=== PATIENT | male | born 1970 | race Caucasian/White ===

== ENCOUNTER 2018-05-28 22:27 | Emergency (ER) | payer BC, SELFPAY ==
[2018-05-28 22:28] VITALS: BP 149/96; PULSE 76; RESP 18; TEMP 35.4; O2SAT 98; BMI 31.7
--- NOTE | 2018-05-28 22:32 | EKG12_ITS ---
Test Reason : CP Blood Pressure : / mmHG Vent. Rate : 078 BPM Atrial Rate : 078 BPM P-R Int : 248 ms QRS Dur : 082 ms QT Int : 364 ms P-R-T Axes : 041 050 055 degrees QTc Int : 414 ms Sinus rhythm with 1st degree A-V block Otherwise normal ECG Confirmed by GREG JONES, ZOHRA ([id number]), food editor SARAH BOLTON ([id number]) on 05/31/2018 11:07:07 AM Referred By: Confirmed By:ZOHRA GARZA MD
--- NOTE | 2018-05-28 22:40 | RAD_ITS ---
STUDY: X-RAY CHEST REASON FOR EXAM: Male, 47 years old. Nausea vomiting fever TECHNIQUE: Single AP portable view of the chest. COMPARISON: January 16, 2016 chest x-ray FINDINGS: There is a spinal catheter demonstrated T8-T9. The lungs are clear and expanded. There is no demonstrated pleural abnormality. Normal size heart. Normal mediastinum and brenda. Normal visualized pulmonary arteries. Normal visualized aortic arch and descending thoracic aorta. Normal visualized thoracic spine. Normal visualized ribs, clavicles, and shoulders. There is no demonstrated abnormality of the visualized soft tissue structures of the upper abdomen. RAD/Chest 1 View (Portable) IMPRESSION: No demonstrated acute cardiopulmonary process. Electronically Signed: Sosa Dinero MD at 23:01 EDT Tel , Service support ,
[2018-05-28 23:18] VITALS: BP 149/82; PULSE 73; RESP 14; O2SAT 98
--- NOTE | 2018-05-28 23:26 | ED.DCSUM_ITS ---
- ER Visit Summary Date of Service: 05/28/18 Chief Complaint: Nausea, diarrhea, headache, body aches History of Present Illness: The patient is a 47 M who states he woke this morning with body aches, nausea and dry heaves. He had a couple episodes of diarrhea and complains of a generalized headache. He has not noted a fever. He states he took ibuprofen several hours ago without improvement. Past history is significant for hypertension and kidney stones. Physical Examination: Blood pressure is 149/96, temperature 95.7, heart rate 76, respiratory rate 18, pulse ox 98% on room air. Patient sitting upright in bed no acute distress. He is nontoxic appearing. Head neck examination normal. Heart is regular rate and rhythm. Lungs sounds are clear. Abdomen is soft with mild tenderness in the left lower quadrant. No guarding or rebound. Active bowel sounds are noted throughout. Neuro exam is normal. Test Results: EKG is sinus at 7 8 with no acute ischemia. Portable chest x-ray shows no acute process. CBC was a white count 11.2 with 83% neutrophils. Chemistry studies normal. Troponin negative. Emergency Department Course and Treatment: Patient was given IV fluids along with Toradol, Reglan, and Benadryl. On repeat evaluation patient is significantly improved and is requesting discharge to home. He denies any pain at this time. I discussed with him I believe he has viral syndrome. He is encouraged to increase fluids. He will be given a home pack of Zofran for tonight as needed. Treatment Plan: [] Disposition: Discharge Impression: 1. Viral syndrome 2. Cephalgia, resolved This note was generated with [employer] dictation software. It may contain incorrect words, spelling, and punctuation that were not noted in review of the chart prior to signing ED Disposition - Plan for ED Patient: Disposition: Home or Assisted Living Instructions: ED Cephalgia Unspecified, ED Gastroenteritis Viral Referrals: Barber Cornejo MD [NON-STAFF] - As Needed
[2018-05-28 23:32] LABS: Absolute Lymphocyte Count 1.09 X10^3/ul (0.83-4.51); Absolute Neutrophil Count 9.3 X10^3/uL (2.0-7.7); Basophil# 0.01 X10^3/uL; Basophil% 0.1 % (0-1); Eosinophil# 0.24 X10^3/uL; Eosinophils% 2.1 % (0-5); Hematocrit 45.7 % (40-54); Hemoglobin 15.2 g/dl (13.0-16.5); Lymphocyte # 1.09 X10^3/ul (4.0); Lymphocyte % 9.7 % (19-41); Mean Corp Hgb Conc 33.3 g/gl (32-36); Mean Corpuscular Hgb 30.3 pg (27.0-32.0); Mean Platelet Vol. 10.6 fl (6.2-12.0); Monocyte# 0.56 X10^3/uL; Neutrophil # 9.29 X10^3/uL (2.7-7.7); Neutrophil % 82.9 % (47-70); POSITIVE COUNT NO; POSITIVE DIFFERENTIAL NO; POSITIVE MORPHOLOGY NO; Platelet Count 264 K/mm3 (150-450); RBC Distribution Width CV 13.1 % (11.6-14.6); RBC Distribution Width SD 42.9 fl (35.1-43.9); Red Blood Count 5.02 M/mm3 (4.6-6.2); White Blood Count 11.2 K/mm3 (4.4-11.0)
[2018-05-28] MEDS: Ketorolac 30 MG/ML Syringe IV (23:34)
[2018-05-28] MEDS: Metoclopramide 10 MG/2 ML Vial IV (23:35)
[2018-05-28] MEDS: 0.9% Normal Saline 1,000 ML 1000 ML IV (23:36)
[2018-05-28] MEDS: DiphenhydrAMINE 50 MG/ML Syringe 25 MG IV (23:36)
[2018-05-28 23:49] LABS: Anion Gap 5 (5-15); BUN 18 mg/dL (7-18); BUN/Creat Ratio 18.9 RATIO (10-20); Calcium,Total 8.4 mg/dL (8.5-10.1); Chloride 109 mmol/L (98-107); Creatinine, Serum 0.95 mg/dL (0.70-1.30); EST Glomerular Filtration Rate 89 mL/min (>60); Est Glom Filt Rate - Afr Amer 108 mL/min (>60); Estimated Creatinine Clearance 97.12 ml/min; Glucose 92 mg/dL (74-106); Potassium 3.9 mmol/L (3.5-5.1); Sodium Level 138 mmol/L (136-145)
[2018-05-29 00:06] VITALS: BP 136/82; PULSE 67; PULSE 72; RESP 16; TEMP 36.8; O2SAT 96; O2SAT 98
--- NOTE | 2018-05-29 00:48 | ED.DEP ---
ED Disposition - Plan for ED Patient: Disposition: Home or Assisted Living Instructions: ED Gastroenteritis Viral, ED Cephalgia Unspecified Referrals: Barber Cornejo MD [NON-STAFF] - As Needed
[2018-05-29] MEDS: 0.9% Normal Saline 1,000 ML 150 ML IV (00:50)
[2018-05-29 00:51] VITALS: BP 146/89; PULSE 72; RESP 16; O2SAT 98
[2018-05-29] MEDS: Ondansetron ODT 4 MG Tablet PO (00:57)
== END 2018-05-29 00:57 | disposition home or self-care (01) ==
PROVIDERS: Emergency Provider Emergency Medicine
DX: B34.9 Viral infection, unspecified (principal); R51 Headache; I10 Essential (primary) hypertension; Z72.0 Tobacco use; Z87.442 Personal history of urinary calculi
CPT/HCPCS: 71045; 80048; 84484; 85025; 93005; 96361; 96374; 96375; 99284; J7030; A4216

== ENCOUNTER 2019-03-27 10:56 | Emergency (ER) | payer BC, SELFPAY ==
[2019-03-27 10:57] VITALS: BP 153/99; PULSE 67; RESP 17; TEMP 36.2; O2SAT 98; BMI 32.5
--- NOTE | 2019-03-27 11:35 | RAD_ITS ---
STUDY: X-RAY - RIGHT FOOT CLINICAL: Male, 48 years old. RT LATERAL FOOT PAIN LAST NIGHT WHILE WORKING, PT STATES IT HURTS TO PUT WEIGHT ON IT. PT DENIES INJURY TECHNIQUE: 3 view(s) of the foot. COMPARISON: None. FINDINGS: Normal talus, calcaneus, and tarsal bones. Normal visualized subtalar, talonavicular, calcaneocuboid, tarsal and tarsometatarsal articulations. Normal metatarsi. Normal metatarsophalangeal joint of the great toe. Normal tibial and fibular sesamoid bones. Normal interphalangeal joint of the great toe. Normal phalanges of the great toe. Normal second through fifth metatarsophalangeal joints. Normal interphalangeal joints and phalanges of the lesser toes. The soft tissue structures are unremarkable. RAD/Foot min 3 Views IMPRESSION: Normal x-ray examination of the foot. Electronically Signed: Julio Cesar Denson DO at 12:19 EST Tel , Service support ,
[2019-03-27] MEDS: Ibuprofen 600 MG Tablet PO (11:38)
--- NOTE | 2019-03-27 11:41 | ED.VIS.LOWEX ---
History of Present Illness Chief Complaint: Lower Extremity Injury Informant: Patient Occurred: Days Narrative: Patient is a 48-year-old male with history of untreated hypertension presenting with right foot pain. Patient states he has had some problems with his right foot for the past few years however for the past week he has had worsening pain. Last night while he was working the pain became significantly worse and he could not sleep through the night because the pain was so bad. Patient been taken Tylenol for the pain with no significant relief. The pain is throbbing in nature and does not radiate. It is worse when he tries to move or walk on it. Patient did get new shoes for work because he was having pain. These have not helped. Patient denies any injury. He denies any swelling of his leg. He denies any other complaints at this time. Patient is had multiple surgeries on his left knee and states that he does favor his left leg and seems to put more pressure on his right when doing activities. Past Medical History - Allergies and Home Meds Allergies/Adverse Reactions: Allergies aspirin Adverse Reaction (Verified 03/27/19 10:56) Nausea/Vom/Diarrhea Primary Care Physician: Care Physician,No Primary [Primary Care Provider] - Past Medical History: - - Hypertension Surgical History: - - L knee ACL x 3, R knee serial scopes, Nasal reconstruction, L elbow surgery, R inguinal hernia repair, L hand surery, spinal cord stimulator. Smoking Status: Current every day smoker - Family History Maternal Family History: Reports: No pertinent history Paternal Family History: Reports: No pertinent history Review of Systems General: Denies: Chills, Fever, Sweats Eyes: Denies: Visual changes - bilaterally, Diplopia ENT: Denies: Rhinorrhea, Sore throat Cardiovascular: Denies: Chest pain, Palpitations Respiratory: Denies: Dyspnea, Cough, Dyspnea on exertion Gastrointestinal: Denies: Abdominal pain, Nausea, Vomiting, Diarrhea, Melena, Hematochezia Genitourinary: Denies: Dysuria, Hematuria, Frequency Musculoskeletal: Reports: Extremity Pain - Right foot. Denies: Back pain Skin: Denies: Rash, Wounds Neurological: Denies: Headache, Weakness, Numbness Physical Exam Vital Signs/Narrative: Vital Signs Temp Pulse Resp BP Pulse Ox 03/27/19 10:57 97.2 F L 67 17 153/99 H 98 Inital Vital Signs reviewed: Yes - Extremity Exam Right Knee: Negative for: Deformity, Edema, Hematoma, Limited ROM Right Tib fib: - - No fibular head tenderness. Negative for: Deformity, Edema, Limited ROM Right Foot: Negative for: Deformity, Edema, Hematoma, Limited ROM Right Toe: - - Patient has a 3 cm circumferential area of ecchymosis of the lateral midfoot. He has pinpoint tenderness to palpation at the head of the fifth metatarsal.. Negative for: Deformity, Limited ROM General: Well nourished, Well developed Head: Normocephalic, Atraumatic Eyes: Perrl, EOMI ENT: No Trauma, Moist Mucous Membranes Neck: Nontender, Full ROM Cardiovascular: Regular rate, Regular rhythm, No murmurs Respiratory: No distress, CTA bilaterally, Chest nontender Abdomen: Soft, Nontender, Nondistended, Normal bowel sounds Back: Nontender Skin: Normal color, No rash Neurological: Alert, Oriented x3, Cranial nerves II-XII grossly intact, Normal Strength, Normal Sensation Psychological: Normal affect Diagnostic/Tx/Re-eval Clinical Impression(s) from Imaging Studies Foot X-Ray 03/27/19 11:35 IMPRESSION: Normal x-ray examination of the foot. Electronically Signed: Julio Cesar Denson DO at 12:19 EST Tel , Service support , - Medical Decision Making Patient is evaluated for atraumatic right foot pain. Has had a small amount of bruising. X-ray does not show any acute fracture. Patient is not have any warmth over the foot I do not suspect gout or septic joint. He does not have any obvious deformity. Likely this is a soft tissue injury. Patient is counseled on the risk of occult fracture. He will be referred to [facility] to follow-up with podiatry. Patient will also call his own orthopedics office to see if he has podiatry. He will be placed in a postop shoe for comfort. It is possible that his pain was exacerbated by his new shoes. He is given a work note for today and tomorrow. He is counseled on rice therapy. He started on Motrin for pain and anti-inflammatory treatment. Patient is counseled on signs and symptoms requiring return to the emergency room. Patient verbalizes agreement and understand this plan. Patient discharged home in stable and improved condition. ED Disposition - Plan for ED Patient: Disposition: Home or Assisted Living Diagnosis: Right foot strain Instructions: Sprain Foot Prescriptions: Ibuprofen [Motrin] 600 mg PO Q6H PRN PRN #20 tab PRN Reason: Pain/Inflammation Prescription Printed Referrals: Karena Murphy DPM [STAFF PHYSICIAN] - Riya Anderson DPM [STAFF PHYSICIAN] - Additional Instructions: Please follow-up with podiatry as needed for your foot pain. You been given information for 2 different podiatry group. Treat this with rice therapy, rest, ice, compression and elevation. Take anti-inflammatories as needed. You might need to switch shoes.
== END 2019-03-27 13:25 | disposition home or self-care (01) ==
PROVIDERS: Emergency Provider Emergency Medicine
DX: S96.911A Strain of unspecified muscle and tendon at ankle and foot level, right foot, initial encounter (principal); X58.XXXA Exposure to other specified factors, initial encounter; Y92.9 Unspecified place or not applicable; Y99.9 Unspecified external cause status; F17.200 Nicotine dependence, unspecified, uncomplicated; I10 Essential (primary) hypertension; Z88.6 Allergy status to analgesic agent
CPT/HCPCS: 73630; 99283

== ENCOUNTER 2019-12-07 19:59 | Emergency (ER) | payer SELFPAY ==
[2019-12-07 20:00] VITALS: BP 188/114; PULSE 94; RESP 16; TEMP 36.9; O2SAT 100; BMI 34.2
--- NOTE | 2019-12-07 20:47 | ED.DCSUM_ITS ---
History of Present Illness Chief Complaint: Fever Informant: Patient Narrative: Patient is a 49-year-old previously healthy male who presents to the emergency department for right-sided headache and facial swelling. His initial symptoms started 2 to 3 days ago but have been progressively getting worse. He started to notice some swelling around the right eye. He believes that his vision has gotten slightly blurred as well. He has had a low-grade fever of 99-100 he has been taking Tylenol for this. Initially was giving him good relief with the headache but it is now not treating it. He currently rates the pain as a 9 out of 10. Denies ever having this before in the past. He denies any history of shingles. He has been feeling mildly short of breath denies any significant cough. He is a current every day smoker. He denies any leg swelling or calf pain. No chest pain associated with this. No known sick contacts. He has had a few episodes of diarrhea starting today. No vomiting. He denies any trauma. Past Medical History - Allergies and Home Meds Allergies/Adverse Reactions: Allergies aspirin Adverse Reaction (Verified 12/07/19 20:00) Nausea/Vom/Diarrhea Primary Care Physician: Care Physician,No Primary [Primary Care Provider] - 2 Days Prior records reviewed: Yes Surgical History: - - L knee ACL x 3, R knee serial scopes, Nasal reconstruction, L elbow surgery, R inguinal hernia repair, L hand surery, spinal cord stimulator. Smoking Status: Current every day smoker Drugs: None - Family History Maternal Family History: Reports: No pertinent history Paternal Family History: Reports: No pertinent history Review of Systems General: Reports: Fever. Denies: Chills, Sweats Eyes: Reports: Blurred vision - right. Denies: Visual changes - bilaterally, Diplopia ENT: Denies: Rhinorrhea, Sore throat Cardiovascular: Denies: Chest pain, Palpitations Respiratory: Reports: Dyspnea. Denies: Cough Gastrointestinal: Reports: Diarrhea. Denies: Abdominal pain, Nausea, Vomiting Genitourinary: Denies: Dysuria, Hematuria, Frequency Musculoskeletal: Denies: Back pain, Extremity Pain Skin: Denies: Rash, Wounds Neurological: Reports: Headache. Denies: Weakness, Numbness Physical Exam Vital Signs/Narrative: Vital Signs Temp Pulse Resp BP Pulse Ox 12/07/19 20:00 98.5 F 94 16 188/114 H 100 Inital Vital Signs reviewed: Yes General: Well nourished, Well developed, No Acute Distress Head: Normocephalic, Atraumatic, Tenderness - Tenderness over the right temporal region. This is erythematous. No significant warmth., - - Mild swelling from right temporal region to right orbit. Sclera not injected. No foreign body sensation. Eyes: Perrl, EOMI ENT: Moist mucous membranes, No rhinorrhea Neck: Supple, Nontender Cardiovascular: Regular rate, Regular rhythm, No murmurs Respiratory: No distress, CTA bilaterally, Chest nontender Abdomen: Soft, Nontender, Nondistended, Normal bowel sounds Back: Nontender, Normal Inspection Extremities: Nontender, No edema Skin: Normal color, No rash Neurological: Alert, Oriented x3, Cranial nerves II-XII grossly intact, Normal Strength, Normal Sensation Psychological: Normal affect, Normal Mood Diagnostic/Tx/Re-eval - Medical Decision Making Patient presents the ED for headache, facial swelling as well as shortness of breath. Upon arrival to the emergency department he is hypertensive but otherwise has normal vital signs. Will check basic lab work along with ESR/CRP, EKG and chest x-ray. Patient's lab work did not reveal any significant acute abnormality. ESR within normal limits. His CRP is very mildly elevated. White blood cell count within normal limits. Chest x-ray did not reveal any acute cardiopulmonary abnormality. He got complete relief with a dose of Toradol. States he is feeling much better at this time. I have some concern for facial cellulitis. No evidence of orbital cellulitis given no pain with eye movements. Will cover with Keflex and Bactrim. Given first dose here in the ED. He needs to follow- up with his PCP for recheck. Warning signs and symptoms for which to return to the ED are reviewed with him. He understands and is agreeable this plan. Patient discharged home in stable condition. ED Disposition - Plan for ED Patient: Disposition: Home or Assisted Living Diagnosis: Facial cellulitis, Headache, Dyspnea Instructions: ED Cellulitis, ED Dyspnea Prescriptions: Smz/Tmp Ds [Bactrim Ds] 2 tab PO BID 10 Days #40 tab Prescription Printed Cephalexin [Keflex] 500 mg PO 4X/DAY 10 Days #40 cap Prescription Printed Referrals: Care Physician,No Primary [Primary Care Provider] - 2 Days
[2019-12-07] MEDS: Ketorolac 30 MG/ML Syringe IV (20:55)
[2019-12-07 21:12] LABS: Absolute Lymphocyte Count 3.09 X10^3/uL (0.83-4.51); Absolute Neutrophil Count 5.6 X10^3/uL (2.0-7.7); Basophil# 0.13 X10^3/uL; Basophil% 1.3 % (0-1); Eosinophil# 0.38 X10^3/uL; Eosinophils% 3.8 % (0-5); Hematocrit 44.6 % (40-54); Hemoglobin 15.2 g/dL (13.0-16.5); Lymphocyte # 3.09 X10^3/ul (4.0); Lymphocyte % 30.6 % (19-41); Mean Corp Hgb Conc 34.1 g/dL (32-36); Mean Corpuscular Hgb 30.1 pg (27.0-32.0); Mean Corpuscular Volume 88.3 fL (80-94); Mean Platelet Vol. 10.1 fl (6.2-12.0); Monocyte# 0.91 X10^3/uL; NRBC Flagged by Analyzer 0 % (0-5); Neutrophil # 5.55 X10^3/uL (2.7-7.7); Neutrophil % 54.9 % (47-70); Platelet Count 345 K/mm3 (150-450); RBC Distribution Width CV 12.5 % (11.6-14.6); RBC Distribution Width SD 41.1 fl (35.1-43.9); Red Blood Count 5.05 M/mm3 (4.6-6.2); White Blood Count 10.1 K/mm3 (4.4-11.0)
[2019-12-07 21:19] LABS: Erythrocyte Sedimentation Rate 9 mm/hr (0-20)
[2019-12-07 21:25] LABS: Anion Gap 7 (5-15); BUN 17 mg/dL (7-18); CRP 3.56 mg/L (0.0-3.0); Calcium,Total 8.7 mg/dL (8.5-10.1); Chloride 107 mmol/L (98-107); Creatinine, Serum 1.13 mg/dL (0.70-1.30); EST Glomerular Filtration Rate 73 mL/min (>60); Est Glom Filt Rate - Afr Amer 88 mL/min (>60); Estimated Creatinine Clearance 79.85 ml/min; Glucose 103 mg/dL (74-106); Potassium 3.8 mmol/L (3.5-5.1); Sodium Level 140 mmol/L (136-145)
[2019-12-07 21:54] LABS: Probe Check PASS; Specimen Processing Control PASS
--- NOTE | 2019-12-07 21:54 | RAD_ITS ---
HISTORY: Shortness of breath, fever, headache. EXAM: XR Chest 1 View: COMPARISON: May 28, 2018 FINDINGS: # of images incl. paperwork: 1 Epidural stimulation lead remains Some linear basilar airspace disease on the left is new and likely discoid atelectasis Lungs are clear. Heart is not enlarged. No acute osseous pathology perceived. Pulmonary vascularity is distinct. No effusions. RAD/Chest 1 View (Portable) IMPRESSION: No acute cardiopulmonary disease perceived but for minimal left basilar suspected atelectasis. at 2227 Reported and signed by: Vasiliy Jackson MD Electronically Signed: Vasiliy Jackson MD at 22:26 EDT Tel , Service support ,
[2019-12-07 22:41] VITALS: BP 182/110; PULSE 76; RESP 15; TEMP 37.1; O2SAT 97
[2019-12-07] MEDS: Smz/Tmp Ds Tablet 2 TABLET PO (22:44)
[2019-12-07] MEDS: Cephalexin 250 MG Capsule 500 MG PO (22:44)
== END 2019-12-07 22:51 | disposition home or self-care (01) ==
PROVIDERS: Emergency Provider Emergency Medicine
DX: L03.211 Cellulitis of face (principal); R51 Headache; R06.00 Dyspnea, unspecified; F17.200 Nicotine dependence, unspecified, uncomplicated; Z88.6 Allergy status to analgesic agent
CPT/HCPCS: 71045; 80048; 84484; 85025; 85652; 86140; 87635; 96374; 99284; C9803; A4216; U0003

== ENCOUNTER 2021-06-26 21:01 | Emergency (ER) | payer SELFPAY ==
[2021-06-26 21:02] VITALS: BP 221/99; PULSE 95; RESP 16; TEMP 36.7; O2SAT 97; BMI 34.3
--- NOTE | 2021-06-26 21:28 | CT_ITS ---
EXAM: CT ABDOMEN AND PELVIS WITHOUT INTRAVENOUS CONTRAST CLINICAL INDICATION: PELVIC PAIN AND FREQUENT URINATION X 2 DAYS, TECHNIQUE: Helically acquired images were obtained of the abdomen and pelvis without intravenous contrast. This CT exam was performed using one or more of the following dose reduction techniques: automated exposure control, adjustment of the mA and/or kV according to patient size, and/or use of iterative reconstruction technique. This report was created using [employer] report generation technology. COMPARISON: None. FINDINGS: LOWER THORAX: Unremarkable. Lung bases are clear. No cardiomegaly. No significant pericardial effusion. ABDOMEN: LIVER: Unremarkable. Homogeneous. GALLBLADDER AND BILE DUCTS: Unremarkable. No calcified gallstones. No gallbladder distention or wall edema. No intra- or extrahepatic biliary ductal dilation. PANCREAS: Unremarkable. No focal cystic mass. SPLEEN: Unremarkable. Normal size without focal cystic or solid mass. ADRENALS: Unremarkable. No nodules. KIDNEYS AND URETERS: Punctate calculi in the bilateral kidneys. Normal renal size and position. No hydronephrosis. Left renal cyst. No required imaging follow-up needed given high likelihood of benign nature. STOMACH AND BOWEL: Sigmoid colon diverticulosis with colon wall thickening and pericolonic stranding. No stomach or bowel distention. PELVIS: APPENDIX: No evidence of acute appendicitis. BLADDER: Unremarkable. REPRODUCTIVE: Prostate calcifications. ABDOMEN and PELVIS: INTRAPERITONEAL SPACE: Unremarkable. No ascites or other fluid collection. No free air. BONES/JOINTS: Degenerative changes of the lumbar spine. No suspicious lytic or blastic abnormality. SOFT TISSUES: Unremarkable. No discrete abdominal or pelvic wall hernia. VASCULATURE: Atherosclerosis of the abdominal aorta. Abdominal aorta is non-dilated. LYMPH NODES: Unremarkable. No enlarged lymph nodes. TUBES, LINES AND DEVICES: Neurostimulator device noted. CT/Abdomen/Pelvis without Cont IMPRESSION: 1. Sigmoid diverticulitis. No abscess or pneumoperitoneum. 2. Punctate calculi in the bilateral kidneys. No hydronephrosis or ureteral calculi. Electronically Signed: Kashif Murguia MD ([place]oks) at 22:40 EDT Reading Location ID and State: [facility] / [place] , Service support ,
[2021-06-26] MEDS: Ondansetron 4 MG/2 ML Vial IV (21:47)
[2021-06-26] MEDS: 0.9% Normal Saline 1,000 ML 1000 ML IV (21:48)
[2021-06-26] MEDS: HYDROmorphone 1 MG/ML Syringe IV ×2 (21:48→23:10)
[2021-06-26 21:54] LABS: Bacteria 0 SEEN /hpf (None Seen); Mucous, Urine 0 SEEN /hpf (<or=2+)
[2021-06-26 21:54] LABS: Absolute Neutrophil Count 11.9 X10^3/uL (2.0-7.7); Basophil% 0.6 % (0-1); Eosinophil# 0.27 X10^3/uL; Eosinophils% 1.7 % (0-5); Hematocrit 41.5 % (40-54); Hemoglobin 14.5 g/dL (13.0-16.5); Lymphocyte % 12.9 % (19-41); Mean Corp Hgb Conc 34.9 g/dL (32-36); Mean Corpuscular Volume 88.7 fL (80-94); Mean Platelet Vol. 10.3 fl (6.2-12.0); Monocyte# 1.23 X10^3/uL; Monocyte% 7.9 % (0-10); NRBC Flagged by Analyzer 0 % (0-5); Neutrophil # 11.87 X10^3/uL (2.7-7.7); Neutrophil % 76.4 % (47-70); Platelet Count 275 K/mm3 (150-450); RBC Distribution Width CV 12.6 % (11.6-14.6); Red Blood Count 4.68 M/mm3 (4.6-6.2); White Blood Count 15.6 K/mm3 (4.4-11.0)
[2021-06-26 21:59] LABS: Color, Urine Yellow (Yellow); Glucose, Dipstick Normal (Normal); Ketone-Dipstick Negative (Negative); Leukocyte Esterase-Dipstick Negative /ul (Negative); Nitrite-Dipstick Negative (Negative); Occult Blood-Urine Negative /ul (Negative); Protein-Dipstick 30 mg/dl (Negative); Urine Bilirubin Dipstick Negative (Negative); Urine Clarity Clear (Clear); Urine Urobilinogen Normal (Normal)
[2021-06-26] MEDS: Labetalol (Prefilled) 20 MG/4 ML IV (21:59)
[2021-06-26 22:06] VITALS: BP 191/106; PULSE 75; RESP 13; TEMP 36.7; O2SAT 98
[2021-06-26 22:10] VITALS: BP 191/106; PULSE 75; RESP 18; O2SAT 93
[2021-06-26 22:19] LABS: Anion Gap 6 (5-15); BUN 20 mg/dL (7-18); BUN/Creat Ratio 21.7 RATIO (10-20); Calcium,Total 9.5 mg/dL (8.5-10.1); Chloride 106 mmol/L (98-107); Creatinine, Serum 0.92 mg/dL (0.70-1.30); EST Glomerular Filtration Rate 91 mL/min (>60); Est Glom Filt Rate - Afr Amer 110 mL/min (>60); Estimated Creatinine Clearance 96.98 ml/min; Glucose 108 mg/dL (74-106); Potassium 3.9 mmol/L (3.5-5.1); Sodium Level 137 mmol/L (136-145)
[2021-06-26 22:19] LABS: Squamous Epithelial Cells - UA 0-5 SEEN /hpf (0-5); White Blood Cells 0-5 SEEN /hpf (0-5)
[2021-06-26 22:21] LABS: Red Blood Cells-Urine 0-5 SEEN /hpf (0-5)
[2021-06-26 23:00] VITALS: BP 154/88; PULSE 78; RESP 18; TEMP 36.9; O2SAT 98
--- NOTE | 2021-06-26 23:04 | EDS_ITS ---
HPI History of Present Illness Chief Complaint: Abd Pain Informant: patient Onset/Context/Timing Onset: Days (2) Context: Gradual Onset Location: lower abdomen Maximum Severity: Severe Worsened by: nothing Relieved by: nothing Associated Symptoms Associated Symptoms: multiple BMs per day Narrative Narrative: Patient presents for lower abdominal pain for 2 days. He thought he might have a urinary tract infection. He was also worried because he has a history of kidney stones. He has multiple bowel movements per day. Nonbloody. No fevers. No other associated symptoms. Prior similar symptoms: No Recent Illness/Hospitalization: No PFSH PFSH Home Medications amoxicillin-pot clavulanate 1 tab PO Q8H #30 tab 06/26/21 [Rx Last Taken Unknown] lisinopril 10 mg PO DAILY #30 tab 06/26/21 [Rx Last Taken Unknown] ondansetron 4 mg PO Q8H PRN PRN #10 tab 06/26/21 [Rx Last Taken Unknown] oxycodone-acetaminophen [Percocet] 1 tab PO Q6H PRN 3 Days #12 tab 06/26/21 [Rx Last Taken Unknown] Allergy/AdvReac Type Severity Reaction Status Date / Time aspirin AdvReac Nausea/Vom/ Verified 06/26/21 21:02 Diarrhea Social History Smoking Status: Current every day smoker tobacco type: cigarettes ROS ROS ED Constitutional Constitutional ED: Denies fever(s) Eyes Eyes: Denies change in vision ENT ENT ED: Denies ear pain Cardiovascular Cardiovascular: Denies chest pain Respiratory/Chest Respiratory/Chest: Denies dyspnea Gastrointestinal Gastrointestinal: Reports abdominal pain; Denies constipation, diarrhea, melena, nausea or vomiting Genitourinary Genitourinary ED: Reports urinary frequency; Denies dysuria or hematuria Musculoskeletal Musculoskeletal: Denies myalgias Integumentary Denies rash Neurologic Neurologic: Denies headache(s) Psychiatric Psychiatric: Denies depression Endocrine Endocrinology: Denies polyuria Allergic/Immunologic Allergic/Immunologic ED: Denies urticaria EXAM Physical Exam Const Vital Signs: 06/26/21 21:02 06/26/21 22:06 06/26/21 22:10 Temperature 98.0 F 98.1 F Temperature Source Temporal Temporal Pulse Rate 95 75 75 Respiratory Rate 16 13 18 Blood Pressure 221/99 H 191/106 H 191/106 H Blood Pressure Mean 139 134 134 Pulse Ox 97 98 93 Oxygen Delivery Method Room Air Room Air Room Air Positive well nourished and well developed General Appearance ED: well developed HEENT Negative for trauma Eyes EOMs intact bilaterally Neck supple Resp normal respiratory effort Cardio regular rate GI normal to inspection, nondistended, normoactive bowel sounds Palpation: tender LLQ, RLQ and suprapubic Back/Spine no CVA tenderness Extremity normal to inspection Neuro oriented x3 Sensorium / Orientation: alert Psych mental status grossly normal Skin no rashes or lesions noted MDM MDM MDM Narrative Medical decision making narrative: Patient had a white count of 15.6. No other signs of sepsis. He often has a bit of a leukocytosis. No further sepsis testing was performed such as lactic acid or blood cultures based on the above. His urine was clear. His CT showed diverticulitis without complication. Patient was treated with pain medicine here. Findings were discussed with him. He would like to try outpatient therapy. We will start him on Augmentin as well as pain and nausea medication. Patient was referred to GI and primary care for follow-up. Return for any new or worsening issues. Patient also had an initial blood pressure of 221/99. He was treated with labetalol here and his repeat was 169/88. He was previously on lisinopril, and we will restart that. Follow-up with primary care for recheck. Impression #1 diverticulitis Impression #2 hypertension Impression #3 leukocytosis Disposition is discharge home in stable condition Lab Data Attestation: I reviewed the patient's lab results. Labs: Laboratory Results - last 24 hr 06/26/21 06/26/21 06/26/21 21:10 21:45 21:45 WBC 15.6 H RBC 4.68 Hgb 14.5 Hct 41.5 MCV 88.7 MCH 31.0 MCHC 34.9 RDW Std Deviation 41.0 RDW Coeff of Shin 12.6 Plt Count 275 MPV 10.3 Immature Gran % (Auto) 0.500 Neut % (Auto) 76.4 H Lymph % (Auto) 12.9 L [place] % (Auto) 7.9 Eos % (Auto) 1.7 Baso % (Auto) 0.6 Absolute Neuts (auto) 11.9 H Absolute Lymphs (auto) 2.00 Nucleated RBC % 0 Sodium 137 Potassium 3.9 Chloride 106 Carbon Dioxide 25.0 Anion Gap 6 BUN 20 H Creatinine 0.92 Estim Creat Clear Calc 96.98 Est GFR (MDRD) Af Amer 110 Est GFR (MDRD) Non-Af 91 BUN/Creatinine Ratio 21.7 H Glucose 108 H Calcium 9.5 Urine Color Yellow Urine Clarity Clear Urine pH 6.0 Ur Specific [place] 1.010 Urine Protein 30 H Urine Glucose (UA) Normal Urine Ketones Negative Urine Occult Blood Negative Urine Nitrite Negative Urine Bilirubin Negative Urine Urobilinogen Normal Ur Leukocyte Esterase Negative Urine RBC 0-5 SEEN Urine WBC 0-5 SEEN Ur Squamous Epith Cells 0-5 SEEN Urine Bacteria 0 SEEN Urine Mucus 0 SEEN Radiography Diagnostic Testing: Clinical Impression(s) from Imaging Studies Abdomen/Pelvis CT 06/26/21 21:28 IMPRESSION: 1. Sigmoid diverticulitis. No abscess or pneumoperitoneum. 2. Punctate calculi in the bilateral kidneys. No hydronephrosis or ureteral calculi. Electronically Signed: Kashif Murguia MD ([place]) at 22:40 EDT Reading Location ID and State: [facility] / [place] , Service support , Discharge Plan Triage Chief Complaint: Abd Pain ED Provider: Nilay Oneill Dx/Rx/DC Orders Instructions: ED Diverticulitis, ED High Blood Pressure Hypertension Prescriptions: New amoxicillin-pot clavulanate 875-125 mg tablet 1 tab PO Q8H Qty: 30 RF: 0 oxycodone-acetaminophen [Percocet] 5-325 mg tablet 1 tab PO Q6H PRN (Reason: pain) 3 Days Qty: 12 RF: 0 ondansetron 4 mg tablet,disintegrating 4 mg PO Q8H PRN PRN (Reason: Nausea) Qty: 10 RF: 0 lisinopril 10 mg tablet 10 mg PO DAILY Qty: 30 RF: 0 Primary Care Provider: Care Physician,No Primary Referrals: Barber Brown MD [STAFF PHYSICIAN] - Friend,DO Darrell [STAFF PHYSICIAN] - Disposition Disposition: Home, Self Care
[2021-06-26] MEDS: Amox/Clavulanate 875 MG Tablet PO (23:10)
== END 2021-06-26 23:26 | disposition home or self-care (01) ==
PROVIDERS: Emergency Provider Emergency Medicine; Visit Provider Emergency Medicine
DX: K57.32 Diverticulitis of large intestine without perforation or abscess without bleeding (principal); F17.210 Nicotine dependence, cigarettes, uncomplicated; N20.0 Calculus of kidney
CPT/HCPCS: 74176; 80048; 81001; 85025; 96361; 96374; 96375; 99283; J7030; A4216; J2405

== ENCOUNTER 2021-06-30 14:31 | Emergency (ER) | payer SELFPAY ==
[2021-06-30 14:32] VITALS: BP 174/123; PULSE 88; RESP 14; TEMP 36.2; O2SAT 99; BMI 34.1
--- NOTE | 2021-06-30 14:49 | EX.ED.DYSGE1 ---
HPI History of Present Illness Chief Complaint: Abd Pain Informant: patient Onset/Context/Timing Onset: Days Context: Gradual Onset Timing: Waxes and wanes Current Severity: Moderate Maximum Severity: Moderate Narrative Narrative: Patient returns to the ER for continued abdominal pain. He was seen in the ER last Monday with a 2-day history of lower abdominal pain and frequent urination. He was found to have diverticulitis. He was treated with Augmentin and analgesics. He is currently out of his pain medication. Has been trying Tylenol without improvement. He was referred to Dr. Brown for follow-up but apparently he is out of the office and patient cannot be seen until July 19. He presents back today due to the continued pain that is not controlled with [id number] pain medication. He does report that he has had some diarrhea the last couple days which may be secondary to the Augmentin. No fever or chills. [facility] Medical History Anxiety and depression Diverticulitis Nephrolithiasis Osteoarthritis Home Medications amoxicillin-pot clavulanate 1 tab PO Q8H #30 tab 06/26/21 [Rx Last Taken Unknown] lisinopril 10 mg PO DAILY #30 tab 06/26/21 [Rx Last Taken Unknown] ondansetron 4 mg PO Q8H PRN PRN #10 tab 06/26/21 [Rx Last Taken Unknown] hydrocodone-acetaminophen 1 tab PO Q6H PRN 5 Days #20 tab 06/30/21 [Rx Last Taken Unknown] Allergy/AdvReac Type Severity Reaction Status Date / Time aspirin AdvReac Nausea/Vom/ Verified 06/30/21 14:34 Diarrhea Social History Smoking Status: Current every day smoker tobacco type: cigarettes ROS ROS ED Constitutional Constitutional ED: Denies chills or fever(s) Eyes Eyes: Denies change in vision ENT ENT ED: Denies sore throat Cardiovascular Cardiovascular: Denies chest pain Respiratory/Chest Respiratory/Chest: Denies cough or dyspnea Gastrointestinal Gastrointestinal: Reports abdominal pain and diarrhea; Denies nausea or vomiting Genitourinary Genitourinary ED: Denies dysuria Musculoskeletal Musculoskeletal: Denies back pain or neck pain Integumentary Denies rash Neurologic Neurologic: Denies headache(s) or weakness Allergic/Immunologic Allergic/Immunologic ED: Denies urticaria EXAM Physical Exam Const Vital Signs: 06/30/21 14:32 06/30/21 16:38 Temperature 97.2 F L Temperature Source Temporal Pulse Rate 88 81 Respiratory Rate 14 16 Blood Pressure 174/123 H 175/85 H Blood Pressure Mean 140 115 Pulse Ox 99 98 Oxygen Delivery Method Room Air Room Air Positive well nourished and well developed General Appearance ED: well developed HEENT Reports moist mucous membranes Eyes PERRL and EOMs intact bilaterally Neck supple Chest Wall inspection of chest normal and palpation of chest normal Resp normal respiratory effort and clear to auscultation bilaterally Cardio regular rate and regular rhythm GI Palpation: soft and tender LLQ (Moderate left lower quadrant tenderness.) Extremity normal to inspection Neuro oriented x3 Sensorium / Orientation: alert Psych mental status grossly normal Skin no rashes or lesions noted MDM MDM MDM Narrative Medical decision making narrative: Patient was given morphine and Zofran. Due to the degree of tenderness on exam repeat labs and CT scan performed. Lab Data Attestation: I reviewed the patient's lab results. Labs: Laboratory Results - last 24 hr 06/30/21 06/30/21 06/30/21 14:53 14:53 15:15 WBC 10.6 RBC 4.86 Hgb 15.1 Hct 42.8 MCV 88.1 MCH 31.1 MCHC 35.3 RDW Std Deviation 39.8 RDW Coeff of Shin 12.2 Plt Count 345 MPV 10.4 Immature Gran % (Auto) 0.400 Neut % (Auto) 63.9 Lymph % (Auto) 22.5 [place] % (Auto) 7.5 Eos % (Auto) 4.6 Baso % (Auto) 1.1 H Absolute Neuts (auto) 6.8 Absolute Lymphs (auto) 2.39 Nucleated RBC % 0 Sodium 138 Potassium 4.0 Chloride 106 Carbon Dioxide 27.0 Anion Gap 5 BUN 18 Creatinine 0.99 Estim Creat Clear Calc 90.12 Est GFR (MDRD) Af Amer 102 Est GFR (MDRD) Non-Af 84 BUN/Creatinine Ratio 18.1 Glucose 110 H Calcium 8.9 Urine Color Yellow Urine Clarity Clear Urine pH 6.0 Ur Specific [place] 1.020 Urine Protein 30 H Urine Glucose (UA) Normal Urine Ketones Negative Urine Occult Blood Negative Urine Nitrite Negative Urine Bilirubin Negative Urine Urobilinogen Normal Ur Leukocyte Esterase Negative Urine RBC 0 SEEN Urine WBC 0-5 SEEN Ur Squamous Epith Cells 0-5 SEEN Urine Bacteria 0 SEEN Urine Mucus 0 SEEN Radiography Diagnostic Testing: Clinical Impression(s) from Imaging Studies Abdomen/Pelvis CT 06/30/21 16:15 IMPRESSION: 1. Improving sigmoid diverticulitis. 2. Mild hepatic steatosis. 3. 2 mm left renal stone. Individualized dose optimization techniques were used for this CT. at 1634 Reported and signed by: Dionicio Thompson MD Electronically Signed: Dionicio Thompson MD at 16:33 EDT , Treatment and Re-Evaluation Narrative: Lab work is improving with normalization of white count. CT scan reveals improving evidence of diverticulitis with no evidence of perforation or abscess. Test results discussed with patient and at bedside. He will be given a new prescription for analgesics. Return instructions provided. Discharge Plan Triage Chief Complaint: Abd Pain ED Provider: Magda Calderón Dx/Rx/DC Orders Clinical Impression: Diverticulitis, Hypertension Instructions: ED Diverticulitis, ED Hypertension, To Be Confirmed Prescriptions: New hydrocodone-acetaminophen 5-325 mg tablet 1 tab PO Q6H PRN (Reason: pain) 5 Days Qty: 20 RF: 0 No Action amoxicillin-pot clavulanate 875-125 mg tablet 1 tab PO Q8H Qty: 30 RF: 0 ondansetron 4 mg tablet,disintegrating 4 mg PO Q8H PRN PRN (Reason: Nausea) Qty: 10 RF: 0 lisinopril 10 mg tablet 10 mg PO DAILY Qty: 30 RF: 0 Stand Alone Forms: ED Work / School Excuse Primary Care Provider: Barber Brown Referrals: Barber Brown MD [Primary Care Provider] - Keep [facility] appointment Disposition Disposition: Home, Self Care
[2021-06-30] MEDS: Ondansetron 4 MG/2 ML Vial IV (14:51)
[2021-06-30] MEDS: Morphine 4 MG/ML Syringe IV (14:51)
[2021-06-30] MEDS: 0.9% Normal Saline 1,000 ML 150 ML IV (14:55)
[2021-06-30 15:07] LABS: Absolute Lymphocyte Count 2.39 X10^3/uL (0.83-4.51); Absolute Neutrophil Count 6.8 X10^3/uL (2.0-7.7); Basophil# 0.12 X10^3/uL; Basophil% 1.1 % (0-1); Eosinophil# 0.49 X10^3/uL; Eosinophils% 4.6 % (0-5); Hematocrit 42.8 % (40-54); Hemoglobin 15.1 g/dL (13.0-16.5); Lymphocyte # 2.39 X10^3/ul (0.83-4.51); Lymphocyte % 22.5 % (19-41); Mean Corp Hgb Conc 35.3 g/dL (32-36); Mean Corpuscular Hgb 31.1 pg (27.0-32.0); Mean Corpuscular Volume 88.1 fL (80-94); Mean Platelet Vol. 10.4 fl (6.2-12.0); Monocyte% 7.5 % (0-10); NRBC Flagged by Analyzer 0 % (0-5); Neutrophil # 6.76 X10^3/uL (2.7-7.7); Neutrophil % 63.9 % (47-70); Platelet Count 345 K/mm3 (150-450); RBC Distribution Width CV 12.2 % (11.6-14.6); RBC Distribution Width SD 39.8 fl (35.1-43.9); Red Blood Count 4.86 M/mm3 (4.6-6.2); White Blood Count 10.6 K/mm3 (4.4-11.0)
[2021-06-30 15:14] LABS: Anion Gap 5 (5-15); BUN 18 mg/dL (7-18); BUN/Creat Ratio 18.1 RATIO (10-20); Calcium,Total 8.9 mg/dL (8.5-10.1); Chloride 106 mmol/L (98-107); Creatinine, Serum 0.99 mg/dL (0.70-1.30); EST Glomerular Filtration Rate 84 mL/min (>60); Est Glom Filt Rate - Afr Amer 102 mL/min (>60); Estimated Creatinine Clearance 90.12 ml/min; Glucose 110 mg/dL (74-106); Sodium Level 138 mmol/L (136-145)
[2021-06-30 15:22] LABS: Bacteria 0 SEEN /hpf (None Seen); Mucous, Urine 0 SEEN /hpf (<or=2+); Red Blood Cells-Urine 0 SEEN /hpf (0-5)
[2021-06-30 15:33] LABS: Glucose, Dipstick Normal (Normal); Ketone-Dipstick Negative (Negative); Leukocyte Esterase-Dipstick Negative /ul (Negative); Nitrite-Dipstick Negative (Negative); Occult Blood-Urine Negative /ul (Negative); Protein-Dipstick 30 mg/dl (Negative); Urine Bilirubin Dipstick Negative (Negative); Urine Urobilinogen Normal (Normal)
[2021-06-30 15:45] LABS: Color, Urine Yellow (Yellow); Urine Clarity Clear (Clear)
[2021-06-30 15:47] LABS: Squamous Epithelial Cells - UA 0-5 SEEN /hpf (0-5); White Blood Cells 0-5 SEEN /hpf (0-5)
--- NOTE | 2021-06-30 16:15 | CT_ITS ---
EXAM: CT ABDOMEN AND PELVIS WITH INTRAVENOUS CONTRAST : 1970 CLINICAL INDICATION: diverticulitis -- IV PO Contrast TECHNIQUE: Helically acquired images were obtained of the abdomen and pelvis with intravenous contrast. This CT exam was performed using one or more of the following dose reduction techniques: automated exposure control, adjustment of the mA and/or kV according to patient size, and/or use of iterative reconstruction technique. This report was created using [employer] report generation technology. CONTRAST: IV 100mL Isovue-370 COMPARISON: June 26, 2021 FINDINGS: LOWER THORAX: Unremarkable. Lung bases are clear. No cardiomegaly. No significant pericardial effusion. ABDOMEN: LIVER: Mild hepatic steatosis is noted. GALLBLADDER AND BILE DUCTS: Unremarkable. No calcified gallstones. No gallbladder distention or wall edema. No intra- or extrahepatic biliary ductal dilation. PANCREAS: Unremarkable. No focal cystic or solid mass. SPLEEN: Unremarkable. Normal size without focal cystic or solid mass. ADRENALS: Unremarkable. No nodules. KIDNEYS AND URETERS: Nonobstructive 2 mm left renal stone again seen. Punctate stone previously noted within the right kidney not identified on this exam. 12 mm left renal cyst and subcentimeter right renal cyst. No specific follow-up recommended. Normal renal size and position. STOMACH AND BOWEL: Wall thickening and adjacent inflammatory changes involving the sigmoid colon again noted improved from prior exam. No stomach or bowel distention. PELVIS: APPENDIX: Appendix is visualised and normal in appearance. BLADDER: Unremarkable. REPRODUCTIVE: Unremarkable as visualized. No mass. ABDOMEN and PELVIS: INTRAPERITONEAL SPACE: Unremarkable. No ascites or other fluid collection. No free air. BONES/JOINTS: Unremarkable. No suspicious lytic or blastic abnormality. SOFT TISSUES: Unremarkable. No discrete abdominal or pelvic wall hernia. VASCULATURE: Unremarkable. Abdominal aorta is non-dilated. LYMPH NODES: Unremarkable. No enlarged lymph nodes. CT/Abdomen/Pelvis WITH Contrast IMPRESSION: 1. Improving sigmoid diverticulitis. 2. Mild hepatic steatosis. 3. 2 mm left renal stone. Individualized dose optimization techniques were used for this CT. at 1634 Reported and signed by: Dionicio Thompson MD Electronically Signed: Dionicio Thompson MD at 16:33 EDT ,
[2021-06-30] MEDS: HYDROmorphone 0.5 MG/0.5 ML SYRINGE IV (16:32)
[2021-06-30 16:38] VITALS: BP 175/85; PULSE 81; RESP 16; O2SAT 98
== END 2021-06-30 17:47 | disposition home or self-care (01) ==
PROVIDERS: Emergency Provider Emergency Medicine; PCP Family Medicine; Visit Provider Emergency Medicine
DX: K57.32 Diverticulitis of large intestine without perforation or abscess without bleeding (principal); I10 Essential (primary) hypertension; F17.210 Nicotine dependence, cigarettes, uncomplicated; N20.0 Calculus of kidney
CPT/HCPCS: 74177; 80048; 81001; 85025; 96361; 96374; 96375; 99283; A4216; J2405

== ENCOUNTER 2022-08-18 16:20 | Emergency (ER) | payer OTHER, SELFPAY ==
[2022-08-18 16:21] VITALS: BP 210/124; BP 218/112; PULSE 80; PULSE 82; RESP 18; RESP 19; TEMP 37.2; O2SAT 98; O2SAT 99; BMI 35.0
--- NOTE | 2022-08-18 16:45 | CT_ITS ---
EXAMINATION : Head CT w/out contrast HISTORY : headache COMPARISON : None. TECHNIQUE : Multiple contiguous axial images were obtained from the skull base to the vertex without intravenous contrast. A radiation dose optimization technique was used for this scan. FINDINGS : The ventricles and sulci are normal in size. There is no evidence for acute intracranial hemorrhage, mass effect, or midline shift. There is no extra-axial fluid collection. There is normal andrade-white differentiation, without CT evidence of acute ischemia or infarct. The skull base and calvarium are unremarkable. The orbits are unremarkable. Moderate mucosal thickening of the right maxillary sinus. The mastoid air cells are well-aerated. The soft tissues are unremarkable. CT/Brain/Head without Contrast IMPRESSION: No acute intracranial abnormality. Right maxillary sinusitis. Electronically Signed: Jordi Iqbal MD at 17:02 EDT ,
[2022-08-18 16:49] VITALS: BP 179/107; PULSE 69; RESP 15; O2SAT 95
--- NOTE | 2022-08-18 16:49 | RAD_ITS ---
INDICATION: htn EXAMINATION/TECHNIQUE: X-RAY - XR Chest 1 View COMPARISON: 12/07/2019. FINDINGS: The lungs are clear. Tortuous and calcified thoracic aorta. The heart is not enlarged. No pleural effusion or pneumothorax. Degenerative changes of the thoracic spine. Spine stimulator in place. RAD/Chest 1 View (Portable) IMPRESSION: No acute radiographic abnormalities. Electronically Signed: Jordi Iqbal MD at 17:03 EDT ,
[2022-08-18] MEDS: Metoclopramide 10 MG/2 ML Vial IV (17:23)
[2022-08-18] MEDS: DiphenhydrAMINE 50 MG/ML Syringe 25 MG IV (17:24)
[2022-08-18] MEDS: Labetalol (Prefilled) 20 MG/4 ML IV (17:30)
[2022-08-18 17:51] LABS: Absolute Neutrophil Count 8.9 X10^3/uL (2.0-7.7); Basophil# 0.08 X10^3/uL; Basophil% 0.7 % (0-1); Eosinophil# 0.12 X10^3/uL; Hematocrit 41.3 % (40-54); Hemoglobin 14.1 g/dL (13.0-16.5); Lymphocyte % 14.8 % (19-41); Mean Corp Hgb Conc 34.1 g/dL (32-36); Mean Corpuscular Hgb 30.7 pg (27.0-32.0); Mean Platelet Vol. 10.4 fl (6.2-12.0); Monocyte# 0.64 X10^3/uL; Monocyte% 5.6 % (0-10); NRBC Flagged by Analyzer 0 % (0-5); Neutrophil # 8.89 X10^3/uL (2.7-7.7); Neutrophil % 77.6 % (47-70); Platelet Count 314 K/mm3 (150-450); RBC Distribution Width CV 13.2 % (11.6-14.6); RBC Distribution Width SD 43.2 fl (35.1-43.9); Red Blood Count 4.59 M/mm3 (4.6-6.2); White Blood Count 11.5 K/mm3 (4.4-11.0)
[2022-08-18 18:22] LABS: ALB/GLOB Ratio 1.1 RATIO (0.9-2.4); AST(SGOT) 19 U/L (15-37); Alanine Aminotransfer ALT/SGPT 29 U/L (16-61); Albumin, Serum 4.1 g/dL (3.2-5.0); Alkaline Phosphatase 74 U/L (45-117); Anion Gap 9 (5-15); BUN 20 mg/dL (7-18); BUN/Creat Ratio 20.1 RATIO (10-20); Calcium,Total 9.4 mg/dL (8.5-10.1); Chloride 106 mmol/L (98-107); EST Glomerular Filtration Rate 83 mL/min (>60); Est Glom Filt Rate - Afr Amer 101 mL/min (>60); Estimated Creatinine Clearance 87.19 ml/min; Globulin 3.7 g/dL (2.2-4.2); Glucose 106 mg/dL (74-106); Potassium 3.9 mmol/L (3.5-5.1); Protein, Total 7.8 g/dL (6.4-8.2); Sodium Level 139 mmol/L (136-145); Troponin-I HS 11 pg/mL (3.0-78.0)
--- NOTE | 2022-08-18 18:34 | EX.ED.VIS.HA ---
HPI History of Present Illness Chief Complaint: Headache Narrative Narrative: 52-year-old male with headache. He states he had a fairly normal headache yesterday. Today it is worse that he feels like his vision is blurring at times. He states that he has decreased sensation on the left arm and the left leg. Patient states he has hypertension and is usually well controlled on lisinopril and metoprolol. He denies chest pain. He has mildly increased shortness of breath compared to usual. No fevers or chills. [facility] Medical History Anxiety and depression Diverticulitis Nephrolithiasis Osteoarthritis Home Medications amoxicillin 875 mg-potassium clavulanate 125 mg tablet 1 tab PO Q8H #30 tabs 06/26/21 [Rx Last Taken Unknown] lisinopril 10 mg tablet 10 mg PO DAILY #30 tabs 06/26/21 [Rx Last Taken Unknown] ondansetron 4 mg disintegrating tablet 4 mg PO Q8H PRN PRN Nausea #10 tabs 06/26/21 [Rx Last Taken Unknown] hydrocodone-acetaminophen 5-325mg 5mg-325mg 1 tab PO Q6H PRN pain 5 days #20 tabs 06/30/21 [Rx Last Taken Unknown] Allergy/AdvReac Type Severity Reaction Status Date / Time No Known Allergies Allergy Verified 08/18/22 16:25 Social History Smoking Status: Light Smoker (<10/day) ROS ROS ED Constitutional Constitutional ED: Denies chills, fever(s) or sweats Eyes Eyes: Denies blurry vision or change in vision ENT ENT ED: Denies ear pain or sore throat Cardiovascular Cardiovascular: Denies chest pain, palpitations or racing heartbeat Respiratory/Chest Respiratory/Chest: Reports dyspnea; Denies cough or sputum Gastrointestinal Gastrointestinal: Denies abdominal pain, constipation, diarrhea, nausea or vomiting Genitourinary Genitourinary ED: Denies dysuria, hematuria or urinary frequency Musculoskeletal Musculoskeletal: Denies arthralgias, myalgias or neck pain Integumentary Denies abscess, Abrasions or rash Neurologic Neurologic: Reports headache(s) and paresthesias; Denies weakness Psychiatric Psychiatric: Denies anxiety, depression, suicidal ideation or suicidal thoughts Endocrine Endocrinology: Denies polydipsia or polyuria EXAM Physical Exam Const Vital Signs: 08/18/22 16:21 08/18/22 16:21 08/18/22 16:49 Temperature 98.9 F Temperature Source Temporal Pulse Rate 82 80 69 Respiratory Rate 18 19 H 15 Blood Pressure 218/112 H 210/124 H 179/107 H Blood Pressure Mean 147 152 131 Pulse Ox 99 98 95 Oxygen Delivery Method Room Air Room Air Room Air 08/18/22 18:37 08/18/22 18:42 08/18/22 18:51 Temperature Temperature Source Pulse Rate 67 66 67 Respiratory Rate 16 16 Blood Pressure 169/106 H 194/92 H 174/93 H Blood Pressure Mean 127 126 120 Pulse Ox 98 98 Oxygen Delivery Method Room Air Room Air 08/18/22 19:56 Temperature Temperature Source Pulse Rate 76 Respiratory Rate 18 Blood Pressure 187/99 H Blood Pressure Mean Pulse Ox 98 Oxygen Delivery Method Positive well nourished General Appearance ED: NAD; Negative for pallor HEENT Reports normocephalic atraumatic Eyes PERRL and EOMs intact bilaterally Cardio regular rate; Negative for regular rhythm, S1 normal heart sound, S2 normal heart sound or no murmurs Neuro oriented x3 and CN's II-XII intact bilaterally Sensorium / Orientation: awake and alert Psych mental status grossly normal Skin General Skin Exam: Negative for jaundice or pallor MDM MDM MDM Narrative Medical decision making narrative: Patient presenting with headache and had a couple episodes of nausea and vomiting. Differential includes migraine, hypertensive headache, intracranial hemorrhage, stroke given the patient's decree sensation on the left side. NIH stroke scale score of 1. Vital signs are stable with the exception of his blood pressure. CT brain was ordered to rule out intracranial bleed. CMP to assess liver function, renal function, glucose, anion gap, electrolytes. Patient given a dose of labetalol 20 mg IV which did bring his blood pressure down a little bit. He was given a follow-up dose of hydralazine [address] brain was negative. Chest x-ray shows no acute cardiopulmonary process. Radiology interprets this and agrees. CBC unremarkable. CMP also unremarkable. Patient's blood pressure improved to 187/99. I went back to evaluate the patient and he had eloped. Impression: 1. Headache 2. Hypertension Lab Data Labs: Laboratory Results - last 24 hr 08/18/22 08/18/22 17:15 17:15 WBC 11.5 H RBC 4.59 L Hgb 14.1 Hct 41.3 MCV 90.0 MCH 30.7 MCHC 34.1 RDW Std Deviation 43.2 RDW Coeff of Shin 13.2 Plt Count 314 MPV 10.4 Immature Gran % (Auto) 0.300 Neut % (Auto) 77.6 H Lymph % (Auto) 14.8 L [place] % (Auto) 5.6 Eos % (Auto) 1.0 Baso % (Auto) 0.7 Absolute Neuts (auto) 8.9 H Absolute Lymphs (auto) 1.70 Nucleated RBC % 0 Sodium 139 Potassium 3.9 Chloride 106 Carbon Dioxide 24.0 Anion Gap 9 BUN 20 H Creatinine 1.00 Estim Creat Clear Calc 87.19 Est GFR (MDRD) Af Amer 101 Est GFR (MDRD) Non-Af 83 BUN/Creatinine Ratio 20.1 H Glucose 106 Calcium 9.4 Total Bilirubin 0.60 AST 19 ALT 29 Alkaline Phosphatase 74 Troponin I High Sens 11 Total Protein 7.8 Albumin 4.1 Globulin 3.7 Albumin/Globulin Ratio 1.1 Radiography Diagnostic Testing: Clinical Impression(s) from Imaging Studies Brain CT 08/18/22 16:45 IMPRESSION: No acute intracranial abnormality. Right maxillary sinusitis. Electronically Signed: Jordi Iqbal MD at 17:02 EDT , Chest X-Ray 08/18/22 16:49 IMPRESSION: No acute radiographic abnormalities. Electronically Signed: Jordi Iqbal MD at 17:03 EDT , Discharge Plan Triage Chief Complaint: Headache ED Provider: Shaun Herr Dx/Rx/DC Orders Prescriptions: No Action amoxicillin-pot clavulanate 875-125 mg tablet 1 tab PO Q8H Qty: 30 0RF ondansetron 4 mg tablet,disintegrating 4 mg PO Q8H PRN PRN (Reason: Nausea) Qty: 10 0RF lisinopril 10 mg tablet 10 mg PO DAILY Qty: 30 0RF hydrocodone-acetaminophen 5-325 mg tablet 1 tab PO Q6H PRN (Reason: pain) 5 Days Qty: 20 0RF Primary Care Provider: Jossy Natarjaan NP Referrals: Jossy Natarajan NNPS, NNPS-C [Primary Care Provider] - Disposition Disposition: Elopement Discharge Date/Time: 08/18/22 20:02
[2022-08-18 18:37] VITALS: BP 169/106; PULSE 67; RESP 16; O2SAT 98
[2022-08-18] MEDS: hydrALAZINE 20 MG/ML Vial 10 MG IV (18:39)
[2022-08-18 18:42] VITALS: BP 194/92; PULSE 66; RESP 16; O2SAT 98
[2022-08-18] MEDS: Ketorolac 15 MG/ML Vial IV (18:49)
[2022-08-18 18:51] VITALS: BP 174/93; PULSE 67
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
[2022-08-18 19:56] VITALS: BP 187/99; PULSE 76; RESP 18; O2SAT 98
--- NOTE | 2022-08-18 19:56 | ED.RN ---
charge called into the room. is upset that patient has not seen the doctor in over an hour for test results. blood pressure still high and he his not getting the care he needs. advised that doctor is currently still in with a critical patient and has not been able to see patient at this time. If there was anything concerning on tests doctor would have been in by now. Patient wishes to no longer stay and wants to leave. Advised patient that nurse will speak with doctor as soon as he is able to step out of patients room. Patient would rather go to another hospital at this time. Patient would like all his medical records to leave with. Advised if patient is going to another hospital they can request medical records once he gets there. Patient IV removed at this time and patient left with his without any assistance. Dr. Herr made aware
== END 2022-08-18 20:02 | disposition left against medical advice (07) ==
PROVIDERS: Emergency Provider Student in an Organized Health Care Education/Training Program; PCP Nurse Practitioner Family; Visit Provider Student in an Organized Health Care Education/Training Program
DX: R51.9 Headache, unspecified (principal); R06.02 Shortness of breath; F17.200 Nicotine dependence, unspecified, uncomplicated; I10 Essential (primary) hypertension
CPT/HCPCS: 70450; 71045; 80053; 84484; 85025; 93005; 96374; 96375; 99284; A4216

== ENCOUNTER 2022-10-22 17:26 | Emergency (ER) | payer OTHER, SELFPAY ==
[2022-10-22 17:27] VITALS: BP 221/119; PULSE 81; RESP 16; TEMP 36.6; O2SAT 99; BMI 36.8
--- NOTE | 2022-10-22 17:42 | CT_ITS ---
STUDY: CT ABDOMEN AND PELVIS WITHOUT CONTRAST REASON FOR EXAM: Male, 52 years old. left flank pain RADIATION DOSAGE (If Supplied By Facility): CTDIvol = ( 21.27 ) mGy, DLP = ( 1041.63 ) mGycm TECHNIQUE: Transaxial images were obtained from the dome of the diaphragm to the symphysis pubis without oral contrast, and without intravenous contrast. Sagittal and coronal images were reconstructed. Individualized dose optimization techniques were used for this CT. COMPARISON: 06/30/2021 FINDINGS: The visualized lung bases are unremarkable. The visualized portions of the heart are within normal limits. There is a diffuse contour abnormality of the liver consistent with cirrhotic changes. The gallbladder is contracted. Normal spleen. Normal pancreas. Normal bilateral adrenal glands. Multiple bilateral small nonobstructing renal stones. No hydronephrosis, ureteral stone, ureteral dilatation. Normal visualized stomach. Normal small intestine. There are multiple colonic diverticula consistent with diverticulosis. The appendix is visualized and appears normal. Normal abdominal aorta. Normal inferior vena cava. Normal retroperitoneum. Normal urinary bladder. There are prostatic calcifications. There is a small umbilical hernia containing fat. Normal osseous structures. Dorsal column spinal stimulator in the lower thoracic spine. CT/Abdomen/Pelvis without Cont IMPRESSION: 1. Bilateral small nonobstructing renal stones. 2. Fatty infiltration of liver. Electronically Signed: Galen Soliman MD at 18:55 EDT ,
--- NOTE | 2022-10-22 17:43 | EDS_ITS ---
HPI History of Present Illness Chief Complaint: Flank Pain Detail of Chief Complaint: Left flank pain Informant: patient Narrative Narrative: Patient presents to the emergency department complaint left leg pain that started today. Patient denies any injury. He has history of kidney stones and thinks he might be passing a kidney stone. He denies dysuria or urgency or frequency. He denies hematuria. He has had no nausea or vomiting. He denies fever. Patient does have history of hypertension and is on 4 medications and has been taking it normally. He states he recently had an admission to a hospital for his hypertension. Patient states the pain is sharp and stabbing and worse with certain movements and worse with deep breath at times. [facility] Medical History Anxiety and depression Diverticulitis Nephrolithiasis Osteoarthritis Home Medications amoxicillin 875 mg-potassium clavulanate 125 mg tablet 1 tab PO Q8H #30 tabs 06/26/21 [Rx Last Taken Unknown] lisinopril 10 mg tablet 10 mg PO DAILY #30 tabs 06/26/21 [Rx Last Taken Unknown] ondansetron 4 mg disintegrating tablet 4 mg PO Q8H PRN PRN Nausea #10 tabs 06/26/21 [Rx Last Taken Unknown] hydrocodone-acetaminophen 5-325mg 5mg-325mg 1 tab PO Q6H PRN pain 5 days #20 tabs 06/30/21 [Rx Last Taken Unknown] cyclobenzaprine 10 mg tablet 10 mg PO TID PRN Muscle Spasm #20 TABLETS 10/22/22 [Rx Last Taken Unknown] hydrocodone-acetaminophen 5-325mg 5mg-325mg 1 tab PO Q4H PRN PRN Pain 2 days #10 TABLETS 10/22/22 [Rx Last Taken Unknown] Allergy/AdvReac Type Severity Reaction Status Date / Time No Known Allergies Allergy Verified 10/22/22 17:29 Social History Smoking Status: Current every day smoker tobacco type: cigarettes ROS ROS ED Review of Systems ROS Unobtainable: other Constitutional Constitutional ED: Reports lethargy; Denies chills, fever(s), sweats or weight loss Eyes Eyes: Denies blurry vision, change in vision or diplopia ENT ENT ED: Denies rhinorrhea or sore throat Cardiovascular Cardiovascular: Denies chest pain, orthopnea or racing heartbeat Respiratory/Chest Respiratory/Chest: Denies cough, dyspnea, dyspnea on exertion, orthopnea or sputum Gastrointestinal Gastrointestinal: Denies abdominal pain, diarrhea, nausea or vomiting Genitourinary Genitourinary ED: Denies dysuria, hematuria or urinary frequency Musculoskeletal Musculoskeletal: Reports back pain; Denies arthralgias, myalgias or neck pain Integumentary Denies abscess, Abrasions or rash Neurologic Neurologic: Denies headache(s) or weakness Psychiatric Psychiatric: Denies anxiety, depression or suicidal thoughts Endocrine Endocrinology: Denies polydipsia, polyphagia or polyuria Hematologic/Lymphatic Hematologic/Lymphatic: Denies easy bleeding, easy bruising or lymphadenopathy Allergic/Immunologic Allergic/Immunologic ED: Denies mouth swelling, tongue swelling or urticaria EXAM Physical Exam Const Vital Signs: 10/22/22 17:27 10/22/22 18:22 10/22/22 19:01 Temperature 97.8 F Temperature Source Temporal Pulse Rate 81 Respiratory Rate 16 Blood Pressure 221/119 H 165/98 H 187/104 H Blood Pressure Mean 153 120 131 Pulse Ox 99 Oxygen Delivery Method Room Air 10/22/22 19:31 Temperature Temperature Source Pulse Rate 73 Respiratory Rate Blood Pressure 170/92 H Blood Pressure Mean Pulse Ox 99 Oxygen Delivery Method Positive well nourished and well developed General Appearance ED: well developed and NAD HEENT Reports TM's clear and moist mucous membranes normocephalic and atraumatic; Negative for trauma or tenderness Tympanic Membrane ED: Yes TM's clear Eyes PERRL and EOMs intact bilaterally General Eye ED: Negative for pale conjunctiva or scleral icterus Neck no lymphadenopathy, supple and no JVD General: Negative for tenderness Chest Wall inspection of chest normal and palpation of chest normal Chest: Negative for tenderness Resp normal respiratory effort and clear to auscultation bilaterally Effort and Inspection: Negative for respiratory distress or pain with movement Auscultation: Negative for rhonchi, wheezes or diminished lung sounds Cardio regular rate, regular rhythm, S1 normal heart sound, S2 normal heart sound and no murmurs Peripheral Pulses: pulses 2+ throughout GI normal to inspection, nondistended, normoactive bowel sounds, soft to palpation, non-tender, non-distended and no masses Back/Spine no thoracic nor lumbar tenderness Back/Spine Narrative: CVA tenderness on the left. Patient also has tenderness to palpation of the lumbar paraspinal musculature that seems to reproduce his pain. Negative straight leg raises. Deep tendon reflexes plus 2 out of 4 bilaterally at the patella and Achilles. Patient has normal L5 extension bilaterally. Patient has normal sensation to light touch. Extremity normal to inspection General Extremety ED: Negative for edema General Extremity: Negative for edema Neuro oriented x3, CN's II-XII intact bilaterally, no sensory deficits noted and gait normal Sensorium / Orientation: awake, alert, oriented to person, oriented to place and oriented to time Motor Exam: strength 5/5 throughout and strength abnormal Psych mental status grossly normal Skin no rashes or lesions noted and no wounds MDM MDM MDM Narrative Medical decision making narrative: Patient presents with severe left flank pain with history of kidney stones. Patient states it feels similar to passing a kidney stone. In the differential would be kidney stone versus UTI versus musculoskeletal back pain. IV line established on arrival. Patient was medicated with morphine and Zofran as well as Toradol. He continued to experience pain and was given a milligram of Dilaudid IV. Patient had a CBC with differential that showed a slightly elevated white count of 12.7 with a hemoglobin of 14 and platelet count of 282. Chemistries were unremarkable. BUN was 19 and creatinine 1.27. Urinalysis was normal. D-dimer was normal. At this point etiology of back pain I suspect may be more muscular as he does have reproducible pain on palpation of his lumbar pa raspinal musculature. Patient does state that he went golfing the other day but denies other trauma or injury. Patient will be given a prescription for Pingree and Flexeril. Advised to follow-up with primary care physician within next 3 to 5 days. He has an appointment actually scheduled for 2 days from now. I suspect patient's elevated blood pressure is likely secondary to pain. Patient to continue with his blood pressure medications. Lab Data Attestation: I reviewed the patient's lab results. Labs: Laboratory Results - last 24 hr 10/22/22 10/22/22 17:51 18:17 WBC 12.7 H RBC 4.48 L Hgb 14.0 Hct 39.4 L MCV 87.9 MCH 31.3 MCHC 35.5 RDW Std Deviation 41.6 RDW Coeff of Shin 13.0 Plt Count 282 MPV 10.0 Immature Gran % (Auto) 0.400 Neut % (Auto) 66.4 Lymph % (Auto) 21.6 Gilchrist % (Auto) 7.9 Eos % (Auto) 2.9 Baso % (Auto) 0.8 Absolute Neuts (auto) 8.4 H Absolute Lymphs (auto) 2.73 Nucleated RBC % 0 D-Dimer Quant (PE/DVT) 0.47 Sodium 137 Potassium 4.1 Chloride 107 Carbon Dioxide 23.0 Anion Gap 7 BUN 19 H Creatinine 1.27 Estim Creat Clear Calc 68.66 Est GFR (MDRD) Af Amer 76 Est GFR (MDRD) Non-Af 63 BUN/Creatinine Ratio 15.0 Glucose 125 H Calcium 8.8 Urine Color Yellow Urine Clarity Clear Urine pH 5.0 Ur Specific [place] 1.020 Urine Protein 15 H Urine Glucose (UA) Normal Urine Ketones Negative Urine Occult Blood Negative Urine Nitrite Negative Urine Bilirubin Negative Urine Urobilinogen Normal Ur Leukocyte Esterase Negative Urine RBC 0 SEEN Urine WBC 0 SEEN Ur Squamous Epith Cells 0-5 SEEN Urine Bacteria 0 SEEN Urine Mucus 0 SEEN Radiography Diagnostic Testing: Clinical Impression(s) from Imaging Studies Abdomen/Pelvis CT 10/22/22 17:42 IMPRESSION: 1. Bilateral small nonobstructing renal stones. 2. Fatty infiltration of liver. Electronically Signed: Galen Soliman MD at 18:55 EDT , Discharge Plan Triage Chief Complaint: Flank Pain ED Provider: David Guo Dx/Rx/DC Orders Clinical Impression: Back pain Instructions: ED Back Pain (Acute or Chronic) Prescriptions: New cyclobenzaprine [cyclobenzaprine] 10 mg tablet 10 mg PO TID PRN (Reason: Muscle Spasm) Qty: 20 0RF hydrocodone-acetaminophen [hydrocodone-acetaminophen] 5-325 mg tablet 1 tab PO Q4H PRN PRN (Reason: Pain) 2 Days Qty: 10 0RF No Action amoxicillin-pot clavulanate 875-125 mg tablet 1 tab PO Q8H Qty: 30 0RF ondansetron 4 mg tablet,disintegrating 4 mg PO Q8H PRN PRN (Reason: Nausea) Qty: 10 0RF lisinopril 10 mg tablet 10 mg PO DAILY Qty: 30 0RF hydrocodone-acetaminophen 5-325 mg tablet 1 tab PO Q6H PRN (Reason: pain) 5 Days Qty: 20 0RF Primary Care Provider: Jossy Natarajan NP Referrals: Jossy Natarajan [employer], [employer] [Primary Care Provider] - 2 Days Disposition Disposition: Home, Self Care Discharge Date/Time: 10/22/22 20:02
[2022-10-22] MEDS: 0.9% Normal Saline 1,000 ML 150 ML IV (17:48)
[2022-10-22] MEDS: Ketorolac 15 MG/ML Vial IV (17:49)
[2022-10-22] MEDS: Morphine 4 MG/ML Syringe IV (17:49)
[2022-10-22] MEDS: Ondansetron 4 MG/2 ML Vial IV (17:49)
[2022-10-22 18:04] LABS: Absolute Lymphocyte Count 2.73 X10^3/uL (0.83-4.51); Absolute Neutrophil Count 8.4 X10^3/uL (2.0-7.7); Basophil% 0.8 % (0-1); Eosinophil# 0.37 X10^3/uL; Eosinophils% 2.9 % (0-5); Hematocrit 39.4 % (40-54); Lymphocyte # 2.73 X10^3/ul (0.83-4.51); Lymphocyte % 21.6 % (19-41); Mean Corp Hgb Conc 35.5 g/dL (32-36); Mean Corpuscular Hgb 31.3 pg (27.0-32.0); Mean Corpuscular Volume 87.9 fL (80-94); Monocyte% 7.9 % (0-10); NRBC Flagged by Analyzer 0 % (0-5); Neutrophil % 66.4 % (47-70); Platelet Count 282 K/mm3 (150-450); RBC Distribution Width SD 41.6 fl (35.1-43.9); Red Blood Count 4.48 M/mm3 (4.6-6.2); White Blood Count 12.7 K/mm3 (4.4-11.0)
[2022-10-22 18:16] LABS: D-Dimer Quantitative (DVT/PE) 0.47 FEU/ug/m (0.27-0.49)
[2022-10-22 18:19] LABS: Anion Gap 7 (5-15); BUN 19 mg/dL (7-18); Calcium,Total 8.8 mg/dL (8.5-10.1); Chloride 107 mmol/L (98-107); Creatinine, Serum 1.27 mg/dL (0.70-1.30); EST Glomerular Filtration Rate 63 mL/min (>60); Est Glom Filt Rate - Afr Amer 76 mL/min (>60); Estimated Creatinine Clearance 68.66 ml/min; Glucose 125 mg/dL (74-106); Potassium 4.1 mmol/L (3.5-5.1); Sodium Level 137 mmol/L (136-145)
[2022-10-22 18:22] VITALS: BP 165/98
[2022-10-22 18:24] LABS: Bacteria 0 SEEN /hpf (None Seen); Mucous, Urine 0 SEEN /hpf (<or=2+); Red Blood Cells-Urine 0 SEEN /hpf (0-5); White Blood Cells 0 SEEN /hpf (0-5)
[2022-10-22 18:36] LABS: Color, Urine Yellow (Yellow); Glucose, Dipstick Normal (Normal); Ketone-Dipstick Negative (Negative); Leukocyte Esterase-Dipstick Negative /ul (Negative); Nitrite-Dipstick Negative (Negative); Occult Blood-Urine Negative /ul (Negative); Protein-Dipstick 15 mg/dl (Negative); Urine Bilirubin Dipstick Negative (Negative); Urine Clarity Clear (Clear); Urine Urobilinogen Normal (Normal)
[2022-10-22] MEDS: HYDROmorphone 1 MG/ML Syringe IV (18:40)
[2022-10-22 18:42] LABS: Squamous Epithelial Cells - UA 0-5 SEEN /hpf (0-5)
[2022-10-22 19:01] VITALS: BP 187/104
[2022-10-22 19:31] VITALS: BP 170/92; PULSE 73; O2SAT 99
== END 2022-10-22 20:02 | disposition home or self-care (01) ==
PROVIDERS: Emergency Provider Emergency Medicine; PCP Nurse Practitioner Family; Visit Provider Emergency Medicine
DX: M54.50 Low back pain, unspecified (principal); I10 Essential (primary) hypertension; F17.210 Nicotine dependence, cigarettes, uncomplicated; Z79.899 Other long term (current) drug therapy; Z87.442 Personal history of urinary calculi
CPT/HCPCS: 74176; 80048; 81001; 85025; 85379; 96361; 96374; 96375; 99283; J7030; A4216; J2405

== ENCOUNTER 2022-12-24 15:14 | Emergency (ER) | payer OTHER, SELFPAY ==
[2022-12-24] VITALS (8 sets, daily range): BP systolic 173–241; BP diastolic 103–146; PULSE 69–84; RESP 14–18; TEMP 35.7–36.8; O2SAT 96–99; BMI 37.0
[2022-12-24] MEDS: Tetracaine 0.5% Ophthalmic Bottle 1 DRP RIGHT EYE (15:33)
[2022-12-24] MEDS: Fluorescein 1 MG STRIP 1 STRIP LEFT EYE (15:33)
--- NOTE | 2022-12-24 16:05 | EDS_ITS ---
HPI History of Present Illness Chief Complaint: Eye Problem Narrative Narrative: Patient presents with right eye pain for a few days, he feels like there is foreign body and he has used eyedrops to get it out. He has no vision changes if he pulls his eyelid up. No fevers or chills. He has a headache, he usually gets headaches when he has hypertension is a history of uncontrolled hypertension. He does take his blood pressure medication. [facility] Medical History Anxiety and depression Diverticulitis Nephrolithiasis Osteoarthritis Home Medications amoxicillin 875 mg-potassium clavulanate 125 mg tablet 1 tab PO Q8H #30 tabs 06/26/21 [Rx Last Taken Unknown] lisinopril 10 mg tablet 10 mg PO DAILY #30 tabs 06/26/21 [Rx Last Taken Unknown] ondansetron 4 mg disintegrating tablet 4 mg PO Q8H PRN PRN Nausea #10 tabs 06/26/21 [Rx Last Taken Unknown] hydrocodone-acetaminophen 5-325mg 5mg-325mg 1 tab PO Q6H PRN pain 5 days #20 tabs 06/30/21 [Rx Last Taken Unknown] cyclobenzaprine 10 mg tablet 10 mg PO TID PRN Muscle Spasm #20 TABLETS 10/22/22 [Rx Last Taken Unknown] hydrocodone-acetaminophen 5-325mg 5mg-325mg 1 tab PO Q4H PRN PRN Pain 2 days #10 TABLETS 10/22/22 [Rx Last Taken Unknown] Allergy/AdvReac Type Severity Reaction Status Date / Time No Known Allergies Allergy Verified 10/22/22 17:29 Social History Smoking Status: Current every day smoker tobacco type: cigarettes ROS ROS ED ROS Narrative Past medical history: Reviewed Medications: Reviewed Social history: Noncontributory Review of systems: All systems negative except as indicated General: No fever Eyes: As in HPI ENT: No upper airway congestion, normal voice Neck: No neck pain Cardiovascular: No chest pain Respiratory: No shortness of breath or cough Gastrointestinal: No abdominal pain, nausea vomiting or diarrhea Genitourinary: No dysuria Musculoskeletal: Denies myalgias no difficulty with ambulation Skin: No rash Neurological: No memory loss, confusion or any focal weakness. He does have a headache. Psych: No recent behavioral changes Hematologic: No easy bleeding or easy bruising EXAM Physical Exam Narrative Exam Narrative: Physical exam General: Well nourished, Well developed, No Acute Distress Head: Normocephalic, Atraumatic Eyes: Very slight conjunctivitis, swelling of the right upper eyelid I everted it there is no foreign body. ENT: Moist mucous membranes Neck: Supple, Nontender, No lymphadenopathy Cardiovascular: Regular rate, Regular rhythm Respiratory: No distress, CTA bilaterally Abdomen: Soft, Nontender, Nondistended Back: Nontender, Normal Inspection. Negative for: CVA tenderness Extremities: Nontender, No edema Skin: Normal color, No rash Neurological: Alert, Normal Strength, Normal Sensation Psychological: Normal affect Const Vital Signs: 12/24/22 15:15 12/24/22 15:40 Temperature 96.3 F L Temperature Source Temporal Pulse Rate 84 76 Respiratory Rate 18 18 Blood Pressure 241/109 H 233/117 H Blood Pressure Mean 153 155 Pulse Ox 99 97 Oxygen Delivery Method Room Air Room Air MDM MDM MDM Narrative Medical decision making narrative: Slit-lamp exam: I placed tetracaine and fluorescein, there is no dye uptake, anterior chambers are deep and quiet. Patient's vision is normal when I lift his eyelid, this makes me think that he had a little bit of blurred vision but only because of the eyelid swelling. Patient does have hypertension he was hypertensive in the ED and also had a headache. These were treated. Give the patient labetalol and hydralazine I al so treated his headache with opiate analgesics, headache only slightly improved, he has significant hypertension still, and its again increasing. I will admit him for observation. Discharge Plan Triage Chief Complaint: Eye Problem ED Provider: Atul Solitario Dx/Rx/DC Orders Clinical Impression: Headache, Hypertension, Hordeolum Prescriptions: No Action amoxicillin-pot clavulanate 875-125 mg tablet 1 tab PO Q8H Qty: 30 0RF ondansetron 4 mg tablet,disintegrating 4 mg PO Q8H PRN PRN (Reason: Nausea) Qty: 10 0RF lisinopril 10 mg tablet 10 mg PO DAILY Qty: 30 0RF hydrocodone-acetaminophen 5-325 mg tablet 1 tab PO Q6H PRN (Reason: pain) 5 Days Qty: 20 0RF cyclobenzaprine [cyclobenzaprine] 10 mg tablet 10 mg PO TID PRN (Reason: Muscle Spasm) Qty: 20 0RF hydrocodone-acetaminophen [hydrocodone-acetaminophen] 5-325 mg tablet 1 tab PO Q4H PRN PRN (Reason: Pain) 2 Days Qty: 10 0RF Primary Care Provider: Jossy Natarajan [employer] Referrals: Jossy Natarajan [employer], [employer]-C [Primary Care Provider] - Disposition Disposition: Acute Care Hospital [facility]
[2022-12-24] MEDS: Labetalol (Prefilled) 20 MG/4 ML 10 MG IV (16:12)
[2022-12-24] MEDS: Morphine 4 MG/ML Syringe IV (16:14)
[2022-12-24] MEDS: Ondansetron 4 MG/2 ML Vial IV (16:14)
[2022-12-24 16:37] LABS: ALB/GLOB Ratio 1.2 RATIO (0.9-2.4); AST(SGOT) 15 U/L (15-37); Alanine Aminotransfer ALT/SGPT 33 U/L (16-61); Alkaline Phosphatase 73 U/L (45-117); Anion Gap 5 (5-15); BUN 18 mg/dL (7-18); BUN/Creat Ratio 14.8 RATIO (10-20); Calcium,Total 9.2 mg/dL (8.5-10.1); Chloride 107 mmol/L (98-107); Creatinine, Serum 1.22 mg/dL (0.70-1.30); EST Glomerular Filtration Rate 66 mL/min (>60); Est Glom Filt Rate - Afr Amer 80 mL/min (>60); Estimated Creatinine Clearance 71.47 ml/min; Globulin 3.4 g/dL (2.2-4.2); Glucose 101 mg/dL (74-106); Potassium 3.7 mmol/L (3.5-5.1); Protein, Total 7.4 g/dL (6.4-8.2); Sodium Level 141 mmol/L (136-145)
[2022-12-24] MEDS: Neomycin/Bacitracin/Polymyxin Opth. Ointment 1 APPLIC RIGHT EYE (16:44)
[2022-12-24] MEDS: HYDROmorphone 1 MG/ML Syringe IV (17:17)
--- NOTE | 2022-12-24 18:12 | CT_ITS ---
EXAM: CT HEAD WITHOUT INTRAVENOUS CONTRAST CLINICAL INDICATION: headache TECHNIQUE: Multiple axial images were obtained of the head without intravenous contrast. This CT exam was performed using one or more of the following dose reduction techniques: automated exposure control, adjustment of the mA and/or kV according to patient size, and/or use of iterative reconstruction technique. COMPARISON: CT head, 08/18/2022 FINDINGS: BRAIN AND EXTRA-AXIAL SPACES: No significant abnormality. No intra- or extra-axial hemorrhage. No evidence of acute infarct. No intracranial mass or mass effect. There is preservation of the kwon/white matter interface. Ventricles are appropriate for age. Basal cisterns are patent. BONES/JOINTS: No acute osseous abnormalities. The calvarium and skull base are intact. SINUSES: Near complete opacification of the right maxillary sinus, worse when compared to the prior examination. MASTOID AIR CELLS: No significant effusion. ORBITS: No acute findings. NASAL CAVITY/SEPTUM: Chronic unchanged deformities of the bilateral nasal bones likely secondary to chronic injury. CT/Brain/Head without Contrast IMPRESSION: 1. No CT evidence of acute intracranial pathology. 2. Near complete opacification of the right maxillary sinus, worse when compared to the prior examination. Correlate for associated symptoms. Electronically Signed: Allen Velazquez DO at 20:22 EDT ,
[2022-12-24] MEDS: hydrALAZINE 20 MG/ML Vial 10 MG IV (18:22)
--- NOTE | 2022-12-24 18:51 | ED.RN ---
PER DR. ANN, HOLD CATAPRES FOR NOW.
[2022-12-24] MEDS: cloNIDine HCl 0.1 MG Tablet 0.2 MG PO (19:22)
--- NOTE | 2022-12-24 19:42 | PCM.HOSP.N ---
Hospitalist Note Called by ED staff earlier this evening requesting admission for patient. Discussed patient's disposition at length with ED provider. Patient presented to ED with 2 to 3-day history of right eye pain with foreign body sensation. ED noted low concern for any right eye issues requiring admission. However, patient was found to have severe hypertension with reported 10 out of 10 headache. Initial blood pressure noted to be 241/109. Patient reported a history of progressive hypertension that had worsened over the last few months. Had headaches that correlated with hypertension, and he noted this headache seemed similar to previous. Noted that his headaches improved with opiates. Was given doses of IV labetalol 10 mg and IV hydralazine 10 mg, as well as doses of IV morphine 4 mg, IV Dilaudid 1 mg and IV Zofran 4 mg. Unfortunately patient did not have much improvement of blood pressure or headache with these medications. Saw patient at bedside in the ED and he was sitting comfortably in bed, in no acute distress at that time. He reported continued headache at about 8 out of 10. He noted that he was admitted to the ICU at a different hospital about 3 to 4 months ago for severe hypertension; they gave him similar medications there without significant improvement and he was discharged on multiple p.o. medications. Has followed up with his primary doctor multiple times as well as nephrology multiple times since then. Has been on 5 blood pressure medications at home recently but continues to have pressures in the 190s to 200s systolic fairly consistently. Conducted an extensive chart review of patient including accessing [facility] records as most management has been done at outside hospitals. Patient was admitted to [facility] back in mid August 2022. Went to the ED with a headache then and was found to be very hypertensive. Was given multiple doses of IV labetalol, hydralazine and p.o. clonidine as well as IV pain medications without improvement in his blood pressure. He was then admitted to the ICU on a Cardene drip for further management. Nephrology and cardiology saw him there, started him on multiple p.o. medications and wean him off the Cardene drip. Patient continued to have systolic blood pressures in the 180s to 190s despite this interventions. Patient ended up leaving AMA after 2 days in the hospital because of no improvement in his blood pressure despite interventions. Since then, patient has seen nephrology and his primary multiple times as he noted. Last saw nephrology on 12/13 and saw his primary on 12/15. Has had extensive work-up to this point that is largely been unremarkable. No significant abnormalities were seen on CT chest abdomen pelvis. Recently had renal ultrasound with Doppler done that did not show renal artery stenosis. Lab work-up including metanephrines, renin?aldosterone, cortisol, ACTH and other tests have been normal. Plan per nephrology was to get MRI of patient's kidneys, however patient has spinal stimulator and cannot undergo MRI. Current plan is for patient to have repeat CT abdomen pelvis with IV contrast done on Tuesday 12/26, with follow-up with his primary on 12/29 and follow-up with nephrology in the next few weeks. On further discussion, decided to get CT brain without contrast to rule out that patient was having an SAH due to persistent severe hypertension. Patient otherwise has no other signs of hypertensive urgency with regard to symptoms or lab findings. CT brain has been completed and on my read, appears similar to CT brain from 08/18/2022 and does not appear to show any evidence of intracranial bleed. As long as formal CT brain read is negative, patient will be okay for discharge home with close outpatient follow-up.
--- NOTE | 2022-12-24 20:23 | NURSING ---
Pt refused to be admited, refused to stay for CT results. AMA papers signed. IV dc'ed
--- NOTE | 2022-12-24 20:26 | EDS_ITS ---
HPI History of Present Illness Chief Complaint: Eye Problem [facility] Medical History Anxiety and depression Diverticulitis Nephrolithiasis Osteoarthritis Home Medications amoxicillin 875 mg-potassium clavulanate 125 mg tablet 1 tab PO Q8H #30 tabs 06/26/21 [Rx Last Taken Unknown] ondansetron 4 mg disintegrating tablet 4 mg PO Q8H PRN PRN Nausea #10 tabs 06/26/21 [Rx Last Taken Unknown] hydrocodone-acetaminophen 5-325mg 5mg-325mg 1 tab PO Q6H PRN pain 5 days #20 tabs 06/30/21 [Rx Last Taken Unknown] cyclobenzaprine 10 mg tablet 10 mg PO TID PRN Muscle Spasm #20 TABLETS 10/22/22 [Rx Last Taken Unknown] hydrocodone-acetaminophen 5-325mg 5mg-325mg 1 tab PO Q4H PRN PRN Pain 2 days #10 TABLETS 10/22/22 [Rx Last Taken Unknown] amlodipine 10 mg tablet 10 mg PO DAILY 12/24/22 [History Last Taken Unknown] chlorthalidone 25 mg tablet 25 mg PO DAILY 12/24/22 [History Last Taken Unknown] finasteride 5 mg tablet 5 mg PO DAILY 12/24/22 [History Last Taken Unknown] hydralazine 50 mg tablet 50 mg PO TID 12/24/22 [History Last Taken Unknown] labetalol 200 mg tablet 300 mg PO BID 12/24/22 [History Last Taken Unknown] lisinopril 10 mg tablet 40 mg PO BID 12/24/22 [History Last Taken Unknown] Allergy/AdvReac Type Severity Reaction Status Date / Time No Known Allergies Allergy Verified 10/22/22 17:29 Social History Smoking Status: Current every day smoker tobacco type: cigarettes EXAM Physical Exam Const Vital Signs: 12/24/22 15:15 12/24/22 15:40 12/24/22 16:31 Temperature 96.3 F L Temperature Source Temporal Pulse Rate 84 76 69 Respiratory Rate 18 18 14 Blood Pressure 241/109 H 233/117 H 186/103 H Blood Pressure Mean 153 155 130 Pulse Ox 99 97 96 Oxygen Delivery Method Room Air Room Air Room Air 12/24/22 17:39 12/24/22 18:45 12/24/22 18:49 Temperature 98.3 F 98.3 F Temperature Source Oral Pulse Rate 71 74 76 Respiratory Rate 18 16 15 Blood Pressure 173/146 H 173/146 H Blood Pressure Mean 155 155 Pulse Ox 96 98 97 Oxygen Delivery Method Room Air Room Air 12/24/22 19:09 12/24/22 19:23 Temperature Temperature Source Pulse Rate 75 75 Respiratory Rate 16 16 Blood Pressure 205/113 H 190/108 H Blood Pressure Mean 143 135 Pulse Ox 97 97 Oxygen Delivery Method Room Air Room Air MDM MDM Lab Data Labs: Laboratory Results - last 24 hr 12/24/22 16:10 Sodium 141 Potassium 3.7 Chloride 107 Carbon Dioxide 29.0 Anion Gap 5 BUN 18 Creatinine 1.22 Estim Creat Clear Calc 71.47 Est GFR (MDRD) Af Amer 80 Est GFR (MDRD) Non-Af 66 BUN/Creatinine Ratio 14.8 Glucose 101 Calcium 9.2 Total Bilirubin 0.30 AST 15 ALT 33 Alkaline Phosphatase 73 Total Protein 7.4 Albumin 4.0 Globulin 3.4 Albumin/Globulin Ratio 1.2 Radiography Diagnostic Testing: Clinical Impression(s) from Imaging Studies Brain CT 12/24/22 18:[address]: 1[address] evidence of acute intracranial pathology. 2. Near complete opacification of the right maxillary sinus, worse when compared to the prior examination. Correlate for associated symptoms. Electronically Signed: Allen Velazquez DO at 20:22 EDT , Discharge Plan Dx/Rx/DC Orders Clinical Impression: Headache, Hypertension, Hordeolum, Sinusitis Disposition Disposition: Acute Care Hospital [facility]
== END 2022-12-24 20:23 | disposition home or self-care (01) ==
PROVIDERS: Emergency Provider Emergency Medicine; PCP Nurse Practitioner Family; Visit Provider Emergency Medicine
DX: I10 Essential (primary) hypertension (principal); F17.210 Nicotine dependence, cigarettes, uncomplicated; H00.019 Hordeolum externum unspecified eye, unspecified eyelid; R51.9 Headache, unspecified; Z79.899 Other long term (current) drug therapy
CPT/HCPCS: 70450; 80053; 96374; 96375; 99285; J7030; A4216; J2405

== ENCOUNTER 2023-04-10 16:51 | Emergency (ER) | payer SELFPAY ==
[2023-04-10 16:52] VITALS: BP 219/113; PULSE 91; RESP 22; TEMP 36.2; O2SAT 99; BMI 38.3
--- NOTE | 2023-04-10 17:13 | EDS_ITS ---
HPI History of Present Illness HPI Narrative: Patient presents with pain in his left posterior thigh that occurred today approximately 90 minutes prior to arrival. Patient states he was lifting a couch when he felt a severe sharp pain in the posterior aspect of his left thigh. Patient states it radiates around to his left knee to the medial aspect of his left knee and proximal tibia. Patient describes his pain as hard . Patient states it is worse with weightbearing. Patient is nothing makes it better. Patient states his leg feels like it wants to give out. Patient denies any back pain. Patient denies any bowel or bladder changes. Patient denies any saddle anesthesia. Patient states he took ibuprofen but this did not help. Chief Complaint: Lower Extremity Injury Onset/Context/Timing Onset: Today Context: Sudden Onset Timing: Continuous Location: Left posterior thigh Worsened by: Weightbearing Relieved by: Nothing Associated Symptoms Associated Symptoms: Positive for Weakness; Negative for Parasthesia or Loss of Funtion [facility] History (Updated 04/10/23 @ 18:[address] Malcom Holman, DO) Anxiety and depression Diverticulitis Hypertension Nephrolithiasis Osteoarthritis Home Medications amoxicillin 875 mg-potassium clavulanate 125 mg tablet 1 tab PO Q8H #30 tabs 06/26/21 [Rx Last Taken Unknown] ondansetron 4 mg disintegrating tablet 4 mg PO Q8H PRN PRN Nausea #10 tabs 06/26/21 [Rx Last Taken Unknown] cyclobenzaprine 10 mg tablet 10 mg PO TID PRN Muscle Spasm #20 TABLETS 10/22/22 [Rx Last Taken Unknown] hydrocodone-acetaminophen 5-325mg 5mg-325mg 1 tab PO Q4H PRN PRN Pain 2 days #10 TABLETS 10/22/22 [Rx Last Taken Unknown] amlodipine 10 mg tablet 10 mg PO DAILY 12/24/22 [History Last Taken Unknown] chlorthalidone 25 mg tablet 25 mg PO DAILY 12/24/22 [History Last Taken Unknown] doxycycline hyclate 100 mg capsule 100 mg PO BID #20 caps 12/24/22 [Rx Last Taken Unknown] finasteride 5 mg tablet 5 mg PO DAILY 12/24/22 [History Last Taken Unknown] hydralazine 50 mg tablet 50 mg PO TID 12/24/22 [History Last Taken Unknown] labetalol 200 mg tablet 300 mg PO BID 12/24/22 [History Last Taken Unknown] lisinopril 10 mg tablet 40 mg PO BID 12/24/22 [History Last Taken Unknown] hydrocodone-acetaminophen 5-325mg 5mg-325mg 1 tab PO Q6H PRN pain 3 days #12 tabs 04/10/23 [Rx Last Taken Unknown] Allergy/AdvReac Type Severity Reaction Status Date / Time No Known Allergies Allergy Verified 10/22/22 17:29 Surgical History (Updated 04/10/23 @ 17:[address] Malcom Holman DO) History of nasal surgery History of repair of ACL Hx of arthroscopic knee surgery Hx of total knee replacement Social History Smoking Status: Current every day smoker tobacco type: cigarettes ROS ROS ED Constitutional Constitutional ED: Denies chills or fever(s) Eyes Eyes: Denies blurry vision or change in vision ENT ENT ED: Denies rhinorrhea or sore throat Cardiovascular Cardiovascular: Denies chest pain or palpitations Respiratory/Chest Respiratory/Chest: Denies cough or dyspnea Gastrointestinal Gastrointestinal: Denies nausea or vomiting Genitourinary Genitourinary ED: Denies dysuria or hematuria Musculoskeletal Musculoskeletal: Denies back pain or neck pain Integumentary Denies abscess or rash Neurologic Neurologic: Denies headache(s) or weakness Allergic/Immunologic Allergic/Immunologic ED: Denies mouth swelling or urticaria EXAM Physical Exam Const Vital Signs: 04/10/23 16:52 Temperature 97.1 F L Temperature Source Temporal Pulse Rate 91 Respiratory Rate 22 H Blood Pressure 219/113 H Blood Pressure Mean 148 Pulse Ox 99 Oxygen Delivery Method Room Air Positive well nourished and well developed General Appearance ED: well developed and NAD HEENT Reports moist mucous membranes Back/Spine Lumbar Spine / Lower Back: Negative for lumbar spinal tenderness Extremity Extremity Narrative: There is tenderness over the posterior aspect of the left thigh. There is no bony crepitance or step-off noted. Range of motion was limited in all motions of the left hip and left knee secondary to pain. Strength is 5/5 bilaterally in the lower extremities. There are no sensory deficits noted. General Extremety ED: Yes weight-bearing difficulty General Extremity: weight-bearing difficulty Neuro oriented x3, CN's II-XII intact bilaterally, moves all extremities and no sensory deficits noted Sensorium / Orientation: alert Motor Exam: strength 5/5 throughout Deep Tendon Reflexes: Rt Patellar (L4): 2+, Lt Patellar (L4): 2+, Rt Ankle (S1): 2+ and Lt Ankle (S1): 2+ Deep Tendon Reflexes Back: Rt Patellar (L4): 2+, Lt Patellar (L4): 2+, Rt Ankle (S1): 2+ and Lt Ankle (S1): 2+ Psych mental status grossly normal MDM MDM MDM Narrative Medical decision making narrative: Differential diagnosis includes occult fracture, muscle strain, muscle tear, tendon rupture, and lumbar radiculopathy. X-rays of the femur will be obtained to assess for occult fracture. Radiography Diagnostic Testing: Clinical Impression(s) from Imaging Studies Femur X-Ray 04/10/23 17:45 IMPRESSION: No acute fracture. Degenerative and postoperative change at the knee. Electronically Signed: Miguel Green MD at 18:06 EST Reading Location ID and State: [address] [place] [address] , Service support , X-rays of the left femur were obtained. There are 4 views. On my independent interpretation, there is no acute fracture. There are postsurgical changes in the distal femur and proximal tibia. There is no loosening or displacement of the hardware. Radiologist also interpreted the x-rays and agrees. Treatment and Re-Evaluation Narrative: Patient was given injection of morphine here. Patient was advised of his findings. Patient was advised that this is most likely muscular strain. Patient was given a prescription for [place]. Patient was instructed use ice to the area. Patient was instructed to follow-up with his primary care physician in 5 to 7 days. Patient understood and was agreeable with the plan. All questions were answered. Discharge Plan Triage Chief Complaint: Lower Extremity Injury ED Provider: Malcom Holman Dx/Rx/DC Orders Clinical Impression: Strain of posterior muscle of left thigh, Tobacco use Instructions: ED Muscle Strain, Extremity Prescriptions: Continued hydrocodone-acetaminophen 5-325 mg tablet 1 tab PO Q6H PRN (Reason: pain) 3 Days Qty: 12 0RF No Action amoxicillin-pot clavulanate 875-125 mg tablet 1 tab PO Q8H Qty: 30 0RF Hold Instructions: Pt has been DC'd ondansetron 4 mg tablet,disintegrating 4 mg PO Q8H PRN PRN (Reason: Nausea) Qty: 10 0RF cyclobenzaprine [cyclobenzaprine] 10 mg tablet 10 mg PO TID PRN (Reason: Muscle Spasm) Qty: 20 0RF Hold Instructions: Pt has been DC'd hydrocodone-acetaminophen [hydrocodone-acetaminophen] 5-325 mg tablet 1 tab PO Q4H PRN PRN (Reason: Pain) 2 Days Qty: 10 0RF Hold Instructions: Pt has been DC'd labetalol 200 mg tablet 300 mg PO BID Patient Comments: TAKE 1 & 1/2 (ONE AND ONE-HALF) TABLETS BY MOUTH TWICE DAILY hydralazine 50 mg tablet 50 mg PO TID Patient Comments: TAKE 1 TABLET BY MOUTH THREE TIMES DAILY finasteride 5 mg tablet 5 mg PO DAILY Patient Comments: Take 1 tablet by mouth once daily. chlorthalidone 25 mg tablet 25 mg PO DAILY Patient Comments: Take 1 tablet by mouth once daily. amlodipine 10 mg tablet 10 mg PO DAILY Patient Comments: Take 1 tablet by mouth once daily. lisinopril 10 mg tablet 40 mg PO BID doxycycline hyclate 100 mg capsule 100 mg PO BID Qty: 20 0RF Primary Care Provider: Jossy Natarajan NP Referrals: Jossy Natarajan [employer], [employer] [Primary Care Provider] - 3-5 Days Disposition Disposition: Home, Self Care
[2023-04-10] MEDS: Morphine 4 MG/ML Syringe IM (17:41)
--- NOTE | 2023-04-10 17:45 | RAD_ITS ---
STUDY: X-RAY - LEFT FEMUR REASON FOR STUDY: Male, 52 years old. Injury/Pain TECHNIQUE: Frontal and lateral view(s) of the femur. COMPARISON: None. FINDINGS: Normal visualized femur. There is no acute fracture. There is degenerative and postoperative change of the knee including tunneling and hardware from previous anterior cruciate ligament reconstruction. Normal visualized soft tissue structure. RAD/Femur Min 2 Views IMPRESSION: No acute fracture. Degenerative and postoperative change at the knee. Electronically Signed: Miguel Green MD at 18:06 EST ,
--- OUTSIDE RECORDS SUMMARY | 2023-04-10 17:53 | XMS RPT_ITS | CCD ---
Author Name Unknown Address [address] [place] [address] Organization [facility] Care Team Providers Care 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 Name Role Phone BALBIR LAKE Admitting Unavailable BALBIR LAKE Attending Unavailable BALBIR LAKE Primary Care Unavailable Jacinta CORONA Consulting Unavailable Jacinta CORONA Referring Unavailable PROVIDER, UNKNOWN Consulting Unavailable Estefania Guardado Primary Care Provider Estefania Guardado Primary Care Provider [phone] Cecilio Lord Unavailable Unavailable Estefania Guardado Primary Care Provider Nilay Francois PA-C Unavailable Miguel Bennett MD Unavailable Queden CNC PROGRAMMER.Jossy SCHMITZ A Primary Care Provider Kenji PALACIOS, Rosie Unavailable [phone] Nilay Francois PA-C Unavailable Kenji PT, Rosie Unavailable [phone] Queden CNC PROGRAMMER.Jossy SCHMITZ A Primary Care Provider Nilay Francois PA-C Unavailable Miguel Bennett MD Unavailable [phone] Queden CNC PROGRAMMER.Jossy SCHMITZ A Primary Care Provider Kenji PALACIOS, Rosie Unavailable [phone] Kati Robles RN Unavailable Unavailable PHILOMENA DOUGLAS Attending Unavailable CAM PACK Referring Unavailable QUEDEN, JOSSY A Primary Care Unavailable NASRA MEDINA Admitting Unavailabl e MORTENSEN, AMITKUMAR Consulting Unavailable MIGUEL BENNETT Referring Unavailable MIEDEL, ESTEFANIA E Primary Care Unavailable ARASH ABRAHAM Consulting Unavailable MIGUEL BENNETT Admitting Unavailable MIGUEL BENNETT Attending Unavailable MIEDEL, ESTEFANIA E Primary Care Unavailable Kenji PT, Rosie Unavailable Kt Mortensen MD Unavailable [phone] QUEDEN, JOSSY A Primary Care Unavailable QUEDEN, JOSSY A Referring Unavailable QUEDEN, JOSSY A Primary Care Unavailable VETOVITZ, MONICA Referring Unavailable QUEDEN, JOSSY A Primary Care Unavailable MIGUEL BENNETT Attending Unavailable QUEDEN, JOSSY A Primary Care Unavailable QUEDEN, JOSSY A Primary Care Unavailable QUEDEN, JOSSY A Referring Unavailable CINTHIA AVILEZ Attending Unavailable QUEDEN, JOSSY A Primary Care Unavailable VETOVITZ, MONICA Referring Unavailable QUEDEN, JOSSY A Primary Care Unavailable MIGUEL BENNETT Referring Unavailable VETOVITZ, MONICA Attending Unavailable QUEDEN, JOSSY A Primary Care Unavailable MIGUEL BENNETT Attending Unavailable QUEDEN, JOSSY A Primary Care Unavailable MORTENSEN, AMITKUMAR Referring Unavailable QUEDEN, JOSSY A Primary Care Unavailable CINTHIA KIRBY Referring Unavailable QUEDEN, JOSSY A Primary Care Unavailable CINTHIA AVILEZ Referring Unavailable QUEDEN, JOSSY A Primary Care Unavailable MORTENSEN, AMITKUMAR Referring Unavailable QUEDEN, JOSSY A Primary Care Unavailable MORTENSEN, AMITKUMAR Referring Unavailable QUEDEN, JOSSY A Primary Care Unavailable MIGUEL BENNETT Referring Unavailable MIGUEL BENNETT Attending Unavailable QUEDEN, JOSSY A Primary Care Unavailable VETOVITZ, MONICA Referring Unavailable QUEDEN, JOSSY A Primary Care Unavailable QUEDEN, JOSSY A Referring Unavailable O'JOSE CINDY Attending Unavailable QUEDEN, JOSSY A Primary Care Unavailable QUEDEN, JOSSY A Referring Unavailable O'JOSECINDY Attending Unavailable QUEDEN, JOSSY A Primary Care Unavailable QUEDEN, JOSSY A Referring Unavailable QUEDEN, JOSSY A Primary Care Unavailable MIGUEL BENNETT Referring Unavailable MIGUEL BENNETT Attending Unavailable QUEDEN, JOSSY A Primary Care Unavailable QUEDEN, JOSSY A Primary Care Unavailable BAILEEFIORPETROSMONICA Referring Unavailable Kenji PT, Rosie Unavailable [phone] QUEDEN, JOSSY A Primary Care Unavailable RAMONE CAM Attending Unavailable QUEDEN, JOSSY A Attending Unavailable QUEDEN, JOSSY A Referring Unavailable QUEDEN, JOSSY A Primary Care Unavailable QUEDEN, JOSSY A Attending Unavailable QUEDEN, JOSSY A Primary Care Unavailable QUEDEN, JOSSY A Primary Care Unavailable QUEDEN, JOSSY A Attending Unavailable QUEDEN, JOSSY A Primary Care Unavailable QUEDEN, JOSSY A Attending Unavailable QUEDEN, JOSSY A Primary Care Unavailable QUEDEN, JOSSY A Attending Unavailable QUEDEN, JOSSY A Referring Unavailable QUEDEN, JOSSY A Referring Unavailable QUEDEN, JOSSY A Primary Care Unavailable QUEDEN, JOSSY A Attending Unavailable QUEDEN, JOSSY A Referring Unavailable QUEDEN, JOSSY A Attending Unavailable QUEDEN, JOSSY A Primary Care Unavailable MACHOJEFFREY A Attending Unavailable QUEDEN, JOSSY A Primary Care Unavailable QUEDEN, JOSSY A Referring Unavailable QUEDEN, JOSSY A Attending Unavailable QUEDEN, JOSSY A Primary Care Unavailable Allergies Allergy Classification Reported Allergen(s) Allergy Type Date of Onset Reaction(s) Facility (3 sources) Aspirin; Translations: [ASPIRIN] Drug Allergy 10-30-2003 [facility] Repository (20 sources) Aspirin Drug Allergy 10-30-2003 Vomiting [facility] Work Phone: Medications Current Medications Medication Drug Class(es) Dates Sig (Normalized) Sig (Original) acetaminophen 325 mg / HYDROcodone bitartrate 5 mg oral tablet (20 sources) Opioid Agonist Start: 01-20-2023 End: 02-02-2023 take 1 tablet by mouth every eight hours as needed for pain HYDROcodone-acetam inophen (NORCO) 5-325 mg per tablet Indications: Intractable headache, unspecified chronicity pattern, unspecified headache type , Left flank pain Take 1 tablet by mouth every 8 hours as needed for pain for up to 7 days. 21 tablet 0 01/26/2023 02/02/2023 Active Completed/Discontinued Medications Medication Drug Class(es) Dates Sig (Normalized) Sig (Original) acetaminophen 500 mg oral tablet (20 sources) Start: 12-02-2021 End: 04-18-2022 take 2 tablets by mouth every eight hours as needed acetaminophen (TYLENOL) 500 mg tablet Take 2 tablets by mouth every 8 hours as needed for pain. 90 tablet 0 12/02/2021 04/18/2022 Discontinued (Changing Therapy/Dosage Form) Problems Active Problems Problem Classification Problem Date Documented Da te Episodic/Chronic Acute bronchitis (1 source) Viral bronchitis; Translations: [Acute bronchitis due to other specified organisms] Episodic Blindness and vision defects (2 sources) Blurring of visual image; Translations: [Other visual disturbances] Episodic Chronic kidney disease (6 sources) Anemia of renal disease; Translations: [Chronic kidney disease, unspecified] Onset: 12-12-2022 11-10-2022 Chronic Deficiency and other anemia (1 source) Anemia in chronic kidney disease; Translations: [Anemia of renal disease] Onset: 12-12-2022 Chronic Disorders of lipid metabolism (20 sources) Mixed hyperlipidemia; Translations: [Mixed hyperlipidemia] Onset: 09-01-2022 Chronic Disorders of teeth and jaw (1 source) Infection of tooth; Translations: [Periapical abscess without sinus] Episodic Essential hypertension (20 sources) Essential hypertension; Translations: [Essential (primary) hypertension] Onset: 10-01-2015 10-01-2015 Chronic Genitourinary symptoms and ill-defined conditions (4 sources) Increased frequency of urination; Translations: [Frequency of micturition] Onset: 12-12-2022 Episodic Headache; including migraine (3 sources) Headache; including migraine; Translations: [Acute intractable headache, unspecified headache type] Onset: 08-23-2022 Hypertension with complications and secondary hypertension (20 sources) Hypertensive urgency ; Translations: [Hypertensive urgency] Onset: 08-31-2022 08-31-2022 Chronic Nausea and vomiting (1 source) Nausea; Translations: [Nausea] Episodic Nutritional deficiencies (3 sources) Vitamin D deficiency; Translations: [Vitamin D deficiency, unspecified] Onset: 12-12-2022 11-10-2022 Chronic Osteoarthritis (20 sources) Unilateral post-traumatic osteoarthritis, right knee; Translations: [Osteoarthrosis, localized, secondary, lower leg] Onset: 11-15-2021 Chronic Other connective tissue disease (17 sources) History of total knee arthroplasty; Translations: [Presence of right artificial knee joint] Chronic Other connective tissue disease (2 sources) Presence of right artificial knee joint; Translations: [S/P total knee arthroplasty, right] Onset: 12-01-2021 Chronic Other connective tissue disease (1 source) Presence of unspecified artificial knee joint; Translations: [Status post knee replacement, unspecified laterality] Onset: 12-29-2021 Chronic Other diseases of kidney and ureters (2 sources) Cyst of kidney; Translations: [Cyst of kidney, acquired] 12-22-2022 Episodic Other diseases of kidney and ureters (1 source) Cyst of kidney, acquired; Translations: [Renal cyst] Onset: 12-26-2022 Episodic Other lower respiratory disease (1 source) Cough; Translations: [Acute cough] Episodic Other lower respiratory disease (1 source) Dyspnea on exertion; Translations: [Other forms of dyspnea] 02-03-2023 Episodic Other nervous system disorders (6 sources) Complex regional pain syndrome of lower limb; Translations: [Complex regional pain syndrome I of unspecified lower limb] Onset: 11-10-2003 11-10-2003 Chronic Other nervous system disorders (20 sources) Chronic postoperative pain; Translations: [Other chronic postprocedural pain] Onset: 12-02-2015 12-02-2015 Chronic Other nervous system disorders (20 sources) Complex regional pain syndrome; Translations: [Complex regional pain syndrome I, unspecified] Onset: 11-10-2003 Chronic Other nervous system disorders (1 source) Other chronic pain; Translations: [Chronic left flank pain] Onset: 11-17-2022 Chronic Other nervous system disorders (1 source) Complex regional pain syndrome I, unspecified; Translations: [RSD (reflex sympathetic dystrophy)] Onset: 11-15-2021 Chronic Other nervous system disorders (20 sources) Postoperative pain ; Translations: [Other acute postprocedural pain] Episodic Other non-traumatic joint disorders (2 sources) Pain in right knee; Translations: [Pain in joint, lower leg] Episodic Other non-traumatic joint disorders (2 sources) Pain in right hip joint; Translations: [Pain in right hip] Episodic Other nutritional; endocrine; and metabolic disorders (20 sources) Severe obesity; Translations: [Morbid (severe) obesity due to excess calories] Onset: 11-15-2021 Chronic Other nutritional; endocrine; and metabolic disorders (20 sources) Obese class I; Translations: [Obesity, unspecified] Onset: 08-24-2022 Chronic Other nutritional; endocrine; and metabolic disorders (1 source) Obesity, unspecified; Translations: [Obesity, Class I, BMI 30-34.9] Onset: 08-31-2022 Chronic Other nutritional; endocrine; and metabolic disorders (1 source) Morbid (severe) obesity due to excess calories; Translations: [Class 2 severe obesity due to excess calories with serious comorbidity and body mass index (BMI) of 35.0 to 35.9 in adult] Onset: 11-15-2021 Chronic Other nutritional; endocrine; and metabolic disorders (1 source) Body mass index (BMI) 35.0-35.9, adult; Translations: [Class 2 severe obesity due to excess calories with serious comorbidity and body mass index (BMI) of 35.0 to 35.9 in adult] Onset: 11-15-2021 Chronic Other nutritional; endocrine; and metabolic disorders (1 source) Hyperuricemia; Translations: [Hyperuricemia without signs of inflammatory arthritis and tophaceous disease] 11-10-2022 Episodic Other upper respiratory infections (1 source) Maxillary sinusitis; Translations: [Chronic maxillary sinusitis] Chronic Peripheral and visceral atherosclerosis (5 sources) Renal artery stenosis; Translations: [Atherosclerosis of renal artery] Onset: 11-17-2022 11-10-2022 Chronic Rehabilitation care; fitting of prostheses; and adjustment of devices (2 sources) Complication associated with nervous system implant; Translations: [Encounter for adjustment and management of neurostimulator] Onset: 12-15-2022 01-22-2023 Episodic Residual codes; unclassified (20 sources) H/O Spinal surgery; Translations: [Presence of other specified functional implants] Onset: 10-01-2015 10-01-2015 Chronic Residual codes; unclassified (3 sources) At risk of apnea; Translations: [Other specified personal risk factors, not elsewhere classified] Episodic Residual codes; unclassified (1 source) Other specified personal risk factors, not elsewhere classified; Translations: [At risk for obstructive sleep apnea] Onset: 12-15-2022 Episodic Spondylosis; intervertebral disc disorders; other back problems (5 sources) Degeneration of lumbar intervertebral disc; Translations: [Other intervertebral disc degeneration, lumbar region] Onset: 12-29-2022 12-29-2022 Chronic Substance-related disorders (20 sources) Moderate smoker (20 or less per day) ; Translations: [Nicotine dependence, cigarettes, uncomplicated] Onset: 11-28-2021 Chronic Unclassified (1 source) Acute cough; Translations: [Acute cough] Onset: 07-27-2022 Past or Other Problems Problem Classification Problem Date Documented Da te Episodic/Chronic Abdominal pain (20 sources) Right flank pain; Translations: [Unspecified abdominal pain] Onset: 10-24-2022 Episodic Calculus of urinary tract (12 sources) History of calculus of kidney; Translations: [Personal history of urinary calculi] Onset: 10-24-2022 Episodic Headache; including migraine (20 sources) Headache; Translations: [Headaches] Onset: 11-15-2021 Episodic Joint disorders and dislocations; trauma-related (20 sources) Acute meniscal tear, medial; Translations: [Complex tear of medial meniscus, current injury, right knee, initial encounter] Onset: 10-20-2015 10-20-2015 Episodic Other non-traumatic joint disorders (1 source) Pain in right hip; Translations: [Pain of right hip] Onset: 08-01-2022 Episodic Sprains and strains (20 sources) Rupture of anterior cruciate ligament of right knee; Translations: [Sprain of anterior cruciate ligament of right knee, initial encounter] Onset: 10-31-2016 10-31-2016 Episodic Results Test Name Value Interpretation Reference Range Facil ity Vital Signs Date Time Vital Sign Value Performing Clinician Edy smith 02-03-2023 11:36-0500 Diastolic blood pressure 95 mm[Hg] Jeffrey Munguia MD Work Phone: [facility] 02-03-2023 11:36-0500 Systolic blood pressure 160 mm[Hg] Jeffrey Munguia MD Work Phone: [facility] 02-03-2023 10:41-0500 Body height 177.8 cm Jeffrey Munguia MD Work Phone: [facility] 02-03-2023 10:41-0500 Body weight 119.39 kg Jeffrey Munguia MD Work Phone: [facility] 02-03-2023 10:41-0500 Heart rate 80 /min Jeffrey Munguia MD Work Phone: [facility] 02-03-2023 10:41-0500 SaO2% (BldA) [Mass fraction] 99 % Jeffrey Munguia MD Work Phone: [facility] 01-20-2023 16:44-0400 Diastolic blood pressure 108 mm[Hg] Jossy Queden 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 Work Phone: [facility] 01-20-2023 16:44-0400 Systolic blood pressure 168 mm[Hg] Jossy Queden 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 Work Phone: [facility] 01-20-2023 15:55-0400 Body height 177.8 cm Jossy Queden 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 Work Phone: [facility] 01-20-2023 15:55-0400 Body temperature 98.29 [degF] Jossy Queden 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 Work Phone: [facility] 01-20-2023 15:55-0400 Body weight 118.39 kg Jossy Queden 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 Work Phone: [facility] 01-20-2023 15:55-0400 Heart rate 81 /min Jossy Queden 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 Work Phone: [facility] 01-20-2023 15:55-0400 Respiratory rate 18 /min Jossy Queden 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 Work Phone: [facility] 01-20-2023 15:55-0400 SaO2% (BldA) [Mass fraction] 98 % Jossy Queden 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 Work Phone: [facility] 12-29-2022 16:50-0400 Diastolic blood pressure 108 mm[Hg] Jossy Queden 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 Work Phone: [facility] 12-29-2022 16:50-0400 Systolic blood pressure 178 mm[Hg] Jossy Queden 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 Work Phone: [facility] 12-29-2022 16:19-0400 Body height 177.8 cm Jossy Natarajan 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 Work Phone: [facility] 12-29-2022 16:19-0400 Body temperature 98.01 [degF] Jossy Daiden 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 Work Phone: [facility] 12-29-2022 16:19-0400 Body weight 117.03 kg Jossy Natarajan 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 Work Phone: [facility] 12-29-2022 16:19-0400 Heart rate 81 /min Jossy Daiden 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 Work Phone: [facility] 12-29-2022 16:19-0400 SaO2% (BldA) [Mass fraction] 95 % Jossy Natarajan 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 Work Phone: [facility] 12-24-2022 14:42-0400 Body temperature 97.81 [degF] Andreinalizbet Stroud 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 Work Phone: [facility] 12-24-2022 14:42-0400 Body weight 117.03 kg Andreina Stroud 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 Work Phone: [facility] 12-24-2022 14:42-0400 Diastolic blood pressure 102 mm[Hg] Andreina Stroud 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 Work Phone: [facility] 12-24-2022 14:42-0400 Heart rate 86 /min Andreina Stroud 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 Work Phone: [facility] 12-24-2022 14:42-0400 Respiratory rate 16 /min Andreina Stroud 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 Work Phone: [facility] 12-24-2022 14:42-0400 SaO2% (BldA) [Mass fraction] 99 % Andreina Stroud 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 Work Phone: [facility] 12-24-2022 14:42-0400 Systolic blood pressure 182 mm[Hg] Andreina Stroud 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 Work Phone: [facility] 11-29-2022 13:44-0400 Diastolic blood pressure 90 mm[Hg] Jossy Queden 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 Work Phone: [facility] 11-29-2022 13:44-0400 Systolic blood pressure 170 mm[Hg] Jossy Queden 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 Work Phone: [facility] 11-29-2022 13:12-0400 Body height 177.8 cm Jossy Queden 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 Work Phone: [facility] 11-29-2022 13:12-0400 Body temperature 98.6 [degF] Jossy Queden 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 Work Phone: [facility] 11-29-2022 13:12-0400 Body weight 113.4 kg Jossy Queden 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 Work Phone: [facility] 11-29-2022 13:12-0400 Heart rate 89 /min Jossy Queden 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 Work Phone: [facility] 11-29-2022 13:12-0400 Respiratory rate 18 /min Jossy Queden 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 Work Phone: [facility] 11-29-2022 13:12-0400 SaO2% (BldA) [Mass fraction] 97 % Jossy Queden 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 Work Phone: [facility] 11-17-2022 16:40-0400 Body height 177.8 cm Jossy Queden 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 Work Phone: [facility] 11-17-2022 16:40-0400 Body temperature 98.01 [degF] Jossy Queden 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 Work Phone: [facility] 11-17-2022 16:40-0400 Body weight 114.76 kg Jossy Queden 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 Work Phone: [facility] 11-17-2022 16:40-0400 Diastolic blood pressure 102 mm[Hg] Jossy Queden 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 Work Phone: [facility] 11-17-2022 16:40-0400 Heart rate 86 /min Jossy Queden 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 Work Phone: [facility] 11-17-2022 16:40-0400 Respiratory rate 20 /min Jossy Queden 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 Work Phone: [facility] 11-17-2022 16:40-0400 SaO2% (BldA) [Mass fraction] 98 % Jossy Queden 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 Work Phone: [facility] 11-17-2022 16:40-0400 Systolic blood pressure 194 mm[Hg] Jossy Queden 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 Work Phone: [facility] 11-04-2022 16:05-0400 Body height 177.8 cm Cinthia Avilez PA-C Work Phone: [facility] 11-04-2022 16:05-0400 Body temperature 98.1 [degF] Cinthia Avilez PA-C Work Phone: [facility] 11-04-2022 16:05-0400 Body weight 116.67 kg Cinthia Avilez PA-C Work Phone: [facility] 11-04-2022 16:05-0400 Diastolic blood pressure 104 mm[Hg] Cinthia Avilez PA-C Work Phone: [facility] 11-04-2022 16:05-0400 Heart rate 84 /min Cinthia Avilez PA-C Work Phone: [facility] 11-04-2022 16:05-0400 Respiratory rate 18 /min Cinthia Avilez PA-C Work Phone: [facility] 11-04-2022 16:05-0400 SaO2% (BldA) [Mass fraction] 98 % Cinthia Avilez PA-C Work Phone: [facility] 11-04-2022 16:05-0400 Systolic blood pressure 200 mm[Hg] Cinthia Avilez PA-C Work Phone: [facility] 10-24-2022 13:38-0400 Body height 177.8 cm Josys Queden 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 Work Phone: [facility] 10-24-2022 13:38-0400 Body temperature 98.4 [degF] Jossy Queden 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 Work Phone: [facility] 10-24-2022 13:38-0400 Body weight 113.4 kg Jossy Queden 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 Work Phone: [facility] 10-24-2022 13:38-0400 Diastolic blood pressure 74 mm[Hg] Jossy Queden 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 Work Phone: [facility] 10-24-2022 13:38-0400 Heart rate 87 /min Jossy Queden 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 Work Phone: [facility] 10-24-2022 13:38-0400 Respiratory rate 18 /min Jossy Queden 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 Work Phone: [facility] 10-24-2022 13:38-0400 SaO2% (BldA) [Mass fraction] 96 % Jossy Queden 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 Work Phone: [facility] 10-24-2022 13:38-0400 Systolic blood pressure 148 mm[Hg] Jossy Queden 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 Work Phone: [facility] 08-23-2022 10:51-0400 Diastolic blood pressure 102 mm[Hg] Jossy Queden 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 Work Phone: [facility] 08-23-2022 10:51-0400 Systolic blood pressure 182 mm[Hg] Jossy Queden 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 Work Phone: [facility] 08-23-2022 09:36-0400 Body height 177.8 cm Jossy Natarajan 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 Work Phone: [facility] 08-23-2022 09:36-0400 Body temperature 97.7 [degF] Jossy Natarajan 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 Work Phone: [facility] 08-23-2022 09:36-0400 Body weight 110.22 kg Jossy Quejose 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 Work Phone: [facility] 08-23-2022 09:36-0400 Heart rate 78 /min Jossy Daiden 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 Work Phone: [facility] 08-23-2022 09:36-0400 Respiratory rate 18 /min Jossy Natarajan 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 Work Phone: [facility] 08-23-2022 09:36-0400 SaO2% (BldA) [Mass fraction] 96 % Jossy Natarajan 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 Work Phone: [facility] 07-27-2022 08:46-0400 Body temperature 98.49 [degF] Cinthia Kirby 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 Work Phone: [facility] 07-27-2022 08:46-0400 Body weight 109.68 kg Cinthia Kirby APRN.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 Work Phone: [facility] 07-27-2022 08:46-0400 Diastolic blood pressure 98 mm[Hg] Cinthia Kirby APRN.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 Work Phone: [facility] 07-27-2022 08:46-0400 Heart rate 86 /min Cinthia Kirby 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 Work Phone: [facility] 07-27-2022 08:46-0400 Respiratory rate 20 /min Cinthia Kirby APRN.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 Work Phone: [facility] 07-27-2022 08:46-0400 SaO2% (BldA) [Mass fraction] 96 % Cinthia Kirby APRN.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 Work Phone: [facility] 07-27-2022 08:46-0400 Systolic blood pressure 158 mm[Hg] Cinthia Kirby 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 Work Phone: [facility] 12-16-2021 14:00-0400 Diastolic blood pressure 90 mm[Hg] Suad Pooleox PT Work Phone: [facility] 12-16-2021 14:00-0400 Systolic blood pressure 154 mm[Hg] Suad Pooleox PT Work Phone: [facility] 12-16-2021 13:31-0400 Respiratory rate 16 /min Suad Pooleox PT Work Phone: [facility] 12-11-2021 11:25-0400 Diastolic blood pressure 110 mm[Hg] Naty Molina REFINERY OPERATOR [employer] Work Phone: [facility] 12-11-2021 11:25-0400 Heart rate 70 /min Naty Molina REFINERY OPERATOR [employer] Work Phone: [facility] 12-11-2021 11:25-0400 SaO2% (BldA) [Mass fraction] 97 % Naty Molina REFINERY OPERATOR [employer] Work Phone: [facility] 12-11-2021 11:25-0400 Systolic blood pressure 182 mm[Hg] Naty Molina REFINERY OPERATOR [employer] Work Phone: [facility] 12-11-2021 10:48-0400 Body temperature 98.4 [degF] Naty Molina REFINERY OPERATOR [employer] Work Phone: [facility] 12-10-2021 15:37-0400 Diastolic blood pressure 100 mm[Hg] Jossy Queden 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 Work Phone: [facility] 12-10-2021 15:37-0400 Systolic blood pressure 172 mm[Hg] Jossy Queden 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 Work Phone: [facility] 12-10-2021 15:03-0400 Body height 177.8 cm Jossy Queden 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 Work Phone: [facility] 12-10-2021 15:03-0400 Body temperature 98.01 [degF] Jossy Queden 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 Work Phone: [facility] 12-10-2021 15:03-0400 Body weight 109.32 kg Jossy Queden 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 Work Phone: [facility] 12-10-2021 15:03-0400 Heart rate 76 /min Jossy Queden 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 Work Phone: [facility] 12-10-2021 15:03-0400 Respiratory rate 18 /min Jossy Queden 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 Work Phone: [facility] 12-10-2021 15:03-0400 SaO2% (BldA) [Mass fraction] 98 % Jossy Queden 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 Work Phone: [facility] 12-08-2021 10:49-0400 Diastolic blood pressure 98 mm[Hg] Rubi Steve REFINERY OPERATOR [employer] Work Phone: [facility] 12-08-2021 10:49-0400 Heart rate 82 /min Rubi Steve REFINERY OPERATOR [employer] Work Phone: [facility] 12-08-2021 10:49-0400 SaO2% (BldA) [Mass fraction] 98 % Rubi Steve REFINERY OPERATOR [employer] Work Phone: [facility] 12-08-2021 10:49-0400 Systolic blood pressure 178 mm[Hg] Rubi Steve REFINERY OPERATOR [employer] Work Phone: [facility] 12-08-2021 10:03-0400 Body temperature 97.81 [degF] Rubi Steve REFINERY OPERATOR [employer] Work Phone: [facility] 12-08-2021 10:03-0400 Respiratory rate 18 /min Rubi Steve REFINERY OPERATOR [employer] Work Phone: [facility] 12-06-2021 10:10-0400 Diastolic blood pressure 100 mm[Hg] Rosie Phillip PT Work Phone: [facility] 12-06-2021 10:10-0400 Heart rate 84 /min Rosie Phillip PT Work Phone: [facility] 12-06-2021 10:10-0400 SaO2% (BldA) [Mass fraction] 99 % Rosie Phillip PT Work Phone: [facility] 12-06-2021 10:10-0400 Systolic blood pressure 190 mm[Hg] Rosie Phillip PT Work Phone: [facility] 12-06-2021 09:10-0400 Body temperature 98.4 [degF] Rosie Phillip PT Work Phone: [facility] 12-06-2021 09:10-0400 Respiratory rate 18 /min Rosie Phillip PT Work Phone: [facility] 12-04-2021 15:14-0400 Diastolic blood pressure 88 mm[Hg] Yuly Mcknight PT Work Phone: [facility] 12-04-2021 15:14-0400 Heart rate 99 /min Yuly Mcknight PT Work Phone: [facility] 12-04-2021 15:14-0400 SaO2% (BldA) [Mass fraction] 97 % Yuly Mcknight PT Work Phone: [facility] 12-04-2021 15:14-0400 Systolic blood pressure 172 mm[Hg] Yuly Mcknight PT Work Phone: [facility] 12-04-2021 14:35-0400 Body temperature 98.91 [degF] Yuly Mcknight PT Work Phone: [facility] 11-29-2021 08:00-0400 Diastolic blood pressure 100 mm[Hg] Jaime Golias PT Work Phone: [facility] 11-29-2021 08:00-0400 Systolic blood pressure 164 mm[Hg] Jaime Golias PT Work Phone: [facility] 11-26-2021 15:00-0400 Diastolic blood pressure 94 mm[Hg] Jossy Natarajan APRN.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 Work Phone: [facility] 11-26-2021 15:00-0400 Systolic blood pressure 152 mm[Hg] Jossy Queden 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 Work Phone: [facility] 11-26-2021 14:22-0400 Body height 177.8 cm Jossy Queden 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 Work Phone: [facility] 11-26-2021 14:22-0400 Body temperature 97.81 [degF] Jossy Queden 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 Work Phone: [facility] 11-26-2021 14:22-0400 Body weight 111.13 kg Jossy Queden 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 Work Phone: [facility] 11-26-2021 14:22-0400 Heart rate 76 /min Jossy Queden 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 Work Phone: [facility] 11-26-2021 14:22-0400 Respiratory rate 16 /min Jossy Queden 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 Work Phone: [facility] 11-26-2021 14:22-0400 SaO2% (BldA) [Mass fraction] 96 % Jossy Queden 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 Work Phone: [facility] 11-15-2021 14:57-0400 Diastolic blood pressure 104 mm[Hg] Pacc 1 Work Phone: [facility] 11-15-2021 14:57-0400 Systolic blood pressure 176 mm[Hg] Pacc 1 Work Phone: [facility] 11-15-2021 14:17-0400 Body height 177.8 cm Pacc 1 Work Phone: [facility] 11-15-2021 14:17-0400 Body temperature 98.1 [degF] Pacc 1 Work Phone: [facility] 11-15-2021 14:17-0400 Body weight 111.13 kg Pacc 1 Work Phone: [facility] 11-15-2021 14:17-0400 Heart rate 76 /min Pacc 1 Work Phone: [facility] 11-15-2021 14:17-0400 Respiratory rate 18 /min Pacc 1 Work Phone: [facility] 11-15-2021 14:17-0400 SaO2% (BldA) [Mass fraction] 96 % Pacc 1 Work Phone: [facility] 08-13-2021 10:21-0400 Body temperature 97.59 [degF] Martha Praisler-Wood 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 Work Phone: [facility] 08-13-2021 10:21-0400 Body weight 107.5 kg Martha Praisler-Wood 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 Work Phone: [facility] 08-13-2021 10:21-0400 Diastolic blood pressure 88 mm[Hg] Martha Praisler-Wood 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 Work Phone: [facility] 08-13-2021 10:21-0400 Heart rate 84 /min Martha Praisler-Wood 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 Work Phone: [facility] 08-13-2021 10:21-0400 Respiratory rate 18 /min Martha Praisler-Wood 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 Work Phone: [facility] 08-13-2021 10:21-0400 SaO2% (BldA) [Mass fraction] 97 % Martha Praisler-Wood 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 Work Phone: [facility] 08-13-2021 10:21-0400 Systolic blood pressure 154 mm[Hg] Martha Praisler-Wood 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 Work Phone: [facility] Encounters Encounter Date Encounter Type Care Provider Facility Start: 03-09-2023 Telephone encounter Susanna schaefer 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 Work Phone: [facility] Procedures Date Procedure Procedure Detail Performing Clinician Start: 02-03-2023 Ecg routine ecg w/least 12 lds w/i&r Jeffrey Munguia MD Work Phone: Start: 12-26-2022 End: 12-26-2022 Radex spine lumbosacral 2/3 views Jossy Natarajan APRN.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 Work Phone: Start: 12-26-2022 Us retroperitoneal real time w/image complete Kt Mortensen MD Work Phone: Start: 11-11-2022 Us retroperitoneal real time w/image complete Cinthia Avilez PA-C Work Phone: Start: 08-01-2022 Radex hip unilateral with pelvis 2-3 views Monica Venegas PA-C Work Phone: Start: 12-29-2021 H/O: artificial joint Status post knee replacement, unspecified laterality Cindy O'Jose PT Start: 12-27-2021 Lipid 1996 panel - Serum or Plasma Jossy Natarajan APRN.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 Work Phone: Start: 11-15-2021 Ecg routine ecg w/least 12 lds w/i&r [facility] Provider Start: 11-14-2018 Colonoscopy Martha Benavides APRN.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 Work Phone: H/O: artificial joint Status pos t knee replacement, unspecified laterality Cindy O'Jose PT H/O: artificial joint Status pos t knee replacement, unspecified laterality Cindy O'Jose PT Plan of Treatment Date Care Activity Detail Author Start: 11-14-2028 Colonoscopy COLONOSCOPY [facility] Start: 11-14-2028 COLORECTAL CANCER SCREENING COLORECTAL CANCER SCREENING [facility] Start: 11-14-2028 Screening for malignant neoplasm of colon [facility] Start: 12-27-2026 Lipid 1996 panel - Serum or Plasma Lipid Screening [facility] Start: 12-27-2026 Lipid panel Lipid Screening [facility] Start: 12-27-2026 LIPID SCREEN LIPID SCREEN [facility] Start: 09-01-2025 DIABETES SCREEN DIABETES SCREEN [facility] Start: 09-01-2025 Diabetes Screening Diabetes Screening [facility] Start: 11-15-2024 DIABETES SCREEN DIABETES SCREEN [facility] Start: 01-21-2024 Annual PCP Team Chronic Disease Visit Annual PCP Team Chronic Disease Visit [facility] Start: 12-30-2023 Annual PCP Team Chronic Disease Visit Annual PCP Team Chronic Disease Visit [facility] Start: 12-16-2023 Annual PCP Team Chronic Disease Visit Annual PCP Team Chronic Disease Visit [facility] Start: 11-30-2023 Annual PCP Team Chronic Disease Visit Annual PCP Team Chronic Disease Visit [facility] Start: 11-18-2023 ANNUAL PCP TEAM CHRONIC DISEASE VISIT ANNUAL PCP TEAM CHRONIC DISEASE VISIT [facility] Start: 11-08-2023 ANNUAL PCP TEAM CHRONIC DISEASE VISIT ANNUAL PCP TEAM CHRONIC DISEASE VISIT [facility] Start: 10-25-2023 ANNUAL PCP TEAM CHRONIC DISEASE VISIT ANNUAL PCP TEAM CHRONIC DISEASE VISIT [facility] Start: 08-24-2023 ANNUAL PCP TEAM CHRONIC DISEASE VISIT ANNUAL PCP TEAM CHRONIC DISEASE VISIT [facility] Start: 02-10-2023 End: 11-11-2023 25-hydroxyvitamin D3 [Mass/volume] in Serum or Plasma VITAMIN D 25 HYDROXY Lab Routine Vitamin D deficiency Expected: 02/10/2023, Expires: 11/11/2023 [facility] Work Phone: Payers Date Payer Category Payer Private Health Insurance [facility] [employer] [id number] 2022-Present [phone] [address] [address] [place] [address] HMO [id number] 2022 Unknown [id number] 1970 Unknown [id number] Unknown [id number] Social History Date Type Detail Facility Start: 10-20-1988 End: 11-15-2021 Tobacco smoking status NHIS Smokes tobacco daily [facility] Start: 10-20-1988 History of tobacco use Cigarette Smo ker [facility] Work Phone: Start: 10-20-1988 History of tobacco use Cigar Smoker [facility] Work Phone: Start: 08-13-2021 End: 07-27-2022 Alcohol intake Current non-drinker of alcohol (finding) [facility] Start: 10-20-2016 End: 11-15-2021 Tobacco Comment 1 ppd since 2011 [facility] Start: 1970 Sex Assigned At Not on file [facility] Start: 08-03-2021 End: 02-21-2022 Exposure to SARS-CoV-2 (event) Not sure [facility] Start: 10-20-2016 End: 08-23-2022 Cigarettes smoked current (pack per day) - Reported 0.5 [facility] Work Phone: Start: 10-20-2016 End: 11-15-2021 Tobacco use and exposure Smokeless tobacco non-user [facility] Work Phone: Start: 09-01-2022 History SDOH Financial 5 [facility] Start: 09-01-2022 History SDOH Food Worry 1 [facility] Start: 09-01-2022 History SDOH Transpo rt Med 2 [facility] Start: 08-23-2022 End: 08-31-2022 Tobacco use panel [facility] Work Phone: How hard is it for y ou to pay for the very basics like food, housing, medical care, and heating Not hard at all [facility] Work Phone: (I/We) worried whedemar er (my/our) food would run out before (I/we) got money to buy more. Never true [facility] Work Phone: In the past 12 month s, was there a time when you were not able to pay the mortgage or rent on time? No [facility] Work Phone: Start: 11-04-2022 End: 02-03-2023 Alcohol intake Ex-drinker (finding) [facility] Medical Equipment Procedure Code Equipment Code Equipment Origin al Text Equipment Identifier Dates Component Tritan ium 35mm Metal 10mm Patellar Asymmetric Knee - [id number] Start: 12-01-2021 Clinical Notes 10-01-2015 to 03-09-2023 Telephone Encounter - Roxanne Osman - 03/09/2023 9:37 AM ESTPatient InstructionsHegde, Jeffrey A, MD - 02/03/2023 11:06 AM Kayla Barton MA - 02/03/2023 10:42 AM ESTPatient Instructions Note Date & Type Note Facility 03-09-2023 Miscellaneous Notes No Show Documentation Ruddy Ruvalcaba no showed for an appointment on 03/09/2023 with Susanna Flowers APRN.CNP at 9am. He was scheduled for new patient consult. I called the patient regarding his missed appointment. LVM for patient to return call. Ruddy stated the reason that he missed his appointment was because N/A - LVM for patient to return call. . Resources discussed/offered to patient: NA - LVM for patient to return call. No show determined to be fault of patient: N/A - LVM for patient to return call. This is the patients first no show in the last 12 months. Patient was rescheduled for LVM for patient to return call.. Letter mailed : Yes Is this the Third or Fourth No Show ? Milly Osman March 09, 2023 9:37 AM documented in this encounter [facility] 02-03-2023 Note HNO ID: [id number] Author: Jeffrey Munguia MD Service: ? Author Type: Physician Type: Progress Notes Filed: 02/03/2023 11:48 AM Note Text: PRIMARY CARE PHYSICIAN: Jossy Natarajan [address] [place] [address] REFERRING PHYSICIAN: SELF CHIEF COMPLAINT: Patient presents with: CARD New Patient Consult: Uncontrolled hypertension HPI: Mr Ruvalcaba was kindly referred to me by FABBY Encarnacion. From a cardiac standpoint, he has a history of hypertension, reflex sympathetic dystrophy in his left knee, and is SP right knee replacement in 12/09. He is a current smoker, and has smoked about 0.5 ppd X 30 years. 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 He was admitted to the ICU at [facility], and was on an iv antihypertensive regime. His echocardiogram during that hospital stay revealed a normal LVEF of 65%, stage 1 diastolic dysfunction, normal right ventricular size, systolic function. No significant valvular abnormalities were noted, and his ascending aorta was borderline dilated measuring 3.9 cmHis renal artery Dopplers in 12/10 indicated no evidence of hemodynamically significant renal artery stenosis ( 0-59% stenosis bilaterally). He was ordered a sleep apnea study, but apparently, his insurance denied the same Clinically, he denies chest pain, but does admit to exertional dyspnea. He denies palpitations, but does admit to some intermittent lightheadedness. He denies loss of consciousness. 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 S/P insertion of spinal cord stimulator 10/01/2015 Uncontrolled hypertension PAST SURGICAL HISTORY Procedure Laterality Date ARTHRS KNE SURG W/MENISCECTOMY MED/LAT W/SHVG Right 10/09/2015 Right knee arthroscopy medial meniscectomy ARTHRS KNE SURG W/MENISCECTOMY MED/LAT W/SHVG Right 10/26/2016 ARTHRS KNEE DRLG OSTEOCHOND DISSECANS INT FIXJ Right 10/09/2015 PF and medial distal femoral chondroplasties COLONOSCOPY FLX DX W/COLLJ SPEC WHEN PFRMD 11/14/2018 Colonoscopy CYSTO W LITHOTRIPSY 2013 renal calculi x 2 HERNIA REPAIR W/MESH 2000's PAST SURGICAL HISTORY OF nose-reconstruction PAST SURGICAL HISTORY OF Left 80's hand - plate and screws PAST SURGICAL HISTORY OF Left 80's humerous fx PAST SURGICAL HISTORY OF Right 90's Knee scope x's2 PAST SURGICAL HISTORY OF Left scope x's 2 knee PAST SURGICAL HISTORY OF Left acl repair 3x's TOTAL KNEE REPLACEMENT Right 12/01/2021 Right total robotic knee replacement SOCIAL HISTORY Social History Tobacco Use Smoking status: Every Day Packs/day: .5 Types: Cigars, Cigarettes Start date: 10/20/1988 Smokeless tobacco: Never Tobacco comments: 1 ppd since 2011 Vaping Use Vaping Use: Never used Substance Use Topics Alcohol use: Not Currently Drug use: Not Currently Types: Marijuana FAMILY HISTORY Problem Relation Age of Onset other (negative) Father ALLERGIES: ALLERGIES No Known Allergies MEDICATIONS: erythromycin (ROMYCIN) 5 mg/gram (0.5 %) ophthalmic ointment1 application daily at bedtime.Disp: Rfl: hydrALAZINE (APRESOLINE) 50 mg tabletTake 2 tablets by mouth three times a day.Disp: 270 tabletRfl: 0 lisinopril (ZESTRIL) 40 mg tabletTake 1 tablet by mouth twice daily.Disp: 180 tabletRfl: 1 labetalol (TRANDATE) 200 mg tabletTake 1.5 tablets by mouth twice daily.Disp: 270 tabletRfl: 1 finasteride (PROSCAR) 5 mg tabletTake 1 tablet by mouth once daily.Disp: 90 tabletRfl: 1 chlorthalidone (HYGROTON) 25 mg tabletTake 1 tablet by mouth once daily.Disp: 90 tabletRfl: 1 amLODIPine (NORVASC) 10 mg tabletTake 1 tablet by mouth once daily.Disp: 30 tabletRfl: 2 REVIEW OF SYSTEMS: GENERAL: Negative for:Weight loss and Weight gain HEENT: Negative for:Nosebleeds RESPIRATORY: Negative for:Shortness of breath GASTROINTESTINAL: Negative for:Blood in stool MUSCULOSKELETAL: Negtive for: Muscle or joint pain, stiffness, Joint swelling SKIN: No rash HEMATOLOGICAL/LYMPHATIC: Negative for: Easy bruising and Easy bleeding CARDIOVASCULAR: As stated in HPI. 10 system review negative except as stated in HPI I have confirmed and edited as necessary, the Past, Family, Social History and Review Of Systems, obtained by my office staff. PHYSICAL EXAMINATION: BP 202/122 Pulse 80 Ht 5' 10 (1.78m) Wt 263 lb 3.2 oz (119.4kg) SpO2 99% BMI 37.77 kg/(m2). General: Well appearing, in no acute distress, speaking in complete sentences., Well appearing. Psych: Normal Affect Eyes: No subconjunctival hemorrhage Skin: No rash, bruising Oropharynx: Mucous membranes normal Neck: no jugular venous distention, no carotid bruits. Lymph: No cervical lymp (more content not included)... [facility] 02-03-2023 Instructions Jeffrey Munguia MD - 02/03/2023 11:41 AM EST High Blood Pressure: Care Instructions Overview It's normal for blood pressure to go up and down throughout the day. But if it stays up, you have high blood pressure. Another name for high blood pressure is hypertension. Despite what a lot of people think, high blood pressure usually doesn't cause headaches or make you feel dizzy or lightheaded. It usually has no symptoms. But it does increase your risk of stroke, heart attack, and other problems. You and your doctor will talk about your risks of these problems based on your blood pressure. Your doctor will give you a goal for your blood pressure. Your goal will be based on your health and your age. Lifestyle changes, such as eating healthy and being active, are always important to help lower blood pressure. You might also take medicine to reach your blood pressure goal. Follow-up care is a castro part of your treatment and safety. Be sure to make and go to all appointments, and call your doctor if you are having problems. It's also a good idea to know your test results and keep a list of the medicines you take. How can you care for yourself at home? Medical treatment If you stop taking your medicine, your blood pressure will go back up. You may take one or more types of medicine to lower your blood pressure. Be safe with medicines. Take your medicine exactly as prescribed. Call your doctor if you think you are having a problem with your medicine. See your doctor regularly. You may need to see the doctor more often at first or until your blood pressure comes down. If you are taking blood pressure medicine, talk to your doctor before you take decongestants or anti-inflammatory medicine, such as ibuprofen. Some of these medicines can raise blood pressure. Learn how to check your blood pressure at home. Lifestyle changes Stay at a healthy weight. This is especially important if you put on weight around the waist. Losing even 10 pounds can help you lower your blood pressure. If your doctor recommends it, get more exercise. Walking is a good choice. Bit by bit, increase the amount you walk every day. Try for at least 30 minutes on most days of the week. You also may want to swim, bike, or do other activities. Avoid or limit alcohol. Talk to your doctor about whether you can drink any alcohol. Try to limit how much sodium you eat to less than 2,300 milligrams (mg) a day. Your doctor may ask you to try to eat less than 1,500 mg a day. Eat plenty of fruits (such as bananas and oranges), vegetables, legumes, whole grains, and low-fat dairy products. Lower the amount of saturated fat in your diet. Saturated fat is found in animal products such as milk, cheese, and meat. Limiting these foods may help you lose weight and also lower your risk for heart disease. Do not smoke. Smoking increases your risk for heart attack and stroke. If you need help quitting, talk to your doctor about stop-smoking programs and medicines. These can increase your chances of quitting for good. When should you call for help? Call 911 anytime you think you may need emergency care. This may mean having symptoms that suggest that your blood pressure is causing a serious heart or blood vessel problem. Your blood pressure may be over 180/120. For example, call 911 if: You have symptoms of a heart attack. These may include: ? Chest pain or pressure, or a strange feeling in the chest. ? Sweating. ? Shortness of breath. ? Nausea or vomiting. ? Pain, pressure, or a strange feeling in the back, neck, jaw, or upper belly or in one or both shoulders or arms. ? Lightheadedness or sudden weakness. ? A fast or irregular heartbeat. You have symptoms of a stroke. These may include: ? Sudden numbness, tingling, weakness, or loss of movement in your face, arm, or leg, especially on only one side of your body. ? Sudden vision changes. ? Sudden trouble speaking. ? Sudden confusion or trouble understanding simple statements. ? Sudden problems with walking or balance. ? A sudden, severe headache that is different from past headaches. You have severe back or belly pain. Do not wait until your blood pressure comes down on its own. Get help right away. Call your doctor now or seek immediate care if: Your blood pressure is much higher than normal (such as 180/120 or higher), but you don't have symptoms. You think high blood pressure is causing symptoms, such as: ? Severe headache. ? Blurry vision. Watch closely for changes in your health, and be sure to contact your doctor if: Your blood pressure measures higher than your doctor recommends at least 2 times. That means the top number is higher or the bottom number is higher, or both. You think you may be having side effects from your blood pressure medicine. Where can you learn more? Go to https://www.[employer].net/patient Ed. Enter X567 in the search box to learn more about High Blood Pressure: Care Instructions. Current as of: October 08, 2017 Content Version: [id number] [employer]. Care instructions adapted under license by your healthcare professional. If you have questions about a medical condition or this instruction, always ask your healthcare professional. [employer] disclaims any warranty or liability for your use of this information. documented in this encounter [facility] 02-03-2023 History of Present illness Narrative PRIMARY CARE PHYSICIAN: Jossy Natarajan [address] [place], [place] [id number] REFERRING PHYSICIAN: SELF CHIEF COMPLAINT: Patient presents with: CARD New Patient Consult: Uncontrolled hypertension HPI: Mr Ruvalcaba was kindly referred to me by FABBY Encarnacion. From a cardiac standpoint, he has a history of hypertension, reflex sympathetic dystrophy in his left knee, and is SP right knee replacement in 12/09. He is a current smoker, and has smoked about 0.5 ppd X 30 years. 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 He was admitted to the ICU at [facility], and was on an iv antihypertensive regime. His echocardiogram during that hospital stay revealed a normal LVEF of 65%, stage 1 diastolic dysfunction, normal right ventricular size, systolic function. No significant valvular abnormalities were noted, and his ascending aorta was borderline dilated measuring 3.9 cmHis renal artery Dopplers in 12/10 indicated no evidence of hemodynamically significant renal artery stenosis ( 0-59% stenosis bilaterally). He was ordered a sleep apnea study, but apparently, his insurance denied the same Clinically, he denies chest pain, but does admit to exertional dyspnea. He denies palpitations, but does admit to some intermittent lightheadedness. He denies loss of consciousness. 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 S/P insertion of spinal cord stimulator 10/01/2015 Uncontrolled hypertension PAST SURGICAL HISTORY Procedure Laterality Date ARTHRS KNE SURG W/MENISCECTOMY MED/LAT W/SHVG Right 10/09/2015 Right knee arthroscopy medial meniscectomy ARTHRS KNE SURG W/MENISCECTOMY MED/LAT W/SHVG Right 10/26/2016 ARTHRS KNEE DRLG OSTEOCHOND DISSECANS INT FIXJ Right 10/09/2015 PF and medial distal femoral chondroplasties COLONOSCOPY FLX DX W/COLLJ SPEC WHEN PFRMD 11/14/2018 Colonoscopy CYSTO W LITHOTRIPSY 2013 renal calculi x 2 HERNIA REPAIR W/MESH 2000's PAST SURGICAL HISTORY OF nose-reconstruction PAST SURGICAL HISTORY OF Left 80's hand - plate and screws PAST SURGICAL HISTORY OF Left 80's humerous fx PAST SURGICAL HISTORY OF Right 90's Knee scope x's2 PAST SURGICAL HISTORY OF Left scope x's 2 knee PAST SURGICAL HISTORY OF Left acl repair 3x's TOTAL KNEE REPLACEMENT Right 12/01/2021 Right total robotic knee replacement SOCIAL HISTORY Social History Tobacco Use Smoking status: Every Day Packs/day: .5 Types: Cigars, Cigarettes Start date: 10/20/1988 Smokeless tobacco: Never Tobacco comments: 1 ppd since 2011 Vaping Use Vaping Use: Never used Substance Use Topics Alcohol use: Not Currently Drug use: Not Currently Types: Marijuana FAMILY HISTORY Problem Relation Age of Onset other (negative) Father ALLERGIES: ALLERGIES No Known Allergies MEDICATIONS: erythromycin (ROMYCIN) 5 mg/gram (0.5 %) ophthalmic ointment^1 application daily at bedtime.^Disp: ^Rfl: hydrALAZINE (APRESOLINE) 50 mg tablet^Take 2 tablets by mouth three times a day.^Disp: 270 tablet^Rfl: 0 lisinopril (ZESTRIL) 40 mg tablet^Take 1 tablet by mouth twice daily.^Disp: 180 tablet^Rfl: 1 labetalol (TRANDATE) 200 mg tablet^Take 1.5 tablets by mouth twice daily.^Disp: 270 tablet^Rfl: 1 finasteride (PROSCAR) 5 mg tablet^Take 1 tablet by mouth once daily.^Disp: 90 tablet^Rfl: 1 chlorthalidone (HYGROTON) 25 mg tablet^Take 1 tablet by mouth once daily.^Disp: 90 tablet^Rfl: 1 amLODIPine (NORVASC) 10 mg tablet^Take 1 tablet by mouth once daily.^Disp: 30 tablet^Rfl: 2 REVIEW OF SYSTEMS: GENERAL: Negative for:Weight loss and Weight gain HEENT: Negative for:Nosebleeds RESPIRATORY: Negative for:Shortness of breath GASTROINTESTINAL: Negative for:Blood in stool MUSCULOSKELETAL: Negtive for: Muscle or joint pain, stiffness, Joint swelling SKIN: No rash HEMATOLOGICAL/LYMPHATIC: Negative for: Easy bruising and Easy bleeding CARDIOVASCULAR: As stated in HPI. 10 system review negative except as stated in HPI I have confirmed and edited as necessary, the Past, Family, Social History and Review Of Systems, obtained by my office staff. PHYSICAL EXAMINATION: BP 202/122 Pulse 80 Ht 5' 10 (1.78m) Wt 263 lb 3.2 oz (119.4kg) SpO2 99% BMI 37.77 kg/(m^2). General: Well appearing, in no acute distress, speaking in complete sentences., Well appearing. Psych: Normal Affect Eyes: No subconjunctival hemorrhage Skin: No rash, bruising Oropharynx: Mucous membranes normal Neck: no jugular venous distention, no carotid bruits. Lymph: No cervical lymphadenopathy Lungs: Clear to auscultation bilaterally, no wheezing or rhonchi. Heart: S1, S2 normal, no murmur Extremities: No peripheral edema Neuro: Grossly nonfocal ASSESSMENT/PLAN: 1. Hypertension, unspecified type - ICD9: 401.9, ICD10: I10 (primary diagnosis) - Uncontrolled, but he does have several triggers including smoking, diet rich in deli meat, untreated reflex sympathetic dystrophy, possible sleep apnea, and obesity. I do not think he has secondary hypertension, but I will order a workup for pheochromocytoma, hyperaldosteronism. - Recommend home blood pressure monitoring, to bring results to next visit - Encouraged sodium restriction, DASH or Mediterranean diet - Recommend regular aerobic exercise - Increase Labetalol to 300 mg TID, and Chlorthalidone to 50 mg daily. Continue Hydralazine, Amlodipine, Lisinopril. - ECG B/O W INTERP (MED OFFICE) 2. Mixed hyperlipidemia - ICD9: 272.2, ICD10: E78.2 Diet controlled at present. - Counseled on healthy diet and regular exercise 3. Obesity, Class I, BMI 30-34.9 - ICD9: 278.00, ICD10: E66.9 I strongly encouraged him to work on weight loss, using either weight watchers, or consider pharmacotherapy with Ozempic. 4. Nicotine use disorder, F17.2 - ICD9: 305.1, ICD10: F17.200 - Cessation encouraged. - Physiologic and physical aspects of tobacco addiction as well as strategies for quitting were discussed. - Counseling was given focusing on the harmful effects of this addiction especially given the patient's medical condition(s) which will be worsened because of the chemicals in tobacco. 5. Dyspnea on exertion -ICD-10: R06.0 ? Anginal equivalent versus secondary to uncontrolled hypertension. Proceed with a Lexiscan nuclear stress test 6. RSD (reflex sympathetic dystrophy) - ICD9: 337.20, ICD10: G90.50 He apparently has an appointment with pain medicine. I strongly encouraged him to have this scheduled, as this could be contributing to his elevated blood pressures. Jeffrey Munguia MD The above note was partially created using a dictation recognition software. A reasonable attempt has been made to correct any errors. documented in this encounter [facility] 02-03-2023 Nurse Note Patient denies cardiac complaints or symptoms. documented in this encounter [facility] 01-26-2023 Miscellaneous Notes Patient is informed Esme Cox MA patient electronically requesting refills as follows: Last seen 01/20/23 . Last refill 01/20/23 . Requested Prescriptions Pending Prescriptions Disp Refills HYDROcodone-acetaminophen (NORCO) 5-325 mg per tablet 21 tablet 0 Sig: Take 1 tablet by mouth every 8 hours as needed for pain for up to 7 days. Please review and advise. Carlene Hussein MA documented in this encounter [facility] 01-20-2023 Note HNO ID: [id number] Author: Jossy Natarajan APRN.AINSLEY Service: ? Author Type: Nurse Practitioner Type: Progress Notes Filed: 01/22/2023 9:44 AM Note Text: CHIEF COMPLAINT: Ruddy Ruvalcaba is a 52 year old male who presents for 4 week f/u HTN. I reviewed past medical, surgical, social, and family histories today and updated chart. Allergies, chronic medications, and supplements were also reviewed. He has been taking his BP medications as prescribed. Home BP's have been running around SBP 170's/90's but will still have occasional higher readings. He continues to have headaches, sometimes upon wakening. Was recently prescribed Toradol but it did not help with his headaches. He states the only thing that takes the edge off is Percocet. This also helps with his lower back pain. He has been using these sparingly. He did have a lumbar XR that showed degenerative changes. He has an appointment with cardiology in 2 weeks. He continues to smoke despite knowing this could be contributing to his HTN. He has also been seen by Nephrology who has adjusted his medications. He has had an US of his kidneys and renal arteries that did not show any renal artery stenosis. An MRI kidneys and adrenal was ordered but he has a lumbar simulator that is not MRI compliant. He has an appointment with pain management to discuss possible removal. He is getting very frustrated with not getting any answers of why his BP remains elevated. A PSG was recommended by numerous providers and was ordered but was denied by insurance. An appeal was submitted. STOP BANG Questionnaire 1. Snoring Do you snore loudly (louder than talking or loud enough to be heard through closed doors)? YES 2. Tired Do you often feel tired, fatigued, or sleepy during daytime? YES 3. Observed Has anyone observed you stop breathing during your sleep? YES 4. Blood Pressure Do you have or are you being treated for high blood pressure? YES 5. BMI BMI more than 35 kg/m2? YES 6. Age Age over 50 yr old? YES 7. Neck circumference Neck circumference greater than 40 cm? YES 8. Gender Gender male? YES * Neck circumference is measured by staff High risk of LAURYN: answering yes to three or more items Low risk of LAURYN: answering yes to less than three items The history is provided by the patient. No procurement buyer was used. 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 S/P insertion of spinal cord stimulator 10/01/2015 Uncontrolled hypertension PAST SURGICAL HISTORY Procedure Laterality Date ARTHRS KNE SURG W/MENISCECTOMY MED/LAT W/SHVG Right 10/09/2015 Right knee arthroscopy medial meniscectomy ARTHRS KNE SURG W/MENISCECTOMY MED/LAT W/SHVG Right 10/26/2016 ARTHRS KNEE DRLG OSTEOCHOND DISSECANS INT FIXJ Right 10/09/2015 PF and medial distal femoral chondroplasties COLONOSCOPY FLX DX W/COLLJ SPEC WHEN PFRMD 11/14/2018 Colonoscopy CYSTO W LITHOTRIPSY 2013 renal calculi x 2 HERNIA REPAIR W/MESH 2000's PAST SURGICAL HISTORY OF nose-reconstruction PAST SURGICAL HISTORY OF Left 80's hand - plate and screws PAST SURGICAL HISTORY OF Left 80's humerous fx PAST SURGICAL HISTORY OF Right 90's Knee scope x's2 PAST SURGICAL HISTORY OF Left scope x's 2 knee PAST SURGICAL HISTORY OF Left acl repair 3x's TOTAL KNEE REPLACEMENT Right 12/01/2021 Right total robotic knee replacement Social History Tobacco Use Smoking status: Every Day Packs/day: .5 Types: Cigars, Cigarettes Start date: 10/20/1988 Smokeless tobacco: Never Tobacco comments: 1 ppd since 2011 Vaping Use Vaping Use: Never used Substance Use Topics Alcohol use: Not Currently Drug use: Not Currently Types: Marijuana ALLERGIES No Known Allergies Family History Problem Relation Age of Onset other (negative) Father Current Outpatient Medications Medication Sig Dispense Refill erythromycin (ROMYCIN) 5 mg/gram (0.5 %) ophthalmic ointment 1 application daily at bedtime. keTORolac (TORADOL) 10 mg tablet Take 1 tablet by mouth every 6 hours as needed for pain for up to 5 days. 20 tablet 0 hydrALAZINE (APRESOLINE) 50 mg tablet Take 2 tablets by mouth three times a day. 270 tablet 0 lisinopril (ZESTRIL) 40 mg tablet Take 1 tablet by mouth twice daily. 180 tablet 1 labetalol (TRANDATE) 200 mg tablet Take 1.5 tablets by mouth twice daily. 270 tablet 1 finasteride (PROSCAR) 5 mg tablet Take 1 tablet by mouth once daily. 90 tablet 1 chlorthalidone (HYGROTON) 25 mg tablet Take 1 tablet by mouth once daily. 90 tablet 1 amLODIPine (NORVASC) 10 mg tablet Take 1 tablet by mouth once daily. 30 tablet 2 Current Facility-Administered Medications Medication Dose Route Frequency Provider Last Rate Last Admin perflutren lipid microspheres 1.3 mL in NaCl (P (more content not included)... [facility] 01-20-2023 History of Present illness Narrative Images from the original note were not included. CHIEF COMPLAINT: Ruddy Ruvalcaba is a 52 year old male who presents for 4 week f/u HTN. I reviewed past medical, surgical, social, and family histories today and updated chart. Allergies, chronic medications, and supplements were also reviewed. He has been taking his BP medications as prescribed. Home BP's have been running around SBP 170's/90's but will still have occasional higher readings. He continues to have headaches, sometimes upon wakening. Was recently prescribed Toradol but it did not help with his headaches. He states the only thing that takes the edge off is Percocet. This also helps with his lower back pain. He has been using these sparingly. He did have a lumbar XR that showed degenerative changes. He has an appointment with cardiology in 2 weeks. He continues to smoke despite knowing this could be contributing to his HTN. He has also been seen by Nephrology who has adjusted his medications. He has had an US of his kidneys and renal arteries that did not show any renal artery stenosis. An MRI kidneys and adrenal was ordered but he has a lumbar simulator that is not MRI compliant. He has an appointment with pain management to discuss possible removal. He is getting very frustrated with not getting any answers of why his BP remains elevated. A PSG was recommended by numerous providers and was ordered but was denied by insurance. An appeal was submitted. STOP BANG Questionnaire 1. Snoring Do you snore loudly (louder than talking or loud enough to be heard through closed doors)? YES 2. Tired Do you often feel tired, fatigued, or sleepy during daytime? YES 3. Observed Has anyone observed you stop breathing during your sleep? YES 4. Blood Pressure Do you have or are you being treated for high blood pressure? YES 5. BMI BMI more than 35 kg/m2? YES 6. Age Age over 50 yr old? YES 7. Neck circumference Neck circumference greater than 40 cm? YES 8. Gender Gender male? YES * Neck circumference is measured by staff High risk of LAURYN: answering yes to three or more items Low risk of LAURYN: answering yes to less than three items The history is provided by the patient. No procurement buyer was used. 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 S/P insertion of spinal cord stimulator 10/01/2015 Uncontrolled hypertension PAST SURGICAL HISTORY Procedure Laterality Date ARTHRS KNE SURG W/MENISCECTOMY MED/LAT W/SHVG Right 10/09/2015 Right knee arthroscopy medial meniscectomy ARTHRS KNE SURG W/MENISCECTOMY MED/LAT W/SHVG Right 10/26/2016 ARTHRS KNEE DRLG OSTEOCHOND DISSECANS INT FIXJ Right 10/09/2015 PF and medial distal femoral chondroplasties COLONOSCOPY FLX DX W/COLLJ SPEC WHEN PFRMD 11/14/2018 Colonoscopy CYSTO W LITHOTRIPSY 2013 renal calculi x 2 HERNIA REPAIR W/MESH 2000's PAST SURGICAL HISTORY OF nose-reconstruction PAST SURGICAL HISTORY OF Left 80's hand - plate and screws PAST SURGICAL HISTORY OF Left 80's humerous fx PAST SURGICAL HISTORY OF Right 90's Knee scope x's2 PAST SURGICAL HISTORY OF Left scope x's 2 knee PAST SURGICAL HISTORY OF Left acl repair 3x's TOTAL KNEE REPLACEMENT Right 12/01/2021 Right total robotic knee replacement Social History Tobacco Use Smoking status: Every Day Packs/day: .5 Types: Cigars, Cigarettes Start date: 10/20/1988 Smokeless tobacco: Never Tobacco comments: 1 ppd since 2012 Vaping Use Vaping Use: Never used Substance Use Topics Alcohol use: Not Currently Drug use: Not Currently Types: Marijuana ALLERGIES No Known Allergies Family History Problem Relation Age of Onset other (negative) Father Current Outpatient Medications Medication Sig Dispense Refill erythromycin (ROMYCIN) 5 mg/gram (0.5 %) ophthalmic ointment 1 application daily at bedtime. keTORolac (TORADOL) 10 mg tablet Take 1 tablet by mouth every 6 hours as needed for pain for up to 5 days. 20 tablet 0 hydrALAZINE (APRESOLINE) 50 mg tablet Take 2 tablets by mouth three times a day. 270 tablet 0 lisinopril (ZESTRIL) 40 mg tablet Take 1 tablet by mouth twice daily. 180 tablet 1 labetalol (TRANDATE) 200 mg tablet Take 1.5 tablets by mouth twice daily. 270 tablet 1 finasteride (PROSCAR) 5 mg tablet Take 1 tablet by mouth once daily. 90 tablet 1 chlorthalidone (HYGROTON) 25 mg tablet Take 1 tablet by mouth once daily. 90 tablet 1 amLODIPine (NORVASC) 10 mg tablet Take 1 tablet by mouth once daily. 30 tablet 2 Current Facility-Administered Medications Medication Dose Route Frequency Provider Last Rate Last Admin perflutren lipid microspheres 1.3 mL in NaCl (PF) 0.9% 10 mL injection (DEFINITY) INTRAVENOUS DIRECTED PRN Jossy Natarajan, 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 sodium chloride 0.9 % (flush) 10 mL (BD POSIFLUSH) 10 mL INTRAVENOUS DIRECTED PRN Jossy Natarajan 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 Review of Systems Constitutional: Negative for appetite change, chills, diaphoresis, fatigue, fever and unexpected weight change. Eyes: Positive for visual disturbance (right eye). Negative for photophobia. Respiratory: Negative for cough, chest tightness, shortness of breath and wheezing. Cardiovascular: Negative for chest pain, palpitations and leg swelling. Gastrointestinal: Negative. Genitourinary: Positive for flank pain (left lower back). Negative for dysuria, frequency, hematuria and urgency. Musculoskeletal: Positive for back pain. Negative for arthralgias, gait problem, neck pain and neck stiffness. Skin: Negative. Neurological: Positive for dizziness, light-headedness and headaches. Negative for seizures, syncope and numbness. Hematological: Negative. Psychiatric/Behavioral: Positive for sleep disturbance. The patient is nervous/anxious. BP 188/100 Pulse 81 Temp 98.3 Resp 18 Ht 5' 10 (1.78m) Wt 261 lb (118.4kg) SpO2 98% BMI 37.45 kg/(m^2). 01/20/23 1555 01/20/23 1644 BP: 188/100 168/108 Pulse: 81 Resp: 18 Temp: 36.8 C (98.3 F) SpO2: 98% Weight: 118.4 kg (261 lb) Height: 177.8 cm (5' 10 ) Physical Exam Vitals and nursing note reviewed. Constitutional: General: He is not in acute distress. Appearance: Normal appearance. He is obese. HENT: Mouth/Throat: Mouth: Mucous membranes are moist. Eyes: Pupils: Pupils are equal, round, and reactive to light. Neck: Vascular: No carotid bruit or JVD. Comments: Neck circumference > 17 inches Cardiovascular: Rate and Rhythm: Normal rate and regular rhythm. Heart sounds: Normal heart sounds, S1 normal and S2 normal. Pulmonary: Effort: Pulmonary effort is normal. Breath sounds: Normal breath sounds and air entry. Abdominal: General: Bowel sounds are normal. There is no distension. Palpations: Abdomen is soft. Tenderness: There is no abdominal tenderness. Musculoskeletal: Cervical back: Neck supple. Lumbar back: Tenderness present. No swelling, edema, deformity or bony tenderness. Normal range of motion. Negative right straight leg raise test and negative left straight leg raise test. Back: Right lower leg: No edema. Left lower leg: No edema. Skin: General: Skin is warm and dry. Findings: No rash. Neurological: Mental Status: He is alert and oriented to person, place, and time. Psychiatric: Mood and Affect: Mood is anxious. Behavior: Behavior normal. Cognition and Memory: Cognition normal. No visits with results within 1 Day(s) from this visit. Latest known visit with results is: Appointment on 12/12/2022 Component Date Value Ref Range Status Creatinine, Ur Random (UCRR) 12/13/2022 185.2 20.0 - 300.0 mg/dL Final Albumin, Urine Random 12/13/2022 43.0 mg/L Final Albumin/Creat Ratio 12/13/2022 23 <30 mg/g Final Adult Male and Female Nephrotic Criteria: <30 mg/g is considered normal to mildly increased 30-300 mg/g is considered moderately increased >300 mg/g is considered severely increased KDIGO. (2013). KDIGO 2012 Clinical Practice Guideline for the Evaluation and Management of Chronic Kidney Disease. Official Journal of the International Society of Nephrology, 3(1), 1-150. WBC 12/12/2022 10.33 3.70 - 11.00 k/uL Final RBC 12/12/2022 4.56 4.20 - 6.00 m/uL Final Hemoglobin 12/12/2022 13.8 13.0 - 17.0 g/dL Final Hematocrit 12/12/2022 39.5 39.0 - 51.0 % Final MCV 12/12/2022 86.6 80.0 - 100.0 fL Final MCH 12/12/2022 30.3 26.0 - 34.0 pg Final MCHC 12/12/2022 34.9 30.5 - 36.0 g/dL Final RDW-CV 12/12/2022 13.0 11.5 - 15.0 % Final Platelet Count 12/12/2022 286 150 - 400 k/uL Final MPV 12/12/2022 10.1 9.0 - 12.7 fL Final Neutrophils % 12/12/2022 62.2 % Final Abs Neut 12/12/2022 6.43 1.45 - 7.50 k/uL Final Lymphocytes % 12/12/2022 22.7 % Final Abs Lymph 12/12/2022 2.35 1.00 - 4.00 k/uL Final Monocytes % 12/12/2022 9.7 % Final Abs Kings 12/12/2022 1.00 (H) <0.87 k/uL Final Eosinophils % 12/12/2022 3.9 % Final Abs Eosin 12/12/2022 0.40 <0.46 k/uL Final Basophils % 12/12/2022 1.0 % Final Abs Baso 12/12/2022 0.10 <0.11 k/uL Final Immature Granulocytes % 12/12/2022 0.5 % Final Abs Immature Gran 12/12/2022 0.05 <0.10 k/uL Final NRBC 12/12/2022 0.0 /100 WBC Final Absolute nRBC 12/12/2022 <0.01 <0.01 k/uL Final Diff Type 12/12/2022 Auto Final Magnesium 12/12/2022 2.0 1.7 - 2.3 mg/dL Final PTH, Intact 12/12/2022 34 15 - 65 pg/mL Final Albumin 12/12/2022 4.4 3.9 - 4.9 g/dL Final Calcium, Total 12/12/2022 9.3 8.5 - 10.2 mg/dL Final Phosphorus 12/12/2022 3.7 2.7 - 4.8 mg/dL Final Glucose 12/12/2022 89 74 - 99 mg/dL Final The [place] [employer] (ADA) provides guidance for cutoff values for fasting glucose and random glucose. The ADA defines fasting as no caloric intake for at least 8 hours. Fasting plasma glucose results between 100 to 125 mg/dL indicate increased risk for diabetes (prediabetes). Fasting plasma glucose results greater than or equal to 126 mg/dL meet the criteria for diagnosis of diabetes. In the absence of unequivocal hyperglycemia, results should be confirmed by repeat testing. In a patient with classic symptoms of hyperglycemia or hyperglycemic crisis, random plasma glucose results greater than or equal to 200 mg/dL meet the criteria for diagnosis of diabetes. Reference: Standards of Medical Care in Diabetes 2016, [place] [employer]. Diabetes Care. 2016.39(Suppl 1). BUN 12/12/2022 23 9 - 24 mg/dL Final Creatinine 12/12/2022 1.04 0.73 - 1.22 mg/dL Final Sodium 12/12/2022 138 136 - 144 mmol/L Final Potassium 12/12/2022 3.9 3.7 - 5.1 mmol/L Final Chloride 12/12/2022 104 97 - 105 mmol/L Final CO2 12/12/2022 24 22 - 30 mmol/L Final Anion Gap 12/12/2022 10 9 - 18 mmol/L Final Estimated Glomerular Filtration Ra* 12/12/2022 85 >=60 mL/min/1.73m Final Estimated Glomerular Filtration Rate (eGFR) is calculated using the 2020 CKD-EPI creatinine equation. This equation utilizes serum creatinine, sex, and age as parameters. The creatinine assay has traceable calibration to isotope dilution-mass spectrometry. Refer to KDIGO guidelines for clinical interpretation. In patients with unstable renal function, e.g. those with acute kidney injury, the eGFR may not accurately reflect actual GFR. Uric Acid 12/12/2022 6.3 4.0 - 8.1 mg/dL Final Color 12/13/2022 Light Yellow Yellow Final Clarity 12/13/2022 Clear Clear Final Glucose, Urine 12/13/2022 Negative Trace, Negative Final Bilirubin, Urine 12/13/2022 Negative Negative Final Ketones, Urine 12/13/2022 Negative Trace, Negative Final Specific [place], Ur 12/13/2022 1.032 (H) 1.005 - 1.030 Final Hemoglobin/Blood,Ur 12/13/2022 Negative Negative, Trace Final pH, Urine 12/13/2022 5.5 5.0 - 8.0 Final Protein, Urine 12/13/2022 Trace Trace, Negative Final Urobilinogen 12/13/2022 Negative Negative Final Nitrites 12/13/2022 Negative Negative Final Leuk Esterase 12/13/2022 Negative Negative, 25 [place]/uL Final WBC, Urine 12/13/2022 0-5 /HPF 0-5 /HPF Final RBC, Urine 12/13/2022 0-3 /HPF 0-3 /HPF Final Squamous Epithelial Cells 12/13/2022 Few /HPF Final Casts, Hyaline 12/13/2022 1-3 /LPF (A) 0 /LPF Final Calcium Oxalate Crystals 12/13/2022 Few (A) None Seen /HPF Final Vitamin D 25 Hydroxy 12/12/2022 30.6 (L) 31.0 - 80.0 ng/mL Final Classification of 25 OH Vitamin D status: Deficiency/Insufficiency: < or = 30 ng/ml. Sufficiency/Optimal Levels: 31-80 ng/mL Toxicity: > 100 ng/mL. Test performed by chemiluminescent immunoassay. ASSESSMENT/PLAN: 1. Uncontrolled hypertension - ICD9: 401.9, ICD10: I10 (primary diagnosis) - Uncontrolled - Factors affecting control: suspected sleep apnea, diet adherence, and lack of exercise - Continue current medications - Recommend home blood pressure monitoring, to bring results to next visit - Encouraged sodium restriction, DASH or Mediterranean diet - Recommend regular aerobic exercise - Discussed need for and benefit of weight loss. BMI 37.45 kg/(m^2) - Smoking cessation encouraged; discussed risks to health and quitting strategies. Patient is not ready to quit - Reviewed risks of hypertension and principles of treatment - Follow up in 3 months or sooner if needed for hypertension visit - POLYSOMNOGRAM (PSG) 2. At risk for sleep apnea - ICD9: V49.89, ICD10: Z91.89 - Patient needs an in house PSG to evaluate for LAURYN that could be contributing to his uncontrolled HTN. This has been recommended by his home care aide as well as the consulting drain technician while his was admitted for his HTN in August. - POLYSOMNOGRAM (PSG) 3. Intractable headache, unspecified chronicity pattern, unspecified headache type - ICD9: 784.0, ICD10: R51.9 - Explained to the patient that this will be the last refill of the pain medication. His headaches are most likely stemming from his uncontrolled hypertension but if they continue despite BP control, recommend CT brain. - HYDROCODONE 5 MG-ACETAMINOPHEN 325 MG TABLET 4. Left flank pain - ICD9: 789.09, ICD10: R10.9 - DDD lumbar spine - US kidney and renal artery showed no stenosis or renal calculi - HYDROCODONE 5 MG-ACETAMINOPHEN 325 MG TABLET 5. DDD (degenerative disc disease), lumbar - ICD9: 722.52, ICD10: M51.36 Chronic low back pain - He believes his pain is stemming from the spinal cord stimulator that has been present for close to 20 years. 6. Battery end of life of spinal cord stimulator - ICD9: V53.02, ICD10: Z45.42 - Will be seeing pain management at the end of the month. He wants the stimulator removed. 7. Nicotine use disorder, F17.2 - ICD9: 305.1, ICD10: F17.200 - Cessation encouraged. - Physiologic and physical aspects of tobacco addiction as well as strategies for quitting were discussed. - Counseling was given focusing on the harmful effects of this addiction especially given the patient's medical condition(s) which will be worsened because of the chemicals in tobacco. - Counseling was given 3-4 minutes. - Recommended to called 1-800-QUIT NOW 8. Headache upon awakening - ICD9: 784.0, ICD10: R51.9 - POLYSOMNOGRAM (PSG) PDMP website checked and validated. All prescriptions have been APPROPRIATELY filled. No suspicious activity was identified. 01/20/2023 by Jossy Natarajan APRN.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 Some elements of above documentation were copied from my progress note of 12/29/22 and have been reexamined and updated where appropriate. All elements reflect the current assessment and medical decision making today. New medication(s) prescribed today: None. Counseling completed in adopting health behaviors such as avoiding excessive alcohol use, avoid tobacco use, improve nutrition, and engage in physical activities. Copy of written care plan, clinical summary, treatment plan, new medications, goals, and self management requirements were given to patient. Jossy Natarajan APRN.CNP documented in this encounter [facility] 01-05-2023 Miscellaneous Notes LVM for patient to schedule New patient appt for Thoracic and Lumbar DDD, chronic left flank pain. Ref'd by Jossy Natarajan. Cindy Christianson documented in this encounter [facility] 12-29-2022 Note HNO ID: [id number] Author: Jossy Natarajan APRN.CNP Service: ? Author Type: Nurse Practitioner Type: Progress Notes Filed: 01/21/2023 10:40 AM Note Text: CHIEF COMPLAINT: Ruddy Ruvalcaba is a 52 year old male who presents for an ER follow up for uncontrolled HTN. I reviewed past medical, surgical, social, and family histories today and updated chart. Allergies, chronic medications, and supplements were also reviewed. Ointment- Erythromycin Warm compresses Copied from [place] ER visit: However, patient was found to have severe hypertension with reported 10 out of 10 headache. Initial blood pressure noted to be 241/109. Patient reported a history of progressive hypertension that had worsened over the last few months. Had headaches that correlated with hypertension, and he noted this headache seemed similar to previous. Noted that his headaches improved with opiates. Was given doses of IV labetalol 10 mg and IV hydralazine 10 mg, as well as dosesof IV morphine 4 mg, IV Dilaudid 1 mg and IV Zofran 4 mg. Unfortunately patientdid not have much improvement of blood pressure or headache with these medications. Slit-lamp exam: I placed tetracaine and fluorescein, there is no dye uptake, anterior chambers are deep and quiet. Patient's vision is normal when I lift his eyelid, this makes me think that he had a little bit of blurred vision but only because of the eyelid swelling. Patient does have hypertension he was hypertensive in the ED and also had a headache. These were treated. Give the patient labetalol and hydralazine I also treated his headache with opiate analgesics, headache only slightly improved, he has significant hypertension still, and its again increasing. I will admit him for observation. 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 S/P insertion of spinal cord stimulator 10/01/2015 Uncontrolled hypertension PAST SURGICAL HISTORY Procedure Laterality Date ARTHRS KNE SURG W/MENISCECTOMY MED/LAT W/SHVG Right 10/09/2015 Right knee arthroscopy medial meniscectomy ARTHRS KNE SURG W/MENISCECTOMY MED/LAT W/SHVG Right 10/26/2016 ARTHRS KNEE DRLG OSTEOCHOND DISSECANS INT FIXJ Right 10/09/2015 PF and medial distal femoral chondroplasties COLONOSCOPY FLX DX W/COLLJ SPEC WHEN PFRMD 11/14/2018 Colonoscopy CYSTO W LITHOTRIPSY 2013 renal calculi x 2 HERNIA REPAIR W/MESH 2000's PAST SURGICAL HISTORY OF nose-reconstruction PAST SURGICAL HISTORY OF Left 80's hand - plate and screws PAST SURGICAL HISTORY OF Left 80's humerous fx PAST SURGICAL HISTORY OF Right 90's Knee scope x's2 PAST SURGICAL HISTORY OF Left scope x's 2 knee PAST SURGICAL HISTORY OF Left acl repair 3x's TOTAL KNEE REPLACEMENT Right 12/01/2021 Right total robotic knee replacement Social History Tobacco Use Smoking status: Every Day Packs/day: .5 Types: Cigars, Cigarettes Start date: 10/20/1988 Smokeless tobacco: Never Tobacco comments: 1 ppd since 2011 Vaping Use Vaping Use: Never used Substance Use Topics Alcohol use: Not Currently Drug use: Not Currently Types: Marijuana ALLERGIES No Known Allergies Family History Problem Relation Age of Onset other (negative) Father Current Outpatient Medications Medication Sig Dispense Refill amLODIPine (NORVASC) 10 mg tablet Take 1 tablet by mouth once daily. 30 tablet 2 chlorthalidone (HYGROTON) 25 mg tablet Take 1 tablet by mouth once daily. 90 tablet 1 finasteride (PROSCAR) 5 mg tablet Take 1 tablet by mouth once daily. 90 tablet 1 hydrALAZINE (APRESOLINE) 50 mg tablet Take 1 tablet by mouth three times daily. 270 tablet 1 labetalol (TRANDATE) 200 mg tablet Take 1.5 tablets by mouth twice daily. 270 tablet 1 lisinopril (ZESTRIL) 40 mg tablet Take 1 tablet by mouth twice daily. 180 tablet 1 tamsulosin (FLOMAX) 0.4 mg Take 1 capsule by mouth daily at bedtime. (Patient not taking: Reported on 12/29/2022) 30 capsule 3 Current Facility-Administered Medications Medication Dose Route Frequency Provider Last Rate Last Admin perflutren lipid microspheres 1.3 mL in NaCl (PF) 0.9% 10 mL injection (DEFINITY) INTRAVENOUS DIRECTED PRN Jossy Natarajan, FRANKY sodium chloride 0.9 % (flush) 10 mL (BD POSIFLUSH) 10 mL INTRAVENOUS DIRECTED PRN Jossy Natarajan, 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 Review of Systems Constitutional: Negative for appetite change, chills, diaphoresis, fatigue, fever and unexpected weight change. Eyes: Positive for visual disturbance. Negative for photophobia. Respiratory: Negative for cough, chest tightness, shortness of breath and wheezing. Cardiovascular: Negative for chest pain, palpitations and leg swelling. Gastrointestinal: Negative. Genitourinary: Positive for flank pain (left lower back). Negative for dysuria, frequency, hem (more content not included)... [facility] 12-29-2022 History of Present illness Narrative Images from the original note were not included. CHIEF COMPLAINT: Ruddy Ruvalcaba is a 52 year old male who presents for an ER follow up for uncontrolled HTN. I reviewed past medical, surgical, social, and family histories today and updated chart. Allergies, chronic medications, and supplements were also reviewed. Ointment- Erythromycin Warm compresses Copied from [place] ER visit: However, patient was found to have severe hypertension with reported 10 out of 10 headache. Initial blood pressure noted to be 241/109. Patient reported a history of progressive hypertension that had worsened over the last few months. Had headaches that correlated with hypertension, and he noted this headache seemed similar to previous. Noted that his headaches improved with opiates. Was given doses of IV labetalol 10 mg and IV hydralazine 10 mg, as well as dosesof IV morphine 4 mg, IV Dilaudid 1 mg and IV Zofran 4 mg. Unfortunately patientdid not have much improvement of blood pressure or headache with these medications. Slit-lamp exam: I placed tetracaine and fluorescein, there is no dye uptake, anterior chambers are deep and quiet. Patient's vision is normal when I lift his eyelid, this makes me think that he had a little bit of blurred vision but only because of the eyelid swelling. Patient does have hypertension he was hypertensive in the ED and also had a headache. These were treated. Give the patient labetalol and hydralazine I also treated his headache with opiate analgesics, headache only slightly improved, he has significant hypertension still, and its again increasing. I will admit him for observation. 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 S/P insertion of spinal cord stimulator 10/01/2015 Uncontrolled hypertension PAST SURGICAL HISTORY Procedure Laterality Date ARTHRS KNE SURG W/MENISCECTOMY MED/LAT W/SHVG Right 10/09/2015 Right knee arthroscopy medial meniscectomy ARTHRS KNE SURG W/MENISCECTOMY MED/LAT W/SHVG Right 10/26/2016 ARTHRS KNEE DRLG OSTEOCHOND DISSECANS INT FIXJ Right 10/09/2015 PF and medial distal femoral chondroplasties COLONOSCOPY FLX DX W/COLLJ SPEC WHEN PFRMD 11/14/2018 Colonoscopy CYSTO W LITHOTRIPSY 2013 renal calculi x 2 HERNIA REPAIR W/MESH 2000's PAST SURGICAL HISTORY OF nose-reconstruction PAST SURGICAL HISTORY OF Left 80's hand - plate and screws PAST SURGICAL HISTORY OF Left 80's humerous fx PAST SURGICAL HISTORY OF Right 90's Knee scope x's2 PAST SURGICAL HISTORY OF Left scope x's 2 knee PAST SURGICAL HISTORY OF Left acl repair 3x's TOTAL KNEE REPLACEMENT Right 12/01/2021 Right total robotic knee replacement Social History Tobacco Use Smoking status: Every Day Packs/day: .5 Types: Cigars, Cigarettes Start date: 10/20/1988 Smokeless tobacco: Never Tobacco comments: 1 ppd since 2011 Vaping Use Vaping Use: Never used Substance Use Topics Alcohol use: Not Currently Drug use: Not Currently Types: Marijuana ALLERGIES No Known Allergies Family History Problem Relation Age of Onset other (negative) Father Current Outpatient Medications Medication Sig Dispense Refill amLODIPine (NORVASC) 10 mg tablet Take 1 tablet by mouth once daily. 30 tablet 2 chlorthalidone (HYGROTON) 25 mg tablet Take 1 tablet by mouth once daily. 90 tablet 1 finasteride (PROSCAR) 5 mg tablet Take 1 tablet by mouth once daily. 90 tablet 1 hydrALAZINE (APRESOLINE) 50 mg tablet Take 1 tablet by mouth three times daily. 270 tablet 1 labetalol (TRANDATE) 200 mg tablet Take 1.5 tablets by mouth twice daily. 270 tablet 1 lisinopril (ZESTRIL) 40 mg tablet Take 1 tablet by mouth twice daily. 180 tablet 1 tamsulosin (FLOMAX) 0.4 mg Take 1 capsule by mouth daily at bedtime. (Patient not taking: Reported on 12/29/2022) 30 capsule 3 Current Facility-Administered Medications Medication Dose Route Frequency Provider Last Rate Last Admin perflutren lipid microspheres 1.3 mL in NaCl (PF) 0.9% 10 mL injection (DEFINITY) INTRAVENOUS DIRECTED PRN Jossy Natarajan APRN.[place]LEY sodium chloride 0.9 % (flush) 10 mL (BD POSIFLUSH) 10 mL INTRAVENOUS DIRECTED PRN Jossy Natarajan APRN.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 Review of Systems Constitutional: Negative for appetite change, chills, diaphoresis, fatigue, fever and unexpected weight change. Eyes: Positive for visual disturbance. Negative for photophobia. Respiratory: Negative for cough, chest tightness, shortness of breath and wheezing. Cardiovascular: Negative for chest pain, palpitations and leg swelling. Gastrointestinal: Negative. Genitourinary: Positive for flank pain (left lower back). Negative for dysuria, frequency, hematuria and urgency. Musculoskeletal: Positive for back pain. Negative for arthralgias, neck pain and neck stiffness. Skin: Negative. Neurological: Positive for light-headedness and headaches. Negative for seizures, syncope and numbness. Hematological: Negative. BP 172/98 Pulse 81 Temp 98 Ht 5' 10 (1.78m) Wt 258 lb (117.0kg) SpO2 95% BMI 37.02 kg/(m^2). Physical Exam Vitals and nursing note reviewed. Constitutional: General: He is not in acute distress. Appearance: Normal appearance. He is obese. HENT: Mouth/Throat: Mouth: Mucous membranes are moist. Eyes: Pupils: Pupils are equal, round, and reactive to light. Neck: Vascular: No carotid bruit or JVD. Cardiovascular: Rate and Rhythm: Normal rate and regular rhythm. Heart sounds: Normal heart sounds, S1 normal and S2 normal. Pulmonary: Effort: Pulmonary effort is normal. Breath sounds: Normal breath sounds and air entry. Abdominal: General: Bowel sounds are normal. There is no distension. Palpations: Abdomen is soft. Tenderness: There is no abdominal tenderness. There is left CVA tenderness. Musculoskeletal: Cervical back: Neck supple. Lumbar back: Tenderness present. No swelling, edema, deformity or bony tenderness. Normal range of motion. Negative right straight leg raise test and negative left straight leg raise test. Back: Right lower leg: No edema. Left lower leg: No edema. Skin: General: Skin is warm and dry. Findings: No rash. Neurological: Mental Status: He is alert and oriented to person, place, and time. Psychiatric: Mood and Affect: Mood is anxious. Behavior: Behavior normal. Cognition and Memory: Cognition normal. No visits with results within 1 Day(s) from this visit. Latest known visit with results is: Appointment on 12/12/2022 Component Date Value Ref Range Status Creatinine, Ur Random (UCRR) 12/13/2022 185.2 20.0 - 300.0 mg/dL Final Albumin, Urine Random 12/13/2022 43.0 mg/L Final Albumin/Creat Ratio 12/13/2022 23 <30 mg/g Final Adult Male and Female Nephrotic Criteria: <30 mg/g is considered normal to mildly increased 30-300 mg/g is considered moderately increased >300 mg/g is considered severely increased KDIGO. (2013). KDIGO 2012 Clinical Practice Guideline for the Evaluation and Management of Chronic Kidney Disease. Official Journal of the International Society of Nephrology, 3(1), 1-150. WBC 12/12/2022 10.33 3.70 - 11.00 k/uL Final RBC 12/12/2022 4.56 4.20 - 6.00 m/uL Final Hemoglobin 12/12/2022 13.8 13.0 - 17.0 g/dL Final Hematocrit 12/12/2022 39.5 39.0 - 51.0 % Final MCV 12/12/2022 86.6 80.0 - 100.0 fL Final MCH 12/12/2022 30.3 26.0 - 34.0 pg Final MCHC 12/12/2022 34.9 30.5 - 36.0 g/dL Final RDW-CV 12/12/2022 13.0 11.5 - 15.0 % Final Platelet Count 12/12/2022 286 150 - 400 k/uL Final MPV 12/12/2022 10.1 9.0 - 12.7 fL Final Neutrophils % 12/12/2022 62.2 % Final Abs Neut 12/12/2022 6.43 1.45 - 7.50 k/uL Final Lymphocytes % 12/12/2022 22.7 % Final Abs Lymph 12/12/2022 2.35 1.00 - 4.00 k/uL Final Monocytes % 12/12/2022 9.7 % Final Abs Kings 12/12/2022 1.00 (H) <0.87 k/uL Final Eosinophils % 12/12/2022 3.9 % Final Abs Eosin 12/12/2022 0.40 <0.46 k/uL Final Basophils % 12/12/2022 1.0 % Final Abs Baso 12/12/2022 0.10 <0.11 k/uL Final Immature Granulocytes % 12/12/2022 0.5 % Final Abs Immature Gran 12/12/2022 0.05 <0.10 k/uL Final NRBC 12/12/2022 0.0 /100 WBC Final Absolute nRBC 12/12/2022 <0.01 <0.01 k/uL Final Diff Type 12/12/2022 Auto Final Magnesium 12/12/2022 2.0 1.7 - 2.3 mg/dL Final PTH, Intact 12/12/2022 34 15 - 65 pg/mL Final Albumin 12/12/2022 4.4 3.9 - 4.9 g/dL Final Calcium, Total 12/12/2022 9.3 8.5 - 10.2 mg/dL Final Phosphorus 12/12/2022 3.7 2.7 - 4.8 mg/dL Final Glucose 12/12/2022 89 74 - 99 mg/dL Final The [place] Diabetes Association (ADA) provides guidance for cutoff values for fasting glucose and random glucose. The ADA defines fasting as no caloric intake for at least 8 hours. Fasting plasma glucose results between 100 to 125 mg/dL indicate increased risk for diabetes (prediabetes). Fasting plasma glucose results greater than or equal to 126 mg/dL meet the criteria for diagnosis of diabetes. In the absence of unequivocal hyperglycemia, results should be confirmed by repeat testing. In a patient with classic symptoms of hyperglycemia or hyperglycemic crisis, random plasma glucose results greater than or equal to 200 mg/dL meet the criteria for diagnosis of diabetes. Reference: Standards of Medical Care in Diabetes 2016, [place] [employer]. Diabetes Care. 2016.39(Suppl 1). BUN 12/12/2022 23 9 - 24 mg/dL Final Creatinine 12/12/2022 1.04 0.73 - 1.22 mg/dL Final Sodium 12/12/2022 138 136 - 144 mmol/L Final Potassium 12/12/2022 3.9 3.7 - 5.1 mmol/L Final Chloride 12/12/2022 104 97 - 105 mmol/L Final CO2 12/12/2022 24 22 - 30 mmol/L Final Anion Gap 12/12/2022 10 9 - 18 mmol/L Final Estimated Glomerular Filtration Ra* 12/12/2022 85 >=60 mL/min/1.73m Final Estimated Glomerular Filtration Rate (eGFR) is calculated using the 2020 CKD-EPI creatinine equation. This equation utilizes serum creatinine, sex, and age as parameters. The creatinine assay has traceable calibration to isotope dilution-mass spectrometry. Refer to KDIGO guidelines for clinical interpretation. In patients with unstable renal function, e.g. those with acute kidney injury, the eGFR may not accurately reflect actual GFR. Uric Acid 12/12/2022 6.3 4.0 - 8.1 mg/dL Final Color 12/13/2022 Light Yellow Yellow Final Clarity 12/13/2022 Clear Clear Final Glucose, Urine 12/13/2022 Negative Trace, Negative Final Bilirubin, Urine 12/13/2022 Negative Negative Final Ketones, Urine 12/13/2022 Negative Trace, Negative Final Specific [place], Ur 12/13/2022 1.032 (H) 1.005 - 1.030 Final Hemoglobin/Blood,Ur 12/13/2022 Negative Negative, Trace Final pH, Urine 12/13/2022 5.5 5.0 - 8.0 Final Protein, Urine 12/13/2022 Trace Trace, Negative Final Urobilinogen 12/13/2022 Negative Negative Final Nitrites 12/13/2022 Negative Negative Final Leuk Esterase 12/13/2022 Negative Negative, 25 [place]/uL Final WBC, Urine 12/13/2022 0-5 /HPF 0-5 /HPF Final RBC, Urine 12/13/2022 0-3 /HPF 0-3 /HPF Final Squamous Epithelial Cells 12/13/2022 Few /HPF Final Casts, Hyaline 12/13/2022 1-3 /LPF (A) 0 /LPF Final Calcium Oxalate Crystals 12/13/2022 Few (A) None Seen /HPF Final Vitamin D 25 Hydroxy 12/12/2022 30.6 (L) 31.0 - 80.0 ng/mL Final Classification of 25 OH Vitamin D status: Deficiency/Insufficiency: < or = 30 ng/ml. Sufficiency/Optimal Levels: 31-80 ng/mL Toxicity: > 100 ng/mL. Test performed by chemiluminescent immunoassay. ASSESSMENT/PLAN: 1. Uncontrolled hypertension - ICD9: 401.9, ICD10: I10 (primary diagnosis) - Uncontrolled - Increase Hydralazine to 100 mg TID, continue Norvasc, Chlorthalidone, Lisinopril, Labetalol - He is also under the care of Nephrology and will be seeing Cardiology in January - Recommend home blood pressure monitoring, to bring results to next visit - Encouraged sodium restriction, DASH or Mediterranean diet - Recommend regular aerobic exercise - Smoking cessation encouraged; discussed risks to health and quitting strategies. Patient is not ready to quit - Reviewed risks of hypertension and principles of treatment - Follow up in 2 weeks for hypertension visit - HYDRALAZINE 50 MG TABLET 2. Chronic left flank pain - ICD9: 789.09, 338.29, ICD10: R10.9, G89.29 - He has had US of his kidney done that did not show any renal calculi but a stable cyst. There was a small right renal calculi. He has seen urology and was placed on Flomax which he is no longer taking. He is also following with nephrology. - CONSULT TO PAIN MGT 3. DDD (degenerative disc disease), lumbar - ICD9: 722.52, ICD10: M51.36 Chronic low back pain - CONSULT TO PAIN MGT 4. DDD (degenerative disc disease), thoracic - ICD9: 722.51, ICD10: M51.34 - CONSULT TO PAIN MGT 5. Left flank pain - ICD9: 789.09, ICD10: R10.9 - HYDROCODONE 5 MG-ACETAMINOPHEN 325 MG TABLET New medication(s) prescribed today: None. PDMP website checked and validated. All prescriptions have been APPROPRIATELY filled. No suspicious activity was identified. 12/29/2022 by Jossy Natarajan APRN.CNP Some elements of above documentation were copied from my progress note of 12/15/22 and have been reexamined and updated where appropriate. All elements reflect the current assessment and medical decision making today. Counseling completed in adopting health behaviors such as avoiding excessive alcohol use, avoid tobacco use, improve nutrition, and engage in physical activities. Copy of written care plan, clinical summary, treatment plan, new medications, goals, and self management requirements were given to patient. Jossy Natarajan APRN.CNP documented in this encounter [facility] 12-29-2022 Instructions Jossy Natarajan APRN.CNP - 12/29/2022 4:[address] [facility] [place] [address] Appointment:[phone] Pain Management [facility] ([facility]) [address] [place], [place] [id number] Appointment:[phone] documented in this encounter [facility] 12-27-2022 Note HNO ID: [id number] Author: Yuly Polanco MA Service: ? Author Type: An/Ssn 2 4 Operator Type: Progress Notes Filed: 12/27/2022 1:36 PM Note Text: ED Follow Up: Patient discharged from [facility] ED on 12/24/2022. 1. How are you feeling since your ED visit? A bit better Have your symptoms improved or resolved? No 2. Were you prescribed any medications while in the ED or advised to stop any medication? No - If yes, were you able to fill your prescriptions? Not applicable -if stopped medication, what was the medication? na 3. Were you advised to schedule a follow up appointment with your provider? Yes - If no, Do you feel like you need an appointment scheduled? Yes - If yes, Do you need this scheduled now or has this already been scheduled? Not applicable 4. Were you able to contact the office or dye automation operator provider prior to your ED visit? Not applicable 5. Is there anything else I can do for you today? No Patient has ed follow up on with [facility] 12-27-2022 Note Patient Outreach (AG FAMPLE) RUDDY RUVALCABA ([id number]) 1970 M Date Time Provider Department 12/27/22 YULY POLANCO During your visit today, we recorded the following information about you: Yuly Polanco MA 12/27/2022 1:36 PM Signed ED Follow Up: Patient discharged from [facility] ED on 12/24/2022. 1. How are you feeling since your ED visit? A bit better Have your symptoms improved or resolved? No 2. Were you prescribed any medications while in the ED or advised to stop any medication? No - If yes, were you able to fill your prescriptions? Not applicable -if stopped medication, what was the medication? na 3. Were you advised to schedule a follow up appointment with your provider? Yes - If no, Do you feel like you need an appointment scheduled? Yes - If yes, Do you need this scheduled now or has this already been scheduled? Not applicable 4. Were you able to contact the office or dye automation operator provider prior to your ED visit? Not applicable 5. Is there anything else I can do for you today? No Patient has ed follow up on with [facility] Allergies As of Date: 12/27/2022 (No Known Allergies) Date Reviewed: 12/24/2022 Reviewed by: Fabiola Pacheco - Fully Assessed Reason for Visit: ED OUTREACH [Other] Cmt: ED OUTREACH [facility] 12/24/2022 Prescriptions as of 12/27/2022 - amLODIPine (NORVASC) 10 mg tablet Take 1 tablet by mouth once daily. - chlorthalidone (HYGROTON) 25 mg tablet Take 1 tablet by mouth once daily. - finasteride (PROSCAR) 5 mg tablet Take 1 tablet by mouth once daily. - hydrALAZINE (APRESOLINE) 50 mg tablet Take 1 tablet by mouth three times daily. - HYDROcodone-acetaminophen (NORCO) 5-325 mg per tablet Take 1 tablet by mouth once daily as needed for pain for up to 7 days. - labetalol (TRANDATE) 200 mg tablet Take 1.5 tablets by mouth twice daily. - lisinopril (ZESTRIL) 40 mg tablet Take 1 tablet by mouth twice daily. - tamsulosin (FLOMAX) 0.4 mg Take 1 capsule by mouth daily at bedtime. Facility-Administered Medications as of 12/27/2022 - perflutren lipid microspheres 1.3 mL in NaCl (PF) 0.9% 10 mL injection (DEFINITY) - sodium chloride 0.9 % (flush) 10 mL (BD POSIFLUSH) Problem List As Of Date 12/27/2022 Noted Resolved RSD (reflex sympathetic dystrophy) [G90.50] 11/10/2003 Uncontrolled hypertension [I10] 10/01/2015 Kidney stones [N20.0] 10/01/2015 10/20/2016 S/P insertion of spinal cord stimulator [Z96.89]10/01/2015 Complex tear of medial meniscus of right knee a*10/20/2015 Chronic postoperative pain [G89.28] 12/02/2015 Tear of lateral meniscus of right knee, current*10/17/2016 Rupture of anterior cruciate ligament of right *10/31/2016 Headaches [R51.9] 11/15/2021 Class 2 severe obesity due to excess calories w*11/15/2021 Post-traumatic osteoarthritis of right knee [M1*11/15/2021 Tobacco smoker, 1 pack of cigarettes or less pe*11/28/2021 S/P knee replacement [Z96.659] 12/29/2021 Nicotine use disorder, F17.2 [F17.200] 04/01/2022 Obesity, Class I, BMI 30-34.9 [E66.9] 08/24/2022 Hypertensive urgency [I16.0] 08/31/2022 Headache [R51.9] 08/31/2022 Mixed hyperlipidemia [E78.2] 09/01/2022 Left flank pain [R10.9] 11/17/2022 Encounter Status:Closed by YULY POLANCO on 12/27/22 [facility] 12-27-2022 History of Present illness Narrative ED Follow Up: Patient discharged from [facility] ED on 12/24/2022. 1. How are you feeling since your ED visit? A bit better Have your symptoms improved or resolved? No 2. Were you prescribed any medications while in the ED or advised to stop any medication? No - If yes, were you able to fill your prescriptions? Not applicable -if stopped medication, what was the medication? na 3. Were you advised to schedule a follow up appointment with your provider? Yes - If no, Do you feel like you need an appointment scheduled? Yes - If yes, Do you need this scheduled now or has this already been scheduled? Not applicable 4. Were you able to contact the office or dye automation operator provider prior to your ED visit? Not applicable 5. Is there anything else I can do for you today? No Patient has ed follow up on with BQ documented in this encounter [facility] 12-26-2022 Note HNO ID: [id number] Author: Fabiola Marino RT(R) Service: ? Author Type: Technologist Type: Progress Notes Filed: 12/26/2022 11:04 AM Note Text: Radiology Service Progress Note PATIENT NAME: Ruddy Ruvalcaba DATE OF SERVICE: December 26, 2022 TIME: 11:03 AM PATIENT IDENTITY VERIFICATION COMPLETED USING TWO (2) IDENTIFIERS: Name and Date of confirmed by patient verbally. FALL SCREENING: Has the patient had 2 falls in the last year or 1 fall with injury or currently using an Ambulatory Assistive Device (Walker, Cane, Wheelchair, Crutches, etc.)? No PATIENT GENDER DATA: Male PATIENT RELEVANT IMPLANT DATA REVIEWED: Not Applicable RADIOLOGY DEPARTMENT: LUMBAR AP/LAT/L-5 S-1 T-SPINE AP/LAT/SWIMMERS PERIPHERAL IV DATA: Not applicable SIGNED BY: RT Elliott(R) December 26, 2022 11:[address] [facility] 12-26-2022 Note HNO ID: [id number] Author: Cindy Ordaz RDMS Service: ? Author Type: Is Support Analyst Type: Progress Notes Filed: 12/26/2022 10:25 AM Note Text: Radiology Service Progress Note PATIENT NAME: Ruddy Ruvalcaba DATE OF SERVICE: December 26, 2022 TIME: 10:25 AM PATIENT IDENTITY VERIFICATION COMPLETED USING TWO (2) IDENTIFIERS: Name and Date of confirmed by patient verbally. FALL SCREENING: Has the patient had 2 falls in the last year or 1 fall with injury or currently using an Ambulatory Assistive Device (Walker, Cane, Wheelchair, Crutches, etc.)? No PATIENT GENDER DATA: Male PATIENT RELEVANT IMPLANT DATA REVIEWED: Not Applicable RADIOLOGY DEPARTMENT: Ultrasound PERIPHERAL IV DATA: Not applicable SIGNED BY: Cindy Ordaz RDMS RVT December 26, 2022 10:[address] [facility] 12-26-2022 History of Present illness Narrative Radiology Service Progress Note PATIENT NAME: Ruddy Ruvalcaba DATE OF SERVICE: December 26, 2022 TIME: 11:03 AM PATIENT IDENTITY VERIFICATION COMPLETED USING TWO (2) IDENTIFIERS: Name and Date of confirmed by patient verbally. FALL SCREENING: Has the patient had 2 falls in the last year or 1 fall with injury or currently using an Ambulatory Assistive Device (Walker, Cane, Wheelchair, Crutches, etc.)? No PATIENT GENDER DATA: Male PATIENT RELEVANT IMPLANT DATA REVIEWED: Not Applicable RADIOLOGY DEPARTMENT: LUMBAR AP/LAT/L-5 S-1 T-SPINE AP/LAT/SWIMMERS PERIPHERAL IV DATA: Not applicable SIGNED BY: RT Elliott(Obinna) December 26, 2022 11:03 AM documented in this encounter [facility] 12-26-2022 History of Present illness Narrative Radiology Service Progress Note PATIENT NAME: Ruddy Ruvalcaba DATE OF SERVICE: December 26, 2022 TIME: 10:25 AM PATIENT IDENTITY VERIFICATION COMPLETED USING TWO (2) IDENTIFIERS: Name and Date of confirmed by patient verbally. FALL SCREENING: Has the patient had 2 falls in the last year or 1 fall with injury or currently using an Ambulatory Assistive Device (Walker, Cane, Wheelchair, Crutches, etc.)? No PATIENT GENDER DATA: Male PATIENT RELEVANT IMPLANT DATA REVIEWED: Not Applicable RADIOLOGY DEPARTMENT: Ultrasound PERIPHERAL IV DATA: Not applicable SIGNED BY: Cindy Ordaz RDMS RVT December 26, 2022 10:25 AM documented in this encounter [facility] 12-24-2022 Note HNO ID: [id number] Author: Andreina Stroud APRN.AINSLEY Service: ? Author Type: Nurse Practitioner Type: Progress Notes Filed: 12/24/2022 2:47 PM Note Text: She came in with complaints of 2 days worth of eyeball pain. Says it feels like something sharp and stabbing it. Patient says he is tried eyedrops for 2 days with no help. Patient says his vision is extremely blurry in that eye. Patient's blood pressure is also 182/102. Patient was recently admitted due to high blood pressure and kidney problems. Patient was instructed to go to the emergency room. Patient was okay with this care plan and does prefer to take himself. [facility] 12-24-2022 History of Present illness Narrative She came in with complaints of 2 days worth of eyeball pain. Says it feels like something sharp and stabbing it. Patient says he is tried eyedrops for 2 days with no help. Patient says his vision is extremely blurry in that eye. Patient's blood pressure is also 182/102. Patient was recently admitted due to high blood pressure and kidney problems. Patient was instructed to go to the emergency room. Patient was okay with this care plan and does prefer to take himself. documented in this encounter [facility] 12-19-2022 Miscellaneous Notes Hello, The attached patient has a stimulator that is not approved for an MRI of the kidney/adrenal that has been ordered per FDA and corporate safety coordinator guidelines. They have a [employer] Stimulator that has not been functioning since 2005. The patient is unable to turn on the remote needed to place the device properly in MRI mode prior to the MRI scan. If this exam is still needed, then a Risk Benefit discussion will need to take place between the ordering physician and the staff body radiologist who can be reached at [phone]. After that discussion is completed and the MRI is determined as necessary, this will need to be documented in [facility]. Any questions, the MRI Safety Team can be reached at [phone]. Thank you, Gabriella WEINER(R)(MR) MRI Safety Team [phone] Patient has a stimulator which is not approved for MRI scan and unable to turn on remote needed to be placed the device properly in MRI mode. At this time we will cancel MRI. We will order CT scan of abdomen pelvis with IV contrast in the near future. We will follow-up bilateral hypodense renal lesion with kidney ultrasound in 6 to [address] scan of the abdomen pelvis was negative for adrenal mass. documented in this encounter [facility] 12-15-2022 Note HNO ID: [id number] Author: Jossy Natarajan APRN.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 Service: ? Author Type: Nurse Practitioner Type: Progress Notes Filed: 12/21/2022 7:25 PM Note Text: CHIEF COMPLAINT: Ruddy Ruvalcaba is a 52 year old male who presents for 2 week f/u for uncontrolled HTN. I reviewed past medical, surgical, social, and family histories today and updated chart. Allergies, chronic medications, and supplements were also reviewed. Saw Dr. Mortensen with nephrology yesterday. Ordered a MRI to rule out any strucural causes. US was completed and WNL. Home BP readings have been 200/100's and came gown to 190/90's. Continues to have a headache. Waking up with headaches. Hasn't had his PSG yet. Cardiology while hospitalized and nephrology recommend testing for sleep apnea. STOP-BAN History of reflex synthetic dystrophy Has had a spinal cord simulator for the last 20 years but hasn't worked for at least 15 years STOP BANG Questionnaire 1. Snoring Do you snore loudly (louder than talking or loud enough to be heard through closed doors)? YES 2. Tired Do you often feel tired, fatigued, or sleepy during daytime? YES 3. Observed Has anyone observed you stop breathing during your sleep? YES 4. Blood Pressure Do you have or are you being treated for high blood pressure? YES 5. BMI BMI more than 35 kg/m2? YES 6. Age Age over 50 yr old? YES 7. Neck circumference Neck circumference greater than 40 cm? YES 8. Gender Gender male? YES * Neck circumference is measured by staff High risk of LAURYN: answering yes to three or more items Low risk of LAURYN: answering yes to less than three items The history is provided by the patient. No procurement buyer was used. 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 S/P insertion of spinal cord stimulator 10/01/2015 Uncontrolled hypertension PAST SURGICAL HISTORY Procedure Laterality Date ARTHRS KNE SURG W/MENISCECTOMY MED/LAT W/SHVG Right 10/09/2015 Right knee arthroscopy medial meniscectomy ARTHRS KNE SURG W/MENISCECTOMY MED/LAT W/SHVG Right 10/26/2016 ARTHRS KNEE DRLG OSTEOCHOND DISSECANS INT FIXJ Right 10/09/2015 PF and medial distal femoral chondroplasties COLONOSCOPY FLX DX W/COLLJ SPEC WHEN PFRMD 11/14/2018 Colonoscopy CYSTO W LITHOTRIPSY 2013 renal calculi x 2 HERNIA REPAIR W/MESH 2000's PAST SURGICAL HISTORY OF nose-reconstruction PAST SURGICAL HISTORY OF Left 80's hand - plate and screws PAST SURGICAL HISTORY OF Left 80's humerous fx PAST SURGICAL HISTORY OF Right 90's Knee scope x's2 PAST SURGICAL HISTORY OF Left scope x's 2 knee PAST SURGICAL HISTORY OF Left acl repair 3x's TOTAL KNEE REPLACEMENT Right 12/01/2021 Right total robotic knee replacement Social History Tobacco Use Smoking status: Every Day Packs/day: .5 Types: Cigars, Cigarettes Start date: 10/20/1988 Smokeless tobacco: Never Tobacco comments: 1 ppd since 2012 Vaping Use Vaping Use: Never used Substance Use Topics Alcohol use: Not Currently Drug use: Not Currently Types: Marijuana ALLERGIES No Known Allergies Family History Problem Relation Age of Onset other (negative) Father Current Outpatient Medications Medication Sig Dispense Refill lisinopril (ZESTRIL) 40 mg tablet Take 1 tablet by mouth twice daily. 180 tablet 1 labetalol (TRANDATE) 200 mg tablet Take 1.5 tablets by mouth twice daily. 270 tablet 1 hydrALAZINE (APRESOLINE) 50 mg tablet Take 1 tablet by mouth three times daily. 270 tablet 1 iv contrast (will be provided with radiology test) MRI Kidney Inject, intravenously, once for 1 dose. No IV access, insert saline lock prior to the beginning of sedation, infusion, injection of imaging exam. Discontinue saline lock post exam. If Pt. has a central line or IVAD, may access for administration according to line specific nursing protocol. Once exam is complete flush line and de-access according to line specific nursing protocol in the MR contrast administration guidelines link. 1 Each 0 iv contrast (will be provided with radiology test) MRI ADRENAL Inject, intravenously, once for 1 dose. No IV access, insert saline lock prior to the beginning of sedation, infusion, injection of imaging exam. Discontinue saline lock post exam. If Pt. has a central line or IVAD, may access for administration according to line specific nursing protocol. Once exam is complete flush line and de-access according to line specific nursing protocol in the MR contrast administration guidelines link. Patient with elevated plasma free metanephrine level. Rule out pheochromocytoma and adrenal adenoma. 1 Each 0 finasteride (PROSCAR) 5 mg tablet Take 1 tablet by mouth once daily. 90 tablet 1 HYDROcodone-acetaminophen (NORCO) 5-325 mg per tablet Take 1 (more content not included)... [facility] 12-14-2022 Miscellaneous Notes Denial Type: Payer Clinical Guidelines Not Met Denial Rationale: Your doctor is planning sleep testing for you at a health care facility. Based on information provided, you have not had significant problems with your sleep that met criteria to be performed in an outpatient hospital. For that reason, this request is not recommended for approval at this time. Insurance company requesting a Peer to Peer. Please call [phone] Denial forwarded to providers e-mail. documented in this encounter [facility] 12-12-2022 Miscellaneous Notes Patient comment: Balbir and I talked we want this to be my last script of pain medication i have decided to use this script to ween myself off of them. Just like when you and I talked when i was there last the longer im on them the longer it will take to get off them ryley had a decent week with my bp it averaged 165/85 and my pain has been a little better so her and I talked that now is the time to ween myself off of the pain meds. I see Dr Mortensen this week and you so im thinking he is going to have a game plan. documented in this encounter [facility] 12-06-2022 Miscellaneous Notes Refill sent in. PDMP website checked and validated. All prescriptions have been APPROPRIATELY filled. No suspicious activity was identified. 12/06/2022 by Jossy Natarajan APRN.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 Patient is requesting a refill Esme Cox MA documented in this encounter [facility] 12-02-2022 Miscellaneous Notes Pharmacy requesting refills: Last office visit 11/29/22. Last refill 08/19/22. Requested Prescriptions Pending Prescriptions Disp Refills lisinopril (ZESTRIL) 40 mg tablet 30 tablet 2 Sig: Take 1 tablet by mouth once daily. Please review and advise. Yuly Polanco MA documented in this encounter [facility] 11-29-2022 Note HNO ID: [id number] Author: Jossy Natarajan APRN.AINSLEY Service: ? Author Type: Nurse Practitioner Type: Progress Notes Filed: 11/29/2022 5:38 PM Note Text: CHIEF COMPLAINT: Ruddy Ruvalcaba is a 52 year old male who presents for hypertension follow up. He reports his average BP at home has been 172/92 most recent was 197/94 this morning. I reviewed past medical, surgical, social, and family histories today and updated chart. Allergies, chronic medications, and supplements were also reviewed. He is scheduled for his renal artery US on 12/[address] Mortensen on 12/13. He is seeing cardiology in January. Still having left sided flank pain, takes the Vicodin as needed. His would like for him to start cutting back on it if possible. He states when he doesn't take the pain medication his BP goes up to 200's/90-100's. He is waiting to see if they can figure out what is going on with his kidney and can go from there. He also woke up with some right lower back pain yesterday but it improved once he got up and moved around. He thinks he may have slept on it wrong. Had a right sided headache this morning TOTH comes and goes Usually all over Right eyelid swollen this morning No pain No vision changes The history is provided by the patient. No procurement buyer was used. 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 S/P insertion of spinal cord stimulator 10/01/2015 Uncontrolled hypertension PAST SURGICAL HISTORY Procedure Laterality Date ARTHRS KNE SURG W/MENISCECTOMY MED/LAT W/SHVG Right 10/09/2015 Right knee arthroscopy medial meniscectomy ARTHRS KNE SURG W/MENISCECTOMY MED/LAT W/SHVG Right 10/26/2016 ARTHRS KNEE DRLG OSTEOCHOND DISSECANS INT FIXJ Right 10/09/2015 PF and medial distal femoral chondroplasties COLONOSCOPY FLX DX W/COLLJ SPEC WHEN PFRMD 11/14/2018 Colonoscopy CYSTO W LITHOTRIPSY 2012 renal calculi x 2 HERNIA REPAIR W/MESH PAST SURGICAL HISTORY OF nose-reconstruction PAST SURGICAL HISTORY OF Left 80's hand - plate and screws PAST SURGICAL HISTORY OF Left 80's humerous fx PAST SURGICAL HISTORY OF Right 90's Knee scope x's2 PAST SURGICAL HISTORY OF Left scope x's 2 knee PAST SURGICAL HISTORY OF Left acl repair 3x's TOTAL KNEE REPLACEMENT Right 12/01/2021 Right total robotic knee replacement Social History Tobacco Use Smoking status: Every Day Packs/day: .5 Types: Cigars, Cigarettes Start date: 10/20/1988 Smokeless tobacco: Never Tobacco comments: 1 ppd since 2011 Vaping Use Vaping Use: Never used Substance Use Topics Alcohol use: Not Currently Drug use: Not Currently Types: Marijuana ALLERGIES No Known Allergies Family History Problem Relation Age of Onset other (negative) Father Current Outpatient Medications Medication Sig Dispense Refill HYDROcodone-acetaminophen (NORCO) 5-325 mg per tablet Take 1 tablet by mouth every 6 hours as needed for pain for up to 5 days. Do not start before November 25, 2022. 20 tablet 0 tamsulosin (FLOMAX) 0.4 mg Take 1 capsule by mouth daily at bedtime. 30 capsule 3 chlorthalidone (HYGROTON) 25 mg tablet Take 1 tablet by mouth once daily. 90 tablet 1 amLODIPine (NORVASC) 10 mg tablet Take 1 tablet by mouth once daily. 30 tablet 2 lisinopril (ZESTRIL) 20 mg tablet Take 1 tablet by mouth daily at bedtime. 90 tablet 1 cyclobenzaprine (FLEXERIL) 10 mg tablet hydrALAZINE (APRESOLINE) 10 mg tablet Take 1 tablet by mouth three times daily. 90 tablet 1 metoprolol succinate ER (TOPROL XL) 100 mg Take 1 tablet by mouth once daily. 30 tablet 2 ondansetron (ZOFRAN) 4 mg tablet Take 1 tablet by mouth every 12 hours as needed for nausea/vomiting. 8 tablet 0 SUMAtriptan (IMITREX) 25 mg tablet Take 1 tablet by mouth as needed for migraine headache (see administration instructions). 6 tablet 0 lisinopril (ZESTRIL) 40 mg tablet Take 1 tablet by mouth once daily. 30 tablet 2 atorvastatin (LIPITOR) 20 mg tablet Take 1 tablet by mouth once daily. 90 tablet 3 ascorbic acid, vitamin C, (VITAMIN C) 500 mg tablet Take 1 tablet by mouth twice daily with meals for 27 doses. 27 tablet 0 aspirin, enteric coated (ASPIRIN, ENTERIC COATED) 81 mg EC tablet Take 1 tablet by mouth twice daily for 28 days. 56 tablet 0 Current Facility-Administered Medications Medication Dose Route Frequency Provider Last Rate Last Admin perflutren lipid microspheres 1.3 mL in NaCl (PF) 0.9% 10 mL injection (DEFINITY) INTRAVENOUS DIRECTED PRN Jossy Natarajan, BRYANNA.AINSLEY sodium chloride 0.9 % (flush) 10 mL (BD POSIFLUSH) 10 mL INTRAVENOUS DIRECTED PRN Jossy Natarajan, 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 Review of Systems Constitutional: Negative for appetite change, chills, diaphoresis, fatigue, fever and unexpected weight change. Eyes: Po (more content not included)... [facility] 11-29-2022 History of Present illness Narrative Images from the original note were not included. CHIEF COMPLAINT: Ruddy Ruvalcaba is a 52 year old male who presents for hypertension follow up. He reports his average BP at home has been 172/92 most recent was 197/94 this morning. I reviewed past medical, surgical, social, and family histories today and updated chart. Allergies, chronic medications, and supplements were also reviewed. He is scheduled for his renal artery US on 12/[address] Mortensen on 12/13. He is seeing cardiology in January. Still having left sided flank pain, takes the Vicodin as needed. His would like for him to start cutting back on it if possible. He states when he doesn't take the pain medication his BP goes up to 200's/90-100's. He is waiting to see if they can figure out what is going on with his kidney and can go from there. He also woke up with some right lower back pain yesterday but it improved once he got up and moved around. He thinks he may have slept on it wrong. Had a right sided headache this morning TOTH comes and goes Usually all over Right eyelid swollen this morning No pain No vision changes The history is provided by the patient. No procurement buyer was used. 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 S/P insertion of spinal cord stimulator 10/01/2015 Uncontrolled hypertension PAST SURGICAL HISTORY Procedure Laterality Date ARTHRS KNE SURG W/MENISCECTOMY MED/LAT W/SHVG Right 10/09/2015 Right knee arthroscopy medial meniscectomy ARTHRS KNE SURG W/MENISCECTOMY MED/LAT W/SHVG Right 10/26/2016 ARTHRS KNEE DRLG OSTEOCHOND DISSECANS INT FIXJ Right 10/09/2015 PF and medial distal femoral chondroplasties COLONOSCOPY FLX DX W/COLLJ SPEC WHEN PFRMD 11/14/2018 Colonoscopy CYSTO W LITHOTRIPSY 2013 renal calculi x 2 HERNIA REPAIR W/MESH 2000's PAST SURGICAL HISTORY OF nose-reconstruction PAST SURGICAL HISTORY OF Left 80's hand - plate and screws PAST SURGICAL HISTORY OF Left 80's humerous fx PAST SURGICAL HISTORY OF Right 90's Knee scope x's2 PAST SURGICAL HISTORY OF Left scope x's 2 knee PAST SURGICAL HISTORY OF Left acl repair 3x's TOTAL KNEE REPLACEMENT Right 12/01/2021 Right total robotic knee replacement Social History Tobacco Use Smoking status: Every Day Packs/day: .5 Types: Cigars, Cigarettes Start date: 10/20/1988 Smokeless tobacco: Never Tobacco comments: 1 ppd since 2011 Vaping Use Vaping Use: Never used Substance Use Topics Alcohol use: Not Currently Drug use: Not Currently Types: Marijuana ALLERGIES No Known Allergies Family History Problem Relation Age of Onset other (negative) Father Current Outpatient Medications Medication Sig Dispense Refill HYDROcodone-acetaminophen (NORCO) 5-325 mg per tablet Take 1 tablet by mouth every 6 hours as needed for pain for up to 5 days. Do not start before November 25, 2022. 20 tablet 0 tamsulosin (FLOMAX) 0.4 mg Take 1 capsule by mouth daily at bedtime. 30 capsule 3 chlorthalidone (HYGROTON) 25 mg tablet Take 1 tablet by mouth once daily. 90 tablet 1 amLODIPine (NORVASC) 10 mg tablet Take 1 tablet by mouth once daily. 30 tablet 2 lisinopril (ZESTRIL) 20 mg tablet Take 1 tablet by mouth daily at bedtime. 90 tablet 1 cyclobenzaprine (FLEXERIL) 10 mg tablet hydrALAZINE (APRESOLINE) 10 mg tablet Take 1 tablet by mouth three times daily. 90 tablet 1 metoprolol succinate ER (TOPROL XL) 100 mg Take 1 tablet by mouth once daily. 30 tablet 2 ondansetron (ZOFRAN) 4 mg tablet Take 1 tablet by mouth every 12 hours as needed for nausea/vomiting. 8 tablet 0 SUMAtriptan (IMITREX) 25 mg tablet Take 1 tablet by mouth as needed for migraine headache (see administration instructions). 6 tablet 0 lisinopril (ZESTRIL) 40 mg tablet Take 1 tablet by mouth once daily. 30 tablet 2 atorvastatin (LIPITOR) 20 mg tablet Take 1 tablet by mouth once daily. 90 tablet 3 ascorbic acid, vitamin C, (VITAMIN C) 500 mg tablet Take 1 tablet by mouth twice daily with meals for 27 doses. 27 tablet 0 aspirin, enteric coated (ASPIRIN, ENTERIC COATED) 81 mg EC tablet Take 1 tablet by mouth twice daily for 28 days. 56 tablet 0 Current Facility-Administered Medications Medication Dose Route Frequency Provider Last Rate Last Admin perflutren lipid microspheres 1.3 mL in NaCl (PF) 0.9% 10 mL injection (DEFINITY) INTRAVENOUS DIRECTED PRN Jossy Natarajan, 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 sodium chloride 0.9 % (flush) 10 mL (BD POSIFLUSH) 10 mL INTRAVENOUS DIRECTED PRN Jossy Natarajan, 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 Review of Systems Constitutional: Negative for appetite change, chills, diaphoresis, fatigue, fever and unexpected weight change. Eyes: Positive for visual disturbance. Negative for photophobia. Respiratory: Negative for cough, chest tightness, shortness of breath and wheezing. Cardiovascular: Negative for chest pain, palpitations and leg swelling. Gastrointestinal: Negative. Genitourinary: Positive for flank pain (left lower back). Negative for dysuria, frequency, hematuria and urgency. Musculoskeletal: Negative for arthralgias, neck pain and neck stiffness. Skin: Negative. Neurological: Positive for light-headedness and headaches. Negative for seizures, syncope and numbness. Hematological: Negative. BP 174/92 Pulse 89 Temp 98.6 Resp 18 Ht 5' 10 (1.78m) Wt 250 lb (113.4kg) SpO2 97% BMI 35.87 kg/(m^2). Physical Exam Vitals and nursing note reviewed. Constitutional: General: He is not in acute distress. Appearance: Normal appearance. He is obese. HENT: Mouth/Throat: Mouth: Mucous membranes are moist. Eyes: Pupils: Pupils are equal, round, and reactive to light. Neck: Vascular: No carotid bruit or JVD. Cardiovascular: Rate and Rhythm: Normal rate and regular rhythm. Heart sounds: Normal heart sounds, S1 normal and S2 normal. Pulmonary: Effort: Pulmonary effort is normal. Breath sounds: Normal breath sounds and air entry. Abdominal: General: Bowel sounds are normal. There is no distension. Palpations: Abdomen is soft. Tenderness: There is no abdominal tenderness. Musculoskeletal: Cervical back: Neck supple. Lumbar back: Tenderness present. No swelling, edema or bony tenderness. Normal range of motion. Negative right straight leg raise test and negative left straight leg raise test. Back: Right lower leg: No edema. Left lower leg: No edema. Skin: General: Skin is warm and dry. Findings: No rash. Neurological: Mental Status: He is alert and oriented to person, place, and time. Psychiatric: Behavior: Behavior normal. Cognition and Memory: Cognition normal. ASSESSMENT/PLAN: 1. Uncontrolled hypertension - ICD9: 401.9, ICD10: I10 (primary diagnosis) - Uncontrolled - Continue current medications- Norvasc, Lisinopril, Hydralazine, Chlorthalidone, Metoprolol - Recommend home blood pressure monitoring, to bring results to next visit - Encouraged sodium restriction, DASH or Mediterranean diet - Recommend regular aerobic exercise - Following with nephrology and has an appointment with cardiology - Scheduled for an in house PSG - Follow up in 2 weeks for hypertension visit 2. Renal artery stenosis (HCC) - ICD9: 440.1, ICD10: I70.1 - Scheduled for US next week, following with Dr. Mortensen 3. Left flank pain - ICD9: 789.09, ICD10: R10.9 - Discussed cutting back to every 8 hours as needed for pain until his follow up with Dr. Mortensen. Will then have to wean off after. - HYDROCODONE 5 MG-ACETAMINOPHEN 325 MG TABLET PDMP website checked and validated. All prescriptions have been APPROPRIATELY filled. No suspicious activity was identified. 11/29/2022 by Jossy Natarajan APRN.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 Some elements of above documentation were copied from my progress note of 11/17/22 and have been reexamined and updated where appropriate. All elements reflect the current assessment and medical decision making today. New medication(s) prescribed today: None. Counseling completed in adopting health behaviors such as avoiding excessive alcohol use, avoid tobacco use, improve nutrition, and engage in physical activities. Copy of written care plan, clinical summary, treatment plan, new medications, goals, and self management requirements were given to patient. Jossy Natarajan APRN.AINSLEY documented in this encounter [facility] 11-17-2022 Note HNO ID: [id number] Author: Jossy Natarajan APRN.CNP Service: ? Author Type: Nurse Practitioner Type: Progress Notes Filed: 11/20/2022 1:22 PM Note Text: CHIEF COMPLAINT: Ruddy Ruvalcaba is a 52 year old male who presents for 10 day f/u for uncontrolled hypertension. I reviewed past medical, surgical, social, and family histories today and updated chart. Allergies, chronic medications, and supplements were also reviewed. He had a virtual appointment with Nephrology (Dr. Mortensen) on 11/10/22 and the HCTZ was stopped and switched to Chlorthalidone. His lisinopril was increased to 40 mg in the morning and 20 mg at night. He remains on Metoprolol 100 mg BID and Hydralazine mg TID. A renal artery US was ordered but isn't scheduled until 12/08. He continues to have elevated BP readings at home. 221/108 at 2:40 pm today 190/100 this morning Average BP over the last 3 days- 192-99 The history is provided by the patient. No procurement buyer was used. 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 S/P insertion of spinal cord stimulator 10/01/2015 Uncontrolled hypertension PAST SURGICAL HISTORY Procedure Laterality Date ARTHRS KNE SURG W/MENISCECTOMY MED/LAT W/SHVG Right 10/09/2015 Right knee arthroscopy medial meniscectomy ARTHRS KNE SURG W/MENISCECTOMY MED/LAT W/SHVG Right 10/26/2016 ARTHRS KNEE DRLG OSTEOCHOND DISSECANS INT FIXJ Right 10/09/2015 PF and medial distal femoral chondroplasties COLONOSCOPY FLX DX W/COLLJ SPEC WHEN PFRMD 11/14/2018 Colonoscopy CYSTO W LITHOTRIPSY 2013 renal calculi x 2 HERNIA REPAIR W/MESH 1999's PAST SURGICAL HISTORY OF nose-reconstruction PAST SURGICAL HISTORY OF Left 80's hand - plate and screws PAST SURGICAL HISTORY OF Left 80's humerous fx PAST SURGICAL HISTORY OF Right 90's Knee scope x's2 PAST SURGICAL HISTORY OF Left scope x's 2 knee PAST SURGICAL HISTORY OF Left acl repair 3x's TOTAL KNEE REPLACEMENT Right 12/01/2021 Right total robotic knee replacement Social History Tobacco Use Smoking status: Every Day Packs/day: .5 Types: Cigars, Cigarettes Start date: 10/20/1988 Smokeless tobacco: Never Tobacco comments: 1 ppd since 2011 Vaping Use Vaping Use: Never used Substance Use Topics Alcohol use: Not Currently Drug use: Not Currently Types: Marijuana ALLERGIES No Known Allergies Family History Problem Relation Age of Onset other (negative) Father Current Outpatient Medications Medication Sig Dispense Refill tamsulosin (FLOMAX) 0.4 mg Take 1 capsule by mouth daily at bedtime. 30 capsule 3 chlorthalidone (HYGROTON) 25 mg tablet Take 1 tablet by mouth once daily. 90 tablet 1 amLODIPine (NORVASC) 10 mg tablet Take 1 tablet by mouth once daily. 30 tablet 2 lisinopril (ZESTRIL) 20 mg tablet Take 1 tablet by mouth daily at bedtime. 90 tablet 1 cyclobenzaprine (FLEXERIL) 10 mg tablet hydrALAZINE (APRESOLINE) 10 mg tablet Take 1 tablet by mouth three times daily. 90 tablet 1 metoprolol succinate ER (TOPROL XL) 100 mg Take 1 tablet by mouth once daily. 30 tablet 2 ondansetron (ZOFRAN) 4 mg tablet Take 1 tablet by mouth every 12 hours as needed for nausea/vomiting. 8 tablet 0 SUMAtriptan (IMITREX) 25 mg tablet Take 1 tablet by mouth as needed for migraine headache (see administration instructions). 6 tablet 0 lisinopril (ZESTRIL) 40 mg tablet Take 1 tablet by mouth once daily. 30 tablet 2 atorvastatin (LIPITOR) 20 mg tablet Take 1 tablet by mouth once daily. 90 tablet 3 ascorbic acid, vitamin C, (VITAMIN C) 500 mg tablet Take 1 tablet by mouth twice daily with meals for 27 doses. 27 tablet 0 aspirin, enteric coated (ASPIRIN, ENTERIC COATED) 81 mg EC tablet Take 1 tablet by mouth twice daily for 28 days. 56 tablet 0 Current Facility-Administered Medications Medication Dose Route Frequency Provider Last Rate Last Admin perflutren lipid microspheres 1.3 mL in NaCl (PF) 0.9% 10 mL injection (DEFINITY) INTRAVENOUS DIRECTED PRN Jossy Natarajan APRN.CNP sodium chloride 0.9 % (flush) 10 mL (BD POSIFLUSH) 10 mL INTRAVENOUS DIRECTED PRN Jossy Natarajan APRN.CNP Review of Systems Constitutional: Negative for appetite change, chills, diaphoresis, fatigue, fever and unexpected weight change. Eyes: Positive for visual disturbance. Negative for photophobia. Respiratory: Negative for cough, chest tightness, shortness of breath and wheezing. Cardiovascular: Negative for chest pain, palpitations and leg swelling. Gastrointestinal: Negative. Genitourinary: Positive for flank pain (left lower back). Negative for dysuria, frequency, hematuria and urgency. Musculoskeletal: Negative for arthralgias, neck pain and neck stiffness. Skin: Negative. Neurological: Positive for light-headedness and headaches. Negative for (more content not included)... [facility] 11-17-2022 Miscellaneous Notes I spoke with the patient's around 4 pm and informed her that I cannot direct admit and do not have privileges at [place]. We will discuss his BP and symptoms at his appointment today. He recently had an appointment with nephrology who order further lab work and a renal vascular US but it isn't scheduled until 12/08/22. Patient's left message stating she is extremely concerned about patient. States his BP at 2:48 was 221/108 and patient is having a severe headache. Balbir would like Jossy to call her back to discuss because she is not able to come to the appointment today because she is at work but she is very concerned and would like patient to be admitted to figure out what is going on with his kidneys because he has done the ultrasounds and blood work. Carlene Hussein MA documented in this encounter [facility] 11-17-2022 History of Present illness Narrative Images from the original note were not included. CHIEF COMPLAINT: Ruddy Ruvalcaba is a 52 year old male who presents for 10 day f/u for uncontrolled hypertension. I reviewed past medical, surgical, social, and family histories today and updated chart. Allergies, chronic medications, and supplements were also reviewed. He had a virtual appointment with Nephrology (Dr. Mortensen) on 11/10/22 and the HCTZ was stopped and switched to Chlorthalidone. His lisinopril was increased to 40 mg in the morning and 20 mg at night. He remains on Metoprolol 100 mg BID and Hydralazine mg TID. A renal artery US was ordered but isn't scheduled until 12/08. He continues to have elevated BP readings at home. 221/108 at 2:40 pm today 190/100 this morning Average BP over the last 3 days- 192-99 The history is provided by the patient. No procurement buyer was used. 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 S/P insertion of spinal cord stimulator 10/01/2015 Uncontrolled hypertension PAST SURGICAL HISTORY Procedure Laterality Date ARTHRS KNE SURG W/MENISCECTOMY MED/LAT W/SHVG Right 10/09/2015 Right knee arthroscopy medial meniscectomy ARTHRS KNE SURG W/MENISCECTOMY MED/LAT W/SHVG Right 10/26/2016 ARTHRS KNEE DRLG OSTEOCHOND DISSECANS INT FIXJ Right 10/09/2015 PF and medial distal femoral chondroplasties COLONOSCOPY FLX DX W/COLLJ SPEC WHEN PFRMD 11/14/2018 Colonoscopy CYSTO W LITHOTRIPSY 2013 renal calculi x 2 HERNIA REPAIR W/MESH 1999's PAST SURGICAL HISTORY OF nose-reconstruction PAST SURGICAL HISTORY OF Left 80's hand - plate and screws PAST SURGICAL HISTORY OF Left 80's humerous fx PAST SURGICAL HISTORY OF Right 90's Knee scope x's2 PAST SURGICAL HISTORY OF Left scope x's 2 knee PAST SURGICAL HISTORY OF Left acl repair 3x's TOTAL KNEE REPLACEMENT Right 12/01/2021 Right total robotic knee replacement Social History Tobacco Use Smoking status: Every Day Packs/day: .5 Types: Cigars, Cigarettes Start date: 10/20/1988 Smokeless tobacco: Never Tobacco comments: 1 ppd since 2011 Vaping Use Vaping Use: Never used Substance Use Topics Alcohol use: Not Currently Drug use: Not Currently Types: Marijuana ALLERGIES No Known Allergies Family History Problem Relation Age of Onset other (negative) Father Current Outpatient Medications Medication Sig Dispense Refill tamsulosin (FLOMAX) 0.4 mg Take 1 capsule by mouth daily at bedtime. 30 capsule 3 chlorthalidone (HYGROTON) 25 mg tablet Take 1 tablet by mouth once daily. 90 tablet 1 amLODIPine (NORVASC) 10 mg tablet Take 1 tablet by mouth once daily. 30 tablet 2 lisinopril (ZESTRIL) 20 mg tablet Take 1 tablet by mouth daily at bedtime. 90 tablet 1 cyclobenzaprine (FLEXERIL) 10 mg tablet hydrALAZINE (APRESOLINE) 10 mg tablet Take 1 tablet by mouth three times daily. 90 tablet 1 metoprolol succinate ER (TOPROL XL) 100 mg Take 1 tablet by mouth once daily. 30 tablet 2 ondansetron (ZOFRAN) 4 mg tablet Take 1 tablet by mouth every 12 hours as needed for nausea/vomiting. 8 tablet 0 SUMAtriptan (IMITREX) 25 mg tablet Take 1 tablet by mouth as needed for migraine headache (see administration instructions). 6 tablet 0 lisinopril (ZESTRIL) 40 mg tablet Take 1 tablet by mouth once daily. 30 tablet 2 atorvastatin (LIPITOR) 20 mg tablet Take 1 tablet by mouth once daily. 90 tablet 3 ascorbic acid, vitamin C, (VITAMIN C) 500 mg tablet Take 1 tablet by mouth twice daily with meals for 27 doses. 27 tablet 0 aspirin, enteric coated (ASPIRIN, ENTERIC COATED) 81 mg EC tablet Take 1 tablet by mouth twice daily for 28 days. 56 tablet 0 Current Facility-Administered Medications Medication Dose Route Frequency Provider Last Rate Last Admin perflutren lipid microspheres 1.3 mL in NaCl (PF) 0.9% 10 mL injection (DEFINITY) INTRAVENOUS DIRECTED PRN Jossy Natarajan 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 sodium chloride 0.9 % (flush) 10 mL (BD POSIFLUSH) 10 mL INTRAVENOUS DIRECTED PRN Jossy Natarajan BRYANNA.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 Review of Systems Constitutional: Negative for appetite change, chills, diaphoresis, fatigue, fever and unexpected weight change. Eyes: Positive for visual disturbance. Negative for photophobia. Respiratory: Negative for cough, chest tightness, shortness of breath and wheezing. Cardiovascular: Negative for chest pain, palpitations and leg swelling. Gastrointestinal: Negative. Genitourinary: Positive for flank pain (left lower back). Negative for dysuria, frequency, hematuria and urgency. Musculoskeletal: Negative for arthralgias, neck pain and neck stiffness. Skin: Negative. Neurological: Positive for light-headedness and headaches. Negative for seizures, syncope and numbness. Hematological: Negative. BP 194/102 Pulse 86 Temp 98 Resp 20 Ht 5' 10 (1.78m) Wt 253 lb (114.8kg) SpO2 98% BMI 36.30 kg/(m^2). Physical Exam Vitals and nursing note reviewed. Constitutional: General: He is not in acute distress. Appearance: Normal appearance. He is obese. HENT: Mouth/Throat: Mouth: Mucous membranes are moist. Eyes: Pupils: Pupils are equal, round, and reactive to light. Cardiovascular: Rate and Rhythm: Normal rate and regular rhythm. Heart sounds: Normal heart sounds, S1 normal and S2 normal. Pulmonary: Effort: Pulmonary effort is normal. Breath sounds: Normal breath sounds and air entry. Abdominal: General: Bowel sounds are normal. There is no distension. Palpations: Abdomen is soft. Tenderness: There is no abdominal tenderness. Musculoskeletal: Cervical back: Neck supple. Lumbar back: Tenderness present. No swelling, edema or bony tenderness. Normal range of motion. Negative right straight leg raise test and negative left straight leg raise test. Back: Right lower leg: No edema. Left lower leg: No edema. Skin: General: Skin is warm and dry. Findings: No rash. Neurological: Mental Status: He is alert and oriented to person, place, and time. Sensory: Sensation is intact. Motor: Motor function is intact. Deep Tendon Reflexes: Reflex Scores: Patellar reflexes are 2+ on the right side and 2+ on the left side. Psychiatric: Mood and Affect: Mood is anxious. Behavior: Behavior normal. Cognition and Memory: Cognition normal. No visits with results within 1 Day(s) from this visit. Latest known visit with results is: Office Visit on 11/07/2022 Component Date Value Ref Range Status GLUCOSE UA (POCT) 11/07/2022 Negative Negative mg/dL Final BILIRUBIN UA (POCT) 11/07/2022 Negative Negative Final KETONE UA (POCT) 11/07/2022 Negative Negative mg/dL Final SPECIFIC GRAVITY UA (POCT) 11/07/2022 >=1.030 1.005 - 1.030 Final HEMOGLOBIN/BLOOD UA (POCT) 11/07/2022 Negative Negative Final PH UA (POCT) 11/07/2022 5.5 4.5 - 8.0 Final PROTEIN UA (POCT) 11/07/2022 30 (A) Negative mg/dL Final UROBILINOGEN UA (POCT) 11/07/2022 0.2 Normal E.U./dL Final NITRITE UA (POCT) 11/07/2022 Negative Negative Final LEUKOCYTES UA (POCT) 11/07/2022 Negative Negative Final COLOR UA (POCT) 11/07/2022 Yellow Final CLARITY UA (POCT) 11/07/2022 Clear Final ASSESSMENT/PLAN: 1. Uncontrolled hypertension - ICD9: 401.9, ICD10: I10 (primary diagnosis) - Uncontrolled - Continue current medications - Resistant hypertension workup ordered: Polysomnogram - Following with kidney medicine for resistant hypertension - Recommend home blood pressure monitoring, to bring results to next visit - Encouraged sodium restriction, DASH or Mediterranean diet - Recommend regular aerobic exercise - Discussed need for and benefit of weight loss. BMI 36.30 kg/(m^2) - Smoking cessation encouraged; discussed risks to health and quitting strategies. Patient is contemplative and preparing to quit - Follow up in 2 weeks for hypertension visit 2. Renal artery stenosis (HCC) - ICD9: 440.1, ICD10: I70.1 - Workup ordered by renal including renal artery US 3. Left flank pain - ICD9: 789.09, ICD10: R10.9 - Discussed with the patient that this will be the last refill I will be able to provide for his pain. Was seen by urology for bilateral renal stones but it is not believed that the stones would be causing the pain since they are small and nonobstructive. - HYDROCODONE 5 MG-ACETAMINOPHEN 325 MG TABLET 4. Bilateral renal stones - ICD9: 592.0, ICD10: N20.0 5. Tobacco smoker, 1 pack of cigarettes or less per day - ICD9: 305.1, ICD10: F17.210 - Cessation encouraged. - Physiologic and physical aspects of tobacco addiction as well as strategies for quitting were discussed. - Counseling was given focusing on the harmful effects of this addiction especially given the patient's medical condition(s) which will be worsened because of the chemicals in tobacco. - Counseling was given 3-4 minutes. New medication(s) prescribed today: Yes: [place]. Discussed new medication dosage, usage, goals of therapy, and side effects. Patient has been apprised of any potential drug interactions to be aware of. Patient expresses understanding. PDMP website checked and validated. All prescriptions have been APPROPRIATELY filled. No suspicious activity was identified.11/17/2022 by Jossy Natarajan APRN.AINSLEY Some elements of above documentation were copied from my progress note of 11/07/22 and have been reexamined and updated where appropriate. All elements reflect the current assessment and medical decision making today. Counseling completed in adopting health behaviors such as avoiding excessive alcohol use, avoid tobacco use, improve nutrition, and engage in physical activities. Copy of written care plan, clinical summary, treatment plan, new medications, goals, and self management requirements were given to patient. Jossy Natarajan APRN.AINSLEY documented in this encounter [facility] 11-15-2022 Miscellaneous Notes Patient called- informed. Verbalizes understanding. Cari Borges LPN Called patient. No answer- left message to call clinic for results/orders. Cari Borges LPN Please let patient know his repeat Renal US did show multiple sub-centimeter renal stones bilaterally all 5 mm of less, none have moved to be obstructing and no hydronephrosis. As dicussed at his visit the stone may cause some blood to be in the urine on UA, but given the small size and locations and no obstruction I do not think these are the source of his low back pain. However, I can set him up with a Stone Specialist if he would like to discuss this further. We have [facility] or [facility] who deal with kidney stones. H e should remain on Flomax which can help facilitate passing of these stones if they do move into the [place]. There is still the left renal cyst which will not cause pain and needs follow-up US in 1 year just to keep an eye on size. 1 year Renal US ordered. Refill given for Flomax sent to [facility], [place] documented in this encounter [facility] 11-11-2022 Note HNO ID: [id number] Author: Lili Lopez RDMS Service: ? Author Type: Tariff Expert Type: Progress Notes Filed: 11/11/2022 11:31 AM Note Text: Radiology Service Progress Note PATIENT NAME: Ruddy Ruvalcaba DATE OF SERVICE: November 11, 2022 TIME: 11:30 AM PATIENT IDENTITY VERIFICATION COMPLETED USING TWO (2) IDENTIFIERS: Name and Date of confirmed by patient verbally. FALL SCREENING: Has the patient had 2 falls in the last year or 1 fall with injury or currently using an Ambulatory Assistive Device (Walker, Cane, Wheelchair, Crutches, etc.)? No PATIENT GENDER DATA: Male PATIENT RELEVANT IMPLANT DATA REVIEWED: Not Applicable RADIOLOGY DEPARTMENT: Ultrasound PERIPHERAL IV DATA: Not applicable SIGNED BY: Lili Lopez RDMS November 11, 2022 11:[address] [facility] 11-11-2022 History of Present illness Narrative Radiology Service Progress Note PATIENT NAME: Ruddy Ruvalcaba DATE OF SERVICE: November 11, 2022 TIME: 11:30 AM PATIENT IDENTITY VERIFICATION COMPLETED USING TWO (2) IDENTIFIERS: Name and Date of confirmed by patient verbally. FALL SCREENING: Has the patient had 2 falls in the last year or 1 fall with injury or currently using an Ambulatory Assistive Device (Walker, Cane, Wheelchair, Crutches, etc.)? No PATIENT GENDER DATA: Male PATIENT RELEVANT IMPLANT DATA REVIEWED: Not Applicable RADIOLOGY DEPARTMENT: Ultrasound PERIPHERAL IV DATA: Not applicable SIGNED BY: Lili Lopez RDMS November 11, 2022 11:30 AM documented in this encounter [facility] 11-10-2022 History of Present illness Narrative TELE HEALTH VISIT This Tele health visit is a virtual encounter. It required patient-provider interaction for the medical decision making as documented below. Chief complaint : Subjective : Ruddy Ruvalcaba is a 52 year old male seen for CKD follow up. SUBJECTIVE: Ruddy Ruvalcaba is a 52 year old White male with past medical history significant for : HTN, heavy smoker, spinal cord stimulator 2016 and kidney stones who has been having ongoing problems with uncontrolled hypertension and HAs over the past several weeks. He presented to the [facility] with a severe TOTH and hypertension. Patient is compliant with his medication. 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 Home blood pressure medication including hydrochlorothiazide 25 mg daily lisinopril 40 mg daily Norvasc 10 mg daily and metoprolol 100 mg daily. Was encouraged to stop smoking is down to 130 PPD. His reduce his sodium intake. His patient was advised to do sleep study although not been completed. Echocardiogram on 08/29/2022 revealed grade 1 diastolic dysfunction mild LVH. His blood pressure was more than 200 emergency room recent clonidine hydralazine labetalol was admitted to ICU for hypertensive urgency. Initial blood pressure was 200 230 symptomatic headache received clonidine 0.1 mg, hydralazine 20 mg x 2 and labetalol 10 mg x 3. Received 1 L of IV fluid total 10 mg of IV morphine 10 mg for Reglan 15 mg of Toradol. Also received 50 mg of Benadryl and [address] scan of brain no acute findings CT scan of the chest no acute aortic syndrome no large pulm embolism CT abdomen pelvis no acute finding in the chest abdomen pelvis. Function is within normal limits. Urine can avoid urinary positive. WBC is 13,000. CT scan of the abdomen revealed bilateral hypodense renal lesion likely represent renal cyst no hydronephrosis calculus. After dc, he developed kidney stone BP is not controlled 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 S/P insertion of spinal cord stimulator 10/01/2015 Uncontrolled hypertension ALLERGIES No Known Allergies Current Outpatient Medications Medication Sig chlorthalidone (HYGROTON) 25 mg tablet Take 1 tablet by mouth once daily. amLODIPine (NORVASC) 10 mg tablet Take 1 tablet by mouth once daily. lisinopril (ZESTRIL) 20 mg tablet Take 1 tablet by mouth daily at bedtime. HYDROcodone-acetaminophen (NORCO) 5-325 mg per tablet Take 1 tablet by mouth every 4 hours as needed for pain for up to 7 days. cyclobenzaprine (FLEXERIL) 10 mg tablet tamsulosin (FLOMAX) 0.4 mg Take 1 capsule by mouth daily at bedtime. (Patient taking differently: Take 0.4 mg by mouth daily at bedtime. Takes in the morning) hydrALAZINE (APRESOLINE) 10 mg tablet Take 1 tablet by mouth three times daily. metoprolol succinate ER (TOPROL XL) 100 mg Take 1 tablet by mouth once daily. ondansetron (ZOFRAN) 4 mg tablet Take 1 tablet by mouth every 12 hours as needed for nausea/vomiting. SUMAtriptan (IMITREX) 25 mg tablet Take 1 tablet by mouth as needed for migraine headache (see administration instructions). lisinopril (ZESTRIL) 40 mg tablet Take 1 tablet by mouth once daily. atorvastatin (LIPITOR) 20 mg tablet Take 1 tablet by mouth once daily. ascorbic acid, vitamin C, (VITAMIN C) 500 mg tablet Take 1 tablet by mouth twice daily with meals for 27 doses. aspirin, enteric coated (ASPIRIN, ENTERIC COATED) 81 mg EC tablet Take 1 tablet by mouth twice daily for 28 days. Current Facility-Administered Medications Medication Dose Route Frequency perflutren lipid microspheres 1.3 mL in NaCl (PF) 0.9% 10 mL injection (DEFINITY) INTRAVENOUS DIRECTED PRN sodium chloride 0.9 % (flush) 10 mL (BD POSIFLUSH) 10 mL INTRAVENOUS DIRECTED PRN Social History Tobacco Use Smoking status: Every Day Packs/day: .5 Types: Cigars, Cigarettes Start date: 10/20/1988 Smokeless tobacco: Never Tobacco comments: 1 ppd since 2012 Vaping Use Vaping Use: Never used Substance Use Topics Alcohol use: Not Currently Drug use: Not Currently Types: Marijuana PAST SURGICAL HISTORY Procedure Laterality Date ARTHRS KNE SURG W/MENISCECTOMY MED/LAT W/SHVG Right 10/09/2015 Right knee arthroscopy medial meniscectomy ARTHRS KNE SURG W/MENISCECTOMY MED/LAT W/SHVG Right 10/26/2016 ARTHRS KNEE DRLG OSTEOCHOND DISSECANS INT FIXJ Right 10/09/2015 PF and medial distal femoral chondroplasties COLONOSCOPY FLX DX W/COLLJ SPEC WHEN PFRMD 11/14/2018 Colonoscopy CYSTO W LITHOTRIPSY 2013 renal calculi x 2 HERNIA REPAIR W/MESH 1999's PAST SURGICAL HISTORY OF nose-reconstruction PAST SURGICAL HISTORY OF Left 80's hand - plate and screws PAST SURGICAL HISTORY OF Left 80's humerous fx PAST SURGICAL HISTORY OF Right 90's Knee scope x's2 PAST SURGICAL HISTORY OF Left scope x's 2 knee PAST SURGICAL HISTORY OF Left acl repair 3x's TOTAL KNEE REPLACEMENT Right 12/01/2021 Right total robotic knee replacement ACTIVE PROBLEM LIST Rsd (Reflex Sympathetic Dystrophy) Uncontrolled Hypertension S/P Insertion of Spinal Cord Stimulator Complex Tear of Medial Meniscus of Right Knee As Current Injury Chronic Postoperative Pain Tear of Lateral Meniscus of Right Knee, Current Rupture of Anterior Cruciate Ligament of Right Knee Headaches Class 2 Severe Obesity Due to Excess Calories With Serious Comorbidity and Body Mass Index (Bmi) of 35.0 to 35.9 in Adult (Hcc) Post-Traumatic Osteoarthritis of Right Knee Tobacco Smoker, 1 Pack of Cigarettes Or Less Per Day S/P Knee Replacement Nicotine use disorder, F17.2 Obesity, Class I, Bmi 30-34.9 Hypertensive Urgency Headache Mixed Hyperlipidemia FAMILY HISTORY Problem Relation Age of Onset other (negative) Father FAMILY HISTORY OF: CVA:No CAD: No DIABETES: No HTN: No KIDNEY DISEASE: No NEPHROLITHIASIS: No REVIEW OF SYSTEMS: CONSTITUTIONAL: Denies fevers, chills, and weight changes. Denies fatigue/malaise. EYES: No acute vision change or ocular pain. Denies dryness or redness of eyes. ENT: No difficulties with hearing. No sinus pain or sore throat.No epistaxis, nasal discharge/congestion. No dry mouth, oral ulceration, or gingivitis. PULMONARY: Denies shortness of breath, wheezing, cough or hemoptysis. CARDIOLOGY: Denies chest pain, palpitations, GRANADO, orthopnea or PND. GI: No anorexia, nausea, vomiting, dysphagia, diarrhea, constipation, abdominal pain, hematochezia or melena. : No urinary hesitancy or dribbling. No nocturia or urinary frequency. No abnormal discharge. No hematuria, dysuria, or flank pain. MUSCULO-SKELETAL: No joint pain, swelling or erythema. ENDO: Denies any Cold or Heat Intolerance. Denies any polyuria or polydipsia. HEME: Denies any bleeding problems, clotting problems or easy Bruising. SKIN: Denies any rashes or skin changes. No itching. NEUROLOGIC: Denies any headache, Dizziness or seizures. No numbness, tingling, weakness or tremors. EXTREMITIES: Denies any lower Extremity edema. Denies any claudication or peripheral ulcer. [A full 12 point ROS was obtained and is negative other than that cited above.] PHYSICAL EXAMINATION: VIDEO EXAM: (if done, performed via video enabled technology) No exam performed LAB DATA Component Latest Ref Rng & Units 09/01/2022 Protein, Total 6.3 - 8.0 g/dL 7.0 Albumin 3.9 - 4.9 g/dL 4.2 Calcium 8.5 - 10.2 mg/dL 9.1 Bilirubin, Total 0.2 - 1.3 mg/dL 0.3 Alkaline Phosphatase 38 - 113 U/L 79 AST 14 - 40 U/L 15 ALT 10 - 54 U/L 20 Glucose 74 - 99 mg/dL 99 BUN 9 - 24 mg/dL 14 Creatinine 0.73 - 1.22 mg/dL 0.99 Sodium 136 - 144 mmol/L 137 Potassium 3.7 - 5.1 mmol/L 3.8 Chloride 97 - 105 mmol/L 103 CO2 22 - 30 mmol/L 23 Anion Gap 9 - 18 mmol/L 11 eGFR >=60 mL/min/1.73m 91 WBC 3.70 - 11.00 k/uL 13.53 (H) RBC 4.20 - 6.00 m/uL 4.65 Hemoglobin 13.0 - 17.0 g/dL 14.0 Hematocrit 39.0 - 51.0 % 42.0 MCV 80.0 - 100.0 fL 90.3 MCH 26.0 - 34.0 pg 30.1 MCHC 30.5 - 36.0 g/dL 33.3 RDW-CV 11.5 - 15.0 % 13.0 Platelet Count 150 - 400 k/uL 298 MPV 9.0 - 12.7 fL 10.1 Absolute nRBC <0.01 k/uL <0.01 Direct Renin 3.6 - 81.6 pg/mL 7.3 Patient Upright or Supine Upright Metanephrine, Plasma 12 - 67 pg/mL 79 (H) Normetanephrine, Free Plasma 18 - 101 pg/mL 160 (H) Magnesium 1.7 - 2.3 mg/dL 2.2 Free T3 2.3 - 4.1 pg/mL 4.6 (H) Cortisol 4.8 - 19.5 ug/dL 13.7 Aldosterone 0.0 - <35.4 ng/dL 3.0 ACTH 7.2 - 63.3 pg/mL 6.4 (L) 09/01/22 : kidney Us : IMPRESSION: Left renal cyst. Kidneys otherwise are unremarkable. No RIGHT renal mass is evident. Suggest repeat ultrasound in 12 months to reassess RIGHT kidney. Hepatic steatosis Echo 09/09 : Impression CONCLUSIONS: - Technically difficult exam due to body habitus. - Exam indication: Hypertension - The left ventricle is small. There is mild concentric left ventricular hypertrophy. Left ventricular systolic function is normal. EF = 65 5% (2D biplane) Grade I left ventricular diastolic dysfunction. - The right ventricle is normal in size. Right ventricular systolic function is normal. - There are no significant valvular abnormalities. - The visualized aorta is borderline dilated with a maximal dimension of 3.9 cm. - Patient was advised by his family physician to go to the ER for elevated blood pressure. CT abdo : Bilat non obstructive stione bilar A/P 1. Hypertensive urgency/accelerated hypertension-most likely primary hypertension although rule out secondary hypertension 2. Obesity 3. Headache 4. Rule out sleep apnea 5. Grade 1 DD Plan of management --ACTH 6.4 and serum cortisol 13.7 --serum aldosterone 3.0 and plasma renin activity 7.3 --Check renal artery duplex ---Currently on aspirin 81 mg daily and Lipitor 20 mg daily --Discontinue hydrochlorothiazide start on chlorthalidone 25 mg daily --Amlodipine 10 mg p.o. daily --On metoprolol tartrate 100 mg twice a day, may need to add atenolol and labetolol --change Lisinopril 40 mg po q am and 20 mg po QPM --patient is a hydralazine 10 milligram by mouth 3 times a day --Blood pressure is not controlled then Increase dose of hydralazine. --Avoid nephrotoxins --Consider MRI/MRI of adrenal and kidney artery as needed --I highly doubted that his back pain is coming from kidney stone. Patient has bilateral nonobstructing kidney stone. There is no stone in renal pelvis or ureter Patient is getting follow-up kidney ultrasound to see whether the stone has moved from recent CT scan -- During this patient tele health visit I have spent approximately 20 minutes. Return in 1 month (on 12/11/2022). documented in this encounter [facility] 11-07-2022 Note HNO ID: [id number] Author: Jossy Natarajan APRN.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 Service: ? Author Type: Nurse Practitioner Type: Progress Notes Filed: 11/08/2022 12:30 PM Note Text: CHIEF COMPLAINT: Ruddy Ruvalcaba is a 52 year old male who presents for 2 week f/u for left lower flank and back pain. I reviewed past medical, surgical, social, and family histories today and updated chart. Allergies, chronic medications, and supplements were also reviewed. He continues to have severe left lower back pain Only relief he gets is with the [facility] urology and was told that the back pain is not suspected from the kidney stones Had multiple stones but unable to differentiate the sizes Repeat US was ordered BP there was severely elevated at 200/104 (with machine) He does check his BP at home and it remains elevated but hasn't been over 200 He is scheduled to see Nephrology with Dr. Mortensen on Monday Previous HPI from 10/24/22: He was seen at [place] [facility] on 10/22/22 for left flank pain that was worsening. He has a history of kidney stones and this pain felt similar. He was taking Ibuprofen and Tylenol without any relief. He had labs and CT and completed. He was told he had no kidney stones but upon review in the chart it does state there are bilateral non obstructing kidney stones. He was given pain medication and discharged home. Today his pain has worsened and he has finished the pain medication he was given. He was also in the hospital in August for HTN urgency and left AMA on the last day because he was told he only had 1 more test to do . There is no discharge summary to review but there are inpatient notes including from cardiology and nephrology. Upon independent review, nephrology wanted to change some of his medications but it was never ordered or changed prior to him leaving. The Lisinopril was to be changed to Ramipril, HCTZ stopped and changed to Chlorthalidone, continue Metoprolol BID and Norvasc daily. He states he did not know anything about these changes. He was started on Hydralazine in the middle of September after discharge when he had called in and his BP was still uncontrolled and having headaches. He hasn't made an appointment with cardiology yet and didn't know he was to follow up with nephrology at discharge. The history is provided by the patient. No procurement buyer was used. 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 S/P insertion of spinal cord stimulator 10/01/2015 Uncontrolled hypertension PAST SURGICAL HISTORY Procedure Laterality Date ARTHRS KNE SURG W/MENISCECTOMY MED/LAT W/SHVG Right 10/09/2015 Right knee arthroscopy medial meniscectomy ARTHRS KNE SURG W/MENISCECTOMY MED/LAT W/SHVG Right 10/26/2016 ARTHRS KNEE DRLG OSTEOCHOND DISSECANS INT FIXJ Right 10/09/2015 PF and medial distal femoral chondroplasties COLONOSCOPY FLX DX W/COLLJ SPEC WHEN PFRMD 11/14/2018 Colonoscopy CYSTO W LITHOTRIPSY 2013 renal calculi x 2 HERNIA REPAIR W/MESH 2000's PAST SURGICAL HISTORY OF nose-reconstruction PAST SURGICAL HISTORY OF Left 80's hand - plate and screws PAST SURGICAL HISTORY OF Left 80's humerous fx PAST SURGICAL HISTORY OF Right 90's Knee scope x's2 PAST SURGICAL HISTORY OF Left scope x's 2 knee PAST SURGICAL HISTORY OF Left acl repair 3x's TOTAL KNEE REPLACEMENT Right 12/01/2021 Right total robotic knee replacement Social History Tobacco Use Smoking status: Every Day Packs/day: .5 Types: Cigars, Cigarettes Start date: 10/20/1988 Smokeless tobacco: Never Tobacco comments: 1 ppd since 2011 Vaping Use Vaping Use: Never used Substance Use Topics Alcohol use: Not Currently Drug use: Not Currently Types: Marijuana ALLERGIES No Known Allergies Family History Problem Relation Age of Onset other (negative) Father Current Outpatient Medications Medication Sig Dispense Refill tamsulosin (FLOMAX) 0.4 mg Take 1 capsule by mouth daily at bedtime. (Patient taking differently: Take 0.4 mg by mouth daily at bedtime. Takes in the morning) 14 capsule 0 hydrALAZINE (APRESOLINE) 10 mg tablet Take 1 tablet by mouth three times daily. 90 tablet 1 metoprolol succinate ER (TOPROL XL) 100 mg Take 1 tablet by mouth once daily. 30 tablet 2 hydroCHLOROthiazide 25 mg tablet Take 1 tablet by mouth once daily. 30 tablet 2 lisinopril (ZESTRIL) 40 mg tablet Take 1 tablet by mouth once daily. 30 tablet 2 atorvastatin (LIPITOR) 20 mg tablet Take 1 tablet by mouth once daily. 90 tablet 3 amLODIPine (NORVASC) 10 mg tablet Take 1 tablet by mouth once daily. 30 tablet 2 ascorbic acid, vitamin C, (VITAMIN C) 500 mg tablet Take 1 tablet by mouth twice daily with meals for 27 doses. 27 tablet 0 aspirin, enteric coated (ASPIRIN, ENTERIC COATED) 81 mg EC tablet Take 1 tablet by mouth (more content not included)... [facility] 11-04-2022 Note HNO ID: [id number] Author: Cinthia Avilez PA-C Service: ? Author Type: Physician Patient Relations Director Type: Progress Notes Filed: 11/04/2022 5:34 PM Note Text: [facility] NEW CONSULT PATIENT CLINIC NOTE SERVICE DATE: 11/04/2022 SERVICE TIME: 5:24 PM NAME: Ruddy Ruvalcaba Consultation requested by Jossy Natarajan APRN.CNP for an opinion regarding Flank Pain and Bilateral Non-Obstructing Stones My final recommendations communicated back to the requesting physician by way of our shared Medical record. CHIEF COMPLAINT: Flank Pain and Bilateral Non-Obstructing Stones HISTORY OF PRESENT ILLNESS: Ruddy Ruvalcaba is a 52 year old male presenting for New Patient Consult for Flank Pain and Bilateral Non-Obstructing Stones The patient reports moderate flank pain and truly feels this is all kidney stone related After discussion and review off all the images and PCR of 0 ml with no urinary symptoms like hematuria I bharati don;t think this is due to the kidney stones, unless they have moved into ureter since 10/22/2022 So getting a Renal Us to check And he will followup with PCP Monday as planned LUTS: None LABS: No results found for: TESTOST No results found for: TESTFREE No results found for: PSA Hematocrit (%) Date Value 09/01/2022 42.0 08/31/2022 42.2 11/15/2021 42.6 No results found for: PSA Creatinine Date Value Ref Range Status 09/01/2022 0.99 0.73 - 1.22 mg/dL Final 08/31/2022 1.07 0.73 - 1.22 mg/dL Final 11/15/2021 0.96 0.73 - 1.22 mg/dL Final 10/01/2015 0.99 0.70 - 1.40 mg/dL Final MEDICATIONS: acetaminophen (TYLENOL) 500 mg tabletTake 1,000 mg by mouth every 8 hours as needed. Patient reports taking more often than he should- educated and verbalizes understanding.Disp: Rfl: HYDROcodone-acetaminophen (NORCO) 5-325 mg per tabletTake 1 tablet by mouth every 4 hours as needed for pain for up to 7 days.Disp: 28 tabletRfl: 0 tamsulosin (FLOMAX) 0.4 mgTake 1 capsule by mouth daily at bedtime.Disp: 14 capsuleRfl: 0 (Patient taking differently: Take 0.4 mg by mouth daily at bedtime. Takes in the morning) hydrALAZINE (APRESOLINE) 10 mg tabletTake 1 tablet by mouth three times daily.Disp: 90 tabletRfl: 1 metoprolol succinate ER (TOPROL XL) 100 mgTake 1 tablet by mouth once daily.Disp: 30 tabletRfl: 2 hydroCHLOROthiazide 25 mg tabletTake 1 tablet by mouth once daily.Disp: 30 tabletRfl: 2 lisinopril (ZESTRIL) 40 mg tabletTake 1 tablet by mouth once daily.Disp: 30 tabletRfl: 2 atorvastatin (LIPITOR) 20 mg tabletTake 1 tablet by mouth once daily.Disp: 90 tabletRfl: 3 amLODIPine (NORVASC) 10 mg tabletTake 1 tablet by mouth once daily.Disp: 30 tabletRfl: 2 cyclobenzaprine (FLEXERIL) 10 mg tabletDisp: Rfl: (Patient not taking: Reported on 11/04/2022) ondansetron (ZOFRAN) 4 mg tabletTake 1 tablet by mouth every 12 hours as needed for nausea/vomiting.Disp: 8 tabletRfl: 0 (Patient not taking: Reported on 11/04/2022) SUMAtriptan (IMITREX) 25 mg tabletTake 1 tablet by mouth as needed for migraine headache (see administration instructions).Disp: 6 tabletRfl: 0 (Patient not taking: Reported on 11/04/2022) ascorbic acid, vitamin C, (VITAMIN C) 500 mg tabletTake 1 tablet by mouth twice daily with meals for 27 doses.Disp: 27 tabletRfl: 0 aspirin, enteric coated (ASPIRIN, ENTERIC COATED) 81 mg EC tabletTake 1 tablet by mouth twice daily for 28 days.Disp: 56 tabletRfl: 0 PAST MEDICAL HISTORY: 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 S/P insertion of spinal cord stimulator 10/01/2015 Uncontrolled hypertension PAST SURGICAL HISTORY: PAST SURGICAL HISTORY Procedure Laterality Date ARTHRS KNE SURG W/MENISCECTOMY MED/LAT W/SHVG Right 10/09/2015 Right knee arthroscopy medial meniscectomy ARTHRS KNE SURG W/MENISCECTOMY MED/LAT W/SHVG Right 10/26/2016 ARTHRS KNEE DRLG OSTEOCHOND DISSECANS INT FIXJ Right 10/09/2015 PF and medial distal femoral chondroplasties COLONOSCOPY FLX DX W/COLLJ SPEC WHEN PFRMD 11/14/2018 Colonoscopy CYSTO W LITHOTRIPSY 2013 renal calculi x 2 HERNIA REPAIR W/MESH 2000's PAST SURGICAL HISTORY OF nose-reconstruction PAST SURGICAL HISTORY OF Left 80's hand - plate and screws PAST SURGICAL HISTORY OF Left 80's humerous fx PAST SURGICAL HISTORY OF Right 90's Knee scope x's2 PAST SURGICAL HISTORY OF Left scope x's 2 knee PAST SURGICAL HISTORY OF Left acl repair 3x's TOTAL KNEE REPLACEMENT Right 12/01/2021 Right total robotic knee replacement FAMILY HISTORY: FAMILY HISTORY Problem Relation Age of Onset other (negative) Father SOCIAL HISTORY: Social Connections: Not on file REVIEW OF SYSTEMS: GENERAL: No fever, chills, weight loss, or fatigue. ENMT: Negative CARD (more content not included)... [facility] 11-04-2022 Note HNO ID: [id number] Author: Cari Borges LPN Service: ? Author Type: ? Type: Progress Notes Filed: 11/04/2022 5:34 PM Note Text: Verified name and date of . CC Post Void Residual HPI: Ruddy Ruvalcaba is a 52 year old male. The patient is here now for an appointment with Cinthia Avilez, SENIA, NI, PA-COV. Procedure: Explained procedure to patient and verbalizes understanding. Performed a PVR. Patient reports having urinated downstairs with check in for appointment. PVR done using bladder ultrasound scanner. Results of scan: 0 mL The patient tolerated the procedure well. Plan: Appointment with Cinthia. [facility] 11-04-2022 History of Present illness Narrative Images from the original note were not included. [facility] NEW CONSULT PATIENT CLINIC NOTE SERVICE DATE: 11/04/2022 SERVICE TIME: 5:24 PM NAME: Ruddy Ruvalcaba Consultation requested by Jossy Natarajan APRN.CNP for an opinion regarding Flank Pain and Bilateral Non-Obstructing Stones My final recommendations communicated back to the requesting physician by way of our shared Medical record. CHIEF COMPLAINT: Flank Pain and Bilateral Non-Obstructing Stones HISTORY OF PRESENT ILLNESS: Ruddy Ruvalcaba is a 52 year old male presenting for New Patient Consult for Flank Pain and Bilateral Non-Obstructing Stones The patient reports moderate flank pain and truly feels this is all kidney stone related After discussion and review off all the images and PCR of 0 ml with no urinary symptoms like hematuria I bharati don;t think this is due to the kidney stones, unless they have moved into ureter since 10/22/2022 So getting a Renal Us to check And he will followup with PCP Monday as planned LUTS: None LABS: No results found for: TESTOST No results found for: TESTFREE No results found for: PSA Hematocrit (%) Date Value 09/01/2022 42.0 08/31/2022 42.2 11/15/2021 42.6 No results found for: PSA Creatinine Date Value Ref Range Status 09/01/2022 0.99 0.73 - 1.22 mg/dL Final 08/31/2022 1.07 0.73 - 1.22 mg/dL Final 11/15/2021 0.96 0.73 - 1.22 mg/dL Final 10/01/2015 0.99 0.70 - 1.40 mg/dL Final MEDICATIONS: acetaminophen (TYLENOL) 500 mg tablet^Take 1,000 mg by mouth every 8 hours as needed. Patient reports taking more often than he should- educated and verbalizes understanding.^Disp: ^Rfl: HYDROcodone-acetaminophen (NORCO) 5-325 mg per tablet^Take 1 tablet by mouth every 4 hours as needed for pain for up to 7 days.^Disp: 28 tablet^Rfl: 0 tamsulosin (FLOMAX) 0.4 mg^Take 1 capsule by mouth daily at bedtime.^Disp: 14 capsule^Rfl: 0 (Patient taking differently: Take 0.4 mg by mouth daily at bedtime. Takes in the morning) hydrALAZINE (APRESOLINE) 10 mg tablet^Take 1 tablet by mouth three times daily.^Disp: 90 tablet^Rfl: 1 metoprolol succinate ER (TOPROL XL) 100 mg^Take 1 tablet by mouth once daily.^Disp: 30 tablet^Rfl: 2 hydroCHLOROthiazide 25 mg tablet^Take 1 tablet by mouth once daily.^Disp: 30 tablet^Rfl: 2 lisinopril (ZESTRIL) 40 mg tablet^Take 1 tablet by mouth once daily.^Disp: 30 tablet^Rfl: 2 atorvastatin (LIPITOR) 20 mg tablet^Take 1 tablet by mouth once daily.^Disp: 90 tablet^Rfl: 3 amLODIPine (NORVASC) 10 mg tablet^Take 1 tablet by mouth once daily.^Disp: 30 tablet^Rfl: 2 cyclobenzaprine (FLEXERIL) 10 mg tablet^^Disp: ^Rfl: (Patient not taking: Reported on 11/04/2022) ondansetron (ZOFRAN) 4 mg tablet^Take 1 tablet by mouth every 12 hours as needed for nausea/vomiting.^Disp: 8 tablet^Rfl: 0 (Patient not taking: Reported on 11/04/2022) SUMAtriptan (IMITREX) 25 mg tablet^Take 1 tablet by mouth as needed for migraine headache (see administration instructions).^Disp: 6 tablet^Rfl: 0 (Patient not taking: Reported on 11/04/2022) ascorbic acid, vitamin C, (VITAMIN C) 500 mg tablet^Take 1 tablet by mouth twice daily with meals for 27 doses.^Disp: 27 tablet^Rfl: 0 aspirin, enteric coated (ASPIRIN, ENTERIC COATED) 81 mg EC tablet^Take 1 tablet by mouth twice daily for 28 days.^Disp: 56 tablet^Rfl: 0 PAST MEDICAL HISTORY: 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 S/P insertion of spinal cord stimulator 10/01/2015 Uncontrolled hypertension PAST SURGICAL HISTORY: PAST SURGICAL HISTORY Procedure Laterality Date ARTHRS KNE SURG W/MENISCECTOMY MED/LAT W/SHVG Right 10/09/2015 Right knee arthroscopy medial meniscectomy ARTHRS KNE SURG W/MENISCECTOMY MED/LAT W/SHVG Right 10/26/2016 ARTHRS KNEE DRLG OSTEOCHOND DISSECANS INT FIXJ Right 10/09/2015 PF and medial distal femoral chondroplasties COLONOSCOPY FLX DX W/COLLJ SPEC WHEN PFRMD 11/14/2018 Colonoscopy CYSTO W LITHOTRIPSY 2013 renal calculi x 2 HERNIA REPAIR W/MESH 2000's PAST SURGICAL HISTORY OF nose-reconstruction PAST SURGICAL HISTORY OF Left 80's hand - plate and screws PAST SURGICAL HISTORY OF Left 80's humerous fx PAST SURGICAL HISTORY OF Right 90's Knee scope x's2 PAST SURGICAL HISTORY OF Left scope x's 2 knee PAST SURGICAL HISTORY OF Left acl repair 3x's TOTAL KNEE REPLACEMENT Right 12/01/2021 Right total robotic knee replacement FAMILY HISTORY: FAMILY HISTORY Problem Relation Age of Onset other (negative) Father SOCIAL HISTORY: Social Connections: Not on file REVIEW OF SYSTEMS: GENERAL: No fever, chills, weight loss, or fatigue. ENMT: Negative CARDIOVASCULAR:NO CHEST PAIN, PALPITATIONS, ANKLE EDEMA RESPIRATORY: No chronic cough, wheezing, dyspnea, hemoptysis. GENITOURINARY: SEE HPI MUSCULOSKELETAL:NO CHRONIC BACK PAIN, ARTHRITIS, CHRONIC NECK PAIN SKIN: NO VARICOSE VEINS, RASH, ABNORMAL ITCHING HEME/LYMPH/IMMUNE:Negative for prolonged bleeding, bruising easily or swollen nodes NEUROLOGICAL: NO HEADACHES, NUMBNESS, SEIZURES, STROKE DIABETES: no All other systems reviewed and are negative PHYSICAL EXAMINATION: Blood pressure 200/104, pulse 84, temperature 36.7 C (98.1 F), temperature source Temporal, resp. rate 18, height 177.8 cm (5' 10 ), weight 116.7 kg (257 lb 3.2 oz), SpO2 98 %. GENERAL: WNL nutrition, no deformities, healthy appearing NEURO: Awake, alert and oriented x 3 and Normal gait PSYCH: No signs of depression, anxiety, or agitation ENMT (Ear, Nose, Mouth, Throat): No masses, adenopathy, icterus. Thyroid nonpalpable RESP: NL effort, no retractions or purse-lip breathing. CV: No extremity swelling, varices, edema, pallor, erythema GASTROINTESTINAL: Soft, nontender, nondistended, no masses. HERNIAS: None SKIN: No rash, lesions No palpable lymphadenopathy MUSCULOSKELETAL: Extremities normal. No deformities, edema, clubbing or skin discoloration. PROBLEM LIST REVIEW: Yes LABS: Results for orders placed or performed during the hospital encounter of 08/31/22 US KIDNEY/BLADDER Result Value Ref Range Radiology Result ACTIONABLE (Actionable) STAPH AUREUS PCR Result Value Ref Range Staph aureus PCR Negative for Staphylococcus aureus by PCR. Negative MRSA PCR Negative for MRSA by PCR Negative TOX SCREEN ROUT UR Result Value Ref Range Phencyclidine Urine Negative Negative Benzodiazepines Urine Negative Negative Cocaine Urine Negative Negative Amphetamines Urine Negative Negative Cannabinoids, Urine Preliminary positive (A) Negative Opiates Urine Preliminary positive (A) Negative Barbiturates Urine Negative Negative Ethanol, Urine <11 <11 mg/dL Oxycodone, Urine Preliminary positive (A) Negative TSH BLD Result Value Ref Range TSH 0.826 0.270 - 4.200 mIU/L PHOSPHORUS INORGANIC Result Value Ref Range Phosphorus 3.3 2.7 - 4.8 mg/dL MAGNESIUM BLD Result Value Ref Range Magnesium 2.2 1.7 - 2.3 mg/dL CBC Result Value Ref Range WBC 13.53 (H) 3.70 - 11.00 k/uL RBC 4.65 4.20 - 6.00 m/uL Hemoglobin 14.0 13.0 - 17.0 g/dL Hematocrit 42.0 39.0 - 51.0 % MCV 90.3 80.0 - 100.0 fL MCH 30.1 26.0 - 34.0 pg MCHC 33.3 30.5 - 36.0 g/dL RDW-CV 13.0 11.5 - 15.0 % Platelet Count 298 150 - 400 k/uL MPV 10.1 9.0 - 12.7 fL Absolute nRBC <0.01 <0.01 k/uL COMP METABOLIC PANEL Result Value Ref Range Protein, Total 7.0 6.3 - 8.0 g/dL Albumin 4.2 3.9 - 4.9 g/dL Calcium, Total 9.1 8.5 - 10.2 mg/dL Bilirubin, Total 0.3 0.2 - 1.3 mg/dL Alkaline Phosphatase 79 38 - 113 U/L AST 15 14 - 40 U/L ALT 20 10 - 54 U/L Glucose 99 74 - 99 mg/dL BUN 14 9 - 24 mg/dL Creatinine 0.99 0.73 - 1.22 mg/dL Sodium 137 136 - 144 mmol/L Potassium 3.8 3.7 - 5.1 mmol/L Chloride 103 97 - 105 mmol/L CO2 23 22 - 30 mmol/L Anion Gap 11 9 - 18 mmol/L Estimated Glomerular Filtration Rate 91 >=60 mL/min/1.73m T3 FREE BLD Result Value Ref Range Free T3 4.6 (H) 2.3 - 4.1 pg/mL CORTISOL BLD Result Value Ref Range Cortisol 13.7 4.8 - 19.5 ug/dL DIRECT RENIN PLASMA Result Value Ref Range Direct Renin 7.3 3.6 - 81.6 pg/mL Patient Upright or Supine Upright ALDOSTERONE BLD Result Value Ref Range Aldosterone 3.0 0.0 - <35.4 ng/dL ACTH BLD Result Value Ref Range ACTH 6.4 (L) 7.2 - 63.3 pg/mL METANEPHRINES, FREE PLASMA Result Value Ref Range Metanephrine, Plasma 79 (H) 12 - 67 pg/mL Normetanephrine, Plasma 160 (H) 18 - 101 pg/mL PROCEDURES: PVR: 0 ml IMAGING: CT bilateral Non-obstructing Stone Renal US- pending IMPRESSION/PLAN: 52 year old male with 1. Left flank pain - ICD9: 789.09, ICD10: R10.9 2. Bilateral renal stones - ICD9: 592.0, ICD10: N20.0 > Review of Imaging from August 2022- No Kidney Stones noted on either images > Review of CT scan from [facility] - Shows Bilateral NON\-OBSTRUCTING STONES- no sizes given > Recommend continued use of Flomax to help pass any small stone less than 6 mm > I recommended a new Renal US to check if any stone may be obstructions And Follow-up up with PCP if still no -obstructing stones on imaging I do not think that his pain is from kidney stones Back Pain is Etiology unknown Unable to access urine , he was unable to give a urine sample today at office PVR - 0 ml I spent a total of 40 minutes on the date of the service which included preparing to see the patient, face to face patient care, completing clinical documentation, obtaining and/or reviewing separately obtained history, performing a medically appropriate examination, counseling and educating the patient/family/caregiver, ordering medications, tests, or procedures, and care coordination. SENIA Ribeiro MT, PA-C Verified name and date of . CC Post Void Residual HPI: Ruddy Ruvalcaba is a 52 year old male. The patient is here now for an appointment with SENIA Ribeiro MT, PA-COV. Procedure: Explained procedure to patient and verbalizes understanding. Performed a PVR. Patient reports having urinated downstairs with check in for appointment. PVR done using bladder ultrasound scanner. Results of scan: 0 mL The patient tolerated the procedure well. Plan: Appointment with Cinthia. documented in this encounter [facility] 11-04-2022 Instructions Cinthia Avilez PA-C - 11/04/2022 4:40 PM EDT Patient needs Renal US for possible change in kidney stone location If possible schedule MARYELLEN, please look at other locations for the soonest possible He is seeing PCP Monday at [facility] documented in this encounter [facility] 10-31-2022 Miscellaneous Notes patient electronically requesting refills as follows: Last seen 10/24/22 . Last refill 10/24/22 . Requested Prescriptions Pending Prescriptions Disp Refills HYDROcodone-acetaminophen (NORCO) 5-325 mg per tablet 28 tablet 0 Sig: Take 1 tablet by mouth every 4 hours as needed for pain for up to 7 days. Please review and advise. Carlene Hussein MA documented in this encounter [facility] 10-24-2022 Note HNO ID: [id number] Author: Jossy Natarajan APRN.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 Service: ? Author Type: Nurse Practitioner Type: Progress Notes Filed: 10/24/2022 5:30 PM Note Text: CHIEF COMPLAINT: Ruddy Ruvalcaba is a 52 year old male who presents for ER follow up. I reviewed past medical, surgical, social, and family histories today and updated chart. Allergies, chronic medications, and supplements were also reviewed. PMH of uncontrolled HTN, total TKR, kidney stones. He was seen at [place] [facility] on 10/22/22 for left flank pain that was worsening. He has a history of kidney stones and this pain felt similar. He was taking Ibuprofen and Tylenol without any relief. He had labs and CT and completed. He was told he had no kidney stones but upon review in the chart it does state there are bilateral non obstructing kidney stones. He was given pain medication and discharged home. Today his pain has worsened and he has finished the pain medication he was given. He was also in the hospital in August for HTN urgency and left AMA on the last day because he was told he only had 1 more test to do . There is no discharge summary to review but there are inpatient notes including from cardiology and nephrology. Upon independent review, nephrology wanted to change some of his medications but it was never ordered or changed prior to him leaving. The Lisinopril was to be changed to Ramipril, HCTZ stopped and changed to Chlorthalidone, continue Metoprolol BID and Norvasc daily. He states he did not know anything about these changes. He was started on Hydralazine in the middle of September after discharge when he had called in and his BP was still uncontrolled and having headaches. He hasn't made an appointment with cardiology yet and didn't know he was to follow up with nephrology at discharge. The history is provided by the patient. No procurement buyer was used. PAST MEDICAL HISTORY Diagnosis Date Essential hypertension 10/01/2015 Kidney stones Reflex sympathetic dystrophy of other specified site S/P insertion of spinal cord stimulator 10/01/2015 PAST SURGICAL HISTORY Procedure Laterality Date ARTHRS KNE SURG W/MENISCECTOMY MED/LAT W/SHVG Right 10/09/2015 Right knee arthroscopy medial meniscectomy ARTHRS KNE SURG W/MENISCECTOMY MED/LAT W/SHVG Right 10/26/2016 ARTHRS KNEE DRLG OSTEOCHOND DISSECANS INT FIXJ Right 10/09/2015 PF and medial distal femoral chondroplasties COLONOSCOPY FLX DX W/COLLJ SPEC WHEN PFRMD 11/14/2018 Colonoscopy CYSTO W LITHOTRIPSY 2013 renal calculi x 2 HERNIA REPAIR W/MESH 2000's PAST SURGICAL HISTORY OF nose-reconstruction PAST SURGICAL HISTORY OF Left 80's hand - plate and screws PAST SURGICAL HISTORY OF Left 80's humerous fx PAST SURGICAL HISTORY OF Right 90's Knee scope x's2 PAST SURGICAL HISTORY OF Left scope x's 2 knee PAST SURGICAL HISTORY OF Left acl repair 3x's TOTAL KNEE REPLACEMENT Right 12/01/2021 Right total robotic knee replacement Social History Tobacco Use Smoking status: Every Day Packs/day: 0.50 Types: Cigars, Cigarettes Start date: 10/20/1988 Smokeless tobacco: Never Tobacco comments: 1 ppd since 2011 Vaping Use Vaping Use: Never used Substance Use Topics Alcohol use: No Drug use: No ALLERGIES No Known Allergies Family History Problem Relation Age of Onset other (negative) Father Current Outpatient Medications Medication Sig Dispense Refill cyclobenzaprine (FLEXERIL) 10 mg tablet hydrALAZINE (APRESOLINE) 10 mg tablet Take 1 tablet by mouth three times daily. 90 tablet 1 metoprolol succinate ER (TOPROL XL) 100 mg Take 1 tablet by mouth once daily. 30 tablet 2 ondansetron (ZOFRAN) 4 mg tablet Take 1 tablet by mouth every 12 hours as needed for nausea/vomiting. 8 tablet 0 hydroCHLOROthiazide 25 mg tablet Take 1 tablet by mouth once daily. 30 tablet 2 SUMAtriptan (IMITREX) 25 mg tablet Take 1 tablet by mouth as needed for migraine headache (see administration instructions). 6 tablet 0 lisinopril (ZESTRIL) 40 mg tablet Take 1 tablet by mouth once daily. 30 tablet 2 atorvastatin (LIPITOR) 20 mg tablet Take 1 tablet by mouth once daily. 90 tablet 3 amLODIPine (NORVASC) 10 mg tablet Take 1 tablet by mouth once daily. 30 tablet 2 ascorbic acid, vitamin C, (VITAMIN C) 500 mg tablet Take 1 tablet by mouth twice daily with meals for 27 doses. 27 tablet 0 aspirin, enteric coated (ASPIRIN, ENTERIC COATED) 81 mg EC tablet Take 1 tablet by mouth twice daily for 28 days. 56 tablet 0 tamsulosin (FLOMAX) 0.4 mg Take 1 capsule by mouth daily at bedtime. 14 capsule 0 HYDROcodone-acetaminophen (NORCO) 5-325 mg per tablet Take 1 tablet by mouth every 4 hours as needed for pain for up to 7 days. 28 tablet 0 Current Facility-Administered Medications Medication Dose Route Frequency Provider Last Rate Last Admin perflutren lipid microspheres 1.3 mL in NaCl (PF) 0.9% 10 mL injection (DEFINITY) INTRAVENOUS DIRECTED PRN Qu (more content not included)... [facility] 10-24-2022 Instructions Jossy Ntaarajan APRN.CNP - 10/24/2022 1:57 PM EDT Follow up with Kt Mortensen MD (Nephrology) Address: [address] [place] [address] Hours: Open ? Closes 4?PM Reason for Consultation: bilateral renal stones Cinthia Grey [facility] ([facility]) [address] [place] [address] Appointment:[phone] documented in this encounter [facility] 10-24-2022 History of Present illness Narrative CHIEF COMPLAINT: Ruddy Ruvalcaba is a 52 year old male who presents for ER follow up. I reviewed past medical, surgical, social, and family histories today and updated chart. Allergies, chronic medications, and supplements were also reviewed. PMH of uncontrolled HTN, total TKR, kidney stones. He was seen at [place] [facility] on 10/22/22 for left flank pain that was worsening. He has a history of kidney stones and this pain felt similar. He was taking Ibuprofen and Tylenol without any relief. He had labs and CT and completed. He was told he had no kidney stones but upon review in the chart it does state there are bilateral non obstructing kidney stones. He was given pain medication and discharged home. Today his pain has worsened and he has finished the pain medication he was given. He was also in the hospital in August for HTN urgency and left AMA on the last day because he was told he only had 1 more test to do . There is no discharge summary to review but there are inpatient notes including from cardiology and nephrology. Upon independent review, nephrology wanted to change some of his medications but it was never ordered or changed prior to him leaving. The Lisinopril was to be changed to Ramipril, HCTZ stopped and changed to Chlorthalidone, continue Metoprolol BID and Norvasc daily. He states he did not know anything about these changes. He was started on Hydralazine in the middle of September after discharge when he had called in and his BP was still uncontrolled and having headaches. He hasn't made an appointment with cardiology yet and didn't know he was to follow up with nephrology at discharge. The history is provided by the patient. No procurement buyer was used. PAST MEDICAL HISTORY Diagnosis Date Essential hypertension 10/01/2015 Kidney stones Reflex sympathetic dystrophy of other specified site S/P insertion of spinal cord stimulator 10/01/2015 PAST SURGICAL HISTORY Procedure Laterality Date ARTHRS KNE SURG W/MENISCECTOMY MED/LAT W/SHVG Right 10/09/2015 Right knee arthroscopy medial meniscectomy ARTHRS KNE SURG W/MENISCECTOMY MED/LAT W/SHVG Right 10/26/2016 ARTHRS KNEE DRLG OSTEOCHOND DISSECANS INT FIXJ Right 10/09/2015 PF and medial distal femoral chondroplasties COLONOSCOPY FLX DX W/COLLJ SPEC WHEN PFRMD 11/14/2018 Colonoscopy CYSTO W LITHOTRIPSY 2013 renal calculi x 2 HERNIA REPAIR W/MESH 2000's PAST SURGICAL HISTORY OF nose-reconstruction PAST SURGICAL HISTORY OF Left 80's hand - plate and screws PAST SURGICAL HISTORY OF Left 80's humerous fx PAST SURGICAL HISTORY OF Right 90's Knee scope x's2 PAST SURGICAL HISTORY OF Left scope x's 2 knee PAST SURGICAL HISTORY OF Left acl repair 3x's TOTAL KNEE REPLACEMENT Right 12/01/2021 Right total robotic knee replacement Social History Tobacco Use Smoking status: Every Day Packs/day: 0.50 Types: Cigars, Cigarettes Start date: 10/20/1988 Smokeless tobacco: Never Tobacco comments: 1 ppd since 2011 Vaping Use Vaping Use: Never used Substance Use Topics Alcohol use: No Drug use: No ALLERGIES No Known Allergies Family History Problem Relation Age of Onset other (negative) Father Current Outpatient Medications Medication Sig Dispense Refill cyclobenzaprine (FLEXERIL) 10 mg tablet hydrALAZINE (APRESOLINE) 10 mg tablet Take 1 tablet by mouth three times daily. 90 tablet 1 metoprolol succinate ER (TOPROL XL) 100 mg Take 1 tablet by mouth once daily. 30 tablet 2 ondansetron (ZOFRAN) 4 mg tablet Take 1 tablet by mouth every 12 hours as needed for nausea/vomiting. 8 tablet 0 hydroCHLOROthiazide 25 mg tablet Take 1 tablet by mouth once daily. 30 tablet 2 SUMAtriptan (IMITREX) 25 mg tablet Take 1 tablet by mouth as needed for migraine headache (see administration instructions). 6 tablet 0 lisinopril (ZESTRIL) 40 mg tablet Take 1 tablet by mouth once daily. 30 tablet 2 atorvastatin (LIPITOR) 20 mg tablet Take 1 tablet by mouth once daily. 90 tablet 3 amLODIPine (NORVASC) 10 mg tablet Take 1 tablet by mouth once daily. 30 tablet 2 ascorbic acid, vitamin C, (VITAMIN C) 500 mg tablet Take 1 tablet by mouth twice daily with meals for 27 doses. 27 tablet 0 aspirin, enteric coated (ASPIRIN, ENTERIC COATED) 81 mg EC tablet Take 1 tablet by mouth twice daily for 28 days. 56 tablet 0 tamsulosin (FLOMAX) 0.4 mg Take 1 capsule by mouth daily at bedtime. 14 capsule 0 HYDROcodone-acetaminophen (NORCO) 5-325 mg per tablet Take 1 tablet by mouth every 4 hours as needed for pain for up to 7 days. 28 tablet 0 Current Facility-Administered Medications Medication Dose Route Frequency Provider Last Rate Last Admin perflutren lipid microspheres 1.3 mL in NaCl (PF) 0.9% 10 mL injection (DEFINITY) INTRAVENOUS DIRECTED PRN Jossy Natarajan APRN.CNP sodium chloride 0.9 % (flush) 10 mL (BD POSIFLUSH) 10 mL INTRAVENOUS DIRECTED PRN Jossy Natarajan APRN.[place] Review of Systems Constitutional: Negative for appetite change, chills, diaphoresis, fatigue, fever and unexpected weight change. Respiratory: Negative. Cardiovascular: Negative. Gastrointestinal: Positive for abdominal pain (pain radiating into RLQ). Negative for constipation, diarrhea, nausea and vomiting. Genitourinary: Positive for flank pain. Negative for decreased urine volume, dysuria, frequency, hematuria, scrotal swelling, testicular pain and urgency. Musculoskeletal: Positive for back pain. Negative for arthralgias. Skin: Negative. Neurological: Negative. BP 148/74 Pulse 87 Temp 98.4 Resp 18 Ht 5' 10 (1.78m) Wt 250 lb (113.4kg) SpO2 96% BMI 35.87 kg/(m^2). Physical Exam Vitals and nursing note reviewed. Constitutional: General: He is in acute distress. Appearance: Normal appearance. He is obese. Comments: Appears uncomfortable while sitting HENT: Mouth/Throat: Mouth: Mucous membranes are moist. Eyes: Pupils: Pupils are equal, round, and reactive to light. Cardiovascular: Rate and Rhythm: Normal rate and regular rhythm. Heart sounds: Normal heart sounds, S1 normal and S2 normal. Pulmonary: Effort: Pulmonary effort is normal. Breath sounds: Normal breath sounds and air entry. Abdominal: General: Bowel sounds are normal. There is no distension. Palpations: Abdomen is soft. Tenderness: There is abdominal tenderness in the left lower quadrant. There is left CVA tenderness. There is no guarding or rebound. Negative signs include Galeas's sign and McBurney's sign. Musculoskeletal: Cervical back: Neck supple. Lumbar back: Tenderness present. No swelling, edema or bony tenderness. Normal range of motion. Negative right straight leg raise test and negative left straight leg raise test. Back: Skin: General: Skin is warm and dry. Findings: No rash. Neurological: Mental Status: He is alert and oriented to person, place, and time. Sensory: Sensation is intact. Motor: Motor function is intact. Deep Tendon Reflexes: Reflex Scores: Patellar reflexes are 2+ on the right side and 2+ on the left side. ASSESSMENT/PLAN: 1. Left flank pain - ICD9: 789.09, ICD10: R10.9 (primary diagnosis) - Reviewed ER records, labs, and CT - Pain has not improved - Short course of Flomax - Refill pain medication for acute pain, use sparingly - TAMSULOSIN 0.4 MG CAPSULE - HYDROCODONE 5 MG-ACETAMINOPHEN 325 MG TABLET - CONSULT TO UROLOGY 2. Bilateral renal stones - ICD9: 592.0, ICD10: N20.0 - HYDROCODONE 5 MG-ACETAMINOPHEN 325 MG TABLET - CONSULT TO UROLOGY 3. Uncontrolled hypertension - ICD9: 401.9, ICD10: I10 - Improving control - Continue current medications. Will clarify medications with Dr. Mortensen with nephrology. His Lisinopril was to be changed to Ramipril and and HCTZ changed to Chlorthalidone. Continue Metoprolol and Norvasc. - Referral to kidney medicine for resistant hypertension - Recommend home blood pressure monitoring, to bring results to next visit - Encouraged sodium restriction, DASH or Mediterranean diet - Recommend regular aerobic exercise - Discussed need for and benefit of weight loss. BMI 35.87 kg/(m^2) - Smoking cessation encouraged; discussed risks to health and quitting strategies. Patient is not ready to quit - Reviewed risks of hypertension and principles of treatment - Follow up in 4 weeks for hypertension visit - CONSULT TO NEPHROLOGY 4. History of kidney stones - ICD9: V13.01, ICD10: Z87.442 - TAMSULOSIN 0.4 MG CAPSULE PDMP website checked and validated. All prescriptions have been APPROPRIATELY filled. No suspicious activity was identified. 10/24/2022 by Jossy Natarajan APRN.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 New medication(s) prescribed today: Yes: Flomax and [place]. Discussed new medication dosage, usage, goals of therapy, and side effects. Patient has been apprised of any potential drug interactions to be aware of. Patient expresses understanding. Counseling completed in adopting health behaviors such as avoiding excessive alcohol use, avoid tobacco use, improve nutrition, and engage in physical activities. Copy of written care plan, clinical summary, treatment plan, new medications, goals, and self management requirements were given to patient. Jossy Natarajan APRN.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 documented in this encounter [facility] 10-10-2022 Note HNO ID: [id number] Author: Kati Robles RN Service: ? Author Type: Registered Nurse Type: Progress Notes Filed: 10/10/2022 1:34 PM Note Text: TRANSITION CARE MANAGEMENT (TCM) FOLLOW-UP NOTE Provider Action/FYI Patient identified by name and date of : NO Summary: PCC attempted to contact patient for TCM follow up. No answer, left voicemail requesting return call. [phone]. Kati Robles RN Truck Driver plan for next outreach: Will follow up 2 weeks Signature Kati Robles RN October 10, 2022 [facility] 10-10-2022 Note Patient Outreach (AG ACM) RUDDY RUVALCABA ([id number]) 1970 M Date Time Provider Department 10/10/22 KATI ROBLES [facility] During your visit today, we recorded the following information about you: Kati Robles RN 10/10/2022 1:34 PM Signed TRANSITION CARE MANAGEMENT (TCM) FOLLOW-UP NOTE Provider Action/FYI Patient identified by name and date of : NO Summary: PCC attempted to contact patient for TCM follow up. No answer, left voicemail requesting return call. [phone]. Kati Robles RN Truck Driver plan for next outreach: Will follow up 2 weeks Signature Kati Robles RN October 10, 2022 Allergies As of Date: 10/10/2022 (No Known Allergies) Date Reviewed: 08/31/2022 Reviewed by: Genie Ervin RN - Fully Assessed Reason for Visit: Transition Of Care [4074] Prescriptions as of 10/10/2022 - hydrALAZINE (APRESOLINE) 10 mg tablet Take 1 tablet by mouth three times daily. - metoprolol succinate ER (TOPROL XL) 100 mg Take 1 tablet by mouth once daily. - ondansetron (ZOFRAN) 4 mg tablet Take 1 tablet by mouth every 12 hours as needed for nausea/vomiting. - hydroCHLOROthiazide 25 mg tablet Take 1 tablet by mouth once daily. - tamsulosin (FLOMAX) 0.4 mg Take 1 capsule by mouth daily at bedtime. - amoxicillin-clavulanic acid (AUGMENTIN) 875-125 mg per tablet Take 1 tablet by mouth twice daily. - SUMAtriptan (IMITREX) 25 mg tablet Take 1 tablet by mouth as needed for migraine headache (see administration instructions). - lisinopril (ZESTRIL) 40 mg tablet Take 1 tablet by mouth once daily. - albuterol HFA (PROVENTIL HFA, VENTOLIN HFA) 90 mcg/actuation inhaler Inhale 2 Puffs as instructed every 4 hours as needed for wheezing/shortness of breath. - atorvastatin (LIPITOR) 20 mg tablet Take 1 tablet by mouth once daily. - amLODIPine (NORVASC) 10 mg tablet Take 1 tablet by mouth once daily. - ascorbic acid, vitamin C, (VITAMIN C) 500 mg tablet Take 1 tablet by mouth twice daily with meals for 27 doses. - aspirin, enteric coated (ASPIRIN, ENTERIC COATED) 81 mg EC tablet Take 1 tablet by mouth twice daily for 28 days. Facility-Administered Medications as of 10/10/2022 - perflutren lipid microspheres 1.3 mL in NaCl (PF) 0.9% 10 mL injection (DEFINITY) - sodium chloride 0.9 % (flush) 10 mL (BD POSIFLUSH) Problem List As Of Date 10/10/2022 Noted Resolved RSD (reflex sympathetic dystrophy) [G90.50] 11/10/2003 Uncontrolled hypertension [I10] 10/01/2015 Kidney stones [N20.0] 10/01/2015 10/20/2016 S/P insertion of spinal cord stimulator [Z96.89]10/01/2015 Complex tear of medial meniscus of right knee a*10/20/2015 Chronic postoperative pain [G89.28] 12/02/2015 Tear of lateral meniscus of right knee, current*10/17/2016 Rupture of anterior cruciate ligament of right *10/31/2016 Headaches [R51.9] 11/15/2021 Class 2 severe obesity due to excess calories w*11/15/2021 Post-traumatic osteoarthritis of right knee [M1*11/15/2021 Tobacco smoker, 1 pack of cigarettes or less pe*11/28/2021 S/P knee replacement [Z96.659] 12/29/2021 Nicotine use disorder, F17.2 [F17.200] 04/01/2022 Obesity, Class I, BMI 30-34.9 [E66.9] 08/24/2022 Hypertensive urgency [I16.0] 08/31/2022 Headache [R51.9] 08/31/2022 Mixed hyperlipidemia [E78.2] 09/01/2022 Encounter Status:Closed by KATI ROBLES on 10/10/22 [facility] 09-23-2022 Note HNO ID: [id number] Author: Kati Robles RN Service: ? Author Type: Registered Nurse Type: Progress Notes Filed: 09/23/2022 3:57 PM Note Text: TRANSITION CARE MANAGEMENT (TCM) FOLLOW-UP NOTE Provider Action/FYI Patient identified by name and date of : NO Summary: PCC attempted to contact patient for general follow up. No answer, left voicemail requesting return call. [phone]. Truck Driver plan for next outreach: Will follow up 2 weeks Signature Kati Robles RN September 23, 2022 [facility] 09-23-2022 History of Present illness Narrative TRANSITION CARE MANAGEMENT (TCM) FOLLOW-UP NOTE Provider Action/FYI Patient identified by name and date of : NO Summary: PCC attempted to contact patient for general follow up. No answer, left voicemail requesting return call. [phone]. Truck Driver plan for next outreach: Will follow up 2 weeks Signature Kati Robles RN September 23, 2022 documented in this encounter [facility] 09-23-2022 Note Patient Outreach ( AC) PEGRUDDY PHILLIPS ([id number]) 1970 M Date Time Provider Department 09/23/22 KATI ROBLES During your visit today, we recorded the following information about you: Kati Robles RN 09/23/2022 3:57 PM Signed TRANSITION CARE MANAGEMENT (TCM) FOLLOW-UP NOTE Provider Action/FYI Patient identified by name and date of : NO Summary: PCC attempted to contact patient for general follow up. No answer, left voicemail requesting return call. [phone]. Truck Driver plan for next outreach: Will follow up 2 weeks Signature Kati Robles RN September 23, 2022 Allergies As of Date: 09/23/2022 (No Known Allergies) Date Reviewed: 08/31/2022 Reviewed by: Genie Ervin RN - Fully Assessed Reason for Visit: Transition Of Care [4074] Cmt: TCM Follow up Prescriptions as of 09/23/2022 - metoprolol succinate ER (TOPROL XL) 100 mg Take 1 tablet by mouth once daily. - ondansetron (ZOFRAN) 4 mg tablet Take 1 tablet by mouth every 12 hours as needed for nausea/vomiting. - hydroCHLOROthiazide 25 mg tablet Take 1 tablet by mouth once daily. - tamsulosin (FLOMAX) 0.4 mg Take 1 capsule by mouth daily at bedtime. - amoxicillin-clavulanic acid (AUGMENTIN) 875-125 mg per tablet Take 1 tablet by mouth twice daily. - SUMAtriptan (IMITREX) 25 mg tablet Take 1 tablet by mouth as needed for migraine headache (see administration instructions). - lisinopril (ZESTRIL) 40 mg tablet Take 1 tablet by mouth once daily. - albuterol HFA (PROVENTIL HFA, VENTOLIN HFA) 90 mcg/actuation inhaler Inhale 2 Puffs as instructed every 4 hours as needed for wheezing/shortness of breath. - atorvastatin (LIPITOR) 20 mg tablet Take 1 tablet by mouth once daily. - amLODIPine (NORVASC) 10 mg tablet Take 1 tablet by mouth once daily. - ascorbic acid, vitamin C, (VITAMIN C) 500 mg tablet Take 1 tablet by mouth twice daily with meals for 27 doses. - aspirin, enteric coated (ASPIRIN, ENTERIC COATED) 81 mg EC tablet Take 1 tablet by mouth twice daily for 28 days. Facility-Administered Medications as of 09/23/2022 - perflutren lipid microspheres 1.3 mL in NaCl (PF) 0.9% 10 mL injection (DEFINITY) - sodium chloride 0.9 % (flush) 10 mL (BD POSIFLUSH) Problem List As Of Date 09/23/2022 Noted Resolved RSD (reflex sympathetic dystrophy) [G90.50] 11/10/2003 Uncontrolled hypertension [I10] 10/01/2015 Kidney stones [N20.0] 10/01/2015 10/20/2016 S/P insertion of spinal cord stimulator [Z96.89]10/01/2015 Complex tear of medial meniscus of right knee a*10/20/2015 Chronic postoperative pain [G89.28] 12/02/2015 Tear of lateral meniscus of right knee, current*10/17/2016 Rupture of anterior cruciate ligament of right *10/31/2016 Headaches [R51.9] 11/15/2021 Class 2 severe obesity due to excess calories w*11/15/2021 Post-traumatic osteoarthritis of right knee [M1*11/15/2021 Tobacco smoker, 1 pack of cigarettes or less pe*11/28/2021 S/P knee replacement [Z96.659] 12/29/2021 Nicotine use disorder, F17.2 [F17.200] 04/01/2022 Obesity, Class I, BMI 30-34.9 [E66.9] 08/24/2022 Hypertensive urgency [I16.0] 08/31/2022 Headache [R51.9] 08/31/2022 Mixed hyperlipidemia [E78.2] 09/01/2022 Encounter Status:Closed by KATI ROBLES on 09/23/22 [facility] 09-16-2022 Miscellaneous Notes No Show Documentation Ruddy Ruvalcaba no showed for an appointment on 09/16/22 with Jossy Natarajan APRN.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 at 3:20 pm. He was scheduled for a [facility] follow up for hypertension.. I called and left a message for the patient regarding his missed appointment. Resources discussed/offered to patient: to return our call and reschedule. No show determined to be fault of patient: Yes This is the patients second no show in the last 12 months. Patient was rescheduled for n/a. Letter mailed : Yes Is this the Third or Fourth No Show ? No Lachelle Sifuentes September 16, 2022 4:13 PM documented in this encounter [facility] 09-13-2022 Note HNO ID: [id number] Author: Kati Robles RN Service: ? Author Type: Registered Nurse Type: Progress Notes Filed: 09/13/2022 3:53 PM Note Text: PRIMARY CARE COORDINATION QUICK NOTE Provider Action/FYI PCC attempted to contact patient for care coordination intake. PCC left a voicemail requesting return call to [phone] Patient identified by name and date . Kati Robles RN [facility] 09-13-2022 Note HNO ID: [id number] Author: Kati Robles RN Service: ? Author Type: Registered Nurse Type: Progress Notes Filed: 09/13/2022 3:53 PM Note Text: TRANSITION CARE MANAGEMENT (TCM) FOLLOW-UP NOTE Provider Action/FYI Patient identified by name and date of : NO Summary: PCC attempted to contact patient for TCM follow up. No answer, left voicemail requesting return call. [phone]. Kati Robles RN Truck Driver plan for next outreach: Will follow up 1 week Signature Kati Robles RN September 13, 2022 [facility] 09-13-2022 History of Present illness Narrative PRIMARY CARE COORDINATION QUICK NOTE Provider Action/FYI PCC attempted to contact patient for care coordination intake. PCC left a voicemail requesting return call to [phone] Patient identified by name and date . Kati Robles RN TRANSITION CARE MANAGEMENT (TCM) FOLLOW-UP NOTE Provider Action/FYI Patient identified by name and date of : NO Summary: PCC attempted to contact patient for TCM follow up. No answer, left voicemail requesting return call. [phone]. Kati Robles RN Truck Driver plan for next outreach: Will follow up 1 week Signature Kati Robles RN September 13, 2022 documented in this encounter [facility] 09-13-2022 Note Patient Outreach (AG ACM) RUDDY RUVALCABA ([id number]) 1970 M Date Time Provider Department 09/13/22 KATI ROBLES During your visit today, we recorded the following information about you: Kati Robles RN 09/13/2022 3:53 PM Signed TRANSITION CARE MANAGEMENT (TCM) FOLLOW-UP NOTE Provider Action/HORACIOI Patient identified by name and date of : NO Summary: PCC attempted to contact patient for TCM follow up. No answer, left voicemail requesting return call. [phone]. Kati Robles RN Truck Driver plan for next outreach: Will follow up 1 week Signature Kati Robles RN September 13, 2022 Kati Robles RN 09/13/2022 3:53 PM Signed PRIMARY CARE COORDINATION QUICK NOTE Provider Action/FYI PCC attempted to contact patient for care coordination intake. PCC left a voicemail requesting return call to [phone] Patient identified by name and date . Kati Robles RN Allergies As of Date: 09/13/2022 (No Known Allergies) Date Reviewed: 08/31/2022 Reviewed by: Genie Ervin RN - Fully Assessed Reason for Visit: Transition Of Care [4074] Cmt: TCM Follow up [employer]- Other [0711] Cmt: Primary Care Coordination Intake Attempt Prescriptions as of 09/13/2022 - metoprolol succinate ER (TOPROL XL) 100 mg Take 1 tablet by mouth once daily. - ondansetron (ZOFRAN) 4 mg tablet Take 1 tablet by mouth every 12 hours as needed for nausea/vomiting. - hydroCHLOROthiazide 25 mg tablet Take 1 tablet by mouth once daily. - tamsulosin (FLOMAX) 0.4 mg Take 1 capsule by mouth daily at bedtime. - amoxicillin-clavulanic acid (AUGMENTIN) 875-125 mg per tablet Take 1 tablet by mouth twice daily. - SUMAtriptan (IMITREX) 25 mg tablet Take 1 tablet by mouth as needed for migraine headache (see administration instructions). - lisinopril (ZESTRIL) 40 mg tablet Take 1 tablet by mouth once daily. - albuterol HFA (PROVENTIL HFA, VENTOLIN HFA) 90 mcg/actuation inhaler Inhale 2 Puffs as instructed every 4 hours as needed for wheezing/shortness of breath. - atorvastatin (LIPITOR) 20 mg tablet Take 1 tablet by mouth once daily. - amLODIPine (NORVASC) 10 mg tablet Take 1 tablet by mouth once daily. - ascorbic acid, vitamin C, (VITAMIN C) 500 mg tablet Take 1 tablet by mouth twice daily with meals for 27 doses. - aspirin, enteric coated (ASPIRIN, ENTERIC COATED) 81 mg EC tablet Take 1 tablet by mouth twice daily for 28 days. Facility-Administered Medications as of 09/13/2022 - perflutren lipid microspheres 1.3 mL in NaCl (PF) 0.9% 10 mL injection (DEFINITY) - sodium chloride 0.9 % (flush) 10 mL (BD POSIFLUSH) Problem List As Of Date 09/13/2022 Noted Resolved RSD (reflex sympathetic dystrophy) [G90.50] 11/10/2003 Uncontrolled hypertension [I10] 10/01/2015 Kidney stones [N20.0] 10/01/2015 10/20/2016 S/P insertion of spinal cord stimulator [Z96.89]10/01/2015 Complex tear of medial meniscus of right knee a*10/20/2015 Chronic postoperative pain [G89.28] 12/02/2015 Tear of lateral meniscus of right knee, current*10/17/2016 Rupture of anterior cruciate ligament of right *10/31/2016 Headaches [R51.9] 11/15/2021 Class 2 severe obesity due to excess calories w*11/15/2021 Post-traumatic osteoarthritis of right knee [M1*11/15/2021 Tobacco smoker, 1 pack of cigarettes or less pe*11/28/2021 S/P knee replacement [Z96.659] 12/29/2021 Nicotine use disorder, F17.2 [F17.200] 04/01/2022 Obesity, Class I, BMI 30-34.9 [E66.9] 08/24/2022 Hypertensive urgency [I16.0] 08/31/2022 Headache [R51.9] 08/31/2022 Mixed hyperlipidemia [E78.2] 09/01/2022 Encounter Status:Closed by KATI ROBLES on 09/13/22 [facility] 09-06-2022 Miscellaneous Notes All information left on patients vm. (Ok per lifetime consent). Yuly Polanco MA US showed a small cyst to his lower left kidney but otherwise was WNL. Fatty liver present. Patient called he was admitted to [facility], he had a US done and would like to know results. Esme Cox MA documented in this encounter [facility] 09-02-2022 Note Patient Outreach (AG ACM) RUDDY RUVALCABA ([id number]) 1970 M Date Time Provider Department 09/02/22 KATI ROBLES During your visit today, we recorded the following information about you: Kati Robles RN 09/02/2022 1:54 PM Signed TRANSITIONAL CARE MANAGEMENT (TCM) COMMUNITY MONITORING PROGRAM - [place] Provider Action/FYI: SUMMARY: Pt discharged from [place] on 09/01/22 (AMA). Admitted for: HTN urgency Contact made with patient: No - next outreach attempt will be on next day Outreach ended Kati Robles RN 09/02/2022 1:54 PM Signed TCM Home Visit Referral Source of Stratification: [facility] Admission Status: Discharged Readmission Risk Score: 12 NENITA Score: 1 Patient meets program referral criteria: No Patient does not qualify for High Risk TCM Home Visit program due to: Discharged home, does not meet program criteria Kati Robles RN September 02, 2022 8:34 AM Kati Robles RN 09/02/2022 1:54 PM Signed TRANSITIONAL CARE MANAGEMENT (TCM) COMMUNITY MONITORING PROGRAM - [place] Provider Action/FYI: Patient reports he does have a BP cuff at home. PCC reviewed heart health low sodium diet with patient as well as exercise. Patient reports he is very active. PCC discussed BP monitor and recording at home. PCC encouraged patient to bring BP log to TCM appointment. Patient agreed. SUMMARY: Pt discharged from [place] on 09/01/22 (AMA). Admitted for: HTN urgency Contact made with patient: Yes Hi my name is .Sixto Robles RN and I am calling from the [facility] on behalf of your PCP, Jossy Natarajan APRN.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 I understand you were recently in the hospital so I am calling to check in with you to ensure you are feeling well now that you?re home. Do you mind if I ask you a few questions related to your hospital stay and well-being Yes Contact with patient post discharge, spoke to patient. Patient identified by name and . Do you feel your health is BETTER, WORSE, or the SAME since leaving the hospital? Better ACTION TAKEN: Patient indicated symptoms are better or same, no action required. Continue outreach. MEDICATIONS: Many patients have questions or concerns about their medications once they are home. Do you have any questions about taking your medications or which medication you should be on? No Do you need any medication refills at this time, including any of the medications you might take only when needed? No ACTION TAKEN: No action required For RNs or Pharmacy completing outreach ONLY, was a medication review completed? Yes SOCIAL: We would like to make sure you have what you need so that your basics needs are met - including your personal safety, food, housing and medications. Would you like to speak with a social work medical director/head team physician to help give you support for any of these needs? No It can be normal to feel anxious or down during a time like this. Would you like to talk to a mental health professional about how you have been feeling? No ACTION TAKEN: No action taken DISCHARGE INTRUCTIONS: Your discharge instructions / After Visit Summary (AVS) are important in guiding you through the recovery process. Do you have any questions related to your discharge instructions? No Do you have all the necessary equipment and supplies at home? Yes ACTION TAKEN: No action required Thank you for talking with me today. I would like to help you schedule a hospital follow-up virtual or telephone visit with your PCP. This is a great way for you to connect with your provider to ensure you have safely transitioned home. If you are agreeable, I will send your request to a alum plant operator who will contact and assist you with that appointment. This will give you an opportunity to ask any questions or address any concerns you may have with your PCP. Inform the patient that if they have any questions or concerns prior to that appointment, to call their PCP's office right away. ACTION TAKEN: No action required, patient already has an appointment scheduled. Your doctor would like us to remind you of the recommendations regarding the coronavirus (Covid19) outbreak: Avoid public places as much as possible. Avoid close contact (within 6 feet) with others you don't live with, especially if they are sick. Stay home if you are sick. Wash your hands regularly for at least 20 seconds with soap and water. Wear a cloth mask in public places to help reduce community spread. Do not go to your Doctor's office unless instructed to do so. For any non-emergency symptoms, call your Doctor's office to get instructions on how to manage (we might recommend a telephone or virtual visit). For emergency symptoms, proceed to Emergency Department as usual but inform them of cough and fever symptoms MARYELLEN if present (or call on the way if possible). Allergies As o (more content not included)... [facility] 09-02-2022 Note HNO ID: [id number] Author: Kati Robles RN Service: ? Author Type: Registered Nurse Type: Progress Notes Filed: 09/02/2022 1:54 PM Note Text: TRANSITIONAL CARE MANAGEMENT (TCM) COMMUNITY MONITORING PROGRAM - [place] Provider Action/FYI: Patient reports he does have a BP cuff at home. PCC reviewed heart health low sodium diet with patient as well as exercise. Patient reports he is very active. PCC discussed BP monitor and recording at home. PCC encouraged patient to bring BP log to TCM appointment. Patient agreed. SUMMARY: Pt discharged from [place] on 09/01/22 (AMA). Admitted for: HTN urgency Contact made with patient: Yes Hi my name is .Sixto Robles RN and I am calling from the [facility] on behalf of your PCP, Jossy Natarajan APRN.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 I understand you were recently in the hospital so I am calling to check in with you to ensure you are feeling well now that you?re home. Do you mind if I ask you a few questions related to your hospital stay and well-being Yes Contact with patient post discharge, spoke to patient. Patient identified by name and . Do you feel your health is BETTER, WORSE, or the SAME since leaving the hospital? Better ACTION TAKEN: Patient indicated symptoms are better or same, no action required. Continue outreach. MEDICATIONS: Many patients have questions or concerns about their medications once they are home. Do you have any questions about taking your medications or which medication you should be on? No Do you need any medication refills at this time, including any of the medications you might take only when needed? No ACTION TAKEN: No action required For RNs or Pharmacy completing outreach ONLY, was a medication review completed? Yes SOCIAL: We would like to make sure you have what you need so that your basics needs are met - including your personal safety, food, housing and medications. Would you like to speak with a social work medical director/head team physician to help give you support for any of these needs? No It can be normal to feel anxious or down during a time like this. Would you like to talk to a mental health professional about how you have been feeling? No ACTION TAKEN: No action taken DISCHARGE INTRUCTIONS: Your discharge instructions / After Visit Summary (AVS) are important in guiding you through the recovery process. Do you have any questions related to your discharge instructions? No Do you have all the necessary equipment and supplies at home? Yes ACTION TAKEN: No action required Thank you for talking with me today. I would like to help you schedule a hospital follow-up virtual or telephone visit with your PCP. This is a great way for you to connect with your provider to ensure you have safely transitioned home. If you are agreeable, I will send your request to a alum plant operator who will contact and assist you with that appointment. This will give you an opportunity to ask any questions or address any concerns you may have with your PCP. Inform the patient that if they have any questions or concerns prior to that appointment, to call their PCP's office right away. ACTION TAKEN: No action required, patient already has an appointment scheduled. Your doctor would like us to remind you of the recommendations regarding the coronavirus (Covid19) outbreak: Avoid public places as much as possible. Avoid close contact (within 6 feet) with others you don't live with, especially if they are sick. Stay home if you are sick. Wash your hands regularly for at least 20 seconds with soap and water. Wear a cloth mask in public places to help reduce community spread. Do not go to your Doctor's office unless instructed to do so. For any non-emergency symptoms, call your Doctor's office to get instructions on how to manage (we might recommend a telephone or virtual visit). For emergency symptoms, proceed to Emergency Department as usual but inform them of cough and fever symptoms MARYELLEN if present (or call on the way if possible). [facility] 09-02-2022 Note HNO ID: [id number] Author: Kati Robles RN Service: ? Author Type: Registered Nurse Type: Progress Notes Filed: 09/02/2022 1:54 PM Note Text: TCM Home Visit Referral Source of Stratification: [facility] Hospital Admission Status: Discharged Readmission Risk Score: 12 NENITA Score: 1 Patient meets program referral criteria: No Patient does not qualify for High Risk TCM Home Visit program due to: Discharged home, does not meet program criteria Kati Robles RN September 02, 2022 8:34 AM [facility] 09-02-2022 Note HNO ID: [id number] Author: Kati Robles RN Service: ? Author Type: Registered Nurse Type: Progress Notes Filed: 09/02/2022 1:54 PM Note Text: TRANSITIONAL CARE MANAGEMENT (TCM) COMMUNITY MONITORING PROGRAM - [place] Provider Action/FYI: SUMMARY: Pt discharged from [place] on 09/01/22 (AMA). Admitted for: HTN urgency Contact made with patient: No - next outreach attempt will be on next business day Outreach ended [facility] 09-02-2022 History of Present illness Narrative TRANSITIONAL CARE MANAGEMENT (TCM) COMMUNITY MONITORING PROGRAM - [place] Provider Action/FYI: Patient reports he does have a BP cuff at home. PCC reviewed heart health low sodium diet with patient as well as exercise. Patient reports he is very active. PCC discussed BP monitor and recording at home. PCC encouraged patient to bring BP log to TCM appointment. Patient agreed. SUMMARY: Pt discharged from [place] on 09/01/22 (AMA). Admitted for: HTN urgency Contact made with patient: Yes Hi my name is .Sixto Robles RN and I am calling from the [facility] on behalf of your PCP, Jossy Natarajan APRN.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 I understand you were recently in the hospital so I am calling to check in with you to ensure you are feeling well now that you re home. Do you mind if I ask you a few questions related to your hospital stay and well-being Yes Contact with patient post discharge, spoke to patient. Patient identified by name and . Do you feel your health is BETTER, WORSE, or the SAME since leaving the hospital? Better ACTION TAKEN: Patient indicated symptoms are better or same, no action required. Continue outreach. MEDICATIONS: Many patients have questions or concerns about their medications once they are home. Do you have any questions about taking your medications or which medication you should be on? No Do you need any medication refills at this time, including any of the medications you might take only when needed? No ACTION TAKEN: No action required For RNs or Pharmacy completing outreach ONLY, was a medication review completed? Yes SOCIAL: We would like to make sure you have what you need so that your basics needs are met - including your personal safety, food, housing and medications. Would you like to speak with a social work medical director/head team physician to help give you support for any of these needs? No It can be normal to feel anxious or down during a time like this. Would you like to talk to a mental health professional about how you have been feeling? No ACTION TAKEN: No action taken DISCHARGE INTRUCTIONS: Your discharge instructions / After Visit Summary (AVS) are important in guiding you through the recovery process. Do you have any questions related to your discharge instructions? No Do you have all the necessary equipment and supplies at home? Yes ACTION TAKEN: No action required Thank you for talking with me today. I would like to help you schedule a hospital follow-up virtual or telephone visit with your PCP. This is a great way for you to connect with your provider to ensure you have safely transitioned home. If you are agreeable, I will send your request to a alum plant operator who will contact and assist you with that appointment. This will give you an opportunity to ask any questions or address any concerns you may have with your PCP. Inform the patient that if they have any questions or concerns prior to that appointment, to call their PCP's office right away. ACTION TAKEN: No action required, patient already has an appointment scheduled. Your doctor would like us to remind you of the recommendations regarding the coronavirus (Covid19) outbreak: Avoid public places as much as possible. Avoid close contact (within 6 feet) with others you don't live with, especially if they are sick. Stay home if you are sick. Wash your hands regularly for at least 20 seconds with soap and water. Wear a cloth mask in public places to help reduce community spread. Do not go to your Doctor's office unless instructed to do so. For any non-emergency symptoms, call your Doctor's office to get instructions on how to manage (we might recommend a telephone or virtual visit). For emergency symptoms, proceed to Emergency Department as usual but inform them of cough and fever symptoms MARYELLEN if present (or call on the way if possible). TCM Home Visit Referral Source of Stratification: [facility] Hospital Admission Status: Discharged Readmission Risk Score: 12 NENITA Score: 1 Patient meets program referral criteria: No Patient does not qualify for High Risk TCM Home Visit program due to: Discharged home, does not meet program criteria Kati Robles RN September 02, 2022 8:34 AM TRANSITIONAL CARE MANAGEMENT (TCM) COMMUNITY MONITORING PROGRAM - [place] Provider Action/FYI: SUMMARY: Pt discharged from [place] on 09/01/22 (AMA). Admitted for: HTN urgency Contact made with patient: No - next outreach attempt will be on next day Outreach ended documented in this encounter [facility] 09-01-2022 Note HNO ID: [id number] Author: Pedro Lobato MD Service: Hospital Medicine Author Type: Physician Type: Progress Notes Filed: 09/01/2022 7:48 PM Note Text: Called to bedside as patient was requesting to leave AMA, citing frustration with care in ICU and lack of significant change in blood pressure despite medications. I explained that we are giving time to allow us to titrate his medications, and making adjustments in the morning. I explained the risks of uncontrolled blood pressure, including worsening headache, heart attack, stroke, hemorrhage, and renal failure. He reports that he understood the risks, including that untreated HTN can lead to conditions that lead to . He was agreeable to follow up with his PCP. BP on discharge >188/89, not at goal. I offered to keep him in the hospital for ongoing monitoring, but he declined. IV removed and patient discharging AMA. [facility] 09-01-2022 Note HNO ID: [id number] Author: Pedro Lobato MD Service: Hospital Medicine Author Type: Physician Type: Progress Notes Filed: 09/01/2022 7:09 PM Note Text: Blood pressure persistently elevated, currently 188/89. Will await results of dose of metoprolol and add prn hydralazine. [facility] 09-01-2022 Note HNO ID: [id number] Author: Philomena Douglas MD Service: Hospital Medicine Author Type: Physician Type: Progress Notes Filed: 09/01/2022 8:33 PM Note Text: Patient seen and examined. Chart reviewed Agree with transfer to medical floor Continue current management. Patient admitted with a diagnosis of accelerated hypertension and uncontrolled headache. Noted some improvement with Toradol however still having headache about 4/10. Will give Fioricet x1 dose for headache and reassess later. If Fioricet is effective will d/c all NSAIDS because NSAIDs likely contributed to the development of his accelerated hypertension as all other risk factors that he had were chronic until he started taking NSAIDS daily before his TOTH before hIs BP became uncontrolled. Also NSAIDs may reduce the effects of hypertensive medications apart from calcium channel blockers. Continue current mgt Philomena Douglas MD [facility] 09-01-2022 Note HNO ID: [id number] Author: Kia Anderson RN Service: Care Management Author Type: Registered Nurse Type: Care Mgt Initial Assessment Filed: 09/01/2022 12:16 PM Note Text: CARE MANAGEMENT: ASSESSMENT AND DISCHARGE PLAN SERVICE DATE: September 01, 2022 SERVICE TIME: 12:00 PCP: Jossy Natarajan APRN.CNP Primary Contact: Extended Emergency Contact Information Primary Emergency Contact: Balbir Ruvalcaba Mobile Relation: Spouse Admission Status: Inpatient Insurance Provider: [facility] PLUS Discharge Planning requested by: Per Department Practice Potential Transition Plans No Services Indicated Advance Directives Current Advance Directive: None Renewable Energy Technician Attempted to Assist with AD Completion: Yes Action: Patient Unwilling;Education Provided Current Living Arrangements and Support Lives with: Spouse/significant other Type of Residence: Private Residence (House) Support: Spouse/significant other How do you manage to accomplish the following: Independent: Ambulation;Bathe/Shower;Dress;Meal s/Meal Prep;Going to the bathroom;Medication Management;Transportation to appointments/community Current Services/Equipment Current Post-Acute Service(s): None, DME Current DME Type: None Discharge Planning Patient Goal(s): Be able to go home, General wellness Fluker of Choice Explained: Fluker of Choice Given: No Reason Not Given: No placements necessary Are you interested in bedside delivery of your medications? No Discharge Planning Participant(s): Patient Patient/Family Comments: Return home with spouse Caregiver Assessment: Caregiver is ready, willing and able to meet the patient's needs as recommended by the inter-professional team: No Caregiver needed Transport at Discharge: Transportation Arrangements: Car Needs Prior to Discharge: Needs Prior to Discharge: None Post-Acute Discharge Plan: EMR reviewed, admitted to ICU for HTN urgency. Pt from home with spouse, [employer]. Discharge to return home with spouse, no needs. SIGNATURE: Kia Anderson RN PATIENT NAME: Ruddy Ruvalcaba DATE: September 01, 2022 TIME: 12:13 PM CONTACT #: [id number] [facility] 09-01-2022 Note HNO ID: [id number] Author: Nasra Medina MD Service: Critical Care Author Type: Physician Type: Progress Notes Filed: 09/01/2022 1:56 PM Note Text: ICU DAILY PROGRESS NOTE Admit Date: 08/31/2022 SERVICE DATE: 09/01/2022 Reason for Follow Up: Hypertensive urgency Assessment/Plan ASSESSMENT: Principal Problem: Hypertensive urgency POA: Yes Active Problems: Uncontrolled hypertension POA: Yes Nicotine use disorder, F17.2 POA: Yes Obesity, Class I, BMI 30-34.9 POA: Yes Headache POA: Yes,? Etiology Mixed hyperlipidemia POA: Unknown History of snoring and suspected sleep apnea, POA: Yes History of reflex sympathetic dystrophy, s/p spinal cord stimulator 2015 Plan: Blood pressure improved, off nicardipine On amlodipine, metoprolol, ramipril, nephrology and cardiology following Denies any craving for cigarette, will add as needed nicotine patch Needs to follow-up with primary physician for sleep study Discussed with neurology suggested MRA of the head with and without contrast if compatible with his stimulator otherwise CTA brain Add heparin subcu for DVT prophylaxis No objection to transfer out of ICU ICU Checklist Last Documented/Reviewed time: 08/31/2022 8:23 PM ------- A= Assess, Prevent, Manage Pain Pain adequately controlled?: Yes C= Choice of Sedation and Analgesia RASS at Goal?: (Comment: na) B= Both Spontaneous Awakening and Breathing Trials Ventilator: None D= Delirium: Assess, Prevent and Manage ICU Delirium Status: CAM Negative - no action required Sleep adequate?: Yes Restraint Status: None E= Early Mobility/Excercise ICU Mobility: ICU Mobility-Pt Has Been Out of Bed: Yes F= Family Engagement and Empowerment ICU plan of care visit at bedside in last 24 hours: Yes, Provider, RN, Patient/ designee ICU Disposition: ICU Disposition- Is Patient Clinically Ready to Transfer to [facility] or SDU?: No Discharge Planning: To be determined Prevention: Line Status: None Tapia Status: None Pressure Injury Status: None GI/Stress Ulcer Prophylaxis: None - not required Nutrition is at Goal: Yes VTE Prophylaxis: Chemoprophylaxis: Heparin SQ Mechanical Prophylaxis: Knee high SCD Patient/Family Updated: Discussed with patient Plan of care discussed with: Provider, RN, Patient and ICU Team. Subjective HPI: 52-year-old male with history of reflex sympathetic dystrophy/s/p insertion of spinal cord stimulator 2016, tobacco abuse, kidney stones, uncontrolled HTN with headaches for the last few weeks, recently treated for sinus infection, presented to [facility] with systolic blood pressure over 200, was placed on nicardipine drip and transferred to [place] ICU 09/01: Off nicardipine drip, decreased headaches, denies fever or chills, no chest pain or palpitation, had nausea vomiting few days ago none today, + dizziness, some short of breath, no cough or wheezing, history of snoring and suspected sleep apnea has not done sleep study yet Objective Physical Exam BP 160/78 Pulse 67 Temp (Src) 97.6 (Temporal) Resp 32 Ht 5' 10 (1.78m) Wt 247 lb 5.7 oz (112.2kg) SpO2 96% BMI 35.49 kg/(m2). General : Well nourished, in no distress Eyes: Pupils equal, round, No scleral icterus ENT: Trachea midline, no JVD, no sinus tenderness Heart: RRR, no murmurs Lungs: Decreased sounds to auscultation bilaterally, no wheezes rales, or rhonchi. Abdomen: Soft and nontender, no guarding Musculoskeletal: no bony or joint deformity, no edema Neuro: Alert and appropriate, following commands Skin: No acute rash or skin change, skin is normal to palpation DATA: LABS: Recent Labs 09/01/22 0328 08/31/22 1500 WBC 13.53* 10.40 HB 14.0 14.2 HCT 42.0 42.2 PLT 298 309 NA 137 137 K 3.8 3.8 CHLOR 103 101 CO2 23 24 BUN 14 16 CREAT 0.99 1.07 GLUC 99 118* CA 9.1 9.7 MG 2.2 -- P 3.3 -- Recent Labs 09/01/22 0328 08/31/22 1500 TPROT 7.0 7.5 ALB 4.2 4.6 ALT 20 22 AST 15 18 ALKPHOS 79 86 TBILI 0.3 0.3 CULTURES: CXR : CT brain: No acute disease CT Chest: Negative CT Abdomen: No acute changes ECHO: Portions of this note including HPI, ROS, impression/plan, and examination may have been copied forward as to provide important historical information essential in contributing to medical decision making. Documentation has been reviewed and edited as necessary to support clinical decision making for today's visit and to reflect my own independent evaluation of this patient on 09/01/2022 Nasra Medina MD 1:41 PM 09/01/2022 [facility] 09-01-2022 Note HNO ID: [id number] Author: Marguerite Hall MD Service: eHospital Author Type: Anesthesiologist Type: Progress Notes Filed: 09/01/2022 12:10 AM Note Text: eHospital Provider Note Call Initiation By: eHospital Primary Reason for Call: Admission to ICU;Cardiac / Hemodynamic status;Neurological Status (52 yom with poorly controlled HTN, presented to ED with headache and markedly elevated BP) Objective Data:: Multiple visits to ED adn PCP over last 2 weeks for similar complaints. BP meds being uptitrated. CT scan of head, chest and abdomen n the ED--> no acute findings. BP refractory to multiple boluses of medications SBP > 230mmHg. Heme adn Chemistries are WNL Assessment: #1. Hypertensive Urgency #2. Headache #3. Morbid obesity Intervention(s): Review admission plan of care;Consultation with bedside physician/RN;Laboratory tests;Radiology / Imaging Plan/Intervention (other): #1. Nicardipine inf for careful BP control. target MAP approx 20% below baseline given expected shift in autoregulatory curve 2. Reume home meds and uptitrate slowly #3. Cardiology and renal consults 4. consider renal artery ultrasound scan. #5. Dieticican consult for education on recommended modifications SIGNATURE: Marguerite Hall MD PATIENT NAME: Ruddy Ruvalcaba DATE: September 01 2022 TIME: 12:02 AM [facility] 08-24-2022 Miscellaneous Notes Patient did not say anything about a headache. He was just informing you of the BP reading when I called to try and make him an appointment. Flory Vidal Is his headache any better? Called Patient to make a nurse visit for BP check. Patient works in [place] and will not be in the area. Patient forgot Jossy not in office today and per their discussion yesterday, he was supposed to call with BP reading. Patient will continue to monitor BP and let Jossy know. If BP is too high, patient stated he will come right to [facility]. Flory Vidal Please help assist with scheduling nurse visit. Thanks. Yuly Polanco MA Please call pt - he messaged us that his BP at home is elevated. I would like for him to come in for [place] so we can check it here Cari Mensah DO documented in this encounter [facility] 08-23-2022 Note HNO ID: [id number] Author: Jossy Natarajan APRN.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 Service: ? Author Type: Nurse Practitioner Type: Progress Notes Filed: 08/24/2022 8:50 PM Note Text: [place] [id number] Visit Date: 08/23/2022 Patient Name: Ruddy Ruvalcaba Date of : 1970 Chief Complaint: ER Follow Up Ruddy Ruvalcaba is a 52 year old male here today for a follow up to a recent emergency room (ER) visit. Emergency Room Location: [facility] Date of Emergency Room Visit: 08/18/22 Reason for Emergency Room Visit: Headache HPI: Patient presented to [facility] with his spouse on 08/18/22 for a severe headache and elevated blood pressure. He was experiencing blurred vision. CT brain was obtained and negative for any mass effect, bleed, or ischemia. CXR was negative (aorta calcified and tortuous). Labs were unremarkable. These findings were found via Care Everywhere. His states he was given the migraine cocktail while there but it did not help his headache at all. She remembers he was given something for his BP in his IV but thought it was called HCTZ. The patient states he had a horrible experience at the hospital and after he had his testing completed he waited 4 hours and never saw the doctor again so he left. His home BP readings continue to remain elevated 170-200's/90-100's. He rates his headache today a 22/10 and continues to having blurry vision. He denies any slurred speech, weakness in his extremities, N/T, or difficulty walking. He does not follow with cardiology or nephrology. He is a heavy smoker and has been for years. His states he does not watch his diet at all and always adds salt to his food even before tasting it. He does drink a small amount of caffeine. He denies any regular alcohol use. He does not exercise on a regular basis, continues to have issues with his recent right knee replacement. STOP BANG Questionnaire 1. Snoring Do you snore loudly (louder than talking or loud enough to be heard through closed doors)? YES 2. Tired Do you often feel tired, fatigued, or sleepy during daytime? YES 3. Observed Has anyone observed you stop breathing during your sleep? YES 4. Blood Pressure Do you have or are you being treated for high blood pressure? YES 5. BMI BMI more than 35 kg/m2? NO 6. Age Age over 50 yr old? YES 7. Neck circumference Neck circumference greater than 40 cm? YES 8. Gender Gender male? YES * Neck circumference is measured by staff High risk of LAURYN: answering yes to three or more items Low risk of LAURYN: answering yes to less than three items Vitals BP 182/102 Pulse 78 Temp 97.7 Resp 18 Ht 5' 10 (1.78m) Wt 243 lb (110.2kg) SpO2 96% BMI 34.87 kg/(m2). 08/23/22 0936 08/23/22 1050 08/23/22 1051 BP: 180/104 170/100 182/102 Pulse: 78 Resp: 18 Temp: 36.5 ?C (97.7 ?F) SpO2: 96% Weight: 110.2 kg (243 lb) Height: 177.8 cm (5' 10 ) PAST MEDICAL HISTORY Diagnosis Date Essential hypertension 10/01/2015 Kidney stones Reflex sympathetic dystrophy of other specified site S/P insertion of spinal cord stimulator 10/01/2015 PAST SURGICAL HISTORY Procedure Laterality Date ARTHRS KNE SURG W/MENISCECTOMY MED/LAT W/SHVG Right 10/09/2015 Right knee arthroscopy medial meniscectomy ARTHRS KNE SURG W/MENISCECTOMY MED/LAT W/SHVG Right 10/26/2016 ARTHRS KNEE DRLG OSTEOCHOND DISSECANS INT FIXJ Right 10/09/2015 PF and medial distal femoral chondroplasties COLONOSCOPY FLX DX W/COLLJ SPEC WHEN PFRMD 11/14/2018 Colonoscopy CYSTO W LITHOTRIPSY 2013 renal calculi x 2 HERNIA REPAIR W/MESH 2000's PAST SURGICAL HISTORY OF nose-reconstruction PAST SURGICAL HISTORY OF Left 80's hand - plate and screws PAST SURGICAL HISTORY OF Left 80's humerous fx PAST SURGICAL HISTORY OF Right 90's Knee scope x's2 PAST SURGICAL HISTORY OF Left scope x's 2 knee PAST SURGICAL HISTORY OF Left acl repair 3x's TOTAL KNEE REPLACEMENT Right 12/01/2021 Right total robotic knee replacement FAMILY HISTORY Problem Relation Age of Onset other (negative) Father Social History Tobacco Use Smoking status: Every Day Packs/day: 0.50 Types: Cigars, Cigarettes Start date: 10/20/1988 Smokeless tobacco: Never Tobacco comments: 1 ppd since 2011 Vaping Use Vaping Use: Never used Substance Use Topics Alcohol use: No Drug use: No Current Meds amoxicillin-clavulanic acid (AUGMENTIN) 875-125 mg per tabletTake 1 tablet by mouth twice daily.Disp: 20 tabletRfl: 0 SUMAtriptan (IMITREX) 25 mg tabletTake 1 tablet by mouth as needed for migraine headache (see administration instructions).Disp: 6 tabletRfl: 0 lisinopril (ZESTRIL) 40 mg tabletTake 1 tablet by mouth once daily.Disp: 30 tabletRfl: 2 albuterol HFA (PROVENTIL HFA, VENTOLIN HFA) 90 mcg/actuation inhalerInhale 2 Puffs as instru (more content not included)... [facility] 08-23-2022 Nurse Note Patient has been identified by name and date of : Yes Ruddy is here for an injection of Clonidine Dose: 01 mg Route: Oral Given without incident. Non Destructive Testing Specialist: [employer] Lot #: [id number] [facility] #: [id number] Expiration Date: 03/11 Jossy Natarajan present in clinic for both doses Esme Cox MA documented in this encounter [facility] 08-23-2022 History of Present illness Narrative Images from the original note were not included. [address] [address] Visit Date: 08/23/2022 Patient Name: Ruddy Ruvalcaba Date of : 1970 Chief Complaint: ER Follow Up Ruddy Ruvalcaba is a 52 year old male here today for a follow up to a recent emergency room (ER) visit. Emergency Room Location: [facility] Date of Emergency Room Visit: 08/18/22 Reason for Emergency Room Visit: Headache HPI: Patient presented to [facility] with his spouse on 08/18/22 for a severe headache and elevated blood pressure. He was experiencing blurred vision. CT brain was obtained and negative for any mass effect, bleed, or ischemia. CXR was negative (aorta calcified and tortuous). Labs were unremarkable. These findings were found via Care Everywhere. His states he was given the migraine cocktail while there but it did not help his headache at all. She remembers he was given something for his BP in his IV but thought it was called HCTZ. The patient states he had a horrible experience at the hospital and after he had his testing completed he waited 4 hours and never saw the doctor again so he left. His home BP readings continue to remain elevated 170-200's/90-100's. He rates his headache today a 22/10 and continues to having blurry vision. He denies any slurred speech, weakness in his extremities, N/T, or difficulty walking. He does not follow with cardiology or nephrology. He is a heavy smoker and has been for years. His states he does not watch his diet at all and always adds salt to his food even before tasting it. He does drink a small amount of caffeine. He denies any regular alcohol use. He does not exercise on a regular basis, continues to have issues with his recent right knee replacement. STOP BANG Questionnaire 1. Snoring Do you snore loudly (louder than talking or loud enough to be heard through closed doors)? YES 2. Tired Do you often feel tired, fatigued, or sleepy during daytime? YES 3. Observed Has anyone observed you stop breathing during your sleep? YES 4. Blood Pressure Do you have or are you being treated for high blood pressure? YES 5. BMI BMI more than 35 kg/m2? NO 6. Age Age over 50 yr old? YES 7. Neck circumference Neck circumference greater than 40 cm? YES 8. Gender Gender male? YES * Neck circumference is measured by staff High risk of LAURYN: answering yes to three or more items Low risk of LAURYN: answering yes to less than three items Vitals BP 182/102 Pulse 78 Temp 97.7 Resp 18 Ht 5' 10 (1.78m) Wt 243 lb (110.2kg) SpO2 96% BMI 34.87 kg/(m^2). 08/23/22 0936 08/23/22 1050 08/23/22 1051 BP: 180/104 170/100 182/102 Pulse: 78 Resp: 18 Temp: 36.5 C (97.7 F) SpO2: 96% Weight: 110.2 kg (243 lb) Height: 177.8 cm (5' 10 ) PAST MEDICAL HISTORY Diagnosis Date Essential hypertension 10/01/2015 Kidney stones Reflex sympathetic dystrophy of other specified site S/P insertion of spinal cord stimulator 10/01/2015 PAST SURGICAL HISTORY Procedure Laterality Date ARTHRS KNE SURG W/MENISCECTOMY MED/LAT W/SHVG Right 10/09/2015 Right knee arthroscopy medial meniscectomy ARTHRS KNE SURG W/MENISCECTOMY MED/LAT W/SHVG Right 10/26/2016 ARTHRS KNEE DRLG OSTEOCHOND DISSECANS INT FIXJ Right 10/09/2015 PF and medial distal femoral chondroplasties COLONOSCOPY FLX DX W/COLLJ SPEC WHEN PFRMD 11/14/2018 Colonoscopy CYSTO W LITHOTRIPSY 2013 renal calculi x 2 HERNIA REPAIR W/MESH 1999's PAST SURGICAL HISTORY OF nose-reconstruction PAST SURGICAL HISTORY OF Left 80's hand - plate and screws PAST SURGICAL HISTORY OF Left 80's humerous fx PAST SURGICAL HISTORY OF Right 90's Knee scope x's2 PAST SURGICAL HISTORY OF Left scope x's 2 knee PAST SURGICAL HISTORY OF Left acl repair 3x's TOTAL KNEE REPLACEMENT Right 12/01/2021 Right total robotic knee replacement FAMILY HISTORY Problem Relation Age of Onset other (negative) Father Social History Tobacco Use Smoking status: Every Day Packs/day: 0.50 Types: Cigars, Cigarettes Start date: 10/20/1988 Smokeless tobacco: Never Tobacco comments: 1 ppd since 2011 Vaping Use Vaping Use: Never used Substance Use Topics Alcohol use: No Drug use: No Current Meds amoxicillin-clavulanic acid (AUGMENTIN) 875-125 mg per tablet^Take 1 tablet by mouth twice daily.^Disp: 20 tablet^Rfl: 0 SUMAtriptan (IMITREX) 25 mg tablet^Take 1 tablet by mouth as needed for migraine headache (see administration instructions).^Disp: 6 tablet^Rfl: 0 lisinopril (ZESTRIL) 40 mg tablet^Take 1 tablet by mouth once daily.^Disp: 30 tablet^Rfl: 2 albuterol HFA (PROVENTIL HFA, VENTOLIN HFA) 90 mcg/actuation inhaler^Inhale 2 Puffs as instructed every 4 hours as needed for wheezing/shortness of breath.^Disp: 18 g^Rfl: 0 atorvastatin (LIPITOR) 20 mg tablet^Take 1 tablet by mouth once daily.^Disp: 90 tablet^Rfl: 3 metoprolol succinate ER (TOPROL XL) 25 mg 24 hr tablet^Take 1 tablet by mouth once daily.^Disp: 30 tablet^Rfl: 2 amLODIPine (NORVASC) 10 mg tablet^Take 1 tablet by mouth once daily.^Disp: 30 tablet^Rfl: 2 ascorbic acid, vitamin C, (VITAMIN C) 500 mg tablet^Take 1 tablet by mouth twice daily with meals for 27 doses.^Disp: 27 tablet^Rfl: 0 aspirin, enteric coated (ASPIRIN, ENTERIC COATED) 81 mg EC tablet^Take 1 tablet by mouth twice daily for 28 days.^Disp: 56 tablet^Rfl: 0 hydroCHLOROthiazide 25 mg tablet^Take 1 tablet by mouth once daily.^Disp: 30 tablet^Rfl: 2 tamsulosin (FLOMAX) 0.4 mg^Take 1 capsule by mouth daily at bedtime.^Disp: 7 capsule^Rfl: 0 oxyCODONE-acetaminophen (PERCOCET) 5-325 mg tablet^Take 1 tablet by mouth every 6 hours as needed for pain for up to 5 days.^Disp: 20 tablet^Rfl: 0 I have confirmed and edited as necessary the chief complaint, medications, past medical, family and social histories obtained by others. Review of Systems Constitutional: Positive for fatigue. Negative for appetite change, chills, diaphoresis, fever and unexpected weight change. HENT: Negative. Eyes: Positive for visual disturbance. Respiratory: Negative. Cardiovascular: Negative. Gastrointestinal: Positive for nausea. Negative for abdominal pain, constipation, diarrhea and vomiting. Endocrine: Negative. Genitourinary: Positive for flank pain (right sided). Negative for decreased urine volume, difficulty urinating, frequency, hematuria and urgency. Musculoskeletal: Positive for neck pain. Negative for back pain and gait problem. Skin: Negative. Allergic/Immunologic: Negative. Neurological: Positive for dizziness and headaches. Negative for tremors, seizures, syncope, facial asymmetry, speech difficulty, weakness, light-headedness and numbness. Psychiatric/Behavioral: Positive for sleep disturbance. Negative for confusion, decreased concentration and dysphoric mood. The patient is nervous/anxious. Physical Exam Vitals and nursing note reviewed. Constitutional: Appearance: He is obese. He is ill-appearing. HENT: Head: Normocephalic. Nose: Nose normal. No nasal tenderness. Right Sinus: No maxillary sinus tenderness or frontal sinus tenderness. Left Sinus: No maxillary sinus tenderness or frontal sinus tenderness. Mouth/Throat: Mouth: Mucous membranes are moist. Pharynx: Oropharynx is clear. Uvula midline. Eyes: General: Vision grossly intact. Extraocular Movements: Extraocular movements intact. Conjunctiva/sclera: Conjunctivae normal. Pupils: Pupils are equal, round, and reactive to light. Cardiovascular: Rate and Rhythm: Normal rate and regular rhythm. Pulses: Normal pulses. Heart sounds: Normal heart sounds, S1 normal and S2 normal. No murmur heard. Pulmonary: Effort: Pulmonary effort is normal. Breath sounds: Normal breath sounds and air entry. Abdominal: General: Bowel sounds are normal. Palpations: Abdomen is soft. Musculoskeletal: Cervical back: Neck supple. Skin: General: Skin is warm and dry. Neurological: General: No focal deficit present. Mental Status: He is alert and oriented to person, place, and time. Cranial Nerves: Cranial nerves 2-12 are intact. Psychiatric: Mood and Affect: Mood normal. Behavior: Behavior normal. Behavior is cooperative. Thought Content: Thought content normal. Cognition and Memory: Cognition normal. Judgment: Judgment normal. Name: RUDDY RUVALCABA Rep #: [id number] : [id number] M [id number] From: Adolfo Iqbal MD PCP: Dr. Barber Brown MD Status: PRE ER Study:Brain/Head without Contrast Date of Exa m: 08/18/22 Exam# [id number] Ordering Dr: Shaun Herr DO EXAMINATION : Head CT w/out contrast HISTORY : headache COMPARISON : None. TECHNIQUE : Multiple contiguous axial images were obtained from the skull base to the vertex without intravenous contrast. A radiation dose optimization technique was used for this scan. FINDINGS : The ventricles and sulci are normal in size. There is no evidence for acute intracranial hemorrhage, mass effect, or midline shift. There is no extra-axial fluid collection. There is normal andrade-white differentiation, without CT evidence of acute ischemia or infarct. The skull base and calvarium are unremarkable. The orbits are unremarkable. Moderate mucosal thickening of the right maxillary sinus. The mastoid air cells are well-aerated. The soft tissues are unremarkable. CT/Brain/Head without Contrast IMPRESSION: No acute intracranial abnormality. Right maxillary sinusitis. Electronically Signed: Jordi Iqbal MD Name: RUDDY RUVALCABA Rep #: [id number] : [id number] M [id number] From: [facility] esther Iqbal MD PCP: Dr. Barber Brown MD Status: PRE ER Study:Chest 1 View (Portable) Date of Exam: 08/18/22 Exam# [id number] Ordering Dr: Shaun Herr DO INDICATION: htn EXAMINATION/TECHNIQUE: X-RAY - XR Chest 1 View COMPARISON: 12/07/2019. FINDINGS: The lungs are clear. Tortuous and calcified thoracic aorta. The heart is not enlarged. No pleural effusion or pneumothorax. Degenerative changes of the thoracic spine. Spine stimulator in place. Data Reviewed: Most recent labs and imaging results. Most recent EKG Outside chart from [facility] reviewed. ASSESSMENT/PLAN: 1. Uncontrolled hypertension - ICD9: 401.9, ICD10: I10 (primary diagnosis) - Uncontrolled. Two doses of Clonidine were given in office today without significant improvement of his BP. - Factors affecting control: suspected sleep apnea, diet adherence, and lack of exercise - Start hydrochlorothiazide 25 mg daily - Continue Lisinopril 40 mg daily, Norvasc 10 mg daily, Metoprolol 25 mg daily - Strongly recommended a sleep study but he is concerned about the headache this time. - Recommend home blood pressure monitoring, to bring results to next visit - Encouraged sodium restriction, DASH or Mediterranean diet - Recommend regular aerobic exercise - Discussed need for and benefit of weight loss. BMI 34.87 kg/(m^2) - Smoking cessation encouraged; discussed risks to health and quitting strategies. Patient is not ready to quit - Reviewed risks of hypertension and principles of treatment - Refer to cardiology and obtain echo - Follow up in 2 weeks for hypertension visit - HYDROCHLOROTHIAZIDE 25 MG TABLET - CLONIDINE HCL 0.1 MG TABLET - COMP METABOLIC PANEL - TSH BLD - ECHO - CLONIDINE HCL 0.1 MG TABLET - CONSULT TO CARDIOLOGY 2. Severe headache - ICD9: 784.0, ICD10: R51.9 - He did not have any relief with migraine cocktail in the ER. Will give short course of pain medications for acute headache. Suspect it is related to his uncontrolled HTN. He recently underwent CT brain at [facility] that was negative for any mass affect or bleed. - OXYCODONE-ACETAMINOPHEN 5 MG-325 MG TABLET 3. Blurry vision, bilateral - ICD9: 368.8, ICD10: H53.8 - Secondary of uncontrolled HTN 4. Right flank pain - ICD9: 789.09, ICD10: R10.9 - He is unable to give sample in office today - Will send in a short course of Flomax. He has a history of large kidney stones that have required surgery - URINALYSIS WITH MICROSCOPIC, REFLEX CULTURE - TAMSULOSIN 0.4 MG CAPSULE 5. Nausea - ICD9: 787.02, ICD10: R11.0 - ONDANSETRON HCL 4 MG TABLET 6. History of kidney stones - ICD9: V13.01, ICD10: Z87.442 - TAMSULOSIN 0.4 MG CAPSULE 7. Tobacco smoker, 1 pack of cigarettes or less per day - ICD9: 305.1, ICD10: F17.210 - Cessation encouraged. - Physiologic and physical aspects of tobacco addiction as well as strategies for quitting were discussed. - Counseling was given focusing on the harmful effects of this addiction especially given the patient's medical condition(s) which will be worsened because of the chemicals in tobacco. - Counseling was given 3-4 minutes. 8. Obesity, Class I, BMI 30-34.9 - ICD9: 278.00, ICD10: E66.9 Stable - Behavioral intervention 9. At risk for sleep apnea - ICD9: V49.89, ICD10: Z91.89 - Strongly advised to have a sleep study for resistant HTN Return in about 2 weeks (around 09/06/2022) for HTN follow-up. I have reviewed the patient's (ER) course including diagnostic testing performed during this ER visit, their discharge medications, and my assessment and plan with the patient. Discussed the above with the patient using shared decision making. The patient is in agreement with the diagnostic and treatment plans. Medications Discontinued During This Encounter Medication Reason oxyCODONE-acetaminophen (PERCOCET) 5-325 mg tablet Course of therapy completed celecoxib (CELEBREX) 200 mg capsule Course of therapy completed predniSONE (DELTASONE) 10 mg tablet Course of therapy completed I spent a total of 52 minutes on the date of the service which included preparing to see the patient, [id number] patient care, completing clinical documentation, obtaining and/or reviewing separately obtained history, performing a medically appropriate examination, counseling and educating the patient/family/caregiver, ordering medications, tests, or procedures, communicating with other HCPs (not separately reported), independently interpreting results (not separately reported), and communicating results to the patient/family/caregiver. Jossy Natarajan APRN.CNP August 23, 2022 9:49 AM documented in this encounter [facility] 08-19-2022 Miscellaneous Notes patient electronically requesting refills as follows: Last seen 12/10/21 . Last refill 12/10/21 . Next office visit 08/23/22 Requested Prescriptions Pending Prescriptions Disp Refills lisinopril (ZESTRIL) 40 mg tablet 30 tablet 2 Sig: Take 1 tablet by mouth once daily. Please review and advise. Carlene Hussein MA documented in this encounter [facility] 08-19-2022 Miscellaneous Notes Please help assist with scheduling apt. documented in this encounter [facility] 08-01-2022 Note HNO ID: [id number] Author: RT Elliott(R) Service: ? Author Type: Technologist Type: Progress Notes Filed: 08/01/2022 9:56 AM Note Text: Radiology Service Progress Note PATIENT NAME: Ruddy Ruvalcaba DATE OF SERVICE: August 01, 2022 TIME: 9:55 AM PATIENT IDENTITY VERIFICATION COMPLETED USING TWO (2) IDENTIFIERS: Name and Date of confirmed by patient verbally. FALL SCREENING: Has the patient had 2 falls in the last year or 1 fall with injury or currently using an Ambulatory Assistive Device (Walker, Cane, Wheelchair, Crutches, etc.)? No PATIENT GENDER DATA: Male PATIENT RELEVANT IMPLANT DATA REVIEWED: Not Applicable RADIOLOGY DEPARTMENT: General X-ray: Exam(s) Completed: Pelvis X-Ray: Pelvis with Hip Right PERIPHERAL IV DATA: Not applicable SIGNED BY: RT Elliott(R) August 01, 2022 9:[address] [facility] 08-01-2022 History of Present illness Narrative Radiology Service Progress Note PATIENT NAME: Ruddy Ruvalcaba DATE OF SERVICE: August 01, 2022 TIME: 9:55 AM PATIENT IDENTITY VERIFICATION COMPLETED USING TWO (2) IDENTIFIERS: Name and Date of confirmed by patient verbally. FALL SCREENING: Has the patient had 2 falls in the last year or 1 fall with injury or currently using an Ambulatory Assistive Device (Walker, Cane, Wheelchair, Crutches, etc.)? No PATIENT GENDER DATA: Male PATIENT RELEVANT IMPLANT DATA REVIEWED: Not Applicable RADIOLOGY DEPARTMENT: General X-ray: Exam(s) Completed: Pelvis X-Ray: Pelvis with Hip Right PERIPHERAL IV DATA: Not applicable SIGNED BY: RT Elliott(R) August 01, 2022 9:55 AM documented in this encounter [facility] 07-28-2022 Miscellaneous Notes Phone call placed detailed message left on patient's identified voicemail, [employer] logon 07/27/2022. Brandi Iniguez LPN Please call and let patient know his COVID and flu test was negative. documented in this encounter [facility] 07-27-2022 Note HNO ID: [id number] Author: RT Jose(Obinna) Service: Radiology Author Type: Technologist Type: Progress Notes Filed: 07/27/2022 9:26 AM Note Text: Radiology Service Progress Note PATIENT NAME: Ruddy Ruvalcaba DATE OF SERVICE: July 27, 2022 TIME: 9:20 AM PATIENT IDENTITY VERIFICATION COMPLETED USING TWO (2) IDENTIFIERS: Name and Date of confirmed by patient verbally. FALL SCREENING: Has the patient had 2 falls in the last year or 1 fall with injury or currently using an Ambulatory Assistive Device (Walker, Cane, Wheelchair, Crutches, etc.)? No PATIENT GENDER DATA: Male PATIENT RELEVANT IMPLANT DATA REVIEWED: Yes RADIOLOGY DEPARTMENT: General X-ray: Exam(s) Completed: Chest X-Ray PERIPHERAL IV DATA: Not applicable SIGNED BY: Nikky Naranjo RT(R) July 27, 2022 9:[address] [facility] 07-27-2022 Note HNO ID: [id number] Author: Cinthia Kirby APRN.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 Service: ? Author Type: Nurse Practitioner Type: Progress Notes Filed: 07/27/2022 9:52 AM Note Text: This note was created using [employer]. Subjective Ruddy Ruvalcaba is a 52 year old male who presents for cough. Patient states he has had a cough for 3 days that is productive with thick white sputum. Patient also reports wheezing and a fever overnight 2 nights ago. Patient is a smoker. Review of Systems REVIEW OF SYSTEMS GENERAL: No weight loss, malaise or fevers HEENT: Negative for frequent or significant headaches, No changes in hearing or vision, no nose bleeds or other nasal problems RESPIRATORY: Cough; productive with white sputum, Wheezing, Shortness of breath Objective BP 158/98 Pulse 86 Temp 36.9 ?C (98.5 ?F) Resp 20 Wt 109.7 kg (241 lb 12.8 oz) SpO2 96% BMI 34.69 kg/m? Physical Exam PHYSICAL EXAMINATION: General appearance: Well appearing, alert, in no acute distress, well-hydrated, well nourished. Skin: Skin color, texture, turgor normal, no suspicious rashes or lesions Nose/Sinuses: Nares normal, septum midline, mucosa normal, no drainage or sinus tenderness Oropharynx: Lips, mucosa, and tongue normal, teeth and gums normal, oropharynx normal Lungs: Positive findings: wheezing right lower lung AANDP Heart: RRR without murmur, gallop, or rubs. No ectopy Assessment and Plan Problem List Items Addressed This Visit None Visit Diagnoses Acute cough - Primary Relevant Orders COVID WITH FLUA+B, ROUTINE XR CHEST 2V FRONTAL/LAT ASSESSMENT/PLAN: 1. Acute cough - ICD9: 786.2, ICD10: R05.1 (primary diagnosis) - COVID WITH FLUA+B, ROUTINE - XR CHEST 2V FRONTAL/LAT-Mild central peribronchial cuffing which may be seen with small airways inflammation/bronchitis. Mild right infrahilar bandlike opacity, atelectasis versus bronchopneumonia in the appropriate clinical setting. - ALBUTEROL SULFATE HFA 90 MCG/ACTUATION AEROSOL INHALER - INHALATIONAL SPACING DEVICE 2. Viral bronchitis - ICD9: 466.0, ICD10: J20.8 - ALBUTEROL SULFATE HFA 90 MCG/ACTUATION AEROSOL INHALER - INHALATIONAL SPACING DEVICE Cinthia Kirby APRN.[facility] 07-27-2022 History of Present illness Narrative This note was created using [employer]. Subjective Ruddy Ruvalcaba is a 52 year old male who presents for cough. Patient states he has had a cough for 3 days that is productive with thick white sputum. Patient also reports wheezing and a fever overnight 2 nights ago. Patient is a smoker. Review of Systems REVIEW OF SYSTEMS GENERAL: No weight loss, malaise or fevers HEENT: Negative for frequent or significant headaches, No changes in hearing or vision, no nose bleeds or other nasal problems RESPIRATORY: Cough; productive with white sputum, Wheezing, Shortness of breath Objective BP 158/98 Pulse 86 Temp 36.9 C (98.5 F) Resp 20 Wt 109.7 kg (241 lb 12.8 oz) SpO2 96% BMI 34.69 kg/m Physical Exam PHYSICAL EXAMINATION: General appearance: Well appearing, alert, in no acute distress, well-hydrated, well nourished. Skin: Skin color, texture, turgor normal, no suspicious rashes or lesions Nose/Sinuses: Nares normal, septum midline, mucosa normal, no drainage or sinus tenderness Oropharynx: Lips, mucosa, and tongue normal, teeth and gums normal, oropharynx normal Lungs: Positive findings: wheezing right lower lung A&P Heart: RRR without murmur, gallop, or rubs. No ectopy Assessment and Plan Problem List Items Addressed This Visit None Visit Diagnoses Acute cough - Primary Relevant Orders COVID WITH FLUA+B, ROUTINE XR CHEST 2V FRONTAL/LAT ASSESSMENT/PLAN: 1. Acute cough - ICD9: 786.2, ICD10: R05.1 (primary diagnosis) - COVID WITH FLUA+B, ROUTINE - XR CHEST 2V FRONTAL/LAT-Mild central peribronchial cuffing which may be seen with small airways inflammation/bronchitis. Mild right infrahilar bandlike opacity, atelectasis versus bronchopneumonia in the appropriate clinical setting. - ALBUTEROL SULFATE HFA 90 MCG/ACTUATION AEROSOL INHALER - INHALATIONAL SPACING DEVICE 2. Viral bronchitis - ICD9: 466.0, ICD10: J20.8 - ALBUTEROL SULFATE HFA 90 MCG/ACTUATION AEROSOL INHALER - INHALATIONAL SPACING DEVICE Cinthia Kirby APRN.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 documented in this encounter [facility] 07-26-2022 Miscellaneous Notes Patient called checking on status on pain medication refill Ruddy# [phone] Yuly Echevarria LPN documented in this encounter [facility] 07-19-2022 Miscellaneous Notes Patient called in checking on the status of his refill request from the weekend. documented in this encounter [facility] 07-12-2022 Miscellaneous Notes Patient called in with concerns stating that he is completely out of his oxycodone. Patient reports pain 7/10 with increased edema. States that he is using [id number] medications, ice, and is wearing his brace. Patient also requesting update on possible second opinion. Sylvia Augustine RN Duplicate request by patient. documented in this encounter [facility] 07-11-2022 Miscellaneous Notes Patient calling to check on status of refill and ask to have message sent due to being out. Cari Borges LPN documented in this encounter [facility] 06-23-2022 Miscellaneous Notes Pt called in asking about status of refill. Please review. documented in this encounter [facility] 06-10-2022 Miscellaneous Notes Pt calling to check on the status of refill of Percocet. He ran out yesterday. He is also asking about how the schedule the bone scan that was discussed at his appointment Monday. Please review and advise. Rosana Burdick MA documented in this encounter [facility] 06-06-2022 Note HNO ID: [id number] Author: Debra Rauno Ma Service: ? Author Type: ? Type: Progress Notes Filed: 06/07/2022 7:33 AM Note Text: PT ASSESSMENT - CASTING ROOM Ruddy presents for Application of brace. Applied large playmaker to Right knee. Patient electronically signed PPA. Patient declined to pay for brace today as he is on HCAP program. Patient has been advised to contact 800 number on statement when received to set up payment plan. He verbalized understanding. Patient has been instructed in Care and proper application of brace. Debra Ruano Ma [facility] 06-06-2022 Note HNO ID: [id number] Author: Miguel Bennett MD Service: ? Author Type: Physician Type: Progress Notes Filed: 06/07/2022 7:33 AM Note Text: Miguel Bennett MD Department of Orthopaedics Orthopaedics [address] [facility] [address] Dept: [phone] Dept June 06, 2022 CHIEF COMPLAINT: Established Patient, Swelling, and Knee Pain of the Right Knee. HPI Patient present to office with continuing pain and swelling. Patient is 6 months post op right TKA. Patient rates pain 6/10 on pain scale. Patient as been taking percocet and Celebrex as prescribed for pain. Patient completed lab work on Monday06/03/2022 as ordered. Floresita Vega LPN AMB ROOMING INTAKE FLOWSHEET DATA Pain Pain Level: 6 Pain Location: Knee-Right Description: Aching Duration Amount of Time: 6 Duration Units: Months Frequency: Continuous Intervention/Comfort measure: Reposition, Relaxation, Medication, Cold Patient presents with: Right Knee - Established Patient, Swelling, Knee Pain ASSESSMENT: G89.18 Post-op pain (primary encounter diagnosis) Z96.651 Status post total right knee replacement SUMMARY/PLAN: His blood work looks perfect which is excellent and our concern for possible infection is significantly low at this time. Plain films likewise look very appropriate. With his continued pain and what he is reporting as intermittent swelling, we probably at this point need to rule out some minor instability. Had like him to wear a brace and really focus on strengthening of the quadriceps first. Little bit too early from the standpoint of a bone scan though I do not suspect aseptic loosening. Lets see how he feels with intermittent use of a brace for now and will move on from there. Exam: No effusion today. His anterior and posterior stability appears normal though it did cause him some discomfort with an anterior drawer. Varus and valgus is stable but there is a bit of mild play and slight widening of each side, though no gross instability or outside of the normal standard deviation of medial and lateral laxity. Imaging: ESR and CRP reviewed and they are normal Mr. Ruddy Ruvalcaba was advised as to contrast therapies and/or to take analgesics/anti-inflammatories as needed and all contraindications were reviewed. Supporting Information Below: Medications: Current Outpatient Medications Medication Sig oxyCODONE-acetaminophen (PERCOCET) 5-325 mg tablet Take 1 tablet by mouth every 8 hours as needed. celecoxib (CELEBREX) 200 mg capsule Take 1 capsule by mouth twice daily. atorvastatin (LIPITOR) 20 mg tablet Take 1 tablet by mouth once daily. metoprolol succinate ER (TOPROL XL) 25 mg 24 hr tablet Take 1 tablet by mouth once daily. lisinopril (ZESTRIL, PRINIVIL) 40 mg tablet Take 1 tablet by mouth once daily. amLODIPine (NORVASC) 10 mg tablet Take 1 tablet by mouth once daily. ascorbic acid, vitamin C, (VITAMIN C) 500 mg tablet Take 1 tablet by mouth twice daily with meals for 27 doses. aspirin, enteric coated (ASPIRIN, ENTERIC COATED) 81 mg EC tablet Take 1 tablet by mouth twice daily for 28 days. predniSONE (DELTASONE) 10 mg tablet 6 tabs po day 1, then 5 tabs day 2, 4 tabs day 3, 3 tabs day 4, 2 tabs day 5, 1 tab day 6. (Patient not taking: Reported on 04/25/2022) No current facility-administered medications for this visit. Allergies: Patient has no known allergies. Miguel Bennett MD [facility] 06-06-2022 History of Present illness Narrative PT ASSESSMENT - CASTING ROOM Ruddy presents for Application of brace. Applied large playmaker to Right knee. Patient electronically signed PPA. Patient declined to pay for brace today as he is on HCAP program. Patient has been advised to contact 800 number on statement when received to set up payment plan. He verbalized understanding. Patient has been instructed in Care and proper application of brace. Debra Ruano Ma Miguel Bennett MD Department of Orthopaedics Orthopaedics [address] [facility] [address] Dept: [phone] Dept June 06, 2022 CHIEF COMPLAINT: Established Patient, Swelling, and Knee Pain of the Right Knee. HPI Patient present to office with continuing pain and swelling. Patient is 6 months post op right TKA. Patient rates pain 6/10 on pain scale. Patient as been taking percocet and Celebrex as prescribed for pain. Patient completed lab work on Monday06/03/2022 as ordered. Floresita Vega LPN AMB ROOMING INTAKE FLOWSHEET DATA Pain Pain Level: 6 Pain Location: Knee-Right Description: Aching Duration Amount of Time: 6 Duration Units: Months Frequency: Continuous Intervention/Comfort measure: Reposition, Relaxation, Medication, Cold Patient presents with: Right Knee - Established Patient, Swelling, Knee Pain ASSESSMENT: G89.18 Post-op pain (primary encounter diagnosis) Z96.651 Status post total right knee replacement SUMMARY/PLAN: His blood work looks perfect which is excellent and our concern for possible infection is significantly low at this time. Plain films likewise look very appropriate. With his continued pain and what he is reporting as intermittent swelling, we probably at this point need to rule out some minor instability. Had like him to wear a brace and really focus on strengthening of the quadriceps first. Little bit too early from the standpoint of a bone scan though I do not suspect aseptic loosening. Lets see how he feels with intermittent use of a brace for now and will move on from there. Exam: No effusion today. His anterior and posterior stability appears normal though it did cause him some discomfort with an anterior drawer. Varus and valgus is stable but there is a bit of mild play and slight widening of each side, though no gross instability or outside of the normal standard deviation of medial and lateral laxity. Imaging: ESR and CRP reviewed and they are normal Mr. Ruddy Ruvalcaba was advised as to contrast therapies and/or to take analgesics/anti-inflammatories as needed and all contraindications were reviewed. Supporting Information Below: Medications: Current Outpatient Medications Medication Sig oxyCODONE-acetaminophen (PERCOCET) 5-325 mg tablet Take 1 tablet by mouth every 8 hours as needed. celecoxib (CELEBREX) 200 mg capsule Take 1 capsule by mouth twice daily. atorvastatin (LIPITOR) 20 mg tablet Take 1 tablet by mouth once daily. metoprolol succinate ER (TOPROL XL) 25 mg 24 hr tablet Take 1 tablet by mouth once daily. lisinopril (ZESTRIL, PRINIVIL) 40 mg tablet Take 1 tablet by mouth once daily. amLODIPine (NORVASC) 10 mg tablet Take 1 tablet by mouth once daily. ascorbic acid, vitamin C, (VITAMIN C) 500 mg tablet Take 1 tablet by mouth twice daily with meals for 27 doses. aspirin, enteric coated (ASPIRIN, ENTERIC COATED) 81 mg EC tablet Take 1 tablet by mouth twice daily for 28 days. predniSONE (DELTASONE) 10 mg tablet 6 tabs po day 1, then 5 tabs day 2, 4 tabs day 3, 3 tabs day 4, 2 tabs day 5, 1 tab day 6. (Patient not taking: Reported on 04/25/2022) No current facility-administered medications for this visit. Allergies: Patient has no known allergies. Miguel Bennett MD documented in this encounter [facility] 05-25-2022 Miscellaneous Notes Addressed in another refill encounter today by Dr. eBnnett. Pt calling back to see status of prescription refill. Please review and advise. Rosana Burdick MA Patient called in to follow up on script for pain medication. Please review and advise. Thank you. Yuly Echevarria LPN documented in this encounter [facility] 05-25-2022 Miscellaneous Notes Refilled in another encounter today by Dr. Bennett. documented in this encounter [facility] 05-25-2022 Miscellaneous Notes I left a detailed message for patient on voicemail. Patient phones requesting refills as follows: Requested Prescriptions Pending Prescriptions Disp Refills oxyCODONE-acetaminophen (PERCOCET) 5-325 mg tablet 20 tablet 0 Sig: Take 1 tablet by mouth every 8 hours as needed. Please review and advise. Daniela Manriquez RN documented in this encounter [facility] 05-13-2022 Miscellaneous Notes Pt called to inquire about status of refill for percocet, pt wanted to take care of it before the weekend. Please advise. Katelin Muse RN documented in this encounter [facility] 05-06-2022 Miscellaneous Notes Pt calling in requesting refill of his pain medication. States he has sent a [facility] message, called in multiple times and now it's Monday afternoon and he is afraid he will be without his medication over the weekend. Please respond to his request maryellen. Thank you. Roxi Lopez RN Patient calling back again regarding pain medication refill? Please review and update patient. Thank you. Patient called back today, following up on requesting pain medication. Thank you. documented in this encounter [facility] 04-29-2022 Miscellaneous Notes Called left message on patients voicemail with all information. Gave hours for our lab. .Yuly Polanco MA Order for fasting lipid panel placed. ----- Message from Esme Cox MA sent at 01/28/2022 5:03 PM EST ----- lipid panel again in 3 months documented in this encounter [facility] 04-25-2022 Note HNO ID: [id number] Author: Miguel Bennett MD Service: ? Author Type: Physician Type: Progress Notes Filed: 05/20/2022 9:33 AM Note Text: AMB ROOMING INTAKE FLOWSHEET DATA Pain Pain Level: 5 Pain Location: Knee-Right Description: Aching Duration Amount of Time: (several months) Duration Units: Months Frequency: Continuous Intervention/Comfort measure: Reposition, Relaxation, Medication Patient presents with: Right Knee - Post Op, Knee Replacement Patient is 20 weeks 5 days s/p robotic R TKA. Continues with pain and swelling to R knee. Taking percocet for pain and it helps take the edge off. Wants scheduled for aspiration of R knee under US guidance. We had a lengthy discussion about his knee which overall, he does report seems to be doing a bit better. We are trying to wean him off of narcotics but it has been helping while he has been slowly improving. He still reports intermittent swelling, though in the office its been difficult to evaluate for any swelling outside the normal. He will continue his range of motion and strengthening and activity level. We will continue some pain medication to get him through these next couple of months. The goal for both of us is to wean him off. Miguel Bennett MD [facility] 04-25-2022 History of Present illness Narrative AMB ROOMING INTAKE FLOWSHEET DATA Pain Pain Level: 5 Pain Location: Knee-Right Description: Aching Duration Amount of Time: (several months) Duration Units: Months Frequency: Continuous Intervention/Comfort measure: Reposition, Relaxation, Medication Patient presents with: Right Knee - Post Op, Knee Replacement Patient is 20 weeks 5 days s/p robotic R TKA. Continues with pain and swelling to R knee. Taking percocet for pain and it helps take the edge off. Wants scheduled for aspiration of R knee under US guidance. We had a lengthy discussion about his knee which overall, he does report seems to be doing a bit better. We are trying to wean him off of narcotics but it has been helping while he has been slowly improving. He still reports intermittent swelling, though in the office its been difficult to evaluate for any swelling outside the normal. He will continue his range of motion and strengthening and activity level. We will continue some pain medication to get him through these next couple of months. The goal for both of us is to wean him off. Miguel Bennett MD documented in this encounter [facility] 01-19-2023 Miscellaneous Notes Ruddy called back stating, still having pain 7 in Right knee, completed the steroids and has been taking ibuprofen and tylenol, he is back using his crutches because to painful to bear weight. states needs to have something for pain. Please advise. Thank you. Ruddy# [phone] documented in this encounter [facility] 03-28-2022 Note HNO ID: [id number] Author: Monica Venegas PA-C Service: ? Author Type: Physician Patient Relations Director Type: Progress Notes Filed: 03/28/2022 4:12 PM Note Text: Monica Venegas PA-C Department of Orthopaedics Orthopaedics [address] [address] Dept: [phone] Dept March 28, 2022 CHIEF COMPLAINT: Swelling, Knee Pain, and Established Patient of the Right Knee. ASSESSMENT: Z96.651 Status post total right knee replacement (primary encounter diagnosis) SUMMARY/PLAN: Patient presents 3.5 months s/p right TKA. Complains of continued pain and swelling, inflammatories markers slightly elevated, presents today for synovasure testing. Dry tap today, dicussed trying an oral steroid and rechecking inflammatory marker to see how they are trending, may consider ultrasound guided tap if markers continue to elevate or do not decreased. Large Joint Arthro/Inj: R knee joint Informed Consent Consent Obtained: Verbal [place] Protocol A moment to CARE was completed. SIGN IN Sign in communication not applicable due to emergent procedure. Personnel directly involved with the procedure wore the appropriate PPE. Special Equipment: N/A Patient/Surrogate Stated/Verified: Patient name, Date of , Relevant allergies and Intended procedure TIME OUT Intended patient and procedure match the source document(s). Consent documented and matches the intended procedure. Relevant labs, photos, and/or imaging studies have been reviewed. Correct side/site marked and visible. Medications required for procedure verified. No fire risk assessment and interventions applicable. No implant(s) inserted. 03/28/2022 4:10 PM The procedure site was prepped in the usual sterile fashion. Site: R knee joint Aspirate: 0 mL Anesthetics: 5 mL lidocaine (PF) 10 mg/mL (1 %) Outcome: Tolerated well, no immediate complications Post-injection instructions were reviewed with the patient and the patient voiced understanding of these instructions. SIGN OUT Post-procedure follow-up management communicated and Plan of Care Visit completed when applicable Mr. Ruddy Ruvalcaba was advised as to contrast therapies and/or to take analgesics/anti-inflammatories as needed and all contraindications were reviewed. Supporting Information Below: Medications: Current Outpatient Medications Medication Sig atorvastatin (LIPITOR) 20 mg tablet Take 1 tablet by mouth once daily. metoprolol succinate ER (TOPROL XL) 25 mg 24 hr tablet Take 1 tablet by mouth once daily. lisinopril (ZESTRIL, PRINIVIL) 40 mg tablet Take 1 tablet by mouth once daily. amLODIPine (NORVASC) 10 mg tablet Take 1 tablet by mouth once daily. acetaminophen (TYLENOL) 500 mg tablet Take 2 tablets by mouth every 8 hours as needed for pain. predniSONE (DELTASONE) 10 mg tablet 6 tabs po day 1, then 5 tabs day 2, 4 tabs day 3, 3 tabs day 4, 2 tabs day 5, 1 tab day 6. ascorbic acid, vitamin C, (VITAMIN C) 500 mg tablet Take 1 tablet by mouth twice daily with meals for 27 doses. aspirin, enteric coated (ASPIRIN, ENTERIC COATED) 81 mg EC tablet Take 1 tablet by mouth twice daily for 28 days. No current facility-administered medications for this visit. Allergies: Patient has no known allergies. This note was partially generated using [email or web address] voice recognition system, and there may be some incorrect words, spellings, and punctuation that were not noted in checking the note before saving. Monica Venegas PA-C [facility] 03-28-2022 Note HNO ID: [id number] Author: Su Trevino RN Service: ? Author Type: Registered Nurse Type: Progress Notes Filed: 03/28/2022 4:12 PM Note Text: Patient presents with: Right Knee - Swelling, Knee Pain, Established Patient AMB ROOMING INTAKE FLOWSHEET DATA Risk Screening Do you have concerns about personal safety or safety in the home?: No Pain Pain Level: 7 Pain Location: Knee-Right Description: Sharp Duration Amount of Time: 4 Duration Units: Months Frequency: Continuous Pt with right knee pain and swelling s/p TKA. [facility] 03-24-2022 Miscellaneous Notes I called and spoke with patient. Message from Monica Venegas PA-C given and patient verbalized understanding. Patient has been scheduled on Monday03/28/2022 at 2:30 pm. Monica to bring kit from [facility] office. Can we let that patient know that his inflammatory markers were elevated and we need to aspirate his knee to rule out infection. We can get him scheduled for an office visit next week? Responded to patient's [employer] message, see epic. Dr. Bennett would like the patient to have some inflammatory markers drawn. Order for testing has been placed. We will contact the patient once we have the results of the lab tests. Pt calling in. States he is still having pain (rated from 5-7) in right knee. States he sent a revoPT message on 03/14/22 and has not gotten a response. Pt is currently taking Tylenol and Ibuprofen, but would like something else to help manage the pain. Please call pt and advise. Thank you. Roxi Lopez, RN documented in this encounter [facility] 02-25-2022 Miscellaneous Notes He is over 3 months out from his surgery, it is not appropriate to continue with narcotic pain medications this far out. I have been more than generous because of his pain control issues, and did taper him off the narcotics more slowly than I do for most patients. documented in this encounter [facility] 02-21-2022 Note HNO ID: [id number] Author: Miguel Bennett MD Service: ? Author Type: Physician Type: Progress Notes Filed: 02/22/2022 7:35 AM Note Text: Miguel Bennett MD Department of Orthopaedics Orthopaedics [address] [place] [address] Dept: [phone] Dept February 21, 2022 CHIEF COMPLAINT: Established Patient and Post Op of the Right Knee. HPI Patient here today for 11 weeks 5 days post op robotic right TKA. Patient still having swelling and pain. He is no longer doing PT. ASSESSMENT: Z96.651 Status post total right knee replacement (primary encounter diagnosis) SUMMARY/PLAN: He is doing well overall, though he certainly is having a little bit of impatience which is certainly reasonable for a young man. He is having a little bit more discomfort than typical but is still certainly on the appropriate antunez curve for postoperative pain about 3 months out. His exam actually looks quite well and I have no surgical concerns at this time. We will continue to wean his medication. He will continue his strengthening program. I think we will do quite well and we will see him back at around the 6-month sandy. Exam: Surgical incision is healed. Very minimal and appropriate warmth without any redness. No effusion. He has full extension and flexion of nearly 120 degrees. Imaging: Deferred today Mr. Ruddy Ruvalcaba was advised as to contrast therapies and/or to take analgesics/anti-inflammatories as needed and all contraindications were reviewed. Supporting Information Below: Medications: Current Outpatient Medications Medication Sig oxyCODONE IR (ROXICODONE) 5 mg immediate release tablet Take 1 tablet by mouth every 8 hours as needed for pain for up to 7 days. atorvastatin (LIPITOR) 20 mg tablet Take 1 tablet by mouth once daily. metoprolol succinate ER (TOPROL XL) 25 mg 24 hr tablet Take 1 tablet by mouth once daily. lisinopril (ZESTRIL, PRINIVIL) 40 mg tablet Take 1 tablet by mouth once daily. amLODIPine (NORVASC) 10 mg tablet Take 1 tablet by mouth once daily. acetaminophen (TYLENOL) 500 mg tablet Take 2 tablets by mouth every 8 hours as needed for pain. ascorbic acid, vitamin C, (VITAMIN C) 500 mg tablet Take 1 tablet by mouth twice daily with meals for 27 doses. aspirin, enteric coated (ASPIRIN, ENTERIC COATED) 81 mg EC tablet Take 1 tablet by mouth twice daily for 28 days. No current facility-administered medications for this visit. Allergies: Patient has no active allergies. Miguel Bennett MD [facility] 02-21-2022 History of Present illness Narrative Miguel Bennett MD Department of Orthopaedics Orthopaedics [address] [facility] [address] Dept: [phone] Dept February 21, 2022 CHIEF COMPLAINT: Established Patient and Post Op of the Right Knee. HPI Patient here today for 11 weeks 5 days post op robotic right TKA. Patient still having swelling and pain. He is no longer doing PT. ASSESSMENT: Z96.651 Status post total right knee replacement (primary encounter diagnosis) SUMMARY/PLAN: He is doing well overall, though he certainly is having a little bit of impatience which is certainly reasonable for a young man. He is having a little bit more discomfort than typical but is still certainly on the appropriate antunez curve for postoperative pain about 3 months out. His exam actually looks quite well and I have no surgical concerns at this time. We will continue to wean his medication. He will continue his strengthening program. I think we will do quite well and we will see him back at around the 6-month sandy. Exam: Surgical incision is healed. Very minimal and appropriate warmth without any redness. No effusion. He has full extension and flexion of nearly 120 degrees. Imaging: Deferred today Mr. Ruddy Ruvalcaba was advised as to contrast therapies and/or to take analgesics/anti-inflammatories as needed and all contraindications were reviewed. Supporting Information Below: Medications: Current Outpatient Medications Medication Sig oxyCODONE IR (ROXICODONE) 5 mg immediate release tablet Take 1 tablet by mouth every 8 hours as needed for pain for up to 7 days. atorvastatin (LIPITOR) 20 mg tablet Take 1 tablet by mouth once daily. metoprolol succinate ER (TOPROL XL) 25 mg 24 hr tablet Take 1 tablet by mouth once daily. lisinopril (ZESTRIL, PRINIVIL) 40 mg tablet Take 1 tablet by mouth once daily. amLODIPine (NORVASC) 10 mg tablet Take 1 tablet by mouth once daily. acetaminophen (TYLENOL) 500 mg tablet Take 2 tablets by mouth every 8 hours as needed for pain. ascorbic acid, vitamin C, (VITAMIN C) 500 mg tablet Take 1 tablet by mouth twice daily with meals for 27 doses. aspirin, enteric coated (ASPIRIN, ENTERIC COATED) 81 mg EC tablet Take 1 tablet by mouth twice daily for 28 days. No current facility-administered medications for this visit. Allergies: Patient has no active allergies. Miguel Bennett MD documented in this encounter [facility] 02-07-2022 Miscellaneous Notes I left a detailed message on identified voicemail. documented in this encounter [facility] 01-28-2022 Miscellaneous Notes Patient is informed Esme Cox MA Rx for Lipitor sent in for patient to start. Recheck lipid panel again in 3 months- please place reminder. Patient called stating that he won't be able to come to his appointment on Monday but he still would like to try the new medication that he was going to be prescribed at his appointment on Monday. Esme Cox MA documented in this encounter [facility] 01-27-2022 Miscellaneous Notes Patient phones requesting refills as follows: Requested Prescriptions Pending Prescriptions Disp Refills oxyCODONE IR (ROXICODONE) 5 mg immediate release tablet 30 tablet 0 Sig: Take 1 tablet by mouth every 8 hours as needed for pain for up to 10 days. Please review and advise. Rosana Burdick documented in this encounter [facility] 01-26-2022 Miscellaneous Notes I called and left a detailed message on identified voicemail for patient with message below. Images from the original note were not included. BEAU Castillo [facility] Orthopaedic Pool Can we let him know that his ultrasound was negative for DVT. So swelling is likely just from surgery and will resolve with time. He should keep icing and elevating. Monica documented in this encounter [facility] 01-19-2022 Note HNO ID: [id number] Author: Cindy Burch PT Service: ? Author Type: Physical Therapist Type: Progress Notes Filed: 02/17/2022 8:57 AM Note Text: 02/17/2022 [facility] PHYSICAL THERAPY DISCONTINUANCE OF CARE Plan of Care Period: Start of Care Date: 12/29/21 Last Visit Date: 01/19/2022 Therapy Program: The following is a summary of the interventions provided for this episode of care; Therapeutic exercise, Self-halfway management, and Gait training Assessment: Based on most recent visit, patient was progressing slower than expected toward functional goals based on documented subjective information on progress and appointment compliance. Unable to formally assess goal achievement, as patient has not returned to therapy or scheduled additional follow-up appointments. Reason for Discontinuation of Care: Patient has not returned to therapy or scheduled additional follow-up appointments. Cindy Burch PT Episode Visit Count: 3 Therapist That Will Accept/Oversee The Plan Of Care: Cindy Burch Start of Care Date: 12/29/21 Onset Date: 12/01/21 Plan of Care Certification Date: 12/29/21 Next Certification Due Date: 02/02/22 [facility] PHYSICAL THERAPY TREATMENT NOTE ASSESSMENT: Ruddy Myersman tolerated the session with decreased symptoms and expected muscle soreness. He demonstrated improvements in AROM as well as AAROM R knee flexion heel slides. The patient will continue to benefit from ongoing skilled physical therapy to progress toward set goals. PLAN FOR NEXT VISIT: Continue functinal strength and balance training SUBJECTIVE: Patient Reason for Visit: Pt. has stopped using the cane due to it's annoying. He had to cancel last visit due to having the flu. Pt. has continued the HEP exercises while he had the floor. Pain: Pain Pain Level: 6 Pain Location: Knee - Right Post Treatment Pain Post Treatment Pain Level: 7 Post Treatment Pain Location: Knee - Right Post Treatment Pain Description: Sore OBJECTIVE MEASURES WITH LEVEL OF FUNCTION: LE AROM R Knee Flexion: 115 Degrees (much encouragement to flex knee to endrange) LE PROM R Knee Flexion: 119 Degrees TREATMENT: Therapeutic Exercise: 1: supine heel slide 2x10 R (measurement taken) 2: supine heel slides AAROM with strap 2x10 R 5 sec hold each (measurement taken) 3: *supine SLR RLE 3x8 4: *sit <> stand from chair 3x5 with arm rests 5: *supine HS stretch with strap 3x30 sec 6: *updated HEP 2x/daily, continue AAROM and AROM heel slides Skilled Intervention: Patient was educated in proper exercise technique and purpose for exercises. Skilled judgment was provided in selection of appropriate interventions. Correct performance of therapeutic exercises was facilitated with verbal, visual, and tactile cuing. Educated patient on rationale for performing exercises in regards to decreasing fatigue , including balance, increase ease of ADL, and ROM and function . Patient education as noted. Gait Training: Distance (feet): 100 Gait Cues: heel strike, toe push off advised use of cane Assistive Device: none Assist Level: supervision Skilled Intervention: Patient was provided supervision during pre-gait/gait training to prevent falls and insure safety. Skilled judgment used to assess selection, proper sizing, and proper use of assistive device. Correct performance of home program was facilitated with verbal, visual, and tactile cueing. Billing Therapeutic Exercise Treatment Minutes: 35 Gait Training Treatment Minutes: 5 Total Treatment Time Minutes (timed/untimed): 40 Cindy Burch, PT [facility] 01-19-2022 History of Present illness Narrative Episode Visit Count: 3 Therapist That Will Accept/Oversee The Plan Of Care: Cindy Burch Start of Care Date: 12/29/21 Onset Date: 12/01/21 Plan of Care Certification Date: 12/29/21 Next Certification Due Date: 02/02/22 [facility] PHYSICAL THERAPY TREATMENT NOTE ASSESSMENT: Ruddy Ruvalcaba tolerated the session with decreased symptoms and expected muscle soreness. He demonstrated improvements in AROM as well as AAROM R knee flexion heel slides. The patient will continue to benefit from ongoing skilled physical therapy to progress toward set goals. PLAN FOR NEXT VISIT: Continue functinal strength and balance training SUBJECTIVE: Patient Reason for Visit: Pt. has stopped using the cane due to it's annoying. He had to cancel last visit due to having the flu. Pt. has continued the HEP exercises while he had the floor. Pain: Pain Pain Level: 6 Pain Location: Knee - Right Post Treatment Pain Post Treatment Pain Level: 7 Post Treatment Pain Location: Knee - Right Post Treatment Pain Description: Sore OBJECTIVE MEASURES WITH LEVEL OF FUNCTION: LE AROM R Knee Flexion: 115 Degrees (much encouragement to flex knee to endrange) LE PROM R Knee Flexion: 119 Degrees TREATMENT: Therapeutic Exercise: 1: supine heel slide 2x10 R (measurement taken) 2: supine heel slides AAROM with strap 2x10 R 5 sec hold each (measurement taken) 3: *supine SLR RLE 3x8 4: *sit <> stand from chair 3x5 with arm rests 5: *supine HS stretch with strap 3x30 sec 6: *updated HEP 2x/daily, continue AAROM and AROM heel slides Skilled Intervention: Patient was educated in proper exercise technique and purpose for exercises. Skilled judgment was provided in selection of appropriate interventions. Correct performance of therapeutic exercises was facilitated with verbal, visual, and tactile cuing. Educated patient on rationale for performing exercises in regards to decreasing fatigue , including balance, increase ease of ADL, and ROM and function . Patient education as noted. Gait Training: Distance (feet): 100 Gait Cues: heel strike, toe push off advised use of cane Assistive Device: none Assist Level: supervision Skilled Intervention: Patient was provided supervision during pre-gait/gait training to prevent falls and insure safety. Skilled judgment used to assess selection, proper sizing, and proper use of assistive device. Correct performance of home program was facilitated with verbal, visual, and tactile cueing. Billing Therapeutic Exercise Treatment Minutes: 35 Gait Training Treatment Minutes: 5 Total Treatment Time Minutes (timed/untimed): 40 Cindy Burch PT documented in this encounter [facility] 01-13-2022 Note HNO ID: [id number] Author: Miguel Bennett MD Service: ? Author Type: Physician Type: Progress Notes Filed: 02/08/2022 8:46 AM Note Text: Patient presents with: Right Knee - Established Patient, Pre-Op Visit Ortho Knee Follow Up Note Narrative Referring Provider: Miguel Bennett [address] [facility] [address] PCP: Jossy Natarajan APRN.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 IMPRESSION/PLAN: 51 year old s/p Right Total Knee Replacement completed on 12/01/2021. AMB ROOMING INTAKE FLOWSHEET DATA Risk Screening Do you have concerns about personal safety or safety in the home?: No Pain Pain Level: 7 Pain Location: Knee-Right Description: Stabbing/Not Incision, Throbbing Duration Units: Weeks Frequency: Continuous Intervention/Comfort measure: Medication, Cold Pt here for 6 week post op TKA. Pt states pain is still between a 6-8 all the time. Tylenol, Oxycodone, Ibuprofen and ice used for minimal pain relief. Orthopaedic Surgeries 12/01/2021 (9w, 6d) ROBOTIC ASSISTED TOTAL KNEE ARTHROPLASTY; COMPUTER ASSIST MUSCULOSKETAL SURG NAVIGATION ORTHO PROCED W/IMAGE GUIDANCE BASED ON CT/MRI IMAGES (Right; Right) Miguel Bennett MD - Posted 10/26/2016 (3yr) ARTHROSCOPY KNEE ARTICULAR CARTILAGE SHAVING OR DEBRIDEMENT (Right) Miguel Bennett MD - Posted 10/09/2015 (4yr) ARTHROSCOPY KNEE W/ MENISCECTOMY MEDIAL (Right) Miguel Bennett MD - Posted PAIN EVALUATION 01/13/2022 1301 Pain Level: 7 Pain Location: Knee-Right Description: Stabbing/Not Incision;Throbbing Duration Units: Weeks Frequency: Continuous Intervention/Comfort measure: Medication;Cold IMPRESSION: Slow post-operative recovery. PLAN: Continue current conservative treatment. Rest, Ice, Compression, Elevation PRN. Patient Reassurance: Normal post-operative course discussed with patient. Progress appears to be with the normal speed of recovery. Patient reassured and supported. All questions answered. Follow up 6 weeks X-Rays not needed Ruddy Ruvalcaba presents today for a an intermediate post-op visit ACTIVE PROBLEM LIST Rsd (Reflex Sympathetic Dystrophy) Essential Hypertension S/P Insertion of Spinal Cord Stimulator Complex Tear of Medial Meniscus of Right Knee As Current Injury Chronic Postoperative Pain Tear of Lateral Meniscus of Right Knee, Current Rupture of Anterior Cruciate Ligament of Right Knee Headaches Class 2 Severe Obesity Due to Excess Calories With Serious Comorbidity and Body Mass Index (Bmi) of 35.0 to 35.9 in Adult (Hcc) Post-Traumatic Osteoarthritis of Right Knee Tobacco Smoker, 1 Pack of Cigarettes Or Less Per Day S/P Knee Replacement Status post op: BMI: There is no height or weight on file to calculate BMI. Post-operative recovery was complicated by uneventful/none. Readmission(s) since surgery (90 days post)? No ED Visits AND Hospitalizations - Last 180 days 12/01/21 Miguel Bennett MD, ME2E S/P total knee arthroplasty, right, Admission (Discharged) Patient rates their condition as improving and but slowly. Does the patient still experience pain? see nursing note section in Epic Chart Post Op discharge patient location: in home. Functional Assessment is as follows: has already started outpatient PT as of this visit. Functional difficulties: Interferes with sleep, Prolonged standing, Stair climbing, Arising from chair, and Walking. Pain Medication: Narcotic Current Opioids Analgesic Opioid Agonists Start End oxyCODONE IR (ROXICODONE) 5 mg immediate release tablet 02/07/2022 02/17/2022 Sig - Route: Take 1 tablet by mouth every 8 hours as needed for pain for up to 10 days. - ORAL Earliest Fill Date: 02/07/2022 Currently Ambulating with: a cane Physical Therapy Data 12/29/2021 01/06/2022 01/19/2022 Surgical procedure R TKA 12/01/21 - - Surgical procedure date 12/01/2021 12/01/2021 12/01/2021 Weight bearing status - - - AROM R comment - - - AROM L comment - - - AROM R knee extension - - - AROM R knee flexion 90 110 115 AROM L knee extension - - - AROM L knee flexion - - - PROM R knee extension -4 0 - PROM R knee flexion 105 115 119 Therapist that will oversee plan of care Cindy Burch Prognosis Good - - Frequency 2x/week - - Duration 8 weeks - - Total number of visits 16 - - Planned treatment interventions Therapeutic exercise (34677);Neuromuscular re-education (62543);Manual therapy (62660);Therapeutic activities (93689);Self-halfway management (06841);Gait Training (08890);Patient/Family/Caregiver Education - - Plan for next visit Assess ROM progress. Gait training with striaght cane or single crutch Continue progressing AAROM and AROM as tolerated. Progress to standing and gait as symptoms reduce. Continue functinal strength and balance training Provider signed Cindy Burch - - EXAM: POST OP KNEE ======= (more content not included)... [facility] 01-13-2022 History of Present illness Narrative Images from the original note were not included. Patient presents with: Right Knee - Established Patient, Pre-Op Visit Ortho Knee Follow Up Note Narrative Referring Provider: Miguel Bennett [address] [facility] [id number] PCP: Jossy Natarajan APRN.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 IMPRESSION/PLAN: 51 year old s/p Right Total Knee Replacement completed on 12/01/2021. AMB ROOMING INTAKE FLOWSHEET DATA Risk Screening Do you have concerns about personal safety or safety in the home?: No Pain Pain Level: 7 Pain Location: Knee-Right Description: Stabbing/Not Incision, Throbbing Duration Units: Weeks Frequency: Continuous Intervention/Comfort measure: Medication, Cold Pt here for 6 week post op TKA. Pt states pain is still between a 6-8 all the time. Tylenol, Oxycodone, Ibuprofen and ice used for minimal pain relief. Orthopaedic Surgeries 12/01/2021 (9w, 6d) ROBOTIC ASSISTED TOTAL KNEE ARTHROPLASTY; COMPUTER ASSIST MUSCULOSKETAL SURG NAVIGATION ORTHO PROCED W/IMAGE GUIDANCE BASED ON CT/MRI IMAGES (Right; Right) Miguel Bennett MD - Posted 10/26/2016 (5yr) ARTHROSCOPY KNEE ARTICULAR CARTILAGE SHAVING OR DEBRIDEMENT (Right) Miguel Bennett MD - Posted 10/09/2015 (6yr) ARTHROSCOPY KNEE W/ MENISCECTOMY MEDIAL (Right) Miguel Bennett MD - Posted PAIN EVALUATION 01/13/2022 1301 Pain Level: 7 Pain Location: Knee-Right Description: Stabbing/Not Incision;Throbbing Duration Units: Weeks Frequency: Continuous Intervention/Comfort measure: Medication;Cold IMPRESSION: Slow post-operative recovery. PLAN: Continue current conservative treatment. Rest, Ice, Compression, Elevation PRN. Patient Reassurance: Normal post-operative course discussed with patient. Progress appears to be with the normal speed of recovery. Patient reassured and supported. All questions answered. Follow up 6 weeks X-Rays not needed Ruddy Minh MyersPeg presents today for a an intermediate post-op visit ACTIVE PROBLEM LIST Rsd (Reflex Sympathetic Dystrophy) Essential Hypertension S/P Insertion of Spinal Cord Stimulator Complex Tear of Medial Meniscus of Right Knee As Current Injury Chronic Postoperative Pain Tear of Lateral Meniscus of Right Knee, Current Rupture of Anterior Cruciate Ligament of Right Knee Headaches Class 2 Severe Obesity Due to Excess Calories With Serious Comorbidity and Body Mass Index (Bmi) of 35.0 to 35.9 in Adult ([facility]) Post-Traumatic Osteoarthritis of Right Knee Tobacco Smoker, 1 Pack of Cigarettes Or Less Per Day S/P Knee Replacement Status post op: BMI: There is no height or weight on file to calculate BMI. Post-operative recovery was complicated by uneventful/none. Readmission(s) since surgery (90 days post)? No ED Visits & Hospitalizations - Last 180 days 12/01/21 Miguel Bennett MD, ME2E S/P total knee arthroplasty, right, Admission (Discharged) Patient rates their condition as improving and but slowly. Does the patient still experience pain? see nursing note section in Epic Chart Post Op discharge patient location: in home. Functional Assessment is as follows: has already started outpatient PT as of this visit. Functional difficulties: Interferes with sleep, Prolonged standing, Stair climbing, Arising from chair, and Walking. Pain Medication: Narcotic Current Opioids Analgesic Opioid Agonists Start End oxyCODONE IR (ROXICODONE) 5 mg immediate release tablet 02/07/2022 02/17/2022 Sig - Route: Take 1 tablet by mouth every 8 hours as needed for pain for up to 10 days. - ORAL Earliest Fill Date: 02/07/2022 Currently Ambulating with: a cane Physical Therapy Data 12/29/2021 01/06/2022 01/19/2022 Surgical procedure R TKA 12/01/21 - - Surgical procedure date 12/01/2021 12/01/2021 12/01/2021 Weight bearing status - - - AROM R comment - - - AROM L comment - - - AROM R knee extension - - - AROM R knee flexion 90 110 115 AROM L knee extension - - - AROM L knee flexion - - - PROM R knee extension -4 0 - PROM R knee flexion 105 115 119 Therapist that will oversee plan of care Cindy Burch Prognosis Good - - Frequency 2x/week - - Duration 8 weeks - - Total number of visits 16 - - Planned treatment interventions Therapeutic exercise (53550);Neuromuscular re-education (85458);Manual therapy (84309);Therapeutic activities (17407);Self-halfway management (50792);Gait Training (43912);Patient/Family/Caregiver Education - - Plan for next visit Assess ROM progress. Gait training with striaght cane or single crutch Continue progressing AAROM and AROM as tolerated. Progress to standing and gait as symptoms reduce. Continue functinal strength and balance training Provider signed Cindy Burch - - EXAM: POST OP KNEE Right Post-Operative Knee Ambulates with a limp favoring the right. SKIN: Appropriate postop appearance and No evidence of erythema, warmth, discharge or drainage. Range of motion is 10 degrees in extension and 100 degrees of flexion. Extension La degrees Pain with ROM: No There is Slight effusion. Mal-alignment: No Tender to the palpation of globally soft tissues Neurovascular Status: Sensation Intact, Moves foot and ankle up & down, and 2+ dorsalis pedis Stability:Anterior/Posterior- Yes, stable and Varus/Valgus- Yes, stable Quad strength: improving Imagin. Implants are well aligned. Implants are well fixed. Provider: Miguel Bennett MD Completed by: Miguel Bennett MD documented in this encounter [facility] 01-11-2022 Note HNO ID: [id number] Author: Yuly Polanco MA Service: ? Author Type: An/Ssn 2 4 Operator Type: Progress Notes Filed: 01/11/2022 8:41 AM Note Text: All information left on patients vm. Advised pt. To call back letting us know if he is willing to start a statin medication. Yuly Polanco MA [facility] 01-06-2022 Note HNO ID: [id number] Author: Cindy Burch PT Service: ? Author Type: Physical Therapist Type: Progress Notes Filed: 01/06/2022 2:30 PM Note Text: Episode Visit Count: 2 Therapist That Will Accept/Oversee The Plan Of Care: Cindy Burch Start of Care Date: 12/29/21 Onset Date: 12/01/21 Plan of Care Certification Date: 12/29/21 Next Certification Due Date: 02/02/22 REHABILITATION AND SPORTS THERAPY PHYSICAL THERAPY TREATMENT NOTE ASSESSMENT: Ruddy Ruvalcaba tolerated the session with decreased activity tolerance due to pain. He demonstrated improvements in AAROM and AROM of R knee flexion as well as PROM knee extension. The patient will continue to benefit from ongoing skilled physical therapy to progress toward set goals. PLAN FOR NEXT VISIT: Continue progressing AAROM and AROM as tolerated. Progress to standing and gait as symptoms reduce. SUBJECTIVE: Patient Reason for Visit: Pt. presents with complaints of severe knee pain being the reason he had to cancel last visit. He has contacted surgeon and has a scheduled visit next week. He has been doing what he is able with the HEP exercises. He has tried ice, elevation, pain medication as prescribed which dull the symptoms but he expresses concern that his pain intensity remains high. Pain: Pain Pain Level: 8 Pain Location: Knee - Right Post Treatment Pain Post Treatment Pain Level: No Change Post Treatment Pain Location: Knee - Right OBJECTIVE MEASURES WITH LEVEL OF FUNCTION: LE AROM R Knee Flexion: 110 Degrees (improved with continued reps AROM) LE PROM R Knee Extension: 0 Degrees R Knee Flexion: 115 Degrees TREATMENT: Therapeutic Exercise: 1: SciFit level 2 5 min seat 10 (subjective taken.) 2: Supine R quad sets with heel wedge 10x5 sec hold 3: supine R knee flexion AROM 3x5 4: supine R knee AAROM with strap 3x5, 5 sec hold (measurement every 5th rep) 5: supine SAQ 2x8, 3 sec eccentric control return to start R knee Skilled Intervention: Patient was educated in proper exercise technique and purpose for exercises. Reviewed and educated patient on additions/changes for home exercise program as above (*). Skilled judgment was provided in selection of appropriate interventions. Provided written instruction for home exercise program to facilitate proper performance and compliance. Additional time necessary for rest and pt. education due to reports of severe increase in symptoms. Educated patient on rationale for performing exercises in regards to decreasing fatigue , increase ease of ADL, and ROM and function . Patient education as noted. Self-Custodial Management: 1: *pt. requires instruction during visit today to use his crutch, Discussed reasoning for continued use of AD until gait becomes normal Skilled Intervention: Skilled judgment in the selection of proper modification for activity of daily living/home management based on clinical presentation, deficits, and needs. Reviewed patient specific diagnosis in relation to activities of daily living/home management. Activity progression based on professional judgement. Reviewed and educated patient on additions/changes for home program as noted above with an (*). Correct performance of home program was facilitated with verbal, visual, and tactile cueing. Billing Therapeutic Exercise Treatment Minutes: 30 Self-Care/Home Management Treatment Minutes: 10 Total Treatment Time Minutes (timed/untimed): 40 Cindy Burch, PT [facility] 01-06-2022 History of Present illness Narrative Episode Visit Count: 2 Therapist That Will Accept/Oversee The Plan Of Care: Cindy Burch Start of Care Date: 12/29/21 Onset Date: 12/01/21 Plan of Care Certification Date: 12/29/21 Next Certification Due Date: 02/02/22 REHABILITATION AND SPORTS THERAPY PHYSICAL THERAPY TREATMENT NOTE ASSESSMENT: Ruddy Ruvalcaba tolerated the session with decreased activity tolerance due to pain. He demonstrated improvements in AAROM and AROM of R knee flexion as well as PROM knee extension. The patient will continue to benefit from ongoing skilled physical therapy to progress toward set goals. PLAN FOR NEXT VISIT: Continue progressing AAROM and AROM as tolerated. Progress to standing and gait as symptoms reduce. SUBJECTIVE: Patient Reason for Visit: Pt. presents with complaints of severe knee pain being the reason he had to cancel last visit. He has contacted surgeon and has a scheduled visit next week. He has been doing what he is able with the HEP exercises. He has tried ice, elevation, pain medication as prescribed which dull the symptoms but he expresses concern that his pain intensity remains high. Pain: Pain Pain Level: 8 Pain Location: Knee - Right Post Treatment Pain Post Treatment Pain Level: No Change Post Treatment Pain Location: Knee - Right OBJECTIVE MEASURES WITH LEVEL OF FUNCTION: LE AROM R Knee Flexion: 110 Degrees (improved with continued reps AROM) LE PROM R Knee Extension: 0 Degrees R Knee Flexion: 115 Degrees TREATMENT: Therapeutic Exercise: 1: SciFit level 2 5 min seat 10 (subjective taken.) 2: Supine R quad sets with heel wedge 10x5 sec hold 3: supine R knee flexion AROM 3x5 4: supine R knee AAROM with strap 3x5, 5 sec hold (measurement every 5th rep) 5: supine SAQ 2x8, 3 sec eccentric control return to start R knee Skilled Intervention: Patient was educated in proper exercise technique and purpose for exercises. Reviewed and educated patient on additions/changes for home exercise program as above (*). Skilled judgment was provided in selection of appropriate interventions. Provided written instruction for home exercise program to facilitate proper performance and compliance. Additional time necessary for rest and pt. education due to reports of severe increase in symptoms. Educated patient on rationale for performing exercises in regards to decreasing fatigue , increase ease of ADL, and ROM and function . Patient education as noted. Self-Custodial Management: 1: *pt. requires instruction during visit today to use his crutch, Discussed reasoning for continued use of AD until gait becomes normal Skilled Intervention: Skilled judgment in the selection of proper modification for activity of daily living/home management based on clinical presentation, deficits, and needs. Reviewed patient specific diagnosis in relation to activities of daily living/home management. Activity progression based on professional judgement. Reviewed and educated patient on additions/changes for home program as noted above with an (*). Correct performance of home program was facilitated with verbal, visual, and tactile cueing. Billing Therapeutic Exercise Treatment Minutes: 30 Self-Care/Home Management Treatment Minutes: 10 Total Treatment Time Minutes (timed/untimed): 40 Cindy Burch PT documented in this encounter [facility] 01-03-2022 Miscellaneous Notes No Show Documentation Ruddy Ruvalcaba no showed for an appointment on 01/03/2022 with Jossy Natarajan APRN.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 at 9:20am. He was scheduled for F/U for HTN. I called and left message with the patient regarding his missed appointment. Ruddy did not state the reason that he missed his appointment I left message. Resources discussed/offered to patient:, left message to call and reschedule. No show determined to be fault of patient: Yes This is the patients first no show in the last 12 months. Patient was not rescheduled at this time Letter mailed : Yes Is this the Third or Fourth No Show ? No Keiry Brewer January 03, 2022 1:24 PM documented in this encounter [facility] 12-29-2021 History of Present illness Narrative Episode Visit Count: 1 Therapist That Will Accept/Oversee The Plan Of Care: Cindy Burch Start of Care Date: 12/29/21 Onset Date: 12/01/21 Plan of Care Certification Date: 12/29/21 Next Certification Due Date: 02/02/22 Patient Identified by Name and Date of : Yes REHABILITATION AND SPORTS THERAPY PHYSICAL THERAPY EVALUATION PLAN OF CARE: Assessment: Ruddy Ruvalcaba presents with diagnosis of s/p R TKA that interferes with working;stair negotiation;walking in the community;bending;lifting;heavy exertion;kneeling;squatting;drivin g;weight bearing;sleeping . He presents with impairments in ADL's, balance, flexibility, gait, independence in exercise, joint mobility, overall function, patient reported outcome measures, posture, range of motion, sensation, soft tissue healing, strength , symptom management, and tissue tenderness. Prognosis for therapy is Good due to: current objective clinical presentation;acuteness of condition;good support system/ coping skills;within-session changes . He will benefit from skilled therapy services to meet the goals established for this plan of care as noted below. Goals for Episode of Care: created on 12/29/21 through 02/23/22 [place] in home exercise program. Patient will decrease pain to 1-2/10 with functional activities to allow patient to improve ambulation, transfers, and standing tolerance for ADLs. Patient will increase active ROM of R knee to 0-120 extension- flexion to allow pt to to improve postural alignment, to improve performance of ADLs, to improve gait mechanics / gait pattern , and to decrease falls risks . Perform driving and prolonged sitting work activities with decreased report of symptoms/pain in 8 weeks. Patient will Improve Timed Up and Go to <6 seconds without AD to demonstrate decreased risk of falling. Patient will improve 30 sec time sit to stand reps to >17 reps to demonstrate improvement in functional lower extremity strength. Improve postural awareness. Normal gait. Reciprocal stair negotiation. Patient will ascend and descend 4 4 steps with rail. with no device independently and safe technique demonstrating step to pattern. Patient will increase balance to 10 seconds for single limb stance on RLE and 10 seconds for single limb stance on LLE. Patient Goals: golf before winter Planned Interventions, Frequency, and Duration: Current Frequency: 2x/week Duration: 8 weeks Total Number of Visits Planned: 16 Planned Treatment Interventions: Therapeutic exercise (51836);Neuromuscular re-education (63433);Manual therapy (25259);Therapeutic activities (22792);Self-halfway management (69131);Gait Training (19026);Patient/Family/Caregiver Education PLAN FOR NEXT VISIT: Assess ROM progress. Gait training with striaght cane or single crutch Patient demonstrates good understanding of plan of care and treatment. The above goals and plan of care were discussed and agreed upon by patient/family. SUBJECTIVE: Ruddy Ruvalcaba is a 51 year old male seen today for for R knee pain s/p R TKA 12/01/[address] Bennett. Pt. was d/c home with home care PT. He now presents to out patient PT to further progress functional strength and mobility of R knee to return to working outside the home and golf. 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 Hobbies / Interests: golf Intake Information: Prescription present Previous Treatment: Physical Therapy ;Surgery ;Ice ;Pain meds Falls Interview: No positive findings with falls interview Pain: Pain Pain Level: 8 Pain Location: Knee - Right Description: Aching Post Treatment Pain Post Treatment Pain Level: 9 Post Treatment Pain Location: Knee - Right PROMIS Scales Higher is Better 11/10/2021 11/28/2021 Phys Func - Score - 35 (moderate dysfunction) Phys Func - Percentile - 7 % GH Physical - Score 39.8 (Fair) - GH Physical - Percentile 15 % - GH Mental - Score 59 (Excellent) - GH Mental - Percentile 82 % - Self-Eff Symptom - Score - 39 (Low) Self-Eff Symptom - Percentile - 14 % T-scores: mean of general population = 50. 5 points is clinically meaningfully difference Percentiles provide an indication of how the patient's score ranks in relation to the general population. Higher percentile rankings indicate better function/quality of life. 50th percentile is the average of the general population and indicates half of respondents had a worse score. T-scores: mean of general population = 50. 5 points is clinically meaningfully difference Percentiles provide an indication of how the patient's score ranks in relation to the general population. Higher percentile rankings indicate better function/quality of life. 50th percentile is the average of the general population and indicates half of respondents had a worse score. OBJECTIVE MEASURES WITH LEVEL OF FUNCTION: Knee Observations R Knee Presents with: Incision R Incision: no signs of infection, numbness Sensation - Lower Extremity LE Light Touch Sensation: Impaired LE AROM R Knee Flexion: 90 Degrees LE PROM R Knee Extension: -4 Degrees R Knee Flexion: 105 Degrees (AAROM with strap, increased to 108 with repeated reps) Gait Gait: Modified Independent Gait Distance (feet): 50 Gait Device: Crutches (single crutch) Gait Deviations: Right Lower Extremity Gait Deviations Right Lower Extremity: Knee flexion during stance increased;Knee stability during stance phase decreased;Lacks full knee extension during terminal swing;Lacks hip extension beyond mid-stance;Push off during terminal stance decreased;Stance time decreased;Weight bearing decreased;Heel strike during initial stance decreased (cues to use crutch LUE) Gait Observation: cues given for heel strike, and using crutch with LUE. Step-to progressing to step through Functional Performance Test Results Assistive Device: Crutches (single crutch) 30 Second Chair Stand Test: 9 reps Timed Up and Go (sec): 23 sec Timed Up and Go - Condition 2 (sec) : 17.8 Education: Education Learning Preferences: Demonstration;Explanation;Performa nce;Printed Materials Barriers: Acuity of Illness Learning/educational needs: Plan of Care;Home exercise program;Posture;Gait Training;Safety;Crutch Training;Body Mechanics Education Provided: Yes, see treatment interventions for education provided Education Provided To: Patient Education Mode/Type: Demonstration;Explanation/Discussi on;Literature/Printed Materials;Performance Response to Education/Teach Back: States/Identifies;Return Demonstration TREATMENT: PT Treatment Interventions: Therapeutic Exercise;Self-Custodial Management Evaluation Therapeutic Exercise: 1: supine quad sets 2x10, 3-5 sec hold R knee 2: supine R knee heel slide 2x10 AROM, measurements taken 3: supine R knee AAROM with strap 2x10, measurements taken Skilled Intervention: Patient was educated in proper exercise technique and purpose for exercises. Skilled judgment was provided in selection of appropriate interventions. Correct performance of therapeutic exercises was facilitated with verbal, visual, and tactile cuing. Additional time necessary for providing pt. education due to initial evaluation. Educated patient on rationale for performing exercises in regards to decreasing fatigue , increase ease of ADL, and ROM and function . Patient education as noted. Self-Custodial Management: 1: *discussed taking Rx pain medication 1 hour to 90 min prior to visit for optimal pain managment prior to PT visit and improved tolerance for optimal outcomes 2: *discussed quality more important over quanity of reps 3: *discussed continue current HEP, but with emphasis on first goal to restore ROM 4: *discussed using a clean garbage bag supine on bed to reduce friction and also using a strap to improve ROM R knee flexion Skilled Intervention: Skilled judgment in the selection of proper modification for activity of daily living/home management based on clinical presentation, deficits, and needs. Reviewed patient specific diagnosis in relation to activities of daily living/home management. Activity progression based on professional judgement. Correct performance of home program was facilitated with verbal and visual cueing. Billing * Evaluation Low Complexity: 1 Unit Therapeutic Exercise Treatment Minutes: 15 Self-Care/Home Management Treatment Minutes: 10 Total Treatment Time Minutes (timed/untimed): 45 Cindy Burch PT documented in this encounter [facility] 12-24-2021 Miscellaneous Notes Rx has been refilled by Monica Venegas PA-C. Patients spouse notified Rx was sent to pharmacy. Patient called requesting a refill on his pain medication, states this is a 3rd request since 12/22/21, requested originally via [employer]. Patient states has been out since yesterday and is alternating with Tylenol and ibuprofen and it is not helping. Ruddy# [phone] documented in this encounter [facility] 12-16-2021 Miscellaneous Notes Jorge Cano I discharged Mr Ruvalcaba form homecare PT today as he has met all of his goal. There is still an issue with his elevated BP Despite the increase in his medications for HTN. 164/100 at rest. Thank you documented in this encounter [facility] 12-16-2021 Miscellaneous Notes Jorge Bennett I've D/C Mr Ruvalcaba today from home care PT. He would like to start outpt PT as soon as possible Thank you Suad documented in this encounter [facility] 12-16-2021 Miscellaneous Notes SITUATION: only patient present during today's visit. patient reports the following since the last homecare visit: medications/allergies--no changes, no fall. patient reports uses crutches or FWW. He did see Rachael her PCP's PA about his HTN, and she made changes to his meds, he sees her again 01/04 and lab work has been ordered. He was told on Monday that orders were put in for outpt PT but hasn't heard anything BACKGROUND: Diagnoses (reason for Home Care): R TKR Weight Bearing/Precaution Changes: no changes ASSESSMENT: Focus of visit: finalize HEP and D/C Telephone communication sent to Rachael Natarajan that pt is interested in outpt PT. Physical therapy discharged: goals achieved. Functional performance at discharge - bed mobility independent, transfers independent, ambulation independent and stairs independent. Plan of care, goals, and discharge reviewed and agreed upon with patient and/or caregiver. RECOMMENDATION: Patient discharged from home health services. Instructions to include:home exercise program as directed and begin outpatient therapy TBD See intervention summary for intervention/education details. documented in this encounter [facility] 12-15-2021 Miscellaneous Notes Last OV 12/13/2021 Next OV 01/13/2022 Patient electronically sent a request for the following prescription(s) Requested Prescriptions Pending Prescriptions Disp Refills oxyCODONE IR (ROXICODONE) 5 mg immediate release tablet 50 tablet 0 Sig: Take 1-2 tablets by mouth every 6 hours as needed for pain. Patient aware RX will be sent to pharmacy. No need to notify patient. Please review. Rachael Cano MA documented in this encounter [facility] 12-11-2021 Miscellaneous Notes SITUATION: spouse present during today's visit. patient reports the following since the last homecare visit: medications/allergies--dr increased lisinopril dose and added norvasc, no fall. patient reports doing my exercises all the time, all day long. Possibly doing too much with walking and the steps . Reports having hard time getting comfortable trying to sleep in bed, so tries to sleep on couch. BACKGROUND: Diagnoses (reason for Home Care): R TKR Weight Bearing/Precaution Changes: no changes ASSESSMENT: Focus of visit HEP/ROM progression, BP checks throughout, gait. Pacing activity and pain mngmt. Instruction for sleep positioning for comfort. Plan of care, goals, and visit frequency reviewed and agreed upon with patient and/or caregiver. Current Discharge Plan: outpatient rehab Anticipate discharge by 12/16/21 RECOMMENDATION: Next visit to focus on HEP/ROM progression per tolerance, BP monitoring, pain mngmt. See intervention summary for intervention/education details. documented in this encounter [facility] 12-10-2021 History of Present illness Narrative CHIEF COMPLAINT: Ruddy Ruvalcaba is a 51 year old male who presents for hypertension. I reviewed past medical, surgical, social, and family histories today and updated chart. Allergies, chronic medications, and supplements were also reviewed. He was recently seen for hypertension and was started on Lisinopril 20 mg daily prior to a right total replacement. On the day of surgery his BP was 200/100's and surgery was almost postponed. He stayed overnight and his BP had come down but was still elevated. His home health care nurse found his home BP to be high again and the patient was instructed to take take 2 20 mg Lisinopril until he could come in for an appointment. He has been taking 40 mg daily but states he thinks it's making him urinate more. He denies any burning with urination or hematuria. He did have a catheter while in the hospital. He denies any chest pain, SOB, dizziness, palpitations, leg swelling but does endorse having headaches. The history is provided by the patient. No procurement buyer was used. Hypertension The current episode started more than 1 year ago. The problem has been waxing and waning since onset. The problem is uncontrolled. Associated symptoms include headaches. Pertinent negatives include no anxiety, blurred vision, chest pain, malaise/fatigue, neck pain, orthopnea, palpitations, peripheral edema, PND, shortness of breath or sweats. PAST MEDICAL HISTORY Diagnosis Date Essential hypertension 10/01/2015 Kidney stones Reflex sympathetic dystrophy of other specified site S/P insertion of spinal cord stimulator 10/01/2015 PAST SURGICAL HISTORY Procedure Laterality Date ARTHRS KNE SURG W/MENISCECTOMY MED/LAT W/SHVG Right 10/09/2015 Right knee arthroscopy medial meniscectomy ARTHRS KNE SURG W/MENISCECTOMY MED/LAT W/SHVG Right 10/26/2016 ARTHRS KNEE DRLG OSTEOCHOND DISSECANS INT FIXJ Right 10/09/2015 PF and medial distal femoral chondroplasties COLONOSCOPY FLX DX W/COLLJ SPEC WHEN PFRMD 11/14/2018 Colonoscopy CYSTO W LITHOTRIPSY 2013 renal calculi x 2 HERNIA REPAIR W/MESH 1999's PAST SURGICAL HISTORY OF nose-reconstruction PAST SURGICAL HISTORY OF Left 80's hand - plate and screws PAST SURGICAL HISTORY OF Left 80's humerous fx PAST SURGICAL HISTORY OF Right 90's Knee scope x's2 PAST SURGICAL HISTORY OF Left scope x's 2 knee PAST SURGICAL HISTORY OF Left acl repair 3x's TOTAL KNEE REPLACEMENT Right 12/01/2021 Right total robotic knee replacement Social History Tobacco Use Smoking status: Every Day Packs/day: 0.50 Types: Cigars, Cigarettes Start date: 10/20/1988 Smokeless tobacco: Never Tobacco comments: 1 ppd since 2011 Vaping Use Vaping Use: Never used Substance Use Topics Alcohol use: No Drug use: No ALLERGIES Allergen Reactions Aspirin Vomiting Family History Problem Relation Age of Onset other (negative) Father Current Outpatient Medications Medication Sig Dispense Refill oxyCODONE IR (ROXICODONE) 5 mg immediate release tablet Take 1-2 tablets by mouth every 6 hours as needed for pain. 50 tablet 0 acetaminophen (TYLENOL) 500 mg tablet Take 2 tablets by mouth every 8 hours as needed for pain. 90 tablet 0 ascorbic acid, vitamin C, (VITAMIN C) 500 mg tablet Take 1 tablet by mouth twice daily with meals for 27 doses. 27 tablet 0 aspirin, enteric coated (ASPIRIN, ENTERIC COATED) 81 mg EC tablet Take 1 tablet by mouth twice daily for 28 days. 56 tablet 0 docusate sodium (COLACE) 100 mg capsule Take 1 capsule by mouth twice daily as needed for constipation. 60 capsule 0 polyethylene glycol 3350 (MIRALAX) 17 gram/dose powder Take 17 g by mouth once daily as needed for constipation for up to 10 days. Dissolve dose in 4 - 8 ounces of liquid and take as directed. 238 g 0 lisinopril (ZESTRIL, PRINIVIL) 20 mg tablet Take 1 tablet by mouth once daily. (Patient taking differently: Take 20 mg by mouth twice daily.) 30 tablet 2 No current facility-administered medications for this visit. Review of Systems Constitutional: Negative for appetite change, chills, diaphoresis, fatigue, fever, malaise/fatigue and unexpected weight change. Eyes: Negative for blurred vision. Respiratory: Negative for cough, chest tightness, shortness of breath and wheezing. Cardiovascular: Negative for chest pain, palpitations, orthopnea, leg swelling and PND. Gastrointestinal: Negative. Genitourinary: Positive for frequency. Negative for dysuria, flank pain, hematuria and urgency. Musculoskeletal: Positive for arthralgias. Negative for neck pain. Skin: Negative. Neurological: Positive for headaches. Negative for dizziness and light-headedness. BP 172/98 Pulse 76 Temp 98 Resp 18 Ht 5' 10 (1.78m) Wt 241 lb (109.3kg) SpO2 98% BMI 34.58 kg/(m^2). Physical Exam Vitals and nursing note reviewed. Constitutional: General: He is not in acute distress. Appearance: He is obese. Eyes: Pupils: Pupils are equal, round, and reactive to light. Cardiovascular: Rate and Rhythm: Normal rate and regular rhythm. Heart sounds: Normal heart sounds. No murmur heard. Pulmonary: Effort: Pulmonary effort is normal. Breath sounds: Normal breath sounds. Musculoskeletal: Cervical back: Neck supple. Right knee: Laceration (surgical incision) present. No swelling, effusion or erythema. Right lower leg: No edema. Left lower leg: No edema. Skin: General: Skin is warm and dry. Neurological: Mental Status: He is alert and oriented to person, place, and time. Psychiatric: Mood and Affect: Mood normal. Speech: Speech normal. Cognition and Memory: Cognition normal. ASSESSMENT/PLAN: 1. Essential hypertension - ICD9: 401.9, ICD10: I10 (primary diagnosis) - poor control - Continue current medication(s)- Lisinopril 40 mg daily - Begin amlodipine (Norvasc) 10 mg daily - Encouraged dietary sodium restriction/DASH diet - Recommended regular aerobic exercise. - Recommend home blood pressure monitoring, to bring results in on next visit - Recheck in 3 weeks, sooner should new symptoms or problems arise. - Goal of BP <130/80 - Patient counselled on smoking cessation. - Recommended no refined sugar, low refined starch, healthy oil intake (olive oil), healthy protein (fish) along the lines of the Mediterranean diet. - LISINOPRIL 40 MG TABLET - AMLODIPINE 10 MG TABLET 2. Urinary frequency - ICD9: 788.41, ICD10: R35.0 Acute - Unable to give sample in office, will take to lab when able to. - Patient education for prevention given - UA WITH CULTURE IF INDICATED 3. Tobacco smoker, 1 pack of cigarettes or less per day - ICD9: 305.1, ICD10: F17.210 - Cessation encouraged. - Physiologic and physical aspects of tobacco addiction as well as strategies for quitting were discussed. - Counseling was given focusing on the harmful effects of this addiction especially given the patient's medical condition(s) which will be worsened because of the chemicals in tobacco. - Counseling was given 3-4 minutes. New medication(s) prescribed today: Yes: Norvasc. Discussed new medication dosage, usage, goals of therapy, and side effects. Patient has been apprised of any potential drug interactions to be aware of. Patient expresses understanding. Counseling completed in adopting health behaviors such as avoiding excessive alcohol use, avoid tobacco use, improve nutrition, and engage in physical activities. Copy of written care plan, clinical summary, treatment plan, new medications, goals, and self management requirements were given to patient. Jossy Natarajan APRN.AINSLEY documented in this encounter [facility] 12-08-2021 Miscellaneous Notes Addended by: OMNICA VENEGAS on: 12/08/2021 02:09 PM Modules accepted: Orders OP PT order placed. Removed surgical bandage today. No concerns. Picture obtained and uploaded to chart. Would like to schedule patients OP PT to begin at completion of Home Care PT. Can you please enter orders so I can get that scheduled for him? Thanks documented in this encounter [facility] 12-08-2021 Miscellaneous Notes SITUATION: spouse present during today's visit. patient and caregiver reports the following since the last homecare visit: medications/allergies--no changes, no fall. patient reports he has an appointment tomorrow w/ Dr to address BP.. States swelling in leg is getting better BACKGROUND: Diagnoses (reason for Home Care): RTKR Weight Bearing/Precaution Changes: no changes ASSESSMENT: Focus of visit BP checks before and after exercises. instructed patient and (nurse) to continue to monitor BP and to call Dr or 911 if ant symptoms arise. Both voiced understanding. Responded well to step flexion stretch w/ reports of decreased knee stiffness after. Bandage removal Plan of care, goals, and visit frequency reviewed and agreed upon with patient and/or caregiver. Current Discharge Plan: outpatient rehab Anticipate discharge by 12/16/21 RECOMMENDATION: Next visit to focus on BP checks, add standing calf raises and hamstring curls if able See intervention summary for intervention/education details. documented in this encounter [facility] 12-06-2021 Miscellaneous Notes . documented in this encounter [facility] 12-06-2021 Miscellaneous Notes SITUATION: significant other present at beginning of today's visit. patient reports he is still staying on the main level , they are not sleeping weel on the couches so they plan to go upstairs tonight. BP has remained high over the weekend. They are calling the primary this am to get an appt. He is still taking 2 lisinopril per the instructions fom the virtualist Pt has just woken u on my arrival and i had him take his morning meds (which included the lisinopril and pain meds) BACKGROUND: Diagnoses (reason for Home Care): s/p rt TKA 12/01 Past Medical History: HTN, multiple bilateral knee surgeries, RSD left leg after past surgery, spinal cord stimulator, headaches, smoker Weight Bearing or Surgical Precautions: WBAT rt ASSESSMENT: Reviewed HEP and provided AA thoguhout as he is still very limited in active motion Patient Goal: walk without rt knee pain Patient will benefit from continued physical therapy to address the following deficits: strength, balance, gait, endurance, rt knee joint ROM, transfers, stair negotiation, aerobic capacity and bed mobility. Left mesage with primary to notify of BP and to schedule an appt Current Discharge Plan: outpatient rehab. Anticipate discharge by 12/18/21 RECOMMENDATION: Next visit to focus on progression of TKA hep instr, gt training w/ crutches, monitor bp. See intervention summary for intervention/education details. documented in this encounter [facility] 12-05-2021 Miscellaneous Notes PT start of care visit completed 12/04. Pt underwent rt TKA surgery 12/01 and dc'd home 12/02. PMH includes multiple bilateral knee surgeries, RSD left leg after 1 surgery, spinal cord stimulator, HTN, smoker. Pt states he had several episodes of high bp in the hospital postop. He was started on lisinopril about a week ago. Lives w/ significant other in a 2 story house w/ bedroom and full bathroom upstairs. No bathroom on first floorso bedside commode placed in living room. 3 front entry steps without railing. Prior to surgery, pt was walking without a device w/ a great deal of pain. During visit today, pt's bp was 200/90 at rest. Pt denied headache or chest pain/pressure. Called virtualist who advised taking a second lisinopril today and keep checking his bp over the next few days. Pt has a followup visit scheduled w/ drain technician mid December but if bpremains high, he may benefit from trying to see them sooner. Plan is to continue PT 3w1,2w1 for functional mobility, strength, ROM, balance, endurance, and safety training. Postop dressing to be removed postop day 7 (12/08) per orders. No visible drainage or signs of infection noted this visit. Postop dressing intact. Pt follows up w/ ortho 12/13. He will likely benefit from outpatient PT after homecare dc, although he states he has not discussed w/ surgeon yet. Please call me with any questions. Natividad, MJ SITUATION: significant other present at beginning of today's visit. patient reports he slept downstairs last night but wants to go up to his bed tonight. BACKGROUND: Diagnoses (reason for Home Care): s/p rt TKA 12/01 Past Medical History: HTN, multiple bilateral knee surgeries, RSD left leg after past surgery, spinal cord stimulator, headaches, smoker Weight Bearing or Surgical Precautions: WBAT rt ASSESSMENT: Patient evaluated by [facility] physical therapy. Reviewed and explained homecare services. Plan of care, goals, and visit frequency developed, reviewed, and agreed upon with patient and/or caregiver. Called virtualist during visit d/t high resting bp (200/90). Virtualist physician advised pt to take 2 lisinopril today instead of 1. Pt has followup appt w/ drain technician in mid December. Advised pt to call physician if high bp readings continue (he has a bp cuff) to see if appt should be moved up. Patient Goal: walk without rt knee pain Patient will benefit from continued physical therapy to address the following deficits: strength, balance, gait, endurance, rt knee joint ROM, transfers, stair negotiation, aerobic capacity and bed mobility. Current Discharge Plan: outpatient rehab. Anticipate discharge by 12/18/21 RECOMMENDATION: Next visit to focus on progression of TKA hep instr, gt training w/ crutches, monitor bp. administer TUG test (deferred today d/t high bp) Agreeable to PT See intervention summary for intervention/education details. documented in this encounter [facility] 12-02-2021 Note HNO ID: [id number] Author: Liliana Guerrero ([employer]) Service: Pharmacy Author Type: ? Type: Plan of Care Filed: 12/02/2021 1:46 PM Note Text: PHARMACY BEDSIDE DELIVERY SERVICE Patient Name: Ruddy Ruvalcaba The marked outpatient medications were Filled at: [place] and delivered to the patient's bedside to 279 Medication List START taking these medications ascorbic acid (vitamin C) 500 mg tablet Commonly known as: VITAMIN C Take 1 tablet by mouth twice daily with meals for 27 doses. X aspirin, enteric coated 81 mg EC tablet Commonly known as: ASPIRIN, ENTERIC COATED Take 1 tablet by mouth twice daily for 28 days. X docusate sodium 100 mg capsule Commonly known as: COLACE Take 1 capsule by mouth twice daily as needed for constipation. X oxyCODONE IR 5 mg immediate release tablet Commonly known as: ROXICODONE Take 1-2 tablets by mouth every 6 hours as needed for pain. X polyethylene glycol 3350 17 gram/dose powder Commonly known as: MIRALAX Take 17 g by mouth once daily as needed for constipation for up to 10 days. Dissolve dose in 4 - 8 ounces of liquid and take as directed. X CHANGE how you take these medications acetaminophen 500 mg tablet Commonly known as: TYLENOL Take 2 tablets by mouth every 8 hours as needed for pain. What changed: reasons to take this X CONTINUE taking these medications lisinopril 20 mg tablet Commonly known as: ZESTRIL, PRINIVIL Take 1 tablet by mouth once daily. You might also be taking other medications not listed above. If you have questions about any of your other medications, talk to the person who prescribed them or your Primary Care Provider. STOP taking these medications MOTRIN ORAL mupirocin 2 % ointment Commonly known as: BACTROBAN Liliana Guerrero ([employer]) PAGER: [phone] December 02, 2021 1:45 PM [facility] 12-02-2021 Note HNO ID: [id number] Author: Arash Abraham MD Service: General Internal Medicine Author Type: Physician Type: Progress Notes Filed: 12/02/2021 4:24 PM Note Text: INPATIENT CONSULT PROGRESS NOTES Patient Name: Ruddy Ruvalcaba DATE of SERVICE: 12/02/21 TIME of SERVICE: 7:06 CONSULTING SERVICE: Medicine Plan of care discussed with: Provider, RN, Patient. INTERVAL HPI: Uneventful night. Pain is fairly controlled. Patient seen and examined: Vitals/Meds/Labs/U/O reviewed Alert AND Oriented NO nausea, vomiting NOlight headedness, NO shortness of breathe, No wheezing Dry oral mucosa CVS - RRR Lungs - Clear to auscultation Abdomen - soft,Nontender, normal bowel sound LLE - Ankle No edema RLE - Ankle No edema MEDICATIONS: Current Facility-Administered Medications Medication Dose Route Frequency scopolamine - VERIFY patch OTHER q 8 H scopolamine - REMOVE PATCH OTHER ONCE lisinopril 20 mg tab(s) (ZESTRIL, PRINIVIL) 20 mg ORAL DAILY oxyCODONE IR 5-10 mg tab(s) (ROXICODONE) 5-10 mg ORAL q 3 H PRN acetaminophen 1,000 mg tab(s) (TYLENOL) 1,000 mg ORAL q 8 H ondansetron orally disintegrating 4 mg tab(s) (ZOFRAN ODT) 4 mg ORAL q 6 H PRN Or ondansetron (PF) 4 mg injection (ZOFRAN) 4 mg INTRAVENOUS q 6 H PRN magnesium hydroxide 400 mg/5 mL 30 mL (MOM) 30 mL ORAL DAILY PRN [START ON 12/03/2021] bisacodyl EC 10 mg tab(s) (DULCOLAX) 10 mg ORAL DAILY aluminum-magnesium hydroxide-simethicone 200-200-20 mg/5 mL 30 mL (MAALOX,MYLANTA,MAG-AL PLUS) 30 mL ORAL q 2 H PRN ascorbic acid (vitamin C) 500 mg tab(s) (VITAMIN C) 500 mg ORAL BID w MEALS docusate sodium 100 mg cap(s) (COLACE) 100 mg ORAL BID senna 17.2 mg tab(s) (SENOKOT) 17.2 mg ORAL AT BEDTIME aspirin, enteric coated 81 mg tab(s) 81 mg ORAL BID NaCl 0.9% iv flush bag 20 mL INTRAVENOUS PRN sodium chloride 0.9 % (flush) 3-5 mL (BD POSIFLUSH) 3-5 mL INTRAVENOUS q 12 H HYDROmorphone 1 mg injection (DILAUDID) 1 mg INTRAVENOUS q 3 H PRN PHYSICAL EXAM: Patient Vitals for the past 24 hrs: BP Temp Temp src Pulse Resp SpO2 12/02/21 0919 142/81 36.7 ?C (98.1 ?F) Oral 76 14 96 % 12/02/21 0527 152/79 36.6 ?C (97.9 ?F) Oral 82 16 98 % 12/02/21 0203 137/71 37 ?C (98.6 ?F) Axillary 88 20 96 % 12/02/21 0140 -- -- -- -- -- 90 % 12/01/21 2327 161/83 36.7 ?C (98.1 ?F) Oral 91 18 94 % 12/01/21 2037 147/89 -- -- 87 -- 94 % 12/01/21 1955 -- -- -- -- -- 96 % 12/01/21 1853 168/92 36.6 ?C (97.9 ?F) Oral 87 20 92 % 12/01/21 1837 142/85 36.5 ?C (97.7 ?F) Oral 80 16 96 % 12/01/21 1746 142/80 36.6 ?C (97.9 ?F) -- 83 16 91 % 12/01/21 1645 124/78 -- -- 78 16 98 % 12/01/21 1630 147/83 -- -- 75 21 97 % 12/01/21 1615 151/79 -- -- 79 16 98 % 12/01/21 1600 142/78 -- -- 79 18 96 % 12/01/21 1545 139/73 -- -- 76 18 97 % 12/01/21 1540 -- 37.2 ?C (99 ?F) Temporal Art -- -- -- 12/01/21 1530 169/80 -- -- 72 13 98 % 12/01/21 1515 197/96 -- -- 74 18 99 % 12/01/21 1500 (!) 204/96 -- -- 70 16 100 % 12/01/21 1445 186/93 -- -- 75 27 99 % 12/01/21 1430 129/101 36.4 ?C (97.5 ?F) -- 74 20 98 % 12/01/21 1120 (!) 212/110 -- -- 99 16 -- 12/01/21 1115 (!) 204/106 -- -- 79 18 98 % 12/01/21 1110 199/86 -- -- 89 18 98 % 12/01/21 1105 186/98 -- -- 86 20 96 % 12/01/21 1100 (!) 211/105 -- -- 82 18 98 % Body mass index is 35.15 kg/m?. DATA: CBC: No results for input(s): WBC, RBC, HB, HCT, PLT, MCV, MCH, MPV, RDW in the last 24 hours. Coags: No results for input(s): PT, INR, APTT in the last 24 hours. CMP: No results for input(s): NA, K, CHLOR, CO2, BUN, CREAT, GLUC, TPROT, CA, MG, ALBUMIN, TBILI, ALKPHOS, ALT, AST, ANION in the last 24 hours. ASSESSMENT AND PLAN: A. OA S/P - Total Knee Unilateral: right,DVT prophylaxis with aspirin P. Continue PT/OT hypertension, continue quinapril Suspect obstructive sleep apnea. Possible discharge today Home-going medication list reviewed SIGNATURE: Arash Abraham MD [facility] 12-02-2021 Note HNO ID: [id number] Author: Nilay Francois PA-C Service: Orthopaedic Surgery Author Type: Physician Patient Relations Director Type: Progress Notes Filed: 12/02/2021 8:36 AM Note Text: POSTOP NOTE ORTHOPAEDIC SURGERY SERVICE DATE: 12/02/2021 SERVICE TIME: 8:34 AM IMPRESSION/PLAN: S/P Procedure(s) (LRB): ROBOTIC ASSISTED TOTAL KNEE ARTHROPLASTY (Right) on 12/01/2021 Physical Therapy evaluation WBAT RLE DVT prophylaxis: with aspirin, additional anticoagulant is contraindicated due to bleeding risk and Intermittent pneumatic compression device (IPCD) Pain control Case Management for discharge planning Plan of care discussed with: Provider, RN, Patient. Patient Active Hospital Problem List: No active hospital problems. POST OPERATIVE COMPLICATIONS: Complicated by uneventful/none SUBJECTIVE: Patient states that they are comfortable Well Controlled knee(s) pain. Denies incisional pain. OBJECTIVE: VITAL SIGNS: BP 152/79 Pulse 82 Temp 36.6 ?C (97.9 ?F) (Oral) Resp 16 Ht 177.8 cm (5' 10 ) Wt 111.1 kg (245 lb) SpO2 98% BMI 35.15 kg/m? INTAKE AND OUTPUT: Intake/Output Summary (Last 24 hours) at 12/02/2021 0834 Last data filed at 12/02/2021 0739 Gross per 24 hour Intake 2025.44 ml Output 2625 ml Net -599.56 ml LABS: Hemoglobin Date Value Ref Range Status 11/15/2021 15.0 13.0 - 17.0 g/dL Final Hematocrit Date Value Ref Range Status 11/15/2021 42.6 39.0 - 51.0 % Final Platelet Count Date Value Ref Range Status 11/15/2021 305 150 - 400 k/uL Final WBC Date Value Ref Range Status 11/15/2021 10.24 3.70 - 11.00 k/uL Final Creatinine Date Value Ref Range Status 11/15/2021 0.96 0.73 - 1.22 mg/dL Final 10/01/2015 0.99 0.70 - 1.40 mg/dL Final Potassium Date Value Ref Range Status 11/15/2021 4.1 3.7 - 5.1 mmol/L Final 10/01/2015 4.1 3.5 - 5.0 mmol/L Final VTE Prophylaxis: Active VTE Risk Category Order: 12/01/211729 VTE RISK CATEGORY: SURGICAL HIGH RISK ([place], [place]) Active VTE Medication Orders: Anticoagulant AND Antiplatelet Medications (From admission, onward) Start Dose Route Frequency Last Action Ordered Stop 12/02/21 0900 aspirin, enteric coated 81 mg tab(s) (Surgical Risk Categories) 81 mg ORAL 2 TIMES DAILY Ordered 12/01/21 1716 -- Active VTE Prophylaxis Orders: 12/01/21 1730 PNEUMATIC COMPRESSION STOCKINGS ([place], [place]) PHYSICAL EXAMINATION: Right Lower Extremity: Dorsalis pedis pulses palpable. Posterior tibial pulses palpable. Dorsi flexion 5/5. Plantar flexion 5/5. Extensor hallucis extension: 5/5. Sensory intact to light touch L1-S1. Dressing clean, dry, and intact. Surgical site no drainage and Silverlon intact. Thigh is not swollen, calf is not tender, no signs of DVT or infection Problem Review and Assessment: Skin and Abdominal Wall: Patient monitored, no new events overnight Cardiovascular and Vascular: Patient monitored, no new events overnight Respiratory: Patient monitored, no new events overnight Endocrine and Metabolic: Patient monitored, no new events overnight Gastrointestinal: Patient monitored, no new events overnight Genitourinary and Nephrology: Patient monitored, no new events overnight Behavioral, Cerebrovascular and Nervous: Patient monitored, no new events overnight Infectious: Patient monitored, no new events overnight DATA: Diagnostic tests reviewed for today's visit: Most recent labs and imaging results. SIGNATURE: Nilay Francois PA-C PATIENT NAME: Ruddy Ruvalcaba DATE: December 02, 2021 TIME: 8:34 AM The patient has undergone major orthopedic surgery and participating in therapy. Pain cannot be managed within an average of 30 MED per day. Patient requiring average of higher than 30 MED per day in order to control pain and allow patient to actively and safely participate in therapy and this is the lowest dose consistent with patient's medical condition. Non-narcotic medication options have been discussed. In addition, the patient has been advised of the benefits and risks of the opioid (including the potential for addiction). Patient demonstrated understanding of risks versus benefits. [facility] 12-02-2021 Miscellaneous Notes INS staff advised patient to call [facility] Customer Service at [phone] and ask to speak to a [facility] Financial Counselor to discuss financial options or apply [facility]. S/W [facility] Service at [phone] and ask to speak to a [facility] Financial Counselor to discuss financial options or apply for [facility] lelo program. Advised of the information noted above. ANGEL Bourgeois 12/02/2021 10:18 AM documented in this encounter [facility] 12-01-2021 Note HNO ID: [id number] Author: Cecilio Shine APRN.BULK DRIVER Service: Anesthesiology Author Type: Nurse Branch Banker Type: Anesthesia Procedure Notes Filed: 12/01/2021 12:43 PM Note Text: ANESTHESIOLOGY PROCEDURE NOTE Airway General Information Procedure Start Time/Medication Administration: 12/01/2021 11:54 AM Patient location during procedure: OR Timeout Performed Pre-procedure: timeout performed Consent Obtained: Yes Patient identity confirmed: arm band and care medical director/head team physician Staffing BULK DRIVER: Cecilio Shine APRN.BULK DRIVER Indications and Patient Condition Indications for airway management: anesthesia Preoxygenated: yes anesthesia circuit Method: sleep Cricoid Pressure: No Manual In-Line Stabilization: No Difficult Mask: No Final Airway Details Final airway type: endotracheal airway Final Endotracheal Airway: ETT Cuffed: yes Successful intubation technique: direct laryngoscopy Blade: Phill Blade size: #4 ETT size (mm): 7.5 Measured from: lips Measurement (cm): 22 Placement verified by: chest auscultation and capnometry Cormack-Lehane Classification: grade I - full view of glottis Number of attempts at approach: 1 Failed airway: no Unrecognized esophageal intubation: no Airway not difficult SIGNATURE: Cecilio Shine APRN.CRNA PATIENT NAME: Ruddy Ruvalcaba DATE: December 01, 2021 TIME: 12:43 PM CSN: [id number] [facility] 12-01-2021 Miscellaneous Notes Welcome Home Call: a. Date and Time: 12:59 PM 12/01/2021 b. Contact name/relationship: Balbir Ruvalcaba (Spouse) c. Have you been active with any Home Care company in the last 60 days(such as help with bathing, filling medications, checking your blood pressure) ? No. d. Was patient given Flu shot this Season (After Nov,): No: Patient refused e. [facility] will be providing your care, are you agreeable to starting these services? Yes (yes or no) f. Do you have any upcoming appointments in the next few days, or restrictions to your schedule? No We would come to see you in 24-48* from your discharge today; Are you agreeable to a visit in that time frame? yes (Yes/ No (if no, when would you like to be seen?)) g. Caregiver: Patient is able to manage care independently Please keep our your medications both over the counter and prescribed out for the home care to review, your hospital discharge instructions and write down any questions you might have. In order to maintain a safe environment for our caregivers, [facility] requires any animals or weapons present in the home be located in a secured location. Our clinicians will call you the night before or the morning of the appointment. Their # may come up restricted but they'll leave a VM for you. In case you have any questions or concerns in the meantime, our # is [phone], option 1 Thank you for your time and have a great day. ANGEL Bourgeois documented in this encounter [facility] 11-29-2021 History of Present illness Narrative Episode Visit Count: 1 Therapist That Will Accept/Oversee The Plan Of Care: Jaime So PT Start of Care Date: 11/29/21 Onset Date: 11/30/19 Patient Identified by Name and Date of : Yes REHABILITATION AND SPORTS THERAPY PHYSICAL THERAPY EVALUATION PLAN OF CARE: Assessment: Ruddy Ruvalcaba presents with diagnosis of planned R TKA with same day d/c that interferes with rising from a chair;walking;stair negotiation. He presents with impairments in ADL's, gait, independence in exercise, overall function, range of motion, strength , and symptom management. Prognosis for therapy is Excellent due to: current objective clinical presentation;good overall health status;acuteness of condition;good support system/ coping skills;within-session changes. He will benefit from skilled therapy services to meet the goals established for this plan of care as noted below. Goals for Episode of Care: created on 11/29/21 through 12/06/21 Pt will fully understand all procedures related to same day d/c following R TKA, including safe transfers, all equipment, gait and stairs. [place] in home exercise program. Perform rising, walking and stairs without pain. Patient will Improve Timed Up and Go to 6-10 seconds to demonstrate decreased risk of falling. Normal gait. Reciprocal stair negotiation. Patient Goals: Be fully prepared for R TKA with same day discharge Planned Interventions, Frequency, and Duration: Current Frequency: 1 visit Duration: 1 visit Total Number of Visits Planned: 1 (Pt will return for outpatient post-op PT after homecare is completed. Re-Evaluation will be completed at that time and new plan of care established.) Planned Treatment Interventions: Therapeutic exercise (59145);Self-halfway management (33363);Gait Training (38217);Patient/Family/Caregiver Education;Functional training;Therapeutic activities (36214) PLAN FOR NEXT VISIT: Re-Evaluation for establishment of new plan of care. Patient demonstrates good understanding of plan of care and treatment. The above goals and plan of care were discussed and agreed upon by patient/family. SUBJECTIVE: Ruddy Ruvalcaba is a 51 year old male seen today for Pre-op evaluation for R TKA with planned same day discharge. Plan is for homecare PT post-op and then eventually outpatient PT. Pt reports that his is a nurse and will be home with him for the initial post-op recovery. 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 Hobbies / Interests: golf, football Home Environment Patient Lives With: Spouse Assistance Available: 24 Hour Home Type: Multi-Level (Pt is making arrangements to stay on main floor.) Entry To Home: Stairs;Without Rail Number Of Stairs Into Home: 2 Number Of Stairs To Bed/Bath: 12 Stairs to Bed/Bath with: Unilateral Rail Tub/Shower Type: bath tub and shower Equipment Owned: Crutch(es) (pt was told that he would be issued a walker the day of surgery) Transportation: Car Intake Information: Prescription present Previous Treatment: None Pain: Pain Pain Level: 8 Pain Location: Knee - Right Description: Aching;Throbbing Frequency: Continuous Post Treatment Pain Post Treatment Pain Level: No Change PROMIS Scales Higher is Better 11/10/2021 11/28/2021 Phys Func - Score - 35 (moderate dysfunction) Phys Func - Percentile - 7 % GH Physical - Score 39.8 (Fair) - GH Physical - Percentile 15 % - GH Mental - Score 59 (Excellent) - GH Mental - Percentile 82 % - Self-Eff Symptom - Score - 39 (Low) Self-Eff Symptom - Percentile - 14 % T-scores: mean of general population = 50. 5 points is clinically meaningfully difference Percentiles provide an indication of how the patient's score ranks in relation to the general population. Higher percentile rankings indicate better function/quality of life. 50th percentile is the average of the general population and indicates half of respondents had a worse score. T-scores: mean of general population = 50. 5 points is clinically meaningfully difference Percentiles provide an indication of how the patient's score ranks in relation to the general population. Higher percentile rankings indicate better function/quality of life. 50th percentile is the average of the general population and indicates half of respondents had a worse score. OBJECTIVE MEASURES WITH LEVEL OF FUNCTION: Knee Observations R Knee Palpation Tenderness: Medial joint line;Lateral joint line LE AROM R LE AROM: supine L LE AROM: supine R Knee Extension: 7 Degrees R Knee Flexion: 114 Degrees L Knee Extension: 0 Degrees L Knee Flexion: 115 Degrees LE Strength R Knee Extension (L3): 3+/5 R Knee Flexion: 4/5 L Knee Extension (L3): 4+/5 L Knee Flexion: 4+/5 Gait Weight Bearing Status: WBAT Gait Observation: After instruction pt was able to ambulate with crutches WBAT/PWB on R LE and also with FWW. This took lots of verbal cues and demonstration but he was successful by the end of gait training session. Stairs: After instruction pt was able to ascend and descend 4 steps with B axillary crutches WBAT/PWB on R LE. Functional Performance Test Results Assistive Device: None Timed Up and Go (sec): 12.3 sec Education: Education Learning Preferences: Demonstration;Explanation;Performa nce;Printed Materials Barriers: None Learning/educational needs: Procedure / Surgery;Safety;Home exercise program;Plan of Care;Gait Training;Crutch Training;Body Mechanics Education Provided: Yes, see treatment interventions for education provided Education Provided To: Patient Education Mode/Type: Demonstration;Literature/Printed Materials;Explanation/Discussion;P erformance Response to Education/Teach Back: States/Identifies;Return Demonstration;Requires Review/Additional Education TREATMENT: PT Treatment Interventions: Self-Custodial Management;Gait Training Evaluation Gait Training: Stair Training: Pt was educated on how to ascend and descend 4 steps with B axillary crutches WBAT/PWB on R LE without rail. This was demonstrated, explained and verbal cues provided as he practiced. He will practice entry steps and level ground ambulation prior to surgery and call with any concerns or questions. 1: Pt was educated extensively on assistive device options and how to properly adjust both of these. All possible equipment needed was also discussed and pt reports that everything is already ordered. Pt was educated on how to ambulate PWB/WBAT with both a FWW and B axillary crutches. This was demonstrated and then after properly adjusting crutches he practiced this. Therapist provided cues and demonstration until patient demonstrated proper patterns. Handout was provided to supplement all gait training done. Skilled Intervention: Facilitated proper gait cycle with the use of verbal, visual, and tactile cues for correction of gait deviations identified in the objective section above. Skilled judgment used to assess selection, proper sizing, and proper use of assistive device. Self-Custodial Management: 1: The entire procedure, post-op plans, possible need to change plans, the role of rehab and patient's responsibilities were explained in detail. All precautions explained, especially DVT and the need for prophylaxis. Pt was educated on several exercises that he should consider prior to initiation of homecare. He was given a handout for R heel slides, R quad sets and ankle pumps. Skilled Intervention: Provided written instruction for activities of daily living techniques to facilitate proper performance and compliance. Reviewed patient specific diagnosis in relation to activities of daily living/home management. Provided written instruction for home program to facilitate proper performance and compliance. Billing * Evaluation Low Complexity: 1 Unit Self-Care/Home Management Treatment Minutes: 15 Gait Training Treatment Minutes: 15 Total Treatment Time Minutes (timed/untimed): 50 Jaime So PT documented in this encounter [facility] 11-26-2021 History of Present illness Narrative CHIEF COMPLAINT: Ruddy Ruvalcaba is a 51 year old male who presents for high blood pressure. His is also present today. I reviewed past medical, surgical, social, and family histories today and updated chart. Allergies, chronic medications, and supplements were also reviewed. He is a new patient and hasn't had a PCP in a few years. He has been on Lisinopril for HTN previously and tolerated it well. He is having a right knee replacement next week with Dr. Bennett and his blood pressure was elevated at his preoperative appt last week. He was advised to see a PCP. He does check his BP at home and it usually ranges from 150-180/80-90's. He denies any chest pain, SOB, leg swelling, dizziness, palpitations. He does report some headaches recently. He is a smoker and has smoked 1 ppd for the last 30 + years. He does not drink alcohol. He does not have a exercise routine and usually doesn't watch his diet for salt or saturated fats. He has never had a sleep study in the past. He recently had labs completed. STOP BANG Questionnaire 1. Snoring Do you snore loudly (louder than talking or loud enough to be heard through closed doors)? YES 2. Tired Do you often feel tired, fatigued, or sleepy during daytime? NO 3. Observed Has anyone observed you stop breathing during your sleep? YES 4. Blood Pressure Do you have or are you being treated for high blood pressure? YES 5. BMI BMI more than 35 kg/m2? YES 6. Age Age over 50 yr old? YES 7. Neck circumference Neck circumference greater than 40 cm? YES 8. Gender Gender male? YES * Neck circumference is measured by staff High risk of LAURYN: answering yes to three or more items Low risk of LAURYN: answering yes to less than three items The history is provided by the patient and the spouse. No procurement buyer was used. Hypertension This is a recurrent problem. The current episode started more than 1 month ago. The problem is uncontrolled. Associated symptoms include headaches. Pertinent negatives include no anxiety, blurred vision, chest pain, malaise/fatigue, neck pain, orthopnea, palpitations, peripheral edema, PND, shortness of breath or sweats. There are no associated agents to hypertension. Risk factors for coronary artery disease include obesity, male gender, smoking/tobacco exposure and sedentary lifestyle. Past treatments include GERTRUDIS inhibitors. The current treatment provides moderate improvement. Compliance problems include exercise and diet. There is no history of angina, kidney disease, CAD/[place], CVA, heart failure, left ventricular hypertrophy, PVD or retinopathy. There is no history of chronic renal disease or a thyroid problem. PAST MEDICAL HISTORY Diagnosis Date Essential hypertension 10/01/2015 Kidney stones Reflex sympathetic dystrophy of other specified site S/P insertion of spinal cord stimulator 10/01/2015 PAST SURGICAL HISTORY Procedure Laterality Date ARTHRS KNE SURG W/MENISCECTOMY MED/LAT W/SHVG Right 10/09/2015 Right knee arthroscopy medial meniscectomy ARTHRS KNE SURG W/MENISCECTOMY MED/LAT W/SHVG Right 10/26/2016 ARTHRS KNEE DRLG OSTEOCHOND DISSECANS INT FIXJ Right 10/09/2015 PF and medial distal femoral chondroplasties COLONOSCOPY FLX DX W/COLLJ SPEC WHEN PFRMD 11/14/2018 Colonoscopy CYSTO W LITHOTRIPSY 2013 renal calculi x 2 HERNIA REPAIR W/MESH 2000's PAST SURGICAL HISTORY OF nose-reconstruction PAST SURGICAL HISTORY OF Left 80's hand - plate and screws PAST SURGICAL HISTORY OF Left 80's humerous fx PAST SURGICAL HISTORY OF Right 90's Knee scope x's2 PAST SURGICAL HISTORY OF Left scope x's 2 knee PAST SURGICAL HISTORY OF Left acl repair 3x's Social History Tobacco Use Smoking status: Every Day Packs/day: 0.50 Types: Cigars, Cigarettes Start date: 10/20/1988 Smokeless tobacco: Never Tobacco comments: 1 ppd since 2011 Vaping Use Vaping Use: Never used Substance Use Topics Alcohol use: No Drug use: No ALLERGIES Allergen Reactions Aspirin Vomiting Family History Problem Relation Age of Onset other (negative) Father Current Outpatient Medications Medication Sig Dispense Refill mupirocin (BACTROBAN) 2 % ointment Apply 0.5 inch with cotton swab (Q-tip) to each nostril in the morning and evening for 5 days prior to and including day of surgery. 22 g 0 ibuprofen (MOTRIN ORAL) Take by mouth. acetaminophen (TYLENOL) 500 mg tablet Take 1,000 mg by mouth every 8 hours as needed. No current facility-administered medications for this visit. Review of Systems Constitutional: Negative for appetite change, chills, diaphoresis, fatigue, fever, malaise/fatigue and unexpected weight change. HENT: Negative. Eyes: Negative for blurred vision and visual disturbance. Respiratory: Negative for cough, chest tightness, shortness of breath and wheezing. Cardiovascular: Negative for chest pain, palpitations, orthopnea, leg swelling and PND. Gastrointestinal: Negative for abdominal pain, blood in stool, constipation, diarrhea, nausea and vomiting. Endocrine: Negative. Genitourinary: Negative for difficulty urinating, dysuria, frequency, hematuria and urgency. Musculoskeletal: Positive for arthralgias (bilateral knee pain). Negative for back pain, gait problem, myalgias, neck pain and neck stiffness. Skin: Negative for color change and rash. Neurological: Positive for headaches. Negative for dizziness and light-headedness. Hematological: Negative. Psychiatric/Behavioral: Negative for dysphoric mood and sleep disturbance. The patient is not nervous/anxious. BP 160/98 Pulse 76 Temp 97.8 Resp 16 Ht 5' 10 (1.78m) Wt 245 lb (111.1kg) SpO2 96% BMI 35.15 kg/(m^2). Physical Exam Vitals and nursing note reviewed. Constitutional: Appearance: He is well-developed. He is obese. HENT: Head: Normocephalic. Mouth/Throat: Lips: [place]. Eyes: General: Vision grossly intact. Conjunctiva/sclera: Conjunctivae normal. Pupils: Pupils are equal, round, and reactive to light. Neck: Thyroid: No thyroid mass or thyromegaly. Cardiovascular: Rate and Rhythm: Normal rate and regular rhythm. Pulses: Normal pulses. Heart sounds: Normal heart sounds, S1 normal and S2 normal. No murmur heard. Pulmonary: Effort: Pulmonary effort is normal. No respiratory distress. Breath sounds: Normal breath sounds and air entry. Musculoskeletal: Cervical back: Neck supple. Right lower leg: No edema. Left lower leg: No edema. Lymphadenopathy: Cervical: No cervical adenopathy. Skin: General: Skin is warm and dry. Neurological: General: No focal deficit present. Mental Status: He is alert and oriented to person, place, and time. Motor: Motor function is intact. Psychiatric: Mood and Affect: Mood and affect normal. Speech: Speech normal. Behavior: Behavior normal. Behavior is cooperative. Thought Content: Thought content normal. Cognition and Memory: Cognition normal. Judgment: Judgment normal. No visits with results within 1 Day(s) from this visit. Latest known visit with results is: Appointment on 11/15/2021 Component Date Value Ref Range Status WBC 11/15/2021 10.24 3.70 - 11.00 k/uL Final RBC 11/15/2021 4.85 4.20 - 6.00 m/uL Final Hemoglobin 11/15/2021 15.0 13.0 - 17.0 g/dL Final Hematocrit 11/15/2021 42.6 39.0 - 51.0 % Final MCV 11/15/2021 87.8 80.0 - 100.0 fL Final MCH 11/15/2021 30.9 26.0 - 34.0 pg Final MCHC 11/15/2021 35.2 30.5 - 36.0 g/dL Final RDW-CV 11/15/2021 12.6 11.5 - 15.0 % Final Platelet Count 11/15/2021 305 150 - 400 k/uL Final MPV 11/15/2021 10.4 9.0 - 12.7 fL Final Neut% 11/15/2021 65.4 % Final Abs Neut 11/15/2021 6.69 1.45 - 7.50 k/uL Final Lymph% 11/15/2021 22.9 % Final Abs Lymph 11/15/2021 2.35 1.00 - 4.00 k/uL Final Kings% 11/15/2021 8.1 % Final Abs Kings 11/15/2021 0.83 <0.87 k/uL Final Eosin% 11/15/2021 2.2 % Final Abs Eosin 11/15/2021 0.23 <0.46 k/uL Final Baso% 11/15/2021 1.0 % Final Abs Baso 11/15/2021 0.10 <0.11 k/uL Final Immature Gran % 11/15/2021 0.4 % Final Abs Immature Gran 11/15/2021 0.04 <0.10 k/uL Final NRBC 11/15/2021 0.0 /100 WBC Final Absolute nRBC 11/15/2021 <0.01 <0.01 k/uL Final Diff Type 11/15/2021 Auto Final Protein, Total 11/15/2021 7.3 6.3 - 8.0 g/dL Final Albumin 11/15/2021 4.7 3.9 - 4.9 g/dL Final Calcium, Total 11/15/2021 9.2 8.5 - 10.2 mg/dL Final Bilirubin, Total 11/15/2021 0.3 0.2 - 1.3 mg/dL Final Alkaline Phosphatase 11/15/2021 76 38 - 113 U/L Final AST 11/15/2021 17 14 - 40 U/L Final ALT 11/15/2021 19 10 - 54 U/L Final Glucose 11/15/2021 95 74 - 99 mg/dL Final The [place] Diabetes Association (ADA) provides guidance for cutoff values for fasting glucose and random glucose. The ADA defines fasting as no caloric intake for at least 8 hours. Fasting plasma glucose results between 100 to 125 mg/dL indicate increased risk for diabetes (prediabetes). Fasting plasma glucose results greater than or equal to 126 mg/dL meet the criteria for diagnosis of diabetes. In the absence of unequivocal hyperglycemia, results should be confirmed by repeat testing. In a patient with classic symptoms of hyperglycemia or hyperglycemic crisis, random plasma glucose results greater than or equal to 200 mg/dL meet the criteria for diagnosis of diabetes. Reference: Standards of Medical Care in Diabetes 2016, [place] [employer]. Diabetes Care. 2016.39(Suppl 1). BUN 11/15/2021 22 9 - 24 mg/dL Final Creatinine 11/15/2021 0.96 0.73 - 1.22 mg/dL Final Sodium 11/15/2021 136 136 - 144 mmol/L Final Potassium 11/15/2021 4.1 3.7 - 5.1 mmol/L Final Chloride 11/15/2021 105 97 - 105 mmol/L Final CO2 11/15/2021 20 (A) 22 - 30 mmol/L Final Anion Gap 11/15/2021 11 9 - 18 mmol/L Final Estimated Glomerular Filtration Ra* 11/15/2021 95 >=60 mL/min/1.73m Final Estimated Glomerular Filtration Rate (eGFR) is calculated using the 2020 CKD-EPI creatinine equation. This equation utilizes serum creatinine, sex, and age as parameters. The creatinine assay has traceable calibration to isotope dilution-mass spectrometry. Refer to KDIGO guidelines for clinical interpretation. In patients with unstable renal function, e.g. those with acute kidney injury, the eGFR may not accurately reflect actual GFR. ABO 11/15/2021 A Final Rh(D) 11/15/2021 Positive Final Antibody Screen 11/15/2021 Negative Final HIstorical Ab Scr Status 11/15/2021 NEGATIVE Final ABO 11/15/2021 A Final Rh(D) 11/15/2021 Positive Final Hemoglobin A1C 11/15/2021 5.4 4.3 - 5.6 % Final [place] Diabetes [employer] guidelines indicate that patients with HgbA1c in the range 5.7-6.4% are at increased risk for development of diabetes, and intervention by lifestyle modification may be beneficial. HgbA1c greater or equal to 6.5% is considered diagnostic of diabetes. Estimated Average Glucose 11/15/2021 108 mg/dL Final eAG: (Estimated average glucose) is a calculated value from HgbA1c and is home furnishings sales representative of the average blood glucose level in the last 2-3 month period. ASSESSMENT/PLAN: 1. Essential hypertension - ICD9: 401.9, ICD10: I10 (primary diagnosis) - Previously diagnosed but hasn't been on treatment for a few years - Begin lisinopril (Zestril/Prinivil) - Encouraged dietary sodium restriction/DASH diet - Recommended regular aerobic exercise. - Recommend home blood pressure monitoring, to bring results in on next visit - Discussed need and benefit for weight loss. - Follow up in 1 month for BP recheck. - Reviewed risks of HTN and principles of treatment - Goal of BP <130/80 - Patient counselled on smoking cessation. - Recommended no refined sugar, low refined starch, healthy oil intake (olive oil), healthy protein (fish) along the lines of the Mediterranean diet. - LISINOPRIL 20 MG TABLET 2. Tobacco smoker, 1 pack of cigarettes or less per day - ICD9: 305.1, ICD10: F17.210 - Cessation encouraged. - Physiologic and physical aspects of tobacco addiction as well as strategies for quitting were discussed. - Counseling was given focusing on the harmful effects of this addiction especially given the patient's medical condition(s) which will be worsened because of the chemicals in tobacco. - Counseling was given 3-4 minutes. - Recommended to called 1-800-QUIT NOW 3. Class 2 severe obesity due to excess calories with serious comorbidity and body mass index (BMI) of 35.0 to 35.9 in adult (HCC) - ICD9: 278.01, V85.35, ICD10: E66.01, Z68.35 Stable - Behavioral intervention ASSESSMENT/PLAN: 4. At risk for obstructive sleep apnea - ICD9: V49.89, ICD10: Z91.89 - STOP BANG=7 - Discussed that we should discuss this in the near future. He states understanding. New medication(s) prescribed today: Yes: Lisinopril. Discussed new medication dosage, usage, goals of therapy, and side effects. Patient has been apprised of any potential drug interactions to be aware of. Patient expresses understanding. Counseling completed in adopting health behaviors such as avoiding excessive alcohol use, avoid tobacco use, improve nutrition, and engage in physical activities. Copy of written care plan, clinical summary, treatment plan, new medications, goals, and self management requirements were given to patient. Jossy Natarajan APRN.AINSLEY documented in this encounter [facility] 11-15-2021 Instructions Margie Barrera APRN.CNP - 11/15/2021 2:31 PM EDT PATIENT PREOPERATIVE INSTRUCTIONS Miguel Bennett MD has scheduled you for your procedure at this surgery center: [facility]: [phone] -- [address] [address]. Please read below carefully for your personalized instructions. Dietary Restrictions: - No solid food after midnight. - You may have 12 ounces of clear liquids (water, clear juices such as apple juice or gatorade, carbonated beverages, clear tea, black coffee, jello) until 2 hours before scheduled arrival at facility. Medications: Unless instructed differently below, stay on all of your medications until your surgery. Approved medications to take the morning of surgery with a sip of water: NONE If you take any medications for erectile dysfunction-Cialis (Tadalafil), Levitra, Staxyn (Vardenafil) Viagra (Sildenenafil please do not take these for 48 hours before surgery. If you start any new medications after today's visit, please contact the surgeon's office. Blood Thinning Medications: - Stop NSAIDS (Ibuprofen, Advil, Aleve, Motrin, Celebrex, Mobic, etc.) 7 days before surgery, as directed by your surgeon. - Stop Aspirin 7 days before surgery, as directed by your surgeon. - Stop Vitamin E, ALL multi-vitamins, herbals and dietary supplements 7 days before surgery. - You may take Tylenol (Acetaminophen) or any of your pain medications that do not contain aspirin or NSAIDS as needed. Important Reminders: - If you use CPAP/BIPAP, bring the machine with you to the surgery center. - If you are prescribed inhalers for breathing, continue using them. - Candy, mints, and tobacco products are NOT permitted the morning of surgery. - Hearing aids, dentures and glasses may be worn the morning of surgery. - NO jewelry, body piercings, makeup, hairpins or contacts are to be worn the day of surgery. If you develop symptoms such as a fever, cold, or flu, or have other changes to your health within TWO DAYS of scheduled surgery or the morning of surgery, please contact the surgery center above. Personal Belongings: -Please have photo ID and insurance cards. -If you do not have a copy of advance directives on file with us, please bring a copy with you on the day of surgery. - Leave ALL valuables and money at home or with family members. For Outpatient Procedures: - YOU MUST HAVE A RESPONSIBLE COUNSELOR NURSES[employer]OCIATION TAKE YOU HOME. A CHILDCARE AIDE OR SUPERVISOR DIALS CANNOT BE MADE A RESPONSIBLE [employer]. - We recommend that a responsible person stays with you overnight to take care of you. - You cannot stay in a hotel alone after outpatient surgery. You will not be permitted to have your surgery, if you do not have someone to take care of you. Arrival Time for Surgery: - The Surgery Center or hospital where you are having surgery will call the afternoon before surgery (or Monday for Monday surgery) with a scheduled arrival time. - If you have not heard by 4 pm, please contact the surgery center above. Please be aware that emergency situations arise, which may delay or change your surgical time. If this happens, we will notify you as soon as possible and regret any inconvenience. If you already have an Advance Directive, please fax a copy to [phone] or email to for it to be added to your chart. If you do not have an Advance Directive, you can find the appropriate form and more information at [email or web address]. We recommend that you complete the Advance Directive form found on the website and bring it with you the day of your surgery. It can be witnessed and scanned into your chart that day. Margie Barrera APRN.CNP documented in this encounter [facility] 11-15-2021 History and physical note HISTORY AND PHYSICAL EXAMINATION SERVICE DATE: 11/15/2021 SERVICE TIME: 2:29 PM PRIMARY CARE PHYSICIAN: Estefania Guardado MD REASON FOR VISIT: Ruddy Ruvalcaba is a 51 year old male who is scheduled for Procedure(s): ROBOTIC ASSISTED TOTAL KNEE ARTHROPLASTY (Right) at the request of Dr. Miguel Bennett for consultation. My final recommendation will be communicated back to the requesting physician by way of shared medical record or letter. Subjective The patient has the following: ACTIVE PROBLEM LIST Rsd (Reflex Sympathetic Dystrophy) Essential Hypertension S/P Insertion of Spinal Cord Stimulator Complex Tear of Medial Meniscus of Right Knee As Current Injury Chronic Postoperative Pain Tear of Lateral Meniscus of Right Knee, Current Rupture of Anterior Cruciate Ligament of Right Knee Headaches Class 2 Severe Obesity Due to Excess Calories With Serious Comorbidity and Body Mass Index (Bmi) of 35.0 to 35.9 in Adult (Hcc) Post-Traumatic Osteoarthritis of Right Knee COVID-19 Immunization Status Overdue - COVID-19 VACCINE (1) Overdue - never done No completion, postpone, frequency change, or communication history exists for this topic. CHIEF COMPLAINT: Pre-op exam HPI: KIKA is a 51 yo seen for PAC due to scheduled above surgery because OA right knee. 11/01/2021 Dr. Miguel Bennett Ruddy Ruvalcaba is a 51 year old patient here for evaluation and management of right knee pain. Ruddy Ruvalcaba has had progressive problems with the knee(s) constantly over the past 2 year(s) interfering with activities which include exercise, golfing, enjoying hobbies, walking, and climbing stairs. The problem began limiting activities 7-12 months ago. Currently the pain in the joint is rated at 7 out of 10 with minimal activity. The pain is constant and is located along the inside aspect and in the back. The pain is described as aching, severe, and sharp. Relieving factors include rest. There is no specific incident that brought about this pain. Ruddy Ruvalcaba has no additional complaints. FUNCTIONAL STATUS: Participate in moderate recreational activities, such as golf, bowling, dancing, doubles tennis, or throwing a baseball or football (6.00 METs) Total Joint Arthroplasty: Risk Calculator Ruddy Ruvalcaba has a 3.39% chance of NOT returning home at discharge for a Primary total Knee replacement. Ruddy's estimated Length of Stay is 1 day. Ruddy's 30 day chance of readmission is 1.41%. Readmission Probability 1.41 % (within 30 days following surgery) Estimated LOS 1 day Discharge Disposition Probability D/C to Home 96.61 % D/C to SNF 3.39 % These calculations are based on the following factors: - 51 years of age - sex is male - BMI of 34 kg/m2 - NarxCare score of 100 - 0 hospitalizations in the last 12 months - no history of heart disease - no history of diabetes - no history of COPD - no history of anemia - preoperative ambulation: impaired community distances - 1 step(s) to enter home - bed location is NOT on the first floor - bath location is NOT on the first floor - caregiver is consistent - home is not more than 150 miles away - PROMIS-10 Mental Health T score not available - Marital status: PREVIOUS TREATMENTS: Attempted Weight Loss Medical Treatments: RX NSAIDS for 3 Months or Greater (meloxicam (Mobic)), Steroid Injections Right Knee Previous Surgery: Knee Arthroscopy REVIEW OF SYSTEMS: PAIN ASSESSMENT: See HPI. MUSCULOSKELETAL: See HPI. Risk Factors for Total Joint Arthroplasty (TJA) Obesity Unknown Risk High: BMI > 40 Moderate: BMI 30-40 Normal: BMI < 30 Diabetes normal High: A1C > 8 Moderate: A1C 7-8 Normal: A1C < 7 Smoking High Risk High: Current smoker Normal: Non smoker Anemia normal High: Hgb < 13 (men) N/A: Hgb >= 13 (men) Nutritional Status normal High: Alb<3.4, or prealb<15, or serum transferrin<200, or total lymphocyte count<1500 Normal: normal labs COPD normal High: dx of COPD Normal: no dx of COPD MRSA normal High: dx of MRSA or positive lab test Normal: no MRSA CKD normal High: eGFR<60 Moderate: eGFR 60-89 Normal: eGFR>90 Hx of DVT / PE normal High: dx of DVT / PE Normal: no dx of DVT / PE Narcotics Use Moderate Risk High:NarxCare >=300 Moderate: 100-299 Normal: 0-99 LAURYN normal High: dx of LAURYN N/A: no dx of LAURYN Coagulation normal High:PT Sec>13, or PT INR>1.3, or APTT>32.4, or Plt ct<150k Moderate: on anticoag but none of the above Normal: none Obesity: height and/or weight are out of date (There is no height and/or weight reading in the past 365 days, so the below BMI readings may be inaccurate) BMI Readings from Last 3 Encounters: 08/13/21 : 34.01 kg/m 01/27/21 : 33.69 kg/m 11/14/18 : 30.87 kg/m Ruddy is a smoker. It is recommended that he receive a consult for smoking cessation and complete 30 days of no tobacco use prior to surgery. NarxCare score NARX Narcotics: 100 (11/01/2021 8:13 AM) Other Risk Factors None REVIEW OF SYSTEMS: General: No weight loss, malaise or fevers. Neurological: Positive for: headaches (otc analgesics as needed). Negative for: cerebral palsy, RESEARCH RN SPEC tumor, dementia, multiple sclerosis, paraplegia, Parkinson's disease, seizures, TIA and strokes. Respiratory: No history of current cough or dyspnea, or pneumonia in the past 6 weeks. No history of respiratory/pulmonary symptoms or problems. Cardiovascular: Positive for: hypertension (hx, no longer taking rx) Negative for: anticoagulation therapy, arrhythmia, atrial fibrillation, CAD, chest pain, CHF, congenital heart defect, DVT/PE, hyperlipidemia, recent [place], murmur/valvular heart disease, open heart surgery and valve surgery. GI: No history of GI symptoms or problems. No history of esophageal varices, recent ascites, or ETOH greater than 2 drinks per day. : Positive for: nephrolithiasis (remote hx, s/p lithotripsy). Negative for: BPH, renal failure and urinary tract infection. Endocrine: No history of diabetes. Has not taken steroids within the past 30 days. No history of endocrinological symptoms or problems. Hematology: No history of bleeding or clotting disorder. Patient is not taking anti-coagulation or platelet medications. No history of hematological symptoms or problems. Oncology: No history of CA metastasis, chemo within 30 days, or radiotherapy within 90 days. No history of oncological symptoms or problems. Psych: No history of psychiatric symptoms or problems. Musculoskeletal: See HPI. +rsd, left knee +spinal cord stimulator Skin: Negative for lesions, rash and itching. PAST MEDICAL HISTORY Diagnosis Date Essential hypertension 10/01/2015 Reflex sympathetic dystrophy of other specified site S/P insertion of spinal cord stimulator 10/01/2015 PAST SURGICAL HISTORY Procedure Laterality Date ARTHRS KNE SURG W/MENISCECTOMY MED/LAT W/SHVG Right 10/09/2015 Right knee arthroscopy medial meniscectomy ARTHRS KNE SURG W/MENISCECTOMY MED/LAT W/SHVG Right 10/26/2016 ARTHRS KNEE DRLG OSTEOCHOND DISSECANS INT FIXJ Right 10/09/2015 PF and medial distal femoral chondroplasties COLONOSCOPY FLX DX W/COLLJ SPEC WHEN PFRMD 11/14/2018 Colonoscopy CYSTO W LITHOTRIPSY 2013 renal calculi x 2 HERNIA REPAIR W/MESH 2000's PAST SURGICAL HISTORY OF nose-reconstruction PAST SURGICAL HISTORY OF Left 80's hand - plate and screws PAST SURGICAL HISTORY OF Left 80's humerous fx PAST SURGICAL HISTORY OF Right 90's Knee scope x's2 PAST SURGICAL HISTORY OF Left scope x's 2 knee PAST SURGICAL HISTORY OF Left acl repair 3x's FAMILY HISTORY Problem Relation Age of Onset other (negative) Father Social History Tobacco Use Smoking status: Every Day Packs/day: 0.50 Types: Cigars, Cigarettes Start date: 10/20/1988 Smokeless tobacco: Never Tobacco comments: 1 ppd since 2011 Vaping Use Vaping Use: Never used Substance Use Topics Alcohol use: No Drug use: No Prior to Admission medications as of 11/15/21 1417 Medication Sig Last Dose Taking ibuprofen (MOTRIN ORAL) Take by mouth. Taking Yes acetaminophen (TYLENOL) 500 mg tablet Take 1,000 mg by mouth every 8 hours as needed. Taking Yes oxyCODONE-acetaminophen (PERCOCET) 5-325 mg tablet Take 1 tablet by mouth every 4 hours as needed. Patient not taking: Reported on 11/15/2021 Not Taking cyclobenzaprine (FLEXERIL) 10 mg tablet Take 1 tablet by mouth three times daily as needed. Patient not taking: No sig reported Not Taking No medication comments found. ALLERGIES Allergen Reactions Aspirin Vomiting Objective PHYSICAL EXAM: General: alert and oriented (x3) and healthy appearance. Pertinent negatives noted - not distressed. Skin: normal color, no rash or lesions. HEENT: EOM intact and pupils equal round. Pertinent negatives noted - no carotid bruit. Cardiovascular: regular rate and rhythm, normal S1 and S2, no rub, murmurs, or gallop. Respiratory: normal breath sounds, no wheezes or crackles. No chest wall deformity or tenderness. Abdomen: soft. Pertinent negatives noted - not tender. Extremities: no deformity, no edema or tenderness, no joint swelling or clubbing. Neurological: normal cognition and motor skills. Gait normal. No weakness or sensory deficit. PAIN ASSESSMENT: Pain Pain Level: 8 Pain Location: Knee-Right Description: Aching;Throbbing Duration Amount of Time: 10 Duration Units: Years Frequency: Continuous Intervention/Comfort measure: Medication VITALS: BP 178/108 Pulse 76 Temp (Src) 98.1 (Temporal) Resp 18 Ht 5' 10 (1.78m) Wt 245 lb (111.1kg) SpO2 96% BMI 35.15 kg/(m^2). Diagnostic tests reviewed for today's visit: Lab Value Units Date High Low HB No results within date range. HCT No results within date range. WBC No results within date range. PLT No results within date range. NA No results within date range. K No results within date range. GLUC No results within date range. BUN No results within date range. CREAT No results within date range. PTSEC No results within date range. INR No results within date range. APTT No results within date range. ALT No results within date range. AST No results within date range. TBILI No results within date range. TSH No results within date range. Lab Value Units Date High Low HCGQT No results within date range. UHCG No results within date range. HCG, BODY* No results within date range. Lab Value Units Date High Low ABORHD No results within date range. ABSCREEN No results within date range. No results found for: HBA1C Recent Results (from the past 8760 hour(s)) ECG COMPLETE Collection Time: 11/15/21 2:26 PM Result Value Ventricular Rate 70 Atrial Rate 70 P-R Interval 246 QRS Duration 98 QT Interval 366 QTC Calculation (Bazett) 395 Calculated P [place] 8 Calculated R [place] 23 Calculated T [place] 22 Impression SINUS RHYTHM WITH 1ST DEGREE AV BLOCK OTHERWISE NORMAL ECG No results found for this or any previous visit (from the past 55116 hour(s)). Assessment Essential hypertension Assessment: hx of tx, no taking rx, PSR to set up appt to establish Last 14 BP Last 14 Encounter BP Readings: Date: BP: 11/15/2021 178/108 08/13/2021 154/88 01/27/2021 162/90 11/07/2018 138/89 11/02/2018 146/82 10/20/2016 157/90 10/17/2016 140/87 10/01/2015 150/92 09/28/2015 141/88 09/08/2015 139/92 10/30/2003 155/92 S/P insertion of spinal cord stimulator Assessment: hx Headaches Assessment: otc rx as needed RSD (reflex sympathetic dystrophy) Assessment: hx, no tx except OTC analgesics as needed Class 2 severe obesity due to excess calories with serious comorbidity and body mass index (BMI) of 35.0 to 35.9 in adult (HCC) Assessment: Body mass index is 35.15 kg/m . Mariscal Activity Status Index: METS: Climb a flight of stairs or walk up a hill (5.50 METs) DASI Score: 5.5 Patient denies any chest pain or undue shortness of breath with the above physical activity. Clinical Frailty Scale: 3. Well, with treated comorbid disease STOP-Bang Score: Snores loudly Has been observed to stop breathing or choking/gasping during sleep BMI greater than 35 kg/m^2 Patient over 50 years old Male patient Denies feeling tired, fatigued, or sleepy during the daytime Denies having high blood pressure Does not have a large neck STOP-Bang Score: 5 [id number] Score: Age: <65 Sex: male CHF history: No Hypertension history: Yes Stroke/TIA/thromboembolism history: No Vascular disease history: No Diabetes history: No [id number] Score: 1 ARISCAT Score: Age: 51-80 Preoperative SpO2: >=96% Respiratory infection in the last month: No Preoperative anemia: No Surgical incision: peripheral Duration of surgery: 2-3 hrs Emergency procedure: No ARISCAT Score: 19 ASA Class: 2 ANESTHESIA FINDINGS: Intubation History: No history of difficult intubation Significant Anesthesia Considerations: none Airway History: No history of difficult airway I - PHYSICAL EVALUATION AIRWAYTracheostomy tube not present Mallampati: III. TM distance: >3 FB. Neck ROM: full ROM without neurological symptoms. Mouth opening: adequate. Short neck: no. Thick neck: yes DENTAL Dentures, upper: complete. Dentures, lower: partial. II - ANESTHESIA PLAN ASA Score: 2 Anesthetic Plan: other Anesthetic plan additional comments: *PACC/TCI - anesthesia choice. Informed Consent Anesthetic risks, benefits, alternatives, personnel and consent discussed: yes. Patient / Responsible Libertarian agrees to proceed: yes Patient / Surrogate agrees to blood products: Yes Prepared for Surgery: optimally prepared for surgery, pending [see comment]. COVID Pt referred to primary care for untreated HTN, appt 11/26/2021 CONSULTS: The following consults have been initiated at this time: primary care/internal medicine. Planned Anesthetic: other anesthesia choice The Following Tests/Procedures Have Been Initiated: Orders Placed This Encounter >CBC + AUTO DIFF Standing Status: Future Standing Expiration Date: 01/15/2022 >CMP Standing Status: Future Standing Expiration Date: 01/15/2022 Type and Screen, 30 day Standing Status: Future Standing Expiration Date: 01/15/2022 Order Specific Question: Hospital of Planned Surgery or Procedure: Answer: [facility]ilar Confirm Blood Type Standing Status: Future Standing Expiration Date: 01/15/2022 Order Specific Question: Did Blood Bank direct you to place this order: Answer: No - Presurgical Workflow mupirocin (BACTROBAN) 2 % ointment Sig: Apply 0.5 inch with cotton swab (Q-tip) to each nostril in the morning and evening for 5 days prior to and including day of surgery. Dispense: 22 g Refill: 0 ECG COMPLETE Order Comments: Ordered by an unspecified provider ECG COMPLETE Standing Status: Future Number of Occurrences: 1 Standing Expiration Date: 11/15/2022 Instructions Given to Patient: Instructions located in the after visit summary. Patient given verbal and written preop instructions and voices comprehension and compliance. SIGNATURE: Margie Barrera APRN.CNP PATIENT NAME: Ruddy Ruvalcaba DATE: November 15, 2021 TIME: 2:29 PM PAGER/CONTACT #: documented in this encounter [facility] 11-12-2021 Note HNO ID: [id number] Author: RT Taisha(Obinna) Service: ? Author Type: Tariff Expert Type: Progress Notes Filed: 11/12/2021 2:22 PM Note Text: Radiology Service Progress Note PATIENT NAME: Ruddy Ruvalcaba DATE OF SERVICE: November 12, 2021 TIME: 2:19 PM PATIENT IDENTITY VERIFICATION COMPLETED USING TWO (2) IDENTIFIERS: Name and Date of confirmed by patient verbally and Name and Date of confirmed by identification band. FALL SCREENING: Has the patient had 2 falls in the last year or 1 fall with injury or currently using an Ambulatory Assistive Device (Walker, Cane, Wheelchair, Crutches, etc.)? No PATIENT GENDER DATA: Male PATIENT RELEVANT IMPLANT DATA REVIEWED: Not Applicable RADIOLOGY DEPARTMENT: CT; Exam(s) Completed: Lower extremity PERIPHERAL IV DATA: Not applicable SIGNED BY: RT Taisha(R) November 12, 2021 2:19 PM [facility] 11-11-2021 Miscellaneous Notes Patient is scheduled for physical therapy at [place] on 11-29-21 PLease call patient to schedule pre op Physical therapy session in anticipation for patient to have a same day discharge surgery on 12/01/21. Order in Epic. Thanks. 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 She works 3 days a week Home Environment: Home Layout: 2 story, Entry Steps: 2, no rail, Bedroom Location: 2nd floor, Bathroom Location: 2nd floor, and full bath in basement and tub shower. Pt does not have any equipment. Would like a walker through us. Discussed with patient importance of attending joint education class and provided date and times of class: YES paper copy Patient received Joint Education Binder: Yes Patient plans discharge. Patient has HCAPS. SIGNATURE: ANGEL Valdivia PATIENT NAME: Ruddy Ruvalcaba DATE: November 11, 2021 TIME: 12:44 PM documented in this encounter [facility] 11-05-2021 Miscellaneous Notes Surgery has been scheduled as requested. Surgical request completed for right robotic assisted total knee arthroplasty at [facility] on 12/01/2021. Patient may be same day discharge. CT scan scheduled 11/12/2021. Email sent to [employer] for equipment request. Post op appointments have been scheduled and mailed to patient. documented in this encounter [facility] 11-01-2021 History of Present illness Narrative CONSULT ORTHOPAEDIC: KNEE PRIMARY CARE PHYSICIAN: Estefania Guardado MD REFERRING PROVIDER: SELF ASSESSMENT & PLAN Impression: Right Knee Moderate Degenerative Osteoarthritis, Post-Traumatic Ruddy Ruvalcaba has radiograph and physical exam evidence of degenerative joint disease and wishes to pursue surgery. This patient appears to have sufficient symptoms to warrant surgical intervention and is an appropriate candidate for right Primary Total Knee Arthroplasty as evidenced by six months of unsuccessful non-operative treatment as outlined in the HPI below. This patient has the following risk factors: Previous surgery and tobacco use We had a lengthy discussion regarding the risk and benefit of surgery, the alternatives, limitations and personnel involved. These included but were not limited to infection, persistent pain, instability, nerve injury, blood clots, and medical complications. We also discussed the pre-operative course, surgery itself and rehabilitation. Liza-operative blood management and transfusion issues were discussed, and options clearly outlined. The patient has consented to the use of the banked allogenic blood if medically necessary. The patient has elected to schedule surgery at this time or intends to call the office with a surgical date. Shared decision making occurred while obtaining informed consent. The patient will be scheduled for a pre-operative education class at which time they will have their nasal swab completed and will be given CHG cloths along with the verbal and written instructions for their use. Patient has been instructed and has been scheduled or will call to schedule attendence in one of the total joint perioperative classes offered prior to proceeding with TKA. The patient has been ordered: CT Ruddy Ruvalcaba meets the following criteria for CT: Preoperative planning for Valerio robotic assistance CONSULTS: Patient does not require consults for optimization at this time. ACTIVE PROBLEM LIST Reflex Sympathetic Dystrophy of The Lower Limb Essential Hypertension S/P Insertion of Spinal Cord Stimulator Complex Tear of Medial Meniscus of Right Knee As Current Injury Chronic Postoperative Pain Tear of Lateral Meniscus of Right Knee, Current Rupture of Anterior Cruciate Ligament of Right Knee SUBJECTIVE CHIEF COMPLAINT: Knee Pain HPI: Ruddy Ruvalcaba is a 51 year old patient here for evaluation and management of right knee pain. Ruddy Ruvalcaba has had progressive problems with the knee(s) constantly over the past 2 year(s) interfering with activities which include exercise, golfing, enjoying hobbies, walking, and climbing stairs. The problem began limiting activities 7-12 months ago. Currently the pain in the joint is rated at 7 out of 10 with minimal activity. The pain is constant and is located along the inside aspect and in the back. The pain is described as aching, severe, and sharp. Relieving factors include rest. There is no specific incident that brought about this pain. Ruddy Ruvalcaba has no additional complaints. FUNCTIONAL STATUS: Participate in moderate recreational activities, such as golf, bowling, dancing, doubles tennis, or throwing a baseball or football (6.00 METs) Total Joint Arthroplasty: Risk Calculator Ruddy Ruvalcaba has a 3.39% chance of NOT returning home at discharge for a Primary total Knee replacement. Ruddy's estimated Length of Stay is 1 day. Ruddy's 30 day chance of readmission is 1.41%. Readmission Probability 1.41 % (within 30 days following surgery) Estimated LOS 1 day Discharge Disposition Probability D/C to Home 96.61 % D/C to SNF 3.39 % These calculations are based on the following factors: - 51 years of age - sex is male - BMI of 34 kg/m2 - NarxCare score of 100 - 0 hospitalizations in the last 12 months - no history of heart disease - no history of diabetes - no history of COPD - no history of anemia - preoperative ambulation: impaired community distances - 1 step(s) to enter home - bed location is NOT on the first floor - bath location is NOT on the first floor - caregiver is consistent - home is not more than 150 miles away - PROMIS-10 Mental Health T score not available - Marital status: PREVIOUS TREATMENTS: Attempted Weight Loss Medical Treatments: RX NSAIDS for 3 Months or Greater (meloxicam (Mobic)), Steroid Injections Right Knee Previous Surgery: Knee Arthroscopy REVIEW OF SYSTEMS: PAIN ASSESSMENT: See HPI. MUSCULOSKELETAL: See HPI. Risk Factors for Total Joint Arthroplasty (TJA) Obesity Unknown Risk High: BMI > 40 Moderate: BMI 30-40 Normal: BMI < 30 Diabetes normal High: A1C > 8 Moderate: A1C 7-8 Normal: A1C < 7 Smoking High Risk High: Current smoker Normal: Non smoker Anemia normal High: Hgb < 13 (men) N/A: Hgb >= 13 (men) Nutritional Status normal High: Alb<3.4, or prealb<15, or serum transferrin<200, or total lymphocyte count<1500 Normal: normal labs COPD normal High: dx of COPD Normal: no dx of COPD MRSA normal High: dx of MRSA or positive lab test Normal: no MRSA CKD normal High: eGFR<60 Moderate: eGFR 60-89 Normal: eGFR>90 Hx of DVT / PE normal High: dx of DVT / PE Normal: no dx of DVT / PE Narcotics Use Moderate Risk High:NarxCare >=300 Moderate: 100-299 Normal: 0-99 LAURYN normal High: dx of LAURYN N/A: no dx of LAURYN Coagulation normal High:PT Sec>13, or PT INR>1.3, or APTT>32.4, or Plt ct<150k Moderate: on anticoag but none of the above Normal: none Obesity: height and/or weight are out of date (There is no height and/or weight reading in the past 365 days, so the below BMI readings may be inaccurate) BMI Readings from Last 3 Encounters: 08/13/21 : 34.01 kg/m 01/27/21 : 33.69 kg/m 11/14/18 : 30.87 kg/m Ruddy is a smoker. It is recommended that he receive a consult for smoking cessation and complete 30 days of no tobacco use prior to surgery. NarxCare score NARX Narcotics: 100 (11/01/2021 8:13 AM) Other Risk Factors None PAST MEDICAL HISTORY Diagnosis Date Essential hypertension 10/01/2015 Reflex sympathetic dystrophy of other specified site S/P insertion of spinal cord stimulator 10/01/2015 PAST SURGICAL HISTORY Procedure Laterality Date ARTHRS KNE SURG W/MENISCECTOMY MED/LAT W/SHVG Right 10/09/2015 Right knee arthroscopy medial meniscectomy ARTHRS KNE SURG W/MENISCECTOMY MED/LAT W/SHVG Right 10/26/2016 ARTHRS KNEE DRLG OSTEOCHOND DISSECANS INT FIXJ Right 10/09/2015 PF and medial distal femoral chondroplasties COLONOSCOPY FLX DX W/COLLJ SPEC WHEN PFRMD 11/14/2018 Colonoscopy CYSTO W LITHOTRIPSY 2013 renal calculi x 2 HERNIA REPAIR W/MESH 2000's PAST SURGICAL HISTORY OF nose-reconstruction PAST SURGICAL HISTORY OF Left 80's hand - plate and screws PAST SURGICAL HISTORY OF Left 80's humerous fx PAST SURGICAL HISTORY OF Right 90's Knee scope x's2 PAST SURGICAL HISTORY OF Left scope x's 2 knee PAST SURGICAL HISTORY OF Left acl repair 3x's FAMILY HISTORY Problem Relation Age of Onset other (negative) Father Social History Tobacco Use Smoking status: Every Day Packs/day: 0.50 Types: Cigars, Cigarettes Start date: 10/20/1988 Smokeless tobacco: Never Tobacco comments: 1 ppd since 2011 Substance Use Topics Alcohol use: No Drug use: No ALLERGIES: Aspirin MEDICATIONS: ibuprofen (MOTRIN ORAL) Take by mouth. acetaminophen (TYLENOL) 500 mg tablet Take 1,000 mg by mouth every 8 hours as needed. cyclobenzaprine (FLEXERIL) 10 mg tablet Take 1 tablet by mouth three times daily as needed. (Patient not taking: Reported on 11/01/2021) PHYSICAL EXAM: There were no vitals taken for this visit. All other systems deferred. GENERAL: Appears healthy, well-nourished, no deformities. HABITUS: Normal GAIT: Antalgic to the right KNEE EXAM: Right: Alignment: Varus deformity, Correctable Range of motion is 5 degrees in extension and 120 degrees of flexion. Extension La degrees Pain with ROM: Yes Effusion: Slight Tender to the palpation of Medial femoral condyle and Medial joint line Pain with patellar compression: Yes Stability: Anterior/Posterior stable and Varus/Valgus stable Hip Exam: flexion to 100+ degrees, full extension, internal/external rotation adequate, and no pain with log roll Neurovascular Status: Sensation Intact, Moves foot and ankle up & down, and 2+ dorsalis pedis DATA: Diagnostic tests reviewed for today's visit: Right knee X-Ray: Medial joint space noted to have severe degenerative changes and Patellofemoral joint noted to have moderate degenerative changes The following conditions were addressed during the office visit today: Smoking - Cessation counseling SIGNATURE: Miguel Bennett MD PATIENT NAME: Ruddy Ruvalcaba DATE: November 01, 2021 TIME: 9:23 AM documented in this encounter [facility] 08-13-2021 History of Present illness Narrative Images from the original note were not included. Subjective HPI Ruddy Ruvalcaba is a 51 year old male who presents with right lower tooth pain and jaw swelling. This started yesterday. He made an appointment with [facility] but it is not for another week. He states the pain is through the roof . He has taken ibuprofen for pain. He denies fever. He has had some associated right ear pain. Review of Systems Constitutional: Negative for chills and fever. HENT: Positive for ear pain. Negative for hearing loss. See HPI Skin: Negative for rash. 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 acetaminophen (TYLENOL) 500 mg tablet Take 1,000 mg by mouth every 8 hours as needed. amoxicillin-clavulanic acid (AUGMENTIN) 875-125 mg per tablet Take 1 tablet by mouth twice daily for 10 days. cyclobenzaprine (FLEXERIL) 10 mg tablet Take 1 tablet by mouth three times daily as needed. FAMILY HISTORY Problem Relation Age of Onset other (negative) Father Social History Tobacco Use Smoking status: Current Every Day Smoker Packs/day: 0.50 Types: Cigars, Cigarettes Start date: 10/20/1988 Smokeless tobacco: Never Used Tobacco comment: 1 ppd since 2011 Substance Use Topics Alcohol use: No Drug use: No Objective Physical Exam Vitals and nursing note reviewed. Constitutional: Appearance: Normal appearance. HENT: Head: Right Ear: Tympanic membrane, ear canal and external ear normal. Left Ear: Tympanic membrane, ear canal and external ear normal. Mouth/Throat: Skin: General: Skin is warm and dry. Findings: No erythema or rash. Neurological: Mental Status: He is alert. ASSESSMENT/PLAN: 1. Dental infection - ICD9: 522.4, ICD10: K04.7 - AMOXICILLIN 875 MG-POTASSIUM CLAVULANATE 125 MG TABLET - Ibuprofen 800 mg three times daily (every 8 hours) - Tylenol 1000 mg three times daily or 500 mg every 4 hours - see your dentist MARYELLEN - Follow-up with your PCP in 3-5 days if symptoms have not improved or sooner if symptoms worsen - Discussed red flags and need for immediate medical evaluation if any occur. - Discussed supportive care treatment with fluids, rest and analgesia. - Discussed expected course of illness Martha Benavides APRN.CNP documented in this encounter [facility] 08-13-2021 Instructions Martha Benavides APRN.CNP - 08/13/2021 10:27 AM EDT ASSESSMENT/PLAN: 1. Dental infection - ICD9: 522.4, ICD10: K04.7 - AMOXICILLIN 875 MG-POTASSIUM CLAVULANATE 125 MG TABLET - Ibuprofen 800 mg three times daily (every 8 hours) - Tylenol 1000 mg three times daily or 500 mg every 4 hours - see your dentist MARYELLEN - Follow-up with your PCP in 3-5 days if symptoms have not improved or sooner if symptoms worsen - Discussed red flags and need for immediate medical evaluation if any occur. - Discussed supportive care treatment with fluids, rest and analgesia. - Discussed expected course of illness Mratha Benavides APRN.CNP TOOTHACHE: Your exam shows that your toothache is probably due to tooth decay and infection. Poor dental care is the main cause of this problem. Swelling and redness around a painful tooth often means you have a dental abscess. Pain medicine and antibiotics can help reduce symptoms, but you will need to see a dentist within the next few days to have your problem properly treated. Fillings or root canal work may be needed to save your tooth. If the problem is severe, your tooth may need to be pulled. Please return here right away if you have a fever over 101F, can t swallow, or develop severe swelling. documented in this encounter [facility] documented as of this encounter (statuses as of 08/13/2021) [facility] History of Past illness Narrative* Problem Noted Date Resolved Date Kidney stones 10/01/2015 10/20/2016 documented as of this encounter (statuses as of 10/27/2021) [facility] History of Past illness Narrative* Problem Noted Date Resolved Date Kidney stones 10/01/2015 10/20/2016 documented as of this encounter (statuses as of 11/01/2021) [facility] History of Past illness Narrative* Problem Noted Date Resolved Date Kidney stones 10/01/2015 10/20/2016 documented as of this encounter (statuses as of 11/05/2021) [facility] History of Past illness Narrative* Problem Noted Date Resolved Date Kidney stones 10/01/2015 10/20/2016 documented as of this encounter (statuses as of 11/11/2021) [facility] History of Past illness Narrative* Problem Noted Date Resolved Date Kidney stones 10/01/2015 10/20/2016 documented as of this encounter (statuses as of 11/11/2021) [address] History of Past illness Narrative* Problem Noted Date Resolved Date Kidney stones 10/01/2015 10/20/2016 documented as of this encounter (statuses as of 11/15/2021) [address]2016 History of Past illness Narrative* Problem Noted Date Resolved Date Kidney stones 10/01/2015 10/20/2016 documented as of this encounter (statuses as of 11/16/2021) [address]2016 History of Past illness Narrative* Problem Noted Date Resolved Date Kidney stones 10/01/2015 10/20/2016 documented as of this encounter (statuses as of 11/28/2021) [address]2016 History of Past illness Narrative* Problem Noted Date Resolved Date Kidney stones 10/01/2015 10/20/2016 documented as of this encounter (statuses as of 11/29/2021) [address]2016 History of Past illness Narrative* Problem Noted Date Resolved Date Kidney stones 10/01/2015 10/20/2016 documented as of this encounter (statuses as of 12/01/2021) [address]2016 History of Past illness Narrative* Problem Noted Date Resolved Date Kidney stones 10/01/2015 10/20/2016 documented as of this encounter (statuses as of 12/02/2021) [address]2016 History of Past illness Narrative* Problem Noted Date Resolved Date Kidney stones 10/01/2015 10/20/2016 documented as of this encounter (statuses as of 12/03/2021) [address]2016 History of Past illness Narrative* Problem Noted Date Resolved Date Kidney stones 10/01/2015 10/20/2016 documented as of this encounter (statuses as of 12/03/2021) [address]2016 History of Past illness Narrative* Problem Noted Date Resolved Date Kidney stones 10/01/2015 10/20/2016 documented as of this encounter (statuses as of 12/06/2021) [address]2016 History of Past illness Narrative* Problem Noted Date Resolved Date Kidney stones 10/01/2015 10/20/2016 documented as of this encounter (statuses as of 12/06/2021) [address]2016 History of Past illness Narrative* Problem Noted Date Resolved Date Kidney stones 10/01/2015 10/20/2016 documented as of this encounter (statuses as of 12/07/2021) [address]2016 History of Past illness Narrative* Problem Noted Date Resolved Date Kidney stones 10/01/2015 10/20/2016 documented as of this encounter (statuses as of 12/08/2021) [address]2016 History of Past illness Narrative* Problem Noted Date Resolved Date Kidney stones 10/01/2015 10/20/2016 documented as of this encounter (statuses as of 12/08/2021) [address]2016 History of Past illness Narrative* Problem Noted Date Resolved Date Kidney stones 10/01/2015 10/20/2016 documented as of this encounter (statuses as of 12/09/2021) [address] History of Past illness Narrative* Problem Noted Date Resolved Date Kidney stones 10/01/2015 10/20/2016 documented as of this encounter (statuses as of 12/10/2021) [address] History of Past illness Narrative* Problem Noted Date Resolved Date Kidney stones 10/01/2015 10/20/2016 documented as of this encounter (statuses as of 12/10/2021) [facility] History of Past illness Narrative* Problem Noted Date Resolved Date Kidney stones 10/01/2015 10/20/2016 documented as of this encounter (statuses as of 12/12/2021) [address]2016 History of Past illness Narrative* Problem Noted Date Resolved Date Kidney stones 10/01/2015 10/20/2016 documented as of this encounter (statuses as of 12/13/2021) [address]2016 History of Past illness Narrative* Problem Noted Date Resolved Date Kidney stones 10/01/2015 10/20/2016 documented as of this encounter (statuses as of 12/15/2021) [address]2016 History of Past illness Narrative* Problem Noted Date Resolved Date Kidney stones 10/01/2015 10/20/2016 documented as of this encounter (statuses as of 12/15/2021) [address]2016 History of Past illness Narrative* Problem Noted Date Resolved Date Kidney stones 10/01/2015 10/20/2016 documented as of this encounter (statuses as of 12/16/2021) [address]2016 History of Past illness Narrative* Problem Noted Date Resolved Date Kidney stones 10/01/2015 10/20/2016 documented as of this encounter (statuses as of 12/17/2021) [address]2016 History of Past illness Narrative* Problem Noted Date Resolved Date Kidney stones 10/01/2015 10/20/2016 documented as of this encounter (statuses as of 12/19/2021) [address]2016 History of Past illness Narrative* Problem Noted Date Resolved Date Kidney stones 10/01/2015 10/20/2016 documented as of this encounter (statuses as of 12/24/2021) [address]2016 History of Past illness Narrative* Problem Noted Date Resolved Date Kidney stones 10/01/2015 10/20/2016 documented as of this encounter (statuses as of 12/29/2021) [address]2016 History of Past illness Narrative* Problem Noted Date Resolved Date Kidney stones 10/01/2015 10/20/2016 documented as of this encounter (statuses as of 12/30/2021) [address]2016 History of Past illness Narrative* Problem Noted Date Resolved Date Kidney stones 10/01/2015 10/20/2016 documented as of this encounter (statuses as of 01/03/2022) [address]2016 History of Past illness Narrative* Problem Noted Date Resolved Date Kidney stones 10/01/2015 10/20/2016 documented as of this encounter (statuses as of 01/06/2022) [address]2016 History of Past illness Narrative* Problem Noted Date Resolved Date Kidney stones 10/01/2015 10/20/2016 documented as of this encounter (statuses as of 01/07/2022) [address]2016 History of Past illness Narrative* Problem Noted Date Resolved Date Kidney stones 10/01/2015 10/20/2016 documented as of this encounter (statuses as of 01/17/2022) [address]2016 History of Past illness Narrative* Problem Noted Date Resolved Date Kidney stones 10/01/2015 10/20/2016 documented as of this encounter (statuses as of 01/19/2022) [address]2016 History of Past illness Narrative* Problem Noted Date Resolved Date Kidney stones 10/01/2015 10/20/2016 documented as of this encounter (statuses as of 01/26/2022) [address]2016 History of Past illness Narrative* Problem Noted Date Resolved Date Kidney stones 10/01/2015 10/20/2016 documented as of this encounter (statuses as of 01/27/2022) [address]2016 History of Past illness Narrative* Problem Noted Date Resolved Date Kidney stones 10/01/2015 10/20/2016 documented as of this encounter (statuses as of 01/28/2022) [address]2016 History of Past illness Narrative* Problem Noted Date Resolved Date Kidney stones 10/01/2015 10/20/2016 documented as of this encounter (statuses as of 02/07/2022) [address]2016 History of Past illness Narrative* Problem Noted Date Resolved Date Kidney stones 10/01/2015 10/20/2016 documented as of this encounter (statuses as of 02/08/2022) [address]2016 History of Past illness Narrative* Problem Noted Date Resolved Date Kidney stones 10/01/2015 10/20/2016 documented as of this encounter (statuses as of 02/14/2022) [address]2016 History of Past illness Narrative* Problem Noted Date Resolved Date Kidney stones 10/01/2015 10/20/2016 documented as of this encounter (statuses as of 02/16/2022) [address]2016 History of Past illness Narrative* Problem Noted Date Resolved Date Kidney stones 10/01/2015 10/20/2016 documented as of this encounter (statuses as of 02/22/2022) [address]2016 History of Past illness Narrative* Problem Noted Date Resolved Date Kidney stones 10/01/2015 10/20/2016 documented as of this encounter (statuses as of 02/25/2022) [address]2016 History of Past illness Narrative* Problem Noted Date Resolved Date Kidney stones 10/01/2015 10/20/2016 documented as of this encounter (statuses as of 03/24/2022) [address]2016 History of Past illness Narrative* Problem Noted Date Resolved Date Kidney stones 10/01/2015 10/20/2016 documented as of this encounter (statuses as of 03/25/2022) [address]2016 History of Past illness Narrative* Problem Noted Date Resolved Date Kidney stones 10/01/2015 10/20/2016 documented as of this encounter (statuses as of 03/25/2022) [address]2016 History of Past illness Narrative* Problem Noted Date Resolved Date Kidney stones 10/01/2015 10/20/2016 documented as of this encounter (statuses as of 04/07/2022) [address]2016 History of Past illness Narrative* Problem Noted Date Resolved Date Kidney stones 10/01/2015 10/20/2016 documented as of this encounter (statuses as of 04/18/2022) [address]2016 History of Past illness Narrative* Problem Noted Date Resolved Date Kidney stones 10/01/2015 10/20/2016 documented as of this encounter (statuses as of 04/26/2022) [address]2016 History of Past illness Narrative* Problem Noted Date Resolved Date Kidney stones 10/01/2015 10/20/2016 documented as of this encounter (statuses as of 04/29/2022) [address]2016 History of Past illness Narrative* Problem Noted Date Resolved Date Kidney stones 10/01/2015 10/20/2016 documented as of this encounter (statuses as of 05/06/2022) [address]2016 History of Past illness Narrative* Problem Noted Date Resolved Date Kidney stones 10/01/2015 10/20/2016 documented as of this encounter (statuses as of 05/13/2022) [address]2016 History of Past illness Narrative* Problem Noted Date Resolved Date Kidney stones 10/01/2015 10/20/2016 documented as of this encounter (statuses as of 05/20/2022) [address]2016 History of Past illness Narrative* Problem Noted Date Resolved Date Kidney stones 10/01/2015 10/20/2016 documented as of this encounter (statuses as of 05/26/2022) [address]2016 History of Past illness Narrative* Problem Noted Date Resolved Date Kidney stones 10/01/2015 10/20/2016 documented as of this encounter (statuses as of 05/26/2022) [address]2016 History of Past illness Narrative* Problem Noted Date Resolved Date Kidney stones 10/01/2015 10/20/2016 documented as of this encounter (statuses as of 06/01/2022) [address]2016 History of Past illness Narrative* Problem Noted Date Resolved Date Kidney stones 10/01/2015 10/20/2016 documented as of this encounter (statuses as of 06/02/2022) [address]2016 History of Past illness Narrative* Problem Noted Date Resolved Date Kidney stones 10/01/2015 10/20/2016 documented as of this encounter (statuses as of 06/06/2022) [address]2016 History of Past illness Narrative* Problem Noted Date Resolved Date Kidney stones 10/01/2015 10/20/2016 documented as of this encounter (statuses as of 06/07/2022) [address]2016 History of Past illness Narrative* Problem Noted Date Resolved Date Kidney stones 10/01/2015 10/20/2016 documented as of this encounter (statuses as of 06/13/2022) [address]2016 History of Past illness Narrative* Problem Noted Date Resolved Date Kidney stones 10/01/2015 10/20/2016 documented as of this encounter (statuses as of 06/16/2022) [address] History of Past illness Narrative* Problem Noted Date Resolved Date Kidney stones 10/01/2015 10/20/2016 documented as of this encounter (statuses as of 06/24/2022) [address] History of Past illness Narrative* Problem Noted Date Resolved Date Kidney stones 10/01/2015 10/20/2016 documented as of this encounter (statuses as of 07/05/2022) [address]2016 History of Past illness Narrative* Problem Noted Date Resolved Date Kidney stones 10/01/2015 10/20/2016 documented as of this encounter (statuses as of 07/05/2022) [address]2016 History of Past illness Narrative* Problem Noted Date Resolved Date Kidney stones 10/01/2015 10/20/2016 documented as of this encounter (statuses as of 07/13/2022) [address] History of Past illness Narrative* Problem Noted Date Resolved Date Kidney stones 10/01/2015 10/20/2016 documented as of this encounter (statuses as of 07/13/2022) [address]2016 History of Past illness Narrative* Problem Noted Date Resolved Date Kidney stones 10/01/2015 10/20/2016 documented as of this encounter (statuses as of 07/20/2022) [address]2016 History of Past illness Narrative* Problem Noted Date Resolved Date Kidney stones 10/01/2015 10/20/2016 documented as of this encounter (statuses as of 07/22/2022) [address]2016 History of Past illness Narrative* Problem Noted Date Resolved Date Kidney stones 10/01/2015 10/20/2016 documented as of this encounter (statuses as of 07/27/2022) [address] History of Past illness Narrative* Problem Noted Date Resolved Date Kidney stones 10/01/2015 10/20/2016 documented as of this encounter (statuses as of 07/27/2022) [address] History of Past illness Narrative* Problem Noted Date Resolved Date Kidney stones 10/01/2015 10/20/2016 documented as of this encounter (statuses as of 07/28/2022) [address]2016 History of Past illness Narrative* Problem Noted Date Resolved Date Kidney stones 10/01/2015 10/20/2016 documented as of this encounter (statuses as of 07/29/2022) [address] History of Past illness Narrative* Problem Noted Date Resolved Date Kidney stones 10/01/2015 10/20/2016 documented as of this encounter (statuses as of 08/16/2022) [address] History of Past illness Narrative* Problem Noted Date Resolved Date Kidney stones 10/01/2015 10/20/2016 documented as of this encounter (statuses as of 08/18/2022) [address]2016 History of Past illness Narrative* Problem Noted Date Resolved Date Kidney stones 10/01/2015 10/20/2016 documented as of this encounter (statuses as of 08/19/2022) [address] History of Past illness Narrative* Problem Noted Date Resolved Date Kidney stones 10/01/2015 10/20/2016 documented as of this encounter (statuses as of 08/19/2022) [address] History of Past illness Narrative* Problem Noted Date Resolved Date Kidney stones 10/01/2015 10/20/2016 documented as of this encounter (statuses as of 08/19/2022) [address] History of Past illness Narrative* Problem Noted Date Resolved Date Kidney stones 10/01/2015 10/20/2016 documented as of this encounter (statuses as of 08/22/2022) [address] History of Past illness Narrative* Problem Noted Date Resolved Date Kidney stones 10/01/2015 10/20/2016 documented as of this encounter (statuses as of 08/24/2022) [address] History of Past illness Narrative* Problem Noted Date Resolved Date Kidney stones 10/01/2015 10/20/2016 documented as of this encounter (statuses as of 08/25/2022) [address] History of Past illness Narrative* Problem Noted Date Resolved Date Kidney stones 10/01/2015 10/20/2016 documented as of this encounter (statuses as of 08/25/2022) [address] History of Past illness Narrative* Problem Noted Date Resolved Date Kidney stones 10/01/2015 10/20/2016 documented as of this encounter (statuses as of 08/30/2022) [address] History of Past illness Narrative* Problem Noted Date Resolved Date Kidney stones 10/01/2015 10/20/2016 documented as of this encounter (statuses as of 09/02/2022) [address] History of Past illness Narrative* Problem Noted Date Resolved Date Kidney stones 10/01/2015 10/20/2016 documented as of this encounter (statuses as of 09/06/2022) [address] History of Past illness Narrative* Problem Noted Date Resolved Date Kidney stones 10/01/2015 10/20/2016 documented as of this encounter (statuses as of 09/14/2022) [address] History of Past illness Narrative* Problem Noted Date Resolved Date Kidney stones 10/01/2015 10/20/2016 documented as of this encounter (statuses as of 09/17/2022) [address] History of Past illness Narrative* Problem Noted Date Resolved Date Kidney stones 10/01/2015 10/20/2016 documented as of this encounter (statuses as of 09/24/2022) [address] History of Past illness Narrative* Problem Noted Date Diagnosed Date Resolved Date Kidney stones 10/01/2015 10/20/2016 documented as of this encounter (statuses as of 10/18/2022) [address] History of Past illness Narrative* Problem Noted Date Diagnosed Date Resolved Date Kidney stones 10/01/2015 10/20/2016 documented as of this encounter (statuses as of 10/25/2022) [facility]14-2016 History of Past illness Narrative* Problem Noted Date Diagnosed Date Resolved Date Kidney stones 10/01/2015 10/20/2016 documented as of this encounter (statuses as of 10/27/2022) [address] History of Past illness Narrative* Problem Noted Date Diagnosed Date Resolved Date Kidney stones 10/01/2015 10/20/2016 documented as of this encounter (statuses as of 10/31/2022) [address] History of Past illness Narrative* Problem Noted Date Diagnosed Date Resolved Date Kidney stones 10/01/2015 10/20/2016 documented as of this encounter (statuses as of 11/05/2022) [address] History of Past illness Narrative* Problem Noted Date Diagnosed Date Resolved Date Kidney stones 10/01/2015 10/20/2016 documented as of this encounter (statuses as of 11/10/2022) [address] History of Past illness Narrative* Problem Noted Date Diagnosed Date Resolved Date Kidney stones 10/01/2015 10/20/2016 documented as of this encounter (statuses as of 11/15/2022) [address] History of Past illness Narrative* Problem Noted Date Diagnosed Date Resolved Date Kidney stones 10/01/2015 10/20/2016 documented as of this encounter (statuses as of 11/18/2022) [address] History of Past illness Narrative* Problem Noted Date Diagnosed Date Resolved Date Kidney stones 10/01/2015 10/20/2016 documented as of this encounter (statuses as of 11/20/2022) [address] History of Past illness Narrative* Problem Noted Date Diagnosed Date Resolved Date Kidney stones 10/01/2015 10/20/2016 documented as of this encounter (statuses as of 11/30/2022) [facility]14-2016 History of Past illness Narrative* Problem Noted Date Diagnosed Date Resolved Date Kidney stones 10/01/2015 10/20/2016 documented as of this encounter (statuses as of 12/02/2022) [address] History of Past illness Narrative* Problem Noted Date Diagnosed Date Resolved Date Kidney stones 10/01/2015 10/20/2016 documented as of this encounter (statuses as of 12/06/2022) [facility]2016 History of Past illness Narrative* Problem Noted Date Diagnosed Date Resolved Date Kidney stones 10/01/2015 10/20/2016 documented as of this encounter (statuses as of 12/06/2022) [facility]2016 History of Past illness Narrative* Problem Noted Date Diagnosed Date Resolved Date Kidney stones 10/01/2015 10/20/2016 documented as of this encounter (statuses as of 12/12/2022) [address] History of Past illness Narrative* Problem Noted Date Diagnosed Date Resolved Date Kidney stones 10/01/2015 10/20/2016 documented as of this encounter (statuses as of 12/12/2022) [facility]2016 History of Past illness Narrative* Problem Noted Date Diagnosed Date Resolved Date Kidney stones 10/01/2015 10/20/2016 documented as of this encounter (statuses as of 12/23/2022) [address] History of Past illness Narrative* Problem Noted Date Diagnosed Date Resolved Date Kidney stones 10/01/2015 10/20/2016 documented as of this encounter (statuses as of 12/24/2022) [address] History of Past illness Narrative* Problem Noted Date Diagnosed Date Resolved Date Kidney stones 10/01/2015 10/20/2016 documented as of this encounter (statuses as of 12/28/2022) [address] History of Past illness Narrative* Problem Noted Date Diagnosed Date Resolved Date Kidney stones 10/01/2015 10/20/2016 documented as of this encounter (statuses as of 01/05/2023) [address] History of Past illness Narrative* Problem Noted Date Diagnosed Date Resolved Date Kidney stones 10/01/2015 10/20/2016 documented as of this encounter (statuses as of 01/05/2023) [address] History of Past illness Narrative* Problem Noted Date Diagnosed Date Resolved Date Kidney stones 10/01/2015 10/20/2016 documented as of this encounter (statuses as of 01/18/2023) [address]2016 History of Past illness Narrative* Problem Noted Date Diagnosed Date Resolved Date Kidney stones 10/01/2015 10/20/2016 documented as of this encounter (statuses as of 01/22/2023) [address] History of Past illness Narrative* Problem Noted Date Diagnosed Date Resolved Date Kidney stones 10/01/2015 10/20/2016 documented as of this encounter (statuses as of 01/22/2023) [address] History of Past illness Narrative* Problem Noted Date Diagnosed Date Resolved Date Kidney stones 10/01/2015 10/20/2016 documented as of this encounter (statuses as of 01/22/2023) [address] History of Past illness Narrative* Problem Noted Date Diagnosed Date Resolved Date Kidney stones 10/01/2015 10/20/2016 documented as of this encounter (statuses as of 01/22/2023) [address] History of Past illness Narrative* Problem Noted Date Diagnosed Date Resolved Date Kidney stones 10/01/2015 10/20/2016 documented as of this encounter (statuses as of 01/22/2023) [address] History of Past illness Narrative* Problem Noted Date Diagnosed Date Resolved Date Kidney stones 10/01/2015 10/20/2016 documented as of this encounter (statuses as of 01/23/2023) [address] History of Past illness Narrative* Problem Noted Date Diagnosed Date Resolved Date Kidney stones 10/01/2015 10/20/2016 documented as of this encounter (statuses as of 01/26/2023) [address]2016 History of Past illness Narrative* Problem Noted Date Diagnosed Date Resolved Date Kidney stones 10/01/2015 10/20/2016 documented as of this encounter (statuses as of 02/03/2023) [address] History of Past illness Narrative* Problem Noted Date Diagnosed Date Resolved Date Kidney stones 10/01/2015 10/20/2016 documented as of this encounter (statuses as of 03/10/2023) [facility] note* Diagnosis Dental infection- Primary Acute apical periodontitis of pulpal origin [facility] Diagnosis Right knee pain, unspecified chronicity- Primary [facility] this [facility] Diagnosis Post-traumatic osteoarthritis of right knee- Primary Secondary localized osteoarthrosis, lower leg Chronic pain of right knee [facility] Diagnosis Post-traumatic osteoarthritis of right knee- Primary Secondary localized osteoarthrosis, lower leg Post-traumatic osteoarthritis of right knee Secondary localized osteoarthrosis, lower leg [facility] Diagnosis Post-traumatic osteoarthritis of right knee- Primary Secondary localized osteoarthrosis, lower leg Preop examination Preoperative examination, unspecified Post-traumatic osteoarthritis of right knee Secondary localized osteoarthrosis, lower leg [facility] Diagnosis Pre-operative examination- Primary Preoperative examination, unspecified Post-traumatic osteoarthritis of right knee Secondary localized osteoarthrosis, lower leg Essential hypertension Unspecified essential hypertension S/P insertion of spinal cord stimulator Headaches RSD (reflex sympathetic dystrophy) Reflex sympathetic dystrophy, unspecified Class 2 severe obesity due to excess calories with serious comorbidity and body mass index (BMI) of 35.0 to 35.9 in adult (HCC) Post-traumatic osteoarthritis of right knee Secondary localized osteoarthrosis, lower leg documented in this encounter [facility] note* Diagnosis Essential hypertension- Primary Unspecified essential hypertension Tobacco smoker, 1 pack of cigarettes or less per day Class 2 severe obesity due to excess calories with serious comorbidity and body mass index (BMI) of 35.0 to 35.9 in adult (HCC) At risk for obstructive sleep apnea Post-traumatic osteoarthritis of right knee Secondary localized osteoarthrosis, lower leg documented in this encounter [facility] note* Diagnosis Post-traumatic osteoarthritis of right knee Secondary localized osteoarthrosis, lower leg Preop examination Preoperative examination, unspecified Post-traumatic osteoarthritis of right knee Secondary localized osteoarthrosis, lower leg documented in this encounter [facility] note* Diagnosis S/P total knee arthroplasty, right documented in this encounter [facility] note* Diagnosis Status post total knee replacement, unspecified laterality- Primary documented in this encounter [facility] note* Diagnosis Post-traumatic osteoarthritis of right knee- Primary Secondary localized osteoarthrosis, lower leg Status post total right knee replacement documented in this encounter [facility] note* Diagnosis Essential hypertension- Primary Unspecified essential hypertension Urinary frequency Tobacco smoker, 1 pack of cigarettes or less per day documented in this encounter [facility] note* Diagnosis S/P total knee arthroplasty, right documented in this encounter [facility] note* Diagnosis S/P total knee arthroplasty, right documented in this encounter [facility] note* Diagnosis Essential hypertension Unspecified essential hypertension documented in this encounter [facility] note* Diagnosis Status post knee replacement, unspecified laterality- Primary documented in this encounter [facility] note* Diagnosis S/P total knee arthroplasty, right documented in this encounter [facility] note* Diagnosis Status post knee replacement, unspecified laterality- Primary documented in this encounter [facility] note* Diagnosis S/P total knee arthroplasty, right documented in this encounter [facility] note* Diagnosis S/P total knee arthroplasty, right documented in this encounter [facility] note* Diagnosis Status post knee replacement, unspecified laterality- Primary documented in this encounter [facility] note* Diagnosis S/P total knee arthroplasty, right documented in this encounter [facility] note* Diagnosis Hyperlipidemia, mixed- Primary Mixed hyperlipidemia documented in this encounter [facility] note* Diagnosis S/P total knee arthroplasty, right documented in this encounter [facility] note* Diagnosis Status post total right knee replacement- Primary documented in this encounter [facility] note* Diagnosis Status post total right knee replacement- Primary documented in this encounter [facility] note* Diagnosis Status post total right knee replacement- Primary documented in this encounter [facility] note* Diagnosis Post-op pain- Primary Other acute postoperative pain documented in this encounter [facility] note* Diagnosis RSD (reflex sympathetic dystrophy) Reflex sympathetic dystrophy, unspecified documented in this encounter [facility] note* Diagnosis Hyperlipidemia, mixed- Primary Mixed hyperlipidemia documented in this encounter [facility] note* Diagnosis Post-op pain Other acute postoperative pain documented in this encounter [facility] note* Diagnosis Post-op pain Other acute postoperative pain documented in this encounter [facility] note* Diagnosis Post-op pain Other acute postoperative pain documented in this encounter [facility] note* Diagnosis Post-op pain Other acute postoperative pain documented in this encounter [facility] note* Diagnosis Post-op pain Other acute postoperative pain documented in this encounter [facility] note* Diagnosis Post-op pain Other acute postoperative pain documented in this encounter [facility] note* Diagnosis Status post total right knee replacement- Primary documented in this encounter [facility] note* Diagnosis Post-op pain Other acute postoperative pain documented in this encounter [facility] note* Diagnosis Post-op pain- Primary Other acute postoperative pain Status post total right knee replacement documented in this encounter [facility] note* Diagnosis Post-op pain Other acute postoperative pain documented in this encounter [facility] note* Diagnosis Pain of right hip- Primary documented in this encounter [facility] note* Diagnosis Acute cough- Primary Viral bronchitis Acute bronchitis documented in this encounter [facility] note* Diagnosis Post-op pain Other acute postoperative pain documented in this encounter [facility] note* Diagnosis Right maxillary sinusitis- Primary Headache, unspecified headache type documented in this encounter [facility] note* Diagnosis Essential hypertension Unspecified essential hypertension documented in this encounter [facility] note* Diagnosis Post-op pain Other acute postoperative pain documented in this encounter [facility] note* Diagnosis Uncontrolled hypertension- Primary Unspecified essential hypertension Severe headache Headache Blurry vision, bilateral Other specified visual disturbances Right flank pain Abdominal pain, unspecified site Nausea Nausea alone History of kidney stones Personal history of urinary calculi Tobacco smoker, 1 pack of cigarettes or less per day Obesity, Class I, BMI 30-34.9 Obesity, unspecified At risk for sleep apnea documented in this encounter [facility] note* Diagnosis Essential hypertension Unspecified essential hypertension documented in this encounter [facility] note* Diagnosis Severe headache Headache documented in this encounter [facility] note* Diagnosis Left flank pain- Primary Abdominal pain, unspecified site Bilateral renal stones Uncontrolled hypertension Unspecified essential hypertension History of kidney stones Personal history of urinary calculi documented in this encounter [facility] note* Diagnosis Calculus of other lower urinary tract location- Primary Left flank pain Abdominal pain, unspecified site Bilateral renal stones [facility] Diagnosis Left flank pain Abdominal pain, unspecified site Bilateral renal stones documented in this encounter [facility] note* Diagnosis Left flank pain Abdominal pain, unspecified site Bilateral renal stones documented in this encounter [facility] note* Diagnosis Renal artery stenosis (HCC)- Primary Atherosclerosis of renal artery Essential hypertension Unspecified essential hypertension Anemia of renal disease Anemia in chronic kidney disease Stage 1 chronic kidney disease Vitamin D deficiency Unspecified vitamin D deficiency Hypertension, essential Unspecified essential hypertension Hyperuricemia Other abnormal blood chemistry Other proteinuria documented in this encounter [facility] note* Diagnosis Nephrolithiasis- Primary Calculus of kidney [facility] Diagnosis Uncontrolled hypertension- Primary Unspecified essential hypertension Renal artery stenosis (HCC) Atherosclerosis of renal artery Left flank pain Abdominal pain, unspecified site Bilateral renal stones Tobacco smoker, 1 pack of cigarettes or less per day documented in this encounter [facility] note* Diagnosis Uncontrolled hypertension- Primary Unspecified essential hypertension Renal artery stenosis (HCC) Atherosclerosis of renal artery Left flank pain Abdominal pain, unspecified site documented in this encounter [facility] note* Diagnosis Essential hypertension Unspecified essential hypertension [facility] Diagnosis Left flank pain Abdominal pain, unspecified site documented in this encounter [facility] note* Diagnosis Left flank pain Abdominal pain, unspecified site documented [facility] this [facility] Diagnosis Stage 1 chronic kidney disease- Primary Anemia of renal disease Anemia in chronic kidney disease Vitamin D deficiency Unspecified vitamin D deficiency Other proteinuria Essential hypertension Unspecified essential hypertension documented in this encounter [facility] note* Diagnosis 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 [facility] Diagnosis Vision changes- Primary Unspecified visual disturbance [facility] Diagnosis Acute intractable headache, unspecified headache type- Primary [facility] Diagnosis Uncontrolled hypertension- Primary Unspecified essential hypertension Chronic left flank pain Abdominal pain, unspecified site DDD (degenerative disc disease), lumbar Degeneration of lumbar or lumbosacral intervertebral disc DDD (degenerative disc disease), thoracic Degeneration of thoracic or thoracolumbar intervertebral disc Left flank pain Abdominal pain, unspecified site [facility] Pain of right hip [facility] Diagnosis Left flank pain Abdominal pain, unspecified site documented [facility] this [facility] Diagnosis Renal cyst Unspecified congenital cystic kidney disease [facility] Diagnosis Uncontrolled hypertension- Primary Unspecified essential hypertension At risk for sleep apnea Intractable headache, unspecified chronicity pattern, unspecified headache type Left flank pain Abdominal pain, unspecified site DDD (degenerative disc disease), lumbar Degeneration of lumbar or lumbosacral intervertebral disc Battery end of life of spinal cord stimulator Fitting and adjustment of neuropacemaker (brain) (peripheral nerve) (spinal cord) Nicotine use disorder, F17.2 Tobacco use disorder [facility] Diagnosis Intractable headache, unspecified chronicity pattern, unspecified headache type Left flank pain Abdominal pain, unspecified site documented in this [facility] Diagnosis Hypertension, unspecified type- Primary Mixed hyperlipidemia Obesity, Class I, BMI 30-34.9 Obesity, unspecified Nicotine use disorder, F17.2 Tobacco use disorder Class 2 severe obesity due to excess calories with serious comorbidity and body mass index (BMI) of 35.0 to 35.9 in adult RSD (reflex sympathetic dystrophy) Reflex sympathetic dystrophy, unspecified GRANADO (dyspnea on exertion) Other dyspnea and respiratory abnormality documented in this encounter [facility] home Plan of care note* Visit Details Visit Type -PT SOC Discipline -Physical Therapy Problems Problem Description Start Date Status Goals Interve ntions Medication Education Disciplines: Skilled Services 12/04/2021 Active 1 goal linked to scheduled/documen vance intervention 1 goal intervention scheduled/document ed in this visit Sepsis Disciplines: Skilled Services 12/04/2021 Active 1 goal linked to scheduled/documen vance intervention 1 goal intervention scheduled/document ed in this visit PT Referral Disciplines: Skilled Services 12/04/2021 Resolved on 12/04/2021 1 goal linked to scheduled/documen vance intervention 1 goal intervention scheduled/document ed in this visit Physician Specific Parameters Disciplines: Skilled Services 12/04/2021 Active 1 goal linked to scheduled/documen vance intervention 1 goal intervention scheduled/document ed in this visit Risk for Falls Disciplines: Skilled Services 12/04/2021 Active 1 goal linked to scheduled/documen vance intervention 1 goal intervention scheduled/document ed in this visit Nutrition/Hydrati on Disciplines: Skilled Services 12/04/2021 Active 1 goal linked to scheduled/documen vance intervention 1 goal intervention scheduled/document ed in this visit Discharge Disciplines: Skilled Services 12/04/2021 Active 1 goal linked to scheduled/documen vance intervention 1 goal intervention scheduled/document ed in this visit Advance Directives Disciplines: Skilled Services 12/04/2021 Resolved on 12/04/2021 1 goal linked to scheduled/documen vance intervention 1 goal intervention scheduled/document ed in this visit PT Impaired muscle performance and/or ROM Disciplines: PT 12/04/2021 Active 1 goal linked to scheduled/documen vance intervention 1 goal intervention scheduled/document ed in this visit PT Orthopedic Condition Disciplines: PT 12/04/2021 Active 1 goal linked to scheduled/documen vance intervention 3 goal interventions scheduled/document ed in this visit PT Learning Assessment Disciplines: PT 12/04/2021 Active 1 goal linked to scheduled/documen vance intervention 1 goal intervention scheduled/document ed in this visit Goals Goal Associated Problem Outcome Goal Met? Visit Notes Patient/caregiver will demonstrate ability to obtain, store, identify and administer ordered medications, keep accurate medication list in home, and adhere to medication schedule Description: Patient/caregiver will demonstrate ability to obtain, store, identify and administer ordered medications, keep accurate medication list in home, and adhere to medication schedule by 12/18/21. Medication Education No Patient/caregiver will be able to identify and report symptoms of sepsis Description: Patient/caregiver will be able to identify signs/symptoms of sepsis infection and will verbalize actions to take if suspected by 12/18/21. Sepsis No Patient will be referred to additional discipline as needed PT Referral Completed Yes Patient to maintain parameters within physician-specified ranges throughout certification period Physician Specific Parameters No Manage Risk for falls Description: Patient/caregiver will verbalize knowledge of individualized fall prevention strategies by 12/18/21. Risk for Falls No Manage Nutrition/Hydration Description: Patient/caregiver will verbalize/demonstrate knowledge of prescribed diet and/or healthy nutrition to be achieved by 12/18/21. Nutrition/Hydration No Manage discharge planning Description: Patient/caregiver will verbalize understanding of ongoing discharge plan provided related to disease management, arrangements for outpatient and/or community services, obtaining medications, supplies, and DME, as needed throughout certification period. Discharge No Patient/caregiver will make healthcare providers aware of and any changes to Advance Directives throughout certification period Advance Directives Completed Yes Improved Muscle Performance and/or ROM Description: STG: Patient and/or caregiver will verbalize/demonstrate independence with home exercise program, to improve functional mobility, to be achieved by 12/18/21. STG: Patient will demonstrate improved right knee active-assisted range of motion to 5-95 degrees, to meet functional goals, to be achieved by 12/18/21. PT Impaired muscle performance and/or ROM No Manage Orthopedic Condition Description: Improve patient and/or caregiver understanding of post surgical and/or non-surgical orthopedic intervention management as evidenced by patient and/or caregiver able to verbalize, demonstrate, and teach back instruction, to be achieved by 12/18/21. PT Orthopedic Condition No Demonstrate understanding of education Description: Patient and/or caregiver will understand educational instruction to be achieved by 12/18/21. PT Learning Assessment No Interventions Intervention Associated Problem/Goal Status Variance Visit Notes Medication Education Description: Evaluate/instruct patient/caregiver on obtaining, storing, identifying and administering ordered medications as well as keeping accurate medication list in the home and adhereing to medication schedule Problem:Medication Education Goal:Patient/caregive r will demonstrate ability to obtain, store, identify and administer ordered medications, keep accurate medication list in home, and adhere to medication schedule Completed Patient instructed on importance of keeping accurate medication list in home and adhering to medication schedule. Risk of Sepsis Description: Patient is at risk for sepsis. Monitor closely for s/s of sepsis. Problem:Sepsis Goal:Patient/caregive r will be able to identify and report symptoms of sepsis Completed PT evaluation and treatment Description: Evaluate and treat for the assessment of functional deficits and establishment of appropriate interventions and education, including recommendations for functional mobility training, balance training for fall reduction, and strengthening. Problem:PT Referral Goal:Patient will be referred to additional discipline as needed Completed SPO2 Description: Notify Dr. Bennett if pulse ox is <92% at rest. Problem:Physician Specific Parameters Goal:Patient to maintain parameters within physician-specified ranges throughout certification period Completed Instruct on individual fall risk factors and strategies to prevent falls and injuries caused by falls. Problem:Risk for Falls Goal:Manage Risk for falls Completed PT: Patient instructed on Eliminating Environmental Hazards: Keep pathways clear, Keep pets out of pathways, Remove unsafe rugs, Keep rooms and walkways well lit, Wear supportive shoes or non-skid socks and Keep frequently used items within reach Managing Impaired Functional Mobility: Use assistive device(s): front wheeled walker or crutches Define patient s appetite/hydration status and implement strategies to improve compliance with prescribed diet and/or healthy nutrition. Problem:Nutrition/Hyd ration Goal:Manage Nutrition/Hydration Completed instructed patient on implementing strategies to comply with healthy nutrition and adequate hydration Instruct on ongoing discharge plan Problem:Discharge Goal:Manage discharge planning Completed Ongoing Discharge plan: Discharge plan discussed with patient including frequency and duration for home PT and plan for transition to: outpatient therapy. Determine patient's Advance Directive Status Description: Patient does not have advance directives. Patient/Caregiver declined Advance Directive information. Problem:Advance Directives Goal:Patient/caregive r will make healthcare providers aware of and any changes to Advance Directives throughout certification period Completed Discussed Advance Directives with Patient and/or Caregiver. Referred patient to Home Care handbook for further information on Healthcare DPOA & Living Will. Physical Therapy Therapeutic Exercises Problem:PT Impaired muscle performance and/or ROM Goal:Improved Muscle Performance and/or ROM Completed patient instructed on strengthening and range of motion exercises including ankle pumps, quad and gluteal sets, and standing closed chain rt knee flexion with verbal, visual and written cues for technique. patient instructed to perform home exercise program hourly in addition to hourly ambulation during waking hours. Instruct on orthopedic precautions and weight bearing restrictions Description: Orthopedic precautions including right total knee: no knee flexed over pillow at rest and no twisting. Weight bearing restrictions include: WBAT of involved extremity. Problem:PT Orthopedic Condition Goal:Manage Orthopedic Condition Completed patient instructed on orthopedic precautions. Instruct on management of edema Problem:PT Orthopedic Condition Goal:Manage Orthopedic Condition Completed Instruct patient on management of edema including elevation of rt foot above the level of the heart, ice and benefits of activity. Instruct on self-management of post surgical and/or non-surgical orthopedic intervention Problem:PT Orthopedic Condition Goal:Manage Orthopedic Condition Completed patient instructed on staying well hydrated, eating foods with high protein, signs and symptoms of infection, signs and symptoms of DVT/PE, follow provider guidance for showering , instructed on when to call provider and instructed on when to call 911. Instruct and educate on knowledge deficits Problem:PT Learning Assessment Goal:Demonstrate understanding of education Completed patient verbalize and/or demonstrate understanding of physical therapy education including cardiac disease management, orthopedic condition management, surgical precautions, pain management, nutrition, fall prevention strategies, home safety, integumentary and incision/wound care management, infection control precautions, functional activity and home exercise program. Education methods include: verbal cues, written instructions and visual cues. Further education required to improve knowledge and compliance with cardiac disease management, orthopedic condition management, surgical precautions, pain management, nutrition, fall prevention strategies, home safety, integumentary and incision/wound care management, infection control precautions, functional activity and home exercise program. documented in this encounter [facility] home Plan of care note* Visit Details Visit Type -PT CASE MANAGEME NT VISIT Discipline -Physical Therapy Problems Problem Description Start Date Status Goals Interve ntions Medication Education Disciplines: Skilled Services 12/04/2021 Active 1 goal linked to scheduled/documen vance intervention 1 goal intervention scheduled/document ed in this visit Sepsis Disciplines: Skilled Services 12/04/2021 Active 1 goal linked to scheduled/documen vance intervention 1 goal intervention scheduled/document ed in this visit Physician Specific Parameters Disciplines: Skilled Services 12/04/2021 Active 1 goal linked to scheduled/documen vance intervention 1 goal intervention scheduled/document ed in this visit Pain Disciplines: Skilled Services 12/04/2021 Active 1 goal linked to scheduled/documen vance intervention 1 goal intervention scheduled/document ed in this visit High Risk Medications Disciplines: Skilled Services 12/04/2021 Active 1 goal linked to scheduled/documen vance intervention 1 goal intervention scheduled/document ed in this visit PT Impaired muscle performance and/or ROM Disciplines: PT 12/04/2021 Active 1 goal linked to scheduled/documen vance intervention 1 goal intervention scheduled/document ed in this visit PT Impaired mobility Disciplines: PT 12/04/2021 Active 1 goal linked to scheduled/documen vance intervention 1 goal intervention scheduled/document ed in this visit PT Impaired gait Disciplines: PT 12/04/2021 Active 1 goal linked to scheduled/documen vance intervention 1 goal intervention scheduled/document ed in this visit PT Orthopedic Condition Disciplines: PT 12/04/2021 Active 1 goal linked to scheduled/documen vance intervention 3 goal interventions scheduled/document ed in this visit PT Learning Assessment Disciplines: PT 12/04/2021 Active 1 goal linked to scheduled/documen vance intervention 1 goal intervention scheduled/document ed in this visit PT Cardiovascular Disease Disciplines: PT 12/04/2021 Active 1 goal linked to scheduled/documen vance intervention 1 goal intervention scheduled/document ed in this visit Goals Goal Associated Problem Outcome Goal Met? Visit Notes Patient/caregiver will demonstrate ability to obtain, store, identify and administer ordered medications, keep accurate medication list in home, and adhere to medication schedule Description: Patient/caregiver will demonstrate ability to obtain, store, identify and administer ordered medications, keep accurate medication list in home, and adhere to medication schedule by 12/18/21. Medication Education No Patient/caregiver will be able to identify and report symptoms of sepsis Description: Patient/caregiver will be able to identify signs/symptoms of sepsis infection and will verbalize actions to take if suspected by 12/18/21. Sepsis No Patient to maintain parameters within physician-specified ranges throughout certification period Physician Specific Parameters No Manage Pain Description: Patient/caregiver will verbalize knowledge and understanding of appropriate techniques to control pain, including pain medication and non-pharmacological techniques. Patient will verbalize or demonstrate an acceptable level of pain as evidenced by a max pain score of 5/10 and improvement in ability to perform activities of daily living to be achieved by 12/18/21. Pain No Patient/caregiver will teach back high risk medication side effect and precaution education High Risk Medications No Improved Muscle Performance and/or ROM Description: STG: Patient and/or caregiver will verbalize/demonstrate independence with home exercise program, to improve functional mobility, to be achieved by 12/18/21. STG: Patient will demonstrate improved right knee active-assisted range of motion to 5-95 degrees, to meet functional goals, to be achieved by 12/18/21. PT Impaired muscle performance and/or ROM No Improved Transfers Description: STG: Patient will demonstrate safe transfers to/from bed, chair and toilet independently, to be achieved by 12/18/21. PT Impaired mobility No Improved Gait Description: STG: Patient will demonstrate improved gait ability as evidenced by ambulation 150 feet with crutches independently with AD, in order to access all areas of house and driveway, to be achieved by 12/18/21. PT Impaired gait No Manage Orthopedic Condition Description: Improve patient and/or caregiver understanding of post surgical and/or non-surgical orthopedic intervention management as evidenced by patient and/or caregiver able to verbalize, demonstrate, and teach back instruction, to be achieved by 12/18/21. PT Orthopedic Condition No Demonstrate understanding of education Description: Patient and/or caregiver will understand educational instruction to be achieved by 12/18/21. PT Learning Assessment No Manage Secondary Cardiovascular disease Description: Improve patient and/or caregiver understanding of secondary cardiovascular disease management as evidenced by patient and/or caregiver able to verbalize, demonstrate, and teach back instruction, to be achieved by 12/18/21. PT Cardiovascular Disease No Interventions Intervention Associated Problem/Goal Status Variance Visit Notes Medication Education Description: Evaluate/instruct patient/caregiver on obtaining, storing, identifying and administering ordered medications as well as keeping accurate medication list in the home and adhereing to medication schedule Problem:Medication Education Goal:Patient/caregive r will demonstrate ability to obtain, store, identify and administer ordered medications, keep accurate medication list in home, and adhere to medication schedule Completed Patient instructed on importance of keeping accurate medication list in home and adhering to medication schedule. Risk of Sepsis Description: Patient is at risk for sepsis. Monitor closely for s/s of sepsis. Problem:Sepsis Goal:Patient/caregive r will be able to identify and report symptoms of sepsis Completed SPO2 Description: Notify Dr. Bennett if pulse ox is <92% at rest. Problem:Physician Specific Parameters Goal:Patient to maintain parameters within physician-specified ranges throughout certification period Completed Instruct on pain and instruct on strategies to control pain Problem:Pain Goal:Manage Pain Completed patient instructed on techniques to control pain including Pharmacological measures and Non-Pharmacological measures; rest, positioning/elevation and use of thermal modalities, apply ice to affected area pt not utilizing ice nearly enough. Advised pt/sposue to ice more often and use the ice machine . Opioids- Instruct on high risk medication Problem:High Risk Medications Goal:Patient/caregive r will teach back high risk medication side effect and precaution education Completed patient instructed on the following: Possible side effects of opioid medication including sedation, decreased rate of breathing, and constipation. Instructed on reporting over sedation to prescribing physician, practice deep breathing techniques every hour while awake, and prevention of constipation by increasing water and fiber intake, increase activity as tolerated, and use stool softener as prescribed. Only take opioids as prescribed, do not share your medications, and take proper precautions in storing and properly disposing of opioids once no longer needed. Follow providers guidelines for driving and weaning from prescribed opioid. Physical Therapy Therapeutic Exercises Problem:PT Impaired muscle performance and/or ROM Goal:Improved Muscle Performance and/or ROM Completed patient instructed on strengthening and range of motion exercises including Supine : GS,QS,HS, HIPADD, HIP BD, HEEL SLIDES, SAQ, X 10 supine passive knee ext x 1 1/2 min seated knee flexion to 68* with verbal cues for technique . patient instructed to perform home exercise program twice a day which included hourly walking . Physical Therapy Transfer Training Problem:PT Impaired mobility Goal:Improved Transfers Completed Transfer training and instruction to patient on safe transfers to and from couch with stand by assist and verbal cues for supine to sit off of couch . Physical Therapy Gait Training Problem:PT Impaired gait Goal:Improved Gait Completed Gait training and instruction to patient on safe ambulation with front wheeled walker for 20' x 4 feet with stand by assist, with verbal cues for corrections of gait deviations including slow, step togehter stiff legged gait . Instruct on orthopedic precautions and weight bearing restrictions Description: Orthopedic precautions including right total knee: no knee flexed over pillow at rest and no twisting. Weight bearing restrictions include: WBAT of involved extremity. Problem:PT Orthopedic Condition Goal:Manage Orthopedic Condition Completed patient instructed on orthopedic precautions and weight bearing restrictions. Instruct on management of edema Problem:PT Orthopedic Condition Goal:Manage Orthopedic Condition Completed Instruct patient on management of edema including elevation of RLE above the level of the heart and ice. Instruct on self-management of post surgical and/or non-surgical orthopedic intervention Problem:PT Orthopedic Condition Goal:Manage Orthopedic Condition Completed patient instructed on managagement of orthopedic condition, signs and symptoms of infection, signs and symptoms of DVT/PE, follow provider guidance for showering and instructed on when to call provider. Instruct and educate on knowledge deficits Problem:PT Learning Assessment Goal:Demonstrate understanding of education Completed patient verbalize and/or demonstrate understanding of physical therapy education including cardiac disease management, orthopedic condition management, weight bearing precautions, surgical precautions, pain management, fall prevention strategies and home safety. Education methods include: verbal cues and tactile cues. Further education required to improve knowledge and compliance with cardiac disease management, orthopedic condition management, surgical precautions, pain management, fall prevention strategies, home safety, functional activity and home exercise program. Instruct on signs, symptoms, and management of secondary cardiovascular disease Problem:PT Cardiovascular Disease Goal:Manage Secondary Cardiovascular disease Completed Instructed patient on blood pressure tracking and instructed on when to call provider. [facility] Visit Details Visit Type -[employer]IN[employer] Discipline -Physical Therapy Problems Problem Description Start Date Status Goals Interve ntions Medication Education Disciplines: Skilled Services 12/04/2021 Active 1 goal linked to scheduled/document ed intervention 1 goal intervention scheduled/documen vance in this visit Sepsis Disciplines: Skilled Services 12/04/2021 Active 1 goal linked to scheduled/document ed intervention 1 goal intervention scheduled/documen vance in this visit Physician Specific Parameters Disciplines: Skilled Services 12/04/2021 Active 1 goal linked to scheduled/document ed intervention 1 goal intervention scheduled/documen vance in this visit Risk for Falls Disciplines: Skilled Services 12/04/2021 Active 1 goal linked to scheduled/document ed intervention 1 goal intervention scheduled/documen vance in this visit Pain Disciplines: Skilled Services 12/04/2021 Active 1 goal linked to scheduled/document ed intervention 1 goal intervention scheduled/documen vance in this visit Discharge Disciplines: Skilled Services 12/04/2021 Active 1 goal linked to scheduled/document ed intervention 1 goal intervention scheduled/documen vance in this visit PT Impaired muscle performance and/or ROM Disciplines: PT 12/04/2021 Active 1 goal linked to scheduled/document ed intervention 1 goal intervention scheduled/documen vance in this visit PT Impaired gait Disciplines: PT 12/04/2021 Active 2 goals linked to scheduled/document ed interventions 2 goal interventions scheduled/documen vance in this visit PT Orthopedic Condition Disciplines: PT 12/04/2021 Active 1 goal linked to scheduled/document ed intervention 4 goal interventions scheduled/documen vance in this visit PT Learning Assessment Disciplines: PT 12/04/2021 Active 1 goal linked to scheduled/document ed intervention 1 goal intervention scheduled/documen vance in this visit PT Cardiovascular Disease Disciplines: PT 12/04/2021 Active 1 goal linked to scheduled/document ed intervention 1 goal intervention scheduled/documen vance in this visit Goals Goal Associated Problem Outcome Goal Met? Visit Notes Patient/caregiver will demonstrate ability to obtain, store, identify and administer ordered medications, keep accurate medication list in home, and adhere to medication schedule Description: Patient/caregiver will demonstrate ability to obtain, store, identify and administer ordered medications, keep accurate medication list in home, and adhere to medication schedule by 12/18/21. Medication Education No Patient/caregiver will be able to identify and report symptoms of sepsis Description: Patient/caregiver will be able to identify signs/symptoms of sepsis infection and will verbalize actions to take if suspected by 12/18/21. Sepsis No Patient to maintain parameters within physician-specified ranges throughout certification period Physician Specific Parameters No Manage Risk for falls Description: Patient/caregiver will verbalize knowledge of individualized fall prevention strategies by 12/18/21. Risk for Falls No Manage Pain Description: Patient/caregiver will verbalize knowledge and understanding of appropriate techniques to control pain, including pain medication and non-pharmacological techniques. Patient will verbalize or demonstrate an acceptable level of pain as evidenced by a max pain score of 5/10 and improvement in ability to perform activities of daily living to be achieved by 12/18/21. Pain No Manage discharge planning Description: Patient/caregiver will verbalize understanding of ongoing discharge plan provided related to disease management, arrangements for outpatient and/or community services, obtaining medications, supplies, and DME, as needed throughout certification period. Discharge No Improved Muscle Performance and/or ROM Description: STG: Patient and/or caregiver will verbalize/demonstrate independence with home exercise program, to improve functional mobility, to be achieved by 12/18/21. STG: Patient will demonstrate improved right knee active-assisted range of motion to 5-95 degrees, to meet functional goals, to be achieved by 12/18/21. PT Impaired muscle performance and/or ROM No Improved Stair Climbing Description: STG:: Patient will demonstrate improved stair negotiation as evidenced by ascend/descend 1 flt steps with railing independent, to be achieved by 12/18/21. PT Impaired gait No Improved Gait Description: STG: Patient will demonstrate improved gait ability as evidenced by ambulation 150 feet with crutches independently with AD, in order to access all areas of house and driveway, to be achieved by 12/18/21. PT Impaired gait No Manage Orthopedic Condition Description: Improve patient and/or caregiver understanding of post surgical and/or non-surgical orthopedic intervention management as evidenced by patient and/or caregiver able to verbalize, demonstrate, and teach back instruction, to be achieved by 12/18/21. PT Orthopedic Condition No Demonstrate understanding of education Description: Patient and/or caregiver will understand educational instruction to be achieved by 12/18/21. PT Learning Assessment No Manage Secondary Cardiovascular disease Description: Improve patient and/or caregiver understanding of secondary cardiovascular disease management as evidenced by patient and/or caregiver able to verbalize, demonstrate, and teach back instruction, to be achieved by 12/18/21. PT Cardiovascular Disease No Interventions Intervention Associated Problem/Goal Status Variance Visit Notes Medication Education Description: Evaluate/instruct patient/caregiver on obtaining, storing, identifying and administering ordered medications as well as keeping accurate medication list in the home and adhereing to medication schedule Problem:Medication Education Goal:Patient/caregive r will demonstrate ability to obtain, store, identify and administer ordered medications, keep accurate medication list in home, and adhere to medication schedule Completed Patient and Caregiver instructed on importance of keeping accurate medication list in home and adhering to medication schedule. Risk of Sepsis Description: Patient is at risk for sepsis. Monitor closely for s/s of sepsis. Problem:Sepsis Goal:Patient/caregive r will be able to identify and report symptoms of sepsis Completed SPO2 Description: Notify Dr. Bennett if pulse ox is <92% at rest. Problem:Physician Specific Parameters Goal:Patient to maintain parameters within physician-specified ranges throughout certification period Completed Instruct on individual fall risk factors and strategies to prevent falls and injuries caused by falls. Problem:Risk for Falls Goal:Manage Risk for falls Completed PT: Patient instructed on Managing Impaired Functional Mobility: Use assistive device(s): front wheeled walker Instruct on pain and instruct on strategies to control pain Problem:Pain Goal:Manage Pain Completed patient instructed on techniques to control pain including Pharmacological measures and Non-Pharmacological measures; positioning/elevation and use of thermal modalities, apply ice to affected area for the following prescribed frequency: several times/day. Instruct on ongoing discharge plan Problem:Discharge Goal:Manage discharge planning Completed Ongoing Discharge plan: Discharge plan discussed with patient including frequency and duration for home PT and plan for transition to: outpatient therapy. Physical Therapy Therapeutic Exercises Problem:PT Impaired muscle performance and/or ROM Goal:Improved Muscle Performance and/or ROM Completed patient instructed on strengthening and range of motion exercises including ankle pumps, quad and glut sets, hip abd and adduction, saq and heel slides x's 10 each. supine [id number]. seated heel slides x's 10 step flexion stretch x's 5 w/ 10sechold with verbal and visual cues for correct form. patient instructed to perform home exercise program twice a day which included above exercises and hourly walking. Physical Therapy Stair Training Problem:PT Impaired gait Goal:Improved Stair Climbing Completed Stair training and instruction to patient on safe stair climbing, ascend/descend 3 steps, without railing and with crutches with supervision and verbal cues for correct step pattern. Physical Therapy Gait Training Problem:PT Impaired gait Goal:Improved Gait Completed Gait training and instruction to patient on safe ambulation with standard walker for 20 feet x's4 with stand by assist, with verbal and visual cues for corrections of gait deviations including heel to toe pattern. Instruct on orthopedic precautions and weight bearing restrictions Description: Orthopedic precautions including right total knee: no knee flexed over pillow at rest and no twisting. Weight bearing restrictions include: WBAT of involved extremity. Problem:PT Orthopedic Condition Goal:Manage Orthopedic Condition Completed patient instructed on orthopedic precautions. Instruct on management of edema Problem:PT Orthopedic Condition Goal:Manage Orthopedic Condition Completed Instruct patient on management of edema including elevation of RLE above the level of the heart and ice. Physical therapy to perform surgical incision/wound management Description: Removal of post-op dressing on 12/08/21. If no drainage is present, leave open to air; if drainage is present, cover with clean dressing and contact provider. Problem:PT Orthopedic Condition Goal:Manage Orthopedic Condition Completed Intervention completed this date. With patients consent, picture obtained and uploaded to chart Instruct on self-management of post surgical and/or non-surgical orthopedic intervention Problem:PT Orthopedic Condition Goal:Manage Orthopedic Condition Completed patient instructed on incision care: no lotions/creams or rubbing, signs and symptoms of infection, signs and symptoms of DVT/PE, instructed on when to call provider and instructed on when to call 911. Instruct and educate on knowledge deficits Problem:PT Learning Assessment Goal:Demonstrate understanding of education Completed patient verbalize and/or demonstrate understanding of physical therapy education including pain management and home exercise program. Education methods include: verbal cues. Further education required to improve knowledge and compliance with home exercise program. Instruct on signs, symptoms, and management of secondary cardiovascular disease Problem:PT Cardiovascular Disease Goal:Manage Secondary Cardiovascular disease Completed Instructed patient and caregiver on exercise and activity guidelines, blood pressure tracking and instructed on when to call provider. [facility] Visit Details Visit Type -[employer] Discipline -Physical Therapy Problems Problem Description Start Date Status Goals Interve ntions Medication Education Disciplines: Skilled Services 12/04/2021 Active 1 goal linked to scheduled/documen vance intervention 1 goal intervention scheduled/document ed in this visit Physician Specific Parameters Disciplines: Skilled Services 12/04/2021 Active 1 goal linked to scheduled/documen vance intervention 1 goal intervention scheduled/document ed in this visit Risk for Falls Disciplines: Skilled Services 12/04/2021 Active 1 goal linked to scheduled/documen vance intervention 1 goal intervention scheduled/document ed in this visit Nutrition/Hydration Disciplines: Skilled Services 12/04/2021 Active 1 goal linked to scheduled/documen vance intervention 1 goal intervention scheduled/document ed in this visit PT Impaired Aerobic Capacity Disciplines: PT 12/04/2021 Active 1 goal linked to scheduled/documen vance intervention 1 goal intervention scheduled/document ed in this visit PT Impaired muscle performance and/or ROM Disciplines: PT 12/04/2021 Active 1 goal linked to scheduled/documen vance intervention 1 goal intervention scheduled/document ed in this visit PT Impaired gait Disciplines: PT 12/04/2021 Active 1 goal linked to scheduled/documen vance intervention 1 goal intervention scheduled/document ed in this visit PT Orthopedic Condition Disciplines: PT 12/04/2021 Active 1 goal linked to scheduled/documen vance intervention 2 goal interventions scheduled/document ed in this visit PT Cardiovascular Disease Disciplines: PT 12/04/2021 Active 1 goal linked to scheduled/documen vance intervention 1 goal intervention scheduled/document ed in this visit Goals Goal Associated Problem Outcome Goal Met? Visit Notes Patient/caregiver will demonstrate ability to obtain, store, identify and administer ordered medications, keep accurate medication list in home, and adhere to medication schedule Description: Patient/caregiver will demonstrate ability to obtain, store, identify and administer ordered medications, keep accurate medication list in home, and adhere to medication schedule by 12/18/21. Medication Education No Patient to maintain parameters within physician-specified ranges throughout certification period Physician Specific Parameters No Manage Risk for falls Description: Patient/caregiver will verbalize knowledge of individualized fall prevention strategies by 12/18/21. Risk for Falls No Manage Nutrition/Hydration Description: Patient/caregiver will verbalize/demonstrate knowledge of prescribed diet and/or healthy nutrition to be achieved by 12/18/21. Nutrition/Hydration No Improved Aerobic Capacity Description: STG: Patient will demonstrate improved aerobic capacity to meet functional goals as evidenced by Rate of Percieved Exertion (RPE) of 5-6/10 during all standing activity, to be achieved by 12/18/21. PT Impaired Aerobic Capacity No Improved Muscle Performance and/or ROM Description: STG: Patient and/or caregiver will verbalize/demonstrate independence with home exercise program, to improve functional mobility, to be achieved by 12/18/21. STG: Patient will demonstrate improved right knee active-assisted range of motion to 5-95 degrees, to meet functional goals, to be achieved by 12/18/21. PT Impaired muscle performance and/or ROM No Improved Gait Description: STG: Patient will demonstrate improved gait ability as evidenced by ambulation 150 feet with crutches independently with AD, in order to access all areas of house and driveway, to be achieved by 12/18/21. PT Impaired gait No Manage Orthopedic Condition Description: Improve patient and/or caregiver understanding of post surgical and/or non-surgical orthopedic intervention management as evidenced by patient and/or caregiver able to verbalize, demonstrate, and teach back instruction, to be achieved by 12/18/21. PT Orthopedic Condition No Manage Secondary Cardiovascular disease Description: Improve patient and/or caregiver understanding of secondary cardiovascular disease management as evidenced by patient and/or caregiver able to verbalize, demonstrate, and teach back instruction, to be achieved by 12/18/21. PT Cardiovascular Disease No Interventions Intervention Associated Problem/Goal Status Variance Visit Notes Medication Education Description: Evaluate/instruct patient/caregiver on obtaining, storing, identifying and administering ordered medications as well as keeping accurate medication list in the home and adhereing to medication schedule Problem:Medication Education Goal:Patient/caregiver will demonstrate ability to obtain, store, identify and administer ordered medications, keep accurate medication list in home, and adhere to medication schedule Completed Patient instructed on importance of keeping accurate medication list in home and adhering to medication schedule. SPO2 Description: Notify Dr. Bennett if pulse ox is <92% at rest. Problem:Physician Specific Parameters Goal:Patient to maintain parameters within physician-specified ranges throughout certification period Completed Instruct on individual fall risk factors and strategies to prevent falls and injuries caused by falls. Problem:Risk for Falls Goal:Manage Risk for falls Completed PT: Patient instructed on Eliminating Environmental Hazards: Wear supportive shoes or non-skid socks Managing Impaired Functional Mobility: Use assistive device(s): front wheeled walker Managing Pain Define patient s appetite/hydration status and implement strategies to improve compliance with prescribed diet and/or healthy nutrition. Problem:Nutrition/Hydr ation Goal:Manage Nutrition/Hydration Completed instructed patient on implementing strategies to comply with healthy nutrition and adequate hydration Physical Therapy Aerobic Capacity Training Problem:PT Impaired Aerobic Capacity Goal:Improved Aerobic Capacity Completed patient instructed on utilization of the Rate of Percieved Exertion (RPE) scale, to not exceed 3-6/10 indicating moderate to heavy intensity of activity. Developed, implemented, and instructed patient on physical therapy interventions completing 2-3 minutes of paced standing activity. Physical Therapy Therapeutic Exercises Problem:PT Impaired muscle performance and/or ROM Goal:Improved Muscle Performance and/or ROM Completed patient instructed on strengthening and range of motion exercises including AP, QS, GS, supine HS, SAQ, SLR, seated HS, LAQ, and initiated standing exercise holding on at kitchen sink for stability: calf raises and ham curls 10x each with rest in between each. Added that pt can perform standing hip abd at sink as well in place on supine hip abd due to commenting that it was causing pulling in groin when performing supine. verbal, visual and written cues for breathing and pacing, encouraging to take breaks and not push through pain. patient instructed to perform home exercise program 3-4x/day which included above. AROM R knee supine 0-72*. Seated R knee flex actively 76*, Physical Therapy Gait Training Problem:PT Impaired gait Goal:Improved Gait Completed Gait training and instruction to patient on safe ambulation with front wheeled walker for 100 feet with supervision with verbal, tactile and visual cues for corrections of gait deviations including fwd posture and unequal step length. Instructed to keep within back 1/3 of walker as he proceeded with step-through gait pattern. Instruct on orthopedic precautions and weight bearing restrictions Description: Orthopedic precautions including right total knee: no knee flexed over pillow at rest and no twisting. Weight bearing restrictions include: WBAT of involved extremity. Problem:PT Orthopedic Condition Goal:Manage Orthopedic Condition Completed patient instructed on orthopedic precautions. Instruct on management of edema Problem:PT Orthopedic Condition Goal:Manage Orthopedic Condition Completed Instruct patient on management of edema including elevation of RLE above the level of the heart, ice and benefits of activity. Instruct on signs, symptoms, and management of secondary cardiovascular disease Problem:PT Cardiovascular Disease Goal:Manage Secondary Cardiovascular disease Completed Instructed patient and caregiver on exercise and activity guidelines, blood pressure tracking and instructed on when to call provider. [facility] Visit Details Visit Type -PT [facility] Discipline -Physical Therapy Problems Problem Description Start Date Status Goals Interve ntions Medication Education Disciplines: Skilled Services 12/04/2021 Resolved on 12/16/2021 1 goal linked to scheduled/stewn vance intervention 1 goal intervention scheduled/documen vance in this visit Sepsis Disciplines: Skilled Services 12/04/2021 Resolved on 12/16/2021 1 goal linked to scheduled/documen vance intervention 1 goal intervention scheduled/documen vance in this visit Physician Specific Parameters Disciplines: Skilled Services 12/04/2021 Resolved on 12/16/2021 1 goal linked to scheduled/documen vance intervention 1 goal intervention scheduled/documen vance in this visit Risk for Falls Disciplines: Skilled Services 12/04/2021 Resolved on 12/16/2021 1 goal linked to scheduled/documen vance intervention 1 goal intervention scheduled/documen vance in this visit Pain Disciplines: Skilled Services 12/04/2021 Resolved on 12/16/2021 1 goal linked to scheduled/documen vance intervention 1 goal intervention scheduled/documen vance in this visit Nutrition/Hydration Disciplines: Skilled Services 12/04/2021 Resolved on 12/16/2021 1 goal linked to scheduled/documen vance intervention 1 goal intervention scheduled/documen vance in this visit High Risk Medications Disciplines: Skilled Services 12/04/2021 Resolved on 12/16/2021 1 goal linked to scheduled/documen vance intervention Discharge Disciplines: Skilled Services 12/04/2021 Resolved on 12/16/2021 1 goal linked to scheduled/documen vance intervention 1 goal intervention scheduled/documen vance in this visit PT Impaired Aerobic Capacity Disciplines: PT 12/04/2021 Resolved on 12/16/2021 1 goal linked to scheduled/documen vance intervention PT Impaired muscle performance and/or ROM Disciplines: PT 12/04/2021 Resolved on 12/16/2021 1 goal linked to scheduled/documen vance intervention 1 goal intervention scheduled/documen vance in this visit PT Impaired mobility Disciplines: PT 12/04/2021 Resolved on 12/16/2021 2 goals linked to scheduled/documen vanec interventions PT Impaired gait Disciplines: PT 12/04/2021 Resolved on 12/16/2021 2 goals linked to scheduled/documen vance interventions 1 goal intervention scheduled/documen vance in this visit PT Impaired balance Disciplines: PT 12/04/2021 Resolved on 12/16/2021 1 goal linked to scheduled/documen vance intervention PT Orthopedic Condition Disciplines: PT 12/04/2021 Resolved on 12/16/2021 1 goal linked to scheduled/documen vance intervention 1 goal intervention scheduled/documen vance in this visit PT Learning Assessment Disciplines: PT 12/04/2021 Resolved on 12/16/2021 1 goal linked to scheduled/documen vance intervention 1 goal intervention scheduled/documen vance in this visit PT Cardiovascular Disease Disciplines: PT 12/04/2021 Resolved on 12/16/2021 1 goal linked to scheduled/documen vance intervention Goals Goal Associated Problem Outcome Goal Met? Visit Notes Patient/caregiver will demonstrate ability to obtain, store, identify and administer ordered medications, keep accurate medication list in home, and adhere to medication schedule Description: Patient/caregiver will demonstrate ability to obtain, store, identify and administer ordered medications, keep accurate medication list in home, and adhere to medication schedule by 12/18/21. Medication Education Completed Yes met Patient/caregiver will be able to identify and report symptoms of sepsis Description: Patient/caregiver will be able to identify signs/symptoms of sepsis infection and will verbalize actions to take if suspected by 12/18/21. Sepsis Completed Yes met Patient to maintain parameters within physician-specified ranges throughout certification period Physician Specific Parameters Completed Yes met Manage Risk for falls Description: Patient/caregiver will verbalize knowledge of individualized fall prevention strategies by 12/18/21. Risk for Falls Completed Yes met Manage Pain Description: Patient/caregiver will verbalize knowledge and understanding of appropriate techniques to control pain, including pain medication and non-pharmacological techniques. Patient will verbalize or demonstrate an acceptable level of pain as evidenced by a max pain score of 5/10 and improvement in ability to perform activities of daily living to be achieved by 12/18/21. Pain Completed Yes partially met. Pain 4-8/10, reports does not impactfunctional abilities Manage Nutrition/Hydration Description: Patient/caregiver will verbalize/demonstrate knowledge of prescribed diet and/or healthy nutrition to be achieved by 12/18/21. Nutrition/Hydration Completed Yes met Patient/caregiver will teach back high risk medication side effect and precaution education High Risk Medications Completed Yes met Manage discharge planning Description: Patient/caregiver will verbalize understanding of ongoing discharge plan provided related to disease management, arrangements for outpatient and/or community services, obtaining medications, supplies, and DME, as needed throughout certification period. Discharge Completed Yes met Improved Aerobic Capacity Description: STG: Patient will demonstrate improved aerobic capacity to meet functional goals as evidenced by Rate of Percieved Exertion (RPE) of 5-6/10 during all standing activity, to be achieved by 12/18/21. PT Impaired Aerobic Capacity Completed Yes met RPE 1/10 with todays visit Improved Muscle Performance and/or ROM Description: STG: Patient and/or caregiver will verbalize/demonstrate independence with home exercise program, to improve functional mobility, to be achieved by 12/18/21. STG: Patient will demonstrate improved right knee active-assisted range of motion to 5-95 degrees, to meet functional goals, to be achieved by 12/18/21. PT Impaired muscle performance and/or ROM Completed Yes both met. PROM 0-100 degrees R knee Improved Transfers Description: STG: Patient will demonstrate safe transfers to/from bed, chair and toilet independently, to be achieved by 12/18/21. PT Impaired mobility Completed Yes met Improved Bed Mobility Description: STG: Patient will demonstrate improved supine <> sit independently to be achieved by 12/18/21. PT Impaired mobility Completed Yes met Improved Stair Climbing Description: STG:: Patient will demonstrate improved stair negotiation as evidenced by ascend/descend 1 flt steps with railing independent, to be achieved by 12/18/21. PT Impaired gait Completed Yes met, indep today with one cane and no rail 3 steps indep today with correct sequencing Improved Gait Description: STG: Patient will demonstrate improved gait ability as evidenced by ambulation 150 feet with crutches independently with AD, in order to access all areas of house and driveway, to be achieved by 12/18/21. PT Impaired gait Completed Yes met with one cane Improved Balance Description: STG: Patient will demonstrate improved standing balance to meet functional goals as evidenced by TUG score of <20, to be achieved by 12/18/21. PT Impaired balance Completed Yes met 13 seconds Manage Orthopedic Condition Description: Improve patient and/or caregiver understanding of post surgical and/or non-surgical orthopedic intervention management as evidenced by patient and/or caregiver able to verbalize, demonstrate, and teach back instruction, to be achieved by 12/18/21. PT Orthopedic Condition Completed Yes met Demonstrate understanding of education Description: Patient and/or caregiver will understand educational instruction to be achieved by 12/18/21. PT Learning Assessment Completed Yes met Manage Secondary Cardiovascular disease Description: Improve patient and/or caregiver understanding of secondary cardiovascular disease management as evidenced by patient and/or caregiver able to verbalize, demonstrate, and teach back instruction, to be achieved by 12/18/21. PT Cardiovascular Disease Completed Yes met Interventions Intervention Associated Problem/Goal Status Variance Visit Notes Medication Education Description: Evaluate/instruct patient/caregiver on obtaining, storing, identifying and administering ordered medications as well as keeping accurate medication list in the home and adhereing to medication schedule Problem:Medication Education Goal:Patient/caregive r will demonstrate ability to obtain, store, identify and administer ordered medications, keep accurate medication list in home, and adhere to medication schedule Completed Patient instructed on adhering to medication schedule. Risk of Sepsis Description: Patient is at risk for sepsis. Monitor closely for s/s of sepsis. Problem:Sepsis Goal:Patient/caregive r will be able to identify and report symptoms of sepsis Completed SPO2 Description: Notify Dr. Bennett if pulse ox is <92% at rest. Problem:Physician Specific Parameters Goal:Patient to maintain parameters within physician-specified ranges throughout certification period Completed Instruct on individual fall risk factors and strategies to prevent falls and injuries caused by falls. Problem:Risk for Falls Goal:Manage Risk for falls Completed PT: Patient instructed on Eliminating Environmental Hazards: Wear supportive shoes or non-skid socks Instruct on pain and instruct on strategies to control pain Problem:Pain Goal:Manage Pain Completed patient instructed on techniques to control pain including Pharmacological measures and Non-Pharmacological measures; positioning/elevation, mobility/therapeutic exercise and use of thermal modalities, apply ice to affected area for the following prescribed frequency: several times a day. Define patient s appetite/hydration status and implement strategies to improve compliance with prescribed diet and/or healthy nutrition. Problem:Nutrition/Hyd ration Goal:Manage Nutrition/Hydration Completed reinforced patient on implementing strategies to comply with healthy nutrition and adequate hydration Instruct on final discharge plan and deliver discharge instructions Problem:Discharge Goal:Manage discharge planning Completed Delivered Discharge plan: Discharge plan discussed with patient for plan for transition to: outpatient therapy Physical Therapy Therapeutic Exercises Problem:PT Impaired muscle performance and/or ROM Goal:Improved Muscle Performance and/or ROM Completed patient instructed on strengthening/ ROM exercises including step stretch, controlled sitting, standing heel/toe raises, knee flexion. 10 reps all. verbal reveiw of entire HEP. Pt to continue with HEP BID. PROM 0-100 degrees R knee Physical Therapy Gait Training Problem:PT Impaired gait Goal:Improved Gait Completed Gait training and instruction to patient on safe ambulation with 1 cane for 200 feet indep, vc to increase knee flexion and able to correct. Pt with normalized pattern Instruct on management of edema Problem:PT Orthopedic Condition Goal:Manage Orthopedic Condition Completed reinforced need for patient to management of edema including elevation of R LE above the level of the heart. Instruct and educate on knowledge deficits Problem:PT Learning Assessment Goal:Demonstrate understanding of education Completed patient verbalize and/or demonstrate understanding of physical therapy education including pain management, fall prevention strategies, functional activity and home exercise program. Education methods include: verbal cues and written instructions. documented in this encounter [facility] for referral (narrative)* Diagnostic Procedure Only (Routine) - Pending Review Specialty Diagnoses / Procedures [facility]erred To Contact XR IMAGING Diagnoses Right knee pain, unspecified chronicity Procedures XR KNEE GENERAL 4V AP BOTH/PA BOTH/LAT/MERC RIGHT RADIOLOGIC EXAM KNEE COMPLETE 4/MORE VIEWS Miguel Bennett MD [address] [place] [address] Xr Imaging Referral ID Status Reason Start Date Expiration Date Visits Requested Visits Authorized [id number] Pending Review Auto-Generat ed Referral 10/27/2021 11/26/2022 1 1 [facility] for referral (narrative)* Outpatient Procedure (Routine) - Closed Specialty Diagnoses / Procedures Referred By [facility] Referred To Contact [facility] Diagnoses Pre-operative examination Procedures ECG COMPLETE ECG ROUTINE ECG W/LEAST 12 LDS W/I&R Margie Barrera APRN.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 [address] [place] [address] [facility] [address] [place] [address] Referral ID Status Reason Start Date Expiration Date V isits Requested Visits Authorized [id number] Closed Auto-Generate d Referral 11/15/2021 11/15/2022 1 1 [facility] for referral (narrative)* Diagnostic Procedure Only (Routine) - Pending Review Specialty Diagnoses / Procedures [facility] Referred To Contact XR IMAGING Diagnoses Post-traumatic osteoarthritis of right knee Status post total right knee replacement Procedures XR KNEE GENERAL 4V AP BOTH/PA BOTH/LAT/MERC RIGHT RADIOLOGIC EXAM KNEE COMPLETE 4/MORE VIEWS Miguel Bennett MD [address] [place] [address] Xr Imaging Referral ID Status Reason Start Date Expiration Date Visits Requested Visits Authorized [id number] Pending Review Auto-Generat ed Referral 12/09/2021 01/08/2023 1 1 [facility] for referral (narrative)* Diagnostic Procedure Only (Routine) - Pending Review Specialty Diagnoses / Procedures Referred By Contac t Referred To Contact XR IMAGING Diagnoses Pain of right hip Procedures XR HIP GENERAL 3V PELV/AP/LAT RIGHT RADEX HIP UNILATERAL WITH PELVIS 2-3 VIEWS Monica Venegas PA-C [address] [place] [address] Xr Imaging Referral ID Status Reason Start Date Expiration Date Visits Requested Visits Authorized [id number] Pending Review Auto-Generat ed Referral 07/22/2022 08/21/2023 1 1 [facility] for referral (narrative)* Diagnostic Procedure Only (Routine) - Authorized Specialty Diagnoses / Procedures Referred By Contac t Referred To Contact US IMAGING Diagnoses Left flank pain Bilateral renal stones Procedures US KIDNEY/BLADDER US RETROPERITONEAL REAL TIME W/IMAGE COMPLETE Cinthia Avilez PA-C [address] [id number] Us Imaging [facility] Referral ID Status Reason Start Date Expiration Date Visits Requested Visits Authorized [id number] Authorized Auto-Generat ed Referral 11/04/2022 12/04/2023 1 1 [facility] for referral (narrative)* Outpatient Procedure (Routine) - Pending Review Specialty Diagnoses / Procedures Referred By Contac t Referred To Contact [facility] Diagnoses Essential hypertension Renal artery stenosis (HCC) Procedures US RENAL ARTERY [facility] DUP-SCAN ARTL ABDIEL ABDL/PEL/SCROT&/RPR ORGN COM Kt Mortensen MD [address] [address] [facility] [address] [place] [address] Referral ID Status Reason Start Date Expiration Date Visits Requested Visits Authorized [id number] Pending Review Auto-Generat ed Referral 11/10/2022 11/10/2023 1 1 [facility] for referral (narrative)* Diagnostic Procedure Only (Routine) - Authorized Specialty Diagnoses / Procedures Referred By [facility] Referred To Contact US IMAGING Diagnoses Renal cyst Procedures US KIDNEY/BLADDER US RETROPERITONEAL REAL TIME W/IMAGE COMPLETE Kt Mortensen MD [address] [address] Us Imaging [facility] Referral ID Status Reason Start Date Expiration Date Visits Requested Visits Authorized [id number] Authorized Auto-Generat ed Referral 12/26/2022 03/19/2023 1 1 T [facility] for referral (narrative)* Diagnostic Procedure Only (Routine) - Pending Review Specialty Diagnoses / Procedures Referred By Contac t Referred To Contact XR IMAGING Diagnoses Pain of right hip Procedures XR HIP GENERAL 3V PELV/AP/LAT RIGHT RADEX HIP UNILATERAL WITH PELVIS 2-3 VIEWS Monica Venegas PA-C [address] [place] [address] Xr Imaging [facility] Referral ID Status Reason Start Date Expiration Date Visits Requested Visits Authorized [id number] Pending Review Auto-Generat ed Referral 07/22/2022 08/21/2023 1 1 [facility] for referral (narrative)* Diagnostic Procedure Only (Routine) - Closed Specialty Diagnoses / Procedures Referred By Contac t Referred To Contact XR IMAGING Diagnoses Left flank pain Procedures XR THORACIC GENERAL 3V AP/LAT/SWIMMERS RADEX SPINE THORACIC 3 VIEWS Jossy Natarajan APRN.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 [address] [place] [address] [place] [address] Referral ID Status Reason Start Date Expiration Date V isits Requested Visits Authorized [id number] Closed Auto-Generate d Referral 12/20/2022 01/19/2024 1 1 * Diagnostic Procedure Only (Routine) - Closed Specialty Diagnoses / Procedures Referred By Contac t Referred To Contact XR IMAGING Diagnoses Left flank pain Procedures XR LUMBAR GENERAL 3V AP/LAT/L5-S1 RADEX SPINE LUMBOSACRAL 2/3 VIEWS Jossy Natarajan APRN.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 [address] [place] [address] [place] [address] Referral ID Status Reason Start Date Expiration Date V isits Requested Visits Authorized [id number] Closed Auto-Generate d Referral 12/20/2022 01/19/2024 1 1 [facility] for referral (narrative)* Diagnostic Procedure Only (Routine) - Closed Specialty Diagnoses / Procedures Referred By Contac t Referred To Contact US IMAGING Diagnoses Renal cyst Procedures US KIDNEY/BLADDER US RETROPERITONEAL REAL TIME W/IMAGE COMPLETE Kt Mortensen MD [address] [address] [place] [address] Referral ID Status Reason Start Date Expiration Date V isits Requested Visits Authorized [id number] Closed Auto-Generate d Referral 12/26/2022 03/19/2023 1 1 [facility] for referral (narrative)* Diagnostic Procedure Only (Routine) - Pending Review Specialty Diagnoses / Procedures Referred By Contac t Referred To Contact MOLECULAR & FUNCTIONAL IMAGING Diagnoses GRANADO (dyspnea on exertion) Procedures NM CARDIAC PERF STRESS/PHARM MYOCARDIAL SPECT MULTIPLE STUDIES Jeffrey Munguia MD [address] [address] [facility] [address] [id number] Referral ID Status Reason Start Date Expiration Date Visits Requested Visits Authorized [id number] Pending Review Auto-Generat ed Referral 03/04/2024 1 1 [facility] for visit Narrative* Diagnostic Procedure Only (Routine) - Pending Review Specialty Diagnoses / Procedures Referred By Contac t Referred To Contact XR IMAGING Diagnoses Pain of right hip Procedures XR HIP GENERAL 3V PELV/AP/LAT RIGHT RADEX HIP UNILATERAL WITH PELVIS 2-3 VIEWS Monica Venegas PA-C [address] [place] [address] [place] [address] Referral ID Status Reason Start Date Expiration Date Visits Requested Visits Authorized [id number] Pending Review Auto-Generat ed Referral 07/22/2022 08/21/2023 1 1 [facility] for visit Narrative* Diagnostic Procedure Only (Routine) - Closed Specialty Diagnoses / Procedures Referred By Contac t Referred To Contact XR IMAGING Diagnoses Left flank pain Procedures XR THORACIC GENERAL 3V AP/LAT/SWIMMERS RADEX SPINE THORACIC 3 VIEWS Jossy Natarajan, 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 [address] [place] [address] [place] [address] Referral ID Status Reason Start Date Expiration Date V isits Requested Visits Authorized [id number] Closed Auto-Generate d Referral 12/20/2022 01/19/2024 1 1 [facility] Summary Purpose Family History No Family History Records FoundNo Family History Records FoundNo Family History Records FoundNo Family History Records FoundNo Family History Records Found Advance Directives No Advanced Directives Records FoundDocuments on File Type Date 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 Advance Directive(s) 11/14/2018 8:14 AM Advance Directive(s) 11/08/2018 12:59 PM Advance Directive(s) 10/26/2016 12:05 PM Advance Directive(s) 10/09/2015 6:15 AM Latest Code Status on File Code Status Date Activated Date Inactivated Comments Full Code 12/04/2021 4:22 PM Latest Code Status on File Code Status Date Activated Date Inactivated Comments Full Code 12/04/2021 4:22 PM Latest Code Status on File Code Status Date Activated Date Inactivated Comments Full Code 08/31/2022 10:02 PM 09/02/2022 1:41 AM Full Code Order Discussed With: Patient Full Code 12/04/2021 4:22 PM 08/31/2022 2:19 PM Latest Code Status on File Code Status Date Activated Date Inactivated Comments Full Code 08/31/2022 10:02 PM 09/02/2022 1:41 AM Question Answer Comments Full Code Order Discussed With: Patient Code Status History Code Status Date Activated Date Inactivated Comments Full Code 12/04/2021 4:22 PM 08/31/2022 2:19 PM Latest Code Status on File Code Status Date Activated Date Inactivated Comments Full Code 08/31/2022 10:02 PM 09/02/2022 1:41 AM Question Answer Comments Full Code Order Discussed With: Patient Code Status History Code Status Date Activated Date Inactivated Comments Full Code 12/04/2021 4:22 PM 08/31/2022 2:19 PM Latest Code Status on File Code Status Date Activated Date Inactivated Comments Full Code 08/31/2022 10:02 PM 09/02/2022 1:41 AM Question Answer Comments Full Code Order Discussed With: Patient Latest Code Status on File Code Status Date Activated Date Inactivated Comments Full Code 08/31/2022 10:02 PM 09/02/2022 1:41 AM Question Answer Comments Full Code Order Discussed With: Patient Reason for Referral Specialty Diagnoses / Procedures Referred By Sandy t Referred To Contact CT IMAGING Diagnoses Post-traumatic osteoarthritis of right knee Procedures CT KNEE WO IVCON RT CT LOWER EXTREMITY W/O CONTRAST MATERIAL Miguel Bennett MD [address] [place] [address] Ct Imaging Referral ID Status Reason Start Date Expiration Date Visits Requested Visits Authorized [id number] Authorized Auto-Generat ed Referral 11/01/2021 12/01/2022 1 1 Specialty Diagnoses / Procedures Referred By Contac t Referred To Contact Diagnoses Post-traumatic osteoarthritis of right knee Procedures CONSULT TO [facility] Nilay Francois PA-C [address] [place] [address] [address] [place] [address] Referral ID Status Reason Start Date Expiration Date Visits Requested Visits Authorized [id number] Authorized PCP Requested Referral 11/11/2021 02/09/2022 1 1 Specialty Diagnoses / Procedures Referred By Contac t Referred To Contact [facility] Diagnoses Post-traumatic osteoarthritis of right knee Preop examination Procedures CONSULT TO PHYSICAL THERAPY PHYSICAL THERAPY EVALUATION HIGH COMPLEX 45 MINS Nilay Francois PA-C [address] [place] [address] [facility] [place] [address] [place] [address] Referral ID Status Reason Start Date Expiration Date Visits Requested Visits Authorized [id number] Pending Review Auto-Generat ed Referral 11/11/2021 11/11/2022 1 1 Specialty Diagnoses / Procedures Referred By Sandy t Referred To Contact Physical Therapy / PHYSICAL THERAPY Diagnoses Status post total knee replacement, unspecified laterality Procedures CONSULT TO PHYSICAL THERAPY Monica Venegas PA-C [address] [place] [address] [employer] [facility] [address] [place] [address] Referral ID Status Reason Start Date Expiration Date Visits Requested Visits Authorized [id number] Authorized Financial Clearance Required - Self Pay Patient Cleared - Qualified 100% FAS 12/08/2021 03/08/2022 99 99 Specialty Diagnoses / Procedures Referred By Sandy t Referred To Contact Cardiology Diagnoses Uncontrolled hypertension Procedures CONSULT TO CARDIOLOGY OFFICE/OUTPATIENT [facility] MDM 60-74 MINUTES Jossy Natarajan, 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 [address] [place] [address] Jeffrey Munguia MD [address] [place] [address] Referral ID Status Reason Start Date Expiration Date Visits Requested Visits Authorized [id number] Pending Review PCP Requested Referral 08/23/2022 08/23/2023 1 1 Specialty Diagnoses / Procedures Referred By Contac t Referred To Contact [facility] Diagnoses Uncontrolled hypertension Procedures ECHO ECHO TTHRC R-T 2D W/WOM-MODE COMPL SPEC&COLR D Jossy Natarajan, 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 [address] [place] [address] [facility] [place] [address] [place] [address] Referral ID Status Reason Start Date Expiration Date Visits Requested Visits Authorized [id number] Pending Review Auto-Generat ed Referral 08/23/2022 08/23/2023 1 1 Specialty Diagnoses / Procedures Referred By Contac t Referred To Contact Urology / [facility] Department Diagnoses Left flank pain Bilateral renal stones Procedures CONSULT TO UROLOGY OFFICE/OUTPATIENT [facility] [place] 60-74 MINUTES Jossy Natarajan 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 [address] [place] [address] Cinthia Avilez PA-C [address] [place] [address] Referral ID Status Reason Start Date Expiration Date Visits Requested Visits Authorized [id number] Authorized PCP Requested Referral 10/24/2022 10/24/2023 1 1 Specialty Diagnoses / Procedures Referred By Contac t Referred To Contact Nephrology / [facility] Department Diagnoses Uncontrolled hypertension Procedures CONSULT TO NEPHROLOGY OFFICE/OUTPATIENT [facility] [place] 60-74 MINUTES Jossy Natarajan 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 [address] [place] [address] Kt Mortensen MD [address] [facility] [address] [place] [address] Referral ID Status Reason Start Date Expiration Date Visits Requested Visits Authorized [id number] Authorized PCP Requested Referral 10/24/2022 10/24/2023 1 1 Specialty Diagnoses / Procedures Referred By Contac t Referred To Contact Diagnoses Chronic left flank pain DDD (degenerative disc disease), lumbar DDD (degenerative disc disease), thoracic Procedures CONSULT TO PAIN MGT Jossy Natarajan APRN.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 [address] [place] [address] [facility] Referral ID Status Reason Start Date Expiration Date Visits Requested Visits Authorized [id number] Ref Not Required PCP Requested Referral 3 12/29/2023 1 1 Medications Administered Section Inactive Administered Medications - up to 3 most recent administrations Medication Order MAR Action Action Date Dose Rate Site cloNIDine HCl 0.1 mg tab(s) (CATAPRES) 0.1 mg, ORAL, ONCE, 1 dose, On Mon08/23/22 at 1030 Given 08/23/2022 7:55 PM EDT 0.1 mg cloNIDine HCl 0.1 mg tab(s) (CATAPRES) 0.1 mg, ORAL, ONCE, 1 dose, On Mon08/23/22 at 1030 Given 08/23/2022 10:30 AM EDT 0.1 mg Additional Source Comments (unrecognized sect ion and content) No Status Records FoundNo Status Records FoundNo Status Records FoundNo Status Records FoundNo Status Records Found INFORMATION SOURCE (unrecogn ized section and content) DATE CREATED AUTHOR AUTHOR'S ORGANIZ ATION 09/03/2022 [facility] DATE CREATED AUTHOR AUTHOR'S ORGANIZ ATION 12/25/2022 [facility] DATE CREATED AUTHOR AUTHOR'S ORGANIZ ATION 12/30/[address] [facility] DATE CREATED AUTHOR AUTHOR'S ORGANIZ ATION 03/10/2023 [facility] Source Comments (unrecognize d section and content) In the event this informatio n is protected by the Federal Confidentiality of Alcohol and Drug Abuse Patient Records regulations: The Federal rules restrict any use of the information to criminally investigate or prosecute any alcohol or drug abuse patient.[facility] the event this information is protected by the Federal Confidentiality of Alcohol and Drug Abuse Patient Records regulations: The Federal rules restrict any use of the information to criminally investigate or prosecute any alcohol or drug abuse patient.[facility] the event this information is protected by the Federal Confidentiality of Alcohol and Drug Abuse Patient Records regulations: The Federal rules restrict any use of the information to criminally investigate or prosecute any alcohol or drug abuse patient.[facility] the event this information is protected by the Federal Confidentiality of Alcohol and Drug Abuse Patient Records regulations: The Federal rules restrict any use of the information to criminally investigate or prosecute any alcohol or drug abuse patient.[facility] the event this information is protected by the Federal Confidentiality of Alcohol and Drug Abuse Patient Records regulations: The Federal rules restrict any use of the information to criminally investigate or prosecute any alcohol or drug abuse patient.[facility] the event this information is protected by the Federal Confidentiality of Alcohol and Drug Abuse Patient Records regulations: The Federal rules restrict any use of the information to criminally investigate or prosecute any alcohol or drug abuse patient.[facility] the event this information is protected by the Federal Confidentiality of Alcohol and Drug Abuse Patient Records regulations: The Federal rules restrict any use of the information to criminally investigate or prosecute any alcohol or drug abuse patient.[facility] the event this information is protected by the Federal Confidentiality of Alcohol and Drug Abuse Patient Records regulations: The Federal rules restrict any use of the information to criminally investigate or prosecute any alcohol or drug abuse patient.[facility] the event this information is protected by the Federal Confidentiality of Alcohol and Drug Abuse Patient Records regulations: The Federal rules restrict any use of the information to criminally investigate or prosecute any alcohol or drug abuse patient.[facility] the event this information is protected by the Federal Confidentiality of Alcohol and Drug Abuse Patient Records regulations: The Federal rules restrict any use of the information to criminally investigate or prosecute any alcohol or drug abuse patient.[facility] the event this information is protected by the Federal Confidentiality of Alcohol and Drug Abuse Patient Records regulations: The Federal rules restrict any use of the information to criminally investigate or prosecute any alcohol or drug abuse patient.[facility] the event this information is protected by the Federal Confidentiality of Alcohol and Drug Abuse Patient Records regulations: The Federal rules restrict any use of the information to criminally investigate or prosecute any alcohol or drug abuse patient.[facility] the event this information is protected by the Federal Confidentiality of Alcohol and Drug Abuse Patient Records regulations: The Federal rules restrict any use of the information to criminally investigate or prosecute any alcohol or drug abuse patient.[facility] the event this information is protected by the Federal Confidentiality of Alcohol and Drug Abuse Patient Records regulations: The Federal rules restrict any use of the information to criminally investigate or prosecute any alcohol or drug abuse patient.[facility] the event this information is protected by the Federal Confidentiality of Alcohol and Drug Abuse Patient Records regulations: The Federal rules restrict any use of the information to criminally investigate or prosecute any alcohol or drug abuse patient.[facility] the event this information is protected by the Federal Confidentiality of Alcohol and Drug Abuse Patient Records regulations: The Federal rules restrict any use of the information to criminally investigate or prosecute any alcohol or drug abuse patient.[facility] the event this information is protected by the Federal Confidentiality of Alcohol and Drug Abuse Patient Records regulations: The Federal rules restrict any use of the information to criminally investigate or prosecute any alcohol or drug abuse patient.[facility] the event this information is protected by the Federal Confidentiality of Alcohol and Drug Abuse Patient Records regulations: The Federal rules restrict any use of the information to criminally investigate or prosecute any alcohol or drug abuse patient.[facility] Hospital[facility] the event this information is protected by the Federal Confidentiality of Alcohol and Drug Abuse Patient Records regulations: The Federal rules restrict any use of the information to criminally investigate or prosecute any alcohol or drug abuse patient.[facility] HospitalIn the event this information is protected by the Federal Confidentiality of Alcohol and Drug Abuse Patient Records regulations: The Federal rules restrict any use of the information to criminally investigate or prosecute any alcohol or drug abuse patient.[facility] HospitalIn the event this information is protected by the Federal Confidentiality of Alcohol and Drug Abuse Patient Records regulations: The Federal rules restrict any use of the information to criminally investigate or prosecute any alcohol or drug abuse patient.[facility] HospitalIn the event this information is protected by the Federal Confidentiality of Alcohol and Drug Abuse Patient Records regulations: The Federal rules restrict any use of the information to criminally investigate or prosecute any alcohol or drug abuse patient.[facility] HospitalIn the event this information is protected by the Federal Confidentiality of Alcohol and Drug Abuse Patient Records regulations: The Federal rules restrict any use of the information to criminally investigate or prosecute any alcohol or drug abuse patient.[facility] HospitalIn the event this information is protected by the Federal Confidentiality of Alcohol and Drug Abuse Patient Records regulations: The Federal rules restrict any use of the information to criminally investigate or prosecute any alcohol or drug abuse patient.[facility] HospitalIn the event this information is protected by the Federal Confidentiality of Alcohol and Drug Abuse Patient Records regulations: The Federal rules restrict any use of the information to criminally investigate or prosecute any alcohol or drug abuse patient.[facility] HospitalIn the event this information is protected by the Federal Confidentiality of Alcohol and Drug Abuse Patient Records regulations: The Federal rules restrict any use of the information to criminally investigate or prosecute any alcohol or drug abuse patient.[facility] HospitalIn the event this information is protected by the Federal Confidentiality of Alcohol and Drug Abuse Patient Records regulations: The Federal rules restrict any use of the information to criminally investigate or prosecute any alcohol or drug abuse patient.[facility] HospitalIn the event this information is protected by the Federal Confidentiality of Alcohol and Drug Abuse Patient Records regulations: The Federal rules restrict any use of the information to criminally investigate or prosecute any alcohol or drug abuse patient.[facility] HospitalIn the event this information is protected by the Federal Confidentiality of Alcohol and Drug Abuse Patient Records regulations: The Federal rules restrict any use of the information to criminally investigate or prosecute any alcohol or drug abuse patient.[facility] HospitalIn the event this information is protected by the Federal Confidentiality of Alcohol and Drug Abuse Patient Records regulations: The Federal rules restrict any use of the information to criminally investigate or prosecute any alcohol or drug abuse patient.[facility] HospitalIn the event this information is protected by the Federal Confidentiality of Alcohol and Drug Abuse Patient Records regulations: The Federal rules restrict any use of the information to criminally investigate or prosecute any alcohol or drug abuse patient.[facility] HospitalIn the event this information is protected by the Federal Confidentiality of Alcohol and Drug Abuse Patient Records regulations: The Federal rules restrict any use of the information to criminally investigate or prosecute any alcohol or drug abuse patient.[facility] HospitalIn the event this information is protected by the Federal Confidentiality of Alcohol and Drug Abuse Patient Records regulations: The Federal rules restrict any use of the information to criminally investigate or prosecute any alcohol or drug abuse patient.[facility] HospitalIn the event this information is protected by the Federal Confidentiality of Alcohol and Drug Abuse Patient Records regulations: The Federal rules restrict any use of the information to criminally investigate or prosecute any alcohol or drug abuse patient.[facility] HospitalIn the event this information is protected by the Federal Confidentiality of Alcohol and Drug Abuse Patient Records regulations: The Federal rules restrict any use of the information to criminally investigate or prosecute any alcohol or drug abuse patient.[facility] HospitalIn the event this information is protected by the Federal Confidentiality of Alcohol and Drug Abuse Patient Records regulations: The Federal rules restrict any use of the information to criminally investigate or prosecute any alcohol or drug abuse patient.[facility] HospitalIn the event this information is protected by the Federal Confidentiality of Alcohol and Drug Abuse Patient Records regulations: The Federal rules restrict any use of the information to criminally investigate or prosecute any alcohol or drug abuse patient.[facility] HospitalIn the event this information is protected by the Federal Confidentiality of Alcohol and Drug Abuse Patient Records regulations: The Federal rules restrict any use of the information to criminally investigate or prosecute any alcohol or drug abuse patient.[facility] HospitalIn the event this information is protected by the Federal Confidentiality of Alcohol and Drug Abuse Patient Records regulations: The Federal rules restrict any use of the information to criminally investigate or prosecute any alcohol or drug abuse patient.[facility] HospitalIn the event this information is protected by the Federal Confidentiality of Alcohol and Drug Abuse Patient Records regulations: The Federal rules restrict any use of the information to criminally investigate or prosecute any alcohol or drug abuse patient.[facility] HospitalIn the event this information is protected by the Federal Confidentiality of Alcohol and Drug Abuse Patient Records regulations: The Federal rules restrict any use of the information to criminally investigate or prosecute any alcohol or drug abuse patient.[facility] HospitalIn the event this information is protected by the Federal Confidentiality of Alcohol and Drug Abuse Patient Records regulations: The Federal rules restrict any use of the information to criminally investigate or prosecute any alcohol or drug abuse patient.[facility] HospitalIn the event this information is protected by the Federal Confidentiality of Alcohol and Drug Abuse Patient Records regulations: The Federal rules restrict any use of the information to criminally investigate or prosecute any alcohol or drug abuse patient.[facility] HospitalIn the event this information is protected by the Federal Confidentiality of Alcohol and Drug Abuse Patient Records regulations: The Federal rules restrict any use of the information to criminally investigate or prosecute any alcohol or drug abuse patient.[facility] HospitalIn the event this information is protected by the Federal Confidentiality of Alcohol and Drug Abuse Patient Records regulations: The Federal rules restrict any use of the information to criminally investigate or prosecute any alcohol or drug abuse patient.[facility] HospitalIn the event this information is protected by the Federal Confidentiality of Alcohol and Drug Abuse Patient Records regulations: The Federal rules restrict any use of the information to criminally investigate or prosecute any alcohol or drug abuse patient.[facility] HospitalIn the event this information is protected by the Federal Confidentiality of Alcohol and Drug Abuse Patient Records regulations: The Federal rules restrict any use of the information to criminally investigate or prosecute any alcohol or drug abuse patient.[facility] HospitalIn the event this information is protected by the Federal Confidentiality of Alcohol and Drug Abuse Patient Records regulations: The Federal rules restrict any use of the information to criminally investigate or prosecute any alcohol or drug abuse patient.[facility] HospitalIn the event this information is protected by the Federal Confidentiality of Alcohol and Drug Abuse Patient Records regulations: The Federal rules restrict any use of the information to criminally investigate or prosecute any alcohol or drug abuse patient.[facility] HospitalIn the event this information is protected by the Federal Confidentiality of Alcohol and Drug Abuse Patient Records regulations: The Federal rules restrict any use of the information to criminally investigate or prosecute any alcohol or drug abuse patient.[facility] HospitalIn the event this information is protected by the Federal Confidentiality of Alcohol and Drug Abuse Patient Records regulations: The Federal rules restrict any use of the information to criminally investigate or prosecute any alcohol or drug abuse patient.[facility] HospitalIn the event this information is protected by the Federal Confidentiality of Alcohol and Drug Abuse Patient Records regulations: The Federal rules restrict any use of the information to criminally investigate or prosecute any alcohol or drug abuse patient.[facility] HospitalIn the event this information is protected by the Federal Confidentiality of Alcohol and Drug Abuse Patient Records regulations: The Federal rules restrict any use of the information to criminally investigate or prosecute any alcohol or drug abuse patient.[facility] HospitalIn the event this information is protected by the Federal Confidentiality of Alcohol and Drug Abuse Patient Records regulations: The Federal rules restrict any use of the information to criminally investigate or prosecute any alcohol or drug abuse patient.[facility] HospitalIn the event this information is protected by the Federal Confidentiality of Alcohol and Drug Abuse Patient Records regulations: The Federal rules restrict any use of the information to criminally investigate or prosecute any alcohol or drug abuse patient.[facility] HospitalIn the event this information is protected by the Federal Confidentiality of Alcohol and Drug Abuse Patient Records regulations: The Federal rules restrict any use of the information to criminally investigate or prosecute any alcohol or drug abuse patient.[facility] HospitalIn the event this information is protected by the Federal Confidentiality of Alcohol and Drug Abuse Patient Records regulations: The Federal rules restrict any use of the information to criminally investigate or prosecute any alcohol or drug abuse patient.[facility] HospitalIn the event this information is protected by the Federal Confidentiality of Alcohol and Drug Abuse Patient Records regulations: The Federal rules restrict any use of the information to criminally investigate or prosecute any alcohol or drug abuse patient.[facility] HospitalIn the event this information is protected by the Federal Confidentiality of Alcohol and Drug Abuse Patient Records regulations: The Federal rules restrict any use of the information to criminally investigate or prosecute any alcohol or drug abuse patient.[facility] HospitalIn the event this information is protected by the Federal Confidentiality of Alcohol and Drug Abuse Patient Records regulations: The Federal rules restrict any use of the information to criminally investigate or prosecute any alcohol or drug abuse patient.[facility] HospitalIn the event this information is protected by the Federal Confidentiality of Alcohol and Drug Abuse Patient Records regulations: The Federal rules restrict any use of the information to criminally investigate or prosecute any alcohol or drug abuse patient.[facility] HospitalIn the event this information is protected by the Federal Confidentiality of Alcohol and Drug Abuse Patient Records regulations: The Federal rules restrict any use of the information to criminally investigate or prosecute any alcohol or drug abuse patient.[facility] HospitalIn the event this information is protected by the Federal Confidentiality of Alcohol and Drug Abuse Patient Records regulations: The Federal rules restrict any use of the information to criminally investigate or prosecute any alcohol or drug abuse patient.[facility] HospitalIn the event this information is protected by the Federal Confidentiality of Alcohol and Drug Abuse Patient Records regulations: The Federal rules restrict any use of the information to criminally investigate or prosecute any alcohol or drug abuse patient.[facility] HospitalIn the event this information is protected by the Federal Confidentiality of Alcohol and Drug Abuse Patient Records regulations: The Federal rules restrict any use of the information to criminally investigate or prosecute any alcohol or drug abuse patient.[facility] HospitalIn the event this information is protected by the Federal Confidentiality of Alcohol and Drug Abuse Patient Records regulations: The Federal rules restrict any use of the information to criminally investigate or prosecute any alcohol or drug abuse patient.[facility] HospitalIn the event this information is protected by the Federal Confidentiality of Alcohol and Drug Abuse Patient Records regulations: The Federal rules restrict any use of the information to criminally investigate or prosecute any alcohol or drug abuse patient.[facility] HospitalIn the event this information is protected by the Federal Confidentiality of Alcohol and Drug Abuse Patient Records regulations: The Federal rules restrict any use of the information to criminally investigate or prosecute any alcohol or drug abuse patient.[facility] HospitalIn the event this information is protected by the Federal Confidentiality of Alcohol and Drug Abuse Patient Records regulations: The Federal rules restrict any use of the information to criminally investigate or prosecute any alcohol or drug abuse patient.[facility] HospitalIn the event this information is protected by the Federal Confidentiality of Alcohol and Drug Abuse Patient Records regulations: The Federal rules restrict any use of the information to criminally investigate or prosecute any alcohol or drug abuse patient.[facility] HospitalIn the event this information is protected by the Federal Confidentiality of Alcohol and Drug Abuse Patient Records regulations: The Federal rules restrict any use of the information to criminally investigate or prosecute any alcohol or drug abuse patient.[facility] HospitalIn the event this information is protected by the Federal Confidentiality of Alcohol and Drug Abuse Patient Records regulations: The Federal rules restrict any use of the information to criminally investigate or prosecute any alcohol or drug abuse patient.[facility] HospitalIn the event this information is protected by the Federal Confidentiality of Alcohol and Drug Abuse Patient Records regulations: The Federal rules restrict any use of the information to criminally investigate or prosecute any alcohol or drug abuse patient.[facility] HospitalIn the event this information is protected by the Federal Confidentiality of Alcohol and Drug Abuse Patient Records regulations: The Federal rules restrict any use of the information to criminally investigate or prosecute any alcohol or drug abuse patient.[facility] HospitalIn the event this information is protected by the Federal Confidentiality of Alcohol and Drug Abuse Patient Records regulations: The Federal rules restrict any use of the information to criminally investigate or prosecute any alcohol or drug abuse patient.[facility] HospitalIn the event this information is protected by the Federal Confidentiality of Alcohol and Drug Abuse Patient Records regulations: The Federal rules restrict any use of the information to criminally investigate or prosecute any alcohol or drug abuse patient.[facility] HospitalIn the event this information is protected by the Federal Confidentiality of Alcohol and Drug Abuse Patient Records regulations: The Federal rules restrict any use of the information to criminally investigate or prosecute any alcohol or drug abuse patient.[facility] HospitalIn the event this information is protected by the Federal Confidentiality of Alcohol and Drug Abuse Patient Records regulations: The Federal rules restrict any use of the information to criminally investigate or prosecute any alcohol or drug abuse patient.[facility] HospitalIn the event this information is protected by the Federal Confidentiality of Alcohol and Drug Abuse Patient Records regulations: The Federal rules restrict any use of the information to criminally investigate or prosecute any alcohol or drug abuse patient.[facility] HospitalIn the event this information is protected by the Federal Confidentiality of Alcohol and Drug Abuse Patient Records regulations: The Federal rules restrict any use of the information to criminally investigate or prosecute any alcohol or drug abuse patient.[facility] HospitalIn the event this information is protected by the Federal Confidentiality of Alcohol and Drug Abuse Patient Records regulations: The Federal rules restrict any use of the information to criminally investigate or prosecute any alcohol or drug abuse patient.[facility] HospitalIn the event this information is protected by the Federal Confidentiality of Alcohol and Drug Abuse Patient Records regulations: The Federal rules restrict any use of the information to criminally investigate or prosecute any alcohol or drug abuse patient.[facility] HospitalIn the event this information is protected by the Federal Confidentiality of Alcohol and Drug Abuse Patient Records regulations: The Federal rules restrict any use of the information to criminally investigate or prosecute any alcohol or drug abuse patient.[facility] HospitalIn the event this information is protected by the Federal Confidentiality of Alcohol and Drug Abuse Patient Records regulations: The Federal rules restrict any use of the information to criminally investigate or prosecute any alcohol or drug abuse patient.[facility] HospitalIn the event this information is protected by the Federal Confidentiality of Alcohol and Drug Abuse Patient Records regulations: The Federal rules restrict any use of the information to criminally investigate or prosecute any alcohol or drug abuse patient.[facility] HospitalIn the event this information is protected by the Federal Confidentiality of Alcohol and Drug Abuse Patient Records regulations: The Federal rules restrict any use of the information to criminally investigate or prosecute any alcohol or drug abuse patient.[facility] HospitalIn the event this information is protected by the Federal Confidentiality of Alcohol and Drug Abuse Patient Records regulations: The Federal rules restrict any use of the information to criminally investigate or prosecute any alcohol or drug abuse patient.[facility] HospitalIn the event this information is protected by the Federal Confidentiality of Alcohol and Drug Abuse Patient Records regulations: The Federal rules restrict any use of the information to criminally investigate or prosecute any alcohol or drug abuse patient.[facility] HospitalIn the event this information is protected by the Federal Confidentiality of Alcohol and Drug Abuse Patient Records regulations: The Federal rules restrict any use of the information to criminally investigate or prosecute any alcohol or drug abuse patient.[facility] HospitalIn the event this information is protected by the Federal Confidentiality of Alcohol and Drug Abuse Patient Records regulations: The Federal rules restrict any use of the information to criminally investigate or prosecute any alcohol or drug abuse patient.[facility] HospitalIn the event this information is protected by the Federal Confidentiality of Alcohol and Drug Abuse Patient Records regulations: The Federal rules restrict any use of the information to criminally investigate or prosecute any alcohol or drug abuse patient.[facility] HospitalIn the event this information is protected by the Federal Confidentiality of Alcohol and Drug Abuse Patient Records regulations: The Federal rules restrict any use of the information to criminally investigate or prosecute any alcohol or drug abuse patient.[facility] HospitalIn the event this information is protected by the Federal Confidentiality of Alcohol and Drug Abuse Patient Records regulations: The Federal rules restrict any use of the information to criminally investigate or prosecute any alcohol or drug abuse patient.[facility] HospitalIn the event this information is protected by the Federal Confidentiality of Alcohol and Drug Abuse Patient Records regulations: The Federal rules restrict any use of the information to criminally investigate or prosecute any alcohol or drug abuse patient.[facility] HospitalIn the event this information is protected by the Federal Confidentiality of Alcohol and Drug Abuse Patient Records regulations: The Federal rules restrict any use of the information to criminally investigate or prosecute any alcohol or drug abuse patient.[facility] HospitalIn the event this information is protected by the Federal Confidentiality of Alcohol and Drug Abuse Patient Records regulations: The Federal rules restrict any use of the information to criminally investigate or prosecute any alcohol or drug abuse patient.[facility] HospitalIn the event this information is protected by the Federal Confidentiality of Alcohol and Drug Abuse Patient Records regulations: The Federal rules restrict any use of the information to criminally investigate or prosecute any alcohol or drug abuse patient.[facility] HospitalIn the event this information is protected by the Federal Confidentiality of Alcohol and Drug Abuse Patient Records regulations: The Federal rules restrict any use of the information to criminally investigate or prosecute any alcohol or drug abuse patient.[facility] HospitalIn the event this information is protected by the Federal Confidentiality of Alcohol and Drug Abuse Patient Records regulations: The Federal rules restrict any use of the information to criminally investigate or prosecute any alcohol or drug abuse patient.[facility] HospitalIn the event this information is protected by the Federal Confidentiality of Alcohol and Drug Abuse Patient Records regulations: The Federal rules restrict any use of the information to criminally investigate or prosecute any alcohol or drug abuse patient.[facility] HospitalIn the event this information is protected by the Federal Confidentiality of Alcohol and Drug Abuse Patient Records regulations: The Federal rules restrict any use of the information to criminally investigate or prosecute any alcohol or drug abuse patient.[facility] HospitalIn the event this information is protected by the Federal Confidentiality of Alcohol and Drug Abuse Patient Records regulations: The Federal rules restrict any use of the information to criminally investigate or prosecute any alcohol or drug abuse patient.[facility] HospitalIn the event this information is protected by the Federal Confidentiality of Alcohol and Drug Abuse Patient Records regulations: The Federal rules restrict any use of the information to criminally investigate or prosecute any alcohol or drug abuse patient.[facility] HospitalIn the event this information is protected by the Federal Confidentiality of Alcohol and Drug Abuse Patient Records regulations: The Federal rules restrict any use of the information to criminally investigate or prosecute any alcohol or drug abuse patient.[facility] HospitalIn the event this information is protected by the Federal Confidentiality of Alcohol and Drug Abuse Patient Records regulations: The Federal rules restrict any use of the information to criminally investigate or prosecute any alcohol or drug abuse patient.[facility] HospitalIn the event this information is protected by the Federal Confidentiality of Alcohol and Drug Abuse Patient Records regulations: The Federal rules restrict any use of the information to criminally investigate or prosecute any alcohol or drug abuse patient.[facility] HospitalIn the event this information is protected by the Federal Confidentiality of Alcohol and Drug Abuse Patient Records regulations: The Federal rules restrict any use of the information to criminally investigate or prosecute any alcohol or drug abuse patient.[facility] HospitalIn the event this information is protected by the Federal Confidentiality of Alcohol and Drug Abuse Patient Records regulations: The Federal rules restrict any use of the information to criminally investigate or prosecute any alcohol or drug abuse patient.[facility] HospitalIn the event this information is protected by the Federal Confidentiality of Alcohol and Drug Abuse Patient Records regulations: The Federal rules restrict any use of the information to criminally investigate or prosecute any alcohol or drug abuse patient.[facility] HospitalIn the event this information is protected by the Federal Confidentiality of Alcohol and Drug Abuse Patient Records regulations: The Federal rules restrict any use of the information to criminally investigate or prosecute any alcohol or drug abuse patient.[facility] HospitalIn the event this information is protected by the Federal Confidentiality of Alcohol and Drug Abuse Patient Records regulations: The Federal rules restrict any use of the information to criminally investigate or prosecute any alcohol or drug abuse patient.[facility] HospitalIn the event this information is protected by the Federal Confidentiality of Alcohol and Drug Abuse Patient Records regulations: The Federal rules restrict any use of the information to criminally investigate or prosecute any alcohol or drug abuse patient.[facility] HospitalIn the event this information is protected by the Federal Confidentiality of Alcohol and Drug Abuse Patient Records regulations: The Federal rules restrict any use of the information to criminally investigate or prosecute any alcohol or drug abuse patient.[facility] HospitalIn the event this information is protected by the Federal Confidentiality of Alcohol and Drug Abuse Patient Records regulations: The Federal rules restrict any use of the information to criminally investigate or prosecute any alcohol or drug abuse patient.[facility] HospitalIn the event this information is protected by the Federal Confidentiality of Alcohol and Drug Abuse Patient Records regulations: The Federal rules restrict any use of the information to criminally investigate or prosecute any alcohol or drug abuse patient.[facility] HospitalIn the event this information is protected by the Federal Confidentiality of Alcohol and Drug Abuse Patient Records regulations: The Federal rules restrict any use of the information to criminally investigate or prosecute any alcohol or drug abuse patient.[facility] HospitalIn the event this information is protected by the Federal Confidentiality of Alcohol and Drug Abuse Patient Records regulations: The Federal rules restrict any use of the information to criminally investigate or prosecute any alcohol or drug abuse patient.[facility] HospitalIn the event this information is protected by the Federal Confidentiality of Alcohol and Drug Abuse Patient Records regulations: The Federal rules restrict any use of the information to criminally investigate or prosecute any alcohol or drug abuse patient.[facility] HospitalIn the event this information is protected by the Federal Confidentiality of Alcohol and Drug Abuse Patient Records regulations: The Federal rules restrict any use of the information to criminally investigate or prosecute any alcohol or drug abuse patient.[facility] HospitalIn the event this information is protected by the Federal Confidentiality of Alcohol and Drug Abuse Patient Records regulations: The Federal rules restrict any use of the information to criminally investigate or prosecute any alcohol or drug abuse patient.[facility] HospitalIn the event this information is protected by the Federal Confidentiality of Alcohol and Drug Abuse Patient Records regulations: The Federal rules restrict any use of the information to criminally investigate or prosecute any alcohol or drug abuse patient.[facility] HospitalIn the event this information is protected by the Federal Confidentiality of Alcohol and Drug Abuse Patient Records regulations: The Federal rules restrict any use of the information to criminally investigate or prosecute any alcohol or drug abuse patient.[facility] HospitalIn the event this information is protected by the Federal Confidentiality of Alcohol and Drug Abuse Patient Records regulations: The Federal rules restrict any use of the information to criminally investigate or prosecute any alcohol or drug abuse patient.[facility] HospitalIn the event this information is protected by the Federal Confidentiality of Alcohol and Drug Abuse Patient Records regulations: The Federal rules restrict any use of the information to criminally investigate or prosecute any alcohol or drug abuse patient.[facility] Reason for Visit (unrecogniz ed section and content) Specialty Diagnoses / Procedures Referred By Sandy douglas Referred To Contact Diagnoses new patient to establish care Procedures new patient Jossy Natarajan 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, 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 [address] [place] [address] [facility] Dept Referral ID Status Reason Start Date Expiration Date Visits Requested Visits Authorized [id number] Authorized Patient Cleared - Qualified 100% FAS 11/18/2021 02/16/2022 99 99 Reason Comments PT Eval Reason Comments Blood Pressure Reason Comments Dental Problem (RT) bottom tooth, l ump on jaw pain rated 10, x1 day Ear Problem (RT) ear pain 6 Specialty Diagnoses / Procedures Referred By Sandy douglas Referred To Contact [facility] Diagnoses Tooth Pain, with swelling Procedures [facility] [place] Conti, 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 [address] [place] [address] [facility] [address] [place] [address] Referral ID Status Reason Start Date Expiration Date Visits Requested Visits Authorized [id number] 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 Patient Cleared - Qualified 100% FAS 08/13/2021 11/11/2021 99 99 Reason Comments New Swelling Knee Pain Reason Comments Schedule Surgery Reason Comments Appointment Reason Comments Consult Reason Comments Pre-Op Teaching Reason Comments Hypertension Reason Comments Home Care CONFIRMATION CALL Reason Comments INS Coverage Reason Comments Home Care Missed visit Reason Comments Home Care Elevated BP 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 Reason Onset Date Comments Refill Request 12/07/2021 Reason Comments Home Care Bandage removal Reason Comments Home Care Missed visit Reason Onset Date Comments Refill Request 12/15/2021 Reason Comments Home Care Reason Comments Prescription Refills Pain med Patient Question Reason Onset Date Comments Refill Request 12/30/2021 Reason Comments No Show Pt now showed for ap pt Reason Onset Date Comments Refill Request 01/06/2022 Reason Onset Date Comments Refill Request 01/15/2022 Reason Comments Results Reason Onset Date Comments Refill Request 01/25/2022 Reason Comments Patient Question Reason Onset Date Comments Refill Request 02/06/2022 Reason Comments Established Patient Pre-Op Visit Reason Onset Date Comments Refill Request 02/16/2022 Reason Comments Established Patient Post Op Specialty Diagnoses / Procedures Referred By Sandy t Referred To Contact Physical Therapy / PHYSICAL THERAPY Diagnoses Status post total knee replacement, unspecified laterality Procedures CONSULT TO PHYSICAL THERAPY Monica Venegas PA-C [address] [place] [address] [employer] [address] [place] [address] Referral ID Status Reason Start Date Expiration Date Visits Requested Visits Authorized [id number] Authorized Financial Clearance Required - Self Pay Patient Cleared - Qualified 100% FAS 12/08/2021 03/08/2022 99 99 Reason Onset Date Comments Refill Request 02/25/2022 Reason Comments Pain Reason Onset Date Comments Refill Request 04/17/2022 Reason Comments Lab Orders Reason Onset Date Comments Refill Request 05/03/2022 Reason Onset Date Comments Refill Request 05/11/2022 Reason Comments Post Op Knee Replacement Reason Onset Date Comments Refill Request 05/18/2022 Reason Onset Date Comments Refill Request 05/25/2022 Reason Onset Date Comments Refill Request 05/23/2022 Reason Onset Date Comments Refill Request 05/31/2022 Reason Comments Established Patient Swelling Knee Pain Specialty Diagnoses / Procedures Referred By Sandy douglas Referred To Contact Orthopedics / ORTHOPAEDIC SURGERY Diagnoses Post op right robotic total knee arthroplasty Procedures NOEMY ESTABLISH Self Miguel Bennett MD [address] [place] [address] Referral ID Status Reason Start Date Expiration Date Visits Requested Visits Authorized [id number] Authorized Patient Cleared - Qualified 100% FAS 04/25/2022 07/24/2022 99 99 Reason Onset Date Comments Refill Request 06/08/2022 Reason Onset Date Comments Refill Request 06/14/2022 Reason Onset Date Comments Refill Request 06/22/2022 Reason Onset Date Comments Refill Request 07/01/2022 Reason Onset Date Comments Refill Request 07/11/2022 Reason Onset Date Comments Refill Request 2022 Reason Onset Date Comments Refill Request 07/17/2022 Reason Onset Date Comments Refill Request 07/25/2022 Reason Comments Cough Chest congestion, SO B x3 days Reason Onset Date Comments Refill Request 07/28/2022 Reason Onset Date Comments Refill Request 08/13/2022 Reason Onset Date Comments Refill Request 08/17/2022 Reason Onset Date Comments Refill Request 08/19/2022 Reason Onset Date Comments Refill Request 08/18/2022 Reason Onset Date Comments Refill Request 08/21/2022 Reason Comments ER F/U Specialty Diagnoses / Procedures Referred By Contac t Referred To Contact Diagnoses X-Ray right hip Procedures X-Ray Monica Venegas PA-C [address] [place] [address] [facility] Referral ID Status Reason Start Date Expiration Date Visits Requested Visits Authorized [id number] Authorized Patient Cleared - Qualified 100% FAS 08/01/2022 10/30/2022 99 99 Reason Onset Date Comments Transition Of Care 09/02/2022 D/C (AMA) [facility] 09/01/22 Reason Onset Date Comments Transition Of Care 09/13/2022 TCM Follow up [employer] Developer- Other 09/13/2022 Primary Care Coordination Intake Attempt Reason Comments No Show Second no show in 36 5 days. Reason Onset Date Comments Transition Of Care 09/23/2022 TCM Follow up Reason Comments Hospital F/U Reason Onset Date Comments Refill Request 10/30/2022 Reason Comments Consult Kidney Stones Specialty Diagnoses / Procedures Referred By Contac t Referred To Contact Urology / [facility] DEPARTMENT Diagnoses Left flank pain Bilateral renal stones Procedures CONSULT TO UROLOGY OFFICE/OUTPATIENT NEW HIGH MDM 60-74 MINUTES Jossy Natarajan, 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 [address] [place] [address] Cinthia Avilez PA-C [address] [place] [address] Referral ID Status Reason Start Date Expiration Date V isits Requested Visits Authorized [id number] Closed PCP Requested Referral 10/24/2022 10/24/2023 1 1 Reason Comments Hypertension Reason Comments Results Orders Reason Comments Patient Update Reason Comments 10 day f/u Reason Comments Hypertension Avg BP at home has b een 172/92 most recent was 197/94 Reason Onset Date Comments Refill Request 11/30/2022 Reason Onset Date Comments Refill Request 12/05/2022 Reason Onset Date Comments Refill Request 12/11/2022 Reason Comments MRI Safety Team Reason Comments Eye Problem right eye feels like foreign body in eye x 2 days Reason Onset Date Comments ED OUTREACH 12/27/2022 [facility]2022 Reason Comments Appointment New Patient Reason Comments ER F/U HTN . WANTS NORCO ON HAND for headache and left side pain Reason Comments Radiology US Specialty Diagnoses / Procedures Referred By Contac t Referred To Contact US IMAGING Diagnoses Left flank pain Bilateral renal stones Procedures US KIDNEY/BLADDER US RETROPERITONEAL REAL TIME W/IMAGE COMPLETE Cinthia Avilez PA-C [address] [place] [address] [place] [id number] Referral ID Status Reason Start Date Expiration Date V isits Requested Visits Authorized [id number] Closed Auto-Generate d Referral 11/04/2022 12/04/2023 1 1 Reason Comments Radiology US Specialty Diagnoses / Procedures Referred By Contac t Referred To Contact US IMAGING Diagnoses Renal cyst Procedures US KIDNEY/BLADDER US RETROPERITONEAL REAL TIME W/IMAGE COMPLETE Kt Mortensen MD [address] [address] [place] [id number] Referral ID Status Reason Start Date Expiration Date V isits Requested Visits Authorized [id number] Closed Auto-Generate d Referral 12/26/2022 03/19/2023 1 1 Reason Comments 4 week f/u HTN Reason Onset Date Comments Refill Request 01/26/2023 Reason Comments CARD New Patient Consult Uncontrolled hy pertension Specialty Diagnoses / Procedures Referred By Contac t Referred To Contact Cardiology / CARDIOLOGY Diagnoses new pt referred by Jossy Natarajan APRN.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 for Uncontrolled hypertension Procedures OFFICE/OUTPATIENT NEW MODERATE MDM 45-59 MINUTES NEW PATIENT Self Jeffrey Munguia MD [address] [place] [address] [place] [address] Referral ID Status Reason Start Date Expiration Date Visits Re quested Visits Authorized [id number] Closed 03/20/2022 03/19/2023 1 1 Reason Comments No Show Care Teams (unrecognized sec tion and content) 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 Relationship Specialty Start Date End Date Estefania Guardado PCP - General Family Practice 08/10/15 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 Relationship Specialty Start Date End Date Estefania Guardado PCP - General Family Practice 08/10/15 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 Relationship Specialty Start Date End Date Estefania Guardado PCP - General Family Practice 08/10/15 Cecilio Beaulieu, [facility] [address] [place] [address] Specialty Truck Driver Orthopedics 11/03/21 01/11/22 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 Relationship Specialty Start Date End Date Estefania Guardado PCP - General Family Practice 08/10/15 Cecilio Beaulieu, [facility] [address] [place] [address] Specialty Truck Driver Orthopedics 11/03/21 01/11/22 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 Relationship Specialty Start Date End Date Estefania Guardado PCP - General Family Practice 08/10/15 Cecilio Beaulieu, [facility] [address] [place] [address] Specialty Truck Driver Orthopedics 11/03/21 01/11/22 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 Relationship Specialty Start Date End Date Cecilio Beaulieu, [facility] [address] [place] [address] Specialty Truck Driver Orthopedics 11/03/2112/19 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 Relationship Specialty Start Date End Date Estefania Guardado PCP - General Family Practice 08/10/15 11/14/21 Cecilio Beaulieu, [facility] [address] [place] [address] Specialty Truck Driver Orthopedics 11/03/21 01/11/22 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 Relationship Specialty Start Date End Date Cecilio Beaulieu, [facility] [address] [place] [address] Specialty Truck Driver Orthopedics 11/03/2112/19 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 Relationship Specialty Start Date End Date SissenAidenin, [facility] [address] [place] [address] Specialty Truck Driver Orthopedics 11/03/2112/19 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 Relationship Specialty Start Date End Date Jossy Natarajan, 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 [address] [place] [address] PCP - General Family Practice 12/01/21 Sissen, Ceciilo, [facility] [address] [place] [address] Specialty Truck Driver Orthopedics 11/03/21 01/11/22 Nilay Francois PA-C [address] [place], [place] [id number] Referring Orthopedics 12/01/21 Miguel Bennett MD [address] [place], [place] [address] Home Care Provider Orthopedics 12/01/21 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 Relationship Specialty Start Date End Date Jossy Natarajan, 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 [address] [place] [address] PCP - General Family Practice 12/01/21 Aiden Beaulieuin, [facility] [address] [place] [address] Specialty Truck Driver Orthopedics 11/03/21 01/11/22 Nilay Francois PA-C [address] [place] [address] Referring Orthopedics 12/01/21 Miguel Bennett MD [address] [place], [place] [address] Home Care Provider Orthopedics 12/01/21 Rosie Phillip, PT [address] [place] [address] Opto Mechanical Engineer Post Acute Care 12/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 Specialty Start Date End Date Jossy Natarajan 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 [address] [place] [address] PCP - General Family Practice 12/01/21 Cecilio Beaulieu, [facility] [address] [place] [address] Specialty Truck Driver Orthopedics 11/03/21 01/11/22 Nilay Francois PA-C [address] [place] [address] Referring Orthopedics 12/01/21 Miguel Bennett MD [address] [place] [address] Home Care Provider Orthopedics 12/01/21 Rosie Phillip, PT [address] [place] [address] Opto Mechanical Engineer Post Acute Care 12/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 Specialty Start Date End Date Jossy Natarajan, 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 [address] [place] [address] PCP - General Family Practice 12/01/21 Cecilio Beaulieu, [facility] [address] [place] [address] Specialty Truck Driver Orthopedics 11/03/21 01/11/22 Nilay Francois PA-C [address] [place] [address] Referring Orthopedics 12/01/21 Miguel Bennett MD [address] [place] [address] Home Care Provider Orthopedics 12/01/21 Rosie Phillip, PT [address] [place] [address] Opto Mechanical Engineer Post Acute Care 12/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 Specialty Start Date End Date Jossy Natarajan, 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 [address] [place] [address] PCP - General Family Practice 12/01/21 Cecilio Beaulieu, [facility] [address] [place] [address] Specialty Truck Driver Orthopedics 11/03/21 01/11/22 Nilay Francois PA-C [address] [place] [address] Referring Orthopedics 12/01/21 Miguel Bennett MD [address] [place], [place] [address] Home Care Provider Orthopedics 12/01/21 Rosie Phillip, PT [address] [place] [address] Opto Mechanical Engineer Post Acute Care 12/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 Specialty Start Date End Date Jossy Natarajan, 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 [address] [place] [address] PCP - General Family Practice 12/01/21 Cecilio Beaulieu, [facility] [address] [place] [address] Specialty Truck Driver Orthopedics 11/03/21 01/11/22 Nilay Francois PA-C [address] [place] [address] Referring Orthopedics 12/01/21 Miguel Bennett MD [address] [place] [address] Home Care Provider Orthopedics 12/01/21 Rosie Phillip, PT [address] [place] [address] Opto Mechanical Engineer Post Acute Care 12/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 Specialty Start Date End Date Jossy Natarajan 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 [address] [place] [address] PCP - General Family Practice 12/01/21 [facility] [address] [place] [address] Specialty Truck Driver Orthopedics 11/03/21 01/11/22 Nilay Francois PA-C [address] [place] [address] Referring Orthopedics 12/01/21 Miguel Bennett MD [address] [facility] [place], [place] [address] Home Care Provider Orthopedics 12/01/21 Rosie Phillip, PT [address] [place] [address] Opto Mechanical Engineer Post Acute Care 12/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 Specialty Start Date End Date Jossy Natarajan 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 [address] [place] [address] PCP - General Family Medicine 12/01/21 Cecilio Beaulieu, [facility] [address] [place] [address] Specialty Truck Driver Orthopedics 11/03/21 01/11/22 Nilay Francois PA-C [address] [place] [address] Referring Orthopedics 12/01/21 Miguel Bennett MD [address] [place] [address] Home Care Provider Orthopedics 12/01/21 Rosie Phillip, PT [address] [place] [address] Opto Mechanical Engineer Post Acute Care 12/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 Specialty Start Date End Date Jossy Natarajan 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 [address] [place] [address] PCP - General Family Medicine 12/01/21 Cecilio Beaulieu, [facility] [address] [place] [address] Specialty Truck Driver Orthopedics 11/03/21 01/11/22 Nilay Francois PA-C [address] [place] [address] Referring Orthopedics 12/01/21 Miguel Bennett MD [address] [place], [place] [address] Home Care Provider Orthopedics 12/01/21 Rosie Phillip, PT [address] [place] [address] Opto Mechanical Engineer Post Acute Care 12/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 Specialty Start Date End Date Jossy Natarajan 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 [address] [place] [address] PCP - General Family Medicine 12/01/21 Cecilio Beaulieu, [facility] [address] [place] [address] Specialty Truck Driver Orthopedics 11/03/21 01/11/22 Nilay Francois PA-C [address] [place] [address] Referring Orthopedics 12/01/21 Miguel Bennett MD [address] [place] [address] Home Care Provider Orthopedics 12/01/21 Rosie Phillip, PT [address] [place] [address] Opto Mechanical Engineer Post Acute Care 12/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 Specialty Start Date End Date Jossy Natarajan 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 [address] [place] [address] PCP - General Family Medicine 12/01/21 Cecilio Beaulieu, [facility] [address] [place] [address] Specialty Truck Driver Orthopedics 11/03/21 01/11/22 Nilay Francois PA-C [address] [place] [address] Referring Orthopedics 12/01/21 Miguel Bennett MD [address] [place] [address] Home Care Provider Orthopedics 12/01/21 Rosie Phillip, PT [address] [place], [place] [address] Opto Mechanical Engineer Post Acute Care 12/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 Specialty Start Date End Date Jossy Natarajan, 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 [address] [place] [address] PCP - General Family Medicine 12/01/21 Cecilio Beaulieu, [facility] [address] [place] [address] Specialty Truck Driver Orthopedics 11/03/21 01/11/22 Nilay Francois PA-C [address] [place] [address] Referring Orthopedics 12/01/21 Miguel Bennett MD [address] [place] [address] Home Care Provider Orthopedics 12/01/21 Rosie Phillip, PT [address] [place] [address] Opto Mechanical Engineer Post Acute Care 12/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 Specialty Start Date End Date Jossy Natarajan 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 [address] [place] [address] PCP - General Family Medicine 12/01/21 Cecilio Beaulieu, [facility] [address] [place] [address] Specialty Truck Driver Orthopedics 11/03/21 01/11/22 Nilay Francois PA-C [address] [place] [address] Referring Orthopedics 12/01/21 Miguel Bennett MD [address] [place], [place] [address] Home Care Provider Orthopedics 12/01/21 Rosie Phillip, PT [address] [place] [address] Opto Mechanical Engineer Post Acute Care 12/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 Specialty Start Date End Date Jossy Natarajan APRN.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 [address] [place] [address] PCP - General Family Medicine 12/01/21 Cecilio Beaulieu, [facility] [address] [place] [address] Specialty Truck Driver Orthopedics 11/03/21 01/11/22 Nilay Francois PA-C [address] [place] [address] Referring Orthopedics 12/01/21 Miguel Bennett MD [address] [place] [address] Home Care Provider Orthopedics 12/01/21 Rosie Phillip, PT [address] [place] [address] Opto Mechanical Engineer Post Acute Care 12/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 Specialty Start Date End Date Jossy Natarajan 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 [address] [place] [address] PCP - General Family Medicine 12/01/21 Cecilio Beaulieu, [facility] [address] [place] [address] Specialty Truck Driver Orthopedics 11/03/21 01/11/22 Nilay Francois PA-C [address] [place] [address] Referring Orthopedics 12/01/21 Miguel Bennett MD [address] [facility] [place] [address] Home Care Provider Orthopedics 12/01/21 Rosie Phillip, PT [address] [place] [address] Opto Mechanical Engineer Post Acute Care 12/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 Specialty Start Date End Date Jossy Natarajan, 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 [address] [place] [address] PCP - General Family Medicine 12/01/21 Cecilio Beaulieu, [facility] [address] [place] [address] Specialty Truck Driver Orthopedics 11/03/21 01/11/22 Nilay Francois PA-C [address] [place] [address] Referring Orthopedics 12/01/21 Miguel Bennett MD [address] [place] [address] Home Care Provider Orthopedics 12/01/21 Rosie Phillip, PT [address] [place] [address] Opto Mechanical Engineer Post Acute Care 12/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 Specialty Start Date End Date Jossy Natarajan, 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 [address] [place] [address] PCP - General Family Medicine 12/01/21 Cecilio Beaulieu, [facility] [address] [place] [address] Specialty Truck Driver Orthopedics 11/03/21 01/11/22 Nilay Francois PA-C [address] [place] [address] Referring Orthopedics 12/01/21 Miguel Bennett MD [address] [place] [address] Home Care Provider Orthopedics 12/01/21 Rosie Phillip, PT [address] [place] [address] Opto Mechanical Engineer Post Acute Care 12/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 Specialty Start Date End Date Jossy Natarajan, 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 [address] [place], [place] [address] PCP - General Family Medicine 12/01/21 Cecilio Beaulieu, [facility] [address] [place] [address] Specialty Truck Driver Orthopedics 11/03/21 01/11/22 Nilay Francois PA-C [address] [place] [address] Referring Orthopedics 12/01/21 Miguel Bennett MD [address] [place] [address] Home Care Provider Orthopedics 12/01/21 Rosie Phillip, PT [address] [place] [address] Opto Mechanical Engineer Post Acute Care 12/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 Specialty Start Date End Date Jossy Natarajan, 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 [address] [place] [address] PCP - General Family Medicine 12/01/21 Cecilio Beaulieu, [facility] [address] [place] [address] Specialty Truck Driver Orthopedics 11/03/21 01/11/22 Nilay Francois PA-C [address] [place] [address] Referring Orthopedics 12/01/21 Miguel Bennett MD [address] [facility] [place], [place] [address] Home Care Provider Orthopedics 12/01/21 Rosie Phillip, PT [address] [place] [address] Opto Mechanical Engineer Post Acute Care 12/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 Specialty Start Date End Date Jossy Natarajan, 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 [address] [place] [address] PCP - General Family Medicine 12/01/21 Cecilio Beaulieu, [facility] [address] [place] [address] Specialty Truck Driver Orthopedics 11/03/21 01/11/22 Nilay Francois PA-C [address] [place] [address] Referring Orthopedics 12/01/21 Miguel Bennett MD [address] [facility] [place], [place] [address] Home Care Provider Orthopedics 12/01/21 Rosie Phillip, PT [address] [place] [address] Opto Mechanical Engineer Post Acute Care 12/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 Specialty Start Date End Date Jossy Natarajan, 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 [address] [place] [address] PCP - General Family Medicine 12/01/21 Cecilio Beaulieu, [facility] [address] [place] [address] Specialty Truck Driver Orthopedics 11/03/21 01/11/22 Nilay Francois PA-C [address] [place] [address] Referring Orthopedics 12/01/21 Miguel Bennett MD [address] [place], [place] [address] Home Care Provider Orthopedics 12/01/21 Rosie Phillip, PT [address] [place] [address] Opto Mechanical Engineer Post Acute Care 12/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 Specialty Start Date End Date Jossy Natarajan, 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 [address] [place] [address] PCP - General Family Medicine 12/01/21 Cecilio Beaulieu [facility] [address] [place] [address] Specialty Truck Driver Orthopedics 11/03/21 01/11/22 Nilay Francois, PA-C [address] [place] [address] Referring Orthopedics 12/01/21 Miguel Bennett MD [address] [facility] [place] [address] Home Care Provider Orthopedics 12/01/21 Rosie Phillip, PT [address] [place] [address] Opto Mechanical Engineer Post Acute Care 12/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 Specialty Start Date End Date Jossy Natarajan, 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 [address] [place] [address] PCP - General Family Medicine 12/01/21 Nilay Francois PA-C [address] [place] [address] Referring Orthopedics 12/01/21 Miguel Bennett MD [address] [place] [address] Home Care Provider Orthopedics 12/01/21 Rosie Phillip, PT [address] [place] [address] Opto Mechanical Engineer Post Acute Care 12/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 Specialty Start Date End Date Jossy Natarajan, 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 [address] [place] [address] PCP - General Family Medicine 12/01/21 Nilay Francois PA-C [address] [place] [address] Referring Orthopedics 12/01/21 Miguel Bennett MD [address] [place] [address] Home Care Provider Orthopedics 12/01/21 Rosie Phillip, PT [address] [place] [address] Opto Mechanical Engineer Post Acute Care 12/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 Specialty Start Date End Date Jossy Natarajan, 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 [address] [place] [address] PCP - General Family Medicine 12/01/21 Nilay Francois PA-C [address] [place] [address] Referring Orthopedics 12/01/21 Miguel Bennett MD [address] [facility] [place] [address] Home Care Provider Orthopedics 12/01/21 Rosie Phillip, PT [address] [place] [address] Opto Mechanical Engineer Post Acute Care 12/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 Specialty Start Date End Date Jossy Natarajan, 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 [address] [place] [address] PCP - General Family Medicine 12/01/21 Nilay Francois PA-C [address] [place] [address] Referring Orthopedics 12/01/21 Miguel Bennett MD [address] [place] [address] Home Care Provider Orthopedics 12/01/21 Rosie Phillip, PT [address] [place] [address] Opto Mechanical Engineer Post Acute Care 12/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 Specialty Start Date End Date Jossy Natarajan, 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 [address] [place] [address] PCP - General Family Medicine 12/01/21 Nilay Francois PA-C [address] [place] [address] Referring Orthopedics 12/01/21 Miguel Bennett MD [address] [place] [address] Home Care Provider Orthopedics 12/01/21 Rosie Phillip, PT [address] [place] [address] Opto Mechanical Engineer Post Acute Care 12/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 Specialty Start Date End Date Jossy Natarajan, 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 [address] [place] [address] PCP - General Family Medicine 12/01/21 Nilay Francois PA-C [address] [place] [address] Referring Orthopedics 12/01/21 Miguel Bennett MD [address] [place] [address] Home Care Provider Orthopedics 12/01/21 Rosie Phillip, PT [address] [place] [address] Opto Mechanical Engineer Post Acute Care 12/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 Specialty Start Date End Date Jossy Natarajan, 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 [address] [place] [address] PCP - General Family Medicine 12/01/21 Nilay Francois PA-C [address] [place] [address] Referring Orthopedics 12/01/21 Miguel Bennett MD [address] [place] [address] Home Care Provider Orthopedics 12/01/21 Rosie Phillip, PT [address] [place] [address] Opto Mechanical Engineer Post Acute Care 12/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 Specialty Start Date End Date Jossy Natarajan, 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 [address] [place] [address] PCP - General Family Medicine 12/01/21 Nilay Francois PA-C [address] [place] [address] Referring Orthopedics 12/01/21 Miguel Bennett MD [address] [facility] [place] [address] Home Care Provider Orthopedics 12/01/21 Rosie Phillip, PT [address] [place] [address] Opto Mechanical Engineer Post Acute Care 12/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 Specialty Start Date End Date Jossy Natarajan, 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 [address] [place] [address] PCP - General Family Medicine 12/01/21 Nilay Francois PA-C [address] [place] [address] Referring Orthopedics 12/01/21 Miguel Bennett MD [address] [place] [address] Home Care Provider Orthopedics 12/01/21 Rosie Phillip, PT [address] [place] [address] Opto Mechanical Engineer Post Acute Care 12/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 Specialty Start Date End Date Jossy Natarajan, 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 [address] [place] [address] PCP - General Family Medicine 12/01/21 Nilay Francois PA-C [address] [place] [address] Referring Orthopedics 12/01/21 Miguel Bennett MD [address] [place] [address] Home Care Provider Orthopedics 12/01/21 Rosie Phillip, PT [address] [place] [address] Opto Mechanical Engineer Post Acute Care 12/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 Specialty Start Date End Date Jossy Natarajan, 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 [address] [place] [address] PCP - General Family Medicine 12/01/21 Nilay Francois PA-C [address] [place] [address] Referring Orthopedics 12/01/21 Miguel Bennett MD [address] [place] [address] Home Care Provider Orthopedics 12/01/21 Rosie Phillip, PT [address] [place] [address] Opto Mechanical Engineer Post Acute Care 12/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 Specialty Start Date End Date Jossy Natarajan APRN.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 [address] [place] [address] PCP - General Family Medicine 12/01/21 Nilay Francois PA-C [address] [place] [address] Referring Orthopedics 12/01/21 Miguel Bennett MD [address] [place] [address] Home Care Provider Orthopedics 12/01/21 Rosie Phillip, PT [address] [place] [address] Opto Mechanical Engineer Post Acute Care 12/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 Specialty Start Date End Date Jossy Natarajan APRN.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 [address] [place] [address] PCP - General Family Medicine 12/01/21 Nilay Francois PA-C [address] [place] [address] Referring Orthopedics 12/01/21 Miguel Bennett MD [address] [place] [address] Home Care Provider Orthopedics 12/01/21 Rosie Phillip, PT [address] [place] [address] Opto Mechanical Engineer Post Acute Care 12/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 Start Date End Date Jossy Natarajan 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 [address] [place] [address] PCP - General Family Medicine 12/01/21 Nilay Francois PA-C [address] [place] [address] Referring Orthopedics 12/01/21 Miguel Bennett MD [address] [place] [address] Home Care Provider Orthopedics 12/01/21 Rosie Phillip, PT [address] [place] [address] Opto Mechanical Engineer Post Acute Care 12/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 Specialty Start Date End Date Jossy Natarajan, 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 [address] [place] [address] PCP - General Family Medicine 12/01/21 Nilay Francois PA-C [address] [place] [address] Referring Orthopedics 12/01/21 Miguel Bennett MD [address] [place] [address] Home Care Provider Orthopedics 12/01/21 Rosie Phillip, PT [address] [place] [address] Opto Mechanical Engineer Post Acute Care 12/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 Specialty Start Date End Date Jossy Natarajan, 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 [address] [place] [address] PCP - General Family Medicine 12/01/21 Nilay Francois PA-C [address] [place] [address] Referring Orthopedics 12/01/21 Miguel Bennett MD [address] [place] [address] Home Care Provider Orthopedics 12/01/21 Rosie Phillip, PT [address] [place] [address] Opto Mechanical Engineer Post Acute Care 12/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 Specialty Start Date End Date Jossy Natarajan, 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 [address] [place] [address] PCP - General Family Medicine 12/01/21 Nilay Francois PA-C [address] [place] [address] Referring Orthopedics 12/01/21 Miguel Bennett MD [address] [facility] [place] [address] Home Care Provider Orthopedics 12/01/21 Rosie Phillip, PT [address] [place] [address] Opto Mechanical Engineer Post Acute Care 12/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 Specialty Start Date End Date Jossy Natarajan, 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 [address] [place] [address] PCP - General Family Medicine 12/01/21 Nilay Francois PA-C [address] [place] [address] Referring Orthopedics 12/01/21 Miguel Bennett MD [address] [place] [address] Home Care Provider Orthopedics 12/01/21 Rosie Phillip, PT [address] [place] [address] Opto Mechanical Engineer Post Acute Care 12/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 Specialty Start Date End Date Jossy Natarajan, 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 [address] [place] [address] PCP - General Family Medicine 12/01/21 Nilay Francois PA-C [address] [place] [address] Referring Orthopedics 12/01/21 Miguel Bennett MD [address] [place] [address] Home Care Provider Orthopedics 12/01/21 Rosie Phillip, PT [address] [place] [address] Opto Mechanical Engineer Post Acute Care 12/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 Specialty Start Date End Date Jossy Natarajan, 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 [address] [place] [address] PCP - General Family Medicine 12/01/21 Nilay Francois PA-C [address] [place] [address] Referring Orthopedics 12/01/21 Miguel Bennett MD [address] [facility] [place] [address] Home Care Provider Orthopedics 12/01/21 Rosie Phillip, PT [address] [place] [address] Opto Mechanical Engineer Post Acute Care 12/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 Specialty Start Date End Date Jossy Natarajan, 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 [address] [place] [address] PCP - General Family Medicine 12/01/21 Nilay Francois PA-C [address] [place] [address] Referring Orthopedics 12/01/21 Miguel Bennett MD [address] [place] [address] Home Care Provider Orthopedics 12/01/21 Rosie Phillip, PT [address] [place] [address] Opto Mechanical Engineer Post Acute Care 12/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 Specialty Start Date End Date Jossy Natarajan, 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 [address] [place] [address] PCP - General Family Medicine 12/01/21 Nilay Francois PA-C [address] [place] [address] Referring Orthopedics 12/01/21 Miguel Bennett MD [address] [place] [place] [address] Home Care Provider Orthopedics 12/01/21 Rosie Phillip, PT [address] [place] [address] Opto Mechanical Engineer Post Acute Care 12/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 Specialty Start Date End Date Jossy Natarajan, 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 [address] [place] [address] PCP - General Family Medicine 12/01/21 Nilay Francois PA-C [address] [place] [address] Referring Orthopedics 12/01/21 Miguel Bennett MD [address] [place] [address] Home Care Provider Orthopedics 12/01/21 Rosie Phillip, PT [address] [place] [address] Opto Mechanical Engineer Post Acute Care 12/02/21 Kati Robles, valve assembler Electronics Detail Draftsperson 09/02/22 10/11/22 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 Relationship Specialty Start Date End Date Jossy Natarajan 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 [address] [place] [address] PCP - General Family Medicine 12/01/21 Nilay Francois PA-C [address] [place] [address] Referring Orthopedics 12/01/21 Miguel Bennett MD [address] [place] [address] Home Care Provider Orthopedics 12/01/21 Rosie Phillip, PT [address] [place] [address] Opto Mechanical Engineer Post Acute Care 12/02/21 Kati Robles RN Primary Care Electronics Detail Draftsperson 09/02/22 10/11/22 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 Relationship Specialty Start Date End Date Jossy Natarajan, 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 [address] [place] [address] PCP - General Family Medicine 12/01/21 Nilay Francois PA-C [address] [place] [address] Referring Orthopedics 12/01/21 Miguel Bennett MD [address] [place] [address] Home Care Provider Orthopedics 12/01/21 Rosie Phillip, PT [address] [place] [address] Opto Mechanical Engineer Post Acute Care 12/02/21 Kati Robles RN Primary Care Electronics Detail Draftsperson 09/02/22 10/11/22 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 Relationship Specialty Start Date End Date Jossy Natarajan 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 [address] [place] [address] PCP - General Family Medicine 12/01/21 Nilay Francois PA-C [address] [place] [address] Referring Orthopedics 12/01/21 Miguel Bennett MD [address] [place], [place] [address] Home Care Provider Orthopedics 12/01/21 Rosie Phillip, PT [address] [place] [address] Opto Mechanical Engineer Post Acute Care 12/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 Specialty Start Date End Date Jossy Natarajan, 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 [address] [place] [address] PCP - General Family Medicine 12/01/21 Nilay Francois PA-C [address] [place] [address] Referring Orthopedics 12/01/21 Miguel Bennett MD [address] [place] [address] Home Care Provider Orthopedics 12/01/21 Rosie Phillip, PT [address] [place] [address] Opto Mechanical Engineer Post Acute Care 12/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 Specialty Start Date End Date Jossy Natarajan, 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 [address] [place] [address] PCP - General Family Medicine 12/01/21 Nilay Francois PA-C [address] [place] [address] Referring Orthopedics 12/01/21 Miguel Bennett MD [address] [place] [address] Home Care Provider Orthopedics 12/01/21 Rosie Phillip, PT [address] [place], [place] [address]68331 Opto Mechanical Engineer Post Acute Care 12/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 Specialty Start Date End Date Jossy Natarajan, 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 [address] [place] [address] PCP - General Family Medicine 12/01/21 Nilay Francois PA-C [address] [place] [address] Referring Orthopedics 12/01/21 Miguel Bennett MD [address] [place] [address] Home Care Provider Orthopedics 12/01/21 Rosie Phillip, PT [address] [place] [address] Opto Mechanical Engineer Post Acute Care 12/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 Specialty Start Date End Date Jossy Natarajan 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 [address] [place] [address] PCP - General Family Medicine 12/01/21 Nilay Francois PA-C [address] [place] [address] Referring Orthopedics 12/01/21 Miguel Bennett MD [address] [facility] [place], [place] [address] Home Care Provider Orthopedics 12/01/21 RossnarcisalilliRonnie Rosie, PT [address] [place], [place] [address]31 Opto Mechanical Engineer Post Acute Care 12/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 Specialty Start Date End Date Jossy Natarajan APRN.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 [address] [place] [address] PCP - General Family Medicine 12/01/21 Nilay Francois PA-C [address] [place], [place] [address] Referring Orthopedics 12/01/21 Miguel Bennett MD [address] [facility] [place] [place] [address] Home Care Provider Orthopedics 12/01/21 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 Relationship Specialty Start Date End Date Jossy Natarajan APRN.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 [address] [place] [address] PCP - General Family Medicine 12/01/21 Nilay Francois PA-C [address] [place] [address] Referring Orthopedics 12/01/21 Miguel Bennett MD [address] [place] [address] Home Care Provider Orthopedics 12/01/21 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 Relationship Specialty Start Date End Date Jossy Natarajan APRN.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 [address] [place] [address] PCP - General Family Medicine 12/01/21 Nilay Francois PA-C [address] [place] [address] Referring Orthopedics 12/01/21 Miguel Bennett MD [address] [place] [address] Home Care Provider Orthopedics 12/01/21 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 Relationship Specialty Start Date End Date Jossy Natarajan, 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 [address] [facility] [place] [address] PCP - General Family Medicine 12/01/21 Nilay Francois PA-C [address] [place] [address] Referring Orthopedics 12/01/21 Miguel Bennett MD [address] [place] [address] Home Care Provider Orthopedics 12/01/21 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 Relationship Specialty Start Date End Date Jossy Natarajan, 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 [address] [facility] [place] [address] PCP - General Family Medicine 12/01/21 Nilay Francois PA-C [address] [place] [address] Referring Orthopedics 12/01/21 Miguel Bennett MD [address] [place] [address] Home Care Provider Orthopedics 12/01/21 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 Relationship Specialty Start Date End Date Jossy Natarajan APRN.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 [address] [place] [address] PCP - General Family Medicine 12/01/21 Nilay Francois PA-C [address] [place] [address] Referring Orthopedics 12/01/21 Miguel Bennett MD [address] [place] [address] Home Care Provider Orthopedics 12/01/21 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 Relationship Specialty Start Date End Date Jossy Natarajan APRN.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 [address] [place] [address] PCP - General Family Medicine 12/01/21 Nilay Francois PA-C [address] [place] [address] Referring Orthopedics 12/01/21 Miguel Bennett MD [address] [place] [address] Home Care Provider Orthopedics 12/01/21 Kt Mortensen MD [address] [address] Physician Nephrology 12/09/22 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 Relationship Specialty Start Date End Date Jossy Natarajan APRN.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 [address] [place] [address] PCP - General Family Medicine 12/01/21 Nilay Francois PA-C [address] [place] [address] Referring Orthopedics 12/01/21 Miguel Bennett MD [address] [place] [address] Home Care Provider Orthopedics 12/01/21 Kt Mortensen MD [address] [address] Physician Nephrology 12/09/22 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 Relationship Specialty Start Date End Date Jossy Natarajan APRN.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 [address] [place] [address] PCP - General Family Medicine 12/01/21 Nilay Francois PA-C [address] [place] [address] Referring Orthopedics 12/01/21 Miguel Bennett MD [address] [place] [address] Home Care Provider Orthopedics 12/01/21 Kt Mortensen MD [address] [address] Physician Nephrology 12/09/22 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 Relationship Specialty Start Date End Date Jossy Natarajan APRN.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 [address] [place] [address] PCP - General Family Medicine 12/01/21 Nilay Francois PA-C [address] [place] [address] Referring Orthopedics 12/01/21 Miguel Bennett MD [address] [place] [address] Home Care Provider Orthopedics 12/01/21 Kt Mortensen MD [address] [address] Physician Nephrology 12/09/22 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 Relationship Specialty Start Date End Date Jossy Natarajan APRN.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 [address] [place] [address] PCP - General Family Medicine 12/01/21 Nilay Francois PA-C [address] [place] [address] Referring Orthopedics 12/01/21 Miguel Bennett MD [address] [place], [place] [address] Home Care Provider Orthopedics 12/01/21 Kt Mortensen MD [address] [address] Physician Nephrology 12/09/22 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 Relationship Specialty Start Date End Date Jossy Natarajan APRN.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 [address] [place] [address] PCP - General Family Medicine 12/01/21 Nilay Francois PA-C [address] [place] [address] Referring Orthopedics 12/01/21 Miguel Bennett MD [address] [place] [address] Home Care Provider Orthopedics 12/01/21 Kt Mortensen MD [address] [address] Physician Nephrology 12/09/22 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 Relationship Specialty Start Date End Date Jossy Natarajan APRN.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 [address] [place] [address] PCP - General Family Medicine 12/01/21 Nilay Francois PA-C [address] [place] [address] Referring Orthopedics 12/01/21 Miguel Bennett MD [address] [place] [address] Home Care Provider Orthopedics 12/01/21 Kt Mortensen MD [address] [address] Physician Nephrology 12/09/22 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 Relationship Specialty Start Date End Date Jossy Natarajan APRN.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 [address] [place] [address] PCP - General Family Medicine 12/01/21 Nilay Francois PA-C [address] [place] [address] Referring Orthopedics 12/01/21 Miguel Bennett MD [address] [place] [address] Home Care Provider Orthopedics 12/01/21 Kt Mortensen MD [address] [address] Physician Nephrology 12/09/22 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 Relationship Specialty Start Date End Date Jossy Natarajan APRN.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 [address] [place] [address] PCP - General Family Medicine 12/01/21 Nilay Francois PA-C [address] [place] [address] Referring Orthopedics 12/01/21 Miguel Bennett MD [address] [place] [address] Home Care Provider Orthopedics 12/01/21 Kt Mortensen MD [address] [address] Physician Nephrology 12/09/22 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 Relationship Specialty Start Date End Date Jossy Natarajan 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 [address] [place] [address] PCP - General Family Medicine 12/01/21 Nilay Francois PA-C [address] [place] [address] Referring Orthopedics 12/01/21 Miguel Bennett MD [address] [facility] [place] [address] Home Care Provider Orthopedics 12/01/21 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 Relationship Specialty Start Date End Date Jossy Natarajan, 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 [address] [place] [address] PCP - General Family Medicine 12/01/21 Nilay Francois PA-C [address] [place] [address] Referring Orthopedics 12/01/21 Miguel Bennett MD [address] [facility] [place] [place] [address] Home Care Provider Orthopedics 12/01/21 Rosie Phillip, PT [address] [place], [place] [address]31 Opto Mechanical Engineer Post Acute Care 12/02/21 11/06/22 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 Relationship Specialty Start Date End Date Jossy Natarajan, 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 [address] [place] [address] PCP - General Family Medicine 12/01/21 Nilay Francois PA-C [address] [place] [address] Referring Orthopedics 12/01/21 Miguel Bennett MD [address] [facility] [place], [place] [address] Home Care Provider Orthopedics 12/01/21 Kt Mortensen MD [address] [address] Physician Nephrology 12/09/22 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 Relationship Specialty Start Date End Date Jossy Natarajan, 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 [address] [place] [address] PCP - General Family Medicine 12/01/21 Nilay Francois PA-C [address] [place] [address] Referring Orthopedics 12/01/21 Miguel Bennett MD [address] [facility] [place], [place] [address] Home Care Provider Orthopedics 12/01/21 Kt Mortensen MD [address] [address] Physician Nephrology 12/09/22 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 Relationship Specialty Start Date End Date Jossy Natarajan, 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 [address] [place] [address] PCP - General Family Medicine 12/01/21 Nilay Francois PA-C [address] [place] [address] Referring Orthopedics 12/01/21 Migule Bennett MD [address] [place] [address] Home Care Provider Orthopedics 12/01/21 Kt Mortensen MD [address] [place] [address] Physician Nephrology 12/09/22 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 Relationship Specialty Start Date End Date Jossy Natarajan APRN.GAMBLING COUNSELLOR [address] [place] [address] PCP - General Family Medicine 12/01/21 Nilay Francois PA-C [address] [place] [address] Referring Orthopedics 12/01/21 Miguel Bennett MD [address] [place] [address] Home Care Provider Orthopedics 12/01/21 Kt Mortensen MD [address] [address] Physician Nephrology 12/09/22 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 Relationship Specialty Start Date End Date Jossy Natarajan 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 [address] [place] [address] PCP - General Family Medicine 12/01/21 Nilay Francois PA-C [address] [place] [address] Referring Orthopedics 12/01/21 Miguel Bennett MD [address] [place], [place] [address] Home Care Provider Orthopedics 12/01/21 Kt Mortensen MD [address] [address] Physician Nephrology 12/09/22 FOR RECORDS PERTAINING TO PATIENTS WHO ARE OR HAVE BEEN ENROLLED IN A CHEMICAL DEPENDENCY/SUBSTANCEABUSE PROGRAM, SOME INFORMATION MAY BE OMITTED. This clinical summary was aggregated from multiple sources. Caution should be exercised in using it in the provision of clinical care. This summary normalizes information from multiple sources, and as a consequence, information in this document may materially change the coding, format and clinical context of patient data. In addition, data may be omitted in some cases. CLINICAL DECISIONS SHOULD BE BASED ON THE PRIMARY CLINICAL RECORDS. [employer] [facility] provides no warranty or guarantee of the accuracy or completeness of information in this document.
[2023-04-10 18:46] VITALS: PULSE 71; RESP 16; O2SAT 95
== END 2023-04-10 18:49 | disposition home or self-care (01) ==
PROVIDERS: Emergency Provider Emergency Medicine; PCP Nurse Practitioner Family; Visit Provider Emergency Medicine
DX: S76.912A Strain of unspecified muscles, fascia and tendons at thigh level, left thigh, initial encounter (principal); F17.210 Nicotine dependence, cigarettes, uncomplicated; X50.0XXA Overexertion from strenuous movement or load, initial encounter; Y93.89 Activity, other specified; I10 Essential (primary) hypertension; Z79.899 Other long term (current) drug therapy; Z96.659 Presence of unspecified artificial knee joint
CPT/HCPCS: 73552; 96372; 99282

== ENCOUNTER 2023-06-12 20:17 | Emergency (ER) | payer SELFPAY ==
[2023-06-12 20:22] VITALS: BP 228/139; PULSE 98; RESP 24; TEMP 36.6; O2SAT 97; BMI 37.9
--- NOTE | 2023-06-12 20:25 | ED.RN ---
Pt is worked up, breathing heavily and not holding his nose to help the bleeding stop. Pt asked to try to relax, take slow calming breaths, a clamp was placed on nose and he was given a emesis bag to spit in and use for trash. This RN also cleaned up pt's hands which were covered in blood. This RN attempted to get vital signs and finish triage questioning. Pt is irrate and yells his answers at this RN, demanding something for his TOTH. This RN explained that as soon as the MD sees him then he will likely be prescribed something to help with his TOTH and elevated BP. Pt taken to room for MD roy.
[2023-06-12 20:27] VITALS: BMI 37.9
[2023-06-12 20:42] VITALS: BP 201/86
--- NOTE | 2023-06-12 21:04 | EX.ED.DYSGE1 ---
HPI History of Present Illness Chief Complaint: Nosebleed Informant: patient Narrative Narrative: Patient presents with a spontaneous right-sided nosebleed that started about an hour ago. He states he was really bleeding a lot, mostly from the right side, some of it going down the back of his throat and then some of the coming out the left side later, but mostly the right. He was able to get it to stop upon my initial evaluation saying that he blew his nose to get a lot of clots out and has not had any more rebleeding since. He takes no antiplatelet or anticoagulant medications. He states he has a bad headache, which he often does when his blood pressure goes up, he checked it earlier today it was in the 180 range, so he took an extra dose of his blood pressure medication as directed by his doctor who prescribes it. This is been a chronic issue for him, episodes of high blood pressure, difficult to get it under control. He states that this is not dissimilar to other times, But he has never had a nosebleed like this before. Otherwise he feels okay. [facility] Medical History (Updated 06/12/23 @ 21:[address] Miguel Gutierrez MD) Anxiety and depression Diverticulitis Hypertension Nephrolithiasis Osteoarthritis Home Medications amoxicillin 875 mg-potassium clavulanate 125 mg tablet 1 tab PO Q8H #30 tabs 06/26/21 [Rx Last Taken Unknown] ondansetron 4 mg disintegrating tablet 4 mg PO Q8H PRN PRN Nausea #10 tabs 06/26/21 [Rx Last Taken Unknown] cyclobenzaprine 10 mg tablet 10 mg PO TID PRN Muscle Spasm #20 TABLETS 10/22/22 [Rx Last Taken Unknown] hydrocodone-acetaminophen 5-325mg 5mg-325mg 1 tab PO Q4H PRN PRN Pain 2 days #10 TABLETS 10/22/22 [Rx Last Taken Unknown] amlodipine 10 mg tablet 10 mg PO DAILY 12/24/22 [History Last Taken Unknown] chlorthalidone 25 mg tablet 25 mg PO DAILY 12/24/22 [History Last Taken Unknown] doxycycline hyclate 100 mg capsule 100 mg PO BID #20 caps 12/24/22 [Rx Last Taken Unknown] finasteride 5 mg tablet 5 mg PO DAILY 12/24/22 [History Last Taken Unknown] hydralazine 50 mg tablet 50 mg PO TID 12/24/22 [History Last Taken Unknown] labetalol 200 mg tablet 300 mg PO BID 12/24/22 [History Last Taken Unknown] lisinopril 10 mg tablet 40 mg PO BID 12/24/22 [History Last Taken Unknown] hydrocodone-acetaminophen 5-325mg 5mg-325mg 1 tab PO Q6H PRN pain 3 days #12 tabs 04/10/23 [Rx Last Taken Unknown] Allergy/AdvReac Type Severity Reaction Status Date / Time No Known Allergies Allergy Verified 06/12/23 20:21 Surgical History History of nasal surgery History of repair of ACL Hx of arthroscopic knee surgery Hx of total knee replacement Social History Smoking Status: Current every day smoker tobacco type: cigarettes EXAM Physical Exam Const Vital Signs: 06/12/23 20:22 06/12/23 20:42 06/12/23 21:26 Temperature 98 F Temperature Source Temporal Pulse Rate 98 Respiratory Rate 24 H Blood Pressure 228/139 H 201/86 H 169/114 H Blood Pressure Mean 168 124 132 Pulse Ox 97 Oxygen Delivery Method Room Air 06/12/23 21:35 Temperature 98 F Temperature Source Pulse Rate 98 Respiratory Rate 24 H Blood Pressure 169/114 H Blood Pressure Mean 132 Pulse Ox 97 Oxygen Delivery Method MDM MDM MDM Narrative Medical decision making narrative: I ordered a BMP because he has not had his renal function checked in a while, while also IV hydralazine and oral clonidine in order to help get his pressure down, his blood pressure is 228/139 and he is saying he has a terrible headache. At this time his nosebleed seems to be controlled, he does not have any clots in his nose, but I cannot see on inspection the source of the bleeding. Therefore I advised that we observe him for rebleeding while we are getting his blood pressure down. I discussed with him that I was not able to look further into his nose and then the otoscope would allow me, and I was not able to cauterize a source of bleeding that I was not able to see. Initially he was agreeable to that, but then came and told nurses that he did not want to do any of this, did not want an IV, and wanted to leave. I had ordered a BMP to check his renal function since this had not been checked in over 6 months according to my records, and he told me about recurrent issues of difficult to control high blood pressures. Also ordered an IV with hydralazine in addition to the clonidine in order to try to get his pressure controlled more quickly rather than just waiting for the oral clonidine to work and extending the patient's stay, in addition to trying to prevent recurrent bleeding more efficiently. However, the patient left before I had a chance to explain any of this in detail to him, and although I had printed discharge instructions to give to him along with discussing further, he left prior to receiving any of this. Discharge Plan Triage Chief Complaint: Nosebleed ED Provider: Miguel Gutierrez Dx/Rx/DC Orders Clinical Impression: Acute anterior epistaxis, Accelerated hypertension Instructions: ED Epistaxis (Adult) Prescriptions: No Action amoxicillin-pot clavulanate 875-125 mg tablet 1 tab PO Q8H Qty: 30 0RF Hold Instructions: Pt has been DC'd ondansetron 4 mg tablet,disintegrating 4 mg PO Q8H PRN PRN (Reason: Nausea) Qty: 10 0RF cyclobenzaprine [cyclobenzaprine] 10 mg tablet 10 mg PO TID PRN (Reason: Muscle Spasm) Qty: 20 0RF Hold Instructions: Pt has been DC'd hydrocodone-acetaminophen [hydrocodone-acetaminophen] 5-325 mg tablet 1 tab PO Q4H PRN PRN (Reason: Pain) 2 Days Qty: 10 0RF Hold Instructions: Pt has been DC'd labetalol 200 mg tablet 300 mg PO BID Patient Comments: TAKE 1 & 1/2 (ONE AND ONE-HALF) TABLETS BY MOUTH TWICE DAILY hydralazine 50 mg tablet 50 mg PO TID Patient Comments: TAKE 1 TABLET BY MOUTH THREE TIMES DAILY finasteride 5 mg tablet 5 mg PO DAILY Patient Comments: Take 1 tablet by mouth once daily. chlorthalidone 25 mg tablet 25 mg PO DAILY Patient Comments: Take 1 tablet by mouth once daily. amlodipine 10 mg tablet 10 mg PO DAILY Patient Comments: Take 1 tablet by mouth once daily. lisinopril 10 mg tablet 40 mg PO BID doxycycline hyclate 100 mg capsule 100 mg PO BID Qty: 20 0RF hydrocodone-acetaminophen 5-325 mg tablet 1 tab PO Q6H PRN (Reason: pain) 3 Days Qty: 12 0RF Primary Care Provider: Jossy Natarajan NP Referrals: Jossy Natarajan [facility] [Primary Care Provider] - Doctor,Your [Non-Staff] - As soon as possible Activity Restrictions/Additional Instructions: Get any [id number]-[id number] nasal decongestant spray containing oxymetazoline or phenylephrine. For moderate-severe nosebleed: 1 - gather supplies: nasal decongestant spray (above), cotton ball, box of tissues, garbage can, old towel that you can wrap around your chest/neck (to catch blood) 2 - soak a cotton ball in the nasal spray 3 - blow your nose, get all blood and clots out, keep chin down to prevent blood from going back into throat and forming clots 4 - after blowing the last time, quickly spray 2 sprays of the nasal spray into the affected side and sniff it back, immediately followed by twisting the soaked cotton ball into the front of your nose and then hold pressure with your fingers. 5 - if bleeding controlled, leave cotton ball in place for at least 20 min before checking to see if the bleeding is controlled by removing the cotton ball. If not able to control bleeding, always welcome to return to the ER for help. Disposition Disposition: Elopement Discharge Date/Time: 06/12/23 21:37
--- NOTE | 2023-06-12 21:16 | ED.RN ---
WENT TO START IV AND DRAW BLOOD AND THE PT STATED, WOA WOA WHAT'S THIS ALL ABOUT. EDUCATED HIM THAT IT WAS FOR LAB DRAWS AND A WAY TO GIVE BP MEDICATION. PT REFUSED IV, I CAN TAKE BP MEDICINE AT HOME. i CAME IN FOR A BLOODY NOSE. SKYE CLEMENTE--PT'S NURSE--MADE AWARE.
[2023-06-12] MEDS: cloNIDine HCl 0.2 MG Tablet PO (21:23)
[2023-06-12 21:26] VITALS: BP 169/114
--- NOTE | 2023-06-12 21:27 | ED.RN ---
Went in to speak to patient, he reports he is going to leave prior to getting discharge instructions.
--- NOTE | 2023-06-12 21:27 | ED.RN ---
PT INFORMED THAT WITH HIS HYPERTENSION AND NOSE BLEED, RISK OF STROKE IS POSSIBLE, PT'S RESPONSE WAS IF THEY HAVEN'T FIGURED IT OUT IN TWO YEARS HOW CAN IT BE BETTER NOW PT REPORTED HE HAS A INTAKE ASSESSOR AND SPECIALIST AND NO ONE CAN FIGURE ANYTHING OUT. PT THEN STATED THAT THIS NURSE WAS RUDE AND HAD NO BED SIDE MANNER WHEN EXPRESSING CONCERN OVER PT'S BP. PT REPORTED HIS PRESSURE WAS BETTER WHEN IT WAS RECHECKED AT 169/114. PT WANTED TO LEAVE, IF IT'S ONE OF THOSE CASES OF HAVING TO TAKE THE MEDICATION AND WAIT 45 MINUTES I WON'T TAKE THE MEDICATION, I'LL JUST LEAVE CHARGE NURSE, KWAN SLAUGHTERRN, INFORMED OF SAME.
[2023-06-12 21:35] VITALS: BP 169/114; PULSE 98; RESP 24; TEMP 36.6; O2SAT 97
--- NOTE | 2023-06-12 23:10 | ED.RN ---
and patient called in reporting that his nose had started bleeding again asking if it was okay. Informed patient this nurse could not determine that over the phone. Referred patient to him leaving prior to receiving discharge instructions and refused lab work and IV blood pressure medication. Patient reports he never refused blood work. Referred patient to nurse coming in to start IV and draw labs and him refusing, and him telling this nurse there is no point for testing or medications running up a bill when I am fine. Patient then asked if he was going to be okay, informed patient again that this nurse could not give any medical advice over the phone. Verbalized understanding.
== END 2023-06-12 21:37 | disposition left against medical advice (07) ==
PROVIDERS: Emergency Provider Emergency Medicine; PCP Nurse Practitioner Family; Visit Provider Emergency Medicine
DX: R04.0 Epistaxis (principal); F17.210 Nicotine dependence, cigarettes, uncomplicated; I10 Essential (primary) hypertension; Z79.899 Other long term (current) drug therapy; Z96.659 Presence of unspecified artificial knee joint
CPT/HCPCS: 99282

== ENCOUNTER 2024-06-28 13:43 | Emergency (ER) | payer SELFPAY ==
[2024-06-28 13:43] VITALS: BP 247/114; PULSE 82; RESP 18; TEMP 36.6; O2SAT 100; BMI 36.5
--- NOTE | 2024-06-28 13:54 | EDS_ITS ---
HPI History of Present Illness Chief Complaint: Flank Pain Detail of Chief Complaint: Acute right flank pain with nausea and vomiting Informant: patient Onset/Context/Timing Onset: Today Context: Sudden Onset Timing: Intermittent Quality: Pain Location: right flank Current Severity: Severe Maximum Severity: Severe Worsened by: Nothing Relieved by: nothing Associated Symptoms Associated Symptoms: Nausea vomiting Narrative Narrative: Patient is a 53-year-old male. He has history of hypertension who is presently on 300 mg of labetalol 3 times a day and 40 mg of lisinopril twice a day who presents with abrupt onset of right flank pain that started last evening. He states he drank a bunch of water. He believes he passed the stone since his pain resolved. Couple hours prior to presentation he developed severe right flank pain again that radiates anteriorly but not down to the groin. He denies dysuria, frequency, urgency or hematuria. He had nausea and 1 episode of vomiting last night. He is nauseous presently. He denies fever, chills night sweats. He was seen in May and blood pressure at that time was elevated. He was treated with IV hydralazine and p.o. clonidine Patient denies chest pain or upper back pain. Patient denies paresthesia, anesthesia or motor weakness upper or lower extremity. Patient states that every time he had a stone he had to have it surgically removed. Prior similar symptoms: Yes (Kidney stone) Recent Illness/Hospitalization: Yes (Elevated blood pressure) [facility] Medical History Diverticulitis Hypertension Anxiety and depression Osteoarthritis Nephrolithiasis Home Medications ?Medication ?Instructions ?Recorded ?Last Taken ?Type amoxicillin 875 mg-potassium 1 tab PO Q8H #30 tabs 12/09 Unknown Rx clavulanate 125 mg tablet Held on 12/24/22. Instructions: Pt has been DC'd ondansetron 4 mg disintegrating 4 mg PO Q8H PRN PRN Na usea #10 tabs 06/26/21 Unknown Rx tablet cyclobenzaprine 10 mg tablet 10 mg PO TID PRN Muscle S pasm #20 10/22/22 Unknown Rx Held on 12/24/22. TABLETS Instructions: Pt has been DC'd hydrocodone-acetaminophen 5-325mg 1 tab PO Q4H PRN PRN Pain 2 days 10/22/22 Unknown Rx 5mg-325mg #10 TABLETS Held on 12/24/22. Instructions: Pt has been DC'd amlodipine 10 mg tablet 10 mg PO DAILY 12/24/22 Unkn own History chlorthalidone 25 mg tablet 25 mg PO DAILY 12/24/22 Un known History doxycycline hyclate 100 mg capsule 100 mg PO BID #20 c aps 12/24/22 Unknown Rx finasteride 5 mg tablet 5 mg PO DAILY 12/24/22 Unkno wn History hydralazine 50 mg tablet 50 mg PO TID 12/24/22 Unknow n History labetalol 200 mg tablet 300 mg PO BID 12/24/22 Unkno wn History lisinopril 10 mg tablet 40 mg PO BID 12/24/22 Unknow n History hydrocodone-acetaminophen 5-325mg 1 tab PO Q6H PRN channing n 3 days #12 04/10/23 Unknown Rx 5mg-325mg tabs naproxen 500 mg tablet 500 mg PO BID #14 tabs 06/28 Unknown Rx oxycodone-acetaminophen 5 mg-325 1 tab PO Q6H PRN PRN Pain 3 days 06/28/24 Unknown Rx mg tablet #12 TABLETS Allergy/AdvReac Type Severity Reaction Status Date / Time No Known Allergies Allergy Verified 06/28/24 13:45 Family History no significant family his Surgical History History of nasal surgery Hx of arthroscopic knee surgery History of repair of ACL Hx of total knee replacement Social History household members: spouse Smoking Status: Heavy Smoker (>10/day) ROS ROS ED Constitutional Constitutional ED: Denies chills, fever(s), subjective, sweats or weight loss Eyes Eyes: Denies blurry vision, change in vision or diplopia ENT ENT ED: Denies rhinorrhea or sore throat Cardiovascular Cardiovascular: Denies chest pain, orthopnea, palpitations, paroxysmal nocturnal dyspnea or racing heartbeat Respiratory/Chest Respiratory/Chest: Denies cough, dyspnea, dyspnea on exertion, orthopnea or paroxysmal nocturnal dyspnea Gastrointestinal Gastrointestinal: Reports abdominal pain, nausea and vomiting; Denies constipation, diarrhea or melena Genitourinary Genitourinary ED: Denies dysuria, hematuria or urinary frequency Musculoskeletal Musculoskeletal: Reports other Details: Right flank pain ; Denies arthralgias, back pain, myalgias or neck pain Integumentary Denies rash Neurologic Neurologic: Denies headache(s) or paresthesias Hematologic/Lymphatic Hematologic/Lymphatic: Reports systems reviewed and no addt'l complaints, except as documented EXAM Physical Exam Const Vital Signs: 06/28/24 13:43 06/28/24 16:14 Temperature 97.8 F Temperature Source Oral Pulse Rate 82 73 Respiratory Rate 18 18 Blood Pressure 247/114 H 210/99 H Blood Pressure Mean 158 136 Pulse Ox 100 95 Oxygen Delivery Method Room Air Positive well nourished Constitutional Narrative: Patient appears in obvious distress. His blood pressure is elevated 247/114. He is breathing faster than 18 times a minute. He is unable to find a position of comfort. General Appearance ED: Negative for pallor HEENT Reports moist mucous membranes HEENT Narrative: Head is atraumatic normocephalic. Ears normal. Nares patent Eyes PERRL and EOMs intact bilaterally General Eye ED: Negative for pale conjunctiva or scleral icterus Neck no lymphadenopathy, supple and no JVD Chest Wall inspection of chest normal and palpation of chest normal Resp normal respiratory effort and clear to auscultation bilaterally Cardio regular rate, regular rhythm, S1 normal heart sound, S2 normal heart sound and no murmurs GI normal to inspection, nondistended, normoactive bowel sounds, non-tender, non- distended and no masses; Negative for hepatosplenomegaly Palpation: soft Back/Spine no CVA tenderness Extremity normal to inspection Extremity Narrative: There is no clubbing, cyanosis or pallor. Radial pulses 2+ and symmetric. PT pulses 1+ and symmetric. General Extremety ED: Negative for edema General Extremity: Negative for edema Neuro oriented x3, CN's II-XII intact bilaterally and no sensory deficits noted Sensorium / Orientation: alert Motor Exam: strength 5/5 throughout Psych mental status grossly normal Mood & Affect: Negative for depressed Skin no rashes or lesions noted, no wounds and skin turgor normal General Skin Exam: Negative for jaundice or pallor MDM MDM MDM Narrative Medical decision making narrative: Patient with obvious acute intermittent flank pain. Most likely this represents a renal calculus. Also need to entertain possibility of aortic dissection, aortic aneurysm. Will medicate with Zofran for his nausea ketorolac and morphine for his pain. His blood pressure is not improved we will treat his blood pressure. CT of the abdomen pelvis without contrast was ordered since the story is more consistent with obstructing ureteral stone versus dissection or abdominal aortic aneurysm. He was seen last month for accelerated hypertension. And he was treated at that time with clonidine and IV hydralazine. History & Record Review Additional record(s) reviewed:: Prior ED visit (Patient was seen in May 2023 for elevated blood pressure by Dr. Miguel Gutierrez.) and Prior labs Lab Data Attestation: I reviewed the patient's lab results. Lab results narrative: CBC is unremarkable basic metabolic panel is unremarkable. UA macro was positive for occult blood and protein. Micro was pending. Labs: Laboratory Results - last 24 hr 06/28/24 06/28/24 14:16 15:15 WBC 9.7 RBC 4.86 Hgb 14.4 Hct 42.0 MCV 86.4 MCH 29.6 MCHC 34.3 RDW Std Deviation 42.5 RDW Coeff of Shin 13.5 Plt Count 315 MPV 10.2 Immature Gran % (Auto) 0.400 Neut % (Auto) 64.9 Lymph % (Auto) 24.2 [place] % (Auto) 6.7 Eos % (Auto) 2.9 Baso % (Auto) 0.9 Absolute Neuts (auto) 6.3 Absolute Lymphs (auto) 2.36 Nucleated RBC % 0 Sodium 140 Potassium 4.4 Chloride 104 Carbon Dioxide 24.2 Anion Gap 11 BUN 20 H Creatinine 1.16 Estim Creat Clear Calc 91.58 Est GFR (MDRD) Non-Af 74 BUN/Creatinine Ratio 17.2 Glucose 126 H Calcium 9.6 Urine Color Yellow Urine Clarity Clear Urine pH 6.0 Ur Specific [place] 1.015 Urine Protein 30 H Urine Glucose (UA) Normal Urine Ketones Negative Urine Occult Blood 150 H Urine Nitrite Negative Urine Bilirubin Negative Urine Urobilinogen Normal Ur Leukocyte Esterase Negative Basic metabolic panel is unremarkable. Glucose is 126. CO2 anion gap is normal. Renal function is normal. Radiography Diagnostic Testing: Clinical Impression(s) from Imaging Studies Abdomen/Pelvis CT 06/28/24 14:35 IMPRESSION: 1. 3 mm calculus of the right UVJ resulting in mild hydroureteronephrosis. 2. Small esophageal hiatal hernia. 3. Hepatomegaly with fatty infiltration. 4. Punctate left nephrolithiasis without hydronephrosis. 5. Umbilical hernia containing fat. 6. Colonic diverticulosis without acute diverticulitis. Reading Location: [facility] CT of the abdomen and pelvis without contrast reveals bilateral renal calculi. There is a distal stone right UVJ about to enter the bladder. There are significant mount of phleboliths as well. There is evidence of hydronephrosis and hydroureter on the right. Awaiting formal read by radiologist. In my opinion there is no evidence of a aortic dissection or aneurysm. Treatment and Re-Evaluation :: Patient was reassessed at 1452. He still in obvious discomfort. Will order additional dose of morphine. His blood pressure has improved to 207 systolic. Patient did become pain-free. He passed a stone. Shortly afterwards he developed severe pain. He again has pain in the right flank. Additional morphine was ordered. Will reassess. Comments:: Patient was reassessed at 1639. He is no longer in pain. Plan is to discharge home on opiate analgesic and NSAID since he has no contraindication. His urologist is through the [facility]. Discharge Plan Triage Chief Complaint: Flank Pain ED Provider: Maxim De León Dx/Rx/DC Orders Clinical Impression: Hydronephrosis with urinary obstruction due to ureteral calculus, Tobacco use, Hypertension, Bilateral kidney stones Instructions: ED Kidney Stone with Pain Prescriptions: New oxycodone-acetaminophen 5-325 mg tablet 1 tab PO Q6H PRN PRN (Reason: Pain) 3 Days Qty: 12 0RF naproxen 500 mg tablet 500 mg PO BID Qty: 14 0RF No Action amoxicillin-pot clavulanate 875-125 mg tablet 1 tab PO Q8H Qty: 30 0RF ondansetron 4 mg tablet,disintegrating 4 mg PO Q8H PRN PRN (Reason: Nausea) Qty: 10 0RF cyclobenzaprine [cyclobenzaprine] 10 mg tablet 10 mg PO TID PRN (Reason: Muscle Spasm) Qty: 20 0RF hydrocodone-acetaminophen [hydrocodone-acetaminophen] 5-325 mg tablet 1 tab PO Q4H PRN PRN (Reason: Pain) 2 Days Qty: 10 0RF labetalol 200 mg tablet 300 mg PO BID Patient Comments: TAKE 1 & 1/2 (ONE AND ONE-HALF) TABLETS BY MOUTH TWICE DAILY hydralazine 50 mg tablet 50 mg PO TID Patient Comments: TAKE 1 TABLET BY MOUTH THREE TIMES DAILY finasteride 5 mg tablet 5 mg PO DAILY Patient Comments: Take 1 tablet by mouth once daily. chlorthalidone 25 mg tablet 25 mg PO DAILY Patient Comments: Take 1 tablet by mouth once daily. amlodipine 10 mg tablet 10 mg PO DAILY Patient Comments: Take 1 tablet by mouth once daily. lisinopril 10 mg tablet 40 mg PO BID doxycycline hyclate 100 mg capsule 100 mg PO BID Qty: 20 0RF hydrocodone-acetaminophen 5-325 mg tablet 1 tab PO Q6H PRN (Reason: pain) 3 Days Qty: 12 0RF Primary Care Provider: Jossy Natarajan NP Referrals: Jossy Natarajan NP, [employer] [Primary Care Provider] - Activity Restrictions/Additional Instructions: Follow-up with your urologist as needed. Take medication as prescribed. Follow-up with your provider for blood pressure check in 1 to 2 weeks. Print Language: Ukrainian Disposition Disposition: Home, Self Care
[2024-06-28] MEDS: Ondansetron 4 MG/2 ML Vial IV (14:23)
[2024-06-28] MEDS: Morphine 4 MG/ML Syringe IV (14:23)
[2024-06-28] MEDS: Ketorolac 15 MG/ML Vial IV (14:23)
--- NOTE | 2024-06-28 14:35 | CT_ITS ---
EXAM: CT Abdomen and Pelvis Without Intravenous Contrast CLINICAL INDICATION: KIDNEY STONE TECHNIQUE: Axial computed tomography images of the abdomen and pelvis without intravenous contrast. This CT exam was performed using one or more of the following dose reduction techniques: automated exposure control, adjustment of the mA and/or kV according to patient size, and/or use of iterative reconstruction technique. COMPARISON: No relevant prior studies available. FINDINGS: LUNG BASES: Unremarkable. No mass. No consolidation. MEDIASTINUM: Small esophageal hiatal hernia. ABDOMEN: LIVER: Hepatomegaly with fatty infiltration. GALLBLADDER AND BILE DUCTS: Unremarkable. No calcified stones. No ductal dilation. PANCREAS: Unremarkable. No ductal dilation. SPLEEN: Unremarkable. No splenomegaly. ADRENALS: Unremarkable. No mass. KIDNEYS AND URETERS: 3 mm calculus of the right UVJ resulting in mild hydroureteronephrosis. Punctate left nephrolithiasis without hydronephrosis. STOMACH AND BOWEL: Colonic diverticulosis without acute diverticulitis. No obstruction. PELVIS: APPENDIX: No findings to suggest acute appendicitis. BLADDER: Unremarkable. No stones. REPRODUCTIVE: Unremarkable as visualized. ABDOMEN and PELVIS: INTRAPERITONEAL SPACE: Unremarkable. No free air. No significant fluid collection. BONES/JOINTS: No acute fracture. No dislocation. SOFT TISSUES: Umbilical hernia containing fat. VASCULATURE: Unremarkable. No abdominal aortic aneurysm. LYMPH NODES: Unremarkable. No enlarged lymph nodes. CT/Abdomen/Pelvis without Cont IMPRESSION: 1. 3 mm calculus of the right UVJ resulting in mild hydroureteronephrosis. 2. Small esophageal hiatal hernia. 3. Hepatomegaly with fatty infiltration. 4. Punctate left nephrolithiasis without hydronephrosis. 5. Umbilical hernia containing fat. 6. Colonic diverticulosis without acute diverticulitis. Reading Location: [facility]
[2024-06-28 14:37] LABS: Absolute Lymphocyte Count 2.36 X10^3/uL (0.83-4.51); Absolute Neutrophil Count 6.3 X10^3/uL (2.0-7.7); Basophil# 0.09 X10^3/uL; Basophil% 0.9 % (0-1); Eosinophil# 0.28 X10^3/uL; Eosinophils% 2.9 % (0-5); Hemoglobin 14.4 g/dL (13.0-16.5); Lymphocyte # 2.36 X10^3/ul (0.83-4.51); Lymphocyte % 24.2 % (19-41); Mean Corp Hgb Conc 34.3 g/dL (32-36); Mean Corpuscular Hgb 29.6 pg (27.0-32.0); Mean Corpuscular Volume 86.4 fL (80-94); Mean Platelet Vol. 10.2 fl (6.2-12.0); Monocyte# 0.65 X10^3/uL; Monocyte% 6.7 % (0-10); NRBC Flagged by Analyzer 0 % (0-5); Neutrophil # 6.32 X10^3/uL (2.7-7.7); Neutrophil % 64.9 % (47-70); Platelet Count 315 K/mm3 (150-450); RBC Distribution Width CV 13.5 % (11.6-14.6); RBC Distribution Width SD 42.5 fl (35.1-43.9); Red Blood Count 4.86 M/mm3 (4.6-6.2); White Blood Count 9.7 K/mm3 (4.4-11.0)
[2024-06-28 14:48] LABS: Anion Gap 11 (5-15); BUN 20 mg/dL (4-19); BUN/Creat Ratio 17.2 RATIO (10-20); Calcium,Total 9.6 mg/dL (7.6-11.0); Carbon Dioxide 24.2 mmol/L (21.0-32.0); Chloride 104 mmol/L (98-108); Creatinine, Serum 1.16 mg/dL (0.70-1.20); EST Glomerular Filtration Rate 74 (>60); Estimated Creatinine Clearance 91.58 ml/min (50-250); Glucose 126 mg/dL (70-99); Potassium 4.4 mmol/L (3.3-5.1); Sodium Level 140 mmol/L (133-145)
[2024-06-28] MEDS: morphine 8 MG/ML Syringe 6 MG IV (15:08)
[2024-06-28 15:33] LABS: Color, Urine Yellow (Yellow); Glucose, Dipstick Normal (Normal); Ketone-Dipstick Negative (Negative); Leukocyte Esterase-Dipstick Negative /ul (Negative); Nitrite-Dipstick Negative (Negative); Occult Blood-Urine 150 /ul (Negative); Protein-Dipstick 30 mg/dl (Negative); Specific Gravity, Urine 1.015 (1.002-1.030); Urine Bilirubin Dipstick Negative (Negative); Urine Clarity Clear (Clear); Urine Urobilinogen Normal (Normal)
[2024-06-28] MEDS: morphine 10 MG/ML Syringe 6 MG IV (16:11)
[2024-06-28 16:14] VITALS: BP 210/99; PULSE 73; RESP 18; O2SAT 95
[2024-06-28 16:58] VITALS: BP 189/98; PULSE 78; RESP 16; TEMP 36.6; O2SAT 99
[2024-06-28 17:24] LABS: Red Blood Cells-Urine 5-10 SEEN /hpf (0-5); White Blood Cells 0-5 SEEN /hpf (0-5)
[2024-06-28 17:25] LABS: Bacteria RARE /hpf (None Seen); Mucous, Urine 1+ /hpf (<or=2+); Squamous Epithelial Cells - UA 0-5 SEEN /hpf (0-5)
== END 2024-06-28 16:59 | disposition home or self-care (01) ==
PROVIDERS: Emergency Provider Emergency Medicine; PCP Nurse Practitioner Family; Visit Provider Emergency Medicine
DX: N13.2 Hydronephrosis with renal and ureteral calculous obstruction (principal); I10 Essential (primary) hypertension; F17.210 Nicotine dependence, cigarettes, uncomplicated; F41.9 Anxiety disorder, unspecified; F32.A Depression, unspecified
CPT/HCPCS: 74176; 80048; 81001; 85025; 96374; 96375; 96376; 99283; A4216; J2405

== ENCOUNTER 2024-09-12 13:57 | Emergency (ER) | payer SELFPAY ==
[2024-09-12 13:57] VITALS: BP 221/127; PULSE 81; RESP 20; TEMP 35.8; O2SAT 98; BMI 34.9
--- NOTE | 2024-09-12 15:28 | ED.VIS.GI ---
HPI HPI - GI History of Present Illness Chief Complaint: GI Bleed Narrative Narrative: 54-year-old male past medical history of hypertension, does not take blood thinners, presents with rectal bleeding that has had for the last 2 to 3 days. He states his symptoms started a few days ago. 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 It is continued over the last few days. He states that yesterday he was seen at [facility] emergency department where they wanted to transfer him to [facility] for inpatient colonoscopy. He states he had a CT of the abdomen and pelvis which did not show anything acute, and when the physician performed rectal examination/anoscopy, although he had a hemorrhoid, there was bleeding from higher up on the scope. He states he is continuing to have rectal bleeding that is wetting his undergarment, and was on the chair when he was signing in. He also has it with bowel movements. He states he feels lightheaded as well. He denies any chest pain or shortness of breath. Denies other bleeding diathesis. [facility] Medical History Diverticulitis Hypertension Anxiety and depression Osteoarthritis Nephrolithiasis Home Medications ?Medication ?Instructions ?Recorded ?Last Taken ?Type amoxicillin 875 mg-potassium 1 tab PO Q8H #30 tabs 06/26/21 Unknown Rx clavulanate 125 mg tablet Held on 12/24/22. Instructions: Pt has been DC'd ondansetron 4 mg disintegrating 4 mg PO Q8H PRN PRN Nausea #10 tabs 06/26/21 Unknown Rx tablet cyclobenzaprine 10 mg tablet 10 mg PO TID PRN Muscle Spasm #20 10/22/22 Unknown Rx Held on 12/24/22. TABLETS Instructions: Pt has been DC'd hydrocodone-acetaminophen 5-325mg 1 tab PO Q4H PRN PRN Pain 2 days 10/22/22 Unknown Rx 5mg-325mg #10 TABLETS Held on 12/24/22. Instructions: Pt has been DC'd amlodipine 10 mg tablet 10 mg PO DAILY 12/24/22 Unknown History chlorthalidone 25 mg tablet 25 mg PO DAILY 12/24/22 Unknown History doxycycline hyclate 100 mg capsule 100 mg PO BID #20 caps 12/24/22 Unknown Rx finasteride 5 mg tablet 5 mg PO DAILY 12/24/22 Unknown History hydralazine 50 mg tablet 50 mg PO TID 12/24/22 Unknown History labetalol 200 mg tablet 300 mg PO BID 12/24/22 Unknown History lisinopril 10 mg tablet 40 mg PO BID 12/24/22 Unknown History hydrocodone-acetaminophen 5-325mg 1 tab PO Q6H PRN pain 3 days #12 04/10/23 Unknown Rx 5mg-325mg tabs naproxen 500 mg tablet 500 mg PO BID #14 tabs 06/28/24 Unknown Rx oxycodone-acetaminophen 5 mg-325 1 tab PO Q6H PRN PRN Pain 3 days 06/28/24 Unknown Rx mg tablet #12 TABLETS Allergy/AdvReac Type Severity Reaction Status Date / Time No Known Allergies Allergy Verified 06/28/24 13:45 Surgical History History of nasal surgery Hx of arthroscopic knee surgery History of repair of ACL Hx of total knee replacement Social History household members: spouse Smoking Status: Heavy Smoker (>10/day) ROS ROS ED ROS Narrative Review of systems positive for rectal bleeding and lightheadedness, no chest pain or shortness of breath, developed abdominal pain over the last 24 hours. No nausea or vomiting. No other bleeding. EXAM Physical Exam Narrative Exam Narrative: Afebrile. Vital signs noted. Nontoxic-appearing. Cardiovascular examination reveals a regular rate and rhythm. Lungs are clear to auscultation bilaterally. Abdomen is soft and minimally tender diffusely with positive bowel sounds. Neurological examination nonfocal nonlateralizing. No central cyanosis. No noted pallor of skin. Const Vital Signs: 09/12/24 13:57 09/12/24 16:20 09/12/24 16:44 Temperature 96.4 F L Temperature Source Temporal Pulse Rate 81 70 Pulse Rate [Lying] 71 Pulse Rate [Sitting (for 1 minute prior to obtaining)] 77 Pulse Rate [Standing (for 1 minute prior to obtaining)] 79 Respiratory Rate 20 H 16 Blood Pressure 221/127 H 184/154 H Blood Pressure [Lying] 189/97 H Blood Pressure [Sitting (for 1 minute prior to obtaining)] 194/108 H Blood Pressure [Standing (for 1 minute prior to obtaining)] 169/99 H Blood Pressure Mean 158 164 Blood Pressure Mean [Lying] 127 Blood Pressure Mean [Sitting (for 1 minute prior to obtaining)] 136 Blood Pressure Mean [Standing (for 1 minute prior to obtaining)] 122 Pulse Ox 98 95 Oxygen Delivery Method Room Air Room Air MDM MDM MDM Narrative Medical decision making narrative: Differential diagnosis includes but not limited to hemorrhoidal bleed versus AV malformation versus diverticular bleed. I reviewed his prior problem list and he has history of diverticulitis. He has elevated blood pressure currently of 221/127. He will be administered hydralazine. I will repeat his laboratory work and perform anoscopy. I reviewed his CTA from yesterday through [facility]. There was no CTA evidence of active GI bleed, he had sigmoid diverticulosis without acute diverticulitis. Additionally, although he had slightly elevated white count of 11,000, his hemoglobin was normal. I did review his WBC count from today and it was 11.2 with hemoglobin normal at 14.9. Chaperoned rectal examination on visual inspection shows no evidence of acute bleeding. He was not symptomatic with his orthostatics, and I feel that any drop in his blood pressure could be attributed to the hydralazine he was given. I discussed patient with Dr. Esparza with gastroenterology. He states that the patient can either be admitted and bowel prep for scoping tomorrow versus following up as an outpatient early next week. Through shared decision making, patient prefers discharge and outpatient follow-up. Return instructions to the emergency department were reviewed. I feel his GI bleeding is stable, and that he does not need to sign out AGAINST MEDICAL ADVICE as he has done this yesterday. Review of his BMP shows normal BUN of 14 and creatinine 1.20 so I doubt upper GI bleeding. At this point in time, through shared decision making, patient prefers outpatient follow-up with gastroenterology. I feel his lower GI bleeding is stable and is improving. I did offer to write him for Anusol HC suppositories should this be more of an internal hemorrhoidal bleeding but he declined stating he would not use them. Return instructions to the emergency department were reviewed. Disposition is discharged home in stable condition. History & Record Review Discussion w/independent historian: Patient Additional record(s) reviewed:: Prior outpatient record and Prior ED visit Lab Data Attestation: I reviewed the patient's lab results. Labs: Laboratory Results - last 24 hr 09/12/24 15:40 WBC 11.2 H RBC 4.90 Hgb 14.9 Hct 42.9 MCV 87.6 MCH 30.4 MCHC 34.7 RDW Std Deviation 41.7 RDW Coeff of Shin 13.0 Plt Count 290 MPV 10.2 Immature Gran % (Auto) 0.400 Neut % (Auto) 72.2 H Lymph % (Auto) 16.5 L [place] % (Auto) 7.2 Eos % (Auto) 2.8 Baso % (Auto) 0.9 Absolute Neuts (auto) 8.1 H Absolute Lymphs (auto) 1.84 Nucleated RBC % 0 Sodium 139 Potassium 4.7 Chloride 102 Carbon Dioxide 23.5 Anion Gap 13 BUN 14 Creatinine 1.20 Estim Creat Clear Calc 85.55 Est GFR (MDRD) Non-Af 71 BUN/Creatinine Ratio 11.9 Glucose 101 H Calcium 9.7 Management Discussion w/another healthcare provider: Kaiawhina Kohanga Reo (Dr. Esparza, gastroenterology) Discharge Plan Triage Chief Complaint: GI Bleed ED Provider: Felton Torres Dx/Rx/DC Orders Clinical Impression: Hypertension, Rectal bleeding Instructions: ED High Blood Pressure Hypertension, ED Lower GI Bleeding (Stable) Prescriptions: No Action amoxicillin-pot clavulanate 875-125 mg tablet 1 tab PO Q8H Qty: 30 0RF ondansetron 4 mg tablet,disintegrating 4 mg PO Q8H PRN PRN (Reason: Nausea) Qty: 10 0RF cyclobenzaprine [cyclobenzaprine] 10 mg tablet 10 mg PO TID PRN (Reason: Muscle Spasm) Qty: 20 0RF hydrocodone-acetaminophen [hydrocodone-acetaminophen] 5-325 mg tablet 1 tab PO Q4H PRN PRN (Reason: Pain) 2 Days Qty: 10 0RF labetalol 200 mg tablet 300 mg PO BID Patient Comments: TAKE 1 & 1/2 (ONE AND ONE-HALF) TABLETS BY MOUTH TWICE DAILY hydralazine 50 mg tablet 50 mg PO TID Patient Comments: TAKE 1 TABLET BY MOUTH THREE TIMES DAILY finasteride 5 mg tablet 5 mg PO DAILY Patient Comments: Take 1 tablet by mouth once daily. chlorthalidone 25 mg tablet 25 mg PO DAILY Patient Comments: Take 1 tablet by mouth once daily. amlodipine 10 mg tablet 10 mg PO DAILY Patient Comments: Take 1 tablet by mouth once daily. lisinopril 10 mg tablet 40 mg PO BID doxycycline hyclate 100 mg capsule 100 mg PO BID Qty: 20 0RF hydrocodone-acetaminophen 5-325 mg tablet 1 tab PO Q6H PRN (Reason: pain) 3 Days Qty: 12 0RF oxycodone-acetaminophen 5-325 mg tablet 1 tab PO Q6H PRN PRN (Reason: Pain) 3 Days Qty: 12 0RF naproxen 500 mg tablet 500 mg PO BID Qty: 14 0RF Primary Care Provider: Jossy Natarajan NP Referrals: Darrell Esparza DO [Med Staff - Active Staff] - 3-5 Days Jossy Natarajan NP, [employer] [Primary Care Provider] - Activity Restrictions/Additional Instructions: Your blood count is stable. Follow-up with Dr. Esparza with gastroenterology within the next few days. Call for an appointment tomorrow. Return to the emergency department with increased rectal bleeding, new or worsening symptoms. Print Language: Malawian Disposition Disposition: Home, Self Care
[2024-09-12 16:05] LABS: Absolute Lymphocyte Count 1.84 X10^3/uL (0.83-4.51); Absolute Neutrophil Count 8.1 X10^3/uL (2.0-7.7); Basophil% 0.9 % (0-1); Eosinophil# 0.31 X10^3/uL; Eosinophils% 2.8 % (0-5); Hematocrit 42.9 % (40-54); Hemoglobin 14.9 g/dL (13.0-16.5); Lymphocyte # 1.84 X10^3/ul (0.83-4.51); Lymphocyte % 16.5 % (19-41); Mean Corp Hgb Conc 34.7 g/dL (32-36); Mean Corpuscular Hgb 30.4 pg (27.0-32.0); Mean Corpuscular Volume 87.6 fL (80-94); Mean Platelet Vol. 10.2 fl (6.2-12.0); Monocyte% 7.2 % (0-10); NRBC Flagged by Analyzer 0 % (0-5); Neutrophil # 8.06 X10^3/uL (2.7-7.7); Neutrophil % 72.2 % (47-70); Platelet Count 290 K/mm3 (150-450); RBC Distribution Width SD 41.7 fl (35.1-43.9); White Blood Count 11.2 K/mm3 (4.4-11.0)
[2024-09-12] MEDS: Morphine 4 MG/ML Syringe IV (16:14)
[2024-09-12] MEDS: hydrALAZINE 20 MG/ML Vial IV (16:15)
[2024-09-12 16:20] VITALS: BP 184/154; PULSE 70; RESP 16; O2SAT 95
[2024-09-12 16:39] LABS: Anion Gap 13 (5-15); BUN 14 mg/dL (4-19); BUN/Creat Ratio 11.9 RATIO (10-20); Calcium,Total 9.7 mg/dL (7.6-11.0); Carbon Dioxide 23.5 mmol/L (21.0-32.0); Chloride 102 mmol/L (98-108); EST Glomerular Filtration Rate 71 (>60); Estimated Creatinine Clearance 85.55 ml/min (50-250); Glucose 101 mg/dL (70-99); Potassium 4.7 mmol/L (3.3-5.1); Sodium Level 139 mmol/L (133-145)
[2024-09-12 16:44] VITALS: BP 169/99; BP 189/97; BP 194/108; PULSE 71; PULSE 77; PULSE 79
[2024-09-12 17:35] VITALS: BP 192/88; PULSE 81; RESP 16; TEMP 36.6; O2SAT 97
== END 2024-09-12 17:37 | disposition home or self-care (01) ==
PROVIDERS: Emergency Provider Emergency Medicine; PCP Nurse Practitioner Family; Referring Provider Emergency Medicine; Visit Provider Emergency Medicine
DX: K62.5 Hemorrhage of anus and rectum (principal); F17.200 Nicotine dependence, unspecified, uncomplicated; I10 Essential (primary) hypertension; Z87.19 Personal history of other diseases of the digestive system
CPT/HCPCS: 80048; 85025; 96374; 96375; 99285

== ENCOUNTER 2025-01-07 15:43 | Inpatient (IN) | payer SELFPAY ==
[2025-01-07] VITALS (30 sets, daily range): BP systolic 108–260; BP diastolic 60–148; PULSE 60–93; RESP 14–20; TEMP 35.5–36.6; O2SAT 95–100; BMI 37.0; BMI 37.5
--- NOTE | 2025-01-07 16:29 | EKG12_ITS ---
Test Reason : GENERAL Blood Pressure : */* mmHG Vent. Rate : 77 BPM Atrial Rate : 77 BPM P-R Int : 244 ms QRS Dur : 88 ms QT Int : 360 ms P-R-T Axes : 11 -34 29 degrees QTcB Int : 407 ms Sinus rhythm with 1st degree A-V block Left axis deviation Cannot rule out Septal infarct (cited on or before 18-Aug-2022) Abnormal ECG Confirmed by Madhu Barry ([id number]), photo editor JASVIR PRETTY ([id number]) on 01/08/2025 1:44:59 PM Referred By: Confirmed By: Madhu Barry
--- NOTE | 2025-01-07 16:30 | EX.ED.DYSGE1 ---
HPI History of Present Illness Chief Complaint: Lower Extremity Injury Detail of Chief Complaint: Left knee pain and hypertension Informant: patient Narrative Narrative: Patient presents to the emergency department with complaint of left knee pain for about a week. 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 He had a total knee replacement in September 2023 to the left knee. He is also had the right knee replaced. He has been doing relatively well with minimal exacerbations of his RSD until a week ago. He denies injury. He said no fever chills or sweats. 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 He does take labetalol at home which he has been taken daily. He complains of a headache which is typical when his blood pressure goes up. Patient states that his blood pressure at home's been in the range of 218/108. Denies chest pain or shortness of breath. [facility] Medical History Diverticulitis Hypertension Anxiety and depression Osteoarthritis Nephrolithiasis Home Medications Medication Instructions Recorded Last Taken Type labetalol 200 mg tablet 400 mg PO BID 12/24/22 Unknown History telmisartan 80 mg tablet 80 mg PO QHS 01/07/25 Unknown History Allergy/AdvReac Type Severity Reaction Status Date / Time No Known Allergies Allergy Verified 01/07/25 15:48 Surgical History History of nasal surgery Hx of arthroscopic knee surgery History of repair of ACL Hx of total knee replacement Social History household members: spouse Smoking Status: Heavy Smoker (>10/day) ROS ROS ED Review of Systems ROS Unobtainable: other Constitutional Constitutional ED: Reports lethargy; Denies chills, fever(s), sweats or weight loss Eyes Eyes: Denies blurry vision, change in vision or diplopia ENT ENT ED: Denies rhinorrhea or sore throat Cardiovascular Cardiovascular: Denies chest pain, orthopnea or racing heartbeat Respiratory/Chest Respiratory/Chest: Denies cough, dyspnea, dyspnea on exertion, orthopnea or sputum Gastrointestinal Gastrointestinal: Denies abdominal pain, diarrhea, nausea or vomiting Genitourinary Genitourinary ED: Denies dysuria, hematuria or urinary frequency Musculoskeletal Musculoskeletal: Reports other Details: Left knee pain ; Denies arthralgias, back pain, myalgias or neck pain Integumentary Denies abscess, Abrasions or rash Neurologic Neurologic: Reports headache(s); Denies weakness Psychiatric Psychiatric: Denies anxiety, depression or suicidal thoughts Endocrine Endocrinology: Denies polydipsia, polyphagia or polyuria Hematologic/Lymphatic Hematologic/Lymphatic: Denies easy bleeding, easy bruising or lymphadenopathy Allergic/Immunologic Allergic/Immunologic ED: Denies mouth swelling, tongue swelling or urticaria EXAM Physical Exam Const Vital Signs: 01/07/25 15:48 01/07/25 16:06 01/07/25 16:45 Temperature 96 F L Temperature Source Temporal Pulse Rate 93 74 Respiratory Rate 18 15 Respiratory Effort Normal Non-Labored Respiratory Pattern Normal Blood Pressure 222/142 H 165/126 H Blood Pressure Mean 168 139 Pulse Ox 98 98 Oxygen Delivery Method Room Air Room Air 01/07/25 17:45 01/07/25 17:50 01/07/25 17:57 Temperature 97.8 F Temperature Source Pulse Rate 76 74 Respiratory Rate 16 Respiratory Effort Respiratory Pattern Blood Pressure 260/130 H 150/120 H 249/135 H Blood Pressure Mean 173 130 173 Pulse Ox 99 Oxygen Delivery Method Positive well nourished and well developed General Appearance ED: well developed and NAD HEENT Reports TM's clear and moist mucous membranes normocephalic and atraumatic; Negative for trauma or tenderness Tympanic Membrane ED: Yes TM's clear Eyes PERRL and EOMs intact bilaterally General Eye ED: Negative for pale conjunctiva or scleral icterus Neck no lymphadenopathy, supple and no JVD General: Negative for tenderness Chest Wall inspection of chest normal and palpation of chest normal Chest: Negative for tenderness Resp normal respiratory effort and clear to auscultation bilaterally Effort and Inspection: Negative for respiratory distress or pain with movement Auscultation: Negative for rhonchi, wheezes or diminished lung sounds Cardio regular rate, regular rhythm, S1 normal heart sound, S2 normal heart sound and no murmurs Peripheral Pulses: pulses 2+ throughout GI normal to inspection, nondistended, normoactive bowel sounds, soft to palpation, non-tender, non-distended and no masses Back/Spine no CVA tenderness and no thoracic nor lumbar tenderness Extremity Extremity Narrative: Left knee-no erythema or warmth. No effusion. Pain with range of motion. Neurovascular intact distally. No ropes or cords palpated. No edema. General Extremety ED: Negative for edema General Extremity: Negative for edema Neuro oriented x3, CN's II-XII intact bilaterally, no sensory deficits noted and gait normal Sensorium / Orientation: awake, alert, oriented to person, oriented to place and oriented to time Motor Exam: strength 5/5 throughout and strength abnormal Psych mental status grossly normal Skin no rashes or lesions noted and no wounds MDM MDM MDM Narrative Medical decision making narrative: Patient presents with pain in his left knee and hypertension. Has history of RSD to the left knee. EKG obtained arrival shows sinus rhythm with rate of 77 bpm with old septal infarct. CBC with differential showed a white count 9.3 with hemoglobin 14 and platelet count of 289. Chemistries unremarkable. Troponin normal at 16. He was medicated with Dilaudid 1 mg IV. Blood pressure really did not improve with treatment of his pain and he continues to have pain. He was given another milligram of Dilaudid and was given labetalol 20 mg IV. Systolic blood pressure continues to be in the 260s and diastolic in the 130s. Will start him on a nitro drip. Will discuss with hospitalist to evaluate for admission Lab Data Attestation: I reviewed the patient's lab results. Labs: Laboratory Results - last 24 hr 01/07/25 14:53 WBC 9.3 RBC 4.67 Hgb 14.1 Hct 41.0 MCV 87.8 MCH 30.2 MCHC 34.4 RDW Std Deviation 42.3 RDW Coeff of Shin 13.2 Plt Count 289 MPV 10.2 Immature Gran % (Auto) 0.600 Neut % (Auto) 60.5 Lymph % (Auto) 24.4 Delta % (Auto) 9.4 Eos % (Auto) 4.0 Baso % (Auto) 1.1 H Absolute Neuts (auto) 5.6 Absolute Lymphs (auto) 2.26 Nucleated RBC % 0 Sodium 140 Potassium 4.1 Chloride 104 Carbon Dioxide 23.9 Anion Gap 12 BUN 22 H Creatinine 1.10 Estim Creat Clear Calc 96.16 Est GFR (MDRD) Non-Af 79 BUN/Creatinine Ratio 20.1 H Glucose 98 Calcium 9.7 Troponin T High Sens 16 EKG Initial EKG: Attestation: I personally reviewed and interpreted this EKG as follows: Comments: Sinus rhythm with ventricular rate of 77 bpm with old septal infarct Critical Care Time Critical care time (excluding procedures): Including time spent:, Discussing w/Patient &/or Family/Transport Aide, Discussing w/Consultants, Arranging Admission or Transfer, Performing Direct Patient Care at Bedside and - (20 minutes) Discharge Plan Dx/Rx/DC Orders Clinical Impression: Hypertensive emergency, Knee pain, left Disposition Disposition: Acute Care Hospital [facility]
[2025-01-07 17:09] LABS: Hematocrit 41.0 % (40-54); Hemoglobin 14.1 g/dL (13.0-16.5); Immature Granulocytes Count 0.060 X10^3/uL (0.0-0.0); Mean Corp Hgb Conc 34.4 g/dL (32-36); Mean Corpuscular Volume 87.8 fL (80-94); Mean Platelet Vol. 10.2 fl (6.2-12.0); NRBC Flagged by Analyzer 0 % (0-5); Platelet Count 289 K/mm3 (150-450); RBC Distribution Width CV 13.2 % (11.6-14.6); RBC Distribution Width SD 42.3 fl (35.1-43.9); Red Blood Count 4.67 M/mm3 (4.6-6.2); White Blood Count 9.3 K/mm3 (4.4-11.0)
[2025-01-07 17:34] LABS: Anion Gap 12 (5-15); BUN 22 mg/dL (4-19); BUN/Creat Ratio 20.1 RATIO (10-20); Calcium,Total 9.7 mg/dL (7.6-11.0); Carbon Dioxide 23.9 mmol/L (21.0-32.0); Chloride 104 mmol/L (98-108); Estimated Creatinine Clearance 96.16 ml/min (50-250); Glucose 98 mg/dL (70-99); Potassium 4.1 mmol/L (3.3-5.1); Troponin T High Sensitivity 16 ng/L (<=22)
[2025-01-07] MEDS: Nitroprusside 50 MG in Dextrose 5%-Water (250mL Bag) 248 ML 10.5 MG CONT INF (18:37)
[2025-01-07 18:38] LABS: Troponin T High Sens 2 HR 53 ng/L (<=22)
--- NOTE | 2025-01-07 18:49 | PCM.HP.STD ---
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 In the ED temp 96 with a heart rate of 93, blood pressure 222/142, respiratory 18 and pulse ox 98% on room air. CBC with white count within normal limits and hemoglobin of 14, BMP with a BUN of 22 and a creatinine 1.11 and troponin of 16. He was given Dilaudid for his knee pain with continued elevated blood pressures and subsequently given 20 of IV labetalol but on recheck systolic blood pressure still in the 200s and patient with headache so he was started on nitroprusside drip and hospitalist contacted for admission. Evaluated patient at bedside. He reports he has had problems with a chronic pain syndrome RSD going back to the early and he knows that this is what is going on with his left knee, denies any trauma to the knee. He said usually symptoms resolve in a couple of days with pain medication however symptoms have been persistent for a week prompting him to come in for evaluation and pain control. He also noted that for the past couple days he has been having headaches that are frontal in nature and pressure-like and his systolic blood pressures have been running in the 200s with an average around 211 systolic. He reports his blood pressures usually around 180 systolic at baseline he is following with a professor sculpture for this. He had been on multiple medications but most recently was switched to labetalol and telmisartan, he was taken off of lisinopril, chlorthalidone, amlodipine due to concerns for ED. he has a follow-up appointment in about a month. At present no chest pain, no changes in vision, reports he has some chronic shortness of breath and not particularly changed at this time. In regards to his left knee pain he denies any erythema or warmth, reports nothing out of the ordinary for one of his pain flares. Does have a spinal stimulator that has not worked in multiple years but is still in place. No other new acute complaints. [facility] Medical History Diverticulitis Hypertension Anxiety and depression Osteoarthritis Nephrolithiasis Home Medications Medication Instructions Recorded Last Taken Type labetalol 200 mg tablet 400 mg PO BID 12/24/22 Unknown History telmisartan 80 mg tablet 80 mg PO QHS 01/07/25 Unknown History Allergy/AdvReac Type Severity Reaction Status Date / Time No Known Allergies Allergy Verified 01/07/25 15:48 Surgical History History of nasal surgery Hx of arthroscopic knee surgery History of repair of ACL Hx of total knee replacement Social History household members: spouse Smoking Status: Heavy Smoker (>10/day) ROS ROS Narrative General: Denies fever/chills HENT: Headache, denies stuffy nose, denies sore throat EYES: Denies changes in vision Resp: Denies cough, denies shortness of breath Cardiac: Denies chest pain GI: Denies abdominal pain, denies changes in bowel, denies nausea/vomiting : Denies changes in urination Extremity: Left knee little bit more swollen compared to right which she reports is part of the syndrome MSK: No weakness, left knee pain Neuro: Denies any numbness/tingling Heme: Denies any bleeding or bruising Skin: Denies rashes Psychiatric: No complaints voiced Vital Signs Vital Signs Vital Signs: 01/07/25 15:48 01/07/25 16:06 01/07/25 16:45 Temperature 96 F L Temperature Source Temporal Pulse Rate 93 74 Respiratory Rate 18 15 Respiratory Effort Normal Non-Labored Respiratory Pattern Normal Blood Pressure 222/142 H 165/126 H Blood Pressure Mean 168 139 Blood Pressure Source Blood Pressure Position Blood Pressure Location Pulse Ox 98 98 Oxygen Delivery Method Room Air Room Air 01/07/25 17:45 01/07/25 17:50 01/07/25 17:57 Temperature 97.8 F Temperature Source Pulse Rate 76 74 Respiratory Rate 16 Respiratory Effort Respiratory Pattern Blood Pressure 260/130 H 150/120 H 249/135 H Blood Pressure Mean 173 130 173 Blood Pressure Source Blood Pressure Position Blood Pressure Location Pulse Ox 99 Oxygen Delivery Method 01/07/25 18:37 Temperature Temperature Source Pulse Rate 70 Respiratory Rate Respiratory Effort Respiratory Pattern Blood Pressure 239/130 H Blood Pressure Mean 166 Blood Pressure Source Monitor Blood Pressure Position Semi-Fowlers Blood Pressure Location Right Arm Pulse Ox Oxygen Delivery Method Weight Weight: 117.163 kg Body Mass Index (BMI) 37.0 Physical Exam Narrative General: Alert, oriented, no apparent distress HEENT: Atraumatic, normocephalic Eyes: Anicteric, normal conjunctiva, extraocular movements grossly intact Neck: Supple Respiratory: Clear to auscultation bilaterally, normal respiratory effort Cardiovascular: Regular rate and rhythm GI: Nontender, no rebound, guarding, rigidity Extremities: No edema peripherally, little bit of swelling of left knee compared to right without any erythema or warmth, reports it is painful somewhat diffusely on palpation Musculoskeletal: Moving all extremities Neuro: No overt focal neurological deficits Skin: No rashes appreciated Psych: Cooperative Results Lab / Micro Data 01/07/25 14:53 01/07/25 14:53 Labs: Laboratory Results - last 24 hr 01/07/25 14:53: WBC 9.3, RBC 4.67, Hgb 14.1, Hct 41.0, MCV 87.8, MCH 30.2, MCHC 34.4, RDW Std Deviation 42.3, RDW Coeff of Shin 13.2, Plt Count 289, MPV 10.2, Immature Gran % (Auto) 0.600, Neut % (Auto) 60.5, Lymph % (Auto) 24.4, [place] % (Auto) 9.4, Eos % (Auto) 4.0, Baso % (Auto) 1.1 H, Absolute Neuts (auto) 5.6, Absolute Lymphs (auto) 2.26, Nucleated RBC % 0, Sodium 140, Potassium 4.1, Chloride 104, Carbon Dioxide 23.9, Anion Gap 12, BUN 22 H, Creatinine 1.10, Estim Creat Clear Calc 96.16, Est GFR (MDRD) Non-Af 79, BUN/Creatinine Ratio 20.1 H, Glucose 98, Calcium 9.7, Troponin T High Sens 16 01/07/25 18:10: Troponin T Hi Sens 2 Hr 53 H Assessment & Plan Assessment/Plan (1) Hypertensive emergency: PLAN: Plan #Hypertensive emergency -patient with systolic blood pressure in the 200s with headache -Additionally had troponin initially 16 with an increase to 53 though still denying chest pain - Patient to be admitted to the ICU on nitroprusside drip - Continue home medications - Treat pain as this is likely contributing to his hypertension -If patient remains hypertensive above his baseline which he reports is systolic 170s to 180s and will need to adjust home medications - May need further medication adjustments though patient was taken off of chlorthalidone, amlodipine, and lisinopril due to concerns for side effects - He reports he follows with professor sculpture on an outpatient basis and they are adjusting his medications - Will check TSH - Will check echocardiogram # Left knee pain - He reports a history of a chronic pain syndrome, RSD - Has noted problems with this since the early but has not had a flare recently - Usually flares go away after several days but this has been present for a week but still adamant that this is consistent with his previous flares and had no injury or any other acute concerns - PCP has previously tried to treat flares with prednisone with no improvement so we will avoid steroids - Will schedule Tylenol, as needed medications as well as topical arthritis cream #DVT ppx: Lovenox subcu Jihan Laguna MD Charges/Coding Visit Charges Inpatient E&M: 57017 Init Hosp L2
--- OUTSIDE RECORDS SUMMARY | 2025-01-07 18:49 | XMS RPT_ITS | CCD ---
Author Organization [facility] twelve hours as needed for nausea and nausea ondansetron (ZOFRAN) 4 mg tablet Indications: Nausea Take 1 tablet by mouth every 12 hours as needed for nausea/vomiting. 8 tablet 0 08/24/2022 12/14/2022 Discontinued (.All criteria met for discontinuation) Start: 06-26-2021 take 1 tablet by yue th every eight hours as needed for nausea Ondansetron 4 mg tablet,disintegrating Active 4 mg PO EVERY 8 HOURS NEEDED as needed for Nausea June 26, 2021 12:00am Comment on above: Take 1 tablet by yue th every 12 hours as needed for nausea/vomiting. perflutren lipid microspheres 1.3 mL in NaCl (PF) 0.9% 10 mL injection (DEFINITY) (20 sources) Start: 08-23-2022 End: 11-22-2023 perflutren lipid microspheres 1.3 mL in NaCl (PF) 0.9% 10 mL injection (DEFINITY) polyethylene glycol 3350 78239 mg powder for oral solution (20 sources) Osmotic Laxative Start: 09-19-2023 End: 10-03-2023 polyethylene glycol 3350 (MIRALAX) 17 gram/dose powder Take 17 g by mouth once daily as needed for constipation for up to 10 days. Dissolve dose in 4 - 8 ounces of liquid and take as directed. 238 g 09/19/2023 10/03/2023 Start: 12-02-2021 End: 12-16-2021 polyethylene glycol 3350 (MN RALAX) 17 gram/dose powder Take 17 g by mouth once daily as needed for constipation for up to 10 days. Dissolve dose in 4 - 8 ounces of liquid and take as directed. 238 g 0 12/02/2021 12/16/2021 Comment on above: Take 17 g by mouth o nce daily as needed for constipation for up to 10 days. Dissolve dose in 4 - 8 ounces of liquid and take as directed. regadenoson 0.4 mg injection (LEXISCAN) (2 sources) Start: 09-11-2023 End: 09-11-2023 regadenoson 0.4 mg injection (LEXISCAN) 125 ml sodium chloride 9 mg/ml prefilled syringe (20 sources) Start: 08-23-2022 End: 11-22-2023 sodium chloride 0.9 % (flush) 10 mL (BD POSIFLUSH) sulfamethoxazole 800 mg / trimethoprim 160 mg oral tablet (7 sources) Dihydrofolate Reductase Inhibitor Antibacterial, Sulfonamide Antimicrobial Start: 12-07-2019 End: 12-17-2019 Sulfamethoxazole-Trime thoprim 1 TABLET tablet Discontinued 2 {tbl} PO TWICE A DAY 40 December 07, 2019 12:00am December 16, 2019 12:00am December 17, 2019 12:02am Start: 12-07-2019 End: 12-17-2019 take 2 tablets by mouth twice daily Sulfamethoxazole-Trimethoprim Discontinu ed 2 TABLET PO TWICE A DAY 40 December 07, 2019 12:00am December 17, 2019 12:02am SUMAtriptan 25 mg oral tablet (20 sources) Serotonin-1b and Serotonin-1d Receptor Agonist Start: 08-19-2022 End: 12-14-2022 SUMAtriptan (IMITREX) 25 mg tablet Indications: Headache, unspecified headache type Take 1 tablet by mouth as needed for migraine headache (see administration instructions). 6 tablet 0 08/19/2022 12/14/2022 Discontinued (.All criteria met for discontinuation) Comment on above: Take 1 tablet by yue th as needed for migraine headache (see administration instructions). tamsulosin hydrochloride 0.4 mg oral capsule (20 sources) alpha-Adrenergic Alma Start: 08-23-2022 End: 12-29-2022 take 1 capsule by mouth once daily at bedtime tamsulosin (FLOMAX) 0.4 mg Indications: Nephrolithiasis Take 1 capsule by mouth daily at bedtime. 30 capsule 3 11/14/2022 12/29/2022 Discontinued (Course of therapy completed) Comment on above: Take 1 capsule by mo [facility] daily at bedtime. 1 ml triamcinolone acetonide 40 mg/ml injection (1 source) Corticosteroid Start: 05-17-2023 End: 05-17-2023 triamcinolone acetonide 80 mg injection (KeNALog 40) Problems Active Problems Problem Classification Problem Date Documented Da te Episodic/Chronic Acute bronchitis (1 source) Viral bronchitis; Translations: [Acute bronchitis due to other specified organisms] Episodic Anxiety disorders (7 sources) Mixed anxiety and depressive disorder; Translations: [Anxiety disorder, unspecified] 06-30-2021 Chronic Blindness and vision defects (2 sources) Blurring of visual image; Translations: [Other visual disturbances] Episodic Calculus of urinary tract (20 sources) Kidney stone; Translations: [Calculus of kidney] Onset: 10-01-2015 Resolved: 10-20-2016 06-30-2021 Episodic Chronic kidney disease (6 sources) Anemia of renal disease; Translations: [Chronic kidney disease, unspecified] Onset: 09-30-2024 11-10-2022 Chronic Complication of device; implant or graft (6 sources) Prosthetic joint mechanical failure; Translations: [Broken internal joint prosthesis, other site, initial encounter] Onset: 11-10-2023 06-01-2023 Episodic Deficiency and other anemia (1 source) Anemia in chronic kidney disease; Translations: [Anemia of renal disease] Onset: 09-30-2024 Chronic Disorders of lipid metabolism (20 sources) Mixed hyperlipidemia; Translations: [Mixed hyperlipidemia] Onset: 09-01-2022 Chronic Disorders of teeth and jaw (1 source) Infection of tooth; Translations: [Periapical abscess without sinus] Episodic Diverticulosis and diverticulitis (14 sources) Diverticulitis; Translations: [Diverticulitis of intestine, part unspecified, without perforation or abscess without bleeding] Onset: 09-11-2024 06-30-2021 Chronic Essential hypertension (20 sources) Hypertensive disorder; Translations: [Essential (primary) hypertension] Onset: 10-01-2015 10-01-2015 Chronic Gastrointestinal hemorrhage (3 sources) Rectal hemorrhage; Translations: [Hemorrhage of anus and rectum] Onset: 09-11-2024 09-12-2024 Episodic Genitourinary symptoms and ill-defined conditions (4 sources) Increased frequency of urination; Translations: [Frequency of micturition] Onset: 09-30-2024 Episodic Headache; including migraine (20 sources) Headache; Translations: [Headache] Onset: 11-15-2021 Episodic Hypertension with complications and secondary hypertension (20 sources) Hypertensive urgency ; Translations: [Hypertensive urgency] Onset: 08-31-2022 08-31-2022 Chronic Inflammation; infection of eye (except that caused by tuberculosis or sexually transmitteddisease) (4 sources) Hordeolum; Translations: [Hordeolum externum unspecified eye, unspecified eyelid] 01-01-2023 Episodic Nausea and vomiting (2 sources) Nausea; Translations: [Nausea] Onset: 07-03-2024 Episodic Nutritional deficiencies (4 sources) Vitamin D deficiency; Translations: [Vitamin D deficiency, unspecified] Onset: 01-09-2024 11-10-2022 Chronic Osteoarthritis (20 sources) Osteoarthritis; Translations: [Unspecified osteoarthritis, unspecified site] Onset: 11-15-2021 Chronic Other connective tissue disease (20 sources) History of total knee arthroplasty; Translations: [Presence of right artificial knee joint] Onset: 09-19-2023 Chronic Other connective tissue disease (6 sources) Presence of left artificial knee joint; Translations: [Status post total left knee replacement] Onset: 12-29-2021 Chronic Other connective tissue disease (2 sources) Neuralgia; Translations: [Neuralgia and neuritis, unspecified] 10-03-2023 Episodic Other diseases of kidney and ureters (2 sources) Cyst of kidney; Translations: [Cyst of kidney, acquired] 12-22-2022 Episodic Other diseases of kidney and ureters (3 sources) Hydronephrosis with renal and ureteral calculous obstruction; Translations: [Hydronephrosis with urinary obstruction due to ureteral calculus] Onset: 07-15-2024 06-28-2024 Episodic Other injuries and conditions due to external causes (15 sources) Hamstring injury; Translations: [Unspecified injury of muscle, fascia and tendon of the posterior muscle group at thigh level, left thigh, initial encounter] 04-20-2023 Episodic Other lower respiratory disease (7 sources) Dyspnea; Translations: [Dyspnea, unspecified] 12-08-2019 Episodic Other lower respiratory disease (1 source) Cough; Translations: [Acute cough] Episodic Other lower respiratory disease (1 source) Cough; Translations: [Acute cough] 07-27-2022 Episodic Other nervous system disorders (7 sources) Chronic pain; Translations: [Other chronic pain] 03-27-2019 Chronic Other nervous system disorders (6 sources) Complex [...] Chronic Other nervous system disorders (1 source) Neuropathy; Translations: [Polyneuropathy, unspecified] 10-03-2023 Chronic Other nervous system disorders (1 source) Other chronic pain; Translations: [Chronic pain of left knee] Onset: 07-16-2023 Chronic Other nervous system disorders (20 sources) [...] tophaceous disease] 11-10-2022 Episodic Other upper respiratory disease (3 sources) Anterior epistaxis; Translations: [Epistaxis] 06-12-2023 Episodic Other upper respiratory infections (5 sources) Maxillary sinusitis; Translations: [Chronic maxillary sinusitis] Chronic Peripheral and visceral atherosclerosis (3 sources) Renal artery stenosis; Translations: [Atherosclerosis of renal artery] 11-10-2022 Chronic Rehabilitation care; fitting of prostheses; and adjustment of devices (1 source) Complication associated with nervous system implant; Translations: [Encounter for adjustment and management of neurostimulator] 01-22-2023 Episodic Residual codes; unclassified (20 sources) H/O Spinal surgery; Translations: [Presence of other specified functional implants] Onset: 10-01-2015 10-01-2015 Chronic Residual codes; unclassified (7 sources) Tobacco use and exposure - finding; Translations: [Tobacco use] 03-27-2019 Episodic Residual codes; unclassified (3 sources) At risk of apnea; Translations: [Other specified personal risk factors, not elsewhere classified] Episodic Skin and subcutaneous tissue infections (7 sources) Cellulitis of face; Translations: [Cellulitis of face] 12-08-2019 Episodic Spondylosis; intervertebral disc disorders; other back problems (3 sources) Degeneration of lumbar intervertebral disc; Translations: [Other intervertebral disc degeneration, lumbar region] 12-29-2022 Chronic Spondylosis; intervertebral disc disorders; other back problems (5 sources) Backache; Translations: [Dorsalgia, unspecified] 10-22-2022 Episodic Sprains and strains (20 sources) Strain of tendon of foot and ankle; Translations: [Strain of unspecified muscle and tendon at ankle and foot level, right foot, initial encounter] Onset: 10-31-2016 10-31-2016 Episodic Substance-related disorders (20 sources) Moderate smoker (20 or less per day) ; Translations: [Nicotine dependence, cigarettes, uncomplicated] Onset: 11-28-2021 Chronic Unclassified (20 sources) 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: 08-01-2023 08-01-2023 Past or Other Problems Problem Classification Problem Date Documented Da te Episodic/Chronic Abdominal pain (20 sources) Right flank pain; Translations: [Unspecified abdominal pain] Onset: 11-17-2022 Episodic Joint disorders and dislocations; trauma-related (20 sources) Acute meniscal tear, medial; Translations: [Complex tear of medial meniscus, current injury, right knee, initial encounter] Onset: 10-20-2015 10-20-2015 Episodic Other connective tissue disease (20 sources) Pain in left lower limb; Translations: [Pain in left leg] Onset: 07-16-2023 04-20-2023 Episodic Other lower respiratory disease (20 sources) Dyspnea on exertion; Translations: [Other forms of dyspnea] Onset: 08-28-2023 02-03-2023 Episodic Other non-traumatic joint disorders (20 sources) Pain in left knee; Translations: [Pain in joint, lower leg] Onset: 05-17-2023 04-20-2023 Episodic Other non-traumatic joint disorders (1 source) Effusion, left knee; Translations: [Pain and swelling of left knee] Onset: 06-07-2024 Episodic Other screening for suspected conditions (not mental disorders or infectious disease) (3 sources) Other specified abnormal findings of blood chemistry; Translations: [Encounter for screening for malignant neoplasm of prostate] Onset: 09-18-2023 Episodic Results Test Name Value Interpretation Reference Range Facility CNOV 10-12-2024 CNOV Office Visit (ORTHIN ) -- RUDDY RUVALCABA ([id number]) 1970 M Date Time Provider Department 10/12/24 11:30 AM NOAH DE ANDA During your visit today, we recorded the following information about you: Weight Height 111.6 kg 1.778 m Noah De Anda APRN.CNP 10/15/2024 10:22 AM Signed Orthopaedic Office Note: October 15, 2024 10:16 AM Ruddy Ruvalcaba 54 year old History: Justice is a very pleasant 54 year old male who presents today for left knee pain. He is well known to me having undergone L TKA with Dr. Delgado last September. He did have a slow recovery and issues with RSD post-operatively. He reports about 3-4 weeks ago he took a misstep and developed a sudden increase in pain. He noted increase in swelling and shortly after. He now reports with occasional twisting/knee bending episodes were he will get a sharp pain that comes and goes. He denies any falls or any trauma. He reports when this occurs he also feels the knee is going to give out. He is here for x-rays and repeat evaluation. Subjective: Left knee pain Updated ROS: No changes Updated Exam: Left Lower Extremity: KNEE EXAM: Left: Incision well healed Range of motion is 0 degrees in extension and 120 degrees of flexion. Pain with ROM: No Effusion: Slight Tender to the palpation of None Pain with patellar compression: No Stability: Anterior/Posterior stable and Varus/Valgus stable Hip Exam: flexion to 100+ degrees, full extension, internal/external rotation adequate and no pain with log roll Neurovascular Status: Sensation Intact and Moves foot and ankle up AND down Updated Imaging: Left total knee arthroplasty in appropriate position without evidence for loosening or osteolysis Assessment and Plan: Pain due to left knee replacement Justice and I discussed his left knee today. X-rays are stable. Physical exam is normal as well. We discussed in certain positions he can pinch the synovium lining of the knee. Signs and symptoms discussed associated with this. I was able to reproduce this in office as well. Recommend RICE/bracing treatment to cool things off as well as anti-inflammatory regimen. I will prescribe a one time prescription only of oxycodone to help him through this. He will update me in 4 weeks time in his progress. All questions answered. Noah De Anda APRN.[facility] Orthopaedic Surgery Referring Provider: SELF [200] Allergies As of Date: 10/12/2024 (No Known Allergies) Date Reviewed: 10/12/2024 Reviewed by: Tk Tyler MA - Fully Assessed Primary Visit Diagnosis:Pain due to total left knee replacement, initial encounter [T84.84XA, Z96.652] Order(s):methylPREDNISolon e (MEDROL, ALBINA,) 4 mg Dose-PackAs Instructed per packageDisp: 21 tabletRfl: 0 oxyCODONE IR (ROXICODONE) 5 mg immediate release tabletTake 1 tablet by mouth every 12 hours as needed for pain for up to 7 days. for pain. Patient should start on October 14, 2024.Disp: 14 tabletRfl: 0 Prescriptions as of 10/15/2024 - methylPREDNISolone (MEDROL, ALBINA,) 4 mg Dose-Pack As Instructed per package - oxyCODONE IR (ROXICODONE) 5 mg immediate release tablet Take 1 tablet by mouth every 12 hours as needed for pain for up to 7 days. for pain. Patient should start on October 14, 2024. - oxyCODONE-acetaminophen (PERCOCET) 5-325 mg tablet Take 1 tablet by mouth once daily as needed for pain for up to 7 days. - amLODIPine (NORVASC) 10 mg tablet Take 1 tablet by mouth once daily. - chlorthalidone (HYGROTON) 25 mg tablet Take 1 tablet by mouth once daily. - labetalol (TRANDATE) 200 mg tablet Take 2 tablets by mouth two times a day. - telmisartan (MICARDIS) 80 mg tablet Take 1 tablet by mouth daily at bedtime. - amitriptyline (ELAVIL) 10 mg tablet Take 1 tablet by mouth daily at bedtime. - tamsulosin (FLOMAX) 0.4 mg Take 1 capsule by mouth once daily for 7 days. - nabumetone (RELAFEN) 500 mg tablet Take 1 tablet by mouth two times a day. - acetaminophen (TYLENOL) 500 mg tablet Take 2 tablets by mouth every 8 hours as needed for pain. - erythromycin (ROMYCIN) 5 mg/gram (0.5 %) ophthalmic ointment Use 1 Drop in the right eye daily at bedtime. Patient should start on September 22, 2023. Problem List As Of Date 10/12/2024 Noted Resolved RSD (reflex sympathetic dystrophy) [G90.50] [...] [M1*11/15/2021 Tobacco smoker, 1 pack of cigarettes (more content not included)... Normal [facility] XR KNEE 3V AP/LAT/MERCHANT L Ton 10-10-2024 XR KNEE 3V AP/LAT/MERCHANT LT * * *Final Report* * * DATE OF EXAM: Oct 10 2024 12:56PM [id number] [id number] - XR KNEE 3V AP/LAT/MERCHANT LT / PROCEDURE REASON: Acute pain of left knee * * * * Physician Interpretation * * * * PROCEDURE: Left knee INDICATION: Acute pain of left knee .PT STATES LEFT LATERAL KNEE PAIN AND SWELLING OVER THE LAST WEEK NO INJURY TECHNIQUE: XR KNEE 3V AP/LAT/MERCHANT LT COMPARISON: 05/07/2024 FINDINGS: The total knee arthroplasty remains in satisfactory position. No periprosthetic lucency or fracture. Stable hardware from prior ACL reconstruction. Trace joint effusion. IMPRESSION: No acute abnormality Bi Tester: PSCB Transcribe Date/Time: Oct 12 2024 1:03P Dictated by : SOFIYA LOPEZ MD This examination was interpreted and the report reviewed and electronically signed by: SOFIYA LOPEZ MD on Oct 12 2024 1:03PM EST [id number] Normal [facility] 25(OH)D3 [facility] 2024 25-hydroxyvitamin D3 [Mass/Vol] 31.6 ng/mL Normal 31.0-80.0 [facility] Comment on above: Order Comment: Speci men Type: BLOOD SPECIMENOrdering Facility: [facility] Address: [address] [place] [address] Performed By: #### 1 989-3 ####[facility]IA [id number] [place] [address] [place] ALBUMIN/CREATININE RATIO, UR INEon 09-30-2024 Albumin DL <= 20 mg/L (U) [Mass/Vol] 35.9 mg/L Normal [facility] Comment on above: Order Comment: Speci men Type: URINE SPECIMENOrdering Facility: [facility] Address: [address] [place] [address] Performed By: #### U ACR ####[facility] [id number] [place] [address] [place] Albumin/Creatinine (U) [Mass ratio] 35 mg/g High <30 [facility] Comment on above: Order Comment: Speci men Type: URINE SPECIMENOrdering Facility: [facility] Address: [address] [place] [address] Result Comment: Adul t Male and Female Nephrotic Criteria: <30 mg/g is considered normal to mildly increased 30-300 mg/g is considered moderately increased >300 mg/g is considered severely increased KDIGO. (2013). KDIGO 2012 Clinical Practice Guideline for the Evaluation and Management of Chronic Kidney Disease. Official Journal of the International Society of Nephrology, 3(1), 1-150. Performed By: #### U ACR ####[facility] LABCLIA [id number] [place] [address] [place] Creatinine (U) [Mass/Vol] 103.9 mg/dL Normal 20.0-300.0 [facility] Comment on above: Order Comment: Speci men Type: URINE SPECIMENOrdering Facility: [facility] Address: [address] [place] [address] Performed By: #### U ACR ####[facility] LABCLIA [id number] [place] [address] [place] CBC W Auto Differential pane l (Bld)on 09-30-2024 Basophils (Bld) [#/Vol] 0.13 10*3/uL High <0.11 [facility] Comment on above: Order Comment: Speci men Type: BLOOD SPECIMENOrdering Facility: [facility] Address: [address] [place] [address] Performed By: #### 5 7021-8 ####[facility]ENTER[facility] [id number] [place] [address] [place] Basophils/100 WBC (Bld) 1.1 % Normal [facility] Comment on above: Order Comment: Speci men Type: BLOOD SPECIMENOrdering Facility: [facility] Address: [address] [place] [address] Performed By: #### 5 7021-8 ####[facility]ENTERLIA [id number] [place] [address] [place] Differential cell count method Nom (Bld) Auto Normal [facility] Comment on above: Order Comment: Speci men Type: BLOOD SPECIMENOrdering Facility: [facility] Address: [address] [place] [address] Performed By: #### 5 7021-8 ####[facility]ITALMAJOR [id number] [place] [address] [place] Eosinophils (Bld) [#/Vol] 0.38 10*3/uL Normal <0.46 [facility] Comment on above: Order Comment: Speci men Type: BLOOD SPECIMENOrdering Facility: [facility] Address: [address] [place] [address] Performed By: #### 5 7021-8 ####[facility] [id number] [place] [address] [place] Eosinophils/100 WBC (Bld) 3.2 % Normal [facility] Comment on above: Order Comment: Speci men Type: BLOOD SPECIMENOrdering Facility: [facility] Address: [address] [place] [address] Performed By: #### 5 7021-8 ####[facility] [id number] [place] [address] [place] Erythrocyte distribution width (RBC) [Ratio] 13.2 % Normal 11.5-15.0 [facility] Comment on above: Order Comment: Speci men Type: BLOOD SPECIMENOrdering Facility: [facility] Address: [address] [place] [address] Performed By: #### 5 7021-8 ####[facility]ITALNCLIA [id number] [place] [address] [place] Hematocrit (Bld) [Volume fraction] 43.0 % Normal 39.0-51.0 [facility] Comment on above: Order Comment: Speci men Type: BLOOD SPECIMENOrdering Facility: [facility] Address: [address] [place] [address] Performed By: #### 5 7021-8 ####[facility]ENTERL[facility] [id number] [place] [address] [place] Hemoglobin (Bld) [Mass/Vol] 14.8 g/dL Normal 13.0-17.0 [facility] Comment on above: Order Comment: Speci men Type: BLOOD SPECIMENOrdering Facility: [facility] Address: [address] [place] [address] Performed By: #### 5 7021-8 ####[facility]ENTERLI [id number] [place] [address] [place] Immature granulocytes (Bld) [#/Vol] 0.03 10*3/uL Normal <0.10 [facility] Comment on above: Order Comment: Speci men Type: BLOOD SPECIMENOrdering Facility: [facility] Address: [address] [place] [address] Performed By: #### 5 7021-8 ####[facility] [id number] [place] [address] [place] Immature granulocytes/100 WBC (Bld) 0.3 % Normal [facility] Comment on above: Order Comment: Speci men Type: BLOOD SPECIMENOrdering Facility: [facility] Address: [address] [place] [address] Performed By: #### 5 7021-8 ####[facility] [id number] [place] [address] [place] Lymphocytes (Bld) [#/Vol] 2.09 10*3/uL Normal 1.00-4.00 [facility] Comment on above: Order Comment: Speci men Type: BLOOD SPECIMENOrdering Facility: [facility] Address: [address] [place] [address] Performed By: #### 5 7021-8 ####[facility] HOSPITALNCLI [id number] [place] [address] [place] Lymphocytes/100 WBC (Bld) 17.8 % Normal [facility] Comment on above: Order Comment: Speci men Type: BLOOD SPECIMENOrdering Facility: [facility] Address: [address] [place] [address] Performed By: #### 5 7021-8 ####[facility] [id number] [place] [address] [place] MCH (RBC) [Entitic mass] 30.1 pg Normal 26.0-34.0 [facility] Comment on above: Order Comment: Speci men Type: BLOOD SPECIMENOrdering Facility: [facility] Address: [address] [place] [address] Performed By: #### 5 7021-8 ####[facility] [id number] [place] [address] [place] MCHC (RBC) [Mass/Vol] 34.4 g/dL Normal 30.5-36.0 [facility] Comment on above: Order Comment: Speci men Type: BLOOD SPECIMENOrdering Facility: [facility] Address: [address] [place] [address] Performed By: #### 5 7021-8 ####[facility] [id number] [place] [address] [place] MCV (RBC) [Entitic vol] 87.6 fL Normal 80.0-100.0 [facility] Comment on above: Order Comment: Speci men Type: BLOOD SPECIMENOrdering Facility: [facility] Address: [address] [place] [address] Performed By: #### 5 7021-8 ####[facility] [id number] [place] [address] [place] Monocytes (Bld) [#/Vol] 0.96 10*3/uL High <0.87 [facility] Comment on above: Order Comment: Speci men Type: BLOOD SPECIMENOrdering Facility: [facility] Address: [address] [place] [address] Performed By: #### 5 7021-8 ####[facility] JOSEJOSE [place] [id number] [place] [address] [place] Monocytes/100 WBC (Bld) 8.2 % Normal [facility] Comment on above: Order Comment: Speci men Type: BLOOD SPECIMENOrdering Facility: [facility] Address: [address] [place] [address] Performed By: #### 5 7021-8 ####[facility] HOSPITALNCA [id number] [place] [address] [place] Neutrophils (Bld) [#/Vol] 8.13 10*3/uL High 1.45-7.50 [facility] Comment on above: Order Comment: Speci men Type: BLOOD SPECIMENOrdering Facility: [facility] Address: [address] [place] [address] Performed By: #### 5 7021-8 ####[facility] [id number] [place] [address] [place] Neutrophils/100 WBC (Bld) 69.4 % Normal [facility] Comment on above: Order Comment: Speci men Type: BLOOD SPECIMENOrdering Facility: [facility] Address: [address] [place] [address] Performed By: #### 5 7021-8 ####[facility]ITALNCLIA [id number] [place] [address] [place] Nucleated RBC (Bld) [#/Vol] 10*3/uL Normal <0.01 [facility] Comment on above: Order Comment: Speci men Type: BLOOD SPECIMENOrdering Facility: [facility] Address: [address] [place] [address] Performed By: #### 5 7021-8 ####[facility] ANGELYLIA [id number] [place] [address] [place] Nucleated RBC/100 WBC (Bld) [Ratio] 0.0 /100 WBC Normal [facility] Comment on above: Order Comment: Speci men Type: BLOOD SPECIMENOrdering Facility: [facility] Address: [address] [place] [address] Performed By: #### 5 7021-8 ####[facility] JOSEOAKLANDWANDERA [id number] [place] [address] [place] Platelet mean volume (Bld) [Entitic vol] 9.9 fL Normal 9.0-12.7 [facility] Comment on above: Order Comment: Speci men Type: BLOOD SPECIMENOrdering Facility: [facility] Address: [address] [place] [address] Performed By: #### 5 7021-8 ####[facility] HOSPITALRASHADVika [id number] [place] [address] [place] Platelets (Bld) [#/Vol] 324 10*3/uL Normal 150-400 [facility] Comment on above: Order Comment: Speci men Type: BLOOD SPECIMENOrdering Facility: [facility] Address: [address] [place] [address] Performed By: #### 5 7021-8 ####[facility] HOSPITALWANDERA [id number] [place] [address] [place] RBC (Bld) [#/Vol] 4.91 10*6/uL Normal 4.20-6.00 [facility] Comment on above: Order Comment: Speci men Type: BLOOD SPECIMENOrdering Facility: [facility] Address: [address] [place] [address] Performed By: #### 5 7021-8 ####[facility] HOSPITALNCLIA [id number] [place] [address] [place] WBC (Bld) [#/Vol] 11.72 10*3/uL High 3.70-11.00 [facility] Comment on above: Order Comment: Speci men Type: BLOOD SPECIMENOrdering Facility: [facility] Address: [address] [place], [place] [address] Performed By: #### 5 7021-8 ####[facility] CENTERLIA [id number] [place] [address] [place] [facility]esium [facility] 09-30 Magnesium [Mass/Vol] 2.2 mg/dL Normal 1.7-2.3 [facility] Comment on above: Order Comment: Speci men Type: BLOOD SPECIMEN [facility] Address: [address] [place] [address] Performed By: #### 2 4362-6, 3084-1, #### [facility]N CLIA [id number] [address] [place] [address] [place] PTH-Intact [facility] 09-17 Parathyrin.intact [Mass/Vol] 49 pg/mL Normal 15-65 [facility] Comment on above: Order Comment: Speci men Type: BLOOD SPECIMENOrdering Facility: [facility] Address: [address] [place], [place] [address] Performed By: #### 2 731-8 ####[facility] LABCLIA [id number] [address] [address] [place] [facility] Albumin [Mass/Vol] 4.7 g/dL Normal 3.9-4.9 [facility] Comment on above: Order Comment: Speci men Type: BLOOD SPECIMEN [facility] Address: [address] [place], [place] [address] Performed By: #### 2 4362-6, 3084-1, 02024-5 #### [facility] CLIA [id number] [address] [place] [address] [place] Anion gap [Moles/Vol] 13 mmol/L Normal 8-15 [facility] Comment on above: Order Comment: Speci men Type: BLOOD SPECIMEN [facility] Address: [address] [place] [address] Performed By: #### 2 4362-6, 3084-1, #### [facility] CLIA [id number] [address] [place] [address] [place] Calcium [Mass/Vol] 9.8 mg/dL Normal 8.5-10.2 [facility] Comment on above: Order Comment: Speci men Type: BLOOD SPECIMEN [facility] Address: [address] [place] [address] Performed By: #### 2 4362-6, 3083-, #### [facility] CLIA [id number] [address] [place] [address] [place] Chloride [Moles/Vol] 105 mmol/L Normal 98-107 [facility] Comment on above: Order Comment: Speci men Type: BLOOD SPECIMEN [facility] Address: [address] [place] [address] Performed By: #### 2 4362-6, 3083-1, #### [facility] CLIA [id number] [address] [place] [address] [place] CO2 [Moles/Vol] 22 mmol/L Normal 22-30 [facility] Comment on above: Order Comment: Speci men Type: BLOOD SPECIMEN [facility] Address: [address] [place] [address] Performed By: #### 2 4362-6, 308-1, #### [facility] CLIA [id number] [address] [place] [address] [place] Creatinine [Mass/Vol] 1.07 mg/dL Normal 0.73-1.22 [facility] Comment on above: Order Comment: Maged bullock Type: BLOOD SPECIMEN [facility] Address: [address] [place], [place] [address] Performed By: #### 2 4362-6, 3084-1, #### [facility] CLIA [id number] [address] [place] [address] [place] Creatinine and Glomerular filtration rate.predicted panel (S/P/Bld) 81 mL/min/1.73m??? Normal >=60 [facility] Comment on above: Order Comment: Maged bullock Type: BLOOD SPECIMEN [facility] Address: [address] [place] [address] Result Comment: Catherine mated Glomerular Filtration Rate (eGFR) is calculated using the 2020 CKD-EPI creatinine equation. This equation utilizes serum creatinine, sex, and age as parameters. The creatinine assay has traceable calibration to isotope dilution-mass spectrometry. Refer to KDIGO guidelines for clinical interpretation. In patients with unstable renal function, e.g. those with acute kidney injury, the eGFR may not accurately reflect actual GFR. Performed By: #### 2 4362-6, 3081, #### [facility] CLIA [id number] [address] [place] [address] [place] Glucose [Mass/Vol] 109 mg/dL High 74-99 [facility] Comment on above: Order Comment: Maged bullock Type: BLOOD SPECIMEN [facility] Address: [address] [place], [place] [address] Result Comment: The [place] Diabetes Association (ADA) provides guidance for cutoff [...] Standards of Medical Care in Diabetes 2016, [place] [employer]. Diabetes Care. 2016.39(Suppl 1). Performed By: #### 2 4362-6, 3084-1, #### [facility] CLIA [id number] [address] [place] [address] [place] Phosphate [Mass/Vol] 2.9 mg/dL Normal 2.7-4.8 [facility] Comment on above: Order Comment: Maged bullock Type: BLOOD SPECIMEN [facility] Address: [address] [place] [address] Performed By: #### 2 4362-6, 308-, #### [facility] CLIA [id number] [address] [place] [address] [place] Potassium [Moles/Vol] 4.2 mmol/L Normal 3.7-5.1 [facility] Comment on above: Order Comment: Maged bullock Type: BLOOD SPECIMEN [facility] Address: [address] [place], [place] [address] Performed By: #### 2 4362-6, 30806-18, #### [facility] CLIA [id number] [address] [place] [address] [place] Sodium [Moles/Vol] 140 mmol/L Normal 136-144 [facility] Comment on above: Order Comment: Maged bullock Type: BLOOD SPECIMEN [facility] Address: [address] [place] [address] Performed By: #### 2 4362-6, 3081, #### [facility] CLIA [id number] [address] [place] [address] [place] Urea nitrogen [Mass/Vol] 19 mg/dL Normal 9-24 [facility] Comment on above: Order Comment: Speci men Type: BLOOD SPECIMEN [facility] Address: [address] [place] [address] Performed By: #### 2 4362-6, 3084-1, #### [facility] CLIA [id number] [address] [place] [address] [place] Urate SerPl-mCncon Urate [Mass/Vol] 5.6 mg/dL Normal 4.0-8.1 [facility] Comment on above: Order Comment: Speci men Type: BLOOD SPECIMEN [facility] Address: [address] [place] [address] Performed By: #### 2 4362-6, 308-1, #### [facility] CLIA [id number] [address] [place] [address] [place] Urinalysis complete panel (U )on 09-30-2024 Bilirubin Ql (U) Negative Normal Negative [facility] Comment on above: Order Comment: Speci men Type: BLOOD SPECIMEN [facility] Address: [address] [place] [address] Performed By: #### 2 4362-6, 3083-, #### [facility] CLIA [id number] [address] [place] [address] [place] Clarity (Unsp spec) Clear Normal Clear [facility] Comment on above: Order Comment: Speci men Type: BLOOD SPECIMEN [facility] Address: [address] [place] [address] Performed By: #### 2 4362-6, 3084-1, #### [facility] CLIA [id number] [address] [place] [address] [place] Color (U) Yellow Normal Yellow [facility] Comment on above: Order Comment: Speci men Type: BLOOD SPECIMEN [facility] Address: [address] [place] [address] Performed By: #### 2 4362-6, 3083-03, #### [facility] CLIA [id number] [address] [place] [address] [place] Epithelial cells LM.HPF (Urine sed) [#/Area] Few Normal [facility] Comment on above: Order Comment: Speci men Type: BLOOD SPECIMEN [facility] Address: [address] [place] [address] Result Comment: Few Performed By: #### 2 4362-6, 3083-03, #### [facility] CLIA [id number] [address] [place] [address] [place] Glucose Test strip (U) [Mass/Vol] Negative Normal Negative [facility] Comment on above: Order Comment: Speci men Type: BLOOD SPECIMEN [facility] Address: [address] [place] [address] Performed By: #### 2 4362-6, 3083-03, #### [facility] CLIA [id number] [address] [place] [address] [place] Hemoglobin Ql (U) Negative Normal Negative [facility] Comment on above: Order Comment: Speci men Type: BLOOD SPECIMEN [facility] Address: [address] [place] [address] Performed By: #### 2 4362-6, 3083-03, #### [facility] CLIA [id number] [address] [place] [address] [place] Hyaline casts (Urine sed) [#/Area] 1-3 /LPF Abnormal 0 /LPF [facility] Comment on above: Order Comment: Speci men Type: BLOOD SPECIMEN [facility] Address: [address] [place], [place] [address] Performed By: #### 2 4362-6, 3083-03, #### [facility] CLIA [id number] [address] [place] [address] [place] [facility] Ketones Ql (U) Negative Normal Negative [facility] Comment on above: Order Comment: Speci men Type: BLOOD SPECIMEN [facility] Address: [address] [place] [address] Performed By: #### 2 4362-6, 3083-03, #### [facility] CLIA [id number] [address] [place] [address] [place] Leukocyte esterase Test strip Ql (U) Negative Normal Negative [facility] Comment on above: Order Comment: Speci men Type: BLOOD SPECIMEN [facility] Address: [address] [place] [address] Performed By: #### 2 4362-6, 3083-03, #### [facility] CLIA [id number] [address] [place] [address] [place] Nitrite Ql (U) Negative Normal Negative [facility] Comment on above: Order Comment: Speci men Type: BLOOD SPECIMEN [facility] Address: [address] [place] [address] Performed By: #### 2 4362-6, 3083-03, #### [facility] CLIA [id number] [address] [place] [address] [place] pH (U) 6.0 [pH] Normal 5.0-8.0 [facility] Comment on above: Order Comment: Speci men Type: BLOOD SPECIMEN [facility] Address: [address] [place] [address] Performed By: #### 2 4362-6, 3083-03, #### [facility] CLIA [id number] [address] [place] [address] [place] Protein (U) [Mass/Vol] Negative Normal Negative [facility] Comment on above: Order Comment: Speci men Type: BLOOD SPECIMEN [facility] Address: [address] [place] [address] Performed By: #### 2 4362-6, 30806-18, #### [facility] CLIA [id number] [address] [place] [address] [place] RBC LM.HPF (Urine sed) [#/Area] 0-3 /HPF Normal 0-3 /HPF [facility] Comment on above: Order Comment: Speci men Type: BLOOD SPECIMEN [facility] Address: [address] [place] [address] Performed By: #### 2 4362-6, 30806-18, #### [facility] CLIA [id number] [address] [place] [address] [place] Specific gravity (U) [Rel density] 1.025 Normal 1.005-1.030 [facility] Comment on above: Order Comment: Speci men Type: BLOOD SPECIMEN [facility] Address: [address] [place] [address] Performed By: #### 2 4362-6, 30806-18, #### [facility] CLIA [id number] [address] [place], [place] [address] [place] Urobilinogen Ql (U) 0.2 EU/dL Normal 0.2-1.0 EU/dL [facility] Comment on above: Order Comment: Speci men Type: BLOOD SPECIMEN [facility] Address: [address] [place] [address] Performed By: #### 2 4362-6, 30806-18, #### [facility] CLIA [id number] [address] [place] [address] [place] WBC LM.HPF (Urine sed) [#/Area] 0-5 /HPF Normal 0-5 /HPF [facility] Comment on above: Order Comment: Speci men Type: BLOOD SPECIMEN [facility] Address: [facility] [place][note 2] [place] [address] Performed By: #### 2 4362-6, 3084-1, 59767-1 #### [facility] CLIA [id number] [address] [place] [address] [place] Absolute lymphocyte countOrd ered By: Felton Torres on 09-12-2024 Lymphocytes Auto (Unsp spec) [#/Vol] 1.84 10*3/uL 0.83-4.51 [facility] Absolute neutrophil countOrd ered By: Felton Torres on 09-12-2024 Neutrophils (Bld) [#/Vol] 8.1 10*3/uL High 2.0-7.7 [facility] Anion gap in Serum or Plasma Ordered By: Felton Torres on 09-12-2024 Anion gap [Moles/Vol] 13 mmol/L 5-15 [facility] Automated lymphocyte count a s percentage of total leukocytesOrdered By: Felton Torres on 09-12-2024 Lymphocytes/100 WBC Auto (Unsp spec) 16.5 % Low 19-41 [facility] BUN/creatinine ratioOrdered By: Felton Torres on 09-12-2024 Urea nitrogen/Creatinine [Mass ratio] 11.9 mg/mg 10-20 [facility] Basic Metabolic Profile (BMP )on 09-12-2024 BUN/CRE 11.9 RATIO Normal - [facility] Comment on above: Performed By: #### L 100.0100, L500.2500 #### [facility] [address] [place], [address] Calcium [Mass/Vol] 9.7 mg/dL Normal 7.6-11.0 [facility] Comment on above: Performed By: #### L 100.0100, L500.2500 #### [facility] [address] [place], [address] Chloride [Moles/Vol] 102 mmol/L Normal 98-108 [facility] Comment on above: Performed By: #### L 100.0100, L500.2500 #### [facility] [address] [place], [address] CO2 [Moles/Vol] 23.5 mmol/L Normal 21.0-32.0 [facility] Comment on above: Performed By: #### L 100.0100, L500.2500 #### [facility] [address] [place], [address] Creatinine [Mass/Vol] 1.20 mg/dL Normal 0.70-1.20 [facility] Comment on above: Performed By: #### L 100.0100, L500.2500 #### [facility] [address] [place], [address] ECRCL 85.55 ml/min Normal 50-250 [facility] Comment on above: Performed By: #### L 100.0100, L500.2500 #### [facility] [address] [place], [address] GAP 13 Normal 5-15 [facility] Comment on above: Performed By: #### L 100.0100, L500.2500 #### [facility] [address] [place], [address] GFR/1.73 sq M.predicted among non-blacks MDRD (S/P/Bld) [Vol rate/Area] 71 mL/min/{1.73_m2} Normal >60 [facility] Comment on above: Result Comment: mL/m in/1.73m2 CKD-EPI Creatinine Equation (2020) Performed By: #### L 100.0100, L500.2500 #### [facility] [address] [place], [address] Glucose [Mass/Vol] 101 mg/dL High 70-99 [facility] Comment on above: Performed By: #### L 100.0100, L500.2500 #### [facility] [address] [place], [address] Potassium [Moles/Vol] 4.7 mmol/L Normal 3.3-5.1 [facility] Comment on above: Result Comment: Hemo lysis present, Results??could be affected. ?? Performed By: #### L 100.0100, L500.2500 #### [facility] [address] [place], [address] Sodium [Moles/Vol] 139 mmol/L Normal 133-145 [facility] Comment on above: Performed By: #### L 100.0100, L500.2500 #### [facility] [address] [place], [address] Urea nitrogen [Mass/Vol] 14 mg/dL Normal 4-19 [facility] Comment on above: Performed By: #### L 100.0100, L500.2500 #### [facility] [address] [place], [address] Basophil percentageOrdered B y: Felton Torres on 09-12-2024 Basophils/100 WBC (Bld) 0.9 % 0-1 [facility] CBC W/Diff, Automatedon - Absolute Lymph 1.84 X10 3/uL Normal 0.83-4.51 [facility] Comment on above: Performed By: #### L 100.0100, L500.2500 #### [facility] [address] [place], [address] Absolute Neut 8.1 X10 3/uL High 2.0-7.7 [facility] Comment on above: Performed By: #### L 100.0100, L500.2500 #### [facility] [address] [place], [address] Basophils/100 WBC (Bld) 0.9 % Normal 0-1 [facility] Comment on above: Performed By: #### L 100.0100, L500.2500 #### [facility] [address] [place], [address] Eosinophils/100 WBC (Bld) 2.8 % Normal 0-5 [facility] Comment on above: Performed By: #### L 100.0100, L500.2500 #### [facility] [address] [place], [address] Erythrocyte distribution width (RBC) [Ratio] 13.0 % Normal 11.6-14.6 [facility] Comment on above: Performed By: #### L 100.0100, L500.2500 #### [facility] [address] [place], [address] Hematocrit (Bld) [Volume fraction] 42.9 % Normal 40-54 [facility] Comment on above: Performed By: #### L 100.0100, L500.2500 #### [facility] [address] [place], [address] Hemoglobin (Bld) [Mass/Vol] 14.9 g/dL Normal 13.0-16.5 [facility] Comment on above: Performed By: #### L 100.0100, L500.2500 #### [facility] [address] [place], [address] IG% 0.400 Normal 0.0-0.9 [facility] Comment on above: Result Comment: IG% - Immature Granulocytes (promyelocytes, myelocytes and metamyelocytes) > 1% indicates that a LEFT SHIFT is Present. Performed By: #### L 100.0100, L500.2500 #### [facility] [address] [place], [address] Lymphocytes/100 WBC (Bld) 16.5 % Low 19-41 [facility] Comment on above: Performed By: #### L 100.0100, L500.2500 #### [facility] [address] [place], [address] MCH (RBC) [Entitic mass] 30.4 pg Normal 27.0-32.0 [facility] Comment on above: Performed By: #### L 100.0100, L500.2500 #### [facility] [address] [place], [address] MCHC (RBC) [Mass/Vol] 34.7 g/dL Normal 32-36 [facility] Comment on above: Performed By: #### L 100.0100, L500.2500 #### [facility] [address] [place], [address] MCV (RBC) [Entitic vol] 87.6 fL Normal 80-94 [facility] Comment on above: Performed By: #### L 100.0100, L500.2500 #### [facility] [address] [place], [address] Monocytes/100 WBC (Bld) 7.2 % Normal 0-10 [facility] Comment on above: Performed By: #### L 100.0100, L500.2500 #### [facility] [address] [place], [address] Neutrophils/100 WBC (Bld) 72.2 % High 47-70 [facility] Comment on above: Performed By: #### L 100.0100, L500.2500 #### [facility] [facility] [address] [place], [address] Nucleated RBC (Bld) [#/Vol] 0 10*3/uL Normal 0-5 [facility] Comment on above: Performed By: #### L 100.0100, L500.2500 #### [facility] [address] [place], [address] Platelet mean volume (Bld) [Entitic vol] 10.2 fL Normal 6.2-12.0 [facility] Comment on above: Performed By: #### L 100.0100, L500.2500 #### [facility] [address] [place], [address] Platelets (Bld) [#/Vol] 290 10*3/uL Normal 150-450 [facility] Comment on above: Performed By: #### L 100.0100, L500.2500 #### [facility] [address] [place], [address] RBC (Bld) [#/Vol] 4.90 10*6/uL Normal 4.6-6.2 [facility] Comment on above: Performed By: #### L 100.0100, L500.2500 #### [facility] [address] [place], [address] RDW SD 41.7 fl Normal 35.1-43.9 [facility] Comment on above: Performed By: #### L 100.0100, L500.2500 #### [facility] [address] [place], [address] WBC (Bld) [#/Vol] 11.2 10*3/uL High 4.4-11.0 [facility] Comment on above: Performed By: #### L 100.0100, L500.2500 #### [facility] [address] [place], [address] Carbon dioxide, total [Moles /volume] in Central venous bloodOrdered By: Felton Torres on 09-12-2024 CO2 [Moles/Vol] 23.5 mmol/L 21.0-32.0 [facility] Chloride assayOrdered By: Escobar Torres on 09-12-2024 Chloride [Moles/Vol] 102 mmol/L 98-108 [facility] Emergency Department Summary on 09-12-2024 Emergency Department Summary [facility] Medical Records Department [address] [place] [address] Emergency Department Summary 09/12/24 MR#: [id number] Acct: [id number] Name: RUDDY RUVALCABA Rep #: [id number] : 1970 54 From: Felton Torres MD PCP: Jossy Natarajan HOME CARE SPECIALIST-C Status:REG ER Location: ED HPI HPI - GI History of Present Illness Chief Complaint: GI Bleed Narrative Narrative: 54-year-old male past medical history of hypertension, does not take blood thinners, presents with rectal bleeding that has had for the last 2 to 3 days. He states his symptoms started a few days ago. 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 It is continued over the last few days. He states that yesterday he was seen at [place] emergency department where they wanted to transfer him to [facility] for inpatient colonoscopy. He states he had a CT of the abdomen and pelvis which did not show anything acute, and when the physician performed rectal examination/anoscopy, although he had a hemorrhoid, there was bleeding from higher up on the scope. He states he is continuing to have rectal bleeding that is wetting his undergarment, and was on the chair when he was signing in. He also has it with bowel movements. He states he feels lightheaded as well. He denies any chest pain or shortness of breath. Denies other bleeding diathesis. [facility] Medical History Diverticulitis Hypertension Anxiety and depression Osteoarthritis Nephrolithiasis Home Medications ???Medication ???Instructions ???Recorded ???Last Taken ???Type amoxicillin 875 mg-potassium 1 tab PO Q8H #30 tabs 06/26/21 Unk nown Rx clavulanate 125 mg tablet Held on 12/24/22. Instructions: Pt has been DC'd ondansetron 4 mg disintegrating 4 mg PO Q8H PRN PRN Nausea #10 tab s 06/26/21 Unknown Rx tablet cyclobenzaprine 10 mg tablet 10 mg PO TID PRN Muscle Spasm #20 10/22/22 Unknown Rx Held on 12/24/22. TABLETS Instructions: Pt has been DC'd hydrocodone-acetaminophen 5-325mg 1 tab PO Q4H PRN PRN Pain 2 days 10/22/22 Unknown Rx 5mg-325mg #10 TABLETS Held on 12/24/22. Instructions: Pt has been DC'd amlodipine 10 mg tablet 10 mg PO DAILY 12/24/22 Unknown Hi story chlorthalidone 25 mg tablet 25 mg PO DAILY 12/24/22 Unknown Hi story doxycycline hyclate 100 mg capsule 100 mg PO BID #20 caps 12/24/22 Unknown Rx finasteride 5 mg tablet 5 mg PO DAILY 12/24/22 Unknown His tory hydralazine 50 mg tablet 50 mg PO TID 12/24/22 Unknown Hist ory labetalol 200 mg tablet 300 mg PO BID 12/24/22 Unknown His tory lisinopril 10 mg tablet 40 mg PO BID 12/24/22 Unknown Hist ory hydrocodone-acetaminophen 5-325mg 1 tab PO Q6H PRN pain 3 days #12 04/10/23 Unknown Rx 5mg-325mg tabs naproxen 500 mg tablet 500 mg PO BID #14 tabs 06/28/24 Un known Rx oxycodone-acetaminophen 5 mg-325 1 tab PO Q6H PRN PRN Pain 3 days 0 06/28/24 Unknown Rx mg tablet #12 TABLETS Allergy/AdvReac Type Severity Reaction Status Date / Time No Known Allergies Allergy Verified 06/28/24 13:45 Surgical History History of nasal surgery Hx of arthroscopic knee surgery History of repair of ACL Hx of total knee replacement Social History household members: spouse Smoking Status: Heavy Smoker (>10/day) ROS ROS ED ROS Narrative Review of systems positive for rectal bleeding and lightheadedness, no chest pain or shortness of breath, developed abdominal pain over the last 24 hours. No nausea or vomiting. No other bleeding. EXAM Physical Exam Narrative Exam Narrative: Afebrile. Vital signs noted. Nontoxic-appearing. Cardiovascular examination reveals a regular rate and rhythm. Lungs are clear to auscultation bilaterally. Abdomen is soft and minimally tender diffusely with positive bowel sounds. Neurological examination nonfocal nonlateralizing. No central cyanosis. No noted pallor of skin. Const Vital Signs: 09/12/24 13:57 09/12/24 16:20 09/12/24 16:44 Temperature 96.4 F L Temperature Source Temporal Pulse Rate 81 70 Pulse Rate [Lying] 71 Pulse Rate [Sitting (for 1 minute prior to obtaining)] 77 Pulse Rate [Standing (for 1 minute prior to obtaining)] 79 Respiratory Rate 20 H 16 Blood Pressure 221/127 H 184/154 H Blood Pressure [Lying] 189/97 H Blood Pressure [Sitting (for 1 minute prior to obtaining)] 194/108 H Blood Pressure [Standing (for 1 minute prior to obtaining)] 169/99 H Blood Pressure Mean 158 164 Blood Pressure Mean [Lying] 127 Blood Pressure Mean [Sitting (for 1 minute prior to obtaining)] 136 Blood Pressure Mean [Standing (for (more content not included)... Normal [facility] Eosinophil percentageOrdered By: Felton Torres on 09-12-2024 Eosinophils/100 WBC (Bld) 2.8 % 0-5 [facility] Erythrocyte distribution wid th ratioOrdered By: Felton Torres on 09-12-2024 Erythrocyte distribution width (RBC) [Ratio] 13.0 % 11.6-14.6 [facility] Erythrocyte distribution wid th standard deviationOrdered By: Felton Torres on 09-12-2024 Erythrocyte distribution width (RBC) [Ratio] 41.7 fl 35.1-43.9 [facility] Glomerular filtration rate ( GFR) estimation/1.73 sq m using serum, plasma, or whole bOrdered By: Felton Torres on 09-12-2024 GFR/1.73 sq M.predicted among non-blacks MDRD (S/P/Bld) [Vol rate/Area] 71 mL/min/{1.73_m2} >60 [facility] Comment on above: mL/min/1.73m2 CKD-EP I Creatinine Equation (2020) Hematocrit Auto (Bld) [Volum e fraction]Ordered By: Felton Torres on 09-12-2024 Hematocrit (Bld) [Volume fraction] 42.9 % 40-54 [facility] Hemoglobin measurementOrdere d By: Felton Torres on 09-12-2024 Hemoglobin (Bld) [Mass/Vol] 14.9 g/dL 13.0-16.5 [facility] Immature granulocytes/100 WB C Auto (Bld)Ordered By: Felton Torres on 09-12-2024 Immature granulocytes/100 WBC (Bld) 0.400 % 0.0-0.9 [facility] Comment on above: IG% - Immature Granu locytes (promyelocytes, myelocytes and metamyelocytes) > 1% indicates that a LEFT SHIFT is Present. MCV (mean corpuscular volume ) determinationOrdered By: Felton Torres on 09-12-2024 MCV (RBC) [Entitic vol] 87.6 fL 80-94 [facility] Mean corpuscular hemoglobin (MCH) determinationOrdered By: Felton Torres on 09-12-2024 MCH (RBC) [Entitic mass] 30.4 pg 27.0-32.0 [facility] Mean corpuscular hemoglobin concentration (MCHC) determinationOrdered By: Felton Torres on 09-12-2024 MCHC (RBC) [Mass/Vol] 34.7 g/dL 32-36 [facility] Mean platelet volume determi nationOrdered By: Felton Torres on 09-12-2024 Platelet mean volume (Bld) [Entitic vol] 10.2 fL 6.2-12.0 [facility] Monocyte percentageOrdered B y: Felton Torres on 09-12-2024 Monocytes/100 WBC (Bld) 7.2 % 0-10 [facility] Neutrophil percentageOrdered By: Felton Torres on 09-12-2024 Neutrophils/100 WBC (Bld) 72.2 % High 47-70 [facility] Nucleated red blood cell per centageOrdered By: Felton Torres on 09-12-2024 Nucleated RBC/100 WBC (Bld) [Ratio] 0 % 0-5 [facility] Platelet countOrdered By: Escobar Torres on 09-12-2024 Platelets (Bld) [#/Vol] 290 10*3/uL 150-450 [facility] Potassium measurement (mass/ volume)Ordered By: Felton Torres on 09-12-2024 Potassium (Unsp spec) [Mass/Vol] 4.7 mmol/L 3.3-5.1 [facility] Comment on above: Hemolysis present, R esults could be affected. RBC Auto (Bld) [#/Vol]Ordere d By: Felton Torres on 09-12-2024 RBC (Bld) [#/Vol] 4.90 10*6/uL 4.6-6.2 [facility] Serum creatinine measurement (mass/volume)Ordered By: Felton Torres on 09-12-2024 Creatinine [Mass/Vol] 1.20 mg/dL 0.70-1.20 [facility] Serum glucose measurement (m ass/volume)Ordered By: Felton Torres on 09-12-2024 Glucose [Mass/Vol] 101 mg/dL High 70-99 [facility] Serum or plasma calcium carlos alberto urement (mass/volume)Ordered By: Felton Torres on 09-12-2024 Calcium [Mass/Vol] 9.7 mg/dL 7.6-11.0 [facility] Serum or plasma urea nitroge n measurement (mass/volume)Ordered By: Felton Torres on 09-12-2024 Urea nitrogen [Mass/Vol] 14 mg/dL 4-19 [facility] Sodium levelOrdered By: Felton Torres on 09-12-2024 Sodium [Moles/Vol] 139 mmol/L 133-145 [facility] White blood cell (WBC) count Ordered By: Felton Torres on 09-12-2024 WBC (Bld) [#/Vol] 11.2 10*3/uL High 4.4-11.0 [facility] ALLIED HEALTHon 09-11-2024 ALLIED HEALTH HNO ID: [id number] Author: ESME VALDOVINOS RT(R) Service: Radiology Author Type: Photoengraving Proofer Type: Allied Health Filed: 09/11/2024 17:47 Note Text: Radiology Service Progress Note DATE OF SERVICE: September 11, 2024 TIME: 5:47 PM PATIENT IDENTITY VERIFICATION COMPLETED USING TWO (2) STANDARD IDENTIFIERS: Name and Date of confirmed by patient verbally. FALL SCREENING: Has the patient had 2 falls in the last year or 1 fall with injury or currently using an Ambulatory Assistive Device (Walker, Cane, Wheelchair, Crutches, etc.)? Emergency Room Patient: Screened in ED PATIENT GENDER DATA: Assigned male at PATIENT RELEVANT IMPLANT DATA REVIEWED: Yes PATIENT PRESENTS WITH AN IMPLANTABLE OR ATTACHED TIRE DUSTER: No ALLERGIES: Reviewed and unchanged CONTRAST ALLERGY: NO. EXAM: CT -CONTRAST INDUCED NEPHROPATHY RISK FACTORS: Not applicable CREATININE: Creatinine Date Value Ref Range Status 09/11/2024 1.35 (H) 0.73 - 1.22 mg/dL Final 01/11/2024 1.14 0.73 - 1.22 mg/dL Final 11/12/2023 1.23 (H) 0.73 - 1.22 mg/dL Final Estimated Glomerular Filtration Rate Date Value Ref Range Status 09/11/2024 62 >=60 mL/min/1.73m? Final Comment: Estimated Glomerular Filtration Rate (eGFR) is calculated using the 2020 CKD-EPI creatinine equation. This equation utilizes serum creatinine, sex, and age as parameters. The creatinine assay has traceable calibration to isotope dilution-mass spectrometry. Refer to KDIGO guidelines for clinical interpretation. In patients with unstable renal function, e.g. those with acute kidney injury, the eGFR may not accurately reflect actual GFR. eGFR- Date Value Ref Range Status 10/01/2015 >60 Final P.O.C.T. RESULTS: POC done: Yes, See Lab Tab September 11, 2024 TREATMENT: N/A PERIPHERAL IV DATA: Inpatient - refer to [facility] documentation RADIOLOGY DEPARTMENT: CT; Exam(s) Completed: CTA Abdomen Pelvis SIGNATURE: RT Jarrell(R) PATIENT NAME: Ruddy Ruvalcaba DATE: September 11, 2024 TIME: 5:47 PM Normal [facility] CBC W Auto Differential pane l (Bld)on 09-11-2024 Basophils (Bld) [#/Vol] 0.07 10*3/uL Normal <0.11 [facility] Comment on above: Order Comment: Speci men Type: BLOOD SPECIMEN Ordering Facility: [facility] Address: [address] [place] [address] Performed By: #### 5 7021-8 #### [facility] CLIA [id number] [address] [place] [address] [place] Basophils/100 WBC (Bld) 0.6 % Normal [facility] Comment on above: Order Comment: Speci men Type: BLOOD SPECIMEN Ordering Facility: [facility] Address: [address] [place] [address] Performed By: #### 5 7021-8 #### [facility] CLIA [id number] [address] [place] [address] [facility] Differential cell count method Nom (Bld) Auto Normal [facility] Comment on above: Order Comment: Speci men Type: BLOOD SPECIMEN Ordering Facility: [facility] Address: [address] [place] [address] Performed By: #### 5 7021-8 #### [facility] CLIA [id number] [address] [place] [address] [place] Eosinophils (Bld) [#/Vol] 0.35 10*3/uL Normal <0.46 [facility] Comment on above: Order Comment: Speci men Type: BLOOD SPECIMEN Ordering Facility: [facility] Address: [address] [place] [address] Performed By: #### 5 7021-8 #### [facility] CLIA [id number] [address] [place] [id number] [facility] Eosinophils/100 WBC (Bld) 3.1 % Normal [facility] Comment on above: Order Comment: Speci men Type: BLOOD SPECIMEN Ordering Facility: [facility] Address: [address] [place] [address] Performed By: #### 5 7021-8 #### [facility] CLIA [id number] [address] [place] [address] [place] Erythrocyte distribution width (RBC) [Ratio] 13.1 % Normal 11.5-15.0 [facility] Comment on above: Order Comment: Speci men Type: BLOOD SPECIMEN Ordering Facility: [facility] Address: [address] [place] [address] Performed By: #### 5 7021-8 #### [facility] CLIA [id number] [address] [place] [address] [place] Hematocrit (Bld) [Volume fraction] 41.7 % Normal 39.0-51.0 [facility] Comment on above: Order Comment: Speci men Type: BLOOD SPECIMEN Ordering Facility: [facility] Address: [address] [place] [address] Performed By: #### 5 7021-8 #### [facility] CLIA [id number] [address] [place] [address] [place] Hemoglobin (Bld) [Mass/Vol] 14.2 g/dL Normal 13.0-17.0 [facility] Comment on above: Order Comment: Speci men Type: BLOOD SPECIMEN Ordering Facility: [facility] Address: [address] [place] [address] Performed By: #### 5 7021-8 #### [facility] CLIA [id number] [address] [place] [address] [place] Immature granulocytes (Bld) [#/Vol] 10*3/uL Normal <0.10 [facility] Comment on above: Order Comment: Speci men Type: BLOOD SPECIMEN Ordering Facility: [facility] Address: [address] [place] [address] Performed By: #### 5 7021-8 #### [facility] CLIA [id number] [address] [place] [address] [place] Immature granulocytes/100 WBC (Bld) 0.2 % Normal [facility] Comment on above: Order Comment: Speci men Type: BLOOD SPECIMEN Ordering Facility: [facility] Address: [address] [place] [address] Performed By: #### 5 7021-8 #### [facility] CLIA [id number] [address] [place] [address] [place] Lymphocytes (Bld) [#/Vol] 2.55 10*3/uL Normal 1.00-4.00 [facility] Comment on above: Order Comment: Speci men Type: BLOOD SPECIMEN Ordering Facility: [facility] Address: [address] [place] [address] Performed By: #### 5 7021-8 #### [facility] CLIA [id number] [address] [place], [place] [address] [place] [address] Lymphocytes/100 WBC (Bld) 22.9 % Normal [facility] Comment on above: Order Comment: Speci men Type: BLOOD SPECIMEN Ordering Facility: [facility] Address: [address] [place] [address] Performed By: #### 5 7021-8 #### [facility] CLIA [id number] [address] MCH (RBC) [Entitic mass] 30.3 pg Normal 26.0-34.0 [facility] Comment on above: Order Comment: Speci men Type: BLOOD SPECIMEN Ordering Facility: [facility] Address: [address] [place] [address] Performed By: #### 5 7021-8 #### [facility] CLIA [id number] [address] MCHC (RBC) [Mass/Vol] 34.1 g/dL Normal 30.5-36.0 [facility] Comment on above: Order Comment: Speci men Type: BLOOD SPECIMEN Ordering Facility: [facility] Address: [address] [place] [address] Performed By: #### 5 7021-8 #### [facility] CLIA [id number] [address] [place] [address] [place] MCV (RBC) [Entitic vol] 89.1 fL Normal 80.0-100.0 [facility] Comment on above: Order Comment: Speci men Type: BLOOD SPECIMEN Ordering Facility: [facility] Address: [address] [place] [address] Performed By: #### 5 7021-8 #### [facility] CLIA [id number] [address] [place], [place] [id number] [place] [address] [place] Monocytes (Bld) [#/Vol] 0.85 10*3/uL Normal <0.87 [facility] Comment on above: Order Comment: Speci men Type: BLOOD SPECIMEN Ordering Facility: [facility] Address: [address] [place] [address] Performed By: #### 5 7021-8 #### [facility] CLIA [id number] [address] [place] [address] [place] Monocytes/100 WBC (Bld) 7.6 % Normal [facility] Comment on above: Order Comment: Speci men Type: BLOOD SPECIMEN Ordering Facility: [facility] Address: [address] [place] [address] Performed By: #### 5 7021-8 #### [facility] CLIA [id number] [address] [place] [address] [place] Neutrophils (Bld) [#/Vol] 7.31 10*3/uL Normal 1.45-7.50 [facility] Comment on above: Order Comment: Speci men Type: BLOOD SPECIMEN Ordering Facility: [facility] Address: [address] [place] [address] Performed By: #### 5 7021-8 #### [facility] CLIA [id number] [address] [place] [address] [place] Neutrophils/100 WBC (Bld) 65.6 % Normal [facility] Comment on above: Order Comment: Speci men Type: BLOOD SPECIMEN Ordering Facility: [facility] Address: [address] [place] [address] Performed By: #### 5 7021-8 #### [facility] CLIA [id number] [address] [place] [address] [place] Nucleated RBC (Bld) [#/Vol] Normal [facility] Comment on above: Order Comment: Speci men Type: BLOOD SPECIMEN Ordering Facility: [facility] Address: [address] [place] [address] Performed By: #### 5 7021-8 #### [facility] CLIA [id number] [address] [place] [address] [place] Nucleated RBC/100 WBC (Bld) [Ratio] Normal [facility] Comment on above: Order Comment: Speci men Type: BLOOD SPECIMEN Ordering Facility: [facility] Address: [facility] [place] [address] Performed By: #### 5 7021-8 #### [facility] CLIA [id number] [address] [place] [address] [place] Platelet mean volume (Bld) [Entitic vol] 10.5 fL Normal 9.0-12.7 [facility] Comment on above: Order Comment: Speci men Type: BLOOD SPECIMEN Ordering Facility: [facility] Address: [address] [place] [address] Performed By: #### 5 7021-8 #### [facility] CLIA [id number] [address] [place] [address] [place] Platelets (Bld) [#/Vol] 304 10*3/uL Normal 150-400 [facility] Comment on above: Order Comment: Speci men Type: BLOOD SPECIMEN Ordering Facility: [facility] Address: [address] [place] [address] Performed By: #### 5 7021-8 #### [facility] CLIA [id number] [address] [place] [address] [place] RBC (Bld) [#/Vol] 4.68 10*6/uL Normal 4.20-6.00 [facility] Comment on above: Order Comment: Speci men Type: BLOOD SPECIMEN Ordering Facility: [facility] Address: [address] [place] [address] Performed By: #### 5 7021-8 #### [facility] CLIA [id number] [address] [place] [address] [place] WBC (Bld) [#/Vol] 11.15 10*3/uL High 3.70-11.00 [facility] Comment on above: Order Comment: Speci men Type: BLOOD SPECIMEN Ordering Facility: [facility] Address: [address] [place] [address] Performed By: #### 5 7021-8 #### [facility] [place] [id number] [address] [place] [address] [place] CTA ABD/PELV W IVCONon 09-11 CTA ABD/PELV W IVCON * * *Final Report* * * DATE OF EXAM: Sep 11 2024 5:46PM [facility] [place]11 - CTA ABD/PELV W IVCON / PROCEDURE REASON: GI bleed * * * * Physician Interpretation * * * * EXAM TITLE: CT ANGIOGRAM ABDOMINAL AORTA W/WO CONTRAST DATE: 09/11/2024 COMPARISON: 08/31/2022 CLINICAL INDICATION/HISTORY: Rectal bleeding TECHNIQUE: Helical axial slices were obtained from the domes of the diaphragms to the upper thighs before and during the bolus intravenous administration of contrast. Bolus images were sent to a separate workstation and 3-D multiplanar reconstruction CT angiogram with MIP and shaded surface display imaging was obtained. CT Radiation dose: Integrated dose-length product (DLP) for this visit = 3528.04 mGy*cm. CT Dose Reduction Employed: Automated exposure control (AEC) was used. FINDINGS: Lung bases are clear. Hepatic steatosis. No liver mass. Gallbladder is contracted limiting evaluation. No calcified gallstones identified. No biliary dilation. Pancreas, spleen, and adrenal glands appear unremarkable. 3 mm nonobstructing calculus mid right kidney. 3 mm nonobstructing calculus mid left kidney. 3.5 cm cyst posterior mid left kidney. 1.8 cm cyst medial upper right kidney. No hydroureteronephrosis. No bowel dilation or wall thickening. Normal appendix. Diverticulosis of the sigmoid colon noted without acute diverticulitis. No lymphadenopathy. No mass. No ascites. Abdominal aorta tapers normally without aneurysm or flow-limiting stenosis. Celiac trunk, SMA, renal arteries and GRETEL are patent without flow-limiting stenosis. Common, internal and external iliac arteries are patent without aneurysm or flow-limiting stenosis. No extraluminal leakage of contrast or abnormal vascular blush to indicate site of active GI bleeding. There are coarse calcifications within the prostate gland centrally. Calcified phleboliths. No pelvic mass, ascites or fluid collection. Spinal stimulator is present within the subcutaneous tissues overlying the right gluteal region with lead ascending spinal canal out of the field of view. No acute osseous abnormality. IMPRESSION: 1. No CTA evidence of active GI bleed. 2. Hepatic steatosis. 3. Bilateral nonobstructing nephrolithiasis. No hydronephrosis. 4. Sigmoid diverticulosis without acute diverticulitis. Bi Tester: VÍCTOR Transcribe Date/Time: Sep 11 2024 6:51P Dictated by : BORA MUNSON MD This examination was interpreted and the report reviewed and electronically signed by: BORA MUNSON MD on Sep 11 2024 7:09PM EST [id number] Normal [facility] Comprehensive metabolic 2000 panelon 09-11-2024 Albumin [Mass/Vol] 4.4 g/dL Normal 3.9-4.9 [facility] Comment on above: Order Comment: Speci men Type: BLOOD SPECIMEN Ordering Facility: [facility] Address: [address] [place] [address] Performed By: #### 2 4323-8, #### [facility] CLIA [id number] [address] [place] [address] [place] ALP [Catalytic activity/Vol] 77 U/L Normal 38-113 [facility] Comment on above: Order Comment: Speci men Type: BLOOD SPECIMEN Ordering Facility: [facility] Address: [address] [place] [address] Performed By: #### 2 4323-8, #### [facility] CLIA [id number] [address] [place] [address] [place] ALT With P-5'-P [Catalytic activity/Vol] 12 U/L Normal 10-54 [facility] Comment on above: Order Comment: Speci men Type: BLOOD SPECIMEN Ordering Facility: [facility] Address: [address] [place] [address] Performed By: #### 2 4323-8, #### [facility] CLIA [id number] [address] [place] [address] [place] Anion gap [Moles/Vol] 13 mmol/L Normal 8-15 [facility] Comment on above: Order Comment: Speci men Type: BLOOD SPECIMEN Ordering Facility: [facility] Address: [address] [place] [address] Performed By: #### 2 8, #### [facility] CLIA [id number] [address] [place] [address] [place] AST With P-5'-P [Catalytic activity/Vol] 14 U/L Normal 14-40 [facility] Comment on above: Order Comment: Speci men Type: BLOOD SPECIMEN Ordering Facility: [facility] Address: [address] [place], [place] [id number] Performed By: #### 2 4328, #### [facility] CLIA [id number] [address] [place] [address] [place] Bilirubin [Mass/Vol] 0.2 mg/dL Normal 0.2-1.3 [facility] Comment on above: Order Comment: Speci men Type: BLOOD SPECIMEN Ordering Facility: [facility] Address: [address] [place], [place] [address] Performed By: #### 2 4328, #### [facility] CLIA [id number] [address] [place] [address] [place] Calcium [Mass/Vol] 9.6 mg/dL Normal 8.5-10.2 [facility] Comment on above: Order Comment: Speci men Type: BLOOD SPECIMEN Ordering Facility: [facility] Address: [address] [place], [place] [address] Performed By: #### 2 4322-10, #### [facility] CLIA [id number] [address] [place] [address] [place] Chloride [Moles/Vol] 103 mmol/L Normal 98-107 [facility] Comment on above: Order Comment: Speci men Type: BLOOD SPECIMEN Ordering Facility: [facility] Address: [address] [place], [place] [address] Performed By: #### 2 4328, #### [facility] CLIA [id number] [address] [place] [address] [place] CO2 [Moles/Vol] 25 mmol/L Normal 22-30 [facility] Comment on above: Order Comment: Maged bullock Type: BLOOD SPECIMEN Ordering Facility: [facility] Address: [address] [place] [address] Performed By: #### 2 4323-8, #### [facility] CLIA [id number] [address] [place] [address] [place] Creatinine [Mass/Vol] 1.35 mg/dL High 0.73-1.22 [facility] Comment on above: Order Comment: Maged bullock Type: BLOOD SPECIMEN Ordering Facility: [facility] Address: [address] [place] [address] Performed By: #### 2 4323-8, #### [facility] CLIA [id number] [address] [facility] Creatinine and Glomerular filtration rate.predicted panel (S/P/Bld) 62 mL/min/1.73m??? Normal >=60 [facility] Comment on above: Order Comment: Maged bullock Type: BLOOD SPECIMEN Ordering Facility: [facility] Address: [address] [place] [address] Result Comment: Catherine mated Glomerular Filtration Rate (eGFR) is calculated using the 2020 CKD-EPI creatinine equation. This equation utilizes serum creatinine, sex, and age as parameters. The creatinine assay has traceable calibration to isotope dilution-mass spectrometry. Refer to KDIGO guidelines for clinical interpretation. In patients with unstable renal function, e.g. those with acute kidney injury, the eGFR may not accurately reflect actual GFR. Performed By: #### 2 4323-8, #### [facility] CLIA [id number] [address] [place] [address] [place] Glucose [Mass/Vol] 117 mg/dL High 74-99 [facility] Comment on above: Order Comment: Maged bullock Type: BLOOD SPECIMEN Ordering Facility: [facility] Address: [address] [place] [address], [place] [address] Result Comment: The [place] Diabetes Association (ADA) provides guidance for cutoff [...] Standards of Medical Care in Diabetes 2016, [place] [employer] Association. Diabetes Care. 2016.39(Suppl 1). Performed By: #### 2 4322-8, #### [facility] CLIA [id number] [address] [place] [address] [place] Potassium [Moles/Vol] 3.9 mmol/L Normal 3.7-5.1 [facility] Comment on above: Order Comment: Speci men Type: BLOOD SPECIMEN Ordering Facility: [facility] Address: [address] [place] [address] Performed By: #### 2 8, #### [facility] CLIA [id number] [address] [place] [address] [place] Protein [Mass/Vol] 7.3 g/dL Normal 6.3-8.0 [facility] Comment on above: Order Comment: Speci men Type: BLOOD SPECIMEN Ordering Facility: [facility] Address: [address] [place] [address] Performed By: #### 2 8, #### [facility] CLIA [id number] [address] [place] [address] [place] Sodium [Moles/Vol] 141 mmol/L Normal 136-144 [facility] Comment on above: Order Comment: Speci men Type: BLOOD SPECIMEN Ordering Facility: [facility] Address: [address] [place] [address] Performed By: #### 2 432-8, #### [facility] CLIA [id number] [address] [place] [address] [place] Urea nitrogen [Mass/Vol] 19 mg/dL Normal 12-11 [facility] Comment on above: Order Comment: Speci men Type: BLOOD SPECIMEN Ordering Facility: [facility] Address: [address] [place] [address] Performed By: #### 2 4323-8, #### [facility] CLIA [id number] [address] [place] [address] [facility] ED NOTEon 09-11-2024 ED NOTE HNO ID: [id number] Author: ANTHONY LAURA, CHYNA Service: ? Author Type: Registered Nurse Type: ED Notes Filed: 09/11/2024 19:43 Note Text: D/c instructions reviewed with pt. Pt verbalized understanding. Pt's BP elevated. Other vss. Dr. Rowley aware. Pt left ED ual with . 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 Author Type: Registered Nurse Type: ED Notes Filed: 09/11/2024 16:28 Note Text: Pt states yesterday at 10am he felt something wet underneath him. He went to the bathroom around his "time to have a BM" and when he wiped there was blood. Since pt has been through multiple pairs of underwear and bled through his shorts on the way to ED today. Pt has rectal pain, stating it feels like there are razor blades up inside. Pt states blood is bright red. He also states that he had one episode of vomiting last night During rectal exam hemorrhoid examined per Dr. Rowley. Normal [facility] ED NOTE HNO ID: [id number] Author: SAMMI ARNDT RN Service: ? Author Type: Registered Nurse Type: ED Notes Filed: 09/11/2024 16:09 Note Text: Pt arrives with report of rectal bleeding beginning yesterday morning. Pt reports pain "feels like razor blades." No hx of hemorrhoids No anticoagulation use. Normal [facility] ED PROV NOTEon 09-11-2024 ED PROV NOTE HNO ID: [id number] Author: NICK ROWLEY MD Service: Emergency Medicine Author Type: Physician Type: ED Provider Notes Filed: 09/12/2024 11:58 Note Text: ED Provider Note Patient Name: Ruddy Ruvalcaba : 1970 SERVICE DATE: 09/11/24 History Patient presents with: Rectal Bleeding HPI This is a 54-year-old gentleman with history as below presenting for assessment of rectal bleeding. History is provided by patient, spouse at the bedside. Onset of symptoms yesterday. States that yesterday morning he felt the need to have a bowel movement. Went to use the restroom and noticed with the stool that there was blood in the toilet. States that he has had persistent bleeding since then. States that it is spotting on his underwear and his pants. No clots. States that he has had bowel movements since then that are formed with no blood mixed into the stool but there is blood with the stool. Reports rectal pain. Denies abdominal pain nausea vomiting diarrhea. No chest pain cough or shortness of breath. No headache lightheadedness or dizziness. He does not take anticoagulation for any reason. Due to persistent bleeding presents for ED assessment. PAST MEDICAL HISTORY Diagnosis Date Bilateral renal stones Class 2 severe obesity due to excess calories with serious comorbidity and body mass index (BMI) of 35.0 to 35.9 in adult (HCC) MONROY (dyspnea on exertion) Essential hypertension 10/01/2015 Fatty infiltration of liver 10/22/2022 Hypertension, unspecified type Kidney stones Mixed hyperlipidemia Nicotine use disorder Obesity, Class I, BMI 30-34.9 Reflex sympathetic dystrophy of other specified site [...] Right 12/01/2021 Right total robotic knee replacement TOTAL KNEE REPLACEMENT Left 09/18/2023 FAMILY HISTORY Problem Relation Age of Onset other (negative) Father Social History Tobacco Use Smoking status: Every Day Current packs/day: 0.25 Average packs/day: 0.3 packs/day for 35.9 years (9.0 ttl pk-yrs) Types: Cigarettes Start date: 10/20/1988 Smokeless tobacco: Never Vaping Use Vaping status: Never Used Substance and Sexual Activity Alcohol use: Yes Comment: "glass of wine every now and then" Drug use: Yes Types: Marijuana Comment: "every now and then" Sexual activity: Yes Partners: Female ALLERGIES No Known Allergies Review of Systems Per HPI Physical Exam Vitals BP Pulse Temp Temp src Resp SpO2 Weight Height 09/11/24 1606 09/11/24 1605 09/11/24 1605 09/11/24 1605 09/11/24 1605 09/11/24 1605 09/11/24 1605 09/11/24 1605 (!) 239/134 83 36.2 ?C (97.1 ?F) Temporal 17 96 % 110.7 kg (244 lb) 1.778 m (5' 10") Physical Exam Patient is overall non-toxic and in no obvious distress. Hemodynamically stable and afebrile Heart RRR w/o murmurs; Distal pulses intact Lungs CTAB Abd soft, NT, ND. No rebound or guarding, no peritoneal signs. DEDRA with maroon blood. Normal tone. Noted hemorrhoids Patient moves all 4 extremities spontaneously and without deficit Diagnostic Testing ED Labs Ordered and Reviewed COMPREHENSIVE METABOLIC PANEL - Abnormal; Notable for the following components: Result Value Ref Range Glucose 117 (*) 74 - 99 mg/dL Creatinine 1.35 (*) 0.73 - 1.22 mg/dL All other components within normal limits COMPLETE BLOOD COUNT AND DIFFERENTIAL - Abnormal; Notable for the following components: WBC 11.15 (*) 3.70 - 11.00 k/uL All other components within normal limits IMMUNOCHEMICAL FECAL OCCULT BLOOD TEST - Abnormal; Notable for the following components: Occult Blood, Stool Positive (*) Negative All other components within normal limits MAGNESIUM - Normal PROTHROMBIN TIME - Normal Procedures ED Course / Clinical Impression Clinical Impressions as of 09/11/242133 Rectal bleeding Elevated blood pressure reading with diagnosis of hypertension Diverticulosis MDM / Disposition / Plan MDM Patient is a 54-year-old male with history as above presenting with complaints of rectal bleeding. History and exam as above. (more content not included)... Normal [facility] Hemoccult Stl Ql IAon 2024 Lower GI hemoglobin IA Ql (Stl) Positive Abnormal Negative [facility] Comment on above: Order Comment: Speci men Type: STOOL SPECIMEN Ordering Facility: [facility] Address: [address] [place] [address] Performed By: #### 2 9771-3 #### [facility] CLIA [id number] [address] [place] [address] [place] Magnesium SerPl-mCncon 09-11 Magnesium [Mass/Vol] 2.1 mg/dL Normal 1.7-2.3 [facility] Comment on above: Order Comment: Speci men Type: BLOOD SPECIMEN Ordering Facility: [facility] Address: [address] [place] [address] Performed By: #### 2 4323-8, 58400-2 #### [facility] CLIA [id number] [address] [place] [address] [place] PT panel Coag (PPP)on 2024 INR Coag (PPP) [Relative time] 1.0 {INR} Normal 0.9-1.3 [facility] Comment on above: Order Comment: Maged bullock Type: BLOOD SPECIMEN Ordering Facility: [facility] Address: [address] [place] [id number] Result Comment: Lydia min K Antagonist (VKA) Therapeutic Range: INR 2 to 3 (Target INR of 2.5) Note: For patients treated with VKA drugs, such as warfarin, the [place] [employer] 2012 Guideline recommends a therapeutic INR range of 2 to 3 (target INR of 2.5). This recommendation includes high-risk patients with antiphospholipid syndrome with previous arterial or venous thromboembolism, current-generation mechanical or bioprosthetic aortic heart valve replacement. Note: Patients with mechanical aortic valve replacement and additional risk factors for thromboembolic events (atrial fibrillation, previous thromboembolism, LV dysfunction, hypercoagulable conditions) or an older generation mechanical AVR (i.e., ball in-Cage) or any mechanical MVR should have a INR therapeutic range of 2.5 to 3.5 (target INR of 3). Angelica GH, et al. Chest 2012, 141:7S-47S Pradeep RA, et al. [facility] 2017, 70: 252-289 Performed By: #### 3 4528-0 #### [facility] CLIA [id number] [address] [place] [address] [place] PT Coag (PPP) [Time] 10.2 s Normal <13.1 [facility] Comment on above: Order Comment: Maged bullock Type: BLOOD SPECIMEN Ordering Facility: [facility] Address: [address] [place] [address] Performed By: #### 3 4528-0 #### [facility] CLIA [id number] [address] [place], [place] [address] [place] [address] [place] Pasquale 08-26-2024 DIVYA Telephone (MIGUELINA) -- RUDDY RUVALCABA ([id number]) 1970 M Date Time Provider Department 08/26/24 JOSSY NATARAJAN During your visit today, we recorded the following information about you: Keiry Hand 08/26/2024 11:28 AM Signed Pt called wanting a refill of pain meds to get him to his pain management appointment. He sent a message to Jossy but was unaware she was not in office. Please advise Jihan Godwin APRN.CNP 08/26/2024 2:40 PM Signed Jossy's last office note stated she was prescribing the opioid for kidney stone pain - this was over a month ago. He has a history of complex regional pain syndrome, usually opioids are not recommended for this condition. We can start amitriptyline at bedtime for the CRPS - see Rx. I will give him one more Rx for the percocet so he can start weaning down off it OARRS report from previous 12 months checked and validated. All prescriptions have been APPROPRIATELY filled. No suspicious activity was identified. FRANKY Dee Kristin C, APRN.CNP 08/26/2024 2:40 PM Signed Addended by: JIHAN GODWIN on: 08/26/2024 02:40 PM Modules accepted: Orders Allergies As of Date: 08/26/2024 (No Known Allergies) Date Reviewed: 07/15/2024 Reviewed by: Jossy Natarajan APRN.CNP - Fully Assessed Reason for Visit: Medication Request [138] Cmt: Needs medication refill Primary Visit Diagnosis:Complex regional pain syndrome type 1 of lower extremity, unspecified laterality [G90.529] Order(s):oxyCODONE-acetami nophen (PERCOCET) 5-325 mg tabletTake 1 tablet by mouth two times a day as needed for pain for up to 7 days.Disp: 14 tabletRfl: 0 amitriptyline (ELAVIL) 10 mg tabletTake 1 tablet by mouth daily at bedtime.Disp: 30 tabletRfl: 2 Prescriptions as of 08/26/2024 - oxyCODONE-acetaminophen (PERCOCET) 5-325 mg tablet Take 1 tablet by mouth two times a day as needed for pain for up to 7 days. - amitriptyline (ELAVIL) 10 mg tablet Take 1 tablet by mouth daily at bedtime. - tamsulosin (FLOMAX) 0.4 mg Take 1 capsule by mouth once daily for 7 days. - labetalol (TRANDATE) 200 mg tablet Take 1.5 tablets by mouth three times a day. - nabumetone (RELAFEN) 500 mg tablet Take 1 tablet by mouth two times a day. - lisinopril (ZESTRIL) 40 mg tablet Take 1 tablet by mouth two times a day. - acetaminophen (TYLENOL) 500 mg tablet Take 2 tablets by mouth every 8 hours as needed for pain. - erythromycin (ROMYCIN) 5 mg/gram (0.5 %) ophthalmic ointment Use 1 Drop in the right eye daily at bedtime. Patient should start on September 22, 2023. Problem List As Of Date 08/26/2024 Noted Resolved RSD (reflex sympathetic dystrophy) [G90.50] [...] 12/29/2021 Nicotine use disorder, F17.2 [F17.200] 04/01/2022 Hypertensive urgency [I16.0] 08/31/2022 Headache [R51.9] 08/31/2022 Mixed hyperlipidemia [E78.2] 09/01/2022 Left flank pain [R10.9] 11/17/2022 Hypertension, essential [I10] 07/16/2023 Left knee pain [M25.562] 07/16/2023 Left hamstring muscle strain [S76.312A] 07/16/2023 Left leg pain [M79.605] 07/16/2023 MONROY (dyspnea on exertion) [R06.09] 08/28/2023 S/P total knee arthroplasty, left [Z96.652] 09/19/2023 Post-traumatic osteoarthritis of left knee [M17*11/08/2023 Prescriptions ordered this encounter Disp Refills Start End OXYCODONE-ACETAMINOPHEN 5 MG-325 MG * 14 t* 0 08/26/2024 09/02/2024 Route: PO Sig: Take 1 tablet by mouth two times a day as needed for pain for up to 7 days. AMITRIPTYLINE 10 MG TABLET 30 t* 2 08/26/2024 Route: PO Sig: Take 1 tablet by mouth daily at bedtime. Medications Discontinued During This Encounter Prescriptions - oxyCODONE-acetaminophen (PERCOCET) 5-325 mg tablet (Discontinued) Take 1 tablet by mouth every 6 hours as needed for pain for up to 7 days. Encounter Status:Closed by KEIRY HAND on 08/26/24 [facility] CNOVon 07-15-2024 [facility] Office Visit (ROLANDA ZHANG) -- PEG,RUDDY L ([id number]) 1970 M Date Time Provider Department 07/15/24 3:20 PM JOSSY NATARAJAN During your visit today, we recorded the following information about you: Temperature Pulse Respiration Blood pressure 97.9 degrees 79/minute 18/minute 152/94 Weight Height 110.7 kg 1.778 m Jossy Natarajan APRN.CNP 07/18/2024 12:52 PM Signed CHIEF COMPLAINT: Ruddy is a 54-year-old male with a history of HTN and recurrent nephrolithiasis, presenting for follow-up after a recent ED visit for bilateral flank pain. I reviewed past medical, surgical, social, and family histories today and updated chart. Allergies, chronic medications, and supplements were also reviewed. Recording using [employer] software for draft documentation of the visit was discussed with the patient/authorized title insurance sales representative; all questions welcomed and answered. Patient/authorized title insurance sales representative agreed to proceed Nephrolithiasis: - Recent ED visit for bilateral flank pain; passed one stone during the visit. - Persistent bilateral flank pain; no current groin pain. - Unable to see Dr. Mortensen until October 01; on the cancellation list. - Scheduled to see pain management on August 08 for RSD. - Previously had stones that required removal. - Denies current nausea; not using Zofran. - Drinking plenty of water; cut out sweet tea and soda. - History of high ibuprofen and Tylenol use. Hypertension: - BP was 240/180 mmHg during recent ED visit; received IV Labetalol. - Currently taking 1.5 tablets of 200 mg medication TID, along with Sennapro. - Recent weight loss of over 10 lbs; current BP is 150 mmHg. Narrative: Patient is a 53-year-old male. He has history of hypertension who is presently on 300 mg of labetalol 3 times a day and 40 mg of lisinopril twice a day who presents with abrupt onset of right flank pain that started last evening. He states he drank a bunch of water. He believes he passed the stone since his pain resolved. Couple hours prior to presentation he developed severe right flank pain again that radiates anteriorly but not down to the groin. He denies dysuria, frequency, urgency or hematuria. He had nausea and 1 episode of vomiting last night. He is nauseous presently. He denies fever, chills night sweats. He was seen in May and blood pressure at that time was elevated. He was treated with IV hydralazine and p.o. clonidine Patient denies chest pain or upper back pain. Patient denies paresthesia, anesthesia or motor weakness upper or lower extremity. Patient states that every time he had a stone he had to have it surgically removed. Prior similar symptoms: Yes (Kidney stone) Medical decision making narrative: Patient with obvious acute intermittent flank pain. Most likely this representsa renal calculus. Also need to entertain possibility of aortic dissection, aortic aneurysm. Will medicate with Zofran for his nausea ketorolac and morphine for his pain. His blood pressure is not improved we will treat his blood pressure. CT of the abdomen pelvis without contrast was ordered since thestory is more consistent with obstructing ureteral stone versus dissection or abdominal aortic aneurysm. He was seen last month for accelerated hypertension. And he was treated at that time with clonidine and IV hydralazine. History AND Record Review Additional record(s) reviewed:: Prior ED visit (Patient was seen in May 2023 for elevated blood pressure by Dr. Miguel Gutierrez.) and Prior labs Lab Data Attestation: I reviewed the patient's lab results. Lab results narrative: CBC is unremarkable basic metabolic panel is unremarkable. UA macro was positive for occult blood and protein. Micro was pending. Labs: Laboratory Results - last 24 hr 06/28/24 06/28/24 14:16 15:15 WBC 9.7 RBC 4.86 Hgb 14.4 Hct 42.0 MCV 86.4 MCH 29.6 MCHC 34.3 RDW Std Deviation 42.5 RDW Coeff of Shin 13.5 Plt Count 315 MPV 10.2 Immature Gran % (Auto) 0.400 Neut % (Auto) 64.9 Lymph % (Auto) 24.2 [place] % (Auto) 6.7 Eos % (Auto) 2.9 Baso % (Auto) 0.9 Absolute Neuts (auto) 6.3 Absolute Lymphs (auto) 2.36 Nucleated RBC % 0 Sodium 140 Potassium 4.4 Chloride 104 Carbon Dioxide 24.2 Anion Gap 11 BUN 20 H Creatinine 1.16 Estim Creat Clear Calc 91.58 Est GFR (MDRD) Non-Af 74 BUN/Creatinine Ratio 17.2 Glucose 126 H Calcium 9.6 Urine Color Yellow Urine Clarity Clear Urine pH 6.0 Ur Specific Mather 1.015 Urine Protein 30 H Urine Glucose (UA) Normal Urine Ketones Negative Urine Occult Blood 150 H Urine Nitrite Negative Urine Bilirubin Negative Urine Urobilinogen Normal Ur Leukocyte Esterase Negative Basic metabolic panel is unremarkable. Glucose is 126. CO2 anion gap is normal. Renal function is normal. Radiography Diagnostic Testing: Clinical Imp (more content not included)... Normal [facility] Pasquale 07-01-2024 DIVYA Telephone (MobykoLEATHA) -- RUDDY RUVALCABA ([id number]) 1970 M Date Time Provider Department 07/01/24 JOSSY NATARAJAN During your visit today, we recorded the following information about you: Luiz Polanco MA 07/01/2024 1:30 PM Signed Pt.jess on vm stating he was in ER for kidney stones and cannot get in with you until july 18. Patient is requesting pain medication. Please advise. Luiz Polanco MA Allergies As of Date: 07/01/2024 (No Known Allergies) Date Reviewed: 06/16/2024 Reviewed by: Jihan Godwin APRN.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 - Fully Assessed Reason for Visit: Patient Question [2757] Prescriptions as of 07/02/2024 - HYDROcodone-acetaminophen (NORCO) 5-325 mg per tablet Take 1 tablet by mouth two times a day as needed for pain for up to 7 days. - labetalol (TRANDATE) 200 mg tablet Take 1.5 tablets by mouth three times a day. - nabumetone (RELAFEN) 500 mg tablet Take 1 tablet by mouth two times a day. - lisinopril (ZESTRIL) 40 mg tablet Take 1 tablet by mouth two times a day. - acetaminophen (TYLENOL) 500 mg tablet Take 2 tablets by mouth every 8 hours as needed for pain. - erythromycin (ROMYCIN) 5 mg/gram (0.5 %) ophthalmic ointment Use 1 Drop in the right eye daily at bedtime. Patient should start on September 22, 2023. Problem List As Of Date 07/01/2024 Noted Resolved RSD (reflex sympathetic dystrophy) [G90.50] [...] 12/29/2021 Nicotine use disorder, F17.2 [F17.200] 04/01/2022 Hypertensive urgency [I16.0] 08/31/2022 Headache [R51.9] 08/31/2022 Mixed hyperlipidemia [E78.2] 09/01/2022 Left flank pain [R10.9] 11/17/2022 Hypertension, essential [I10] 07/16/2023 Left knee pain [M25.562] 07/16/2023 Left hamstring muscle strain [S76.312A] 07/16/2023 Left leg pain [M79.605] 07/16/2023 MONROY (dyspnea on exertion) [R06.09] 08/28/2023 S/P total knee arthroplasty, left [Z96.652] 09/19/2023 Post-traumatic osteoarthritis of left knee [M17*11/08/2023 Encounter Status:Closed by LUIZ POLANCO on 07/02/24 Normal [facility] Abdomen/Pelvis without Conto n 06-28-2024 Abdomen/Pelvis without Cont [facility] Imaging Services [address], [place] [id number] Abdomen/Pelvis without Cont MR#: [id number] Acct: [id number] Name: RUDDY RUVALCABA Rep #: [id number] : 1970 M 53 From: Aislinn Zhang MD PCP: PIOTR Encarnacion Status: PRE ER Study: Abdomen/Pelvis without Cont Date of Exam: 06/18 04/13 Exam# [id number] Ordering Dr: Maxim De León MD EXAM: CT Abdomen and Pelvis Without Intravenous Contrast CLINICAL INDICATION: KIDNEY STONE TECHNIQUE: Axial computed tomography images of the abdomen and pelvis without intravenous contrast. This CT exam was performed using one or more of the following dose reduction techniques: automated exposure control, adjustment of the mA and/or kV according to patient size, and/or use of iterative reconstruction technique. COMPARISON: No relevant prior studies available. FINDINGS: LUNG BASES: Unremarkable. No mass. No consolidation. MEDIASTINUM: Small esophageal hiatal hernia. ABDOMEN: LIVER: Hepatomegaly with fatty infiltration. GALLBLADDER AND BILE DUCTS: Unremarkable. No calcified stones. No ductal dilation. PANCREAS: Unremarkable. No ductal dilation. SPLEEN: Unremarkable. No splenomegaly. ADRENALS: Unremarkable. No mass. KIDNEYS AND URETERS: 3 mm calculus of the right UVJ resulting in mild hydroureteronephrosis. Punctate left nephrolithiasis without hydronephrosis. STOMACH AND BOWEL: Colonic diverticulosis without acute diverticulitis. No obstruction. PELVIS: APPENDIX: No findings to suggest acute appendicitis. BLADDER: Unremarkable. No stones. REPRODUCTIVE: Unremarkable as visualized. ABDOMEN and PELVIS: INTRAPERITONEAL SPACE: Unremarkable. No free air. No significant fluid collection. BONES/JOINTS: No acute fracture. No dislocation. SOFT TISSUES: Umbilical hernia containing fat. VASCULATURE: Unremarkable. No abdominal aortic aneurysm. LYMPH NODES: Unremarkable. No enlarged lymph nodes. CT/Abdomen/Pelvis without Cont IMPRESSION: 1. 3 mm calculus of the right UVJ resulting in mild hydroureteronephrosis. 2. Small esophageal hiatal hernia. 3. Hepatomegaly with fatty infiltration. 4. Punctate left nephrolithiasis without hydronephrosis. 5. Umbilical hernia containing fat. 6. Colonic diverticulosis without acute diverticulitis. Reading Location: [facility] CC: PIOTR Natarajan; Dr. Maxim De León MD Bi Tester: Signed Normal [facility] Absolute lymphocyte countOrd ered By: Maxim De León on 06-28-2024 Lymphocytes Auto (Unsp spec) [#/Vol] 2.36 10*3/uL 0.83-4.51 [facility] Absolute neutrophil countOrd ered By: Maxim De León on 06-28-2024 Neutrophils (Bld) [#/Vol] 6.3 10*3/uL 2.0-7.7 [facility] Anion gap in Serum or Plasma Ordered By: Maxim De León on 06-28-2024 Anion gap [Moles/Vol] 11 mmol/L 5-15 [facility] Automated lymphocyte count a s percentage of total leukocytesOrdered By: Maxim De León on 06-28-2024 Lymphocytes/100 WBC Auto (Unsp spec) 24.2 % 19-41 [facility] BUN/creatinine ratioOrdered By: Maxim De León on 06-28-2024 Urea nitrogen/Creatinine [Mass ratio] 17.2 mg/mg 10- [facility] Basic Metabolic Profile (BMP )on 06-28-2024 BUN/CRE 17.2 RATIO Normal - [facility] Comment on above: Performed By: #### L 100.0100, L500.2500 #### [facility] [address] [place], [address] Calcium [Mass/Vol] 9.6 mg/dL Normal 7.6-11.0 [facility] Comment on above: Performed By: #### L 100.0100, L500.2500 #### [facility] [address] [place], [address] Chloride [Moles/Vol] 104 mmol/L Normal 98-108 [facility] Comment on above: Performed By: #### L 100.0100, L500.2500 #### [facility] [address] [place], [address] CO2 [Moles/Vol] 24.2 mmol/L Normal 21.0-32.0 [facility] Comment on above: Performed By: #### L 100.0100, L500.2500 #### [facility] [address] [place], [address] Creatinine [Mass/Vol] 1.16 mg/dL Normal 0.70-1.20 [facility] Comment on above: Performed By: #### L 100.0100, L500.2500 #### [facility] [address] [place], [address] ECRCL 91.58 ml/min Normal 50-250 [facility] Comment on above: Performed By: #### L 100.0100, L500.2500 #### [facility] [address] [place], [address] GAP 11 Normal 5-15 [facility] Comment on above: Performed By: #### L 100.0100, L500.2500 #### [facility] [address] [place], [address] GFR/1.73 sq M.predicted among non-blacks MDRD (S/P/Bld) [Vol rate/Area] 74 mL/min/{1.73_m2} Normal >60 [facility] Comment on above: Result Comment: mL/m in/1.73m2 CKD-EPI Creatinine Equation (2020) Performed By: #### L 100.0100, L500.2500 #### [facility] [address] [place], [address] Glucose [Mass/Vol] 126 mg/dL High 70-99 [facility] Comment on above: Performed By: #### L 100.0100, L500.2500 #### [facility] [address] [place], [address] Potassium [Moles/Vol] 4.4 mmol/L Normal 3.3-5.1 [facility] Comment on above: Performed By: #### L 100.0100, L500.2500 #### [facility] [address] [place], [address] Sodium [Moles/Vol] 140 mmol/L Normal 133-145 [facility] Comment on above: Performed By: #### L 100.0100, L500.2500 #### [facility] [address] [place], [address] Urea nitrogen [Mass/Vol] 20 mg/dL High 4-19 [facility] Comment on above: Performed By: #### L 100.0100, L500.2500 #### [facility] [address] [place], [address] Basophil percentageOrdered B y: Maxim De León on 06-28-2024 Basophils/100 WBC (Bld) 0.9 % 0-1 [facility] Bilirubin Test strip Ql (U)O rdered By: Maxim De León on 06-28-2024 Bilirubin Ql (U) Negative Negative [facility] CBC W/Diff, Automatedon - Absolute Lymph 2.36 X10 3/uL Normal 0.83-4.51 [facility] Comment on above: Performed By: #### L 100.0100, L500.2500 #### [facility] [address] [place], [address] Absolute Neut 6.3 X10 3/uL Normal 2.0-7.7 [facility] Comment on above: Performed By: #### L 100.0100, L500.2500 #### [facility] [address] [place], [address] Basophils/100 WBC (Bld) 0.9 % Normal 0-1 [facility] Comment on above: Performed By: #### L 100.0100, L500.2500 #### [facility] [address] [place], [address] Eosinophils/100 WBC (Bld) 2.9 % Normal 0-5 [facility] Comment on above: Performed By: #### L 100.0100, L500.2500 #### [facility] [address] [place], [address] Erythrocyte distribution width (RBC) [Ratio] 13.5 % Normal 11.6-14.6 [facility] Comment on above: Performed By: #### L 100.0100, L500.2500 #### [facility] [address] [place], [address] Hematocrit (Bld) [Volume fraction] 42.0 % Normal 40-54 [facility] Comment on above: Performed By: #### L 100.0100, L500.2500 #### [facility] [address] [place], [address] Hemoglobin (Bld) [Mass/Vol] 14.4 g/dL Normal 13.0-16.5 [facility] Comment on above: Performed By: #### L 100.0100, L500.2500 #### [facility] [address] [place], [address] IG% 0.400 Normal 0.0-0.9 [facility] Comment on above: Result Comment: IG% - Immature Granulocytes (promyelocytes, myelocytes and metamyelocytes) > 1% indicates that a LEFT SHIFT is Present. Performed By: #### L 100.0100, L500.2500 #### [facility] [address] [place], [address] Lymphocytes/100 WBC (Bld) 24.2 % Normal 19-41 [facility] Comment on above: Performed By: #### L 100.0100, L500.2500 #### [facility] [address] [place], [address] MCH (RBC) [Entitic mass] 29.6 pg Normal 27.0-32.0 [facility] Comment on above: Performed By: #### L 100.0100, L500.2500 #### [facility] [address] [place], [address] MCHC (RBC) [Mass/Vol] 34.3 g/dL Normal 32-36 [facility] Comment on above: Performed By: #### L 100.0100, L500.2500 #### [facility] [address] [place], [address] MCV (RBC) [Entitic vol] 86.4 fL Normal 80-94 [facility] Comment on above: Performed By: #### L 100.0100, L500.2500 #### [facility] [address] [place], [address] Monocytes/100 WBC (Bld) 6.7 % Normal 0-10 [facility] Comment on above: Performed By: #### L 100.0100, L500.2500 #### [facility] [address] [place], [address] Neutrophils/100 WBC (Bld) 64.9 % Normal 47-70 [facility] Comment on above: Performed By: #### L 100.0100, L500.2500 #### [facility] [address] [place], [address] Nucleated RBC (Bld) [#/Vol] 0 10*3/uL Normal 0-5 [facility] Comment on above: Performed By: #### L 100.0100, L500.2500 #### [facility] [address] [place], [address] Platelet mean volume (Bld) [Entitic vol] 10.2 fL Normal 6.2-12.0 [facility] Comment on above: Performed By: #### L 100.0100, L500.2500 #### [facility] [address] [place], [address] Platelets (Bld) [#/Vol] 315 10*3/uL Normal 150-450 [facility] Comment on above: Performed By: #### L 100.0100, L500.2500 #### [facility] [address] [place], [address] RBC (Bld) [#/Vol] 4.86 10*6/uL Normal 4.6-6.2 [facility] Comment on above: Performed By: #### L 100.0100, L500.2500 #### [facility] [address] [place], [address] RDW SD 42.5 fl Normal 35.1-43.9 [facility] Comment on above: Performed By: #### L 100.0100, L500.2500 #### [facility] [address] [place], [address] WBC (Bld) [#/Vol] 9.7 10*3/uL Normal 4.4-11.0 [facility] Comment on above: Performed By: #### L 100.0100, L500.2500 #### [facility] [address] [facility] [place], [address] Carbon dioxide, total [Moles /volume] in Central venous bloodOrdered By: Maxim De León on 06-28-2024 CO2 [Moles/Vol] 24.2 mmol/L 21.0-32.0 [facility] Chloride assayOrdered By: Oumar De León on 06-28-2024 Chloride [Moles/Vol] 104 mmol/L 98-108 [facility] Emergency Department Summary on 06-28-2024 Emergency Department Summary [facility] Medical Records Department [address] [facility] [address] Emergency Department Summary 06/28/24 MR#: [id number] Acct: [id number] Name: RUDDY RUVALCABA Rep #: [id number] : 1970 53 From: Maxim De León MD PCP: Jossy Natarajan NP-C Status:REG ER Location: ED HPI History of Present Illness Chief Complaint: Flank Pain Detail of Chief Complaint: Acute right flank pain with nausea and vomiting Informant: patient Onset/Context/Timing Onset: Today Context: Sudden Onset Timing: Intermittent Quality: Pain Location: right flank Current Severity: Severe Maximum Severity: Severe Worsened by: Nothing Relieved by: nothing Associated Symptoms Associated Symptoms: Nausea vomiting Narrative Narrative: Patient is a 53-year-old male. He has history of hypertension who is presently on 300 mg of labetalol 3 times a day and 40 mg of lisinopril twice a day who presents with abrupt onset of right flank pain that started last evening. He states he drank a bunch of water. He believes he passed the stone since his pain resolved. Couple hours prior to presentation he developed severe right flank pain again that radiates anteriorly but not down to the groin. He denies dysuria, frequency, urgency or hematuria. He had nausea and 1 episode of vomiting last night. He is nauseous presently. He denies fever, chills night sweats. He was seen in May and blood pressure at that time was elevated. He was treated with IV hydralazine and p.o. clonidine Patient denies chest pain or upper back pain. Patient denies paresthesia, anesthesia or motor weakness upper or lower extremity. Patient states that every time he had a stone he had to have it surgically removed. Prior similar symptoms: Yes (Kidney stone) Recent Illness/Hospitalization: Yes (Elevated blood pressure) [facility] Medical History Diverticulitis Hypertension Anxiety and depression Osteoarthritis Nephrolithiasis Home Medications ???Medication ???Instructions ???Recorded ???Last Taken ???Type amoxicillin 875 mg-potassium 1 tab PO Q8H #30 tabs 06/26/21 Unk nown Rx clavulanate 125 mg tablet Held on 12/24/22. Instructions: Pt has been DC'd ondansetron 4 mg disintegrating 4 mg PO Q8H PRN PRN Nausea #10 tab s 06/26/21 Unknown Rx tablet cyclobenzaprine 10 mg tablet 10 mg PO TID PRN Muscle Spasm #20 10/22/22 Unknown Rx Held on 12/24/22. TABLETS Instructions: Pt has been DC'd hydrocodone-acetaminophen 5-325mg 1 tab PO Q4H PRN PRN Pain 2 days 10/22/22 Unknown Rx 5mg-325mg #10 TABLETS Held on 12/24/22. Instructions: Pt has been DC'd amlodipine 10 mg tablet 10 mg PO DAILY 12/24/22 Unknown Hi story chlorthalidone 25 mg tablet 25 mg PO DAILY 12/24/22 Unknown Hi story doxycycline hyclate 100 mg capsule 100 mg PO BID #20 caps 12/24/22 Unknown Rx finasteride 5 mg tablet 5 mg PO DAILY 12/24/22 Unknown His tory hydralazine 50 mg tablet 50 mg PO TID 12/24/22 Unknown Hist ory labetalol 200 mg tablet 300 mg PO BID 12/24/22 Unknown His tory lisinopril 10 mg tablet 40 mg PO BID 12/24/22 Unknown Hist ory hydrocodone-acetaminophen 5-325mg 1 tab PO Q6H PRN pain 3 days #12 04/10/23 Unknown Rx 5mg-325mg tabs naproxen 500 mg tablet 500 mg PO BID #14 tabs 06/28/24 Un known Rx oxycodone-acetaminophen 5 mg-325 1 tab PO Q6H PRN PRN Pain 3 days 0 06/28/24 Unknown Rx mg tablet #12 TABLETS Allergy/AdvReac Type Severity Reaction Status Date / Time No Known Allergies Allergy Verified 06/28/24 13:45 Family History no significant family his Surgical History History of nasal surgery Hx of arthroscopic knee surgery History of repair of ACL Hx of total knee replacement Social History household members: spouse Smoking Status: Heavy Smoker (>10/day) ROS ROS ED Constitutional Constitutional ED: Denies chills, fever(s), subjective, sweats or weight loss Eyes Eyes: Denies blurry vision, change in vision or diplopia ENT ENT ED: Denies rhinorrhea or sore throat Cardiovascular Cardiovascular: Denies chest pain, orthopnea, palpitations, paroxysmal nocturnal dyspnea or racing heartbeat Respiratory/Chest Respiratory/Chest: Denies cough, dyspnea, dyspnea on exertion, orthopnea or paroxysmal nocturnal dyspnea Gastrointestinal Gastrointestinal: Reports abdominal pain, nausea and vomiting; Denies constipation, diarrhea or melena Genitourinary Genitourinary ED: Denies dysuria, hematuria or urinary frequency Musculoskeletal Musculoskeletal: Reports other Details: Right flank pain ; Denies arthralgias, back pain, myalgias or neck pain Integumentary Denies rash Neurologic Neurologic: Denies head (more content not included)... Normal [facility] Eosinophil percentageOrdered By: Maxim De León on 06-28-2024 Eosinophils/100 WBC (Bld) 2.9 % 0-5 [facility] Erythrocyte distribution wid th (RBC) [Ratio]Ordered By: Maxim De León on 06-28-2024 Erythrocyte distribution width (RBC) [Entitic vol] 42.5 fL 35.1-43.9 [facility] Erythrocyte distribution wid th ratioOrdered By: Maxim De León on 06-28-2024 Erythrocyte distribution width (RBC) [Ratio] 13.5 % 11.6-14.6 [facility] Erythrocyte distribution wid th standard deviationOrdered By: Maximsabino De León on 06-28-2024 Erythrocyte distribution width (RBC) [Ratio] 42.5 fl 35.1-43.9 [facility] Estimation of creatinine krunal aranceOrdered By: Maxim De León on 06-28-2024 Estimated Creatinine Clearance Calc 91.58 ml/min 50-250 [facility] GFR/1.73 sq M.predicted aleah g non-blacks MDRD (S/P/Bld) [Vol rate/Area]Ordered By: Maxim De León on 06-28-2024 Estimated GFR (MDRD) Non-Af Amer [address] >60 [facility] Comment on above: mL/min/1.73m2 CKD-EP I Creatinine Equation (2020) Glomerular filtration rate ( GFR) estimation/1.73 sq m using serum, plasma, or whole bOrdered By: Maxim De León on 06-28-2024 GFR/1.73 sq M.predicted among non-blacks MDRD (S/P/Bld) [Vol rate/Area] 74 mL/min/{1.73_m2} >60 [facility] Comment on above: mL/min/1.73m2 CKD-EP I Creatinine Equation (2020) Glucose Ql (U)Ordered By: Oumar De León on 06-28-2024 Urine Glucose (UA) Normal mg/dl Normal [facility] Hematocrit Auto (Bld) [Volum e fraction]Ordered By: Maxim De León on 06-28-2024 Hematocrit (Bld) [Volume fraction] 42.0 % 40-54 [facility] Hemoglobin measurementOrdere d By: Maxim De León on 06-28-2024 Hemoglobin (Bld) [Mass/Vol] 14.4 g/dL 13.0-16.5 [facility] Immature granulocytes/100 WB C Auto (Bld)Ordered By: Maxim De León on 06-28-2024 Immature granulocytes/100 WBC (Bld) 0.400 % 0.0-0.9 [facility] Comment on above: IG% - Immature Granu locytes (promyelocytes, myelocytes and metamyelocytes) > 1% indicates that a LEFT SHIFT is Present. Ketones Test strip Ql (U)Ord ered By: Maxim De León on 06-28-2024 Ketones Ql (U) Negative Negative [facility] Lymphocytes Auto (Unsp spec) [#/Vol]Ordered By: Maxim De León on 06-28-2024 Lymphocytes (Bld) [#/Vol] 2.36 10*3/uL 0.83-4.51 [facility] Lymphocytes/100 WBC Auto (Un sp spec)Ordered By: Maxim De León on 06-28-2024 Lymphocytes/100 WBC (Bld) 24.2 % 19-41 [facility] MCV (mean corpuscular volume ) determinationOrdered By: Maxim De León on 06-28-2024 MCV (RBC) [Entitic vol] 86.4 fL 80-94 [facility] Mean corpuscular hemoglobin (MCH) determinationOrdered By: Maxim De León on 06-28-2024 MCH (RBC) [Entitic mass] 29.6 pg 27.0-32.0 [facility] Mean corpuscular hemoglobin concentration (MCHC) determinationOrdered By: Maxim De León on 06-28-2024 MCHC (RBC) [Mass/Vol] 34.3 g/dL 32-36 [facility] Mean platelet volume determi nationOrdered By: Maxim De León on 06-28-2024 Platelet mean volume (Bld) [Entitic vol] 10.2 fL 6.2-12.0 [facility] Microscopic analysis of urin e for red blood cells (RBC)Ordered By: Maxim De León on 06-28-2024 Microscopic analysis of urine for red blood cells (RBC) 5-10 SEEN /hpf 0-5 [facility] Monocyte percentageOrdered B y: Maxim De León on 06-28-2024 Monocytes/100 WBC (Bld) 6.7 % 0-10 [facility] Mucus LM Ql (Urine sed)Order ed By: Maxim De León on 06-28-2024 Mucus Ql (Urine sed) 1+ /hpf [facility] Neutrophil percentageOrdered By: Maxim De León on 06-28-2024 Neutrophils/100 WBC (Bld) 64.9 % 47-70 [facility] Nitrite Test strip Ql (U)Ord ered By: Maxim De León on 06-28-2024 Nitrite Ql (U) Negative Negative [facility] Nucleated red blood cell per centageOrdered By: Maxim De León on 06-28-2024 Nucleated RBC/100 WBC (Bld) [Ratio] 0 % 0-5 [facility] Platelet countOrdered By: Oumar De León on 06-28-2024 Platelets (Bld) [#/Vol] 315 10*3/uL 150-450 [facility] Potassium (Unsp spec) [Mass/ Vol]Ordered By: Maxim De León on 06-28-2024 Potassium [Moles/Vol] 4.4 mmol/L 3.3-5.1 [facility] Potassium measurement (mass/ volume)Ordered By: Maxim De León on 06-28-2024 Potassium (Unsp spec) [Mass/Vol] 4.4 mmol/L 3.3-5.1 [facility] Protein Test strip Ql (U)Ord ered By: Maxim De León on 06-28-2024 Protein Ql (U) 30 mg/dl High Negative [facility] RBC Auto (Bld) [#/Vol]Ordere d By: Maxim De León on 06-28-2024 RBC (Bld) [#/Vol] 4.86 10*6/uL 4.6-6.2 [facility] Serum creatinine measurement (mass/volume)Ordered By: Maxim De León on 06-28-2024 Creatinine [Mass/Vol] 1.16 mg/dL 0.70-1.20 [facility] Serum glucose measurement (m ass/volume)Ordered By: Maxim De León on 06-28-2024 Glucose [Mass/Vol] 126 mg/dL High 70-99 [facility] Serum or plasma calcium carlos alberto urement (mass/volume)Ordered By: Maxim De León on 06-28-2024 Calcium [Mass/Vol] 9.6 mg/dL 7.6-11.0 [facility] Serum or plasma urea nitroge n measurement (mass/volume)Ordered By: Maxim De León on 06-28-2024 Urea nitrogen [Mass/Vol] 20 mg/dL High 4-19 [facility] Sodium levelOrdered By: Maxim De León on 06-28-2024 Sodium [Moles/Vol] 140 mmol/L 133-145 [facility] Squamous epithelial cells de tection in urine sediment by light microscopyOrdered By: Maxim De León on 06-28-2024 Epithelial cells.squamous LM Ql (Urine sed) 0-5 SEEN /hpf 0-5 [facility] Urinalysis, Completeon 06-28 BACTERIA RARE Normal None Seen [facility] Comment on above: Order Comment: CLEAN CATCH Performed By: #### L 400.0001 #### [facility] [address] [place], [address] EPI,SQUAMOUS 0-5 SEEN Normal 0-5 [facility] Comment on above: Order Comment: CLEAN CATCH Performed By: #### L 400.0001 #### [facility] [address] [facility] [address] Mucus Ql (Urine sed) 1+ /hpf Normal [facility] Comment on above: Order Comment: CLEAN CATCH Performed By: #### L 400.0001 #### [facility] [address] [facility] [address] RBC 5-10 SEEN Normal 0-5 [facility] Comment on above: Order Comment: CLEAN CATCH Performed By: #### L 400.0001 #### [facility] [address] [facility] [address] WBC 0-5 SEEN Normal 0-5 [facility] Comment on above: Order Comment: CLEAN CATCH Performed By: #### L 400.0001 #### [facility] [address] [facility] [id number] Urine blood detectionOrdered By: Maxim De León on 06-28-2024 Urine Occult Blood 150 /ul High Negative [facility] Urine clarityOrdered By: Maximsabino De León on 06-28-2024 Clarity (U) Clear Clear [facility] Urine color determinationOrd ered By: Maxim De León on 06-28-2024 Color (U) Yellow Yellow [facility] Urine glucose detectionOrder ed By: Maxim De León on 06-28-2024 Glucose Ql (U) Normal mg/dl Normal [facility] Urine leukocyte esterase det ection by dipstickOrdered By: Maxim De León on 06-28-2024 Leukocyte esterase Test strip Ql (U) Negative Negative [facility] Urine pHOrdered By: Maxim Gall sabino on 06-28-2024 pH (U) 6.0 [pH] 5.0 - 8.0 [facility] Urine sediment bacteria coun t by microscopy (number/high power field)Ordered By: Maxim De León on 06-28-2024 Bacteria LM.HPF (Urine sed) [#/Area] RARE /hpf None Seen [facility] Urine specific gravity measu rementOrdered By: Maximsabino De León on 06-28-2024 Specific gravity (U) [Rel density] 1.015 1.002-1.030 [facility] Urine urobilinogen measureme ntOrdered By: Maxim De León on 06-28-2024 Urobilinogen Ql (U) Normal mg/dl Normal [facility] Urobilinogen Ql (U)Ordered B y: Maxim De León on 06-28-2024 Urine Urobilinogen Normal mg/dl Normal [facility] White blood cell (WBC) count Ordered By: Maxim De León on 06-28-2024 WBC (Bld) [#/Vol] 9.7 10*3/uL 4.4-11.0 [facility] White blood cell countOrdere d By: Maxim De León on 06-28-2024 White blood cell count 0-5 SEEN /hpf 0-5 [facility] CNOVon 06-11-2024 CNOV Office Visit (ORNA ) -- RUDDY RUVALCABA ([id number]) 1970 M Date Time Provider Department 06/11/24 2:30 PM NOAH DE ANDA During your visit today, we recorded the following information about you: Noah De Anda APRN.CNP 06/14/2024 7:54 AM Signed Orthopaedic Office Note: June 14, 2024 7:47 AM Ruddy Ruvalcaba 53 year old History: Justice returns today for his left knee. He is well known to me having undergone a L TKA with Dr. Delgado in September of last year. Please see previous notes for full history. In short, he was at a point where he was actually doing quite well with minimal discomfort in the knee. Unfortunately, he sustained a mechanical fall roughly 4 weeks ago. X-rays were ordered and at that time there was concern for fracture. Subsequent CT scan was ordered and confirmed no fracture. He continues to complain of pain and discomfort. He is here today for evaluation. Subjective: Left knee pain Updated ROS: No changes Updated Exam: Left Lower Extremity: KNEE EXAM: Left: Incision well healed. No erythema or warmth Minimal swelling Range of motion is 0 degrees in extension and 115 degrees of flexion. Pain with ROM: No Effusion: None Tender to the palpation of: generalized hyperalgesia, most notably lateral to incision and extending down towards the midshaft tibia Pain with patellar compression: No Stability: Anterior/Posterior stable and Varus/Valgus stable Hip Exam: flexion to 100+ degrees, full extension, internal/external rotation adequate and no pain with log roll Neurovascular Status: Sensation Intact and Moves foot and ankle up AND down Updated Imaging: None today Assessment and Plan: Left knee pain Justice and I discussed his left knee today. Last x-rays and CT appeared stable. Mechanically his knee is functioning well for him. Unfortunately, I do believe his mechanical fall has stirred up his RSD. He has extreme sensitivity over the lateral aspect of the knee. His pain at rest just sitting is a 7 subjectively. There are no signs of infection. He has previously been aspirated. I would like for him to see pain management for evaluation for this. In the meantime, I have prescribed a prednisone taper and a short prescription of [place] to see if we can quiet things down. He can follow back up with our office after pain management evaluation. All questions answered. Noah De Anda APRN.CNP Orthopaedic Surgery I spent a total of approximately 25 minutes on the date of the service which included preparing to see the patient, [id number] patient care, completing clinical documentation, obtaining and/or reviewing separately obtained history, performing a medically appropriate examination, counseling and educating the patient/family/caregiver, ordering medications, tests, or procedures, independently interpreting results (not separately reported), communicating results to the patient/family/caregiver, and care coordination (not separately reported). Allergies As of Date: 06/11/2024 (No Known Allergies) Date Reviewed: 06/11/2024 Reviewed by: Najma Freeman MA - Fully Assessed Reason for Visit: Knee Pain [132] Knee Replacement [363] Follow Up [171] Primary Visit Diagnosis:Pain due to total left knee replacement, sequela [T84.84XS, Z96.652] Other Visit Diagnoses:Complex regional pain syndrome type 1 of left lower extremity [G90.522] Pain and swelling of left knee [M25.562, M25.462] Order(s):CONSULT TO PAIN MGT [[id number]] Order #: [id number]: 1 FUTURE predniSONE (DELTASONE) 20 mg tabletTake 3 tablets by mouth once daily for 3 days, THEN 2 tablets once daily for 3 days, THEN 1 tablet once daily for 3 days.Disp: 18 tabletRfl: 0 HYDROcodone-acetaminophen (NORCO) 5-325 mg per tabletTake 1 tablet by mouth two times a day as needed for pain for up to 7 days.Disp: 14 tabletRfl: 0 Prescriptions as of 06/14/2024 - predniSONE (DELTASONE) 20 mg tablet Take 3 tablets by mouth once daily for 3 days, THEN 2 tablets once daily for 3 days, THEN 1 tablet once daily for 3 days. - HYDROcodone-acetaminophen (NORCO) 5-325 mg per tablet Take 1 tablet by mouth two times a day as needed for pain for up to 7 days. - labetalol (TRANDATE) 200 mg tablet Take 1.5 tablets by mouth three times a day. - nabumetone (RELAFEN) 500 mg tablet Take 1 tablet by mouth two times a day. - lisinopril (ZESTRIL) 40 mg tablet Take 1 tablet by mouth two times a day. - acetaminophen (TYLENOL) 500 mg tablet Take 2 tablets by mouth every 8 hours as needed for pain. - erythromycin (ROMYCIN) 5 mg/gram (0.5 %) ophthalmic ointment Use 1 Drop in the right eye daily at bedtime. Patient should start on September 22, 2023. Problem List As Of Date 06/11/2024 Noted Resolved RSD (reflex sympathetic dystrophy) [G90.50] 11/10/2003 Uncontrolled hypertension [I10] 10/01/2015 Kidney stones [N20 (more content not included)... Normal [facility] CNOVon 06-07-2024 CNOV Office Visit (ROLANDA ZHANG) -- RUDDY RUVALCABA ([id number]) 1970 M Date Time Provider Department 06/07/24 10:00 AM JIHAN GODWIN During your visit today, we recorded the following information about you: Temperature Pulse Respiration Blood pressure 98.1 degrees 91/minute 18/minute 162/102 Jihan Godwin, SUPERSONIC ENGINEER.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 06/16/2024 10:55 PM Addendum Subjective Ruddy Ruvalcaba is a 53 year old male here today for left knee pain and swelling. I reviewed past medical, surgical, social, and family histories today and updated chart. Allergies, chronic medications, and supplements were also reviewed. HPI Left Knee Pain and Swelling: - Underwent left knee replacement on 09/17. - Fell on ice in April, landing on buttocks; knee "gave out." Denies hitting knee to the ground - Post-fall: - X-ray and CT showed fluid accumulation and ACL stretching. - Managed with pain medication; improved until last weekend. - Recent exacerbation of pain and swelling over the weekend; no new injury reported. - Pain localized to the lateral side of the knee; worsens with activity. - Previous fluid drainage post-surgery at [facility] [place]. - Denies history of knee joint infections or blood clots. - History of right knee replacement two years ago; experiencing popping and clicking, requiring revision. Patient is requesting pain medication today. He has been taking OTC ibuprofen and acetaminophen with minimal relief. He states that he contacted his orthopedic team and they advised he follow-up with PCP so that he could get pain medications until he is seen by them on Monday. Hypertension: - Managed with lisinopril and labetalol. - Lisinopril refilled recently; labetalol refill needed. - Missed appointment with Dr. Munguia in January led to running out of labetalol. - Last kidney function check in December showed improvement to normal range. - Light smoker, consuming a few cigarettes a day. PAST MEDICAL HISTORY Diagnosis Date Bilateral renal stones Class 2 severe obesity due to excess calories with serious comorbidity and body mass index (BMI) of 35.0 to 35.9 in adult (HCC) MONROY (dyspnea on exertion) Essential hypertension 10/01/2015 Fatty infiltration of liver 10/22/2022 Hypertension, unspecified type Kidney stones Mixed hyperlipidemia Nicotine use disorder Obesity, Class I, BMI 30-34.9 Reflex sympathetic dystrophy of other specified site [...] Right 12/01/2021 Right total robotic knee replacement TOTAL KNEE REPLACEMENT Left 09/18/2023 ALLERGIES Patient has no known allergies. MEDICATIONS lisinopril (ZESTRIL) 40 mg tablet Take 1 tablet by mouth two times a day. labetalol (TRANDATE) 200 mg tablet Take 1.5 tablets by mouth three times a day. acetaminophen (TYLENOL) 500 mg tablet Take 2 tablets by mouth every 8 hours as needed for pain. erythromycin (ROMYCIN) 5 mg/gram (0.5 %) ophthalmic ointment Use 1 Drop in the right eye daily at bedtime. Patient should start on September 22, 2023. FAMILY HISTORY Problem Relation Age of Onset other (negative) Father Social History Tobacco Use Smoking status: Every Day Current packs/day: 0.25 Average packs/day: 0.3 packs/day for 35.6 years (8.9 ttl pk-yrs) Types: Cigarettes Start date: 10/20/1988 Smokeless tobacco: Never Vaping Use Vaping status: Never Used Substance Use Topics Alcohol use: Not Currently Drug use: Not Currently Types: Marijuana Review of Systems Constitutional: Negative for appetite change, chills, fatigue, fever and unexpected weight change. HENT: Negative for congestion, ear pain, rhinorrhea and sore throat. Eyes: Negative for pain, discharge, itching and visual disturbance. Respiratory: Negative for cough, shortness of breath and wheezing. Cardiovascular: Negative for chest pain, palpitations and leg swelling. Gastrointestinal: Negative for abdominal pain, constipation, diarrhea, nausea and vomiting. Genitourinary: Negative for difficulty urinati (more content not included)... Normal [facility] Pasquale 06-06-2024 [facility] Telephone (AGFAMPLE) -- RUDDY RUVALCABA ([id number]) 1970 M Date Time Provider Department 06/06/24 JOSSY NATARAJAN During your visit today, we recorded the following information about you: Esme Faria MA 06/06/2024 11:29 AM Signed Patient called he sent a [employer] message to his Ortho today for pin medications but they refused till they discuss at NOV. They told him to contact PCP. Please advise GALINA Car Brittny A, APRN.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 06/06/2024 1:04 PM Signed I cannot prescribe anything without seeing him. I haven't seen him since December. Allergies As of Date: 06/06/2024 (No Known Allergies) Date Reviewed: 01/09/2024 Reviewed by: Jossy Natarajan APRN.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 - Fully Assessed Reason for Visit: Medication Question [1478] Patient Question [1477] Prescriptions as of 06/06/2024 - labetalol (TRANDATE) 200 mg tablet Take 1.5 tablets by mouth three times a day. - acetaminophen (TYLENOL) 500 mg tablet Take 2 tablets by mouth every 8 hours as needed for pain. - erythromycin (ROMYCIN) 5 mg/gram (0.5 %) ophthalmic ointment Use 1 Drop in the right eye daily at bedtime. Patient should start on September 22, 2023. - lisinopril (ZESTRIL) 40 mg tablet Take 1 tablet by mouth twice daily. Problem List As Of Date 06/06/2024 Noted Resolved RSD (reflex sympathetic dystrophy) [G90.50] [...] 12/29/2021 Nicotine use disorder, F17.2 [F17.200] 04/01/2022 Hypertensive urgency [I16.0] 08/31/2022 Headache [R51.9] 08/31/2022 Mixed hyperlipidemia [E78.2] 09/01/2022 Left flank pain [R10.9] 11/17/2022 Hypertension, essential [I10] 07/16/2023 Left knee pain [M25.562] 07/16/2023 Left hamstring muscle strain [S76.312A] 07/16/2023 Left leg pain [M79.605] 07/16/2023 MONROY (dyspnea on exertion) [R06.09] 08/28/2023 S/P total knee arthroplasty, left [Z96.652] 09/19/2023 Post-traumatic osteoarthritis of left knee [M17*11/08/2023 Encounter Status:Closed by ESME FARIA on 06/06/24 Normal [facility] CT KNEE WO IVCON LTon 2024 CT KNEE WO IVCON LT * * *Final Report* * * DATE OF EXAM: May 10 2024 4:09PM [facility] 0083 - CT KNEE WO IVCON LT / PROCEDURE REASON: multiple diagnoses * * * * Physician Interpretation * * * * CT KNEE WO IVCON LT 05/10/2024 4:09 PM HISTORY: Acute pain of left knee Pain due to total left knee replacement, sequela Pain due to total left knee replacement, sequela TECHNIQUE: Non-contrast axial CT imaging of the left knee was performed. Coronal and sagittal reconstructions were performed. Contrast: None. CT Radiation dose: Integrated Dose-length product (DLP) for this visit = 550 mGy*cm. CT Dose Reduction Employed: Automated exposure control(AEC) and iterative recon COMPARISON: Left knee radiographs dated 05/07/2024. RESULT: Status post total knee arthroplasty with orthopedic hardware in standard position and alignment. No periprosthetic lucency or fracture. More remote changes of anterior cruciate ligament reconstruction. Small to moderate-sized joint effusion. No significant Pittman's cyst. Extensor mechanism is grossly intact. No muscle fatty atrophy. IMPRESSION: Knee arthroplasty without evidence of hardware-related complication. Nonspecific joint effusion. Bi Tester: VÍCTOR Transcribe Date/Time: May 10 2024 4:21P Dictated by : PHILL JERRY MD This examination was interpreted and the report reviewed and electronically signed by: PHILL JERRY MD on May 10 2024 4:26PM EST [id number] Normal [facility] 05-07-2024 [facility] Telephone (ANDRES) -- RUDDY RUVALCABA ([id number]) 1970 M Date Time Provider Department 05/07/24 HEATH DELGADO During your visit today, we recorded the following information about you: Micaela Don 05/07/2024 2:25 PM Signed Patient had a TKA on 09-18-2023. He slipped on the ice last night and the knee went out from underneath him. The knee didn't actually hit the ice but he is having a lot of pain and it is sore . The pain seems to be on the outside of the knee. He can be bear weight on the knee, very little, but has pain. He isn't sure if he can get an appointment or he should go to the ED and have it checked out. He would like some direction and a call back at [phone]. Micaela Paige [facility] Bryant Guerrier RN 05/08/2024 3:59 PM Addendum XR order placed. Let pt know to get XRs. Told him to continue RICE and anti-inflammatories/Tyleno l. He verbalized understanding. Bryant Guerrier RN 05/08/2024 4:00 PM Addendum Pt calling CHYNA quan. He got the XRs done. He is doing what I suggsted yesterday and is still in a lot of pain and swelling. He hasn't gotten any relief He's asking what he should do. He said his pain is to the point where he is contemplating going to the ER for some relief. Please advise. Noah De Anda APRN.AINSLEY 05/09/2024 7:54 AM Addendum Please contact and assist in scheduling STAT CT scan of left knee. I attempted to contact patient but could not get through Noah De Anda APRN.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 May 09, 2024 7:51 AM Noah De Anda APRN.[facility] 05/09/2024 7:52 AM Signed Addended by: NOAH DE ANDA on: 05/09/2024 07:52 AM Modules accepted: Orders Cinthia Multani 05/09/2024 8:06 AM Signed Lvm for patient to schedule stat ct scan. Johnson Multanielle 05/09/2024 9:51 AM Signed Patient is asking if we are able to send some pain medication for some relieve from falling on his knee. If able to can we send the pharmacy on file. Noah De Anda APRN.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 05/09/2024 11:12 AM Signed Oxycodone sent to pharmacy Noah De Anda APRN.[facility] May 09, 2024 11:12 AM Noah De Anda APRN.[facility] 05/09/2024 11:12 AM Signed Addended by: NOAH DE ANDA on: 05/09/2024 11:12 AM Modules accepted: Orders Allergies As of Date: 05/07/2024 (No Known Allergies) Date Reviewed: 01/09/2024 Reviewed by: Jossy Natarajan APRN.CNP - Fully Assessed Reason for Visit: Patient Question [8872] Cmt: Patient recent TKA / had fall on Ice Primary Visit Diagnosis:Acute pain of left knee [M25.562] Other Visit Diagnosis:Pain due to total left knee replacement, sequela [T84.84XS, Z96.652] Order(s):XR KNEE POST OP 3V AP/LAT/MERCHANT LEFT [[id number]] Order #: [id number] FUTURE CT KNEE WO IVCON LEFT [[id number]] Order #: [id number] FUTURE oxyCODONE IR (ROXICODONE) 5 mg immediate release tabletTake 1 tablet by mouth every 8 hours as needed for pain for up to 5 days. for pain.Disp: 15 tabletRfl: 0 Prescriptions as of 05/09/2024 - oxyCODONE IR (ROXICODONE) 5 mg immediate release tablet Take 1 tablet by mouth every 8 hours as needed for pain for up to 5 days. for pain. - labetalol (TRANDATE) 200 mg tablet Take 1.5 tablets by mouth three times a day. - acetaminophen (TYLENOL) 500 mg tablet Take 2 tablets by mouth every 8 hours as needed for pain. - erythromycin (ROMYCIN) 5 mg/gram (0.5 %) ophthalmic ointment Use 1 Drop in the right eye daily at bedtime. Patient should start on September 22, 2023. - lisinopril (ZESTRIL) 40 mg tablet Take 1 tablet by mouth twice daily. Problem List As Of Date 05/07/2024 Noted Resolved RSD (reflex sympathetic dystrophy) [G90.50] [...] 12/29/2021 Nicotine use disorder, F17.2 [F17.200] 04/01/2022 Hypertensive urgency [I16.0] 08/31/2022 Headache [R51.9] 08/31/2022 Mixed hyperlipidemia [E78.2] 09/01/2022 Left flank pain [R10.9] 11/17/2022 Hypertension, essential [I10] 07/16/2023 Left knee pain [M25.562] 07/16/2023 Left hamstring muscle strain [S76.312A] 07/16/2023 Left leg pain [M79.605] 07/16/2023 MONROY (dyspnea on exertion) [R06.09] 08/28/2023 S/P total knee arthroplasty, left [Z96.652] 09/19/2023 Post-traumatic osteoarthritis of left knee [M17*11/08/2023 Prescriptions ordered this encounter Disp Refills Start End OXYCODONE 5 MG TABLET 15 t* 0 05/09/ (more content not included)... Normal [facility] XR KNEE 3V AP/LAT/MERCHANT L Ton 05-07-2024 XR KNEE 3V AP/LAT/MERCHANT LT * * *Final Report* * * DATE OF EXAM: May 07 2024 4:11PM [facility] [id number] - XR KNEE 3V AP/LAT/MERCHANT LT / PROCEDURE REASON: Acute pain of left knee * * * * Physician Interpretation * * * * Left knee History: Acute pain of left knee Prior study: 12/06/2023 Finding: Lateral and weight-bearing AP and sunrise views were performed. Status post total knee replacement with patellar resurfacing. Alignment is anatomic. No acute finding. IMPRESSION: Status post total knee replacement. No acute finding. Bi Tester: PSCB Transcribe Date/Time: May 10 2024 4:27P Dictated by : AISLINN TURNER MD This examination was interpreted and the report reviewed and electronically signed by: AISLINN TURNER MD on May 10 2024 4:28PM EST [id number] Normal [facility] CNTHERAPYon 02-12-2024 CNTHERAPY OT/PT/Speech Visit ( PTWS) -- RUDDY RUVALCABA ([id number]) 1970 M Date Time Provider Department 02/12/24 2:00 PM COREY [facility] PT[facility]IO Date Time Provider Department Center 02/12/2024 2:00 PM [id number], [facility] [place] Reason for Visit: PT Eval [747] Primary Visit Diagnosis:Status post knee replacement, unspecified laterality [Z96.659] Allergies As of Date: 02/12/2024 (No Known Allergies) Date Reviewed: 01/09/2024 Reviewed by: Jossy Natarajan APRN.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 - Fully Assessed Prescriptions as of 02/12/2024 - oxyCODONE IR (ROXICODONE) 5 mg immediate release tablet Take 1 tablet by mouth once daily as needed for pain for up to 7 days. for pain. - labetalol (TRANDATE) 200 mg tablet Take 1.5 tablets by mouth three times a day. - acetaminophen (TYLENOL) 500 mg tablet Take 2 tablets by mouth every 8 hours as needed for pain. - erythromycin (ROMYCIN) 5 mg/gram (0.5 %) ophthalmic ointment Use 1 Drop in the right eye daily at bedtime. Patient should start on September 22, 2023. - lisinopril (ZESTRIL) 40 mg tablet Take 1 tablet by mouth twice daily. Normal [facility]20[facility] -- RUDDY RUVALCABA ([id number]) 1970 M Date Time Provider Department 01/18/24 EDGAR SIMS AGPSYCWM During your visit today, we recorded the following information about you: Allergies As of Date: 01/18/2024 (No Known Allergies) Date Reviewed: 01/09/2024 Reviewed by: Jossy Natarajan APRN.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 - Fully Assessed Reason for Visit: Appointment [186] Cmt: Left second voice mail for patient to call for an assessment at [email or web address].cc Prescriptions as of 01/18/2024 - oxyCODONE IR (ROXICODONE) 5 mg immediate release tablet Take 1 tablet by mouth once daily as needed for pain for up to 7 days. 1 tablet per day as needed - labetalol (TRANDATE) 200 mg tablet Take 1.5 tablets by mouth three times a day. - acetaminophen (TYLENOL) 500 mg tablet Take 2 tablets by mouth every 8 hours as needed for pain. - erythromycin (ROMYCIN) 5 mg/gram (0.5 %) ophthalmic ointment Use 1 Drop in the right eye daily at bedtime. Patient should start on September 22, 2023. - lisinopril (ZESTRIL) 40 mg tablet Take 1 tablet by mouth twice daily. Problem List As Of Date 01/18/2024 Noted Resolved RSD (reflex sympathetic dystrophy) [G90.50] [...] 12/29/2021 Nicotine use disorder, F17.2 [F17.200] 04/01/2022 Hypertensive urgency [I16.0] 08/31/2022 Headache [R51.9] 08/31/2022 Mixed hyperlipidemia [E78.2] 09/01/2022 Left flank pain [R10.9] 11/17/2022 Hypertension, essential [I10] 07/16/2023 Left knee pain [M25.562] 07/16/2023 Left hamstring muscle strain [S76.312A] 07/16/2023 Left leg pain [M79.605] 07/16/2023 MONROY (dyspnea on exertion) [R06.09] 08/28/2023 S/P total knee arthroplasty, left [Z96.652] 09/19/2023 Post-traumatic osteoarthritis of left knee [M17*11/08/2023 Encounter Status:Closed by VERÓNICA SALEH on 01/18/24 [facility] Pasquale 01-15-2024 [facility] Telephone (AGFAMPLE) -- PEGRUDDY ([id number]) 1970 M Date Time Provider Department 01/15/24 JOSSY NATARAJAN During your visit today, we recorded the following information about you: Luiz Polanco MA 01/15/2024 9:05 AM Signed ----- Message from Jossy Natarajan APRN.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 sent at 01/14/2024 3:05 PM EDT ----- PSA was normal CMP- kidney function improved Vitmain D still slightly low- would like for him to take 2,000 international unit(s) daily OTC Triglycerides and LDL are slightly elevated. Continue to work on diet and smoking cessation. Luiz Polanco MA 01/15/2024 9:06 AM Signed Lm on pt. Vm to contact office or check my chart message for results . GALINA Salazar Mary, MA 01/15/2024 11:36 AM Signed Patient notified. Luiz Polanco MA Allergies As of Date: 01/15/2024 (No Known Allergies) Date Reviewed: 01/09/2024 Reviewed by: Jossy Natarajan APRN.AINSLEY - Fully Assessed Reason for Visit: Results [95] Prescriptions as of 01/15/2024 - oxyCODONE IR (ROXICODONE) 5 mg immediate release tablet Take 1 tablet by mouth once daily as needed for pain for up to 7 days. 1 tablet per day as needed - labetalol (TRANDATE) 200 mg tablet Take 1.5 tablets by mouth three times a day. - acetaminophen (TYLENOL) 500 mg tablet Take 2 tablets by mouth every 8 hours as needed for pain. - erythromycin (ROMYCIN) 5 mg/gram (0.5 %) ophthalmic ointment Use 1 Drop in the right eye daily at bedtime. Patient should start on September 22, 2023. - lisinopril (ZESTRIL) 40 mg tablet Take 1 tablet by mouth twice daily. Problem List As Of Date 01/15/2024 Noted Resolved RSD (reflex sympathetic dystrophy) [G90.50] [...] 12/29/2021 Nicotine use disorder, F17.2 [F17.200] 04/01/2022 Hypertensive urgency [I16.0] 08/31/2022 Headache [R51.9] 08/31/2022 Mixed hyperlipidemia [E78.2] 09/01/2022 Left flank pain [R10.9] 11/17/2022 Hypertension, essential [I10] 07/16/2023 Left knee pain [M25.562] 07/16/2023 Left hamstring muscle strain [S76.312A] 07/16/2023 Left leg pain [M79.605] 07/16/2023 MONROY (dyspnea on exertion) [R06.09] 08/28/2023 S/P total knee arthroplasty, left [Z96.652] 09/19/2023 Post-traumatic osteoarthritis of left knee [M17*11/08/2023 Encounter Status:Closed by LUIZ POLANCO on 01/15/24 [facility] 01-12-2024 [facility] Telephone (AGPSYCWM) -- RUDDY RUVALCABA ([id number]) 1970 M Date Time Provider Department 01/12/24 EDGAR SIMS AGPSYCWM During your visit today, we recorded the following information about you: Allergies As of Date: 01/12/2024 (No Known Allergies) Date Reviewed: 01/09/2024 Reviewed by: Jossy Natarajan APRN.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 - Fully Assessed Reason for Visit: Appointment [186] Cmt: Left voice mail for patient to call for an assessment at [facility]. cc Prescriptions as of 01/12/2024 - oxyCODONE IR (ROXICODONE) 5 mg immediate release tablet Take 1 tablet by mouth once daily as needed for pain for up to 7 days. 1 tablet per day as needed - labetalol (TRANDATE) 200 mg tablet Take 1.5 tablets by mouth three times a day. - acetaminophen (TYLENOL) 500 mg tablet Take 2 tablets by mouth every 8 hours as needed for pain. - erythromycin (ROMYCIN) 5 mg/gram (0.5 %) ophthalmic ointment Use 1 Drop in the right eye daily at bedtime. Patient should start on September 22, 2023. - lisinopril (ZESTRIL) 40 mg tablet Take 1 tablet by mouth twice daily. Problem List As Of Date 01/12/2024 Noted Resolved RSD (reflex sympathetic dystrophy) [G90.50] [...] 12/29/2021 Nicotine use disorder, F17.2 [F17.200] 04/01/2022 Hypertensive urgency [I16.0] 08/31/2022 Headache [R51.9] 08/31/2022 Mixed hyperlipidemia [E78.2] 09/01/2022 Left flank pain [R10.9] 11/17/2022 Hypertension, essential [I10] 07/16/2023 Left knee pain [M25.562] 07/16/2023 Left hamstring muscle strain [S76.312A] 07/16/2023 Left leg pain [M79.605] 07/16/2023 MONROY (dyspnea on exertion) [R06.09] 08/28/2023 S/P total knee arthroplasty, left [Z96.652] 09/19/2023 Post-traumatic osteoarthritis of left knee [M17*11/08/2023 Encounter Status:Closed by VERÓNICA SALEH on 01/12/24 [facility] 25(OH)D3 [facility] 2023 25-hydroxyvitamin D3 [Mass/Vol] 29.1 ng/mL Low 31.0-80.0 [facility] Comment on above: Order Comment: Speci men Type: BLOOD SPECIMENOrdering Facility: [facility] Address: [address] [place] [address] Result Comment: Clas sification of 25 [place] Vitamin D status: Deficiency/Insufficiency: < or = 30 ng/ml. Sufficiency/Optimal Levels: 31-80 ng/mL Toxicity: > 100 ng/mL. Test performed by chemiluminescent immunoassay. Performed By: #### 1 989-3 ####[facility] LABCLIA [id number] [facility] [id number] [place] Comprehensive metabolic 2000 panelon 01-11-2024 Albumin [Mass/Vol] 4.5 g/dL Normal 3.9-4.9 [facility] Comment on above: Order Comment: Speci men Type: BLOOD SPECIMEN Ordering Facility: [facility] Address: [address] [place], [place] [address] Performed By: #### 2 4362-6, 3084-1, #### [facility] CLIA [id number] [address] [place] [address] [place] ALP [Catalytic activity/Vol] 90 U/L Normal 38-113 [facility] Comment on above: Order Comment: Speci men Type: BLOOD SPECIMEN Ordering Facility: [facility] Address: [address] [place], [place] [address] Performed By: #### 2 4362-6, 308-1, #### [facility] CLIA [id number] [address] [place] [address] [place] ALT [Catalytic activity/Vol] 12 U/L Normal 10-54 [facility] Comment on above: Order Comment: Speci men Type: BLOOD SPECIMEN Ordering Facility: [facility] Address: [address] [place], [place] [address] Performed By: #### 2 4362-6, 3084-1, #### [facility] CLIA [id number] [address] [place] [address] [place] Anion gap [Moles/Vol] 11 mmol/L Normal 8-15 [facility] Comment on above: Order Comment: Speci men Type: BLOOD SPECIMEN Ordering Facility: [facility] Address: [address] [place], [place] [address] Performed By: #### 2 4362-6, 3084-1, #### [facility] CLIA [id number] [address] [place] [address] [place] AST [Catalytic activity/Vol] 12 U/L Low 14-40 [facility] Comment on above: Order Comment: Speci men Type: BLOOD SPECIMEN Ordering Facility: [facility] Address: [address] [place] [address] [place] [address] Performed By: #### 2 4362-6, 3083-03, #### [facility] CLIA [id number] [address] [place] [address] [place] Bilirubin [Mass/Vol] 0.3 mg/dL Normal 0.2-1.3 [facility] Comment on above: Order Comment: Speci men Type: BLOOD SPECIMEN Ordering Facility: [facility] Address: [address] [place], [place] [address] Performed By: #### 2 4362-6, 3083-03, #### [facility] CLIA [id number] [address] [place] [address] [place] Calcium [Mass/Vol] 10.0 mg/dL Normal 8.5-10.2 [facility] Comment on above: Order Comment: Speci men Type: BLOOD SPECIMEN Ordering Facility: [facility] Address: [facility] [place][note 2] [place] [address] Performed By: #### 2 4362-6, 3083-03, #### [facility] CLIA [id number] [address] [place] [address] [place] Chloride [Moles/Vol] 102 mmol/L Normal 98-107 [facility] Comment on above: Order Comment: Speci men Type: BLOOD SPECIMEN Ordering Facility: [facility] Address: [address] [place] [address] Performed By: #### 2 4362-6, 3083-03, #### [facility] CLIA [id number] [address] [place] [address] [place] CO2 [Moles/Vol] 25 mmol/L Normal 22-30 [facility] Comment on above: Order Comment: Maged bullock Type: BLOOD SPECIMEN Ordering Facility: [facility] Address: [address] [place] [address] Performed By: #### 2 4362-6, 3083-03, #### [facility] CLIA [id number] [address] [place] [address] [place] Creatinine [Mass/Vol] 1.14 mg/dL Normal 0.73-1.22 [facility] Comment on above: Order Comment: Speci aar Type: BLOOD SPECIMEN Ordering Facility: [facility] Address: [address] [place], [place] [address] Performed By: #### 2 4362-6, 3083-03, #### [facility] [id number] [address] [place] [address] [place] Creatinine and Glomerular filtration rate.predicted panel (S/P/Bld) 76 mL/min/1.73m??? Normal >=60 [facility] Comment on above: Order Comment: Maged bullock Type: BLOOD SPECIMEN Ordering Facility: [facility] Address: [address] [place] [address] Result Comment: Catherine mated Glomerular Filtration Rate (eGFR) is calculated using the 2020 CKD-EPI creatinine equation. This equation utilizes serum creatinine, sex, and age as parameters. The creatinine assay has traceable calibration to isotope dilution-mass spectrometry. Refer to KDIGO guidelines for clinical interpretation. In patients with unstable renal function, e.g. those with acute kidney injury, the eGFR may not accurately reflect actual GFR. Performed By: #### 2 4362-6, 3083-03, #### [facility] [id number] [address] [place] [address] [place] Glucose [Mass/Vol] 112 mg/dL High 74-99 [facility] Comment on above: Order Comment: Maged bullock Type: BLOOD SPECIMEN Ordering Facility: [facility] Address: [address] [place] [address] Result Comment: The [place] Diabetes Association (ADA) provides guidance for cutoff [...] Standards of Medical Care in Diabetes 2016, [place] [employer] Association. Diabetes Care. 2016.39(Suppl 1). Performed By: #### 2 4362-6, 3083-, #### [facility] CLIA [id number] [address] [place] [address] [place] Potassium [Moles/Vol] 4.3 mmol/L Normal 3.7-5.1 [facility] Comment on above: Order Comment: Speci men Type: BLOOD SPECIMEN Ordering Facility: [facility] Address: [address] [place] [address] Performed By: #### 2 4362-6, 3083-03, #### [facility] CLIA [id number] [address] [place] [address] [place] Protein [Mass/Vol] 7.4 g/dL Normal 6.3-8.0 [facility] Comment on above: Order Comment: Speci men Type: BLOOD SPECIMEN Ordering Facility: [facility] Address: [address] [place] [address] Performed By: #### 2 4362-6, 30806-18, #### [facility] CLIA [id number] [address] [place] [address] [place] Sodium [Moles/Vol] 138 mmol/L Normal 136-144 [facility] Comment on above: Order Comment: Speci men Type: BLOOD SPECIMEN Ordering Facility: [facility] Address: [address] [place] [address] Performed By: #### 2 4362-6, 3083-1, #### [facility] CLIA [id number] [address] [place] [address] [place] Urea nitrogen [Mass/Vol] 18 mg/dL Normal 9-24 [facility] Comment on above: Order Comment: Speci men Type: BLOOD SPECIMEN Ordering Facility: [facility] Address: [address] [place], [place] [address] Performed By: #### 2 4362-6, 3083-, #### [facility] CLIA [id number] [address] [place] [address] [place] Lipid 1996 panelon 4 Cholesterol [Mass/Vol] 190 mg/dL Normal <200 [facility] Comment on above: Order Comment: Speci men Type: BLOOD SPECIMEN Ordering Facility: [facility] Address: [address] [place] [address] Result Comment: <200 mg/dL, Desirable 200-239 mg/dL, Borderline high >239 mg/dL, High Performed By: #### 2 4362-6, 3083-03, #### [facility] CLIA [id number] [address] [place] [address] [place] Cholesterol in HDL [Mass/Vol] 41 mg/dL Normal >39 [facility] Comment on above: Order Comment: Speci men Type: BLOOD SPECIMEN Ordering Facility: [facility] Address: [address] [place] [address] Result Comment: 40-5 9 mg/dL, Acceptable >59 mg/dL, High: Negative risk factor for coronary heart disease <40 mg/dL, Low: Positive risk factor for coronary heart disease Performed By: #### 2 4362-6, 308-1, #### [facility] CLIA [id number] [address] [place] [address] [place] Cholesterol in LDL [Mass/Vol] 104 mg/dL High <100 [facility] Comment on above: Order Comment: Maged bullock Type: BLOOD SPECIMEN Ordering Facility: [facility] Address: [address] [place] [address] Result Comment: <100 mg/dL, Optimal 100-129 mg/dL, Near optimal/above optimal 130-159 mg/dL, Borderline high 160-189 mg/dL, High >189 mg/dL, Very high Secondary prevention optimal LDL Cholesterol levels are recommended to be < 70 mg/dL Performed By: #### 2 4362-6, 308-1, #### [facility] CLIA [id number] [address] [place] [address] [place] Cholesterol in LDL/Cholesterol in HDL [Mass ratio] 2.54 {ratio} High <2.54 [facility] Comment on above: Order Comment: Maged bullock Type: BLOOD SPECIMEN Ordering Facility: [facility] Address: [address] [place] [address] Result Comment: Refe dannice: 1. National Cholesterol Education Program ATP III Guideline At-A-Glance Quick Desk Reference: National Heart, Lung, and Blood [place]. National Institutes of Health. 2001: NIH Publication No. 01-3305. 2. An International Atherosclerosis Society position paper: global recommendations for the management of dyslipidemia: executive summary, Atherosclerosis. 2014: 232(2):410-413. Performed By: #### 2 4362-6, 308-, #### [facility] CLIA [id number] [address] [place] [address] [place] Cholesterol in VLDL [Mass/Vol] 45 mg/dL High <30 [facility] Comment on above: Order Comment: Maged bullock Type: BLOOD SPECIMEN Ordering Facility: [facility] Address: [address] [place] [address] Performed By: #### 2 4362-6, 3084-1, #### [facility] CLIA [id number] [address] [place] [address] [place] Cholesterol non HDL [Mass/Vol] 149 mg/dL High <130 [facility] Comment on above: Order Comment: Maged bullock Type: BLOOD SPECIMEN Ordering Facility: [facility] Address: [address] [place] [id number] Result Comment: <130 mg/dL, Optimal 130-159 mg/dL, Near optimal/above optimal 160-189 mg/dL, Borderline high 190-219 mg/dL, High >219 mg/dL, Very high Secondary prevention optimal non HDL Cholesterol levels are recommended to be <100 mg/dL Performed By: #### 2 4362-6, 308-1, #### [facility] CLIA [id number] [address] [place] [address] [facility] [place] Cholesterol.total/Chol esterol in HDL [Mass ratio] 4.63 {ratio} Normal <5.10 [facility] Comment on above: Order Comment: Maged bullock Type: BLOOD SPECIMEN Ordering Facility: [facility] Address: [address] [place] [address] Performed By: #### 2 4362-6, 3083-03, #### [facility] CLIA [id number] [address] [place] [address] [place] FASTING TIME 12 hrs Normal [facility] Comment on above: Order Comment: Cobyi ara Type: BLOOD SPECIMEN Order[facility] Facility: [facility] Address: [address] [place] [address] Performed By: #### 2 4362-6, 3083-03, #### [facility] CLIA [id number] [address] [place] [address] [place] Triglyceride [Mass/Vol] 224 mg/dL High <150 [facility] Comment on above: Order Comment: Cobyi men Type: BLOOD SPECIMEN Ordering Facility: [facility] Address: [address] [place] [address] Result Comment: <150 mg/dL, Normal 150-199 mg/dL, Borderline high 200-499 mg/dL, High >499 mg/dL, Very high Performed By: #### 2 4362-6, 3084-1, 18885-9 #### [facility] CLIA [id number] [address] [place] [id number] [place] PSA/PROSTATE SPECIFIC ANTIGE N SCREENINGon 01-11-2024 Prostate specific Ag [Mass/Vol] 1.15 ng/mL Normal <2.60 [facility] Comment on above: Order Comment: Speci men Type: BLOOD SPECIMENOrdering Facility: [facility] Address: [address] [place] [address] Result Comment: Lalovika minh PSA test methodology used is the Electrochemiluminescence Immunoassay by Jennifer Just Dial. Total PSA values by differing methodologies cannot be interchanged. Performed By: #### P SAS1 ####[facility] LAB[facility]IA [id number] [facility] [address] [place] CNOVon 01-09-2024 CNOV Office Visit (AGFAMP LE) -- RUDDY RUVALCABA ([id number]) 1970 M Date Time Provider Department 01/09/24 8:40 AM JOSSY NATARAJAN During your visit today, we recorded the following information about you: Temperature Pulse Respiration Blood pressure 98.1 degrees 67/minute 17/minute 126/78 Weight Height 115.2 kg 1.778 m Jossy Natarajan APRN.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 01/18/2024 2:50 PM Signed CHIEF COMPLAINT: Ruddy Ruvalcaba is a 53 year old male who presents for F/U HTN 6 Month. I reviewed past medical, surgical, social, and family histories today and updated chart. Allergies, chronic medications, and supplements were also reviewed. He was following with Dr. Mortensen with nephrology for history of uncontrolled HTN. He is currently taking Labetalol 300 mg TID and Lisinopril 40 mg twice daily. He checks his BP on occasion and it has been running in the 130/80's. He denies any symptoms associate with high blood pressure including CP, SOB, dizziness, fatigue, headaches, or vision changes. He had reconstructive surgery to his left knee in September. Still having a lot of pain. Tried Gabapentin but it didn't help. He is taking a lot of Tylenol and Ibuprofen. Being weaned off pain medication with orthopedic surgery but feels he is going to need help getting off the pain medication since he has needed it for over a year. PAST MEDICAL HISTORY Diagnosis Date Bilateral renal stones Class 2 severe obesity due to excess calories with serious comorbidity and body mass index (BMI) of 35.0 to 35.9 in adult (HCC) MONROY (dyspnea on exertion) Essential hypertension 10/01/2015 Fatty infiltration of liver 10/22/2022 Hypertension, unspecified type Kidney stones Mixed hyperlipidemia Nicotine use disorder Obesity, Class I, BMI 30-34.9 Reflex sympathetic dystrophy of other specified site [...] Right 12/01/2021 Right total robotic knee replacement TOTAL KNEE REPLACEMENT Left 09/18/2023 Social History Tobacco Use Smoking status: Every Day Current packs/day: 0.25 Average packs/day: 0.3 packs/day for 35.2 years (8.8 ttl pk-yrs) Types: Cigarettes Start date: 10/20/1988 Smokeless tobacco: Never Tobacco comments: 0.5 ppd since 2012 Vaping Use Vaping status: Never Used Substance Use Topics Alcohol use: Not Currently Drug use: Not Currently Types: Marijuana ALLERGIES No Known Allergies Family History Problem Relation Age of Onset other (negative) Father Current Outpatient Medications Medication Sig Dispense Refill labetalol (TRANDATE) 200 mg tablet Take 1.5 tablets by mouth three times a day. 270 tablet 0 acetaminophen (TYLENOL) 500 mg tablet Take 2 tablets by mouth every 8 hours as needed for pain. 90 tablet 0 erythromycin (ROMYCIN) 5 mg/gram (0.5 %) ophthalmic ointment Use 1 Drop in the right eye daily at bedtime. Patient should start on September 22, 2023. lisinopril (ZESTRIL) 40 mg tablet Take 1 tablet by mouth twice daily. 180 tablet 1 oxyCODONE IR (ROXICODONE) 5 mg immediate release tablet Take 1 tablet by mouth once daily as needed for pain for up to 7 days. 1 tablet per day as needed 7 tablet 0 No current facility-administered medications for this visit. Review of Systems Constitutional: Negative for appetite change, chills, diaphoresis, fatigue and fever. Respiratory: Negative for cough, chest tightness, shortness of breath and wheezing. Cardiovascular: Negative for chest pain, palpitations and leg swelling. Genitourinary: Negative. Musculoskeletal: Positive for arthralgias. Neurological: Negative for dizziness, light-headedness and headaches. BP 126/78 Pulse 67 Temp 98.1 Resp 17 Ht 5' 10" (1.78m) Wt 254 lb (115.2kg) SpO2 96% BMI 36.45 kg/(m2). Physical Exam Vitals and nursing note reviewed. Constitutional: Appearance: He is obese. Cardiovascular: Rate and Rhythm: Normal rate and regular rhythm. Heart sounds: Normal heart sounds. Pulmonary: Breath sounds: Normal breath sounds. Skin: G (more content not included)... Normal [facility] CNTHERAPYon 12-13-2023 CNTHERAPY OT/PT/Speech Visit ( PTWS) -- RUDDY RUVALCABA ([id number]) 1970 M Date Time Provider Department 12/13/23 10:00 AM TROY GRAHAM PTWS Date Time Provider Department [place] 12/13/2023 10:00 AM [id number], COLIN PTWS [place] Reason for Visit: Physical Therapy [503] Primary Visit Diagnosis:Post-traumatic osteoarthritis of left knee [M17.32] Other Visit Diagnosis:Status post knee replacement, unspecified laterality [Z96.659] Allergies As of Date: 12/13/2023 (No Known Allergies) Date Reviewed: 11/28/2023 Reviewed by: Marita Nash OCCA - Fully Assessed Prescriptions as of 12/13/2023 - oxyCODONE IR (ROXICODONE) 5 mg immediate release tablet Take 1-2 tablets by mouth every 6 hours as needed for pain for up to 7 days. Max 6 tablets per day - labetalol (TRANDATE) 200 mg tablet Take 1.5 tablets by mouth three times a day. - pregabalin (LYRICA) 75 mg capsule Take 1 capsule by mouth two times a day for 30 days. - ascorbic acid, vitamin C, (VITAMIN C) 500 mg tablet Take 1 tablet by mouth two times a day with meals for 14 days. - acetaminophen (TYLENOL) 500 mg tablet Take 2 tablets by mouth every 8 hours as needed for pain. - aspirin, enteric coated (ECOTRIN LOW STRENGTH) 81 mg EC tablet Take 1 tablet by mouth two times a day for 28 days. - erythromycin (ROMYCIN) 5 mg/gram (0.5 %) ophthalmic ointment Use 1 Drop in the right eye daily at bedtime. Patient should start on September 22, 2023. - lisinopril (ZESTRIL) 40 mg tablet Take 1 tablet by mouth twice daily. Normal [facility] CNTHERAPYon 12-07-2023 CNTHERAPY OT/PT/Speech Visit ( PTWS) -- PEGRUDDY REEDER ([id number]) 1970 M Date Time Provider Department 12/07/23 10:15 AM SANDY RICHARDSON PTWS Date Time Provider Department [place] 12/07/2023 10:15 AM [id number], MARIAH PTELPID[place] Reason for Visit: Physical Therapy [503] Primary Visit Diagnosis:Post-traumatic osteoarthritis of left knee [M17.32] Other Visit Diagnosis:Status post knee replacement, unspecified laterality [Z96.659] Allergies As of Date: 12/07/2023 (No Known Allergies) Date Reviewed: 11/28/2023 Reviewed by: Marita Nash OCCA - Fully Assessed Prescriptions as of 12/07/2023 - oxyCODONE IR (ROXICODONE) 5 mg immediate release tablet Take 1-2 tablets by mouth every 6 hours as needed for pain for up to 7 days. Max 6 tablets per day - naproxen (NAPROSYN) 500 mg tablet Take 1 tablet by mouth two times a day as needed (for pain) for up to 14 days. Take with food - labetalol (TRANDATE) 200 mg tablet Take 1.5 tablets by mouth three times a day. - pregabalin (LYRICA) 75 mg capsule Take 1 capsule by mouth two times a day for 30 days. - ascorbic acid, vitamin C, (VITAMIN C) 500 mg tablet Take 1 tablet by mouth two times a day with meals for 14 days. - acetaminophen (TYLENOL) 500 mg tablet Take 2 tablets by mouth every 8 hours as needed for pain. - aspirin, enteric coated (ECOTRIN LOW STRENGTH) 81 mg EC tablet Take 1 tablet by mouth two times a day for 28 days. - erythromycin (ROMYCIN) 5 mg/gram (0.5 %) ophthalmic ointment Use 1 Drop in the right eye daily at bedtime. Patient should start on September 22, 2023. - lisinopril (ZESTRIL) 40 mg tablet Take 1 tablet by mouth twice daily. Normal [facility] Bacteria Fld Culton 12-06-19 24 Bacteria identified Cx Nom (Body fld) ORGANISM ID: 1 Cutibacterium acnes Growth in Enrichment Broth Only Susceptibility testing on C. acnes not performed due to predictable susceptibility to penicillin. C. acnes is intrinsically resistant to metronidazole. GRAM STAIN: No organisms seen No Polymorphonuclear Leukocytes Gram stain from primary specimen Abnormal [facility] Comment on above: Performed By: #### 6 11-4 ####[facility] LAB[facility]IA [id number] [address] OF [facility] Guidance for injection of Kn eeon 12-06-2023 IMPRESSION: Completed left knee joint aspiration using imaging guidance. Specimen was sent to laboratory for further analysis per referring physician's orders. Fluoroscopic Radiation Summary: Plane A, Air Kerma: 0.0 mGy Dose Area Product (DAP): Fluoro time: 0:01 min:sec Bi Tester: PSCB Transcribe Date/Time: Dec 06 2023 1:04P Dictated by : Carolyn ARRIAGA MD This examination was interpreted and the report reviewed and electronically signed by: Carolyn ARRIAGA MD on Dec 06 2023 1:20PM [facility] * * *Final Report* * * DATE OF EXAM: Dec 06 2023 10:32AM MDX 5747 - XR ASP/INJ KNEE JT/BURSA LT / PROCEDURE REASON: Z96.652-Status post total left knee replacement * * * * Physician Interpretation * * * * PROCEDURE NOTE: PATIENT: RUDDY RUVALCABA. . PRIMARY PROVIDER: Carolyn Arriaga MD. PROCEDURE: XR ASP/INJ KNEE JT/BURSA LT. Left knee joint aspiration using fluoroscopic guidance. HISTORY: Status post total left knee replacement Left knee effusion. CONSENT: Informed consent was obtained for this procedure. Details of informed consent can be found in [facility] under the "consent" tab. PROCEDURE DESCRIPTION: A sign in and audible timeout was completed prior to the procedure. The lateral left knee was prepped and draped in sterile fashion. A subcutaneous injection of 6 mL lidocaine 1% was given for local anesthesia. A 20-gauge needle was advanced to the left suprapatellar bursa and approximately 2 mL of blood-tinged synovial fluid was aspirated. The needle was removed and a bandage applied to the puncture site. TECHNIQUE/VIEWS: 1 AP fluoroscopic spot image and 1 crosstable left knee stored in a permanent archive. COMPLICATIONS: None. ESTIMATED BLOOD LOSS: None. SPECIMEN: 2 mL of blood-tinged synovial fluid. [facility] Provider, Bryan Terrazas [facility] - 12/06/2023 * * *Final Report* * * DATE OF EXAM: Dec 06 2023 10:32AM MDX 5747 - XR ASP/INJ KNEE JT/BURSA LT / PROCEDURE REASON: Z96.652-Status post total left knee replacement * * * * Physician Interpretation * * * * PROCEDURE NOTE: PATIENT: RUDDY RUVALCABA. . PRIMARY PROVIDER: Carolyn Arriaga MD. PROCEDURE: XR ASP/INJ KNEE JT/BURSA LT. Left knee joint aspiration using fluoroscopic guidance. HISTORY: Status post total left knee replacement Left knee effusion. CONSENT: Informed consent was obtained for this procedure. Details of informed consent can be found in [facility] under the "consent" tab. PROCEDURE DESCRIPTION: A sign in and audible timeout was completed prior to the procedure. The lateral left knee was prepped and draped in sterile fashion. A subcutaneous injection of 6 mL lidocaine 1% was given for local anesthesia. A 20-gauge needle was advanced to the left suprapatellar bursa and approximately 2 mL of blood-tinged synovial fluid was aspirated. The needle was removed and a bandage applied to the puncture site. TECHNIQUE/VIEWS: 1 AP fluoroscopic spot image and 1 crosstable left knee stored in a permanent archive. COMPLICATIONS: None. ESTIMATED BLOOD LOSS: None. SPECIMEN: 2 mL of blood-tinged synovial fluid. IMPRESSION IMPRESSION: Completed left knee joint aspiration using imaging guidance. Specimen was sent to laboratory for further analysis per referring physician's orders. Fluoroscopic Radiation Summary: Plane A, Air Kerma: 0.0 mGy Dose Area Product (DAP): Fluoro time: 0:01 min:sec Bi Tester: VÍCTOR Transcribe Date/Time: Dec 06 2023 1:04P Dictated by : Carolyn ARRIAGA MD This examination was interpreted and the report reviewed and electronically signed by: Carolyn ARRIAGA MD on Dec 06 2023 1:20PM EST [facility] Radiology Study observation (narrative) [facility] Guidance for injection of Kn eeOrdered By: Ccf Provider on 12-06-2023 [facility] SYNOVIAL FLUID MANUAL DIFFon 12-06-2023 DIF TTL, SYNOVIAL FLUID 100 cells counted Normal [facility] Comment on above: Order Comment: Speci men Type: BLOOD SPECIMEN Ordering Facility: [facility] Address: [address] [place], [place] [address] Performed By: #### 2 4362-6, 3083-03, #### [facility] CLIA [id number] [address] [place] [address] [place] LYMPH%, SF 17 Normal [facility] Comment on above: Order Comment: Speci men Type: BLOOD SPECIMEN Ordering Facility: [facility] Address: [address] [place] [address] Performed By: #### 2 4362-6, 3083-03, #### [facility] CLIA [id number] [address] [place] [address] [place] MONO%, SF 6 Normal [facility] Comment on above: Order Comment: Speci men Type: BLOOD SPECIMEN Ordering Facility: [facility] Address: [address] [place] [address] Performed By: #### 2 4362-6, 3083-03, #### [facility] CLIA [id number] [address] [place] [address] [place] NEUT% 77 High 0-<25 [facility] Comment on above: Order Comment: Speci men Type: BLOOD SPECIMEN Ordering Facility: [facility] Address: [address] [place] [address] Performed By: #### 2 4362-6, 3083-03, #### [facility] CLIA [id number] [address] [place] [address] [place] SYNOVIAL FLUID, CRYSTAL ID/P ATHOLOGIST INTERPRETATIONon 12-06-2023 CRYSTAL PRELIM, SF PRELIMINARY REPORT N o diagnostic crystals seen. SEE FINAL SF PATH REVIEW Normal [facility] Comment on above: Order Comment: Speci men Type: BLOOD SPECIMEN Ordering Facility: [facility] Address: [address] [place] [address] Performed By: #### 2 4362-6, 308-1, #### [facility] CLIA [id number] [address] [place] [address] [place] CRYSTAL REVIEW Reviewed by Maksim Anthony MD [facility] Comment on above: Order Comment: Speci men Type: BLOOD SPECIMEN Ordering Facility: [facility] Address: [address] [place] [address] Performed By: #### 2 4362-6, 3083-03, #### [facility] CLIA [id number] [address] [place] [address] [place] Crystals LM Nom (Syn fld) None seen Normal None seen [facility] Comment on above: Order Comment: Speci men Type: BLOOD SPECIMEN Ordering Facility: [facility] Address: [address] [place] [address] Performed By: #### 2 4362-6, 3083-03, #### [facility] CLIA [id number] [address] [place] [address] [place] [facility] [place] SYNOVIAL FLUID, ROUTINEon Clarity (Unsp spec) Clear Normal Clear [facility] Comment on above: Order Comment: Speci men Type: BLOOD SPECIMEN Ordering Facility: [facility] Address: [address] [place] [address] Performed By: #### 2 4362-6, 3081, #### [facility] CLIA [id number] [address] [place] [address] [place] Color (Syn fld) Yellow Normal Yellow [facility] Comment on above: Order Comment: Speci men Type: BLOOD SPECIMEN Ordering Facility: [facility] Address: [address] [place] [address] Performed By: #### 2 4362-6, 3084-1, #### [facility] CLIA [id number] [address] [place] [address] [place] RBC Manual cnt (Syn fld) [#/Vol] 97329 /uL High <2000 [facility] Comment on above: Order Comment: Speci men Type: BLOOD SPECIMEN Ordering Facility: [facility] Address: [address] [place] [address] Performed By: #### 2 4362-6, 3083-03, #### [facility] CLIA [id number] [address] [place] [address] [place] Specimen source Nom (Unsp spec) Knee, Left Normal [facility] Comment on above: Order Comment: Speci men Type: BLOOD SPECIMEN Ordering Facility: [facility] Address: [address] [place] [address] Performed By: #### 2 4362-6, 308-1, #### [facility] CLIA [id number] [address] [place] [address] STATES [facility] WBC Manual cnt (Syn fld) [#/Vol] 674 /uL High 0-200 [facility] Comment on above: Order Comment: Speci men Type: BLOOD SPECIMEN Ordering Facility: [facility] Address: [address] [place] [address] Performed By: #### 2 4362-6, 308-1, #### [facility] CLIA [id number] [address] [place] [address] [place] XR ASP/INJ KNEE JT/BURSA LTo n 12-06-2023 XR ASP/INJ KNEE JT/BURSA LT * * *Final Report* * * DATE OF EXAM: Dec 06 2023 10:32AM MDX 5747 - XR ASP/INJ KNEE JT/BURSA LT / PROCEDURE REASON: Z96.652-Status post total left knee replacement * * * * Physician Interpretation * * * * PROCEDURE NOTE: PATIENT: RUDDY RUVALCABA. . PRIMARY PROVIDER: Carolyn Arriaga MD. PROCEDURE: XR ASP/INJ KNEE JT/BURSA LT. Left knee joint aspiration using fluoroscopic guidance. HISTORY: Status post total left knee replacement Left knee effusion. CONSENT: Informed consent was obtained for this procedure. Details of informed consent can be found in [facility] under the "consent" tab. PROCEDURE DESCRIPTION: A sign in and audible timeout was completed prior to the procedure. The lateral left knee was prepped and draped in sterile fashion. A subcutaneous injection of 6 mL lidocaine 1% was given for local anesthesia. A 20-gauge needle was advanced to the left suprapatellar bursa and approximately 2 mL of blood-tinged synovial fluid was aspirated. The needle was removed and a bandage applied to the puncture site. TECHNIQUE/VIEWS: 1 AP fluoroscopic spot image and 1 crosstable left knee stored in a permanent archive. COMPLICATIONS: None. ESTIMATED BLOOD LOSS: None. SPECIMEN: 2 mL of blood-tinged synovial fluid. IMPRESSION: Completed left knee joint aspiration using imaging guidance. Specimen was sent to laboratory for further analysis per referring physician's orders. Fluoroscopic Radiation Summary: Plane A, Air Kerma: 0.0 mGy Dose Area Product (DAP): Fluoro time: 0:01 min:sec Bi Tester: PSCB Transcribe Date/Time: Dec 06 2023 1:04P Dictated by : Carolyn ARRIAGA MD This examination was interpreted and the report reviewed and electronically signed by: Carolyn ARRIAGA MD on Dec 06 2023 1:20PM EST [id number] [facility] CNTHERAPYon 11-30-2023 CNTHERAPY OT/PT/Speech Visit ( PTWS) -- PEGRUDDY REEDER ([id number]) 1970 M Date Time Provider Department 11/30/23 10:00 AM TROY GRAHAM PTELPIDIO Date Time Provider Department [place] 11/30/2023 10:00 AM [id number], COLIN PTELPIDIO [place] Reason for Visit: Physical Therapy [503] Primary Visit Diagnosis:Post-traumatic osteoarthritis of left knee [M17.32] Allergies As of Date: 11/30/2023 (No Known Allergies) Date Reviewed: 11/28/2023 Reviewed by: Marita Nash OCCA - Fully Assessed Prescriptions as of 11/30/2023 - oxyCODONE IR (ROXICODONE) 5 mg immediate release tablet Take 1-2 tablets by mouth every 4 hours as needed for pain for up to 7 days. Patient should start on November 25, 2023. - naproxen (NAPROSYN) 500 mg tablet Take 1 tablet by mouth two times a day as needed (for pain) for up to 14 days. Take with food - labetalol (TRANDATE) 200 mg tablet Take 1.5 tablets by mouth three times a day. - pregabalin (LYRICA) 75 mg capsule Take 1 capsule by mouth two times a day for 30 days. - ascorbic acid, vitamin C, (VITAMIN C) 500 mg tablet Take 1 tablet by mouth two times a day with meals for 14 days. - acetaminophen (TYLENOL) 500 mg tablet Take 2 tablets by mouth every 8 hours as needed for pain. - aspirin, enteric coated (ECOTRIN LOW STRENGTH) 81 mg EC tablet Take 1 tablet by mouth two times a day for 28 days. - erythromycin (ROMYCIN) 5 mg/gram (0.5 %) ophthalmic ointment Use 1 Drop in the right eye daily at bedtime. Patient should start on September 22, 2023. - lisinopril (ZESTRIL) 40 mg tablet Take 1 tablet by mouth twice daily. Normal [facility] CNOVon 11-28-2023 CNOV Office Visit (ORMDNA ) -- RUDDY RUVALCABA ([id number]) 1970 M Date Time Provider Department 11/28/23 1:00 PM HEATH DELGADO During your visit today, we recorded the following information about you: Heath Delgado MD 11/28/2023 2:23 PM Signed This is follow-up for Ruddy. He is having persistent pain after knee replacement. Previous aspiration in the office was dry. ESR and CRP are elevated but downtrending. Nevertheless they are beyond what we would normally expect at this time point. We have discussed another aspiration and he would really prefer to have this done radiology guided. I have placed the orders today. He will follow-up afterwards. All questions were answered. Repeat imaging today demonstrates well-appearing knee replacement. Heath Delgado MD Orthopaedic Surgery Allergies As of Date: 11/28/2023 (No Known Allergies) Date Reviewed: 11/28/2023 Reviewed by: Marita Nash OCCA - Fully Assessed Reason for Visit: Follow Up [171] Knee Replacement [363] Primary Visit Diagnosis:Status post total left knee replacement [Z96.652] Order(s):XR KNEE GENERAL 4V AP BOTH/PA BOTH/LAT/MERC LEFT [[id number]] Order #: [id number] FUTURE US ASP/INJ KNEE JT/BURSA LEFT [[id number]] Order #: [id number] FUTURE SYNOVIAL FLUID, ROUTINE [SQRTSYN] Order #: [id number] BODY FLUID CULTURE AND GRAM STAIN [SQBFCUL] Order #: [id number] Prescriptions as of 11/28/2023 - oxyCODONE IR (ROXICODONE) 5 mg immediate release tablet Take 1-2 tablets by mouth every 4 hours as needed for pain for up to 7 days. Patient should start on November 25, 2023. - naproxen (NAPROSYN) 500 mg tablet Take 1 tablet by mouth two times a day as needed (for pain) for up to 14 days. Take with food - labetalol (TRANDATE) 200 mg tablet Take 1.5 tablets by mouth three times a day. - pregabalin (LYRICA) 75 mg capsule Take 1 capsule by mouth two times a day for 30 days. - ascorbic acid, vitamin C, (VITAMIN C) 500 mg tablet Take 1 tablet by mouth two times a day with meals for 14 days. - acetaminophen (TYLENOL) 500 mg tablet Take 2 tablets by mouth every 8 hours as needed for pain. - aspirin, enteric coated (ECOTRIN LOW STRENGTH) 81 mg EC tablet Take 1 tablet by mouth two times a day for 28 days. - erythromycin (ROMYCIN) 5 mg/gram (0.5 %) ophthalmic ointment Use 1 Drop in the right eye daily at bedtime. Patient should start on September 22, 2023. - lisinopril (ZESTRIL) 40 mg tablet Take 1 tablet by mouth twice daily. Problem List As Of Date 11/28/2023 Noted Resolved RSD (reflex sympathetic dystrophy) [G90.50] [...] 12/29/2021 Nicotine use disorder, F17.2 [F17.200] 04/01/2022 Hypertensive urgency [I16.0] 08/31/2022 Headache [R51.9] 08/31/2022 Mixed hyperlipidemia [E78.2] 09/01/2022 Left flank pain [R10.9] 11/17/2022 Hypertension, essential [I10] 07/16/2023 Left knee pain [M25.562] 07/16/2023 Left hamstring muscle strain [S76.312A] 07/16/2023 Left leg pain [M79.605] 07/16/2023 MONROY (dyspnea on exertion) [R06.09] 08/28/2023 S/P total knee arthroplasty, left [Z96.652] 09/19/2023 Post-traumatic osteoarthritis of left knee [M17*11/08/2023 Encounter Status:Closed by HEATH DELGADO on 11/28/23 [facility] XR KNEE 4V AP/PA BOTH+LAT/ME R LTon 11-28-2023 XR KNEE 4V AP/PA BOTH+LAT/EDGARD LT * * *Final Report* * * DATE OF EXAM: Nov 28 2023 1:13PM KOLBY 5202 - XR KNEE 4V AP/PA BOTH+LAT/EDGARD LT / PROCEDURE REASON: Z96.652-Status post total left knee replacement * * * * Physician Interpretation * * * * PROCEDURE: Left knee INDICATION: Status post total left knee replacement .PAIN IN LEFT KNEE, NO KNOWN INJURY TECHNIQUE: XR KNEE 4V AP/PA BOTH+LAT/EDGARD LT COMPARISON: 10/03/2023 FINDINGS: The total knee arthroplasty remains in satisfactory position without evidence for loosening. No periprosthetic fracture. Improving postoperative soft tissue swelling and joint effusion. IMPRESSION: Stable TKA Bi Tester: VÍCTOR Transcribe Date/Time: Dec 01 2023 7:37A Dictated by : SOFIYA LOPEZ MD This examination was interpreted and the report reviewed and electronically signed by: SOFIYA LOPEZ MD on Dec 01 2023 7:38AM EST [id number] [facility] CNOVon 11-23-2023 CNOV Office Visit (ORMDNA ) -- PEGRUDDY Lanier ([id number]) 1970 M Date Time Provider Department 11/23/23 9:40 AM HEATH DELGADO During your visit today, we recorded the following information about you: Heath Delgado MD 11/23/2023 12:21 PM Signed This is an early follow-up for Ruddy. Noah aspirated him at his last appointment, cultures with no growth, minimal fluid. Came in for this appointment based on complaints of swelling and pain. On physical examination has a moderate effusion, no erythema, and normal increased warmth for this stage out from surgery. His range of motion is beyond 90 degrees. He does have allodynic pain to light touch about the knee throughout. He does have an antalgic gait. X-rays did not demonstrate any acute pathology at last appointment. I will repeat inflammatory markers today, he does not want me to repeat an aspiration and less elevated uptrending. Radiology based aspiration if the numbers are not coming down. Repeat x-rays and seeing me again next week. All questions answered and red flag symptoms discussed Heath Delgado MD Orthopaedic Surgery Allergies As of Date: 11/23/2023 (No Known Allergies) Date Reviewed: 11/23/2023 Reviewed by: Marita Nash OCCA - Fully Assessed Reason for Visit: Post Op [174] Knee Replacement [363] Primary Visit Diagnosis:Status post left knee replacement [Z96.652] Order(s):SEDIMENTATION RATE, WESTERGREN [SQWSR] Order #: [id number] FUTURE C-REACTIVE PROTEIN [SQCRP] Order #: [id number] FUTURE naproxen (NAPROSYN) 500 mg tabletTake 1 tablet by mouth two times a day as needed (for pain) for up to 14 days. Take with foodDisp: 28 tabletRfl: 0 Prescriptions as of 11/23/2023 - naproxen (NAPROSYN) 500 mg tablet Take 1 tablet by mouth two times a day as needed (for pain) for up to 14 days. Take with food - oxyCODONE IR (ROXICODONE) 5 mg immediate release tablet Take 1-2 tablets by mouth every 4 hours as needed for pain for up to 7 days. Patient should start on November 19, 2023. - labetalol (TRANDATE) 200 mg tablet Take 1.5 tablets by mouth three times a day. - pregabalin (LYRICA) 75 mg capsule Take 1 capsule by mouth two times a day for 30 days. - ascorbic acid, vitamin C, (VITAMIN C) 500 mg tablet Take 1 tablet by mouth two times a day with meals for 14 days. - acetaminophen (TYLENOL) 500 mg tablet Take 2 tablets by mouth every 8 hours as needed for pain. - aspirin, enteric coated (ECOTRIN LOW STRENGTH) 81 mg EC tablet Take 1 tablet by mouth two times a day for 28 days. - erythromycin (ROMYCIN) 5 mg/gram (0.5 %) ophthalmic ointment Use 1 Drop in the right eye daily at bedtime. Patient should start on September 22, 2023. - lisinopril (ZESTRIL) 40 mg tablet Take 1 tablet by mouth twice daily. Problem List As Of Date 11/23/2023 Noted Resolved RSD (reflex sympathetic dystrophy) [G90.50] [...] 12/29/2021 Nicotine use disorder, F17.2 [F17.200] 04/01/2022 Hypertensive urgency [I16.0] 08/31/2022 Headache [R51.9] 08/31/2022 Mixed hyperlipidemia [E78.2] 09/01/2022 Left flank pain [R10.9] 11/17/2022 Hypertension, essential [I10] 07/16/2023 Left knee pain [M25.562] 07/16/2023 Left hamstring muscle strain [S76.312A] 07/16/2023 Left leg pain [M79.605] 07/16/2023 MONROY (dyspnea on exertion) [R06.09] 08/28/2023 S/P total knee arthroplasty, left [Z96.652] 09/19/2023 Post-traumatic osteoarthritis of left knee [M17*11/08/2023 Prescriptions ordered this encounter Disp Refills Start End NAPROXEN 500 MG TABLET 28 t* 0 11/23/2023 12/07/2023 Route: ORAL Sig: Take 1 tablet by mouth two times a day as needed (for pain) for up to 14 days. Take with food Encounter Status:Closed by HEATH DELGADO on 11/23/23 Normal [facility] CRP SerPl-mCncon 11-23-2023 CRP [Mass/Vol] 2.7 mg/dL High <0.9 [facility] Comment on above: Order Comment: Speci ara Type: BLOOD SPECIMENOrdering Facility: [facility] Address: [address] [place] [address] Performed By: #### 1 988-5 ####[facility] LABCLIA [id number] [place] [address] [place] ESR Westergren method (Bld) [Velocity]on 11-23-2023 ESR (Bld) [Velocity] 30 mm/h High [facility] Interpretation and review of laboratory results Abnormal [facility] ESR (Bld) [Velocity] 30 mm/h High 0-15 [facility] Comment on above: Order Comment: Cobyi men Type: BLOOD SPECIMEN Ordering Facility: [facility] Address: [address] [place] [address] Performed By: #### 2 4362-6, 3084-1, 30822-3 #### [facility] CLIA [id number] [address] [place] [address] [place] Bacteria Fld Culton 11-13-19 24 Bacteria identified Cx Nom (Body fld) CULTURE, BODY FLD: No growth GRAM STAIN: No organisms seen Rare Polymorphonuclear leukocytes Gram stain from primary specimen Normal [facility] Comment on above: Performed By: #### 6 11-4 ####[facility] LAB[facility]IA [id number] [id number] [address] [place] CNOVon 11-13-2023 CNOV Office Visit (ORMDNA ) -- RUDDY RUVALCABA ([id number]) 1970 M Date Time Provider Department 11/13/23 11:00 AM NOAH DE ANDA During your visit today, we recorded the following information about you: Noah De Anda APRN.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 11/14/2023 8:34 AM Signed Justice presents today for acute visit - aspiration left knee per our request. Obtained inflammatory markers last week and were elevated (CRP: 3.5, sed rate 37). Went to ER for increased pain, swelling and chills. Large Joint Arthro/Inj: L knee joint Informed Consent Consent Obtained: Verbal Cactus Protocol A moment to CARE was completed. SIGN IN Personnel directly involved with the procedure wore the appropriate PPE. Special Equipment: Yes Patient/Surrogate Stated/Verified: Patient name, Date of , Relevant allergies and Intended procedure TIME OUT Intended patient and procedure match the source document(s). Consent documented and matches the intended procedure. Relevant labs, photos, and/or imaging studies have been reviewed. Correct side/site marked and visible. Medications required for procedure verified. Fire risk assessed and interventions discussed. No implant(s) inserted. 11/13/2023 11:44 AM The procedure site was prepped in the usual sterile fashion. Site: L knee joint Aspirate: 2 mL bloody; sent for lab analysis Outcome: Tolerated well, no immediate complications Post-injection instructions were reviewed with the patient and the patient voiced understanding of these instructions. SIGN OUT All specimen containers correctly labeled. All instruments, equipment, possible retained foreign bodies accounted for. Post-procedure follow-up management communicated and Plan of Care Visit completed when applicable Will contact after labs resulted. May need repeat aspiration under radiology due to amount of fluid obtained. Noah De Anda APRN.[facility] Orthopaedic Surgery Allergies As of Date: 11/13/2023 (No Known Allergies) Date Reviewed: 11/12/2023 Reviewed by: Nelli Baker RN - Fully Assessed Primary Visit Diagnosis:Pain due to total left knee replacement, initial encounter ([facility]) [T84.84XA, Z96.652] Other Visit Diagnosis:S/P total knee arthroplasty, left [Z96.652] Order(s):Large Joint Arthro/Inj: L knee joint [BVU147] Order #: [id number] BODY FLUID CULTURE AND GRAM STAIN [SQBFCUL] Order #: [id number]. #:[id number] oxyCODONE IR (ROXICODONE) 5 mg immediate release tabletTake 1-2 tablets by mouth every 4 hours as needed for pain for up to 7 days.Disp: 50 tabletRfl: 0 Prescriptions as of 11/14/2023 - oxyCODONE IR (ROXICODONE) 5 mg immediate release tablet Take 1-2 tablets by mouth every 4 hours as needed for pain for up to 7 days. - labetalol (TRANDATE) 200 mg tablet Take 1.5 tablets by mouth three times a day. - pregabalin (LYRICA) 75 mg capsule Take 1 capsule by mouth two times a day for 30 days. - ascorbic acid, vitamin C, (VITAMIN C) 500 mg tablet Take 1 tablet by mouth two times a day with meals for 14 days. - acetaminophen (TYLENOL) 500 mg tablet Take 2 tablets by mouth every 8 hours as needed for pain. - aspirin, enteric coated (ECOTRIN LOW STRENGTH) 81 mg EC tablet Take 1 tablet by mouth two times a day for 28 days. - erythromycin (ROMYCIN) 5 mg/gram (0.5 %) ophthalmic ointment Use 1 Drop in the right eye daily at bedtime. Patient should start on September 22, 2023. - lisinopril (ZESTRIL) 40 mg tablet Take 1 tablet by mouth twice daily. Facility-Administered Medications as of 11/14/2023 - perflutren lipid microspheres 1.3 mL in NaCl (PF) 0.9% 10 mL injection (DEFINITY) - sodium chloride 0.9 % (flush) 10 mL (BD POSIFLUSH) Problem List As Of Date 11/13/2023 Noted Resolved RSD (reflex sympathetic dystrophy) [G90.50] [...] 12/29/2021 Nicotine use disorder, F17.2 [F17.200] 04/01/2022 Hypertensive urgency [I16.0] 08/31/2022 Headache [R51.9] 08/31/2022 Mixed hyperlipidemia [E78.2] 09/01/2022 Left flank pain [R10.9] 11/17/2022 Hypertension, essential [I10] 07/16/2023 Left knee pain [M25.562] 07/16/2023 Left hamstring muscle strain [S76.312A] 07/16/2023 Left leg pain [M79.605] 07/16/2023 MONROY (dyspnea on exertion) [R06.09] 08/28/2023 S/P total knee arthroplasty, left [Z96.652 (more content not included)... Normal [facility] Large Joint Arthro/Inj: L kn ee jointon 11-13-2023 Noah De Anda, DEVAN N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 11/14/2023 8:34 AM Large Joint Arthro/Inj: L knee joint Informed Consent Consent Obtained: Verbal Cactus Protocol A moment to CARE was completed. SIGN IN Personnel directly involved with the procedure wore the appropriate PPE. Special Equipment: Yes Patient/Surrogate Stated/Verified: Patient name, Date of , Relevant allergies and Intended procedure TIME OUT Intended patient and procedure match the source document(s). Consent documented and matches the intended procedure. Relevant labs, photos, and/or imaging studies have been reviewed. Correct side/site marked and visible. Medications required for procedure verified. Fire risk assessed and interventions discussed. No implant(s) inserted. 11/13/2023 11:44 AM The procedure site was prepped in the usual sterile fashion. Site: L knee joint Aspirate: 2 mL bloody; sent for lab analysis Outcome: Tolerated well, no immediate complications Post-injection instructions were reviewed with the patient and the patient voiced understanding of these instructions. SIGN OUT All specimen containers correctly labeled. All instruments, equipment, possible retained foreign bodies accounted for. Post-procedure follow-up management communicated and Plan of Care Visit completed when applicable [facility] Bacteria Bld Culton 11-12-19 24 Bacteria identified Cx Nom (Bld) CULTURE, BLOOD: No growth 5 days Normal [facility] Comment on above: Performed By: #### 6 00-7 #### [facility] CLIA [id number] [address] [place] [address] [place] Performed By: #### 5 7021-8 #### [facility] CLIA [id number] [address] [place] [address] [place] Basic metabolic 2000 panelon 11-12-2023 Anion gap [Moles/Vol] 13 mmol/L Normal 8-15 [facility] Comment on above: Order Comment: Maged bullock Type: BLOOD SPECIMEN Ordering Facility: [facility] Address: [address] [place] [address] Performed By: #### 2 4321-2 #### [facility] CLIA [id number] [address] [place] [address] [place] Calcium [Mass/Vol] 9.4 mg/dL Normal 8.5-10.2 [facility] Comment on above: Order Comment: Maged bullock Type: BLOOD SPECIMEN Ordering Facility: [facility] Address: [address] [place] [address] Performed By: #### 2 4321-2 #### [facility] CLIA [id number] [address] [place] [address] [place] Chloride [Moles/Vol] 101 mmol/L Normal 98-107 [facility] Comment on above: Order Comment: Speci men Type: BLOOD SPECIMEN Ordering Facility: [facility] Address: [address] [place] [address] Performed By: #### 2 4321-2 #### [facility] CLIA [id number] [address] [place] [address] [place] CO2 [Moles/Vol] 26 mmol/L Normal 22-30 [facility] Comment on above: Order Comment: Speci men Type: BLOOD SPECIMEN Ordering Facility: [facility] Address: [address] [place] [address] Performed By: #### 2 4321-2 #### [facility] CLIA [id number] [address] [place] [address] [place] Creatinine [Mass/Vol] 1.23 mg/dL High 0.73-1.22 [facility] Comment on above: Order Comment: Speci men Type: BLOOD SPECIMEN Ordering Facility: [facility] Address: [address] [place] [address] Performed By: #### 2 4321-2 #### [facility] CLIA [id number] [address] [place] [address] [place] [facility] [place] Creatinine and Glomerular filtration rate.predicted panel (S/P/Bld) 69 mL/min/1.73m??? Normal >=60 [facility] Comment on above: Order Comment: Speci men Type: BLOOD SPECIMEN Ordering Facility: [facility] Address: [address] [place] [address] Result Comment: Catherine mated Glomerular Filtration Rate (eGFR) is calculated using the 2020 CKD-EPI creatinine equation. This equation utilizes serum creatinine, sex, and age as parameters. The creatinine assay has traceable calibration to isotope dilution-mass spectrometry. Refer to KDIGO guidelines for clinical interpretation. In patients with unstable renal function, e.g. those with acute kidney injury, the eGFR may not accurately reflect actual GFR. Performed By: #### 2 4321-2 #### [facility] CLIA [id number] [address] [place] [address] [place] Glucose [Mass/Vol] 112 mg/dL High 74-99 [facility] Comment on above: Order Comment: Maged bullock Type: BLOOD SPECIMEN Ordering Facility: [facility] Address: [address] [place] [address] Result Comment: The [place] Diabetes Association (ADA) provides guidance for cutoff [...] Standards of Medical Care in Diabetes 2016, [place] [employer]. Diabetes Care. 2016.39(Suppl 1). Performed By: #### 2 4321-2 #### [facility] CLIA [id number] [address] [place] [address] [place] Potassium [Moles/Vol] 4.1 mmol/L Normal 3.7-5.1 [facility] Comment on above: Order Comment: Maged bullock Type: BLOOD SPECIMEN Ordering Facility: [facility] Address: [address] [place] [address] Performed By: #### 2 4321-2 #### [facility] CLIA [id number] [address] [place] [address] [place] Sodium [Moles/Vol] 140 mmol/L Normal 136-144 [facility] Comment on above: Order Comment: Maged bullock Type: BLOOD SPECIMEN Ordering Facility: [facility] Address: [address] [place] [address] Performed By: #### 2 4321-2 #### [facility] CLIA [id number] [address] [place] [address] [place] [facility] Urea nitrogen [Mass/Vol] 18 mg/dL Normal 9-24 [facility] Comment on above: Order Comment: Speci men Type: BLOOD SPECIMEN Ordering Facility: [facility] Address: [address] [place] [address] Performed By: #### 2 4321-2 #### [facility] CLIA [id number] [address] [place] [address] [place] CBC W Auto Differential pane l (Bld)on 11-12-2023 Basophils (Bld) [#/Vol] 0.07 10*3/uL Normal <0.11 [facility] Comment on above: Order Comment: Speci men Type: BLOOD SPECIMEN Ordering Facility: [facility] Address: [address] [place] [address] Performed By: #### 5 7021-8 #### [facility] CLIA [id number] [address] [place] [address] [place] Basophils/100 WBC (Bld) 0.8 % Normal [facility] Comment on above: Order Comment: Speci men Type: BLOOD SPECIMEN Ordering Facility: [facility] Address: [address] [place] [address] Performed By: #### 5 7021-8 #### [facility] CLIA [id number] [address] [place] [address] [place] [facility] Differential cell count method Nom (Bld) Auto Normal [facility] Comment on above: Order Comment: Speci men Type: BLOOD SPECIMEN Ordering Facility: [facility] Address: [address] [place] [address] Performed By: #### 5 7021-8 #### [facility] CLIA [id number] [address] [place] [address] [place] Eosinophils (Bld) [#/Vol] 0.31 10*3/uL Normal <0.46 [facility] Comment on above: Order Comment: Speci men Type: BLOOD SPECIMEN Ordering Facility: [facility] Address: [address] [place] [address] Performed By: #### 5 7021-8 #### [facility] CLIA [id number] [address] [place] [address] [place] Eosinophils/100 WBC (Bld) 3.4 % Normal [facility] Comment on above: Order Comment: Speci men Type: BLOOD SPECIMEN Ordering Facility: [facility] Address: [address] [place] [address] Performed By: #### 5 7021-8 #### [facility] CLIA [id number] [address] [place] [address] [place] Erythrocyte distribution width (RBC) [Ratio] 13.0 % Normal 11.5-15.0 [facility] Comment on above: Order Comment: Speci men Type: BLOOD SPECIMEN Ordering Facility: [facility] Address: [address] [place] [address] Performed By: #### 5 7021-8 #### [facility] CLIA [id number] [address] [place] [address] [place] Hematocrit (Bld) [Volume fraction] 40.0 % Normal 39.0-51.0 [facility] Comment on above: Order Comment: Speci men Type: BLOOD SPECIMEN Ordering Facility: [facility] Address: [address] [place] [address] Performed By: #### 5 7021-8 #### [facility] CLIA [id number] [address] [place] [address] [place] Hemoglobin (Bld) [Mass/Vol] 13.1 g/dL Normal 13.0-17.0 [facility] Comment on above: Order Comment: Speci men Type: BLOOD SPECIMEN Ordering Facility: [facility] Address: [address] [place] [address] Performed By: #### 5 7021-8 #### [facility] CLIA [id number] [address] [place] [address] [place] Immature granulocytes (Bld) [#/Vol] 10*3/uL Normal <0.10 [facility] Comment on above: Order Comment: Speci men Type: BLOOD SPECIMEN Ordering Facility: [facility] Address: [address] [place] [address] Performed By: #### 5 7021-8 #### [facility] CLIA [id number] [address] [place] [address] [place] Immature granulocytes/100 WBC (Bld) 0.2 % Normal [facility] Comment on above: Order Comment: Speci men Type: BLOOD SPECIMEN Ordering Facility: [facility] Address: [address] [place] [address] Performed By: #### 5 7021-8 #### [facility] CLIA [id number] [address] [place] [address] [place] Lymphocytes (Bld) [#/Vol] 1.90 10*3/uL Normal 1.00-4.00 [facility] Comment on above: Order Comment: Speci men Type: BLOOD SPECIMEN Ordering Facility: [facility] Address: [address] [place] [address] Performed By: #### 5 7021-8 #### [facility] CLIA [id number] [address] [place] [address] [place] Lymphocytes/100 WBC (Bld) 20.9 % Normal [facility] Comment on above: Order Comment: Speci men Type: BLOOD SPECIMEN Ordering Facility: [facility] Address: [address] [place] [address] Performed By: #### 5 7021-8 #### [facility] CLIA [id number] [address] [place] [address] [place] MCH (RBC) [Entitic mass] 28.7 pg Normal 26.0-34.0 [facility] Comment on above: Order Comment: Speci men Type: BLOOD SPECIMEN Ordering Facility: [facility] Address: [address] [place] [address] Performed By: #### 5 7021-8 #### [facility] CLIA [id number] [address] [place] [address] [place] MCHC (RBC) [Mass/Vol] 32.8 g/dL Normal 30.5-36.0 [facility] Comment on above: Order Comment: Speci men Type: BLOOD SPECIMEN Ordering Facility: [facility] Address: [address] [place] [address] Performed By: #### 5 7021-8 #### [facility] CLIA [id number] [address] [place] [address] [place] MCV (RBC) [Entitic vol] 87.7 fL Normal 80.0-100.0 [facility] Comment on above: Order Comment: Speci men Type: BLOOD SPECIMEN Ordering Facility: [facility] Address: [address] [place] [address] Performed By: #### 5 7021-8 #### [facility] CLIA [id number] [address] [place] [address] [place] Monocytes (Bld) [#/Vol] 0.80 10*3/uL Normal <0.87 [facility] Comment on above: Order Comment: Speci men Type: BLOOD SPECIMEN Ordering Facility: [facility] Address: [address] [place] [address] Performed By: #### 5 7021-8 #### [facility] CLIA [id number] [address] [place], [place] [address] [place] [address] [place] Monocytes/100 WBC (Bld) 8.8 % Normal [facility] Comment on above: Order Comment: Speci men Type: BLOOD SPECIMEN Ordering Facility: [facility] Address: [address] [place] [address] Performed By: #### 5 7021-8 #### [facility] CLIA [id number] [address] [place] [address] [place] Neutrophils (Bld) [#/Vol] 5.98 10*3/uL Normal 1.45-7.50 [facility] Comment on above: Order Comment: Speci men Type: BLOOD SPECIMEN Ordering Facility: [facility] Address: [address] [place] [address] Performed By: #### 5 7021-8 #### [facility] CLIA [id number] [address] [place] [address] [place] Neutrophils/100 WBC (Bld) 65.9 % Normal [facility] Comment on above: Order Comment: Speci men Type: BLOOD SPECIMEN Ordering Facility: [facility] Address: [address] [place] [address] Performed By: #### 5 7021-8 #### [facility] CLIA [id number] [address] [place] [address] [place] Nucleated RBC (Bld) [#/Vol] Normal [facility] Comment on above: Order Comment: Speci men Type: BLOOD SPECIMEN Ordering Facility: [facility] Address: [address] [place] [address] Performed By: #### 5 7021-8 #### [facility] CLIA [id number] [address] [place] [address] [place] Nucleated RBC/100 WBC (Bld) [Ratio] Normal [facility] Comment on above: Order Comment: Speci men Type: BLOOD SPECIMEN Ordering Facility: [facility] Address: [address] [place] [address] Performed By: #### 5 7021-8 #### [facility] CLIA [id number] [address] [place] [address] [place] Platelet mean volume (Bld) [Entitic vol] 9.7 fL Normal 9.0-12.7 [facility] Comment on above: Order Comment: Speci men Type: BLOOD SPECIMEN Ordering Facility: [facility] Address: [address] [place] [address] Performed By: #### 5 7021-8 #### [facility] CLIA [id number] [address] [place] [address] [place] Platelets (Bld) [#/Vol] 361 10*3/uL Normal 150-400 [facility] Comment on above: Order Comment: Speci men Type: BLOOD SPECIMEN Ordering Facility: [facility] Address: [address] [place] [address] Performed By: #### 5 7021-8 #### [facility] CLIA [id number] [address] [place] [address] [facility] RBC (Bld) [#/Vol] 4.56 10*6/uL Normal 4.20-6.00 [facility] Comment on above: Order Comment: Speci men Type: BLOOD SPECIMEN Ordering Facility: [facility] Address: [address] [place] [address] Performed By: #### 5 7021-8 #### [facility] CLIA [id number] [address] [place] [address] [facility] WBC (Bld) [#/Vol] 9.08 10*3/uL Normal 3.70-11.00 [facility] Comment on above: Order Comment: Speci men Type: BLOOD SPECIMEN Ordering Facility: [facility] Address: [address] [place] [address] Performed By: #### 5 7021-8 #### [facility] CLIA [id number] [address] [place] [address] [facility] ED NOTEon 11-12-2023 ED NOTE HNO ID: [id number] Author: MILA BALLARD RN Service: Emergency Medicine Author Type: Registered Nurse Type: ED Notes Filed: 11/12/2023 20:49 Note Text: Patient discharge instructions given to patient. Patient educated on discharge instructions. Patient denied having questions at this time regarding discharge instructions. Patient discharged home at this time with patient's spouse. Normal [facility] ED NOTE HNO ID: [id number] Author: COLUMBA JULIAN RN Service: ? Author Type: Registered Nurse Type: ED Notes Filed: 11/13/2023 16:42 Note Text: Emergency Services: ED Call Back Questionnaire SERVICE DATE: 11/12/2023 Are you feeling better? Yes Any questions about discharge instructions and follow-up care? No Were you able to make a follow up appointment? Yes Do you have any further questions? No Is there anything that we could have done differently to improve your ED visit? No SIGNATURE: Columba Julian RN PATIENT NAME: Ruddy Ruvalcaba DATE: November 13, 2023 TIME: 4:41 PM [facility] ED NOTE HNO ID: [id number] Author: MILA BALLARD RN Service: Emergency Medicine Author Type: Registered Nurse Type: ED Notes Filed: 11/12/2023 20:22 Note Text: Physician at bedside. [facility] ED NOTE HNO ID: [id number] Author: MILA BALLARD RN Service: Emergency Medicine Author Type: Registered Nurse Type: ED Notes Filed: 11/12/2023 19:14 Note Text: Change of shift report received from Nelli Mora RN. I assumed patient care at this time. [facility] ED NOTE HNO ID: [id number] Author: MILA BALLARD RN Service: Emergency Medicine Author Type: Registered Nurse Type: ED Notes Filed: 11/12/2023 19:13 Note Text: Patient informed about the name of the medication(s), what the medication(s) is(are) for, and what to expect with/from med administration. Patient given opportunity to ask questions. Medication(s) include: Dilaudid. [facility] ED NOTE HNO ID: [id number] Author: COLUMBA JULIAN RN Service: ? Author Type: Registered Nurse Type: ED Notes Filed: 11/12/2023 19:08 Note Text: Dr Sandy patton [facility] ED NOTE HNO ID: [id number] Author: NELLI BAKER RN Service: ? Author Type: Registered Nurse Type: ED Notes Filed: 11/12/2023 17:42 Note Text: Left knee replacement 09/18/2023. Pt reports no issues until 1 week prior. Pt reached out to surgeon; blood work ordered. Pt saw results in blood work and came to ED. Pt reports left knee swelling x 1 week - worsening. Pain throbbing / shooting; does reports history of RSD. Pt reports fever at home - no thermometer - states his body was burning up and then he was chattering". Denies N/V/D. Reports N/T to left leg. Normal [facility] ED PROV NOTEon 11-12-2023 ED PROV NOTE HNO ID: [id number] Author: LORRAINE ASTUDILLO MD Service: Emergency Medicine Author Type: Physician Type: ED Provider Notes Filed: 11/12/2023 21:03 Note Text: ED Provider Note Patient Name: Ruddy Ruvalcaba : 1970 SERVICE DATE: 11/12/23 History Patient presents with: Knee Swelling Ruddy Ruvalcaba is a 53 year old male with history of a left total knee replacement September 18, 2023 who presents with Knee Swelling. Patient took nothing for this prior to arrival. - Symptoms began 1 weeks prior to arrival. - Severity: moderate - Timing: constant - Quality: sore and swelling - Knee Swelling is exacerbated by movement. - Knee Swelling is not exacerbated by rest. - Symptoms are associated with chills and subjective fever. - Symptoms are not associated with trauma. - Improved by nothing. - Not improved by rest Patient has been having pain and swelling over the past week left total knee replacement thinks he has been running fever he has had chills and sweats he did have inflammatory markers checked 2 days ago which were elevated. Decrease in his range of motion over the past week and worsening pain. He had his surgery done at [facility] By Dr. Delgado PAST MEDICAL HISTORY No date: Bilateral renal stones 10/01/2015: Essential hypertension 10/22/2022: Fatty infiltration of liver No date: Kidney stones No date: Reflex sympathetic dystrophy of other specified site 10/01/2015: S/P insertion of spinal cord stimulator No date: Uncontrolled hypertension PAST SURGICAL HISTORY 10/09/2015: ARTHRS KNE SURG W/MENISCECTOMY MED/LAT W/SHVG; Right Comment: Right knee arthroscopy medial meniscectomy 10/26/2016: ARTHRS KNE SURG W/MENISCECTOMY MED/LAT W/SHVG; Right 10/09/2015: ARTHRS KNEE DRLG OSTEOCHOND DISSECANS INT FIXJ; Right Comment: PF and medial distal femoral chondroplasties 11/14/2018: COLONOSCOPY FLX DX W/COLLJ SPEC WHEN PFRMD Comment: Colonoscopy 2013: CYSTO W LITHOTRIPSY Comment: renal calculi x 2 2000's: HERNIA REPAIR W/MESH No date: PAST SURGICAL HISTORY OF Comment: nose-reconstruction 80's: PAST SURGICAL HISTORY OF; Left Comment: hand - plate and screws 80's: PAST SURGICAL HISTORY OF; Left Comment: humerous fx 90's: PAST SURGICAL HISTORY OF; Right Comment: Knee scope x's2 No date: PAST SURGICAL HISTORY OF; Left Comment: scope x's 2 knee No date: PAST SURGICAL HISTORY OF; Left Comment: acl repair 3x's 12/01/2021: TOTAL KNEE REPLACEMENT; Right Comment: Right total robotic knee replacement FAMILY HISTORY Problem Relation Age of Onset other (negative) Father Social History Tobacco Use Smoking status: Every Day Current packs/day: 0.25 Average packs/day: 0.3 packs/day for 35.1 years (8.8 ttl pk-yrs) Types: Cigarettes Start date: 10/20/1988 Smokeless tobacco: Never Tobacco comments: 0.5 ppd since 2011 Vaping Use Vaping status: Never Used Substance and Sexual Activity Alcohol use: Not Currently Drug use: Not Currently Types: Marijuana Sexual activity: Yes Partners: Female ALLERGIES No Known Allergies Review of Systems Constitutional: Positive for chills, diaphoresis and fever. Respiratory: Negative for cough and shortness of breath. Gastrointestinal: Negative for nausea and vomiting. Musculoskeletal: Positive for gait problem. Skin: Negative for rash and wound. Allergic/Immunologic: Negative for environmental allergies, food allergies and immunocompromised state. Psychiatric/Behavioral: Negative for confusion. The patient is not nervous/anxious. Physical Exam Vitals [11/12/23 1737] BP Pulse Temp Temp src Resp SpO2 Weight Height 185/89 79 36.3 ?C (97.4 ?F) Temporal 20 97 % 112.5 kg (248 lb) 1.778 m (5' 10") Physical Exam Vitals and nursing note reviewed. Exam conducted with a electrical transmission engineer present. Constitutional: General: He is not in acute distress. Appearance: Normal appearance. He is not ill-appearing, toxic-appearing or diaphoretic. Pulmonary: Effort: Pulmonary effort is normal. No respiratory distress. Musculoskeletal: General: Swelling and tenderness present. No deformity. Comments: Well-healed incision but there is edema to the left knee consistent with effusion. Decreased range of motion with pain. Patient can flex to about 45 degrees. Distal neurovascular intact. Skin: General: Skin is warm and dry. Capillary Refill: Capillary refill takes less than 2 seconds. Findings: No erythema or rash. Neurological: General: No focal deficit present. Mental Status: He is alert and oriented to person, place, and time. Psychiatric: Mood and Affect: Mood normal. Behavior: Behavior normal. Thought Content: Thought content normal. Judgment: Judgment normal. Diagnostic Testing ED Labs Ordered and Reviewed - No data to display Procedures ED Course / Clinical Impression Clinical Impressions as of 11/12/232056 Acute pain of left knee MDM / Disposition / Plan Pa (more content not included)... Normal [facility] XR KNEE 2V AP/LAT LTon 11-11 XR KNEE 2V AP/LAT LT * * *Final Report* * * DATE OF EXAM: Nov 12 2023 6:59PM LDX 5206 - XR KNEE 2V AP/LAT LT / PROCEDURE REASON: Post Operative Assessment * * * * Physician Interpretation * * * * LEFT KNEE X-RAY SERIES HISTORY: Post Operative Assessment TECHNIQUE: AP and lateral COMPARISON: 10/03/2023. RESULT: No fracture, dislocation or destructive changes. Left total knee arthroplasty and proximal tibial screw and ACL reconstruction. No hardware complication. There is some soft tissue swelling of the knee. IMPRESSION: No acute fracture or dislocation of the left knee. Bi Tester: VÍCTOR Transcribe Date/Time: Nov 12 2023 8:25P Dictated by : JESSY FUNG MD This examination was interpreted and the report reviewed and electronically signed by: JESSY FUNG MD on Nov 12 2023 8:29PM EST [id number] Normal [facility] CRP SerPl-mCncon 11-10-2023 CRP [Mass/Vol] 3.5 mg/dL High <0.9 [facility] Comment on above: Order Comment: Speci men Type: BLOOD SPECIMEN Ordering Facility: [facility] Address: [address] [place] [address] Performed By: #### 1 988-5 #### [facility] CLIA [id number] [address] [place] [address] [id number] [id number] [place] ESR Westergren method (Bld) [Velocity]on 11-10-2023 ESR (Bld) [Velocity] 37 mm/h High 0-15 [facility] Comment on above: Order Comment: Speci men Type: BLOOD SPECIMEN Ordering Facility: [facility] Address: [address] [place] [address] Performed By: #### 2 4362-6, 3084-1, 87771-7 #### [facility] CLIA [id number] [address] [place] CNTHERAPYon 11-08-2023 CNTHERAPY OT/PT/Speech Visit ( PTWS) -- RUDDY RUVALCABA ([id number]) 1970 M Date Time Provider Department 11/08/23 10:45 AM TROY GRAHAM PTWS Date Time Provider Department Center 11/08/2023 10:45 AM [id number], COLIN PTWS [facility] Reason for Visit: PT Eval [747] Primary Visit Diagnosis:Post-traumatic osteoarthritis of left knee [M17.32] Allergies As of Date: 11/08/2023 (No Known Allergies) Date Reviewed: 10/13/2023 Reviewed by: Noah De Anda APRN.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 - Fully Assessed Prescriptions as of 11/08/2023 - oxyCODONE IR (ROXICODONE) 5 mg immediate release tablet Take 1-2 tablets by mouth every 6 hours as needed for pain for up to 7 days. - labetalol (TRANDATE) 200 mg tablet Take 1.5 tablets by mouth three times a day. - pregabalin (LYRICA) 75 mg capsule Take 1 capsule by mouth two times a day for 30 days. - ascorbic acid, vitamin C, (VITAMIN C) 500 mg tablet Take 1 tablet by mouth two times a day with meals for 14 days. - acetaminophen (TYLENOL) 500 mg tablet Take 2 tablets by mouth every 8 hours as needed for pain. - aspirin, enteric coated (ECOTRIN LOW STRENGTH) 81 mg EC tablet Take 1 tablet by mouth two times a day for 28 days. - erythromycin (ROMYCIN) 5 mg/gram (0.5 %) ophthalmic ointment Use 1 Drop in the right eye daily at bedtime. Patient should start on September 22, 2023. - lisinopril (ZESTRIL) 40 mg tablet Take 1 tablet by mouth twice daily. Facility-Administered Medications as of 11/08/2023 - perflutren lipid microspheres 1.3 mL in NaCl (PF) 0.9% 10 mL injection (DEFINITY) - sodium chloride 0.9 % (flush) 10 mL (BD POSIFLUSH) Cotton Picking Machine Operator: Therapy (PT/OT/Speech/Resp) ID: [id number] 11/08/2023 11:18 AM Author: TROY GRAHAM Signed by TROY GRAHAM PT on 11/08/2023 at 11:18 AM Document text: Program_ID:[id number] Access Code: [email or web address] URL: [email or web address] Date: 11-08-2023 Prepared By: Troy Graham Program Notes Exercises - Knee Flexion Step - 2 x daily - 7 x weekly - 2 sets - 10-15 reps - Supine Heel Slide with Strap - 2 x daily - 7 x weekly - 2-3 sets - 10-15 reps - Seated Passive Knee Extension with Weight - 1-2 x daily - 7 x weekly - 1-2 sets - reps - Active Straight Leg Raise with Quad Set - 2 x daily - 7 x weekly - 2-3 sets - 10 reps - Standing Heel Raises - 2 x daily - 7 x weekly - 2-3 sets - 10-12 reps - Hip ABDuction - 2 x daily - 7 x weekly - 2 sets - 10 reps Normal [facility] THERAPY NTon 11-08-2023 THERAPY NT HNO ID: [id number] Author: TROY GRAHAM PT Service: ? Author Type: Physical Therapist Type: Therapy (PT/OT/Speech/Resp) Filed: 11/08/2023 11:18 Note Text: Program_ID:[id number] Access Code: [email or web address] URL: [email or web address] Date: 11-08-2023 Prepared By: Troy Graham Program Notes Exercises - Knee Flexion Step - 2 x daily - 7 x weekly - 2 sets - 10-15 reps - Supine Heel Slide with Strap - 2 x daily - 7 x weekly - 2-3 sets - 10-15 reps - Seated Passive Knee Extension with Weight - 1-2 x daily - 7 x weekly - 1-2 sets - reps - Active Straight Leg Raise with Quad Set - 2 x daily - 7 x weekly - 2-3 sets - 10 reps - Standing Heel Raises - 2 x daily - 7 x weekly - 2-3 sets - 10-12 reps - Hip ABDuction - 2 x daily - 7 x weekly - 2 sets - 10 reps Normal [facility] CNPNon 10-27-2023 CNPN Telephone (AGCARDPOB ) -- RUDDY RUVALCABA ([id number]) 1970 M Date Time Provider Department 10/27/23 MOISÉS MUNGUIA [employer] During your visit today, we recorded the following information about you: Ruben Cardoza LPN 10/27/2023 9:01 AM Signed Last seen 02/03/2023. Message sent to clerical to schedule an overdue follow up LUIS Freire Amber W 10/27/2023 10:02 AM Signed M/MC Message. Pt scheduled for 02/09/2024 at 2:00pm Allergies As of Date: 10/27/2023 (No Known Allergies) Date Reviewed: 10/13/2023 Reviewed by: Noah De Anda APRN.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 - Fully Assessed Reason for Visit: Appointment [186] Prescriptions as of 10/27/2023 - oxyCODONE IR (ROXICODONE) 5 mg immediate release tablet Take 1-2 tablets by mouth every 6 hours as needed for pain for up to 7 days. Patient should start on October 28, 2023. - pregabalin (LYRICA) 75 mg capsule Take 1 capsule by mouth two times a day for 30 days. - ascorbic acid, vitamin C, (VITAMIN C) 500 mg tablet Take 1 tablet by mouth two times a day with meals for 14 days. - acetaminophen (TYLENOL) 500 mg tablet Take 2 tablets by mouth every 8 hours as needed for pain. - aspirin, enteric coated (ECOTRIN LOW STRENGTH) 81 mg EC tablet Take 1 tablet by mouth two times a day for 28 days. - labetalol (TRANDATE) 200 mg tablet Take 1.5 tablets by mouth three times a day. - erythromycin (ROMYCIN) 5 mg/gram (0.5 %) ophthalmic ointment Use 1 Drop in the right eye daily at bedtime. Patient should start on September 22, 2023. - lisinopril (ZESTRIL) 40 mg tablet Take 1 tablet by mouth twice daily. Facility-Administered Medications as of 10/27/2023 - perflutren lipid microspheres 1.3 mL in NaCl (PF) 0.9% 10 mL injection (DEFINITY) - sodium chloride 0.9 % (flush) 10 mL (BD POSIFLUSH) Problem List As Of Date 10/27/2023 Noted Resolved RSD (reflex sympathetic dystrophy) [G90.50] [...] 12/29/2021 Nicotine use disorder, F17.2 [F17.200] 04/01/2022 Hypertensive urgency [I16.0] 08/31/2022 Headache [R51.9] 08/31/2022 Mixed hyperlipidemia [E78.2] 09/01/2022 Left flank pain [R10.9] 11/17/2022 Hypertension, essential [I10] 07/16/2023 Left knee pain [M25.562] 07/16/2023 Left hamstring muscle strain [S76.312A] 07/16/2023 Left leg pain [M79.605] 07/16/2023 MONROY (dyspnea on exertion) [R06.09] 08/28/2023 S/P total knee arthroplasty, left [Z96.652] 09/19/2023 Encounter Status:Closed by FROYLAN GOLD on 10/27/23 [facility] CNPN Telephone (ANDRES) -- RUDDY RUVALCABA ([id number]) 1970 M Date Time Provider Department 10/27/23 HEATH DELGADO During your visit today, we recorded the following information about you: Cinthia Multani 10/27/2023 10:18 AM Signed Lvm for patient to call back and reschedule appointment on 11/07/2023 can be scheduled with Heath Delgado or Noah De Anda. Lindsay Weston 10/27/2023 10:35 AM Signed Patient called in, is rescheduled for 11/28/23 with , I offered Kyle on 11/07/23, patient wanted to make sure that was to wait that long to see . Please advise. Allergies As of Date: 10/27/2023 (No Known Allergies) Date Reviewed: 10/13/2023 Reviewed by: Noah De Anda APRN.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 - Fully Assessed Reason for Visit: Appointment [186] Prescriptions as of 10/31/2023 - oxyCODONE IR (ROXICODONE) 5 mg immediate release tablet Take 1-2 tablets by mouth every 6 hours as needed for pain for up to 7 days. Patient should start on October 28, 2023. - labetalol (TRANDATE) 200 mg tablet Take 1.5 tablets by mouth three times a day. - pregabalin (LYRICA) 75 mg capsule Take 1 capsule by mouth two times a day for 30 days. - ascorbic acid, vitamin C, (VITAMIN C) 500 mg tablet Take 1 tablet by mouth two times a day with meals for 14 days. - acetaminophen (TYLENOL) 500 mg tablet Take 2 tablets by mouth every 8 hours as needed for pain. - aspirin, enteric coated (ECOTRIN LOW STRENGTH) 81 mg EC tablet Take 1 tablet by mouth two times a day for 28 days. - erythromycin (ROMYCIN) 5 mg/gram (0.5 %) ophthalmic ointment Use 1 Drop in the right eye daily at bedtime. Patient should start on September 22, 2023. - lisinopril (ZESTRIL) 40 mg tablet Take 1 tablet by mouth twice daily. Facility-Administered Medications as of 10/31/2023 - perflutren lipid microspheres 1.3 mL in NaCl (PF) 0.9% 10 mL injection (DEFINITY) - sodium chloride 0.9 % (flush) 10 mL (BD POSIFLUSH) Problem List As Of Date 10/27/2023 Noted Resolved RSD (reflex sympathetic dystrophy) [G90.50] [...] 12/29/2021 Nicotine use disorder, F17.2 [F17.200] 04/01/2022 Hypertensive urgency [I16.0] 08/31/2022 Headache [R51.9] 08/31/2022 Mixed hyperlipidemia [E78.2] 09/01/2022 Left flank pain [R10.9] 11/17/2022 Hypertension, essential [I10] 07/16/2023 Left knee pain [M25.562] 07/16/2023 Left hamstring muscle strain [S76.312A] 07/16/2023 Left leg pain [M79.605] 07/16/2023 MONROY (dyspnea on exertion) [R06.09] 08/28/2023 S/P total knee arthroplasty, left [Z96.652] 09/19/2023 Encounter Status:Closed by CINTHIA MULTANI on 10/31/23 [facility] XR KNEE 3V AP/LAT/MERCHANT L Ton 10-03-2023 XR KNEE 3V AP/LAT/MERCHANT LT * * *Final Report* * * DATE OF EXAM: Oct 03 2023 10:51AM KOLBY 5208 - XR KNEE 3V AP/LAT/MERCHANT LT / PROCEDURE REASON: multiple diagnoses * * * * Physician Interpretation * * * * EXAMINATION: XR KNEE 3V AP/LAT/MERCHANT LT PATIENT/TECHNOLOGIST PROVIDED HISTORY: Follow-up for left knee replacement CLINICAL INFORMATION: 53 years old Male with Chronic pain of left knee TECHNIQUE: XR KNEE 3V AP/LAT/MERCHANT LT Laterality: LEFT Number of different views (projections): 3 COMPARISON: Radiographs 09/18/2023, 05/09/2023 RESULT: Status post LEFT total knee arthroplasty with metal-backed patellar component unchanged in alignment and position. No periprosthetic lucency or fracture. Unchanged interference screws in the proximal tibia and Endobutton in the distal lateral femur related to prior ACL reconstruction. Interval resolution of postoperative soft tissue emphysema. Residual postoperative soft tissue swelling and effusion. Partially assessed intact appearing RIGHT total knee arthroplasty with metal-backed patellar component. IMPRESSION: Unchanged LEFT total knee arthroplasty. Bi Tester: VÍCTOR Transcribe Date/Time: Oct 03 2023 4:58P Dictated by : REJI VILLEGAS DO This examination was interpreted and the report reviewed and electronically signed by: REJI VILLEGAS DO on Oct 03 2023 5:01PM EST [id number] [facility] XR Knee AP and Lateral and M erchantson 10-03-2023 IMPRESSION: Unchanged LEFT total knee arthroplasty. Bi Tester: VÍCTOR Transcribe Date/Time: Oct 03 2023 4:58P Dictated by : REJI VILLEGAS DO This examination was interpreted and the report reviewed and electronically signed by: REJI VILLEGAS DO on Oct 03 2023 5:01PM [facility] * * *Final Report* * * DATE OF EXAM: Oct 03 2023 10:51AM KOLBY 5208 - XR KNEE 3V AP/LAT/MERCHANT LT / PROCEDURE REASON: multiple diagnoses * * * * Physician Interpretation * * * * EXAMINATION: XR KNEE 3V AP/LAT/MERCHANT LT PATIENT/TECHNOLOGIST PROVIDED HISTORY: Follow-up for left knee replacement CLINICAL INFORMATION: 53 years old Male with Chronic pain of left knee TECHNIQUE: XR KNEE 3V AP/LAT/MERCHANT LT Laterality: LEFT Number of different views (projections): 3 COMPARISON: Radiographs 09/18/2023, 05/09/2023 RESULT: Status post LEFT total knee arthroplasty with metal-backed patellar component unchanged in alignment and position. No periprosthetic lucency or fracture. Unchanged interference screws in the proximal tibia and Endobutton in the distal lateral femur related to prior ACL reconstruction. Interval resolution of postoperative soft tissue emphysema. Residual postoperative soft tissue swelling and effusion. Partially assessed intact appearing RIGHT total knee arthroplasty with metal-backed patellar component. [facility] Provider, Bryan Colon - 10/03/2023 * * *Final Report* * * DATE OF EXAM: Oct 03 2023 10:51AM KOLBY 5208 - XR KNEE 3V AP/LAT/MERCHANT LT / PROCEDURE REASON: multiple diagnoses * * * * Physician Interpretation * * * * EXAMINATION: XR KNEE 3V AP/LAT/MERCHANT LT PATIENT/TECHNOLOGIST PROVIDED HISTORY: Follow-up for left knee replacement CLINICAL INFORMATION: 53 years old Male with Chronic pain of left knee TECHNIQUE: XR KNEE 3V AP/LAT/MERCHANT LT Laterality: LEFT Number of different views (projections): 3 COMPARISON: Radiographs 09/18/2023, 05/09/2023 RESULT: Status post LEFT total knee arthroplasty with metal-backed patellar component unchanged in alignment and position. No periprosthetic lucency or fracture. Unchanged interference screws in the proximal tibia and Endobutton in the distal lateral femur related to prior ACL reconstruction. Interval resolution of postoperative soft tissue emphysema. Residual postoperative soft tissue swelling and effusion. Partially assessed intact appearing RIGHT total knee arthroplasty with metal-backed patellar component. IMPRESSION IMPRESSION: Unchanged LEFT total knee arthroplasty. Bi Tester: VÍCTOR Transcribe Date/Time: Oct 03 2023 4:58P Dictated by : REJI VILLEGAS DO This examination was interpreted and the report reviewed and electronically signed by: REJI VILLEGAS DO on Oct 03 2023 5:01PM EST [facility] Radiology Study observation (narrative) [facility] XR Knee AP and Lateral and M erchantsOrdered By: Ccf Provider on 10-03-2023 [facility] Basic metabolic 2000 panelon 09-19-2023 Anion gap [Moles/Vol] 12 mmol/L Normal 8-15 [facility] Comment on above: Order Comment: Speci men Type: BLOOD SPECIMEN Ordering Facility: [facility] Address: [address] [place] [address] Performed By: #### 2 4321-2 #### [facility] CLIA [id number] [address] [place] [address] [place] Calcium [Mass/Vol] 8.7 mg/dL Normal 8.5-10.2 [facility] Comment on above: Order Comment: Speci men Type: BLOOD SPECIMEN Ordering Facility: [facility] Address: [address] [place] [address] Performed By: #### 2 4321-2 #### [facility] CLIA [id number] [address] [place] [address] [place] Chloride [Moles/Vol] 102 mmol/L Normal 98-107 [facility] Comment on above: Order Comment: Speci men Type: BLOOD SPECIMEN Ordering Facility: [facility] Address: [address] [place] [address] Performed By: #### 2 4321-2 #### [facility] CLIA [id number] [address] [place] CO2 [Moles/Vol] 23 mmol/L Normal 22-30 [facility] Comment on above: Order Comment: Speci men Type: BLOOD SPECIMEN Ordering Facility: [facility] Address: [address] [place] [address] Performed By: #### 2 4321-2 #### [facility] CLIA [id number] [address] [place] [address] [place] Creatinine [Mass/Vol] 1.41 mg/dL High 0.73-1.22 [facility] Comment on above: Order Comment: Speci men Type: BLOOD SPECIMEN Ordering Facility: [facility] Address: [address] [place] [address] Performed By: #### 2 4321-2 #### [facility] CLIA [id number] [address] Creatinine and Glomerular filtration rate.predicted panel (S/P/Bld) 59 mL/min/1.73m??? Low >=60 [facility] Comment on above: Order Comment: Speci men Type: BLOOD SPECIMEN Ordering Facility: [facility] Address: [address] [place] [address] Result Comment: Catherine mated Glomerular Filtration Rate (eGFR) is calculated using the 2020 CKD-EPI creatinine equation. This equation utilizes serum creatinine, sex, and age as parameters. The creatinine assay has traceable calibration to isotope dilution-mass spectrometry. Refer to KDIGO guidelines for clinical interpretation. In patients with unstable renal function, e.g. those with acute kidney injury, the eGFR may not accurately reflect actual GFR. Performed By: #### 2 4321-2 #### [facility] CLIA [id number] [address] [place] [address] [place] Glucose [Mass/Vol] 113 mg/dL High 74-99 [facility] Comment on above: Order Comment: Maged bullock Type: BLOOD SPECIMEN Ordering Facility: [facility] Address: [address] [place] [address] Result Comment: The [place] Diabetes Association (ADA) provides guidance for cutoff [...] Standards of Medical Care in Diabetes 2016, [place] [employer] Association. Diabetes Care. 2016.39(Suppl 1). Performed By: #### 2 4321-2 #### [facility] CLIA [id number] [address] [place] [address] [place] Potassium [Moles/Vol] 4.9 mmol/L Normal 3.7-5.1 [facility] Comment on above: Order Comment: Maged bullock Type: BLOOD SPECIMEN Ordering Facility: [facility] Address: [address] [place] [id number] Performed By: #### 2 4321-2 #### [facility] CLIA [id number] [address] [place] [address] [place] Sodium [Moles/Vol] 137 mmol/L Normal 136-144 [facility] Comment on above: Order Comment: Maged bullock Type: BLOOD SPECIMEN Ordering Facility: [facility] Address: [address] [place] [address] Performed By: #### 2 4321-2 #### [facility] CLIA [id number] [address] Urea nitrogen [Mass/Vol] 24 mg/dL Normal 9-24 [facility] Comment on above: Order Comment: Speci men Type: BLOOD SPECIMEN Ordering Facility: [facility] Address: [address] [place] [address] Performed By: #### 2 4321-2 #### [facility] CLIA [id number] [address] CASE MANAGEMon 09-19-2023 CASE MANAGEM HNO ID: [id number] Author: AUDREY SHARP RN Service: ? Author Type: Registered Nurse Type: Care Mgt Progress Note Filed: 09/19/2023 10:45 Note Text: CARE MANAGEMENT DISCHARGE NOTE SERVICE DATE: September 19, 2023 SERVICE TIME: 10:45 AM Admission Date: 09/18/2023 LOS: 0 days Discharge Arrangement Discharge Arrangement: Home with Relative, Home with Home Health Provider Name: [facility] Caregiver Assessment Caregiver is ready, willing and able to meet the patient's needs as recommended by the inter-professional team: Yes Name of Caregiver: Transportation Arrangements Transportation Arrangements: Car- to transport Handoff Communication: Handoff to: Primary Care Physician Primary Care Physician Name/Phone: Jossy Natarajan APRN- [phone] Additional Information: Discharge order written for today. [facility] will be seeing the patient for Home PT with a start of care date within 24-48 hours. Notified [facility] of the patients discharge home today. Discharge Information Row Name Admission (Current) from 09/18/[address] [facility] Start of Care -- Within 24-48 hours SIGNATURE: Audrey Sharp RN PATIENT NAME: Ruddy Ruvalcaba DATE: September 19, 2023 TIME: 10:45 AM CONTACT #: [phone] [facility] CASE MANAGEM HNO ID: [id number] Author: AUDREY SHARP RN Service: ? Author Type: Registered Nurse Type: Care Mgt Progress Note Filed: 09/19/2023 09:47 Note Text: CARE MANAGEMENT PROGRESS NOTE SERVICE DATE: 09/19/2023 SERVICE TIME: 9:47 AM LOS: 0 days Needs Prior to Discharge: OT/PT Evaluation [facility] able to accept. department will continue to follow for DC needs. SIGNATURE: Audrey Sharp RN PATIENT NAME: Ruddy Ruvalcaba DATE: September 19, 2023 TIME: 9:47 AM PAGER/CONTACT #: [phone] [facility] CASE MGT INIT [facility] 2023 CASE MGT INIT [facility] HNO ID: [id number] Author: AUDREY SHARP RN Service: ? Author Type: Registered Nurse Type: Care Mgt Initial Assessment Filed: 09/19/2023 09:44 Note Text: CARE MANAGEMENT: ASSESSMENT AND DISCHARGE PLAN SERVICE DATE: September 19, 2023 SERVICE TIME: 9:43 AM PCP: Jossy Natarajan APRN.CNP Primary Contact: Extended Emergency Contact Information Primary Emergency Contact: PegHansa reeder Address: [address] [place] [address] Mobile Relation: Spouse Admission Status: Extended Recovery Insurance Provider: N/A Discharge Planning requested by: Per Department Practice Potential Transition Plans Home OT/PT Advance Directives Current Advance Directive: None Tie Bucker Attempted to Assist with AD Completion: Yes Action: Patient Unwilling Current Living Arrangements and Support Lives with: Spouse/significant other Type of Residence: Private Residence (House) Does the patient have to climb stairs at home?: Yes;stairs outside the home;stairs within the home Support: Spouse/significant other How do you manage to accomplish the following: Independent: Ambulation;Bathe/Shower;Dr ess;Meals/Meal Prep;Going to the bathroom;Medication Management;Transportation to appointments/community Current Services/Equipment Current Post-Acute Service(s): DME Current DME Type: Shower seat, Cane, Walker Discharge Planning Patient Goal(s): Be able to go home [place] Choice Explained: [place] of [place] Given: Yes Level of Care Discussed: Home Care Are you interested in bedside delivery of your medications? Yes Discharge Planning Participant(s): Patient Patient/Family Comments: Caregiver Assessment: Caregiver is ready, willing and able to meet the patient's needs as recommended by the inter-professional team: Yes Name of Caregiver: Transport at Discharge: Transportation Arrangements: Car Needs Prior to Discharge: Needs Prior to Discharge: OT/PT Evaluation Post-Acute Discharge Plan: Review of the chart and met with the patient. The patient lives with his in 2 story home with his bedroom on the 2nd floor. PT- Pending. Discussed discharge planning with the patient. The patient plans on disharging home with Home PT. Referral to [facility]. Per Rn Occupational the patient has HCAPS at 100% through 10/30/23. CM department will continue to follow for DC needs. SIGNATURE: Audrey Sharp RN PATIENT NAME: Ruddy Ruvalcaba DATE: September 19, 2023 TIME: 9:43 AM CONTACT #: [phone] Normal [facility] CBC panel Auto (Bld)on 09-18 Erythrocyte distribution width (RBC) [Ratio] 13.1 % Normal 11.5-15.0 [facility] Comment on above: Order Comment: Maged bullock Type: BLOOD SPECIMEN Ordering Facility: [facility] Address: [address] [place] [address] Performed By: #### 5 8410-2 #### [facility] CLIA [id number] [address] [place] Hematocrit (Bld) [Volume fraction] 35.6 % Low 39.0-51.0 [facility] Comment on above: Order Comment: Maged bullock Type: BLOOD SPECIMEN Ordering Facility: [facility] Address: [address] [place] [address] Performed By: #### 5 8410-2 #### [facility] CLIA [id number] [address] [place] [address] [place] Hemoglobin (Bld) [Mass/Vol] 11.7 g/dL Low 13.0-17.0 [facility] Comment on above: Order Comment: Maged bullock Type: BLOOD SPECIMEN Ordering Facility: [facility] Address: [address] [place] [address] Performed By: #### 5 8410-2 #### [facility] CLIA [id number] [address] [place] [address] [place] MCH (RBC) [Entitic mass] 29.9 pg Normal 26.0-34.0 [facility] [place] Comment on above: Order Comment: Speci men Type: BLOOD SPECIMEN Ordering Facility: [facility] Address: [address] [place] [address] Performed By: #### 5 8410-2 #### [facility] CLIA [id number] [address] MCHC (RBC) [Mass/Vol] 32.9 g/dL Normal 30.5-36.0 [facility] Comment on above: Order Comment: Speci men Type: BLOOD SPECIMEN Ordering Facility: [facility] Address: [address] [place] [address] Performed By: #### 5 8410-2 #### [facility] CLIA [id number] [address] MCV (RBC) [Entitic vol] 91.0 fL Normal 80.0-100.0 [facility] [place] Comment on above: Order Comment: Speci men Type: BLOOD SPECIMEN Ordering Facility: [facility] Address: [address] [place] [address] Performed By: #### 5 8410-2 #### [facility] CLIA [id number] [address] Nucleated RBC (Bld) [#/Vol] 10*3/uL Normal <0.01 [facility] Comment on above: Order Comment: Speci men Type: BLOOD SPECIMEN Ordering Facility: [facility] Address: [address] [place] [address] Performed By: #### 5 8410-2 #### [facility] CLIA [id number] [address] Platelet mean volume (Bld) [Entitic vol] 10.5 fL Normal 9.0-12.7 [facility] Comment on above: Order Comment: Speci men Type: BLOOD SPECIMEN Ordering Facility: [facility] Address: [address] [place] [address] Performed By: #### 5 8410-2 #### [facility] CLIA [id number] [address] [place] [address] [facility] [place] Platelets (Bld) [#/Vol] 235 10*3/uL Normal 150-400 [facility] Comment on above: Order Comment: Maged bullock Type: BLOOD SPECIMEN Ordering Facility: [facility] Address: [address] [place] [address] Performed By: #### 5 8410-2 #### [facility] CLIA [id number] [address] [place] [address] [place] RBC (Bld) [#/Vol] 3.91 10*6/uL Low 4.20-6.[address] [facility] Comment on above: Order Comment: Speci men Type: BLOOD SPECIMEN Ordering Facility: [facility] Address: [address] [place] [address] Performed By: #### 5 8410-2 #### [facility] CLIA [id number] [address] [place] [address] [facility] [place] WBC (Bld) [#/Vol] 14.85 10*3/uL High 3.70-11.00 [facility] Comment on above: Order Comment: Maged bullock Type: BLOOD SPECIMEN Ordering Facility: [facility] Address: [address] [place] [address] Performed By: #### 5 8410-2 #### [facility] CLIA [id number] [address] [place] CNCOon 09-19-2023 CNCO Letter Text Normal [facility] CNDSon 09-19-2023 CN HNO ID: [id number] Author: HEATH DELGADO MD Service: Orthopaedic Surgery Author Type: Physician Packaging Clerk Type: Discharge Summary Filed: 09/20/2023 09:40 Note Text: -- Attestation signed by Heath Delgado MD at 09/20/2023 9:40 AM I agree with the above discharge summary. Reviewed, authenticated, and electronically signed by Heath Delgado MD -- DISCHARGE SUMMARY PATIENT NAME: Ruddy Ruvalcaba ADMISSION DATE: 09/18/2023 DISCHARGE DATE: 09/19/2023 PATIENT DISCHARGE SUMMARY C O N F I D E N T I A L I N F O R M A T I O N The following is a brief overview of your hospitalization. Some of the information contained on this summary may be confidential. This information should be kept in your records and should be shared with your regular doctor. These instructions explain what you or your care aide need to do to continue your care at home or at another healthcare facility Please go over these instructions with your nurse and care aide. If you are not sure about something, please ask. -- -------- Highest Readmission Risk Score: 6 The 30 day readmissions risk score is derived from an internally validated risk model which evaluates patient level characteristics, utilization history, medication orders and lab results up until the day of discharge. Patients with a score of 40 or above are considered highest risk for readmission. Specific patient level drivers will be listed at the bottom of the summary. The 30 day readmissions risk score is derived from an internally validated risk model which evaluates patient level characteristics, utilization history, medication orders and lab results up until the day of discharge. Patients with a score of 40 or above are considered highest risk for readmission. Where I Will be Going after Discharge: Home with Home Health My Condition at Discharge: Stable PRINCIPAL DIAGNOSIS: (Reason after study for this admission): Procedure(s): ROBOTIC ASSISTED TOTAL KNEE ARTHROPLASTY OTHER DIAGNOSES: Patient Active Hospital Problem List: No active hospital problems. OPERATIONS PERFORMED: Procedure(s): ROBOTIC ASSISTED TOTAL KNEE ARTHROPLASTY My Doctors and Medical Team: My Main Hospital Doctor: Heath Arevalo MD PHYSICAL EXAM: See daily progress note Vitals: BP 147/81 Pulse 70 Temp 36.7 ?C (98.1 ?F) (Oral) Resp 18 Ht 177.8 cm (5' 10") Wt 127 kg (279 lb 15.8 oz) SpO2 95% BMI 40.17 kg/m? SUMMARY OF WHAT HAPPENED WHILE PATIENT WAS IN THE HOSPITAL: The patient was followed by Dr. Delgado in clinic for left knee osteoarthritis. It was determined the patient would benefit from left total knee arthroplasty. The procedure, its risks, benefits, and potential complications were discussed in detail prior to surgery. The patient conveyed understanding of all topics and consented to surgery. The patient was admitted to the hospital. Underwent an elective left total knee arthroplasty on 09/18/[address] Delgado. The patient tolerated the procedure well and was returned to the Post Anesthesia Care Unit in stable condition. Vital signs per PACU protocol. VTE risk assessment performed. O2 therapy monitored by Respiratory Therapy to include incentive spirometry, ADL, wound and support per physician order set postop protocol. PT and OT to evaluate and treat. IV antibiotics, antiemetics, aspirin for DVT prophylaxis and pain medication were given. The patient progressed with physical therapy. The patient was noted to have COLIN post operatively. Internal medicine recommended IV fluids, avoiding nephrotoxic drugs and repeat BMP. Unfortunately the patient lost IV access and refused new IV placement and also declined repeat blood work in the hospital. The patient is agreeable to repeat BMP in 5 days as outpatient. Otherwise lab values and vital signs were monitored and remained stable. The incision remained clean, dry and intact. Thigh and calf are not swollen. No signs of DVT or infection. The patient progressed with physical therapy towards goal of safety and independence. Patient was determined safe for discharge to home with home health care on 09/19/2023. TREATMENT / WOUND CARE: If you have any concerns about your wound, please contact the office. Keep wound and incision area clean and dry. You are being sent from the hospital with an incisional wound VAC. This means that the incision has been closed, and a negative pressure suction device has been placed on top of the incision in order to aid with wound healing. This dressing can be taken off 7 days and the entire apparatus, including the suction device, can be thrown away. It is a disposable device, and the battery shuts (more content not included)... [facility] NURSING PROGon 09-19-2023 NURSING PROG HNO ID: [id number] Author: ADA HUITRON RN Service: ? Author Type: Registered Nurse Type: Nursing Progress Note Filed: 09/19/2023 13:12 Note Text: 1305: Patient was advised a new IV would need to be placed for fluids due to increased creatinine level and repeat BMP would be drawn at 1500. Patient is refusing. Israel Santacruz PA-C and Dr. Abraham made aware. [facility] THERAPY NTon 09-19-2023 THERAPY NT HNO ID: [id number] Author: QUIN GODOY, OTR/L Service: Occupational Therapy Author Type: Occupational Therapist Type: Therapy (PT/OT/Speech/Resp) Filed: 09/19/2023 09:41 Note Text: Occupational Therapy Evaluation Summary SERVICE DATE: 09/19/2023 SERVICE TIME: 854 to 927 ROOM: [place] [address] OT 6 Clicks Score: 19 Total Joint Replacement Discharge Readiness: Cleared from Occupational Therapy DISCHARGE RECOMMENDATIONS Home Anticipated Discharge Needs: Physical Assist at Home, Supervision at Home Physical Assist at Home for: Cleaning, Laundry, Meals, Shopping, Transportation Supervision at Home due to: Other: See Comment (wet shower transfer safety) ASSESSMENT Response to Therapy Interventions: Good Participation in Activities, On-Track to Achieve Discharge Goals Pt pleasant and agreeable, states he is famliar with process as this is his second TKA. Spouse will be home to assist. Educated on home going instructions. Pt is safe to return home with no further needs. 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 Will sleep on main floor in recline, spouse RN, no fall in last 6 mos. Baseline Cognition: Oriented to self, Oriented to time, Oriented to place, Oriented to situation SUBJECTIVE Agreeble to be seen COGNITION Responsiveness: Alert, Awake Follows Commands: 3-step Commands THERAPY DIAGNOSIS Reduced mobility-other, Decreased activities of daily living (ADL), Muscle Weakness (generalized), Unsteadiness on feet, General symptoms and signs-other TREATMENT INTERVENTIONS Evaluation, Self Fci Management (92524) Timed Code Treatment (minutes): 18 Skilled Treatment Time (minutes): 33 TRAINING AND EDUCATION PROVIDED Assistive Device Use, Bed Mobility, Benefits of In-Hospital Mobility, Discharge Planning, Disease Specific Education, Expected Functional Level, Functional Mobility Involving ADLs, Grooming Tasks, Health Literacy, Home Set-up/Modifications, Insight into Deficits, Lower Extremity Bathing, Lower Extremity Dressing, Life Roles/Routines/Habits, Positioning, Precautions/Restrictions, Role of Occupational Therapy, Safety/Judgment, Self-Efficacy, Sitting Balance to Improve [place] with ADLs/Self-Care, Standing Balance to Improve [place] with ADLs/Self-Care, Transfer - Bed to Chair, Transfer - Sit to Stand, Treatment Protocol, Upper Extremity Bathing, Upper Extremity Dressing THERAPEUTIC SKILLS USED Activity Dosing, Cues for Sequencing/Proper Technique for Activity, Cuing Tactile, Cuing Verbal, Cuing Visual, Management of Critical Lines, Tubes and/or Drains, Movement Facilitation, Physical Assist, Task Analysis Learning, Therapeutic Use of Self, Teach-Back for Education FUNCTIONAL STATUS Activities of Daily Living Assist Level Additional Information Feeding Independent Grooming Set Up Bathing Upper Body Set Up Bathing Lower Body Additional Information, Minimal Assistance based on decreased balance, pain Dressing Upper Body Set Up Dressing Lower Body Minimal Assistance Toileting Contact Guard Assistance Mobility Assist Level Additional Information Bed Mobility Supine To Sit: Supervision Sit to Stand Contact Guard Assistance Stand to Sit Contact Guard Assistance Bed to Chair Contact Guard Assistance, Total Assistance, Maximal Assistance, Additional Information Bed To Chair Transfer Type: Stepping Bed To Chair Transfer Equipment: Wheeled Walker Cues to push off from bed vs pull up with RW Toilet/Commode Shower Functional Mobility GOALS Patient will demonstrate understanding of importance of mobility during hospital stay and resolve all self-care, cognitive and/or coping needs identified. Progress Toward Goals: Progressing as expected Rehab Potential: Excellent PLAN SIGNATURE: DOTTY Hou/Minh PATIENT NAME: Ruddy Ruvalcaba DATE: September 19, 2023 TIME: 9:41 AM [facility] THERAPY NT HNO ID: [id number] Author: LACHELLE BLEDSOE PT Service: Physical Therapy Author Type: Physical Therapist Type: Therapy (PT/OT/Speech/Resp) Filed: 09/19/2023 10:34 Note Text: -- Summary: PT Eval -- Physical Therapy Evaluation Summary SERVICE DATE: 09/19/2023 SERVICE TIME: 0930 to 1003 ROOM: [id number] PT 6 Clicks Score: 21 Total Joint Replacement Discharge Readiness: Cleared from Physical Therapy DISCHARGE RECOMMENDATIONS Home PT Recommended Discharge Disposition Comments: Pt is currently performing functional mobility below baseline and continues to require skilled home PT for strengthening and progression of ROM tolerance to return to normalized gait pattern and reduced assist levels with mobility. Recommended Discharge Equipment: No equipment needs anticipated ASSESSMENT Response to Therapy Interventions: Good Participation in Activities, Improved Tolerance for Activity, On-Track to Achieve Discharge Goals, Pain, Requires Additional Time to Complete Activities Pt is currently performing functional mobility below PLOF with increased time and assist to complete all mobility. Pt completed ambulation and stair negotiation to safely enter home. Reviewed discharge instructions and recommendations with pt with no further questions/concerns noted from pt. 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 Pt was previously driving and completed all ADL's unassisted. Pt reports no hx of falls within the past 6 months. 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 SUBJECTIVE Pt agreeable to PT eval, eager for discharge to home. THERAPY DIAGNOSIS Reduced mobility-other, Abnormalities of gait and mobility-other, Difficulty walking-musculoskeletal TREATMENT INTERVENTIONS Evaluation, Therapeutic Exercise (42698), Therapeutic Activity (11971), Gait Training (95035) Timed Code Treatment (minutes): 18 Skilled Treatment Time (minutes): 33 $ Evaluation-Low (84886) Billed Units: 1 unit Therapeutic Exercise (11673) Treatment Minutes: 3 $ Therapeutic Exercise (75369) Billed Units: 0 units Therapeutic Activity (75437) Treatment Minutes: 5 $ Therapeutic Activity (91635) Billed Units: 0 units Gait Training (18912) Treatment Minutes: 10 $ Gait Training (53159) Billed Units: 1 unit THERAPEUTIC EXERCISE Exercise Exercise: *HEP handout provided and reviewed with patient with the previously listed exercises + seated knee flexion ROM; pt reporting understanding and stated having no concerns with completing; exercises not performed during session due to focus on functional mobility TRAINING AND EDUCATION PROVIDED Anatomy and Impact on Deficits, Assistive Device Use, Bed Mobility, Benefits of In-Hospital Mobility, Discharge Planning, Disease Specific Education, Equipment, Exercise Program, Expected Functional Level, Falls Prevention, Gait Pattern, Reduction of Deviations, Handout Issued, Home Set-up/Modifications, Modalities, Patient Exercise/Therapy Program Support Needs, Positioning, Precautions/Restrictions, Pre-gait Activities, Role of Physical Therapy, Standing Balance, Stair Navigation, Transfers, Treatment Protocol, Car Transfers, Home Safety, Skin Care and Infection Prevention Guidelines, Energy Conservation THERAPEUTIC SKILLS USED Activity Dosing, Cues for Sequencing/Proper Technique for Activity, Cuing Verbal, Management of Critical Lines, Tubes and/or Drains, Movement Facilitation, Muscle Activation Facilitation, Physical Assist, Postural Alignment Correction, Teach-Back for Education, Cuing Visual, Task Analysis Learning FUNCTIONAL STATUS Bed Mobility Sit to Supine: Additional Information, Supervision completed with partially elevated HOB per preference Scooting: Additional Information, Supervision prior to stand Transfers Sit To Stand: Additional Information, Supervision, Contact Guard Aaron (more content not included)... [facility] THERAPY NT HNO ID: [id number] Author: LACHELLE BLEDSOE PT Service: Physical Therapy Author Type: Physical Therapist Type: Therapy (PT/OT/Speech/Resp) Filed: 09/19/2023 09:15 Note Text: -- Summary: PT MV -- PHYSICAL THERAPY MISSED VISIT SERVICE DATE: 09/19/2023 SERVICE TIME: 913 ROOM: [place] [address] Patient not seen due to Patient Not Available (pt with OT). SIGNATURE: Lachelle Bledsoe PT PATIENT NAME: Ruddy Ruvalcaba DATE: September 19, 2023 TIME: 9:15 AM [facility] ANES POSTPROC EVALon 024 ANES POSTPROC EVAL HNO ID: [id number] Author: MAGDA MARQUIS MD Service: Anesthesiology Author Type: Anesthesiologist Type: Anesthesia Postprocedure Evaluation Filed: 09/18/2023 18:40 Note Text: POST ANESTHESIA EVALUATION NOTE : 1970 Procedure Summary Date: 09/18/23 Room / Location: [place] [address] / [place] Anesthesia Start: 1505 Anesthesia Stop: 1716 Procedure: ROBOTIC ASSISTED TOTAL KNEE ARTHROPLASTY (Left: Knee) Diagnosis: Post-traumatic osteoarthritis of left knee Chronic pain of left knee (Post-traumatic osteoarthritis of left knee [M17.32]) (Chronic pain of left knee [M25.562, G89.29]) Surgeons: Heath Delgado MD Responsible Provider: Magda Marquis MD Anesthesia Type: general ASA Status: 3 Anesthesia Type: general Airway Type: ETT Last Vitals Vitals Value Taken Time BP 153/89 09/18/23 1831 Temp 36.9 ?C (98.4 ?F) 09/18/23 1716 Pulse 70 09/18/23 1838 Resp 27 09/18/23 1838 SpO2 97 % 09/18/23 1838 Vitals shown include unfiled device data. Post Anesthesia Patient Status Patient Evaluation: PACU. PACU/ICU Patient Condition: stable. Anticipated Disposition: phase 2 then home. Neurological Status: aware and responsive. Pulmonary Status: breathing comfortably on room air Airway Control: returned to baseline unsupported. Cardiovascular Status: stable. Pain Management: clinically adequate - multimodal analgesia pain management approach Postoperative Hydration: acceptable. Intraoperative Events: no significant anesthesia events Post Operative Nausea/Vomiting Status: no significant post operative nausea or vomiting Recommendation: continue current plan of care. Anesthesia Observations No Documentation SIGNATURE: Magda Marquis MD PATIENT NAME: Ruddy Ruvalcaba DATE: September 18, 2023 TIME: 6:39 PM CSN: [id number] [facility] ANES PRE-OPon 09-18-2023 ANES PRE-OP HNO ID: [id number] Author: MAGDA MARQUIS MD Service: Anesthesiology Author Type: Anesthesiologist Type: Anesthesia Preprocedure Evaluation Filed: 09/18/2023 12:48 Note Text: ANESTHESIOLOGY DAY OF SURGERY NOTE : 1970 Procedure Information Date/Time: 09/18/23 1430 Procedure: ROBOTIC ASSISTED TOTAL KNEE ARTHROPLASTY (Left: Knee) Location: [place] [address] / [place] Surgeons: Heath Delgado MD Estimated body mass index is 38.17 kg/m? as calculated from the following: Height as of 08/28/23: 177.8 cm (5' 10"). Weight as of 08/28/23: 120.7 kg (266 lb). Most recent hematocrit and potassium results: Hematocrit 44.4 09/08/2023 Potassium 4.8 08/28/2023 Relevant Problems No relevant active problems I - PHYSICAL EVALUATION AIRWAY Patient intubated: No. Tracheostomy tube not present Mallampati: II. TM distance: <3 FB. Neck ROM: full ROM without neurological symptoms. Mouth opening: adequate. Short neck: no. Thick neck: no DENTAL Dental findings: missing tooth/teeth. Dentures, upper: complete. Dentures, lower: partial. Additional exam findings: yes. CARDIOVASCULAR Rhythm: regular Rate: normal PULMONARY Breath sounds clear to auscultation. ABDOMINAL Obese: obesity present. II - ANESTHESIA PLAN ASA Score: 3 Anesthetic Plan: general Airway type: ETT The patient is a current smoker. NPO Status: adequate Beta [place] Monitoring Plan Monitoring plan: Standard ASA. Post Procedure Analgesic Plan Postoperative analgesic plan: parenteral or oral opioids and multimodal analgesia. Informed Consent Anesthetic risks, benefits, alternatives, personnel and consent discussed: yes. Patient / Responsible Alliance Party agrees to proceed: yes Patient / Surrogate agrees to blood products: yes DNR status not reviewed with patient and/or family prior to surgery. Significant changes in the patient condition since the History and Physical, not otherwise documented in primary service progress note: no. Potential Anesthesia issues that may suggest increased risk of complications or contraindication to planned procedure: none. Vitals Value Taken Time BP 175/99 09/18/23 1211 Pulse 73 09/18/23 1211 Resp 18 09/18/23 1211 Temp 37 ?C (98.6 ?F) 09/18/23 1211 SpO2 97 % 09/18/23 1211 Facility-Administered Medications as of 09/18/2023 Medication Dose Route Frequency - lidocaine (PF) 10 mg/mL (1 %) 1-2 mg injection (XYLOCAINE) 0.1-0.2 mL INTRADERMAL PRN - lactated ringers iv infusion 5-30 mL/hr INTRAVENOUS CONTINUOUS - NaCl 0.9% iv flush bag 20 mL INTRAVENOUS PRN - ceFAZolin 3 g in D5W 100 mL (ANCEF) 3 g INTRAVENOUS Pre-Op Once - tranexamic acid 1,000 mg in NaCl 0.9% 100 mL (CYKLOKAPRON) 1,000 mg INTRAVENOUS Pre-Op Once - tranexamic acid 1,000 mg in NaCl 0.9% 100 mL (CYKLOKAPRON) 1,000 mg INTRAVENOUS ONCE - [COMPLETED] acetaminophen 1,000 mg tab(s) (TYLENOL) 1,000 mg ORAL Pre-Op Once - [COMPLETED] celecoxib 200 mg cap(s) (CeleBREX) 200 mg ORAL Pre-Op Once - [COMPLETED] oxyCODONE ER 10 mg tab(s) (OxyCONTIN) 10 mg ORAL Pre-Op Once - scopolamine 1 mg over 3 days 1 Patch (TRANSDERM-SCOP) 1 Patch TRANSDERMAL Pre-Op Once - [COMPLETED] famotidine 20 mg injection (PEPCID) 20 mg INTRAVENOUS ONCE - midazolam (PF) 1-2 mg injection (VERSED) 1-2 mg INTRAVENOUS ONCE - [COMPLETED] promethazine 12.5 mg tab(s) (PHENERGAN) 12.5 mg ORAL Pre-Op Once - oxyCODONE IR 10 mg tab(s) (ROXICODONE) 10 mg ORAL ONCE - cyclobenzaprine 10 mg tab(s) (FLEXERIL) 10 mg ORAL ONCE Outpatient Medications as of 09/18/2023 Medication Sig - labetalol (TRANDATE) 200 mg tablet Take 1.5 tablets by mouth three times a day. - lisinopril (ZESTRIL) 40 mg tablet Take 1 tablet by mouth twice daily. - erythromycin (ROMYCIN) 5 mg/gram (0.5 %) ophthalmic ointment 1 application daily at bedtime. I have interviewed and examined the patient. I have reviewed the medical record and/or the pre-anesthesia evaluation, pertinent labs, and test results. This contains updated information obtained within 48 hours of Surgery/Procedure. SIGNATURE: Magda Marquis MD PATIENT NAME: Ruddy Ruvalcaba DATE: September 18, 2023 TIME: 12:47 PM CSN: [id number] Normal [facility] [place] CONSULTon 09-18-2023 CONSULT HNO ID: [id number] Author: ARASH ABRAHAM MD Service: General Internal Medicine Author Type: Physician Type: Consults Filed: 09/27/2023 17:02 Note Text: [facility]- Consultation RUDDY RUVALCABA : 1970 AGE: 53 SEX: M ACCTNUM: [id number] [facility]: [facility] LOCATION: [id number] ATTENDING PHYSICIAN: HEATH DELGADO DATE OF SERVICE: 09/18/2023 TIME OF SERVICE: 06:35 PM REASON FOR CONSULTATION: Postop medical management. HISTORY: This is a 53-year-old gentleman whose significant medical history includes osteoarthritis, hypertension, hyperlipidemia, tobacco abuse, obesity class 2, dyspnea with exertion, suspect obstructive sleep apnea, status post insertion of spinal cord stimulator. The patient underwent elective left total knee arthroplasty. The patient had uneventful intraoperative course. During initial evaluation, the patient is alert. Has no nausea, vomiting, lightheadedness, dizziness. His pain is well controlled. PAST MEDICAL HISTORY: As mentioned above. PAST SURGICAL HISTORY: Include arthroscopic knee surgery, endoscopy, hernia repair, right total knee replacement 11/2021. FAMILY HISTORY: Not significant. SOCIAL HISTORY: Smoked less than a quarter pack, quit in 1988. He does not drink alcohol. MEDICATIONS: His current home medication list reviewed. ALLERGIES: He has no known drug allergies. REVIEW OF SYSTEMS: HEENT/Neck: No history of glaucoma. No history of TIA, CVA, or seizure disorders. No history of chronic cough. He does have a history of mild dyspnea with exertion. No history of COPD. Does have a history of apnea and snoring. No history of coronary artery disease, congestive heart failure, or cardiac arrhythmia. History of hypertension. History of fatty liver. No hepatitis, colitis. Good appetite. Regular bowel movement. History of nephrolithiasis and at least 2-3 night micturition. No history of CKD. No history of recent urinary tract infection. No history of diabetes, hypothyroidism. No history of anxiety/depression. No history of DVTs, paresthesia of the feet. PHYSICAL EXAM: General: Obese gentleman. The patient is alert and oriented. HEENT: Sclerae anicteric. Oral mucosa dry. Neck: No thyromegaly appreciated. No carotid bruit heard. No lymphadenopathy of the neck. JVP flat. Lungs: Clear to auscultation bilaterally. Cardiovascular: S1, S2. Regular rhythm. No murmur, gallop, or rub appreciated. Abdomen: Soft, obese, nontender, nondistended. Bowel sounds present. No mass felt. Lower Extremities: No ankle edema noted. Good tibialis and pedis pulse felt. IMPRESSION: 1. Osteoarthritis, status post left total knee arthroplasty. Deep venous thrombosis prophylaxis as ordered by Sandy. 2. Hypertension. Continue Zestril and labetalol. 3. Chronic pain, status post pain pump placement. 4. Suspect obstructive sleep apnea. The patient will schedule sleep study as outpatient. 5. Hold other medication for now. Thank you very much for kind referral. Continue to follow while in the hospital. Arash Abraham M.D. Internal Medicine YARYJ:[id number] /[id number] [facility] OPERATIVE NOon 09-18-2023 OPERATIVE NO HNO ID: [id number] Author: HEATH DELGADO MD Service: Orthopaedic Surgery Author Type: Physician Type: Operative Report Filed: 09/18/2023 17:00 Note Text: Operative Report PATIENT NAME: Ruddy Ruvalcaba CSN: [id number] LOG ID: [id number] Surgery Date: 09/18/2023 Surgeon(s) and Packaging Clerk(s): Noah De Anda HOME CARE SPECIALIST - Phone Banker Surgeon(s) and Role: * Heath Delgado MD - Primary * Dae Cochran MD - Resident - Assisting 22 modifier--CASE COMPLEXTIY: HIGH- a 22 modifier was added to the case to reflect the increased complexity. The surgical procedure was more complex and involved due to the patient?s obesity with BMI greater than 35. Joint exposure was significantly more difficult and involved mobilization of abundant tissue in order to reduce risk of liza-operative complication. Closure was also more complex due to the patient's body habitus and abundant liza-articular adipose. Closure took approximately half an hour or longer than the standard closure. The case took significantly more time and effort than a standard arthroplasty procedure. No qualified orthopedic resident available BMI: Estimated body mass index is 38.17 kg/m? as calculated from the following: Height as of 08/28/23: 177.8 cm (5' 10"). Weight as of 08/28/23: 120.7 kg (266 lb). Procedure(s): Procedure(s) (LRB): ROBOTIC ASSISTED TOTAL KNEE ARTHROPLASTY (Left) Anesthesia: Choice - Anesthesia Consult Incision Start: 3:36 PM Incision Stop: 4:58 PM Attestation: I was present for and performed all critical portions of the case. rehabilitation assistant was necessary for safe patient positioning, sterile prepping and draping, assistance, positioning and protection, soft tissue retraction, protection of vital structures and suture management during the case, and superficial wound closure. Also critical for safe transit to the recovery room in stable condition. Preop Diagnosis: Pre-Op Diagnosis Codes: * Post-traumatic osteoarthritis of left knee [M17.32] * Chronic pain of left knee [M25.562, G89.29] Postop Diagnosis: Same as Pre-Op Diagnosis Codes: * Post-traumatic osteoarthritis of left knee [M17.32] * Chronic pain of left knee [M25.562, G89.29] Implants: Implant Name Type Inv. Item Serial No. Spray Machine Operator Lot No. LRB No. Used Action BASEPLATE TRIATHALON 4 TRITANIUM TIBIAL COATED STERILE KNEE - [id number] Joint - Knee BASEPLATE TRIATHALON 4 TRITANIUM TIBIAL COATED STERILE KNEE [facility] [id number] Left 1 Implanted INSERT TRIATHLON 4 11MM TIBIAL BEARING CONDYLAR STABILIZE STERILE KNEE - [id number] Joint - Knee INSERT TRIATHLON 4 11MM TIBIAL BEARING CONDYLAR STABILIZE STERILE KNEE [facility] [id number] Left 1 Implanted COMPONENT TRITANIUM 35MM METAL 10MM PATELLAR ASYMMETRIC KNEE - [id number] Joint - Knee COMPONENT TRITANIUM 35MM METAL 10MM PATELLAR ASYMMETRIC KNEE [facility] [id number] Left 1 Implanted COMPONENT TRIATHLON 5 PA FEMORAL CRUCIATE RETAIN BEAD KNEE LEFT - [id number] Joint - Knee COMPONENT TRIATHLON 5 PA FEMORAL CRUCIATE RETAIN BEAD KNEE LEFT [facility] AUDUY Left 1 Implanted Problem List: ACTIVE PROBLEM LIST Rsd (Reflex Sympathetic Dystrophy) Uncontrolled Hypertension S/P Insertion of Spinal Cord Stimulator Complex Tear of Medial Meniscus of Right Knee As Current Injury Chronic Postoperative Pain Tear of Lateral Meniscus of Right Knee, Current Rupture of Anterior Cruciate Ligament of Right Knee Headaches Class 2 Severe Obesity Due to Excess Calories With Serious Comorbidity and Body Mass Index (Bmi) of 38.0 to 38.9 in Adult (Hcc) Post-Traumatic Osteoarthritis of Right Knee Tobacco Smoker, 1 Pack of Cigarettes Or Less Per Day S/P Knee Replacement Nicotine use disorder, F17.2 Hypertensive Urgency Headache Mixed Hyperlipidemia Left Flank Pain Hypertension, Essential Left Knee Pain Left Hamstring Muscle Strain Left Leg Pain Monroy (Dyspnea On Exertion) OPERATIVE INDICATIONS: The patient has a long history of progressive left knee pain, arthritis, and degeneration. Non-operative treatment has been attempted but has not improved or controlled the symptoms and pain that occurs during normal daily activities. Knee motion has also become limited and is restricting the patient. Total knee arthroplasty was recommended. The risks, benefits and potential complications of the arthroplasty surgery were discussed with the patient in detail. Specific details of the surgical procedure, hospitalization, recovery, rehabilitation, and long-term precautions were also presented. Pre-operative teaching was provided. Implant/prosthesis selection was outlined, and the many options available were explained; the final choice will be made at the time of the procedure to match the anatomy and condition of the bone, ligaments, tendons, and muscles. The patient was evaluated medically for pre-operative optimization, and risk assessment. Liza-operative bloo (more content not included)... [facility] XR KNEE 2V AP/LAT LTon 09-17 XR KNEE 2V AP/LAT LT * * *Final Report* * * DATE OF EXAM: Sep 18 2023 5:40PM MDX 5206 - XR KNEE 2V AP/LAT LT / PROCEDURE REASON: Post Operative Assessment * * * * Physician Interpretation * * * * EXAM: XR KNEE 2V AP/LAT LT HISTORY: Post Operative Assessment COMPARISON: May 17, 2023. FINDINGS: Prior ACL reconstruction, similar to prior. Total knee arthroplasty is in place with subcutaneous gas and soft tissue swelling. Wound VAC is seen anteriorly. IMPRESSION: Left total knee arthroplasty. Bi Tester: VÍCTOR Transcribe Date/Time: Sep 18 2023 7:12P Dictated by : BENNY ALEJO MD This examination was interpreted and the report reviewed and electronically signed by: BENNY ALEJO MD on Sep 18 2023 7:14PM EST [id number] [facility] Heart Perfusion W stress and W radionuclide Shanelle 09-11-2023 * * *Final Report* * * DATE OF EXAM: Sep 11 2023 12:59PM WON 0006 - NM CARDIAC PERF STRESS/PHARM / PROCEDURE REASON: MONROY (dyspnea on exertion) * * * * Physician Interpretation * * * * Stress Brand Director Report: [facility] Date of service: 09/11/2023 8:14:04 AM Supervising physician: Bertha Keita MD PATIENT: Name: MR. RUDDY RUVALCABA Age: 53 years Gender: M The supervising physician was in the department and immediately available. * * * Final * * * PATIENT: Name: MR. RUDDY RUVALCABA Age: 53 years Gender: M CONCLUSIONS: 1. SPECT Perfusion Study: Normal. 2. There is no scintigraphic evidence for inducible ischemia. 3. No evidence of scarred myocardium. 4. Left ventricle is normal in size. The left ventricle systolic function is normal. 5. Right ventricle is normal in size. The right ventricle systolic function is normal. 6. This is a low risk scan. Gated Stress FBP LVEF % 71 Prior Study Comparison No prior nuclear cardiology exam available for comparison. Nuclear Med Report:1-Day Gated SPECT Myocardial Perfusion with Regadenoson Stress: Myocardial perfusion imaging was performed at rest 30 minutes following the IV injection of the radiotracer. The patient received 0.4 mg of regadenoson, via rapid IV push, immediately followed by radiotracer IV. Gated post stress tomographic imaging was performed 30 to 60 minutes later. See administered radiotracer and doses below. [facility] Date of service: 09/11/2023 8:14:04 AM Ordering Physician: MOISÉS MUNGUIA. Requesting Physician: MOISÉS MUNGUIA Indication: Assessment for suspected CAD and CP - ECG uniterpretable OR unable to exercise Interpreting physician: Nabor Miguel MD Height: 177.80 cm BSA: 2.44 m Weight: 120.66 kg BMI: 38.2 kg/m Imaging Protocol Limitation Reason Diaphragmatic attenuation and Patient motion. Exam Type: Rest Stress Radiopharm: Tc-99m Tetrofosmin Tc-99m Tetrofosmin Dosage(mCi): 16.1 49.3 Stress Agent: Regadenoson 0.4mg Supply provided from [facility] Resting Blood Press: 180/118 mmHg Image Quality The overall study imaging quality was deemed to be good. The following technical issues were noted: Diaphragmatic attenuation and Patient motion. FINDINGS: Left Ventricle Wall Motion: Stress IR:3D - All segments are normal. Rest IR:3D - Gated Stress FBP - Reversibility - Stress IR:3D Stress IR:3D Gated Stress FBP LVEF: 71 % ED Volume: 150 ml ES Volume: 44 ml TID: 1.11 Perfusion Findings Stress IR:3D - Summed Score=0 All segments demonstrate normal perfusion. Rest IR:3D - Summed Score=0 All segments demonstrate normal perfusion. Stress IR:3D Rest IR:3D Summed Score=0 Summed Score=0 LEFT VENTRICLE The left ventricle is normal in size. Left ventricular systolic function is normal. Right Ventricle The right ventricle is normal in size. Right ventricle systolic function is normal. Stress Test Findings: There is no scintigraphic evidence for inducible ischemia. There is no evidence of scarring. * * * Final * * * Stress ECG Report: [facility] Date of service: 09/11/2023 8:14:04 AM Ordering physician: MOISÉS MUNGUIA education specialist: Sylvia Augustine RN Interpreting physician: Bertha Keita MD Patient name: MR. RUDDY RUVALCABA Age: 53 years Gender: M Height: 177.80 cm BSA: 2.44 m Weight: 120.66 kg BMI: 38.2 kg/m Indication: Dyspnea on exertion and Encounter for screening for cardiovascular disorders Stress ECG Conclusion: Conclusion: Normal Prior exam comparison: No prior CC exam Stress ECG Summary: The patient's resting heart rate was 70 bpm and blood pressure was 180/118 mmHg. The test was terminated due to end of protocol. No symptoms provoked during stress. The maximum heart rate was 80 bpm, which is 49% of the predicted heart rate for age. Peak blood pressure was 192/86 mmHg. The double product achieved was [id number]. Medications: Last Used LABETALOL 2 Days Resting ECG: Normal Sinus Rhythm and 1st Degree AV block Symptoms at rest: No symptoms Pharamcologic Protocol: Regadenoson Stress Exercise Tab (more content not included)... DIVISION OF RADIOLOGY Provider, [facility] - 09/11/2023 * * *Final Report* * * DATE OF EXAM: Sep 11 2023 12:59PM [facility] 0006 - NM CARDIAC PERF STRESS/PHARM / PROCEDURE REASON: MONROY (dyspnea on exertion) * * * * Physician Interpretation * * * * Stress Brand Director Report: [facility] Date of service: 09/11/2023 8:14:04 AM Supervising physician: Bertha Keita MD PATIENT: Name: MR. RUDDY RUVALCABA Age: 53 years Gender: M The supervising physician was in the department and immediately available. * * * Final * * * PATIENT: Name: MR. RUDDY RUVALCABA Age: 53 years Gender: M CONCLUSIONS: 1. SPECT Perfusion Study: Normal. 2. There is no scintigraphic evidence for inducible ischemia. 3. No evidence of scarred myocardium. 4. Left ventricle is normal in size. The left ventricle systolic function is normal. 5. Right ventricle is normal in size. The right ventricle systolic function is normal. 6. This is a low risk scan. Gated Stress FBP LVEF % 71 Prior Study Comparison No prior nuclear cardiology exam available for comparison. Nuclear Med Report:1-Day Gated SPECT Myocardial Perfusion with Regadenoson Stress: Myocardial perfusion imaging was performed at rest 30 minutes following the IV injection of the radiotracer. The patient received 0.4 mg of regadenoson, via rapid IV push, immediately followed by radiotracer IV. Gated post stress tomographic imaging was performed 30 to 60 minutes later. See administered radiotracer and doses below. [facility] Date of service: 09/11/2023 8:14:04 AM Ordering Physician: MOISÉS MUNGUIA. Requesting Physician: MOISÉS MUNGUIA Indication: Assessment for suspected CAD and CP - ECG uniterpretable OR unable to exercise Interpreting physician: Nabor Miguel MD Height: 177.80 cm BSA: 2.44 m Weight: 120.66 kg BMI: 38.2 kg/m Imaging Protocol Limitation Reason Diaphragmatic attenuation and Patient motion. Exam Type: Rest Stress Radiopharm: Tc-99m Tetrofosmin Tc-99m Tetrofosmin Dosage(mCi): 16.1 49.3 Stress Agent: Regadenoson 0.4mg Supply provided from [facility] Resting Blood Press: 180/118 mmHg Image Quality The overall study imaging quality was deemed to be good. The following technical issues were noted: Diaphragmatic attenuation and Patient motion. FINDINGS: Left Ventricle Wall Motion: Stress IR:3D - All segments are normal. Rest IR:3D - Gated Stress FBP - Reversibility - Stress IR:3D Stress IR:3D Gated Stress FBP LVEF: 71 % ED Volume: 150 ml ES Volume: 44 ml TID: 1.11 Perfusion Findings Stress IR:3D - Summed Score=0 All segments demonstrate normal perfusion. Rest IR:3D - Summed Score=0 All segments demonstrate normal perfusion. Stress IR:3D Rest IR:3D Summed Score=0 Summed Score=0 LEFT VENTRICLE The left ventricle is normal in size. Left ventricular systolic function is normal. Right Ventricle The right ventricle is normal in size. Right ventricle systolic function is normal. Stress Test Findings: There is no scintigraphic evidence for inducible ischemia. There is no evidence of scarring. * * * Final * * * Stress ECG Report: [facility] Date of service: 09/11/2023 8:14:04 AM Ordering physician: MOISÉS MUNGUIA education specialist: Sylvia Augustine RN Interpreting physician: Bertha Keita MD Patient name: MR. RUDDY RUVALCABA Age: 53 years Gender: M Height: 177.80 cm BSA: 2.44 m Weight: 120.66 kg BMI: 38.2 kg/m Indication: Dyspnea on exertion and Encounter for screening for cardiovascular disorders Stress ECG Conclusion: Conclusion: Normal Prior exam comparison: No prior CC exam Stress ECG Summary: The patient's resting heart rate was 70 bpm and blood pressure was 180/118 mmHg. The test was terminated due to end of protocol. No symptoms provoked during stress. The maximum heart rate was 80 bpm, which is 49% of the predicted heart rate for age. Peak blood pressure was 192/86 mmHg. The double product achieved was [id number]. Medications: Last Used LABETALOL 2 Days Resting ECG: Normal Sinus Rhythm and 1st Degree AV block Symptoms at rest: No symptoms Pharamcologic Protocol: Regadenoson Stress Exercise Table: +-----+--+---+---+ Stage HR SYS PRISCILLA +-----+--+---+---+ 1 75 +-----+--+---+---+ 2 85 196 92 +-----+--+---+---+ 3 83 +-----+--+---+---+ 4 80 192 86 +-----+--+---+---+ +----- (more content not included)... [facility] Radiology Study observation (narrative) [facility] [place] Heart Perfusion W stress and W radionuclide IVOrdered By: [facility] Provider on 09-11-[address] [facility] [address] KNEE WO IVCON LTon 2023 CT KNEE WO IVCON LT * * *Final Report* * * DATE OF EXAM: Aug 30 2023 1:40PM [facility] [place] KNEE WO IVCON LT / PROCEDURE REASON: multiple diagnoses * * * * Physician Interpretation * * * * EXAMINATION: CT KNEE WO IVCON LT CLINICAL HISTORY: 53 years old Male with Chronic pain of left knee . Preoperative planning . TECHNIQUE: CT LEFT knee without contrast Sun protocol, knee 0.62 mm axial slices, hip and ankle 2.5 mm axial slices obtained for the purposes of presurgical planning CT Radiation dose: Integrated Dose-length product (DLP) for this visit = 818 mGy*cm. CT Dose Reduction Employed: Automated exposure control(AEC) and iterative recon COMPARISON: Radiographs 05/09/2023 RESULT: Limited CT images for the purposes of presurgical planning. Left knee: Tricompartment osteoarthritis, most severe in the medial joint compartment. Prior ACL reconstruction with hardware in the proximal tibia and femoral Endobutton. Small joint effusion and Pittman's cyst Left hip: No significant finding Left ankle and imaged foot: No significant finding Software Support Analyst: No significant finding. IMPRESSION: Limited CT images for the purposes of presurgical planning. Bi Tester: PSCB Transcribe Date/Time: Aug 31 2023 7:11A Dictated by : SOFIYA LOPEZ MD This examination was interpreted and the report reviewed and electronically signed by: SOFIYA LOPEZ MD on Aug 31 2023 7:12AM EST [id number] Normal [facility] [place] CBC W Auto Differential pane l (Bld)on 08-28-2023 Basophils (Bld) [#/Vol] 0.10 10*3/uL [facility] Basophils/100 WBC (Bld) 0.9 % [facility] Differential cell count method Nom (Bld) Auto [facility] Eosinophils (Bld) [#/Vol] 0.29 10*3/uL [facility] Eosinophils/100 WBC (Bld) 2.5 % [facility] Erythrocyte distribution width (RBC) [Ratio] 13.3 % 11.5 - 15.0 % [facility] Hematocrit (Bld) [Volume fraction] 42.9 % 39.0 - 51.0 % [facility] Hemoglobin (Bld) [Mass/Vol] 14.2 g/dL 13.0 - 17.0 g/dL [facility] Immature granulocytes (Bld) [#/Vol] 0.09 10*3/uL [facility] Immature granulocytes/100 WBC (Bld) 0.8 % [facility] Interpretation and review of laboratory results Abnormal [facility] Lymphocytes (Bld) [#/Vol] 1.51 10*3/uL [facility] Lymphocytes/100 WBC (Bld) 13.0 % [facility] MCH (RBC) [Entitic mass] 29.9 pg 26.0 - 34.0 pg [facility] MCHC (RBC) [Mass/Vol] 33.1 g/dL 30.5 - 36.0 g/dL [facility] MCV (RBC) [Entitic vol] 90.3 fL 80.0 - 100.0 fL [facility] Monocytes (Bld) [#/Vol] 0.80 10*3/uL [facility] Monocytes/100 WBC (Bld) 6.9 % [facility] Neutrophils (Bld) [#/Vol] 8.86 10*3/uL High [facility] Neutrophils/100 WBC (Bld) 75.9 % [facility] Nucleated RBC (Bld) [#/Vol] [facility] Nucleated RBC/100 WBC (Bld) [Ratio] 0.0 % /100 WBC [facility] Platelet mean volume (Bld) [Entitic vol] 10.6 fL 9.0 - 12.7 fL [facility] Platelets (Bld) [#/Vol] 292 10*3/uL [facility] RBC (Bld) [#/Vol] 4.75 10*6/uL 4.20 - 6.0 0 m/uL [facility] WBC (Bld) [#/Vol] 11.65 10*3/uL High [facility] Comprehensive metabolic 2000 panelOrdered By: Margarita Wang on 08-28-2023 Albumin [Mass/Vol] 4.3 g/dL 3.9 - 4.9 g/dL [facility] ALP [Catalytic activity/Vol] 68 U/L 38 - 113 U/L [facility] ALT [Catalytic activity/Vol] 17 U/L 10 - 54 U/L [facility] Anion gap [Moles/Vol] 11 mmol/L 8 - 15 mmol/L [facility] AST [Catalytic activity/Vol] 14 U/L 14 - 40 U/L [facility] Bilirubin [Mass/Vol] 0.2 mg/dL 0.2 - 1 .3 mg/dL [facility] Calcium [Mass/Vol] 10.3 mg/dL High 8.5 - 10. 2 mg/dL [facility] Chloride [Moles/Vol] 104 mmol/L 98 - 10 7 mmol/L [facility] CO2 [Moles/Vol] 22 mmol/L 22 - 30 mmol/L [facility] Creatinine [Mass/Vol] 0.95 mg/dL 0.73 - 1.22 mg/dL [facility] GFR/1.73 sq M.predicted among non-blacks MDRD (S/P/Bld) [Vol rate/Area] 95 mL/min/{1.73_m2} - PINF [facility] Comment on above: Estimated Glomerular Filtration Rate (eGFR) is calculated using the 2020 CKD-EPI creatinine equation. This equation utilizes serum creatinine, sex, and age as parameters. The creatinine assay has traceable calibration to isotope dilution-mass spectrometry. Refer to KDIGO guidelines for clinical interpretation. In patients with unstable renal function, e.g. those with acute kidney injury, the eGFR may not accurately reflect actual GFR. Glucose [Mass/Vol] 120 mg/dL High 74 - 99 mg/dL [facility] Comment on above: The [place] Diabete s Association (ADA) provides guidance for cutoff values [...] Standards of Medical Care in Diabetes 2016, [place] [employer]. Diabetes Care. 2016.39(Suppl 1). Interpretation and review of laboratory results Abnormal [facility] Potassium [Moles/Vol] 4.8 mmol/L 3.7 - 5.1 mmol/L [facility] Protein [Mass/Vol] 7.0 g/dL 6.3 - 8.0 g/dL [facility] Sodium [Moles/Vol] 137 mmol/L 136 - 144 mmol/L [facility] Urea nitrogen [Mass/Vol] 20 mg/dL 9 - 24 mg/dL [facility] HbA1c (Bld)on 08-28-2023 Average glucose Estimated from glycated hemoglobin (Bld) [Mass/Vol] 114 mg/dL [facility] Comment on above: eAG: (Estimated aver age glucose) is a calculated value from HgbA1c and is title insurance sales representative of the average blood glucose level in the last 2-3 month period. HbA1c (Bld) [Mass fraction] 5.6 % 4.3 - 5.6 % [facility] Comment on above: [place] Diabetes As sociation guidelines indicate that patients with HgbA1c in the range 5.7-6.4% are at increased risk for development of diabetes, and intervention by lifestyle modification may be beneficial. HgbA1c greater or equal to 6.5% is considered diagnostic of diabetes. [facility] Pasquale 08-02-2023 CNPN Telephone (ME2E) -- RUDDY RUVALCABA ([id number]) 1970 M Date Time Provider Department 08/02/23 [facility] [place] During your visit today, we recorded the following information about you: Cecilio Jackson PSS 08/02/2023 7:43 AM Signed TOTAL JOINT COMPLETE CARE PROGRAM PRE-OPERATIVE TEACHING Service Date: 08/02/2023 Service Time: 7:41 AM Date of : 1970 Gender: male Date of Surgery: 09/24/23 Procedure: Left Total Knee Replacement Complete Care Program was discussed with the patient: Blanking Machine Operator Identification: Patient identified a care aide to help when discharged to home: WEIGHER ALLOY Home Environment: Home Layout: 2 story, Entry Steps: 2, Bedroom Location: 2nd floor, Bathroom Location: 2nd floor, and tub shower. Pt owns walker, cane. Discussed with patient importance of attending joint education class and provided date and times of class: YES TKA 12/09 Patient received Joint Education Binder: Yes Plans discharge home with [facility]. SIGNATURE: ANGEL Valdivia PATIENT NAME: Ruddy Ruvalcaba DATE: August 02, 2023 TIME: 7:41 AM Allergies As of Date: 08/02/2023 (No Known Allergies) Date Reviewed: 07/10/2023 Reviewed by: Jossy Natarajan APRN.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 - Fully Assessed Reason for Visit: Pre-Op Teaching [134] Prescriptions as of 08/02/2023 - HYDROcodone-acetaminophen (NORCO) 5-325 mg per tablet Take 1 tablet by mouth every 6 hours as needed for pain for up to 7 days. - labetalol (TRANDATE) 200 mg tablet Take 1.5 tablets by mouth three times a day. - erythromycin (ROMYCIN) 5 mg/gram (0.5 %) ophthalmic ointment 1 application daily at bedtime. - lisinopril (ZESTRIL) 40 mg tablet Take 1 tablet by mouth twice daily. Facility-Administered Medications as of 08/02/2023 - perflutren lipid microspheres 1.3 mL in NaCl (PF) 0.9% 10 mL injection (DEFINITY) - sodium chloride 0.9 % (flush) 10 mL (BD POSIFLUSH) Problem List As Of Date 08/02/2023 Noted Resolved RSD (reflex sympathetic dystrophy) [G90.50] [...] [E78.2] 09/01/2022 Left flank pain [R10.9] 11/17/2022 Hypertension, essential [I10] 07/16/2023 Left knee pain [M25.562] 07/16/2023 Left hamstring muscle strain [S76.312A] 07/16/2023 Left leg pain [M79.605] 07/16/2023 Encounter Status:Closed by CECILIO JACKSON on 08/02/23 [facility] CYTOLOGY NON-GYNon Case Report Medical Cytology Rep ort Case: [id number] Authorizing Provider: Darleen Lopez DO Collected: 05/17/2023 11:58 AM Ordering Location: Orthopaedics Received: 05/17/2023 02:05 PM Pathologist: Ann Garcia MD Specimen: SYNOVIAL FLUID. [facility] Clinical History [facility] FINAL DIAGNOSIS A - SYNOVIAL FLUID Negative for malignant cells. Few macrophages present. [facility] Gross Description A. SYNOVIAL FLUID. 10 cc clear yellow fluid . ThinPrep prepared. [facility] Performing Lab Technical component, archery equipment hay sorter screening performed at [facility], [address] [facility] [address] CLIA# [id number] Diagnostic interpretation performed at [facility], [address] [facility] [facility] [address] CLIA# [id number] Psychology Technician: Blake Farmer M.D. [facility] Laboratory - Specimen inform ationon 05-17-2023 Color (Syn fld) Yellow Yellow [facility] No Panel Informationon 05-17 IMPRESSION: 1. Bilateral hip osteoarthrosis 2. Advanced left knee osteoarthrosis Bi Tester: VÍCTOR Transcribe Date/Time: May 17 2023 12:44P Dictated by : SOFIYA LOPEZ MD This examination was interpreted and the report reviewed and electronically signed by: SOFIYA LOPEZ MD on May 17 2023 12:47PM [facility] No Panel InformationOrdered By: Ccf Provider on 05-17-2023 [facility] SF STAFF REVIEW (LAB ORDER)o n 05-17-2023 Synovial Reviewer Reviewed by Stanley Dunn MD [facility] SYNOVIAL FL,CRYSTAL ID/STAFF REVon 05-17-2023 Crystal Prelim, SF PRELIMINARY REPORT N o diagnostic crystals seen. SEE FINAL SF PATH REVIEW [facility] Crystal Review Reviewed by Stanley Dunn MD [facility] Crystals LM Nom (Syn fld) None seen None seen [facility] Specimen source Nom (Unsp spec) KNEE LEFT, SYNOVIAL FLUID [facility] SYNOVIAL FLUID MANUAL DIFFon 05-17-2023 Diff Total Synovial Fluid 100 cells counted [facility] Lymph%, SF 21 [facility] Macro%, SF 57 [facility] [place]%, SF 4 [facility] Neut%, SF 5 0 - <25 [facility] Synovial Cell% 13 [facility] SYNOVIAL FLUID, ROUTINEon Clarity (Unsp spec) Slightly Cloudy Abnormal Clear [facility] Clarity (Unsp spec) Clear Clear [facility] RBC Manual cnt (Syn fld) [#/Vol] <2,000 /uL [facility] Specimen source Nom (Unsp spec) KNEE LEFT, SYNOVIAL FLUID [facility] WBC Manual cnt (Syn fld) [#/Vol] 233 /uL High 0 - 200 /uL [facility] XR HIP 3V PELV+ AP/LAT LTon 05-17-2023 XR HIP 3V PELV+ AP/LAT LT * * *Final Report* * * DATE OF EXAM: May 17 2023 12:15PM [facility] - XR HIP 3V PELV+ AP/LAT LT / PROCEDURE REASON: multiple diagnoses * * * * Physician Interpretation * * * * PROCEDURE: Pelvic and left hip, left knee INDICATION: Left knee pain, unspecified chronicity .LEFT KNEE PAIN (accession [id number]), STRAIN OF LEFT HAMSTRING MUSCLE (accession [id number]) TECHNIQUE: XR KNEE 4V AP/PA BOTH+LAT/EDGARD LT, XR HIP 3V PELV+ AP/LAT LT COMPARISON: Left knee 12/13/2021, limited views, left knee 04/16/2018, pelvis and right hip 08/01/2022 FINDINGS: Pelvis and left hip: Stimulator device in the right buttock region with a lead extending towards the lumbar spine, incompletely visualized. Mild axial and moderate medial hip joint space narrowing bilaterally, not significantly changed. Minimal marginal spur formation. No fracture or dislocation. Sacroiliac joints and symphysis pubis are maintained. No avulsion fracture from the initial tuberosity. Left knee: Postoperative changes consistent with prior ACL reconstruction. Stable hardware. Severe medial joint compartment narrowing with tricompartment spur formation. Joint effusion. No fracture. Right TKA is evident. IMPRESSION: 1. Bilateral hip osteoarthrosis 2. Advanced left knee osteoarthrosis Bi Tester: [facility] Transcribe Date/Time: May 17 2023 12:44P Dictated by : SOFIYA LOPEZ MD This examination was interpreted and the report reviewed and electronically signed by: SOFIYA LOPEZ MD on May 17 2023 12:47PM EST [id number] [facility] XR KNEE 4V AP/PA BOTH+LAT/ME R LTon 05-17-2023 XR KNEE 4V AP/PA BOTH+LAT/EDGARD LT * * *Final Report* * * DATE OF EXAM: May 17 2023 10:37AM [facility] - XR KNEE 4V AP/PA BOTH+LAT/EDGARD LT / PROCEDURE REASON: M25.562-Left knee pain, unspecified chronicity * * * * Physician Interpretation * * * * PROCEDURE: Pelvic and left hip, left knee INDICATION: Left knee pain, unspecified chronicity .LEFT KNEE PAIN (accession [id number]), STRAIN OF LEFT HAMSTRING MUSCLE (accession [id number]) TECHNIQUE: XR KNEE 4V AP/PA BOTH+LAT/EDGARD LT, XR HIP 3V PELV+ AP/LAT LT COMPARISON: Left knee 12/13/2021, limited views, left knee 04/16/2018, pelvis and right hip 08/01/2022 FINDINGS: Pelvis and left hip: Stimulator device in the right buttock region with a lead extending towards the lumbar spine, incompletely visualized. Mild axial and moderate medial hip joint space narrowing bilaterally, not significantly changed. Minimal marginal spur formation. No fracture or dislocation. Sacroiliac joints and symphysis pubis are maintained. No avulsion fracture from the initial tuberosity. Left knee: Postoperative changes consistent with prior ACL reconstruction. Stable hardware. Severe medial joint compartment narrowing with tricompartment spur formation. Joint effusion. No fracture. Right TKA is evident. IMPRESSION: 1. Bilateral hip osteoarthrosis 2. Advanced left knee osteoarthrosis Bi Tester: VÍCTOR Transcribe Date/Time: May 17 2023 12:44P Dictated by : SOFIYA LOPEZ MD This examination was interpreted and the report reviewed and electronically signed by: SOFIYA LOPEZ MD on May 17 2023 12:47PM EST [id number] Normal [facility] XR Knee - left 4 Viewson * * *Final Report* * * DATE OF EXAM: May 17 2023 10:37AM [facility] - XR KNEE 4V AP/PA BOTH+LAT/EDGARD LT / PROCEDURE REASON: M25.562-Left knee pain, unspecified chronicity * * * * Physician Interpretation * * * * PROCEDURE: Pelvic and left hip, left knee INDICATION: Left knee pain, unspecified chronicity .LEFT KNEE PAIN (accession [id number]), STRAIN OF LEFT HAMSTRING MUSCLE (accession [id number]) TECHNIQUE: XR KNEE 4V AP/PA BOTH+LAT/EDGARD LT, XR HIP 3V PELV+ AP/LAT LT COMPARISON: Left knee 12/13/2021, limited views, left knee 04/16/2018, pelvis and right hip 08/01/2022 FINDINGS: Pelvis and left hip: Stimulator device in the right buttock region with a lead extending towards the lumbar spine, incompletely visualized. Mild axial and moderate medial hip joint space narrowing bilaterally, not significantly changed. Minimal marginal spur formation. No fracture or dislocation. Sacroiliac joints and symphysis pubis are maintained. No avulsion fracture from the initial tuberosity. Left knee: Postoperative changes consistent with prior ACL reconstruction. Stable hardware. Severe medial joint compartment narrowing with tricompartment spur formation. Joint effusion. No fracture. Right TKA is evident. [facility] Provider, Bryan Colon - 05/17/2023 * * *Final Report* * * DATE OF EXAM: May 17 2023 10:37AM [facility] - XR KNEE 4V AP/PA BOTH+LAT/EDGARD LT / PROCEDURE REASON: M25.562-Left knee pain, unspecified chronicity * * * * Physician Interpretation * * * * PROCEDURE: Pelvic and left hip, left knee INDICATION: Left knee pain, unspecified chronicity .LEFT KNEE PAIN (accession [id number]), STRAIN OF LEFT HAMSTRING MUSCLE (accession [id number]) TECHNIQUE: XR KNEE 4V AP/PA BOTH+LAT/EDGARD LT, XR HIP 3V PELV+ AP/LAT LT COMPARISON: Left knee 12/13/2021, limited views, left knee 04/16/2018, pelvis and right hip 08/01/2022 FINDINGS: Pelvis and left hip: Stimulator device in the right buttock region with a lead extending towards the lumbar spine, incompletely visualized. Mild axial and moderate medial hip joint space narrowing bilaterally, not significantly changed. Minimal marginal spur formation. No fracture or dislocation. Sacroiliac joints and symphysis pubis are maintained. No avulsion fracture from the initial tuberosity. Left knee: Postoperative changes consistent with prior ACL reconstruction. Stable hardware. Severe medial joint compartment narrowing with tricompartment spur formation. Joint effusion. No fracture. Right TKA is evident. IMPRESSION IMPRESSION: 1. Bilateral hip osteoarthrosis 2. Advanced left knee osteoarthrosis Bi Tester: VÍCTOR Transcribe Date/Time: May 17 2023 12:44P Dictated by : SOFIYA LOPEZ MD This examination was interpreted and the report reviewed and electronically signed by: SOFIYA LOPEZ MD on May 17 2023 12:47PM EST [facility] Radiology Study observation (narrative) [facility] XR Pelvis and Hip - left AP and Lateral frogon 05-17-2023 * * *Final Report* * * DATE OF EXAM: May 17 2023 12:15PM [facility] - XR HIP 3V PELV+ AP/LAT LT / PROCEDURE REASON: multiple diagnoses * * * * Physician Interpretation * * * * PROCEDURE: Pelvic and left hip, left knee INDICATION: Left knee pain, unspecified chronicity .LEFT KNEE PAIN (accession [id number]), STRAIN OF LEFT HAMSTRING MUSCLE (accession [id number]) TECHNIQUE: XR KNEE 4V AP/PA BOTH+LAT/EDGARD LT, XR HIP 3V PELV+ AP/LAT LT COMPARISON: Left knee 12/13/2021, limited views, left knee 04/16/2018, pelvis and right hip 08/01/2022 FINDINGS: Pelvis and left hip: Stimulator device in the right buttock region with a lead extending towards the lumbar spine, incompletely visualized. Mild axial and moderate medial hip joint space narrowing bilaterally, not significantly changed. Minimal marginal spur formation. No fracture or dislocation. Sacroiliac joints and symphysis pubis are maintained. No avulsion fracture from the initial tuberosity. Left knee: Postoperative changes consistent with prior ACL reconstruction. Stable hardware. Severe medial joint compartment narrowing with tricompartment spur formation. Joint effusion. No fracture. Right TKA is evident. [facility] Provider, [facility] - 05/17/2023 * * *Final Report* * * DATE OF EXAM: May 17 2023 12:15PM [facility] - XR HIP 3V PELV+ AP/LAT LT / PROCEDURE REASON: multiple diagnoses * * * * Physician Interpretation * * * * PROCEDURE: Pelvic and left hip, left knee INDICATION: Left knee pain, unspecified chronicity .LEFT KNEE PAIN (accession [id number]), STRAIN OF LEFT HAMSTRING MUSCLE (accession [id number]) TECHNIQUE: XR KNEE 4V AP/PA BOTH+LAT/EDGARD LT, XR HIP 3V PELV+ AP/LAT LT COMPARISON: Left knee 12/13/2021, limited views, left knee 04/16/2018, pelvis and right hip 08/01/2022 FINDINGS: Pelvis and left hip: Stimulator device in the right buttock region with a lead extending towards the lumbar spine, incompletely visualized. Mild axial and moderate medial hip joint space narrowing bilaterally, not significantly changed. Minimal marginal spur formation. No fracture or dislocation. Sacroiliac joints and symphysis pubis are maintained. No avulsion fracture from the initial tuberosity. Left knee: Postoperative changes consistent with prior ACL reconstruction. Stable hardware. Severe medial joint compartment narrowing with tricompartment spur formation. Joint effusion. No fracture. Right TKA is evident. IMPRESSION IMPRESSION: 1. Bilateral hip osteoarthrosis 2. Advanced left knee osteoarthrosis Bi Tester: VÍCTOR Transcribe Date/Time: May 17 2023 12:44P Dictated by : SOFIYA LOPEZ MD This examination was interpreted and the report reviewed and electronically signed by: SOFIYA LOPEZ MD on May 17 2023 12:47PM EST [facility] Radiology Study observation (narrative) [facility] US KIDNEY/BLADDERon 12-27-19 [facility] XR LUMBAR GENERAL 3V AP/LAT/ L5-S1on 12-26-2022 [facility] XR THORACIC GENERAL 3V AP/LA T/SWIMMERSon 12-26-2022 [facility] Basophil percentageOrdered B y: Atul Solitario on 12-24-2022 Bilirubin [Mass/Vol] 0.30 mg/dL 0.20-1.00 [facility] Comment on above: For patients on eltr ombopag therapy, use of Dimension [place] TBIL is not recommended. Chloride [Moles/Vol] 107 mmol/L 98-107 [facility] Glucose [Mass/Vol] 101 mg/dL 74-106 [facility] Comment on above: Fasting Glucose resu lt from 100 to 125 mg/dL suggests IMPAIRED HOMEOSTASIS per A.D.A. criteria. Potassium [Moles/Vol] 3.7 mmol/L 3.5-5.1 [facility] Protein [Mass/Vol] 7.4 g/dL 6.4-8.2 [facility] Sodium [Moles/Vol] 141 mmol/L 136-145 [facility] Laboratory - Chemistry and C hemistry - challengeOrdered By: Atul Solitario on 12-24-2022 ALP [Catalytic activity/Vol] 73 U/L 45-117 [facility] ALT [Catalytic activity/Vol] 33 U/L 16-61 [facility] CO2 [Moles/Vol] 29.0 mmol/L 21.0-32.0 [facility] Globulin (S) [Mass/Vol] 3.4 g/dL 2.2-4.2 [facility] Urea nitrogen/Creatinine [Mass ratio] 14.8 mg/mg 10-20 [facility] No Panel InformationOrdered By: Atul Solitario on 12-24-2022 Estimated Creatinine Clearance Calc 71.47 ml/min [facility] Estimated GFR (MDRD) Amer 80 mL/min >60 [facility] Comment on above: GFR Calc Estimated GFR (MDRD) Non-Af Amer 66 mL/min >60 [facility] Comment on above: Non- GFR Calc Serum or plasma albumin carlos alberto urement (mass/volume)Ordered By: Atul Solitario on 12-24-2022 Albumin [Mass/Vol] 4.0 g/dL 3.2-5.0 [facility] Serum or plasma albumin/glob ulin mass ratioOrdered By: Atul Solitario on 12-24-2022 Albumin/Globulin [Mass ratio] 1.2 {ratio} 0.9-2.4 [facility] Serum or plasma calcium carlos alberto urement (mass/volume)Ordered By: Atul Solitario on 12-24-2022 Calcium [Mass/Vol] 9.2 mg/dL 8.5-10.1 [facility] Serum or plasma creatinine m easurement (mass/volume)Ordered By: Atul Solitario on 12-24-2022 Creatinine [Mass/Vol] 1.22 mg/dL 0.70-1.30 [facility] Comment on above: The validity of the calculated GFR & GFRAA in patients over 70 years has not been determined. Clinical correlation is essential. Serum or plasma urea nitroge n measurement (mass/volume)Ordered By: Atul Solitario on 12-24-2022 Urea nitrogen [Mass/Vol] 18 mg/dL 7-18 [facility] Thin prep Papanicolaou smear with manual screeningOrdered By: Atul Solitario on 12-24-2022 Thin prep Papanicolaou smear with manual screening 15 U/L 15-37 [facility] Thin prep Papanicolaou smear with manual screening 5 5-15 [facility] CNPNon [facility] RUDDY RUVALCABA ([id number]) 1970 [place] Date Time Provider Department 12/19/22 GABRIELLA JOHNSON [facility] During your visit today, we recorded the following information about you: JalenHowie ready, RT(R) 12/19/2022 4:00 PM Addendum Helmario, The attached patient has a stimulator that is not approved for an MRI of the kidney/adrenal that has been ordered per FDA and research instructor guidelines. They have a [employer] Stimulator that has not been functioning since 2005. The patient is unable to turn on the remote needed to place the device properly in "MRI mode" prior to the MRI scan. If this exam is still needed, then a Risk Benefit discussion will need to take place between the ordering physician and the staff body radiologist who can be reached at [phone]. After that discussion is completed and the MRI is determined as necessary, this will need to be documented in [facility]. Any questions, the MRI Safety Team can be reached at [phone]. Thank you, Gabriella Johnson RT(R)(MR) MRI Safety Team [phone] Patient has a stimulator which is not [...] abdomen pelvis was negative for adrenal mass. Allergies As of Date: 12/19/2022 (No Known Allergies) Date Reviewed: 12/15/2022 Reviewed by: Jossy Natarajan APRN.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 - Fully Assessed Reason for Visit: MRI Safety Team [Other] Primary Visit Diagnosis:Renal cyst [N28.1] Order(s):US KIDNEY/BLADDER [[id number]] Order #: [id number] FUTURE Prescriptions as of 12/22/2022 - HYDROcodone-acetaminophen (NORCO) 5-325 mg per tablet Take 1 tablet by mouth once daily as needed for pain for up to 7 days. - lisinopril (ZESTRIL) 40 mg tablet Take 1 tablet by mouth twice daily. - labetalol (TRANDATE) 200 mg tablet Take 1.5 tablets by mouth twice daily. - hydrALAZINE (APRESOLINE) 50 mg tablet Take 1 tablet by mouth three times daily. - finasteride (PROSCAR) 5 mg tablet Take 1 tablet by mouth once daily. - tamsulosin (FLOMAX) 0.4 mg Take 1 capsule by mouth daily at bedtime. - chlorthalidone (HYGROTON) 25 mg tablet Take 1 tablet by mouth once daily. - amLODIPine (NORVASC) 10 mg tablet Take 1 tablet by mouth once daily. Facility-Administered Medications as of 12/22/2022 - perflutren lipid microspheres 1.3 mL in NaCl (PF) 0.9% 10 mL injection (DEFINITY) - sodium chloride 0.9 % (flush) 10 mL (BD POSIFLUSH) Problem List As Of Date 12/19/2022 Noted Resolved RSD (reflex sympathetic dystrophy) [G90.50] [...] flank pain [R10.9] 11/17/2022 Encounter Status:Closed by KT MORTENSEN V on 12/22/22 [facility] CBC W Auto Differential pane l (Bld)on 12-12-2022 Basophils (Bld) [#/Vol] 0.10 10*3/uL <0.11 k/uL [facility] Basophils/100 WBC (Bld) 1.0 % [facility] Differential cell count method Nom (Bld) Auto [facility] Eosinophils (Bld) [#/Vol] 0.40 10*3/uL <0.46 k/uL [facility] Eosinophils/100 WBC (Bld) 3.9 % [facility] Erythrocyte distribution width (RBC) [Ratio] 13.0 % 11.5 - 15.0 % [facility] Hematocrit (Bld) [Volume fraction] 39.5 % 39.0 - 51.0 % [facility] Hemoglobin (Bld) [Mass/Vol] 13.8 g/dL 13.0 - 17.0 g/dL [facility] Immature granulocytes (Bld) [#/Vol] 0.05 10*3/uL <0.10 k/uL [facility] Immature granulocytes/100 WBC (Bld) 0.5 % [facility] Lymphocytes (Bld) [#/Vol] 2.35 10*3/uL 1.00 - 4.00 k/uL [facility] Lymphocytes/100 WBC (Bld) 22.7 % [facility] MCH (RBC) [Entitic mass] 30.3 pg 26.0 - 34.0 pg [facility] MCHC (RBC) [Mass/Vol] 34.9 g/dL 30.5 - 36.0 g/dL [facility] MCV (RBC) [Entitic vol] 86.6 fL 80.0 - 100.0 fL [facility] Monocytes (Bld) [#/Vol] 1.00 10*3/uL High <0.87 k/uL [facility] Monocytes/100 WBC (Bld) 9.7 % [facility] Neutrophils (Bld) [#/Vol] 6.43 10*3/uL 1.45 - 7.50 k/uL [facility] Neutrophils/100 WBC (Bld) 62.2 % [facility] Nucleated RBC (Bld) [#/Vol] <0.01 k/uL [facility] Nucleated RBC/100 WBC (Bld) [Ratio] 0.0 /100 WBC [facility] Platelet mean volume (Bld) [Entitic vol] 10.1 fL 9.0 - 12.7 fL [facility] Platelets (Bld) [#/Vol] 286 10*3/uL 150 - 400 k/uL [facility] RBC (Bld) [#/Vol] 4.56 10*6/uL 4.20 - 6.0 0 m/uL [facility] WBC (Bld) [#/Vol] 10.33 10*3/uL 3.70 - 11.00 k/uL [facility] MAGNESIUM BLDon 12-12-2022 Magnesium [Mass/Vol] 2.0 mg/dL 1.7 - 2 .3 mg/dL [facility] Renal function 2000 panelon 12-12-2022 Albumin [Mass/Vol] 4.4 g/dL 3.9 - 4.9 g/dL [facility] Anion gap [Moles/Vol] 10 mmol/L 9 - 18 mmol/L [facility] Calcium [Mass/Vol] 9.3 mg/dL 8.5 - 10. 2 mg/dL [facility] Chloride [Moles/Vol] 104 mmol/L 97 - 10 5 mmol/L [facility] CO2 [Moles/Vol] 24 mmol/L 22 - 30 mmol/L [facility] Creatinine [Mass/Vol] 1.04 mg/dL 0.73 - 1.22 mg/dL [facility] Estimated Glomerular Filtration Rate 85 mL/min/1.73m >=60 mL/min/1.73 m [facility] Glucose [Mass/Vol] 89 mg/dL 74 - 99 mg/dL [facility] Phosphate [Mass/Vol] 3.7 mg/dL 2.7 - 4 .8 mg/dL [facility] Potassium [Moles/Vol] 3.9 mmol/L 3.7 - 5.1 mmol/L [facility] Sodium [Moles/Vol] 138 mmol/L 136 - 144 mmol/L [facility] Urea nitrogen [Mass/Vol] 23 mg/dL 9 - 24 mg/dL [facility] URIC ACID BLOODon 12-12-2022 Urate [Mass/Vol] 6.3 mg/dL 4.0 - 8.1 mg/dL [facility] US KIDNEY/BLADDERon 11-12-19 [facility] Absolute lymphocyte countOrd ered By: David Guo on 10-22-2022 Lymphocytes Auto (Unsp spec) [#/Vol] 2.73 10*3/uL 0.83-4.51 [facility] Basophil percentageOrdered B y: David Guo on 10-22-2022 Basophil percentage 0 SEEN /hpf 0-5 [facility] Basophils/100 WBC (Bld) 0.8 % 0-1 [facility] Chloride [Moles/Vol] 107 mmol/L 98-107 [facility] Eosinophils/100 WBC (Bld) 2.9 % 0-5 [facility] Glucose [Mass/Vol] 125 mg/dL 74-106 [facility] Comment on above: Fasting Glucose resu lt from 100 to 125 mg/dL suggests IMPAIRED HOMEOSTASIS per A.D.A. criteria. Neutrophils (Bld) [#/Vol] 8.4 10*3/uL 2.0-7.7 [facility] Neutrophils/100 WBC (Bld) 66.4 % 47-70 [facility] Potassium [Moles/Vol] 4.1 mmol/L 3.5-5.1 [facility] Sodium [Moles/Vol] 137 mmol/L 136-145 [facility] WBC (Bld) [#/Vol] 12.7 10*3/uL 4.4-11.0 [facility] Bilirubin Test strip Ql (U)O rdered By: David Guo on 10-22-2022 Bilirubin Ql (U) Negative Negative [facility] Blood erythrocytes count (nu mber/volume)Ordered By: David Guo on 10-22-2022 RBC (Bld) [#/Vol] 4.48 10*6/uL 4.6-6.2 [facility] Blood hemoglobin measurement (mass/volume)Ordered By: David Guo on 10-22-2022 Hemoglobin (Bld) [Mass/Vol] 14.0 g/dL 13.0-16.5 [facility] Blood lymphocytes/100 leukoc ytesOrdered By: David Guo on 10-22-2022 Lymphocytes/100 WBC (Bld) 21.6 % 19-41 [facility] Blood monocytes/100 leukocyt esOrdered By: David Guo on 10-22-2022 Monocytes/100 WBC (Bld) 7.9 % 0-10 [facility] Blood platelet mean volumeOr dered By: David Guo on 10-22-2022 Platelet mean volume (Bld) [Entitic vol] 10.0 fL 6.2-12.0 [facility] Determination of erythrocyte mean corpuscular volume (MCV)Ordered By: David Guo on 10-22-2022 MCV (RBC) [Entitic vol] 87.9 fL 80-94 [facility] Hematocrit Auto (Bld) [Volum e fraction]Ordered By: David Guo on 10-22-2022 Hematocrit (Bld) [Volume fraction] 39.4 % 40-54 [facility] Ketones Test strip Ql (U)Ord ered By: David Guo on 10-22-2022 Ketones Ql (U) Negative Negative [facility] Laboratory - Chemistry and C hemistry - challengeOrdered By: David Guo on 10-22-2022 CO2 [Moles/Vol] 23.0 mmol/L 21.0-32.0 [facility] Urea nitrogen/Creatinine [Mass ratio] 15.0 mg/mg 10-20 [facility] Laboratory - Hematology and Cell countsOrdered By: David Guo on 10-22-2022 Erythrocyte distribution width (RBC) [Entitic vol] 41.6 fL 35.1-43.9 [facility] Erythrocyte distribution width (RBC) [Ratio] 13.0 % 11.6-14.6 [facility] Immature granulocytes/100 WBC (Bld) 0.400 % 0.0-0.9 [facility] Comment on above: IG% - Immature Granu locytes (promyelocytes, myelocytes and metamyelocytes) > 1% indicates that a LEFT SHIFT is Present. MCH (RBC) [Entitic mass] 31.3 pg 27.0-32.0 [facility] Nucleated RBC/100 WBC (Bld) [Ratio] 0 % 0-5 [facility] MCHC Auto (RBC) [Mass/Vol]Or dered By: David Guo on 10-22-2022 MCHC (RBC) [Mass/Vol] 35.5 g/dL 32-36 [facility] Mucus LM Ql (Urine sed)Order ed By: David Guo on 10-22-2022 Mucus Ql (Urine sed) 0 SEEN /hpf [facility] Nitrite Test strip Ql (U)Ord ered By: David Guo on 10-22-2022 Nitrite Ql (U) Negative Negative [facility] No Panel InformationOrdered By: David Guo on 10-22-2022 D-Dimer Quantitative (PE/DVT) 0.47 FEU/ug/m 0.27-0.49 [facility] Comment on above: NORMAL D-Dimer level (<0.50) indicates no DVT or PE. Estimated Creatinine Clearance Calc 68.66 ml/min [facility] Estimated GFR (MDRD) Amer 76 mL/min >60 [facility] Comment on above: GFR Calc Estimated GFR (MDRD) Non-Af Amer 63 mL/min >60 [facility] Comment on above: Non- GFR Calc Platelets bldOrdered By: Kelsey Guo on 10-22-2022 Platelets (Bld) [#/Vol] 282 10*3/uL 150-450 [facility] Protein Test strip Ql (U)Ord ered By: David Guo on 10-22-2022 Protein Ql (U) 15 mg/dl Negative [facility] Serum or plasma calcium carlos alberto urement (mass/volume)Ordered By: David Guo on 10-22-2022 Calcium [Mass/Vol] 8.8 mg/dL 8.5-10.1 [facility] Serum or plasma creatinine m easurement (mass/volume)Ordered By: David Guo on 10-22-2022 Creatinine [Mass/Vol] 1.27 mg/dL 0.70-1.30 [facility] Comment on above: The validity of the calculated GFR & GFRAA in patients over 70 years has not been determined. Clinical correlation is essential. Serum or plasma urea nitroge n measurement (mass/volume)Ordered By: David Guo on 10-22-2022 Urea nitrogen [Mass/Vol] 19 mg/dL 7-18 [facility] Squamous epithelial cells de tection in urine sediment by light microscopyOrdered By: David Guo on 10-22-2022 Epithelial cells.squamous LM Ql (Urine sed) 0-5 SEEN /hpf 0-5 [facility] Thin prep Papanicolaou smear with manual screeningOrdered By: David Guo on 10-22-2022 Thin prep Papanicolaou smear with manual screening 7 5-15 [facility] Urine blood detectionOrdered By: David Guo on 10-22-2022 RBC Ql (U) Negative Negative [facility] RBC Ql (U) 0 SEEN /hpf 0-5 [facility] Urine clarityOrdered By: Rem us Brant on 10-22-2022 Clarity (U) Clear Clear [facility] Urine color determinationOrd ered By: David Guo on 10-22-2022 Color (U) Yellow Yellow [facility] Urine glucose detectionOrder ed By: David Guo on 10-22-2022 Glucose Ql (U) Normal mg/dl Normal [facility] Urine leukocyte esterase det ection by dipstickOrdered By: David Guo on 10-22-2022 Leukocyte esterase Test strip Ql (U) Negative Negative [facility] Urine pHOrdered By: David Disla gur on 10-22-2022 pH (U) 5.0 [pH] 5.0 - 8.0 [facility] Urine sediment bacteria coun t by microscopy (number/high power field)Ordered By: David Guo on 10-22-2022 Bacteria LM.HPF (Urine sed) [#/Area] 0 /[HPF] None Seen [facility] Urine specific gravity measu rementOrdered By: David Guo on 10-22-2022 Specific gravity (U) [Rel density] 1.020 1.002-1.030 [facility] Urobilinogen Auto test strip Ql (U)Ordered By: David Guo on 10-22-2022 Urobilinogen Ql (U) Normal mg/dl Normal [facility] Absolute lymphocyte countOrd ered By: Dr. Herr on 08-18-2022 Lymphocytes Auto (Unsp spec) [#/Vol] 1.70 10*3/uL 0.83-4.51 [facility] Basophil percentageOrdered B y: Dr. Herr on 08-18-2022 Basophils/100 WBC (Bld) 0.7 % 0-1 [facility] Bilirubin [Mass/Vol] 0.60 mg/dL 0.20-1.00 [facility] Comment on above: For patients on eltr ombopag therapy, use of Dimension Hutto TBIL is not recommended. Chloride [Moles/Vol] 106 mmol/L 98-107 [facility] Eosinophils/100 WBC (Bld) 1.0 % 0-5 [facility] Glucose [Mass/Vol] 106 mg/dL 74-106 [facility] Comment on above: Fasting Glucose resu lt from 100 to 125 mg/dL suggests IMPAIRED HOMEOSTASIS per A.D.A. criteria. Neutrophils (Bld) [#/Vol] 8.9 10*3/uL 2.0-7.7 [facility] Neutrophils/100 WBC (Bld) 77.6 % 47-70 [facility] Potassium [Moles/Vol] 3.9 mmol/L 3.5-5.1 [facility] Protein [Mass/Vol] 7.8 g/dL 6.4-8.2 [facility] Sodium [Moles/Vol] 139 mmol/L 136-145 [facility] WBC (Bld) [#/Vol] 11.5 10*3/uL 4.4-11.0 [facility] Blood erythrocytes count (nu mber/volume)Ordered By: Dr. Herr on 08-18-2022 RBC (Bld) [#/Vol] 4.59 10*6/uL 4.6-6.2 [facility] Blood hemoglobin measurement (mass/volume)Ordered By: Dr. Herr on 08-18-2022 Hemoglobin (Bld) [Mass/Vol] 14.1 g/dL 13.0-16.5 [facility] Blood lymphocytes/100 leukoc ytesOrdered By: Dr. Herr on 08-18-2022 Lymphocytes/100 WBC (Bld) 14.8 % 19-41 [facility] Blood monocytes/100 leukocyt esOrdered By: Dr. Herr on 08-18-2022 Monocytes/100 WBC (Bld) 5.6 % 0-10 [facility] Blood platelet mean volumeOr dered By: Dr. Herr on 08-18-2022 Platelet mean volume (Bld) [Entitic vol] 10.4 fL 6.2-12.0 [facility] Determination of erythrocyte mean corpuscular volume (MCV)Ordered By: Dr. Herr on 08-18-2022 MCV (RBC) [Entitic vol] 90.0 fL 80-94 [facility] Hematocrit Auto (Bld) [Volum e fraction]Ordered By: Dr. Herr on 08-18-2022 Hematocrit (Bld) [Volume fraction] 41.3 % 40-54 [facility] Laboratory - Chemistry and C hemistry - challengeOrdered By: Dr. Herr on 08-18-2022 ALP [Catalytic activity/Vol] 74 U/L 45-117 [facility] ALT [Catalytic activity/Vol] 29 U/L 16-61 [facility] CO2 [Moles/Vol] 24.0 mmol/L 21.0-32.0 [facility] Globulin (S) [Mass/Vol] 3.7 g/dL 2.2-4.2 [facility] Urea nitrogen/Creatinine [Mass ratio] 20.1 mg/mg 10-20 [facility] Laboratory - Hematology and Cell countsOrdered By: Dr. Herr on 08-18-2022 Erythrocyte distribution width (RBC) [Entitic vol] 43.2 fL 35.1-43.9 [facility] Erythrocyte distribution width (RBC) [Ratio] 13.2 % 11.6-14.6 [facility] Immature granulocytes/100 WBC (Bld) 0.300 % 0.0-0.9 [facility] Comment on above: IG% - Immature Granu locytes (promyelocytes, myelocytes and metamyelocytes) > 1% indicates that a LEFT SHIFT is Present. MCH (RBC) [Entitic mass] 30.7 pg 27.0-32.0 [facility] Nucleated RBC/100 WBC (Bld) [Ratio] 0 % 0-5 [facility] MCHC Auto (RBC) [Mass/Vol]Or dered By: Dr. Herr on 08-18-2022 MCHC (RBC) [Mass/Vol] 34.1 g/dL 32-36 [facility] No Panel InformationOrdered By: Dr. Herr on 08-18-2022 Estimated Creatinine Clearance Calc 87.19 ml/min [facility] Estimated GFR (MDRD) Amer 101 mL/min >60 [facility] Comment on above: GFR Calc Estimated GFR (MDRD) Non-Af Amer 83 mL/min >60 [facility] Comment on above: Non- GFR Calc Troponin I High Sensitivity 11 pg/mL 3.0-78.0 [facility] Comment on above: Please Note: [place] t Units and Gender Specific Reference Ranges. For more information see Policy Stat Procedure Hutto High Sensitivity Troponin (TNIH) and attachments. Platelets bldOrdered By: Dr. Herr on 08-18-2022 Platelets (Bld) [#/Vol] 314 10*3/uL 150-450 [facility] Serum or plasma albumin carlos alberto urement (mass/volume)Ordered By: Dr. Herr on 08-18-2022 Albumin [Mass/Vol] 4.1 g/dL 3.2-5.0 [facility] Serum or plasma albumin/glob ulin mass ratioOrdered By: Dr. Herr on 08-18-2022 Albumin/Globulin [Mass ratio] 1.1 {ratio} 0.9-2.4 [facility] Serum or plasma calcium carlos alberto urement (mass/volume)Ordered By: Dr. Herr on 08-18-2022 Calcium [Mass/Vol] 9.4 mg/dL 8.5-10.1 [facility] Serum or plasma creatinine m easurement (mass/volume)Ordered By: Dr. Herr on 08-18-2022 Creatinine [Mass/Vol] 1.00 mg/dL 0.70-1.30 [facility] Comment on above: The validity of the calculated GFR & GFRAA in patients over 70 years has not been determined. Clinical correlation is essential. Serum or plasma urea nitroge n measurement (mass/volume)Ordered By: Dr. Herr on 08-18-2022 Urea nitrogen [Mass/Vol] 20 mg/dL 7-18 [facility] Thin prep Papanicolaou smear with manual screeningOrdered By: Dr. Herr on 08-18-2022 Thin prep Papanicolaou smear with manual screening 19 U/L 15-37 [facility] Thin prep Papanicolaou smear with manual screening 9 5-15 [facility] XR HIP GENERAL 3V PELV/AP/LA T RIGHTon 08-01-2022 [facility] XR CHEST 2V FRONTAL/LATon [facility] XR Chest PA and Lateralon IMPRESSION: Mild central peribronchial cuffing which may be seen with small airways inflammation/bronchitis. Mild right infrahilar bandlike opacity, atelectasis versus bronchopneumonia in the appropriate clinical setting. Bi Tester: VÍCTOR Transcribe Date/Time: Jul 27 2022 9:32A Dictated by : LOYDA HARMON MD This examination was interpreted and the report reviewed and electronically signed by: LOYDA HARMON MD on Jul 27 2022 9:34AM [facility] DIVISION OF RADIOLOGY * * *Final Report* * * DATE OF EXAM: Jul 27 2022 9:25AM WOX [id number] - XR CHEST 2V FRONTAL/LAT / PROCEDURE REASON: Acute cough * * * * Physician Interpretation * * * * EXAMINATION: CHEST RADIOGRAPH (2 VIEW FRONTAL & LATERAL) CLINICAL HISTORY: Acute cough MQ: XC2_6 EXAM DATE/TIME: 07/27/2022 9:25 AM COMPARISON: No relevant prior studies available. RESULT: Lines, tubes, and devices: Spinal stimulator leads partially visualized with tips projecting over the mid to lower thoracic spine. Lungs and pleura: Mild central peribronchial cuffing which may be seen with small airways inflammation/bronchitis. Mild right infrahilar bandlike opacity. No pleural effusion or pneumothorax. Cardiomediastinal silhouette: Normal cardiomediastinal silhouette. Bones and soft tissues: Mild degenerative changes DIVISION OF RADIOLOGY Provider, [facility] - 07/27/2022 * * *Final Report* * * DATE OF EXAM: Jul 27 2022 9:25AM WOX [id number] - XR CHEST 2V FRONTAL/LAT / PROCEDURE REASON: Acute cough * * * * Physician Interpretation * * * * EXAMINATION: CHEST RADIOGRAPH (2 VIEW FRONTAL & LATERAL) CLINICAL HISTORY: Acute cough MQ: XC2_6 EXAM DATE/TIME: 07/27/2022 9:25 AM COMPARISON: No relevant prior studies available. RESULT: Lines, tubes, and devices: Spinal stimulator leads partially visualized with tips projecting over the mid to lower thoracic spine. Lungs and pleura: Mild central peribronchial cuffing which may be seen with small airways inflammation/bronchitis. Mild right infrahilar bandlike opacity. No pleural effusion or pneumothorax. Cardiomediastinal silhouette: Normal cardiomediastinal silhouette. Bones and soft tissues: Mild degenerative changes IMPRESSION IMPRESSION: Mild central peribronchial cuffing which may be seen with small airways inflammation/bronchitis. Mild right infrahilar bandlike opacity, atelectasis versus bronchopneumonia in the appropriate clinical setting. Bi Tester: PSCB Transcribe Date/Time: Jul 27 2022 9:32A Dictated by : LOYDA HARMON MD This examination was interpreted and the report reviewed and electronically signed by: LOYDA HARMON MD on Jul 27 2022 9:34AM EST [facility] Radiology Study observation (narrative) [facility] XR Chest PA and LateralOrder ed By: [facility] Provider on 07-27-2022 [facility] C-REACTIVE PROTEIN (CRP)on 0 03-24-2022 CRP [Mass/Vol] 1.3 mg/dL High <0.9 mg/dL [facility] ESR Westergren method (Bld) [Velocity]on 03-23-2022 ESR (Bld) [Velocity] 17 mm/h High 0 - 15 mm/hr [facility] CBC W Auto Differential pane l (Bld)on 11-15-2021 Abs Immature Gran 0.04 k/uL <0.10 k/uL [facility] Basophils (Bld) [#/Vol] 0.10 10*3/uL <0.11 k/uL [facility] Basophils/100 WBC (Bld) 1.0 % [facility] Differential cell count method Nom (Bld) Auto [facility] Eosinophils (Bld) [#/Vol] 0.23 10*3/uL <0.46 k/uL [facility] Eosinophils/100 WBC (Bld) 2.2 % [facility] Erythrocyte distribution width (RBC) [Ratio] 12.6 % 11.5 - 15.0 % [facility] Hematocrit (Bld) [Volume fraction] 42.6 % 39.0 - 51.0 % [facility] Hemoglobin (Bld) [Mass/Vol] 15.0 g/dL 13.0 - 17.0 g/dL [facility] Immature Gran % 0.4 % [facility] Lymphocytes (Bld) [#/Vol] 2.35 10*3/uL 1.00 - 4.00 k/uL [facility] Lymphocytes/100 WBC (Bld) 22.9 % [facility] MCH (RBC) [Entitic mass] 30.9 pg 26.0 - 34.0 pg [facility] MCHC (RBC) [Mass/Vol] 35.2 g/dL 30.5 - 36.0 g/dL [facility] MCV (RBC) [Entitic vol] 87.8 fL 80.0 - 100.0 fL [facility] Monocytes (Bld) [#/Vol] 0.83 10*3/uL <0.87 k/uL [facility] Monocytes/100 WBC (Bld) 8.1 % [facility] Neutrophils (Bld) [#/Vol] 6.69 10*3/uL 1.45 - 7.50 k/uL [facility] Neutrophils/100 WBC (Bld) 65.4 % [facility] Nucleated RBC (Bld) [#/Vol] <0.01 k/uL [facility] Nucleated RBC/100 WBC (Bld) [Ratio] 0.0 /100 WBC [facility] Platelet mean volume (Bld) [Entitic vol] 10.4 fL 9.0 - 12.7 fL [facility] Platelets (Bld) [#/Vol] 305 10*3/uL 150 - 400 k/uL [facility] RBC (Bld) [#/Vol] 4.85 10*6/uL 4.20 - 6.0 0 m/uL [facility] WBC (Bld) [#/Vol] 10.24 10*3/uL 3.70 - 11.00 k/uL [facility] Comprehensive metabolic 2000 panelon 11-15-2021 Albumin [Mass/Vol] 4.7 g/dL 3.9 - 4.9 g/dL [facility] ALP [Catalytic activity/Vol] 76 U/L 38 - 113 U/L [facility] ALT [Catalytic activity/Vol] 19 U/L 10 - 54 U/L [facility] Anion gap [Moles/Vol] 11 mmol/L 9 - 18 mmol/L [facility] AST [Catalytic activity/Vol] 17 U/L 14 - 40 U/L [facility] Bilirubin [Mass/Vol] 0.3 mg/dL 0.2 - 1 .3 mg/dL [facility] Calcium [Mass/Vol] 9.2 mg/dL 8.5 - 10. 2 mg/dL [facility] Chloride [Moles/Vol] 105 mmol/L 97 - 10 5 mmol/L [facility] CO2 [Moles/Vol] 20 mmol/L Low 22 - 30 mmol/L [facility] Creatinine [Mass/Vol] 0.96 mg/dL 0.73 - 1.22 mg/dL [facility] Estimated Glomerular Filtration Rate 95 mL/min/1.73m >=60 mL/min/1.73 m [facility] Glucose [Mass/Vol] 95 mg/dL 74 - 99 mg/dL [facility] Potassium [Moles/Vol] 4.1 mmol/L 3.7 - 5.1 mmol/L [facility] Protein [Mass/Vol] 7.3 g/dL 6.3 - 8.0 g/dL [facility] Sodium [Moles/Vol] 136 mmol/L 136 - 144 mmol/L [facility] Urea nitrogen [Mass/Vol] 22 mg/dL 9 - 24 mg/dL [facility] Absolute lymphocyte counton 06-26-2021 Lymphocytes Auto (Unsp spec) [#/Vol] 2.00 10*3/uL 0.83-4.51 [facility] Work Phone: Basophil percentageon 2021 Basophils/100 WBC (Bld) 0.6 % 0-1 [facility] Work Phone: Chloride [Moles/Vol] 106 mmol/L 98-107 [facility] Work Phone: Eosinophils/100 WBC (Bld) 1.7 % 0-5 [facility] Work Phone: Glucose [Mass/Vol] 108 mg/dL 74-106 [facility] Work Phone: Comment on above: Fasting Glucose resu lt from 100 to 125 mg/dL suggests IMPAIRED HOMEOSTASIS per A.D.A. criteria. Neutrophils (Bld) [#/Vol] 11.9 10*3/uL 2.0-7.7 [facility] Work Phone: Neutrophils/100 WBC (Bld) 76.4 % 47-70 [facility] Work Phone: Potassium [Moles/Vol] 3.9 mmol/L 3.5-5.1 [facility] Work Phone: Sodium [Moles/Vol] 137 mmol/L 136-145 [facility] Work Phone: WBC (Bld) [#/Vol] 15.6 10*3/uL 4.4-11.0 [facility] Work Phone: Basophil percentage 0-5 SEEN /hpf [facility] Work Phone: Bilirubin Test strip Ql (U)o n 06-26-2021 Bilirubin Ql (U) Negative Negative [facility] Work Phone: Blood erythrocytes count (nu mber/volume)on 06-26-2021 RBC (Bld) [#/Vol] 4.68 10*6/uL 4.6-6.2 [facility] Work Phone: Blood hemoglobin measurement (mass/volume)on 06-26-2021 Hemoglobin (Bld) [Mass/Vol] 14.5 g/dL 13.0-16.5 [facility] Work Phone: Blood lymphocytes/100 leukoc yteson 06-26-2021 Lymphocytes/100 WBC (Bld) 12.9 % 19-41 [facility] Work Phone: Blood monocytes/100 leukocyt eson 06-26-2021 Monocytes/100 WBC (Bld) 7.9 % 0-10 [facility] Work Phone: Blood platelet mean volumeon 06-26-2021 Platelet mean volume (Bld) [Entitic vol] 10.3 fL 6.2-12.0 [facility] Work Phone: Determination of erythrocyte mean corpuscular volume (MCV)on 06-26-2021 MCV (RBC) [Entitic vol] 88.7 fL 80-94 [facility] Work Phone: Hematocrit Auto (Bld) [Volum e fraction]on 06-26-2021 Hematocrit (Bld) [Volume fraction] 41.5 % 40-54 [facility] Work Phone: Ketones Test strip Ql (U)on 06-26-2021 Ketones Ql (U) Negative Negative [facility] Work Phone: Laboratory - Chemistry and C hemistry - challengeon 06-26-2021 CO2 [Moles/Vol] 25.0 mmol/L 21.0-32.0 [facility] Work Phone: Urea nitrogen/Creatinine [Mass ratio] 21.7 mg/mg 10-20 [facility] Work Phone: Laboratory - Hematology and Cell countson 06-26-2021 Erythrocyte distribution width (RBC) [Entitic vol] 41.0 fL 35.1-43.9 [facility] Work Phone: Erythrocyte distribution width (RBC) [Ratio] 12.6 % 11.6-14.6 [facility] Work Phone: Immature granulocytes/100 WBC (Bld) 0.500 % 0.0-0.9 [facility] Work Phone: Comment on above: IG% - Immature Granu locytes (promyelocytes, myelocytes and metamyelocytes) > 1% indicates that a LEFT SHIFT is Present. MCH (RBC) [Entitic mass] 31.0 pg 27.0-32.0 [facility] Work Phone: Nucleated RBC/100 WBC (Bld) [Ratio] 0 % 0-5 [facility] Work Phone: MCHC Auto (RBC) [Mass/Vol]on 06-26-2021 MCHC (RBC) [Mass/Vol] 34.9 g/dL 32-36 [facility] Work Phone: Mucus LM Ql (Urine sed)on Mucus Ql (Urine sed) 0 SEEN /hpf [facility] Work Phone: Nitrite Test strip Ql (U)on 06-26-2021 Nitrite Ql (U) Negative Negative [facility] Work Phone: No Panel Informationon 06-26 Estimated Creatinine Clearance Calc 96.98 ml/min [facility] Work Phone: Estimated GFR (MDRD) Amer 110 mL/min >60 [facility] Work Phone: Comment on above: GFR Calc Estimated GFR (MDRD) Non-Af Amer 91 mL/min >60 [facility] Work Phone: Comment on above: Non- GFR Calc Platelets bldon 06-26-2021 Platelets (Bld) [#/Vol] 275 10*3/uL 150-450 [facility] Work Phone: Protein Test strip Ql (U)on 06-26-2021 Protein Ql (U) 30 mg/dl Negative [facility] Work Phone: Serum or plasma calcium carlos alberto urement (mass/volume)on 06-26-2021 Calcium [Mass/Vol] 9.5 mg/dL 8.5-10.1 [facility] Work Phone: Serum or plasma creatinine m easurement (mass/volume)on 06-26-2021 Creatinine [Mass/Vol] 0.92 mg/dL 0.70-1.30 [facility] Work Phone: Comment on above: The validity of the calculated GFR & GFRAA in patients over 70 years has not been determined. Clinical correlation is essential. Serum or plasma urea nitroge n measurement (mass/volume)on 06-26-2021 Urea nitrogen [Mass/Vol] 20 mg/dL 7-18 [facility] Work Phone: Squamous epithelial cells de tection in urine sediment by light microscopyon 06-26-2021 Epithelial cells.squamous LM Ql (Urine sed) 0-5 SEEN /hpf [facility] Work Phone: Thin prep Papanicolaou smear with manual screeningon 06-26-2021 Thin prep Papanicolaou smear with manual screening 6 5-15 [facility] Work Phone: Urine blood detectionon RBC Ql (U) Negative Negative [facility] Work Phone: RBC Ql (U) 0-5 SEEN /hpf [facility] Work Phone: Urine clarityon 06-26-2021 Clarity (U) Clear Clear [facility] Work Phone: Urine color determinationon 06-26-2021 Color (U) Yellow Yellow [facility] Work Phone: Urine glucose detectionon Glucose Ql (U) Normal mg/dl Normal [facility] Work Phone: Urine leukocyte esterase det ection by dipstickon 06-26-2021 Leukocyte esterase Test strip Ql (U) Negative Negative [facility] Work Phone: Urine pHon 06-26-2021 pH (U) 6.0 [pH] [facility] Work Phone: Urine sediment bacteria coun t by microscopy (number/high power field)on 06-26-2021 Bacteria LM.HPF (Urine sed) [#/Area] 0 /[HPF] None Seen [facility] Work Phone: Urine specific gravity measu rementon 06-26-2021 Specific gravity (U) [Rel density] 1.010 [facility] Work Phone: Urobilinogen Auto test strip Ql (U)on 06-26-2021 Urobilinogen Ql (U) Normal mg/dl Normal [facility] Work Phone: EMERGENCY REPORTon 9 EMERGENCY REPORT [facility] EMERGENCY ROOM REPORT NAME ACCOUNT SEX AGE ADMIT DISCHARGE PT MED. RECORD# NUMBER DATE DATE TYPE PEG, [id number] 48 12/26/18 12/26/18 3 RUDDY [place] [id number] ROOM: ER DATE OF : 1970 DICTATING PHYSICIAN: Hansa Martinez CHIEF COMPLAINT: Headache. HISTORY OF PRESENT ILLNESS: This is a 48-year-old male patient who got back from vacation yesterday. He walked into the house, put his luggage down. A cat ran in front of him, and he bent down to get it and his head went into the wall. He said that he started to have a little bit of a headache, not the worst headache of his life. No blurred vision or double vision. He looked back to 2014 where he had some intractable headaches. He was transferred. At that time he was taking pain medications. He states that he used to be a substance abuser, but he is no longer. He states that he actually went to longterm for it as well. He worked all day today. No other medications prior to arrival. Blood pressure is elevated except we will check a manual. He said he used to have high blood pressure but is off of medications. PAST MEDICAL HISTORY: Possible aneurysm. We have a CT angiogram that shows no evidence of that. He never had surgery or intervention. Complex regional pain syndrome (CRPS). PAST SURGICAL HISTORY: Multiple orthopedic surgeries of knee, hand, nose. Hernia. MEDICATIONS: See nursing notes. FAMILY HISTORY: Noncontributory. SOCIAL HISTORY: Positive for tobacco. Denies alcohol or illicit drug abuse. REVIEW OF SYSTEMS: He denies loss of consciousness. No neck pain. No blurred vision. No double vision. No altered mental status. Girlfriend is here who is a nurse. Denies chest pain, shortness of breath, nausea, vomiting, abdominal pain, back pain, numbness, tingling, weakness, loss of bowel or bladder function PHYSICAL EXAMINATION: Pulse 75, respiratory rate 16, temperature 97.7, O2 saturation 97% on room air. He is awake, alert and nontoxic. GCS 15. No external signs of trauma to the head. Pupils are equal and reactive to light bilaterally. Mucous membranes are moist. Trachea is midline. Neck is supple. No facial tenderness. He has some musculoskeletal tenderness at the base of the skull and spasm into the Page 1 of 2 RUDDY RUVALCABA Emergency Room Report RUDDY RUVALCABA : 1970 posterior trapezius muscle, but no midline cervical, thoracic or lumbar. Equal bilateral deicer inspector electric strength, pulses, reflexes. No neurologic deficits. Heart rate and rhythm regular without murmur, gallop or rub. Lungs are clear to auscultation bilaterally without wheezes, rales or rhonchi. Abdomen is soft. Pelvis is stable. No lower extremity edema, or calf tenderness or swelling. DIAGNOSTIC DATA: CT is negative. EMERGENCY DEPARTMENT COURSE AND TREATMENT: I gave him Toradol, Phenergan and Benadryl. DIAGNOSIS: PLAN/DISPOSITION: I will have them recheck the manual blood pressure. He will be discharged with minor head injury, elevated blood pressure. Follow up with PCP in 2-3 days. Return for increasing worsening and new symptoms. Dictated By: Hansa Martinez DO 12/26/18 18:25 JOB #: [id number] Transcribed By: saul 12/27/18 13:10 Electronically signed by: E-Sign: HANSA MARTINEZ MD 01/28/19 10:39 Page 2 of 2 RUDDY RUVALCABA Emergency Room Report Normal [facility] CT BRAIN W/O CONTRASTon 10-0 CT BRAIN W/O CONTRAST [place] [address] Patient: RUDDY RUVALCABA. Phone#: : [phone] Age: 48 Gender: M Pt. Type: ER Account: [id number] Location: 052 Ordering: DR. HANSA MARTINEZ Exam Date: 12/26/2018/17:20 Family Phys: Charge Code: [id number] Physician: [place] Order #: [id number] DLP Dose#: PROCEDURE: CT BRAIN WITHOUT CONTRAST COMPARISON: [facility], CT, BRAIN W/O CON, 03/09/2016, 11:36. INDICATIONS: Headache. TECHNIQUE: CT images were obtained without contrast material. All CT scans at this facility use dose modulation, iterative reconstruction, and/or weight based dosing when appropriate to reduce radiation dose to as low as reasonably achievable. IV CONTRAST: No IV contrast used,ml TOTAL DOSE: 52.3 CTDIvol(mGy) FINDINGS: CEREBRUM: No edema, hemorrhage, mass, or inappropriate atrophy. CEREBELLUM: No edema, hemorrhage, mass, or inappropriate atrophy. BRAINSTEM: No edema, hemorrhage, mass, or inappropriate atrophy. CSF SPACES: Ventricles, cisterns, and sulci are appropriate for age. No hydrocephalus, subarachnoid hemorrhage, or mass. SKULL: No mass or other significant visible lesion. SINUSES: There is an air-fluid level in the right maxillary sinus. There is mild mucosal thickening in the ethmoid air cells. Findings consistent with sinusitis. ORBITS: Limited views are unremarkable. OTHER: Negative. CONCLUSION: 1. No appreciable acute intracranial abnormality. 2. Sinusitis. Continued Report - Page 2 of 2 Patient: RUDDY RUVALCABA Phone#: : [phone] Age: 48 Gender: M Pt. Type: ER Account: [id number] Location: 052 Ordering: DR. HANSA MARTINEZ Exam Date: 12/26/2018/17:20 Family Phys: Charge Code: [id number] Physician: Yazoo Order #: [id number] DLP Dose#: Dictated by: Giovanna Castillo MD on 12/26/2018 at 17:36 Approved by: Giovanna Castillo MD on 12/26/2018 at 17:36 Normal [facility] No Panel Information [facility] Vital Signs Date Time Vital Sign Value Performing Clinician Facility 09-12-2024 17:35-0400 Body temperature 97.9 [degF] Jossy Queden HOME CARE SPECIALIST-C Work Phone: [facility] 09-12-2024 17:35-0400 Diastolic blood pressure 88 mm[Hg] Jossy Queden HOME CARE SPECIALIST-C Work Phone: [facility] 09-12-2024 17:35-0400 Heart rate 81 /min Jossy Queden HOME CARE SPECIALIST-C Work Phone: [facility] 09-12-2024 17:35-0400 Respiratory rate 16 /min Jossy Queden HOME CARE SPECIALIST-C Work Phone: [facility] 09-12-2024 17:35-0400 SaO2% (BldA) [Mass fraction] 97 % Jossy Queden HOME CARE SPECIALIST-C Work Phone: [facility] 09-12-2024 17:35-0400 Systolic blood pressure 192 mm[Hg] Jossy Queden HOME CARE SPECIALIST-C Work Phone: [facility] 09-12-2024 13:57-0400 Body height 177.8 cm Jossy Queden HOME CARE SPECIALIST-C Work Phone: [facility] 09-12-2024 13:57-0400 Body mass index (BMI) [Ratio] 34.9 kg/m2 Jossy Queden HOME CARE SPECIALIST-C Work Phone: [facility] 09-12-2024 13:57-0400 Body weight 110.49 kg Jossy Queden HOME CARE SPECIALIST-C Work Phone: [facility] 06-28-2024 16:58-0400 Body temperature 98 [degF] Jossy Queden HOME CARE SPECIALIST-C Work Phone: [facility] 06-28-2024 16:58-0400 Diastolic blood pressure 98 mm[Hg] Jossy Queden HOME CARE SPECIALIST-C Work Phone: [facility] 06-28-2024 16:58-0400 Heart rate 78 /min Jossy Queden HOME CARE SPECIALIST-C Work Phone: [facility] 06-28-2024 16:58-0400 Respiratory rate 16 /min Jossy Queden HOME CARE SPECIALIST-C Work Phone: [facility] 06-28-2024 16:58-0400 SaO2% (BldA) [Mass fraction] 99 % Jossy Queden HOME CARE SPECIALIST-C Work Phone: [facility] 06-28-2024 16:58-0400 Systolic blood pressure 189 mm[Hg] Jossy Queden HOME CARE SPECIALIST-C Work Phone: [facility] 06-28-2024 13:43-0400 Body height 177.8 cm Jossy Queden HOME CARE SPECIALIST-C Work Phone: [facility] 06-28-2024 13:43-0400 Body mass index (BMI) [Ratio] 36.5 kg/m2 Jossy Queden HOME CARE SPECIALIST-C Work Phone: [facility] 06-28-2024 13:43-0400 Body weight 115.46 kg Jossy Queden HOME CARE SPECIALIST-C Work Phone: [facility] 10-06-2023 10:56-0400 Body temperature 97.39 [degF] Rosie Phillip PT Work Phone: [facility] 10-06-2023 10:56-0400 Heart rate 73 /min Rosie Phillip PT Work Phone: [facility] 10-06-2023 10:56-0400 Respiratory rate 16 /min Rosie AmayaInman PT Work Phone: [facility] 10-06-2023 10:56-0400 SaO2% (BldA) [Mass fraction] 99 % Rosie Phillip PT Work Phone: [facility] 10-02-2023 10:09-0400 Body temperature 97.9 [degF] Rubi Steve FINANCIAL OPERATIONS CONSULTANT Work Phone: [facility] 10-02-2023 10:09-0400 Diastolic blood pressure 86 mm[Hg] Rubi Steve FINANCIAL OPERATIONS CONSULTANT Work Phone: [facility] 10-02-2023 10:09-0400 Heart rate 70 /min Rubi Steve FINANCIAL OPERATIONS CONSULTANT Work Phone: [facility] 10-02-2023 10:09-0400 Respiratory rate 18 /min Rubi Steve FINANCIAL OPERATIONS CONSULTANT Work Phone: [facility] 10-02-2023 10:09-0400 SaO2% (BldA) [Mass fraction] 96 % Rubi Steve FINANCIAL OPERATIONS CONSULTANT Work Phone: [facility] 10-02-2023 10:09-0400 Systolic blood pressure 136 mm[Hg] Rubi Steve FINANCIAL OPERATIONS CONSULTANT Work Phone: [facility] 09-27-2023 10:40-0400 Body temperature 98.2 [degF] Rubi Steve FINANCIAL OPERATIONS CONSULTANT Work Phone: [facility] 09-27-2023 10:40-0400 Diastolic blood pressure 72 mm[Hg] Rubi Steve FINANCIAL OPERATIONS CONSULTANT Work Phone: [facility] 09-27-2023 10:40-0400 Heart rate 69 /min Rubi Steve FINANCIAL OPERATIONS CONSULTANT Work Phone: [facility] 09-27-2023 10:40-0400 Respiratory rate 18 /min Rubi Steve FINANCIAL OPERATIONS CONSULTANT Work Phone: [facility] 09-27-2023 10:40-0400 SaO2% (BldA) [Mass fraction] 96 % Rubi Steve FINANCIAL OPERATIONS CONSULTANT Work Phone: [facility] 09-27-2023 10:40-0400 Systolic blood pressure 118 mm[Hg] Rubi Steve FINANCIAL OPERATIONS CONSULTANT Work Phone: [facility] 09-25-2023 12:38-0400 Body temperature 98.1 [degF] Rubi Steve FINANCIAL OPERATIONS CONSULTANT Work Phone: [facility] 09-25-2023 12:38-0400 Diastolic blood pressure 82 mm[Hg] Rubi Steve FINANCIAL OPERATIONS CONSULTANT Work Phone: [facility] 09-25-2023 12:38-0400 Heart rate 83 /min Rubi Steve FINANCIAL OPERATIONS CONSULTANT Work Phone: [facility] 09-25-2023 12:38-0400 Respiratory rate 18 /min Rubi Steve FINANCIAL OPERATIONS CONSULTANT Work Phone: [facility] 09-25-2023 12:38-0400 SaO2% (BldA) [Mass fraction] 98 % Rubi Steve FINANCIAL OPERATIONS CONSULTANT Work Phone: [facility] 09-25-2023 12:38-0400 Systolic blood pressure 140 mm[Hg] Rubi Steve FINANCIAL OPERATIONS CONSULTANT Work Phone: [facility] 09-22-2023 11:46-0400 Diastolic blood pressure 88 mm[Hg] Thomas Rufener PT Work Phone: [facility] 09-22-2023 11:46-0400 Heart rate 82 /min Thomas Rufener PT Work Phone: [facility] 09-22-2023 11:46-0400 Respiratory rate 16 /min Thomas Rufener PT Work Phone: [facility] 09-22-2023 11:46-0400 SaO2% (BldA) [Mass fraction] 98 % Thomas Rufener PT Work Phone: [facility] 09-22-2023 11:46-0400 Systolic blood pressure 156 mm[Hg] Thomas Rufener PT Work Phone: [facility] 09-22-2023 11:28-0400 Body temperature 97.59 [degF] Thomas Ashlisue PT Work Phone: [facility] 08-28-2023 09:54-0400 Diastolic blood pressure 88 mm[Hg] Pacc 1 Work Phone: [facility] 08-28-2023 09:54-0400 Systolic blood pressure 142 mm[Hg] Pacc 1 Work Phone: [facility] 08-28-2023 09:25-0400 Body height 177.8 cm Pacc 1 Work Phone: [facility] 08-28-2023 09:25-0400 Body mass index (BMI) [Ratio] 38.17 kg/m2 Pacc 1 Work Phone: [facility] 08-28-2023 09:25-0400 Body temperature 97.3 [degF] Pacc 1 Work Phone: [facility] 08-28-2023 09:25-0400 Body weight 120.66 kg Pacc 1 Work Phone: [facility] 08-28-2023 09:25-0400 Heart rate 79 /min Pacc 1 Work Phone: [facility] 08-28-2023 09:25-0400 Respiratory rate 16 /min Pacc 1 Work Phone: [facility] 08-28-2023 09:25-0400 SaO2% (BldA) [Mass fraction] 96 % Pacc 1 Work Phone: [facility] 07-10-2023 17:24-0400 Diastolic blood pressure 92 mm[Hg] Jossy Bianchiden SUPERSONIC ENGINEER.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 Work Phone: [facility] 07-10-2023 17:24-0400 Systolic blood pressure 144 mm[Hg] Jossy Queden SUPERSONIC ENGINEER.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 Work Phone: [facility] 07-10-2023 16:45-0400 Body height 177.8 cm Jossy Queden SUPERSONIC ENGINEER.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 Work Phone: [facility] 07-10-2023 16:45-0400 Body mass index (BMI) [Ratio] 37.74 kg/m2 Jossy Bianchiden SUPERSONIC ENGINEER.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 Work Phone: [facility] 07-10-2023 16:45-0400 Body temperature 98.1 [degF] Jossy Queden SUPERSONIC ENGINEER.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 Work Phone: [facility] 07-10-2023 16:45-0400 Body weight 119.3 kg Jossy Bianchiden SUPERSONIC ENGINEER.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 Work Phone: [facility] 07-10-2023 16:45-0400 Heart rate 86 /min Jossy Bianchiden SUPERSONIC ENGINEER.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 Work Phone: [facility] 07-10-2023 16:45-0400 Respiratory rate 16 /min Jossy Bianchiden SUPERSONIC ENGINEER.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 Work Phone: [facility] 07-10-2023 16:45-0400 SaO2% (BldA) [Mass fraction] 97 % Jossy Bianchiden SUPERSONIC ENGINEER.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 Work Phone: [facility] 06-12-2023 21:35-0400 Body temperature 98 [degF] [facility] 06-12-2023 21:35-0400 Diastolic blood pressure 114 mm[Hg] [facility] 06-12-2023 21:35-0400 Heart rate 98 /min [facility] 06-12-2023 21:35-0400 Respiratory rate 24 /min [facility] 06-12-2023 21:35-0400 SaO2% (BldA) [Mass fraction] 97 % [facility] 06-12-2023 21:35-0400 Systolic blood pressure 169 mm[Hg] [facility] 06-12-2023 20:27-0400 Body mass index (BMI) [Ratio] 37.9 kg/m2 [facility] 06-12-2023 20:27-0400 Body weight 119.83 kg [facility] 06-12-2023 20:22-0400 Body height 177.8 cm [facility] 06-08-2023 14:59-0400 Heart rate 79 /min Micaela Prebish SUPERSONIC ENGINEER.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 Work Phone: [facility] 06-08-2023 14:59-0400 Respiratory rate 18 /min Micaela Prebish SUPERSONIC ENGINEER.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 Work Phone: [facility] 06-08-2023 14:59-0400 SaO2% (BldA) [Mass fraction] 97 % Micaela Prebish SUPERSONIC ENGINEER.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 Work Phone: [facility] 05-26-2023 08:52-0500 Heart rate 87 /min Micaela Prebish SUPERSONIC ENGINEER.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 Work Phone: [facility] 05-26-2023 08:52-0500 Respiratory rate 18 /min Micaela Prebish SUPERSONIC ENGINEER.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 Work Phone: [facility] 05-26-2023 08:52-0500 SaO2% (BldA) [Mass fraction] 97 % Micaela Prebish SUPERSONIC ENGINEER.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 Work Phone: [facility] 04-20-2023 16:04-0500 Diastolic blood pressure 100 mm[Hg] Jossy Queden SUPERSONIC ENGINEER.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 Work Phone: [facility] 04-20-2023 16:04-0500 Systolic blood pressure 162 mm[Hg] Jossy Queden SUPERSONIC ENGINEER.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 Work Phone: [facility] 04-20-2023 15:24-0500 Body height 177.8 cm Jossy Queden SUPERSONIC ENGINEER.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 Work Phone: [facility] 04-20-2023 15:24-0500 Body temperature 98.01 [degF] Jossy Queden SUPERSONIC ENGINEER.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 Work Phone: [facility] 04-20-2023 15:24-0500 Body weight 119.3 kg Josys Queden SUPERSONIC ENGINEER.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 Work Phone: [facility] 04-20-2023 15:24-0500 Heart rate 85 /min Jossy Queden SUPERSONIC ENGINEER.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 Work Phone: [facility] 04-20-2023 15:24-0500 Respiratory rate 18 /min Jossy Queden SUPERSONIC ENGINEER.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 Work Phone: [facility] 04-20-2023 15:24-0500 SaO2% (BldA) [Mass fraction] 96 % Jossy Queden SUPERSONIC ENGINEER.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 Work Phone: [facility] 04-10-2023 18:46-0500 Heart rate 71 /min HOME CARE SPECIALIST-C Jossy Queden HOME CARE SPECIALIST Work Phone: [facility] 04-10-2023 18:46-0500 Respiratory rate 16 /min HOME CARE SPECIALIST-C Jossy Queden HOME CARE SPECIALIST Work Phone: [facility] 04-10-2023 18:46-0500 SaO2% (BldA) [Mass fraction] 95 % HOME CARE SPECIALIST-C Jossy Queden HOME CARE SPECIALIST Work Phone: [facility] 04-10-2023 16:52-0500 Body height 177.8 cm HOME CARE SPECIALIST-C Jossy Queden HOME CARE SPECIALIST Work Phone: [facility] 04-10-2023 16:52-0500 Body mass index (BMI) [Ratio] 38.3 kg/m2 HOME CARE SPECIALIST-C Jossy Queden HOME CARE SPECIALIST Work Phone: [facility] 04-10-2023 16:52-0500 Body temperature 97.1 [degF] HOME CARE SPECIALIST-C Jossy Queden HOME CARE SPECIALIST Work Phone: [facility] 04-10-2023 16:52-0500 Body weight 121.24 kg HOME CARE SPECIALIST-C Jossy Queden HOME CARE SPECIALIST Work Phone: [facility] 04-10-2023 16:52-0500 Diastolic blood pressure 113 mm[Hg] HOME CARE SPECIALIST-C Jossy Queden HOME CARE SPECIALIST Work Phone: [facility] 04-10-2023 16:52-0500 Systolic blood pressure 219 mm[Hg] HOME CARE SPECIALIST-C Jossy Natarajan HOME CARE SPECIALIST Work Phone: [facility] 02-03-2023 11:36-0500 Diastolic blood pressure 95 mm[Hg] Moisés Munguia MD Work Phone: [facility] 02-03-2023 11:36-0500 Systolic blood pressure 160 mm[Hg] Moisés Munguia MD Work Phone: [facility] 02-03-2023 10:41-0500 Body height 177.8 cm Moisés Munguia MD Work Phone: [facility] 02-03-2023 10:41-0500 Body weight 119.39 kg Moisés Munguia MD Work Phone: [facility] 02-03-2023 10:41-0500 Heart rate 80 /min Moisés Munguia MD Work Phone: [facility] 02-03-2023 10:41-0500 SaO2% (BldA) [Mass fraction] 99 % Moisés Munguia MD Work Phone: [facility] 01-20-2023 16:44-0400 Diastolic blood pressure 108 mm[Hg] Jossy Queden SUPERSONIC ENGINEER.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 Work Phone: [facility] 01-20-2023 16:44-0400 Systolic blood pressure 168 mm[Hg] Jossy Queden SUPERSONIC ENGINEER.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 Work Phone: [facility] 01-20-2023 15:55-0400 Body height 177.8 cm Jossy Queden SUPERSONIC ENGINEER.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 Work Phone: [facility] 01-20-2023 15:55-0400 Body temperature 98.29 [degF] Jossy Queden SUPERSONIC ENGINEER.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 Work Phone: [facility] 01-20-2023 15:55-0400 Body weight 118.39 kg Jossy Queden SUPERSONIC ENGINEER.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 Work Phone: [facility] 01-20-2023 15:55-0400 Heart rate 81 /min Jossy Queden SUPERSONIC ENGINEER.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 Work Phone: [facility] 01-20-2023 15:55-0400 Respiratory rate 18 /min Jossy Queden SUPERSONIC ENGINEER.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 Work Phone: [facility] 01-20-2023 15:55-0400 SaO2% (BldA) [Mass fraction] 98 % Jossy Queden SUPERSONIC ENGINEER.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 Work Phone: [facility] 12-29-2022 16:50-0400 Diastolic blood pressure 108 mm[Hg] Jossy Queden SUPERSONIC ENGINEER.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 Work Phone: [facility] 12-29-2022 16:50-0400 Systolic blood pressure 178 mm[Hg] Jossy Queden SUPERSONIC ENGINEER.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 Work Phone: [facility] 12-29-2022 16:19-0400 Body height 177.8 cm Jossy Queden SUPERSONIC ENGINEER.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 Work Phone: [facility] 12-29-2022 16:19-0400 Body temperature 98.01 [degF] Jossy Queden SUPERSONIC ENGINEER.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 Work Phone: [facility] 12-29-2022 16:19-0400 Body weight 117.03 kg Jossy Queden SUPERSONIC ENGINEER.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 Work Phone: [facility] 12-29-2022 16:19-0400 Heart rate 81 /min Jossy Queden SUPERSONIC ENGINEER.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 Work Phone: [facility] 12-29-2022 16:19-0400 SaO2% (BldA) [Mass fraction] 95 % Jossy Queden SUPERSONIC ENGINEER.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 Work Phone: [facility] 12-24-2022 19:23-0400 Diastolic blood pressure 108 mm[Hg] HOME CARE SPECIALIST-C Jossy Queden HOME CARE SPECIALIST Work Phone: [facility] 12-24-2022 19:23-0400 Heart rate 75 /min HOME CARE SPECIALIST-C Jossy Queden HOME CARE SPECIALIST Work Phone: [facility] 12-24-2022 19:23-0400 Respiratory rate 16 /min HOME CARE SPECIALIST-C Jossy Queden HOME CARE SPECIALIST Work Phone: [facility] 12-24-2022 19:23-0400 SaO2% (BldA) [Mass fraction] 97 % HOME CARE SPECIALIST-C Jossy Bianchiden HOME CARE SPECIALIST Work Phone: [facility] 12-24-2022 19:23-0400 Systolic blood pressure 190 mm[Hg] HOME CARE SPECIALIST-C Jossy Queden HOME CARE SPECIALIST Work Phone: [facility] 12-24-2022 18:49-0400 Body temperature 98.3 [degF] HOME CARE SPECIALIST-C Jossy Bianchiden HOME CARE SPECIALIST Work Phone: [facility] 12-24-2022 15:15-0400 Body mass index (BMI) [Ratio] 37 kg/m2 HOME CARE SPECIALIST-C Jossy Bianchiden HOME CARE SPECIALIST Work Phone: [facility] 12-24-2022 15:15-0400 Body weight 117.16 kg HOME CARE SPECIALIST-C Jossy Bianchiden HOME CARE SPECIALIST Work Phone: [facility] 12-24-2022 14:42-0400 Body temperature 97.81 [degF] Andreina Stroud APRN.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 Work Phone: [facility] 12-24-2022 14:42-0400 Body weight 117.03 kg Andreina Stroud APRN.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 Work Phone: [facility] 12-24-2022 14:42-0400 Diastolic blood pressure 102 mm[Hg] Andreina Stroud APRN.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 Work Phone: [facility] 12-24-2022 14:42-0400 Heart rate 86 /min Andreina Stroud APRN.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 Work Phone: [facility] 12-24-2022 14:42-0400 Respiratory rate 16 /min Andreina Stroud APRN.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 Work Phone: [facility] 12-24-2022 14:42-0400 SaO2% (BldA) [Mass fraction] 99 % Andreina Sofiya SUPERSONIC ENGINEER.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 Work Phone: [facility] 12-24-2022 14:42-0400 Systolic blood pressure 182 mm[Hg] Andreina Sofiya SUPERSONIC ENGINEER.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 Work Phone: [facility] 11-29-2022 13:44-0400 Diastolic blood pressure 90 mm[Hg] Jossy Queden SUPERSONIC ENGINEER.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 Work Phone: [facility] 11-29-2022 13:44-0400 Systolic blood pressure 170 mm[Hg] Jossy Queden SUPERSONIC ENGINEER.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 Work Phone: [facility] 11-29-2022 13:12-0400 Body height 177.8 cm Jossy Queden SUPERSONIC ENGINEER.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 Work Phone: [facility] 11-29-2022 13:12-0400 Body temperature 98.6 [degF] Jossy Queden SUPERSONIC ENGINEER.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 Work Phone: [facility] 11-29-2022 13:12-0400 Body weight 113.4 kg Jossy Queden SUPERSONIC ENGINEER.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 Work Phone: [facility] 11-29-2022 13:12-0400 Heart rate 89 /min Jossy Queden SUPERSONIC ENGINEER.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 Work Phone: [facility] 11-29-2022 13:12-0400 Respiratory rate 18 /min Jossy Queden SUPERSONIC ENGINEER.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 Work Phone: [facility] 11-29-2022 13:12-0400 SaO2% (BldA) [Mass fraction] 97 % Jossy Queden SUPERSONIC ENGINEER.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 Work Phone: [facility] 11-17-2022 16:40-0400 Body height 177.8 cm Jossy Queden SUPERSONIC ENGINEER.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 Work Phone: [facility] 11-17-2022 16:40-0400 Body temperature 98.01 [degF] Jossy Queden SUPERSONIC ENGINEER.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 Work Phone: [facility] 11-17-2022 16:40-0400 Body weight 114.76 kg Jossy Queden SUPERSONIC ENGINEER.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 Work Phone: [facility] 11-17-2022 16:40-0400 Diastolic blood pressure 102 mm[Hg] Jossy Queden SUPERSONIC ENGINEER.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 Work Phone: [facility] 11-17-2022 16:40-0400 Heart rate 86 /min Jossy Queden SUPERSONIC ENGINEER.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 Work Phone: [facility] 11-17-2022 16:40-0400 Respiratory rate 20 /min Jossy Queden SUPERSONIC ENGINEER.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 Work Phone: [facility] 11-17-2022 16:40-0400 SaO2% (BldA) [Mass fraction] 98 % Jossy Queden SUPERSONIC ENGINEER.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 Work Phone: [facility] 11-17-2022 16:40-0400 Systolic blood pressure 194 mm[Hg] Jossy Queden SUPERSONIC ENGINEER.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 Work Phone: [facility] 11-04-2022 16:05-0400 Body height 177.8 cm Ascencion Villalba PA-C Work Phone: [facility] 11-04-2022 16:05-0400 Body temperature 98.1 [degF] Ascencion Villalba PA-C Work Phone: [facility] 11-04-2022 16:05-0400 Body weight 116.67 kg Ascencion Villalba PA-C Work Phone: [facility] 11-04-2022 16:05-0400 Diastolic blood pressure 104 mm[Hg] Ascencion Villalba PA-C Work Phone: [facility] 11-04-2022 16:05-0400 Heart rate 84 /min Ascencion Villalba PA-C Work Phone: [facility] 11-04-2022 16:05-0400 Respiratory rate 18 /min Ascencion Villalba PA-C Work Phone: [facility] 11-04-2022 16:05-0400 SaO2% (BldA) [Mass fraction] 98 % Ascencion Villalba PA-C Work Phone: [facility] 11-04-2022 16:05-0400 Systolic blood pressure 200 mm[Hg] Ascencion Villalba PA-C Work Phone: [facility] 10-24-2022 13:38-0400 Body height 177.8 cm Jossy Queden SUPERSONIC ENGINEER.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 Work Phone: [facility] 10-24-2022 13:38-0400 Body temperature 98.4 [degF] Jossy Queden SUPERSONIC ENGINEER.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 Work Phone: [facility] 10-24-2022 13:38-0400 Body weight 113.4 kg Jossy Queden SUPERSONIC ENGINEER.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 Work Phone: [facility] 10-24-2022 13:38-0400 Diastolic blood pressure 74 mm[Hg] Jossy Queden SUPERSONIC ENGINEER.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 Work Phone: [facility] 10-24-2022 13:38-0400 Heart rate 87 /min Jossy Queden SUPERSONIC ENGINEER.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 Work Phone: [facility] 10-24-2022 13:38-0400 Respiratory rate 18 /min Jossy Queden SUPERSONIC ENGINEER.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 Work Phone: [facility] 10-24-2022 13:38-0400 SaO2% (BldA) [Mass fraction] 96 % Jossy Queden SUPERSONIC ENGINEER.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 Work Phone: [facility] 10-24-2022 13:38-0400 Systolic blood pressure 148 mm[Hg] Jossy Queden SUPERSONIC ENGINEER.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 Work Phone: [facility] 10-22-2022 19:31-0400 Diastolic blood pressure 92 mm[Hg] [facility] 10-22-2022 19:31-0400 Heart rate 73 /min [facility] 10-22-2022 19:31-0400 SaO2% (BldA) [Mass fraction] 99 % [facility] 10-22-2022 19:31-0400 Systolic blood pressure 170 mm[Hg] [facility] 10-22-2022 17:27-0400 Body height 177.8 cm [facility] 10-22-2022 17:27-0400 Body mass index (BMI) [Ratio] 36.8 kg/m2 [facility] 10-22-2022 17:27-0400 Body temperature 97.8 [degF] [facility] 10-22-2022 17:27-0400 Body weight 116.6 kg [facility] 10-22-2022 17:27-0400 Respiratory rate 16 /min [facility] 08-23-2022 10:51-0400 Diastolic blood pressure 102 mm[Hg] Jossy Queden SUPERSONIC ENGINEER.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 Work Phone: [facility] 08-23-2022 10:51-0400 Systolic blood pressure 182 mm[Hg] Jossy Queden SUPERSONIC ENGINEER.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 Work Phone: [facility] 08-23-2022 09:36-0400 Body height 177.8 cm Jossy Queden SUPERSONIC ENGINEER.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 Work Phone: [facility] 08-23-2022 09:36-0400 Body temperature 97.7 [degF] Jossy Queden SUPERSONIC ENGINEER.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 Work Phone: [facility] 08-23-2022 09:36-0400 Body weight 110.22 kg Jossy Queden SUPERSONIC ENGINEER.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 Work Phone: [facility] 08-23-2022 09:36-0400 Heart rate 78 /min Jossy Queden SUPERSONIC ENGINEER.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 Work Phone: [facility] 08-23-2022 09:36-0400 Respiratory rate 18 /min Jossy Queden SUPERSONIC ENGINEER.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 Work Phone: [facility] 08-23-2022 09:36-0400 SaO2% (BldA) [Mass fraction] 96 % Jossy Natarajan APRN.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 Work Phone: [facility] 08-18-2022 19:56-0400 Diastolic blood pressure 99 mm[Hg] [facility] 08-18-2022 19:56-0400 Heart rate 76 /min [facility] 08-18-2022 19:56-0400 Respiratory rate 18 /min [facility] 08-18-2022 19:56-0400 SaO2% (BldA) [Mass fraction] 98 % [facility] 08-18-2022 19:56-0400 Systolic blood pressure 187 mm[Hg] [facility] 08-18-2022 16:21-0400 Body height 177.8 cm [facility] 08-18-2022 16:21-0400 Body mass index (BMI) [Ratio] 35 kg/m2 [facility] 08-18-2022 16:21-0400 Body temperature 98.9 [degF] [facility] 08-18-2022 16:21-0400 Body weight 110.76 kg [facility] 07-27-2022 08:46-0400 Body temperature 98.49 [degF] Cinthia Mcwilliams APRN.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 Work Phone: [facility] 07-27-2022 08:46-0400 Body weight 109.68 kg Cinthia Mcwilliams APRN.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 Work Phone: [facility] 07-27-2022 08:46-0400 Diastolic blood pressure 98 mm[Hg] Cinthia Mcwilliams APRN.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 Work Phone: [facility] 07-27-2022 08:46-0400 Heart rate 86 /min Cinthia Mcwilliams APRN.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 Work Phone: [facility] 07-27-2022 08:46-0400 Respiratory rate 20 /min Cinthia Mcwilliams APRN.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 Work Phone: [facility] 07-27-2022 08:46-0400 SaO2% (BldA) [Mass fraction] 96 % Cinthia Knoble SUPERSONIC ENGINEER.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 Work Phone: [facility] 07-27-2022 08:46-0400 Systolic blood pressure 158 mm[Hg] Cinthia Mcwilliams SUPERSONIC ENGINEER.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 Work Phone: [facility] 12-16-2021 14:00-0400 Diastolic blood pressure 90 mm[Hg] Suad Huddleston PT Work Phone: [facility] 12-16-2021 14:00-0400 Systolic blood pressure 154 mm[Hg] Suad Huddleston PT Work Phone: [facility] 12-16-2021 13:31-0400 Respiratory rate 16 /min Suad Huddleston PT Work Phone: [facility] 12-11-2021 11:25-0400 Diastolic blood pressure 110 mm[Hg] Naty Molina FINANCIAL OPERATIONS CONSULTANT Work Phone: [facility] 12-11-2021 11:25-0400 Heart rate 70 /min Naty Molina FINANCIAL OPERATIONS CONSULTANT Work Phone: [facility] 12-11-2021 11:25-0400 SaO2% (BldA) [Mass fraction] 97 % Naty Molina FINANCIAL OPERATIONS CONSULTANT Work Phone: [facility] 12-11-2021 11:25-0400 Systolic blood pressure 182 mm[Hg] Naty Molina FINANCIAL OPERATIONS CONSULTANT Work Phone: [facility] 12-11-2021 10:48-0400 Body temperature 98.4 [degF] Naty Molina FINANCIAL OPERATIONS CONSULTANT Work Phone: [facility] 12-10-2021 15:37-0400 Diastolic blood pressure 100 mm[Hg] Jossy Queden SUPERSONIC ENGINEER.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 Work Phone: [facility] 12-10-2021 15:37-0400 Systolic blood pressure 172 mm[Hg] Jossy Queden SUPERSONIC ENGINEER.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 Work Phone: [facility] 12-10-2021 15:03-0400 Body height 177.8 cm Jossy Queden SUPERSONIC ENGINEER.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 Work Phone: [facility] 12-10-2021 15:03-0400 Body temperature 98.01 [degF] Jossy Queden SUPERSONIC ENGINEER.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 Work Phone: [facility] 12-10-2021 15:03-0400 Body weight 109.32 kg Jossy Queden SUPERSONIC ENGINEER.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 Work Phone: [facility] 12-10-2021 15:03-0400 Heart rate 76 /min Jossy Queden SUPERSONIC ENGINEER.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 Work Phone: [facility] 12-10-2021 15:03-0400 Respiratory rate 18 /min Jossy Queden SUPERSONIC ENGINEER.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 Work Phone: [facility] 12-10-2021 15:03-0400 SaO2% (BldA) [Mass fraction] 98 % Jossy Queden SUPERSONIC ENGINEER.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 Work Phone: [facility] 12-08-2021 10:49-0400 Diastolic blood pressure 98 mm[Hg] Rubi Steve FINANCIAL OPERATIONS CONSULTANT Work Phone: [facility] 12-08-2021 10:49-0400 Heart rate 82 /min Rubi Steve FINANCIAL OPERATIONS CONSULTANT Work Phone: [facility] 12-08-2021 10:49-0400 SaO2% (BldA) [Mass fraction] 98 % Rubi Steve FINANCIAL OPERATIONS CONSULTANT Work Phone: [facility] 12-08-2021 10:49-0400 Systolic blood pressure 178 mm[Hg] Rubi Steve FINANCIAL OPERATIONS CONSULTANT Work Phone: [facility] 12-08-2021 10:03-0400 Body temperature 97.81 [degF] Rubi Steve FINANCIAL OPERATIONS CONSULTANT Work Phone: [facility] 12-08-2021 10:03-0400 Respiratory rate 18 /min Rubi Steve FINANCIAL OPERATIONS CONSULTANT Work Phone: [facility] 12-06-2021 10:10-0400 Diastolic blood pressure 100 mm[Hg] Rosie Phillip PT Work Phone: [facility] 12-06-2021 10:10-0400 Heart rate 84 /min Rosie Phillip PT Work Phone: [facility] 12-06-2021 10:10-0400 SaO2% (BldA) [Mass fraction] 99 % Rosie Phillip PT Work Phone: [facility] 12-06-2021 10:10-0400 Systolic blood pressure 190 mm[Hg] Rosie Phillip PT Work Phone: [facility] 12-06-2021 09:10-0400 Body temperature 98.4 [degF] Rosie Phillip PT Work Phone: [facility] 12-06-2021 09:10-0400 Respiratory rate 18 /min Rosie Phillip PT Work Phone: [facility] 12-04-2021 15:14-0400 Diastolic blood pressure 88 mm[Hg] Luiz Mcknight PT Work Phone: [facility] 12-04-2021 15:14-0400 Heart rate 99 /min Luiz Mcknight PT Work Phone: [facility] 12-04-2021 15:14-0400 SaO2% (BldA) [Mass fraction] 97 % Luiz Mcknight PT Work Phone: [facility] 12-04-2021 15:14-0400 Systolic blood pressure 172 mm[Hg] Luiz Mcknight PT Work Phone: [facility] 12-04-2021 14:35-0400 Body temperature 98.91 [degF] Luiz Mcknight PT Work Phone: [facility] 11-29-2021 08:00-0400 Diastolic blood pressure 100 mm[Hg] Jaime Golias PT Work Phone: [facility] 11-29-2021 08:00-0400 Systolic blood pressure 164 mm[Hg] Jaime Golias PT Work Phone: [facility] 11-26-2021 15:00-0400 Diastolic blood pressure 94 mm[Hg] Jossy Queden SUPERSONIC ENGINEER.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 Work Phone: [facility] 11-26-2021 15:00-0400 Systolic blood pressure 152 mm[Hg] Jossy Queden SUPERSONIC ENGINEER.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 Work Phone: [facility] 11-26-2021 14:22-0400 Body height 177.8 cm Jossy Queden SUPERSONIC ENGINEER.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 Work Phone: [facility] 11-26-2021 14:22-0400 Body temperature 97.81 [degF] Jossy Queden SUPERSONIC ENGINEER.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 Work Phone: [facility] 11-26-2021 14:22-0400 Body weight 111.13 kg Jossy Queden SUPERSONIC ENGINEER.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 Work Phone: [facility] 11-26-2021 14:22-0400 Heart rate 76 /min Jossy Queden SUPERSONIC ENGINEER.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 Work Phone: [facility] 11-26-2021 14:22-0400 Respiratory rate 16 /min Jossy Queden SUPERSONIC ENGINEER.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 Work Phone: [facility] 11-26-2021 14:22-0400 SaO2% (BldA) [Mass fraction] 96 % Jossy Queden SUPERSONIC ENGINEER.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 Work Phone: [facility] 11-15-2021 14:57-0400 Diastolic blood pressure 104 mm[Hg] Pacc 1 Work Phone: [facility] 11-15-2021 14:57-0400 Systolic blood pressure 176 mm[Hg] Pacc 1 Work Phone: [facility] 11-15-2021 14:17-0400 Body height 177.8 cm Pacc 1 Work Phone: [facility] 11-15-2021 14:17-0400 Body temperature 98.1 [degF] Pacc 1 Work Phone: [facility] 11-15-2021 14:17-0400 Body weight 111.13 kg Pac 1 Work Phone: [facility] 11-15-2021 14:17-0400 Heart rate 76 /min Pac 1 Work Phone: [facility] 11-15-2021 14:17-0400 Respiratory rate 18 /min Pac 1 Work Phone: [facility] 11-15-2021 14:17-0400 SaO2% (BldA) [Mass fraction] 96 % Pac 1 Work Phone: [facility] 08-13-2021 10:21-0400 Body temperature 97.59 [degF] Martha Praisler-Wood SUPERSONIC ENGINEER.[facility] Work Phone: [facility] 08-13-2021 10:21-0400 Body weight 107.5 kg Martha Praisler-Wood SUPERSONIC ENGINEER.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 Work Phone: [facility] 08-13-2021 10:21-0400 Diastolic blood pressure 88 mm[Hg] Martha Praisler-Wood SUPERSONIC ENGINEER.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 Work Phone: [facility] 08-13-2021 10:21-0400 Heart rate 84 /min Martha Praisler-Wood SUPERSONIC ENGINEER.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 Work Phone: [facility] 08-13-2021 10:21-0400 Respiratory rate 18 /min Martha Praisler-Wood SUPERSONIC ENGINEER.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 Work Phone: [facility] 08-13-2021 10:21-0400 SaO2% (BldA) [Mass fraction] 97 % Martha Praisler-Wood SUPERSONIC ENGINEER.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 Work Phone: [facility] 08-13-2021 10:21-0400 Systolic blood pressure 154 mm[Hg] Martha Praisler-Wood SUPERSONIC ENGINEER.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 Work Phone: [facility] 06-26-2021 23:00-0400 Body temperature 98.4 [degF] [facility] Work Phone: 06-26-2021 23:00-0400 Diastolic blood pressure 88 mm[Hg] [facility] Work Phone: 06-26-2021 23:00-0400 Heart rate 78 /min [facility] Work Phone: 06-26-2021 23:00-0400 Respiratory rate 18 /min [facility] Work Phone: 06-26-2021 23:00-0400 SaO2% (BldA) [Mass fraction] 98 % [facility] Work Phone: 06-26-2021 23:00-0400 Systolic blood pressure 154 mm[Hg] [facility] Work Phone: 06-26-2021 21:02-0400 Body height 177.8 cm [facility] Work Phone: 06-26-2021 21:02-0400 Body mass index (BMI) [Ratio] 34.3 kg/m2 [facility] Work Phone: 06-26-2021 21:02-0400 Body weight 108.6 kg [facility] Work Phone: Encounters Encounter Date Encounter Type Care Provider Facility Start: 10-12-2024 End: 10-12-2024 ambulatory SELF Facility:[facility] Start: 10-10-2024 ambulatory NOAH GRATER Facility :[facility] Start: 09-30-2024 End: 09-30-2024 ambulatory KT MORTENSEN Facility:[facility] Start: 09-12-2024 End: 09-12-2024 Emergency department patient visit Jossy Natarajan HOME CARE SPECIALIST-C Work Phone: -Emergency Department Work Phone: Start: 09-11-2024 End: 09-11-2024 Emergency department patient visit JOSSY NATARAJAN Facility:[facility] Start: 07-15-2024 End: 07-15-2024 ambulatory JOSSY NATARAJAN Facility:[facility] Start: 06-28-2024 End: 06-28-2024 Emergency department patient visit Jossy Natarajan HOME CARE SPECIALIST-C Work Phone: -Emergency Department Work Phone: Start: 06-11-2024 End: 06-11-2024 ambulatory NOAH GRATER Facility:[facility] Start: 06-07-2024 End: 06-07-2024 ambulatory JIHAN C TATO [facility] Start: 06-05-2024 End: 06-05-2024 ambulatory JOSSY A KIARA Facility:[facility] Start: 05-10-2024 End: 05-10-2024 ambulatory NOAH GRATER Facility:[facility] Start: 05-07-2024 End: 05-07-2024 ambulatory NOAH GRATER Facility:[facility] Start: 02-12-2024 End: 02-12-2024 ambulatory NOAH GRATER Facility:[facility] Start: 01-11-2024 End: 01-11-2024 ambulatory JOSSY A KIARA Facility:[facility] Start: 01-09-2024 End: 01-09-2024 ambulatory JOSSY A TASHANTHONY Facility:[facility] Start: 01-08-2024 End: 01-10-2024 Refill Noah Grater SUPERSONIC ENGINEER.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 Work Phone: Orthopaedics Comment on above: Refill Request Pain Start: 01-02-2024 End: 01-02-2024 Refill Noah Grater SUPERSONIC ENGINEER.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 Work Phone: Orthopaedics Comment on above: Refill Request Start: 12-26-2023 End: 12-27-2023 Refill Noah Grater SUPERSONIC ENGINEER.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 Work Phone: Orthopaedics Comment on above: Refill Request Start: 12-19-2023 End: 12-20-2023 Refill Noah Grater SUPERSONIC ENGINEER.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 Work Phone: Orthopaedics Comment on above: Refill Request Start: 12-13-2023 End: 12-14-2023 ambulatory Troy Graham PT Work Phone: [facility] Comment on above: Post-traumatic osteo arthritis of left knee (Primary Dx); Status post knee replacement, unspecified laterality Refill Request Start: 12-07-2023 End: 12-07-2023 Refill Noah De Anda SUPERSONIC ENGINEER.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 Work Phone: Orthopaedics Comment on above: Refill Request Post-traumatic osteo arthritis of left knee (Primary Dx); Status post knee replacement, unspecified laterality Start: 12-06-2023 ambulatory JOSSY Vika KIARA [facility] Start: 12-06-2023 End: 12-06-2023 Subsequent hospital visit by physician Yenifer/Yaw [address] [place] [address] Work Phone: Radiology Comment on above: Status post total le ft knee replacement [Z96.652] Start: 11-30-2023 End: 12-01-2023 ambulatory Troy Graham PT Work Phone: [facility] Comment on above: Post-traumatic osteo arthritis of left knee (Primary Dx) Refill Request Start: 11-28-2023 End: 11-28-2023 ambulatory JOSSY NATARAJAN Facility:[facility] Start: 11-28-2023 End: 11-29-2023 Patient encounter procedure Heath Delgado MD Work Phone: Orthopaedics Comment on above: Status post total le ft knee replacement (Primary Dx) Start: 11-28-2023 End: 11-28-2023 Subsequent hospital visit by physician Radio Solomon [facility] Work Phone: Radiology Comment on above: Status post total le ft knee replacement [Z96.652] Start: 11-23-2023 End: 11-23-2023 ambulatory HEATH DELGADO Facility:[facility] Start: 11-23-2023 End: 11-23-2023 ambulatory HEATH DELGADO Facility:[facility] Start: 11-23-2023 End: 11-24-2023 Patient encounter procedure Heath Delgado MD Work Phone: Orthopaedics Comment on above: Status post left kne e replacement (Primary Dx) Refill Request Start: 11-21-2023 End: 11-22-2023 ambulatory Noah De Anda SUPERSONIC ENGINEER.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 Work Phone: Orthopaedics Comment on above: Swelling Start: 11-16-2023 End: 11-17-2023 Refill Noah Grater SUPERSONIC ENGINEER.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 Work Phone: Orthopaedics Comment on above: Refill Request Start: 11-13-2023 End: 11-13-2023 ambulatory NOAH GRATER Facility:[facility] Start: 11-13-2023 End: 11-13-2023 Patient encounter procedure Noah Grater SUPERSONIC ENGINEER.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 Work Phone: Orthopaedics Comment on above: Pain due to total le ft knee replacement, initial encounter ([facility]) (Primary Dx); S/P total knee arthroplasty, left Start: 11-12-2023 End: 11-12-2023 Emergency department patient visit JOSSY NATARAJAN Facility:[facility] Start: 11-10-2023 End: 11-10-2023 ambulatory NOAH GRATER Facility:[facility] Start: 11-08-2023 End: 11-08-2023 ambulatory Troy Graham PT Work Phone: [facility] Comment on above: Post-traumatic osteo arthritis of left knee (Primary Dx) Start: 11-07-2023 End: 11-08-2023 Refill Noah Grater SUPERSONIC ENGINEER.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 Work Phone: Orthopaedics Comment on above: Refill Request Start: 11-02-2023 Refill Noah Grater SUPERSONIC ENGINEER.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 Work Phone: Orthopaedics Comment on above: Refill Request Start: 10-27-2023 Telephone encounter Moisés Munguia MD Work Phone: [facility] Cardiology [place] Comment on above: Appointment Refill Request Start: 10-26-2023 Refill Noah Grater SUPERSONIC ENGINEER.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 Work Phone: Orthopaedics Comment on above: Refill Request Start: 10-19-2023 Refill Noah Grater SUPERSONIC ENGINEER.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 Work Phone: Orthopaedics Comment on above: Refill Request Start: 10-13-2023 End: 10-13-2023 Patient encounter procedure Noah Grater SUPERSONIC ENGINEER.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 Work Phone: Orthopaedics Comment on above: Nerve pain (Primary Dx); S/P total knee arthroplasty, left Start: 10-08-2023 Refill Noah De Anda APRN.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 Work Phone: [facility] Comment on above: Refill Request Start: 10-06-2023 End: 10-06-2023 Home visit Rosie Phillip PT Work Phone: [facility] Comment on above: PT AGENCY DC W VISIT Start: 10-03-2023 End: 10-03-2023 Nursing evaluation of patient and report Bryant Guerrier RN Orthopaedics Comment on above: Status post left kne e replacement (Primary Dx); Neuropathy; Nerve pain Start: 10-03-2023 ambulatory JOSSY Webb ty:[facility] Start: 10-03-2023 End: 10-03-2023 Subsequent hospital visit by physician [facility] Work Phone: Radiology Comment on above: Chronic pain of left knee [M25.562, G89.29] Start: 10-02-2023 End: 10-02-2023 Home visit Rubi Wilson FINANCIAL OPERATIONS CONSULTANT Work Phone: [facility] Comment on above: FINANCIAL OPERATIONS CONSULTANT ROUTINE Chronic pain of left knee (Primary Dx); Post-traumatic osteoarthritis of left knee Start: 10-02-2023 Telephone encounter Rubi Dunn on FINANCIAL OPERATIONS CONSULTANT Work Phone: [facility] Comment on above: Home Care (Bandage r emoval) Start: 09-29-2023 End: 09-29-2023 Home visit Rubidexter Wilson FINANCIAL OPERATIONS CONSULTANT Work Phone: [facility] Comment on above: FINANCIAL OPERATIONS CONSULTANT UNMADE VISIT Refill Request Start: 09-29-2023 Telephone encounter Rubi Mona on FINANCIAL OPERATIONS CONSULTANT Work Phone: [facility] Comment on above: Home Care (Unmade PT visit) Start: 09-28-2023 ambulatory Noah De Anda SUPERSONIC ENGINEER.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 Work Phone: Orthopaedics Comment on above: Pain Start: 09-27-2023 End: 09-27-2023 Home visit Donna Corrales RN Work Phone: [facility] Comment on above: CARE COORDINATION FINANCIAL OPERATIONS CONSULTANT ROUTINE Start: 09-25-2023 End: 09-25-2023 Home visit Rubi Wilson FINANCIAL OPERATIONS CONSULTANT Work Phone: [facility] Comment on above: FINANCIAL OPERATIONS CONSULTANT ROUTINE Start: 09-24-2023 Refill Israel Grimm Work Phone: [facility] Comment on above: Refill Request Start: 09-22-2023 Telephone encounter Thomas Cornelius er PT Work Phone: [facility] Comment on above: Home Care (P.T. Star t of Care) Refill Request Start: 09-22-2023 End: 09-22-2023 Home visit Thomas Issa PT Work Phone: [facility] Comment on above: PT SOC Start: 09-21-2023 Telephone encounter Damien watson WEIGHER ALLOY Work Phone: [facility] Comment on above: Home Care Start: 09-20-2023 End: 09-20-2023 Home visit Thomas Issa PT Work Phone: [facility] Comment on above: PT UNMADE VISIT Start: 09-20-2023 Telephone encounter Thomas Cornelius er PT Work Phone: [facility] Comment on above: Home Care (Delay in P.T. Start of care) Start: 09-19-2023 Telephone encounter Lauren Frye PSS [facility] Comment on above: Home Care (CONFIRMAT ION CALL) Start: 09-18-2023 End: 09-19-2023 [facility] Start: 09-12-2023 Telephone encounter Moisés Munguia MD Work Phone: [facility] Cardiology Comment on above: Results Start: 09-11-2023 End: 09-11-2023 Nursing evaluation of patient and report Nurse Card Admin [facility] Work Phone: Cardiology Comment on above: MONROY (dyspnea on exer tion) Start: 09-11-2023 End: 09-11-2023 Subsequent hospital visit by physician [facility] Work Phone: Nuclear Medicine Comment on above: MONROY (dyspnea on exer tion) [R06.09] Start: 09-07-2023 Refill Jossy Garzon en 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 Work Phone: [facility] Comment on above: Refill Request Start: 09-05-2023 ambulatory Nurse Card Adm in [facility] Work Phone: Cardiology Comment on above: Stress Test Instruct ions for 09/11/23 Start: 09-05-2023 E-mail encounter sharon kirby caregiver Nurse Card Admin [facility] Work Phone: Cardiology Start: 08-30-2023 Telephone encounter Moisés Munguia MD Work Phone: [facility] Cardiology [facility] Start: 08-30-2023 ambulatory JOSSY NATARAJAN Facili ty:[facility] Start: 08-30-2023 End: 08-30-2023 Subsequent hospital visit by physician Ct [facility] Radiology Comment on above: Chronic pain of left knee [M25.562, G89.29] Start: 08-29-2023 Preprocedural examination done Margie Barrera APRN.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 Work Phone: [facility] Work Phone: Start: 08-29-2023 Telephone encounter Margie Barrera APRN.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 Work Phone: Pre Anesthesia Comment on above: Results Start: 08-28-2023 Telephone encounter Margie Barrera APRN.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 Work Phone: Pre Anesthesia Comment on above: Pre-op Cardiac Start: 08-28-2023 End: 08-28-2023 Admission to establishment Pacc Marvin 1 Work Phone: Pre Anesthesia Start: 08-28-2023 End: 08-28-2023 Anesthesia consultation [facility] [address] Work Phone: Pre Anesthesia Comment on above: Pre-operative examin ation (Primary Dx); Hypertension, essential; Mixed hyperlipidemia; MONROY (dyspnea on exertion); Tobacco smoker, 1 pack of cigarettes or less per day; Status post knee replacement, unspecified laterality; S/P insertion of spinal cord stimulator; RSD (reflex sympathetic dystrophy); Class 2 severe obesity due to excess calories with serious comorbidity and body mass index (BMI) of 38.0 to 38.9 in adult (HCC) Start: 08-28-2023 End: 08-28-2023 Preprocedural examination done [facility] [address] Work Phone: [facility] Work Phone: Start: 08-24-2023 Refill Jossy A Qued en SUPERSONIC ENGINEER.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 Work Phone: [facility] Comment on above: Refill Request Start: 08-11-2023 Refill Jossy A Qued en SUPERSONIC ENGINEER.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 Work Phone: [facility] Comment on above: Refill Request Start: 08-08-2023 ambulatory Jossy A Qued en SUPERSONIC ENGINEER.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 Work Phone: [facility] Comment on above: Vacation Start: 08-05-2023 Refill Jossy A Qued en SUPERSONIC ENGINEER.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 Work Phone: [facility] Comment on above: Refill Request Start: 08-02-2023 Telephone encounter Heath king MD Work Phone: [address] Comment on above: Pre-Op Teaching Start: 07-31-2023 Orders Only Heath Goode Work Phone: Orthopaedics Comment on above: Post-traumatic osteo arthritis of left knee (Primary Dx); Chronic pain of left knee Start: 07-29-2023 Refill Jossy A Qued en SUPERSONIC ENGINEER.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 Work Phone: [facility] Comment on above: Refill Request Start: 07-22-2023 Refill Jossy A Qued en SUPERSONIC ENGINEER.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 Work Phone: [facility] Comment on above: Refill Request Start: 07-15-2023 Refill Jossy A Qued en SUPERSONIC ENGINEER.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 Work Phone: [facility] Comment on above: Refill Request Start: 07-10-2023 End: 07-10-2023 Patient encounter procedure Jossy A Queden SUPERSONIC ENGINEER.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 Work Phone: [facility] Comment on above: Post-traumatic osteo arthritis of right knee (Primary Dx); Left knee pain, unspecified chronicity; Strain of left hamstring muscle, initial encounter; Left leg pain; RSD (reflex sympathetic dystrophy); Hypertension, essential Start: 07-05-2023 Refill Jossy A Qued en SUPERSONIC ENGINEER.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 Work Phone: [facility] Comment on above: Refill Request Start: 06-28-2023 ambulatory Jossy A Qued en SUPERSONIC ENGINEER.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 Work Phone: [facility] Start: 06-28-2023 Patient encounter procedure Jossy A Queden SUPERSONIC ENGINEER.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 Work Phone: [facility] Comment on above: Appointment Start: 06-27-2023 Refill Jihan Mccormick l SUPERSONIC ENGINEER.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 Work Phone: [facility] Comment on above: Refill Request Start: 06-21-2023 Refill Jossy A Qued en SUPERSONIC ENGINEER.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 Work Phone: [facility] Comment on above: Refill Request Start: 06-12-2023 End: 06-12-2023 Emergency department patient visit [facility] Work Phone: Start: 06-08-2023 End: 06-08-2023 Office outpatient visit 25 minutes Micaela Flowers SUPERSONIC ENGINEER.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 Work Phone: [facility] Comment on above: RSD (reflex sympathe tic dystrophy) (Primary Dx); Chronic pain of left knee Start: 06-08-2023 Refill Jossy A Qued en SUPERSONIC ENGINEER.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 Work Phone: [facility] Comment on above: Refill Request Start: 06-01-2023 End: 06-01-2023 Patient encounter procedure Heath Delgado MD Work Phone: Orthopaedics Comment on above: Post-traumatic osteo arthritis of left knee (Primary Dx); Chronic pain of left knee; Failure of total knee replacement, initial encounter ([facility]) ([facility]) Refill Request Start: 05-26-2023 ambulatory Jossy A Tashd en SUPERSONIC ENGINEER.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 Work Phone: [facility] Comment on above: Medication Start: 05-26-2023 Telephone encounter Micaela schaefer SUPERSONIC ENGINEER.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 Work Phone: Pain Management Comment on above: Patient Question Refill Request Start: 05-26-2023 End: 05-26-2023 Office outpatient new 45 minutes Micaela Flowers SUPERSONIC ENGINEER.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 Work Phone: [facility] Comment on above: RSD (reflex sympathe tic dystrophy) (Primary Dx); Chronic pain of left knee Start: 05-18-2023 ambulatory Jossy A Tashd en SUPERSONIC ENGINEER.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 Work Phone: [facility] Start: 05-18-2023 Patient encounter procedure Jossy Natarajan SUPERSONIC ENGINEER.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 Work Phone: [facility] Comment on above: Dr Appointment Start: 05-17-2023 End: 05-17-2023 Patient encounter procedure Apolonia Duggan Dobson Work Phone: Orthopaedics Comment on above: Post-traumatic osteo arthritis of right knee (Primary Dx) Strain of left hamst ring muscle, initial encounter (Primary Dx); Left leg pain; Chronic pain of left knee; Primary osteoarthritis of left hip Start: 05-17-2023 ambulatory JOSSY NATARAJAN Facili [facility] Start: 05-17-2023 End: 05-17-2023 Subsequent hospital visit by physician Radio General Lauren Goldsmith Work Phone: Radiology Comment on above: Left knee pain, unsp ecified chronicity [M25.562] Start: 05-09-2023 Get Medical Advice Jossy Vika Queden SUPERSONIC ENGINEER.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 Work Phone: [facility] Comment on above: Refill Start: 05-08-2023 Refill Jossy A Qued en SUPERSONIC ENGINEER.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 Work Phone: [facility] Comment on above: Refill Request Start: 04-27-2023 ambulatory Jossy A Qued en SUPERSONIC ENGINEER.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 Work Phone: [facility] Start: 04-27-2023 Patient encounter procedure Jossy A Queden SUPERSONIC ENGINEER.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 Work Phone: [facility] Comment on above: Appointment Refill Request Start: 04-20-2023 End: 04-20-2023 Patient encounter procedure Jossy Vika Queden SUPERSONIC ENGINEER.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 Work Phone: [facility] Comment on above: Left leg pain (Prima ry Dx); Strain of left hamstring muscle, initial encounter; Left hamstring injury, initial encounter; Acute pain of left knee Start: 04-10-2023 End: 04-10-2023 Emergency department patient visit HOME CARE SPECIALIST-C Jossy Natarajan HOME CARE SPECIALIST Work Phone: [facility] Work Phone: Start: 03-09-2023 Telephone encounter Micaela schaefer SUPERSONIC ENGINEER.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 Work Phone: [facility] Comment on above: No Show Start: 02-03-2023 End: 02-03-2023 Patient encounter procedure Moisés Munguia MD Work Phone: [facility] [place] Comment on above: Hypertension, unspec ified type (Primary Dx); Mixed hyperlipidemia; Obesity, Class I, BMI 30-34.9; Nicotine use disorder, F17.2; Class 2 severe obesity due to excess calories with serious comorbidity and body mass index (BMI) of 35.0 to 35.9 in adult ; RSD (reflex sympathetic dystrophy); MONROY (dyspnea on exertion) Start: 01-26-2023 Refill Jossy Bianchid en SUPERSONIC ENGINEER.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 Work Phone: [facility] Comment on above: Refill Request Start: 01-20-2023 End: 01-20-2023 Patient encounter procedure Jossy A Kiara SUPERSONIC ENGINEER.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 Work Phone: [facility] Comment on above: Uncontrolled hyperte nsion (Primary Dx); At risk for sleep apnea; Intractable headache, unspecified chronicity pattern, unspecified headache type; Left flank pain; DDD (degenerative disc disease), lumbar; Battery end of life of spinal cord stimulator; Nicotine use disorder, F17.2; Headache upon awakening Start: 01-16-2023 ambulatory Jossy Bianchid en SUPERSONIC ENGINEER.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 Work Phone: [facility] Comment on above: Pain Management Start: 01-05-2023 Telephone encounter Jonnie Alexander MD Work Phone: [facility] [place] Comment on above: Appointment ([employer] ) Start: 12-29-2022 End: 12-29-2022 Patient encounter procedure Jossy Natarajan SUPERSONIC ENGINEER.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 Work Phone: [facility] Comment on above: Uncontrolled hyperte nsion (Primary Dx); Chronic left flank pain; DDD (degenerative disc disease), lumbar; DDD (degenerative disc disease), thoracic; Left flank pain Start: 12-27-2022 ambulatory Luiz Polanco MA [facility] Comment on above: ED OUTREACH (ED OUTR ABIMBOLA/MARVIN/12/24/2022) Start: 12-26-2022 End: 12-26-2022 Subsequent hospital visit by physician Xr [facility] Work Phone: Radiology Comment on above: Left flank pain [R10 .9] Renal cyst [N28.1] Start: 12-24-2022 Non-patient / Non-visit HOME CARE SPECIALIST-C Bennie Natarajan HOME CARE SPECIALIST Work Phone: [facility] Work Phone: Start: 12-24-2022 End: 12-24-2022 Emergency department patient visit HOME CARE SPECIALIST-C Jossy Natarajan HOME CARE SPECIALIST Work Phone: [facility] Work Phone: Start: 12-24-2022 End: 12-24-2022 Patient encounter procedure Andreina Stroud SUPERSONIC ENGINEER.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 Work Phone: [facility] Comment on above: Vision changes (Prim poli Dx) Start: 12-19-2022 Telephone encounter Gabriella Johnson RT( R) Radiology Comment on above: MRI Safety Team Start: 12-14-2022 Telephone encounter Jossy Sandy Queden SUPERSONIC ENGINEER.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 Work Phone: [facility] Start: 12-12-2022 Orders Only Kt lanier MD Work Phone: [facility] Comment on above: Stage 1 chronic kidn ey disease (Primary Dx); Anemia of renal disease; Vitamin D deficiency; Other proteinuria; Essential hypertension Start: 12-11-2022 Refill Jossy A Qued en SUPERSONIC ENGINEER.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 Work Phone: [facility] Comment on above: Refill Request Start: 12-06-2022 MC Get Medical Advice Jossy A Queden SUPERSONIC ENGINEER.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 Work Phone: [facility] Comment on above: Sleep Study/Refill Start: 12-05-2022 Refill Jossy A Qued en SUPERSONIC ENGINEER.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 Work Phone: [facility] Comment on above: Refill Request Start: 11-30-2022 Refill Jossy A Qued en SUPERSONIC ENGINEER.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 Work Phone: [facility] Comment on above: Refill Request Start: 11-29-2022 End: 11-29-2022 Patient encounter procedure Jossy A Queden SUPERSONIC ENGINEER.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 Work Phone: [facility] Comment on above: Uncontrolled hyperte nsion (Primary Dx); Renal artery stenosis (HCC); Left flank pain Start: 11-17-2022 End: 11-17-2022 Patient encounter procedure Jossy A Queden SUPERSONIC ENGINEER.AINSLEY Work Phone: [facility] Comment on above: Uncontrolled hyperte nsion (Primary Dx); Renal artery stenosis (HCC); Left flank pain; Bilateral renal stones; Tobacco smoker, 1 pack of cigarettes or less per day Start: 11-17-2022 Telephone encounter Jossy A Queden SUPERSONIC ENGINEER.AINSLEY Work Phone: [facility] Comment on above: Patient Update Start: 11-14-2022 Telephone encounter Ascencion bowers PA-C Work Phone: Urology Comment on above: Results; Orders Start: 11-11-2022 End: 11-11-2022 Subsequent hospital visit by physician [facility] Work Phone: Radiology Comment on above: Left flank pain [R10 .9] Start: 11-10-2022 End: 11-10-2022 Office outpatient visit 25 minutes Kt Mortensen MD Work Phone: [facility] Comment on above: Renal artery stenosi s (HCC) (Primary Dx); Essential hypertension; Anemia of renal disease; Stage 1 chronic kidney disease; Vitamin D deficiency; Hypertension, essential; Hyperuricemia; Other proteinuria Start: 11-04-2022 End: 11-04-2022 Patient encounter procedure Ascencion Villalba PA-C Work Phone: Urology Comment on above: Left flank pain; Bilateral renal stones Start: 10-30-2022 Refill Jossy A Qued en SUPERSONIC ENGINEER.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 Work Phone: [facility] Comment on above: Refill Request Start: 10-26-2022 ambulatory Jossy A Qued en SUPERSONIC ENGINEER.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 Work Phone: [facility] Start: 10-26-2022 Patient encounter procedure Jossy A Queden SUPERSONIC ENGINEER.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 Work Phone: [facility] Comment on above: Appointments Start: 10-24-2022 End: 10-24-2022 Patient encounter procedure Jossy A Queden SUPERSONIC ENGINEER.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 Work Phone: [facility] Comment on above: Left flank pain (Nenita luiz Dx); Bilateral renal stones; Uncontrolled hypertension; History of kidney stones Start: 10-22-2022 End: 10-22-2022 Emergency department patient visit [facility] Work Phone: Start: 10-17-2022 ambulatory Miguel Laguna MD Work Phone: Orthopaedics Comment on above: Pain Start: 09-23-2022 ambulatory Kati Robles RN AG VNS Start: 09-23-2022 Follow-up encounter Kati Robles RN AG [employer] [facility] Comment on above: Transition Of Care ( TCM Follow up) Start: 09-16-2022 Telephone encounter Jossy Natarajan SUPERSONIC ENGINEER.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 Work Phone: [facility] Comment on above: No Show (Second no s how in 365 days.) Start: 09-13-2022 ambulatory Kati Robles RN AG VNS Start: 09-13-2022 Follow-up encounter Kati Robles RN AG [employer] Comment on above: Transition Of Care ( TCM Follow up); Pillowcase Cutter- Other (Primary Care Coordination Intake Attempt) Start: 09-05-2022 Telephone encounter Jossy Natarajan SUPERSONIC ENGINEER.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 Work Phone: [facility] Comment on above: Results Start: 09-02-2022 Patient Outreach Kati Robles RN AG [employer] [facility] Comment on above: Transition Of Care ( D/C (AMA) from [facility] 09/01/22) Start: 08-28-2022 ambulatory Jossy A Tashd en SUPERSONIC ENGINEER.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 Work Phone: [facility] Comment on above: Blood Pressure Start: 08-24-2022 ambulatory Jossy A Qued en SUPERSONIC ENGINEER.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 Work Phone: [facility] Comment on above: Blood Pressure Start: 08-23-2022 ambulatory Jossy A Tashd en SUPERSONIC ENGINEER.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 Work Phone: [facility] Comment on above: Blood Pressure Start: 08-23-2022 End: 08-23-2022 Patient encounter procedure Jossy A Queden SUPERSONIC ENGINEER.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 Work Phone: [facility] Comment on above: Uncontrolled hyperte nsion (Primary Dx); Severe headache; Blurry vision, bilateral; Right flank pain; Nausea; History of kidney stones; Tobacco smoker, 1 pack of cigarettes or less per day; Obesity, Class I, BMI 30-34.9; At risk for sleep apnea Start: 08-21-2022 Refill Miguel Laguna MD Work Phone: Orthopaedics Comment on above: Refill Request Start: 08-19-2022 Refill Jossy A Qued en SUPERSONIC ENGINEER.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 Work Phone: [facility] Comment on above: Refill Request Start: 08-18-2022 End: 08-18-2022 Emergency department patient visit [facility] Start: 08-18-2022 ambulatory Jossy A Qued en SUPERSONIC ENGINEER.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 Work Phone: [facility] Comment on above: Hospital Refill Request Start: 08-17-2022 Refill Miguel Laguna MD Work Phone: Orthopaedics Comment on above: Refill Request Start: 08-13-2022 Refill Miguel Laguna MD Work Phone: Orthopaedics Comment on above: Refill Request Start: 08-01-2022 End: 08-01-2022 Subsequent hospital visit by physician Roxie [facility] Work Phone: Radiology Comment on above: Pain of right hip [M 25.551] Start: 07-28-2022 Refill Miguel Laguna MD Work Phone: Orthopaedics Comment on above: Refill Request Start: 07-27-2022 Telephone encounter Niki donnelly PA-C Work Phone: [facility] Comment on above: Results Start: 07-27-2022 End: 07-27-2022 Subsequent hospital visit by physician Roxie [facility] Work Phone: Radiology Comment on above: Acute cough [R05.1] Start: 07-27-2022 End: 07-27-2022 Patient encounter procedure Cinthia Oj BEASLEY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 Work Phone: [facility] Comment on above: Acute cough (Primary Dx); Viral bronchitis Start: 07-25-2022 Refill Miguel Laguna MD Work Phone: Orthopaedics Comment on above: Refill Request Start: 07-21-2022 ambulatory Miguel Laguna MD Work Phone: Orthopaedics Comment on above: Hip Start: 07-17-2022 Refill Miguel Laguna MD Work Phone: Orthopaedics Comment on above: Refill Request Start: 07-11-2022 Refill Miguel Laguna MD Work Phone: Orthopaedics Comment on above: Refill Request Start: 2022 Refill Miguel Laguna MD Work Phone: Orthopaedics Comment on above: Refill Request Start: 07-04-2022 Orders Only Miguel Laguna MD Work Phone: Orthopaedics Start: 07-01-2022 Refill Miguel Laguna MD Work Phone: Orthopaedics Comment on above: Refill Request Start: 06-22-2022 Refill Miguel Laguna MD Work Phone: Orthopaedics Comment on above: Refill Request Start: 06-14-2022 Refill Miguel Laguna MD Work Phone: Orthopaedics Comment on above: Refill Request Start: 06-08-2022 Refill Miguel Laguna MD Work Phone: Orthopaedics Comment on above: Refill Request Start: 06-06-2022 End: 06-06-2022 Patient encounter procedure Miguel Laguna MD Work Phone: Orthopaedics Comment on above: Post-op pain (Primar y Dx); Status post total right knee replacement Start: 06-02-2022 Orders Only Monica montenegro PA-C Work Phone: Orthopaedics Comment on above: Status post total ri ght knee replacement (Primary Dx) Start: 05-31-2022 ambulatory Miguel Laguna MD Work Phone: Orthopaedics Comment on above: Pain Refill Request Start: 05-25-2022 Refill Miguel Laguna MD Work Phone: Orthopaedics Comment on above: Refill Request Start: 05-23-2022 Refill Miguel Laguna MD Work Phone: Orthopaedics Comment on above: Refill Request Start: 05-18-2022 Refill Miguel Laguna MD Work Phone: Orthopaedics Comment on above: Refill Request Start: 05-11-2022 Refill Miguel Laguna MD Work Phone: Orthopaedics Comment on above: Refill Request Start: 05-03-2022 Refill Miguel Laguna MD Work Phone: Orthopaedics Comment on above: Refill Request Start: 04-29-2022 Telephone encounter Jossy Natarajan APRN.CNP Work Phone: [facility] Comment on above: Lab Orders Start: 04-25-2022 End: 04-25-2022 Patient encounter procedure Miguel Laguna MD Work Phone: Orthopaedics Comment on above: Post-op pain Start: 04-17-2022 ambulatory Miguel Laguna MD Work Phone: Orthopaedics Comment on above: Swelling Refill Request Start: 04-04-2022 ambulatory Monica Vetovit z PA-C Work Phone: Orthopaedics Comment on above: No Relief Start: 03-22-2022 Orders Only Monica Vetovit z PA-C Work Phone: Orthopaedics Comment on above: Status post total ri ght knee replacement (Primary Dx) Pain Start: 03-14-2022 ambulatory Miguel Laguna MD Work Phone: Orthopaedics Comment on above: Severe Pain Start: 02-25-2022 Refill Monica Vetovit z PA-C Work Phone: [facility] Comment on above: Refill Request Start: 02-21-2022 End: 02-21-2022 Patient encounter procedure Miguel Laguna MD Work Phone: Orthopaedics Comment on above: Status post total ri ght knee replacement (Primary Dx) Start: 02-16-2022 Refill Monica Vetovit z PA-C Work Phone: [facility] Comment on above: Refill Request Start: 02-13-2022 ambulatory Monica Vetovit z PA-C Work Phone: Orthopaedics Comment on above: Swelling Start: 02-06-2022 Refill Monica Vetovit z PA-C Work Phone: [facility] Comment on above: Refill Request Start: 01-28-2022 Telephone encounter Jossy Natarajan APRN.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 Work Phone: [facility] Comment on above: Patient Question Start: 01-26-2022 Telephone encounter Monica Vet ovitz PA-C Work Phone: Orthopaedics Comment on above: Results Start: 01-25-2022 Refill Monica Vetovit z PA-C Work Phone: [facility] Comment on above: Refill Request Start: 01-19-2022 End: 01-19-2022 ambulatory Cindy O'Jose PT [facility] Comment on above: Status post knee rep lacement, unspecified laterality (Primary Dx) Start: 01-15-2022 Refill Monica Vetovit z PA-C Work Phone: [facility] Comment on above: Refill Request Start: 01-13-2022 End: 01-13-2022 Patient encounter procedure Miguel Laguna MD Work Phone: Orthopaedics Comment on above: Status post total ri ght knee replacement (Primary Dx) Start: 01-06-2022 End: 01-06-2022 ambulatory Cindy O'Jose PT [facility] Comment on above: Status post knee rep lacement, unspecified laterality (Primary Dx) Refill Request Start: 01-03-2022 Telephone encounter Jossy Natarajan APRN.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 Work Phone: [facility] Comment on above: No Show (Pt now show ed for appt ) Start: 12-30-2021 Refill Monica Vetovit z PA-C Work Phone: [facility] Comment on above: Refill Request Start: 12-29-2021 End: 12-29-2021 ambulatory Cindy Burch PT [facility] Comment on above: Status post knee rep lacement, unspecified laterality (Primary Dx) Start: 12-24-2021 Telephone encounter Miguel grant MD Work Phone: Orthopaedics Comment on above: Prescription Refills (Pain med); Patient Question Start: 12-16-2021 Telephone encounter Suad dodge PT Work Phone: [facility] Comment on above: Home Care Start: 12-16-2021 End: 12-16-2021 Home visit Suad Huddleston PT Work Phone: [facility] Comment on above: PT AGENCY DC W VISIT Start: 12-15-2021 Refill Monica Vetovit z PA-C Work Phone: [facility] Comment on above: Refill Request Start: 12-14-2021 ambulatory Jossy Garzon en SUPERSONIC ENGINEER.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 Work Phone: [facility] [employer] [facility] Start: 12-11-2021 End: 12-11-2021 Home visit Naty Molina FINANCIAL OPERATIONS CONSULTANT Work Phone: [facility] Comment on above: FINANCIAL OPERATIONS CONSULTANT ROUTINE Start: 12-10-2021 End: 12-10-2021 Patient encounter procedure Jossy Natarajan SUPERSONIC ENGINEER.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 Work Phone: [facility] Comment on above: Essential hypertensi on (Primary Dx); Urinary frequency; Tobacco smoker, 1 pack of cigarettes or less per day Start: 12-10-2021 Telephone encounter Rosie Phillip PT Work Phone: [facility] Comment on above: Home Care (Missed vi sit ) Start: 12-10-2021 End: 12-10-2021 Home visit Rosie Phillip PT Work Phone: [facility] Comment on above: PT UNMADE VISIT Start: 12-09-2021 Orders Only Miguel Laguna MD Work Phone: Orthopaedics Comment on above: Post-traumatic osteo arthritis of right knee (Primary Dx); Status post total right knee replacement Start: 12-08-2021 Telephone encounter Rubi Mona on FINANCIAL OPERATIONS CONSULTANT Work Phone: [facility] Comment on above: Home Care (Bandage r emoval) Start: 12-08-2021 End: 12-08-2021 Home visit Rubi Steve FINANCIAL OPERATIONS CONSULTANT Work Phone: [facility] Comment on above: FINANCIAL OPERATIONS CONSULTANT ROUTINE Start: 12-07-2021 Refill Israel Grimm Work Phone: [facility] Comment on above: Refill Request Start: 12-06-2021 Telephone encounter Rosie Phillip PT Work Phone: [facility] Comment on above: Home Care (Elevated BP) 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 Start: 12-06-2021 End: 12-06-2021 Home visit Rosie Phillip PT Work Phone: [facility] Comment on above: PT CASE MANAGEMENT V ISIT Start: 12-04-2021 End: 12-04-2021 Home visit Luiz Mcknight PT Work Phone: [facility] Comment on above: PT SOC Start: 12-03-2021 Telephone encounter Rosie Phillip PT Work Phone: [facility] Comment on above: Home Care (Missed vi sit) Start: 12-03-2021 End: 12-03-2021 Home visit Rosie Phillip PT Work Phone: [facility] Comment on above: PT UNMADE VISIT Start: 12-02-2021 Telephone encounter Lauren Frye PSS [facility] Comment on above: Home Care Arrangemen ts (INS Coverage) Start: 12-01-2021 Telephone encounter Lauren ORTIZ [facility] Comment on above: Home Care (CONFIRMAT ION CALL) Start: 11-29-2021 End: 11-29-2021 ambulatory Jaime So PT Work Phone: [facility] Comment on above: Post-traumatic osteo arthritis of right knee; Preop examination Start: 11-29-2021 End: 11-29-2021 Preprocedural examination done Jaimealix Lauias PT Work Phone: [facility] Start: 11-26-2021 End: 11-26-2021 Patient encounter procedure Jossy Natarajan APRN.CNP Work Phone: [facility] Comment on above: Essential hypertensi on (Primary Dx); Tobacco smoker, 1 pack of cigarettes or less per day; Class 2 severe obesity due to excess calories with serious comorbidity and body mass index (BMI) of 35.0 to 35.9 in adult ([facility]); At risk for obstructive sleep apnea Start: 11-15-2021 End: 11-15-2021 Admission to establishment [facility] [place] [facility] Work Phone: [facility] [place] Start: 11-15-2021 End: 11-15-2021 ambulatory [facility] Work Phone: Pre Anesthesia Comment on above: Pre-operative examin ation (Primary Dx); Post-traumatic osteoarthritis of right knee; Essential hypertension; S/P insertion of spinal cord stimulator; Headaches; RSD (reflex sympathetic dystrophy); Class 2 severe obesity due to excess calories with serious comorbidity and body mass index (BMI) of 35.0 to 35.9 in adult ([facility]) Start: 11-15-2021 End: 11-15-2021 Preprocedural examination done [facility] Work Phone: Pre Anesthesia Start: 11-11-2021 Orders Only Israel Grimm Work Phone: Orthopaedics Comment on above: Post-traumatic osteo arthritis of right knee (Primary Dx); Preop examination Appointment Pre-Op Teaching Start: 11-11-2021 Preprocedural examination done Israel Santacruz PA-C Work Phone: Orthopaedics Start: 11-03-2021 Telephone encounter Miguel grant MD Work Phone: Orthopaedics Comment on above: Schedule Surgery Start: 11-01-2021 End: 11-01-2021 Patient encounter procedure Miguel Laguna MD Work Phone: Orthopaedics Comment on above: Post-traumatic osteo arthritis of right knee (Primary Dx); Chronic pain of right knee Start: 10-27-2021 Orders Only Miguel Laguna MD Work Phone: Orthopaedics Comment on above: Right knee pain, uns pecified chronicity (Primary Dx) Start: 08-13-2021 End: 08-13-2021 Patient encounter procedure Martha Benavides SUPERSONIC ENGINEER.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 Work Phone: [facility] Comment on above: Dental infection (Pr imary Dx) Start: 06-26-2021 End: 06-26-2021 Emergency department patient visit [facility] Start: 12-26-2018 End: 12-26-2018 Emergency department patient visit [facility] Procedures Date Procedure Procedure Detail Performing Clinician Start: 09-12-2024 Estimated creatinine clearance Jossy Queden HOME CARE SPECIALIST-C Work Phone: Start: 06-28-2024 Urnls dip stick/tablet reagent auto microscopy Jossy Queden HOME CARE SPECIALIST-C Work Phone: Start: 06-28-2024 CT of abdomen and pelvis without contrast Jossy Queden HOME CARE SPECIALIST-C Work Phone: Start: 06-28-2024 Estimated creatinine clearance Jossy Queden HOME CARE SPECIALIST-C Work Phone: Start: 12-06-2023 Arthrocentesis aspir&/inj major jt/bursa w/us Heath Delgado MD Work Phone: Start: 11-13-2023 Cul bact xcpt urine blood/stool aerobic isol Noah De Anda SUPERSONIC ENGINEER.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 Work Phone: Start: 11-13-2023 Arthrocentesis aspir&/inj major jt/bursa w/o us Noah Jamey GOULD.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 Work Phone: Start: 10-03-2023 Radiologic examination knee 3 views Heath Delgado MD Work Phone: Start: 09-11-2023 Myocardial spect multiple studies Moisés Munguia MD Work Phone: Start: 05-17-2023 Arthrocentesis aspir&/inj major jt/bursa w/o us Darleen Sharif John DO Work Phone: Start: 05-17-2023 Radex hip unilateral with pelvis 2-3 views Darleen Sharif John DO Work Phone: Start: 05-17-2023 Cell count misc body fluids w/differential count Darleen Sharif John DO Work Phone: Start: 05-17-2023 Crystal id light microscopy jacqueline tiss/any fluid Darleen Verdugodenise DO Work Phone: Start: 05-17-2023 CYTOLOGY NON-PSYCHOLOGY TECHNICIAN Darleen Verdugoeri rudy DO Work Phone: Start: 05-17-2023 SF STAFF REVIEW (LAB ORDER) Darleen Sharif John DO Work Phone: Start: 05-17-2023 SYNOVIAL FLUID MANUAL DIFF Deepika Cheryle michaels DO Work Phone: Start: 05-17-2023 Radiologic exam knee complete 4/more views Deepikahomero Lopez DO Work Phone: Start: 04-10-2023 Plain X-ray of femur HOME CARE SPECIALIST-C Jossy Natarajan HOME CARE SPECIALIST Work Phone: Start: 02-03-2023 Ecg routine ecg w/least 12 lds w/i&r Moisés Munguia MD Work Phone: Start: 12-26-2022 End: 12-26-2022 Radex spine lumbosacral 2/3 views Jossy Natarajan SUPERSONIC ENGINEER.CERAMIC COATER MACHINE Work Phone: Start: 12-26-2022 Us retroperitoneal real time w/image complete Kt Mortensen MD Work Phone: Start: 12-24-2022 CT of head without contrast HOME CARE SPECIALIST-C Jossy Natarajan HOME CARE SPECIALIST Work Phone: Start: 11-11-2022 Us retroperitoneal real time w/image complete Ascencion Villalba PA-C Work Phone: Start: 10-22-2022 CT of abdomen and pelvis without contrast Start: 08-18-2022 Plain chest X-ray Start: 08-18-2022 CT of head without contrast Start: 08-01-2022 Radex hip unilateral with pelvis 2-3 views Monica Venegas PA-C Work Phone: Start: 07-27-2022 Radiologic exam chest 2 views Cinthia Mcwilliams SUPERSONIC ENGINEER.CERAMIC COATER MACHINE Work Phone: Start: 12-29-2021 H/O: artificial joint Status post knee replacement, unspecified laterality Cindy O'Jose PT Start: 12-27-2021 Lipid 1996 panel - Serum or Plasma Jossy Natarajan SUPERSONIC ENGINEER.CERAMIC COATER MACHINE Work Phone: Start: 11-15-2021 Ecg routine ecg w/least 12 lds w/i&r [facility] Provider Start: 06-26-2021 CT of abdomen and pelvis without contrast Start: 11-14-2018 Jonnie Benavides SUPERSONIC ENGINEER.CERAMIC COATER MACHINE Work Phone: H/O: artificial joint Status pos t knee replacement, unspecified laterality Cindy O'Jose PT H/O: artificial joint Status pos t knee replacement, unspecified laterality Cindy O'Jose PT H/O: artificial joint Status pos t knee replacement, unspecified laterality Sandy Richardson FINANCIAL OPERATIONS CONSULTANT Work Phone: H/O: artificial joint Status pos t knee replacement, unspecified laterality Troy Graham PT Work Phone: H/O: artificial joint Status pos t knee replacement, unspecified laterality [facility] [place] [facility] Work Phone: Plan of Treatment Date Care Activity Detail Author Start: 11-14-2028 Colonoscopy COLONOSCOPY [facility] Start: 11-14-2028 COLORECTAL CANCER SCREENING COLORECTAL CANCER SCREENING [facility] Start: 11-14-2028 Screening for malignant neoplasm of colon [facility] Start: 12-27-2026 Lipid 1996 panel - Serum or Plasma Lipid Screening [facility] Start: 12-27-2026 Lipid panel Lipid Screening [facility] Start: 12-27-2026 LIPID SCREEN LIPID SCREEN [facility] Start: 11-11-2026 Diabetes Screening Diabetes Screening [facility] Start: 09-18-2026 Diabetes Screening Diabetes Screening [facility] Start: 08-27-2026 Diabetes Screening Diabetes Screening [facility] Start: 09-01-2025 DIABETES SCREEN DIABETES SCREEN [facility] Start: 09-01-2025 Diabetes Screening Diabetes Screening [facility] Start: 01-08-2025 Annual PCP Team Chronic Disease Visit Annual PCP Team Chronic Disease Visit [facility] Start: 01-08-2025 BP Controlled (<130/80) BP Controlled (<130/80) [facility] Start: 01-08-2025 Hepatitis B Vaccine (1 of 3 - 19+ 3-dose series) Hepatitis B Vaccine (1 of 3 - 19+ 3-dose series) [facility] Comment on above: Postponed from 07/10/1987 (Declined at t his time) Start: 01-08-2025 Hepatitis C screening Hepatitis C Screening [facility] Comment on above: Postponed from 1986 (Declined at t his time) Start: 01-08-2025 HIV screening HIV Screening [facility] Comment on above: Postponed from 1986 (Declined at t his time) Start: 01-08-2025 Pneumococcal vaccination Pneumococcal Vaccine (1 of 2 - PCV) [facility] Comment on above: Postponed from 1974 (Declined at t his time) Start: 01-08-2025 Shingrix Vaccine (1 of 2) Shingrix Vaccine (1 of 2) [facility] Comment on above: Postponed from 2018 (Declined at t his time) Start: 01-08-2025 Urine microalbumin profile DTaP,Tdap,Td Vaccine (1 - Tdap) [facility] Comment on above: Postponed from 07/10/1987 (Declined at t his time) Start: 11-15-2024 DIABETES SCREEN DIABETES SCREEN [facility] Start: 09-26-2024 BP Controlled (<130/80) BP Controlled (<130/80) [facility] Start: 09-16-2024 Influenza [facility] Comment on above: Postponed from 11/19/2023 (Declined at t his time) Start: 09-12-2024 [facility] Start: 2024 Annual PCP Team Chronic Disease Visit Annual PCP Team Chronic Disease Visit [facility] Start: 04-20-2024 Annual PCP Team Chronic Disease Visit Annual PCP Team Chronic Disease Visit [facility] Start: 02-09-2024 End: 02-09-2024 Patient encounter procedure 02/09/2024 2:00 PM EST Office Visit [facility] [address] [place], [place] [id number] Shar Toussaint, SUPERSONIC ENGINEER.CERAMIC COATER MACHINE [address] [place] [address] Overdue Follow up. robert.-lvm [facility] Comment on above: Overdue Follow up. robert.-lvm Start: 01-23-2024 End: 01-23-2024 Patient encounter procedure 01/23/2024 10:20 AM EST Office Visit [facility] [address] [place] [address] Jossy Natarajan, SUPERSONIC ENGINEER.CERAMIC COATER MACHINE [address] [place] [address] Check up [facility] Comment on above: Check up Start: 01-21-2024 Annual PCP Team Chronic Disease Visit Annual PCP Team Chronic Disease Visit [facility] Start: 01-09-2024 End: 01-09-2024 Patient encounter procedure 01/09/2024 8:40 AM EDT Office Visit [facility] [address] [place] [address] Jossy Natarajan, SUPERSONIC ENGINEER.CERAMIC COATER MACHINE [address] [place] [address] Check up [facility] Comment on above: Check up Start: 12-30-2023 Annual PCP Team Chronic Disease Visit Annual PCP Team Chronic Disease Visit [facility] Start: 12-27-2023 End: 12-27-2023 ambulatory 12/27/2023 10:00 AM EDT OT/PT/Speech Visit [facility] [address] [place] [address] Troy Graham, PT [address] [facility] [place] [address] M17.32 (ICD-10-CM) - Post-traumatic osteoarthritis of left knee [facility] Comment on above: M17.32 (ICD-10-CM) - Post-traumatic oste oarthritis of left knee Start: 12-25-2023 End: 12-25-2023 ambulatory 12/25/2023 10:15 AM EDT OT/PT/Speech Visit [facility] [address] [place] [address] Sandy Richardson, FINANCIAL OPERATIONS CONSULTANT [address] [place] [address] M17.32 (ICD-10-CM) - Post-traumatic osteoarthritis of left knee [facility] Comment on above: M17.32 (ICD-10-CM) - Post-traumatic oste oarthritis of left knee Start: 12-20-2023 End: 12-20-2023 ambulatory 12/20/2023 2:00 PM EDT OT/PT/Speech Visit [facility] [address] [place] [address] Sandy Richardson, FINANCIAL OPERATIONS CONSULTANT [address] [place] [address] M17.32 (ICD-10-CM) - Post-traumatic osteoarthritis of left knee [facility] Comment on above: M17.32 (ICD-10-CM) - Post-traumatic oste oarthritis of left knee Start: 12-18-2023 End: 12-18-2023 ambulatory 12/18/2023 10:15 AM EDT OT/PT/Speech Visit [facility] [address] [place] [address] Sandy Richardson, FINANCIAL OPERATIONS CONSULTANT [address] [place] [address] M17.32 (ICD-10-CM) - Post-traumatic osteoarthritis of left knee [facility] Comment on above: M17.32 (ICD-10-CM) - Post-traumatic oste oarthritis of left knee Start: 12-16-2023 Annual PCP Team Chronic Disease Visit Annual PCP Team Chronic Disease Visit [facility] Start: 12-13-2023 End: 12-13-2023 ambulatory 12/13/2023 10:00 AM EDT OT/PT/Speech Visit [facility] [address] [place] [address] Troy Graham, PT [address] [place] [address] M17.32 (ICD-10-CM) - Post-traumatic osteoarthritis of left knee [facility] Comment on above: M17.32 (ICD-10-CM) - Post-traumatic oste oarthritis of left knee Start: 12-11-2023 End: 12-11-2023 ambulatory 12/11/2023 12:15 PM EDT OT/PT/Speech Visit [facility] [address] [address] Troy Graham, PT [address] [place] [address] M17.32 (ICD-10-CM) - Post-traumatic osteoarthritis of left knee [facility] Comment on above: M17.32 (ICD-10-CM) - Post-traumatic oste oarthritis of left knee Start: 12-07-2023 End: 12-07-2023 ambulatory 12/07/2023 10:15 AM EDT OT/PT/Speech Visit [facility] [address] [place] [address] Sandy Richardson, FINANCIAL OPERATIONS CONSULTANT [address] [place] [address] M17.32 (ICD-10-CM) - Post-traumatic osteoarthritis of left knee [facility] Comment on above: M17.32 (ICD-10-CM) - Post-traumatic oste oarthritis of left knee Start: 12-06-2023 End: 12-06-2023 Patient encounter procedure 12/06/2023 9:30 AM EDT Appointment Radiology [address] [place] [address] Lt Knee Aspiration Radiology Comment on above: Lt Knee Aspiration Start: 12-04-2023 End: 12-04-2023 ambulatory 12/04/2023 10:30 AM EDT OT/PT/Speech Visit [facility] [address] [place] [address] Candie Blakely, PT, DPT M17.32 (ICD-10-CM) - Post-traumatic osteoarthritis of left knee [facility] Comment on above: M17.32 (ICD-10-CM) - Post-traumatic oste oarthritis of left knee Start: 11-30-2023 Annual PCP Team Chronic Disease Visit Annual PCP Team Chronic Disease Visit [facility] Start: 11-30-2023 End: 11-30-2023 ambulatory 11/30/2023 10:00 AM EDT OT/PT/Speech Visit [facility] [address] [place], [place] [id number] Troy Graham, PT [address] [facility] [place], [place] [id number] M17.32 (ICD-10-CM) - Post-traumatic osteoarthritis of left knee [facility] Comment on above: M17.32 (ICD-10-CM) - Post-traumatic oste oarthritis of left knee Start: 11-28-2023 End: 11-28-2023 Patient encounter procedure 11/28/2023 1:00 PM EDT Office Visit Orthopaedics [address] [address] Heath Delgado MD [address] [address] s/p L TKA 09/17 Orthopaedics Comment on above: s/p L TKA 09/17 Start: 11-27-2023 End: 11-27-2023 ambulatory 11/27/2023 12:30 PM EDT OT/PT/Speech Visit [facility] [address] [place], [place] [id number] Shakira Richardsonh, [facility] [address] [place] [address] M17.32 (ICD-10-CM) - Post-traumatic osteoarthritis of left knee [facility] Comment on above: M17.32 (ICD-10-CM) - Post-traumatic oste oarthritis of left knee Start: 11-23-2023 End: 02-22-2024 C reactive protein [Mass/volume] in Serum or Plasma [facility] Work Phone: Comment on above: Expected: 11/23/2023, Expires: Start: 11-23-2023 End: 11-23-2023 Patient encounter procedure 11/23/2023 9:40 AM EDT Office Visit Orthopaedics [address] [address] Heath Delgado MD [address] [address] s/p L TKA 09/17 (Per Dr Delgado) Orthopaedics Comment on above: s/p L TKA 09/17 (Per Dr Delgado) Start: 11-23-2023 End: 11-23-2023 ambulatory 11/23/2023 8:45 AM EDT OT/PT/Speech Visit [facility] [address] [facility] [place] [place] [address] Bernardchristitrung Sandy, FINANCIAL OPERATIONS CONSULTANT [address] [facility] [address] M17.32 (ICD-10-CM) - Post-traumatic osteoarthritis of left knee [facility] Comment on above: M17.32 (ICD-10-CM) - Post-traumatic oste oarthritis of left knee Start: 11-19-2023 Covid-19 Vaccine ( season) Covid-19 Vaccine ( season) [facility] Start: 11-19-2023 Covid-19 Vaccine ( season) Covid-19 Vaccine () [facility] Start: 11-19-2023 Influenza vaccination [facility] Start: 11-18-2023 ANNUAL PCP TEAM CHRONIC DISEASE VISIT ANNUAL PCP TEAM CHRONIC DISEASE VISIT [facility] Start: 11-15-2023 End: 11-15-2023 ambulatory 11/15/2023 10:00 AM EDT OT/PT/Speech Visit [facility] [address] [facility] [place] [address] Troy Graham, PT [address] [facility] [place], [place] [id number] M17.32 (ICD-10-CM) - Post-traumatic osteoarthritis of left knee [facility] Comment on above: M17.32 (ICD-10-CM) - Post-traumatic oste oarthritis of left knee Start: 11-08-2023 ANNUAL PCP TEAM CHRONIC DISEASE VISIT ANNUAL PCP TEAM CHRONIC DISEASE VISIT [facility] Start: 11-08-2023 End: 11-08-2023 ambulatory 11/08/2023 10:45 AM EDT OT/PT/Speech Visit [facility] [address] [facility] [place] [address] Troy Graham, PT [address] [place] [address] LT KNEE REPLACEMENT [facility] Comment on above: LT KNEE REPLACEMENT Start: 11-07-2023 End: 11-07-2023 Patient encounter procedure 11/07/2023 2:00 PM EDT Office Visit Orthopaedics [address] [address] Heath Delgado MD [address] [address] s/p L TKA 09/17 Orthopaedics Comment on above: s/p L TKA 09/17 Start: 10-25-2023 ANNUAL PCP TEAM CHRONIC DISEASE VISIT ANNUAL PCP TEAM CHRONIC DISEASE VISIT [facility] Start: 10-13-2023 End: 10-13-2023 Patient encounter procedure 10/13/2023 10:00 AM EDT Office Visit Orthopaedics [address] [place] [address] Noah De Anda 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.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 [address] [place] [phone] s/p L TKA, increased pain Orthopaedics Comment on above: s/p L TKA, increased pain Start: 10-09-2023 End: 10-09-2023 ambulatory 10/09/2023 10:00 AM EDT OT/PT/Speech Visit [facility] [address] [place] [address] Srinath Corbin, PT [address] [place], [place] [address] LT TKR [facility] DC 10/04 [facility] Comment on above: LT TKR [facility] DC 10/04 Start: 10-05-2023 End: 10-05-2023 Patient encounter procedure [facility] Comment on above: [id number] L TKA Start: 10-03-2023 End: 10-03-2023 Nursing evaluation of patient and report 10/03/2023 11:00 AM EDT Nurse Visit Orthopaedics [address] [address] Bryant Guerrier RN S/P Robotic L TKA W/screw removal 09-18-2023 Orthopaedics Comment on above: S/P Robotic L TKA W/screw removal 09-18-19 Start: 10-02-2023 End: 10-02-2023 Home visit [facility] Comment on above: [id number] L TKA Start: 09-29-2023 End: 09-29-2023 Home visit 09/29/2023 10:00 AM EDT Home Care Visit [facility] [address] [place] [address] Rubi Wilson FINANCIAL OPERATIONS CONSULTANT [address] [place] [address] [facility] Comment on above: [id number] Start: 09-27-2023 End: 09-27-2023 Home visit [facility] Comment on above: [id number] L TKA Start: 09-25-2023 End: 09-25-2023 Home visit [facility] Comment on above: [id number] L TKA Remove wound vac/ apply dressing [id number] Start: 09-20-2023 End: 09-20-2023 Patient encounter procedure 09/20/2023 4:00 AM EDT Appointment [facility] [address] [place] [address] CM JV INMAN, [id number] 09/18, M17.32 s/p TKA 09/19/2023 [facility] Comment on above: [id number] CM JV INMAN [id number] 09/18, M17.32 s/p TKA 09/19/2023 Start: 09-18-2023 End: 09-18-2023 Admission to same day surgery center 09/18/2023 3:25 PM EDT - 09/18/2023 6:17 PM EDT Surgery [facility] [address] [place] [address] Heath Delgado MD [address] [address] ROBOTIC ASSISTED TOTAL KNEE ARTHROPLASTY [facility] Comment on above: ROBOTIC ASSISTED TOTAL KNEE ARTHROPLASTY Start: 09-18-2023 End: 09-18-2023 Arthrp kne condyle&platu medial&lat compartments ROBOTIC ASSISTED TOTAL KNEE ARTHROPLASTY Post-traumatic osteoarthritis of left knee Chronic pain of left knee 09/18/2023 3:25 PM EDT ME OR Start: 09-18-2023 Subsequent hospital visit by physician 09/18/2023 3:25 PM EDT Hospital Encounter [facility] [address] [place] [address] Heath Delgado MD [address] [address] Post-traumatic osteoarthritis of left knee [M17.32] [facility] Comment on above: Post-traumatic osteoarthritis of left kn ee [M17.32] Start: 09-11-2023 End: 09-11-2023 Nursing evaluation of patient and report 09/11/2023 11:20 AM EDT Nurse Visit Cardiology [address] [place] [id number] Wstr, Nurse Card Admin [facility] [address] [place] [address] MONROY (dyspnea on exertion) [R06.09] Cardiology Comment on above: MONROY (dyspnea on exertion) [R06.09] Start: 09-11-2023 End: 09-11-2023 Patient encounter procedure Nuclear Medicine Comment on above: MONROY (dyspnea on exertion) [R06.09] Start: 08-30-2023 End: 08-30-2023 Patient encounter procedure 08/30/2023 1:00 PM EDT Appointment Radiology [address] [place] [address], left knee Radiology Comment on above: SUN CT, left knee Start: 08-29-2023 End: 11-28-2023 Bacteria identified in Urine by Culture URINE CULTURE Microbiology Routine Pre-operative examination Expected: 08/29/2023, Expires: 11/28/2023 [facility] Comment on above: Expected: 08/29/2023, Expires: Start: 08-29-2023 End: 11-28-2023 CBC W Auto Differential panel - Blood COMPLETE BLOOD COUNT AND DIFFERENTIAL Lab Routine Pre-operative examination Expected: 08/29/2023, Expires: 11/28/2023 [facility] Work Phone: Comment on above: Expected: 08/29/2023, Expires: Start: 08-28-2023 End: 08-28-2023 Anesthesia consultation 08/28/2023 9:20 AM EDT PAT Pre Anesthesia [address] [place] [address] 1, [facility] [place] [address] [place] [address] ROBOTIC ASSISTED TOTAL KNEE ARTHROPLASTY [83322] - Knee - Left Pre Anesthesia Comment on above: ROBOTIC ASSISTED TOTAL KNEE ARTHROPLASTY [00940] - Knee - Left Start: 08-24-2023 ANNUAL PCP TEAM CHRONIC DISEASE VISIT ANNUAL PCP TEAM CHRONIC DISEASE VISIT [facility] Start: 07-10-2023 Prostate specific antigen measurement Prostate Cancer Screening Discussion [facility] Start: 06-12-2023 [facility] Start: 06-12-[address] [facility] [facility] Start: 06-12-[address] [facility] Start: 04-10-2023 [facility] Start: 03-20-2023 Behavioral Health Screening Behavioral Health Screening [facility] Start: 03-20-2023 Depression Assessment Depression Assessment [facility] Start: 02-10-2023 End: 11-11-2023 25-hydroxyvitamin D3 [Mass/volume] in Serum or Plasma VITAMIN D 25 HYDROXY Lab Routine Vitamin D deficiency Expected: 02/10/2023, Expires: 11/11/2023 [facility] Work Phone: Comment on above: Expected: 02/10/2023, Expires: 4 Start: 02-10-2023 End: 04-12-2023 ALBUMIN/CREAT RATIO RND UR ALBUMIN/CREAT RATIO RND UR Lab Routine Other proteinuria Expected: 02/10/2023, Expires: 04/12/2023 [facility] Work Phone: Comment on above: Expected: 02/10/2023, Expires: Start: 02-10-2023 End: 11-11-2023 CBC W Auto Differential panel - Blood CBC + DIFF Lab Routine Anemia of renal disease Expected: 02/10/2023, Expires: 11/11/2023 [facility] Work Phone: Comment on above: Expected: 02/10/2023, Expires: Start: 02-10-2023 End: 11-11-2023 Magnesium [Mass/volume] in Serum or Plasma MAGNESIUM BLD Lab Routine Stage 1 chronic kidney disease Expected: 02/10/2023, Expires: 11/11/2023 [facility] Work Phone: Comment on above: Expected: 02/10/2023, Expires: Start: 02-10-2023 End: 11-11-2023 Parathyrin.intact [Mass/volume] in Serum or Plasma PTH INTACT BLD Lab Routine Stage 1 chronic kidney disease Expected: 02/10/2023, Expires: 11/11/2023 [facility] Work Phone: Comment on above: Expected: 02/10/2023, Expires: Start: 02-10-2023 End: 11-11-2023 Renal function 2000 panel - Serum or Plasma RENAL FUNCTION PANEL Lab Routine Stage 1 chronic kidney disease Expected: 02/10/2023, Expires: 11/11/2023 [facility] Work Phone: Comment on above: Expected: 02/10/2023, Expires: Start: 02-10-2023 End: 11-11-2023 Urate [Mass/volume] in Serum or Plasma URIC ACID BLOOD Lab Routine Stage 1 chronic kidney disease Expected: 02/10/2023, Expires: 11/11/2023 [facility] Work Phone: Comment on above: Expected: 02/10/2023, Expires: 4 Start: 02-10-2023 End: 04-12-2023 Urinalysis complete panel - Urine URINALYSIS, WITH MICROSCOPIC Lab Routine Stage 1 chronic kidney disease Expected: 02/10/2023, Expires: 04/12/2023 [facility] [place] Work Phone: Comment on above: Expected: 02/10/2023, Expires: 4 Start: 02-03-2023 End: 05-05-2023 ALDOSTERONE/DIRECT RENIN RATIO ALDOSTERONE/DIRECT RENIN RATIO Lab Routine Hypertension, unspecified type Expected: 02/03/2023, Expires: 05/05/2023 [facility] Work Phone: Comment on above: Expected: 02/03/2023, Expires: 4 Start: 02-03-2023 End: 05-05-2023 METANEPHRINES, FREE PLASMA METANEPHRINES, FREE PLASMA Lab Routine Hypertension, unspecified type Expected: 02/03/2023, Expires: 05/05/2023 [facility] Work Phone: Comment on above: Expected: 02/03/2023, Expires: 4 Start: 12-12-2022 End: 02-11-2023 25-hydroxyvitamin D3 [Mass/volume] in Serum or Plasma [facility] Work Phone: Comment on above: Expected: 12/12/2022, Expires: 3 Start: 12-12-2022 End: 02-11-2023 ALBUMIN/CREAT RATIO RND UR ALBUMIN/CREAT RATIO RND UR Lab Routine Stage 1 chronic kidney disease Other proteinuria Essential hypertension Expected: 12/12/2022, Expires: 02/11/2023 [facility] Work Phone: Comment on above: Expected: 12/12/2022, Expires: 3 Start: 12-12-2022 End: 02-11-2023 Parathyrin.intact [Mass/volume] in Serum or Plasma [facility] Work Phone: Comment on above: Expected: 12/12/2022, Expires: 3 Start: 12-12-2022 End: 02-11-2023 Urinalysis complete panel - Urine URINALYSIS, WITH MICROSCOPIC Lab Routine Stage 1 chronic kidney disease Other proteinuria Essential hypertension Expected: 12/12/2022, Expires: 02/11/2023 [facility] Work Phone: Comment on above: Expected: 12/12/2022, Expires: 3 Start: 12-10-2022 ANNUAL PCP TEAM CHRONIC DISEASE VISIT ANNUAL PCP TEAM CHRONIC DISEASE VISIT [facility] Start: 11-26-2022 ANNUAL PCP TEAM CHRONIC DISEASE VISIT ANNUAL PCP TEAM CHRONIC DISEASE VISIT [facility] Start: 11-26-2022 COVID-19 VACCINE (#1) COVID-19 VACCINE (#1) [facility] Comment on above: Postponed from 01/08/1969 (Declined at t his time) Start: 11-26-2022 HEPATITIS B (1 of 3 - 3-dose series) HEPATITIS B (1 of 3 - 3-dose series) [facility] Comment on above: Postponed from 1968 (Declined at t his time) Start: 11-26-2022 PNEUMOCOCCAL (1 - PCV) PNEUMOCOCCAL (1 - PCV) [facility] Comment on above: Postponed from 1974 (Declined at t his time) Start: 11-26-2022 SHINGRIX VACCINE (1 of 2) SHINGRIX VACCINE (1 of 2) [facility] Comment on above: Postponed from 2018 (Declined at t his time) Start: 11-26-2022 Urine microalbumin profile DTAP,TDAP,TD (1 - Tdap) [facility] Comment on above: Postponed from 07/10/1987 (Declined at t his time) Start: 11-18-2022 Covid-19 Vaccine ( season) Covid-19 Vaccine ( season) [facility] Start: 11-18-2022 Influenza vaccination [facility] Start: 09-16-2022 Influenza vaccination INFLUENZA (#1) [facility] Comment on above: Postponed from 11/18/2021 (Declined at t his time) Start: 08-23-2022 End: 10-23-2022 Comprehensive metabolic 2000 panel - Serum or Plasma COMP METABOLIC PANEL Lab Routine Uncontrolled hypertension Expected: 08/23/2022, Expires: 10/23/2022 [facility] Work Phone: Comment on above: Expected: 08/23/2022, Expires: 3 Start: 08-23-2022 End: 10-23-2022 Thyrotropin [Units/volume] in Serum or Plasma TSH BLD Lab Routine Uncontrolled hypertension Expected: 08/23/2022, Expires: 10/23/2022 [facility] Work Phone: Comment on above: Expected: 08/23/2022, Expires: Start: 08-23-2022 End: 10-23-2022 Urinalysis complete panel - Urine URINALYSIS WITH MICROSCOPIC, REFLEX CULTURE Lab Routine Right flank pain Expected: 08/23/2022, Expires: 10/23/2022 [facility] Work Phone: Comment on above: Expected: 08/23/2022, Expires: 3 Start: 06-02-2022 End: 08-02-2022 C reactive protein [Mass/volume] in Serum or Plasma C-REACTIVE PROTEIN (CRP) Lab Routine Status post total right knee replacement Expected: 06/02/2022, Expires: 08/02/2022 [facility] Work Phone: Comment on above: Expected: 06/02/2022, Expires: 3 Start: 06-02-2022 End: 08-02-2022 Erythrocyte sedimentation rate SED RATE WESTERGREN Lab Routine Status post total right knee replacement Expected: 06/02/2022, Expires: 08/02/2022 [facility] Work Phone: Comment on above: Expected: 06/02/2022, Expires: 3 Start: 04-29-2022 End: 06-29-2022 Lipid 1996 panel - Serum or Plasma LIPID PANEL BASIC Lab Routine Hyperlipidemia, mixed Expected: 04/29/2022, Expires: 06/29/2022 [facility] Work Phone: Comment on above: Expected: 04/29/2022, Expires: 3 Start: 03-20-2022 DEPRESSION ASSESSMENT DEPRESSION ASSESSMENT [facility] Start: 12-14-2021 End: 02-13-2022 Lipid 1996 panel - Serum or Plasma LIPID PANEL BASIC Lab Routine Essential hypertension Expected: 12/14/2021, Expires: 02/13/2022 [facility] Work Phone: Comment on above: Expected: 12/14/2021, Expires: 2 Start: 12-14-2021 End: 02-13-2022 SCHEDULE LAB TESTING SCHEDULE LAB TESTING Lab Routine Expected: 12/14/2021, Expires: 02/13/2022 [facility] Work Phone: Comment on above: Expected: 12/14/2021, Expires: 2 Start: 12-10-2021 End: 02-09-2022 Urinalysis complete panel - Urine UA WITH CULTURE IF INDICATED Lab Routine Urinary frequency Expected: 12/10/2021, Expires: 02/09/2022 [facility] Work Phone: Comment on above: Expected: 12/10/2021, Expires: 2 Start: 11-18-2021 Influenza vaccination [facility] Start: 11-15-2021 End: 01-15-2022 CONFIRM BLOOD TYPE [facility] Work Phone: Comment on above: Expected: 11/15/2021, Expires: 2 Start: 11-15-2021 End: 01-15-2022 Hemoglobin A1c in Blood [facility] Work Phone: Comment on above: Expected: 11/15/2021, Expires: 2 Start: 11-15-2021 End: 01-15-2022 TYPE AND SCREEN,30 DAY [facility] Work Phone: Comment on above: Expected: 11/15/2021, Expires: 2 Start: 03-20-2021 DEPRESSION ASSESSMENT DEPRESSION ASSESSMENT [facility] Start: 09-30-2018 DIABETES SCREEN DIABETES SCREEN [facility] Start: 2018 SHINGRIX VACCINE (1 of 2) SHINGRIX VACCINE (1 of 2) [facility] Start: 2013 COLOGUARD (FIT-DNA) COLOGUARD (FIT-DNA) [facility] Start: [address] COLONOGRAPHY [facility] Start: 2013 FECAL OCCULT BLOOD FECAL OCCULT BLOOD [facility] Start: 2013 Screening for malignant neoplasm of colon [facility] Start: 2013 SIGMOIDOSCOPY SIGMOIDOSCOPY [facility] Start: 07-10-2003 LIPID SCREEN LIPID SCREEN [facility] Start: 07-10-1987 Hepatitis B Vaccine (1 of 3 - 19+ 3-dose series) Hepatitis B Vaccine (1 of 3 - 19+ 3-dose series) [facility] Start: 07-10-1987 Urine microalbumin profile [facility] Start: 1986 ANNUAL PCP TEAM CHRONIC DISEASE VISIT ANNUAL PCP TEAM CHRONIC DISEASE VISIT [facility] Start: 1986 Anxiety Screening Anxiety Screening [facility] Start: 1986 BP CONTROLLED (<130/80) BP CONTROLLED (<130/80) [facility] in Start: 1986 Depression Screening Depression Screening [facility] Start: 1986 HEPATITIS C SCREENING HEPATITIS C SCREENING [facility] Start: 1986 Hepatitis C screening Hepatitis C Screening [facility] Start: 1986 HIV SCREENING HIV SCREENING [facility] Start: 1986 HIV screening HIV Screening [facility] Start: 1980 Adult depression screening assessment DEPRESSION SCREENING [facility] Start: 1974 PNEUMOCOCCAL (1 - PCV) PNEUMOCOCCAL (1 - PCV) [facility] Start: 1974 [facility] Start: 1973 COVID-19 VACCINE (#1) COVID-19 VACCINE (#1) [facility] Start: 01-08-1969 COVID-19 VACCINE (#1) COVID-19 VACCINE (#1) [facility] Start: 1968 HEPATITIS B (1 of 3 - 3-dose series) HEPATITIS B (1 of 3 - 3-dose series) [facility] Start: 1968 Hepatitis B Vaccine (1 of 3 - 3-dose series) Hepatitis B Vaccine (1 of 3 - 3-dose series) [facility] Anion gap measurement [facility] Arthrp kne condyle&p latu medial&lat compartments ROBOTIC ASSISTED TOTAL KNEE ARTHROPLASTY Post-traumatic osteoarthritis of left knee Chronic pain of left knee [facility] Bacteria identified in Body fluid by Culture BODY FLUID CULTURE AND GRAM STAIN Microbiology Routine Pain due to total left knee replacement, initial encounter ([facility]) 11/13/2023 11:50 AM EDT [facility] Work Phone: Bacteria identified in Body fluid by Culture BODY FLUID CULTURE AND GRAM STAIN Microbiology Routine Status post total left knee replacement Ordered: 11/28/2023 [facility] Comment on above: Ordered: 11/28/2023 BUN/Creatinine ratio [facility] Calcium [Mass/volume ] in Serum or Plasma [facility] Carbon dioxide, tota l [Moles/volume] in Serum or Plasma [facility] Chloride [Moles/volu me] in Serum or Plasma [facility] Creatinine [Moles/vo lume] in Serum or Plasma [facility] End: 06-30-2024 CT Knee - left WO contrast CT KNEE WO IVCON LEFT Radiology Routine Chronic pain of left knee 1 Occurrences starting 06/01/2023 until 06/30/2024 [facility] Work Phone: Comment on above: 1 Occurrences starting 06/01/2023 until 06/30/2024 CT Knee - left WO contrast CT KNEE WO IVCON LEFT Radiology Routine Chronic pain of left knee 08/30/2023 1:40 PM EDT [facility] Work Phone: Ct lower extremity w /o contrast material CT KNEE WO IVCON RT Radiology Routine Post-traumatic osteoarthritis of right knee Ordered: 11/01/2021 [facility] Work Phone: Comment on above: Ordered: 11/01/2021 End: 11-15-2022 ECG COMPLETE ECG COMPLETE ECG Routine Pre-operative examination 1 Occurrences starting 11/15/2021 until 11/15/2022 [facility] Work Phone: Comment on above: 1 Occurrences starting 11/15/2021 until 11/15/2022 ECG COMPLETE ECG COMPLETE ECG 11/15/2021 2:26 PM EDT [facility] End: 08-24-2023 Echocardiography ECHO Cardiology Routine Uncontrolled hypertension 1 Occurrences starting 08/23/2022 until 08/24/2023 [facility] Work Phone: Comment on above: 1 Occurrences starting 08/23/2022 until 08/24/2023 Erythrocyte mean corpuscular volume determination [facility] Glucose [Mass/volume ] in Serum or Plasma [facility] End: 12-27-2024 Guidance for arthrocentesis of Major joint US ASP/INJ KNEE JT/BURSA LEFT Radiology Routine Status post total left knee replacement 1 Occurrences starting 11/28/2023 until 12/27/2024 [facility] Comment on above: 1 Occurrences starting 11/28/2023 until 12/27/2024 End: 12-27-2024 Guidance for injection of Knee IMAGING GUIDED ASP/INJ KNEE JT/BURSA LEFT Radiology Routine Status post total left knee replacement 1 Occurrences starting 11/29/2023 until 12/27/2024 [facility] Work Phone: Comment on above: 1 Occurrences starting 11/29/2023 until 12/27/2024 Hematocrit [Volume Fraction] of Blood [facility] Hemoglobin [Mass/vol ume] in Blood [facility] Influenza virus A an d B RNA and SARS-CoV-2 (COVID-19) N gene panel - Respiratory specimen by SALLY with probe detection COVID WITH FLUA+B, ROUTINE Microbiology Routine Acute cough 07/27/2022 9:23 AM EDT [facility] Work Phone: Leukocytes [#/volume ] in Blood [facility] Mean corpuscular hemoglobin concentration determination [facility] Mean corpuscular hemoglobin determination [facility] Measurement of renal function [facility] METANEPHRINES 24H UR METANEPHRIN ES 24H UR Lab Routine Hypertension, unspecified type Ordered: 02/03/2023 [facility] Work Phone: Comment on above: Ordered: 02/03/2023 Microscopic urinalysis [facility] End: 03-04-2024 NM CARDIAC PERF STRESS/PHARM NM CARDIAC PERF STRESS/PHARM Radiology Routine MONROY (dyspnea on exertion) 1 Occurrences starting 02/03/2023 until 03/04/2024 [facility] Work Phone: Comment on above: 1 Occurrences starting 02/03/2023 until 03/04/2024 Organism count, microscopic method [facility] Patient Education [facility] Work Phone: Patient referral [facility] Work Phone: Platelets [#/volume] in Blood [facility] End: 11-20-2023 Polysomnogram POLYSOMNOGRAM (PSG) Procedures Routine Uncontrolled hypertension 1 Occurrences starting 11/20/2022 until 11/20/2023 [facility] Work Phone: Comment on above: 1 Occurrences starting 11/20/2022 until 11/20/2023 End: 01-22-2024 Polysomnogram POLYSOMNOGRAM (PSG) Procedures Routine Uncontrolled hypertension At risk for sleep apnea Headache upon awakening 1 Occurrences starting 01/22/2023 until 01/22/2024 [facility] Work Phone: Comment on above: 1 Occurrences starting 01/22/2023 until 01/22/2024 POST VOID RESIDUAL POST VOID RES IDUAL Procedures Routine Left flank pain Bilateral renal stones Ordered: 11/04/2022 [facility] Work Phone: Comment on above: Ordered: 11/04/2022 Potassium [Moles/vol ume] in Serum or Plasma [facility] PT PLAN OF CARE CERTIFICATION PT PLAN OF CARE CERTIFICATION Procedures Routine Status post knee replacement, unspecified laterality Ordered: 12/29/2021 [facility] Comment on above: Ordered: 12/29/[address] [facility] Red cell distributio n width determination [facility] Sodium [Moles/volume ] in Serum or Plasma [facility] STAPHYLOCOCCUS AUREU S & MRSA SCREEN, PCR, NASAL STAPHYLOCOCCUS AUREUS & MRSA SCREEN, PCR, NASAL Lab Routine Pre-operative examination Ordered: 08/28/2023 [facility] Work Phone: Comment on above: Ordered: 08/28/2023 SYNOVIAL FLUID, ROUTINE SYNOVIAL FLUID, ROUTINE Lab Routine Status post total left knee replacement Ordered: 11/28/2023 [facility] Comment on above: Ordered: 11/28/2023 Urea nitrogen [Mass/volume] in Serum or Plasma [facility] Urine microscopy: epithelial cells [facility] Urine microscopy: re d cells [facility] US KIDNEY/BLADDER US KIDNEY/BLAD KARTHIKEYAN Radiology Routine Left flank pain Bilateral renal stones Ordered: 11/04/2022 [facility] Work Phone: Comment on above: Ordered: 11/04/2022 End: 01-21-2024 US KIDNEY/BLADDER US KIDNEY/BLADDER Radiology Routine Renal cyst 1 Occurrences starting 12/22/2022 until 01/21/2024 [facility] Work Phone: Comment on above: 1 Occurrences starting 12/22/2022 until 01/21/2024 End: 11-11-2023 US RENAL ARTERY [facility] US [facility]NAL [facility] Vascular Lab Routine Essential hypertension Renal artery stenosis (HCC) 1 Occurrences starting 11/10/2022 until 11/11/2023 [facility] Work Phone: Comment on above: 1 Occurrences starting 11/10/2022 until 11/11/2023 VMA 24 HR URINE VMA 24 HR URINE Lab Routine Hypertension, unspecified type Ordered: 02/03/2023 [facility] Work Phone: Comment on above: Ordered: 02/03/2023 White blood cell count [facility] End: 08-21-2023 XR HIP GENERAL 3V PELV/AP/LAT RIGHT XR HIP GENERAL 3V PELV/AP/LAT RIGHT Radiology Routine Pain of right hip 1 Occurrences starting 07/22/2022 until 08/21/2023 [facility] Work Phone: Comment on above: 1 Occurrences starting 07/22/2022 until 08/21/2023 End: 12-27-2024 XR Knee - left 4 Views XR KNEE GENERAL 4V AP BOTH/PA BOTH/LAT/MERC LEFT Radiology Routine Status post total left knee replacement 1 Occurrences starting 11/28/2023 until 12/27/2024 [facility] Work Phone: Comment on above: 1 Occurrences starting 11/28/2023 until 12/27/2024 XR Knee - left 4 Views XR KNEE G ENERAL 4V AP BOTH/PA BOTH/LAT/MERC LEFT Radiology Routine Status post total left knee replacement 11/28/2023 1:13 PM EDT [facility] End: 11-01-2024 XR Knee AP and Lateral and Merchants XR KNEE POST OP 3V AP/LAT/MERCHANT LEFT Radiology Routine Chronic pain of left knee 1 Occurrences starting 10/02/2023 until 11/01/2024 [facility] Work Phone: Comment on above: 1 Occurrences starting 10/02/2023 until 11/01/2024 End: 11-26-2022 XR KNEE GENERAL 4V AP BOTH/PA BOTH/LAT/MERC RIGHT XR KNEE GENERAL 4V AP BOTH/PA BOTH/LAT/MERC RIGHT Radiology Routine Right knee pain, unspecified chronicity 1 Occurrences starting 10/27/2021 until 11/26/2022 [facility] Work Phone: Comment on above: 1 Occurrences starting 10/27/2021 until 11/26/2022 End: 01-08-2023 XR KNEE GENERAL 4V AP BOTH/PA BOTH/LAT/MERC RIGHT XR KNEE GENERAL 4V AP BOTH/PA BOTH/LAT/MERC RIGHT Radiology Routine Post-traumatic osteoarthritis of right knee Status post total right knee replacement 1 Occurrences starting 12/09/2021 until 01/08/2023 [facility] Work Phone: Comment on above: 1 Occurrences starting 12/09/2021 until 01/08/2023 [facility] Payers Date Payer Category Payer Self-pay [id number] 2022 Private Health Insurance [facility] [id number] 2022-Present [phone] [address] [address] [place] [address] HMO [id number] 2013 Unknown [id number] 1970 Unknown [id number] Unknown [facility] [place] [id number] Unknown R GHANSHYAM [id number] Unknown [id number] Unknown [id number] Social History Date Type Detail Facility Start: 06-26-2021 End: 06-12-2023 Tobacco smoking status NHIS Unknown if ever smoked [facility] Start: 11-10-2014 Rare [facility] Start: 12-07-2019 None [facility] Start: 11-10-2014 Spouse/ Signif icant Other [facility] Start: 03-27-2019 Cigarettes [facility] Start: 1970 Sex Assigned At Male [facility] Start: 10-20-1988 End: 07-10-2023 Tobacco smoking status NHIS Smokes tobacco daily [facility] Start: 10-20-1988 History of tobacco use Cigarette Smo ker [facility] Work Phone: Start: 10-20-1988 History of tobacco use Cigar Smoker [facility] Work Phone: Start: 08-13-2021 End: 07-27-2022 Alcohol intake Current non-drinker of alcohol (finding) [facility] Start: 10-20-2016 End: 11-15-2021 Tobacco Comment 1 ppd since 2011 [facility] Start: 1970 Sex Assigned At Not on file [facility] Start: 08-03-2021 End: 02-21-2022 Exposure to SARS-CoV-2 (event) Not sure [facility] Start: 10-20-2016 End: 08-23-2022 Cigarettes smoked current (pack per day) - Reported 0.5 [facility] Work Phone: Start: 10-20-2016 End: 07-10-2023 Tobacco use and exposure Smokeless tobacco non-user [facility] Work Phone: Start: 09-01-2022 History SDOH Financial 5 [facility] Start: 09-01-2022 History SDOH Food Worry 1 [facility] Start: 09-01-2022 History SDOH Transpo rt Med 2 [facility] Start: 08-23-2022 End: 08-31-2022 Tobacco use panel [facility] Work Phone: How hard is it for y ou to pay for the very basics like food, housing, medical care, and heating Not hard at all [facility] Work Phone: (I/We) worried gerardo er (my/our) food would run out before (I/we) got money to buy more. Never true [facility] Work Phone: In the past 12 month s, was there a time when you were not able to pay the mortgage or rent on time? No [facility] Work Phone: Start: 11-04-2022 End: 08-28-2023 Alcohol intake Ex-drinker (finding) [facility] Start: 04-20-2023 Tobacco Comment 0.5 ppd since 2011 [facility] Start: 06-28-2024 End: 09-12-2024 Tobacco smoking status NHIS Current Heavy tobacco smoker [facility] Start: 06-28-2024 Sex Male (finding) [facility] Medical Equipment Procedure Code Equipment Code Equipment Origin al Text Equipment Identifier Dates Component Tritan ium 35mm Metal 10mm Patellar Asymmetric Knee - [id number] Start: 12-01-2021 Component Triath ethan 5 Pa Femoral Cruciate Retain Bead Knee Right - [id number] Start: 12-01-2021 Baseplate Triath ethan Tritanium 5 Tibial Knee - [id number] Start: 12-01-2021 Insert Triathlon 5 11mm Tibial Bearing Condylar Stabilize Sterile Knee - [id number] Start: 12-01-2021 Baseplate Triath derrell 4 Tritanium Tibial Coated Sterile Knee - [id number] Start: 09-18-2023 Insert Triathlon 4 11mm Tibial Bearing Condylar Stabilize Sterile Knee - [id number] Start: 09-18-2023 Component Tritan ium 35mm Metal 10mm Patellar Asymmetric Knee - [id number] Start: 09-18-2023 Component Triath ethan 5 Pa Femoral Cruciate Retain Bead Knee Left - [id number] Start: 09-18-2023 Goals Date Patient Goal Desired Activity /State Personal health goal Personal health goal Mental Status Date Assessment Result Facility 08-18-2022 Cognitive function Level Of Cons ciousness Awake;Alert;Appropriate;Follow s Commands;Responds to vocal stimuli [facility] Work Phone: Clinical Notes 10-01-2015 to 10-15-2024 Note Date & Type Note Facility 10-15-2024 Note HNO ID: [id number] Author: NOAH DE ANDA APRN.CNP Service: ? Author Type: Nurse Practitioner Type: Progress Notes Filed: 10/15/2024 10:22 Note Text: Orthopaedic Office Note: October 15, 2024 10:16 AM Ruddy Ruvalcaba 54 year old History: Justice is a very pleasant 54 year old male who presents today for left knee pain. He is well known to me having undergone L TKA with Dr. Delgado last September. He did have a slow recovery and issues with RSD post-operatively. He reports about 3-4 weeks ago he took a misstep and developed a sudden increase in pain. He noted increase in swelling and shortly after. He now reports with occasional twisting/knee bending episodes were he will get a sharp pain that comes and goes. He denies any falls or any trauma. He reports when this occurs he also feels the knee is going to give out. He is here for x-rays and repeat evaluation. Subjective: Left knee pain Updated ROS: No changes Updated Exam: Left Lower Extremity: KNEE EXAM: Left: Incision well healed Range of motion is 0 degrees in extension and 120 degrees of flexion. Pain with ROM: No Effusion: Slight Tender to the palpation of None Pain with patellar compression: No Stability: Anterior/Posterior stable and Varus/Valgus stable Hip Exam: flexion to 100+ degrees, full extension, internal/external rotation adequate and no pain with log roll Neurovascular Status: Sensation Intact and Moves foot and ankle up AND down Updated Imaging: Left total knee arthroplasty in appropriate position without evidence for loosening or osteolysis Assessment and Plan: Pain due to left knee replacement Justice and I discussed his left knee today. X-rays are stable. Physical exam is normal as well. We discussed in certain positions he can pinch the synovium lining of the knee. Signs and symptoms discussed associated with this. I was able to reproduce this in office as well. Recommend RICE/bracing treatment to cool things off as well as anti-inflammatory regimen. I will prescribe a one time prescription only of oxycodone to help him through this. He will update me in 4 weeks time in his progress. All questions answered. Noah De Anda APRN.[facility] Orthopaedic Surgery [facility] 09-17-2024 Note HNO ID: [id number] Author: ROMY GREWAL LPN Service: ? Author Type: LICENSED NURSE Type: Progress Notes Filed: 09/17/2024 10:22 Note Text: ED Follow-Up Note Provider Action / FYI: Call completed by: LUIS Patient seen in ED: In Network ED Contact made with Patient: No, left message. Romy Grewal LPN September 17, 2024 10:22 AM [facility] 09-17-2024 Note Patient Outreach (AG FAMPLE) -- RUDDY RUVALCABA ([id number]) 1970 M Date Time Provider Department 09/17/24 JOSSY NATARAJAN During your visit today, we recorded the following information about you: Romy Grewal LPN 09/17/2024 10:22 AM Signed ED Follow-Up Note Provider Action / FYI: Call completed by: LUIS Patient seen in ED: In Network ED Contact made with Patient: No, left message. Romy Grewal LPN September 17, 2024 10:22 AM Allergies As of Date: 09/17/2024 (No Known Allergies) Date Reviewed: 09/11/2024 Reviewed by: Sammi Arndt RN - Fully Assessed Reason for Visit: ED Follow-up [821] Cmt: [place] [facility] 09/11/2024 and [facility] 09/12/2024 Prescriptions as of 09/17/2024 - oxyCODONE-acetaminophen (PERCOCET) 5-325 mg tablet Take 1 tablet by mouth every 6 hours as needed for pain for up to 7 days. - amitriptyline (ELAVIL) 10 mg tablet Take 1 tablet by mouth daily at bedtime. - tamsulosin (FLOMAX) 0.4 mg Take 1 capsule by mouth once daily for 7 days. - labetalol (TRANDATE) 200 mg tablet Take 1.5 tablets by mouth three times a day. - nabumetone (RELAFEN) 500 mg tablet Take 1 tablet by mouth two times a day. - lisinopril (ZESTRIL) 40 mg tablet Take 1 tablet by mouth two times a day. - acetaminophen (TYLENOL) 500 mg tablet Take 2 tablets by mouth every 8 hours as needed for pain. - erythromycin (ROMYCIN) 5 mg/gram (0.5 %) ophthalmic ointment Use 1 Drop in the right eye daily at bedtime. Patient should start on September 22, 2023. Problem List As Of Date 09/17/2024 Noted Resolved RSD (reflex sympathetic dystrophy) [G90.50] [...] 12/29/2021 Nicotine use disorder, F17.2 [F17.200] 04/01/2022 Hypertensive urgency [I16.0] 08/31/2022 Headache [R51.9] 08/31/2022 Mixed hyperlipidemia [E78.2] 09/01/2022 Left flank pain [R10.9] 11/17/2022 Hypertension, essential [I10] 07/16/2023 Left knee pain [M25.562] 07/16/2023 Left hamstring muscle strain [S76.312A] 07/16/2023 Left leg pain [M79.605] 07/16/2023 MONROY (dyspnea on exertion) [R06.09] 08/28/2023 S/P total knee arthroplasty, left [Z96.652] 09/19/2023 Post-traumatic osteoarthritis of left knee [M17*11/08/2023 Encounter Status:Closed by ROMY GREWAL on 09/17/24 [facility] 09-12-[address] [facility] 09-12-2024 Discharge summary Note Date/Time September 12, 2024 4:53pm [facility] Medical Records Department [address] [place] [address] Emergency Department Summary 09/12/24 MR#: [id number] Acct: [id number] Name: RUDDY RUVALCABA Rep #:[id number] : 1970 54 From: Felton Torres MD PCP: Jossy Natarajan, HOME CARE SPECIALIST-C Status:REG E R Location: ED HPI HPI - GI History of Present Illness Chief Complaint: GI Bleed Narrative Narrative: 54-year-old male past medical history of hypertension, does not take blood thinners, presents with rectal bleeding that has had for the last 2 to 3 days. He states his symptoms started a few days ago. 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 It is continued over the last few days. He states that yesterdayhe was seen at [place] emergency department where they wanted to transfer him to [facility] for inpatient colonoscopy. He states he had a CT of the abdomen and pelvis which did not show anything acute, and when the physician performed rectal examination/anoscopy, although he had a hemorrhoid, there was bleeding from higher up on the scope. He states he is continuing to have rectal bleedingthat is wetting his undergarment, and was on the chair when he was signing in. He also has it with bowel movements. He states he feels lightheaded as well. He denies any chest pain or shortness of breath. Denies other bleeding diathesis. [facility] Medical History Diverticulitis Hypertension Anxiety and depression Osteoarthritis Nephrolithiasis Home Medications ?Medication ?Instructions ?Recorded ?Last Taken ?Type amoxicillin 875 mg-potassium 1 tab PO Q8H #30 tabs 12/09 Unknown Rx clavulanate 125 mg tablet Held on 12/24/22. Instructions: Pt has been DC'd ondansetron 4 mg disintegrating 4 mg PO Q8H PRN PRN Na usea #10 tabs 06/26/21 Unknown Rx tablet cyclobenzaprine 10 mg tablet 10 mg PO TID PRN Muscle S pasm #20 10/22/22 Unknown Rx Held on 12/24/22. TABLETS Instructions: Pt has been DC'd hydrocodone-acetaminophen 5-325mg 1 tab PO Q4H PRN PRN Pain 2 days 10/22/22 Unknown Rx 5mg-325mg #10 TABLETS Held on 12/24/22. Instructions: Pt has been DC'd amlodipine 10 mg tablet 10 mg PO DAILY 12/24/22 Unkn own History chlorthalidone 25 mg tablet 25 mg PO DAILY 12/24/22 Un known History doxycycline hyclate 100 mg capsule 100 mg PO BID #20 c aps 12/24/22 Unknown Rx finasteride 5 mg tablet 5 mg PO DAILY 12/24/22 Unkno wn History hydralazine 50 mg tablet 50 mg PO TID 12/24/22 Unknow n History labetalol 200 mg tablet 300 mg PO BID 12/24/22 Unkno wn History lisinopril 10 mg tablet 40 mg PO BID 12/24/22 Unknow n History hydrocodone-acetaminophen 5-325mg 1 tab PO Q6H PRN channing n 3 days #12 04/10/23 Unknown Rx 5mg-325mg tabs naproxen 500 mg tablet 500 mg PO BID #14 tabs 06/28 Unknown Rx oxycodone-acetaminophen 5 mg-325 1 tab PO Q6H PRN PRN Pain 3 days 06/28/24 Unknown Rx mg tablet #12 TABLETS Allergy/AdvReac Type Severity Reaction Status Date / Time No Known Allergies Allergy Verified 06/28/24 13:45 Surgical History History of nasal surgery Hx of arthroscopic knee surgery History of repair of ACL Hx of total knee replacement Social History household members: spouse Smoking Status: Heavy Smoker (>10/day) ROS ROS ED ROS Narrative Review of systems positive for rectal bleeding and lightheadedness, no chest pain or shortness of breath, developed abdominal pain over the last 24 hours. No nausea or vomiting. No other bleeding. EXAM Physical Exam Narrative Exam Narrative: Afebrile. Vital signs noted. Nontoxic-appearing. Cardiovascular examination reveals a regular rate and rhythm. Lungs are clear to auscultation bilaterally. Abdomen is soft and minimally tender diffusely with positive bowel sounds. Neurological examination nonfocal nonlateralizing. No central cyanosis. No noted pallor of skin. Const Vital Signs: 09/12/24 13:57 09/12/24 16:20 09/12/24 16:44 Temperature 96.4 F L Temperature Source Temporal Pulse Rate 81 70 Pulse Rate [Lying] 71 Pulse Rate [Sitting (for 1 minute prior to obtaining)] 77 Pulse Rate [Standing (for 1 minute prior to obtaining)] 79 Respiratory Rate 20 H 16 Blood Pressure 221/127 H 184/154 H Blood Pressure [Lying] 189/97 H Blood Pressure [Sitting (for 1 minute prior to obtaining)] 194/108 H Blood Pressure [Standing (for 1 minute prior to obtaining)] 169/99 H Blood Pressure Mean 158 164 Blood Pressure Mean [Lying] 127 Blood Pressure Mean [Sitting (for 1 minute prior to obtaining)] 136 Blood Pressure Mean [Standing (for 1 minute prior to obtaining)] 122 Pulse Ox 98 95 Oxygen Delivery Method Room Air Room Air MDM MDM MDM Narrative Medical decision making narrative: Differential diagnosis includes but not limited to hemorrhoidal bleed versus AV malformation versus diverticular bleed. I reviewed his prior problem list and he has history of diverticulitis. He has elevated blood pressure currently of 221/127. He will be administered hydralazine. I will repeat his laboratory work and perform anoscopy. I reviewed his CTA from yesterday through [facility]. There was no CTA evidence of active GI bleed, he had sigmoid diverticulosis without acute diverticulitis. Additionally, although he had slightly elevated white count of 11,000, his hemoglobin was normal. I did review his WBC count from today and it was 11.2 with hemoglobin normal at 14.9. Chaperoned rectal examination on visual inspection shows no evidence of acute bleeding. He was not symptomatic with hisorthostatics, and I feel that any drop in his blood pressure could be attributedto the hydralazine he was given. I discussed patient with Dr. Esparza with gastroenterology. He states that the patient can either be admitted and bowel prep for scoping tomorrow versus following up as an outpatient early next week. Through shared decision making, patient prefers discharge and outpatient follow-up. Return instructions to the emergency department were reviewed. I feel his GI bleeding is stable, and that he does not need to sign out AGAINST MEDICAL ADVICE as he has done this yesterday. Review of his BMP shows normal BUN of 14 and creatinine 1.20 so I doubt upper GI bleeding. At this point in time, through shared decision making, patient prefers outpatient follow-up with gastroenterology. I feel his lower GI bleeding is stable and is improving. I did offer to write him for Anusol HC suppositories should this be more of an internal hemorrhoidal bleeding but he declined statinghe would not use them. Return instructions to the emergency department were reviewed. Disposition is discharged home in stable condition. History & Record Review Discussion w/independent historian: Patient Additional record(s) reviewed:: Prior outpatient record and Prior ED visit Lab Data Attestation: I reviewed the patient's lab results. Labs: Laboratory Results - last 24 hr 09/12/24 15:40 WBC 11.2 H RBC 4.90 Hgb 14.9 Hct 42.9 MCV 87.6 MCH 30.4 MCHC 34.7 RDW Std Deviation 41.7 RDW Coeff of Shin 13.0 Plt Count 290 MPV 10.2 Immature Gran % (Auto) 0.400 Neut % (Auto) 72.2 H Lymph % (Auto) 16.5 L Huntington % (Auto) 7.2 Eos % (Auto) 2.8 Baso % (Auto) 0.9 Absolute Neuts (auto) 8.1 H Absolute Lymphs (auto) 1.84 Nucleated RBC % 0 Sodium 139 Potassium 4.7 Chloride 102 Carbon Dioxide 23.5 Anion Gap 13 BUN 14 Creatinine 1.20 Estim Creat Clear Calc 85.55 Est GFR (MDRD) Non-Af 71 BUN/Creatinine Ratio 11.9 Glucose 101 H Calcium 9.7 Management Discussion w/another healthcare provider: Hydrodynamicist (Dr. Esparza, gastroenterology) Discharge Plan Triage Chief Complaint: GI Bleed ED Provider: Felton Torres Dx/Rx/DC Orders Clinical Impression: Hypertension, Rectal bleeding Instructions: ED High Blood Pressure Hypertension, ED Lower GI Bleeding (Stable) Prescriptions: No Action amoxicillin-pot clavulanate 875-125 mg tablet 1 tab PO Q8H Qty: 30 0RF ondansetron 4 mg tablet,disintegrating 4 mg PO Q8H PRN PRN (Reason: Nausea) Qty: 10 0RF cyclobenzaprine [cyclobenzaprine] 10 mg tablet 10 mg PO TID PRN (Reason: Muscle Spasm) Qty: 20 0RF hydrocodone-acetaminophen [hydrocodone-acetaminophen] 5-325 mg tablet 1 tab PO Q4H PRN PRN (Reason: Pain) 2 Days Qty: 10 0RF labetalol 200 mg tablet 300 mg PO BID Patient Comments: TAKE 1 & 1/2 (ONE AND ONE-HALF) TABLETS BY MOUTH TWICE DAILY hydralazine 50 mg tablet 50 mg PO TID Patient Comments: TAKE 1 TABLET BY MOUTH THREE TIMES DAILY finasteride 5 mg tablet 5 mg PO DAILY Patient Comments: Take 1 tablet by mouth once daily. chlorthalidone 25 mg tablet 25 mg PO DAILY Patient Comments: Take 1 tablet by mouth once daily. amlodipine 10 mg tablet 10 mg PO DAILY Patient Comments: Take 1 tablet by mouth once daily. lisinopril 10 mg tablet 40 mg PO BID doxycycline hyclate 100 mg capsule 100 mg PO BID Qty: 20 0RF hydrocodone-acetaminophen 5-325 mg tablet 1 tab PO Q6H PRN (Reason: pain) 3 Days Qty: 12 0RF oxycodone-acetaminophen 5-325 mg tablet 1 tab PO Q6H PRN PRN (Reason: Pain) 3 Days Qty: 12 0RF naproxen 500 mg tablet 500 mg PO BID Qty: 14 0RF Primary Care Provider: Jossy Natarajan NP Referrals: Darrell Esparza DO [Med Staff - Active Staff] - 3-5 Days Jossy Natarajan NP, HOME CARE SPECIALIST-C [Primary Care Provider] - Activity Restrictions/Additional Instructions: Your blood count is stable. Follow-up with Dr. Esparza with gastroenterology within the next few days. Call for an appointment tomorrow. Return to the emergency department with increased rectal bleeding, new or worsening symptoms. Print Language: Maori Disposition Disposition: Home, Self Care What to do if you have Problems For any increased pain, shortness of breath, bleeding, nausea or vomiting, chestpain, or any unexpected problems, contact your Primary Care Provider. Call [facility] ([phone]) or report to the closest Emergency Room. Call 911 if necessary. 09/12/24 [id number] <Electronically signed by Felton Torres MD> Cosigner Signature (if applicable): CC: HOME CARE SPECIALIST-C Jossy Natarajan ~ Signed [facility] Work Phone: [phone]) 593-755704-28-2025 NoteHNO ID: [id number] Author: JOSSY NATARAJAN APRN.[facility] Service: ? Author Type: Nurse Practitioner Type: Progress Notes Filed: 07/18/2024 12:52 Note Text: CHIEF COMPLAINT: Ruddy is a 54-year-old male with a history of HTN and recurrent nephrolithiasis, presenting for follow-up after a recent ED visit for bilateral flank pain. I reviewed past medical, surgical, social, and family histories today and updated chart. Allergies, chronic medications, and supplements were also reviewed. Recording using [employer] software for draft documentation of the visit was discussed with the patient/authorized title insurance sales representative; all questions welcomed and answered. Patient/authorized title insurance sales representative agreed to proceed Nephrolithiasis: - Recent ED visit for bilateral flank pain; passed one stone during the visit. - Persistent bilateral flank pain; no current groin pain. - Unable to see Dr. Mortensen until October 01; on the cancellation list. - Scheduled to see pain management on August 08 for RSD. - Previously had stones that required removal. - Denies current nausea; not using Zofran. - Drinking plenty of water; cut out sweet tea and soda. - History of high ibuprofen and Tylenol use. Hypertension: - BP was 240/180 mmHg during recent ED visit; received IV Labetalol. - Currently taking 1.5 tablets of 200 mg medication TID, along with Sennapro. - Recent weight loss of over 10 lbs; current BP is 150 mmHg. Narrative: Patient is a 53-year-old male. He has history of hypertension who is presently on 300 mg of labetalol 3 times a day and 40 mg of lisinopril twice a day who presents with abrupt onset of right flank pain that started last evening. He states he drank a bunch of water. He believes he passed the stone since his pain resolved. Couple hours prior to presentation he developed severe right flank pain again that radiates anteriorly but not down to the groin. He denies dysuria, frequency, urgency or hematuria. He had nausea and 1 episode of vomiting last night. He is nauseous presently. He denies fever, chills night sweats. He was seen in May and blood pressure at that time was elevated. He was treated with IV hydralazine and p.o. clonidine Patient denies chest pain or upper back pain. Patient denies paresthesia, anesthesia or motor weakness upper or lower extremity. Patient states that every time he had a stone he had to have it surgically removed. Prior similar symptoms: Yes (Kidney stone) Medical decision making narrative: Patient with obvious acute intermittent flank pain. Most likely this representsa renal calculus. Also need to entertain possibility of aortic dissection, aortic aneurysm. Will medicate with Zofran for his nausea ketorolac and morphine for his pain. His blood pressure is not improved we will treat his blood pressure. CT of the abdomen pelvis without contrast was ordered since thestory is more consistent with obstructing ureteral stone versus dissection or abdominal aortic aneurysm. He was seen last month for accelerated hypertension. And he was treated at that time with clonidine and IV hydralazine. History AND Record Review Additional record(s) reviewed:: Prior ED visit (Patient was seen in May 2023 for elevated blood pressure by Dr. Miguel Gutierrez.) and Prior labs Lab Data Attestation: I reviewed the patient's lab results. Lab results narrative: CBC is unremarkable basic metabolic panel is unremarkable. UA macro was positive for occult blood and protein. Micro was pending. Labs: Laboratory Results - last 24 hr 06/28/24 06/28/24 14:16 15:15 WBC 9.7 RBC 4.86 Hgb 14.4 Hct 42.0 MCV 86.4 MCH 29.6 MCHC 34.3 RDW Std Deviation 42.5 RDW Coeff of Shin 13.5 Plt Count 315 MPV 10.2 Immature Gran % (Auto) 0.400 Neut % (Auto) 64.9 Lymph % (Auto) 24.2 [place] % (Auto) 6.7 Eos % (Auto) 2.9 Baso % (Auto) 0.9 Absolute Neuts (auto) 6.3 Absolute Lymphs (auto) 2.36 Nucleated RBC % 0 Sodium 140 Potassium 4.4 Chloride 104 Carbon Dioxide 24.2 Anion Gap 11 BUN 20 H Creatinine 1.16 Estim Creat Clear Calc 91.58 Est GFR (MDRD) Non-Af 74 BUN/Creatinine Ratio 17.2 Glucose 126 H Calcium 9.6 Urine Color Yellow Urine Clarity Clear Urine pH 6.0 Ur Specific Mather 1.015 Urine Protein 30 H Urine Glucose (UA) Normal Urine Ketones Negative Urine Occult Blood 150 H Urine Nitrite Negative Urine Bilirubin Negative Urine Urobilinogen Normal Ur Leukocyte Esterase Negative Basic metabolic panel is unremarkable. Glucose is 126. CO2 anion gap is normal. Renal function is normal. Radiography Diagnostic Testing: Clinical Impression(s) from Imaging Studies Abdomen/Pelvis CT 06/28/24 14:35 IMPRESSION: 1. 3 mm calculus of the right UVJ resulting in mild hydroureteronephrosis. 2. Small esophageal hiatal hernia. 3. Hepatomegaly with fatty infiltration. 4. Punctate left nephrolithiasis without hydronephrosis. 5. Umbilical hernia c (more content not included)...[facility] 07-04-2024 NoteHNO ID: [id number] Author: ROMY GREWAL LPN Service: ? Author Type: LICENSED NURSE Type: Progress Notes Filed: 07/04/2024 14:04 Note Text: ED Follow-Up Note Provider Action / FYI: Per pt he is still having pain. However the pain medication is helping. Pt wanted to let Jossy Natarajan CNP know that he can not see Dr. Mortensen (Nephrology) until 10/02/2024. Pt has pending appointment with Jossy Natarajan 07/15/2024. Romy Grewal LPN Call completed by: LUIS Patient seen in ED: Out of Network ED Contact made with Patient: Yes The patient was identified by Name and Date of . Discussed Care with: patient Patient was seen in the Emergency Department (ED) Location: [facility] Date: 06/28/2024 Reason for ED Visit: Kidney stone ED Intervention: Labs CT abd and pelvis without contrast New Medications: Oxycodone-Acetaminophen 5-325 mg 1 tablet by mouth every 6 hours as needed Naproxen 500 mg 1 tablet by mouth twice daily Medication Changes: None Does patient understand medication changes: N/A Can patient afford medication changes: N/A Patient educated on worsening symptoms and when and where to seek additional care: No Patient Education Provided including treatment plan and new orders. Patient provided with appropriate counseling: [facility]04-17-2025 NotePatient Outreach (TJFAMPLEATHA) PEGRUDDY REEDER ([id number]) 1970 M Date Time Provider Department 07/04/24 JOSSY NATARAJAN During your visit today, we recorded the following information about you: Romy Grewal LPN 07/04/2024 2:04 PM Signed ED Follow-Up Note Provider Action / FYI: Per pt he is still having pain. However the pain medication is helping. Pt wanted to let Jossy Natarajan [employer] know that he can not see Dr. Mortensen (Nephrology) until 10/02/2024. Pt has pending appointment with Josys Natarajan 07/15/2024. Romy Grewal LPN Call completed by: LUIS Patient seen in ED: Out of Network ED Contact made with Patient: Yes The patient was identified by Name and Date of . Discussed Care with: patient Patient was seen in the Emergency Department (ED) Location: [facility] Date: 06/28/2024 Reason for ED Visit: Kidney stone ED Intervention: Labs CT abd and pelvis without contrast New Medications: Oxycodone-Acetaminophen 5-325 mg 1 tablet by mouth every 6 hours as needed Naproxen 500 mg 1 tablet by mouth twice daily Medication Changes: None Does patient understand medication changes: N/A Can patient afford medication changes: N/A Patient educated on worsening symptoms and when and where to seek additional care: No Patient Education Provided including treatment plan and new orders. Patient provided with appropriate counseling: Yes Allergies As of Date: 07/04/2024 (No Known Allergies) Date Reviewed: 06/16/2024 Reviewed by: Jihan Godwin APRN.[employer] - Fully Assessed Reason for Visit: ED Follow-up [821] Cmt: [facility] 06/28/2024 Prescriptions as of 07/04/2024 - oxyCODONE-acetaminophen (PERCOCET) 5-325 mg tablet Take 1 tablet by mouth every 6 hours as needed for pain for up to 5 days. Patient should start on July 03, 2024. - labetalol (TRANDATE) 200 mg tablet Take 1.5 tablets by mouth three times a day. - nabumetone (RELAFEN) 500 mg tablet Take 1 tablet by mouth two times a day. - lisinopril (ZESTRIL) 40 mg tablet Take 1 tablet by mouth two times a day. - acetaminophen (TYLENOL) 500 mg tablet Take 2 tablets by mouth every 8 hours as needed for pain. - erythromycin (ROMYCIN) 5 mg/gram (0.5 %) ophthalmic ointment Use 1 Drop in the right eye daily at bedtime. Patient should start on September 22, 2023. Problem List As Of Date 07/04/2024 Noted Resolved RSD (reflex sympathetic dystrophy) [G90.50] [...] 12/29/2021 Nicotine use disorder, F17.2 [F17.200] 04/01/2022 Hypertensive urgency [I16.0] 08/31/2022 Headache [R51.9] 08/31/2022 Mixed hyperlipidemia [E78.2] 09/01/2022 Left flank pain [R10.9] 11/17/2022 Hypertension, essential [I10] 07/16/2023 Left knee pain [M25.562] 07/16/2023 Left hamstring muscle strain [S76.312A] 07/16/2023 Left leg pain [M79.605] 07/16/2023 MONROY (dyspnea on exertion) [R06.09] 08/28/2023 S/P total knee arthroplasty, left [Z96.652] 09/19/2023 Post-traumatic osteoarthritis of left knee [M17*11/08/2023 Encounter Status:Closed by ROMY GREWAL on 07/04/24[facility] 06-28-2024 Discharge summary [facility] Medical Records Department [address] [place] [address] Emergency Department Summary 06/28/24 MR#: [id number] Acct: [id number] Name: RUDDY RUVALCABA Rep #:[id number] : 1970 53 From: Maxim De León MD PCP: PIOTR Encarnacion Status:REG E R Location: ED HPI History of Present Illness Chief Complaint: Flank Pain Detail of Chief Complaint: Acute right flank pain with nausea and vomiting Informant: patient Onset/Context/Timing Onset: Today Context: Sudden Onset Timing: Intermittent Quality: Pain Location: right flank Current Severity: Severe Maximum Severity: Severe Worsened by: Nothing Relieved by: nothing Associated Symptoms Associated Symptoms: Nausea vomiting Narrative Narrative: Patient is a 53-year-old male. He has history of hypertension who is presently on 300 mg of labetalol 3 times a day and 40 mg of lisinopril twice a day who presents with abrupt onset of right flank pain that started last evening. He states he drank a bunch of water. He believes he passed the stone since his pain resolved. Couple hours prior to presentation he developed severe right flank pain again that radiates anteriorly but not down to the groin. He denies dysuria, frequency, urgency or hematuria. He had nausea and 1 episode of vomiting last night. He is nauseous presently. He denies fever, chills night sweats. He was seen in May and blood pressure at that time was elevated. He was treated with IV hydralazine and p.o. clonidine Patient denies chest pain or upper back pain. Patient denies paresthesia, anesthesia or motor weakness upper or lower extremity. Patient states that every time he had a stone he had to have it surgically removed. Prior similar symptoms: Yes (Kidney stone) Recent Illness/Hospitalization: Yes (Elevated blood pressure) [facility] Medical History Diverticulitis Hypertension Anxiety and depression Osteoarthritis Nephrolithiasis Home Medications ?Medication ?Instructions ?Recorded ?Last Taken ?Type amoxicillin 875 mg-potassium 1 tab PO Q8H #30 tabs 12/09 Unknown Rx clavulanate 125 mg tablet Held on 12/24/22. Instructions: Pt has been DC'd ondansetron 4 mg disintegrating 4 mg PO Q8H PRN PRN Na usea #10 tabs 06/26/21 Unknown Rx tablet cyclobenzaprine 10 mg tablet 10 mg PO TID PRN Muscle S pasm #20 10/22/22 Unknown Rx Held on 12/24/22. TABLETS Instructions: Pt has been DC'd hydrocodone-acetaminophen 5-325mg 1 tab PO Q4H PRN PRN Pain 2 days 10/22/22 Unknown Rx 5mg-325mg #10 TABLETS Held on 12/24/22. Instructions: Pt has been DC'd amlodipine 10 mg tablet 10 mg PO DAILY 12/24/22 Unkn own History chlorthalidone 25 mg tablet 25 mg PO DAILY 12/24/22 Un known History doxycycline hyclate 100 mg capsule 100 mg PO BID #20 c aps 12/24/22 Unknown Rx finasteride 5 mg tablet 5 mg PO DAILY 12/24/22 Unkno wn History hydralazine 50 mg tablet 50 mg PO TID 12/24/22 Unknow n History labetalol 200 mg tablet 300 mg PO BID 12/24/22 Unkno wn History lisinopril 10 mg tablet 40 mg PO BID 12/24/22 Unknow n History hydrocodone-acetaminophen 5-325mg 1 tab PO Q6H PRN channing n 3 days #12 04/10/23 Unknown Rx 5mg-325mg tabs naproxen 500 mg tablet 500 mg PO BID #14 tabs 06/28 Unknown Rx oxycodone-acetaminophen 5 mg-325 1 tab PO Q6H PRN PRN Pain 3 days 06/28/24 Unknown Rx mg tablet #12 TABLETS Allergy/AdvReac Type Severity Reaction Status Date / Time No Known Allergies Allergy Verified 06/28/24 13:45 Family History no significant family his Surgical History History of nasal surgery Hx of arthroscopic knee surgery History of repair of ACL Hx of total knee replacement Social History household members: spouse Smoking Status: Heavy Smoker (>10/day) ROS ROS ED Constitutional Constitutional ED: Denies chills, fever(s), subjective, sweats or weight loss Eyes Eyes: Denies blurry vision, change in vision or diplopia ENT ENT ED: Denies rhinorrhea or sore throat Cardiovascular Cardiovascular: Denies chest pain, orthopnea, palpitations, paroxysmal nocturnaldyspnea or racing heartbeat Respiratory/Chest Respiratory/Chest: Denies cough, dyspnea, dyspnea on exertion, orthopnea or paroxysmal nocturnal dyspnea Gastrointestinal Gastrointestinal: Reports abdominal pain, nausea and vomiting; Denies constipation, diarrhea or melena Genitourinary Genitourinary ED: Denies dysuria, hematuria or urinary frequency Musculoskeletal Musculoskeletal: Reports other Details: Right flank pain ; Denies arthralgias, back pain, myalgias or neck pain Integumentary Denies rash Neurologic Neurologic: Denies headache(s) or paresthesias Hematologic/Lymphatic Hematologic/Lymphatic: Reports systems reviewed and no addt'l complaints, exceptas documented EXAM Physical Exam Const Vital Signs: 06/28/24 13:43 06/28/24 16:14 Temperature 97.8 F Temperature Source Oral Pulse Rate 82 73 Respiratory Rate 18 18 Blood Pressure 247/114 H 210/99 H Blood Pressure Mean 158 136 Pulse Ox 100 95 Oxygen Delivery Method Room Air Positive well nourished Constitutional Narrative: Patient appears in obvious distress. His blood pressure is elevated 247/114. He is breathing fasterthan 18 times a minute. He is unable to find a position of comfort. General Appearance ED: Negative for pallor HEENT Reports moist mucous membranes HEENT Narrative: Head is atraumatic normocephalic. Ears normal. Nares patent Eyes PERRL and EOMs intact bilaterally General Eye ED: Negative for pale conjunctiva or scleral icterus Neck no lymphadenopathy, supple and no JVD Chest Wall inspection of chest normal and palpation of chest normal Resp normal respiratory effort and clear to auscultation bilaterally Cardio regular rate, regular rhythm, S1 normal heart sound, S2 normal heart sound and no murmurs GI normal to inspection, nondistended, normoactive bowel sounds, non-tender, non- distended and no masses; Negative for hepatosplenomegaly Palpation: soft Back/Spine no CVA tenderness Extremity normal to inspection Extremity Narrative: There is no clubbing, cyanosis or pallor. Radial pulses 2+ and symmetric. PT pulses 1+ and symmetric. General Extremety ED: Negative for edema General Extremity: Negative for edema Neuro oriented x3, CN's II-XII intact bilaterally and no sensory deficits noted Sensorium / Orientation: alert Motor Exam: strength 5/5 throughout Psych mental status grossly normal Mood & Affect: Negative for depressed Skin no rashes or lesions noted, no wounds and skin turgor normal General Skin Exam: Negative for jaundice or pallor MDM MDM MDM Narrative Medical decision making narrative: Patient with obvious acute intermittent flank pain. Most likely this representsa renal calculus. Also need to entertain possibility of aortic dissection, aortic aneurysm. Will medicate with Zofran for his nausea ketorolac and morphine for his pain. His blood pressure is not improved we will treat his blood pressure. CT of the abdomen pelvis without contrast was ordered since thestory is more consistent with obstructing ureteral stone versus dissection or abdominal aortic aneurysm. He was seen last month for accelerated hypertension. And he was treated at that time with clonidine and IV hydralazine. History & Record Review Additional record(s) reviewed:: Prior ED visit (Patient was seen in May 2023 for elevated blood pressure by Dr. Migule Gutierrez.) and Prior labs Lab Data Attestation: I reviewed the patient's lab results. Lab results narrative: CBC is unremarkable basic metabolic panel is unremarkable. UA macro was positive for occult blood and protein. Micro was pending. Labs: Laboratory Results - last 24 hr 06/28/24 06/28/24 14:16 15:15 WBC 9.7 RBC 4.86 Hgb 14.4 Hct 42.0 MCV 86.4 MCH 29.6 MCHC 34.3 RDW Std Deviation 42.5 RDW Coeff of Shin 13.5 Plt Count 315 MPV 10.2 Immature Gran % (Auto) 0.400 Neut % (Auto) 64.9 Lymph % (Auto) 24.2 [place] % (Auto) 6.7 Eos % (Auto) 2.9 Baso % (Auto) 0.9 Absolute Neuts (auto) 6.3 Absolute Lymphs (auto) 2.36 Nucleated RBC % 0 Sodium 140 Potassium 4.4 Chloride 104 Carbon Dioxide 24.2 Anion Gap 11 BUN 20 H Creatinine 1.16 Estim Creat Clear Calc 91.58 Est GFR (MDRD) Non-Af 74 BUN/Creatinine Ratio 17.2 Glucose 126 H Calcium 9.6 Urine Color Yellow Urine Clarity Clear Urine pH 6.0 Ur Specific Mather 1.015 Urine Protein 30 H Urine Glucose (UA) Normal Urine Ketones Negative Urine Occult Blood 150 H Urine Nitrite Negative Urine Bilirubin Negative Urine Urobilinogen Normal Ur Leukocyte Esterase Negative Basic metabolic panel is unremarkable. Glucose is 126. CO2 anion gap is normal. Renal function is normal. Radiography Diagnostic Testing: Clinical Impression(s) from Imaging Studies Abdomen/Pelvis CT 06/28/24 14:35 IMPRESSION: 1. 3 mm calculus of the right UVJ resulting in mild hydroureteronephrosis. 2. Small esophageal hiatal hernia. 3. Hepatomegaly with fatty infiltration. 4. Punctate left nephrolithiasis without hydronephrosis. 5. Umbilical hernia containing fat. 6. Colonic diverticulosis without acute diverticulitis. Reading Location: [facility]--[place] CT of the abdomen and pelvis without contrast reveals bilateral renal calculi. There is a distal stone right UVJ about to enter the bladder. There are significant mount of phleboliths as well. There is evidence of hydronephrosis and hydroureter on the right. Awaiting formal read by radiologist. In my opinion there is no evidence of a aortic dissection or aneurysm. Treatment and Re-Evaluation :: Patient was reassessed at 1452. He still in obvious discomfort. Will order additional dose of morphine. His blood pressure has improved to 207 systolic. Patient did become pain-free. He passed a stone. Shortly afterwards he developed severe pain. He again has pain in the right flank. Additional morphine was ordered. Will reassess. Comments:: Patient was reassessed at 1639. He is no longer in pain. Plan is todischarge home on opiate analgesic and NSAID since he has no contraindication. His urologist is through the [facility]. Discharge Plan Triage Chief Complaint: Flank Pain ED Provider: Maxim De León Dx/Rx/DC Orders Clinical Impression: Hydronephrosis with urinary obstruction due to ureteral calculus, Tobacco use, Hypertension, Bilateral kidney stones Instructions: ED Kidney Stone with Pain Prescriptions: New oxycodone-acetaminophen 5-325 mg tablet 1 tab PO Q6H PRN PRN (Reason: Pain) 3 Days Qty: 12 0RF naproxen 500 mg tablet 500 mg PO BID Qty: 14 0RF No Action amoxicillin-pot clavulanate 875-125 mg tablet 1 tab PO Q8H Qty: 30 0RF ondansetron 4 mg tablet,disintegrating 4 mg PO Q8H PRN PRN (Reason: Nausea) Qty: 10 0RF cyclobenzaprine [cyclobenzaprine] 10 mg tablet 10 mg PO TID PRN (Reason: Muscle Spasm) Qty: 20 0RF hydrocodone-acetaminophen [hydrocodone-acetaminophen] 5-325 mg tablet 1 tab PO Q4H PRN PRN (Reason: Pain) 2 Days Qty: 10 0RF labetalol 200 mg tablet 300 mg PO BID Patient Comments: TAKE 1 & 1/2 (ONE AND ONE-HALF) TABLETS BY MOUTH TWICE DAILY hydralazine 50 mg tablet 50 mg PO TID Patient Comments: TAKE 1 TABLET BY MOUTH THREE TIMES DAILY finasteride 5 mg tablet 5 mg PO DAILY Patient Comments: Take 1 tablet by mouth once daily. chlorthalidone 25 mg tablet 25 mg PO DAILY Patient Comments: Take 1 tablet by mouth once daily. amlodipine 10 mg tablet 10 mg PO DAILY Patient Comments: Take 1 tablet by mouth once daily. lisinopril 10 mg tablet 40 mg PO BID doxycycline hyclate 100 mg capsule 100 mg PO BID Qty: 20 0RF hydrocodone-acetaminophen 5-325 mg tablet 1 tab PO Q6H PRN (Reason: pain) 3 Days Qty: 12 0RF Primary Care Provider: Jossy Natarajan NP Referrals: Jossy Natarajan NP, HOME CARE SPECIALIST-C [Primary Care Provider] - Activity Restrictions/Additional Instructions: Follow-up with your urologist as needed. Take medication as prescribed. Follow-up with your provider for blood pressure check in 1 to 2 weeks. Print Language: Maori Disposition Disposition: Home, Self Care What to do if you have Problems For any increased pain, shortness of breath, bleeding, nausea or vomiting, chestpain, or any unexpected problems, contact your Primary Care Provider. Call [facility] ([phone]) or report tothe closest Emergency Room. Call 911 if necessary. 06/28/24 4415 Cosigner Signature (if applicable): CC: PIOTR Natarajan ~ Signed [facility]04-11-2025 Radiology Diagnostic study note [facility] Imaging Services [address] [place] [address] Abdomen/Pelvis without Cont MR#: [id number] Acct: [id number] Name: RUDDY RUVALCABA Rep #: [id number] : 1970 M 53 From: Kelly Zhang MD PCP: PIOTR Encarnacion Status: PRE E R Study:Abdomen/Pelvis without Cont Date of Exa m: 06/28/24 Exam# [id number] Ordering Dr: Oumar De León MD EXAM: CT Abdomen and Pelvis Without Intravenous Contrast CLINICAL INDICATION: KIDNEY STONE TECHNIQUE: Axial computed tomography images of the abdomen and pelvis without intravenous contrast.This CT exam was performed using one or more of the following dose reduction techniques: automated exposure control, adjustment of the mA and/or kV according to patient size, and/or use of iterative reconstruction technique. COMPARISON: No relevant prior studies available. FINDINGS: LUNG BASES: Unremarkable. No mass. No consolidation. MEDIASTINUM: Small esophageal hiatal hernia. ABDOMEN: LIVER: Hepatomegaly with fatty infiltration. GALLBLADDER AND BILE DUCTS: Unremarkable. No calcified stones. No ductal dilation. PANCREAS: Unremarkable. No ductal dilation. SPLEEN: Unremarkable. No splenomegaly. ADRENALS: Unremarkable. No mass. KIDNEYS AND URETERS: 3 mm calculus of the right UVJ resulting in mild hydroureteronephrosis. Punctate left nephrolithiasis without hydronephrosis. STOMACH AND BOWEL: Colonic diverticulosis without acute diverticulitis. No obstruction. PELVIS: APPENDIX: No findings to suggest acute appendicitis. BLADDER: Unremarkable. No stones. REPRODUCTIVE: Unremarkable as visualized. ABDOMEN and PELVIS: INTRAPERITONEAL SPACE: Unremarkable. No free air. No significant fluid collection. BONES/JOINTS: No acute fracture. No dislocation. SOFT TISSUES: Umbilical hernia containing fat. VASCULATURE: Unremarkable. No abdominal aortic aneurysm. LYMPH NODES: Unremarkable. No enlarged lymph nodes. CT/Abdomen/Pelvis without Cont IMPRESSION: 1. 3 mm calculus of the right UVJ resulting in mild hydroureteronephrosis. 2. Small esophageal hiatal hernia. 3. Hepatomegaly with fatty infiltration. 4. Punctate left nephrolithiasis without hydronephrosis. 5. Umbilical hernia containing fat. 6. Colonic diverticulosis without acute diverticulitis. Reading Location: [facility] CC: HOME CARE SPECIALIST-C Jossy Natarajan; Dr. Maxim De León MD ~ Bi Tester: Signed [facility]04-11-2025 Discharge summary Author Maxim De León [facility] Note Date/Time June 28, 2024 4:[address] [facility] Medical Records Department [address] [place] [address] Emergency Department Summary 06/28/24 MR#: [id number] Acct: [id number] Name: RUDDY RUVALCABA Rep #:[id number] : 1970 53 From: Maxim De León MD PCP: PIOTR Encarnacion Status:REG E R Location: ED HPI History of Present Illness Chief Complaint: Flank Pain Detail of Chief Complaint: Acute right flank pain with nausea and vomiting Informant: patient Onset/Context/Timing Onset: Today Context: Sudden Onset Timing: Intermittent Quality: Pain Location: right flank Current Severity: Severe Maximum Severity: Severe Worsened by: Nothing Relieved by: nothing Associated Symptoms Associated Symptoms: Nausea vomiting Narrative Narrative: Patient is a 53-year-old male. He has history of hypertension who is presently on 300 mg of labetalol 3 times a day and 40 mg of lisinopril twice a day who presents with abrupt onset of right flank pain that started last evening. He states he drank a bunch of water. He believes he passed the stone since his pain resolved. Couple hours prior to presentation he developed severe right flank pain again that radiates anteriorly but not down to the groin. He denies dysuria, frequency, urgency or hematuria. He had nausea and 1 episode of vomiting last night. He is nauseous presently. He denies fever, chills night sweats. He was seen in May and blood pressure at that time was elevated. He was treated with IV hydralazine and p.o. clonidine Patient denies chest pain or upper back pain. Patient denies paresthesia, anesthesia or motor weakness upper or lower extremity. Patient states that every time he had a stone he had to have it surgically removed. Prior similar symptoms: Yes (Kidney stone) Recent Illness/Hospitalization: Yes (Elevated blood pressure) [facility] Medical History Diverticulitis Hypertension Anxiety and depression Osteoarthritis Nephrolithiasis Home Medications ?Medication ?Instructions ?Recorded ?Last Taken ?Type amoxicillin 875 mg-potassium 1 tab PO Q8H #30 tabs 12/09 Unknown Rx clavulanate 125 mg tablet Held on 12/24/22. Instructions: Pt has been DC'd ondansetron 4 mg disintegrating 4 mg PO Q8H PRN PRN Na usea #10 tabs 06/26/21 Unknown Rx tablet cyclobenzaprine 10 mg tablet 10 mg PO TID PRN Muscle S pasm #20 10/22/22 Unknown Rx Held on 12/24/22. TABLETS Instructions: Pt has been DC'd hydrocodone-acetaminophen 5-325mg 1 tab PO Q4H PRN PRN Pain 2 days 10/22/22 Unknown Rx 5mg-325mg #10 TABLETS Held on 12/24/22. Instructions: Pt has been DC'd amlodipine 10 mg tablet 10 mg PO DAILY 12/24/22 Unkn own History chlorthalidone 25 mg tablet 25 mg PO DAILY 12/24/22 Un known History doxycycline hyclate 100 mg capsule 100 mg PO BID #20 c aps 12/24/22 Unknown Rx finasteride 5 mg tablet 5 mg PO DAILY 12/24/22 Unkno wn History hydralazine 50 mg tablet 50 mg PO TID 12/24/22 Unknow n History labetalol 200 mg tablet 300 mg PO BID 12/24/22 Unkno wn History lisinopril 10 mg tablet 40 mg PO BID 12/24/22 Unknow n History hydrocodone-acetaminophen 5-325mg 1 tab PO Q6H PRN channing n 3 days #12 04/10/23 Unknown Rx 5mg-325mg tabs naproxen 500 mg tablet 500 mg PO BID #14 tabs 06/28 Unknown Rx oxycodone-acetaminophen 5 mg-325 1 tab PO Q6H PRN PRN Pain 3 days 06/28/24 Unknown Rx mg tablet #12 TABLETS Allergy/AdvReac Type Severity Reaction Status Date / Time No Known Allergies Allergy Verified 06/28/24 13:45 Family History no significant family his Surgical History History of nasal surgery Hx of arthroscopic knee surgery History of repair of ACL Hx of total knee replacement Social History household members: spouse Smoking Status: Heavy Smoker (>10/day) ROS ROS ED Constitutional Constitutional ED: Denies chills, fever(s), subjective, sweats or weight loss Eyes Eyes: Denies blurry vision, change in vision or diplopia ENT ENT ED: Denies rhinorrhea or sore throat Cardiovascular Cardiovascular: Denies chest pain, orthopnea, palpitations, paroxysmal nocturnaldyspnea or racing heartbeat Respiratory/Chest Respiratory/Chest: Denies cough, dyspnea, dyspnea on exertion, orthopnea or paroxysmal nocturnal dyspnea Gastrointestinal Gastrointestinal: Reports abdominal pain, nausea and vomiting; Denies constipation, diarrhea or melena Genitourinary Genitourinary ED: Denies dysuria, hematuria or urinary frequency Musculoskeletal Musculoskeletal: Reports other Details: Right flank pain ; Denies arthralgias, back pain, myalgias or neck pain Integumentary Denies rash Neurologic Neurologic: Denies headache(s) or paresthesias Hematologic/Lymphatic Hematologic/Lymphatic: Reports systems reviewed and no addt'l complaints, exceptas documented EXAM Physical Exam Const Vital Signs: 06/28/24 13:43 06/28/24 16:14 Temperature 97.8 F Temperature Source Oral Pulse Rate 82 73 Respiratory Rate 18 18 Blood Pressure 247/114 H 210/99 H Blood Pressure Mean 158 136 Pulse Ox 100 95 Oxygen Delivery Method Room Air Positive well nourished Constitutional Narrative: Patient appears in obvious distress. His blood pressure is elevated 247/114. He is breathing faster than 18 times a minute. He is unable to find a position of comfort. General Appearance ED: Negative for pallor HEENT Reports moist mucous membranes HEENT Narrative: Head is atraumatic normocephalic. Ears normal. Nares patent Eyes PERRL and EOMs intact bilaterally General Eye ED: Negative for pale conjunctiva or scleral icterus Neck no lymphadenopathy, supple and no JVD Chest Wall inspection of chest normal and palpation of chest normal Resp normal respiratory effort and clear to auscultation bilaterally Cardio regular rate, regular rhythm, S1 normal heart sound, S2 normal heart sound and no murmurs GI normal to inspection, nondistended, normoactive bowel sounds, non-tender, non-distended and no masses; Negative for hepatosplenomegaly Palpation: soft Back/Spine no CVA tenderness Extremity normal to inspection Extremity Narrative: There is no clubbing, cyanosis or pallor. Radial pulses 2+ and symmetric. PT pulses 1+ and symmetric. General Extremety ED: Negative for edema General Extremity: Negative for edema Neuro oriented x3, CN's II-XII intact bilaterally and no sensory deficits noted Sensorium / Orientation: alert Motor Exam: strength 5/5 throughout Psych mental status grossly normal Mood & Affect: Negative for depressed Skin no rashes or lesions noted, no wounds and skin turgor normal General Skin Exam: Negative for jaundice or pallor MDM MDM MDM Narrative Medical decision making narrative: Patient with obvious acute intermittent flank pain. Most likely this representsa renal calculus. Also need to entertain possibility of aortic dissection, aortic aneurysm. Will medicate with Zofran for his nausea ketorolac and morphine for his pain. His blood pressure is not improved we will treat his blood pressure. CT of the abdomen pelvis without contrast was ordered since thestory is more consistent with obstructing ureteral stone versus dissection or abdominal aortic aneurysm. He was seen last month for accelerated hypertension. And he was treated at that time with clonidine and IV hydralazine. History & Record Review Additional record(s) reviewed:: Prior ED visit (Patient was seen in May 2023 for elevated blood pressure by Dr. Miguel Gutierrez.) and Prior labs Lab Data Attestation: I reviewed the patient's lab results. Lab results narrative: CBC is unremarkable basic metabolic panel is unremarkable. UA macro was positive for occult blood and protein. Micro was pending. Labs: Laboratory Results - last 24 hr 06/28/24 06/28/24 14:16 15:15 WBC 9.7 RBC 4.86 Hgb 14.4 Hct 42.0 MCV 86.4 MCH 29.6 MCHC 34.3 RDW Std Deviation 42.5 RDW Coeff of Shin 13.5 Plt Count 315 MPV 10.2 Immature Gran % (Auto) 0.400 Neut % (Auto) 64.9 Lymph % (Auto) 24.2 [place] % (Auto) 6.7 Eos % (Auto) 2.9 Baso % (Auto) 0.9 Absolute Neuts (auto) 6.3 Absolute Lymphs (auto) 2.36 Nucleated RBC % 0 Sodium 140 Potassium 4.4 Chloride 104 Carbon Dioxide 24.2 Anion Gap 11 BUN 20 H Creatinine 1.16 Estim Creat Clear Calc 91.58 Est GFR (MDRD) Non-Af 74 BUN/Creatinine Ratio 17.2 Glucose 126 H Calcium 9.6 Urine Color Yellow Urine Clarity Clear Urine pH 6.0 Ur Specific Mather 1.015 Urine Protein 30 H Urine Glucose (UA) Normal Urine Ketones Negative Urine Occult Blood 150 H Urine Nitrite Negative Urine Bilirubin Negative Urine Urobilinogen Normal Ur Leukocyte Esterase Negative Basic metabolic panel is unremarkable. Glucose is 126. CO2 anion gap is normal. Renal function is normal. Radiography Diagnostic Testing: Clinical Impression(s) from Imaging Studies Abdomen/Pelvis CT 06/28/24 14:35 IMPRESSION: 1. 3 mm calculus of the right UVJ resulting in mild hydroureteronephrosis. 2. Small esophageal hiatal hernia. 3. Hepatomegaly with fatty infiltration. 4. Punctate left nephrolithiasis without hydronephrosis. 5. Umbilical hernia containing fat. 6. Colonic diverticulosis without acute diverticulitis. Reading Location: [facility] CT of the abdomen and pelvis without contrast reveals bilateral renal calculi. There is a distal stone right UVJ about to enter the bladder. There are significant mount of phleboliths as well. There is evidence of hydronephrosis and hydroureter on the right. Awaiting formal read by radiologist. In my opinion there is no evidence of a aortic dissection or aneurysm. Treatment and Re-Evaluation :: Patient was reassessed at 1452. He still in obvious discomfort. Will order additional dose of morphine. His blood pressure has improved to 207 systolic. Patient did become pain-free. He passed a stone. Shortly afterwards he developed severe pain. He again has pain in the right flank. Additional morphine was ordered. Will reassess. Comments:: Patient was reassessed at 1639. He is no longer in pain. Plan is todischarge home on opiate analgesic and NSAID since he has no contraindication. His urologist is through the [facility]. Discharge Plan Triage Chief Complaint: Flank Pain ED Provider: Maxim De León Dx/Rx/DC Orders Clinical Impression: Hydronephrosis with urinary obstruction due to ureteral calculus, Tobacco use, Hypertension, Bilateral kidney stones Instructions: ED Kidney Stone with Pain Prescriptions: New oxycodone-acetaminophen 5-325 mg tablet 1 tab PO Q6H PRN PRN (Reason: Pain) 3 Days Qty: 12 0RF naproxen 500 mg tablet 500 mg PO BID Qty: 14 0RF No Action amoxicillin-pot clavulanate 875-125 mg tablet 1 tab PO Q8H Qty: 30 0RF ondansetron 4 mg tablet,disintegrating 4 mg PO Q8H PRN PRN (Reason: Nausea) Qty: 10 0RF cyclobenzaprine [cyclobenzaprine] 10 mg tablet 10 mg PO TID PRN (Reason: Muscle Spasm) Qty: 20 0RF hydrocodone-acetaminophen [hydrocodone-acetaminophen] 5-325 mg tablet 1 tab PO Q4H PRN PRN (Reason: Pain) 2 Days Qty: 10 0RF labetalol 200 mg tablet 300 mg PO BID Patient Comments: TAKE 1 & 1/2 (ONE AND ONE-HALF) TABLETS BY MOUTH TWICE DAILY hydralazine 50 mg tablet 50 mg PO TID Patient Comments: TAKE 1 TABLET BY MOUTH THREE TIMES DAILY finasteride 5 mg tablet 5 mg PO DAILY Patient Comments: Take 1 tablet by mouth once daily. chlorthalidone 25 mg tablet 25 mg PO DAILY Patient Comments: Take 1 tablet by mouth once daily. amlodipine 10 mg tablet 10 mg PO DAILY Patient Comments: Take 1 tablet by mouth once daily. lisinopril 10 mg tablet 40 mg PO BID doxycycline hyclate 100 mg capsule 100 mg PO BID Qty: 20 0RF hydrocodone-acetaminophen 5-325 mg tablet 1 tab PO Q6H PRN (Reason: pain) 3 Days Qty: 12 0RF Primary Care Provider: Jossy Natarajan NP Referrals: Jossy Natarajan NP, HOME CARE SPECIALIST-C [Primary Care Provider] - Activity Restrictions/Additional Instructions: Follow-up with your urologist as needed. Take medication as prescribed. Follow-up with your provider for blood pressure check in 1 to 2 weeks. Print Language: Maori Disposition Disposition: Home, Self Care What to do if you have Problems For any increased pain, shortness of breath, bleeding, nausea or vomiting, chestpain, or any unexpected problems, contact your Primary Care Provider. Call [facility] ([phone]) or report to the closest Emergency Room. Call 911 if necessary. 06/28/24 1276 <Electronically signed by Maxim De León MD> Cosigner Signature (if applicable): CC: PIOTR Natarajan ~ Signed [facility] Work Phone: 1(930) 282-476804-11-2025 Hospital Discharge instructions Additional Instructions Follow-up with your urologist as needed. Take medication as prescribed. Follow-up with your provider for blood pressure check in 1 to [address] Work Phone: 1(163) 733-527903-28-2025 NoteHNO ID: [id number] Author: NOAH DE ANDA APRN.CNP Service: ? Author Type: Nurse Practitioner Type: Progress Notes Filed: 06/14/2024 07:54 Note Text: Orthopaedic Office Note: June 14, 2024 7:47 AM Ruddy Lanier Peg 53 year old History: Justice returns today for his left knee. He is well known to me having undergone a L TKA with Dr. Delgado in September of last year. Please see previous notes for full history. In short, he was at a point where he was actually doing quite well with minimal discomfort in the knee. Unfortunately, he sustained a mechanical fall roughly 4 weeks ago. X-rays were ordered and at that time there was concern for fracture. Subsequent CT scan was ordered and confirmed no fracture. He continues to complain of pain and discomfort. He is here today for evaluation. Subjective: Left knee pain Updated ROS: No changes Updated Exam: Left Lower Extremity: KNEE EXAM: Left: Incision well healed. No erythema or warmth Minimal swelling Range of motion is 0 degrees in extension and 115 degrees of flexion. Pain with ROM: No Effusion: None Tender to the palpation of: generalized hyperalgesia, most notably lateral to incision and extending down towards the midshaft tibia Pain with patellar compression: No Stability: Anterior/Posterior stable and Varus/Valgus stable Hip Exam: flexion to 100+ degrees, full extension, internal/external rotation adequate and no pain with log roll Neurovascular Status: Sensation Intact and Moves foot and ankle up AND down Updated Imaging: None today Assessment and Plan: Left knee pain Justice and I discussed his left knee today. Last x-rays and CT appeared stable. Mechanically his knee is functioning well for him. Unfortunately, I do believe his mechanical fall has stirred up his RSD. He has extreme sensitivity over the lateral aspect of the knee. His pain at rest just sitting is a 7 subjectively. There are no signs of infection. He has previously been aspirated. I would like for him to see pain management for evaluation for this. In the meantime, I have prescribed a prednisone taper and a short prescription of [place] to see if we can quiet things down. He can follow back up with our office after pain management evaluation. All questions answered. Noah De Anda APRN.CERAMIC COATER MACHINE Orthopaedic Surgery I spent a total of approximately 25 minutes on the date of the service which included preparing to see the patient, [id number] patient care, completing clinical documentation, obtaining and/or reviewing separately obtained history, performing a medically appropriate examination, counseling and educating the patient/family/caregiver, ordering medications, tests, or procedures, independently interpreting results (not separately reported), communicating results to the patient/family/caregiver, and care coordination (not separately reported).[facility]03-27-2025 NoteHNO ID: [id number] Author: ?, ?, ? Service: ? Author Type: ? Type: Progress Notes Filed: 06/13/2024 12:53 Note Text: POPULATION HEALTH NAVIGATION OUTREACH Action/[facility] Support: Called pt to schedule an appt in Pain Management. No answer, lvm for pt to call [phone] for scheduling. Any agent can assist. Reason for Outreach Care Gap/HCC or Scheduling Wellness Visits Care Gaps due: N/A Patient Contacted: Unable or unnecessary to reach patient: Left message [employer] message sent Navigation Signature: Jo Delgadillo June 13, 2024 12:52 [facility]03-27-2025 NotePatient Outreach (NETNAV) RUDDY RUVALCABA ([id number]) 1970 M Date Time Provider Department 06/13/24 NO PCP (HIST) NETNAV During your visit today, we recorded the following information about you: Jo Delgadillo 06/13/2024 12:53 PM Signed POPULATION HEALTH NAVIGATION OUTREACH Action/[facility] Support: Called pt to schedule an appt in Pain Management. No answer, lvm for pt to call [phone] for scheduling. Any agent can assist. Reason for Outreach Care Gap/HCC or Scheduling Wellness Visits Care Gaps due: N/A Patient Contacted: Unable or unnecessary to reach patient: Left message [employer] message sent Navigation Signature: Jo Delgadillo June 13, 2024 12:52 PM Allergies As of Date: 06/13/2024 (No Known Allergies) Date Reviewed: 06/11/2024 Reviewed by: Najma Freeman MA - Fully Assessed Prescriptions as of 06/13/2024 - predniSONE (DELTASONE) 20 mg tablet Take 3 tablets by mouth once daily for 3 days, THEN 2 tablets once daily for 3 days, THEN 1 tablet once daily for 3 days. - HYDROcodone-acetaminophen (NORCO) 5-325 mg per tablet Take 1 tablet by mouth two times a day as needed for pain for up to 7 days. - labetalol (TRANDATE) 200 mg tablet Take 1.5 tablets by mouth three times a day. - nabumetone (RELAFEN) 500 mg tablet Take 1 tablet by mouth two times a day. - lisinopril (ZESTRIL) 40 mg tablet Take 1 tablet by mouth two times a day. - acetaminophen (TYLENOL) 500 mg tablet Take 2 tablets by mouth every 8 hours as needed for pain. - erythromycin (ROMYCIN) 5 mg/gram (0.5 %) ophthalmic ointment Use 1 Drop in the right eye daily at bedtime. Patient should start on September 22, 2023. Problem List As Of Date 06/13/2024 Noted Resolved RSD (reflex sympathetic dystrophy) [G90.50] [...] 12/29/2021 Nicotine use disorder, F17.2 [F17.200] 04/01/2022 Hypertensive urgency [I16.0] 08/31/2022 Headache [R51.9] 08/31/2022 Mixed hyperlipidemia [E78.2] 09/01/2022 Left flank pain [R10.9] 11/17/2022 Hypertension, essential [I10] 07/16/2023 Left knee pain [M25.562] 07/16/2023 Left hamstring muscle strain [S76.312A] 07/16/2023 Left leg pain [M79.605] 07/16/2023 MONROY (dyspnea on exertion) [R06.09] 08/28/2023 S/P total knee arthroplasty, left [Z96.652] 09/19/2023 Post-traumatic osteoarthritis of left knee [M17*11/08/2023 Encounter Status:Closed by JO DELGADILLO on 06/13/24[facility] 06-07-2024 NoteHNO ID: [id number] Author: JIHAN GODWIN APRN.CER[employer]IC CO[employer] MACHINE Service: ? Author Type: Nurse Practitioner Type: Progress Notes Filed: 06/16/2024 22:55 Note Text: Subjective Ruddy Ruvalcaba is a 53 year old male here today for left knee pain and swelling. I reviewed past medical, surgical, social, and family histories today and updated chart. Allergies, chronic medications, and supplements were also reviewed. HPI Left Knee Pain and Swelling: - Underwent left knee replacement on 09/17. - Fell on ice in April, landing on buttocks; knee "gave out." Denies hitting knee to the ground - Post-fall: - X-ray and CT showed fluid accumulation and ACL stretching. - Managed with pain medication; improved until last weekend. - Recent exacerbation of pain and swelling over the weekend; no new injury reported. - Pain localized to the lateral side of the knee; worsens with activity. - Previous fluid drainage post-surgery at [facility] [place]. - Denies history of knee joint infections or blood clots. - History of right knee replacement two years ago; experiencing popping and clicking, requiring revision. Patient is requesting pain medication today. He has been taking OTC ibuprofen and acetaminophen with minimal relief. He states that he contacted his orthopedic team and they advised he follow-up with PCP so that he could get pain medications until he is seen by them on Monday. Hypertension: - Managed with lisinopril and labetalol. - Lisinopril refilled recently; labetalol refill needed. - Missed appointment with Dr. Munguia in January led to running out of labetalol. - Last kidney function check in December showed improvement to normal range. - Light smoker, consuming a few cigarettes a day. PAST MEDICAL HISTORY Diagnosis Date Bilateral renal stones Class 2 severe obesity due to excess calories with serious comorbidity and body mass index (BMI) of 35.0 to 35.9 in adult (HCC) MONROY (dyspnea on exertion) Essential hypertension 10/01/2015 Fatty infiltration of liver 10/22/2022 Hypertension, unspecified type Kidney stones Mixed hyperlipidemia Nicotine use disorder Obesity, Class I, BMI 30-34.9 Reflex sympathetic dystrophy of other specified site [...] Right 12/01/2021 Right total robotic knee replacement TOTAL KNEE REPLACEMENT Left 09/18/2023 ALLERGIES Patient has no known allergies. MEDICATIONS lisinopril (ZESTRIL) 40 mg tablet Take 1 tablet by mouth two times a day. labetalol (TRANDATE) 200 mg tablet Take 1.5 tablets by mouth three times a day. acetaminophen (TYLENOL) 500 mg tablet Take 2 tablets by mouth every 8 hours as needed for pain. erythromycin (ROMYCIN) 5 mg/gram (0.5 %) ophthalmic ointment Use 1 Drop in the right eye daily at bedtime. Patient should start on September 22, 2023. FAMILY HISTORY Problem Relation Age of Onset other (negative) Father Social History Tobacco Use Smoking status: Every Day Current packs/day: 0.25 Average packs/day: 0.3 packs/day for 35.6 years (8.9 ttl pk-yrs) Types: Cigarettes Start date: 10/20/1988 Smokeless tobacco: Never Vaping Use Vaping status: Never Used Substance Use Topics Alcohol use: Not Currently Drug use: Not Currently Types: Marijuana Review of Systems Constitutional: Negative for appetite change, chills, fatigue, fever and unexpected weight change. HENT: Negative for congestion, ear pain, rhinorrhea and sore throat. Eyes: Negative for pain, discharge, itching and visual disturbance. Respiratory: Negative for cough, shortness of breath and wheezing. Cardiovascular: Negative for chest pain, palpitations and leg swelling. Gastrointestinal: Negative for abdominal pain, constipation, diarrhea, nausea and vomiting. Genitourinary: Negative for difficulty urinating. Musculoskeletal: Positive for arthralgias and joint swelling. Skin: Negative for rash. Neurological: Negative for dizziness, tremors, weakness and headaches. Psychiatric/Behavioral: Negative for dysphoric mood and sleep disturbance. The patient is not nervous/anxious. Object (more content not included)...[facility]02-21-2025 Note HNO ID: [id number] Author: DAMIEN LAINEZ RT(R) Service: ? Author Type: Photoengraving Proofer Type: Progress Notes Filed: 05/10/2024 16:12 Note Text: Radiology Service Progress Note PATIENT NAME: Ruddy Ruvalcaba DATE OF SERVICE: May 10, 2024 TIME: 4:11 PM PATIENT IDENTITY VERIFICATION COMPLETED USING TWO (2) IDENTIFIERS: Name and Date of confirmed by patient verbally. FALL SCREENING: Has the patient had 2 falls in the last year or 1 fall with injury or currently using an Ambulatory Assistive Device (Walker, Cane, Wheelchair, Crutches, etc.)? No PATIENT GENDER DATA: Assigned male at PATIENT RELEVANT IMPLANT DATA REVIEWED: Yes PATIENT PRESENTS WITH AN IMPLANTABLE OR ATTACHED TIRE DUSTER: No RADIOLOGY DEPARTMENT: CT; Exam(s) Completed: Lower extremity PERIPHERAL IV DATA: LT KNEE W/.O SIGNED BY: RT Ruthie(R) May 10, 2024 4:11 [facility]02-18-2025 NoteHNO ID: [id number] Author: ALEXEY GARLAND RT(R) Service: Radiology Author Type: Technologist Type: Progress Notes Filed: 05/07/2024 16:12 Note Text: Radiology Service Progress Note PATIENT NAME: Ruddy Ruvalcaba DATE OF SERVICE: May 07, 2024 TIME: 4:02 PM PATIENT IDENTITY VERIFICATION COMPLETED USING TWO (2) IDENTIFIERS: Name and Date of confirmed by patient verbally. FALL SCREENING: Has the patient had 2 falls in the last year or 1 fall with injury or currently using an Ambulatory Assistive Device (Walker, Cane, Wheelchair, Crutches, etc.)? No PATIENT GENDER DATA: Assigned male at PATIENT RELEVANT IMPLANT DATA REVIEWED: Not Applicable PATIENT PRESENTS WITH AN IMPLANTABLE OR ATTACHED TIRE DUSTER: No RADIOLOGY DEPARTMENT: General X-ray: Exam(s) Completed: Lower Extremity X-Ray(s): Knee, AP / Lat / Merchant Left and Wt. Bearing PERIPHERAL IV DATA: Not applicable SIGNED BY: RT Rosemary(R) May 07, 2024 4:02 [facility]11-25-2024 NoteHNO ID: [id number] Author: COREY BAUGH PT Service: ? Author Type: Physical Therapist Type: Progress Notes Filed: 02/12/2024 14:52 Note Text: Episode Visit Count: 1 Therapist That Will Accept/Oversee The Plan Of Care: Corey Baugh Start of Care Date: 02/12/24 Onset Date: 09/18/23 Plan of Care Certification Date: ((NOT NEEDED)) Next Certification Due Date: ((NOT NEEDED)) Patient Identified by Name and Date of : Yes REHABILITATION AND SPORTS THERAPY PHYSICAL THERAPY EVALUATION PLAN OF CARE: Assessment: Ruddy Ruvalcaba presents with chief complaint of pain associated with L TKA that interferes with rising from a chair, standing, walking, stair negotiation, bending, heavy exertion, lifting, physical activities, recreational activities . The patient presents with impairments in ADL's, overall function, strength, symptom management, and tissue tenderness. PROMIS? (Patient-Reported Outcomes Measurement Information System) scores were reviewed and identified as within normal limits. Prognosis for therapy is Fair due to: clinical presentation, multiple co- morbidities, chronic nature of impairments, limited compliance with previous therapy, limited tolerance to activity . The patient will benefit from skilled therapy services to meet the goals established for this plan of care as noted below. Goals for Episode of Care: established 02/12/24 Ben Bolt in home exercise program. Patient will decrease pain to 2/10 with functional activities to allow patient to improve ambulation and standing tolerance for ADLs. Patient will increase active ROM of L knee to 0-120 degrees to allow pt to to improve performance of ADLs and to improve gait mechanics / gait pattern . Patient will demonstrate increase in LLE strength to 5/5 during manual muscle testing in order to improve function for basic self-care tasks, home management tasks, leisure / recreation skills, and prior functional tasks. Perform recreational activities with decreased report of symptoms/pain in 12-16 weeks. Perform walking and ADLs without pain. Time Frame for Goals and Treatment : 04/13/24 Planned Interventions, Frequency, and Duration: Current Frequency: 1x/week Duration: 8 weeks Total Number of Visits Planned: 8 Planned Treatment Interventions: Therapeutic exercise (67578), Neuromuscular re-education (61297), Manual therapy (17985), Therapeutic activities (83779), Self-[place] [facility] management ([id number]), Patient/Family/Caregiver Education, Body Mechanics Training PLAN FOR NEXT VISIT: Needle L rectus femoris and gauge patient response to needling Patient demonstrates good understanding of plan of care and treatment. The above goals and plan of care were discussed and agreed upon by patient/family. SUBJECTIVE: L TKA 09/18/2023 with continued pain, burning, and aching around the knee joint itself +/- 3-4 inches above the joint line. Notes that there is also swelling, pink-rima red discoloration throughout the day. Patient asking for an abbreviated session today due to needing to go get his 's car to a dealership after she was in an MVA. Functional Limitations: rising from a chair, standing, walking, stair negotiation, bending, heavy exertion, lifting, physical activities, recreational activities Prior Level of Function: Independent without limitations Intake Information: Prescription present Previous Treatment: Physical Therapy , Pain meds , Surgery Pain: Pain Pain Level: 5 Pain Location: Knee - Left Description: Aching, Burning, Sore Frequency: Continuous PROMIS Scales 11/08/2023 11/28/2021 Higher is Better Phys Func - Score 44 (mild dysfunction) 35 (moderate dysfunction) Phys Func - Percentile 27 7 Self-Eff Symptom - Score 47 (Average) 39 (Low) Self-Eff Symptom - Percentile 38 14 T-scores: mean of general population = 50. 5 points is clinically meaningfully difference Percentiles provide an indication of how the patient's score ranks in relation to the general population. Higher percentile rankings indicate better function/quality of life. 50th percentile is the average of the general population and indicates half of respondents had a worse score. OBJECTIVE MEASURES WITH LEVEL OF FUNCTION: Knee Observations L Knee Presents with: Swelling, Warmth, Atrophy, Incision L Swelling: Knee joint L Atrophy : L quads L Incision: normal, well healing L Knee Palpation Tenderness: Quadriceps, Tibial tuberosity (large trigger point noted rectus femoris) LE Strength R LE Strength: 5/5 L LE Strength: 4/5 quad strength Education: TREATMENT: PT Treatment Interventions: Self-Fci Management Evaluation Self-F[facility] Management: 1: Discussed dry needling, indications for use and contraindications for intervention, theory/rationale behind needling, mechanisms of pain relief. issued handout for patient describing intervention and the contraindications for use. Skilled Inte (more content not included)...[facility]10-22-2024 NoteHNO ID: [id number] Author: JOSSY NATARAJAN APRN.CER[employer]IC COATER MACHINE Service: ? Author Type: Nurse Practitioner Type: Progress Notes Filed: 01/18/2024 14:50 Note Text: CHIEF COMPLAINT: Ruddy Ruvalcaba is a 53 year old male who presents for F/U HTN 6 Month. I reviewed past medical, surgical, social, and family histories today and updated chart. Allergies, chronic medications, and supplements were also reviewed. He was following with Dr. Mortensen with nephrology for history of uncontrolled HTN. He is currently taking Labetalol 300 mg TID and Lisinopril 40 mg twice daily. He checks his BP on occasion and it has been running in the 130/80's. He denies any symptoms associate with high blood pressure including CP, SOB, dizziness, fatigue, headaches, or vision changes. He had reconstructive surgery to his left knee in September. Still having a lot of pain. Tried Gabapentin but it didn't help. He is taking a lot of Tylenol and Ibuprofen. Being weaned off pain medication with orthopedic surgery but feels he is going to need help getting off the pain medication since he has needed it for over a year. PAST MEDICAL HISTORY Diagnosis Date Bilateral renal stones Class 2 severe obesity due to excess calories with serious comorbidity and body mass index (BMI) of 35.0 to 35.9 in adult (HCC) MONROY (dyspnea on exertion) Essential hypertension 10/01/2015 Fatty infiltration of liver 10/22/2022 Hypertension, unspecified type Kidney stones Mixed hyperlipidemia Nicotine use disorder Obesity, Class I, BMI 30-34.9 Reflex sympathetic dystrophy of other specified site [...] renal calculi x 2 HERNIA REPAIR W/MESH 1999' PAST SURGICAL HISTORY OF nose-reconstruction PAST SURGICAL HISTORY OF Left 80's hand - plate and screws PAST SURGICAL HISTORY OF Left 80's humerous fx PAST SURGICAL HISTORY OF Right 90's Knee scope x's2 PAST SURGICAL HISTORY OF Left scope x's 2 knee PAST SURGICAL HISTORY OF Left acl repair 3x's TOTAL KNEE REPLACEMENT Right 12/01/2021 Right total robotic knee replacement TOTAL KNEE REPLACEMENT Left 09/18/2023 Social History Tobacco Use Smoking status: Every Day Current packs/day: 0.25 Average packs/day: 0.3 packs/day for 35.2 years (8.8 ttl pk-yrs) Types: Cigarettes Start date: 10/20/1988 Smokeless tobacco: Never Tobacco comments: 0.5 ppd since 2012 Vaping Use Vaping status: Never Used Substance Use Topics Alcohol use: Not Currently Drug use: Not Currently Types: Marijuana ALLERGIES No Known Allergies Family History Problem Relation Age of Onset other (negative) Father Current Outpatient Medications Medication Sig Dispense Refill labetalol (TRANDATE) 200 mg tablet Take 1.5 tablets by mouth three times a day. 270 tablet 0 acetaminophen (TYLENOL) 500 mg tablet Take 2 tablets by mouth every 8 hours as needed for pain. 90 tablet 0 erythromycin (ROMYCIN) 5 mg/gram (0.5 %) ophthalmic ointment Use 1 Drop in the right eye daily at bedtime. Patient should start on September 22, 2023. lisinopril (ZESTRIL) 40 mg tablet Take 1 tablet by mouth twice daily. 180 tablet 1 oxyCODONE IR (ROXICODONE) 5 mg immediate release tablet Take 1 tablet by mouth once daily as needed for pain for up to 7 days. 1 tablet per day as needed 7 tablet 0 No current facility-administered medications for this visit. Review of Systems Constitutional: Negative for appetite change, chills, diaphoresis, fatigue and fever. Respiratory: Negative for cough, chest tightness, shortness of breath and wheezing. Cardiovascular: Negative for chest pain, palpitations and leg swelling. Genitourinary: Negative. Musculoskeletal: Positive for arthralgias. Neurological: Negative for dizziness, light-headedness and headaches. BP 126/78 Pulse 67 Temp 98.1 Resp 17 Ht 5' 10" (1.78m) Wt 254 lb (115.2kg) SpO2 96% BMI 36.45 kg/(m2). Physical Exam Vitals and nursing note reviewed. Constitutional: Appearance: He is obese. Cardiovascular: Rate and Rhythm: Normal rate and regular rhythm. Heart sounds: Normal heart sounds. Pulmonary: Breath sounds: Normal breath sounds. Skin: General: Skin is warm and dry. Neurological: Mental Status: He is alert and oriented to person, place, and time. Psychiatric: Mood and Affect: Mood normal. Behavior: Behavior normal. ASSESSMENT/PLAN: 1. Hypertension, essential - ICD9: 401.9, ICD10: I10 (primary diagnosis) - Controlled - Continue current (more content not included)...[facility] 12-13-2023 NoteHNO ID: [id number] Author: TORY GRAHAM PT Service: ? Author Type: Physical Therapist Type: Progress Notes Filed: 12/13/2023 10:39 Note Text: Episode Visit Count: 4 Therapist That Will Accept/Oversee The Plan Of Care: Troy Graham PT Start of Care Date: 11/08/23 Onset Date: 09/18/23 Plan of Care Certification Date: ((NOT NEEDED)) Next Certification Due Date: ((NOT NEEDED)) Patient Identified by Name and Date of : Yes REHABILITATION AND SPORTS THERAPY PHYSICAL THERAPY TREATMENT NOTE ASSESSMENT: Ruddy Ruvalcaba tolerated the session with expected muscle soreness. He demonstrated improvements in activity tolerance today. The patient will continue to benefit from ongoing skilled physical therapy to progress toward set goals and to continue with post-operative protocol. PLAN FOR NEXT VISIT: Continue progressing strength as tolerated. SUBJECTIVE: No infection in the L Knee; reports surgeon team saying possible typical post-op pain and a result of RSD in LLE. Discussing with Dr. Delgado having revision on R Knee. Still dealing with pain and swelling in the L per report, however better. Pain: Pain Pain Level: 8 Pain Location: Knee - Left Description: Aching Frequency: Continuous Post Treatment Pain Post Treatment Pain Location: Knee - Left Post Treatment Pain Description: Sore OBJECTIVE MEASURES WITH LEVEL OF FUNCTION: LE AROM L Knee Flexion: 118 Degrees TREATMENT: Therapeutic Exercise: 1: Upright Stationary Bike: Seat Height 12. Unable to complete for 5 min due to pain in the R/Uninvolved Knee. (Direct 1:1 and subjective taken.) 2: L Knee AAROM Heel Slides: 3x10, 1-2" holds. 3: L SLR: 3x10. 4: L LAQ: 3x10. 5#cuff. 5: TRX Squats to Pain-Free Range: 6: L FWD StepUps: 2x10. Skilled Intervention: Patient was educated in proper exercise technique and purpose for exercises. Skilled judgment was used in selection of appropriate interventions. Correct performance of therapeutic exercises was facilitated with verbal cuing. Billing Therapeutic Exercise Treatment Minutes: 33 Skilled Treatment Time Minutes (timed and untimed codes): 33 Total Session Time (minutes): 33 Session Start Time : 1000 Session Stop Time : 1033 Troy Graham [facility]09-25-2024 History of Present illness Narrative* Troy Graham PT - 12/13/2023 10:01 AM EDT Episode Visit Count: 4 Therapist That Will Accept/Oversee The Plan Of Care: Troy Graham PT Start of Care Date: 11/08/23 Onset Date: 09/18/23 Plan of Care Certification Date: ((NOT NEEDED)) Next Certification Due Date: ((NOT NEEDED)) Patient Identified by Name and Date of : Yes REHABILITATION AND SPORTS THERAPY PHYSICAL THERAPY TREATMENT NOTE ASSESSMENT: Ruddy Ruvalcaba tolerated the session with expected muscle soreness. He demonstrated improvements in activity tolerance today. The patient will continue to benefit from ongoing skilled physical therapy to progress toward set goals and to continue with post-operative protocol. PLAN FOR NEXT VISIT: Continue progressing strength as tolerated. SUBJECTIVE: No infection in the L Knee; reports surgeon team saying possible typical post-op pain and a result of RSD in LLE. Discussing with Dr. Delgado having revision on R Knee. Still dealing with pain and swelling in the L per report, however better. Pain: Pain Pain Level: 8 Pain Location: Knee - Left Description: Aching Frequency: Continuous Post Treatment Pain Post Treatment Pain Location: Knee - Left Post Treatment Pain Description: Sore OBJECTIVE MEASURES WITH LEVEL OF FUNCTION: LE AROM L Knee Flexion: 118 Degrees TREATMENT: Therapeutic Exercise: 1: Upright Stationary Bike: Seat Height 12. Unable to complete for 5 min due to pain in the R/Uninvolved Knee. (Direct 1:1 and subjective taken.) 2: L Knee AAROM Heel Slides: 3x10, 1-2" holds. 3: L SLR: 3x10. 4: L LAQ: 3x10. 5#cuff. 5: TRX Squats to Pain-Free Range: 6: L FWD StepUps: 2x10. Skilled Intervention: Patient was educated in proper exercise technique and purpose for exercises. Skilled judgment was used in selection of appropriate interventions. Correct performance of therapeutic exercises was facilitated with verbal cuing. Billing Therapeutic Exercise Treatment Minutes: 33 Skilled Treatment Time Minutes (timed and untimed codes): 33 Total Session Time (minutes): 33 Session Start Time : 1000 Session Stop Time : 1033 Troy Graham PT documented [facility] NoteHNO ID: [id number] Author: COREY BAUGH PT Service: ? Author Type: Physical Therapist Type: Progress Notes Filed: 12/07/2023 13:11 Note Text: Episode Visit Count: 3 Therapist That Will Accept/Oversee The Plan Of Care: Troy Graham PT Start of Care Date: 11/08/23 Onset Date: 09/18/23 Plan of Care Certification Date: ((NOT NEEDED)) Next Certification Due Date: ((NOT NEEDED)) Patient Identified by Name and Date of : Yes REHABILITATION AND SPORTS THERAPY PHYSICAL THERAPY TREATMENT NOTE ASSESSMENT: Ruddy Ruvalcaba tolerated the session with fatigue and expected muscle soreness. He demonstrated improvements in L knee extension, despite increased swelling . The patient will continue to benefit from ongoing skilled physical therapy to progress toward set goals. PLAN FOR NEXT VISIT: Consider light strengthening as tolerated and continue with ROM of L knee. SUBJECTIVE: Pt states that he had an aspiration yesterday. No infection orgout found from the aspiration. Pain: Pain Pain Level: 10 Pain Location: Knee - Left Description: Aching, Throbbing (pounding) Frequency: Continuous Post Treatment Pain Post Treatment Pain Location: Knee - Left Post Treatment Symptoms: "It hurts" OBJECTIVE MEASURES WITH LEVEL OF FUNCTION: LE AROM L Knee Extension: 0 Degrees L Knee Flexion: 105 Degrees TREATMENT: Therapeutic Exercise: 1: Sci-Fit: Level 0.0, 5 Min. (1:1 throughout. Discussed results from aspiration yesterday.) 2: Quad sets x10 (irritated spot where needle was inserted for aspiration, so discontinued) 3: Seated heel slides 3x10 Skilled Intervention: Patient was educated in proper exercise technique and purpose for exercises. Skilled judgment was used in selection of appropriate interventions. Correct performance of therapeutic exercises was facilitated with verbal and visual cuing. Manual Therapy: 1: Superficial effleurage over LLE x 14 minutes with BLE elevated on 2 wedges Skilled Intervention: Manual skills to improve joint mobility, ROM, and decrease pain. Utilized anatomy knowledge of the therapist, and assessment of patient's response to intervention. Billing Therapeutic Exercise Treatment Minutes: 22 Manual TherapyTreatment Minutes: 14 Skilled Treatment Time Minutes (timed and untimed codes): 36 Total Session Time (minutes): 36 Session Start Time : 1007 Session Stop Time : 1043 Sandy Jetertrung, FIN[employer]CIAL [employer]PERATIONS CONSULTANT Corey Baugh, [facility]09-19-2024 History of Present illness Narrative* David Baughn, PT - 12/07/2023 10:08 AM EDT Episode Visit Count: 3 Therapist That Will Accept/Oversee The Plan Of Care: Troy Graham, PT Start of Care Date: 11/08/23 Onset Date: 09/18/23 Plan of Care Certification Date: ((NOT NEEDED)) Next Certification Due Date: ((NOT NEEDED)) Patient Identified by Name and Date of : Yes REHABILITATION AND SPORTS THERAPY PHYSICAL THERAPY TREATMENT NOTE ASSESSMENT: Ruddy Ruvalcaba tolerated the session with fatigue and expected muscle soreness. He demonstrated improvements in L knee extension, despite increased swelling . The patient will continue to benefit from ongoing skilled physical therapy to progress toward set goals. PLAN FOR NEXT VISIT: Consider light strengthening as tolerated and continue with ROM of L knee. SUBJECTIVE: Pt states that he had an aspiration yesterday. No infection orgout found from the aspiration. Pain: Pain Pain Level: 10 Pain Location: Knee - Left Description: Aching, Throbbing (pounding) Frequency: Continuous Post Treatment Pain Post Treatment Pain Location: Knee - Left Post Treatment Symptoms: "It hurts" OBJECTIVE MEASURES WITH LEVEL OF FUNCTION: LE AROM L Knee Extension: 0 Degrees L Knee Flexion: 105 Degrees TREATMENT: Therapeutic Exercise: 1: Sci-Fit: Level 0.0, 5 Min. (1:1 throughout. Discussed results from aspiration yesterday.) 2: Quad sets x10 (irritated spot where needle was inserted for aspiration, so discontinued) 3: Seated heel slides 3x10 Skilled Intervention: Patient was educated in proper exercise technique and purpose for exercises. Skilled judgment was used in selection of appropriate interventions. Correct performance of therapeutic exercises was facilitated with verbal and visual cuing. Manual Therapy: 1: Superficial effleurage over LLE x 14 minutes with BLE elevated on 2 wedges Skilled Intervention: Manual skills to improve joint mobility, ROM, and decrease pain. Utilized anatomy knowledge of the therapist, and assessment of patient's response to intervention. Billing Therapeutic Exercise Treatment Minutes: 22 Manual TherapyTreatment Minutes: 14 Skilled Treatment Time Minutes (timed and untimed codes): 36 Total Session Time (minutes): 36 Session Start Time : 1006 Session Stop Time : 104 Sandy Jetertrung, MIGUEL Baugh PT documented in this encounterBet[facility] NoteHNO ID: [id number] Author: TROY GRAHAM PT Service: ? Author Type: Physical Therapist Type: Progress Notes Filed: 11/30/2023 10:41 Note Text: Episode Visit Count: 2 Therapist That Will Accept/Oversee The Plan Of Care: Troy Graham PT Start of Care Date: 11/08/23 Onset Date: 09/18/23 Plan of Care Certification Date: ((NOT NEEDED)) Next Certification Due Date: ((NOT NEEDED)) Patient Identified by Name and Date of : Yes REHABILITATION AND SPORTS THERAPY PHYSICAL THERAPY TREATMENT NOTE ASSESSMENT: Ruddy Ruvalcaba tolerated the session with continued pain throughout. He demonstrated no issue with Sci-Fit, and other interventions completed this date. Slight increase in symptoms following.The patient will continue to benefit from ongoing skilled physical therapy to progress toward set goals and to continue with post-operative protocol. PLAN FOR NEXT VISIT: Patella Mobs, Soft tissue work, possible effleurage. Exercises as tolerated. SUBJECTIVE: Patient coming in for 2nd visit/1 tx session; has been dealing with Gross severe pain in the L Knee. Has seen Dr. Delgado office multiple times in the last couple of weeks. So far all infection testing is negative. Upcoming aspiration on 12/06/23.. Dr. Delgado stated to patient to trial therapy/"give it a shot" and see what he can tolerate. Dr. Delgado thinks it may be gout per patient. Patient arrives on no AD. Pain: Pain Pain Level: 10 Pain Location: Knee - Left Description: Aching Frequency: Continuous Post Treatment Pain Post Treatment Pain Level: Worse Post Treatment Pain Location: Knee - Left OBJECTIVE MEASURES WITH LEVEL OF FUNCTION: Knee Observations L Swelling: Continued moderate swelling in the involved Left Knee. R Circumference 6 inches above mid-patella (inches): 20.5 inches R Circumference mid patella (inches): 16 inches R Circumference 6 inches below mid-patella (inches): 15.5 inches L Circumference 6 inches above mid-patella (inches): 20 inches L Circumference mid patella (inches): 17.5 inches L Circumference 6 inches below mid-patella (inches): 14.25 inches Comments: Gross Tenderness around the L Knee. LE AROM L Knee Extension: -2 Degrees TREATMENT: Therapeutic Exercise: 1: Sci-Fit: Level 0.0, 5 Min. (Used for Warmup, hip and knee motion, subjective taken.) 2: LLLD Knee Ext Stretch: No weight, 5 Min, ankle propped. 3: *Discussed HEP completion as tolerated. Skilled Intervention: Patient was educated in proper exercise technique and purpose for exercises. Skilled judgment was used in selection of appropriate interventions. Patient education as noted. Manual Therapy: 1: STM AND CFM with hands to distalLeft quadriceps group: push to tolerance. 2: 4-Way Patella Mobs to tolerance. Skilled Intervention: Manual skills to improve joint mobility, ROM, and decrease pain. Utilized anatomy knowledge of the therapist, and assessment of patient's response to intervention. Billing Therapeutic Exercise Treatment Minutes: 10 Manual TherapyTreatment Minutes: 15 Skilled Treatment Time Minutes (timed and untimed codes): 25 Total Session Time (minutes): 25 Session Start Time : 1000 Session Stop Time : 1025 Troy Graham [facility]09-12-2024 History of Present illness Narrative* Troy Graham, PT - 11/30/2023 9:52 AM EDT Episode Visit Count: 2 Therapist That Will Accept/Oversee The Plan Of Care: Troy Graham PT Start of Care Date: 11/08/23 Onset Date: 09/18/23 Plan of Care Certification Date: ((NOT NEEDED)) Next Certification Due Date: ((NOT NEEDED)) Patient Identified by Name and Date of : Yes REHABILITATION AND SPORTS THERAPY PHYSICAL THERAPY TREATMENT NOTE ASSESSMENT: Ruddy Ruvalcaba tolerated the session with continued pain throughout. He demonstrated no issue with Sci-Fit, and other interventions completed this date. Slight increase in symptoms following.The patient will continue to benefit from ongoing skilled physical therapy to progress toward set goals and to continue with post-operative protocol. PLAN FOR NEXT VISIT: Patella Mobs, Soft tissue work, possible effleurage. Exercises as tolerated. SUBJECTIVE: Patient coming in for 2nd visit/1 tx session; has been dealing with Gross severe pain in the L Knee. Has seen Dr. Delgado office multiple times in the last couple of weeks. So far all infection testing is negative. Upcoming aspiration on 12/06/23.. Dr. Delgado stated to patient to trial therapy/"give it a shot" and see what he can tolerate. Dr. Delgado thinks it may be gout per patient. Patient arrives on no AD. Pain: Pain Pain Level: 10 Pain Location: Knee - Left Description: Aching Frequency: Continuous Post Treatment Pain Post Treatment Pain Level: Worse Post Treatment Pain Location: Knee - Left OBJECTIVE MEASURES WITH LEVEL OF FUNCTION: Knee Observations L Swelling: Continued moderate swelling in the involved Left Knee. R Circumference 6 inches above mid-patella (inches): 20.5 inches R Circumference mid patella (inches): 16 inches R Circumference 6 inches below mid-patella (inches): 15.5 inches L Circumference 6 inches above mid-patella (inches): 20 inches L Circumference mid patella (inches): 17.5 inches L Circumference 6 inches below mid-patella (inches): 14.25 inches Comments: Gross Tenderness around the L Knee. LE AROM L Knee Extension: -2 Degrees TREATMENT: Therapeutic Exercise: 1: Sci-Fit: Level 0.0, 5 Min. (Used for Warmup, hip and knee motion, subjective taken.) 2: LLLD Knee Ext Stretch: No weight, 5 Min, ankle propped. 3: *Discussed HEP completion as tolerated. Skilled Intervention: Patient was educated in proper exercise technique and purpose for exercises. Skilled judgment was used in selection of appropriate interventions. Patient education as noted. Manual Therapy: 1: STM & CFM with hands to distalLeft quadriceps group: push to tolerance. 2: 4-Way Patella Mobs to tolerance. Skilled Intervention: Manual skills to improve joint mobility, ROM, and decrease pain. Utilized anatomy knowledge of the therapist, and assessment of patient's response to intervention. Billing Therapeutic Exercise Treatment Minutes: 10 Manual TherapyTreatment Minutes: 15 Skilled Treatment Time Minutes (timed and untimed codes): 25 Total Session Time (minutes): 25 Session Start Time : 1000 Session Stop Time : 1025 Troy Graham PT documented in this encounterBet[facility]09-10-[facility]24 NoteHNO ID: [id number] Author: HEATH DELGADO MD Service: ? Author Type: Physician Type: Progress Notes Filed: 11/28/2023 14:23 Note Text: This is follow-up for Ruddy. He is having persistent pain after knee replacement. Previous aspiration in the office was dry. ESR and CRP are elevated but downtrending. Nevertheless they are beyond what we would normally expect at this time point. We have discussed another aspiration and he would really prefer to have this done radiology guided. I have placed the orders today. He will follow-up afterwards. All questions were answered. Repeat imaging today demonstrates well-appearing knee replacement. Heath Delgado [facility] History of Present illness Narrative* Heath Delgado MD - 11/28/2023 1:20 PM EDT This is follow-up for Ruddy. He is having persistent pain after knee replacement. Previous aspiration in the office was dry. ESR and CRP are elevated but downtrending. Nevertheless they are beyond what we would normally expect at this time point. We have discussed another aspiration and he would really prefer to have this done radiology guided. I have placed the orders today. He will follow-up afterwards. All questions were answered. Repeat imaging today demonstrates well-appearing knee replacement. Heath Delgado MD Orthopaedic Surgery documented in this encounterBethesda [facility] Hospital09-10-2024 History of Present illness Narrative* Agnes Luong RT(R) - 11/28/2023 1:00 PM EDT Radiology Service Progress Note PATIENT NAME: Ruddy Ruvalcaba DATE OF SERVICE: November 28, 2023 TIME: 1:13 PM PATIENT IDENTITY VERIFICATION COMPLETED USING TWO (2) IDENTIFIERS: Name and Date of confirmedby patient verbally. FALL SCREENING: Has the patient had 2 falls in the last year or 1 fall with injury or currently using an Ambulatory Assistive Device (Walker, Cane, Wheelchair, Crutches, etc.)? No PATIENT GENDER DATA: Male PATIENT RELEVANT IMPLANT DATA REVIEWED: Not Applicable PATIENT PRESENTS WITH AN IMPLANTABLE OR ATTACHED TIRE DUSTER: No RADIOLOGY DEPARTMENT: General X-ray: Exam(s) Completed: Lower Extremity X- Ray(s): Knee, AP / Lat / Merchant Bilateral and Wt. Bearing PERIPHERAL IV DATA: Not applicable SIGNED BY: RT Bipin(Obinna) November 28, 2023 1:13 PM documented in this encounterBethesda North Hospital09-10-2024 NoteHNO ID: [id number] Author: AGNES LUONG RT(R) Service: ? Author Type: Technologist Type: Progress Notes Filed: 11/28/2023 13:13 Note Text: Radiology Service Progress Note PATIENT NAME: Ruddy Ruvalcaba DATE OF SERVICE: November 28, 2023 TIME: 1:13 PM PATIENT IDENTITY VERIFICATION COMPLETED USING TWO (2) IDENTIFIERS: Name and Date of confirmed by patient verbally. FALL SCREENING: Has the patient had 2 falls in the last year or 1 fall with injury or currently using an Ambulatory Assistive Device (Walker, Cane, Wheelchair, Crutches, etc.)? No PATIENT GENDER DATA: Male PATIENT RELEVANT IMPLANT DATA REVIEWED: Not Applicable PATIENT PRESENTS WITH AN IMPLANTABLE OR ATTACHED TIRE DUSTER: No RADIOLOGY DEPARTMENT: General X-ray: Exam(s) Completed: Lower Extremity X-Ray(s): Knee, AP / Lat / Merchant Bilateral and Wt. Bearing PERIPHERAL IV DATA: Not applicable SIGNED BY: RT Bipin(Obinna) November 28, 2023 1:13 PMSelect [facility], [id number] NoteHNO ID: [id number] Author: HEATH DELGADO MD Service: ? Author Type: Physician Type: Progress Notes Filed: 11/23/2023 12:21 Note Text: This is an early follow-up for Ruddy. Noah aspirated him at his last appointment, cultures with no growth, minimal fluid. Came in for this appointment based on complaints of swelling and pain. On physical examination has a moderate effusion, no erythema, and normal increased warmth for this stage out from surgery. His range of motion is beyond 90 degrees. He does have allodynic pain to light touch about the knee throughout. He does have an antalgic gait. X-rays did not demonstrate any acute pathology at last appointment. I will repeat inflammatory markers today, he does not want me to repeat an aspiration and less elevated uptrending. Radiology based aspiration if the numbers are not coming down. Repeat x-rays and seeing me again next week. All questions answered and red flag symptoms discussed Heath Delgado MD [facility] History of Present illness Narrative* Heath Delgado MD - 11/23/2023 10:16 AM EDT This is an early follow-up for Ruddy. Noah aspirated him at his last appointment, cultures withno growth, minimal fluid. Came in for this appointment based on complaints of swelling and pain. Onphysical examination has a moderate effusion, no erythema, and normal increased warmth for this stage out from surgery. His range of motion is beyond 90 degrees. He does have allodynic pain to light touch about the knee throughout. He does have an antalgic gait. X-rays did not demonstrate any acutepathology at last appointment. I will repeat inflammatory markers today, he does not want me to repeat an aspiration and less elevated uptrending. Radiology based aspiration if the numbers are not coming down. Repeat x-rays and seeing me again next week. All questions answered and red flag symptomsdiscussed Heath Delgado MD Orthopaedic Surgery documented in this encounterBethesda [facility] Hospital09-04-2024 Telephone encounter Note * Telephone Encounter - Roxanne Osman - 11/22/2023 4:50 PM EDT Patient schedule with Dr Delgado tomorrow 11/23/2023 Roxanne Osman [facility]09-04-20[facility] Miscellaneous Notes* Telephone Encounter - Roxanne Osman - 11/22/2023 4:50 PM EDT Patient schedule with Dr Delgado tomorrow 11/23/2023 Roxanne Osman documented in this encounterBethesda North Hospital08-26-2024 NoteHNO ID: [id number] Author: NOAH DE ANDA APRN.AINSLEY Service: ? Author Type: Nurse Practitioner Type: Progress Notes Filed: 11/14/2023 08:34 Note Text: Justice presents today for acute visit - aspiration left knee per our request. Obtained inflammatory markers last week and were elevated (CRP: 3.5, sed rate 37). Went to ER for increased pain, swelling and chills. Large Joint Arthro/Inj: L knee joint Informed Consent Consent Obtained: Verbal Cactus Protocol A moment to CARE was completed. SIGN IN Personnel directly involved with the procedure wore the appropriate PPE. Special Equipment: Yes Patient/Surrogate Stated/Verified: Patient name, Date of , Relevant allergies and Intended procedure TIME OUT Intended patient and procedure match the source document(s). Consent documented and matches the intended procedure. Relevant labs, photos, and/or imaging studies have been reviewed. Correct side/site marked and visible. Medications required for procedure verified. Fire risk assessed and interventions discussed. No implant(s) inserted. 11/13/2023 11:44 AM The procedure site was prepped in the usual sterile fashion. Site: L knee joint Aspirate: 2 mL bloody; sent for lab analysis Outcome: Tolerated well, no immediate complications Post-injection instructions were reviewed with the patient and the patient voiced understanding of these instructions. SIGN OUT All specimen containers correctly labeled. All instruments, equipment, possible retained foreign bodies accounted for. Post-procedure follow-up management communicated and Plan of Care Visit completed when applicable Will contact after labs resulted. May need repeat aspiration under radiology due to amount of fluid obtained. Noah De Anda APRN.CNP [facility]08-26-2024 History of Present illness Narrative* Noah De Anda APRN.CNP - 11/13/2023 11:43 AM EDTAssociated Order(s): Large Joint Arthro/Inj: L knee joint Post-Procedure Diagnose(s): Pain due to total left knee replacement, initial encounter (HCC) Justice presents today for acute visit - aspiration left knee per our request. Obtained inflammatory markers last week and were elevated (CRP: 3.5, sed rate 37). Went to ER for increased pain, swelling and chills. Large Joint Arthro/Inj: L knee joint Informed Consent Consent Obtained: Verbal Cactus Protocol A moment to CARE was completed. SIGN IN Personnel directly involved with the procedure wore the appropriate PPE. Special Equipment: Yes Patient/Surrogate Stated/Verified: Patient name, Date of , Relevant allergies and Intended procedure TIME OUT Intended patient and procedure match the source document(s). Consent documented and matches the intended procedure. Relevant labs, photos, and/or imaging studies have been reviewed. Correct side/site marked and visible. Medications required for procedure verified. Fire risk assessed and interventions discussed. No implant(s) inserted. 11/13/2023 11:44 AM The procedure site was prepped in the usual sterile fashion. Site: L knee joint Aspirate: 2 mL bloody; sent for lab analysis Outcome: Tolerated well, no immediate complications Post-injection instructions were reviewed with the patient and the patient voiced understanding of these instructions. SIGN OUT All specimen containers correctly labeled. All instruments, equipment, possible retained foreign bodies accounted for. Post-procedure follow-up management communicated and Plan of Care Visit completed when applicable Will contact after labs resulted. May need repeat aspiration under radiology due to amount of fluidobtained. Noah De Anda APRN.[facility] Orthopaedic Surgery documented in this encounterBethesda North Hospital08-21-2024 History of Present illness Narrative* Troy Graham, PT - 11/08/2023 11:18 AM EDT Program_ID:[id number] Access Code: [email or web address] URL: [email or web address] Date: 11-08-2023 Prepared By: Troy Graham Program Notes Exercises - Knee Flexion Step - 2 x daily - 7 x weekly - 2 sets - 10-15 reps - Supine Heel Slide with Strap - 2 x daily - 7 x weekly - 2-3 sets - 10-15 reps - Seated Passive Knee Extension with Weight - 1-2 x daily - 7 x weekly - 1-2 sets - reps - Active Straight Leg Raise with Quad Set - 2 x daily - 7 x weekly - 2-3 sets - 10 reps - Standing Heel Raises - 2 x daily - 7 x weekly - 2-3 sets - 10-12 reps - Hip ABDuction - 2 x daily - 7 x weekly - 2 sets - 10 reps * Troy Graham, PT - 11/08/2023 10:45 AM EDT Images from the original note were not included. Episode Visit Count: 1 Therapist That Will Accept/Oversee The Plan Of Care: Troy Graham PT Start of Care Date: 11/08/23 Onset Date: 09/18/23 Plan of Care Certification Date: ((NOT NEEDED)) Next Certification Due Date: ((NOT NEEDED)) Patient Identified by Name and Date of : Yes REHABILITATION AND SPORTS THERAPY PHYSICAL THERAPY EVALUATION PLAN OF CARE: Assessment: Ruddy Ruvalcaba presents 51 days status-post L TKA that interferes with working, stairnegotiation, walking in the community, bending, lifting, heavy exertion, kneeling, squatting, weight bearing, sleeping, rising from a chair . Possible infection in the L Knee - Dr. Delgado is sending patient for lab work following this appointment. He presents with impairments in ADL's, gait, independence in exercise, overall function, range of motion, soft tissue healing, strength, symptom management, and tissue tenderness. PROMIS (Patient-Reported Outcomes Measurement Information System) scores were reviewed and identified as a rehabilitation concern. Prognosis for therapy is Good due to: good overall health status, acuteness of condition, positive past response to therapy, within-session changes, good support system/ coping skills, Prognosis may be limited due to clinical presentation (Current Possible L TKA Infection.) . He will benefit from skilled therapy services to meet the goals established for this plan of care as noted below. Goals for Episode of Care: created on 11/08/23 through 01/17/24 Patient reported outcome of physical function will increase T-score by a minimum 5 points. Ben Bolt in home exercise program. Patient will decrease pain rating by 2 points to meet minimal clinical important difference for numeric pain rating scale. Patient will be able to return prolonged walking without pain. Demo Left lower extremity strength at 5/5 on MMT for improved ADL/IADLs. Patient will increase L Knee AROM to 0-130 for improved gait mechanics and physical function. Patient Goals: Golfing. Planned Interventions, Frequency, and Duration: Current Frequency: 2x/week Duration: 6 weeks Total Number of Visits Planned: 12 Planned Treatment Interventions: Therapeutic exercise (81768), Neuromuscular re- education (10745), Manual therapy (27453), Therapeutic activities (72815), Self- [place] [facility] [place] management (42558), Gait Training (73852), Patient/Family/Caregiver Education PLAN FOR NEXT VISIT: Assess infection status following lab work; assess HEP, begin exercises as tolerated and able. Patient demonstrates good understanding of plan of care and treatment. The above goals and plan of care were discussed and agreed upon by patient/family. SUBJECTIVE: Patient had L TKA on 09/18/23. Left Knee with post-traumatic OA. HHPT went good, was on FWW and cane,and has been off AD for awhile now. Only now getting into Outpatient PT due to schedule delays. Thelast two weeks patient has had unbearable pain, trouble with ROM & WB and increased swelling. Worse the last two days. Patient sent photos to Dr. Delgado and his office is sending the patient to get lab work for possible infection. RSD in LLE for last 20 years. R TKA on 11/[address] Delgado wanting to do revision on R Knee. Patient Goals: [employer]. 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 Intake Information: Prescription present Falls Interview: No positive findings with falls interview Pain: Pain Pain Level: 10 Pain Location: Knee - Left Description: Aching, Pressure, Throbbing Frequency: Continuous Post Treatment Pain Post Treatment Pain Level: No Change PROMIS Scales 11/08/2023 11/28/2021 Higher is Better Phys Func - Score 44 (mild dysfunction) 35 (moderate dysfunction) Phys Func - Percentile 27 7 Self-Eff Symptom - Score 47 (Average) 39 (Low) Self-Eff Symptom - Percentile 38 14 T-scores: mean of general population = 50. 5 points is clinically meaningfully difference Percentiles provide an indication of how the patient's score ranks in relation to the general population. Higher percentile rankings indicate better function/quality of life. 50th percentile is the average of the general population and indicates half of respondents had a worse score. OBJECTIVE MEASURES WITH LEVEL OF FUNCTION: Knee Observations L Knee Presents with: Swelling, Warmth L Swelling: Moderate around the L Knee. 2.25 inches bigger compared to contralateral at mid patella. Light warmth compared to contralateral. R Circumference 6 inches above mid-patella (inches): 20.75 inches R Circumference mid patella (inches): 15.5 inches R Circumference 6 inches below mid-patella (inches): 15 inches L Circumference 6 inches above mid-patella (inches): 20 inches L Circumference mid patella (inches): 17.75 inches L Circumference 6 inches below mid-patella (inches): 14 inches L Knee Palpation Tenderness: Comments Comments: Gross Tenderness around the L Knee. LE AROM L LE AROM: Grossly limited due to higher pain in the L Knee. R Knee Extension: -2 Degrees R Knee Flexion: 115 Degrees L Knee Extension: 10 Degrees L Knee Flexion: 105 Degrees LE Joint Mobility R Patellar Mobility: WNL L Patellar Mobility: WNL LE Strength L LE Strength: Grossly limited due to high pain currently; will reassess at a later date. DVT Screening/Testing Screening/Testing: Cl [place] Paralysis, paresis or recent orthopedic casting of lower extremity: No Recently bedridden (more than 3 days) or major surgery within past 4 weeks: No Localized tenderness in deep vein system : No Swelling of entire leg: No Calf swelling 3 cm greater than other leg (measured 10 cm below tibial tuberosity): No Pitting edema greater in the symptomatic leg : Yes Collateral non varicose superficial veins: No Active cancer or cancer treated within 6 months: No Alternative diagnosis more likely than DVT : Yes Wells Score System: -1 Gait Weight Bearing Status: FWB Gait: Independent Gait Observation: No AD; patient with moderate antalgic gait due to L Knee Pain. Decreased stance time on the L Knee. Education: Education Learning Preferences: Demonstration, Explanation, Performance Barriers: None Learning/educational needs: Plan of Care, Home exercise program, Posture, Gait Training, Safety, Crutch Training, Body Mechanics Education Provided: Yes, see treatment interventions for education provided Education Provided To: Patient Education Mode/Type: Demonstration, Explanation/Discussion, Literature/Printed Materials Response to Education/Teach Back: States/Identifies TREATMENT: PT Treatment Interventions: Therapeutic Exercise Evaluation Therapeutic Exercise: 1: Discussed HEP in detail today, however deferred completion due to possible L Knee Infection. Exercises sent for HEP/on Handout as follows (Supine L Heel Slides AAROM, L Stair Bend/Flexion, LLLD Knee Ext Stretch, SLR, LAQ, Hip ABD, Calf Raises). 2: Patient educated on short exam findings, rehabilitation process, timeframe for goals. Discussed scheduling and POC moving forward. 3: Discussed knee infection symptoms and deficits resulting from. Skilled Intervention: Patient was educated in proper exercise technique and purpose for exercises. Reviewed and educated patient on additions/changes for home exercise program as above (*). Skilled judgment was used in selection of appropriate interventions. Provided written instruction for home exercise program to facilitate proper performance and compliance. Billing * Evaluation Low Complexity: 1 Unit Therapeutic Exercise Treatment Minutes: 10 Skilled Treatment Time Minutes (timed and untimed codes): 35 Total Session Time (minutes): 30 Session Start Time : 1045 Session Stop Time : 1115 Troy Graham PT documented in this encounterBethesda North Hospital08-21-2024 NoteHNO ID: [id number] Author: TROY GRAHAM PT Service: ? Author Type: Physical Therapist Type: Progress Notes Filed: 11/08/2023 13:01 Note Text: Episode Visit Count: 1 Therapist That Will Accept/Oversee The Plan Of Care: Troy Graham PT Start of Care Date: 11/08/23 Onset Date: 09/18/23 Plan of Care Certification Date: ((NOT NEEDED)) Next Certification Due Date: ((NOT NEEDED)) Patient Identified by Name and Date of : Yes REHABILITATION AND SPORTS THERAPY PHYSICAL THERAPY EVALUATION PLAN OF CARE: Assessment: Ruddy Ruvalcaba presents 51 days status-post L TKA that interferes with working, stair negotiation, walking in the community, bending, lifting, heavy exertion, kneeling, squatting, weight bearing, sleeping, rising from a chair . Possible infection in the L Knee - Dr. Delgado is sending patient for lab work following this appointment. He presents with impairments in ADL's, gait, independence in exercise, overall function, range of motion, soft tissue healing, strength, symptom management, and tissue tenderness. PROMIS? (Patient-Reported Outcomes Measurement Information System) scores were reviewed and identified as a rehabilitation concern. Prognosis for therapy is Good due to: good overall health status, acuteness of condition, positive past response to therapy, within-session changes, good support system/ coping skills, Prognosis may be limited due to clinical presentation (Current Possible L TKA Infection.) . He will benefit from skilled therapy services to meet the goals established for this plan of care as noted below. Goals for Episode of Care: created on 11/08/23 through 01/17/24 Patient reported outcome of physical function will increase T-score by a minimum 5 points. Ben Bolt in home exercise program. Patient will decrease pain rating by 2 points to meet minimal clinical important difference for numeric pain rating scale. Patient will be able to return prolonged walking without pain. Demo Left lower extremity strength at 5/5 on MMT for improved ADL/IADLs. Patient will increase L Knee AROM to 0-130 for improved gait mechanics and physical function. Patient Goals: Golfing. Planned Interventions, Frequency, and Duration: Current Frequency: 2x/week Duration: 6 weeks Total Number of Visits Planned: 12 Planned Treatment Interventions: Therapeutic exercise (62912), Neuromuscular re-education (00301), Manual therapy (02067), Therapeutic activities (41033), Self-[place] [facility] [place] management (57602), Gait Training (71420), Patient/Family/Caregiver Education PLAN FOR NEXT VISIT: Assess infection status following lab work; assess HEP, begin exercises as tolerated and able. Patient demonstrates good understanding of plan of care and treatment. The above goals and plan of care were discussed and agreed upon by patient/family. SUBJECTIVE: Patient had L TKA on 09/18/23. Left Knee with post-traumatic OA. HHPT went good, was on FWW and cane, and has been off AD for awhile now. Only now getting into Outpatient PT due to schedule delays. The last two weeks patient has had unbearable pain, trouble with ROM AND WB and increased swelling. Worse the last two days. Patient sent photos to Dr. Delgado and his office is sending the patient to get lab work for possible infection. RSD in LLE for last 20 years. R TKA on 11/[address] Delgado wanting to do revision on R Knee. Patient Goals: Golfing. 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 Intake Information: Prescription present Falls Interview: No positive findings with falls interview Pain: Pain Pain Level: 10 Pain Location: Knee - Left Description: Aching, Pressure, Throbbing Frequency: Continuous Post Treatment Pain Post Treatment Pain Level: No Change PROMIS Scales 11/08/2023 11/28/2021 Higher is Better Phys Func - Score 44 (mild dysfunction) 35 (moderate dysfunction) Phys Func - Percentile 27 7 Self-Eff Symptom - Score 47 (Average) 39 (Low) Self-Eff Symptom - Percentile 38 14 T-scores: mean of general population = 50. 5 points is clinically meaningfully difference Percentiles provide an indication of how the patient's score ranks in relation to the general population. Higher percentile rankings indicate better function/quality of life. 50th percentile is the average of the general population and indicates half of respondents had a worse score. OBJECTIVE MEASURES WITH LEVEL OF FUNCTION: Knee Observations L Knee Presents with: Swelling, Warmth L Swelling: Moderate around the L Knee. 2.25 inches bigger compared to contralateral at mid patella. Light warmth compared to cont (more content not included)...[facility]08-09-2024 Telephone encounter Note* Telephone Encounter - Lindsay Weston - 10/27/2023 10:30 AM EDT Patient called in, is rescheduled for 11/28/23 with , I offered Kyle on 11/07/23, patient wanted to make sure that was to wait that long to see . Please advise. [facility]08-09-2024 Miscellaneous Notes* Telephone Encounter - Lindsay Weston - 10/27/2023 10:30 AM EDT Patient called in, is rescheduled for 11/28/23 with , I offered Kyle on 11/07/23, patient wanted to make sure that was to wait that long to see . Please advise. * Telephone Encounter - Cinthia Multani - 10/27/2023 10:17 AM EDT Lvm for patient to call back and reschedule appointment on 11/07/2023 can be scheduled with Heath Delgado or Noah De Anda. documented in this encounterBethesda North Hospital08-09-2024 Telephone encounter Note * Telephone Encounter - Cinthia Multani - 10/27/2023 10:17 AM EDT Lvm for patient to call back and reschedule appointment on 11/07/2023 can be scheduled with Heath Delgado or Noah De Anda. [facility]08-[facility] Telephone encounter Note* Telephone Encounter - Froylan Gold - 10/27/2023 10:01 AM EDT LVM/MC Message. Pt scheduled for 02/09/2024 at 2:00pm [facility]08-09-[facility] Miscellaneous Notes* Telephone Encounter - Froylan Gold - 10/27/2023 10:01 AM EDT LVM/MC Message. Pt scheduled for 02/09/2024 at 2:00pm * Telephone Encounter - Ruben Cardoza LPN - 10/27/2023 9:00 AM EDT Last seen 02/03/2023. Message sent to clerical to schedule an overdue follow up Ruben Cardoza LPN documented in this encounterBethesda North Hospital08-09-2024 Telephone encounter Note * Telephone Encounter - Ruben Cardoza LPN - 10/27/2023 9:00 AM EDT Last seen 02/03/2023. Message sent to clerical to schedule an overdue follow up Ruben Cardoza LPN [facility]08-09-2024 Telephone encounter Note* Telephone Encounter - Ruben Angulo LPN - 10/27/2023 8:57 AM EDT Patient's request for medication is as follows: Requested Prescriptions Pending Prescriptions Disp Refills labetalol (TRANDATE) 200 mg tablet 270 tablet 0 Sig: Take 1.5 tablets by mouth three times a day. Last seen 02/03/2023. Message sent to clerical to schedule an overdue follow up Prescription(s) as above. Please process accordingly. Ruben Cardoza LPN [facility]08-09-2024 Miscellaneous Notes* Telephone Encounter - Ruben Angulo LPN - 10/27/2023 8:57 AM EDT Patient's request for medication is as follows: Requested Prescriptions Pending Prescriptions Disp Refills labetalol (TRANDATE) 200 mg tablet 270 tablet 0 Sig: Take 1.5 tablets by mouth three times a day. Last seen 02/03/2023. Message sent to clerical to schedule an overdue follow up Prescription(s) as above. Please process accordingly. Ruben Cardoza LPN documented in this encounterBethesda North Hospital07-26-2024 History of Present illness Narrative* Noah De Anda APRN.[employer] - 10/13/2023 10:19 AM EDT This is an acute postoperative visit for Justice today. He underwent left robotic total knee arthroplasty with Dr. Delgado on 09/18/2023. Surgery went without complication. Recovery has been uneventful other than continued pain reported by the patient. He was last seen by her nurse Bryant on 10/03/2023. Range of motion at that time was 5-90, he reported his pain as 10 out of 10. I prescribed him gabapentin for nerve pain. I had also prescribed a Medrol Dosepak to help with pain. He reports this has not been helping. 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 His is present at the visit today and reports he has been pretty active constantly getting in and out of chair or bed, so swiffering the floor or taking the dogs out. He is here for options for pain control as well as repeat evaluation. Physical exam: Ambulates with a crutch Incision well-approximated, no drainage, no erythema, slight warmth but consistent at this stage Sensitivity to touch medial and anterior aspect Range of motion is 10-95 Stable varus/valgus and anterior/posterior Patella tracks midline Distally DP/PT palpable Distally S/S/SP/DP/T intact at baseline Distally DF/EHL/PF intact at baseline Negative maritza/calf tenderness Assessment and plan: Status post left total knee arthroplasty History of CRPS (RSD) left knee Justice I discussed his left knee today. Physical exam is within normal limits today. I see no concernsfor infection. He does have a history of RSD with his left leg. I do suspect there is a definite nerve component that is contributing to his pain. We also reviewed his postoperative course for his right knee today, this was done by Dr. Laguna in 2021. At 6 weeks postoperatively he was still complaining of pain ranging from a 6-8 out of 10. I did discuss that it is still very normal to have continued pain and stiffness and swelling at 3 weeks postoperatively. I do believe that his RSD/CRPS has been exacerbated. I will discontinue gabapentin and start him on Lyrica. I also prescribed a strongerand longer prednisone taper to see if we can quiet things down. 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 Discussed the importance of taking time to elevate rest and ice minimum 4 times daily for at least 30 to 45 minutes. His only exercises should be focused on flexion and extension only. We will do this for 2 weeks until he comes back to see Dr. Delgado at that time. Oxycodone was refilled today as well he can pick this up Monday. Red warning signs discussed and instructed contact office immediately if he develops any of these. Noah De Anda APRN.[employer] Orthopaedic Surgery ] documented in this encounterBethesda North Hospital07-19-2024 Miscellaneous Notes* PT DISCHARGE - Rosie Phillip, PT - 10/06/2023 10:55 AM EDT SITUATION: only patient present during today's visit. patient reports the following since the last homecare visit: medications/allergies--added gabapentin for pain , no fall. patient reports that the pain has "been terrible" Pt reports that he messaged the surgeon thsi am because he was up "so much las tnightwith shooting pain" . BACKGROUND: Diagnoses (reason for Home Care): LTKR Weight Bearing/Precaution Changes: no changes Weight Bearing/Precaution Changes: no changes ASSESSMENT: Focus of visit: discharge assessment ther ex, gait, balance AROM 8-100* Physical therapy discharged: goals achieved. Functional performance at discharge - bed mobility independent, transfers independent, ambulation independent and stairs independent. Plan of care, goals, and discharge reviewed and agreed upon with patient and/or caregiver. RECOMMENDATION: Patient discharged from PT Instructions to include:begin outpatient therapy on 10/08 See intervention summary for intervention/education details. documented in this encounterBethesda North Hospital07-19-2024 Patient's home Note* PT DISCHARGE - Rosie Phillip, PT - 10/06/2023 10:55 AM EDT SITUATION: only patient present during today's visit. patient reports the following since the last homecare visit: medications/allergies--added gabapentin for pain , no fall. patient reports that the pain has "been terrible" Pt reports that he messaged the surgeon thsi am because he was up "so much las tnightwith shooting pain" . BACKGROUND: Diagnoses (reason for Home Care): LTKR Weight Bearing/Precaution Changes: no changes Weight Bearing/Precaution Changes: no changes ASSESSMENT: Focus of visit: discharge assessment ther ex, gait, balance AROM 8-100* Physical therapy discharged: goals achieved. Functional performance at discharge - bed mobility independent, transfers independent, ambulation independent and stairs independent. Plan of care, goals, and discharge reviewed and agreed upon with patient and/or caregiver. RECOMMENDATION: Patient discharged from PT Instructions to include:begin outpatient therapy on 10/08 See intervention summary for intervention/education details. [facility] Work Phone: [phone]) [phone] History of Present illness Narrative* Bryant Guerrier RN - 10/03/2023 11:03 AM EDT Post-op Office Visit Ruddy Ruvalcaba 53 year old October 03, 2023 11:06 AM Surgery Date: 09/18/23 History: Ruddy Ruvalcaba is now 2 weeks out from left TKA. Post-operative course has been without complication. No readmission/complications Subjective: Patient reports 10/10 pain. Crutch as ambulatory aid Taking opioid pain medication every 6 hours Experiencing a lot of pain with very little relief Objective: Ambulates with a crutch, may transition to no ambulatory aid Incision well-approximated, no drainage, normal liza-incisional erythema ROM 5 - 90 Distally DP/PT palpable Distally S/S/SP/DP/T intact at baseline Distally DF/EHL/PF intact at baseline Negative maritza/calf tenderness Xrays: Well-positioned total knee replacement in appropriate alignment with no evidence of loosening Assessment and Plan: Ruddy Ruvalcaba Is here for a first post-op appointment, overall doing well -continued ice, rest, and use of non-narcotic analgesia as needed -wean off ambulatory aids -discussed home exercises and therapy -WBAT on operative extremity -continue ankle pumps and dvt ppx through 4 weeks -discussed driving requirement: 4 weeks post-op, off narcotic pain medication, adequate brake time -will see back at 6 week appointment for clinical exam -discussed red flag symptoms of acutely increasing pain, new erythema, new swelling, drainage, shortness of breath Bryant Guerrier RN Orthopaedic Surgery documented in this encounterBethesda [facility] Hospital07-16-2024 History of Present illness Narrative* Cindy Rivas Tech - 10/03/2023 10:50 AM EDT Radiology Service Progress Note PATIENT NAME: Ruddy Ruvalcaba DATE OF SERVICE: October 03, 2023 TIME: 10:52 AM PATIENT IDENTITY VERIFICATION COMPLETED USING TWO (2) IDENTIFIERS: Name and Date of confirmedby patient verbally. FALL SCREENING: Has the patient had 2 falls in the last year or 1 fall with injury or currently using an Ambulatory Assistive Device (Walker, Cane, Wheelchair, Crutches, etc.)? No PATIENT GENDER DATA: Male PATIENT RELEVANT IMPLANT DATA REVIEWED: Not Applicable PATIENT PRESENTS WITH AN IMPLANTABLE OR ATTACHED TIRE DUSTER: No RADIOLOGY DEPARTMENT: General X-ray: Exam(s) Completed: Lower Extremity X- Ray(s): Knee, AP / Lat / Merchant Left and Wt. Bearing PERIPHERAL IV DATA: Not applicable SIGNED BY: Olga Lidia Jones October 03, 2023 10:52 AM documented in this encounterBethesda North Hospital07-16-2024 NoteHNO ID: [id number] Author: CINDY RIVAS Tech Service: Radiology Author Type: Photoengraving Proofer Type: Progress Notes Filed: 10/03/2023 10:52 Note Text: Radiology Service Progress Note PATIENT NAME: Ruddy Ruvalcaba DATE OF SERVICE: October 03, 2023 TIME: 10:52 AM PATIENT IDENTITY VERIFICATION COMPLETED USING TWO (2) IDENTIFIERS: Name and Date of confirmed by patient verbally. FALL SCREENING: Has the patient had 2 falls in the last year or 1 fall with injury or currently using an Ambulatory Assistive Device (Walker, Cane, Wheelchair, Crutches, etc.)? No PATIENT GENDER DATA: Male PATIENT RELEVANT IMPLANT DATA REVIEWED: Not Applicable PATIENT PRESENTS WITH AN IMPLANTABLE OR ATTACHED TIRE DUSTER: No RADIOLOGY DEPARTMENT: General X-ray: Exam(s) Completed: Lower Extremity X-Ray(s): Knee, AP / Lat / Merchant Left and Wt. Bearing PERIPHERAL IV DATA: Not applicable SIGNED BY: Olga Lidia Jones October 03, 2023 10:52 AMSelect [facility], [id number] Telephone encounter Note* Telephone Encounter - Rubi Wilson PTA - 10/02/2023 4:13 PM EDT Removed surgical bandage today. No concerns. Picture uploaded to chart. Thanks [facility] Work Phone: 1(382) 313-350407-15-2024 Miscellaneous Notes* Telephone Encounter - Rubi Wilson PTA - 10/02/2023 4:13 PM EDT Removed surgical bandage today. No concerns. Picture uploaded to chart. Thanks documented in this encounterBethesda North Hospital07-15-2024 Miscellaneous Notes* PT ROUTINE/REASSESSMENT/RECERT/CASE MGMT - Rubi Wilson PTA - 10/02/2023 10:02 AM EDT SITUATION: only patient present during today's visit. patient reports the following since the last homecare visit: medications/allergies--no changes, no fall. patient reports he had a horrible night last night.Lots of "shooting pains" in knee. Worried that it is his RSD . BACKGROUND: Diagnoses (reason for Home Care): LTKR Weight Bearing/Precaution Changes: no changes ASSESSMENT: Focus of visit progressed to standing LE strength and ROM exercises. AAROM 8-90. Gait traiinh w/ 1 crutch including stairs to exit home. Scheduled OP PT Plan of care, goals, and visit frequency reviewed and agreed upon with patient and/or caregiver. Current Discharge Plan: outpatient rehab Anticipate discharge by 10/05/23 RECOMMENDATION: Next visit to focus on PT to see for DC See intervention summary for intervention/education details. documented in this encounterBethesda North Hospital07-15-2024 Patient's home Note* HH PT ROUTINE/REASSESSMENT/RECERT/CASE MGMT - Rubi Wilson PTA - 10/02/2023 10:02 AM EDT SITUATION: only patient present during today's visit. patient reports the following since the last homecare visit: medications/allergies--no changes, no fall. patient reports he had a horrible night last night.Lots of "shooting pains" in knee. Worried that it is his RSD . BACKGROUND: Diagnoses (reason for Home Care): LTKR Weight Bearing/Precaution Changes: no changes ASSESSMENT: Focus of visit progressed to standing LE strength and ROM exercises. AAROM 8-90. Gait traiinh w/ 1 crutch including stairs to exit home. Scheduled OP PT Plan of care, goals, and visit frequency reviewed and agreed upon with patient and/or caregiver. Current Discharge Plan: outpatient rehab Anticipate discharge by 10/05/23 RECOMMENDATION: Next visit to focus on PT to see for DC See intervention summary for intervention/education details. [facility] Work Phone: 1(130) 255-994207-12-2024 Telephone encounter Note* Telephone Encounter - Rubi Wilson PTA - 09/29/2023 9:49 AM EDT Patient cancelled today's scheduled PT visit due to having diarrhea. Thanks [facility] Work Phone: 1([phone]) 651-890307-12-2024 Miscellaneous Notes* Telephone Encounter - Rubi Wilson PTA - 09/29/2023 9:49 AM EDT Patient cancelled today's scheduled PT visit due to having diarrhea. Thanks documented in this encounterBethesda North Hospital07-10-2024 Miscellaneous Notes* PT ROUTINE/REASSESSMENT/RECERT/CASE MGMT - Rubi Wilson PTA - 09/27/2023 10:36 AM EDT SITUATION: spouse present during today's visit. patient reports the following since the last homecare visit: medications/allergies--no changes, no fall. patient reports he did get refill of pain med. requestingto work on stairs today so he can shower. BACKGROUND: Diagnoses (reason for Home Care): LTKR Weight Bearing/Precaution Changes: no changes ASSESSMENT: Focus of visit performed and progressed RM and strength ex for HEP. AAROM 10-80. stair training w/ rail and 1 crutch. Patient did well. to cont w/ ice and elevation for pain and swelling Plan of care, goals, and visit frequency reviewed and agreed upon with patient and/or caregiver. Current Discharge Plan: outpatient rehab Anticipate discharge by 10/05/23 RECOMMENDATION: Next visit to focus on schedule OP PT See intervention summary for intervention/education details. documented in this encounterBethesda North Hospital07-10-2024 Patient's home Note* PT ROUTINE/REASSESSMENT/RECERT/CASE MGMT - Rubi Wilson PTA - 09/27/2023 10:36 AM EDT SITUATION: spouse present during today's visit. patient reports the following since the last homecare visit: medications/allergies--no changes, no fall. patient reports he did get refill of pain med. requestingto work on stairs today so he can shower. BACKGROUND: Diagnoses (reason for Home Care): LTKR Weight Bearing/Precaution Changes: no changes ASSESSMENT: Focus of visit performed and progressed RM and strength ex for HEP. AAROM 10-80. stair training w/ rail and 1 crutch. Patient did well. to cont w/ ice and elevation for pain and swelling Plan of care, goals, and visit frequency reviewed and agreed upon with patient and/or caregiver. Current Discharge Plan: outpatient rehab Anticipate discharge by 10/05/23 RECOMMENDATION: Next visit to focus on schedule OP PT See intervention summary for intervention/education details. [facility] Work Phone: 1(486) 418-285007-10-2024 Miscellaneous Notes* CARE COORDINATION - Donna Corrales RN - 09/27/2023 10:00 AM EDT Medication review completed. No ineffective drug therapy, significant side effects, significant drug interactions, duplicate drug therapy, or noncompliance with drug therapy noted. Donna Corrales RN documented in this encounterBethesda [facility] Hospital07-10-2024 Patient's home Note* CARE COORDINATION - Donna Corrales RN - 09/27/2023 10:00 AM EDT Medication review completed. No ineffective drug therapy, significant side effects, significant drug interactions, duplicate drug therapy, or noncompliance with drug therapy noted. Donna Corrales RN [facility] Work Phone: 1([phone]) 671-791307-08-2024 Miscellaneous Notes* PT ROUTINE/REASSESSMENT/RECERT/CASE MGMT - Rubi Wilson PTA - 09/25/2023 11:30 AM EDT SITUATION: only patient present during today's visit. patient reports the following since the last homecare visit: medications/allergies--no changes, no fall. patient reports he ran out of pain meds yesterday and has been miserable. States he spoke to Dr coyle this am and they called in refill. Son is on hisway to pick them up Patient stated, " there is no way i can do anything today othet then get the wound vac taken off." . BACKGROUND: Diagnoses (reason for Home Care): LTKR Weight Bearing/Precaution Changes: no changes ASSESSMENT: Focus of visit wound vac removal and applied silverlon dressing. With patients consent, picture obtained and uploaded to chart. No concerns. Applied silver gel bandage per orders. Verbal review ofHEP and stressed importance of starting back up with exercisesonce he get his pain medicine. Patient voiced understanding and requested to work on stairs next visit so he can get in the shower. Plan of care, goals, and visit frequency reviewed and agreed upon with patient and/or caregiver. Current Discharge Plan: outpatient rehab Anticipate discharge by 10/05/23 RECOMMENDATION: Next visit to focus on resume ROm and strength exercises. Gait traiing including stairs to get to shower See intervention summary for intervention/education details. documented in this encounterBethesda [facility] Hospital07-08-2024 Patient's home Note* PT ROUTINE/REASSESSMENT/RECERT/CASE MGMT - Rubi Wilson PTA - 09/25/2023 11:30 AM EDT SITUATION: only patient present during today's visit. patient reports the following since the last homecare visit: medications/allergies--no changes, no fall. patient reports he ran out of pain meds yesterday and has been miserable. States he spoke to Dr office this am and they called in refill. Son is on hisway to pick them up Patient stated, " there is no way i can do anything today othet then get the wound vac taken off." . BACKGROUND: Diagnoses (reason for Home Care): LTKR Weight Bearing/Precaution Changes: no changes ASSESSMENT: Focus of visit wound vac removal and applied silverlon dressing. With patients consent, picture obtained and uploaded to chart. No concerns. Applied silver gel bandage per orders. Verbal review ofHEP and stressed importance of starting back up with exercisesonce he get his pain medicine. Patient voiced understanding and requested to work on stairs next visit so he can get in the shower. Plan of care, goals, and visit frequency reviewed and agreed upon with patient and/or caregiver. Current Discharge Plan: outpatient rehab Anticipate discharge by 10/05/23 RECOMMENDATION: Next visit to focus on resume ROm and strength exercises. Gait traiing including stairs to get to shower See intervention summary for intervention/education details. [facility] Work Phone: 1([phone]) 647-975907-05-2024 Telephone encounter Note* Telephone Encounter - Thomas Issa PT - 09/22/2023 1:22 PM EDT Jorge Delgado and care team, I performed a P.T. start of care on Mr. Peg ratliff. He is reporting 9/10 left knee pain- reportscompliance with ice/elevation and pain medication. Patient was able to perform ankle pumps, quad sets and gluteal squeezes as well as ambulate with FWW without increased pain. Vital signs: BP- 148/86, 156/88 HR- 76, 82 SpO2- 98%, 98% Temp.- 97.6 Thomas Henson PT, DPT [facility] Work Phone: 1([phone]) 567-570807-05-2024 Miscellaneous Notes* Telephone Encounter - Thomas Issa PT - 09/22/2023 1:22 PM EDT Jorge Delgado and care team, I performed a P.T. start of care on Mr. Peg ratliff. He is reporting 9/10 left knee pain- reportscompliance with ice/elevation and pain medication. Patient was able to perform ankle pumps, quad sets and gluteal squeezes as well as ambulate with FWW without increased pain. Vital signs: BP- 148/86, 156/88 HR- 76, 82 SpO2- 98%, 98% Temp.- 97.6 Thomas Henson PT, DPT documented in this encounterBethesda North Hospital07-05-2024 Miscellaneous Notes* PT SOC/CINTHIA/FOLLOW UP/OTHER - Thomas Issa PT - 09/22/2023 11:58 AM EDT SITUATION: only patient present during today's visit. patient reports he is in a lot of left knee pain. Patient states he had his right knee replaced 2 years ago and states he doesn't remember it hurting this much. Patient states his son lives a block a [address] and his works during the day (nurse). BACKGROUND: Diagnoses (reason for Home Care): s/p TKA 09/18/2023 PRECAUTIONS Fall Risk, Lines/Tubes/Drains, Weight Bearing Restrictions Left Lower Extremity Weight Bearing Status: WBAT Any one of the comorbidities from the list below may have a deleterious effect on the primary home care diagnosis.- (this is from problem list in snapshot)- .prob ACTIVE PROBLEM LIST Rsd (Reflex Sympathetic Dystrophy) Uncontrolled Hypertension S/P Insertion of Spinal Cord Stimulator Complex Tear of Medial Meniscus of Right Knee As Current Injury Chronic Postoperative Pain Tear of Lateral Meniscus of Right Knee, Current Rupture of Anterior Cruciate Ligament of Right Knee Headaches Class 2 Severe Obesity Due to Excess Calories With Serious Comorbidity and Body Mass Index (Bmi) of38.0 to 38.9 in Adult (Hcc) Post-Traumatic Osteoarthritis of Right Knee Tobacco Smoker, 1 Pack of Cigarettes Or Less Per Day S/P Knee Replacement Nicotine use disorder, F17.2 Hypertensive Urgency Headache Mixed Hyperlipidemia Left Flank Pain Hypertension, Essential Left Knee Pain Left Hamstring Muscle Strain Left Leg Pain Monroy (Dyspnea On Exertion) S/P Total Knee Arthroplasty, Left Weight Bearing or Surgical Precautions: WBAT L LE ASSESSMENT: Patient evaluated [facility]. Reviewed and explained homecare services. Plan of care, goals, and visit frequency developed, reviewed, and agreed upon with patient and/or caregiver. Patient Goal: to get back to gol[place] [employer] Patient will benefit from continued physical therapy to address the following deficits: strength, balance, gait, left knee joint ROM, transfers, stair negotiation and bed mobility. Current Discharge Plan: outpatient rehab. Anticipate discharge by 10/07/23. RECOMMENDATION: Next visit to focus on pain/edema management, remove wound vac/apply dressing, progress HEP and functional mobility as tolerated Agreeable to PT; declining NA. See intervention summary for intervention/education details. documented in this encounterBethesda [facility] Hospital07-05-2024 Patient's home Note* PT SOC/CINTHIA/FOLLOW UP/OTHER - Thomas Issa, PT - 09/22/2023 11:58 AM EDT SITUATION: only patient present during today's visit. patient reports he is in a lot of left knee pain. Patient states he had his right knee replaced 2 years ago and states he doesn't remember it hurting this much. Patient states his son lives a block a way and his works during the day (nurse). BACKGROUND: Diagnoses (reason for Home Care): s/p TKA 09/18/2023 PRECAUTIONS Fall Risk, Lines/Tubes/Drains, Weight Bearing Restrictions Left Lower Extremity Weight Bearing Status: WBAT Any one of the comorbidities from the list below may have a deleterious effect on the primary home care diagnosis.- (this is from problem list in snapshot)- .prob ACTIVE PROBLEM LIST Rsd (Reflex Sympathetic Dystrophy) Uncontrolled Hypertension S/P Insertion of Spinal Cord Stimulator Complex Tear of Medial Meniscus of Right Knee As Current Injury Chronic Postoperative Pain Tear of Lateral Meniscus of Right Knee, Current Rupture of Anterior Cruciate Ligament of Right Knee Headaches Class 2 Severe Obesity Due to Excess Calories With Serious Comorbidity and Body Mass Index (Bmi) of38.0 to 38.9 in Adult (Hcc) Post-Traumatic Osteoarthritis of Right Knee Tobacco Smoker, 1 Pack of Cigarettes Or Less Per Day S/P Knee Replacement Nicotine use disorder, F17.2 Hypertensive Urgency Headache Mixed Hyperlipidemia Left Flank Pain Hypertension, Essential Left Knee Pain Left Hamstring Muscle Strain Left Leg Pain Monroy (Dyspnea On Exertion) S/P Total Knee Arthroplasty, Left Weight Bearing or Surgical Precautions: WBAT L LE ASSESSMENT: Patient evaluated by [facility]. Reviewed and explained homecare services. Plan of care, goals, and visit frequency developed, reviewed, and agreed upon with patient and/or caregiver. Patient Goal: to get back to golfing Patient will benefit from continued physical therapy to address the following deficits: strength, balance, gait, left knee joint ROM, transfers, stair negotiation and bed mobility. Current Discharge Plan: outpatient rehab. Anticipate discharge by 10/07/23. RECOMMENDATION: Next visit to focus on pain/edema management, remove wound vac/apply dressing, progress HEP and functional mobility as tolerated Agreeable to PT; declining NA. See intervention summary for intervention/education details. [facility] Work Phone: [phone] Telephone encounter Note* Telephone Encounter - Damien Nevarez LPN - 09/21/2023 12:47 PM EDT HEATH DELGADO Patient declined initially planned visit on 09/20/23. [facility] is planning on initiating services on 09/22/23. Please let us know if you are agreeable to this date. If we do not hear back, we will continue withthis planned date. Thank you, Damien Nevarez LPN Central Admissions Intake Nurse [facility] Work Phone: [phone] Miscellaneous Notes* Telephone Encounter - Damien Nevarez LPN - 09/21/2023 12:47 PM EDT HEATH DELGADO Patient declined initially planned visit on 09/20/23. [facility] is planning on initiating services on 09/22/23. Please let us know if you are agreeable to this date. If we do not hear back, we will continue withthis planned date. Thank you, Damien Nevarez LPN Central Admissions Intake Nurse documented in this encounterBethesda North Hospital07-03-2024 Telephone encounter Note * Telephone Encounter - Thomas Issa, PT - 09/20/2023 10:56 PM EDT Delay in P.T. Start of care. Unable to reach patient by phone to schedule SOC for today. [facility] Work Phone: 1([phone]) 277-504407-03-2024 Miscellaneous Notes* Telephone Encounter - Thomas Issa PT - 09/20/2023 10:56 PM EDT Delay in P.T. Start of care. Unable to reach patient by phone to schedule SOC for today. documented in this encounterBethesda North Hospital07-03-2024 Miscellaneous Notes* [facility] SOC/CINTHIA - Thomas Issa, PT - 09/20/2023 6:00 PM EDT Attempted to schedule SOC visit for today. Unable to complete due to patient/caregiver unable to bereached. SOC/CINTHIA will be rescheduled for next available appointment. documented in this encounterBethesda North Hospital07-03-2024 Patient's home Note* [facility] SOC/CINTHIA - Thomas Issa, PT - 09/20/2023 6:00 PM EDT Attempted to schedule SOC visit for today. Unable to complete due to patient/caregiver unable to bereached. SOC/CINTHIA will be rescheduled for next available appointment. [facility] Work Phone: 1([phone]) 158-182507-02-2024 NoteHNO ID: [id number] Author: ?, ?, ? Service: Pharmacy Author Type: ? Type: Plan of Care Filed: 09/19/2023 13:27 Note Text: PHARMACY BEDSIDE DELIVERY SERVICE Patient Name: Ruddy Ruvalcaba The marked outpatient medications were Filled at: [facility] and delivered to the patient's bedside to 288 Medication List START taking these medications acetaminophen 500 mg tablet Commonly known as: TYLENOL Take 2 tablets by mouth every 8 hours as needed for pain. X ascorbic acid (vitamin C) 500 mg tablet Commonly known as: VITAMIN C Take 1 tablet by mouth two times a day with meals for 14 days. X aspirin, enteric coated 81 mg EC tablet Commonly known as: ECOTRIN LOW STRENGTH Take 1 tablet by mouth two times a day for 28 days. X docusate sodium 100 mg capsule Commonly known as: COLACE Take 1 capsule by mouth two times a day as needed for constipation. X doxycycline hyclate 100 mg capsule Commonly known as: VIBRAMYCIN Take 1 capsule (100 mg) by mouth every 12 hours at 6 am and 6 pm for 14 days. X oxyCODONE IR 5 mg immediate release tablet Commonly known as: ROXICODONE Take 1-2 tablets by mouth every 6 hours as needed for pain for up to 7 days. X polyethylene glycol 3350 17 gram/dose powder Commonly known as: MIRALAX Take 17 g by mouth once daily as needed for constipation for up to 10 days. Dissolve dose in 4 - 8 ounces of liquid and take as directed. X CONTINUE taking these medications erythromycin 5 mg/gram (0.5 %) ophthalmic ointment Commonly known as: ROMYCIN labetalol 200 mg tablet Commonly known as: TRANDATE Take 1.5 tablets by mouth three times a day. lisinopril 40 mg tablet Commonly known as: ZESTRIL Take 1 tablet by mouth twice daily. You might also be taking other medications not listed above. If you have questions about any of your other medications, talk to the person who prescribed them or your Primary Care Provider. STOP taking these medications HYDROcodone-acetaminophen 5-325 mg per tablet Commonly known as: BRIANNA Guerrero (Continuous Churn Buttermaker) PAGER: [phone] September 19, 2023 1:27 PMSelect [facility], [id number] Telephone encounter Note* Telephone Encounter - Lauren Frye PSS - 09/19/2023 10:18 AM EDT Date/Time: 09/19/2023 10:18 AM Spoke with patient @ phone #: Bed: [id number] [phone] - Preferred # for contact: [phone] Have you received help from a home care company in the last 60 days? no Are you agreeable to [facility] services? yes What address will we be seeing you at? [address] [place] [address] Do you have any upcoming appointments or things we need to schedule around? no Do you have a teachable CG or can you manage your care independently? yes [facility]07-02-2024 Miscellaneous Notes* Telephone Encounter - Lauren Frye PSS - 09/19/2023 10:18 AM EDT Date/Time: 09/19/2023 10:18 AM Spoke with patient @ phone #: Bed: [id number] [phone] - Preferred # for contact: [phone] Have you received help from a home care company in the last 60 days? no Are you agreeable to [facility] services? yes What address will we be seeing you at? [address] [place] [address] Do you have any upcoming appointments or things we need to schedule around? no Do you have a teachable CG or can you manage your care independently? yes documented in this encounterBethesda [facility] Hospital07-02-2024 NoteHNO ID: [id number] Author: ARASH ABRAHAM MD Service: General Internal Medicine Author Type: Physician Type: Progress Notes Filed: 09/19/2023 10:06 Note Text: INPATIENT PROGRESS NOTES Patient Name: Ruddy Ruvalcaba DATE of SERVICE: 09/19/2023 TIME of SERVICE: 8:23 AM PRIMARY SERVICE: medicine INTERVAL HPI: Uneventful night, pain is well-controlled. No nausea or vomiting. No lightheadedness or dizziness ASSESSMENT AND PLAN: Osteoarthritis, status post left total knee arthroplasty DVT prophylaxis with aspirin Hypertension is stable, currently on Gesterol and labetalol Suspect obstructive sleep apnea patient was scheduled for sleep study as outpatient Acute kidney injury, avoid nephrotoxic drugs Discontinue Toradol, continue IV fluid Obesity class II Possible Discharge today Home-going meds reviewed Plan of care discussed with: Provider, RN, Patient. PERTINENT ROS: All other reviewed and negative other than HPI. MEDICATIONS: Current Facility-Administered Medications Medication Dose Route Frequency scopolamine - VERIFY patch OTHER q 8 H scopolamine - REMOVE PATCH OTHER ONCE labetalol 300 mg tab(s) (TRANDATE) 300 mg ORAL TID lisinopril 40 mg tab(s) (ZESTRIL) 40 mg ORAL BID lactated ringers iv infusion 75 mL/hr INTRAVENOUS CONTINUOUS HYDROmorphone 0.2 mg injection (DILAUDID) 0.2 mg INTRAVENOUS q 3 H PRN acetaminophen 1,000 mg tab(s) (TYLENOL) 1,000 mg ORAL q 8 H keTORolac 15 mg injection (Toradol) 15 mg INTRAVENOUS q 6 H ondansetron orally disintegrating 4 mg tab(s) (ZOFRAN ODT) 4 mg ORAL q 6 H PRN Or ondansetron (PF) 4 mg injection (ZOFRAN) 4 mg INTRAVENOUS q 6 H PRN polyethylene glycol 3350 17 g packet 17 g ORAL DAILY PRN [START ON 09/20/2023] bisacodyl EC 10 mg tab(s) (DULCOLAX) 10 mg ORAL DAILY aluminum-magnesium hydroxide-simethicone 200-200-20 mg/5 mL 30 mL 30 mL ORAL q 2 H PRN ascorbic acid (vitamin C) 1,000 mg tab(s) (VITAMIN C) 1,000 mg ORAL BID w MEALS docusate sodium 100 mg cap(s) (COLACE) 100 mg ORAL BID senna 17.2 mg tab(s) (SENOKOT) 17.2 mg ORAL AT BEDTIME aspirin, enteric coated 81 mg tab(s) 81 mg ORAL BID doxycycline hyclate 100 mg cap(s) (VIBRAMYCIN) 100 mg ORAL q 12 H 6a/6p nicotine 14 mg/24 hr 1 Patch (NICODERM) 1 Patch TRANSDERMAL DAILY And nicotine -- REMOVE patch OTHER DAILY And nicotine - verify patch OTHER q 8 H oxyCODONE IR 5-10 mg tab(s) (ROXICODONE) 5-10 mg ORAL q 3 H PRN PHYSICAL EXAM: Patient Vitals for the past 24 hrs: BP Temp Temp src Pulse Resp SpO2 Height Weight 09/19/23 0742 147/81 36.7 ?C (98.1 ?F) Oral 70 18 95 % -- -- 09/19/23 0353 152/80 36.9 ?C (98.4 ?F) Oral 80 18 96 % -- -- 09/18/232222 149/77 36.7 ?C (98.1 ?F) Oral 70 18 94 % -- -- 09/18/231935 160/93 36.4 ?C (97.6 ?F) Oral 70 18 96 % -- -- 07/01/24 1930 132/84 36.7 ?C (98 ?F) Temporal 70 16 96 % 177.8 cm (5' 10") 127 kg (279 lb 15.8 oz) 09/18/23 1858 159/90 37 ?C (98.6 ?F) Axillary 69 16 97 % -- -- 09/18/23 1830 153/89 -- -- 64 14 96 % -- -- 09/18/23 1815 167/98 -- -- 64 20 95 % -- -- 09/18/23 1811 167/98 -- -- 67 23 97 % -- -- 09/18/23 1800 169/93 -- -- 72 23 97 % -- -- 09/18/23 1756 169/93 -- -- 66 15 97 % -- -- 09/18/23 1754 -- -- -- 66 18 -- -- -- 09/18/23 1748 -- -- -- 66 16 94 % -- -- 09/18/23 1745 168/89 -- -- 67 12 97 % -- -- 09/18/23 1740 168/89 -- -- 68 16 96 % -- -- 09/18/23 1731 174/84 -- -- 71 19 95 % -- -- 09/18/23 1730 174/84 -- -- 73 16 95 % -- -- 09/18/23 1716 171/75 36.9 ?C (98.4 ?F) Temporal Art 76 16 94 % -- -- 09/18/23 1715 171/75 -- -- 78 19 94 % -- -- 09/18/23 1211 175/99 37 ?C (98.6 ?F) Temporal Art 73 18 97 % -- -- Body mass index is 40.17 kg/m?. GENERAL: Alert, no distress, cooperative, Obese NECK: No jugulovenous distention LUNGS: Lungs clear to auscultation, CARDIAC: Normal S1 and S2; no rubs, murmurs, or gallops ABDOMEN: Abdomen soft, non-tender, BS normal, No masses or organomegaly EXTREMITIES: no edema, no calf tenderness CBC: Recent Labs 09/19/23 0706 WBC 14.85* RBC 3.91* HB 11.7* HCT 35.6* PLT 235 MCV 91.0 MCH 29.9 MPV 10.5 Coags: CMP: Recent Labs 09/19/23 0706 NA 137 K 4.9 CHLOR 102 CO2 23 BUN 24 CREAT 1.41* GLUC 113* CA 8.7 ANION 12 SIGNATURE: Arashgrant Abraham, [id number] NoteHNO ID: [id number] Author: ISRAEL SANTACRUZ PA-C Service: Orthopaedic Surgery Author Type: Physician Packaging Clerk Type: Progress Notes Filed: 09/19/2023 08:00 Note Text: POSTOP NOTE ORTHOPAEDIC SURGERY SERVICE DATE: 09/19/2023 SERVICE TIME: 7:58 AM IMPRESSION/PLAN: S/P Procedure(s) (LRB): ROBOTIC ASSISTED TOTAL KNEE ARTHROPLASTY (Left) on 09/18/2023 Physical Therapy evaluation WBAT LLE DVT prophylaxis: Intermittent pneumatic compression device (IPCD) and ASA 81 BID Pain control Dressing: prevena x 1 week then silverlon x 1 week Antibiotics: doxy 100 mg BID x 2 weeks Case Management for discharge planning Plan of care discussed with: Provider, RN, Patient. Patient Active Hospital Problem List: No active hospital problems. POST OPERATIVE COMPLICATIONS: Complicated by uneventful/none SUBJECTIVE: Patient states that they are comfortable Well Controlled knee pain. Denies incisional pain. OBJECTIVE: VITAL SIGNS: BP 147/81 Pulse 70 Temp 36.7 ?C (98.1 ?F) (Oral) Resp 18 Ht 177.8 cm (5' 10") Wt 127 kg (279 lb 15.8 oz) SpO2 95% BMI 40.17 kg/m? INTAKE AND OUTPUT: Intake/Output Summary (Last 24 hours) at 09/19/2023 0758 Last data filed at 09/19/2023 0600 Gross per 24 hour Intake 2150 ml Output 1050 ml Net 1100 ml LABS: Hemoglobin Date Value Ref Range Status 09/19/2023 11.7 (L) 13.0 - 17.0 g/dL Final 09/08/2023 14.8 13.0 - 17.0 g/dL Final Hematocrit Date Value Ref Range Status 09/19/2023 35.6 (L) 39.0 - 51.0 % Final 09/08/2023 44.4 39.0 - 51.0 % Final Platelet Count Date Value Ref Range Status 09/19/2023 235 150 - 400 k/uL Final 09/08/2023 282 150 - 400 k/uL Final WBC Date Value Ref Range Status 09/19/2023 14.85 (H) 3.70 - 11.00 k/uL Final 09/08/2023 9.62 3.70 - 11.00 k/uL Final Creatinine Date Value Ref Range Status 08/28/2023 0.95 0.73 - 1.22 mg/dL Final 12/12/2022 1.04 0.73 - 1.22 mg/dL Final Potassium Date Value Ref Range Status 08/28/2023 4.8 3.7 - 5.1 mmol/L Final 12/12/2022 3.9 3.7 - 5.1 mmol/L Final VTE Prophylaxis: Active VTE Risk Category Order: 09/18/231899 VTE RISK CATEGORY: SURGICAL HIGH RISK ([place]) Active VTE Medication Orders: Anticoagulant AND Antiplatelet Medications (From admission, onward) Start Dose Route Frequency Last Action Ordered Stop 09/19/23 0900 aspirin, enteric coated 81 mg tab(s) (Surgical Risk Categories) 81 mg ORAL 2 TIMES DAILY Ordered 09/18/23 1852 -- Active VTE Prophylaxis Orders: 09/18/231899 PNEUMATIC COMPRESSION STOCKINGS ([place]) 09/18/231899 ACTIVITY - MOBILIZE PATIENT ([place]) PHYSICAL EXAMINATION: Left Lower Extremity: Dorsalis pedis pulses palpable. Posterior tibial pulses palpable. Dorsi flexion 5/5. Plantar flexion 5/5. Extensor hallucis extension: 5/5. Sensory intact to light touch L4-S1. Prevena wound vac functioning; dressing clean, dry, and intact. Surgical site no drainage. Problem Review and Assessment: Skin and Abdominal [...] Most recent labs and imaging results. SIGNATURE: Israel Santacruz PA-C PATIENT NAME: Ruddy Ruvalcaba DATE: September 19, 2023 TIME: 7:58 AM The patient has undergone major orthopedic [...] addiction). Patient demonstrated understanding of risks versus benefits.[facility] [id number] NoteHNO ID: [id number] Author: ROXANNE KRISHNAMURTHY RN Service: Nursing Author Type: Registered Nurse Type: Nursing Progress Note Filed: 09/18/2023 17:52 Note Text: RT at bedside for duoneb breathing treatment.[facility] [id number] NoteHNO ID: [id number] Author: ROXANNE KRISHNAMURTHY RN Service: Nursing Author Type: Registered Nurse Type: Nursing Progress Note Filed: 09/18/2023 17:32 Note Text: Xray at bedside for post op imaging of left knee.[facility] [id number] Note HNO ID: [id number] Author: MAGDA MARQUIS MD Service: Anesthesiology Author Type: Anesthesiologist Type: Anesthesia Procedure Notes Filed: 09/18/2023 15:25 Note Text: ANESTHESIOLOGY PROCEDURE NOTE Airway General Information Procedure Start Time/Medication Administration: 09/18/2023 3:13 PM Procedure End Time: 09/18/2023 3:13 PM Patient location during procedure: OR Timeout Performed Pre-procedure: timeout performed Consent Obtained: Yes Patient identity confirmed: arm band and patient Staffing Anesthesiologist: Magda Marquis MD Performed by: [employer] Indications and Patient Condition Indications for airway management: anesthesia Preoxygenated: yes anesthesia circuit Patient position: sniffing Method: asleep Cricoid Pressure: Yes Difficult Mask: No Airway Accessory: oral airway Final Airway Details Final airway type: endotracheal airway Final Endotracheal Airway: ETT Cuffed: yes Successful intubation technique: direct laryngoscopy Endotracheal tube insertion site: oral Blade: Phill Blade size: #4 ETT size (mm): 7.5 Measured from: lips Measurement (cm): 22 Placement verified by: chest auscultation and capnometry Cormack-Lehane Classification: grade I - full view of glottis Number of attempts at approach: 1 Airway not difficult SIGNATURE: Magda Marquis MD PATIENT NAME: uRddy Ruvalcaba DATE: September 18, 2023 TIME: 3:24 PM CSN: [id number] [id number] NoteHNO ID: [id number] Author: MAGDA MARQUIS MD Service: Anesthesiology Author Type: Anesthesiologist Type: Anesthesia Procedure Notes Filed: 09/18/2023 15:16 Note Text: ANESTHESIOLOGY PROCEDURE NOTE Peripheral Nerve Block General Information Procedure Start Time/Medication Administration: 09/18/2023 3:11 PM Procedure End time: 09/18/2023 3:11 PM Patient location during procedure: OR Timeout Performed Pre-procedure: timeout performed Consent Obtained: Yes Patient identity confirmed: arm band and patient sedated or unresponsive Reason for block: post-op pain management/at surgeon's request Staffing Anesthesiologist: Magda Marquis MD Performed by: anesthesiologist Preparation Sterility Preparation: hand hygiene performed prior to procedure, sterile gloves, drapes, and procedure tray, surgical cap used, mask used, sterile drape used during line insertion, skin prep agent completely dried prior to procedure Site Prep: Chloraprep Pre-Procedure Neuro Exam Location: LLE Sensory: intact Motor: intact Procedure Details Patient Position: supine Monitoring: Pulse OX, EKG and NIBP Block Type Lower Extremity: distal femoral (adductor canal) Laterality: left Injection Technique: single-shot Ultrasound Guided: Yes Image in Chart: yes Local Infiltration: Yes Needle Needle Gauge: 22 G Needle Length: 100 mm Needle Localization: ultrasound Test Dose Response: negative test dose Assessment Injection assessment: negative aspiration, no paresthesia on injection, incremental injection and local visualized surrounding nerve on ultrasound Paresthesia: none Post-Procedure Neuro Exam Expected Regional Anesthesia: Yes Medications Administered bupivacaine (PF) 0.5 % (5 mg/mL) injection - peripheral nerve block 10 mL - 09/18/2023 3:11:00 PM EPINEPHrine injection - INTRAVENOUS 50 mcg - 09/18/2023 3:11:00 PM Comments For this procedure, I personally performed this procedure. Magda Marquis MD SIGNATURE: Magda Marquis MD PATIENT NAME: Ruddy Ruvalcaba DATE: September 18, 2023 TIME: 3:15 PM CSN: [id number] Telephone encounter Note* Telephone Encounter - Zoë Carrillo LPN - 09/12/2023 10:04 AM EDT Spoke with Ruddy Ruvalcaba on September 12, 2023. Informed of results / instructions as stated above. Patient voiced understanding at this time. Patient asked about cardiac clearance to Dr. Delgado for upcoming procedure on 09/18/2023. Zoë Carrillo LPN [facility]06-25-2024 Miscellaneous Notes* Telephone Encounter - Zoë Carrillo LPN - 09/12/2023 10:04 AM EDT Spoke with Ruddy Ruvalcaba on September 12, 2023. Informed of results / instructions as stated above. Patient voiced understanding at this time. Patient asked about cardiac clearance to Dr. Delgado for upcoming procedure on 09/18/2023. Zoë Carrillo LPN * Telephone Encounter - Magda Corbin LPN - 09/12/2023 8:59 AM EDT Voicemail msg left for patient to return call to [facility] to review test results. Office phone number provided. Magda Corbin LPN * Telephone Encounter - Magda Corbin LPN - 09/12/2023 7:05 AM EDT ----- Message from Moisés Munguia MD sent at 09/11/2023 9:50 PM EDT ----- Normal EKG and nuclear portion of stress test documented in this encounterBethes[facility]06-[facility]-2024 Telephone encounter Note * Telephone Encounter - Magda Corbin LPN - 09/12/2023 8:59 AM EDT Voicemail msg left for patient to return call to [facility] to review test results. Office phone number provided. Magda Corbin LPN [facility]06-25-2024 Telephone encounter Note* Telephone Encounter - Magda Corbin LPN - 09/12/2023 7:05 AM EDT ----- Message from Moisés Munguia MD sent at 09/11/2023 9:50 PM EDT ----- Normal EKG and nuclear portion of stress test [facility]06-24-2024 Miscellaneous Notes* Result Encounter Note - Moisés Munguia MD - 09/11/2023 10:30 AM EDT Normal EKG and nuclear portion of stress test documented in this encounterBethes[facility]06-[facility]-2024 Progress note* Result Encounter Note - Moisés Munguia MD - 09/11/2023 10:30 AM EDT Normal EKG and nuclear portion of stress test [facility]06-24-2024 History of Present illness Narrative* Mary Jacobson, RT(R) - 09/11/2023 10:00 AM EDT RADIOLOGY SERVICE PROGRESS NOTE SERVICE DATE: 09/11/2023 SERVICE TIME: 10:20 AM PATIENT IDENTITY VERIFICATION COMPLETED USING TWO (2) STANDARD IDENTIFIERS: Name and Date of confirmed by patient verbally FALL SCREENING: Has the patient had 2 falls in the last year or 1 fall with injury or currently using an Ambulatory Assistive Device (Walker, Cane, Wheelchair, Crutches, etc.)? No PATIENT GENDER DATA: .male ALLERGIES: Reviewed and unchanged MEDICATIONS REVIEWED: No PATIENT RELEVANT IMPLANT DATA REVIEWED: Not Applicable PATIENT PRESENTS WITH AN IMPLANTABLE OR ATTACHED TIRE DUSTER: Yes Other n/a CREATININE: Creatinine Date Value Ref Range Status 08/28/2023 0.95 0.73 - 1.22 mg/dL Final 12/12/2022 1.04 0.73 - 1.22 mg/dL Final 09/01/2022 0.99 0.73 - 1.22 mg/dL Final Estimated Glomerular Filtration Rate Date Value Ref Range Status 08/28/2023 95 >=60 mL/min/1.73m Final Comment: Estimated Glomerular Filtration Rate (eGFR) is calculated using the 2020 CKD-EPI creatinine equation. This equation utilizes serum creatinine, sex, and age as parameters. The creatinine assay has traceable calibration to isotope dilution- mass spectrometry. Refer to KDIGO guidelines for clinical interpretation. In patients with unstable renal function, e.g. those with acute kidney injury, the eGFRmay not accurately reflect actual GFR. eGFR- Date Value Ref Range Status 10/01/2015 >60 Final P.O.C.T. RESULTS: N/A September 11, [address] PERFORMED: No IV SITE: Ambulatory: A peripheral IV was started in the Right antecubital site with a Angio cath: 22 gauge. POST EXAM PIV STATUS: Discontinued PROCEDURE TYPE: NM Stress: 16.1 mCi [id number] was administered IV for Rest Imaging at 10:30 by Mary Jacobson. 49.3 mCi [id number] was administered IV for Stress Imaging at 11:43 by Mary Jacobson. PATIENT DISCHARGED TO: Ambulatory patient, left [place] department area. A Diagnostic radioactive procedure has taken place, with no further precautions necessary other than routine body substance precautions. More information regarding radiation safety can be found usingthis link: [email or web address] SIGNATURE: RT Jolie(Obinna) PATIENT NAME: Ruddy Ruvalcaba DATE: September 11, 2023 TIME: 10:20 AM PAGER/CONTACT #: documented in this encounterBethesda [facility]06-[facility]-2024 Telephone encounter Note * Telephone Encounter - Romy Grewal LPN - 09/07/2023 11:08 AM EDT Pt requesting refills as follows: Last Office Visit: 07/10/2023 Last Refill: 08/26/2023 Next Office Visit: No future apt Patient comment: Need filled Monday Requested Prescriptions Pending Prescriptions Disp Refills HYDROcodone-acetaminophen (NORCO) 5-325 mg per tablet 56 tablet 0 Sig: Take 1 tablet by mouth every 6 hours as needed for pain for up to 14 days. Please review and advise. Romy Grewal LPN [facility]06-20-2024 Miscellaneous Notes* Telephone Encounter - Romy Grewal LPN - 09/07/2023 11:08 AM EDT Pt requesting refills as follows: Last Office Visit: 07/10/2023 Last Refill: 08/26/2023 Next Office Visit: No future apt Patient comment: Need filled Monday Requested Prescriptions Pending Prescriptions Disp Refills HYDROcodone-acetaminophen (NORCO) 5-325 mg per tablet 56 tablet 0 Sig: Take 1 tablet by mouth every 6 hours as needed for pain for up to 14 days. Please review and advise. Romy Grewal LPN documented in this encounterBethesda [facility] Hospital06-12-2024 History of Present illness Narrative* Micaela Zazueta RT(R) - 08/30/2023 1:00 PM EDT Radiology Service Progress Note PATIENT NAME: Ruddy Ruvalcaba DATE OF SERVICE: August 30, 2023 TIME: 1:30 PM PATIENT IDENTITY VERIFICATION COMPLETED USING TWO (2) IDENTIFIERS: Name and Date of confirmedby patient verbally and Name and Date of confirmed by identification band. FALL SCREENING: Has the patient had 2 falls in the last year or 1 fall with injury or currently using an Ambulatory Assistive Device (Walker, Cane, Wheelchair, Crutches, etc.)? No PATIENT GENDER DATA: Male PATIENT RELEVANT IMPLANT DATA REVIEWED: Yes PATIENT PRESENTS WITH AN IMPLANTABLE OR ATTACHED TIRE DUSTER: No RADIOLOGY DEPARTMENT: CT; Exam(s) Completed: Lower extremity -sun knee PERIPHERAL IV DATA: Not applicable SIGNED BY: RT Aura(Obinna) August 30, 2023 1:30 PM documented in this encounterBethesda [facility]06-12-2024 NoteHNO ID: [id number] Author: MICAELA ZAZUETA RT(R) Service: Radiology Author Type: Technologist Type: Progress Notes Filed: 08/30/2023 13:31 Note Text: Radiology Service Progress Note PATIENT NAME: Ruddy Ruvalcaba DATE OF SERVICE: August 30, 2023 TIME: 1:30 PM PATIENT IDENTITY VERIFICATION COMPLETED USING TWO [...] Male PATIENT RELEVANT IMPLANT DATA REVIEWED: Yes PATIENT PRESENTS WITH AN IMPLANTABLE OR ATTACHED TIRE DUSTER: No RADIOLOGY DEPARTMENT: CT; Exam(s) Completed: Lower extremity -sun knee PERIPHERAL IV DATA: Not applicable SIGNED BY: RT Aura(Obinna) August 30, 2023 1:30 PMSelect [facility] [id number] Telephone encounter Note* Telephone Encounter - Jo Saldivar - 08/30/2023 9:54 AM EDT Pt. nuclear stress test is scheduled for 09/11/2023. Jo Saldivar August 30, 2023 9:55 AM [facility]06-12-2024 Miscellaneous Notes* Telephone Encounter - Jo Saldivar - 08/30/2023 9:54 AM EDT Pt. nuclear stress test is scheduled for 09/11/2023. Jo Saldivar August 30, 2023 9:55 AM * Telephone Encounter - Luiz Berger - 08/30/2023 9:36 AM EDT LVM for patient notifying him of need to complete nuclear stress test prior to being able to reviewcardiac clearance. Luiz Berger * Telephone Encounter - Luiz Berger - 08/30/2023 9:36 AM EDT Images from the original note were not included. Tal Neely MD Saha, Mary Hey Mary, Dr. Munguia had recommended patient have a nuclear stress test when he last saw him back in 02/09. Can we please have patient schedule this as part of his pre- op evaluation? Tal Henson MD documented in this encounterBethesda [facility] Hospital06-12-2024 Telephone encounter Note * Telephone Encounter - Luiz Berger - 08/30/2023 9:36 AM EDT LVM for patient notifying him of need to complete nuclear stress test prior to being able to reviewcardiac clearance. Luiz Berger [facility]06-12-2024 Telephone encounter Note* Telephone Encounter - Luiz Berger - 08/30/2023 9:36 AM EDT Images from the original note were not included. Tal Neely MD Saha, Mary Hey Mary Dr. Munguia had recommended patient have a nuclear stress test when he last saw him back in 02/09. Can we please have patient schedule this as part of his pre- op evaluation? Thanks, Tal Neely MD [facility]06-11-2024 Telephone encounter Note* Telephone Encounter - Rodolfo Nayak RN - 08/29/2023 11:47 AM EDT Spoke with pt and reviewed lab results. He will go to [facility] tomorrow. Rodolfo Nayak RN August 29, 2023 12:14 PM [facility]06-11-2024 Miscellaneous Notes* Telephone Encounter - Rodolfo Nayak RN - 08/29/2023 11:47 AM EDT Spoke with pt and reviewed lab results. He will go to [facility] tomorrow. Rodolfo Nayak RN August 29, 2023 12:14 PM * Telephone Encounter - Margie Barrera APRN.CNP - 08/29/2023 10:35 AM EDT Mildly elevated WBC on pre-op labs, lets recheck and urine culture. Please notify pt to complete TATIANA. Thank you documented in this encounterBethesda [facility] Hospital06-11-2024 Telephone encounter Note * Telephone Encounter - Margie Barrera APRN.CNP - 08/29/2023 10:35 AM EDT Mildly elevated WBC on pre-op labs, lets recheck and urine culture. Please notify pt to complete TATIANA. Thank you [facility]06-10-2024 Telephone encounter Note* Telephone Encounter - Margie Barrera APRN.CNP - 08/28/2023 4:04 PM EDT Cardiac optimization letter sent Dr. Almeida. Scheduled for Lexiscan 09/11/2023 [facility]06-10-2024 Miscellaneous Notes* Telephone Encounter - Margie Barrera APRN.CNP - 08/28/2023 4:04 PM EDT Cardiac optimization letter sent Dr. Almeida. Scheduled for Lexiscan 09/11/2023 documented in this encounterBethesda [facility]06-10-2024 Instructions* Patient Instructions* Margie Barrera APRN.CNP - 08/28/2023 9:36 AM EDT PATIENT PREOPERATIVE INSTRUCTIONS Heath Delgado MD has scheduled you for your procedure at this surgery center: [facility] [place]: [phone] -- [address] [address]. Please read below carefully for your personalized instructions. Dietary Restrictions: - No solid food after midnight. - You may have 12 ounces of clear liquids (water, clear juices such as apple juice or gatorade, carbonated beverages, clear tea, black coffee, jello) until 2 hours before scheduled arrival at facility. No red/purple coloring and no creamer/sugar Medications: Unless instructed differently below, stay on all of your medications until your surgery. If you start any new medications after today's visit, please contact your surgeon. Pre-Surgery Med Instructions Medication Instructions HYDROcodone-acetaminophen (NORCO) 5-325 mg per tablet IF needed labetalol (TRANDATE) 200 mg tablet Take the day of surgery with a small sip of water erythromycin (ROMYCIN) 5 mg/gram (0.5 %) ophthalmic ointment Do not take the day of surgery lisinopril (ZESTRIL) 40 mg tablet Do not take the day of surgery If you take any medications for erectile [...] or NSAIDS as needed. Important Reminders: - Candy, mints, and tobacco products are [...] Procedures: - YOU MUST HAVE A RESPONSIBLE EMERGENCY COMMUNICATIONS OPERATOR TAKE YOU HOME. A TOURING PRODUCTION MANAGER OR TOOLROOM KEEPER CANNOT BE MADE A RESPONSIBLE EMERGENCY COMMUNICATIONS OPERATOR. - We recommend that a responsible person stays with you overnight to take care of you. - You cannot stay in a hotel alone after outpatient surgery. You will not be permitted to have yoursurgery, if you do not have someone to [...] Advance Directive, please fax a copy to [phone] or email to for it to be added to your chart. If you do not have an Advance Directive, you can find the appropriate form and more information at [email or web address]. We recommend that youcomplete the Advance Directive form found on the website and bring it with you the day of your surgery. It can be witnessed and scanned into your chart that day. Margie Barrera APRN.CNP documented in this encounterBethesda [facility]06-10-2024 History and physical note * Margie Barrera APRN.CNP - 08/28/2023 9:34 AM EDT HISTORY AND PHYSICAL EXAMINATION SERVICE DATE: 08/28/2023 SERVICE TIME: 10:29 AM PRIMARY CARE PHYSICIAN: Jossy Natarajan APRN.CNP Assessment Patient has the following medical conditions which may affect liza-operative course: RSD (reflex sympathetic dystrophy) Assessment: hx, rx as needed Hypertension, essential Assessment: sub-optimal control, requesting cardiology optimization appt along with completely Lexiscan previously ordered by Dr. Almeida 01/2023. Last 14 BP Last 14 Encounter BP Readings: Date: BP: 08/28/2023 142/88 07/10/2023 144/92 04/20/2023 162/100 02/03/2023 160/95 01/20/2023 168/108 12/29/2022 178/108 12/24/2022 182/102 12/15/2022 182/102 12/14/2022 197/115 11/29/2022 170/90 11/17/2022 194/102 11/07/2022 174/100 11/04/2022 200/104[Ascencion notifcelia dof blood pressure- patient follows with PCP due to elevated blood pressure.[ 10/24/2022 148/74 Mixed hyperlipidemia Assessment: diet controlled Tobacco smoker, 1 pack of cigarettes or less per day Assessment: 0.5ppd, denies asthma or COPD S/P knee replacement Assessment: hx right TKA, still painful per pt S/P insertion of spinal cord stimulator Assessment: hx, still in place but not operating Class 2 severe obesity due to excess calories with serious comorbidity and body mass index (BMI) of38.0 to 38.9 in adult ([facility]) Assessment: Body mass index is 38.17 kg/m . MONROY (dyspnea on exertion) Assessment: pt had Lexiscan ordered 01/2023 by cardiology has not yet completed. Pt aware this needs completed and follow up with cardiology to proceed with surgery. Pt verbalized understanding. 02/03/2023 Dr. Munguia ASSESSMENT/PLAN: 1. Hypertension, unspecified type - ICD9: 401.9, ICD10: I10 (primary diagnosis) - Uncontrolled, but he does have several triggers including smoking, diet rich in deli meat, untreated reflex sympathetic dystrophy, possible sleep apnea, and obesity. I do not think he has secondaryhypertension, but I will order a workup for [...] be contributing to his elevated blood pressures. Moisés Munguia MD Mariscal Activity Status Index: METS: Climb a flight of stairs or walk up a hill (5.50 METs) DASI Score: 5.5 Patient denies any chest pain or undue shortness of breath with the above physical activity. Clinical Frailty Scale: 3. Well, with treated comorbid disease STOP-Bang Score: Sandoval loudly Has or is being treated for high blood pressure BMI greater than 35 kg/m^2 Patient over 50 years old Has a large neck Male patient Denies feeling tired, fatigued, or sleepy during the daytime Has not been observed to stop breathing or choking/gasping during sleep STOP-Bang Score: 6 [id number] Score: Age: <65 Sex: male CHF history: No Hypertension history: Yes Stroke/TIA/thromboembolism history: No Vascular disease history: No Diabetes history: No [id number] Score: 1 ARISCAT Score: Age: 51-80 Preoperative SpO2: >=96% Respiratory infection in the last month: No Preoperative anemia: Yes Surgical incision: peripheral Duration of surgery: 2-3 hrs Emergency procedure: No ARISCAT Score: 30 ANESTHESIA FINDINGS: Intubation History: No history of difficult intubation Significant Anesthesia Considerations: none Airway History: No history of difficult airway I - PHYSICAL EVALUATION AIRWAY Patient intubated: No. Tracheostomy tube not present Mallampati: III. TM distance: >3 FB. Neck ROM: full ROM without neurological symptoms. Mouth opening: adequate. Short neck: no. Thick neck: yes Thomas present: yes Lip Bite Test: I Microretrognathia/Micronagthia/Recessed Chin: No DENTAL Dentures, upper: partial. Dentures, lower: partial. II - ANESTHESIA PLAN Anesthetic Plan: other Beta [place] Monitoring Plan Post Procedure Analgesic Plan Informed Consent Anesthetic risks, benefits, alternatives, personnel and consent discussed: yes. Patient / Responsible Alliance Party agrees to proceed: yes Patient / Surrogate agrees to blood products: blood products not planned Discussed the possibility of lip / dental damage: yes Prepared for Surgery: optimally prepared for surgery, pending [see comment]. Labs Cardiology appt requested for uncontrolled HTN and MONROY. Dr. Almeida previously ordered Lexiscan 01/2023 pt has not yet completed as well. CONSULTS: The following consults have been initiated at this time: cardiology. Planned Anesthetic: other anesthesia choice The Following Tests/Procedures Have Been Initiated: Orders Placed This Encounter >CBC + AUTO DIFF Standing Status: Future Number of Occurrences: 1 Standing Expiration Date: 11/27/2023 >CMP Standing Status: Future Number of Occurrences: 1 Standing Expiration Date: 11/27/2023 >HGB A1c (Today or soon) Standing Status: Future Number of Occurrences: 1 Standing Expiration Date: 11/27/2023 Staphylococcus aureus & MRSA Screen, PCR, Nasal REASON FOR VISIT: Ruddy Ruvalcaba is a 53 year old male who is scheduled for Procedure(s): ROBOTIC ASSISTED TOTAL KNEE ARTHROPLASTY (Left) at the request of Dr. Heath Delgado for consultation. My final recommendation will be [...] Serious Comorbidity and Body Mass Index (Bmi) of38.0 to 38.9 in Adult (Hcc) Post-Traumatic Osteoarthritis of Right Knee Tobacco Smoker, 1 Pack of Cigarettes Or Less Per Day S/P Knee Replacement Nicotine use disorder, F17.2 Hypertensive Urgency Headache Mixed Hyperlipidemia Left Flank Pain Hypertension, Essential Left Knee Pain Left Hamstring Muscle Strain Left Leg Pain Monroy (Dyspnea On Exertion) COVID-19 Immunization Status Overdue - Covid-19 Vaccine () Never done 11/26/2021 Postponed until 11/26/2022 by Esme Faria MA (Declined at this time) CHIEF COMPLAINT: Pre-op exam HPI: Ruddy Ruvalcaba is a 53 year old seen for PAC due to scheduled above surgery because of OA left knee. 06/01/2023, Dr. Heath Delgado HPI: Ruddy Ruvalcaba is a 52 year old patient with the presenting complaint of New and Pain of the LeftKnee. 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 The problem began limiting activities 1-6 months ago. Ruddy reports a current pain level of 9 (Knee-Left). He describes the pain as Aching, Throbbing, Sharp. The pain is Continuous . Interventions tried include Medication, Cold, Relaxation, Positioning. FALL RISK: Ruddy is at risk for falls. He has had either 2 falls in the last year or at least 1 fall with injury and/or is currently using an ambulatory assitive device (walker, cane, wheelchair, crutches, etc.) The following interventions were put in place to prevent falls this visit: Placed "Falling Man Sign" on Door PROMIS Physical Function Score 11/28/2021 PROMIS CAT Physical Function T-Score 35 (moderate dysfunction) Percentile 7 FUNCTIONAL STATUS: Walk indoors, such as around the house (1.75 METs) Take care of self, that is eating, dressing, bathing, using the toilet (2.75 METs) PREVIOUS TREATMENTS: Last knee-related PT visit: 01/19/2022 (Knee - Right) Most recent knee injection: Large Joint Arthro/Inj: L knee joint (injected on 05/17/2023 by Darleen Lopez) Last Knee Surgery: 12/01/2021 with Miguel Laguna Past anti-inflammatory medications (not necessarily for this reason for visit): celecoxib, dexamethasone sodium phosphate, etodolac, ketorolac tromethamine, meloxicam, prednisone,triamcinolone acetonide Medical Treatments: Steroid Injections Left Knee Physical Therapy: Use of Ambulatory Aid, Shoe Wear, Braces, Orthotics, etc., and Activities Modified Previous Surgery: Ligament Reconstruction REVIEW OF SYSTEMS: General: No weight loss, malaise or fevers. Neurological: No history of TIA's, stroke, IMPORT/EXPORT AGENT tumor, impaired sensorium, hemiplegia, paraplegia orquadraplegia. No neurological symptoms or problems. Respiratory: Positive for: tobacco use. Negative for: asthma, COPD, pneumonia within 6 weeks, URI < 2 weeks and obstructive sleep apnea. Cardiovascular: Positive for: hypertension (on rx) Negative for: anticoagulation therapy, arrhythmia, atrial fibrillation, CAD, chest pain, CHF, congenital heart defect, DVT/PE, hyperlipidemia, recent MN, murmur/valvular heart disease, PVD, open heart surgery and valve surgery. GI: Positive for: liver disease (fatty liver, hx) : Positive for: nephrolithiasis (hx, asymptomatic). Negative for: BPH, urinary incontinence, renal failure and urinary tract infection. Endocrine: [...] psychiatric symptoms or problems. Musculoskeletal: See HPI. +right TKA +spinal cord stimulator in place, not operating Skin: Negative for lesions, rash and itching. PAST MEDICAL HISTORY Diagnosis Date Bilateral renal [...] Tobacco Use Smoking status: Every Day Packs/day: .25 Types: Cigarettes Start date: 10/20/1988 Smokeless tobacco: Never Tobacco comments: 0.5 ppd since 2011 Vaping Use Vaping Use: Never used Substance Use Topics Alcohol use: Not Currently Drug use: Not Currently Types: Marijuana Prior to Admission medications as of 08/28/23 0934 Medication Sig Last Dose Taking HYDROcodone-acetaminophen (NORCO) 5-325 mg per tablet Take 1 tablet by mouth every 6 hours as needed for pain for up to 14 days. Do not start before August 26, 2023. Taking Yes labetalol (TRANDATE) 200 mg tablet Take 1.5 tablets by mouth three times a day. Taking Yes erythromycin (ROMYCIN) 5 mg/gram (0.5 %) ophthalmic ointment 1 application daily at bedtime. TakingYes lisinopril (ZESTRIL) 40 mg tablet Take 1 tablet by mouth twice daily. Taking Yes No medication comments found. ALLERGIES No Known Allergies Objective PHYSICAL EXAM: General: alert and oriented (x3), healthy appearance and obese. Pertinent negatives noted - not distressed. Skin: [...] ASSESSMENT: Pain Pain Level: 8 Pain Location: Knee-Left Description: Aching, Throbbing (weakness) Duration Amount of Time: 4 Duration Units: Months Frequency: Continuous Intervention/Comfort measure: Medication, Cold VITALS: BP 142/88 Pulse 79 Temp (Src) 97.3 (Temporal) Resp 16 Ht 5' 10" (1.78m) Wt 266 lb (120.7kg) SpO2 96% BMI 38.17 kg/(m^2). Diagnostic tests reviewed for today's visit: [...] range. ABSCREEN No results within date range. Hemoglobin A1C (%) Date Value 11/15/2021 5.4 No results found for this or any previous visit (from the past 8760 hour(s)). Recent Results (from the past 21300 hour(s)) ECHO Collection Time: 08/29/22 2:45 PM Impression CONCLUSIONS: - Technically difficult exam due [...] to the ER for elevated blood pressure. - The patient has not had a prior CC echocardiographic exam for comparison. * * * Final * * * Instructions Given to Patient: Instructions located in the after visit summary. Patient given verbal and written preop instructions and voices comprehension and compliance. SIGNATURE: Margie Barrera APRN.CNP PATIENT NAME: Ruddy Ruvalcaba DATE: August 28, 2023 TIME: 9:34 AM PAGER/CONTACT #: [facility]06-10-[facility]24 History and physical note* Margie Barrera APRN.CNP - 08/28/2023 9:34 AM EDT HISTORY AND PHYSICAL EXAMINATION SERVICE DATE: 08/28/2023 SERVICE TIME: 10:29 AM PRIMARY CARE PHYSICIAN: Jossy Natarajan APRN.[employer] MACHINE Assessment Patient has the following medical conditions which may affect liza-operative course: RSD (reflex sympathetic dystrophy) Assessment: hx, rx as needed Hypertension, essential Assessment: sub-optimal control, requesting cardiology optimization appt along with completely Lexiscan previously ordered by Dr. Almeida 01/2023. Last 14 BP Last 14 Encounter BP Readings: Date: BP: 08/28/2023 142/88 07/10/2023 144/92 04/20/2023 162/100 02/03/2023 160/95 01/20/2023 168/108 12/29/2022 178/108 12/24/2022 182/102 12/15/2022 182/102 12/14/2022 197/115 11/29/2022 170/90 11/17/2022 194/102 11/07/2022 174/100 11/04/2022 200/104[Ascencion notifie dof blood pressure- patient follows with PCP due to elevated blood pressure.[ 10/24/2022 148/74 Mixed hyperlipidemia Assessment: diet controlled Tobacco smoker, 1 pack of cigarettes or less per day Assessment: 0.5ppd, denies asthma or COPD S/P knee replacement Assessment: hx right TKA, still painful per pt S/P insertion of spinal cord stimulator Assessment: hx, still in place but not operating Class 2 severe obesity due to excess calories with serious comorbidity and body mass index (BMI) of38.0 to 38.9 in adult (HCC) Assessment: Body mass index is 38.17 kg/m . MONROY (dyspnea on exertion) Assessment: pt had Lexiscan ordered 01/2023 by cardiology has not yet completed. Pt aware this needs completed and follow up with cardiology to proceed with surgery. Pt verbalized understanding. 02/03/2023 Dr. Munguia ASSESSMENT/PLAN: 1. Hypertension, unspecified type - ICD9: 401.9, ICD10: I10 (primary diagnosis) - Uncontrolled, but he does have several triggers including smoking, diet rich in deli meat, untreated reflex sympathetic dystrophy, possible sleep apnea, and obesity. I do not think he has secondaryhypertension, but I will order a workup for [...] be contributing to his elevated blood pressures. Moisés Munguia MD Mariscal Activity Status Index: METS: Climb a flight of stairs or walk up a hill (5.50 METs) DASI Score: 5.5 Patient denies any chest pain or undue shortness of breath with the above physical activity. Clinical Frailty Scale: 3. Well, with treated comorbid disease STOP-Bang Score: Snores loudly Has or is being treated for high blood pressure BMI greater than 35 kg/m^2 Patient over 50 years old Has a large neck Male patient Denies feeling tired, fatigued, or sleepy during the daytime Has not been observed to stop breathing or choking/gasping during sleep STOP-Bang Score: 6 [id number] Score: Age: <65 Sex: male CHF history: No Hypertension history: Yes Stroke/TIA/thromboembolism history: No Vascular disease history: No Diabetes history: No [id number] Score: 1 ARISCAT Score: Age: 51-80 Preoperative SpO2: >=96% Respiratory infection in the last month: No Preoperative anemia: Yes Surgical incision: peripheral Duration of surgery: 2-3 hrs Emergency procedure: No ARISCAT Score: 30 ANESTHESIA FINDINGS: Intubation History: No history of difficult intubation Significant Anesthesia Considerations: none Airway History: No history of difficult airway I - PHYSICAL EVALUATION AIRWAY Patient intubated: No. Tracheostomy tube not present Mallampati: III. TM distance: >3 FB. Neck ROM: full ROM without neurological symptoms. Mouth opening: adequate. Short neck: no. Thick neck: yes Thomas present: yes Lip Bite Test: I Microretrognathia/Micronagthia/Recessed Chin: No DENTAL Dentures, upper: partial. Dentures, lower: partial. II - ANESTHESIA PLAN Anesthetic Plan: other Beta [place] Monitoring Plan Post Procedure Analgesic Plan Informed Consent Anesthetic risks, benefits, alternatives, personnel and consent discussed: yes. Patient / Responsible Alliance Party agrees to proceed: yes Patient / Surrogate agrees to blood products: blood products not planned Discussed the possibility of lip / dental damage: yes Prepared for Surgery: optimally prepared for surgery, pending [see comment]. Labs Cardiology appt requested for uncontrolled HTN and MONROY. Dr. Almeida previously ordered Lexiscan 01/2023 pt has not yet completed as well. CONSULTS: The following consults have been initiated at this time: cardiology. Planned Anesthetic: other anesthesia choice The Following Tests/Procedures Have Been Initiated: Orders Placed This Encounter >CBC + AUTO DIFF Standing Status: Future Number of Occurrences: 1 Standing Expiration Date: 11/27/2023 >CMP Standing Status: Future Number of Occurrences: 1 Standing Expiration Date: 11/27/2023 >HGB A1c (Today or soon) Standing Status: Future Number of Occurrences: 1 Standing Expiration Date: 11/27/2023 Staphylococcus aureus & MRSA Screen, PCR, Nasal REASON FOR VISIT: Ruddy Ruvalcaba is a 53 year old male who is scheduled for Procedure(s): ROBOTIC ASSISTED TOTAL KNEE ARTHROPLASTY (Left) at the request of Dr. Heath Delgado for consultation. My final recommendation will be [...] Serious Comorbidity and Body Mass Index (Bmi) of38.0 to 38.9 in Adult (Hcc) Post-Traumatic Osteoarthritis of Right Knee Tobacco Smoker, 1 Pack of Cigarettes Or Less Per Day S/P Knee Replacement Nicotine use disorder, F17.2 Hypertensive Urgency Headache Mixed Hyperlipidemia Left Flank Pain Hypertension, Essential Left Knee Pain Left Hamstring Muscle Strain Left Leg Pain Monroy (Dyspnea On Exertion) COVID-19 Immunization Status Overdue - Covid-19 Vaccine (2022-) Never done 11/26/2021 Postponed until 11/26/2022 by Esme Faria MA (Declined at this time) CHIEF COMPLAINT: Pre-op exam HPI: Ruddy Ruvalcaba is a 53 year old seen for PAC due to scheduled above surgery because of OA left knee. 06/01/2023, Dr. Heath Delgado HPI: Ruddy Ruvalcaba is a 52 year old patient with the presenting complaint of New and Pain of the LeftKnee. 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 The problem began limiting activities 1-6 months ago. Ruddy reports a current pain level of 9 (Knee-Left). He describes the pain as Aching, Throbbing, Sharp. The pain is Continuous . Interventions tried include Medication, Cold, Relaxation, Positioning. FALL RISK: Ruddy is at risk for falls. He has had either 2 falls in the last year or at least 1 fall with injury and/or is currently using an ambulatory assitive device (walker, cane, wheelchair, crutches, etc.) The following interventions were put in place to prevent falls this visit: Placed "Falling Man Sign" on Door PROMIS Physical Function Score 11/28/2021 PROMIS CAT Physical Function T-Score 35 (moderate dysfunction) Percentile 7 FUNCTIONAL STATUS: Walk indoors, such as around the house (1.75 METs) Take care of self, that is eating, dressing, bathing, using the toilet (2.75 METs) PREVIOUS TREATMENTS: Last knee-related PT visit: 01/19/2022 (Knee - Right) Most recent knee injection: Large Joint Arthro/Inj: L knee joint (injected on 05/17/2023 by Darleen Lopez) Last Knee Surgery: 12/01/2021 with Miguel Laguna Past anti-inflammatory medications (not necessarily for this reason for visit): celecoxib, dexamethasone sodium phosphate, etodolac, ketorolac tromethamine, meloxicam, prednisone,triamcinolone acetonide Medical Treatments: Steroid Injections Left Knee Physical Therapy: Use of Ambulatory Aid, Shoe Wear, Braces, Orthotics, etc., and Activities Modified Previous Surgery: Ligament Reconstruction REVIEW OF SYSTEMS: General: No weight loss, malaise or fevers. Neurological: No history of TIA's, stroke, IMPORT/EXPORT AGENT tumor, impaired sensorium, hemiplegia, paraplegia orquadraplegia. No neurological symptoms or problems. Respiratory: Positive for: tobacco use. Negative for: asthma, COPD, pneumonia within 6 weeks, URI < 2 weeks and obstructive sleep apnea. Cardiovascular: Positive for: hypertension (on rx) Negative for: anticoagulation therapy, arrhythmia, atrial fibrillation, CAD, chest pain, CHF, congenital heart defect, DVT/PE, hyperlipidemia, recent MN, murmur/valvular heart disease, PVD, open heart surgery and valve surgery. GI: Positive for: liver disease (fatty liver, hx) : Positive for: nephrolithiasis (hx, asymptomatic). Negative for: BPH, urinary incontinence, renal failure and urinary tract infection. Endocrine: [...] psychiatric symptoms or problems. Musculoskeletal: See HPI. +right TKA +spinal cord stimulator in place, not operating Skin: Negative for lesions, rash and itching. PAST MEDICAL HISTORY Diagnosis Date Bilateral renal [...] Tobacco Use Smoking status: Every Day Packs/day: .25 Types: Cigarettes Start date: 10/20/1988 Smokeless tobacco: Never Tobacco comments: 0.5 ppd since 2012 Vaping Use Vaping Use: Never used Substance Use Topics Alcohol use: Not Currently Drug use: Not Currently Types: Marijuana Prior to Admission medications as of 08/28/23 0934 Medication Sig Last Dose Taking HYDROcodone-acetaminophen (NORCO) 5-325 mg per tablet Take 1 tablet by mouth every 6 hours as needed for pain for up to 14 days. Do not start before August 26, 2023. Taking Yes labetalol (TRANDATE) 200 mg tablet Take 1.5 tablets by mouth three times a day. Taking Yes erythromycin (ROMYCIN) 5 mg/gram (0.5 %) ophthalmic ointment 1 application daily at bedtime. TakingYes lisinopril (ZESTRIL) 40 mg tablet Take 1 tablet by mouth twice daily. Taking Yes No medication comments found. ALLERGIES No Known Allergies Objective PHYSICAL EXAM: General: alert and oriented (x3), healthy appearance and obese. Pertinent negatives noted - not distressed. Skin: [...] ASSESSMENT: Pain Pain Level: 8 Pain Location: Knee-Left Description: Aching, Throbbing (weakness) Duration Amount of Time: 4 Duration Units: Months Frequency: Continuous Intervention/Comfort measure: Medication, Cold VITALS: BP 142/88 Pulse 79 Temp (Src) 97.3 (Temporal) Resp 16 Ht 5' 10" (1.78m) Wt 266 lb (120.7kg) SpO2 96% BMI 38.17 kg/(m^2). Diagnostic tests reviewed for today's visit: [...] range. ABSCREEN No results within date range. Hemoglobin A1C (%) Date Value 11/15/2021 5.4 No results found for this or any previous visit (from the past 8760 hour(s)). Recent Results (from the past 34762 hour(s)) ECHO Collection Time: 08/29/22 2:45 PM Impression CONCLUSIONS: - Technically difficult exam due [...] to the ER for elevated blood pressure. - The patient has not had a prior [facility] echocardiographic exam for comparison. * * * Final * * * Instructions Given to Patient: Instructions located in the after visit summary. Patient given verbal and written preop instructions and voices comprehension and compliance. SIGNATURE: Margie Barrera APRN.CNP PATIENT NAME: Ruddy Ruvalcaba DATE: August 28, 2023 TIME: 9:34 AM PAGER/CONTACT #: [facility] Tele[facility] encounter Note * Telephone Encounter - Esme Faria MA - 08/24/2023 3:21 PM EDT Patient requesting refills as follows: Last Office Visit 07/10/23 NOV none. Last Refill 08/12/23 see patient's comment. Requested Prescriptions Pending Prescriptions Disp Refills HYDROcodone-acetaminophen (NORCO) 5-325 mg per tablet 56 tablet 0 Sig: Take 1 tablet by mouth every 6 hours as needed for pain for up to 14 days. Please review and advise. Esme Faria MA [facility]06-06-2024 Miscellaneous Notes* Telephone Encounter - Esme Faria MA - 08/24/2023 3:21 PM EDT Patient requesting refills as follows: Last Office Visit 07/10/23 NOV none. Last Refill 08/12/23 see patient's comment. Requested Prescriptions Pending Prescriptions Disp Refills HYDROcodone-acetaminophen (NORCO) 5-325 mg per tablet 56 tablet 0 Sig: Take 1 tablet by mouth every 6 hours as needed for pain for up to 14 days. Please review and advise. Esme Faria MA documented in this encounterBet[facility] Telephone encounter Note * Telephone Encounter - Luiz Polanco MA - 08/11/2023 11:46 AM EDT I spoke to pharmacist they are aware. Luiz Polanco MA [facility]05-24-[facility] Miscellaneous Notes* Telephone Encounter - Luiz Polanco MA - 08/11/2023 11:46 AM EDT I spoke to pharmacist they are aware. Luiz Polanco MA * Telephone Encounter - Luiz Polanco MA - 08/11/2023 11:45 AM EDT I called patient three times. The phone is fuzzy. I told him all information. Unsure if he could hear. I told him I will send my chart message. Luiz Polanco MA * Telephone Encounter - Jossy Natarajan APRN.CNP - 08/11/2023 11:30 AM EDT Please let the patient know that I can fill it for 14 days but it may not be filled until 08/17/23. Please call [facility] in [place] and let them know that the most recent order is the right one. Fill dateof 08/12/23 please. * Telephone Encounter - Luiz Polanco MA - 08/11/2023 9:43 AM EDT Second call requesting refills: going on vacation Last office visit 07/10/2023. Last refill 08/07/2023 . Requested Prescriptions Pending Prescriptions Disp Refills HYDROcodone-acetaminophen (NORCO) 5-325 mg per tablet 28 tablet 0 Sig: Take 1 tablet by mouth every 6 hours as needed for pain for up to 7 days. Please review and advise. Luiz Polanco MA documented in this encounterBet[facility] Telephone encounter Note * Telephone Encounter - Luiz Polanco MA - 08/11/2023 11:45 AM EDT I called patient three times. The phone is fuzzy. I told him all information. Unsure if he could hear. I told him I will send my chart message. Luiz Polanco MA [facility] Telephone encounter Note* Telephone Encounter - Jossy Natarajan APRN.CNP - 08/11/2023 11:30 AM EDT Please let the patient know that I can fill it for 14 days but it may not be filled until 08/17/23. Please call [facility] in [place] and let them know that the most recent order is the right one. Fill dateof 08/12/23 please. [facility]05-[facility] Telephone encounter Note* Telephone Encounter - Luiz Polanco MA - 08/11/2023 9:43 AM EDT Second call requesting refills: going on vacation Last office visit 07/10/2023. Last refill 08/07/2023 . Requested Prescriptions Pending Prescriptions Disp Refills HYDROcodone-acetaminophen (NORCO) 5-325 mg per tablet 28 tablet 0 Sig: Take 1 tablet by mouth every 6 hours as needed for pain for up to 7 days. Please review and advise. Luiz Polanco MA [facility]05-20-2024 Telephone encounter Note* Telephone Encounter - Esme Faria MA - 08/07/2023 7:47 AM EDT Patient requesting refills as follows: Last Office Visit 07/10/23 NOV none. Last Refill 07/31/23. Requested Prescriptions Pending Prescriptions Disp Refills HYDROcodone-acetaminophen (NORCO) 5-325 mg per tablet 28 tablet 0 Sig: Take 1 tablet by mouth every 6 hours as needed for pain for up to 7 days. Please review and advise. Esme Faria MA [facility]05-20-2024 Miscellaneous Notes* Telephone Encounter - Esme Faria MA - 08/07/2023 7:47 AM EDT Patient requesting refills as follows: Last Office Visit 07/10/23 NOV none. Last Refill 07/31/23. Requested Prescriptions Pending Prescriptions Disp Refills HYDROcodone-acetaminophen (NORCO) 5-325 mg per tablet 28 tablet 0 Sig: Take 1 tablet by mouth every 6 hours as needed for pain for up to 7 days. Please review and advise. 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 Pt owns walker, cane. Discussed with patient importance of attending joint education class and provided date and times ofclass: YES TKA 12/09 Patient received Joint Education Binder: Yes Plans discharge home with [facility]. 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 Pt owns walker, cane. Discussed with patient importance of attending joint education class and provided date and times ofclass: YES TKA 12/09 Patient received Joint Education Binder: Yes Plans discharge home with C. SIGNATURE: ANGEL Valdivia PATIENT NAME: Ruddy Ruvalcaba DATE: August 02, 2023 TIME: 7:41 AM documented in this encounterBethesda [facility] Hospital05-13-2024 Telephone encounter Note * Telephone Encounter - Luiz Polanco MA - 07/31/2023 8:38 AM EDT Patient requesting refills: Last office visit 07/10/2023. Last refill 07/24/2023 nov none Requested Prescriptions Pending Prescriptions Disp Refills HYDROcodone-acetaminophen (NORCO) 5-325 mg per tablet 28 tablet 0 Sig: Take 1 tablet by mouth every 6 hours as needed for pain for up to 7 days. Please review and advise. Luiz Polanco MA [facility]05-13-2024 Miscellaneous Notes* Telephone Encounter - Luiz Polanco MA - 07/31/2023 8:38 AM EDT Patient requesting refills: Last office visit 07/10/2023. Last refill 07/24/2023Jan none Requested Prescriptions Pending Prescriptions Disp Refills HYDROcodone-acetaminophen (NORCO) 5-325 mg per tablet 28 tablet 0 Sig: Take 1 tablet by mouth every 6 hours as needed for pain for up to 7 days. Please review and advise. Luiz Polanco MA documented in this encounterBethesda North Hospital05-06-2024 Miscellaneous Notes* Telephone Encounter - Esme Faria MA - 07/24/2023 7:46 AM EDT Patient requesting refills as follows: Last Office Visit 07/10/23 NOV none. Last Refill 07/17/23. Requested Prescriptions Pending Prescriptions Disp Refills HYDROcodone-acetaminophen (NORCO) 5-325 mg per tablet 28 tablet 0 Sig: Take 1 tablet by mouth every 6 hours as needed for pain for up to 7 days. Please review and advise. Esme Faria MA documented in this encounterBethesda North Hospital05-06-2024 Telephone encounter Note * Telephone Encounter - Esme Faria MA - 07/24/2023 7:46 AM EDT Patient requesting refills as follows: Last Office Visit 07/10/23 NOV none. Last Refill 07/17/23. Requested Prescriptions Pending Prescriptions Disp Refills HYDROcodone-acetaminophen (NORCO) 5-325 mg per tablet 28 tablet 0 Sig: Take 1 tablet by mouth every 6 hours as needed for pain for up to 7 days. Please review and advise. Esme Faria MA [facility]04-29-[facility] Telephone encounter Note* Telephone Encounter - Luiz Polanco MA - 07/17/2023 8:15 AM EDT Patient requesting refills: Last office visit 07/10/2023. Last refill 07/10/2023 nov none Requested Prescriptions Pending Prescriptions Disp Refills HYDROcodone-acetaminophen (NORCO) 5-325 mg per tablet 28 tablet 0 Sig: Take 1 tablet by mouth every 6 hours as needed for pain for up to 7 days. Please review and advise. Luiz Polanco MA [facility]04-29-2024 Miscellaneous Notes* Telephone Encounter - Luiz Polanco MA - 07/17/2023 8:15 AM EDT Patient requesting refills: Last office visit 07/10/2023. Last refill 07/10/2023 nov none Requested Prescriptions Pending Prescriptions Disp Refills HYDROcodone-acetaminophen (NORCO) 5-325 mg per tablet 28 tablet 0 Sig: Take 1 tablet by mouth every 6 hours as needed for pain for up to 7 days. Please review and advise. Luiz Polanco MA documented in this encounterBethesda North Hospital04-22-2024 History of Present illness Narrative* Jossy Ntaarajan APRN.CERAMIC COATER MACHINE - 07/10/2023 4:56 PM EDT CHIEF COMPLAINT: Ruddy Ruvalcaba is a 53 year old male who presents for follow up for left knee pain, left leg pain, and RSD. He continues to have severe 10/10 pain since he injured his left hamstring in March. His pain has been managed with [facility] as needed and was referred to pain management but he was using marijuana to help him sleep so narcotics were not continued under their management. He is following with orthopedics, Dr. Delgado, who plans on doing an extensive knee surgery on his left knee in September. He had a steroid injection at the end of April so he had to wait for 3 months. He has been cutting back on smoking cigarettes and is limiting his marijuana use. He states it's the only thing that helps him actually sleep. BP has been more controlled on current regimen of Labetalol and Lisinopril. PAST MEDICAL HISTORY Diagnosis Date Bilateral renal [...] Tobacco Use Smoking status: Every Day Packs/day: .25 Types: Cigarettes Start date: 10/20/1988 Smokeless tobacco: Never Tobacco comments: 0.5 ppd since 2011 Vaping Use Vaping Use: [...] up to 7 days. 21 tablet 0 labetalol (TRANDATE) 200 mg tablet Take 1.5 tablets by mouth three times a day. 270 tablet 1 erythromycin (ROMYCIN) 5 mg/gram (0.5 %) ophthalmic ointment 1 application daily at bedtime. lisinopril (ZESTRIL) 40 mg tablet Take 1 tablet by mouth twice daily. 180 tablet 1 Current Facility-Administered Medications Medication Dose Route Frequency Provider Last Rate Last Admin perflutren lipid microspheres 1.3 mL in NaCl (PF) 0.9% 10 mL injection (DEFINITY) INTRAVENOUS DIRECTED PRN Jossy Natarajan, BRYANNA.AINSLEY sodium chloride 0.9 % (flush) 10 mL (BD POSIFLUSH) 10 mL INTRAVENOUS DIRECTED PRN Jossy Natarajan, BRYANNA.AINSLEY Review of Systems Constitutional: Negative. Respiratory: Negative. Cardiovascular: Negative. Gastrointestinal: Negative. Musculoskeletal: Positive for arthralgias (b/l knees), gait problem (using crutches) and myalgias. Skin: Negative. Neurological: Positive for weakness (left leg). Negative for numbness. BP 142/88 Pulse 86 Temp 98.1 Resp 16 Ht 5' 10" (1.78m) Wt 263 lb (119.3kg) SpO2 97% BMI 37.74 kg/(m^2). Physical Exam Vitals and nursing note reviewed. Constitutional: Appearance: He is obese. Cardiovascular: Rate and Rhythm: Regular rhythm. Heart sounds: Normal heart sounds. Pulmonary: Breath sounds: Normal breath sounds. Musculoskeletal: Left knee: Swelling and deformity present. Decreased range of motion. Tenderness present. Skin: General: Skin is warm and dry. Neurological: Mental Status: He is alert and oriented to person, place, and time. Motor: Weakness (left leg) present. Comments: Using crutches with ambulation Psychiatric: Mood and Affect: Mood normal. Behavior: Behavior normal. Cognition and Memory: Cognition normal. ASSESSMENT/PLAN: 1. Post-traumatic osteoarthritis of right knee - ICD9: 715.26, ICD10: M17.31 (primary diagnosis) - Following with orthopedics, plan for surgery in September 2. Left knee pain, unspecified chronicity - ICD9: 719.46, ICD10: M25.562 - Will continue pain management until surgery. He was strongly advised to stop using marijuana. Patient states understanding. - HYDROCODONE 5 MG-ACETAMINOPHEN 325 MG TABLET 3. Strain of left hamstring muscle, initial encounter - ICD9: 843.8, ICD10: S76.312A - HYDROCODONE 5 MG-ACETAMINOPHEN 325 MG TABLET 4. Left leg pain - ICD9: 729.5, ICD10: M79.605 - HYDROCODONE 5 MG-ACETAMINOPHEN 325 MG TABLET 5. RSD (reflex sympathetic dystrophy) - ICD9: 337.20, ICD10: G90.50 - Complicates care 6. Hypertension, essential - ICD9: 401.9, ICD10: I10 - Improving control - Continue current medications - Recommend home blood pressure monitoring, to bring results to next visit - Encouraged sodium restriction, DASH or Mediterranean diet - Recommend regular aerobic exercise - Discussed need for and benefit of weight loss. BMI 37.74 kg/(m^2) New medication(s) prescribed today: None. Counseling completed in adopting health behaviors such as avoiding excessive alcohol use, avoid tobacco use, improve nutrition, and engage in physical activities. Copy of written care plan, clinical summary, treatment plan, new medications, goals, and self management requirements were given to patient. Jossy Natarajan APRN.AINSLEY documented in this encounterBethesda North Hospital04-17-2024 Miscellaneous Notes* Telephone Encounter - Carlene Hussein MA - 07/05/2023 9:24 AM EDT patient electronically requesting refills as follows: Last seen 04/20/23 . Last refill 06/29/23 . Requested Prescriptions Pending Prescriptions Disp Refills HYDROcodone-acetaminophen (NORCO) 5-325 mg per tablet 21 tablet 0 Sig: Take 1 tablet by mouth every 8 hours as needed for pain for up to 7 days. Please review and advise. Carlene Hussein MA documented in this encounterBethesda North Hospital04-10-2024 Miscellaneous Notes* Telephone Encounter - Luiz Polanco MA - 06/28/2023 7:16 AM EDT pharm requesting refills: Last office visit 04/20/2023. Last refill 06/21/2023 nov 07/10/2023 Requested Prescriptions Pending Prescriptions Disp Refills HYDROcodone-acetaminophen (NORCO) 5-325 mg per tablet 21 tablet 0 Sig: Take 1 tablet by mouth every 8 hours as needed for pain for up to 7 days. Please review and advise. Luiz Polanco MA documented in this encounterBethesda North Hospital04-03-2024 Miscellaneous Notes* Telephone Encounter - Jihan Godwin APRN.CNP - 06/21/2023 12:13 PM EDT [facility] report from previous 12 months checked and validated. All prescriptions have been APPROPRIATELY filled. No suspicious activity was identified. Jihan Godwin APRN.AINSLEY * Telephone Encounter - Carlene Hussein MA - 06/21/2023 10:02 AM EDT patient electronically requesting refills as follows: Last seen 04/20/23 . Last refill 06/15/23 . Next office visit 07/10/23 Requested Prescriptions Pending Prescriptions Disp Refills HYDROcodone-acetaminophen (NORCO) 5-325 mg per tablet 21 tablet 0 Sig: Take 1 tablet by mouth every 8 hours as needed for pain for up to 7 days. Please review and advise. Carlene Hussein MA documented in this encounterBethesda North Hospital03-21-2024 History of Present illness Narrative* Micaela Flowers APRN.CNP - 06/08/2023 3:20 PM EDT Images from the original note were not included. [facility] Today's Date: 06/08/2023 Name: Ruddy Ruvalcaba : 1970 Purpose: New Patient Consultation Chief complaint: left knee pain Referring Clinician: Jossy Natarajan CNP Pertinent Past Medical History: RSD, headaches, HTN, HLD, Pertinent Past Surgeries: right TKR Interval History: Overall pain and functional disability since last visit: Unchanged New Complaints since last visit: No PAIN DESCRIPTION: Timing: Constant Character: Aching, Sharp, Shooting, Stabbing, Throbbing Primary Location: left knee Radiation: none Exacerbating factors: Everything Relieving factors: Nothing Interferes with: physical activity and household cleaning [facility]. Patient is scheduled for the knee replaced however had to be postponed until September 17 due to patient having the steroid injection. Patient states that his pain continues to be interfering with his activities of daily living. Stating that the Percocet is what is helping with his pain at this point. Patient states his PCP has been providing this medication. Patient states he does not know how he would get by without the medication because that is what allows him to be able to continue to carry out his activities of daily living. Patient states the surgeon said physical therapy is not recommended. Current Pain Medications: Neuropathics: NSAIDS: iburofen Muscle Relaxants: Topicals: Other Prescription or OTC Pain Medications: tylenol Opioids (when applicable): Hydrocodone-acetaminophen 5/325 mg Anti-depressants or Mood-Stabilizers: None Anti-Coagulants: None Tolerating Medication: Yes Medications helping improve ADL's and Self-care: Yes Anti-depressants or Mood-Stabilizers: None Anti-Coagulants: None Therapies Attended (Current or Most Recent): No Current Therapies 05/26/2023 AG SPINE COMBINATION Questionnaire GREENLIGHT Completed Date 05/26/2023 Questionnaire Opiod Risk Tool Completed Date 05/26/2023 Comments 0 No question data found. (All drug screens are appropriate unless indicated otherwise) Notabl e Events During Course of Treatment: History of Present Illness (HPI): 05/25/2023 - Initial HPI (Obtained by Micaela Flowers CNP). DURATION AND ONSET: The pain complaint has been present for approximately 2 months. The pain had a sudden onset. The mechanism of injury is unknown. RED FLAG SYMPTOMS: leg weakness. PAIN DESCRIPTION: Timing: Constant Character: Aching, Sharp, Shooting, Stabbing, Throbbing Primary Location: left knee Radiation: none Exacerbating factors: Everything Relieving factors: Nothing Interferes with: physical activity and household cleaning Patient is here today with increased pain in his left knee. Patient stating he has had this pain for about 2 months. Patient states he was moving an item when he felt a pop in the back of his leg. Patient has seen a surgeon and they removed fluid and also did an injection. The surgeon talked to oliver and he is meeting with another surgeon this coming up week regarding potential surgery for his left knee. Patient states he has had left knee pain in the past, has had 2 ACL repairs in his knee. Patient also has had CRPS in his left knee patient has had a spinal cord stimulator which he no longer uses for this left knee to treat the CRPS. Patient stating his PCP is currently giving him medication to help with the pain. Is taking hydrocodone which is helping to take the edge off. Patient states she uses Tylenol and or ibuprofen which is not helping with the pain much. Current Pain Medications: Neuropathics: NSAIDS: iburofen Muscle Relaxants: Topicals: Other Prescription or OTC Pain Medications: tylenol Opioids (when applicable): Hydrocodone-acetaminophen 5/325 mg Anti-depressants or Mood-Stabilizers: None Anti-Coagulants: None Therapies Attended (Current or Most Recent): N/A 05/26/2023 AG SPINE COMBINATION Questionnaire GREENLIGHT Completed Date 05/26/2023 Questionnaire Opiod Risk Tool Completed Date 05/26/2023 Comments 0 No question data found. (All drug screens are appropriate unless indicated otherwise) Treatment History: PAIN PROCEDURES: DATE PROCEDURE IMPROVEMENT 05/17/2023 Left knee I/A CSI with Dr Lopez No relief MEDICATIONS Taken TO DATE (for the chief complaint(s)): Neuropathics: Neurontin (Gabapentin), Lyrica (Prebabalin)ineffective NSAIDS: Motrin (Ibuprofen) Muscle Relaxants: None Topicals: Other Prescription or OTC Pain Medications: Tylenol (Acetaminophen) Opioids: Hydrocodone (eg [facility]) Compliance: PDMP website checked and validated on 06/08/2023 by Micaela Flowers APRN.CERAMIC COATER MACHINE All prescriptions have been APPROPRIATELY filled. No suspicious activity was identified. 05/26/2023 AG SPINE COMBINATION Questionnaire GREENLIGHT Completed Date 05/26/2023 Questionnaire Opiod Risk Tool Completed Date 05/26/2023 Comments 0 (All drug screens are appropriate unless indicated otherwise) Risk Assessment: WILD-7: 05/26/2023 WILD - 7 SCORES Score 0 (0-4) minimal anxiety, (5-9) mild anxiety, (10-14) moderate anxiety, (15-21) severe anxiety PHQ-9: 05/26/2023 PHQ-9 Score 1 (0-4) minimal depression, (5-9) mild depression, (10-14) moderate depression, (15-19) moderately severe depression, (20-27) severe depression No question data found. Diagnostic Studies: Relevant Imaging: MRI Spine Report No resulted procedures found. 05/17/2023 12:49 PM - Radiology, [facility] In Impression IMPRESSION: 1. Bilateral hip osteoarthrosis 2. Advanced left knee osteoarthrosis Bi Tester: VÍCTOR Transcribe Date/Time: May 17 2023 12:44P Dictated by : SOFIYA LOPEZ MD This examination was interpreted and the report reviewed and electronically signed by: SOFIYA LOPEZ MD on May 17 2023 12:47PM EST Results-Findings * * *Final Report* * * DATE OF EXAM: May 17 2023 12:15PM KOLBY [id number] - XR HIP 3V PELV+ AP/LAT LT / PROCEDURE REASON: multiple diagnoses * * * * Physician Interpretation * * * * PROCEDURE: Pelvic and left hip, left knee INDICATION: Left knee pain, unspecified chronicity .LEFT KNEE PAIN (accession [id number]), STRAIN OF LEFT HAMSTRING MUSCLE (accession [id number]) TECHNIQUE: XR KNEE 4V AP/PA BOTH+LAT/EDGARD LT, XR HIP 3V PELV+ AP/LAT LT COMPARISON: Left knee 12/13/2021, limited views, left knee 04/16/2018, pelvis and right hip 08/01/2022 FINDINGS: Pelvis and left hip: Stimulator device in the right buttock region with a lead extending towards the lumbar spine, incompletely visualized. Mild axial and moderate medial hip joint space narrowing bilaterally, not significantly changed. Minimal marginal spur formation. No fracture or dislocation. Sacroiliac joints and symphysis pubis are maintained. No avulsion fracture from the initial tuberosity. Left knee: Postoperative changes consistent with prior ACL reconstruction. Stable hardware. Severe medial joint compartment narrowing with tricompartment spur formation. Joint effusion. No fracture. Right TKA is evident. 05/17/2023 12:49 PM - Radiology, O[facility] In Impression IMPRESSION: 1. Bilateral hip osteoarthrosis 2. Advanced left knee osteoarthrosis Bi Tester: [facility] Transcribe Date/Time: May 17 2023 12:44P Dictated by : SOFIYA LOPEZ MD This examination was interpreted and the report reviewed and electronically signed by: SOFIYA LOPEZ MD on May 17 2023 12:47PM EST Results-Findings * * *Final Report* * * DATE OF EXAM: May 17 2023 10:37AM KOLBY [id number] - XR KNEE 4V AP/PA BOTH+LAT/EDGARD LT / PROCEDURE REASON: M25.562-Left knee pain, unspecified chronicity * * * * Physician Interpretation * * * * PROCEDURE: Pelvic and left hip, left knee INDICATION: Left knee pain, unspecified chronicity .LEFT KNEE PAIN (accession [id number]), STRAIN OF LEFT HAMSTRING MUSCLE (accession [id number]) TECHNIQUE: XR KNEE 4V AP/PA BOTH+LAT/EDGARD LT, XR HIP 3V PELV+ AP/LAT LT COMPARISON: Left knee 12/13/2021, limited views, left knee 04/16/2018, pelvis and right hip 08/01/2022 FINDINGS: Pelvis and left hip: Stimulator device in the right buttock region with a lead extending towards the lumbar spine, incompletely visualized. Mild axial and moderate medial hip joint space narrowing bilaterally, not significantly changed. Minimal marginal spur formation. No fracture or dislocation. Sacroiliac joints and symphysis pubis are maintained. No avulsion fracture from the initial tuberosity. Left knee: Postoperative changes consistent with prior ACL reconstruction. Stable hardware. Severe medial joint compartment narrowing with tricompartment spur formation. Joint effusion. No fracture. Right TKA is evident. Electrodiagnostic Study (EMG): None Recent Labs: Creatinine Date Value Ref Range Status 12/12/2022 1.04 0.73 - 1.22 mg/dL Final No results found for: "EGFR" Glucose, Point of Care Date Value Ref Range Status 12/01/2021 136 (A) 74 - 99 mg/dL Final Comment: Location:[facility], [place], [address] [place] [address], [id number] The Accu-Chek Inform II glucose meter has not been approved for testing on patients receiving intensive medical intervention or therapy and results from this point of care glucose test should not be used for patient management decisions in these cases. Inaccurate results may also occur from other interfering factors, such as N-acetylcysteine (blood concentrations of greater than 5mg/dL), galactose, extremes of hematocrit (<10 or >65), or high doses of ascorbic acid (vitamin C) greater than 3mg/dL. Consider alternate testing mechanisms (e.g. core lab, blood gas instrument) in the above situations. Current Medications, Past Medical History, Past Surgical History, Family History, Social History and Review of Systems: On today's date, noted above, I have confirmed and edited as necessary, the PFSH and ROS obtained by others. Physical Exam: 06/08/23 1459 Pulse: 79 Resp: 18 SpO2: 97% Physical Exam Vitals reviewed. Constitutional: General: He is not in acute distress. Appearance: He is not ill-appearing. HENT: Head: Normocephalic and atraumatic. Eyes: Conjunctiva/sclera: Conjunctivae normal. Cardiovascular: Pulses: Normal pulses. Pulmonary: Effort: Pulmonary effort is normal. No respiratory distress. Musculoskeletal: Right knee: Crepitus present. Decreased range of motion. Tenderness present. Left knee: Crepitus present. Decreased range of motion. Tenderness present over the MCL, LCL, ACL and PCL. Instability Tests: Anterior drawer test positive. Posterior drawer test positive. Medial Traci test positive and lateral Traci test positive. Legs: Comments: Midline scar left knee well heal Below the right knee scar with uneven region under right knee appears slightly concaved proximal medial to right knee Right knee is cool to touch when compared to the left knee. Both knees appear jaylin in color Skin: General: Skin is warm and dry. Neurological: Mental Status: He is alert and oriented to person, place, and time. Psychiatric: Mood and Affect: Mood and affect normal. Behavior: Behavior normal. Behavior is cooperative. IMPRESSION: 52 year old male presents with complaint(s) of Left knee pain. We had the patient signed a pain agreement and UDS was done today. I discussed pain medication with Dr. Alexander and he had agreed to provide medication as his PCP had been ordering it until he had a surgery September 17. After patientread the pain agreement patient realized that he would be in violation as he smokes marijuana nightly to help with sleeping anxiety. At this point we will not provide opioid therapy the patient is aware of this and is in agreement with this. Patient is aware that he may not be a candidate to continue with his opioid therapy with his PCP as well Due to the use of marijuana. Diagnoses: (G90.50) RSD (reflex sympathetic dystrophy) (primary encounter diagnosis) (M25.562, G89.29) Chronic pain of left knee PLAN: Ruddy Ruvalcaba would benefit from the following to reach personal goals for decreasing pain, improving function and work participation, and/or improving quality of life: Medications: No Changes - Continue Current Medications Will notify PCP regarding the rationale and not providing opioid therapy. Interventional Procedures: None Studies: None Functional Tenriism: NONE Referrals: No additional considerations at present Follow-up: PRN Depending on response to the above plan, consider: Sympathetic nerve block vs short term opioid therapy Compliance and Clinic Policies Reviewed and/or Discussed Today: None Attribution: In addition to reviewing the information noted above, some elements copied from my most recent clinical note(s), including the physical exam (completed in entirety today), and the impression and plan sections, have been updated where appropriate. All reflect current medical decision making from today's date. Micaela Flowers APRN.[facility] [facility] * Kia Odom MA - 06/08/2023 2:55 PM EDT Review of Systems Constitutional: Negative for activity change, chills, fever and unexpected weight change. Gastrointestinal: Negative for bowel retention or incontinence Genitourinary: Negative for difficulty urinating. Negative for bladder retention or incontinence Musculoskeletal: Positive for arthralgias, gait problem, joint swelling and myalgias. Negative for back pain, neck pain and neck stiffness. Neurological: Negative for weakness, numbness and headaches. Psychiatric/Behavioral: Positive for sleep disturbance. Negative for dysphoric mood and suicidal ideas. The patient is not nervous/anxious. documented in this [facility]24 Miscellaneous Notes* Telephone Encounter - Carlene Hussein MA - 06/08/2023 10:11 AM EDT patient electronically requesting refills as follows: Last seen 04/20/23 . Last refill 06/02/23 . Requested Prescriptions Pending Prescriptions Disp Refills HYDROcodone-acetaminophen (NORCO) 5-325 mg per tablet 21 tablet 0 Sig: Take 1 tablet by mouth every 8 hours as needed for pain for up to 7 days. Please review and advise. Carlene Hussein MA documented in this encounterBet[facility]03-14-2024 Miscellaneous Notes* Telephone Encounter - Carlene Hussein MA - 06/01/2023 10:35 AM EDT patient electronically requesting refills as follows: Last seen 04/20/23 . Last refill 05/26/23 . Requested Prescriptions Pending Prescriptions Disp Refills HYDROcodone-acetaminophen (NORCO) 5-325 mg per tablet 21 tablet 0 Sig: Take 1 tablet by mouth every 8 hours as needed for pain for up to 7 days. Please review and advise. Carlene Hussein MA documented in this [facility]03-14-2024 History of Present illness Narrative* Heath Delgado MD - 06/01/2023 7:58 AM EDT Images from the original note were not included. CONSULT ORTHOPAEDIC: KNEE PRIMARY CARE PHYSICIAN: Jossy Natarajan APRN.[employer]ACHINE REFERRING PROVIDER: SELF ASSESSMENT & PLAN Impression: Ruddy is a 52-year-old man with posttraumatic arthritis of the left knee that is severe in nature.He is already undergone conservative management. He has had 3 ACL surgeries. Unfortunately he also has RSD of that extremity. We have discussed a very long length surgical intervention in the form ofa knee replacement versus continued conservative management. He would like to proceed with surgery.I did caution him very carefully that his RSD would not improve with a joint replacement, and this would be meant to get rid of the deep arthritic pain, but that his RSD will certainly contribute to a longer more difficult recovery and the majority of cases which she understands. I have told him to quit smoking. I have discussed elevated risk of infection with BMI, smoking, andprevious surgery which she understands. Of note he also had a right total knee replacement done, press-fit components, with Dr. Laguna approximately 2 years ago. He does have ligamentous instability on exam on that side and would be a candidate for revision based on symptoms. He also needs repeat imaging of the right side of work and consider revision, as his press-fit components may not have ingrowth. All questions were answered today. Will proceed with left robotic knee replacement as discussed. Diagnoses: (M17.32) Post-traumatic osteoarthritis of left knee (primary encounter diagnosis) (M25.562, G89.29) Chronic pain of left knee (T84.018A, Z96.659) Failure of total knee replacement, initial encounter (HCC) (HCC) Based upon the evaluation today and after discussions with Ruddy Ruvalcaba, Ruddy Lanier Peg has significant, worsening pain at the knee. This pain is increased with activity and weight bearing, andinterferes with activities of daily living. These symptoms have continued despite a number of non-surgical measures, including a trial of oral pain medication and attempted physical therapy/ structured exercise program and/or use of an assistive device/ bracing (for at least 12 weeks unless the patient was unable to tolerate these measures as discussed above). At this point, the patient will not benefit from further PT due to the severity of their condition. The patient's physical examination is consistent with limitations in range of motion, pain with passive range of motion, crepitus, and effusion/ synovitis. These examination findings are corroborated by imaging findings of joint space narrowing, periarticular osteophyte formation, and subchondral sclerosis. The patient has been treated by the practice and all reasonable treatments have failed to control the disease, which causes significant pain and limits activities of daily living. The patient has failed conservative treatment and joint replacement surgery was discussed and agreed upon by both provider and patient. We will proceed with surgical management to improve function and relieve pain refractory to non-surgical measures. Left Primary Total Knee Arthroplasty as evidenced by six months of unsuccessful non-operative treatment as outlined in the HPI below and progressive symptoms. Progressive Symptoms Include: Pain worsened by weight bearing Pain effecting living situation Pain limiting ability to stay fit and healthy Unable to ambulate 2 blocks without significant pain and dysfunction . Surgery Details Date and Location: At [facility] [address] Implants: [place] Robotic: Yes Predicted LOS: 2 days (Inpatient candidate) Informed consent obtained in the office today. The risks and benefits of surgery were discussed at length including but not limited to the risks of infection, bleeding, nerve or blood vessel injury, deep venous thrombosis, pulmonary embolism, arthrofibrosis, reflex sympathetic dystrophy, , paralysis, knee or patellar dislocation, extensor mechanism injury, bone fracture, component loosening or failure requiring re-operation or amputation. Informed consent was obtained and the patient was scheduled for surgery. We also discussed fixation strategies including cement and cementless fixation and advantages and disadvantages of each. We discussed the details of the surgery as well as rehabilitation. All questions were answered, and the patient wishes to proceed with surgery.. The patient has been ordered: Office Visit on 06/01/23 CT KNEE WO IVCON LEFT CT Ruddy Ruvalcaba meets the following criteria for CT: sun CONSULTS: IMPACT/PACE Consult for preoperative clearance. Total Joint Arthroplasty: Risk Calculator Ruddy Ruvalcaba has a 8.19% chance of NOT returning home at discharge for a Primary total Knee replacement. Ruddy's estimated Length of Stay is 2 days (Inpatient candidate). Ruddy's 30 day chance of readmission is 3.58%. Readmission Probability 3.58 % (within 30 days following surgery) Estimated LOS 2 days Discharge Disposition Probability D/C to Home 91.81 % D/C to SNF 8.19 % These calculations are based on the following factors: - 52 years of age - sex is male - BMI of 37 kg/m2 - NarxCare score of 341 - 1 hospitalizations in the last 12 months - no history of heart disease - no history of diabetes - no history of COPD - history of anemia - preoperative ambulation: impaired home distances - 2 step(s) to enter home - bed location is NOT on the first floor - bath location is NOT on the first floor - caregiver is consistent - home is not more than 150 miles away - PROMIS-10 Mental Health T score 50+ - Marital status: Risk Factors for Total Knee Arthroplasty (TKA) Major Risk Factors Obesity Moderate Risk High: BMI > 40 Moderate: BMI 30-40 Normal: BMI < 30 Diabetes normal High: A1C > 8 Moderate: A1C 7-8 Normal: A1C < 7 Hx of DVT / PE normal High: dx of DVT / PE Normal: no dx of DVT / PE Smoking High Risk High: Current smoker Normal: Non smoker Narcotics Use High Risk High:NarxCare >=300 Moderate: 100-299 Normal: 0-99 Depression normal High: PHQ-9 >14 Moderate: PHQ-9 5-14 Normal: PHQ-9 < 5 Area Deprivation Index (ESTEPHANIA) High Risk High: ESTEPHANIA Score > 75 Moderate: ESTEPHANIA 50-75 Normal: ESTEPHANIA < 50 Obesity: weight management recommended BMI Readings from Last 3 Encounters: 04/20/23 : 37.74 kg/m 02/03/23 : 37.77 kg/m 01/20/23 : 37.45 kg/m Ruddy is a smoker. It is recommended that he receive a consult for smoking cessation and complete 30 days of no tobacco use prior to surgery. Area Deprivation Index (ESTEPHANIA) 11/01/2021 08/23/2022 ESTEPHANIA Score National Score 87 90 Patient Health Questionnaire (PHQ-9) 05/26/2023 PHQ-9 PHQ-2 Score 1 PHQ-9 Score 1 (0-4) minimal depression, (5-9) mild depression, (10-14) moderate depression, (15-19) moderately severe depression, (20-27) severe depression Bone Density Risk Screen Ruddy Ruvalcaba is low risk for bone loss based on his age and having no previous diagnoses of osteopenia, osteoporosis, Paget's disease of bone, or cancer of bone. Other risk factors are listed below to determine if they pose a significant risk for bone loss, andif so, recommend ordering a bone densitometry and, upon receiving a result, as needed, order a consult to a bone health specialist (Rheumatology, Endocrinology, or Women's Health) for bone assessment. Risk Factors: History of falls Hx of Renal Calculi Dx of Chronic Kidney Disease (CKD) Current Smoker Prednisone or use of systemic steroids Additional Risk Factors Anemia Hemoglobin (g/dL) Date Value 12/12/2022 13.8 09/01/2022 14.0 NarxCare score NARX Narcotics: 341 (06/01/2023 8:27 AM) Recommend a consult to Chronic Pain Management. Past Orthopaedic Surgery: Ruddy had knee surgery on 12/01/2021 with Miguel Laguna. ACTIVE PROBLEM LIST Rsd (Reflex Sympathetic Dystrophy) Uncontrolled Hypertension S/P Insertion of Spinal Cord Stimulator Complex Tear of Medial Meniscus of Right Knee As Current Injury Chronic Postoperative Pain Tear of Lateral Meniscus of Right Knee, Current Rupture of Anterior Cruciate Ligament of Right Knee Headaches Class 2 Severe Obesity Due to Excess Calories With Serious Comorbidity and Body Mass Index (Bmi) of35.0 to 35.9 in Adult (Hcc) Post-Traumatic Osteoarthritis of Right Knee Tobacco Smoker, 1 Pack of Cigarettes Or Less Per Day S/P Knee Replacement Nicotine use disorder, F17.2 Obesity, Class I, Bmi 30-34.9 Hypertensive Urgency Headache Mixed Hyperlipidemia Left Flank Pain SUBJECTIVE CHIEF COMPLAINT: Knee Pain HPI: Ruddy Ruvalcaba is a 52 year old patient with the presenting complaint of New and Pain of the LeftKnee. 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 The problem began limiting activities 1-6 months ago. Ruddy reports a current pain level of 9 (Knee-Left). He describes the pain as Aching, Throbbing, Sharp. The pain is Continuous . Interventions tried include Medication, Cold, Relaxation, Positioning. FALL RISK: Ruddy is at risk for falls. He has had either 2 falls in the last year or at least 1 fall with injury and/or is currently using an ambulatory assitive device (walker, cane, wheelchair, crutches, etc.) The following interventions were put in place to prevent falls this visit: Placed "Falling Man Sign" on Door PROMIS Physical Function Score 11/28/2021 PROMIS CAT Physical Function T-Score 35 (moderate dysfunction) Percentile 7 FUNCTIONAL STATUS: Walk indoors, such as around the house (1.75 METs) Take care of self, that is eating, dressing, bathing, using the toilet (2.75 METs) PREVIOUS TREATMENTS: Last knee-related PT visit: 01/19/2022 (Knee - Right) Most recent knee injection: Large Joint Arthro/Inj: L knee joint (injected on 05/17/2023 by Darleen Lopez) Last Knee Surgery: 12/01/2021 with Miguel Laguna Past anti-inflammatory medications (not necessarily for this reason for visit): celecoxib, dexamethasone sodium phosphate, etodolac, ketorolac tromethamine, meloxicam, prednisone,triamcinolone acetonide Medical Treatments: Steroid Injections Left Knee Physical Therapy: Use of Ambulatory Aid, Shoe Wear, Braces, Orthotics, etc., and Activities Modified Previous Surgery: Ligament Reconstruction REVIEW OF SYSTEMS: PAIN ASSESSMENT: See HPI. MUSCULOSKELETAL: See HPI. 06/01/2023 Malnutrition Screening Tool (MST) Lost Weight Recently Without Trying? If Yes, Amount of Weight Loss(lbs) 0:No Eating Poorly Because of a Decreased Appetite 0:No Weight Loss Score (Calculated) 0 Appetite Score (Calculated) 0 Total MST Score (Calculated) 0 PAST MEDICAL HISTORY Diagnosis Date Bilateral renal [...] Smoking status: Every Day Packs/day: .5 Types: Cigarettes Start date: 10/20/1988 Smokeless tobacco: Never Tobacco comments: 0.5 ppd since 2011 Vaping Use Vaping Use: Never used Substance Use Topics Alcohol use: Not Currently Drug use: Not Currently Types: Marijuana ALLERGIES: Patient has no known allergies. MEDICATIONS: HYDROcodone-acetaminophen (NORCO) 5-325 mg per tablet^Take 1 tablet by mouth every 8 hours as needed for pain for up to 7 days.^Disp: 21 tablet^Rfl: 0 labetalol (TRANDATE) 200 mg tablet^Take 1.5 tablets by mouth three times a day.^Disp: 270 tablet^Rfl: 1 chlorthalidone (HYGROTON) 50 mg tablet^Take 1 tablet by mouth once daily.^Disp: 90 tablet^Rfl: 1 erythromycin (ROMYCIN) 5 mg/gram (0.5 %) ophthalmic ointment^1 application daily at bedtime.^Disp: ^Rfl: hydrALAZINE (APRESOLINE) 50 mg tablet^Take 2 tablets by mouth three times a day.^Disp: 270 tablet^Rfl: 0 lisinopril (ZESTRIL) 40 mg tablet^Take 1 tablet by mouth twice daily.^Disp: 180 tablet^Rfl: 1 finasteride (PROSCAR) 5 mg tablet^Take 1 tablet by mouth once daily.^Disp: 90 tablet^Rfl: 1 amLODIPine (NORVASC) 10 mg tablet^Take 1 tablet by mouth once daily.^Disp: 30 tablet^Rfl: 2 OBJECTIVE PHYSICAL EXAM: There were no vitals taken for this visit. All other systems deferred. GENERAL: Appears healthy, well-nourished, no deformities. HABITUS: Normal GAIT: Antalgic to the left KNEE EXAM: Left: Alignment: Fixed Varus Range of motion is 5 degrees in extension and 110 degrees of flexion. Extension La degrees Pain with ROM: Yes Effusion: Slight Tender to the palpation of Medial femoral condyle, Lateral femoral condyle, Medial joint line, and Lateral joint line Pain with patellar compression: Yes Stability: Anterior/Posterior stable and Varus/Valgus stable Hip Exam: flexion to 100+ degrees, full extension, internal/external rotation adequate, and no painwith log roll Neurovascular Status: Sensation Intact, Moves foot and ankle up & down, and 2+ dorsalis pedis DATA: He was last seen in orthopaedic clinic for his knee/leg on 05/17/2023 with Darleen Lopez. Most recent knee imaging was completed on 05/17/2023 (XR KNEE GENERAL 4V AP BOTH/PA BOTH/LAT/MERC LEFT). Attached is imaging for the order.The last knee-related PT visit was completed on 01/19/2022 (Knee- Right). The most recent knee injection was Large Joint Arthro/Inj: L knee joint, injected on 05/17/2023 by Darleen Lopez. Ruddy had knee surgery on 12/01/2021 with Miguel Laguna. Diagnostic tests reviewed for today's visit: Left knee X-Ray: Severe tri-compartmental degeneration The following conditions were addressed during the office visit today: Obesity - Weight management strategies were discussed including diet and exercise. A Consult to Weight Management will be completed to follow up on the plan of care. Smoking - Cessation counseling was performed. We discussed the risks associated with smoking and Total Joint Arthroplasty. Smoking cessation consult will be completed to follow up on the plan of care. Chronic narcotic use - Opiate medication appropriate use counseling SIGNATURE: Heath Delgado MD PATIENT NAME: Ruddy Ruvalcaba DATE: June 01, 2023 TIME: 8:01 AM I spent a total of approximately 35 minutes on the date of the service which included preparing to see the patient, [id number] patient care, completing clinical documentation, obtaining and/or reviewing separately obtained history, performing a medically appropriate examination, counseling and educating the patient/family/caregiver, ordering medications, tests, or procedures, communicating withother HCPs (not separately reported), independently interpreting results (not separately reported),communicating results to the patient/family/caregiver, and care coordination (not separately reported). documented in this encounterBet[facility]03-08-2024 Miscellaneous Notes* Telephone Encounter - Carlene Hussein MA - 05/26/2023 4:12 PM EST patient electronically requesting refills as follows: Last seen 04/20/23 . Last refill 05/19/23 . Requested Prescriptions Pending Prescriptions Disp Refills HYDROcodone-acetaminophen (NORCO) 5-325 mg per tablet 21 tablet 0 Sig: Take 1 tablet by mouth every 8 hours as needed for pain for up to 7 days. Please review and advise. Carlene Hussein MA documented in this encounterBethesda [facility] Hospital03-08-2024 Miscellaneous Notes* Telephone Encounter - Micaela Flowers APRN.CNP - 05/26/2023 1:01 PM EST I called the patient and explained to him regarding the spinal cord stimulator which is in the note. Patient stated understanding. * Telephone Encounter - Magda Mireles - 05/26/2023 12:20 PM EST Pt called regarding a message he received from Micaela Flowers CNP after his appt today. He states hedid not understand message. Voicemail cut in and out. Would like to know if she can call him back. documented in this encounterBethesda [facility] Hospital03-08-2024 History of Present illness Narrative* Micaela Flowers APRN.CNP - 05/26/2023 9:00 AM EST Images from the original note were not included. [facility] Today's Date: 05/26/2023 Name: Ruddy Ruvalcaba : 1970 Purpose: New Patient Consultation Chief complaint: left knee pain Referring Clinician: Jossy Natarajan CNP Pertinent Past Medical History: RSD, headaches, HTN, HLD, Pertinent Past Surgeries: right TKR History of Present Illness (HPI): 05/25/2023 - Initial HPI (Obtained by Micaela Flowers CNP). DURATION AND ONSET: The pain complaint has been present for approximately 2 months. The pain had a sudden onset. The mechanism of injury is unknown. RED FLAG SYMPTOMS: leg weakness. PAIN DESCRIPTION: Timing: Constant Character: Aching, Sharp, Shooting, Stabbing, Throbbing Primary Location: left knee Radiation: none Exacerbating factors: Everything Relieving factors: Nothing Interferes with: physical activity and household cleaning Patient is here today with increased pain in his left knee. Patient stating he has had this pain for about 2 months. Patient states he was moving an item when he felt a pop in the back of his leg. Patient has seen a surgeon and they removed fluid and also did an injection. The surgeon talked to oliver and he is meeting with another surgeon this coming up week regarding potential surgery for his left knee. Patient states he has had left knee pain in the past, has had 2 ACL repairs in his knee. Patient also has had CRPS in his left knee patient has had a spinal cord stimulator which he no longer uses for this left knee to treat the CRPS. Patient stating his PCP is currently giving him medication to help with the pain. Is taking hydrocodone which is helping to take the edge off. Patient states she uses Tylenol and or ibuprofen which is not helping with the pain much. Current Pain Medications: Neuropathics: NSAIDS: iburofen Muscle Relaxants: Topicals: Other Prescription or OTC Pain Medications: tylenol Opioids (when applicable): Hydrocodone-acetaminophen 5/325 mg Anti-depressants or Mood-Stabilizers: None Anti-Coagulants: None Therapies Attended (Current or Most Recent): N/A AG SPINE COMBINATION 05/26/2023 Questionnaire GREENLIGHT Completed Date 05/26/2023 Questionnaire Opiod Risk Tool Completed Date 05/26/2023 Comments 0 Greenlight Questionnaire GREENLIGHT Completed Date 05/26/2023 Opioid Risk Tool Opiod Risk Tool Date Completed 05/26/2023 Comments 0 WILD-7 Anxiety Score 0 Completed Date 05/26/2023 PHQ9P Score 1 Completed Date 05/26/2023 (All drug screens are appropriate unless indicated otherwise) Treatment History: PAIN PROCEDURES: DATE PROCEDURE IMPROVEMENT 05/17/2023 Left knee I/A CSI with Dr Lopez No relief MEDICATIONS Taken TO DATE (for the chief complaint(s)): Neuropathics: Neurontin (Gabapentin), Lyrica (Prebabalin)ineffective NSAIDS: Motrin (Ibuprofen) Muscle Relaxants: None Topicals: Other Prescription or OTC Pain Medications: Tylenol (Acetaminophen) Opioids: Hydrocodone (eg [place]) Compliance: PDMP website checked and validated on 05/26/2023 by Micaela Flowers APRN.[employer]ACHINE All prescriptions have been APPROPRIATELY filled. No suspicious activity was identified. AG SPINE COMBINATION 05/26/2023 Questionnaire GREENLIGHT Completed Date 05/26/2023 Questionnaire Opiod Risk Tool Completed Date 05/26/2023 Comments 0 (All drug screens are appropriate unless indicated otherwise) Risk Assessment: WILD-7: WILD - 7 SCORES 05/26/2023 WILD-7 Score 0 (0-4) minimal anxiety, (5-9) mild anxiety, (10-14) moderate anxiety, (15-21) severe anxiety PHQ-9: PHQ-9 05/26/2023 Score 1 (0-4) minimal depression, (5-9) mild depression, (10-14) moderate depression, (15-19) moderately severe depression, (20-27) severe depression Greenlight Questionnaire GREENLIGHT Completed Date 05/26/2023 Opioid Risk Tool Opiod Risk Tool Date Completed 05/26/2023 Comments 0 WILD-7 Anxiety Score 0 Completed Date 05/26/2023 PHQ9P Score 1 Completed Date 05/26/2023 Diagnostic Studies: Relevant Imaging: MRI Spine Report No resulted procedures found. 05/17/2023 12:49 PM - Radiology, Oru In Impression IMPRESSION: 1. Bilateral hip osteoarthrosis 2. Advanced left knee osteoarthrosis Bi T[facility] Transcribe Date/Time: May 17 2023 12:44P Dictated by : SOFIYA LOPEZ MD This examination was interpreted and the report reviewed and electronically signed by: SOFIYA LOPEZ MD on May 17 2023 12:47PM EST Results-Findings * * *Final Report* * * DATE OF EXAM: May 17 2023 12:15PM KLOBY [id number] - XR HIP 3V PELV+ AP/LAT LT / PROCEDURE REASON: multiple diagnoses * * * * Physician Interpretation * * * * PROCEDURE: Pelvic and left hip, left knee INDICATION: Left knee pain, unspecified chronicity .LEFT KNEE PAIN (accession [id number]), STRAIN OF LEFT HAMSTRING MUSCLE (accession [id number]) TECHNIQUE: XR KNEE 4V AP/PA BOTH+LAT/EDGARD LT, XR HIP 3V PELV+ AP/LAT LT COMPARISON: Left knee 12/13/2021, limited views, left knee 04/16/2018, pelvis and right hip 08/01/2022 FINDINGS: Pelvis and left hip: Stimulator device in the right buttock region with a lead extending towards the lumbar spine, incompletely visualized. Mild axial and moderate medial hip joint space narrowing bilaterally, not significantly changed. Minimal marginal spur formation. No fracture or dislocation. Sacroiliac joints and symphysis pubis are maintained. No avulsion fracture from the initial tuberosity. Left knee: Postoperative changes consistent with prior ACL reconstruction. Stable hardware. Severe medial joint compartment narrowing with tricompartment spur formation. Joint effusion. No fracture. Right TKA is evident. 05/17/2023 12:49 PM - Radiology, Oru In Impression IMPRESSION: 1. Bilateral hip osteoarthrosis 2. Advanced left knee osteoarthrosis Bi Tester: [facility] Transcribe Date/Time: May 17 2023 12:44P Dictated by : SOFIYA LOPEZ MD This examination was interpreted and the report reviewed and electronically signed by: SOFIYA LOPEZ MD on May 17 2023 12:47PM EST Results-Findings * * *Final Report* * * DATE OF EXAM: May 17 2023 10:37AM KOLBY [id number] - XR KNEE 4V AP/PA BOTH+LAT/EDGARD LT / PROCEDURE REASON: M25.562-Left knee pain, unspecified chronicity * * * * Physician Interpretation * * * * PROCEDURE: Pelvic and left hip, left knee INDICATION: Left knee pain, unspecified chronicity .LEFT KNEE PAIN (accession [id number]), STRAIN OF LEFT HAMSTRING MUSCLE (accession [id number]) TECHNIQUE: XR KNEE 4V AP/PA BOTH+LAT/EDGARD LT, XR HIP 3V PELV+ AP/LAT LT COMPARISON: Left knee 12/13/2021, limited views, left knee 04/16/2018, pelvis and right hip 08/01/2022 FINDINGS: Pelvis and left hip: Stimulator device in the right buttock region with a lead extending towards the lumbar spine, incompletely visualized. Mild axial and moderate medial hip joint space narrowing bilaterally, not significantly changed. Minimal marginal spur formation. No fracture or dislocation. Sacroiliac joints and symphysis pubis are maintained. No avulsion fracture from the initial tuberosity. Left knee: Postoperative changes consistent with prior ACL reconstruction. Stable hardware. Severe medial joint compartment narrowing with tricompartment spur formation. Joint effusion. No fracture. Right TKA is evident. Electrodiagnostic Study (EMG): None Recent Labs: Creatinine Date Value Ref Range Status 12/12/2022 1.04 0.73 - 1.22 mg/dL Final No results found for: "EGFR" Glucose, Point of Care Date Value Ref Range Status 12/01/2021 136 (A) 74 - 99 mg/dL Final Comment: Location:[facility] [place], [address] [place] [address], [id number] The Accu-Chek Inform II glucose meter has not been approved for testing on patients receiving intensive medical intervention or therapy and results from this point of care glucose test should not be used for patient management decisions in these cases. Inaccurate results may also occur from other interfering factors, such as N-acetylcysteine (blood concentrations of greater than 5mg/dL), galactose, extremes of hematocrit (<10 or >65), or high doses of ascorbic acid (vitamin C) greater than 3mg/dL. Consider alternate testing mechanisms (e.g. core lab, blood gas instrument) in the above situations. Current Medications, Past Medical History, Past Surgical History, Family History, Social History and Review of Systems: On today's date, noted above, I have confirmed and edited as necessary, the [facility] and ROS obtained by others. Physical Exam: 05/26/23 0852 Pulse: 87 Resp: 18 SpO2: 97% Physical Exam Vitals reviewed. Constitutional: General: He is not in acute distress. Appearance: He is not ill-appearing. HENT: Head: Normocephalic and atraumatic. Eyes: Conjunctiva/sclera: Conjunctivae normal. Cardiovascular: Pulses: Normal pulses. Pulmonary: Effort: Pulmonary effort is normal. No respiratory distress. Musculoskeletal: Right knee: Crepitus present. Decreased range of motion. Tenderness present. Left knee: Crepitus present. Decreased range of motion. Tenderness present over the MCL, LCL, ACL and PCL. Instability Tests: Anterior drawer test positive. Posterior drawer test positive. Medial Traci test positive and lateral Traci test positive. Legs: Comments: Midline scar left knee well heal Below the right knee scar with uneven region under right knee appears slightly concaved proximal medial to right knee Right knee is cool to touch when compared to the left knee. Both knees appear jaylin in color Skin: General: Skin is warm and dry. Neurological: Mental Status: He is alert and oriented to person, place, and time. Psychiatric: Mood and Affect: Mood and affect normal. Behavior: Behavior normal. Behavior is cooperative. IMPRESSION: 52 year old male presents with complaint(s) of Left knee pain. Patient has had this pain for approximately 2 months. Patient has had past surgery on the knee, has set had ACL repair. Patient has also had CRPS of the left knee due to an injury. Patient has spinal cord stimulator to help manage his CPRS pain which she no longer uses. I contacted [employer] as it is a Dyn spinal cord stimulator and the battery did get shut off in 2014.the spinal cord stimulator was inserted in 2005. Patient is scheduled to see a surgeon next week. The surgeon he saw initially is concerned about the CRPS and having another surgery assess his condition to develop a plan of care. After review of imaging and assessment, it is evident there is disease in his left knee however I am also concerned that the CRPS may be playing a partial role in his pain. Patient has been receiving pain medication from his primary care to help with his pain. At this point we will can continue with this however I will speak to my collaborating physician as the PCP is concerned about continuing opioid therapy. Will follow-up with the patient in 2 weeks after he has been evaluated by the surgeon and develop aplan of care accordingly. Diagnoses: (G90.50) RSD (reflex sympathetic dystrophy) (primary encounter diagnosis) (M25.562, G89.29) Chronic pain of left knee PLAN: Ruddy Ruvalcaba would benefit from the following to reach personal goals for decreasing pain, improving function and work participation, and/or improving quality of life: Medications: No Changes - Continue Current Medications Interventional Procedures: None Studies: None Functional Tenriism: NONE Referrals: No additional considerations at present Follow-up: 2 weeks Depending on response to the above plan, consider: Sympathetic nerve block vs short term opioid therapy Compliance and Clinic Policies Reviewed and/or Discussed Today: None Attribution: In addition to reviewing the information noted above, some elements copied from my most recent clinical note(s), including the physical exam (completed in entirety today), and the impression and plan sections, have been updated where appropriate. All reflect current medical decision making from today's date. Micaela Flowers APRN.[employer] Pain [facility] * Kia Odom MA - 05/26/2023 8:50 AM EST Review of Systems Constitutional: Negative for activity change, chills, fever and unexpected weight change. Gastrointestinal: Negative for bowel retention or incontinence Genitourinary: Negative for difficulty urinating. Negative for bladder retention or incontinence Musculoskeletal: Positive for arthralgias, gait problem, joint swelling and myalgias. Negative for back pain, neck pain and neck stiffness. Neurological: Positive for weakness and headaches. Negative for numbness. Psychiatric/Behavioral: Positive for sleep disturbance. Negative for dysphoric mood and suicidal ideas. The patient is not nervous/anxious. documented in this encounterBethes[facility] Hospital02-28-2024 NoteSF Pathologist CommentsMixed inflammatory cells. Some clumping limiting evaluation.05/17/2023 7:[address] [facility]02[facility] History of Present illness Narrative* Ruddy Parks - 05/17/2023 12:02 PM EST PT ASSESSMENT - CASTING ROOM Ruddy presents for Application of brace. Applied R medial OA Reaction knee brace to Right knee Patient has been instructed in Care of brace.. Ruddy Duggan documented in this encounterBethesda North Hospital02-28-2024 History of Present illness Narrative* Darleen Lopez DO - 05/17/2023 11:24 AM EST Associated Order(s): Large Joint Arthro/Inj: L knee joint Large Joint Arthro/Inj: L knee joint Informed Consent Consent Obtained: Verbal Cactus Protocol A moment to CARE was completed. SIGN IN Personnel directly involved with the procedure wore the appropriate PPE. Special Equipment: Yes Patient/Surrogate Stated/Verified: Patient name, Date of , Relevant allergies and Intended procedure TIME OUT Intended patient and procedure match the source document(s). Consent documented and matches the intended procedure. Relevant labs, photos, and/or imaging studies have been reviewed. Correct side/site marked and visible. Medications required for procedure verified. Fire risk assessed and interventions discussed. No implant(s) inserted. 05/17/2023 2:23 PM The procedure site was prepped in the usual sterile fashion. Site: L knee joint Aspirate: clear and yellow Medications: 80 mg triamcinolone acetonide 40 mg/mL Anesthetics: 8 mL BUPivacaine (PF) 0.5 % (5 mg/mL) Outcome: Tolerated well, no immediate complications Post-injection instructions were reviewed with the patient and the patient voiced understanding of these instructions. SIGN OUT All instruments, equipment, possible retained foreign bodies accounted for. Reason for Visit/Chief Complaint Ruddy Ruvalcaba is a 52 year old male who presents today for a new evaluation of following complaint: Patient presents with: Left Knee - Knee Pain, New History of Present Illness: PAIN EVALUATION 05/17/2023 1120 Pain Level: 10 Pain Location: Knee-Left Description: Sore;Aching;Sharp;Shooting Duration Amount of Time: 6 Duration Units: Weeks Frequency: Intermittent HPI: Ruddy Ruvalcaba is a 52 year old male presenting today with left knee pain. Patient was well until about 8 weeks ago when he felt a pop in his knee while lifting a couch. He continues to have severe pain in the joint. Extensive surgical history (see chart). Pain history is noted as above. Denies calf pain, numbness, tingling, fever, chills or other constitutional symptoms. Previous Treatments: Ice: Yes Heat: No Brace: No NSAIDs: Yes, ibuprofen, tylenol, norco Injections: No Surgeries: Yes, see chart Physical Therapy: No Review of Systems: Patient did not have, and does not currently have, any weight loss, malaise, fever, chills, headache, chest pain, chest pressure, palpitations, cough, shortness of breath, orthopnea, paroxsymal nocturnal dyspnea, nausea, vomiting, diarrhea, constipation, melena, hematochezia, urinary difficulties, prolonged bleeding, easily bruising, heat or cold intolerance, new onset joint pain or swelling, newonset extremity weakness or numbness, new onset auditory or visual disturbances, lightheadedness, dizziness, partial loss of consciousness or full loss of consciousness. Current Outpatient Medications on File Prior to Visit Medication Sig HYDROcodone-acetaminophen (NORCO) 5-325 mg per tablet Take 1 tablet by mouth every 8 hours as needed for pain for up to 7 days. labetalol (TRANDATE) 200 mg tablet Take 1.5 tablets by mouth three times a day. chlorthalidone (HYGROTON) 50 mg tablet Take 1 tablet by mouth once daily. erythromycin (ROMYCIN) 5 mg/gram (0.5 %) ophthalmic ointment 1 application daily at bedtime. lisinopril (ZESTRIL) 40 mg tablet Take 1 tablet by mouth twice daily. finasteride (PROSCAR) 5 mg tablet Take 1 tablet by mouth once daily. amLODIPine (NORVASC) 10 mg tablet Take 1 tablet by mouth once daily. hydrALAZINE (APRESOLINE) 50 mg tablet Take 2 tablets by mouth three times a day. Current Facility-Administered Medications on File Prior to Visit Medication perflutren lipid microspheres 1.3 mL in NaCl (PF) 0.9% 10 mL injection (DEFINITY) sodium chloride 0.9 % (flush) 10 mL (BD POSIFLUSH) ALLERGIES No Known Allergies Physical Exam: Vitals: There were no vitals taken for this visit. Psych: Pleasant, good affect and mood General Appearance: Well appearing, alert, in no acute distress, well-hydrated, well nourished.. Skin: Skin color, texture, turgor normal, no suspicious rashes or lesions. Peripheral Pulses: Normal. Neurologic: Gait normal. Reflexes normal and symmetric. Sensation grossly intact.. Lymph Nodes: No cervical lymphadenopathy, No supraclavicular lymphadenopathy, No axillary lymphadenopathy., and No inguinal lymphadenopathy.. Respiratory: No recent pulmonary infection, hemoptysis, chronic cough, or shortness of breath at rest Rheumatologic: Joint deformities: left knee pain Right Knee Exam Right knee exam is normal. Muscle Strength The patient has normal right knee strength. Tenderness The patient is experiencing no tenderness. Range of Motion Extension: normal Flexion: normal Tests Stefan: Anterior - negative Posterior - negative Drawer: Anterior - negative Posterior - negative Other Erythema: absent Sensation: normal Pulse: present Swelling: none Left Knee Exam Tenderness The patient is experiencing tenderness in the medial joint line and patella. Range of Motion Extension: abnormal Flexion: abnormal Tests Traci: Medial - positive Lateral - positive Stefan: Anterior - positive Posterior - negative Drawer: Anterior - positive Posterior - negative Other Erythema: absent Scars: present Sensation: normal Pulse: present Swelling: mild Comments: Neg homans bilaterally Right Hip Exam Range of Motion Abduction: abnormal Adduction: abnormal Extension: abnormal Flexion: abnormal External rotation: abnormal Internal rotation: abnormal Muscle Strength The patient has normal right hip strength. Other Erythema: absent Sensation: normal Pulse: present Comments: Neg homans bilaterally Left Hip Exam Range of Motion Abduction: abnormal Adduction: abnormal Extension: abnormal Flexion: abnormal External rotation: abnormal Internal rotation: abnormal Muscle Strength The patient has normal left hip strength. Other Erythema: absent Sensation: normal Pulse: present Comments: Neg straight leg raise b/l; tight hamstrings, dec IR bilateral hips Imaging: Last XR Hip/Pelvis - Impression Only XR HIP GENERAL 3V PELV/AP/LAT LEFT Exam End: 05/17/2023 12:17 PM (Final result) Impression: IMPRESSION: 1. Bilateral hip osteoarthrosis 2. Advanced left knee osteoarthrosis Bi Tester: VÍCTOR Transcribe Date/Time: May 17 2023 12:44P... Assessment and Plan: Impression: Encounter Diagnosis ICD-10-CM 1. Post-traumatic osteoarthritis of right knee M17.31 2. Strain of left hamstring muscle, initial encounter S76.312A XR HIP GENERAL 3V PELV/AP/LAT LEFT 3. Left leg pain M79.605 XR HIP GENERAL 3V PELV/AP/LAT LEFT 4. Chronic pain of left knee M25.562 SYNOVIAL FLUID, ROUTINE G89.29 CYTOLOGY NON-PSYCHOLOGY TECHNICIAN SYNOVIAL FLUID MANUAL DIFF SYNOVIAL FL,CRYSTAL ID/STAFF REV SF STAFF REVIEW (LAB ORDER) 5. Primary osteoarthritis of left hip M16.12 Plan: Today, in detail, through a thorough evaluation, we discussed possible etiologies of pain and our plans for further diagnostic and therapeutic interventions. We discussed strategies for decreasing pain and improving strength, stability and motion. Patient's questions were answered in detailed. Patient verbalizes understanding and agrees with the treatment plan as discussed. staff messaged alexia/lauralla/surace Brace today Hip xrays today- oa b/l hips; oa and h/o prev acl surgeries left knee med and pf severe Left knee asp/injexn today, discussed delays tka by 3 months, but partners most likely will not getpatient in prior to that regardless Discussed smoking cessation Discussed risks of h/o left leg rsd Discussed with patient possible options for treatment. Patient elected proceed with injection. Patient told not to submerge the injected area for 24 hours in a hot tub, or bath, injection may take 2 weeks for improvement to be noticed, follow-up in 2 -6 weeks if symptoms do not resolve. All questions answered patient agreement of plan. Apply ice Limit activities as discussed Rest Do not submerge limb in water for 24 hours Cont current meds Watch sugars/decrease carbs Call if warm/hot/red Discussed with patient that if the injection does not work after 2 to 4 weeks to come back for reevaluation. Discussed the next 3 days may feel worse before it feels better. Discussed if having continued pain to return. May get injection every 3 months Darleen Lopez D.O. M.P.H. documented in this encounterBethesda North Hospital02-28-2024 History of Present illness Narrative* Cindy Rivas Tech - 05/17/2023 10:30 AM EST Radiology Service Progress Note PATIENT NAME: Ruddy Ruvalcaba DATE OF SERVICE: May 17, 2023 TIME: 10:38 AM PATIENT IDENTITY VERIFICATION COMPLETED USING TWO (2) IDENTIFIERS: Name and Date of confirmedby patient verbally. FALL SCREENING: Has the patient had 2 falls in the last year or 1 fall with injury or currently using an Ambulatory Assistive Device (Walker, Cane, Wheelchair, Crutches, etc.)? No PATIENT GENDER DATA: Male PATIENT RELEVANT IMPLANT DATA REVIEWED: Not Applicable PATIENT PRESENTS WITH AN IMPLANTABLE OR ATTACHED TIRE DUSTER: No RADIOLOGY DEPARTMENT: General X-ray: Exam(s) Completed: Lower Extremity X- Ray(s): Knee, AP / Lat / Tunne / Merchant Left and Wt. Bearing PERIPHERAL IV DATA: Not applicable SIGNED BY: Olga Lidia Jones May 17, 2023 10:38 AM * Bryant Clements Tech - 05/17/2023 10:30 AM EST Radiology Service Progress Note PATIENT NAME: Ruddy Ruvalcaba DATE OF SERVICE: May 17, 2023 TIME: 12:17 PM PATIENT IDENTITY VERIFICATION COMPLETED USING TWO (2) IDENTIFIERS: Name and Date of confirmedby patient verbally. FALL SCREENING: Has the patient had 2 falls in the last year or 1 fall with injury or currently using an Ambulatory Assistive Device (Walker, Cane, Wheelchair, Crutches, etc.)? No PATIENT GENDER DATA: Male PATIENT RELEVANT IMPLANT DATA REVIEWED: Not Applicable PATIENT PRESENTS WITH AN IMPLANTABLE OR ATTACHED TIRE DUSTER: No RADIOLOGY DEPARTMENT: General X-ray: Exam(s) Completed: Pelvis X-Ray: Pelvis with Hip Left and Wt. Bearing PERIPHERAL IV DATA: Not applicable SIGNED BY: Olga Lidia Sabillon May 17, 2023 12:17 PM documented in this encounterBethesda North Hospital02-28-2024 NoteHNO ID: [id number] Author: CINDY RIVAS Tech Service: Radiology Author Type: Photoengraving Proofer Type: Progress Notes Filed: 05/17/2023 10:38 Note Text: Radiology Service Progress Note PATIENT NAME: Ruddy Ruvalcaba DATE OF SERVICE: May 17, 2023 TIME: 10:38 AM PATIENT IDENTITY VERIFICATION COMPLETED USING TWO (2) IDENTIFIERS: Name and Date of confirmed by patient verbally. FALL SCREENING: Has the patient had 2 falls in the last year or 1 fall with injury or currently using an Ambulatory Assistive Device (Walker, Cane, Wheelchair, Crutches, etc.)? No PATIENT GENDER DATA: Male PATIENT RELEVANT IMPLANT DATA REVIEWED: Not Applicable PATIENT PRESENTS WITH AN IMPLANTABLE OR ATTACHED TIRE DUSTER: No RADIOLOGY DEPARTMENT: General X-ray: Exam(s) Completed: Lower Extremity X-Ray(s): Knee, AP / Lat / Tunne / Merchant Left and Wt. Bearing PERIPHERAL IV DATA: Not applicable SIGNED BY: Olga Lidia Jones May 17, 2023 10:38 [facility] [id number] NoteHNO ID: [id number] Author: BRYANT CLEMENTS Tech Service: ? Author Type: Photoengraving Proofer Type: Progress Notes Filed: 05/17/2023 12:18 Note Text: Radiology Service Progress Note PATIENT NAME: Ruddy Ruvalcaba DATE OF SERVICE: May 17, 2023 TIME: 12:17 PM PATIENT IDENTITY VERIFICATION COMPLETED USING TWO (2) IDENTIFIERS: Name and Date of confirmed by patient verbally. FALL SCREENING: Has the patient had 2 falls in the last year or 1 fall with injury or currently using an Ambulatory Assistive Device (Walker, Cane, Wheelchair, Crutches, etc.)? No PATIENT GENDER DATA: Male PATIENT RELEVANT IMPLANT DATA REVIEWED: Not Applicable PATIENT PRESENTS WITH AN IMPLANTABLE OR ATTACHED TIRE DUSTER: No RADIOLOGY DEPARTMENT: General X-ray: Exam(s) Completed: Pelvis X-Ray: Pelvis with Hip Left and Wt. Bearing PERIPHERAL IV DATA: Not applicable SIGNED BY: Olga Lidia Sabillon May 17, 2023 12:17 PMSelect [facility], [id number] Miscellaneous Notes* Telephone Encounter - Luiz Polanco MA - 05/08/2023 8:42 AM EST Patient requesting refills: Last office visit 04/20/2023. Last refill 01/26/2023 nov none Requested Prescriptions Pending Prescriptions Disp Refills HYDROcodone-acetaminophen (NORCO) 5-325 mg per tablet 21 tablet 0 Sig: Take 1 tablet by mouth every 8 hours as needed for pain for up to 7 days. Please review and advise. Luiz Polanco MA documented in this encounterBethesda North Hospital02-09-2024 Miscellaneous Notes* Telephone Encounter - Jossy Natarajan APRN.CNP - 04/28/2023 11:15 AM EST PDMP website checked and validated. All prescriptions have been APPROPRIATELY filled. No suspiciousactivity was identified. 04/28/2023 by Jossy Natarajan APRN.CNP * Telephone Encounter - Esme Faria MA - 04/27/2023 1:25 PM EST Pharmacy requesting refills as follows: Last Office Visit 04/20/23. Last Refill 04/20/23. Requested Prescriptions Pending Prescriptions Disp Refills HYDROcodone-acetaminophen (NORCO) 5-325 mg per tablet 21 tablet 0 Sig: Take 1 tablet by mouth every 8 hours as needed for pain for up to 7 days. Please review and advise. Esme Faria MA documented in this encounterBethesda North Hospital02-01-2024 Instructions* Patient Instructions* Jossy Natarajan APRN.CNP - 04/20/2023 3:[address] Triny Lopez Orthopaedic Surgery [facility] ([facility]) [address] [place] [address] Appointment:[phone] [facility] [place] Medical Office Building [address] [place] [address] Appointment:[phone] Desk:[phone] documented in this encounterBethesda North Hospital02-01-2024 History of Present illness Narrative* Jossy Natarajan APRN.CNP - 04/20/2023 3:27 PM EST Images from the original [place] [address] Visit Date: 04/20/2023 Patient Name: Ruddy Ruvalcaba Date of : 1970 Chief Complaint: ER Follow Up Ruddy Ruvalcaba is a 52 year old male here today for a follow up to a recent emergency room (ER) visit. Emergency Room Location: [facility] Date of Emergency Room Visit: 04/10/23 Reason for Emergency Room Visit: Pulled left hamstring HPI: Patient presented to the ED on 04/10/23 after he was lifting a couch at home by himself and felt a pop in his left hamstring. XRs were obtained because he was having left knee pain. Reports his leg and knee swelled up and has slowly been going down. There was no bruising. He has been using his ice machine and using Tylenol and Ibuprofen without relief. He was given a short course of pain medication from the ER with one refill from this office. He will rates his pain a 8-9/10 and worse with weightbearing. He is using at least 1 crutch when walking. Of note, he is no longer having headaches and his blood pressure has been more controlled. He recently saw Dr. Munguia who ordered a Lexiscan nuclear stress test but he hasn't completed this yet. Dr. Mortensen with nephrology also recently ordered labs for him to complete. He also never saw pain management because his headaches and pain improved. Vitals BP 162/100 Pulse 85 Temp 98 Resp 18 Ht 5' 10" (1.78m) Wt 263 lb (119.3kg) SpO2 96% BMI 37.74 kg/(m^2). PAST MEDICAL HISTORY Diagnosis Date Bilateral renal [...] date: 10/20/1988 Smokeless tobacco: Never Tobacco comments: 0.5 ppd since 2011 Vaping Use Vaping Use: Never used Substance Use Topics Alcohol use: Not Currently Drug use: Not Currently Types: Marijuana Current Meds labetalol (TRANDATE) 200 mg tablet^Take 1.5 tablets by mouth three times a day.^Disp: 270 tablet^Rfl: 1 chlorthalidone (HYGROTON) 50 mg tablet^Take 1 tablet by mouth once daily.^Disp: 90 tablet^Rfl: 1 erythromycin (ROMYCIN) 5 mg/gram (0.5 %) ophthalmic ointment^1 application daily at bedtime.^Disp: ^Rfl: hydrALAZINE (APRESOLINE) 50 mg tablet^Take 2 tablets by mouth three times a day.^Disp: 270 tablet^Rfl: 0 lisinopril (ZESTRIL) 40 mg tablet^Take 1 tablet by mouth twice daily.^Disp: 180 tablet^Rfl: 1 finasteride (PROSCAR) 5 mg tablet^Take 1 tablet by mouth once daily.^Disp: 90 tablet^Rfl: 1 amLODIPine (NORVASC) 10 mg tablet^Take 1 tablet by mouth once daily.^Disp: 30 tablet^Rfl: 2 HYDROcodone-acetaminophen (NORCO) 5-325 mg per tablet^Take 1 tablet by mouth every 8 hours as needed for pain for up to 7 days.^Disp: 21 tablet^Rfl: 0 I have confirmed and edited as necessary the chief complaint, medications, past medical, family andsocial histories obtained by others. Review of Systems Constitutional: Negative. Respiratory: Negative. Cardiovascular: Negative. Gastrointestinal: Negative. Musculoskeletal: Positive for arthralgias and myalgias. Skin: Negative. Neurological: Negative for weakness and numbness. Physical Exam Vitals and nursing note reviewed. Constitutional: Appearance: Normal appearance. HENT: Mouth/Throat: Mouth: Mucous membranes are moist. Eyes: Pupils: Pupils are equal, round, and reactive to light. Cardiovascular: Rate and Rhythm: Normal rate and regular rhythm. Heart sounds: Normal heart sounds. Pulmonary: Breath sounds: Normal breath sounds. Musculoskeletal: Cervical back: Neck supple. Left upper leg: Tenderness present. No edema, deformity or bony tenderness. Left knee: Swelling present. No effusion, erythema or ecchymosis. Normal range of motion. Tenderness present over the medial joint line and lateral joint line. Legs: Skin: General: Skin is warm and dry. Neurological: Mental Status: He is alert and oriented to person, place, and time. Comments: Antalgic gait, using crutches Psychiatric: Mood and Affect: Mood normal. Behavior: Behavior normal. Cognition and Memory: Cognition normal. Data Reviewed: Outside chart from [facility] reviewed. ASSESSMENT/PLAN: 1. Left leg pain - ICD9: 729.5, ICD10: M79.605 (primary diagnosis) - CONSULT TO ORTHOPAEDIC SURGERY - CONSULT TO PHYSICAL THERAPY 2. Strain of left hamstring muscle, initial encounter - ICD9: 843.8, ICD10: S76.312A - Will give one last course of pain medication. I advised him this is the last refill. - CONSULT TO ORTHOPAEDIC SURGERY - CONSULT TO PHYSICAL THERAPY - HYDROCODONE 5 MG-ACETAMINOPHEN 325 MG TABLET 3. Left hamstring injury, initial encounter - ICD9: 959.6, ICD10: S76.302A - CONSULT TO PHYSICAL THERAPY 4. Acute pain of left knee - ICD9: 719.46, ICD10: M25.562 - CONSULT TO PHYSICAL THERAPY PDMP website checked and validated. All prescriptions have been APPROPRIATELY filled. No suspiciousactivity was identified. 04/20/2023 by Jossy Natarajan APRN.CERAMIC COATER MACHINE Return if symptoms worsen or fail to improve, for PT [place] number please. I have reviewed the patient's (ER) course including diagnostic testing performed during this ER visit, their discharge medications, and my assessment and plan with the patient. Discussed the above with the patient using shared decision making. The patient is in agreement with the diagnostic and treatment plans. Medications Discontinued During This Encounter Medication Reason HYDROcodone-acetaminophen (NORCO) 5-325 mg per tablet Jossy Natarajan APRN.CNP April 20, 2023 3:27 PM documented in this encounterBethesda North Hospital12-21-2023 Miscellaneous Notes* Telephone Encounter - DawsonRoxanne rinaldi - 03/09/2023 9:37 AM EST No Show Documentation Ruddy Ruvalcaba no showed for an appointment on 03/09/2023 with Micaela Flowers APRN.CNP at 9am. He was scheduled [...] Yes Is this the Third or Fourth "No Show"? Milly Osman March 09, 2023 9:37 AM documented in this encounterBethesda North Hospital11-17-2023 Instructions* Patient Instructions* Moisés Munguia MD - 02/03/2023 11:41 AM EST High Blood Pressure: Care Instructions Overview It's normal for blood pressure to go up and down throughout the day. But if it stays up, you have high blood pressure. Another name for high blood pressure is hypertension. Despite what a lot of people think, high blood pressure usually doesn't cause headaches or make youfeel dizzy or lightheaded. It usually has no [...] a good idea to know your test resultsand keep a list of the medicines you [...] a good choice. Bit by bit, increase theamount you walk every day. Try for at [...] or blood vessel problem. Your blood pressure maybe over 180/120. For example, call 911 if: [...] in your face, arm, or leg, especially ononly one side of your body. ? Sudden [...] Where can you learn more? Go to https://www.[employer].net/patientEd. Enter X567 in the search box to learn more about "High Blood Pressure: Care Instructions." Current as of: October 08, 2017 Content Version: 12.20051744-8837 [employer]. Care instructions adapted under license by your healthcare professional. If you have questions about a medical condition or this instruction, always ask your healthcare professional. [employer] disclaims any warranty or liability for your use of this information. documented in this encounterBethesda North Hospital11-17-2023 History of Present illness Narrative* Moisés Munguia MD - 02/03/2023 11:06 AM EST PRIMARY CARE PHYSICIAN: Jossy Natarajan [address] [place] [address] REFERRING PHYSICIAN: SELF CHIEF COMPLAINT: Patient presents [...] He was admitted to the ICU at [facility] [place], and was on an iv antihypertensive regime. His echocardiogram during that hospital stay revealed a normal LVEF of 65%, stage 1 diastolic dysfunction, normal right ventricular size, systolic function. No significant valvular abnormalities were noted, and his ascending aorta was borderline dilated measuring 3.9 cmHis renal artery Dopplers in12/10 indicated no evidence of hemodynamically significant renal artery stenosis ( 0-59% stenosis bilaterally). He was ordered a sleep apnea study, but apparently, his insurance denied the same Clinically, he denies chest pain, but does admit to exertional dyspnea. He denies palpitations, butdoes admit to some intermittent lightheadedness. He denies [...] renal calculi x 2 HERNIA REPAIR W/MESH 1999' PAST SURGICAL HISTORY OF nose-reconstruction PAST SURGICAL [...] EXAMINATION: BP 202/122 Pulse 80 Ht 5' 10" (1.78m) Wt 263 lb 3.2 oz (119.4kg) [...] obesity. I do not think he has secondaryhypertension, but I will order a workup for [...] be contributing to his elevated blood pressures. Moisés Munguia MD The above note was partially created using a dictation recognition software. A reasonable attempt has been made to correct any errors. documented in this encounterBethesda North Hospital11-17-2023 Nurse Note* Kayla Gutierrez MA - 02/03/2023 10:42 AM EST Patient denies cardiac complaints or symptoms. documented in this encounterBethesda North Hospital11-09-2023 Miscellaneous Notes* Telephone Encounter - Esme Faria MA - 01/26/2023 11:50 AM EST Patient is informed Esme Faria MA * Telephone Encounter - Carlene Hussein MA - 01/26/2023 9:58 AM EST patient electronically requesting refills as follows: Last seen 01/20/23 . Last refill 01/20/23 . Requested Prescriptions Pending Prescriptions Disp Refills HYDROcodone-acetaminophen (NORCO) 5-325 mg per tablet 21 tablet 0 Sig: Take 1 tablet by mouth every 8 hours as needed for pain for up to 7 days. Please review and advise. Carlene Hussein MA documented in this encounterBethesda North Hospital11-03-2023 History of Present illness Narrative* Jossy Natarajan, BRYANNA.CERAMIC COATER MACHINE - 01/20/2023 4:15 PM EDT Images from the original note were not [...] have a lumbar XR that showed degenerative chadwick nges. He has an appointment with cardiology in [...] history is provided by the patient. No biomass plant manager was used. PAST MEDICAL HISTORY Diagnosis Date [...] injection (DEFINITY) INTRAVENOUS DIRECTED PRN Jossy Natarajan, SUPERSONIC ENGINEER.CERAMIC COATER MACHINE sodium chloride 0.9 % (flush) 10 mL [...] for arthralgias, gait problem, neck pain and neckstiffness. Skin: Negative. Neurological: Positive for dizziness, light-headedness and headaches. Negative for seizures, syncope and numbness. Hematological: Negative. Psychiatric/Behavioral: Positive for sleep disturbance. The patient is nervous/anxious. BP 188/100 Pulse 81 Temp 98.3 Resp 18 Ht 5' 10" (1.78m) Wt 261 lb (118.4kg) SpO2 98% BMI 37.45 kg/(m^2). 01/20/23 1555 01/20/23 1644 BP: 188/100 168/108 Pulse: 81 Resp: 18 Temp: 36.8 C (98.3 F) SpO2: 98% Weight: 118.4 kg (261 lb) Height: 177.8 cm (5' 10") Physical Exam Vitals and nursing note reviewed. [...] Monocytes % 12/12/2022 9.7 % Final Abs [place] 12/12/2022 1.00 (H) <0.87 k/uL Final Eosinophils [...] 89 74 - 99 mg/dL Final The [place] Diabetes Association (ADA) provides guidance for cutoff values for fasting glucose andrandom glucose. The ADA defines fasting as no [...] Standards of Medical Care in Diabetes 2016, [place] Diabetes Association. Diabetes Care. 2016.39(Suppl 1). BUN [...] creatinine assay has traceable calibration to isotope dilution- mass spectrometry. Refer to KDIGO guidelines for clinical interpretation. In patients with unstable renal function, e.g. those with acute kidney injury, the eGFRmay not accurately reflect actual GFR. Uric Acid 12/12/2022 6.3 4.0 - 8.1 mg/dL Final Color 12/13/2022 Light Yellow Yellow Final Clarity 12/13/2022 Clear Clear Final Glucose, Urine 12/13/2022 Negative Trace, Negative Final Bilirubin, Urine 12/13/2022 Negative Negative Final Ketones, Urine 12/13/2022 Negative Trace, Negative Final Specific Mather, Ur 12/13/2022 1.032 (H) 1.005 - 1.030 [...] HTN. This has been recommended by his bonderite operator as well as the consulting battery tester and repairer while his was admitted for his HTN in August. - POLYSOMNOGRAM (PSG) 3. Intractable headache, unspecified chronicity pattern, unspecified headache type - ICD9: 784.0, ICD10: R51.9 - Explained to the patient that this will be the last refill of the pain medication. His headaches are most likely stemming from his uncontrolled hypertension but if they continue despite BP control,recommend CT brain. - HYDROCODONE 5 MG-ACETAMINOPHEN 325 [...] All prescriptions have been APPROPRIATELY filled. No suspiciousactivity was identified. 01/20/2023 by Jossy Natarajan APRN.CNP Some elements of [...] patient. Jossy Natarajan APRN.CNP documented in this encounterBethesda North Hospital10-19-2023 Miscellaneous Notes* Telephone Encounter - Cindy Christianson - 01/05/2023 2:42 PM EDT LVM for patient to schedule New patient appt for Thoracic and Lumbar DDD, chronic left flank pain. Ref'd by Jossy Natarajan. Cindy Christianson documented in this encounterBethesda North Hospital10-12-2023 History of Present illness Narrative* Jossy Natarajan APRN.CNP - 12/29/2022 4:31 PM EDT Images from the original note were not included. CHIEF COMPLAINT: Ruddy Ruvalcaba is a 52 year old male who presents for an ER follow up for uncontrolled HTN. I reviewed past medical, surgical, social, and family histories today and updated chart. Allergies, chronic medications, and supplements were also reviewed. Ointment- Erythromycin Warm compresses Copied from [facility] ER visit: However, patient was found to have severe hypertension with reported 10 out of 10 headache. Initialblood pressure noted to be 241/109. Patient reported a history of progressive hypertension that hadworsened over the last few months. Had headaches that correlated with hypertension, and he noted this headache seemed similar to previous. Noted that his headaches improved with opiates. Was given doses of IV labetalol 10 mg and IV hydralazine 10 mg, as well as dosesof IV morphine 4 mg, IV Dilaudid1 mg and IV Zofran 4 mg. Unfortunately patientdid not have much improvement of blood pressure or headache with these medications. Slit-lamp exam: I placed tetracaine and fluorescein, there is no dye uptake, anterior chambers are deep and quiet. Patient's vision is normal when I lift his eyelid, this makes me think that he had alittle bit of blurred vision but only because [...] injection (DEFINITY) INTRAVENOUS DIRECTED PRN Jossy Natarajan, SUPERSONIC ENGINEER.AINSLEY sodium chloride 0.9 % (flush) 10 mL (BD POSIFLUSH) 10 mL INTRAVENOUS DIRECTED PRN Jossy Natarajan, SUPERSONIC ENGINEER.CERAMIC COATER MACHINE Review of Systems Constitutional: Negative for appetite [...] 172/98 Pulse 81 Temp 98 Ht 5' 10" (1.78m) Wt 258 lb (117.0kg) SpO2 95% [...] Monocytes % 12/12/2022 9.7 % Final Abs Huntington 12/12/2022 1.00 (H) <0.87 k/uL Final Eosinophils [...] 89 74 - 99 mg/dL Final The [place] Diabetes Association (ADA) provides guidance for cutoff values for fasting glucose andrandom glucose. The ADA defines fasting as no [...] Standards of Medical Care in Diabetes 2016, [place] Diabetes Association. Diabetes Care. 2016.39(Suppl 1). BUN [...] creatinine assay has traceable calibration to isotope dilution- mass spectrometry. Refer to KDIGO guidelines for clinical interpretation. In patients with unstable renal function, e.g. those with acute kidney injury, the eGFRmay not accurately reflect actual GFR. Uric Acid 12/12/2022 6.3 4.0 - 8.1 mg/dL Final Color 12/13/2022 Light Yellow Yellow Final Clarity 12/13/2022 Clear Clear Final Glucose, Urine 12/13/2022 Negative Trace, Negative Final Bilirubin, Urine 12/13/2022 Negative Negative Final Ketones, Urine 12/13/2022 Negative Trace, Negative Final Specific Mather, Ur 12/13/2022 1.032 (H) 1.005 - 1.030 [...] renal calculi but a stable cyst. There wasa small right renal calculi. He has seen [...] All prescriptions have been APPROPRIATELY filled. No suspiciousactivity was identified. 12/29/2022 by Jossy Natarajan APRN.CNP [...] patient. Jossy Natarajan APRN.CNP documented in this encounterBethesda North Hospital10-12-2023 Instructions* Patient Instructions* Jossy Natarajan APRN.CNP - 12/29/2022 4:[address] [facility] [address] [address] Appointment:[phone] Pain Management [facility]) [address] [place] [address] Appointment:[phone] documented in this encounterBethesda North Hospital10-10-2023 History of Present illness Narrative* Luiz Polanco MA - 12/27/2022 1:29 PM EDT ED Follow Up: Patient discharged from [facility] ED on 12/24/2022. 1. How are you [...] you able to contact the office or canned food reconditioning inspector provider prior to your ED visit? Not applicable 5. Is there anything else I can do for you today? No Patient has ed follow up on with BQ documented in this encounterBethesda North Hospital10-09-2023 History of Present illness Narrative* Fabiola Marino RT(R) - 12/26/2022 8:40 AM EDT Radiology Service Progress Note PATIENT NAME: Ruddy Ruvalcaba DATE OF SERVICE: December 26, 2022 TIME: 11:03 AM PATIENT IDENTITY VERIFICATION COMPLETED USING TWO (2) IDENTIFIERS: Name and Date of confirmedby patient verbally. FALL SCREENING: Has the patient [...] RT Elliott(R) December 26, 2022 11:03 AM documented in this encounterBethesda North Hospital10-09-2023 History of Present illness Narrative* Cindy Ordaz RDMS - 12/26/2022 7:45 AM EDT Radiology Service Progress Note PATIENT NAME: Ruddy Ruvalcaba DATE OF SERVICE: December 26, 2022 TIME: 10:25 AM PATIENT IDENTITY VERIFICATION COMPLETED USING TWO (2) IDENTIFIERS: Name and Date of confirmedby patient verbally. FALL SCREENING: Has the patient [...] 26, 2022 10:25 AM documented in this encounterBethesda North Hospital10-07-2023 History of Present illness Narrative* Andreina Stroud APRN.CNP - 12/24/2022 2:46 PM EDT She came in with complaints of 2 days worth of eyeball pain. Says it feels like something sharp andstabbing it. Patient says he is tried eyedrops [...] prefer to take himself. documented in this encounterBethesda North Hospital10-02-2023 Miscellaneous Notes* Telephone Encounter - Gabriella Johnson RT(R) - 12/19/2022 3:57 PM EDT Jorge, The attached patient has a stimulator that is not approved for an MRI of the kidney/adrenal that has been ordered per FDA and research instructor guidelines. They have a [employer] Stimulator that has not been functioning since 2005. The patient is unable to turn on the remote needed to place the device properly in "MRI mode" prior to the MRI scan. If this exam is still needed, then a Risk Benefit discussion will need to take place between the ordering physician and the staff body radiologist who can be reached at [phone]. After that discussion is completed and the MRI is determined as necessary, this will need to be documented in Epic. Any questions, the MRI Safety Team can be reached at [phone]. Thank you, Gabriella Johnson RT(R)(MR) MRI Safety Team [phone] Patient has a stimulator which is not [...] negative for adrenal mass. documented in this encounterBethesda North Hospital09-27-2023 Miscellaneous Notes* Telephone Encounter - Radha Rodríguez - 12/14/2022 3:09 PM EDT Denial Type: Payer Clinical Guidelines Not Met Denial Rationale: Your doctor is planning sleep testing for you at a health care facility. Based oninformation provided, you have not had significant problems with your sleep that met criteria to beperformed in an outpatient hospital. For that reason, this request is not recommended for approval at this time. Insurance company requesting a Peer to Peer. Please call [phone] Denial forwarded to providers e-mail. documented in this encounterBethesda North Hospital09-25-2023 Miscellaneous Notes* Telephone Encounter - Esme Faria MA - 12/12/2022 7:54 AM EDT Patient comment: Hansa and I talked we want this to be my last script of pain medication i have decided to use this script to ween myself off of them. Just like when you and I talked when i was therelast the longer im on them the longer it will take to get off them ryley had a decent week with my bpit averaged 165/85 and my pain has been a little better so her and I talked that now is the time to ween myself off of the pain meds. I see Dr Mortensen this week and you so im thinking he is going to have a game plan. documented in this encounterBethesda North Hospital09-19-2023 Miscellaneous Notes* Telephone Encounter - Jossy Natarajan APRN.CNP - 12/06/2022 12:37 PM EDT Refill sent in. PDMP website checked and validated. All prescriptions have been APPROPRIATELY filled. No suspiciousactivity was identified. 12/06/2022 by Jossy Natarajan APRN.CNP * Telephone Encounter - Esme Faria MA - 12/05/2022 9:32 AM EDT Patient is requesting a refill Esme Faria MA documented in this encounterBethesda North Hospital09-15-2023 Miscellaneous Notes* Telephone Encounter - Luiz Polanco MA - 12/02/2022 10:23 AM EDT Pharmacy requesting refills: Last office visit 11/29/22. Last refill 08/19/22. Requested Prescriptions Pending Prescriptions Disp Refills lisinopril (ZESTRIL) 40 mg tablet 30 tablet 2 Sig: Take 1 tablet by mouth once daily. Please review and advise. Luiz Polanco MA documented in this encounterBethesda North Hospital09-12-2023 History of Present illness Narrative* Jossy Natarajan, BRYANNA.CERAMIC COATER MACHINE - 11/29/2022 1:15 PM EDT Images from the original note were not [...] take the pain medication his BP goes upto 200's/90-100's. He is waiting to see if they can figure out what is going on with his kidney andcan go from there. He also woke up with some right lower back pain yesterday but it improved once he got up and moved around. He thinks he may have slept on it wrong. Had a right sided headache this morning TOTH comes and goes Usually "all over" Right eyelid swollen this morning No pain No vision changes The history is provided by the patient. No biomass plant manager was used. PAST MEDICAL HISTORY Diagnosis Date [...] injection (DEFINITY) INTRAVENOUS DIRECTED PRN Jossy Natarajan APRN.CERAMIC COATER MACHINE sodium chloride 0.9 % (flush) 10 mL (BD POSIFLUSH) 10 mL INTRAVENOUS DIRECTED PRN Jossy Natarajan APRN.CERAMIC COATER MACHINE Review of Systems Constitutional: Negative for appetite [...] 89 Temp 98.6 Resp 18 Ht 5' 10" (1.78m) Wt 250 lb (113.4kg) SpO2 97% [...] All prescriptions have been APPROPRIATELY filled. No suspiciousactivity was identified. 11/29/2022 by Jossy Natarajan APRN.CERAMIC COATER MACHINE Some elements of above documentation were copied [...] patient. Jossy Natarajan APRN.CNP documented in this encounterBethesda North Hospital08-31-2023 Miscellaneous Notes* Telephone Encounter - Jossy Natarajan APRN.CNP - 11/17/2022 5:55 PM EDT I spoke with the patient's around 4 pm and informed her that I cannot direct admit and do not have privileges at [facility]. We will discuss his BP and symptoms at his appointment today. He recently had an appointment with nephrology who order further lab work and a renal vascular US but it isn't scheduled until 12/08/22. * Telephone Encounter - Carlene Hussein MA - 11/17/2022 3:04 PM EDT Patient's left message stating she is extremely concerned about patient. States his BP at 2:48was 221/108 and patient is having a severe headache. Hansa would like Jossy to call her back to discuss because she is not able to come to the appointment today because she is at work but she is very concerned and would like patient to be admitted to figure out what is going on with his kidneys because he has done the ultrasounds and blood work. Carlene Hussein MA documented in this encounterBethesda North Hospital08-31-2023 History of Present illness Narrative* Jossy Natarajan APRN.CNP - 11/17/2022 4:46 PM EDT Images from the original note were not included. CHIEF COMPLAINT: Ruddy Ruvalcaba is a 52 year old male who presents for 10 day f/u for uncontrolled hypertension. Ireviewed past medical, surgical, social, and family histories [...] history is provided by the patient. No biomass plant manager was used. PAST MEDICAL HISTORY Diagnosis Date [...] injection (DEFINITY) INTRAVENOUS DIRECTED PRN Jossy Natarajan, SUPERSONIC ENGINEER.AINSLEY sodium chloride 0.9 % (flush) 10 mL (BD POSIFLUSH) 10 mL INTRAVENOUS DIRECTED PRN Jossy Natarajan, SUPERSONIC ENGINEER.CERAMIC COATER MACHINE Review of Systems Constitutional: Negative for appetite [...] 86 Temp 98 Resp 20 Ht 5' 10" (1.78m) Wt 253 lb (114.8kg) SpO2 98% [...] 3-4 minutes. New medication(s) prescribed today: Yes: Brianna. Discussed new medication dosage, usage, goals of therapy, and side effects. Patient has been apprised of any potential drug interactions to be aware of. Patient expresses understanding. PDMP website checked and validated. All prescriptions have been APPROPRIATELY filled. No suspiciousactivity was identified.11/17/2022 by Jossy Natarajan APRN.CERAMIC COATER MACHINE Some elements of above documentation were copied [...] patient. Jossy Natarajan APRN.AINSLEY documented in this encounterBethesda North Hospital08-29-2023 Miscellaneous Notes* Telephone Encounter - Damien Borges LPN - 11/15/2022 8:57 AM EDT Patient called- informed. Verbalizes understanding. Damien Borges LPN * Telephone Encounter - Damien Borges LPN - 11/15/2022 8:48 AM EDT Called patient. No answer- left message to call clinic for results/orders. Damien Borges LPN * Telephone Encounter - Ascencion Villalba PA-C - 11/14/2022 8:01 PM EDT Please let patient know his repeat Renal [...] would like to discuss this further. We have[facility] or [facility] who deal [...] SENIA Velazco, BEAU DAN documented in this encounterBethesda North Hospital08-25-2023 History of Present illness Narrative* Lili Lopez RDMS - 11/11/2022 7:30 AM EDT Radiology Service Progress Note PATIENT NAME: Ruddy Ruvalcaba DATE OF SERVICE: November 11, 2022 TIME: 11:30 AM PATIENT IDENTITY VERIFICATION COMPLETED USING TWO (2) IDENTIFIERS: Name and Date of confirmedby patient verbally. FALL SCREENING: Has the patient [...] 11, 2022 11:30 AM documented in this encounterBethesda North Hospital08-24-2023 History of Present illness Narrative* Kt Mortensen MD - 11/10/2022 12:41 PM EDT TELE HEALTH VISIT This Tele health visit is a virtual encounter. It required patient-provider interaction for the medical decision making as documented below. Chief complaint : Subjective : Ruddy Ruvalcaba is a 52 year old male seen for CKD follow up. SUBJECTIVE: Ruddy Ruvalcaba is a 52 year old White male with past medical history significant for : HTN, heavysmoker, spinal cord stimulator 2016 and kidney stones who has been having ongoing problems with uncontrolled hypertension and HAs over the past several weeks. He presented to the [place] ED with a severe TOTH and hypertension. [...] 1 diastolic dysfunction mild LVH. His blood pressurewas more than 200 emergency room recent clonidine hydralazine labetalol was admitted to ICU for hypertensive urgency. Initial blood pressure was 200 230 symptomatic headache received clonidine 0.1 mg, hydralazine 20 mg x 2 and labetalol 10 mg x 3. Received 1 L of IV fluid total 10 mg of IV mg for Reglan 15 mg of Toradol. [...] Serious Comorbidity and Body Mass Index (Bmi) of35.0 to 35.9 in Adult (Hcc) Post-Traumatic Osteoarthritis [...] or hemoptysis. CARDIOLOGY: Denies chest pain, palpitations, MONROY, orthopnea or PND. GI: No anorexia, nausea, [...] urgency/accelerated hypertension-most likely primary hypertension although rule outsecondary hypertension 2. Obesity 3. Headache 4. Rule [...] 1 month (on 12/11/2022). documented in this encounterBethesda North Hospital08-18-2023 History of Present illness Narrative* Ascencion Villalba PA-C - 11/04/2022 5:24 PM EDT Images from the original note were not included. [facility] NEW CONSULT PATIENT CLINIC NOTE SERVICE DATE: 11/04/2022 SERVICE TIME: 5:24 PM NAME: Ruddy Ruvalcaba Consultation requested by Jossy Natarajan APRN.CNP for an opinion regarding Flank Pain and Bilateral Non-Obstructing Stones My final recommendations communicated back to the requesting physician by way of our shared Medicalrecord. CHIEF COMPLAINT: Flank Pain and Bilateral Non-Obstructing [...] LUTS: None LABS: No results found for: "TESTOST" No results found for: "TESTFREE" No results found for: "PSA" Hematocrit (%) Date Value 09/01/2022 42.0 08/31/2022 42.2 11/15/2021 42.6 No results found for: "PSA" Creatinine Date Value Ref Range Status 09/01/2022 [...] resp. rate 18, height 177.8 cm (5' 10"), weight 116.7 kg (257 lb 3.2 oz), [...] images > Review of CT scan from [facility] - Shows Bilateral NON\\-OBSTRUCTING STONES- no sizes given > Recommend continued [...] medically appropriate examination, counseling and educating the pat ient/family/caregiver, ordering medications, tests, or procedures, and care coordination. SENIA Ribeiro MT, PA-C * Damien Borges LPN - 11/04/2022 3:59 PM EDT Verified name and date of . CC [...] tolerated the procedure well. Plan: Appointment with [facility]. documented in this encounterBethesda North Hospital08-18-2023 Instructions* Patient Instructions* Ascencion Villalba PA-C - 11/04/2022 4:40 PM EDT Patient needs Renal US for possible change in kidney stone location If possible schedule TATIANA, please look at other locations for the soonest possible He is seeing PCP Monday at [place] documented in this encounterBethesda North Hospital08-14-2023 Miscellaneous Notes* Telephone Encounter - Carlene Hussein MA - 10/31/2022 7:51 AM EDT patient electronically requesting refills as follows: Last seen 10/24/22 . Last refill 10/24/22 . Requested Prescriptions Pending Prescriptions Disp Refills HYDROcodone-acetaminophen (NORCO) 5-325 mg per tablet 28 tablet 0 Sig: Take 1 tablet by mouth every 4 hours as needed for pain for up to 7 days. Please review and advise. Carlene Hussein MA documented in this encounterBethesda North Hospital08-07-2023 Instructions* Patient Instructions* Jossy Natarajan APRN.CNP - 10/24/2022 1:57 PM EDT Follow up with Kt Mortensen MD (Nephrology) Address: [address] [address], [place] [id number] Hours: Open ? Closes 4?PM Reason for Consultation: bilateral renal stones [facility] ([facility]) [address] [place] [address] Appointment:[phone] documented in this encounterBethesda North Hospital08-07-2023 History of Present illness Narrative* Jossy Natarajan APRN.CNP - 10/24/2022 1:40 PM EDT CHIEF COMPLAINT: Ruddy Ruvalcaba is a 52 year old male who presents for ER follow up. I reviewed past medical, surgical, social, and family histories today and updated chart. Allergies, chronic medications, and supplements were also reviewed. PMH of uncontrolled HTN, total TKR, kidney stones. He was seen at [facility] on 10/22/22 for left flank pain [...] last day because he was told he "only had 1 more test to do". There is no discharge summary to review but there are inpatient notes including from cardiology and nephrology. Upon independent review, nephrology wanted to change some of his medications but it was never ordered or changed prior to him leaving. The Lisinopril wasto be changed to Ramipril, HCTZ stopped and changed to Chlorthalidone, continue Metoprolol BID and Norvasc daily. He states he did not know anything about these changes. He was started on Hydralazinein the middle of September after discharge when he had called in and his BP was still uncontrolled and having headaches. He hasn't made an appointment with cardiology yet and didn't know he was to follow up with nephrology at discharge. The history is provided by the patient. No biomass plant manager was used. PAST MEDICAL HISTORY Diagnosis Date [...] injection (DEFINITY) INTRAVENOUS DIRECTED PRN Jossy Natarajan, SUPERSONIC ENGINEER.CERAMIC COATER MACHINE sodium chloride 0.9 % (flush) 10 mL (BD POSIFLUSH) 10 mL INTRAVENOUS DIRECTED PRN Jossy Natarajan, SUPERSONIC ENGINEER.CERAMIC COATER MACHINE Review of Systems Constitutional: Negative for appetite change, chills, diaphoresis, fatigue, fever and unexpected weight change. Respiratory: Negative. Cardiovascular: Negative. Gastrointestinal: Positive for abdominal pain (pain radiating into RLQ). Negative for constipation,diarrhea, nausea and vomiting. Genitourinary: Positive for flank pain. Negative for decreased urine volume, dysuria, frequency, hematuria, scrotal swelling, testicular pain and urgency. Musculoskeletal: Positive for back pain. Negative for arthralgias. Skin: Negative. Neurological: Negative. BP 148/74 Pulse 87 Temp 98.4 Resp 18 Ht 5' 10" (1.78m) Wt 250 lb (113.4kg) SpO2 96% [...] left lower quadrant. There is left CVA tenderness.There is no guarding or rebound. Negative signs [...] All prescriptions have been APPROPRIATELY filled. No suspiciousactivity was identified. 10/24/2022 by Jossy Natarajan APRN.CNP New medication(s) prescribed today: Yes: Flomax and [place]. Discussed new medication dosage, usage, goals of [...] patient. Jossy Natarajan APRN.AINSLEY documented in this encounterBethesda North Hospital07-07-2023 History of Present illness Narrative* Kati Robles RN - 09/23/2022 3:26 PM EDT TRANSITION CARE MANAGEMENT (TCM) FOLLOW-UP NOTE Provider Action/FYI Patient identified by name and date of : NO Summary: PCC attempted to contact patient for general follow up. No answer, left voicemail requesting returncall. [phone]. Production Supply Equipment Tender plan for next outreach: Will follow up 2 weeks Signature Kati Robles RN September 23, 2022 documented in this encounterBethesda North Hospital06-30-2023 Miscellaneous Notes* Telephone Encounter - Lachelle Sifuentes - 09/16/2022 4:12 PM EDT No Show Documentation Ruddy Ruvalcaba no showed for an appointment on 09/16/22 with Jossy Natarajan APRN.CNP at 3:20 pm. He was scheduled for a [facility]ospital follow up for hypertension.. I called and left a message for the patient regarding his missed appointment. Resources discussed/offered to patient: to return our call and reschedule. No show determined to be fault of patient: Yes This is the patients second no show in the last 12 months. Patient was rescheduled for n/a. Letter mailed : Yes Is this the Third or Fourth "No Show"? No Lachelle Sifuentes September 16, 2022 4:13 PM documented in this encounterBethesda North Hospital06-27-2023 History of Present illness Narrative* Kati Robles RN - 09/13/2022 3:52 PM EDT PRIMARY CARE COORDINATION QUICK NOTE Provider Action/FYI PCC attempted to contact patient for care coordination intake. PCC left a voicemail requesting return call to [phone] Patient identified by name and date . Kati Robles RN * Kati Robles RN - 09/13/2022 3:51 PM EDT TRANSITION CARE MANAGEMENT (TCM) FOLLOW-UP NOTE Provider Action/FYI Patient identified by name and date of : NO Summary: PCC attempted to contact patient for TCM follow up. No answer, left voicemail requesting return call. [phone]. Kati Robles RN Production Supply Equipment Tender plan for next outreach: Will follow up 1 week Signature Kati Robles RN September 13, 2022 documented in this encounterBethesda North Hospital06-20-2023 Miscellaneous Notes* Telephone Encounter - Luiz Polanco MA - 09/06/2022 7:35 AM EDT All information left on patients vm. (Ok per lifetime consent). Luiz Polanco MA * Telephone Encounter - Jossy Natarajan APRN.CNP - 09/05/2022 6:08 PM EDT US showed a small cyst to his lower left kidney but otherwise was WNL. Fatty liver present. * Telephone Encounter - Esme Faria MA - 09/05/2022 7:48 AM EDT Patient called he was admitted to [facility], he had a US done and would like to know results. Esme Faria MA documented in this encounterBethesda North Hospital06-16-2023 History of Present illness Narrative* Kati Robles RN - 09/02/2022 10:18 AM EDT TRANSITIONAL CARE MANAGEMENT (TCM) COMMUNITY MONITORING PROGRAM - [place] Provider Action/FYI: Patient reports he does have a BP cuff at home. PCC reviewed heart health low sodium diet with patient as well as exercise. Patient reports he is very active. PCC discussed BP monitor and recording at home. PCC encouraged patient to bring BP log to TCM appointment. Patient agreed. SUMMARY: Pt discharged from [facility] on 09/01/22 (AMA). Admitted for: HTN urgency Contact made with patient: Yes Hi my name is .Sixto Robles RN and I am calling from the [facility] on behalf of your PCP, Jossy Natarajan APRN.AINSLEY I understand you were recently in the [...] like to speak with a social work field marketing team leader to help give you support for any [...] to help you schedule a hospital follow-up virtualor telephone visit with your PCP. This is a great way for you to connect with your provider to ensure you have safely transitioned home. If you are agreeable, I will send your request to a coal conveyor operator who will contact and assist you [...] unless instructed to do so. For any non- emergency symptoms, call your Doctor's office to get instructions on how to manage (we might recommend a telephone or virtualvisit). For emergency symptoms, proceed to Emergency Department as usual but inform them of cough and fever symptoms TATIANA if present (or call on the way if possible). * Kati Robles RN - 09/02/2022 8:34 AM EDT TCM Home Visit Referral Source of Stratification: [facility] Admission Status: Discharged Readmission Risk Score: 12 NENITA Score: 1 Patient meets program referral criteria: No Patient does not qualify for High Risk TCM Home Visit program due to: Discharged home, does not meet program criteria Kati Robles RN September 02, 2022 8:34 AM * Kati Robles RN - 09/02/2022 8:32 AM EDT TRANSITIONAL CARE MANAGEMENT (TCM) COMMUNITY MONITORING PROGRAM - [place] Provider Action/FYI: SUMMARY: Pt discharged from [facility] on 09/01/22 (AMA). Admitted for: HTN urgency Contact made with patient: No - next outreach attempt will be on next day Outreach ended documented in this encounterBethesda North Hospital06-07-2023 Miscellaneous Notes* Telephone Encounter - Flory Vidal - 08/24/2022 3:21 PM EDT Patient did not say anything about a headache. He was just informing you of the BP reading when I called to try and make him an appointment. Flory Vidal * Telephone Encounter - Jossy Natarajan APRN.CNP - 08/24/2022 3:07 PM EDT Is his headache any better? * Telephone Encounter - Flory Vidal - 08/24/2022 10:33 AM EDT Called Patient to make a nurse visit for BP check. Patient works in [place] and will not be in the area. Patient forgot Jossy not in office today and per their discussion yesterday, he was supposed to call with BP reading. Patient will continue to monitor BP and let Jossy know. If BP is toohigh, patient stated he will come right to [facility]. Flory Vidal * Telephone Encounter - Luiz Polanco MA - 08/24/2022 10:18 AM EDT Please help assist with scheduling nurse visit. Thanks. Luiz Polanco MA * Telephone Encounter - Damien Mensah DO - 08/24/2022 9:18 AM EDT Please call pt - he messaged us that his BP at home is elevated. I would like for him to come in for NV so we can check it here Damien Mensah DO documented in this encounterBethesda North Hospital06-06-2023 Nurse Note* Esme Faria MA - 08/23/2022 10:35 AM EDT Patient has been identified by name and date of : Yes Ruddy is here for an injection of Clonidine Dose: 01 mg Route: Oral Given without incident. 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 [address] [address] Visit Date: 08/23/2022 Patient Name: Ruddy Ruvalcaba Date of : 1970 Chief Complaint: ER Follow Up Ruddy Ruvalcaba is a 52 year old male here today for a follow up to a recent emergency room (ER) visit. Emergency Room Location: [facility] Date of Emergency Room Visit: 08/18/22 Reason for Emergency Room Visit: Headache HPI: Patient presented to [facility] with his spouse on 08/18/22 for a severe headache and elevated blood pressure. He was experiencing blurred vision. CT brain was obtained and negative for any mass effect, bleed, or ischemia. CXR was negative (aorta calcified and tortuous). Labs were unremarkable. These findings were found via Care Everywhere. His states he was given the "migraine cocktail" while there but it did not help his headache at all. She remembers he was given something for his BP in his IV but thought it was called HCTZ. The patient states he had a horrible experience at the hospital and after he had his testing completed he waited 4 hours and never saw the doctor againso he left. His home BP readings continue to remain elevated 170-200's/90-100's. He rates his headache today a "22/10" and continues to having blurry vision. He denies any slurred speech, weakness inhis extremities, N/T, or difficulty walking. He does not follow with cardiology or nephrology. He is a heavy smoker and has been for years. His states he does not watch his diet at all and "always adds salt" to his food even before tastingit. He does drink a small amount of [...] 78 Temp 97.7 Resp 18 Ht 5' 10" (1.78m) Wt 243 lb (110.2kg) SpO2 96% BMI 34.87 kg/(m^2). 08/23/22 0936 08/23/22 1050 08/23/22 1051 BP: 180/104 170/100 182/102 Pulse: 78 Resp: 18 Temp: 36.5 C (97.7 F) SpO2: 96% Weight: 110.2 kg (243 lb) Height: 177.8 cm (5' 10") PAST MEDICAL HISTORY Diagnosis Date Essential hypertension [...] the chief complaint, medications, past medical, family andsocial histories obtained by others. Review of Systems [...] and headaches. Negative for tremors, seizures, syncope, facialasymmetry, speech difficulty, weakness, light- headedness and numbness. Psychiatric/Behavioral: Positive for sleep disturbance. [...] Judgment normal. Name: RUDDY RUVALCABA Rep #: [id number] : 1970 M 52 From: [facility] esther Iqbal MD PCP: Dr. Barber Brown MD Status: PRE ER Study:Brain/Head without Contrast Date of Exa m: 08/18/22 Exam# [id number] Ordering Dr: Shaun Herr DO EXAMINATION : [...] Iqbal MD Name: RUDDY RUVALCABA Rep #: [id number] : 1970 M 52 From: [facility] esther Iqbal MD PCP: Dr. Barber Brown MD Status: PRE ER Study:Chest 1 View (Portable) Date of Exam: 08/18/22 Exam# [id number] Ordering Dr: Shaun Herr DO INDICATION: htn EXAMINATION/TECHNIQUE: X-RAY - XR Chest 1 View COMPARISON: 12/07/2019. FINDINGS: The lungs are clear. Tortuous and calcified thoracic aorta. The heart is not enlarged. No pleural effusion or pneumothorax. Degenerative changes of the thoracic spine. Spine stimulator in place. Data Reviewed: Most recent labs and imaging results. Most recent EKG Outside chart from [facility] reviewed. ASSESSMENT/PLAN: 1. Uncontrolled hypertension - [...] HTN. He recently underwent CT brain at [facility] that was negative for any mass [...] history of large kidney stones that have requiredsurgery - URINALYSIS WITH MICROSCOPIC, REFLEX CULTURE - [...] which included preparing to see the patient, ufti-tf-slft patient care, completing clinical documentation, obtaining and/or reviewing separately obtained history, performing a medically appropriate examination, counseling and educating the pat ient/family/caregiver, ordering medications, tests, or procedures, communicating with other HCPs (not separately reported), independently interpreting results (not separately reported), and communicating results to the patient/family/caregiver. Jossy Natarajan APRN.AINSLEY August 23, 2022 9:49 AM documented in this encounterBethesda North Hospital06-02-2023 Miscellaneous Notes* Telephone Encounter - Carlene Hussein MA - 08/19/2022 9:30 AM EDT patient electronically requesting refills as follows: Last seen 12/10/21 . Last refill 12/10/21 . Next office visit 08/23/22 Requested Prescriptions Pending Prescriptions Disp Refills lisinopril (ZESTRIL) 40 mg tablet 30 tablet 2 Sig: Take 1 tablet by mouth once daily. Please review and advise. Carlene Hussein MA documented in this encounterCleveland [id number] Miscellaneous Notes* Telephone Encounter - Luiz PolancoGALINA - 08/19/2022 7:19 AM EDT Please help assist with scheduling apt. documented in this encounterBethesda North Hospital05-15-2023 History of Present illness Narrative* Fabiola Marino RT(R) - 08/01/2022 9:00 AM EDT Radiology Service Progress Note PATIENT NAME: Ruddy Ruvalcaba DATE OF SERVICE: August 01, 2022 TIME: 9:55 AM PATIENT IDENTITY VERIFICATION COMPLETED USING TWO (2) IDENTIFIERS: Name and Date of confirmedby patient verbally. FALL SCREENING: Has the patient [...] 01, 2022 9:55 AM documented in this encounterBethesda North Hospital05-11-2023 Miscellaneous Notes* Telephone Encounter - Brandi Iniguez LPN - 07/28/2022 7:36 AM EDT Phone call placed detailed message left on patient's identified voicemail, [employer] logon 07/27/2022. Brandi Iniguez LPN * Telephone Encounter - Niki Olivares PA-C - 07/27/2022 6:47 PM EDT Please call and let patient know his COVID and flu test was negative. documented in this encounterBethesda North Hospital05-10-2023 History of Present illness Narrative* Nikky Naranjo RT(R) - 07/27/2022 9:20 AM EDT Radiology Service Progress Note PATIENT NAME: Ruddy Ruvalcaba DATE OF SERVICE: July 27, 2022 TIME: 9:20 AM PATIENT IDENTITY VERIFICATION COMPLETED USING TWO (2) IDENTIFIERS: Name and Date of confirmedby patient verbally. FALL SCREENING: Has the patient had 2 falls in the last year or 1 fall with injury or currently using an Ambulatory Assistive Device (Walker, Cane, Wheelchair, Crutches, etc.)? No PATIENT GENDER DATA: Male PATIENT RELEVANT IMPLANT DATA REVIEWED: Yes RADIOLOGY DEPARTMENT: General X-ray: Exam(s) Completed: Chest X-Ray PERIPHERAL IV DATA: Not applicable SIGNED BY: RT Jose(R) July 27, 2022 9:20 AM documented in this encounterBethesda North Hospital05-10-2023 History of Present illness Narrative* Cinthia Mcwilliams APRN.CERAMIC COATER MACHINE - 07/27/2022 8:57 AM EDT This note was created using PureForger[employer]. Subjective Ruddy Ruvalcaba is a 52 year [...] AEROSOL INHALER - INHALATIONAL SPACING DEVICE Cinthia Mcwilliams APRN.CERAMIC COATER MACHINE documented in this encounterBethesda North Hospital05-09-2023 Miscellaneous Notes* Telephone Encounter - Luiz Echevarria LPN - 07/26/2022 2:08 PM EDT Patient called checking on status on pain medication refill Ruddy# [phone] Luiz Echevarria LPN documented in this encounterBethesda North Hospital05-02-2023 Miscellaneous Notes* Telephone Encounter - Debra Ruano Ma - 07/19/2022 9:47 AM EDT Patient called in checking on the status of his refill request from the weekend. documented in this encounterBethesda North Hospital04-25-2023 Miscellaneous Notes* Telephone Encounter - Sylvia Augustine RN - 07/12/2022 9:51 AM EDT Patient called in with concerns stating that he is completely out of his oxycodone. Patient reportspain 09/26 with increased edema. States that he is using denn-pfn-pwyqvey medications, ice, and is wearing his brace. Patient also requesting update on possible second opinion. Sylvia Augustine RN * Telephone Encounter - Debra Ruano Ma - 07/12/2022 8:20 AM EDT Duplicate request by patient. documented in this [facility]04-24-2023 Miscellaneous Notes* Telephone Encounter - Damien Borges LPN - 07/11/2022 10:36 AM EDT Patient calling to check on status of refill and ask to have message sent due to being out. Damien Borges LPN documented in this [facility]04-06-2023 Miscellaneous Notes* Telephone Encounter - Katelin Muse RN - 06/23/2022 10:21 AM EDT Pt called in asking about status of refill. Please review. documented in this [facility]03-24-2023 Miscellaneous Notes* Telephone Encounter - Rosana Burdick - 06/10/2022 11:00 AM EDT Pt calling to check on the status of refill of Percocet. He ran out yesterday. He is also asking about how the schedule the bone scan that was discussed at his appointment Monday. Please review and advise. Rosana Burdick MA documented in this encounterBethesda North Hospital03-20-2023 History of Present illness Narrative* Debra Ruano Ma - 06/06/2022 10:03 AM EDT PT ASSESSMENT - CASTING ROOM Ruddy presents for Application of brace. Applied large playmaker to Right knee. Patient electronically signed PPA. Patient declined to pay for brace today as he is on HCAP program. Patient has been advised to contact 800 number on statementwhen received to set up payment plan. He verbalized understanding. Patient has been instructed in Care and proper application of brace. Debra Ruano Ma * Miguel Laguna MD - 06/06/2022 9:10 AM EDT Miguel Laguna MD Department of Orthopaedics Orthopaedics [address] [place] [id number] Dept: [phone] Dept June 06, 2022 CHIEF COMPLAINT: Established Patient, Swelling, and Knee Pain of the Right Knee. HPI Patient present to office with continuing pain and swelling. Patient is 6 months post op right TKA.Patient rates pain 6/10 on pain scale. Patient [...] appears normal though it did cause him somediscomfort with an anterior drawer. Varus and valgus [...] 4 tabs day 3, 3 tabs day 4,2 tabs day 5, 1 tab day 6. (Patient not taking: Reported on 04/25/2022) No current facility-administered medications for this visit. Allergies: Patient has no known allergies. Miguel Laguna MD documented in this encounterBethesda North Hospital03-08-2023 Miscellaneous Notes* Telephone Encounter - Debra Ruano Ma - 05/25/2022 4:05 PM EST Addressed in another refill encounter today by Dr. Laguna. * Telephone Encounter - Rosana Burdick - 05/24/2022 10:23 AM EST Pt calling back to see status of prescription refill. Please review and advise. Rosana Burdick MA * Telephone Encounter - Luiz Echevarria LPN - 05/23/2022 9:32 AM EST Patient called in to follow up on script for pain medication. Please review and advise. Thank you. Luiz Echevarria LPN documented in this encounterBethesda North Hospital03-08-2023 Miscellaneous Notes* Telephone Encounter - Debra Ruano Ma - 05/25/2022 4:04 PM EST Refilled in another encounter today by Dr. Laguna. documented in this encounterBethesda North Hospital03-08-2023 Miscellaneous Notes* Telephone Encounter - Debra Ruano Ma - 05/25/2022 4:01 PM EST I left a detailed message for patient on voicemail. * Telephone Encounter - Daniela Manriquez RN - 05/25/2022 10:28 AM EST Patient phones requesting refills as follows: Requested Prescriptions Pending Prescriptions Disp Refills oxyCODONE-acetaminophen (PERCOCET) 5-325 mg tablet 20 tablet 0 Sig: Take 1 tablet by mouth every 8 hours as needed. Please review and advise. Daniela Manriquez RN documented in this encounterBethesda North Hospital02-24-2023 Miscellaneous Notes* Telephone Encounter - Katelin Muse RN - 05/13/2022 10:21 AM EST Pt called to inquire about status of refill for percocet, pt wanted to take care of it before the weekend. Please advise. Katelin Muse RN documented in this encounterBethesda North Hospital02-17-2023 Miscellaneous Notes* Telephone Encounter - Verónica Lopez RN - 05/06/2022 4:17 PM EST Pt calling in requesting refill of his pain medication. States he has sent a MC message, called in multiple times and now it's Monday afternoon and he is afraid he will be without his medication overthe weekend. Please respond to his request tatiana. Thank you. Verónica Lopez RN * Telephone Encounter - Luiz Echevarria LPN - 05/06/2022 10:54 AM EST Patient calling back again regarding pain medication refill? Please review and update patient. Thank you. * Telephone Encounter - Luiz Echevarria LPN - 05/05/2022 10:20 AM EST Patient called back today, following up on requesting pain medication. Thank you. documented in this encounterBethesda North Hospital02-10-2023 Miscellaneous Notes* Telephone Encounter - Luiz Polanco MA - 04/29/2022 8:20 AM EST Called left message on patients voicemail with all information. Gave hours for our lab. .Luiz Polanco MA * Telephone Encounter - Jossy Natarajan APRN.AINSLEY - 04/29/2022 8:02 AM EST Order for fasting lipid panel placed. * Telephone Encounter - Esme Faria MA - 04/29/2022 7:20 AM EST ----- Message from Esme Faria MA sent at 01/28/2022 5:03 PM EST ----- lipid panel again in 3 months documented in this encounterBethesda [facility]02-06-2023 History of Present illness Narrative* Miguel Laguna MD - 04/25/2022 9:07 AM EST AMB ROOMING INTAKE FLOWSHEET DATA Pain Pain [...] in the office its been difficult to evaluatefor any swelling outside the normal. He will continue his range of motion and strengthening and activity level. We will continue some pain medication to get him through these next couple of months. The goal for both of us is to wean him off. Miguel Laguna MD documented in this encounterBethesda North Hospital01-19-2023 Miscellaneous Notes* Telephone Encounter - Luiz Echevarria LPN - 04/07/2022 12:49 PM EST Ruddy called back stating, still having pain "7" in Right knee, completed the steroids and has been taking ibuprofen and tylenol, he is back using his crutches because to painful to bear weight. states needs to have something for pain. Please advise. Thank you. Ruddy# [phone] documented in this encounterBethesda North Hospital01-05-2023 Miscellaneous Notes* Telephone Encounter - Debra Ruano Ma - 03/24/2022 3:58 PM EST I called and spoke with patient. Message from Monica Venegas PA-C given and patient verbalized understanding. Patient has been scheduled on Monday03/28/2022 at 2:30 pm. Monica to bring kit from [place] office. * Telephone Encounter - Monica Venegas PA-C - 03/24/2022 1:24 PM EST Can we let that patient know that his inflammatory markers were elevated and we need to aspirate his knee to rule out infection. We can get him scheduled for an office visit next week? * Telephone Encounter - Monica Venegas PA-C - 03/22/2022 1:33 PM EST Responded to patient's [employer] message, see epic. Dr. Laguna would like the patient to have some inflammatory markers drawn. Order for testing has been placed. We will contact the patient once we have the results of the lab tests. * Telephone Encounter - Verónica Lopez RN - 03/22/2022 9:26 AM EST Pt calling in. States he is still having pain (rated from 5-7) in right knee. States he sent a [facility] message on 03/14/22 and has not gotten a response. Pt is currently taking Tylenol and Ibuprofen, but would like something else to help manage the pain. Please call pt and advise. Thank you. Verónica Lopez RN documented in this encounterBethesda North Hospital12-09-2022 Miscellaneous Notes* Telephone Encounter - Monica Venegas PA-C - 02/25/2022 10:19 AM EST He is over 3 months out from his surgery, it is not appropriate to continue with narcotic pain medications this far out. I have been more than generous because of his pain control issues, and did taper him off the narcotics more slowly than I do for most patients. documented in this encounterBethesda North Hospital12-05-2022 History of Present illness Narrative* Miguel Laguna MD - 02/21/2022 10:20 AM EST Miguel Laguna MD Department of Orthopaedics Orthopaedics [address] [place] [id number] Dept: [phone] Dept February 21, 2022 CHIEF COMPLAINT: Established Patient and Post Op of the Right Knee. HPI Patient here today for 11 weeks 5 days post op robotic right TKA. Patient still having swellingand pain. He is no longer doing PT. [...] see him back at around the 6-month aislinn. Exam: Surgical incision is healed. Very minimal [...] Allergies: Patient has no active allergies. Miguel Laguna MD documented in this encounterBethesda North Hospital11-21-2022 Miscellaneous Notes* Telephone Encounter - Debra Ruano Ma - 02/07/2022 8:10 AM EST I left a detailed message on identified voicemail. documented in this [facility]11-11-2022 Miscellaneous Notes* Telephone Encounter - Esme Faria MA - 01/28/2022 5:02 PM EST Patient is informed Esme Faria MA * Telephone Encounter - Jossy Natarajan APRN.CNP - 01/28/2022 4:58 PM EST Rx for Lipitor sent in for patient to start. Recheck lipid panel again in 3 months- please place reminder. * Telephone Encounter - Esme Faria MA - 01/28/2022 2:34 PM EST Patient called stating that he won't be able to come to his appointment on Monday but he still would like to try the new medication that he was going to be prescribed at his appointment on Monday. Esme Faria MA documented in this encounterBethesda North Hospital11-10-2022 Miscellaneous Notes* Telephone Encounter - Rosana Burdick - 01/27/2022 10:01 AM EST Patient phones requesting refills as follows: Requested Prescriptions Pending Prescriptions Disp Refills oxyCODONE IR (ROXICODONE) 5 mg immediate release tablet 30 tablet 0 Sig: Take 1 tablet by mouth every 8 hours as needed for pain for up to 10 days. Please review and advise. Rosana Burdick documented in this encounterBethesda North Hospital11-09-2022 Miscellaneous Notes* Telephone Encounter - Debra Ruano Ma - 01/26/2022 4:08 PM EST I called and left a detailed message on identified voicemail for patient with message below. * Telephone Encounter - Debra Ruano Ma - 01/26/2022 4:08 PM EST Images from the original note were not included. BEAU Castillo [facility] Orthopaedic Pool Can we let him know that his ultrasound was negative for DVT. So swelling is likely just from surgery and will resolve with time. He should keep icing and elevating. Monica documented in this encounterBethesda North Hospital11-02-2022 History of Present illness Narrative* Cindy Burch, PT - 01/19/2022 1:09 PM EDT Episode Visit Count: 3 Therapist That Will [...] has stopped using the cane due to "it's annoying." He hadto cancel last visit due to having the [...] exercises in regards to decreasing fatigue , includingbalance, increase ease of ADL, and ROM and [...] 40 Cindy Burch PT documented in this encounterBethesda North Hospital10-27-2022 History of Present illness Narrative* Miguel Laguna MD - 01/13/2022 1:01 PM EDT Images from the original note were not included. Patient presents with: Right Knee - Established Patient, Pre-Op Visit Ortho Knee Follow Up Note Narrative Referring Provider: Miguel Laguna [address] [facility] [address] PCP: Jossy Natarajan APRN.CERAMIC COATER MACHINE IMPRESSION/PLAN: 51 year old s/p Right Total [...] BASED ON CT/MRI IMAGES (Right; Right) Miguel Laguna MD - Posted 10/26/2016 (3yr) ARTHROSCOPY KNEE ARTICULAR CARTILAGE SHAVING OR DEBRIDEMENT (Right) Miguel Laguna MD - Posted 10/09/2015 (4yr) ARTHROSCOPY KNEE W/ MENISCECTOMY MEDIAL (Right) Miguel Laguna MD - Posted PAIN EVALUATION 01/13/2022 1301 [...] Serious Comorbidity and Body Mass Index (Bmi) of35.0 to 35.9 in Adult (Hcc) Post-Traumatic Osteoarthritis of Right Knee Tobacco Smoker, 1 Pack of Cigarettes Or Less Per Day S/P Knee Replacement Status post op: BMI: There is no height or weight on file to calculate BMI. Post-operative recovery was complicated by uneventful/none. Readmission(s) since surgery (90 days post)? No ED Visits & Hospitalizations - Last 180 days 12/01/21 Miguel Laguna MD, ME2E S/P total knee arthroplasty, right, [...] - - Planned treatment interventions Therapeutic exercise (74772);Neuromuscular re- education (90183);Manual therapy (58005);Therapeutic activities (38134);Self- [place] management (81399);Gait Training (15697);Patient/Family/Caregiver Education - - Plan for next visit Assess ROM progress. Gait training with striaght cane or single crutch Continueprogressing AAROM and AROM as tolerated. Progress to standing and gait as symptoms reduce. Continuefunctinal strength and balance training Provider signed Cindy [...] aligned. Implants are well fixed. Provider: Miguel Laguna MD Completed by: Miguel Laguna MD documented in this encounterBethesda North Hospital10-20-2022 History of Present illness Narrative* Cindy Burch, PT - 01/06/2022 1:45 PM EDT Episode Visit Count: 2 Therapist That Will [...] and function . Patient education as noted. Self-Fci Management: 1: *pt. requires instruction during visit [...] 40 Cindy Burch PT documented in this encounterBethesda North Hospital10-17-2022 Miscellaneous Notes* Telephone Encounter - Keiry Hand - 01/03/2022 1:24 PM EDT No Show Documentation Ruddy Ruvalcaba no showed for an appointment on 01/03/2022 with Jossy Natarajan APRN.CERAMIC COATER MACHINE at 9:20am. He was scheduled for F/U [...] Yes Is this the Third or Fourth "No Show"? No Keiry Hand January 03, 2022 1:24 PM documented in this encounterBethesda North Hospital10-12-2022 History of Present illness Narrative* Cindy Burch, PT - 12/29/2021 8:41 AM EDT Episode Visit Count: 1 Therapist That Will [...] interferes with working;stair negotiation;walking in the community;bending;lifting;heavy exertion;kneeling;squatting;driving;weight bearing;sleeping . He presents with impairments in [...] of Care: created on 12/29/21 through 02/23/22 Ben Bolt in home exercise program. Patient will decrease [...] negotiation. Patient will ascend and descend 4 4" steps with rail. with no device independently and safe technique demonstrating step to pattern. Patient will increase balance to 10 seconds for single limb stance on RLE and 10 seconds for singlelimb stance on LLE. Patient Goals: golf before winter Planned Interventions, Frequency, and Duration: Current Frequency: 2x/week Duration: 8 weeks Total Number of Visits Planned: 16 Planned Treatment Interventions: Therapeutic exercise (82057);Neuromuscular re- education (11582);Manual therapy (10724);Therapeutic activities (82214);Self- [place] management (49077);Gait Training (75622);Patient/Family/Caregiver Education PLAN FOR NEXT VISIT: Assess ROM progress. Gait training with striaght cane or single crutch Patient demonstrates good understanding of plan of care and treatment. The above goals and plan of care were discussed and agreed upon by patient/family. SUBJECTIVE: Ruddy Ruvalcaba is a 51 year old male seen today for for R knee pain s/p R TKA 12/01/21by Dr. Laguna. Pt. was d/c home with home care PT. He now presents to out patient PT to further progress functional strength and mobility of R knee to return to working outside the home and golf. 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 [...] (sec) : 17.8 Education: Education Learning Preferences: Demonstration;Explanation;Performance;Printed Materials Barriers: Acuity of Illness Learning/educational needs: Plan of Care;Home exercise program;Posture;Gait Training;Safety;Crutch Training;Body Mechanics Education Provided: Yes, see treatment interventions for education provided Education Provided To: Patient Education Mode/Type: Demonstration;Explanation/Discussion;Literature/Printed Materials;Performance Response to Education/Teach Back: States/Identifies;Return Demonstration TREATMENT: PT Treatment Interventions: Therapeutic Exercise;Self-Fci Management Evaluation Therapeutic Exercise: 1: supine quad [...] and function . Patient education as noted. Self-Fci Management: 1: *discussed taking Rx pain medication [...] 45 Cindy Burch PT documented in this encounterBethesda North Hospital10-07-2022 Miscellaneous Notes* Telephone Encounter - Debra Ruano Ma - 12/24/2021 2:36 PM EDT Rx has been refilled by Monica Venegas PA-C. Patients spouse notified Rx was sent to pharmacy. * Telephone Encounter - Luiz Echevarria LPN - 12/24/2021 1:10 PM EDT Patient called requesting a refill on his pain medication, states this is a 3rd request since 12/22/21, requested originally via [employer]. Patient states has been out since yesterday and is alternating with Tylenol and ibuprofen and it isnot helping. Ruddy# [phone] documented in this encounterBethesda North Hospital09-29-2022 Miscellaneous Notes* Telephone Encounter - Suad Huddleston, PT - 12/16/2021 2:01 PM EDT Jorge Cano I discharged Mr Ruvalcaba form homecare PT today as he has met all of his goal. There is still an issue with his elevated BP Despite the increase in his medications for HTN. 164/100 at rest. Thank you documented in this encounterBethesda North Hospital09-29-2022 Miscellaneous Notes* Telephone Encounter - Suad Huddleston, PT - 12/16/2021 1:18 PM EDT Jorge Laguna I've D/C Mr Ruvalcaba today from home care PT. He would like to start outpt PT as soon as possible Thank you Suad documented in this encounterBethesda North Hospital09-29-2022 Miscellaneous Notes* HH PT DISCHARGE - Suad Huddleston PT - 12/16/2021 1:08 PM EDT SITUATION: only patient present during today's visit. patient reports the following since the last homecare visit: medications/allergies--no changes, no fall. patient reports uses crutches or FWW. He did see Rachael her PCP's PA about his HTN, and she made changes to his meds, he sees her again 01/04 and labwork has been ordered. He was told on [...] summary for intervention/education details. documented in this encounterBethesda North Hospital09-28-2022 Miscellaneous Notes* Telephone Encounter - Rachael Cano MA - 12/15/2021 10:53 AM EDT Last OV 12/13/2021 Next OV 01/13/2022 Patient [...] review. Rachael Cano MA documented in this encounterBethesda North Hospital09-24-2022 Miscellaneous Notes* PT ROUTINE/REASSESSMENT/RECERT/CASE MGMT - Naty Molina, MIGUEL - 12/11/2021 10:26 AM EDT SITUATION: spouse present during today's visit. patient reports the following since the last homecare visit: medications/allergies--dr increased lisinopril dose and added norvasc, no fall. patient reports "doing my exercises all the time, all day long. Possibly doing too much with walking and the steps". Reports having hard time getting comfortable trying [...] summary for intervention/education details. documented in this encounterBethesda North Hospital09-23-2022 History of Present illness Narrative* Jossy Natarajan APRN.CERAMIC COATER MACHINE - 12/10/2021 3:22 PM EDT CHIEF COMPLAINT: Ruddy Ruvalcaba is a 51 [...] history is provided by the patient. No biomass plant manager was used. Hypertension The current episode started [...] 76 Temp 98 Resp 18 Ht 5' 10" (1.78m) Wt 241 lb (109.3kg) SpO2 98% BMI34.58 kg/(m^2). Physical Exam Vitals and nursing note [...] starch, healthy oil intake (olive oil), healthy protein(fish) along the lines of the Mediterranean diet. [...] patient. Jossy Natarajan APRN.AINSLEY documented in this encounterBethesda North Hospital09-21-2022 Miscellaneous Notes* Addendum Note - Monica Venegas PA-C - 12/08/2021 2:09 PM EDTAddended by: MONICA VENEGAS on: 12/08/2021 02:09 PM Modules accepted: Orders * Telephone Encounter - Monica Venegas PA-C - 12/08/2021 2:08 PM EDT OP PT order placed. * Telephone Encounter - Rubi Wilson PTA - 12/08/2021 1:55 PM EDT Removed surgical bandage today. No concerns. Picture obtained and uploaded to chart. Would like to schedule patients OP PT to begin at completion of Home Care PT. Can you please enter orders so I can get that scheduled for him? Thanks documented in this encounterBethesda North Hospital09-21-2022 Miscellaneous Notes* PT ROUTINE/REASSESSMENT/RECERT/CASE MGMT - Rubi Wilson PTA - 12/08/2021 10:00 AM EDT SITUATION: spouse present during today's visit. patient [...] after exercises. instructed patient and (nurse) to continueto monitor BP and to call Dr or [...] summary for intervention/education details. documented in this encounterBethesda North Hospital09-19-2022 Miscellaneous Notes* Telephone Encounter - Rosie Phillip, PT - 12/06/2021 10:05 AM EDT . documented in this encounterBethesda North Hospital09-19-2022 Miscellaneous Notes* PT ROUTINE/REASSESSMENT/RECERT/CASE MGMT - Rosie Phillip, PT - 12/06/2021 9:06 AM EDT SITUATION: significant other present at beginning of [...] gait, endurance, rt knee joint ROM, transfers, stairnegotiation, aerobic capacity and bed mobility. Left mesage with primary to notify of BP and to schedule an appt Current Discharge Plan: outpatient rehab. Anticipate discharge by 12/18/21 RECOMMENDATION: Next visit to focus on progression of TKA hep instr, gt training w/ crutches, monitor bp. See intervention summary for intervention/education details. documented in this encounterBethesda North Hospital09-18-2022 Miscellaneous Notes* Case Communication - Luiz Mcknight, PT - 12/05/2021 6:24 PM EDTPT start of care visit completed 12/04. Pt [...] story house w/ bedroom and full bathroom up stairs. No bathroom on first floorso bedside commode placed in living room. 3 front entry steps without railing. Prior to surgery, ptwas walking without a device w/ a great deal of pain. During visit today, pt's bp was 200/90 at rest. Pt denied headache or chest pain/pressure. Called virtualist who advised taking a second lisinopril today and keep checking his bp over the next few days. Pt has a followup visit scheduled w/ battery tester and repairer december but if bpremains high, he may benefit [...] yet. Please call me with any questions. Thanks, MJ * PT SOC/CINTHIA/FOLLOW UP/OTHER - Luiz Mcknight PT - 12/04/2021 2:00 PM EDT SITUATION: significant other present at beginning of [...] Precautions: WBAT rt ASSESSMENT: [facility]. Reviewed and explained homecare services. Plan of care, goals, and visit frequency developed, reviewed, and agreed upon with patient and/or caregiver. Called virtualist during visit d/t high resting bp (200/90). Virtualist physician advised pt to take 2 lisinopril today instead of 1. Pt has followup appt w/ battery tester and repairer in mid December. Advised pt to call [...] summary for intervention/education details. documented in this encounterBethesda North Hospital09-15-2022 Miscellaneous Notes* Telephone Encounter - ANGEL Bourgeois - 12/02/2021 10:16 AM EDT INS staff advised patient to call [facility] Customer Service at [phone] and ask to speak to a [facility] Financial Counselor to discuss financial options or apply for HCAP lelo program. S/W [facility] Customer Service at [phone] and ask to speak to a [facility] Financial Counselor to discuss financial options or apply for HCAP lelo program. Advised of the information noted above. ANGEL Bourgeois 12/02/2021 10:18 AM documented in this encounterBethesda North Hospital09-14-2022 Miscellaneous Notes* Telephone Encounter - ANGEL Bourgeois - 12/01/2021 12:59 PM EDT Welcome Home Call: a. Date and Time: 12:59 PM 12/01/2021 b. Contact name/relationship: Hansa Ruvalcaba (Spouse) c. Have you been active with any Home Care company in the last 60 days(such as help with bathing, filling medications, checking your blood pressure) ? No. d. Was patient given Flu shot this Season (After Nov,): No: Patient refused e. [facility] will be providing your [...] maintain a safe environment for our caregivers, [facility] requires anyanimals or weapons present in the home be located in a secured location. Our clinicians will call you the night before or the morning of the appointment. Their # may come up restricted but they'll leave a VM for you. In case you have any questions or concerns in the meantime, our # is [phone], option 1 Thank you for your time and have a great day. ANGEL Bourgeois documented in this encounterBethesda North Hospital09-12-2022 History of Present illness Narrative* Jaime So PT - 11/29/2021 6:16 PM EDT Episode Visit Count: 1 Therapist That Will [...] due to: current objective clinical presentation;good overall healthstatus;acuteness of condition;good support system/ coping skills;within-session changes. He will benefit from skilled therapy services to meet the goals established for this plan of care as noted below. Goals for Episode of Care: created on 11/29/21 through 12/06/21 Pt will fully understand all procedures related to same day d/c following R TKA, including safe transfers, all equipment, gait and stairs. Ben Bolt in home exercise program. 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 Hobbies / Interests: [...] with crutches WBAT/PWB on R LE and alsowith FWW. This took lots of verbal cues and demonstration but he was successful by the end of gait training session. Stairs: After instruction pt was able to ascend and descend 4 steps with B axillary crutches WBAT/PWB on R LE. Functional Performance Test Results Assistive Device: None Timed Up and Go (sec): 12.3 sec Education: Education Learning Preferences: Demonstration;Explanation;Performance;Printed Materials Barriers: None Learning/educational needs: Procedure / Surgery;Safety;Home exercise program;Plan of Care;Gait Training;Crutch Training;Body Mechanics Education Provided: Yes, see treatment interventions for education provided Education Provided To: Patient Education Mode/Type: Demonstration;Literature/Printed Materials;Explanation/Discussion;Performance Response to Education/Teach Back: States/Identifies;Return Demonstration;Requires Review/AdditionalEducation TREATMENT: PT Treatment Interventions: Self-Fci Management;Gait Training Evaluation Gait Training: Stair Training: Pt was educated on how to ascend and descend 4 steps with B axillary crutches WBAT/PWB on R LE without rail. This was demonstrated, explained and verbal cues provided as he practiced.He will practice entry steps and level ground [...] patterns. Handout was provided to supplement all gaittraining done. Skilled Intervention: Facilitated proper gait cycle with the use of verbal, visual, and tactile cues for correction of gait deviations identified in the objective section above. Skilled judgment used to assess selection, proper sizing, and proper use of assistive device. Self-Fci Management: 1: The entire procedure, post-op plans, [...] 50 Jaime So PT documented in this encounterBethesda North Hospital09-09-2022 History of Present illness Narrative* Jossy Sandy Tashanthony, BRYANNA.CERAMIC COATER MACHINE - 11/26/2021 2:33 PM EDT CHIEF COMPLAINT: Ruddy Ruvalcaba is a 51 [...] right knee replacement next week with Dr. Laguna and his blood pressure was elevated at [...] by the patient and the spouse. No biomass plant manager was used. Hypertension This is a recurrent [...] is no history of angina, kidney disease, CAD/MN, CVA, heart fa ilure, left ventricular hypertrophy, PVD or retinopathy. There [...] 76 Temp 97.8 Resp 16 Ht 5' 10" (1.78m) Wt 245 lb (111.1kg) SpO2 96% BMI 35.15 kg/(m^2). Physical Exam Vitals and nursing note reviewed. Constitutional: Appearance: He is well-developed. He is obese. HENT: Head: Normocephalic. Mouth/Throat: Lips: [place]. Eyes: General: Vision grossly intact. Conjunctiva/sclera: Conjunctivae [...] 11/15/2021 2.35 1.00 - 4.00 k/uL Final [place]% 11/15/2021 8.1 % Final Abs [place] 11/15/2021 0.83 <0.87 k/uL Final [place]% 11/15/2021 [...] 95 74 - 99 mg/dL Final The [place] Diabetes Association (ADA) provides guidance for cutoff values for fasting glucose andrandom glucose. The ADA defines fasting as no [...] Standards of Medical Care in Diabetes 2016, [place] Diabetes Association. Diabetes Care. 2016.39(Suppl 1). BUN [...] creatinine assay has traceable calibration to isotope dilution- mass spectrometry. Refer to KDIGO guidelines for clinical interpretation. In patients with unstable renal function, e.g. those with acute kidney injury, the eGFRmay not accurately reflect actual GFR. ABO 11/15/2021 A Final Rh(D) 11/15/2021 Positive Final Antibody Screen 11/15/2021 Negative Final HIstorical Ab Scr Status 11/15/2021 NEGATIVE Final ABO 11/15/2021 A Final Rh(D) 11/15/2021 Positive Final Hemoglobin A1C 11/15/2021 5.4 4.3 - 5.6 % Final [place] [employer] guidelines indicate that patients with HgbA1c in the range 5.7-6.4% are at increased risk for development of diabetes, and intervention by lifestyle modification may be beneficial. HgbA1c greater or equal to 6.5% is considered diagnostic of diabetes. Estimated Average Glucose 11/15/2021 108 mg/dL Final eAG: (Estimated average glucose) is a calculated value from HgbA1c and is title insurance sales representative of the average blood glucose [...] starch, healthy oil intake (olive oil), healthy protein(fish) along the lines of the Mediterranean diet. [...] with serious comorbidity and body mass index (BMI)of 35.0 to 35.9 in adult (HCC) - [...] patient. Jossy Natarajan APRN.CNP documented in this encounterBethesda North Hospital08-29-2022 Instructions* Patient Instructions* Margie Barrera APRN.CNP - 11/15/2021 2:31 PM EDT PATIENT PREOPERATIVE INSTRUCTIONS Miguel Laguna MD has scheduled you for your procedure at this surgery center: [facility], [place]: [phone] -- [address] [address]. Please read below carefully for your personalized [...] Procedures: - YOU MUST HAVE A RESPONSIBLE EMERGENCY COMMUNICATIONS OPERATOR TAKE YOU HOME. A TOURING PRODUCTION MANAGER OR TOOLROOM KEEPER CANNOT BE MADE A RESPONSIBLE EMERGENCY COMMUNICATIONS OPERATOR. - We recommend that a responsible person stays with you overnight to take care of you. - You cannot stay in a hotel alone after outpatient surgery. You will not be permitted to have yoursurgery, if you do not have someone to [...] Advance Directive, please fax a copy to [phone] or email to for it to be added to your chart. If you do not have an Advance Directive, you can find the appropriate form and more information at [email or web address]. We recommend that youcomplete the Advance Directive form found on the website and bring it with you the day of your surgery. It can be witnessed and scanned into your chart that day. Margie Barrera APRN.CNP documented in this encounterBethesda North Hospital08-29-2022 History and physical note * Margie Barrera APRN.CNP - 11/15/2021 2:29 PM EDT HISTORY AND PHYSICAL EXAMINATION SERVICE DATE: 11/15/2021 SERVICE TIME: 2:29 PM PRIMARY CARE PHYSICIAN: Estefania Guardado MD REASON FOR VISIT: Ruddy Ruvalcaba is a 51 year old male who is scheduled for Procedure(s): ROBOTIC ASSISTED TOTAL KNEE ARTHROPLASTY (Right) at the request of Dr. Miguel Laguna for consultation. My final recommendation will be [...] Serious Comorbidity and Body Mass Index (Bmi) of35.0 to 35.9 in Adult (Hcc) Post-Traumatic Osteoarthritis of Right Knee COVID-19 Immunization Status Overdue - COVID-19 VACCINE (1) Overdue - never done No completion, postpone, frequency change, or communication history exists for this topic. CHIEF COMPLAINT: Pre-op exam HPI: RB is a 51 yo seen for PAC due to scheduled above surgery because OA right knee. 11/01/2021 Dr. Miguel Laguna Ruddy Ruvalcaba is a 51 year old [...] 10 with minimal activity. The pain is constantand is located along the inside aspect and in the back. The pain is described as aching, severe, and sharp. Relieving factors include rest. There is no specific incident that brought about this pain. Ruddy Ruvalcaba has no additional complaints. FUNCTIONAL STATUS: Participate in moderate recreational activities, such as golf, bowling, dancing,doubles tennis, or throwing a baseball or football [...] Months or Greater (meloxicam (Mobic)), Steroid Injections RightKnee Previous Surgery: Knee Arthroscopy REVIEW OF SYSTEMS: [...] no height and/or weight reading in the [id number] days, so the below BMI readings may [...] analgesics as needed). Negative for: cerebral palsy, IMPORT/EXPORT AGENT tumor, dementia, multiple sclerosis, paraplegia, Parkinson's disease, seizures, TIA and strokes. Respiratory: No history of current cough or dyspnea, or pneumonia in the past 6 weeks. No history of respiratory/pulmonary symptoms or problems. Cardiovascular: Positive for: hypertension (hx, no longer taking rx) Negative for: anticoagulation therapy, arrhythmia, atrial fibrillation, CAD, chest pain, CHF, congenital heart defect, DVT/PE, hyperlipidemia, recent MN, murmur/valvular heart disease, open heart surgery and [...] (Src) 98.1 (Temporal) Resp 18 Ht 5' 10" (1.78m) Wt 245 lb (111.1kg) SpO2 96% [...] 366 QTC Calculation (Bazett) 395 Calculated P Cabot 8 Calculated R Cabot 23 Calculated T Cabot 22 Impression SINUS RHYTHM WITH 1ST DEGREE AV BLOCK OTHERWISE NORMAL ECG No results found for this or any previous visit (from the past 64759 hour(s)). Assessment Essential hypertension Assessment: hx of [...] serious comorbidity and body mass index (BMI) of35.0 to 35.9 in adult (HCC) Assessment: Body [...] have a large neck STOP-Bang Score: 5 [id number] Score: Age: <65 Sex: male CHF history: No Hypertension history: Yes Stroke/TIA/thromboembolism history: No Vascular disease history: No Diabetes history: No [id number] Score: 1 ARISCAT Score: Age: 51-80 Preoperative [...] and consent discussed: yes. Patient / Responsible Alliance Party agrees to proceed: yes Patient / Surrogate [...] [facility] Planned Surgery or Procedure: Answer: Lauren Confirm Blood Type Standing Status: Future Standing [...] 2:29 PM PAGER/CONTACT #: documented in this encounterBethesda North Hospital08-25-2022 Miscellaneous Notes* Telephone Encounter - Luiz Love [facility] - 11/11/2021 3:04 PM EDT Patient is scheduled for physical therapy at [facility] on 11-29-21 * Telephone Encounter - Cecilio Jackson [facility] - 11/11/2021 12:50 PM EDT PLease call patient to schedule pre op Physical therapy session in anticipation for patient to havea same day discharge surgery on 12/01/21. Order in Epic. Thanks. 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 She works 3 days a week Home Environment: Home Layout: 2 story, Entry Steps: 2, no rail, Bedroom Location: 2nd floor, Bathroom Location: 2nd floor, and full bath in basement and tub shower. Pt does not have any equipment. Would like a walkerthrough us. Discussed with patient importance of attending joint education class and provided date and times ofclass: YES paper copy Patient received Joint Education Binder: Yes Patient plans discharge. Patient has HCAPS. SIGNATURE: ANGEL Valdivia PATIENT NAME: Ruddy Ruvalcaba DATE: November 11, 2021 TIME: 12:44 PM documented in this encounterBethesda North Hospital08-19-2022 Miscellaneous Notes* Telephone Encounter - Debra Ruano Ma - 11/05/2021 8:15 AM EDT Surgery has been scheduled as requested. * Telephone Encounter - Debra Ruano Ma - 11/03/2021 10:54 AM EDT Surgical request completed for right robotic assisted total knee arthroplasty at [facility] [place] on12/01/2021. Patient may be same day discharge. CT scan scheduled 11/12/2021. Email sent to [employer] for equipment request. Post op appointments have been scheduled and mailed to patient. documented in this encounterBethesda North Hospital08-15-2022 History of Present illness Narrative* Miguel Laguna MD - 11/01/2021 8:43 AM EDT CONSULT ORTHOPAEDIC: KNEE PRIMARY CARE PHYSICIAN: Estefania Guardado MD REFERRING PROVIDER: SELF ASSESSMENT & PLAN Impression: Right Knee Moderate Degenerative Osteoarthritis, Post-Traumatic Ruddy Ruvalcaba has radiograph and physical exam evidence of degenerative joint disease and wishesto pursue surgery. This patient appears to have [...] following criteria for CT: Preoperative planning for Sun robotic assistance CONSULTS: Patient does not require [...] 10 with minimal activity. The pain is constantand is located along the inside aspect and in the back. The pain is described as aching, severe, and sharp. Relieving factors include rest. There is no specific incident that brought about this pain. Ruddy Ruvalcaba has no additional complaints. FUNCTIONAL STATUS: Participate in moderate recreational activities, such as golf, bowling, dancing,doubles tennis, or throwing a baseball or football [...] Months or Greater (meloxicam (Mobic)), Steroid Injections RightKnee Previous Surgery: Knee Arthroscopy REVIEW OF SYSTEMS: [...] no height and/or weight reading in the [id number] days, so the below BMI readings may [...] full extension, internal/external rotation adequate, and no painwith log roll Neurovascular Status: Sensation Intact, Moves foot and ankle up & down, and 2+ dorsalis pedis DATA: Diagnostic tests reviewed for today's visit: Right knee X-Ray: Medial joint space noted to have severe degenerative changes and Patellofemoral joint noted to have moderate degenerative changes The following conditions were addressed during the office visit today: Smoking - Cessation counseling SIGNATURE: Miguel Laguna MD PATIENT NAME: Ruddy Ruvalcaba DATE: November 01, 2021 TIME: 9:23 AM documented in this encounterBethesda North Hospital05-27-2022 History of Present illness Narrative* Martha Benavides APRN.CERAMIC COATER MACHINE - 08/13/2021 10:30 AM EDT Images from the original note were not included. Subjective HPI Ruddy Ruvalcaba is a 51 year old male who presents with right lower tooth pain and jaw swelling. This started yesterday. He made an appointment with [facility] but it is not for another week. He states the pain is "through the roof". He has taken ibuprofen for pain. He denies fever. He has had some associated right ear pain. Review of Systems Constitutional: Negative for chills and fever. HENT: Positive for ear pain. Negative for hearing loss. See HPI Skin: Negative for rash. BP 154/88 Pulse 84 Temp 36.4 C (97.6 F) Resp 18 Wt 107.5 kg (237 lb) SpO2 97% BMI 34.01kg/m PAST MEDICAL HISTORY Diagnosis Date Essential hypertension [...] every 4 hours - see your dentist TATIANA - Follow-up with your PCP in 3-5 days if symptoms have not improved or sooner if symptoms worsen - Discussed red flags and need for immediate medical evaluation if any occur. - Discussed supportive care treatment with fluids, rest and analgesia. - Discussed expected course of illness Martha Benavides APRN.CNP documented in this encounterBethesda North Hospital05-27-2022 Instructions* Patient Instructions* Martha Benavides APRN.CNP - 08/13/2021 10:27 AM EDT ASSESSMENT/PLAN: 1. Dental infection - ICD9: 522.4, ICD10: K04.7 - AMOXICILLIN 875 MG-POTASSIUM CLAVULANATE 125 MG TABLET - Ibuprofen 800 mg three times daily (every 8 hours) - Tylenol 1000 mg three times daily or 500 mg every 4 hours - see your dentist TATIANA - Follow-up with your PCP in 3-5 days if symptoms have not improved or sooner if symptoms worsen - Discussed red flags and need for immediate medical evaluation if any occur. - Discussed supportive care treatment with fluids, rest and analgesia. - Discussed expected course of illness Martha Benavides APRN.CNP TOOTHACHE: Your exam shows that [...] or root canal work may be needed tosave your tooth. If the problem is severe, your tooth may need to be pulled. Please return here right away if you have a fever over 101F, can t swallow, or develop severe swelling. documented in this encounterBethesda North Hospital07-14-2016 History of Past illness Narrative* Problem Noted Date Resolved Date Kidney stones 10/01/2015 10/20/2016 documented as of this encounter (statuses as of 08/13/2021) [address]2016 History of Past illness Narrative* Problem Noted Date Resolved Date Kidney stones 10/01/2015 10/20/2016 documented as of this encounter (statuses as of 10/27/2021) [address]2016 History of Past illness Narrative* Problem Noted Date Resolved Date Kidney stones 10/01/2015 10/20/2016 documented as of this encounter (statuses as of 11/01/2021) [address]2016 History of Past illness Narrative* Problem Noted Date Resolved Date Kidney stones 10/01/2015 10/20/2016 documented as of this encounter (statuses as of 11/05/2021) [address]2016 History of Past illness Narrative* Problem Noted Date Resolved Date Kidney stones 10/01/2015 10/20/2016 documented as of this encounter (statuses as of 11/11/2021) [address]2016 History of Past illness Narrative* Problem Noted Date Resolved Date Kidney stones 10/01/2015 10/20/2016 documented as of this encounter (statuses as of 11/11/2021) [address]2016 History of Past illness Narrative* Problem Noted Date Resolved Date Kidney stones 10/01/2015 10/20/2016 documented as of this encounter (statuses as of 11/15/2021) [address]2016 History of Past illness Narrative* Problem Noted Date Resolved Date Kidney stones 10/01/2015 10/20/2016 documented as of this encounter (statuses as of 11/16/2021) [address] History of Past illness Narrative* Problem Noted Date Resolved Date Kidney stones 10/01/2015 10/20/2016 documented as of this encounter (statuses as of 11/28/2021) [address] History of Past illness Narrative* Problem Noted Date Resolved Date Kidney stones 10/01/2015 10/20/2016 documented as of this encounter (statuses as of 11/29/2021) [address] History of Past illness Narrative* Problem Noted Date Resolved Date Kidney stones 10/01/2015 10/20/2016 documented as of this encounter (statuses as of 12/01/2021) [address] History of Past illness Narrative* Problem Noted Date Resolved Date Kidney stones 10/01/2015 10/20/2016 documented as of this encounter (statuses as of 12/02/2021) [address]2016 History of Past illness Narrative* Problem Noted Date Resolved Date Kidney stones 10/01/2015 10/20/2016 documented as of this encounter (statuses as of 12/03/2021) [address]2016 History of Past illness Narrative* Problem Noted Date Resolved Date Kidney stones 10/01/2015 10/20/2016 documented as of this encounter (statuses as of 12/03/2021) [address] History of Past illness Narrative* Problem Noted Date Resolved Date Kidney stones 10/01/2015 10/20/2016 documented as of this encounter (statuses as of 12/06/2021) [address] History of Past illness Narrative* Problem Noted Date Resolved Date Kidney stones 10/01/2015 10/20/2016 documented as of this encounter (statuses as of 12/06/2021) [address]2016 History of Past illness Narrative* Problem Noted Date Resolved Date Kidney stones 10/01/2015 10/20/2016 documented as of this encounter (statuses as of 12/07/2021) [address] History of Past illness Narrative* Problem Noted Date Resolved Date Kidney stones 10/01/2015 10/20/2016 documented as of this encounter (statuses as of 12/08/2021) [address] History of Past illness Narrative* Problem Noted Date Resolved Date Kidney stones 10/01/2015 10/20/2016 documented as of this encounter (statuses as of 12/08/2021) [address] History of Past illness Narrative* Problem Noted Date Resolved Date Kidney stones 10/01/2015 10/20/2016 documented as of this encounter (statuses as of 12/09/2021) [address] History of Past illness Narrative* Problem Noted Date Resolved Date Kidney stones 10/01/2015 10/20/2016 documented as of this encounter (statuses as of 12/10/2021) [address] History of Past illness Narrative* Problem Noted Date Resolved Date Kidney stones 10/01/2015 10/20/2016 documented as of this encounter (statuses as of 12/10/2021) [address] History of Past illness Narrative* Problem Noted Date Resolved Date Kidney stones 10/01/2015 10/20/2016 documented as of this encounter (statuses as of 12/12/2021) [address] History of Past illness Narrative* Problem Noted Date Resolved Date Kidney stones 10/01/2015 10/20/2016 documented as of this encounter (statuses as of 12/13/2021) [address] History of Past illness Narrative* Problem Noted Date Resolved Date Kidney stones 10/01/2015 10/20/2016 documented as of this encounter (statuses as of 12/15/2021) [address] History of Past illness Narrative* Problem Noted Date Resolved Date Kidney stones 10/01/2015 10/20/2016 documented as of this encounter (statuses as of 12/15/2021) [address]2016 History of Past illness Narrative* Problem Noted Date Resolved Date Kidney stones 10/01/2015 10/20/2016 documented as of this encounter (statuses as of 12/16/2021) [address] History of Past illness Narrative* Problem Noted Date Resolved Date Kidney stones 10/01/2015 10/20/2016 documented as of this encounter (statuses as of 12/17/2021) [address] History of Past illness Narrative* Problem Noted Date Resolved Date Kidney stones 10/01/2015 10/20/2016 documented as of this encounter (statuses as of 12/19/2021) [address] History of Past illness Narrative* Problem Noted Date Resolved Date Kidney stones 10/01/2015 10/20/2016 documented as of this encounter (statuses as of 12/24/2021) [address] History of Past illness Narrative* Problem Noted Date Resolved Date Kidney stones 10/01/2015 10/20/2016 documented as of this encounter (statuses as of 12/29/2021) [address]2016 History of Past illness Narrative* Problem Noted Date Resolved Date Kidney stones 10/01/2015 10/20/2016 documented as of this encounter (statuses as of 12/30/2021) [address]2016 History of Past illness Narrative* Problem Noted Date Resolved Date Kidney stones 10/01/2015 10/20/2016 documented as of this encounter (statuses as of 01/03/2022) [address]2016 History of Past illness Narrative* Problem Noted Date Resolved Date Kidney stones 10/01/2015 10/20/2016 documented as of this encounter (statuses as of 01/06/2022) [address]2016 History of Past illness Narrative* Problem Noted Date Resolved Date Kidney stones 10/01/2015 10/20/2016 documented as of this encounter (statuses as of 01/07/2022) [address]2016 History of Past illness Narrative* Problem Noted Date Resolved Date Kidney stones 10/01/2015 10/20/2016 documented as of this encounter (statuses as of 01/17/2022) [address] History of Past illness Narrative* Problem Noted Date Resolved Date Kidney stones 10/01/2015 10/20/2016 documented as of this encounter (statuses as of 01/19/2022) [address] History of Past illness Narrative* Problem Noted Date Resolved Date Kidney stones 10/01/2015 10/20/2016 documented as of this encounter (statuses as of 01/26/2022) [address] History of Past illness Narrative* Problem Noted Date Resolved Date Kidney stones 10/01/2015 10/20/2016 documented as of this encounter (statuses as of 01/27/2022) [address] History of Past illness Narrative* Problem Noted Date Resolved Date Kidney stones 10/01/2015 10/20/2016 documented as of this encounter (statuses as of 01/28/2022) [address] History of Past illness Narrative* Problem Noted Date Resolved Date Kidney stones 10/01/2015 10/20/2016 documented as of this encounter (statuses as of 02/07/2022) [address] History of Past illness Narrative* Problem Noted Date Resolved Date Kidney stones 10/01/2015 10/20/2016 documented as of this encounter (statuses as of 02/08/2022) [address] History of Past illness Narrative* Problem Noted Date Resolved Date Kidney stones 10/01/2015 10/20/2016 documented as of this encounter (statuses as of 02/14/2022) [address] History of Past illness Narrative* Problem Noted Date Resolved Date Kidney stones 10/01/2015 10/20/2016 documented as of this encounter (statuses as of 02/16/2022) [address] History of Past illness Narrative* Problem Noted Date Resolved Date Kidney stones 10/01/2015 10/20/2016 documented as of this encounter (statuses as of 02/22/2022) [address] History of Past illness Narrative* Problem Noted Date Resolved Date Kidney stones 10/01/2015 10/20/2016 documented as of this encounter (statuses as of 02/25/2022) [address]2016 History of Past illness Narrative* Problem Noted Date Resolved Date Kidney stones 10/01/2015 10/20/2016 documented as of this encounter (statuses as of 03/24/2022) [address] History of Past illness Narrative* Problem Noted Date Resolved Date Kidney stones 10/01/2015 10/20/2016 documented as of this encounter (statuses as of 03/25/2022) [address] History of Past illness Narrative* Problem Noted Date Resolved Date Kidney stones 10/01/2015 10/20/2016 documented as of this encounter (statuses as of 03/25/2022) [address] History of Past illness Narrative* Problem Noted Date Resolved Date Kidney stones 10/01/2015 10/20/2016 documented as of this encounter (statuses as of 04/07/2022) [address] History of Past illness Narrative* Problem Noted Date Resolved Date Kidney stones 10/01/2015 10/20/2016 documented as of this encounter (statuses as of 04/18/2022) [address] History of Past illness Narrative* Problem Noted Date Resolved Date Kidney stones 10/01/2015 10/20/2016 documented as of this encounter (statuses as of 04/26/2022) [address] History of Past illness Narrative* Problem Noted Date Resolved Date Kidney stones 10/01/2015 10/20/2016 documented as of this encounter (statuses as of 04/29/2022) [address] History of Past illness Narrative* Problem Noted Date Resolved Date Kidney stones 10/01/2015 10/20/2016 documented as of this encounter (statuses as of 05/06/2022) [address] History of Past illness Narrative* Problem Noted Date Resolved Date Kidney stones 10/01/2015 10/20/2016 documented as of this encounter (statuses as of 05/13/2022) [address] History of Past illness Narrative* Problem Noted Date Resolved Date Kidney stones 10/01/2015 10/20/2016 documented as of this encounter (statuses as of 05/20/2022) [address] History of Past illness Narrative* Problem Noted Date Resolved Date Kidney stones 10/01/2015 10/20/2016 documented as of this encounter (statuses as of 05/26/2022) [address] History of Past illness Narrative* Problem Noted Date Resolved Date Kidney stones 10/01/2015 10/20/2016 documented as of this encounter (statuses as of 05/26/2022) [address] History of Past illness Narrative* Problem Noted Date Resolved Date Kidney stones 10/01/2015 10/20/2016 documented as of this encounter (statuses as of 06/01/2022) [address] History of Past illness Narrative* Problem Noted Date Resolved Date Kidney stones 10/01/2015 10/20/2016 documented as of this encounter (statuses as of 06/02/2022) [address] History of Past illness Narrative* Problem Noted Date Resolved Date Kidney stones 10/01/2015 10/20/2016 documented as of this encounter (statuses as of 06/06/2022) [address] History of Past illness Narrative* Problem Noted Date Resolved Date Kidney stones 10/01/2015 10/20/2016 documented as of this encounter (statuses as of 06/07/2022) [address] History of Past illness Narrative* Problem Noted Date Resolved Date Kidney stones 10/01/2015 10/20/2016 documented as of this encounter (statuses as of 06/13/2022) [address] History of Past illness Narrative* Problem Noted Date Resolved Date Kidney stones 10/01/2015 10/20/2016 documented as of this encounter (statuses as of 06/16/2022) [address] History of Past illness Narrative* Problem Noted Date Resolved Date Kidney stones 10/01/2015 10/20/2016 documented as of this encounter (statuses as of 06/24/2022) [address] History of Past illness Narrative* Problem Noted Date Resolved Date Kidney stones 10/01/2015 10/20/2016 documented as of this encounter (statuses as of 07/05/2022) [address] History of Past illness Narrative* Problem Noted Date Resolved Date Kidney stones 10/01/2015 10/20/2016 documented as of this encounter (statuses as of 07/05/2022) [address] History of Past illness Narrative* Problem Noted Date Resolved Date Kidney stones 10/01/2015 10/20/2016 documented as of this encounter (statuses as of 07/13/2022) [address] History of Past illness Narrative* Problem Noted Date Resolved Date Kidney stones 10/01/2015 10/20/2016 documented as of this encounter (statuses as of 07/13/2022) [address] History of Past illness Narrative* Problem Noted Date Resolved Date Kidney stones 10/01/2015 10/20/2016 documented as of this encounter (statuses as of 07/20/2022) [address] History of Past illness Narrative* Problem Noted Date Resolved Date Kidney stones 10/01/2015 10/20/2016 documented as of this encounter (statuses as of 07/22/2022) [address] History of Past illness Narrative* Problem Noted Date Resolved Date Kidney stones 10/01/2015 10/20/2016 documented as of this encounter (statuses as of 07/27/2022) [address] History of Past illness Narrative* Problem Noted Date Resolved Date Kidney stones 10/01/2015 10/20/2016 documented as of this encounter (statuses as of 07/27/2022) [address] History of Past illness Narrative* Problem Noted Date Resolved Date Kidney stones 10/01/2015 10/20/2016 documented as of this encounter (statuses as of 07/28/2022) [address] History of Past illness Narrative* Problem Noted Date Resolved Date Kidney stones 10/01/2015 10/20/2016 documented as of this encounter (statuses as of 07/29/2022) [address] History of Past illness Narrative* Problem Noted Date Resolved Date Kidney stones 10/01/2015 10/20/2016 documented as of this encounter (statuses as of 08/16/2022) [address] History of Past illness Narrative* Problem Noted Date Resolved Date Kidney stones 10/01/2015 10/20/2016 documented as of this encounter (statuses as of 08/18/2022) [address] History of Past illness Narrative* Problem Noted Date Resolved Date Kidney stones 10/01/2015 10/20/2016 documented as of this encounter (statuses as of 08/19/2022) [address] History of Past illness Narrative* Problem Noted Date Resolved Date Kidney stones 10/01/2015 10/20/2016 documented as of this encounter (statuses as of 08/19/2022) [address] History of Past illness Narrative* Problem Noted Date Resolved Date Kidney stones 10/01/2015 10/20/2016 documented as of this encounter (statuses as of 08/19/2022) [address] History of Past illness Narrative* Problem Noted Date Resolved Date Kidney stones 10/01/2015 10/20/2016 documented as of this encounter (statuses as of 08/22/2022) [address] History of Past illness Narrative* Problem Noted Date Resolved Date Kidney stones 10/01/2015 10/20/2016 documented as of this encounter (statuses as of 08/24/2022) [address] History of Past illness Narrative* Problem Noted Date Resolved Date Kidney stones 10/01/2015 10/20/2016 documented as of this encounter (statuses as of 08/25/2022) [address] History of Past illness Narrative* Problem Noted Date Resolved Date Kidney stones 10/01/2015 10/20/2016 documented as of this encounter (statuses as of 08/25/2022) [address] History of Past illness Narrative* Problem Noted Date Resolved Date Kidney stones 10/01/2015 10/20/2016 documented as of this encounter (statuses as of 08/30/2022) [address] History of Past illness Narrative* Problem Noted Date Resolved Date Kidney stones 10/01/2015 10/20/2016 documented as of this encounter (statuses as of 09/02/2022) [address] History of Past illness Narrative* Problem Noted Date Resolved Date Kidney stones 10/01/2015 10/20/2016 documented as of this encounter (statuses as of 09/06/2022) [address] History of Past illness Narrative* Problem Noted Date Resolved Date Kidney stones 10/01/2015 10/20/2016 documented as of this encounter (statuses as of 09/14/2022) [address] History of Past illness Narrative* Problem Noted Date Resolved Date Kidney stones 10/01/2015 10/20/2016 documented as of this encounter (statuses as of 09/17/2022) [address] History of Past illness Narrative* Problem Noted Date Resolved Date Kidney stones 10/01/2015 10/20/2016 documented as of this encounter (statuses as of 09/24/2022) [address] History of Past illness Narrative* Problem Noted Date Diagnosed Date Resolved Date Kidney stones 10/01/2015 10/20/2016 documented as of this encounter (statuses as of 10/18/2022) [address] History of Past illness Narrative* Problem Noted Date Diagnosed Date Resolved Date Kidney stones 10/01/2015 10/20/2016 documented as of this encounter (statuses as of 10/25/2022) [address] History of Past illness Narrative* Problem Noted Date Diagnosed Date Resolved Date Kidney stones 10/01/2015 10/20/2016 documented as of this encounter (statuses as of 10/27/2022) [address] History of Past illness Narrative* Problem Noted Date Diagnosed Date Resolved Date Kidney stones 10/01/2015 10/20/2016 documented as of this encounter (statuses as of 10/31/2022) [address] History of Past illness Narrative* Problem Noted Date Diagnosed Date Resolved Date Kidney stones 10/01/2015 10/20/2016 documented as of this encounter (statuses as of 11/05/2022) [address] History of Past illness Narrative* Problem Noted Date Diagnosed Date Resolved Date Kidney stones 10/01/2015 10/20/2016 documented as of this encounter (statuses as of 11/10/2022) [address] History of Past illness Narrative* Problem Noted Date Diagnosed Date Resolved Date Kidney stones 10/01/2015 10/20/2016 documented as of this encounter (statuses as of 11/15/2022) [address] History of Past illness Narrative* Problem Noted Date Diagnosed Date Resolved Date Kidney stones 10/01/2015 10/20/2016 documented as of this encounter (statuses as of 11/18/2022) [address] History of Past illness Narrative* Problem Noted Date Diagnosed Date Resolved Date Kidney stones 10/01/2015 10/20/2016 documented as of this encounter (statuses as of 11/20/2022) [address] History of Past illness Narrative* Problem Noted Date Diagnosed Date Resolved Date Kidney stones 10/01/2015 10/20/2016 documented as of this encounter (statuses as of 11/30/2022) [address] History of Past illness Narrative* Problem Noted Date Diagnosed Date Resolved Date Kidney stones 10/01/2015 10/20/2016 documented as of this encounter (statuses as of 12/02/2022) [address] History of Past illness Narrative* Problem Noted Date Diagnosed Date Resolved Date Kidney stones 10/01/2015 10/20/2016 documented as of this encounter (statuses as of 12/06/2022) [address] History of Past illness Narrative* Problem Noted Date Diagnosed Date Resolved Date Kidney stones 10/01/2015 10/20/2016 documented as of this encounter (statuses as of 12/06/2022) [address] History of Past illness Narrative* Problem Noted Date Diagnosed Date Resolved Date Kidney stones 10/01/2015 10/20/2016 documented as of this encounter (statuses as of 12/12/2022) [address] History of Past illness Narrative* Problem Noted Date Diagnosed Date Resolved Date Kidney stones 10/01/2015 10/20/2016 documented as of this encounter (statuses as of 12/12/2022) [address] History of Past illness Narrative* Problem Noted Date Diagnosed Date Resolved Date Kidney stones 10/01/2015 10/20/2016 documented as of this encounter (statuses as of 12/23/2022) [address] History of Past illness Narrative* Problem Noted Date Diagnosed Date Resolved Date Kidney stones 10/01/2015 10/20/2016 documented as of this encounter (statuses as of 12/24/2022) [address] History of Past illness Narrative* Problem Noted Date Diagnosed Date Resolved Date Kidney stones 10/01/2015 10/20/2016 documented as of this encounter (statuses as of 12/28/2022) [address] History of Past illness Narrative* Problem Noted Date Diagnosed Date Resolved Date Kidney stones 10/01/2015 10/20/2016 documented as of this encounter (statuses as of 01/05/2023) [address] History of Past illness Narrative* Problem Noted Date Diagnosed Date Resolved Date Kidney stones 10/01/2015 10/20/2016 documented as of this encounter (statuses as of 01/05/2023) [address] History of Past illness Narrative* Problem Noted Date Diagnosed Date Resolved Date Kidney stones 10/01/2015 10/20/2016 documented as of this encounter (statuses as of 01/18/2023) [address] History of Past illness Narrative* Problem Noted Date Diagnosed Date Resolved Date Kidney stones 10/01/2015 10/20/2016 documented as of this encounter (statuses as of 01/22/2023) [address] History of Past illness Narrative* Problem Noted Date Diagnosed Date Resolved Date Kidney stones 10/01/2015 10/20/2016 documented as of this encounter (statuses as of 01/22/2023) [address] History of Past illness Narrative* Problem Noted Date Diagnosed Date Resolved Date Kidney stones 10/01/2015 10/20/2016 documented as of this encounter (statuses as of 01/22/2023) [address] History of Past illness Narrative* Problem Noted Date Diagnosed Date Resolved Date Kidney stones 10/01/2015 10/20/2016 documented as of this encounter (statuses as of 01/22/2023) [address] History of Past illness Narrative* Problem Noted Date Diagnosed Date Resolved Date Kidney stones 10/01/2015 10/20/2016 documented as of this encounter (statuses as of 01/22/2023) [address] History of Past illness Narrative* Problem Noted Date Diagnosed Date Resolved Date Kidney stones 10/01/2015 10/20/2016 documented as of this encounter (statuses as of 01/23/2023) [address] History of Past illness Narrative* Problem Noted Date Diagnosed Date Resolved Date Kidney stones 10/01/2015 10/20/2016 documented as of this encounter (statuses as of 01/26/2023) [address] History of Past illness Narrative* Problem Noted Date Diagnosed Date Resolved Date Kidney stones 10/01/2015 10/20/2016 documented as of this encounter (statuses as of 02/03/2023) [address] History of Past illness Narrative* Problem Noted Date Diagnosed Date Resolved Date Kidney stones 10/01/2015 10/20/2016 documented as of this encounter (statuses as of 03/10/2023) [address] History of Past illness Narrative* Problem Noted Date Diagnosed Date Resolved Date Kidney stones 10/01/2015 10/20/2016 documented as of this encounter (statuses as of 04/21/2023) [address] History of Past illness Narrative* Problem Noted Date Diagnosed Date Resolved Date Kidney stones 10/01/2015 10/20/2016 documented as of this encounter (statuses as of 04/28/2023) [address] History of Past illness Narrative* Problem Noted Date Diagnosed Date Resolved Date Kidney stones 10/01/2015 10/20/2016 documented as of this encounter (statuses as of 04/28/2023) [address] History of Past illness Narrative* Problem Noted Date Diagnosed Date Resolved Date Kidney stones 10/01/2015 10/20/2016 documented as of this encounter (statuses as of 05/08/2023) [address] History of Past illness Narrative* Problem Noted Date Diagnosed Date Resolved Date Kidney stones 10/01/2015 10/20/2016 documented as of this encounter (statuses as of 05/10/2023) [address] History of Past illness Narrative* Problem Noted Date Diagnosed Date Resolved Date Kidney stones 10/01/2015 10/20/2016 documented as of this encounter (statuses as of 05/17/2023) [address] History of Past illness Narrative* Problem Noted Date Diagnosed Date Resolved Date Kidney stones 10/01/2015 10/20/2016 documented as of this encounter (statuses as of 05/19/2023) [address] History of Past illness Narrative* Problem Noted Date Diagnosed Date Resolved Date Kidney stones 10/01/2015 10/20/2016 documented as of this encounter (statuses as of 05/19/2023) [address] History of Past illness Narrative* Problem Noted Date Diagnosed Date Resolved Date Kidney stones 10/01/2015 10/20/2016 documented as of this encounter (statuses as of 05/26/2023) [address] History of Past illness Narrative* Problem Noted Date Diagnosed Date Resolved Date Kidney stones 10/01/2015 10/20/2016 documented as of this encounter (statuses as of 05/26/2023) [address] History of Past illness Narrative* Problem Noted Date Diagnosed Date Resolved Date Kidney stones 10/01/2015 10/20/2016 documented as of this encounter (statuses as of 05/26/2023) [address] History of Past illness Narrative* Problem Noted Date Diagnosed Date Resolved Date Kidney stones 10/01/2015 10/20/2016 documented as of this encounter (statuses as of 06/01/2023) [address] History of Past illness Narrative* Problem Noted Date Diagnosed Date Resolved Date Kidney stones 10/01/2015 10/20/2016 documented as of this encounter (statuses as of 06/01/2023) [address] History of Past illness Narrative* Problem Noted Date Diagnosed Date Resolved Date Kidney stones 10/01/2015 10/20/2016 documented as of this encounter (statuses as of 06/02/2023) [address] History of Past illness Narrative* Problem Noted Date Diagnosed Date Resolved Date Kidney stones 10/01/2015 10/20/2016 documented as of this encounter (statuses as of 06/08/2023) [address] History of Past illness Narrative* Problem Noted Date Diagnosed Date Resolved Date Kidney stones 10/01/2015 10/20/2016 documented as of this encounter (statuses as of 06/09/2023) [address] History of Past illness Narrative* Problem Noted Date Diagnosed Date Resolved Date Kidney stones 10/01/2015 10/20/2016 documented as of this encounter (statuses as of 06/21/2023) [address] History of Past illness Narrative* Problem Noted Date Diagnosed Date Resolved Date Kidney stones 10/01/2015 10/20/2016 documented as of this encounter (statuses as of 06/29/2023) [address] History of Past illness Narrative* Problem Noted Date Diagnosed Date Resolved Date Kidney stones 10/01/2015 10/20/2016 documented as of this encounter (statuses as of 06/29/2023) [address] History of Past illness Narrative* Problem Noted Date Diagnosed Date Resolved Date Kidney stones 10/01/2015 10/20/2016 documented as of this encounter (statuses as of 07/06/2023) [facility] noteNo assessment information availableWDun[facility] Work Phone: Evaluation note* Diagnosis Dental infection- Primary Acute apical periodontitis of pulpal origin [facility] Right [facility] pain, unspecified chronicity- Primary [facility] Post-traumatic osteoarthritis of right knee- Primary Secondary localized osteoarthrosis, lower leg Chronic [facility] of right [facility] Post-traumatic osteoarthritis of right knee- Primary Secondary localized osteoarthrosis, lower leg Post-traumatic osteoarthritis of right knee Secondary localized osteoarthrosis, lower leg [facility] Post-traumatic osteoarthritis of right knee- Primary Secondary localized osteoarthrosis, lower leg Preop examination Preoperative examination, unspecified Post-traumatic osteoarthritis of right knee Secondary localized osteoarthrosis, lower leg [facility] Diagnosis Pre-operative examination- Primary Preoperative examination, unspecified Post-traumatic osteoarthritis of right knee Secondary localized osteoarthrosis, lower leg Essential hypertension Unspecified essential hypertension S/P insertion of spinal cord stimulator Headaches RSD (reflex sympathetic dystrophy) Reflex sympathetic dystrophy, unspecified Class 2 severe obesity due to excess calories with serious comorbidity and body mass index (BMI) of 35.0 to 35.9 in adult ([facility]) Post-traumatic osteoarthritis of right knee Secondary localized osteoarthrosis, lower leg [facility] Diagnosis Essential hypertension- Primary Unspecified essential hypertension Tobacco smoker, 1 pack of cigarettes or less per day Class 2 severe obesity due to excess calories with serious comorbidity and body mass index (BMI) of 35.0 to 35.9 in adult ([facility]) At risk for obstructive sleep apnea Post-traumatic osteoarthritis of right knee Secondary localized osteoarthrosis, lower leg [facility] Post-traumatic osteoarthritis of right knee Secondary localized osteoarthrosis, lower leg Preop examination Preoperative examination, unspecified Post-traumatic osteoarthritis of right knee Secondary localized osteoarthrosis, lower leg [facility] Diagnosis S/P total knee arthroplasty, right [facility] Diagnosis Status post total knee replacement, unspecified laterality- Primary [facility] Diagnosis Post-traumatic osteoarthritis of right knee- Primary Secondary localized osteoarthrosis, lower leg Status post total right knee replacement [facility] Diagnosis Essential hypertension- Primary Unspecified essential hypertension Urinary frequency Tobacco smoker, 1 pack of cigarettes or less per day [facility] Diagnosis S/P total knee arthroplasty, right [facility] S/P total knee arthroplasty, right [facility] Essential hypertension Unspecified essential hypertension [facility] Diagnosis Status post knee replacement, unspecified laterality- Primary [facility] Diagnosis S/P total knee arthroplasty, right [facility] Diagnosis Status post knee replacement, unspecified laterality- Primary [facility] Diagnosis S/P total knee arthroplasty, right [facility] Diagnosis S/P total knee arthroplasty, right documented in this encounter [facility] note* Diagnosis Status post knee replacement, unspecified laterality- Primary documented in this encounter [facility] note* Diagnosis S/P total knee arthroplasty, right documented in this encounter [facility] note* Diagnosis Hyperlipidemia, mixed- Primary Mixed hyperlipidemia documented in this encounter [facility] note* Diagnosis S/P total knee arthroplasty, right documented in this encounter [facility] note* Diagnosis Status post total right knee replacement- Primary documented in this encounter [facility] note* Diagnosis Status post total right knee replacement- Primary documented in this encounter [facility] note* Diagnosis Status post total right knee replacement- Primary documented in this encounter [facility] note* Diagnosis Post-op pain- Primary Other acute postoperative pain documented in this encounter [facility] note* Diagnosis RSD (reflex sympathetic dystrophy) Reflex sympathetic dystrophy, unspecified documented in this encounter [facility] note* Diagnosis Hyperlipidemia, mixed- Primary Mixed hyperlipidemia documented in this encounter [facility] note* Diagnosis Post-op pain Other acute postoperative pain documented in this encounter [facility] note* Diagnosis Post-op pain Other acute postoperative pain documented in this encounter [facility] note* Diagnosis Post-op pain Other acute postoperative pain documented in this encounter [facility] note* Diagnosis Post-op pain Other acute postoperative pain documented in this encounter [facility] note* Diagnosis Post-op pain Other acute postoperative pain documented in this encounter [facility] note* Diagnosis Post-op pain Other acute postoperative pain documented in this encounter [facility] note* Diagnosis Status post total right knee replacement- Primary documented in this encounter [facility] note* Diagnosis Post-op pain Other acute postoperative pain documented in this encounter [facility] note* Diagnosis Post-op pain- Primary Other acute postoperative pain Status post total right knee replacement documented in this encounter [facility] note* Diagnosis Post-op pain Other acute postoperative pain documented in this encounter [facility] note* Diagnosis Pain of right hip- Primary documented in this encounter [facility] note* Diagnosis Acute cough- Primary Viral bronchitis Acute bronchitis documented in this encounter [facility] note* Diagnosis Post-op pain Other acute [facility] Right maxillary sinusitis- Primary Headache, unspecified headache type documented in this encounter [facility] note* Diagnosis Essential hypertension Unspecified essential hypertension documented in this encounter [facility] note* Diagnosis Post-op pain Other acute postoperative pain documented in this encounter [facility] note* Diagnosis Uncontrolled hypertension- Primary Unspecified essential hypertension Severe headache Headache Blurry vision, bilateral Other specified visual disturbances Right flank pain Abdominal pain, unspecified site Nausea Nausea alone History of kidney stones Personal history of urinary calculi Tobacco smoker, 1 pack of cigarettes or less per day Obesity, Class I, BMI 30-34.9 Obesity, unspecified At risk for sleep apnea documented in this encounter [facility] note* Diagnosis Essential hypertension Unspecified essential hypertension documented in this encounter [facility] note* Diagnosis Severe headache Headache documented in this encounter [facility] note* Diagnosis Left flank pain- Primary Abdominal pain, unspecified site Bilateral renal stones Uncontrolled hypertension Unspecified essential hypertension History of kidney stones Personal history of urinary calculi documented in this encounter [facility] note* Diagnosis Calculus of other lower urinary tract location- Primary Left flank pain Abdominal pain, unspecified site Bilateral renal stones [facility] [facility]* Diagnosis Left flank pain Abdominal pain, unspecified site Bilateral renal stones documented in this encounter [facility] note* Diagnosis Left flank pain Abdominal pain, unspecified site Bilateral renal stones documented in this encounter [facility] note* Diagnosis Renal artery stenosis (HCC)- Primary Atherosclerosis of renal artery Essential hypertension Unspecified essential hypertension Anemia of renal disease Anemia in chronic kidney disease Stage 1 chronic kidney disease Vitamin D deficiency Unspecified vitamin D deficiency Hypertension, essential Unspecified essential hypertension Hyperuricemia Other abnormal blood chemistry Other proteinuria documented in this encounter [facility] note* Diagnosis Nephrolithiasis- Primary Calculus of kidney documented in this encounter [facility] note* Diagnosis Uncontrolled hypertension- Primary Unspecified essential hypertension Renal artery stenosis (HCC) Atherosclerosis of renal artery Left flank pain Abdominal pain, unspecified site Bilateral renal stones Tobacco smoker, 1 pack of cigarettes or less per day documented in this encounter [facility] note* Diagnosis Uncontrolled hypertension- Primary Unspecified essential hypertension Renal artery stenosis (HCC) Atherosclerosis of renal artery Left flank pain Abdominal pain, unspecified site documented in this encounter [facility] note* Diagnosis Essential hypertension Unspecified essential hypertension documented in this encounter [facility] note* Diagnosis Left flank pain Abdominal pain, unspecified site documented in this encounter [facility] note* Diagnosis Left flank pain Abdominal pain, unspecified site documented in this encounter [facility] note* Diagnosis Stage 1 chronic kidney disease- Primary Anemia of renal disease Anemia in chronic kidney disease Vitamin D deficiency Unspecified vitamin D deficiency Other proteinuria Essential hypertension Unspecified essential hypertension documented in this encounter [facility] note* Diagnosis 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 [facility] Diagnosis Vision changes- Primary Unspecified visual disturbance [facility]* Diagnosis Acute intractable headache, unspecified headache type- Primary documented in this encounter [facility] note* Diagnosis Uncontrolled hypertension- Primary Unspecified essential hypertension Chronic left flank pain Abdominal pain, unspecified site DDD (degenerative disc disease), lumbar Degeneration of lumbar or lumbosacral intervertebral disc DDD (degenerative disc disease), thoracic Degeneration of thoracic or thoracolumbar intervertebral disc Left flank pain Abdominal pain, unspecified site documented in this encounter [facility] note* Diagnosis Pain of right hip documented in this encounter [facility] note* Diagnosis Left flank pain Abdominal pain, unspecified site documented in this encounter [facility] note* Diagnosis Renal cyst Unspecified congenital cystic kidney disease documented in this encounter [facility] note* Diagnosis Uncontrolled hypertension- Primary Unspecified essential [...] Tobacco use disorder documented in this encounter [facility] note* Diagnosis Intractable headache, unspecified chronicity pattern, unspecified headache type Left flank pain Abdominal pain, unspecified site [facility]* Diagnosis Hypertension, unspecified type- Primary Mixed hyperlipidemia Obesity, Class I, BMI 30-34.9 Obesity, unspecified Nicotine use disorder, F17.2 Tobacco use disorder Class 2 severe obesity due to excess calories with serious comorbidity and body mass index (BMI) of 35.0 to 35.9 in adult RSD (reflex sympathetic dystrophy) Reflex sympathetic dystrophy, unspecified MONROY (dyspnea on exertion) Other dyspnea and respiratory abnormality [facility] Left leg pain- Primary Pain in limb Strain of left hamstring muscle, initial encounter Left hamstring injury, initial encounter Acute pain of left knee [facility]* Diagnosis Strain of left hamstring muscle, initial encounter [facility]* Diagnosis Strain of left hamstring muscle, initial encounter [facility]* Diagnosis Strain of left hamstring muscle, initial encounter [facility]* Diagnosis Post-traumatic osteoarthritis of right knee- Primary Secondary localized osteoarthrosis, lower leg [facility]* Diagnosis Strain of left hamstring muscle, initial encounter- Primary Left leg pain Pain in limb Chronic pain of left knee Pain in joint, lower leg Primary osteoarthritis of left hip Primary localized osteoarthrosis, pelvic region and thigh [facility]* Diagnosis Strain of left hamstring muscle, initial encounter- Primary Left hamstring injury, initial encounter Left leg pain Pain in limb Left knee pain, unspecified chronicity [facility]* Diagnosis RSD (reflex sympathetic dystrophy)- Primary Reflex sympathetic dystrophy, unspecified Chronic pain of left knee Pain in joint, lower leg [facility]* Diagnosis Strain of left hamstring muscle, initial encounter Left hamstring injury, initial encounter Left leg pain Pain in limb Left knee pain, unspecified chronicity [facility]* Diagnosis Post-traumatic osteoarthritis of left knee- Primary Secondary localized osteoarthrosis, lower leg Chronic pain of left knee Pain in joint, lower leg Failure of total knee replacement, initial encounter ([facility]) [facility]HCC[facility] Strain of left hamstring muscle, initial encounter Left hamstring injury, initial encounter Left leg pain Pain in limb Left knee pain, unspecified chronicity [facility]* Diagnosis RSD (reflex sympathetic dystrophy)- Primary Reflex sympathetic dystrophy, unspecified Chronic pain of left knee Pain in joint, lower leg [facility]* Diagnosis Strain of left hamstring muscle, initial encounter Left hamstring injury, initial encounter Left leg pain Pain in limb Left knee pain, unspecified chronicity [facility]* Diagnosis Strain of left hamstring muscle, initial encounter Left hamstring injury, initial encounter Left leg pain Pain in limb Left knee pain, unspecified chronicity [facility]* Diagnosis Post-traumatic osteoarthritis of right knee- Primary Secondary localized osteoarthrosis, lower leg Left knee pain, unspecified chronicity Strain of left hamstring muscle, initial encounter Left leg pain Pain in limb RSD (reflex sympathetic dystrophy) Reflex sympathetic dystrophy, unspecified Hypertension, essential Unspecified essential hypertension [facility]* Diagnosis Strain of left hamstring muscle, initial encounter Left hamstring injury, initial encounter Left leg pain Pain in limb Left knee pain, unspecified chronicity [facility]* Diagnosis Strain of left hamstring muscle, initial encounter Left hamstring injury, initial encounter Left leg pain Pain in limb Left knee pain, unspecified chronicity [facility]* Diagnosis Post-traumatic osteoarthritis of left knee- Primary Secondary localized osteoarthrosis, lower leg Chronic pain of left knee Pain in joint, lower leg [facility]* Diagnosis Strain of left hamstring muscle, initial encounter Left hamstring injury, initial encounter Left leg pain Pain in limb Left knee pain, unspecified chronicity Post-traumatic osteoarthritis of left knee Secondary localized osteoarthrosis, lower leg Chronic pain of left knee Pain in joint, lower leg [facility]* Diagnosis Strain of left hamstring muscle, initial encounter Left hamstring injury, initial encounter Left leg pain Pain in limb Left knee pain, unspecified chronicity Post-traumatic osteoarthritis of left knee Secondary localized osteoarthrosis, lower leg Chronic pain of left knee Pain in joint, lower leg [facility]* Diagnosis Strain of left hamstring muscle, initial encounter Left hamstring injury, initial encounter Left leg pain Pain in limb Left knee pain, unspecified chronicity Post-traumatic osteoarthritis of left knee Secondary localized osteoarthrosis, lower leg Chronic pain of left knee Pain in joint, lower leg [facility] Diagnosis Pre-operative examination- Primary Preoperative examination, unspecified Post-traumatic osteoarthritis of left knee Secondary localized osteoarthrosis, lower leg Chronic pain of left knee Pain in joint, lower leg [facility]* Diagnosis Chronic pain of left knee Pain in joint, lower leg Post-traumatic osteoarthritis of left knee Secondary localized osteoarthrosis, lower leg Chronic pain of left knee Pain in joint, lower leg [facility] this [facility]* Diagnosis Strain of left hamstring muscle, initial encounter Left hamstring injury, initial encounter Left leg pain Pain in limb Left knee pain, unspecified chronicity Post-traumatic osteoarthritis of left knee Secondary localized osteoarthrosis, lower leg Chronic pain of left knee Pain in joint, lower leg [facility]* Diagnosis MONROY (dyspnea on exertion) Other dyspnea and respiratory abnormality Post-traumatic osteoarthritis of left knee Secondary localized osteoarthrosis, lower leg Chronic pain of left knee Pain in joint, lower leg documented [facility]* Diagnosis MONROY (dyspnea on exertion) Other dyspnea and respiratory abnormality Post-traumatic osteoarthritis of left knee Secondary localized osteoarthrosis, lower leg Chronic pain of left knee Pain in joint, lower leg [facility] Diagnosis S/P total knee arthroplasty, left [facility] Diagnosis S/P total knee arthroplasty, left [facility] Diagnosis S/P total knee arthroplasty, left [facility] Diagnosis Chronic pain of left knee- Primary Pain in joint, lower leg Post-traumatic osteoarthritis of left knee Secondary localized osteoarthrosis, lower leg [facility] Diagnosis Status post left knee replacement- Primary Neuropathy Mononeuritis of unspecified site Nerve pain Neuralgia, neuritis, and radiculitis, unspecified [facility]* Diagnosis Nerve pain- Primary Neuralgia, neuritis, and radiculitis, unspecified S/P total knee arthroplasty, left [facility] Diagnosis S/P total knee arthroplasty, left [facility] Diagnosis Pre-operative examination- Primary Preoperative examination, unspecified Post-traumatic osteoarthritis of right knee Secondary localized osteoarthrosis, lower leg Essential hypertension Unspecified essential hypertension S/P insertion of spinal cord stimulator Headaches RSD (reflex sympathetic dystrophy) Reflex sympathetic dystrophy, unspecified Class 2 severe obesity due to excess calories with serious comorbidity and body mass index (BMI) of 35.0 to 35.9 in adult ([facility]) Pre-operative examination- Primary Preoperative examination, unspecified Hypertension, essential Unspecified essential hypertension Mixed hyperlipidemia MONROY (dyspnea on exertion) Other dyspnea and respiratory abnormality Tobacco smoker, 1 pack of cigarettes or less per day Status post knee replacement, unspecified laterality S/P insertion of spinal cord stimulator RSD (reflex sympathetic dystrophy) Reflex sympathetic dystrophy, unspecified Class 2 severe obesity due to excess calories with serious comorbidity and body mass index (BMI) of 38.0 to 38.9 in adult ([facility]) S/P total knee arthroplasty, left [facility]* Diagnosis Pre-operative examination- Primary Preoperative examination, unspecified Post-traumatic osteoarthritis of right knee Secondary localized osteoarthrosis, lower leg Essential hypertension Unspecified essential hypertension S/P insertion of spinal cord stimulator Headaches RSD (reflex sympathetic dystrophy) Reflex sympathetic dystrophy, unspecified Class 2 severe obesity due to excess calories with serious comorbidity and body mass index (BMI) of 35.0 to 35.9 in adult ([facility]) Pre-operative examination- Primary Preoperative examination, unspecified Hypertension, essential Unspecified essential hypertension Mixed hyperlipidemia [place]Y (dyspnea on exertion) Other dyspnea and respiratory abnormality Tobacco smoker, 1 pack of cigarettes or less per day Status post knee replacement, unspecified laterality S/P insertion of spinal cord stimulator RSD (reflex sympathetic dystrophy) Reflex sympathetic dystrophy, unspecified Class 2 severe obesity due to excess calories with serious comorbidity and body mass index (BMI) of 38.0 to 38.9 in adult ([facility]) Post-traumatic osteoarthritis of left knee- Primary Secondary localized osteoarthrosis, lower leg [facility] Diagnosis Pre-operative examination- Primary Preoperative examination, unspecified Post-traumatic osteoarthritis of right knee Secondary localized osteoarthrosis, lower leg Essential hypertension Unspecified essential hypertension S/P insertion of spinal cord stimulator Headaches RSD (reflex sympathetic dystrophy) Reflex sympathetic dystrophy, unspecified Class 2 severe obesity due to excess calories with serious comorbidity and body mass index (BMI) of 35.0 to 35.9 in adult ([facility]) Pre-operative examination- Primary Preoperative examination, unspecified Hypertension, essential Unspecified essential hypertension Mixed hyperlipidemia [place]Y (dyspnea on exertion) Other dyspnea and respiratory abnormality Tobacco smoker, 1 pack of cigarettes or less per day Status post knee replacement, unspecified laterality S/P insertion of spinal cord stimulator RSD (reflex sympathetic dystrophy) Reflex sympathetic dystrophy, unspecified Class 2 severe obesity due to excess calories with serious comorbidity and body mass index (BMI) of 38.0 to 38.9 in adult ([facility]) Pain due to total left knee replacement, initial encounter ([facility])- Primary S/P total knee arthroplasty, left documented in this encounter [facility] note* Diagnosis Pre-operative examination- Primary Preoperative examination, unspecified Post-traumatic osteoarthritis of right knee Secondary localized osteoarthrosis, lower leg Essential hypertension Unspecified essential hypertension S/P insertion of spinal cord stimulator Headaches RSD (reflex sympathetic dystrophy) Reflex sympathetic dystrophy, unspecified Class 2 severe obesity due to excess calories with serious comorbidity and body mass index (BMI) of 35.0 to 35.9 in adult ([facility]) Pre-operative examination- Primary Preoperative examination, unspecified Hypertension, essential Unspecified essential hypertension Mixed hyperlipidemia [place]Y (dyspnea on exertion) Other dyspnea and respiratory abnormality Tobacco smoker, 1 pack of cigarettes or less per day Status post knee replacement, unspecified laterality S/P insertion of spinal cord stimulator RSD (reflex sympathetic dystrophy) Reflex sympathetic dystrophy, unspecified Class 2 severe obesity due to excess calories with serious comorbidity and body mass index (BMI) of 38.0 to 38.9 in adult ([facility]) S/P total knee arthroplasty, left documented in this encounter [facility] note* Diagnosis Pre-operative examination- Primary Preoperative examination, unspecified Post-traumatic osteoarthritis of right knee Secondary localized osteoarthrosis, lower leg Essential hypertension Unspecified essential hypertension S/P insertion of spinal cord stimulator Headaches RSD (reflex sympathetic dystrophy) Reflex sympathetic dystrophy, unspecified Class 2 severe obesity due to excess calories with serious comorbidity and body mass index (BMI) of 35.0 to 35.9 in adult ([facility]) Pre-operative examination- Primary Preoperative examination, unspecified Hypertension, essential Unspecified essential hypertension Mixed hyperlipidemia [place]Y (dyspnea on exertion) Other dyspnea and respiratory abnormality Tobacco smoker, 1 pack of cigarettes or less per day Status post knee replacement, unspecified laterality S/P insertion of spinal cord stimulator RSD (reflex sympathetic dystrophy) Reflex sympathetic dystrophy, unspecified Class 2 severe obesity due to excess calories with serious comorbidity and body mass index (BMI) of 38.0 to 38.9 in adult ([facility]) Status post left knee replacement- Primary documented in this encounter [facility] note* Diagnosis Pre-operative examination- Primary Preoperative examination, unspecified Post-traumatic osteoarthritis of right knee Secondary localized osteoarthrosis, lower leg Essential hypertension Unspecified essential hypertension S/P insertion of spinal cord stimulator Headaches RSD (reflex sympathetic dystrophy) Reflex sympathetic dystrophy, unspecified Class 2 severe obesity due to excess calories with serious comorbidity and body mass index (BMI) of 35.0 to 35.9 in adult ([facility]) Pre-operative examination- Primary Preoperative examination, unspecified Hypertension, essential Unspecified essential hypertension Mixed hyperlipidemia [place]ROY (dyspnea on exertion) Other dyspnea and respiratory abnormality Tobacco smoker, 1 pack of cigarettes or less per day Status post knee replacement, unspecified laterality S/P insertion of spinal cord stimulator RSD (reflex sympathetic dystrophy) Reflex sympathetic dystrophy, unspecified Class 2 severe obesity due to excess calories with serious comorbidity and body mass index (BMI) of 38.0 to 38.9 in adult ([facility]) S/P total knee arthroplasty, left documented in this encounter [facility] note* Diagnosis Pre-operative examination- Primary Preoperative examination, unspecified Post-traumatic osteoarthritis of right knee Secondary localized osteoarthrosis, lower leg Essential hypertension Unspecified essential hypertension S/P insertion of spinal cord stimulator Headaches RSD (reflex sympathetic dystrophy) Reflex sympathetic dystrophy, unspecified Class 2 severe obesity due to excess calories with serious comorbidity and body mass index (BMI) of 35.0 to 35.9 in adult ([facility]) Pre-operative examination- Primary Preoperative examination, unspecified Hypertension, essential Unspecified essential hypertension Mixed hyperlipidemia [place]Y (dyspnea on exertion) Other dyspnea and respiratory abnormality Tobacco smoker, 1 pack of cigarettes or less per day Status post knee replacement, unspecified laterality S/P insertion of spinal cord stimulator RSD (reflex sympathetic dystrophy) Reflex sympathetic dystrophy, unspecified Class 2 severe obesity due to excess calories with serious comorbidity and body mass index (BMI) of 38.0 to 38.9 in adult ([facility]) Chronic pain of left knee Pain in joint, lower leg documented in this encounter [facility] note* Diagnosis Pre-operative examination- Primary Preoperative examination, unspecified Post-traumatic osteoarthritis of right knee Secondary localized osteoarthrosis, lower leg Essential hypertension Unspecified essential hypertension S/P insertion of spinal cord stimulator Headaches RSD (reflex sympathetic dystrophy) Reflex sympathetic dystrophy, unspecified Class 2 severe obesity due to excess calories with serious comorbidity and body mass index (BMI) of 35.0 to 35.9 in adult ([facility]) Pre-operative examination- Primary Preoperative examination, unspecified Hypertension, essential Unspecified essential hypertension Mixed hyperlipidemia [place]Y (dyspnea on exertion) Other dyspnea and respiratory abnormality Tobacco smoker, 1 pack of cigarettes or less per day Status post knee replacement, unspecified laterality S/P insertion of spinal cord stimulator RSD (reflex sympathetic dystrophy) Reflex sympathetic dystrophy, unspecified Class 2 severe obesity due to excess calories with serious comorbidity and body mass index (BMI) of 38.0 to 38.9 in adult ([facility]) Status post total left knee replacement- Primary documented in this encounter [facility] note* Diagnosis Pre-operative examination- Primary Preoperative examination, unspecified Post-traumatic osteoarthritis of right knee Secondary localized osteoarthrosis, lower leg Essential hypertension Unspecified essential hypertension S/P insertion of spinal cord stimulator Headaches RSD (reflex sympathetic dystrophy) Reflex sympathetic dystrophy, unspecified Class 2 severe obesity due to excess calories with serious comorbidity and body mass index (BMI) of 35.0 to 35.9 in adult ([facility]) Pre-operative examination- Primary Preoperative examination, unspecified Hypertension, essential Unspecified essential hypertension Mixed hyperlipidemia [place]Y (dyspnea on exertion) Other dyspnea and respiratory abnormality Tobacco smoker, 1 pack of cigarettes or less per day Status post knee replacement, unspecified laterality S/P insertion of spinal cord stimulator RSD (reflex sympathetic dystrophy) Reflex sympathetic dystrophy, unspecified Class 2 severe obesity due to excess calories with serious comorbidity and body mass index (BMI) of 38.0 to 38.9 in adult ([facility]) Status post total left knee replacement- Primary documented in this encounter [facility] note* Diagnosis Pre-operative examination- Primary Preoperative examination, unspecified Post-traumatic osteoarthritis of right knee Secondary localized osteoarthrosis, lower leg Essential hypertension Unspecified essential hypertension S/P insertion of spinal cord stimulator Headaches RSD (reflex sympathetic dystrophy) Reflex sympathetic dystrophy, unspecified Class 2 severe obesity due to excess calories with serious comorbidity and body mass index (BMI) of 35.0 to 35.9 in adult ([facility]) Pre-operative examination- Primary Preoperative examination, unspecified Hypertension, essential Unspecified essential hypertension Mixed hyperlipidemia MONROY (dyspnea on exertion) Other dyspnea and respiratory abnormality Tobacco smoker, 1 pack of cigarettes or less per day Status post knee replacement, unspecified laterality S/P insertion of spinal cord stimulator RSD (reflex sympathetic dystrophy) Reflex sympathetic dystrophy, unspecified Class 2 severe obesity due to excess calories with serious comorbidity and body mass index (BMI) of 38.0 to 38.9 in adult ([facility]) Status post total left knee replacement documented in this encounter [facility] note* Diagnosis Pre-operative examination- Primary Preoperative examination, unspecified Post-traumatic osteoarthritis of right knee Secondary localized osteoarthrosis, lower leg Essential hypertension Unspecified essential hypertension S/P insertion of spinal cord stimulator Headaches RSD (reflex sympathetic dystrophy) Reflex sympathetic dystrophy, unspecified Class 2 severe obesity due to excess calories with serious comorbidity and body mass index (BMI) of 35.0 to 35.9 in adult ([facility]) Pre-operative examination- Primary Preoperative examination, unspecified Hypertension, essential Unspecified essential hypertension Mixed hyperlipidemia MONROY (dyspnea on exertion) Other dyspnea and respiratory abnormality Tobacco smoker, 1 pack of cigarettes or less per day Status post knee replacement, unspecified laterality S/P insertion of spinal cord stimulator RSD (reflex sympathetic dystrophy) Reflex sympathetic dystrophy, unspecified Class 2 severe obesity due to excess calories with serious comorbidity and body mass index (BMI) of 38.0 to 38.9 in adult ([facility]) Post-traumatic osteoarthritis of left knee- Primary Secondary localized osteoarthrosis, lower leg documented in this encounter [facility] note* Diagnosis Pre-operative examination- Primary Preoperative examination, unspecified Post-traumatic osteoarthritis of right knee Secondary localized osteoarthrosis, lower leg Essential hypertension Unspecified essential hypertension S/P insertion of spinal cord stimulator Headaches RSD (reflex sympathetic dystrophy) Reflex sympathetic dystrophy, unspecified Class 2 severe obesity due to excess calories with serious comorbidity and body mass index (BMI) of 35.0 to 35.9 in adult ([facility]) Left knee pain, unspecified chronicity Strain of left hamstring muscle, initial encounter Left leg pain Pain in limb Pre-operative examination- Primary Preoperative examination, unspecified Hypertension, essential Unspecified essential hypertension Mixed hyperlipidemia MONROY (dyspnea on exertion) Other dyspnea and respiratory abnormality Tobacco smoker, 1 pack of cigarettes or less per day Status post knee replacement, unspecified laterality S/P insertion of spinal cord stimulator RSD (reflex sympathetic dystrophy) Reflex sympathetic dystrophy, unspecified Class 2 severe obesity due to excess calories with serious comorbidity and body mass index (BMI) of 38.0 to 38.9 in adult ([facility]) documented in this encounter [facility] note* Diagnosis Pre-operative examination- Primary Preoperative examination, unspecified Post-traumatic osteoarthritis of right knee Secondary localized osteoarthrosis, lower leg Essential hypertension Unspecified essential hypertension S/P insertion of spinal cord stimulator Headaches RSD (reflex sympathetic dystrophy) Reflex sympathetic dystrophy, unspecified Class 2 severe obesity due to excess calories with serious comorbidity and body mass index (BMI) of 35.0 to 35.9 in adult ([facility]) Pre-operative examination- Primary Preoperative examination, unspecified Hypertension, essential Unspecified essential hypertension Mixed hyperlipidemia MONROY (dyspnea on exertion) Other dyspnea and respiratory abnormality Tobacco smoker, 1 pack of cigarettes or less per day Status post knee replacement, unspecified laterality S/P insertion of spinal cord stimulator RSD (reflex sympathetic dystrophy) Reflex sympathetic dystrophy, unspecified Class 2 severe obesity due to excess calories with serious comorbidity and body mass index (BMI) of 38.0 to 38.9 in adult ([facility]) S/P total knee arthroplasty, left documented in this encounter [facility] note* Diagnosis Pre-operative examination- Primary Preoperative examination, unspecified Post-traumatic osteoarthritis of right knee Secondary localized osteoarthrosis, lower leg Essential hypertension Unspecified essential hypertension S/P insertion of spinal cord stimulator Headaches RSD (reflex sympathetic dystrophy) Reflex sympathetic dystrophy, unspecified Class 2 severe obesity due to excess calories with serious comorbidity and body mass index (BMI) of 35.0 to 35.9 in adult ([facility]) Pre-operative examination- Primary Preoperative examination, unspecified Hypertension, essential Unspecified essential hypertension Mixed hyperlipidemia MONROY (dyspnea on exertion) Other dyspnea and respiratory abnormality Tobacco smoker, 1 pack of cigarettes or less per day Status post knee replacement, unspecified laterality S/P insertion of spinal cord stimulator RSD (reflex sympathetic dystrophy) Reflex sympathetic dystrophy, unspecified Class 2 severe obesity due to excess calories with serious comorbidity and body mass index (BMI) of 38.0 to 38.9 in adult ([facility]) S/P total knee arthroplasty, left documented in this encounter [facility] note* Diagnosis Pre-operative examination- Primary Preoperative examination, unspecified Post-traumatic osteoarthritis of right knee Secondary localized osteoarthrosis, lower leg Essential hypertension Unspecified essential hypertension S/P insertion of spinal cord stimulator Headaches RSD (reflex sympathetic dystrophy) Reflex sympathetic dystrophy, unspecified Class 2 severe obesity due to excess calories with serious comorbidity and body mass index (BMI) of 35.0 to 35.9 in adult ([facility]) Pre-operative examination- Primary Preoperative examination, unspecified Hypertension, essential Unspecified essential hypertension Mixed hyperlipidemia MONROY (dyspnea on exertion) Other dyspnea and respiratory abnormality Tobacco smoker, 1 pack of cigarettes or less per day Status post knee replacement, unspecified laterality S/P insertion of spinal cord stimulator RSD (reflex sympathetic dystrophy) Reflex sympathetic dystrophy, unspecified Class 2 severe obesity due to excess calories with serious comorbidity and body mass index (BMI) of 38.0 to 38.9 in adult ([facility]) Post-traumatic osteoarthritis of left knee- Primary Secondary localized osteoarthrosis, lower leg Status post knee replacement, unspecified laterality [facility]* Diagnosis Pre-operative examination- Primary Preoperative examination, unspecified Post-traumatic osteoarthritis of right knee Secondary localized osteoarthrosis, lower leg Essential hypertension Unspecified essential hypertension S/P insertion of spinal cord stimulator Headaches RSD (reflex sympathetic dystrophy) Reflex sympathetic dystrophy, unspecified Class 2 severe obesity due to excess calories with serious comorbidity and body mass index (BMI) of 35.0 to 35.9 in adult ([facility]) Pre-operative examination- Primary Preoperative examination, unspecified Hypertension, essential Unspecified essential hypertension Mixed hyperlipidemia [place]ROY (dyspnea on exertion) Other dyspnea and respiratory abnormality Tobacco smoker, 1 pack of cigarettes or less per day Status post knee replacement, unspecified laterality S/P insertion of spinal cord stimulator RSD (reflex sympathetic dystrophy) Reflex sympathetic dystrophy, unspecified Class 2 severe obesity due to excess calories with serious comorbidity and body mass index (BMI) of 38.0 to 38.9 in adult ([facility]) Status post total left knee replacement documented in this encounter [facility] note* Diagnosis Pre-operative examination- Primary Preoperative examination, unspecified Post-traumatic osteoarthritis of right knee Secondary localized osteoarthrosis, lower leg Essential hypertension Unspecified essential hypertension S/P insertion of spinal cord stimulator Headaches RSD (reflex sympathetic dystrophy) Reflex sympathetic dystrophy, unspecified Class 2 severe obesity due to excess calories with serious comorbidity and body mass index (BMI) of 35.0 to 35.9 in adult ([facility]) Acute cough Pre-operative examination- Primary Preoperative examination, unspecified Hypertension, essential Unspecified essential hypertension Mixed hyperlipidemia [place]Y (dyspnea on exertion) Other dyspnea and respiratory abnormality Tobacco smoker, 1 pack of cigarettes or less per day Status post knee replacement, unspecified laterality S/P insertion of spinal cord stimulator RSD (reflex sympathetic dystrophy) Reflex sympathetic dystrophy, unspecified Class 2 severe obesity due to excess calories with serious comorbidity and body mass index (BMI) of 38.0 to 38.9 in adult ([facility]) documented in this encounter [facility] note* Diagnosis Pre-operative examination- Primary Preoperative examination, unspecified Post-traumatic osteoarthritis of right knee Secondary localized osteoarthrosis, lower leg Essential hypertension Unspecified essential hypertension S/P insertion of spinal cord stimulator Headaches RSD (reflex sympathetic dystrophy) Reflex sympathetic dystrophy, unspecified Class 2 severe obesity due to excess calories with serious comorbidity and body mass index (BMI) of 35.0 to 35.9 in adult ([facility]) Pre-operative examination- Primary Preoperative examination, unspecified Hypertension, essential Unspecified essential hypertension Mixed hyperlipidemia [place]ROY (dyspnea on exertion) Other dyspnea and respiratory abnormality Tobacco smoker, 1 pack of cigarettes or less per day Status post knee replacement, unspecified laterality S/P insertion of spinal cord stimulator RSD (reflex sympathetic dystrophy) Reflex sympathetic dystrophy, unspecified Class 2 severe obesity due to excess calories with serious comorbidity and body mass index (BMI) of 38.0 to 38.9 in adult ([facility]) Post-traumatic osteoarthritis of left knee- Primary Secondary localized osteoarthrosis, lower leg Status post knee replacement, unspecified laterality documented in this encounter [facility] note* Diagnosis Pre-operative examination- Primary Preoperative examination, unspecified Post-traumatic osteoarthritis of right knee Secondary localized osteoarthrosis, lower leg Essential hypertension Unspecified essential hypertension S/P insertion of spinal cord stimulator Headaches RSD (reflex sympathetic dystrophy) Reflex sympathetic dystrophy, unspecified Class 2 severe obesity due to excess calories with serious comorbidity and body mass index (BMI) of 35.0 to 35.9 in adult ([facility]) Pre-operative examination- Primary Preoperative examination, unspecified Hypertension, essential Unspecified essential hypertension Mixed hyperlipidemia [place]Y (dyspnea on exertion) Other dyspnea and respiratory abnormality Tobacco smoker, 1 pack of cigarettes or less per day Status post knee replacement, unspecified laterality S/P insertion of spinal cord stimulator RSD (reflex sympathetic dystrophy) Reflex sympathetic dystrophy, unspecified Class 2 severe obesity due to excess calories with serious comorbidity and body mass index (BMI) of 38.0 to 38.9 in adult ([facility]) S/P total knee arthroplasty, left documented in this encounter [facility] note* Diagnosis Pre-operative examination- Primary Preoperative examination, unspecified Post-traumatic osteoarthritis of right knee Secondary localized osteoarthrosis, lower leg Essential hypertension Unspecified essential hypertension S/P insertion of spinal cord stimulator Headaches RSD (reflex sympathetic dystrophy) Reflex sympathetic dystrophy, unspecified Class 2 severe obesity due to excess calories with serious comorbidity and body mass index (BMI) of 35.0 to 35.9 in adult ([facility]) Pre-operative examination- Primary Preoperative examination, unspecified Hypertension, essential Unspecified essential hypertension Mixed hyperlipidemia [place]ROY (dyspnea on exertion) Other dyspnea and respiratory abnormality Tobacco smoker, 1 pack of cigarettes or less per day Status post knee replacement, unspecified laterality S/P insertion of spinal cord stimulator RSD (reflex sympathetic dystrophy) Reflex sympathetic dystrophy, unspecified Class 2 severe obesity due to excess calories with serious comorbidity and body mass index (BMI) of 38.0 to 38.9 in adult ([facility]) S/P total knee arthroplasty, left documented [facility]* Diagnosis Pre-operative examination- Primary Preoperative examination, unspecified Post-traumatic osteoarthritis of right knee Secondary localized osteoarthrosis, lower leg Essential hypertension Unspecified essential hypertension S/P insertion of spinal cord stimulator Headaches RSD (reflex sympathetic dystrophy) Reflex sympathetic dystrophy, unspecified Class 2 severe obesity due to excess calories with serious comorbidity and body mass index (BMI) of 35.0 to 35.9 in adult ([facility]) Pre-operative examination- Primary Preoperative examination, unspecified Hypertension, essential Unspecified essential hypertension Mixed hyperlipidemia [place]Y (dyspnea on exertion) Other dyspnea and respiratory abnormality Tobacco smoker, 1 pack of cigarettes or less per day Status post knee replacement, unspecified laterality S/P insertion of spinal cord stimulator RSD (reflex sympathetic dystrophy) Reflex sympathetic dystrophy, unspecified Class 2 severe obesity due to excess calories with serious comorbidity and body mass index (BMI) of 38.0 to 38.9 in adult ([facility]) S/P total knee arthroplasty, left documented [facility]* Diagnosis Pre-operative examination- Primary Preoperative examination, unspecified Post-traumatic osteoarthritis of right knee Secondary localized osteoarthrosis, lower leg Essential hypertension Unspecified essential hypertension S/P insertion of spinal cord stimulator Headaches RSD (reflex sympathetic dystrophy) Reflex sympathetic dystrophy, unspecified Class 2 severe obesity due to excess calories with serious comorbidity and body mass index (BMI) of 35.0 to 35.9 in adult ([facility]) Pre-operative examination- Primary Preoperative examination, unspecified Hypertension, essential Unspecified essential hypertension Mixed hyperlipidemia [place]ROY (dyspnea on exertion) Other dyspnea and respiratory abnormality Tobacco smoker, 1 pack of cigarettes or less per day Status post knee replacement, unspecified laterality S/P insertion of spinal cord stimulator RSD (reflex sympathetic dystrophy) Reflex sympathetic dystrophy, unspecified Class 2 severe obesity due to excess calories with serious comorbidity and body mass index (BMI) of 38.0 to 38.9 in adult ([facility]) S/P total knee arthroplasty, left documented in this encounter [facility] note* Diagnosis Pre-operative examination- Primary Preoperative examination, unspecified Post-traumatic osteoarthritis of right knee Secondary localized osteoarthrosis, lower leg Essential hypertension Unspecified essential hypertension S/P insertion of spinal cord stimulator Headaches RSD (reflex sympathetic dystrophy) Reflex sympathetic dystrophy, unspecified Class 2 severe obesity due to excess calories with serious comorbidity and body mass index (BMI) of 35.0 to 35.9 in adult ([facility]) Pre-operative examination- Primary Preoperative examination, unspecified Hypertension, essential Unspecified essential hypertension Mixed hyperlipidemia [place]Y (dyspnea on exertion) Other dyspnea and respiratory abnormality Tobacco smoker, 1 pack of cigarettes or less per day Status post knee replacement, unspecified laterality S/P insertion of spinal cord stimulator RSD (reflex sympathetic dystrophy) Reflex sympathetic dystrophy, unspecified Class 2 severe obesity due to excess calories with serious comorbidity and body mass index (BMI) of 38.0 to 38.9 in adult ([facility]) Pain due to total left knee replacement, sequela- Primary documented in this encounter [facility] note* Diagnosis Pre-operative examination- Primary Preoperative examination, unspecified Hypertension, essential Unspecified essential hypertension Mixed hyperlipidemia [place]ROY (dyspnea on exertion) Other dyspnea and respiratory abnormality Tobacco smoker, 1 pack of cigarettes or less per day Status post knee replacement, unspecified laterality S/P insertion of spinal cord stimulator RSD (reflex sympathetic dystrophy) Reflex sympathetic dystrophy, unspecified Class 2 severe obesity due to excess calories with serious comorbidity and body mass index (BMI) of 38.0 to 38.9 in adult ([facility]) Post-traumatic osteoarthritis of left knee Secondary localized osteoarthrosis, lower leg Chronic pain of left knee Pain in joint, lower leg * Assessment & Plan Note - Margie Barrera APRN.[employer] - 08/28/2023 10:29 AM EDT Associated Problem(s): MONROY (dyspnea on exertion) Assessment: pt had Lexiscan ordered 01/2023 by cardiology has not yet completed. Pt aware this needs completed and follow up with cardiology to proceed with surgery. Pt verbalized understanding. 02/03/2023 Dr. Munguia ASSESSMENT/PLAN: 1. Hypertension, unspecified type - ICD9: 401.9, ICD10: I10 (primary diagnosis) - Uncontrolled, but he does have several triggers including smoking, diet rich in deli meat, untreated reflex sympathetic dystrophy, possible sleep apnea, and obesity. I do not think he has secondaryhypertension, but I will order a workup for [...] be contributing to his elevated blood pressures. Moisés Munguia MD * Assessment & Plan Note - Margie Barrera APRN.CNP - 08/28/2023 10:27 AM EDT Associated Problem(s): Class 2 severe obesity due to excess calories with serious comorbidity and body mass index (BMI) of 38.0 to 38.9 in adult (HCC) Assessment: Body mass index is 38.17 kg/m . * Assessment & Plan Note - Margie Barrera APRN.CNP - 08/28/2023 10:17 AM EDT Associated Problem(s): S/P insertion of spinal cord stimulator Assessment: hx, still in place but not operating * Assessment & Plan Note - Margie Barrera APRN.CNP - 08/28/2023 10:02 AM EDT Associated Problem(s): S/P knee replacement Assessment: hx right TKA, still painful per pt * Assessment & Plan Note - Margie Barrera APRN.CNP - 08/28/2023 10:02 AM EDT Associated Problem(s): Tobacco smoker, 1 pack of cigarettes or less per day Assessment: 0.5ppd, denies asthma or COPD * Assessment & Plan Note - Margie Barrera APRN.CNP - 08/28/2023 9:59 AM EDT Associated Problem(s): Mixed hyperlipidemia Assessment: diet controlled * Assessment & Plan Note - Margie Barrera APRN.CNP - 08/28/2023 9:59 AM EDT Associated Problem(s): Hypertension, essential Assessment: sub-optimal control, requesting cardiology optimization appt along with completely Lexiscan previously ordered by Dr. Almeida 01/2023. Last 14 BP Last 14 Encounter BP Readings: Date: BP: 08/28/2023 142/88 07/10/2023 144/92 04/20/2023 162/100 02/03/2023 160/95 01/20/2023 168/108 12/29/2022 178/108 12/24/2022 182/102 12/15/2022 182/102 12/14/2022 197/115 11/29/2022 170/90 11/17/2022 194/102 11/07/2022 174/100 11/04/2022 200/104[[facility] notifie dof blood pressure- patient follows with PCP due to elevated blood pressure.[ 10/24/2022 148/74 * Assessment & Plan Note - Margie Barrera APRN.CNP - 08/28/2023 9:58 AM EDT Associated Problem(s): RSD (reflex sympathetic dystrophy) Assessment: hx, rx as needed documented in this encounter [facility] Discharge instructions Additional Instructions Get any [id number] nasal decongestant spray containing oxymetazoline or phenylephrine. For moderate-severe nosebleed: 1 - gather supplies: nasal decongestant spray (above), cotton ball, box of tissues, garbage can, old towel that you can wrap around your chest/neck (to catch blood) 2 - soak a cotton ball in the nasal spray 3 - blow your nose, get all blood and clots out, keep chin down to prevent blood from going back into throat and forming clots 4 - after blowing the last time, quickly spray 2 sprays of the nasal spray into the affected side and sniff it back, immediately followed by twisting the soaked cotton ball into the front of your nose and then hold pressure with your fingers. 5 - if bleeding controlled, leave cotton ball in place for at least 20 min before checking to see if the bleeding is controlled by removing the cotton ball. If not able to control bleeding, always welcome to return to the ER for help. [facility] Work Phone: Hospital Discharge instructions Additional Instructions Your blood count is stable. Follow-up with Dr. Esparza with gastroenterology within the next few days. Call for an appointment tomorrow. Return to the emergency department with increased rectal bleeding, new or worsening symptoms.[facility] Work Phone: Patient's home Plan of care note* Visit Details [...] as needed Completed SPO2 Description: Notify Dr. Laguna if pulse ox is <92% at rest. [...] home exercise program. [facility] [...] of sepsis Completed SPO2 Description: Notify Dr. Laguna if pulse ox is <92% at rest. [...] to call provider. [facility] Visit Details Visit Type -FINANCIAL OPERATIONS CONSULTANT ROUTINE Discipline -Physical Therapy Problems Problem Description [...] of sepsis Completed SPO2 Description: Notify Dr. Laguna if pulse ox is <92% at rest. [...] and heel slides x's 10 each. supine [id number]. seated heel slides x's 10 step flexion [...] to call provider. [facility] Visit Details Visit Type -FINANCIAL OPERATIONS CONSULTANT ROUTINE Discipline -Physical Therapy Problems Problem Description [...] to medication schedule. SPO2 Description: Notify Dr. [place] if pulse ox is <92% at rest. [...] to call provider. documented in this encounter [facility] home Plan of care note* Visit Details Visit Type -PT [facility] Discipline -Physical Therapy Problems Problem Description [...] 2 goals linked to scheduled/documen vance interventions PT Impaired gait Disciplines: PT 12/04/2021 [...] of sepsis Completed SPO2 Description: Notify Dr. Laguna if pulse ox is <92% at rest. [...] and written instructions. [facility] Visit Details Visit Type -PT SOC Discipline -Physical Therapy Problems Problem Description Start Date Status Goals Interve ntions PT Impaired muscle performance and/or ROM Disciplines: PT 09/22/2023 Active 1 goal linked to scheduled/documen vance intervention 1 goal intervention scheduled/document ed in this visit PT Impaired mobility Disciplines: PT 09/22/2023 Active 1 goal linked to scheduled/documen vance intervention 1 goal intervention scheduled/document ed in this visit PT Impaired gait Disciplines: PT 09/22/2023 Active 1 goal linked to scheduled/documen vance intervention 1 goal intervention scheduled/document ed in this visit PT Orthopedic Condition Disciplines: PT 09/22/2023 Active 1 goal linked to scheduled/documen vance intervention 2 goal interventions scheduled/document ed in this visit PT Learning Assessment Disciplines: PT 09/22/2023 Active 1 goal linked to scheduled/documen vance intervention 1 goal intervention scheduled/document ed in this visit Medication Education Disciplines: Skilled Services 09/22/2023 Active 1 goal linked to scheduled/documen vance intervention 1 goal intervention scheduled/document ed in this visit Sepsis Disciplines: Skilled Services 09/22/2023 Active 1 goal linked to scheduled/documen vance intervention 1 goal intervention scheduled/document ed in this visit Physician Specific Parameters Disciplines: Skilled Services 09/22/2023 Active 1 goal linked to scheduled/documen vance intervention 1 goal intervention scheduled/document ed in this visit Risk for Falls Disciplines: Skilled Services 09/22/2023 Active 1 goal linked to scheduled/documen vance intervention 1 goal intervention scheduled/document ed in this visit Pain Disciplines: Skilled Services 09/22/2023 Active 1 goal linked to scheduled/documen vance intervention 1 goal intervention scheduled/document ed in this visit Discharge Disciplines: Skilled Services 09/22/2023 Active 1 goal linked to scheduled/documen vance intervention 1 goal intervention scheduled/document ed in this visit Advance Directives Disciplines: Skilled Services 09/22/2023 Resolved on 09/22/2023 1 goal linked to scheduled/documen vance intervention 1 goal intervention scheduled/document ed in this visit High Risk Medications Disciplines: Skilled Services 09/22/2023 Active 1 goal linked to scheduled/documen vance intervention 3 goal interventions scheduled/document ed in this visit Goals Goal Associated Problem Outcome Goal Met? Visit Notes Improved Muscle Performance and/or ROM Description: Short term goal: Patient will demonstrate improved L knee ROM to 5-90 degress of AROM or greater, to be achieved by 10/07/23. PT Impaired muscle performance and/or ROM No Improved Transfers Description: Short term goal: Patient will demonstrate safe transfers to/from bed, chair and toilet independently, to be achieved by 09/30/23. PT Impaired mobility No Improved Gait Description: STG: Patient will demonstrate improved gait ability as evidenced by ambulation 150 feet with front wheeled walker with supervision, in order to access all areas of the home, to be achieved by 09/30/23. LTG: Patient will demonstrate improved gait ability as evidenced by ambulation 200 feet with LRAD independently with AD, to return to safe community ambulation, to be achieved by 10/07/23. PT Impaired gait No Manage Orthopedic Condition Description: Improve patient and/or caregiver understanding of post surgical and/or non-surgical orthopedic intervention management as evidenced by patient and/or caregiver able to verbalize, demonstrate, and teach back instruction, to be achieved by 10/07/23. PT Orthopedic Condition No Demonstrate understanding of education Description: Patient and/or caregiver will understand educational instruction to be achieved by 10/07/23. PT Learning Assessment No Patient/caregiver will demonstrate ability to obtain, store, identify and administer ordered medications, keep accurate medication list in home, and adhere to medication schedule Description: Patient/caregiver will demonstrate ability to obtain, store, identify and administer ordered medications, keep accurate medication list in home, and adhere to medication schedule by 11/20/23. Medication Education No Patient/caregiver will be able to identify and report symptoms of sepsis Description: Patient/caregiver will be able to identify signs/symptoms of sepsis infection and will verbalize actions to take if suspected by 11/20/23. Sepsis No Patient to maintain parameters within physician-specified ranges throughout certification period Physician Specific Parameters No Manage Risk for falls Description: Patient/caregiver will verbalize knowledge of individualized fall prevention strategies by 11/20/23. Risk for Falls No Manage Pain Description: Patient and/or caregiver will verbalize knowledge and understanding of appropriate techniques to control pain, including pain medication and non-pharmacological techniques. Patient will verbalize or demonstrate an acceptable level of pain as evidenced by pain of 2/10 or less at rest. To be achieved by 11/20/23. Pain No Manage discharge planning Description: Patient/caregiver will verbalize understanding of ongoing discharge plan provided related to disease management, arrangements for outpatient and/or community services, obtaining medications, supplies, and DME, as needed throughout certification period. Discharge No Patient/caregiver will make healthcare providers aware of and any changes to Advance Directives throughout certification period Advance Directives Completed Yes Goal met Patient/caregiver will teach back high risk medication side effect and precaution education Description: STG Patient/caregiver will verbalize understanding of high risk medication side effects and precautions to be achieved by 11/20/23. LTG Patient/caregiver will continue to verbalize understanding of high risk medication side effects and precautions throughout certification period. High Risk Medications No Interventions Intervention Associated Problem/Goal Status Variance Visit Notes Physical Therapy Therapeutic Exercises Problem:PT Impaired muscle performance and/or ROM Goal:Improved Muscle Performance and/or ROM Completed Developed, implemented, and instructed patient and/or caregiver on strengthening exercises: Ankle pumps, quad sets, gluteal squeez, heel slides and seated knee flexion all x 10 reps. Developed, implemented, and instructed patient and/or caregiver on range of motion exercises: left knee flexion. Instructed patient and/or caregiver to perform HEP three times a day. Physical Therapy Transfer Training Problem:PT Impaired mobility Goal:Improved Transfers Completed Transfer training and instruction to patient on safe transfers to and from chair with supervision and verbal, tactile and visual cues for sequencing extremities and to promote anterior weight shifting. Recommended the following adaptive equipment/durable medical equipment: walker. Physical Therapy Gait Training Problem:PT Impaired gait Goal:Improved Gait Completed Gait training and instruction to patient on safe ambulation with front wheeled walker for 30 feet with supervision, with verbal cues for corrections of gait deviations including increase BL step length, increase heel strike/toe off and to reduce reliance on BL LEs. Instruct on orthopedic precautions and weight bearing restrictions Description: Orthopedic precautions including left total knee: no crossing legs, no knee flexed over pillow at rest, no kneeling, no squatting and no twisting. Weight bearing restrictions include: WBAT of involved extremity. Problem:PT Orthopedic Condition Goal:Manage Orthopedic Condition Completed patient instructed on orthopedic precautions and weight bearing restrictions. Instruct on management of edema Problem:PT Orthopedic Condition Goal:Manage Orthopedic Condition Completed Instruct patient on management of edema including elevation above the level of the heart, ice and benefits of activity. Instruct and educate on knowledge deficits Problem:PT Learning Assessment Goal:Demonstrate understanding of education Completed patient verbalize and/or demonstrate understanding of physical therapy education including orthopedic condition management, weight bearing precautions, surgical precautions, pain management, fall prevention strategies, home safety, functional activity and home exercise program. Medication Education Description: Evaluate/instruct patient/caregiver on obtaining, [...] importance of keeping accurate medication list in home, need to take up-to-date medication list to all medical provider appointments, adhering to medication schedule, proper storage of medications and medication, route, dose, frequency, purpose, and side effects of medications. Risk of Sepsis Description: Patient is at risk for sepsis. Monitor closely for s/s of sepsis. Problem:Sepsis Goal:Patient/caregive r will be able to identify and report symptoms of sepsis Completed SPO2 Description: Notify Dr. Delgado if pulse ox is <92% at rest. Problem:Physician Specific Parameters Goal:Patient to maintain parameters within physician-specified ranges throughout certification period Completed Instruct on individual fall risk factors and strategies to prevent falls and injuries caused by falls. Problem:Risk for Falls Goal:Manage Risk for falls Completed Interventions implemented and instructions provided this visit to reduce risk of falls:Assistive devices to be used: FWW. Instruct on pain and instruct on strategies to control pain Problem:Pain Goal:Manage Pain Completed patient instructed on techniques to control pain including Pharmacological measures and Non-Pharmacological measures; rest, positioning/elevation, mobility/therapeutic exercise, use of DME/assistive devices and use of thermal modalities, apply ice to affected area. Instruct on ongoing discharge plan Problem:Discharge Goal:Manage [...] information on Healthcare DPOA & Living Will. Opioids- educated on high risk medication Problem:High Risk Medications Goal:Patient/caregive r will teach back high risk medication side effect and precaution education Completed patient educated on taking medication(s) as prescribed by provider. Do not stop medication or alter doses without speaking with your provider. Discuss medication effectiveness or side effect concerns with your provider and home care team. Only take opioids as prescribed, do not share your medications, and take proper precautions in storing and properly disposing of opioids once no longer needed. Possible side effects of opioid medication including sedation, decreased rate of breathing, and constipation. Report over sedation to prescribing provider and practice deep breathing techniques every hour while awake. Prevent constipation by increasing water and fiber intake, increasing activity as tolerated, and use stool softener(s) as prescribed. Antiplatelet- educated on high risk medication Problem:High Risk Medications Goal:Patient/caregive r will teach back high risk medication side effect and precaution education Completed patient educated on taking medication(s) as prescribed by provider. Do not stop medication or alter doses without speaking with your provider. Discuss medication effectiveness or side effect concerns with your provider and home care team. Discuss all medications you are taking, even [id number] medicines, with your provider and pharmacist since many drugs can interact with antiplatelet medications. If you forget to take a dose, DO NOT take a double dose. Take the missed dose as soon as possible on the same day. DO NOT take a double dose the next day to make up for the missed dose. Watch for signs of abnormal or excessive bleeding and bruising (refer to Bleeding Precautions education). Call your health care provider right away if you suspect something is wrong. Antibiotic- educated on high risk medication Problem:High Risk Medications Goal:Patient/caregive r will teach back high risk medication side effect and precaution education Completed patient educated on taking medication(s) as prescribed by provider. Do not stop medication or alter doses without speaking with your provider. Discuss medication effectiveness or side effect concerns with your provider and home care team. Take the full dispensed amount even if you start feeling better, as bacteria can become resistant to antibiotic treatment if you do not finish your prescription. Common side effects are upset stomach and diarrhea. Take your antibiotics with food unless otherwise indicated to help with indigestion. Taking an [id number]-gelrpmq probiotic or eating yogurt with live and active cultures three times a day can help prevent antibiotic-associated diarrhea. Call your provider immediately if you develop rashes or hives as this could be a delayed allergic reaction. Seek emergency treatment if you develop severe allergic reaction symptoms such as mouth or tongue swelling. [facility] Visit Details Visit Type -[employer]INE Discipline -Physical Therapy Problems Problem Description Start Date Status Goals Interve ntions PT Impaired muscle performance and/or ROM Disciplines: PT 09/22/2023 Active 1 goal linked to scheduled/document ed intervention 1 goal intervention scheduled/document ed in this visit PT Impaired gait Disciplines: PT 09/22/2023 Active 2 goals linked to scheduled/document ed interventions 2 goal interventions scheduled/document ed in this visit PT Orthopedic Condition Disciplines: PT 09/22/2023 Active 1 goal linked to scheduled/document ed intervention 3 goal interventions scheduled/document ed in this visit PT Learning Assessment Disciplines: PT 09/22/2023 Active 1 goal linked to scheduled/document ed intervention 1 goal intervention scheduled/document ed in this visit Medication Education Disciplines: Skilled Services 09/22/2023 Active 1 goal linked to scheduled/document ed intervention 1 goal intervention scheduled/document ed in this visit Sepsis Disciplines: Skilled Services 09/22/2023 Active 1 goal linked to scheduled/document ed intervention 1 goal intervention scheduled/document ed in this visit Physician Specific Parameters Disciplines: Skilled Services 09/22/2023 Active 1 goal linked to scheduled/document ed intervention 1 goal intervention scheduled/document ed in this visit Risk for Falls Disciplines: Skilled Services 09/22/2023 Active 1 goal linked to scheduled/document ed intervention 1 goal intervention scheduled/document ed in this visit Pain Disciplines: Skilled Services 09/22/2023 Active 1 goal linked to scheduled/document ed intervention 1 goal intervention scheduled/document ed in this visit Discharge Disciplines: Skilled Services 09/22/2023 Active 1 goal linked to scheduled/document ed intervention 2 goal interventions scheduled/document ed in this visit High Risk Medications Disciplines: Skilled Services 09/22/2023 Active 1 goal linked to scheduled/document ed intervention 3 goal interventions scheduled/document ed in this visit Goals Goal Associated Problem Outcome Goal Met? Visit Notes Improved Muscle Performance and/or ROM Description: Short term goal: Patient will demonstrate improved L knee ROM to 5-90 degress of AROM or greater, to be achieved by 10/07/23. PT Impaired muscle performance and/or ROM No Improved Stair Climbing Description: STG:: Patient will demonstrate improved stair negotiation as evidenced by ascend/descend 3 steps with railing with supervision, to be achieved by 09/30/23. LTG: Patient will demonstrate improved stair negotiation as evidenced by ascend/descend 14 steps with railing Independently to safely access all areas of the home, to be achieved by 10/07/23. PT Impaired gait No Improved Gait Description: STG: Patient will demonstrate improved gait ability as evidenced by ambulation 150 feet with front wheeled walker with supervision, in order to access all areas of the home, to be achieved by 09/30/23. LTG: Patient will demonstrate improved gait ability as evidenced by ambulation 200 feet with LRAD independently with AD, to return to safe community ambulation, to be achieved by 10/07/23. PT Impaired gait No Manage Orthopedic Condition Description: Improve patient and/or caregiver understanding of post surgical and/or non-surgical orthopedic intervention management as evidenced by patient and/or caregiver able to verbalize, demonstrate, and teach back instruction, to be achieved by 10/07/23. PT Orthopedic Condition No Demonstrate understanding of education Description: Patient and/or caregiver will understand educational instruction to be achieved by 10/07/23. PT Learning Assessment No Patient/caregiver will demonstrate ability to obtain, store, identify and administer ordered medications, keep accurate medication list in home, and adhere to medication schedule Description: Patient/caregiver will demonstrate ability to obtain, store, identify and administer ordered medications, keep accurate medication list in home, and adhere to medication schedule by 11/20/23. Medication Education No Patient/caregiver will be able to identify and report symptoms of sepsis Description: Patient/caregiver will be able to identify signs/symptoms of sepsis infection and will verbalize actions to take if suspected by 11/20/23. Sepsis No Patient to maintain parameters within physician-specified ranges throughout certification period Physician Specific Parameters No Manage Risk for falls Description: Patient/caregiver will verbalize knowledge of individualized fall prevention strategies by 11/20/23. Risk for Falls No Manage Pain Description: Patient and/or caregiver will verbalize knowledge and understanding of appropriate techniques to control pain, including pain medication and non-pharmacological techniques. Patient will verbalize or demonstrate an acceptable level of pain as evidenced by pain of 2/10 or less at rest. To be achieved by 11/20/23. Pain No Manage discharge planning Description: Patient/caregiver will verbalize understanding of ongoing discharge plan provided related to disease management, arrangements for outpatient and/or community services, obtaining medications, supplies, and DME, as needed throughout certification period. Discharge No Patient/caregiver will teach back high risk medication side effect and precaution education Description: STG Patient/caregiver will verbalize understanding of high risk medication side effects and precautions to be achieved by 11/20/23. LTG Patient/caregiver will continue to verbalize understanding of high risk medication side effects and precautions throughout certification period. High Risk Medications No Interventions Intervention Associated Problem/Goal Status Variance Visit Notes Physical Therapy Therapeutic Exercises Problem:PT Impaired muscle performance and/or ROM Goal:Improved Muscle Performance and/or ROM Completed patient instructed on strengthening and range of motion exercises including ankle pumps, quad and glut sets, and seated heel slides with verbal cues for resume when he get sheldon meds . patient instructed to perform home exercise program three times a day which included above ex. Physical Therapy Stair Training Problem:PT Impaired gait Goal:Improved Stair Climbing Patient requested to defer to next visit Physical Therapy Gait Training Problem:PT Impaired gait Goal:Improved Gait Patient requested to defer to next visit Instruct on orthopedic precautions and weight bearing restrictions Description: Orthopedic precautions including left total knee: no crossing legs, no knee flexed over pillow at rest, no kneeling, no squatting and no twisting. Weight bearing restrictions include: WBAT of involved extremity. Problem:PT Orthopedic Condition Goal:Manage Orthopedic Condition Completed patient instructed on orthopedic precautions. Instruct on management of edema Problem:PT Orthopedic Condition Goal:Manage Orthopedic Condition Completed Instruct patient on management of edema including elevation of LLE above the level of the heart and ice. Physical therapy to perform surgical incision/wound management Description: Removal of wound vac on 09/25/23 and apply silverlon dressing (remove silverlon 7 days after application). If no drainage is present, leave open to air; if drainage is present, cover with clean dressing and contact provider. Problem:PT Orthopedic Condition Goal:Manage Orthopedic Condition Completed Intervention completed this date. Wound vac removed. With patients consent, picture obtained and uploaded to chart. Applied silverlon dressing per orders. Instruct and educate on knowledge deficits Problem:PT Learning Assessment Goal:Demonstrate understanding of education Completed patient verbalize and/or demonstrate understanding of physical therapy education including home exercise program. Education methods include: verbal cues. Further education required to improve knowledge and compliance with home exercise program. Medication Education Description: Evaluate/instruct patient/caregiver on obtaining, storing, identifying and administering ordered medications as well as keeping accurate medication list in the home and adhereing to medication schedule Problem:Medication Education Goal:Patient/caregi rivka will demonstrate ability to obtain, store, identify and administer ordered medications, keep accurate medication list in home, and adhere to medication schedule Completed Patient instructed on importance of keeping accurate medication list in home and adhering to medication schedule. Risk of Sepsis Description: Patient is at risk for sepsis. Monitor closely for s/s of sepsis. Problem:Sepsis Goal:Patient/clairei rivka will be able to identify and report symptoms of sepsis Completed SPO2 Description: Notify Dr. Delgado if pulse ox is <92% at rest. [...] pain including Pharmacological measures and Non-Pharmacological measures; positioning/elevatio n and use of thermal modalities, apply ice to affected area for the following prescribed frequency: prn. Instruct on ongoing discharge plan Problem:Discharge Goal:Manage discharge planning Completed Ongoing Discharge plan: Discharge plan discussed with patient including frequency and duration for home PT and plan for transition to: outpatient therapy. Instruct on importance of follow-up appts and continued monitoring with medical provider &/or chronic care clinic Problem:Discharge Goal:Manage discharge planning Completed Education provided on importance of compliance with follow-up appointment(s). Recommendations: patient/caregiver to follow up with scheduling appointment(s) for post-acute/primary care provider/chronic care clinic Opioids- educated on high risk medication Problem:High Risk Medications Goal:Patient/caroline rivka will teach back high risk medication side effect and precaution education Completed patient educated on taking medication(s) as prescribed by provider. Do not stop medication or alter doses without speaking with your provider. Discuss medication effectiveness or side effect concerns with your provider and home care team. Only take opioids as prescribed, do not share your medications, and take proper precautions in storing and properly disposing of opioids once no longer needed. Possible side effects of opioid medication including sedation, decreased rate of breathing, and constipation. Report over sedation to prescribing provider and practice deep breathing techniques every hour while awake. Prevent constipation by increasing water and fiber intake, increasing activity as tolerated, and use stool softener(s) as prescribed. Antiplatelet- educated on high risk medication Problem:High Risk Medications Goal:Patient/caregi rivka will teach back high risk medication side effect and precaution education Completed patient educated on taking medication(s) as prescribed by provider. Do not stop medication or alter doses without speaking with your provider. Discuss medication effectiveness or side effect concerns with your provider and home care team. Discuss all medications you are taking, even ybnq-kkj-epakelf medicines, with your provider and pharmacist since many drugs can interact with antiplatelet medications. If you forget to take a dose, DO NOT take a double dose. Take the missed dose as soon as possible on the same day. DO NOT take a double dose the next day to make up for the missed dose. Watch for signs of abnormal or excessive bleeding and bruising (refer to Bleeding Precautions education). Call your health care provider right away if you suspect something is wrong. Antibiotic- educated on high risk medication Problem:High Risk Medications Goal:Patient/caregi rivka will teach back high risk medication side effect and precaution education Completed patient educated on taking medication(s) as prescribed by provider. Do not stop medication or alter doses without speaking with your provider. Discuss medication effectiveness or side effect concerns with your provider and home care team. Take the full dispensed amount even if you start feeling better, as bacteria can become resistant to antibiotic treatment if you do not finish your prescription. Common side effects are upset stomach and diarrhea. Take your antibiotics with food unless otherwise indicated to help with indigestion. Taking an yxst-pxi-tchpoku probiotic or eating yogurt with live and active cultures three times a day can help prevent antibiotic-associate d diarrhea. Call your provider immediately if you develop rashes or hives as this could be a delayed allergic reaction. Seek emergency treatment if you develop severe allergic reaction symptoms such as mouth or tongue swelling. documented in this encounter [facility] home Plan of care note* Visit Details Visit Type -[employer]ULTANT ROUTINE Discipline -Physical Therapy Problems Problem Description Start Date Status Goals Interve ntions PT Impaired muscle performance and/or ROM Disciplines: PT 09/22/2023 Active 1 goal linked to scheduled/document ed intervention 1 goal intervention scheduled/document ed in this visit PT Impaired gait Disciplines: PT 09/22/2023 Active 2 goals linked to scheduled/document ed interventions 2 goal interventions scheduled/document ed in this visit PT Orthopedic Condition Disciplines: PT 09/22/2023 Active 1 goal linked to scheduled/document ed intervention 2 goal interventions scheduled/document ed in this visit PT Learning Assessment Disciplines: PT 09/22/2023 Active 1 goal linked to scheduled/document ed intervention 1 goal intervention scheduled/document ed in this visit Medication Education Disciplines: Skilled Services 09/22/2023 Active 1 goal linked to scheduled/document ed intervention 1 goal intervention scheduled/document ed in this visit Sepsis Disciplines: Skilled Services 09/22/2023 Active 1 goal linked to scheduled/document ed intervention 1 goal intervention scheduled/document ed in this visit Physician Specific Parameters Disciplines: Skilled Services 09/22/2023 Active 1 goal linked to scheduled/document ed intervention 1 goal intervention scheduled/document ed in this visit Risk for Falls Disciplines: Skilled Services 09/22/2023 Active 1 goal linked to scheduled/document ed intervention 1 goal intervention scheduled/document ed in this visit Pain Disciplines: Skilled Services 09/22/2023 Active 1 goal linked to scheduled/document ed intervention 1 goal intervention scheduled/document ed in this visit Discharge Disciplines: Skilled Services 09/22/2023 Active 1 goal linked to scheduled/document ed intervention 1 goal intervention scheduled/document ed in this visit High Risk Medications Disciplines: Skilled Services 09/22/2023 Active 1 goal linked to scheduled/document ed intervention 2 goal interventions scheduled/document ed in this visit Goals Goal Associated Problem Outcome Goal Met? Visit Notes Improved Muscle Performance and/or ROM Description: Short term goal: Patient will demonstrate improved L knee ROM to 5-90 degress of AROM or greater, to be achieved by 10/07/23. PT Impaired muscle performance and/or ROM No Improved Stair Climbing Description: STG:: Patient will demonstrate improved stair negotiation as evidenced by ascend/descend 3 steps with railing with supervision, to be achieved by 09/30/23. LTG: Patient will demonstrate improved stair negotiation as evidenced by ascend/descend 14 steps with railing Independently to safely access all areas of the home, to be achieved by 10/07/23. PT Impaired gait No Improved Gait Description: STG: Patient will demonstrate improved gait ability as evidenced by ambulation 150 feet with front wheeled walker with supervision, in order to access all areas of the home, to be achieved by 09/30/23. LTG: Patient will demonstrate improved gait ability as evidenced by ambulation 200 feet with LRAD independently with AD, to return to safe community ambulation, to be achieved by 10/07/23. PT Impaired gait No Manage Orthopedic Condition Description: Improve patient and/or caregiver understanding of post surgical and/or non-surgical orthopedic intervention management as evidenced by patient and/or caregiver able to verbalize, demonstrate, and teach back instruction, to be achieved by 10/07/23. PT Orthopedic Condition No Demonstrate understanding of education Description: Patient and/or caregiver will understand educational instruction to be achieved by 10/07/23. PT Learning Assessment No Patient/caregiver will demonstrate ability to obtain, store, identify and administer ordered medications, keep accurate medication list in home, and adhere to medication schedule Description: Patient/caregiver will demonstrate ability to obtain, store, identify and administer ordered medications, keep accurate medication list in home, and adhere to medication schedule by 11/20/23. Medication Education No Patient/caregiver will be able to identify and report symptoms of sepsis Description: Patient/caregiver will be able to identify signs/symptoms of sepsis infection and will verbalize actions to take if suspected by 11/20/23. Sepsis No Patient to maintain parameters within physician-specified ranges throughout certification period Physician Specific Parameters No Manage Risk for falls Description: Patient/caregiver will verbalize knowledge of individualized fall prevention strategies by 11/20/23. Risk for Falls No Manage Pain Description: Patient and/or caregiver will verbalize knowledge and understanding of appropriate techniques to control pain, including pain medication and non-pharmacological techniques. Patient will verbalize or demonstrate an acceptable level of pain as evidenced by pain of 2/10 or less at rest. To be achieved by 11/20/23. Pain No Manage discharge planning Description: Patient/caregiver will verbalize understanding of ongoing discharge plan provided related to disease management, arrangements for outpatient and/or community services, obtaining medications, supplies, and DME, as needed throughout certification period. Discharge No Patient/caregiver will teach back high risk medication side effect and precaution education Description: STG Patient/caregiver will verbalize understanding of high risk medication side effects and precautions to be achieved by 11/20/23. LTG Patient/caregiver will continue to verbalize understanding of high risk medication side effects and precautions throughout certification period. High Risk Medications No Interventions Intervention Associated Problem/Goal Status Variance Visit Notes Physical Therapy Therapeutic Exercises Problem:PT Impaired muscle performance and/or ROM Goal:Improved Muscle Performance and/or ROM Completed patient and caregiver instructed on strengthening and range of motion exercises including ankle pumps, quad and lgut sets, hip abd and add, saq and heel slides x's 10 each. supine ext hang x'5min. seated heel slides x's10 with visual, written and verbal cues for form and pace. patient instructed to perform home exercise program three times a day which included above ex. Physical Therapy Stair Training Problem:PT Impaired gait Goal:Improved Stair Climbing Completed Stair training and instruction to patient and caregiver on safe stair climbing, ascend/descend 15 steps, with railing and with crutch with supervision and verbal cues for pacing for safety. Physical Therapy Gait Training Problem:PT Impaired gait Goal:Improved Gait Completed Gait training and instruction to patient on safe ambulation with front wheeled walker for 2x's40 feet with supervision, with visual and verbal cues for corrections of gait deviations including heel to toe. Instruct on orthopedic precautions and weight bearing restrictions Description: Orthopedic precautions including left total knee: no crossing legs, no knee flexed over pillow at rest, no kneeling, no squatting and no twisting. Weight bearing restrictions include: WBAT of involved extremity. Problem:PT Orthopedic Condition Goal:Manage Orthopedic Condition Completed patient instructed on orthopedic precautions. Instruct on management of edema Problem:PT Orthopedic Condition Goal:Manage Orthopedic Condition Completed Instruct patient and caregiver on management of edema including elevation of LLE above the level of the heart and ice. Instruct and educate on knowledge deficits Problem:PT Learning Assessment Goal:Demonstrate understanding of education Completed patient verbalize and/or demonstrate understanding of physical therapy education including pain management and home exercise program. Education methods include: verbal cues. Further education required to improve knowledge and compliance with home exercise program. Medication Education Description: Evaluate/instruct patient/caregiver on obtaining, [...] of sepsis Completed SPO2 Description: Notify Dr. eDlgado if pulse ox is <92% at rest. [...] affected area for the following prescribed frequency: prn. Instruct on ongoing discharge plan Problem:Discharge Goal:Manage discharge planning Completed Ongoing Discharge plan: Discharge plan discussed with patient including frequency and duration for home PT and plan for transition to: outpatient therapy. Opioids- educated on high risk medication Problem:High Risk Medications Goal:Patient/caregive r will teach back high risk medication side effect and precaution education Completed patient educated on taking medication(s) as prescribed by provider. Do not stop medication or alter doses without speaking with your provider. Discuss medication effectiveness or side effect concerns with your provider and home care team. Only take opioids as prescribed, do not share your medications, and take proper precautions in storing and properly disposing of opioids once no longer needed. Possible side effects of opioid medication including sedation, decreased rate of breathing, and constipation. Report over sedation to prescribing provider and practice deep breathing techniques every hour while awake. Prevent constipation by increasing water and fiber intake, increasing activity as tolerated, and use stool softener(s) as prescribed. Antiplatelet- educated on high risk medication Problem:High Risk Medications Goal:Patient/caregive r will teach back high risk medication side effect and precaution education Completed patient educated on taking medication(s) as prescribed by provider. Do not stop medication or alter doses without speaking with your provider. Discuss medication effectiveness or side effect concerns with your provider and home care team. Discuss all medications you are taking, even olai-eyw-zvjllzz medicines, with your provider and pharmacist since many drugs can interact with antiplatelet medications. If you forget to take a dose, DO NOT take a double dose. Take the missed dose as soon as possible on the same day. DO NOT take a double dose the next day to make up for the missed dose. Watch for signs of abnormal or excessive bleeding and bruising (refer to Bleeding Precautions education). Call your health care provider right away if you suspect something is wrong. documented in this encounter [facility] home Plan of care note* Visit Details Visit Type -[employer]ULTANT ROUTINE Discipline -Physical Therapy Problems Problem Description Start Date Status Goals Interve ntions PT Impaired muscle performance and/or ROM Disciplines: PT 09/22/2023 Active 1 goal linked to scheduled/document ed intervention 1 goal intervention scheduled/document ed in this visit PT Impaired gait Disciplines: PT 09/22/2023 Active 2 goals linked to scheduled/document ed interventions 2 goal interventions scheduled/document ed in this visit PT Impaired balance Disciplines: PT 09/22/2023 Active 1 goal linked to scheduled/document ed intervention 1 goal intervention scheduled/document ed in this visit PT Orthopedic Condition Disciplines: PT 09/22/2023 Active 1 goal linked to scheduled/document ed intervention 3 goal interventions scheduled/document ed in this visit PT Learning Assessment Disciplines: PT 09/22/2023 Active 1 goal linked to scheduled/document ed intervention 1 goal intervention scheduled/document ed in this visit Medication Education Disciplines: Skilled Services 09/22/2023 Active 1 goal linked to scheduled/document ed intervention 1 goal intervention scheduled/document ed in this visit Sepsis Disciplines: Skilled Services 09/22/2023 Active 1 goal linked to scheduled/document ed intervention 1 goal intervention scheduled/document ed in this visit Physician Specific Parameters Disciplines: Skilled Services 09/22/2023 Active 1 goal linked to scheduled/document ed intervention 1 goal intervention scheduled/document ed in this visit Risk for Falls Disciplines: Skilled Services 09/22/2023 Active 1 goal linked to scheduled/document ed intervention 1 goal intervention scheduled/document ed in this visit Pain Disciplines: Skilled Services 09/22/2023 Active 1 goal linked to scheduled/document ed intervention 1 goal intervention scheduled/document ed in this visit Discharge Disciplines: Skilled Services 09/22/2023 Active 1 goal linked to scheduled/document ed intervention 1 goal intervention scheduled/document ed in this visit Goals Goal Associated Problem Outcome Goal Met? Visit Notes Improved Muscle Performance and/or ROM Description: Short term goal: Patient will demonstrate improved L knee ROM to 5-90 degress of AROM or greater, to be achieved by 10/07/23. PT Impaired muscle performance and/or ROM No Improved Stair Climbing Description: STG:: Patient will demonstrate improved stair negotiation as evidenced by ascend/descend 3 steps with railing with supervision, to be achieved by 09/30/23. LTG: Patient will demonstrate improved stair negotiation as evidenced by ascend/descend 14 steps with railing Independently to safely access all areas of the home, to be achieved by 10/07/23. PT Impaired gait No Improved Gait Description: STG: Patient will demonstrate improved gait ability as evidenced by ambulation 150 feet with front wheeled walker with supervision, in order to access all areas of the home, to be achieved by 09/30/23. LTG: Patient will demonstrate improved gait ability as evidenced by ambulation 200 feet with LRAD independently with AD, to return to safe community ambulation, to be achieved by 10/07/23. PT Impaired gait No Improved Balance Description: Short term goal: Patient will demonstrate improved standing balance and functional ability as evidenced by TUGscore of 18 seconds or less, to be achieved by 10/07/23. PT Impaired balance No Manage Orthopedic Condition Description: Improve patient and/or caregiver understanding of post surgical and/or non-surgical orthopedic intervention management as evidenced by patient and/or caregiver able to verbalize, demonstrate, and teach back instruction, to be achieved by 10/07/23. PT Orthopedic Condition No Demonstrate understanding of education Description: Patient and/or caregiver will understand educational instruction to be achieved by 10/07/23. PT Learning Assessment No Patient/caregiver will demonstrate ability to obtain, store, identify and administer ordered medications, keep accurate medication list in home, and adhere to medication schedule Description: Patient/caregiver will demonstrate ability to obtain, store, identify and administer ordered medications, keep accurate medication list in home, and adhere to medication schedule by 11/20/23. Medication Education No Patient/caregiver will be able to identify and report symptoms of sepsis Description: Patient/caregiver will be able to identify signs/symptoms of sepsis infection and will verbalize actions to take if suspected by 11/20/23. Sepsis No Patient to maintain parameters within physician-specified ranges throughout certification period Physician Specific Parameters No Manage Risk for falls Description: Patient/caregiver will verbalize knowledge of individualized fall prevention strategies by 11/20/23. Risk for Falls No Manage Pain Description: Patient and/or caregiver will verbalize knowledge and understanding of appropriate techniques to control pain, including pain medication and non-pharmacological techniques. Patient will verbalize or demonstrate an acceptable level of pain as evidenced by pain of 2/10 or less at rest. To be achieved by 11/20/23. Pain No Manage discharge planning Description: Patient/caregiver will verbalize understanding of ongoing discharge plan provided related to disease management, arrangements for outpatient and/or community services, obtaining medications, supplies, and DME, as needed throughout certification period. Discharge No Interventions Intervention Associated Problem/Goal Status Variance Visit Notes Physical Therapy Therapeutic Exercises Problem:PT Impaired muscle performance and/or ROM Goal:Improved Muscle Performance and/or ROM Completed patient instructed on strengthening and range of motion exercises including standing heel raises, hams curls, hip abd and flexion x's 10 each. step flexion stretch and seated heel slides x's 10 w/ 10se hold. supine ext hang x'5min with visual, written and verbal cues for form. patient instructed to perform home exercise program twice a day which included above ex. Physical Therapy Stair Training Problem:PT Impaired gait Goal:Improved Stair Climbing Completed Stair training and instruction to patient on safe stair climbing, ascend/descend 3 steps, without railing and with crutch with supervision and verbal cues for safety. Physical Therapy Gait Training Problem:PT Impaired gait Goal:Improved Gait Completed Gait training and instruction to patient on safe ambulation with crutch for 3x's 40 feet with supervision, with verbal cues for corrections of gait deviations including heel strike and also for heel to toe . Physical Therapy Balance Training Problem:PT Impaired balance Goal:Improved Balance Completed Developed, implemented, and instructed patient on standing balance exercises including standing ex and crutch training. Instruct on orthopedic precautions and weight bearing restrictions Description: Orthopedic precautions including left total knee: no crossing legs, no knee flexed over pillow at rest, no kneeling, no squatting and no twisting. Weight bearing restrictions include: WBAT of involved extremity. Problem:PT Orthopedic Condition Goal:Manage Orthopedic Condition Completed patient instructed on orthopedic precautions. Instruct on management of edema Problem:PT Orthopedic Condition Goal:Manage Orthopedic Condition Completed Instruct patient on management of edema including elevation of LLE above the level of the heart and ice. Physical therapy to perform surgical incision/wound management Description: Removal of wound vac on 09/25/23 and apply silverlon dressing (remove silverlon 7 days after application). If no drainage is present, leave open to air; if drainage is present, cover with clean dressing and contact provider. Problem:PT Orthopedic Condition Goal:Manage Orthopedic Condition Completed Intervention completed this date. With patients permission, picture obtained and uploaded to chart Instruct and educate on knowledge deficits Problem:PT Learning Assessment Goal:Demonstrate understanding of education Completed patient verbalize and/or demonstrate understanding of physical therapy education including pain management and home exercise program. Education methods include: verbal cues, written instructions and visual cues. Further education required to improve knowledge and compliance with home exercise program. Medication Education Description: Evaluate/instruct patient/caregiver on obtaining, [...] of sepsis Completed SPO2 Description: Notify Dr. Delgado if pulse ox is <92% at rest. Problem:Physician Specific Parameters Goal:Patient to maintain parameters within physician-specified ranges throughout certification period Completed Instruct on individual fall risk factors and strategies to prevent falls and injuries caused by falls. Problem:Risk for Falls Goal:Manage Risk for falls Completed PT: Patient instructed on Managing Impaired Functional Mobility: Use assistive device(s): crutche Managing Pain Instruct on pain and instruct on strategies to control pain Problem:Pain Goal:Manage Pain Completed patient instructed on techniques to control pain including Pharmacological measures and Non-Pharmacological measures; positioning/elevation and use of thermal modalities, apply ice to affected area for the following prescribed frequency: prn. Instruct on ongoing discharge plan Problem:Discharge Goal:Manage discharge planning Completed Ongoing Discharge plan: Discharge plan discussed with patient including frequency and duration for home PT and plan for transition to: outpatient therapy[facility] Visit Details Visit Type -PT AGENCY DC W V ISIT Discipline -Physical Therapy Problems Problem Description Start Date Status Goals Interve ntions PT Impaired muscle performance and/or ROM Disciplines: PT 09/22/2023 Resolved on 10/06/2023 1 goal linked to scheduled/document ed intervention 1 goal intervention scheduled/document ed in this visit PT Impaired mobility Disciplines: PT 09/22/2023 Resolved on 10/06/2023 2 goals linked to scheduled/document ed interventions 2 goal interventions scheduled/document ed in this visit PT Impaired gait Disciplines: PT 09/22/2023 Resolved on 10/06/2023 2 goals linked to scheduled/document ed interventions 2 goal interventions scheduled/document ed in this visit PT Impaired balance Disciplines: PT 09/22/2023 Resolved on 10/06/2023 1 goal linked to scheduled/document ed intervention 1 goal intervention scheduled/document ed in this visit PT Orthopedic Condition Disciplines: PT 09/22/2023 Resolved on 10/06/2023 1 goal linked to scheduled/document ed intervention 2 goal interventions scheduled/document ed in this visit PT Learning Assessment Disciplines: PT 09/22/2023 Resolved on 10/06/2023 1 goal linked to scheduled/document ed intervention 1 goal intervention scheduled/document ed in this visit Medication Education Disciplines: Skilled Services 09/22/2023 Resolved on 10/06/2023 1 goal linked to scheduled/document ed intervention Sepsis Disciplines: Skilled Services 09/22/2023 Resolved on 10/06/2023 1 goal linked to scheduled/document ed intervention 1 goal intervention scheduled/document ed in this visit Physician Specific Parameters Disciplines: Skilled Services 09/22/2023 Resolved on 10/06/2023 1 goal linked to scheduled/document ed intervention 1 goal intervention scheduled/document ed in this visit Risk for Falls Disciplines: Skilled Services 09/22/2023 Resolved on 10/06/2023 1 goal linked to scheduled/document ed intervention 1 goal intervention scheduled/document ed in this visit Pain Disciplines: Skilled Services 09/22/2023 Resolved on 10/06/2023 1 goal linked to scheduled/document ed intervention 1 goal intervention scheduled/document ed in this visit Discharge Disciplines: Skilled Services 09/22/2023 Resolved on 10/06/2023 1 goal linked to scheduled/document ed intervention 1 goal intervention scheduled/document ed in this visit High Risk Medications Disciplines: Skilled Services 09/22/2023 Resolved on 10/06/2023 1 goal linked to scheduled/document ed intervention Goals Goal Associated Problem Outcome Goal Met? Visit Notes Improved Muscle Performance and/or ROM Description: Short term goal: Patient will demonstrate improved L knee ROM to 5-90 degress of AROM or greater, to be achieved by 10/07/23. PT Impaired muscle performance and/or ROM Completed Yes Improved Transfers Description: Short term goal: Patient will demonstrate safe transfers to/from bed, chair and toilet independently, to be achieved by 09/30/23. PT Impaired mobility Completed Yes Improved Bed Mobility Description: STG: Patient will demonstrate improved bed mobility, ability to position self and supine <> sit independently to be achieved by 09/30/23. PT Impaired mobility Completed Yes Improved Stair Climbing Description: STG:: Patient will demonstrate improved stair negotiation as evidenced by ascend/descend 3 steps with railing with supervision, to be achieved by 09/30/23. LTG: Patient will demonstrate improved stair negotiation as evidenced by ascend/descend 14 steps with railing Independently to safely access all areas of the home, to be achieved by 10/07/23. PT Impaired gait Completed Yes Improved Gait Description: STG: Patient will demonstrate improved gait ability as evidenced by ambulation 150 feet with front wheeled walker with supervision, in order to access all areas of the home, to be achieved by 09/30/23. LTG: Patient will demonstrate improved gait ability as evidenced by ambulation 200 feet with LRAD independently with AD, to return to safe community ambulation, to be achieved by 10/07/23. PT Impaired gait Completed Yes Improved Balance Description: Short term goal: Patient will demonstrate improved standing balance and functional ability as evidenced by TUGscore of 18 seconds or less, to be achieved by 10/07/23. PT Impaired balance Completed Yes Manage Orthopedic Condition Description: Improve patient and/or caregiver understanding of post surgical and/or non-surgical orthopedic intervention management as evidenced by patient and/or caregiver able to verbalize, demonstrate, and teach back instruction, to be achieved by 10/07/23. PT Orthopedic Condition Completed Yes Demonstrate understanding of education Description: Patient and/or caregiver will understand educational instruction to be achieved by 10/07/23. PT Learning Assessment Completed Yes Patient/caregiver will demonstrate ability to obtain, store, identify and administer ordered medications, keep accurate medication list in home, and adhere to medication schedule Description: Patient/caregiver will demonstrate ability to obtain, store, identify and administer ordered medications, keep accurate medication list in home, and adhere to medication schedule by 11/20/23. Medication Education Completed Yes Patient/caregiver will be able to identify and report symptoms of sepsis Description: Patient/caregiver will be able to identify signs/symptoms of sepsis infection and will verbalize actions to take if suspected by 11/20/23. Sepsis Completed Yes Patient to maintain parameters within physician-specified ranges throughout certification period Physician Specific Parameters Completed Yes Manage Risk for falls Description: Patient/caregiver will verbalize knowledge of individualized fall prevention strategies by 11/20/23. Risk for Falls Completed Yes Manage Pain Description: Patient and/or caregiver will verbalize knowledge and understanding of appropriate techniques to control pain, including pain medication and non-pharmacological techniques. Patient will verbalize or demonstrate an acceptable level of pain as evidenced by pain of 2/10 or less at rest. To be achieved by 11/20/23. Pain Completed Yes Manage discharge planning Description: Patient/caregiver will verbalize understanding of ongoing discharge plan provided related to disease management, arrangements for outpatient and/or community services, obtaining medications, supplies, and DME, as needed throughout certification period. Discharge Completed Yes Patient/caregiver will teach back high risk medication side effect and precaution education Description: STG Patient/caregiver will verbalize understanding of high risk medication side effects and precautions to be achieved by 11/20/23. LTG Patient/caregiver will continue to verbalize understanding of high risk medication side effects and precautions throughout certification period. High Risk Medications Completed Yes Interventions Intervention Associated Problem/Goal Status Variance Visit Notes Physical Therapy Therapeutic Exercises Problem:PT Impaired muscle performance and/or ROM Goal:Improved Muscle Performance and/or ROM Completed patient instructed on strengthening and range of motion exercises including standing heel raises, hams curls, hip abd and flexion x's 10 each. step flexion stretch and seated heel slides x's 10 w/ 10se hold. supine ext hang x'5min with visual, written and verbal cues for form. patient instructed to perform home exercise program twice a day which included above ex. Physical Therapy Transfer Training Problem:PT Impaired mobility Goal:Improved Transfers Completed JUAN ALBERTO transfers with safe/proper technique Physical Therapy Bed Mobility Training Problem:PT Impaired mobility Goal:Improved Bed Mobility Completed JUAN ALBERTO bed mobility Physical Therapy Stair Training Problem:PT Impaired gait Goal:Improved Stair Climbing Completed up and down 1 lfight with rail and step together seqeunce Physical Therapy Gait Training Problem:PT Impaired gait Goal:Improved Gait Completed Indep amb with single crutch oor no ad with steady recip pattern x 100 Physical Therapy Balance Training Problem:PT Impaired balance Goal:Improved Balance Completed pt demonstrates improved dynamic standing balance as evidenced by a tug of 26 Instruct on orthopedic precautions and weight bearing restrictions Description: Orthopedic precautions including left total knee: no crossing legs, no knee flexed over pillow at rest, no kneeling, no squatting and no twisting. Weight bearing restrictions include: WBAT of involved extremity. Problem:PT Orthopedic Condition Goal:Manage Orthopedic Condition Completed patient instructed on orthopedic precautions. Instruct on management of edema Problem:PT Orthopedic Condition Goal:Manage Orthopedic Condition Completed Instruct patient on management of edema including elevation of RLE above the level of the heart and ice. Instruct and educate on knowledge deficits Problem:PT Learning Assessment Goal:Demonstrate understanding of education Completed patient verbalize and/or demonstrate understanding of physical therapy education including orthopedic condition management, surgical precautions, pain management, fall prevention strategies, home safety, functional activity and home exercise program. Education methods include: verbal cues and written instructions. Risk of Sepsis Description: Patient is at risk for sepsis. Monitor closely for s/s of sepsis. Problem:Sepsis Goal:Patient/caregive r will be able to identify and report symptoms of sepsis Completed SPO2 Description: Notify Dr. Delgado if pulse ox is <92% at rest. Problem:Physician Specific Parameters Goal:Patient to maintain parameters within physician-specified ranges throughout certification period Completed Instruct on individual fall risk factors and strategies to prevent falls and injuries caused by falls. Problem:Risk for Falls Goal:Manage Risk for falls Completed PT: Patient instructed on Eliminating Environmental Hazards: Keep pathways clear, Keep pets out of pathways, Remove unsafe rugs, Move furniture from pathways, Keep rooms and walkways well lit and Wear supportive shoes or non-skid socks Managing Impaired Functional Mobility: Use assistive device(s): crutch Managing Pain Instruct on pain and instruct on strategies to control pain Problem:Pain Goal:Manage Pain Completed patient instructed on techniques to control pain including Pharmacological measures and Non-Pharmacological measures; rest, positioning/elevation and use of thermal modalities, apply ice to affected area . Instruct on final discharge plan and deliver discharge instructions Problem:Discharge Goal:Manage discharge planning Completed Delivered Discharge plan: Discharge plan discussed with patient for plan for transition to: outpatient therapy documented in this encounter [facility] for referral (narrative)* Diagnostic Procedure Only (Routine) - Pending Review Specialty Diagnoses / Procedures Referred By Sandy douglas Referred To Contact XR IMAGING Diagnoses Right knee pain, unspecified chronicity Procedures XR KNEE GENERAL 4V AP BOTH/PA BOTH/LAT/MERC RIGHT RADIOLOGIC EXAM KNEE COMPLETE 4/MORE VIEWS Miguel Laguna MD [address] [place] [address] Xr Imaging Referral ID Status Reason Start Date Expiration Date Visits Requested Visits Authorized [id number] Pending Review Auto-Generat ed Referral 10/27/2021 11/26/2022 1 1 [facility] for referral (narrative)* Outpatient Procedure (Routine) - Closed Specialty Diagnoses / Procedures Referred By Contac t Referred To Contact [facility] Diagnoses Pre-operative examination Procedures ECG COMPLETE ECG ROUTINE ECG W/LEAST 12 LDS W/I&R Margie Barrera 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 ENGINEER.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 [address] [place] [address] [facility] [place] [address] [place] [address] Referral ID Status Reason Start Date Expiration Date V isits Requested Visits Authorized [id number] Closed Auto-Generate d Referral 11/15/2021 11/15/2022 1 1 [facility] for referral (narrative)* Diagnostic Procedure Only (Routine) - Pending Review Specialty Diagnoses / Procedures Referred By Contac t Referred To Contact XR IMAGING Diagnoses Post-traumatic osteoarthritis of right knee Status post total right knee replacement Procedures XR KNEE GENERAL 4V AP BOTH/PA BOTH/LAT/MERC RIGHT RADIOLOGIC EXAM KNEE COMPLETE 4/MORE VIEWS Miguel Laguna MD [address] [facility] [place] [address] Xr Imaging Referral ID Status Reason Start Date Expiration Date Visits Requested Visits Authorized [id number] Pending Review Auto-Generat ed Referral 12/09/2021 01/08/2023 1 1 [facility] for referral (narrative)* Diagnostic Procedure Only (Routine) - Pending Review Specialty Diagnoses / Procedures Referred By Contac t Referred To Contact XR IMAGING Diagnoses Pain of right hip Procedures XR HIP GENERAL 3V PELV/AP/LAT RIGHT RADEX HIP UNILATERAL WITH PELVIS 2-3 VIEWS Monica Venegas PASunnyC [address] [place] [address] Xr Imaging Referral ID Status Reason Start Date Expiration Date Visits Requested Visits Authorized [id number] Pending Review Auto-Generat ed Referral 07/22/2022 08/21/2023 1 1 [facility] for referral (narrative)* Diagnostic Procedure Only (Routine) - Authorized Specialty Diagnoses / Procedures Referred By Contac t Referred To Contact US IMAGING Diagnoses Left flank pain Bilateral renal stones Procedures US KIDNEY/BLADDER US RETROPERITONEAL REAL TIME W/IMAGE COMPLETE Ascencion Villalba PA-C [address] [id number] [facility] [place] [facility] Referral ID Status Reason Start Date Expiration Date Visits Requested Visits Authorized [id number] Authorized Auto-Generat ed Referral 11/04/2022 12/04/2023 1 1 [facility] for referral (narrative)* Outpatient Procedure (Routine) - Pending Review Specialty Diagnoses / Procedures Referred By Contac t Referred To Contact [facility] Diagnoses Essential hypertension Renal artery stenosis (HCC) Procedures US RENAL ARTERY LAURA [facility] DUP-SCAN ARTL ABDIEL ABDL/PEL/SCROT&/RPR ORGN COM Kt Mortensen MD [address] [address] [facility] [place] [address] [place], [place] [id number] Referral ID Status Reason Start Date Expiration Date Visits Requested Visits Authorized [id number] Pending Review Auto-Generat ed Referral 11/10/2022 11/10/2023 1 1 [facility] for referral (narrative)* Diagnostic Procedure Only (Routine) - Authorized Specialty Diagnoses / Procedures Referred By Contac t Referred To Contact US IMAGING Diagnoses Renal cyst Procedures US KIDNEY/BLADDER US RETROPERITONEAL REAL TIME W/IMAGE COMPLETE Kt Mortensen MD [address] [place] [address] [place] [address] Referral ID Status Reason Start Date Expiration Date Visits Requested Visits Authorized [id number] Authorized Auto-Generat ed Referral 12/26/2022 03/19/2023 1 1 [facility] for referral (narrative)* Diagnostic Procedure Only (Routine) - Pending Review Specialty Diagnoses / Procedures Referred By Contac t Referred To Contact XR IMAGING Diagnoses Pain of right hip Procedures XR HIP GENERAL 3V PELV/AP/LAT RIGHT RADEX HIP UNILATERAL WITH PELVIS 2-3 VIEWS Monica Venegas PA-C [address] [place] [address] [place] [address] Referral ID Status Reason Start Date Expiration Date Visits Requested Visits Authorized [id number] Pending Review Auto-Generat ed Referral 07/22/2022 08/21/2023 1 1 [facility] for referral (narrative)* Diagnostic Procedure Only (Routine) - Closed Specialty Diagnoses / Procedures Referred By Contac t Referred To Contact XR IMAGING Diagnoses Left flank pain Procedures XR THORACIC GENERAL 3V AP/LAT/SWIMMERS RADEX SPINE THORACIC 3 VIEWS Jossy Natarajan APRN.CERAMIC COATER MACHINE [address] [place] [address] [place] [address] Referral ID Status Reason Start Date Expiration Date V isits Requested Visits Authorized [id number] Closed Auto-Generate d Referral 12/20/2022 01/19/2024 1 1 * Diagnostic Procedure Only (Routine) - Closed Specialty Diagnoses / Procedures Referred By Contac t Referred To Contact XR IMAGING Diagnoses Left flank pain Procedures XR LUMBAR GENERAL 3V AP/LAT/L5-S1 RADEX SPINE LUMBOSACRAL 2/3 VIEWS Jossy Natarajan APRN.CERAMIC COATER MACHINE [address] [place] [address] [place] [address] Referral ID Status Reason Start Date Expiration Date V isits Requested Visits Authorized [id number] Closed Auto-Generate d Referral 12/20/2022 01/19/2024 1 1 [facility] for referral (narrative)* Diagnostic Procedure Only (Routine) - Closed Specialty Diagnoses / Procedures Referred By Contac t Referred To Contact US IMAGING Diagnoses Renal cyst Procedures US KIDNEY/BLADDER US RETROPERITONEAL REAL TIME W/IMAGE COMPLETE Kt Mortensen MD [address] [address] [place] [address] Referral ID Status Reason Start Date Expiration Date V isits Requested Visits Authorized [id number] Closed Auto-Generate d Referral 12/26/2022 03/19/2023 1 1 [facility] for referral (narrative)* Diagnostic Procedure Only (Routine) - Pending Review Specialty Diagnoses / Procedures Referred By Contac t Referred To Contact [facility] Diagnoses MONROY (dyspnea on exertion) Procedures NM CARDIAC PERF STRESS/PHARM MYOCARDIAL SPECT MULTIPLE STUDIES Moisés Munguia MD [address] [address] [facility] [address] [place] [address] Referral ID Status Reason Start Date Expiration Date Visits Requested Visits Authorized [id number] Pending Review Auto-Generat ed Referral 03/04/2024 1 1 [facility] for referral (narrative)* Diagnostic Procedure Only (Routine) - Closed Specialty Diagnoses / Procedures Referred By Contac t Referred To Contact XR IMAGING Diagnoses Strain of left hamstring muscle, initial encounter Left leg pain Procedures XR HIP GENERAL 3V PELV/AP/LAT LEFT RADEX HIP UNILATERAL WITH PELVIS 2-3 VIEWS Darleen Lopez DO [address] [place] [address] [place] [address] Referral ID Status Reason Start Date Expiration Date V isits Requested Visits Authorized [id number] Closed Auto-Generate d Referral 05/17/2023 06/15/2024 1 1 [facility] for referral (narrative)* Diagnostic Procedure Only (Routine) - Pending Review Specialty Diagnoses / Procedures Referred By Contac t Referred To Contact [facility] Diagnoses MONROY (dyspnea on exertion) Procedures NM CARDIAC PERF STRESS/PHARM MYOCARDIAL SPECT MULTIPLE STUDIES Moisés Munguia MD [address] [facility] [address] [place] [address] [facility] [address] [id number] Referral ID Status Reason Start Date Expiration Date Visits Requested Visits Authorized [id number] Pending Review Auto-Generat ed Referral 3 03/04/2024 1 1 [facility] for referral (narrative)* Diagnostic Procedure Only (Routine) - New Request Specialty Diagnoses / Procedures Referred By Contac t Referred To Contact XR IMAGING Diagnoses Chronic pain of left knee Procedures XR KNEE POST OP 3V AP/LAT/MERCHANT LEFT RADIOLOGIC EXAMINATION KNEE 3 VIEWS Heath Delgado MD [address] [facility] [address] [place] [address] [place] [address] Referral ID Status Reason Start Date Expiration Date Visits Requested Visits Authorized [id number] New Request Auto-Generat ed Referral 10/02/2023 10/31/2024 1 1 * Physical Therapy (Routine) - Pending Review Specialty Diagnoses / Procedures Referred By Contac t Referred To Contact [facility] Diagnoses Post-traumatic osteoarthritis of left knee Procedures CONSULT TO PHYSICAL THERAPY PHYSICAL THERAPY EVALUATION HIGH COMPLEX 45 MINS Heath Delgado MD [address] [address] [facility] [place] [address] [place] [address] Referral ID Status Reason Start Date Expiration Date Visits Requested Visits Authorized [id number] Pending Review Auto-Generat ed Referral 10/02/2023 10/01/2024 1 1 [facility] for referral (narrative)* Diagnostic Procedure Only (Routine) - Pending Review Specialty Diagnoses / Procedures Referred By Sairaac t Referred To Contact XR IMAGING Diagnoses Chronic pain of left knee Procedures XR KNEE POST OP 3V AP/LAT/MERCHANT LEFT RADIOLOGIC EXAMINATION KNEE 3 VIEWS Heath Delgado MD [address] [address] [place] [address] Referral ID Status Reason Start Date Expiration Date Visits Requested Visits Authorized [id number] Pending Review Auto-Generat ed Referral 10/02/2023 10/31/2024 1 1 [facility] for referral (narrative)* Diagnostic Procedure Only (Routine) - New Request Specialty Diagnoses / Procedures Referred By Sandy douglas Referred To Contact US IMAGING Diagnoses Status post total left knee replacement Procedures US ASP/INJ KNEE JT/BURSA LEFT ARTHROCENTESIS ASPIR&/INJ MAJOR JT/BURSA W/US Heath Delgado MD [address] [address] [place] [address] Referral ID Status Reason Start Date Expiration Date Visits Requested Visits Authorized [id number] New Request Auto-Generat ed Referral 11/28/2023 12/27/2024 1 1 * Diagnostic Procedure Only (Routine) - Closed Specialty Diagnoses / Procedures Referred By Sairaac t Referred To Contact XR IMAGING Diagnoses Status post total left knee replacement Procedures XR KNEE GENERAL 4V AP BOTH/PA BOTH/LAT/MERC LEFT RADIOLOGIC EXAM KNEE COMPLETE 4/MORE VIEWS Heath Delgado MD [address] [address] [place] [address] Referral ID Status Reason Start Date Expiration Date V isits Requested Visits Authorized [id number] Closed Auto-Generate d Referral 11/28/2023 12/27/2024 1 1 [facility] for referral (narrative)* Diagnostic Procedure Only (Routine) - Closed Specialty Diagnoses / Procedures Referred By Sandy douglas Referred To Contact XR IMAGING Diagnoses Strain of left hamstring muscle, initial encounter Left leg pain Procedures XR HIP GENERAL 3V PELV/AP/LAT LEFT RADEX HIP UNILATERAL WITH PELVIS 2-3 VIEWS Darleen Lopez DO [address] [place] [address] [place] [address] Referral ID Status Reason Start Date Expiration Date V isits Requested Visits Authorized [id number] Closed Auto-Generate d Referral 05/17/2023 06/15/2024 1 1 * Diagnostic Procedure Only (Routine) - Pending Review Specialty Diagnoses / Procedures Referred By Sandy douglas Referred To Contact XR IMAGING Diagnoses Left knee pain, unspecified chronicity Procedures XR KNEE GENERAL 4V AP BOTH/PA BOTH/LAT/MERC LEFT RADIOLOGIC EXAM KNEE COMPLETE 4/MORE VIEWS Darleen Lopez DO [address] [place] [address] [place] [address] Referral ID Status Reason Start Date Expiration Date Visits Requested Visits Authorized [id number] Pending Review Auto-Generat ed Referral 05/10/2023 06/08/2024 1 1 [facility] for referral (narrative)No reason for referral information availableWD[facility] N[facility]* Diagnostic Procedure Only (Routine) - Pending Review Specialty Diagnoses / Procedures Referred By Contac t Referred To Contact XR IMAGING Diagnoses Pain of right hip Procedures XR HIP GENERAL 3V PELV/AP/LAT RIGHT RADEX HIP UNILATERAL WITH PELVIS 2-3 VIEWS Monica Venegas PA-C [address] [place] [address] [place] [address] Referral ID Status Reason Start Date Expiration Date Visits Requested Visits Authorized [id number] Pending Review Auto-Generat ed Referral 07/22/2022 08/21/2023 1 1 [facility] for visit Narrative* Diagnostic Procedure Only (Routine) - Closed Specialty Diagnoses / Procedures Referred By Contac t Referred To Contact XR IMAGING Diagnoses Left flank pain Procedures XR THORACIC GENERAL 3V AP/LAT/SWIMMERS RADEX SPINE THORACIC 3 VIEWS Jossy Natarajan, SUPERSONIC ENGINEER.CERAMIC COATER MACHINE [address] [place] [address] [place] [address] Referral ID Status Reason Start Date Expiration Date V isits Requested Visits Authorized [id number] Closed Auto-Generate d Referral 12/20/2022 01/19/2024 1 1 [facility] for visit Narrative* Diagnostic Procedure Only (Routine) - Pending Review Specialty Diagnoses / Procedures Referred By Contac t Referred To Contact XR IMAGING Diagnoses Chronic pain of left knee Procedures XR KNEE POST OP 3V AP/LAT/MERCHANT LEFT RADIOLOGIC EXAMINATION KNEE 3 VIEWS Heath Delgado MD [address] [address] [place] [address] Referral ID Status Reason Start Date Expiration Date Visits Requested Visits Authorized [id number] Pending Review Auto-Generat ed Referral 10/02/2023 10/31/2024 1 1 [facility] for visit Narrative* Diagnostic Procedure Only (Routine) - Closed Specialty Diagnoses / Procedures Referred By Contac t Referred To Contact XR IMAGING Diagnoses Status post total left knee replacement Procedures XR KNEE GENERAL 4V AP BOTH/PA BOTH/LAT/MERC LEFT RADIOLOGIC EXAM KNEE COMPLETE 4/MORE VIEWS Heath Delgado MD [address] [address] [place] [address] Referral ID Status Reason Start Date Expiration Date V isits Requested Visits Authorized [id number] Closed Auto-Generate d Referral 11/28/2023 12/27/2024 [facility] Procedure Only (Routine) - Pending Review Specialty Diagnoses / Procedures Referred By Contac t Referred To Contact XR IMAGING Diagnoses Left knee pain, unspecified chronicity Procedures XR KNEE GENERAL 4V AP BOTH/PA BOTH/LAT/MERC LEFT RADIOLOGIC EXAM KNEE COMPLETE 4/MORE VIEWS Darleen Lopez DO [address] [place] [address] [place] [address] Referral ID Status Reason Start Date Expiration Date Visits Requested Visits Authorized [id number] Pending Review Auto-Generat ed Referral 05/10/2023 06/08/2024 1 1 [facility] Summary Purpose Family History No Family History Records Found Relationship Condition Age at Onset Recorded Date/T jazlyn Unknown Family History?No pe rtinent history Unknown November 10, 2014 10:51am Family History?No pe rtinent history Unknown November 10, 2014 10:51am Relationship Condition Age at Onset Recorded Date/T jazlyn Unknown Family History?No pe rtinent history Unknown November 10, 2014 9:51am Family History?No pe rtinent history Unknown November 10, 2014 9:51am Advance Directives No Advanced Directives Records Found Date Activated Date Inactivated Comments 09/22/2023 12:15 PM 11/12/2023 5:36 PM Date Activated Date Inactivated Comments 08/31/2022 10:02 PM 09/02/2022 1:41 AM Question Answer Comments Full Code Order Discussed With: Patient Date Activated Date Inactivated Comments 12/04/2021 4:22 PM 08/31/2022 2:19 PM Advance Directive Response Recorded Date/ Time Advance Directives No November 09, 2014 7:55pm Living Will No June 26, 2021 10:09pm Power of Wax Pattern Coater No June 26 10:09pm Documents on File Type Date Recorded 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 Advance Directive(s) 11/14/2018 8:14 AM Advance Directive(s) 11/08/2018 12:59 PM Advance Directive(s) 10/26/2016 12:05 PM Advance Directive(s) 10/09/2015 6:15 AM Latest Code Status on File Code Status Date Activated Date Inactivated Comments Full Code 12/04/2021 4:22 PM Latest Code Status on File Code Status Date Activated Date Inactivated Comments Full Code 12/04/2021 4:22 PM Advance Directive Response Recorded Date/ Time Advance Directives No November 09, 2014 7:55pm Living Will No August 18, 2022 5 :32pm Power of Wax Pattern Coater No August 18, 2022 5:32pm Latest Code Status on File Code Status [...] Code 12/04/2021 4:22 PM 08/31/2022 2:19 PM Advance Directive Response Recorded Date/ Time Advance Directives No November 09, 2014 7:55pm Living Will No October 22, 2022 5:53pm Power of Wax Pattern Coater No October 22 5:53pm Latest Code Status on File Code Status [...] Comments Full Code Order Discussed With: Patient Advance Directive Response Recorded Date/ Time Advance Directives No November 09, 2014 6:55pm Living Will No April 10 4:59pm Power of Wax Pattern Coater No April 10, 2023 4:59pm Date Activated Date Inactivated Comments 08/31/2022 10:02 PM 09/02/2022 1:41 AM Question Answer Comments Full Code Order Discussed With: Patient Date Activated Date Inactivated Comments 12/04/2021 4:22 PM 08/31/2022 2:19 PM Date Activated Date Inactivated Comments 08/31/2022 10:02 PM 09/02/2022 1:41 AM Question Answer Comments Full Code Order Discussed With: Patient Date Activated Date Inactivated Comments 12/04/2021 4:22 PM 08/31/2022 2:19 PM Advance Directive Response Recorded Date/ Time Advance Directives No November 09, 2014 7:55pm Living Will No June 12, 2023 8:31pm Power of Wax Pattern Coater No June 11 8:31pm Date Activated Date Inactivated Comments 09/22/2023 12:15 PM Date Activated Date Inactivated Comments 09/22/2023 12:15 PM Date Activated Date Inactivated Comments 08/31/2022 10:02 PM 09/02/2022 1:41 AM Question Answer Comments Full Code Order Discussed With: Patient Date Activated Date Inactivated Comments 12/04/2021 4:22 PM 08/31/2022 2:19 PM Date Activated Date Inactivated Comments 09/22/2023 12:15 PM 11/12/2023 5:36 PM Advance Directive Response Recorded Date/ Time Living Will No June 28, 2024 2:07pm Do you have a Healthcare Power of Wax Pattern Coater? No June 28, 2024 2:07pm Advance Directives No November 09, 2014 7:55pm Advance Directive Response Recorded Date/ Time Living Will No June 28, 2024 2:07pm Do you have a Healthcare Power of Wax Pattern Coater? No June 28, 2024 2:07pm Do you have a Healthcare Power of Wax Pattern Coater? No September 12, 2024 3:04pm Advance Directives No November 09, 2014 7:55pm Chief Complaint and Reason for Visit Chief Complaint abd pain Chief Complaint HEADACHE Chief Complaint HEADACHE FLANK PAIN Chief Complaint eye problem HYPERTENSION lower ext Chief Complaint lower ext nosebleed Chief Complaint Admit Date flank pain June 28, 2024 1:4 3pm Chief Complaint Admit Date flank pain June 28, 2024 1:4 3pm rectal bleeding September 12, 2024 1:57 pm Reason for Referral Specialty Diagnoses / Procedures Referred By Sandy douglas Referred To Contact CT IMAGING Diagnoses Post-traumatic osteoarthritis of right knee Procedures CT KNEE WO IVCON RT CT LOWER EXTREMITY W/O CONTRAST MATERIAL Miguel Laguna MD [address] [place] [address] Ct Imaging Referral ID Status Reason Start Date Expiration Date Visits Requested Visits Authorized [id number] Authorized Auto-Generat ed Referral 11/01/2021 12/01/2022 1 1 Specialty Diagnoses / Procedures Referred By Sandy douglas Referred To Contact Diagnoses Post-traumatic osteoarthritis of right knee Procedures CONSULT TO [facility] Israel Santacruz PA-C [address] [place] [address] [address] [place] [id number] Referral ID Status Reason Start Date Expiration Date Visits Requested Visits Authorized [id number] Authorized PCP Requested Referral 11/11/2021 02/09/2022 1 1 Specialty Diagnoses / Procedures Referred By Sandy douglas Referred To Contact [facility] Diagnoses Post-traumatic osteoarthritis of right knee Preop examination Procedures CONSULT TO PHYSICAL THERAPY PHYSICAL THERAPY EVALUATION HIGH COMPLEX 45 MINS Israel Santacruz PA-C [address] [place] [address] [facility] [place] [address] [place] [address] Referral ID Status Reason Start Date Expiration Date Visits Requested Visits Authorized [id number] Pending Review Auto-Generat ed Referral 11/11/2021 11/11/2022 1 1 Specialty Diagnoses / Procedures Referred By Sandy douglas Referred To Contact Physical Therapy / PHYSICAL THERAPY Diagnoses Status post total knee replacement, unspecified laterality Procedures CONSULT TO PHYSICAL THERAPY Monica Venegas PA-C [address] [place] [address] [employer]son Brand Protection Manager [address] [place] [address] [place] [address] Referral ID Status Reason Start Date Expiration Date Visits Requested Visits Authorized [id number] Authorized Financial Clearance Required - Self Pay Patient Cleared - Qualified 100% FAS 12/08/2021 03/08/2022 99 99 Specialty Diagnoses / Procedures Referred By Contac t Referred To Contact Cardiology Diagnoses Uncontrolled hypertension Procedures CONSULT TO CARDIOLOGY OFFICE/OUTPATIENT [facility] 60-74 MINUTES Jossy Natarajan, SUPERSONIC ENGINEER.CERAMIC COATER MACHINE [address] [place] [address] Moisés Munguia MD [address] [place] [address] Referral ID Status Reason Start Date Expiration Date Visits Requested Visits Authorized [id number] Pending Review PCP Requested Referral 08/23/2022 08/23/2023 1 1 Specialty Diagnoses / Procedures Referred By Contac t Referred [facility] Diagnoses Uncontrolled hypertension Procedures ECHO ECHO TTHRC R-T 2D W/WOM-MODE COMPL SPEC&COLR D Jossy Natarajan, SUPERSONIC ENGINEER.CERAMIC COATER MACHINE [address] [place] [address] [facility] [place] [address] [place] [address] Referral ID Status Reason Start Date Expiration Date Visits Requested Visits Authorized [id number] Pending Review Auto-Generat ed Referral 08/23/2022 08/23/2023 1 1 Specialty Diagnoses / Procedures Referred By Contac t Referred To Contact Urology / [facility] Department Diagnoses Left flank pain Bilateral renal stones Procedures CONSULT TO UROLOGY OFFICE/OUTPATIENT [facility] 60-74 MINUTES Jossy Natarajan, SUPERSONIC ENGINEER.CERAMIC COATER MACHINE [address] [place] [address] Ascencion Villalba PA-C [address] [place] [address] Referral ID Status Reason Start Date Expiration Date Visits Requested Visits Authorized [id number] Authorized PCP Requested Referral 10/24/2022 10/24/2023 1 1 Specialty Diagnoses / Procedures Referred By Contac t Referred To Contact Nephrology / [facility] Department Diagnoses Uncontrolled hypertension Procedures CONSULT TO NEPHROLOGY OFFICE/OUTPATIENT [facility] MDM 60-74 MINUTES Jossy Natarajan APRN.CERAMIC COATER MACHINE [address] [place] [address] Kt Mortensen MD [address] [facility] [address] [place] [address] Referral ID Status Reason Start Date Expiration Date Visits Requested Visits Authorized [id number] Authorized PCP Requested Referral 10/24/2022 10/24/2023 1 1 Specialty Diagnoses / Procedures Referred By Contac t Referred To Contact Diagnoses Chronic left flank pain DDD (degenerative disc disease), lumbar DDD (degenerative disc disease), thoracic Procedures CONSULT TO PAIN MGT Jossy Natarajan APRN.CERAMIC COATER MACHINE [address] [place] [address] [facility] Referral ID Status Reason Start Date Expiration Date Visits Requested Visits Authorized [id number] Ref Not Required PCP Requested Referral 3 12/29/2023 1 1 Specialty Diagnoses / Procedures Referred By Contac t Referred To Contact [facility] Diagnoses Left leg pain Left hamstring injury, initial encounter Strain of left hamstring muscle, initial encounter Acute pain of left knee Procedures CONSULT TO PHYSICAL THERAPY PHYSICAL THERAPY EVALUATION HIGH COMPLEX 45 MINS Jossy Natarajan APRN.CERAMIC COATER MACHINE [address] [place] [address] [facility] [place] [address] [place] [address] Referral ID Status Reason Start Date Expiration Date Visits Requested Visits Authorized [id number] Pending Review Auto-Generat ed Referral 04/20/2023 04/19/2024 1 1 Specialty Diagnoses / Procedures Referred By Contac t Referred To Contact Orthopedics / [facility] DEPARTMENT Diagnoses Strain of left hamstring muscle, initial encounter Left leg pain Procedures CONSULT TO ORTHOPAEDIC SURGERY OFFICE/OUTPATIENT NEW [facility] MDM 60 MINUTES Jossy Natarajan APRN.CERAMIC COATER MACHINE [address] [place] [address] Darleen Lopez, DO [address] [place] [address] Referral ID Status Reason Start Date Expiration Date Visits Requested Visits Authorized [id number] Authorized PCP Requested Referral 04/20/2023 04/19/2024 1 1 Specialty Diagnoses / Procedures Referred By Contac t Referred To Contact CT IMAGING Diagnoses Chronic pain of left knee Procedures CT KNEE WO IVCON LEFT CT LOWER EXTREMITY W/O CONTRAST MATERIAL Heath Delgado MD [address] [address] [place] [address] Referral ID Status Reason Start Date Expiration Date Visits Requested Visits Authorized [id number] Pending Review Auto-Generat ed Referral 06/01/2023 06/30/2024 1 1 Specialty Diagnoses / Procedures Referred By Contact Referred To Contact [facility] Diagnoses Pain due to total left knee replacement, sequela Procedures CONSULT TO PHYSICAL THERAPY PHYSICAL THERAPY EVALUATION HIGH COMPLEX 45 MINS Noah De Anda, BRYANNA.CERAMIC COATER MACHINE [address] [place] [address] [facility] [address] [address] Referral ID Status Reason Start Date Expiration Date Visits Requested Visits Authorized [id number] Pending Review Auto-Generat ed Referral 01/09/2025 1 1 Medications Administered Section Inactive Administered [...] ized section and content) DATE CREATED AUTHOR 01/28/2019 Smooth Tomvishal [facility] DATE CREATED AUTHOR AUTHOR'S ORGANIZ ATION 12/25/2022 [facility] DATE CREATED AUTHOR AUTHOR'S ORGANIZ ATION 12/08/2023 [facility] DATE CREATED AUTHOR AUTHOR'S ORGANIZ ATION 09/19/2024 [facility] DATE CREATED AUTHOR AUTHOR'S ORGANIZ ATION 09/19/2024 [facility] DATE CREATED AUTHOR AUTHOR'S ORGANIZ ATION 10/16/2024 [facility] [place] Goals (unrecognized section and content) Goals may be documented in a n alternate sectionGoals may be documented in an alternate sectionGoals may be documented in an alternate sectionGoals may be documented in an alternate sectionGoals may be documented in an alternate sectionGoals may be documented in an alternate sectionGoals may be documented in an alternate section Source Comments (unrecognize d section and content) In the event this informatio n is protected by the Federal Confidentiality of Alcohol and Drug Abuse Patient Records regulations: The Federal rules restrict any use of the information to criminally investigate or prosecute any alcohol or drug abuse patient.[facility] the event this information is protected by the Federal Confidentiality of Alcohol and Drug Abuse Patient Records regulations: The Federal rules restrict any use of the information to criminally investigate or prosecute any alcohol or drug abuse patient.[facility] the event this information is protected by the Federal Confidentiality of Alcohol and Drug Abuse Patient Records regulations: The Federal rules restrict any use of the information to criminally investigate or prosecute any alcohol or drug abuse patient.[facility] the event this information is protected by the Federal Confidentiality of Alcohol and Drug Abuse Patient Records regulations: The Federal rules restrict any use of the information to criminally investigate or prosecute any alcohol or drug abuse patient.[facility] the event this information is protected by the Federal Confidentiality of Alcohol and Drug Abuse Patient Records regulations: The Federal rules restrict any use of the information to criminally investigate or prosecute any alcohol or drug abuse patient.[facility] the event this information is protected by the Federal Confidentiality of Alcohol and Drug Abuse Patient Records regulations: The Federal rules restrict any use of the information to criminally investigate or prosecute any alcohol or drug abuse patient.[facility] the event this information is protected by the Federal Confidentiality of Alcohol and Drug Abuse Patient Records regulations: The Federal rules restrict any use of the information to criminally investigate or prosecute any alcohol or drug abuse patient.[facility] the event this information is protected by the Federal Confidentiality of Alcohol and Drug Abuse Patient Records regulations: The Federal rules restrict any use of the information to criminally investigate or prosecute any alcohol or drug abuse patient.[facility] the event this information is protected by the Federal Confidentiality of Alcohol and Drug Abuse Patient Records regulations: The Federal rules restrict any use of the information to criminally investigate or prosecute any alcohol or drug abuse patient.[facility] the event this information is protected by the Federal Confidentiality of Alcohol and Drug Abuse Patient Records regulations: The Federal rules restrict any use of the information to criminally investigate or prosecute any alcohol or drug abuse patient.[facility] the event this information is protected by the Federal Confidentiality of Alcohol and Drug Abuse Patient Records regulations: The Federal rules restrict any use of the information to criminally investigate or prosecute any alcohol or drug abuse patient.[facility] the event this information is protected by the Federal Confidentiality of Alcohol and Drug Abuse Patient Records regulations: The Federal rules restrict any use of the information to criminally investigate or prosecute any alcohol or drug abuse patient.[facility] the event this information is protected by the Federal Confidentiality of Alcohol and Drug Abuse Patient Records regulations: The Federal rules restrict any use of the information to criminally investigate or prosecute any alcohol or drug abuse patient.[facility] the event this information is protected by the Federal Confidentiality of Alcohol and Drug Abuse Patient Records regulations: The Federal rules restrict any use of the information to criminally investigate or prosecute any alcohol or drug abuse patient.[facility] the event this information is protected by the Federal Confidentiality of Alcohol and Drug Abuse Patient Records regulations: The Federal rules restrict any use of the information to criminally investigate or prosecute any alcohol or drug abuse patient.[facility] the event this information is protected by the Federal Confidentiality of Alcohol and Drug Abuse Patient Records regulations: The Federal rules restrict any use of the information to criminally investigate or prosecute any alcohol or drug abuse patient.[facility] the event this information is protected by the Federal Confidentiality of Alcohol and Drug Abuse Patient Records regulations: The Federal rules restrict any use of the information to criminally investigate or prosecute any alcohol or drug abuse patient.[facility] HospitalIn the event this information is protected by the Federal Confidentiality of Alcohol and Drug Abuse Patient Records regulations: The Federal rules restrict any use of the information to criminally investigate or prosecute any alcohol or drug abuse patient.[facility] HospitalIn the event this information is protected by the Federal Confidentiality of Alcohol and Drug Abuse Patient Records regulations: The Federal rules restrict any use of the information to criminally investigate or prosecute any alcohol or drug abuse patient.[facility] HospitalIn the event this information is protected by the Federal Confidentiality of Alcohol and Drug Abuse Patient Records regulations: The Federal rules restrict any use of the information to criminally investigate or prosecute any alcohol or drug abuse patient.[facility] HospitalIn the event this information is protected by the Federal Confidentiality of Alcohol and Drug Abuse Patient Records regulations: The Federal rules restrict any use of the information to criminally investigate or prosecute any alcohol or drug abuse patient.[facility] HospitalIn the event this information is protected by the Federal Confidentiality of Alcohol and Drug Abuse Patient Records regulations: The Federal rules restrict any use of the information to criminally investigate or prosecute any alcohol or drug abuse patient.[facility] the event this information is protected by the Federal Confidentiality of Alcohol and Drug Abuse Patient Records regulations: The Federal rules restrict any use of the information to criminally investigate or prosecute any alcohol or drug abuse patient.[facility] HospitalIn the event this information is protected by the Federal Confidentiality of Alcohol and Drug Abuse Patient Records regulations: The Federal rules restrict any use of the information to criminally investigate or prosecute any alcohol or drug abuse patient.[facility] HospitalIn the event this information is protected by the Federal Confidentiality of Alcohol and Drug Abuse Patient Records regulations: The Federal rules restrict any use of the information to criminally investigate or prosecute any alcohol or drug abuse patient.[facility] HospitalIn the event this information is protected by the Federal Confidentiality of Alcohol and Drug Abuse Patient Records regulations: The Federal rules restrict any use of the information to criminally investigate or prosecute any alcohol or drug abuse patient.[facility] HospitalIn the event this information is protected by the Federal Confidentiality of Alcohol and Drug Abuse Patient Records regulations: The Federal rules restrict any use of the information to criminally investigate or prosecute any alcohol or drug abuse patient.[facility] HospitalIn the event this information is protected by the Federal Confidentiality of Alcohol and Drug Abuse Patient Records regulations: The Federal rules restrict any use of the information to criminally investigate or prosecute any alcohol or drug abuse patient.[facility] HospitalIn the event this information is protected by the Federal Confidentiality of Alcohol and Drug Abuse Patient Records regulations: The Federal rules restrict any use of the information to criminally investigate or prosecute any alcohol or drug abuse patient.[facility] HospitalIn the event this information is protected by the Federal Confidentiality of Alcohol and Drug Abuse Patient Records regulations: The Federal rules restrict any use of the information to criminally investigate or prosecute any alcohol or drug abuse patient.[facility] HospitalIn the event this information is protected by the Federal Confidentiality of Alcohol and Drug Abuse Patient Records regulations: The Federal rules restrict any use of the information to criminally investigate or prosecute any alcohol or drug abuse patient.[facility] HospitalIn the event this information is protected by the Federal Confidentiality of Alcohol and Drug Abuse Patient Records regulations: The Federal rules restrict any use of the information to criminally investigate or prosecute any alcohol or drug abuse patient.[facility] HospitalIn the event this information is protected by the Federal Confidentiality of Alcohol and Drug Abuse Patient Records regulations: The Federal rules restrict any use of the information to criminally investigate or prosecute any alcohol or drug abuse patient.[facility] HospitalIn the event this information is protected by the Federal Confidentiality of Alcohol and Drug Abuse Patient Records regulations: The Federal rules restrict any use of the information to criminally investigate or prosecute any alcohol or drug abuse patient.[facility] HospitalIn the event this information is protected by the Federal Confidentiality of Alcohol and Drug Abuse Patient Records regulations: The Federal rules restrict any use of the information to criminally investigate or prosecute any alcohol or drug abuse patient.[facility] HospitalIn the event this information is protected by the Federal Confidentiality of Alcohol and Drug Abuse Patient Records regulations: The Federal rules restrict any use of the information to criminally investigate or prosecute any alcohol or drug abuse patient.[facility] HospitalIn the event this information is protected by the Federal Confidentiality of Alcohol and Drug Abuse Patient Records regulations: The Federal rules restrict any use of the information to criminally investigate or prosecute any alcohol or drug abuse patient.[facility] HospitalIn the event this information is protected by the Federal Confidentiality of Alcohol and Drug Abuse Patient Records regulations: The Federal rules restrict any use of the information to criminally investigate or prosecute any alcohol or drug abuse patient.[facility] HospitalIn the event this information is protected by the Federal Confidentiality of Alcohol and Drug Abuse Patient Records regulations: The Federal rules restrict any use of the information to criminally investigate or prosecute any alcohol or drug abuse patient.[facility] HospitalIn the event this information is protected by the Federal Confidentiality of Alcohol and Drug Abuse Patient Records regulations: The Federal rules restrict any use of the information to criminally investigate or prosecute any alcohol or drug abuse patient.[facility] HospitalIn the event this information is protected by the Federal Confidentiality of Alcohol and Drug Abuse Patient Records regulations: The Federal rules restrict any use of the information to criminally investigate or prosecute any alcohol or drug abuse patient.[facility] HospitalIn the event this information is protected by the Federal Confidentiality of Alcohol and Drug Abuse Patient Records regulations: The Federal rules restrict any use of the information to criminally investigate or prosecute any alcohol or drug abuse patient.[facility] HospitalIn the event this information is protected by the Federal Confidentiality of Alcohol and Drug Abuse Patient Records regulations: The Federal rules restrict any use of the information to criminally investigate or prosecute any alcohol or drug abuse patient.[facility] HospitalIn the event this information is protected by the Federal Confidentiality of Alcohol and Drug Abuse Patient Records regulations: The Federal rules restrict any use of the information to criminally investigate or prosecute any alcohol or drug abuse patient.[facility]In the event this information is protected by the Federal Confidentiality of Alcohol and Drug Abuse Patient Records regulations: The Federal rules restrict any use of the information to criminally investigate or prosecute any alcohol or drug abuse patient.[facility] HospitalIn the event this information is protected by the Federal Confidentiality of Alcohol and Drug Abuse Patient Records regulations: The Federal rules restrict any use of the information to criminally investigate or prosecute any alcohol or drug abuse patient.[facility] HospitalIn the event this information is protected by the Federal Confidentiality of Alcohol and Drug Abuse Patient Records regulations: The Federal rules restrict any use of the information to criminally investigate or prosecute any alcohol or drug abuse patient.[facility] HospitalIn the event this information is protected by the Federal Confidentiality of Alcohol and Drug Abuse Patient Records regulations: The Federal rules restrict any use of the information to criminally investigate or prosecute any alcohol or drug abuse patient.[facility] HospitalIn the event this information is protected by the Federal Confidentiality of Alcohol and Drug Abuse Patient Records regulations: The Federal rules restrict any use of the information to criminally investigate or prosecute any alcohol or drug abuse patient.[facility] HospitalIn the event this information is protected by the Federal Confidentiality of Alcohol and Drug Abuse Patient Records regulations: The Federal rules restrict any use of the information to criminally investigate or prosecute any alcohol or drug abuse patient.[facility] HospitalIn the event this information is protected by the Federal Confidentiality of Alcohol and Drug Abuse Patient Records regulations: The Federal rules restrict any use of the information to criminally investigate or prosecute any alcohol or drug abuse patient.[facility] HospitalIn the event this information is protected by the Federal Confidentiality of Alcohol and Drug Abuse Patient Records regulations: The Federal rules restrict any use of the information to criminally investigate or prosecute any alcohol or drug abuse patient.[facility] HospitalIn the event this information is protected by the Federal Confidentiality of Alcohol and Drug Abuse Patient Records regulations: The Federal rules restrict any use of the information to criminally investigate or prosecute any alcohol or drug abuse patient.[facility] HospitalIn the event this information is protected by the Federal Confidentiality of Alcohol and Drug Abuse Patient Records regulations: The Federal rules restrict any use of the information to criminally investigate or prosecute any alcohol or drug abuse patient.[facility] HospitalIn the event this information is protected by the Federal Confidentiality of Alcohol and Drug Abuse Patient Records regulations: The Federal rules restrict any use of the information to criminally investigate or prosecute any alcohol or drug abuse patient.[facility] HospitalIn the event this information is protected by the Federal Confidentiality of Alcohol and Drug Abuse Patient Records regulations: The Federal rules restrict any use of the information to criminally investigate or prosecute any alcohol or drug abuse patient.[facility] HospitalIn the event this information is protected by the Federal Confidentiality of Alcohol and Drug Abuse Patient Records regulations: The Federal rules restrict any use of the information to criminally investigate or prosecute any alcohol or drug abuse patient.[facility] HospitalIn the event this information is protected by the Federal Confidentiality of Alcohol and Drug Abuse Patient Records regulations: The Federal rules restrict any use of the information to criminally investigate or prosecute any alcohol or drug abuse patient.[facility] HospitalIn the event this information is protected by the Federal Confidentiality of Alcohol and Drug Abuse Patient Records regulations: The Federal rules restrict any use of the information to criminally investigate or prosecute any alcohol or drug abuse patient.[facility] HospitalIn the event this information is protected by the Federal Confidentiality of Alcohol and Drug Abuse Patient Records regulations: The Federal rules restrict any use of the information to criminally investigate or prosecute any alcohol or drug abuse patient.[facility] HospitalIn the event this information is protected by the Federal Confidentiality of Alcohol and Drug Abuse Patient Records regulations: The Federal rules restrict any use of the information to criminally investigate or prosecute any alcohol or drug abuse patient.[facility] HospitalIn the event this information is protected by the Federal Confidentiality of Alcohol and Drug Abuse Patient Records regulations: The Federal rules restrict any use of the information to criminally investigate or prosecute any alcohol or drug abuse patient.[facility] HospitalIn the event this information is protected by the Federal Confidentiality of Alcohol and Drug Abuse Patient Records regulations: The Federal rules restrict any use of the information to criminally investigate or prosecute any alcohol or drug abuse patient.[facility] HospitalIn the event this information is protected by the Federal Confidentiality of Alcohol and Drug Abuse Patient Records regulations: The Federal rules restrict any use of the information to criminally investigate or prosecute any alcohol or drug abuse patient.[facility] HospitalIn the event this information is protected by the Federal Confidentiality of Alcohol and Drug Abuse Patient Records regulations: The Federal rules restrict any use of the information to criminally investigate or prosecute any alcohol or drug abuse patient.[facility] HospitalIn the event this information is protected by the Federal Confidentiality of Alcohol and Drug Abuse Patient Records regulations: The Federal rules restrict any use of the information to criminally investigate or prosecute any alcohol or drug abuse patient.[facility] HospitalIn the event this information is protected by the Federal Confidentiality of Alcohol and Drug Abuse Patient Records regulations: The Federal rules restrict any use of the information to criminally investigate or prosecute any alcohol or drug abuse patient.[facility] HospitalIn the event this information is protected by the Federal Confidentiality of Alcohol and Drug Abuse Patient Records regulations: The Federal rules restrict any use of the information to criminally investigate or prosecute any alcohol or drug abuse patient.[facility] HospitalIn the event this information is protected by the Federal Confidentiality of Alcohol and Drug Abuse Patient Records regulations: The Federal rules restrict any use of the information to criminally investigate or prosecute any alcohol or drug abuse patient.[facility] HospitalIn the event this information is protected by the Federal Confidentiality of Alcohol and Drug Abuse Patient Records regulations: The Federal rules restrict any use of the information to criminally investigate or prosecute any alcohol or drug abuse patient.[facility] HospitalIn the event this information is protected by the Federal Confidentiality of Alcohol and Drug Abuse Patient Records regulations: The Federal rules restrict any use of the information to criminally investigate or prosecute any alcohol or drug abuse patient.[facility] HospitalIn the event this information is protected by the Federal Confidentiality of Alcohol and Drug Abuse Patient Records regulations: The Federal rules restrict any use of the information to criminally investigate or prosecute any alcohol or drug abuse patient.[facility] the event this information is protected by the Federal Confidentiality of Alcohol and Drug Abuse Patient Records regulations: The Federal rules restrict any use of the information to criminally investigate or prosecute any alcohol or drug abuse patient.[facility] HospitalIn the event this information is protected by the Federal Confidentiality of Alcohol and Drug Abuse Patient Records regulations: The Federal rules restrict any use of the information to criminally investigate or prosecute any alcohol or drug abuse patient.[facility] HospitalIn the event this information is protected by the Federal Confidentiality of Alcohol and Drug Abuse Patient Records regulations: The Federal rules restrict any use of the information to criminally investigate or prosecute any alcohol or drug abuse patient.[facility] HospitalIn the event this information is protected by the Federal Confidentiality of Alcohol and Drug Abuse Patient Records regulations: The Federal rules restrict any use of the information to criminally investigate or prosecute any alcohol or drug abuse patient.[facility] HospitalIn the event this information is protected by the Federal Confidentiality of Alcohol and Drug Abuse Patient Records regulations: The Federal rules restrict any use of the information to criminally investigate or prosecute any alcohol or drug abuse patient.[facility] HospitalIn the event this information is protected by the Federal Confidentiality of Alcohol and Drug Abuse Patient Records regulations: The Federal rules restrict any use of the information to criminally investigate or prosecute any alcohol or drug abuse patient.[facility] HospitalIn the event this information is protected by the Federal Confidentiality of Alcohol and Drug Abuse Patient Records regulations: The Federal rules restrict any use of the information to criminally investigate or prosecute any alcohol or drug abuse patient.[facility] HospitalIn the event this information is protected by the Federal Confidentiality of Alcohol and Drug Abuse Patient Records regulations: The Federal rules restrict any use of the information to criminally investigate or prosecute any alcohol or drug abuse patient.[facility] HospitalIn the event this information is protected by the Federal Confidentiality of Alcohol and Drug Abuse Patient Records regulations: The Federal rules restrict any use of the information to criminally investigate or prosecute any alcohol or drug abuse patient.[facility] HospitalIn the event this information is protected by the Federal Confidentiality of Alcohol and Drug Abuse Patient Records regulations: The Federal rules restrict any use of the information to criminally investigate or prosecute any alcohol or drug abuse patient.[facility] HospitalIn the event this information is protected by the Federal Confidentiality of Alcohol and Drug Abuse Patient Records regulations: The Federal rules restrict any use of the information to criminally investigate or prosecute any alcohol or drug abuse patient.[facility] HospitalIn the event this information is protected by the Federal Confidentiality of Alcohol and Drug Abuse Patient Records regulations: The Federal rules restrict any use of the information to criminally investigate or prosecute any alcohol or drug abuse patient.[facility] HospitalIn the event this information is protected by the Federal Confidentiality of Alcohol and Drug Abuse Patient Records regulations: The Federal rules restrict any use of the information to criminally investigate or prosecute any alcohol or drug abuse patient.[facility] HospitalIn the event this information is protected by the Federal Confidentiality of Alcohol and Drug Abuse Patient Records regulations: The Federal rules restrict any use of the information to criminally investigate or prosecute any alcohol or drug abuse patient.[facility] HospitalIn the event this information is protected by the Federal Confidentiality of Alcohol and Drug Abuse Patient Records regulations: The Federal rules restrict any use of the information to criminally investigate or prosecute any alcohol or drug abuse patient.[facility] HospitalIn the event this information is protected by the Federal Confidentiality of Alcohol and Drug Abuse Patient Records regulations: The Federal rules restrict any use of the information to criminally investigate or prosecute any alcohol or drug abuse patient.[facility] HospitalIn the event this information is protected by the Federal Confidentiality of Alcohol and Drug Abuse Patient Records regulations: The Federal rules restrict any use of the information to criminally investigate or prosecute any alcohol or drug abuse patient.[facility] HospitalIn the event this information is protected by the Federal Confidentiality of Alcohol and Drug Abuse Patient Records regulations: The Federal rules restrict any use of the information to criminally investigate or prosecute any alcohol or drug abuse patient.[facility] HospitalIn the event this information is protected by the Federal Confidentiality of Alcohol and Drug Abuse Patient Records regulations: The Federal rules restrict any use of the information to criminally investigate or prosecute any alcohol or drug abuse patient.[facility] HospitalIn the event this information is protected by the Federal Confidentiality of Alcohol and Drug Abuse Patient Records regulations: The Federal rules restrict any use of the information to criminally investigate or prosecute any alcohol or drug abuse patient.[facility] HospitalIn the event this information is protected by the Federal Confidentiality of Alcohol and Drug Abuse Patient Records regulations: The Federal rules restrict any use of the information to criminally investigate or prosecute any alcohol or drug abuse patient.[facility] HospitalIn the event this information is protected by the Federal Confidentiality of Alcohol and Drug Abuse Patient Records regulations: The Federal rules restrict any use of the information to criminally investigate or prosecute any alcohol or drug abuse patient.[facility] HospitalIn the event this information is protected by the Federal Confidentiality of Alcohol and Drug Abuse Patient Records regulations: The Federal rules restrict any use of the information to criminally investigate or prosecute any alcohol or drug abuse patient.[facility] HospitalIn the event this information is protected by the Federal Confidentiality of Alcohol and Drug Abuse Patient Records regulations: The Federal rules restrict any use of the information to criminally investigate or prosecute any alcohol or drug abuse patient.[facility] HospitalIn the event this information is protected by the Federal Confidentiality of Alcohol and Drug Abuse Patient Records regulations: The Federal rules restrict any use of the information to criminally investigate or prosecute any alcohol or drug abuse patient.[facility] HospitalIn the event this information is protected by the Federal Confidentiality of Alcohol and Drug Abuse Patient Records regulations: The Federal rules restrict any use of the information to criminally investigate or prosecute any alcohol or drug abuse patient.[facility] HospitalIn the event this information is protected by the Federal Confidentiality of Alcohol and Drug Abuse Patient Records regulations: The Federal rules restrict any use of the information to criminally investigate or prosecute any alcohol or drug abuse patient.[facility] HospitalIn the event this information is protected by the Federal Confidentiality of Alcohol and Drug Abuse Patient Records regulations: The Federal rules restrict any use of the information to criminally investigate or prosecute any alcohol or drug abuse patient.[facility] HospitalIn the event this information is protected by the Federal Confidentiality of Alcohol and Drug Abuse Patient Records regulations: The Federal rules restrict any use of the information to criminally investigate or prosecute any alcohol or drug abuse patient.[facility] HospitalIn the event this information is protected by the Federal Confidentiality of Alcohol and Drug Abuse Patient Records regulations: The Federal rules restrict any use of the information to criminally investigate or prosecute any alcohol or drug abuse patient.[facility] HospitalIn the event this information is protected by the Federal Confidentiality of Alcohol and Drug Abuse Patient Records regulations: The Federal rules restrict any use of the information to criminally investigate or prosecute any alcohol or drug abuse patient.[facility] HospitalIn the event this information is protected by the Federal Confidentiality of Alcohol and Drug Abuse Patient Records regulations: The Federal rules restrict any use of the information to criminally investigate or prosecute any alcohol or drug abuse patient.[facility] HospitalIn the event this information is protected by the Federal Confidentiality of Alcohol and Drug Abuse Patient Records regulations: The Federal rules restrict any use of the information to criminally investigate or prosecute any alcohol or drug abuse patient.[facility] HospitalIn the event this information is protected by the Federal Confidentiality of Alcohol and Drug Abuse Patient Records regulations: The Federal rules restrict any use of the information to criminally investigate or prosecute any alcohol or drug abuse patient.[facility] HospitalIn the event this information is protected by the Federal Confidentiality of Alcohol and Drug Abuse Patient Records regulations: The Federal rules restrict any use of the information to criminally investigate or prosecute any alcohol or drug abuse patient.[facility] HospitalIn the event this information is protected by the Federal Confidentiality of Alcohol and Drug Abuse Patient Records regulations: The Federal rules restrict any use of the information to criminally investigate or prosecute any alcohol or drug abuse patient.[facility] HospitalIn the event this information is protected by the Federal Confidentiality of Alcohol and Drug Abuse Patient Records regulations: The Federal rules restrict any use of the information to criminally investigate or prosecute any alcohol or drug abuse patient.[facility] HospitalIn the event this information is protected by the Federal Confidentiality of Alcohol and Drug Abuse Patient Records regulations: The Federal rules restrict any use of the information to criminally investigate or prosecute any alcohol or drug abuse patient.[facility] HospitalIn the event this information is protected by the Federal Confidentiality of Alcohol and Drug Abuse Patient Records regulations: The Federal rules restrict any use of the information to criminally investigate or prosecute any alcohol or drug abuse patient.[facility] HospitalIn the event this information is protected by the Federal Confidentiality of Alcohol and Drug Abuse Patient Records regulations: The Federal rules restrict any use of the information to criminally investigate or prosecute any alcohol or drug abuse patient.[facility] HospitalIn the event this information is protected by the Federal Confidentiality of Alcohol and Drug Abuse Patient Records regulations: The Federal rules restrict any use of the information to criminally investigate or prosecute any alcohol or drug abuse patient.[facility] HospitalIn the event this information is protected by the Federal Confidentiality of Alcohol and Drug Abuse Patient Records regulations: The Federal rules restrict any use of the information to criminally investigate or prosecute any alcohol or drug abuse patient.[facility] HospitalIn the event this information is protected by the Federal Confidentiality of Alcohol and Drug Abuse Patient Records regulations: The Federal rules restrict any use of the information to criminally investigate or prosecute any alcohol or drug abuse patient.[facility] HospitalIn the event this information is protected by the Federal Confidentiality of Alcohol and Drug Abuse Patient Records regulations: The Federal rules restrict any use of the information to criminally investigate or prosecute any alcohol or drug abuse patient.[facility] HospitalIn the event this information is protected by the Federal Confidentiality of Alcohol and Drug Abuse Patient Records regulations: The Federal rules restrict any use of the information to criminally investigate or prosecute any alcohol or drug abuse patient.[facility] HospitalIn the event this information is protected by the Federal Confidentiality of Alcohol and Drug Abuse Patient Records regulations: The Federal rules restrict any use of the information to criminally investigate or prosecute any alcohol or drug abuse patient.[facility] HospitalIn the event this information is protected by the Federal Confidentiality of Alcohol and Drug Abuse Patient Records regulations: The Federal rules restrict any use of the information to criminally investigate or prosecute any alcohol or drug abuse patient.[facility] HospitalIn the event this information is protected by the Federal Confidentiality of Alcohol and Drug Abuse Patient Records regulations: The Federal rules restrict any use of the information to criminally investigate or prosecute any alcohol or drug abuse patient.[facility] HospitalIn the event this information is protected by the Federal Confidentiality of Alcohol and Drug Abuse Patient Records regulations: The Federal rules restrict any use of the information to criminally investigate or prosecute any alcohol or drug abuse patient.[facility] HospitalIn the event this information is protected by the Federal Confidentiality of Alcohol and Drug Abuse Patient Records regulations: The Federal rules restrict any use of the information to criminally investigate or prosecute any alcohol or drug abuse patient.[facility] the event this information is protected by the Federal Confidentiality of Alcohol and Drug Abuse Patient Records regulations: The Federal rules restrict any use of the information to criminally investigate or prosecute any alcohol or drug abuse patient.[facility] HospitalIn the event this information is protected by the Federal Confidentiality of Alcohol and Drug Abuse Patient Records regulations: The Federal rules restrict any use of the information to criminally investigate or prosecute any alcohol or drug abuse patient.[facility] HospitalIn the event this information is protected by the Federal Confidentiality of Alcohol and Drug Abuse Patient Records regulations: The Federal rules restrict any use of the information to criminally investigate or prosecute any alcohol or drug abuse patient.[facility] HospitalIn the event this information is protected by the Federal Confidentiality of Alcohol and Drug Abuse Patient Records regulations: The Federal rules restrict any use of the information to criminally investigate or prosecute any alcohol or drug abuse patient.[facility] HospitalIn the event this information is protected by the Federal Confidentiality of Alcohol and Drug Abuse Patient Records regulations: The Federal rules restrict any use of the information to criminally investigate or prosecute any alcohol or drug abuse patient.[facility] HospitalIn the event this information is protected by the Federal Confidentiality of Alcohol and Drug Abuse Patient Records regulations: The Federal rules restrict any use of the information to criminally investigate or prosecute any alcohol or drug abuse patient.[facility] HospitalIn the event this information is protected by the Federal Confidentiality of Alcohol and Drug Abuse Patient Records regulations: The Federal rules restrict any use of the information to criminally investigate or prosecute any alcohol or drug abuse patient.[facility] HospitalIn the event this information is protected by the Federal Confidentiality of Alcohol and Drug Abuse Patient Records regulations: The Federal rules restrict any use of the information to criminally investigate or prosecute any alcohol or drug abuse patient.[facility]In the event this information is protected by the Federal Confidentiality of Alcohol and Drug Abuse Patient Records regulations: The Federal rules restrict any use of the information to criminally investigate or prosecute any alcohol or drug abuse patient.[facility] HospitalIn the event this information is protected by the Federal Confidentiality of Alcohol and Drug Abuse Patient Records regulations: The Federal rules restrict any use of the information to criminally investigate or prosecute any alcohol or drug abuse patient.[facility] HospitalIn the event this information is protected by the Federal Confidentiality of Alcohol and Drug Abuse Patient Records regulations: The Federal rules restrict any use of the information to criminally investigate or prosecute any alcohol or drug abuse patient.[facility] HospitalIn the event this information is protected by the Federal Confidentiality of Alcohol and Drug Abuse Patient Records regulations: The Federal rules restrict any use of the information to criminally investigate or prosecute any alcohol or drug abuse patient.[facility] HospitalIn the event this information is protected by the Federal Confidentiality of Alcohol and Drug Abuse Patient Records regulations: The Federal rules restrict any use of the information to criminally investigate or prosecute any alcohol or drug abuse patient.[facility] HospitalIn the event this information is protected by the Federal Confidentiality of Alcohol and Drug Abuse Patient Records regulations: The Federal rules restrict any use of the information to criminally investigate or prosecute any alcohol or drug abuse patient.[facility] HospitalIn the event this information is protected by the Federal Confidentiality of Alcohol and Drug Abuse Patient Records regulations: The Federal rules restrict any use of the information to criminally investigate or prosecute any alcohol or drug abuse patient.[facility] HospitalIn the event this information is protected by the Federal Confidentiality of Alcohol and Drug Abuse Patient Records regulations: The Federal rules restrict any use of the information to criminally investigate or prosecute any alcohol or drug abuse patient.[facility] HospitalIn the event this information is protected by the Federal Confidentiality of Alcohol and Drug Abuse Patient Records regulations: The Federal rules restrict any use of the information to criminally investigate or prosecute any alcohol or drug abuse patient.[facility] HospitalIn the event this information is protected by the Federal Confidentiality of Alcohol and Drug Abuse Patient Records regulations: The Federal rules restrict any use of the information to criminally investigate or prosecute any alcohol or drug abuse patient.[facility] HospitalIn the event this information is protected by the Federal Confidentiality of Alcohol and Drug Abuse Patient Records regulations: The Federal rules restrict any use of the information to criminally investigate or prosecute any alcohol or drug abuse patient.[facility] HospitalIn the event this information is protected by the Federal Confidentiality of Alcohol and Drug Abuse Patient Records regulations: The Federal rules restrict any use of the information to criminally investigate or prosecute any alcohol or drug abuse patient.[facility] HospitalIn the event this information is protected by the Federal Confidentiality of Alcohol and Drug Abuse Patient Records regulations: The Federal rules restrict any use of the information to criminally investigate or prosecute any alcohol or drug abuse patient.[facility] HospitalIn the event this information is protected by the Federal Confidentiality of Alcohol and Drug Abuse Patient Records regulations: The Federal rules restrict any use of the information to criminally investigate or prosecute any alcohol or drug abuse patient.[facility] HospitalIn the event this information is protected by the Federal Confidentiality of Alcohol and Drug Abuse Patient Records regulations: The Federal rules restrict any use of the information to criminally investigate or prosecute any alcohol or drug abuse patient.[facility] HospitalIn the event this information is protected by the Federal Confidentiality of Alcohol and Drug Abuse Patient Records regulations: The Federal rules restrict any use of the information to criminally investigate or prosecute any alcohol or drug abuse patient.[facility] HospitalIn the event this information is protected by the Federal Confidentiality of Alcohol and Drug Abuse Patient Records regulations: The Federal rules restrict any use of the information to criminally investigate or prosecute any alcohol or drug abuse patient.[facility] HospitalIn the event this information is protected by the Federal Confidentiality of Alcohol and Drug Abuse Patient Records regulations: The Federal rules restrict any use of the information to criminally investigate or prosecute any alcohol or drug abuse patient.[facility] HospitalIn the event this information is protected by the Federal Confidentiality of Alcohol and Drug Abuse Patient Records regulations: The Federal rules restrict any use of the information to criminally investigate or prosecute any alcohol or drug abuse patient.[facility] HospitalIn the event this information is protected by the Federal Confidentiality of Alcohol and Drug Abuse Patient Records regulations: The Federal rules restrict any use of the information to criminally investigate or prosecute any alcohol or drug abuse patient.[facility] HospitalIn the event this information is protected by the Federal Confidentiality of Alcohol and Drug Abuse Patient Records regulations: The Federal rules restrict any use of the information to criminally investigate or prosecute any alcohol or drug abuse patient.[facility] HospitalIn the event this information is protected by the Federal Confidentiality of Alcohol and Drug Abuse Patient Records regulations: The Federal rules restrict any use of the information to criminally investigate or prosecute any alcohol or drug abuse patient.[facility] HospitalIn the event this information is protected by the Federal Confidentiality of Alcohol and Drug Abuse Patient Records regulations: The Federal rules restrict any use of the information to criminally investigate or prosecute any alcohol or drug abuse patient.[facility] HospitalIn the event this information is protected by the Federal Confidentiality of Alcohol and Drug Abuse Patient Records regulations: The Federal rules restrict any use of the information to criminally investigate or prosecute any alcohol or drug abuse patient.[facility] HospitalIn the event this information is protected by the Federal Confidentiality of Alcohol and Drug Abuse Patient Records regulations: The Federal rules restrict any use of the information to criminally investigate or prosecute any alcohol or drug abuse patient.[facility] HospitalIn the event this information is protected by the Federal Confidentiality of Alcohol and Drug Abuse Patient Records regulations: The Federal rules restrict any use of the information to criminally investigate or prosecute any alcohol or drug abuse patient.[facility] HospitalIn the event this information is protected by the Federal Confidentiality of Alcohol and Drug Abuse Patient Records regulations: The Federal rules restrict any use of the information to criminally investigate or prosecute any alcohol or drug abuse patient.[facility] HospitalIn the event this information is protected by the Federal Confidentiality of Alcohol and Drug Abuse Patient Records regulations: The Federal rules restrict any use of the information to criminally investigate or prosecute any alcohol or drug abuse patient.[facility] HospitalIn the event this information is protected by the Federal Confidentiality of Alcohol and Drug Abuse Patient Records regulations: The Federal rules restrict any use of the information to criminally investigate or prosecute any alcohol or drug abuse patient.[facility] HospitalIn the event this information is protected by the Federal Confidentiality of Alcohol and Drug Abuse Patient Records regulations: The Federal rules restrict any use of the information to criminally investigate or prosecute any alcohol or drug abuse patient.[facility] HospitalIn the event this information is protected by the Federal Confidentiality of Alcohol and Drug Abuse Patient Records regulations: The Federal rules restrict any use of the information to criminally investigate or prosecute any alcohol or drug abuse patient.[facility] HospitalIn the event this information is protected by the Federal Confidentiality of Alcohol and Drug Abuse Patient Records regulations: The Federal rules restrict any use of the information to criminally investigate or prosecute any alcohol or drug abuse patient.[facility] HospitalIn the event this information is protected by the Federal Confidentiality of Alcohol and Drug Abuse Patient Records regulations: The Federal rules restrict any use of the information to criminally investigate or prosecute any alcohol or drug abuse patient.[facility] HospitalIn the event this information is protected by the Federal Confidentiality of Alcohol and Drug Abuse Patient Records regulations: The Federal rules restrict any use of the information to criminally investigate or prosecute any alcohol or drug abuse patient.[facility] HospitalIn the event this information is protected by the Federal Confidentiality of Alcohol and Drug Abuse Patient Records regulations: The Federal rules restrict any use of the information to criminally investigate or prosecute any alcohol or drug abuse patient.[facility] HospitalIn the event this information is protected by the Federal Confidentiality of Alcohol and Drug Abuse Patient Records regulations: The Federal rules restrict any use of the information to criminally investigate or prosecute any alcohol or drug abuse patient.[facility] HospitalIn the event this information is protected by the Federal Confidentiality of Alcohol and Drug Abuse Patient Records regulations: The Federal rules restrict any use of the information to criminally investigate or prosecute any alcohol or drug abuse patient.[facility] HospitalIn the event this information is protected by the Federal Confidentiality of Alcohol and Drug Abuse Patient Records regulations: The Federal rules restrict any use of the information to criminally investigate or prosecute any alcohol or drug abuse patient.[facility] HospitalIn the event this information is protected by the Federal Confidentiality of Alcohol and Drug Abuse Patient Records regulations: The Federal rules restrict any use of the information to criminally investigate or prosecute any alcohol or drug abuse patient.[facility] HospitalIn the event this information is protected by the Federal Confidentiality of Alcohol and Drug Abuse Patient Records regulations: The Federal rules restrict any use of the information to criminally investigate or prosecute any alcohol or drug abuse patient.[facility] HospitalIn the event this information is protected by the Federal Confidentiality of Alcohol and Drug Abuse Patient Records regulations: The Federal rules restrict any use of the information to criminally investigate or prosecute any alcohol or drug abuse patient.[facility] HospitalIn the event this information is protected by the Federal Confidentiality of Alcohol and Drug Abuse Patient Records regulations: The Federal rules restrict any use of the information to criminally investigate or prosecute any alcohol or drug abuse patient.[facility] the event this information is protected by the Federal Confidentiality of Alcohol and Drug Abuse Patient Records regulations: The Federal rules restrict any use of the information to criminally investigate or prosecute any alcohol or drug abuse patient.[facility] HospitalIn the event this information is protected by the Federal Confidentiality of Alcohol and Drug Abuse Patient Records regulations: The Federal rules restrict any use of the information to criminally investigate or prosecute any alcohol or drug abuse patient.[facility] HospitalIn the event this information is protected by the Federal Confidentiality of Alcohol and Drug Abuse Patient Records regulations: The Federal rules restrict any use of the information to criminally investigate or prosecute any alcohol or drug abuse patient.[facility] HospitalIn the event this information is protected by the Federal Confidentiality of Alcohol and Drug Abuse Patient Records regulations: The Federal rules restrict any use of the information to criminally investigate or prosecute any alcohol or drug abuse patient.[facility] HospitalIn the event this information is protected by the Federal Confidentiality of Alcohol and Drug Abuse Patient Records regulations: The Federal rules restrict any use of the information to criminally investigate or prosecute any alcohol or drug abuse patient.[facility] HospitalIn the event this information is protected by the Federal Confidentiality of Alcohol and Drug Abuse Patient Records regulations: The Federal rules restrict any use of the information to criminally investigate or prosecute any alcohol or drug abuse patient.[facility] HospitalIn the event this information is protected by the Federal Confidentiality of Alcohol and Drug Abuse Patient Records regulations: The Federal rules restrict any use of the information to criminally investigate or prosecute any alcohol or drug abuse patient.[facility] HospitalIn the event this information is protected by the Federal Confidentiality of Alcohol and Drug Abuse Patient Records regulations: The Federal rules restrict any use of the information to criminally investigate or prosecute any alcohol or drug abuse patient.[facility] HospitalIn the event this information is protected by the Federal Confidentiality of Alcohol and Drug Abuse Patient Records regulations: The Federal rules restrict any use of the information to criminally investigate or prosecute any alcohol or drug abuse patient.[facility] HospitalIn the event this information is protected by the Federal Confidentiality of Alcohol and Drug Abuse Patient Records regulations: The Federal rules restrict any use of the information to criminally investigate or prosecute any alcohol or drug abuse patient.[facility] HospitalIn the event this information is protected by the Federal Confidentiality of Alcohol and Drug Abuse Patient Records regulations: The Federal rules restrict any use of the information to criminally investigate or prosecute any alcohol or drug abuse patient.[facility] HospitalIn the event this information is protected by the Federal Confidentiality of Alcohol and Drug Abuse Patient Records regulations: The Federal rules restrict any use of the information to criminally investigate or prosecute any alcohol or drug abuse patient.[facility] HospitalIn the event this information is protected by the Federal Confidentiality of Alcohol and Drug Abuse Patient Records regulations: The Federal rules restrict any use of the information to criminally investigate or prosecute any alcohol or drug abuse patient.[facility] HospitalIn the event this information is protected by the Federal Confidentiality of Alcohol and Drug Abuse Patient Records regulations: The Federal rules restrict any use of the information to criminally investigate or prosecute any alcohol or drug abuse patient.[facility] HospitalIn the event this information is protected by the Federal Confidentiality of Alcohol and Drug Abuse Patient Records regulations: The Federal rules restrict any use of the information to criminally investigate or prosecute any alcohol or drug abuse patient.[facility] HospitalIn the event this information is protected by the Federal Confidentiality of Alcohol and Drug Abuse Patient Records regulations: The Federal rules restrict any use of the information to criminally investigate or prosecute any alcohol or drug abuse patient.[facility] HospitalIn the event this information is protected by the Federal Confidentiality of Alcohol and Drug Abuse Patient Records regulations: The Federal rules restrict any use of the information to criminally investigate or prosecute any alcohol or drug abuse patient.[facility] HospitalIn the event this information is protected by the Federal Confidentiality of Alcohol and Drug Abuse Patient Records regulations: The Federal rules restrict any use of the information to criminally investigate or prosecute any alcohol or drug abuse patient.[facility] HospitalIn the event this information is protected by the Federal Confidentiality of Alcohol and Drug Abuse Patient Records regulations: The Federal rules restrict any use of the information to criminally investigate or prosecute any alcohol or drug abuse patient.[facility] HospitalIn the event this information is protected by the Federal Confidentiality of Alcohol and Drug Abuse Patient Records regulations: The Federal rules restrict any use of the information to criminally investigate or prosecute any alcohol or drug abuse patient.[facility] HospitalIn the event this information is protected by the Federal Confidentiality of Alcohol and Drug Abuse Patient Records regulations: The Federal rules restrict any use of the information to criminally investigate or prosecute any alcohol or drug abuse patient.[facility] HospitalIn the event this information is protected by the Federal Confidentiality of Alcohol and Drug Abuse Patient Records regulations: The Federal rules restrict any use of the information to criminally investigate or prosecute any alcohol or drug abuse patient.[facility] HospitalIn the event this information is protected by the Federal Confidentiality of Alcohol and Drug Abuse Patient Records regulations: The Federal rules restrict any use of the information to criminally investigate or prosecute any alcohol or drug abuse patient.[facility] HospitalIn the event this information is protected by the Federal Confidentiality of Alcohol and Drug Abuse Patient Records regulations: The Federal rules restrict any use of the information to criminally investigate or prosecute any alcohol or drug abuse patient.[facility] HospitalIn the event this information is protected by the Federal Confidentiality of Alcohol and Drug Abuse Patient Records regulations: The Federal rules restrict any use of the information to criminally investigate or prosecute any alcohol or drug abuse patient.[facility] HospitalIn the event this information is protected by the Federal Confidentiality of Alcohol and Drug Abuse Patient Records regulations: The Federal rules restrict any use of the information to criminally investigate or prosecute any alcohol or drug abuse patient.[facility] HospitalIn the event this information is protected by the Federal Confidentiality of Alcohol and Drug Abuse Patient Records regulations: The Federal rules restrict any use of the information to criminally investigate or prosecute any alcohol or drug abuse patient.[facility] HospitalIn the event this information is protected by the Federal Confidentiality of Alcohol and Drug Abuse Patient Records regulations: The Federal rules restrict any use of the information to criminally investigate or prosecute any alcohol or drug abuse patient.[facility] HospitalIn the event this information is protected by the Federal Confidentiality of Alcohol and Drug Abuse Patient Records regulations: The Federal rules restrict any use of the information to criminally investigate or prosecute any alcohol or drug abuse patient.[facility] HospitalIn the event this information is protected by the Federal Confidentiality of Alcohol and Drug Abuse Patient Records regulations: The Federal rules restrict any use of the information to criminally investigate or prosecute any alcohol or drug abuse patient.[facility] HospitalIn the event this information is protected by the Federal Confidentiality of Alcohol and Drug Abuse Patient Records regulations: The Federal rules restrict any use of the information to criminally investigate or prosecute any alcohol or drug abuse patient.[facility] HospitalIn the event this information is protected by the Federal Confidentiality of Alcohol and Drug Abuse Patient Records regulations: The Federal rules restrict any use of the information to criminally investigate or prosecute any alcohol or drug abuse patient.[facility] HospitalIn the event this information is protected by the Federal Confidentiality of Alcohol and Drug Abuse Patient Records regulations: The Federal rules restrict any use of the information to criminally investigate or prosecute any alcohol or drug abuse patient.[facility] HospitalIn the event this information is protected by the Federal Confidentiality of Alcohol and Drug Abuse Patient Records regulations: The Federal rules restrict any use of the information to criminally investigate or prosecute any alcohol or drug abuse patient.[facility] HospitalIn the event this information is protected by the Federal Confidentiality of Alcohol and Drug Abuse Patient Records regulations: The Federal rules restrict any use of the information to criminally investigate or prosecute any alcohol or drug abuse patient.[facility] HospitalIn the event this information is protected by the Federal Confidentiality of Alcohol and Drug Abuse Patient Records regulations: The Federal rules restrict any use of the information to criminally investigate or prosecute any alcohol or drug abuse patient.[facility] HospitalIn the event this information is protected by the Federal Confidentiality of Alcohol and Drug Abuse Patient Records regulations: The Federal rules restrict any use of the information to criminally investigate or prosecute any alcohol or drug abuse patient.[facility] HospitalIn the event this information is protected by the Federal Confidentiality of Alcohol and Drug Abuse Patient Records regulations: The Federal rules restrict any use of the information to criminally investigate or prosecute any alcohol or drug abuse patient.[facility] HospitalIn the event this information is protected by the Federal Confidentiality of Alcohol and Drug Abuse Patient Records regulations: The Federal rules restrict any use of the information to criminally investigate or prosecute any alcohol or drug abuse patient.[facility] HospitalIn the event this information is protected by the Federal Confidentiality of Alcohol and Drug Abuse Patient Records regulations: The Federal rules restrict any use of the information to criminally investigate or prosecute any alcohol or drug abuse patient.[facility] HospitalIn the event this information is protected by the Federal Confidentiality of Alcohol and Drug Abuse Patient Records regulations: The Federal rules restrict any use of the information to criminally investigate or prosecute any alcohol or drug abuse patient.[facility] HospitalIn the event this information is protected by the Federal Confidentiality of Alcohol and Drug Abuse Patient Records regulations: The Federal rules restrict any use of the information to criminally investigate or prosecute any alcohol or drug abuse patient.[facility] HospitalIn the event this information is protected by the Federal Confidentiality of Alcohol and Drug Abuse Patient Records regulations: The Federal rules restrict any use of the information to criminally investigate or prosecute any alcohol or drug abuse patient.[facility] HospitalIn the event this information is protected by the Federal Confidentiality of Alcohol and Drug Abuse Patient Records regulations: The Federal rules restrict any use of the information to criminally investigate or prosecute any alcohol or drug abuse patient.[facility] the event this information is protected by the Federal Confidentiality of Alcohol and Drug Abuse Patient Records regulations: The Federal rules restrict any use of the information to criminally investigate or prosecute any alcohol or drug abuse patient.[facility] Hospital[facility] the event this information is protected by the Federal Confidentiality of Alcohol and Drug Abuse Patient Records regulations: The Federal rules restrict any use of the information to criminally investigate or prosecute any alcohol or drug abuse patient.[facility] Reason for Visit (unrecogniz ed section and content) Reason Comments Consult Specialty Diagnoses / Procedures Referred By Contac t Referred To Contact CT IMAGING Diagnoses Chronic pain of left knee Procedures CT KNEE WO IVCON LEFT CT LOWER EXTREMITY W/O CONTRAST MATERIAL Heath Delgado MD [address] [address] [address] Imaging [facility] Referral ID Status Reason Start Date Expiration Date Visits Requested Visits Authorized [id number] Authorized Auto-Generate d Referral Patient Cleared - Qualified HCAP/501/FA 08/01/2023 10/30/2023 99 99 Reason Comments Physical Therapy Specialty Diagnoses / Procedures Referred By Contac t Referred To Contact [facility] DEPARTMENT Diagnoses PT PRE QUALIFIED FOR 100%FAP Procedures PT PRE QUALIFIED FOR 100%FAP [facility] [address] [place] [address] [facility] [address] Referral ID Status Reason Start Date Expiration Date Visits Requested Visits Authorized [id number] Authorized Financial Clearance Required - Self Pay Patient Cleared - Qualified HCAP/501/FA Referred for EDUARDO 11/07/2023 02/05/2024 99 99 Reason Comments PT Eval Reason Comments Radiology NM Reason Comments Follow Up Knee Pain Left Specialty Diagnoses / Procedures Referred By Contac t Referred To Contact [facility] Diagnoses ER follow up Procedures ER follow up Self [address] [place] [address] [place] [address] Referral ID Status Reason Start Date Expiration Date Visits Requested Visits Authorized [id number] Authorized Financial Clearance Required - Self Pay Patient Cleared - Qualified 100% FAS 04/13/2023 07/12/2023 99 99 Reason Comments New Pain Specialty Diagnoses / Procedures Referred By Contac t Referred To Contact INTERNAL MEDICINE Diagnoses ER follow up Procedures ER follow up Self [address] [place] [address] [place] [address] Reason Comments Knee Pain New Specialty Diagnoses / Procedures Referred By Contac t Referred To Contact Diagnoses new patient to establish care Procedures new patient Jossy Natarajan, SUPERSONIC ENGINEER.CERAMIC COATER MACHINE [address] [place] [address] [facility] Referral ID Status Reason Start Date Expiration Date Visits Requested Visits Authorized [id number] Authorized Patient Cleared - Qualified 100% FAS 11/18/2021 02/16/2022 99 99 Reason Comments Blood Pressure Reason Comments Dental Problem (RT) bottom tooth, l ump on jaw pain rated 10, x1 day Ear Problem (RT) ear pain 6 Specialty Diagnoses / Procedures Referred By Sandy douglas Referred To Contact [facility] Diagnoses Tooth Pain, with swelling Procedures [facility] [place] Conti, SUPERSONIC ENGINEER.CERAMIC COATER MACHINE [address] [place] [address] [facility] [address] [place] [address] Referral ID Status Reason Start Date Expiration Date Visits Requested Visits Authorized [id number] 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 [...] Comments Home Care Elevated BP 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 Reason Onset Date [...] TO PHYSICAL THERAPY Monica Venegas PA-C [address] [place] [address] [employer] [address] [place] [address] Referral ID Status Reason Start Date Expiration Date Visits Requested Visits Authorized [id number] Authorized Financial Clearance Required - Self Pay [...] knee arthroplasty Procedures NOEMY ESTABLISH Self Miguel Laguna MD [address] [place] [address] Referral ID Status Reason Start Date Expiration Date Visits Requested Visits Authorized [id number] Authorized Patient Cleared - Qualified 100% FAS [...] F/U Specialty Diagnoses / Procedures Referred By Sandy t Referred To Contact Diagnoses X-Ray right hip Procedures X-Ray Monica Venegas PA-C [address] [place] [address] [facility] Referral ID Status Reason Start Date Expiration Date Visits Requested Visits Authorized [id number] Authorized Patient Cleared - Qualified 100% FAS 08/01/2022 10/30/2022 99 99 Reason Onset Date Comments Transition Of Care 09/02/2022 D/C (AMA) fro [facility] 09/01/22 Reason Onset Date Comments Transition Of Care 09/13/2022 TCM 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 Reason Onset Date Comments Transition Of Care 09/23/2022 TCM Follow up Reason Comments Hospital F/U Reason Onset Date Comments Refill Request 10/30/2022 Reason Comments Consult Kidney Stones Specialty Diagnoses / Procedures Referred By Sandy t Referred To Contact Urology / [facility] DEPARTMENT Diagnoses Left flank pain Bilateral renal stones Procedures CONSULT TO UROLOGY OFFICE/OUTPATIENT NEW HIGH MDM 60-74 MINUTES Jossy Natarajan, SUPERSONIC ENGINEER.CERAMIC COATER MACHINE [address] [place] [address] Ascencion Villalba PA-C [address] [place] [address] Referral ID Status Reason Start Date Expiration Date V isits Requested Visits Authorized [id number] Closed PCP Requested Referral 10/24/2022 10/24/2023 1 [...] KIDNEY/BLADDER US RETROPERITONEAL REAL TIME W/IMAGE COMPLETE Ascencion Villalba PA-C [address] [place] [address] [facility] [place] [address] Referral ID Status Reason Start Date Expiration Date V isits Requested Visits Authorized [id number] Closed Auto-Generate d Referral 11/04/2022 12/04/2023 1 1 Reason Comments Radiology US Specialty Diagnoses / Procedures Referred By Contac t Referred To Contact US IMAGING Diagnoses Renal cyst Procedures US KIDNEY/BLADDER US RETROPERITONEAL REAL TIME W/IMAGE COMPLETE Kt Mortensen MD [address] [address] [facility] [place] [address] Referral ID Status Reason Start Date Expiration Date V isits Requested Visits Authorized [id number] Closed Auto-Generate d Referral 12/26/2022 03/19/2023 1 1 Reason Comments 4 week f/u HTN Reason Onset Date Comments Refill Request 01/26/2023 Reason Comments CARD New Patient Consult Uncontrolled hy pertension Specialty Diagnoses / Procedures Referred By Sandy t Referred To Contact Cardiology / CARDIOLOGY Diagnoses new pt referred by Jossy Natarajan APRN.CERAMIC COATER MACHINE for Uncontrolled hypertension Procedures OFFICE/OUTPATIENT NEW MODERATE MDM 45-59 MINUTES NEW PATIENT Self Moisés Munguia MD [address] [place] [address] Referral ID Status Reason Start Date Expiration Date Visits Re quested Visits Authorized [id number] Closed 03/20/2022 03/19/2023 1 1 Reason Comments No Show Reason Comments pulled hamstring Location: left hamst ring Pain scale: 8-9Duration: 1 weekDescription: stabbing, aching , and pullingTreatment: medication, ice Reason Onset Date Comments Refill Request 04/27/2023 Reason Onset Date Comments Refill Request 05/08/2023 Reason Comments New Patient Evaluation Knee Pain Left Reason Onset Date Comments Refill Request 05/26/2023 Reason Onset Date Comments Refill Request 06/01/2023 Reason Onset Date Comments Refill Request 06/08/2023 Reason Onset Date Comments Refill Request 06/21/2023 Reason Onset Date Comments Refill Request 06/27/2023 Reason Onset Date Comments Refill Request 07/05/2023 Reason Comments Follow up Location: left leg P ain scale: 10Duration: couple monthsDescription: surgery isn't till September 17 but pain is intense Treatment: medication Referral ID Status Reason Start Date Expiration Date V isits Requested Visits Authorized [id number] Closed Financial Clearance Required - Self Pay Patient Cleared - Qualified 100% FAS 04/13/2023 07/12/2023 99 99 Reason Onset Date Comments Refill Request 07/15/2023 Reason Onset Date Comments Refill Request 07/22/2023 Reason Onset Date Comments Refill Request 07/29/2023 Reason Onset Date Comments Refill Request 08/05/2023 Reason Onset Date Comments Refill Request 08/11/2023 Reason Onset Date Comments Refill Request 08/24/2023 Reason Comments Pre-op Cardiac Reason Comments Radiology CT Reason Onset Date Comments Refill Request 09/07/2023 Specialty Diagnoses / Procedures Referred By Contdarell t Referred To Contact CT IMAGING Diagnoses Chronic pain of left knee Procedures CT KNEE WO IVCON LEFT CT LOWER EXTREMITY W/O CONTRAST MATERIAL Heath Delgado MD [address] [address] [place] [address] Reason Comments Home Care Delay in P.T. Start of care Reason Comments Home Care P.T. Start of Care Reason Onset Date Comments Refill Request 09/24/2023 Reason Onset Date Comments Refill Request 09/22/2023 Reason Comments Home Care Unmade PT visit Reason Onset Date Comments Refill Request 09/29/2023 Reason Comments Home Care Bandage removal Reason Comments Knee Replacement Post Op Reason Onset Date Comments Refill Request 10/08/2023 Reason Comments Established Patient Reason Onset Date Comments Refill Request 10/19/2023 Reason Onset Date Comments Refill Request 10/26/2023 Reason Onset Date Comments Refill Request 10/27/2023 Reason Onset Date Comments Refill Request 11/02/2023 Reason Onset Date Comments Refill Request 11/07/2023 Reason Onset Date Comments Refill Request 11/16/2023 Reason Onset Date Comments Refill Request 11/23/2023 Reason Comments Follow Up Knee Replacement Reason Onset Date Comments Refill Request 11/30/2023 Reason Onset Date Comments Refill Request 12/07/2023 Reason Onset Date Comments Refill Request 12/13/2023 Reason Onset Date Comments Refill Request 12/19/2023 Reason Onset Date Comments Refill Request 12/26/2023 Reason Onset Date Comments Refill Request 01/02/2024 Reason Onset Date Comments Refill Request 01/08/2024 Care Teams (unrecognized sec tion and content) Sand Caster Relationship Specialty Start Date End Date Estefania Guardado PCP - General Family Practice 08/10/15 Sand Caster Relationship Specialty Start Date End Date Estefania Guardado PCP - General Family Practice 08/10/15 Sand Caster Relationship Specialty Start Date End Date Estefania Guardado PCP - General Family Practice 08/10/15 Sand Caster Relationship Specialty Start Date End Date Estefania Guardado PCP - General Family Practice 08/10/15 Cecilio Jackson, [facility] [address] [place] [address] Specialty Production Supply Equipment Tender Orthopedics 11/03/21 01/11/22 Sand Caster Relationship Specialty Start Date End Date Estefania Guardado PCP - General Family Practice 08/10/15 Cecilio Jackson, [facility] [address] [place] [address] Specialty Production Supply Equipment Tender Orthopedics 11/03/21 01/11/22 Sand Caster Relationship Specialty Start Date End Date Estefania Guardado PCP - General Family Practice 08/10/15 Sissen, Cecilio, [facility] [address] [place] [address] Specialty Production Supply Equipment Tender Orthopedics 11/03/21 01/11/22 Sand Caster Relationship Specialty Start Date End Date Sissen, Cecilio, [facility] [address] [place] [address] Specialty Production Supply Equipment Tender Orthopedics 11/03/2112/19 Sand Caster Relationship Specialty Start Date End Date Estefania Guardado PCP - General Family Practice 08/10/15 11/14/21 Sissen, Cecilio, [facility] [address] [place] [address] Specialty Production Supply Equipment Tender Orthopedics 11/03/21 01/11/22 Sand Caster Relationship Specialty Start Date End Date Sissen, Cecilio, [facility] [address] [place] [address] Specialty Production Supply Equipment Tender Orthopedics 11/03/2112/19 Sand Caster Relationship Specialty Start Date End Date Sissen, Cecilio, [facility] [address] [place] [address] Specialty Production Supply Equipment Tender Orthopedics 11/03/2112/19 Sand Caster Relationship Specialty Start Date End Date Jossy Natarajan APRN.CERAMIC COATER MACHINE [address] [place] [address] PCP - General Family Practice 12/01/21 Sissen, Cecilio, [facility] [address] [place] [address] Specialty Production Supply Equipment Tender Orthopedics 11/03/21 01/11/22 Israel Santacruz PA-C [address] [place] [address] Referring Orthopedics 12/01/21 Miguel Laguna MD [address] [place] [address] Home Care Provider Orthopedics 12/01/21 Sand Caster Relationship Specialty Start Date End Date Jossy Natarajan APRN.CERAMIC COATER MACHINE [address] [place] [address] PCP - General Family Practice 12/01/21 Cecilio Jackson, [facility] [address] [place] [address] Specialty Production Supply Equipment Tender Orthopedics 11/03/21 01/11/22 Israel Santacruz PA-C [address] [place] [address] Referring Orthopedics 12/01/21 Miguel Laguna MD [address] [place], [place] [id number] Home Care Provider Orthopedics 12/01/21 Rosie Phillip, PT [address] [place], [place] [id number] Marine Oiler Post Acute Care 12/02/21 Sand Caster Relationship Specialty Start Date End Date Jossy Natarajan, SUPERSONIC ENGINEER.CERAMIC COATER MACHINE [address] [place] [address] PCP - General Family Practice 12/01/21 Cecilio Jackson, [facility] [address] [place] [address] Specialty Production Supply Equipment Tender Orthopedics 11/03/21 01/11/22 Israel Santacruz PA-C [address] [place], [place] [id number] Referring Orthopedics 12/01/21 Miguel Laguna MD [address] [facility] [address] [place], [place] [address] Home Care Provider Orthopedics 12/01/21 Rosie Phillip, PT [address] [place] [address] [facility] O[facility] Post Acute Care 12/02/21 Sand Caster Relationship Specialty Start Date End Date Jossy Natarajan SUPERSONIC ENGINEER.CERAMIC COATER MACHINE [address] [place] [address] PCP - General Family Practice 12/01/21 Cecilio Jackson, [facility] [address] [place] [address] Specialty Production Supply Equipment Tender Orthopedics 11/03/21 01/11/22 Israel Santacruz PA-C [address] [place] [address] Referring Orthopedics 12/01/21 Miguel Laguna MD [address] [place], [place] [address] Home Care Provider Orthopedics 12/01/21 Rosie Phillip, PT [address] [place], [place] [address] Marine Oiler Post Acute Care 12/02/21 Sand Caster Relationship Specialty Start Date End Date Jossy Natarajan SUPERSONIC ENGINEER.CERAMIC COATER MACHINE [address] [place] [address] PCP - General Family Practice 12/01/21 Cecilio Jackson, [facility] [address] [place] [address] Specialty Production Supply Equipment Tender Orthopedics 11/03/21 01/11/22 Israel Santacruz PA-C [address] [place] [address] Referring Orthopedics 12/01/21 Miguel Laguna MD [address] [place] [address] Home Care Provider Orthopedics 12/01/21 Rosie Phillip, PT [address] [place] [address] Marine Oiler Post Acute Care 12/02/21 Sand Caster Relationship Specialty Start Date End Date Jossy Natarajan SUPERSONIC ENGINEER.CERAMIC COATER MACHINE [address] [place] [address] PCP - General Family Practice 12/01/21 Sissen, Cecilio, [facility] [address] [place] [address] Specialty Production Supply Equipment Tender Orthopedics 11/03/21 01/11/22 Israel Santacruz PA-C [address] [place] [address] Referring Orthopedics 12/01/21 Miguel Laguna MD [address] [place] [address] Home Care Provider Orthopedics 12/01/21 Rosie Phillip, PT [address] [place], [place] [id number] Marine Oiler Post Acute Care 12/02/21 Sand Caster Relationship Specialty Start Date End Date Jossy Natarajan, SUPERSONIC ENGINEER.CERAMIC COATER MACHINE [address] [place] [address] PCP - General Family Practice 12/01/21 Cecilio Jackson, [facility] [address] [place] [address] Specialty Production Supply Equipment Tender Orthopedics 11/03/21 01/11/22 Israel Santacruz PA-C [address] [place] [address] Referring Orthopedics 12/01/21 Miguel Laguna MD [address] [place] [address] Home Care Provider Orthopedics 12/01/21 Rosie Phillip, PT [address] [place] [address] Marine Oiler Post Acute Care 12/02/21 Sand Caster Relationship Specialty Start Date End Date Jossy Natarajan, SUPERSONIC ENGINEER.CERAMIC COATER MACHINE [address] [place] [address] PCP - General Family Medicine 12/01/21 Cecilio Jackson, [facility] [address] [place] [address] Specialty Production Supply Equipment Tender Orthopedics 11/03/21 01/11/22 Israel Santacruz, BEAU [address] [place] [address] Referring Orthopedics 12/01/21 Miguel Laguna MD [address] [place] [address] Home Care Provider Orthopedics 12/01/21 Rosie Phillip, PT [address] [place] [address] Marine Oiler Post Acute Care 12/02/21 Sand Caster Relationship Specialty Start Date End Date Jossy Natarajan APRN.CERAMIC COATER MACHINE [address] [place] [address] PCP - General Family Medicine 12/01/21 Cecilio Jackson, [facility] [address] [place] [address] Specialty Production Supply Equipment Tender Orthopedics 11/03/21 01/11/22 Israel Santacruz, BEAU [address] [place] [address] Referring Orthopedics 12/01/21 Miguel Laguna MD [address] [place] [address] Home Care Provider Orthopedics 12/01/21 Rosie Phillip, PT [address] [place] [address] Marine Oiler Post Acute Care 12/02/21 Sand Caster Relationship Specialty Start Date End Date Jossy Natarajan APRN.CERAMIC COATER MACHINE [address] [place] [address] PCP - General Family Medicine 12/01/21 Cecilio Jackson, [facility] [address] [place] [address] Specialty Production Supply Equipment Tender Orthopedics 11/03/21 01/11/22 Israel Santacruz PA-C [address] [place] [address] Referring Orthopedics 12/01/21 Miguel Laguna MD [address] [place] [address] Home Care Provider Orthopedics 12/01/21 Rosie Phillip, PT [address] [place] [address] Marine Oiler Post Acute Care 12/02/21 Sand Caster Relationship Specialty Start Date End Date Jossy Natarajan, SUPERSONIC ENGINEER.CERAMIC COATER MACHINE [address] [place] [address] PCP - General Family Medicine 12/01/21 Cecilio Jackson, [facility] [address] [place] [address] Specialty Production Supply Equipment Tender Orthopedics 11/03/21 01/11/22 Israel Santacruz PA-C [address] [place] [address] Referring Orthopedics 12/01/21 Miguel Laguna MD [address] [place] [address] Home Care Provider Orthopedics 12/01/21 Rosie Phillip, PT [address] [place] [address] Marine Oiler Post Acute Care 12/02/21 Sand Caster Relationship Specialty Start Date End Date Jossy Natarajan, SUPERSONIC ENGINEER.CERAMIC COATER MACHINE [address] [place] [address] PCP - General Family Medicine 12/01/21 SisAiden moreauin, [facility] [address] [place] [address] Specialty Production Supply Equipment Tender Orthopedics 11/03/21 01/11/22 Israel Santacruz PA-C [address] [place] [address] Referring Orthopedics 12/01/21 Miguel Laguna MD [address] [place], [place] [address] Home Care Provider Orthopedics 12/01/21 Rosie Phillip, PT [address] [place] [address] Marine Oiler Post Acute Care 12/02/21 Sand Caster Relationship Specialty Start Date End Date Jossy Natarajan, SUPERSONIC ENGINEER.CERAMIC COATER MACHINE [address] [place] [address] PCP - General Family Medicine 12/01/21 Cecilio Jackson, [facility] [address] [place] [address] Specialty Production Supply Equipment Tender Orthopedics 11/03/21 01/11/22 Israel Santacruz PA-C [address] [place] [address] Referring Orthopedics 12/01/21 Miguel Laguna MD [address] [place] [address] Home Care Provider Orthopedics 12/01/21 Rosie Phillip, PT [address] [place] [address] Marine Oiler Post Acute Care 12/02/21 Sand Caster Relationship Specialty Start Date End Date Jossy Natarajan, SUPERSONIC ENGINEER.CERAMIC COATER MACHINE [address] [place] [address] PCP - General Family Medicine 12/01/21 Cecilio Jackson, [facility] [address] [place] [address] Specialty Production Supply Equipment Tender Orthopedics 11/03/21 01/11/22 Israel Santacruz PA-C [address] [place] [address] Referring Orthopedics 12/01/21 Miguel Laguna MD [address] [facility] [place], [place] [address] Home Care Provider Orthopedics 12/01/21 Rosie Phillip, PT [address] [place] [address] Marine Oiler Post Acute Care 12/02/21 Sand Caster Relationship Specialty Start Date End Date Jossy Natarajan, SUPERSONIC ENGINEER.CERAMIC COATER MACHINE [address] [place] [address] PCP - General Family Medicine 12/01/21 Cecilio Jackson, [facility] [address] [place] [address] Specialty Production Supply Equipment Tender Orthopedics 11/03/21 01/11/22 Israel Santacruz PA-C [address] [place] [address] Referring Orthopedics 12/01/21 Miguel Laguna MD [address] [facility] [place] [address] Home Care Provider Orthopedics 12/01/21 Rosie Phillip, PT [address] [place] [address] Marine Oiler Post Acute Care 12/02/21 Sand Caster Relationship Specialty Start Date End Date Jossy Natarajan, SUPERSONIC ENGINEER.CERAMIC COATER MACHINE [address] [place] [address] PCP - General Family Medicine 12/01/21 Cecilio Jackson, [facility] [address] [place] [address] Specialty Production Supply Equipment Tender Orthopedics 11/03/21 01/11/22 Israel Santacruz PA-C [address] [place] [address] Referring Orthopedics 12/01/21 Miguel Laguna MD [address] [facility] [place], [place] [address] Home Care Provider Orthopedics 12/01/21 Rosie Phillip, PT [address] [place] [address] Marine Oiler Post Acute Care 12/02/21 Sand Caster Relationship Specialty Start Date End Date Jossy Natarajan APRN.CERAMIC COATER MACHINE [address] [place] [address] PCP - General Family Medicine 12/01/21 Cecilio Jackson, [facility] [address] [place] [address] Specialty Production Supply Equipment Tender Orthopedics 11/03/21 01/11/22 Israel Santacruz PA-C [address] [place] [address] Referring Orthopedics 12/01/21 Miguel Laguna MD [address] [place] [address] Home Care Provider Orthopedics 12/01/21 Rosie Phillip, PT [address] [place] [address] Marine Oiler Post Acute Care 12/02/21 Sand Caster Relationship Specialty Start Date End Date Jossy Natarajan APRN.CERAMIC COATER MACHINE [address] [place] [address] PCP - General Family Medicine 12/01/21 Cecilio Jackson, [facility] [address] [place] [address] Specialty Production Supply Equipment Tender Orthopedics 11/03/21 01/11/22 Israel Santacruz PA-C [address] [place] [address] Referring Orthopedics 12/01/21 Miguel Laguna MD [address] [place] [address] Home Care Provider Orthopedics 12/01/21 Rosie Phillip, PT [address] [place] [address] Marine Oiler Post Acute Care 12/02/21 Sand Caster Relationship Specialty Start Date End Date Jossy Natarajan, SUPERSONIC ENGINEER.CERAMIC COATER MACHINE [address] [place] [address] PCP - General Family Medicine 12/01/21 Cecilio Jackson, [facility] [address] [place] [address] Specialty Production Supply Equipment Tender Orthopedics 11/03/21 01/11/22 Israel Santacruz PA-C [address] [place] [address] Referring Orthopedics 12/01/21 Miguel Laguna MD [address] [place] [address] Home Care Provider Orthopedics 12/01/21 Rosie Phillip, PT [address] [place] [address] Marine Oiler Post Acute Care 12/02/21 Sand Caster Relationship Specialty Start Date End Date Jossy Natarajan, SUPERSONIC ENGINEER.CERAMIC COATER MACHINE [address] [place] [address] PCP - General Family Medicine 12/01/21 Cecilio Jackson, [facility] [address] [place] [address] Specialty Production Supply Equipment Tender Orthopedics 11/03/21 01/11/22 Israel Santacruz PA-C [address] [place] [address] Referring Orthopedics 12/01/21 Miguel Laguna MD [address] [place] [address] Home Care Provider Orthopedics 12/01/21 Rosie Phillip, PT [address] [place] [address] Marine Oiler Post Acute Care 12/02/21 Sand Caster Relationship Specialty Start Date End Date Jossy Natarajan APRN.CERAMIC COATER MACHINE [address] [place] [address] PCP - General Family Medicine 12/01/21 Cecilio Jackson, [facility] [address] [place] [address] Specialty Production Supply Equipment Tender Orthopedics 11/03/21 01/11/22 Israel Santacruz PA-C [address] [place] [address] Referring Orthopedics 12/01/21 Miguel Laguna MD [address] [place], [place] [address] Home Care Provider Orthopedics 12/01/21 Rosie Phillip, PT [address] [place] [address] Marine Oiler Post Acute Care 12/02/21 Sand Caster Relationship Specialty Start Date End Date Jossy Natarajan, SUPERSONIC ENGINEER.CERAMIC COATER MACHINE [address] [place] [address] PCP - General Family Medicine 12/01/21 Cecilio Jackson, [facility] [address] [place] [address] Specialty Production Supply Equipment Tender Orthopedics 11/03/21 01/11/22 Israel Santacruz PA-C [address] [place] [address] Referring Orthopedics 12/01/21 Miguel Laguna MD [address] [place] [address] Home Care Provider Orthopedics 12/01/21 Rosie Phillip, PT [address] [place] [address] Marine Oiler Post Acute Care 12/02/21 Sand Caster Relationship Specialty Start Date End Date Jossy Natarajan, SUPERSONIC ENGINEER.CERAMIC COATER MACHINE [address] [place] [address] PCP - General Family Medicine 12/01/21 Israel Santacruz PA-C [address] [place] [address] Referring Orthopedics 12/01/21 Miguel Laguna MD [address] [place] [address] Home Care Provider Orthopedics 12/01/21 Rosie Phillip, PT [address] [facility] [place] [address] Marine Oiler Post Acute Care 12/02/21 Sand Caster Relationship Specialty Start Date End Date Jossy Natarajan, SUPERSONIC ENGINEER.CERAMIC COATER MACHINE [address] [place] [address] PCP - General Family Medicine 12/01/21 Israel Santacruz PA-C [address] [place] [address] Referring Orthopedics 12/01/21 Miguel Laguna MD [address] [place] [address] Home Care Provider Orthopedics 12/01/21 Rosie Phillip, PT [address] [facility] [place] [address] Marine Oiler Post Acute Care 12/02/21 Sand Caster Relationship Specialty Start Date End Date Jossy Natarajan, SUPERSONIC ENGINEER.CERAMIC COATER MACHINE [address] [place] [address] PCP - General Family Medicine 12/01/21 Israel Santacruz PA-C [address] [place] [address] Referring Orthopedics 12/01/21 Miguel Laguna MD [address] [place] [address] Home Care Provider Orthopedics 12/01/21 Rosie Phillip, PT [address] [place] [address] Marine Oiler Post Acute Care 12/02/21 Sand Caster Relationship Specialty Start Date End Date Jossy Natarajan, SUPERSONIC ENGINEER.CERAMIC COATER MACHINE [address] [place] [address] PCP - General Family Medicine 12/01/21 Israel Santacruz PA-C [address] [place] [address] Referring Orthopedics 12/01/21 Miguel Laguna MD [address] [place] [address] Home Care Provider Orthopedics 12/01/21 Rosie Phillip, PT [address] [place] [address] Marine Oiler Post Acute Care 12/02/21 Sand Caster Relationship Specialty Start Date End Date Jossy Natarajan, SUPERSONIC ENGINEER.CERAMIC COATER MACHINE [address] [place] [address] PCP - General Family Medicine 12/01/21 Israel Santacruz PA-C [address] [place] [address] Referring Orthopedics 12/01/21 Miguel Laguna MD [address] [place] [address] Home Care Provider Orthopedics 12/01/21 Rosie Phillip, PT [address] [facility] [place] [address] Marine Oiler Post Acute Care 12/02/21 Sand Caster Relationship Specialty Start Date End Date Jossy Natarajan SUPERSONIC ENGINEER.CERAMIC COATER MACHINE [address] [place] [address] PCP - General Family Medicine 12/01/21 Israel Santacruz PA-C [address] [place] [address] Referring Orthopedics 12/01/21 Miguel Laguna MD [address] [place] [address] Home Care Provider Orthopedics 12/01/21 Rosie Phillip, PT [address] [facility] [place] [address] Marine Oiler Post Acute Care 12/02/21 Sand Caster Relationship Specialty Start Date End Date Jossy Natarajan, SUPERSONIC ENGINEER.CERAMIC COATER MACHINE [address] [place] [address] PCP - General Family Medicine 12/01/21 Israel Santacruz PA-C [address] [place] [address] Referring Orthopedics 12/01/21 Miguel Laguna MD [address] [place] [address] Home Care Provider Orthopedics 12/01/21 Rosie Phillip, PT [address] [place] [address] Marine Oiler Post Acute Care 12/02/21 Sand Caster Relationship Specialty Start Date End Date Jossy Natarajan, SUPERSONIC ENGINEER.CERAMIC COATER MACHINE [address] [place] [address] PCP - General Family Medicine 12/01/21 Israel Santacruz PA-C [address] [place] [address] Referring Orthopedics 12/01/21 Miguel Laguna MD [address] [place] [address] Home Care Provider Orthopedics 12/01/21 Rosie Phillip, PT [address] [place] [address] Marine Oiler Post Acute Care 12/02/21 Sand Caster Relationship Specialty Start Date End Date Jossy Natarajan, SUPERSONIC ENGINEER.CERAMIC COATER MACHINE [address] [place] [address] PCP - General Family Medicine 12/01/21 Israel Santacruz PA-C [address] [place] [address] Referring Orthopedics 12/01/21 Miguel Laguna MD [address] [place] [address] Home Care Provider Orthopedics 12/01/21 Rosie Phillip, PT [address] [place] [address] Marine Oiler Post Acute Care 12/02/21 Sand Caster Relationship Specialty Start Date End Date Jossy Natarajan, SUPERSONIC ENGINEER.CERAMIC COATER MACHINE [address] [place] [address] PCP - General Family Medicine 12/01/21 Israel Santacruz PA-C [address] [place] [address] Referring Orthopedics 12/01/21 Miguel Laguna MD [address] [place] [address] Home Care Provider Orthopedics 12/01/21 Rosie Phillip, PT [address] [facility] [place] [address] Marine Oiler Post Acute Care 12/02/21 Sand Caster Relationship Specialty Start Date End Date Jossy Natarajan APRN.CERAMIC COATER MACHINE [address] [place] [address] PCP - General Family Medicine 12/01/21 Israel Santacruz PASunnyC [address] [place] [address] Referring Orthopedics 12/01/21 Miguel Laguna MD [address] [facility] [place] [address] Home Care Provider Orthopedics 12/01/21 Rosie Phillip, PT [address] [place] [address] Marine Oiler Post Acute Care 12/02/21 Sand Caster Relationship Specialty Start Date End Date Jossy Natarajan SUPERSONIC ENGINEER.CERAMIC COATER MACHINE [address] [place] [address] PCP - General Family Medicine 12/01/21 Israel Santacruz PASunnyC [address] [place] [address] Referring Orthopedics 12/01/21 Miguel Laguna MD [address] [facility] [place] [address] Home Care Provider Orthopedics 12/01/21 Rosie Phillip, PT [address] [facility] [place] [address] Marine Oiler Post Acute Care 12/02/21 Sand Caster Relationship Specialty Start Date End Date Jossy Natarajan, SUPERSONIC ENGINEER.CERAMIC COATER MACHINE [address] [place] [address] PCP - General Family Medicine 12/01/21 Israel Santacruz PA-C [address] [place] [address] Referring Orthopedics 12/01/21 Miguel Laguna MD [address] [place] [address] Home Care Provider Orthopedics 12/01/21 Rosei Phillip, PT [address] [place] [address] Marine Oiler Post Acute Care 12/02/21 Sand Caster Relationship Specialty Start Date End Date Jossy Natarajan, SUPERSONIC ENGINEER.CERAMIC COATER MACHINE [address] [place] [address] PCP - General Family Medicine 12/01/21 Israel Santacruz PA-C [address] [place] [address] Referring Orthopedics 12/01/21 Miguel Laguna MD [address] [place] [address] Home Care Provider Orthopedics 12/01/21 Rosie Phillip, PT [address] [place] [address] Marine Oiler Post Acute Care 12/02/21 Sand Caster Relationship Specialty Start Date End Date Jossy Natarajan, SUPERSONIC ENGINEER.CERAMIC COATER MACHINE [address] [place] [address] PCP - General Family Medicine 12/01/21 Israel Santacruz PA-C [address] [place] [address] Referring Orthopedics 12/01/21 Miguel Laguna MD [address] [place] [address] Home Care Provider Orthopedics 12/01/21 Rosie Phillip, PT [address] [facility] [place] [address] Marine Oiler Post Acute Care 12/02/21 Sand Caster Relationship Specialty Start Date End Date Jossy Natarajan SUPERSONIC ENGINEER.CERAMIC COATER MACHINE [address] [place] [address] PCP - General Family Medicine 12/01/21 Israel Santacruz PA-C [address] [place] [address] Referring Orthopedics 12/01/21 Miguel Laguna MD [address] [place] [address] Home Care Provider Orthopedics 12/01/21 Rosie Phillip, PT [address] [facility] [place] [address] Marine Oiler Post Acute Care 12/02/21 Sand Caster Relationship Specialty Start Date End Date Jossy Natarajan SUPERSONIC ENGINEER.CERAMIC COATER MACHINE [address] [place] [address] PCP - General Family Medicine 12/01/21 Israel Santacruz PA-C [address] [place] [address] Referring Orthopedics 12/01/21 Miguel Laguna MD [address] [place] [address] Home Care Provider Orthopedics 12/01/21 Rosie Phillip, PT [address] [facility] [place] [address] Marine Oiler Post Acute Care 12/02/21 Team Status: Active Member Role Status Dates No Primary Care Physician Family Provider Active Jossy Natarajan HOME CARE SPECIALIST, HOME CARE SPECIALIST-C Primary Care Provider Active Team Status: Inactive Member Role Status Dates Dr. Shaun Herr , Emergency Provider Active Jossy Natarajan HOME CARE SPECIALIST, HOME CARE SPECIALIST-C Primary Care Provider Active Sand Caster Relationship Specialty Start Date End Date Jossy Natarajan, SUPERSONIC ENGINEER.CERAMIC COATER MACHINE [address] [place] [address] PCP - General Family Medicine 12/01/21 Israel Santacruz PA-C [address] [place] [address] Referring Orthopedics 12/01/21 Miguel Laguna MD [address] [facility] [place] [address] Home Care Provider Orthopedics 12/01/21 Rosie Phillip, PT [address] [place] [address] Marine Oiler Post Acute Care 12/02/21 Sand Caster Relationship Specialty Start Date End Date Jossy Natarajan, SUPERSONIC ENGINEER.CERAMIC COATER MACHINE [address] [place] [address] PCP - General Family Medicine 12/01/21 Israel Santacruz PA-C [address] [place] [address] Referring Orthopedics 12/01/21 Miguel Laguna MD [address] [facility] [place] [address] Home Care Provider Orthopedics 12/01/21 Rosie Phillip, PT [address] [place] [address] Marine Oiler Post Acute Care 12/02/21 Sand Caster Relationship Specialty Start Date End Date Jossy Natarajan, SUPERSONIC ENGINEER.CERAMIC COATER MACHINE [address] [place] [address] PCP - General Family Medicine 12/01/21 Israel Santacruz PA-C [address] [place] [address] Referring Orthopedics 12/01/21 Miguel Laguna MD [address] [place] [address] Home Care Provider Orthopedics 12/01/21 Rosie Phillip, PT [address] [place] [address] Marine Oiler Post Acute Care 12/02/21 Sand Caster Relationship Specialty Start Date End Date Jossy Natarajan, SUPERSONIC ENGINEER.CERAMIC COATER MACHINE [address] [place] [address] PCP - General Family Medicine 12/01/21 Israel Santacruz PA-C [address] [place] [address] Referring Orthopedics 12/01/21 Miguel Laguna MD [address] [place] [address] Home Care Provider Orthopedics 12/01/21 Rosie Phillip, PT [address] [place] [address] Marine Oiler Post Acute Care 12/02/21 Sand Caster Relationship Specialty Start Date End Date Jossy Natarajan, SUPERSONIC ENGINEER.CERAMIC COATER MACHINE [address] [place] [address] PCP - General Family Medicine 12/01/21 Israel Santacruz PA-C [address] [place] [address] Referring Orthopedics 12/01/21 Miguel Laguna MD [address] [place] [address] Home Care Provider Orthopedics 12/01/21 Rosie Phillip, PT [address] [place], [place] 256[address]31 Marine Oiler Post Acute Care 12/02/21 Sand Caster Relationship Specialty Start Date End Date Jossy Natarajan, SUPERSONIC ENGINEER.CERAMIC COATER MACHINE [address] [place] [address] PCP - General Family Medicine 12/01/21 Israel Santacruz PA-C [address] [place] [address] Referring Orthopedics 12/01/21 Miguel Laguna MD [address] [facility] [place] [address] Home Care Provider Orthopedics 12/01/21 Rosie Phillip, PT [address] [place] [address] Marine Oiler Post Acute Care 12/02/21 Kati Robles, public health microbiologist Railroad Dining Car Stewardess 09/02/22 10/11/22 Sand Caster Relationship Specialty Start Date End Date Jossy Natarajan, SUPERSONIC ENGINEER.CERAMIC COATER MACHINE [address] [place] [address] PCP - General Family Medicine 12/01/21 Israel Santacruz PA-C [address] [place] [address] Referring Orthopedics 12/01/21 Miguel Laguna MD [address] [place] [address] Home Care Provider Orthopedics 12/01/21 Rosie Phillip, PT [address] [place] [address] Marine Oiler Post Acute Care 12/02/21 Kati Robles RN Primary Care Railroad Dining Car Stewardess 09/02/22 10/11/22 Sand Caster Relationship Specialty Start Date End Date Jossy Natarajan SUPERSONIC ENGINEER.CERAMIC COATER MACHINE [address] [place], [place] [address] PCP - General Family Medicine 12/01/21 Israel Santacruz PA-C [address] [place] [address] Referring Orthopedics 12/01/21 Miguel Laguna MD [address] [place] [address] Home Care Provider Orthopedics 12/01/21 Rosie Phillip, PT [address] [place], [place] 0847431 Marine Oiler Post Acute Care 12/02/21 Kati Robles RN Primary Care Railroad Dining Car Stewardess 09/02/22 10/11/22 Sand Caster Relationship Specialty Start Date End Date Jossy Natarajan, SUPERSONIC ENGINEER.CERAMIC COATER MACHINE [address] [place] [address] PCP - General Family Medicine 12/01/21 Israel Santacruz PA-C [address] [place] [address] Referring Orthopedics 12/01/21 Miguel Laguna MD [address] [place], [place] [address] Home Care Provider Orthopedics 12/01/21 Rosie Phillip, PT [address] [place], [place] [address]27[address]31 Marine Oiler Post Acute Care 12/02/21 Team Status: Inactive Member Role Status Dates Dr. Shaun Herr , Attending Provider, Emergency Provider Active Jossy Natarajan HOME CARE SPECIALIST, HOME CARE SPECIALIST-C Primary Care Provider Active Team Status: Inactive Member Role Status Dates Jossy Natarajan HOME CARE SPECIALIST, HOME CARE SPECIALIST-C Primary Care Provider Active Dr. David Guo , Emergency Provider Active Sand Caster Relationship Specialty Start Date End Date Jossy Natarajan SUPERSONIC ENGINEER.CERAMIC COATER MACHINE [address] [place] [address] PCP - General Family Medicine 12/01/21 Israel Santacruz PA-C [address] [place] [address] Referring Orthopedics 12/01/21 Miguel Laguna MD [address] [facility] [place] [place], [place] [address] Home Care Provider Orthopedics 12/01/21 Rosie Phillip, PT [address] [place] [address] Marine Oiler Post Acute Care 12/02/21 Sand Caster Relationship Specialty Start Date End Date Jossy Natarajan, SUPERSONIC ENGINEER.CERAMIC COATER MACHINE [address] [place] [address] PCP - General Family Medicine 12/01/21 Israel Santacruz PA-C [address] [place] [address] Referring Orthopedics 12/01/21 Miguel Laguna MD [address] [facility] [place] [address] Home Care Provider Orthopedics 12/01/21 Rosie Phillip, PT [address] [place], [place] 868[address]31 Marine Oiler Post Acute Care 12/02/21 Sand Caster Relationship Specialty Start Date End Date Jossy Natarajan, SUPERSONIC ENGINEER.CERAMIC COATER MACHINE [address] [place] [address] PCP - General Family Medicine 12/01/21 Israel Santacruz PA-C [address] [place] [address] Referring Orthopedics 12/01/21 Miguel Laguna MD [address] [place], [place] [address]461 Home Care Provider Orthopedics 12/01/21 Rosie Phillip, PT [address] [place] [address] Marine Oiler Post Acute Care 12/02/21 Sand Caster Relationship Specialty Start Date End Date Jossy Natarajan SUPERSONIC ENGINEER.CERAMIC COATER MACHINE [address] [place] [address] PCP - General Family Medicine 12/01/21 Israel Santacruz PA-C [address] [place] [address] Referring Orthopedics 12/01/21 Miguel Laguna MD [address] [place] [address] Home Care Provider Orthopedics 12/01/21 Rosie Phillip, PT [address] [place] [address] Marine Oiler Post Acute Care 12/02/21 Sand Caster Relationship Specialty Start Date End Date Jossy Natarajan, SUPERSONIC ENGINEER.CERAMIC COATER MACHINE [address] [place] [address] PCP - General Family Medicine 12/01/21 Israel Santacruz PA-C [address] [place] [address] Referring Orthopedics 12/01/21 Miguel Laguna MD [address] [facility] [place], [place] [address] Home Care Provider Orthopedics 12/01/21 Sand Caster Relationship Specialty Start Date End Date Jossy Natarajan APRN.CERAMIC COATER MACHINE [address] [place], [place] [address] PCP - General Family Medicine 12/01/21 Israel Santacruz PA-C [address] [place], [place] 2769395 Referring Orthopedics 12/01/21 Miguel Laguna MD [address] [facility] [place], [place] [address] Home Care Provider Orthopedics 12/01/21 Sand Caster Relationship Specialty Start Date End Date Jossy Natarajan SUPERSONIC ENGINEER.CERAMIC COATER MACHINE [address] [place] [address] PCP - General Family Medicine 12/01/21 Israel Santacruz PA-C [address] [place], [place] 4994495 Referring Orthopedics 12/01/21 Miguel Laguna MD [address] [place] [address] Home Care Provider Orthopedics 12/01/21 Sand Caster Relationship Specialty Start Date End Date Jossy Natarajan, SUPERSONIC ENGINEER.CERAMIC COATER MACHINE [address] [place] [address] PCP - General Family Medicine 12/01/21 Israel Santacruz PA-C [address] [place] [address] Referring Orthopedics 12/01/21 Miguel Laguna MD [address] [place] [address] Home Care Provider Orthopedics 12/01/21 Sand Caster Relationship Specialty Start Date End Date Jossy Natarajan, SUPERSONIC ENGINEER.CERAMIC COATER MACHINE [address] [place] [address] PCP - General Family Medicine 12/01/21 Israel Santacruz PA-C [address] [place] [address] Referring Orthopedics 12/01/21 Miguel Laguna MD [address] [place] [address] Home Care Provider Orthopedics 12/01/21 Sand Caster Relationship Specialty Start Date End Date Jossy Natarajan, SUPERSONIC ENGINEER.CERAMIC COATER MACHINE [address] [place] [address] PCP - General Family Medicine 12/01/21 Israel Santacruz PA-C [address] [place] [address] Referring Orthopedics 12/01/21 Miguel Laguna MD [address] [place] [address] Home Care Provider Orthopedics 12/01/21 Sand Caster Relationship Specialty Start Date End Date Jossy Natarajan, SUPERSONIC ENGINEER.CERAMIC COATER MACHINE [address] [place] [address] PCP - General Family Medicine 12/01/21 Israel Santacruz PA-C [address] [place] [address] Referring Orthopedics 12/01/21 Miguel Laguna MD [address] [place] [address] Home Care Provider Orthopedics 12/01/21 Kt Mortensen MD [address] [address] Physician Nephrology 12/09/22 Sand Caster Relationship Specialty Start Date End Date Jossy Natarajan, SUPERSONIC ENGINEER.CERAMIC COATER MACHINE [address] [place] [address] PCP - General Family Medicine 12/01/21 Israel Santacruz PA-C [address] [place] [address] Referring Orthopedics 12/01/21 Miguel Laguna MD [address] [place] [address] Home Care Provider Orthopedics 12/01/21 Kt Mortensen MD [address] [address] Physician Nephrology 12/09/22 Sand Caster Relationship Specialty Start Date End Date Jossy Natarajan APRN.CERAMIC COATER MACHINE [address] [place] [address] PCP - General Family Medicine 12/01/21 Israel Santacruz PA-C [address] [place] [address] Referring Orthopedics 12/01/21 Miguel Laguna MD [address] [facility] [place] [address] Home Care Provider Orthopedics 12/01/21 Kt Mortensen MD [address] [address] Physician Nephrology 12/09/22 Sand Caster Relationship Specialty Start Date End Date Jossy Natarajan SUPERSONIC ENGINEER.CERAMIC COATER MACHINE [address] [place] [address] PCP - General Family Medicine 12/01/21 Israel Santacruz PA-C [address] [place] [address] Referring Orthopedics 12/01/21 Miguel Laguna MD [address] [place] [address] Home Care Provider Orthopedics 12/01/21 Kt Mortensen MD [address] [address] Physician Nephrology 12/09/22 Sand Caster Relationship Specialty Start Date End Date Jossy Natarajan, SUPERSONIC ENGINEER.CERAMIC COATER MACHINE [address] [place], [place] [address] PCP - General Family Medicine 12/01/21 Israel Santacruz PA-C [address] [place] [address] Referring Orthopedics 12/01/21 Miguel Laguna MD [address] [facility] [place] [address] Home Care Provider Orthopedics 12/01/21 Kt Mortensen MD [address] [address] Physician Nephrology 12/09/22 Sand Caster Relationship Specialty Start Date End Date Jossy Naatrajan, SUPERSONIC ENGINEER.CERAMIC COATER MACHINE [address] [place] [address] PCP - General Family Medicine 12/01/21 Israel Santacruz PA-C [address] [place] [address] Referring Orthopedics 12/01/21 Miguel Laguna MD [address] [facility] [place], [place] [address] Home Care Provider Orthopedics 12/01/21 Kt Mortensen MD [address] [address] Physician Nephrology 12/09/22 Sand Caster Relationship Specialty Start Date End Date Jossy Natarajan APRN.CERAMIC COATER MACHINE [address] [place] [address] PCP - General Family Medicine 12/01/21 Israel Santacruz PA-C [address] [place] [address] Referring Orthopedics 12/01/21 Miguel Laguna MD [address] [place] [address] Home Care Provider Orthopedics 12/01/21 Kt Mortensen MD [address] [address] Physician Nephrology 12/09/22 Sand Caster Relationship Specialty Start Date End Date Jossy Natarajan SUPERSONIC ENGINEER.CERAMIC COATER MACHINE [address] [place] [address] PCP - General Family Medicine 12/01/21 Israel Santacruz PA-C [address] [place] [address] Referring Orthopedics 12/01/21 Miguel Laguna MD [address] [place] [address] Home Care Provider Orthopedics 12/01/21 Kt Mortensen MD [address] [address] Physician Nephrology 12/09/22 Sand Caster Relationship Specialty Start Date End Date Jossy Natarajan SUPERSONIC ENGINEER.CERAMIC COATER MACHINE [address] [place] [address] PCP - General Family Medicine 12/01/21 Israel Santacruz PA-C [address] [place] [address] Referring Orthopedics 12/01/21 Miguel Laguna MD [address] [place] [address] Home Care Provider Orthopedics 12/01/21 Kt Mortensen MD [address] [address] Physician Nephrology 12/09/22 Sand Caster Relationship Specialty Start Date End Date Jossy Natarajan APRN.CERAMIC COATER MACHINE [address] [place] [address] PCP - General Family Medicine 12/01/21 Israel Santacruz PA-C [address] [place] [address] Referring Orthopedics 12/01/21 Miguel Laguna MD [address] [place] [address] Home Care Provider Orthopedics 12/01/21 Sand Caster Relationship Specialty Start Date End Date Jossy Natarajan APRN.CERAMIC COATER MACHINE [address] [place] [address] PCP - General Family Medicine 12/01/21 Israel Santacruz PA-C [address] [place] [address] Referring Orthopedics 12/01/21 Miguel Laguna MD [address] [facility] [place], [place] [address] Home Care Provider Orthopedics 12/01/21 Rosie Phillip, PT [address] [place] [address] Marine Oiler Post Acute Care 12/02/21 11/06/22 Sand Caster Relationship Specialty Start Date End Date Jossy Natarajan, SUPERSONIC ENGINEER.CERAMIC COATER MACHINE [address] [place], [place] [address] PCP - General Family Medicine 12/01/21 Israel Santacruz PA-C [address] [place] [address] Referring Orthopedics 12/01/21 Miguel Laguna MD [address] [facility] [place] [address] Home Care Provider Orthopedics 12/01/21 Kt Mortensen MD [address] [address] Physician Nephrology 12/09/22 Sand Caster Relationship Specialty Start Date End Date Jossy Natarajan SUPERSONIC ENGINEER.CERAMIC COATER MACHINE [address] [place] [address] PCP - General Family Medicine 12/01/21 Israel Santacruz PA-C [address] [place] [address] Referring Orthopedics 12/01/21 Miguel Laguna MD [address] [place], [place] [address] Home Care Provider Orthopedics 12/01/21 Kt Mortensen MD [address] [address] Physician Nephrology 12/09/22 Sand Caster Relationship Specialty Start Date End Date Jossy Natarajan, SUPERSONIC ENGINEER.CERAMIC COATER MACHINE [address] [place] [address] PCP - General Family Medicine 12/01/21 Israel Santacruz PA-C [address] [place], [place] [address] Referring Orthopedics 12/01/21 Miguel Laguna MD [address] [place] [address] Home Care Provider Orthopedics 12/01/21 Kt Mortensen MD [address] [address] Physician Nephrology 12/09/22 Sand Caster Relationship Specialty Start Date End Date Jossy Natarajan, SUPERSONIC ENGINEER.CERAMIC COATER MACHINE [address] [place] [address] PCP - General Family Medicine 12/01/21 Israel Santacruz PA-C [address] [place], [place] [address] Referring Orthopedics 12/01/21 Miguel Laguna MD [address] [place] [address] Home Care Provider Orthopedics 12/01/21 Kt Mortensen MD [address] [address] Physician Nephrology 12/09/22 Sand Caster Relationship Specialty Start Date End Date Jossy Natarajan SUPERSONIC ENGINEER.CERAMIC COATER MACHINE [address] [place] [address] PCP - General Family Medicine 12/01/21 Israel Santacruz PA-C [address] [place] [address] Referring Orthopedics 12/01/21 Miguel Laguna MD [address] [place] [address] Home Care Provider Orthopedics 12/01/21 Kt Mortensen MD [address] [address] Physician Nephrology 12/09/22 Team Status: Active Member Role Status Dates Jossy Natarajan HOME CARE SPECIALIST, HOME CARE SPECIALIST-C Primary Care Provider Active Dr. Atul Solitario MD Emergency Provider Active Dr. Jarek Segovia DO Admit Provi karthikeyan, Attending Provider, Other Provider Active Team Status: Inactive Member Role Status Dates Jossy Natarajan HOME CARE SPECIALIST, HOME CARE SPECIALIST-C Primary Care Provider Active Dr. Atul Solitario MD Attending Provider, Emergency Pr ovider Active Team Status: Inactive Member Role Status Dates Jossy Natarajan HOME CARE SPECIALIST, HOME CARE SPECIALIST-C Primary Care Provider Active Dr. Malcom Holman , Emergency Provider Active Sand Caster Relationship Specialty Start Date End Date Jossy Natarajan SUPERSONIC ENGINEER.CERAMIC COATER MACHINE [address] [place] [address] PCP - General Family Medicine 12/01/21 Israel Santacruz PA-C [address] [place] [address] Referring Orthopedics 12/01/21 Miguel Laguna MD [address] [place] [address] Home Care Provider Orthopedics 12/01/21 Kt Mortensen MD [address] [address] Physician Nephrology 12/09/22 Sand Caster Relationship Specialty Start Date End Date Jossy Natarajan APRN.CERAMIC COATER MACHINE [address] [place] [address] PCP - General Family Medicine 12/01/21 Israel Santacruz PA-C [address] [place] [address] Referring Orthopedics 12/01/21 Miguel Laguna MD [address] [facility] [place] [address] Home Care Provider Orthopedics 12/01/21 Kt Mortensen MD [address] [address] Physician Nephrology 12/09/22 Sand Caster Relationship Specialty Start Date End Date Jossy Natarajan APRN.CERAMIC COATER MACHINE [address] [place] [address] PCP - General Family Medicine 12/01/21 Israel Santacruz PA-C [address] [place] [address] Referring Orthopedics 12/01/21 Miguel Laguna MD [address] [place] [address] Home Care Provider Orthopedics 12/01/21 Kt Mortensen MD [address] [address] Physician Nephrology 12/09/22 Sand Caster Relationship Specialty Start Date End Date Jossy Natarajan SUPERSONIC ENGINEER.CERAMIC COATER MACHINE [address] [place] [address] PCP - General Family Medicine 12/01/21 Israel Santacruz PA-C [address] [place] [address] Referring Orthopedics 12/01/21 Miguel Laguna MD [address] [place], [place] [address]191 Home Care Provider Orthopedics 12/01/21 Kt Mortensen MD [address] [address] Physician Nephrology 12/09/22 Sand Caster Relationship Specialty Start Date End Date Jossy Natarajan SUPERSONIC ENGINEER.CERAMIC COATER MACHINE [address] [place] [address] PCP - General Family Medicine 12/01/21 Israel Santacruz PA-C [address] [place] [address] Referring Orthopedics 12/01/21 Miguel Laguna MD [address] [place] [address] Home Care Provider Orthopedics 12/01/21 Kt Mortensen MD [address] [address] Physician Nephrology 12/09/22 Sand Caster Relationship Specialty Start Date End Date Jossy Natarajan APRN.CERAMIC COATER MACHINE [address] [place] [address] PCP - General Family Medicine 12/01/21 Israel Santacruz PA-C [address] [place] [address] Referring Orthopedics 12/01/21 Miguel Laguna MD [address] [place] [address] Home Care Provider Orthopedics 12/01/21 Kt Mortensen MD [address] [address] Physician Nephrology 12/09/22 Sand Caster Relationship Specialty Start Date End Date Jossy Natarajan APRN.CERAMIC COATER MACHINE [address] [place] [address] PCP - General Family Medicine 12/01/21 Israel Santacruz PA-C [address] [place] [address] Referring Orthopedics 12/01/21 Miguel Laguna MD [address] [place] [address] Home Care Provider Orthopedics 12/01/21 Kt Mortensen MD [address] [address] Physician Nephrology 12/09/22 Sand Caster Relationship Specialty Start Date End Date Jossy Natarajan APRN.CERAMIC COATER MACHINE [address] [place] [address] PCP - General Family Medicine 12/01/21 Israel Santacruz PA-C [address] [place] [address] Referring Orthopedics 12/01/21 Miguel Laguna MD [address] [place] [address] Home Care Provider Orthopedics 12/01/21 Kt Mortensen MD [address] [address] Physician Nephrology 12/09/22 Sand Caster Relationship Specialty Start Date End Date Jossy Natarajan APRN.CERAMIC COATER MACHINE [address] [place] [address] PCP - General Family Medicine 12/01/21 Israel Santacruz PA-C [address] [place] [address] Referring Orthopedics 12/01/21 Miguel Laguna MD [address] [facility] [place] [place] [address] Home Care Provider Orthopedics 12/01/21 Kt Mortensen MD [address] [address] Physician Nephrology 12/09/22 Sand Caster Relationship Specialty Start Date End Date Jossy Natarajan, SUPERSONIC ENGINEER.CERAMIC COATER MACHINE [address] [place] [address] PCP - General Family Medicine 12/01/21 Israel Santacruz PA-C [address] [place] [address] Referring Orthopedics 12/01/21 Miguel Laguna MD [address] [place], [place] [address]41 Home Care Provider Orthopedics 12/01/21 Kt Mortensen MD [address] [address] Physician Nephrology 12/09/22 Sand Caster Relationship Specialty Start Date End Date Jossy Natarajan SUPERSONIC ENGINEER.CERAMIC COATER MACHINE [address] [place], [place] [id number] PCP - General Family Medicine 12/01/21 Israel Santacruz PA-C [address] [place] [address] Referring Orthopedics 12/01/21 Miguel Laguna MD [address] [facility] [place], [place] [address] Home Care Provider Orthopedics 12/01/21 Kt Mortensen MD [address] [address] Physician Nephrology 12/09/22 Team Status: Inactive Member Role Status Dates Jossy Natarajan HOME CARE SPECIALIST, HOME CARE SPECIALIST-C Primary Care Provider Active Dr. Malcom Holman DO Attending Provider, Emergency Makenna macedo Active Team Status: Inactive Member Role Status Dates Jossy Natarajan HOME CARE SPECIALIST, HOME CARE SPECIALIST-C Primary Care Provider Active Dr. Miguel Gutierrez MD Emergency Provider Active Sand Caster Relationship Specialty Start Date End Date Jossy Natarajan APRN.CERAMIC COATER MACHINE [address] [place], [place] [id number] PCP - General Family Medicine 12/01/21 Israel Santacruz PA-C [address] [place] [address] Referring Orthopedics 12/01/21 Miguel Laguna MD [address] [place] [address] Home Care Provider Orthopedics 12/01/21 Kt Mortensen MD [address] [address] Physician Nephrology 12/09/22 Sand Caster Relationship Specialty Start Date End Date Jossy Natarajan SUPERSONIC ENGINEER.CERAMIC COATER MACHINE [address] [place], [place] [id number] PCP - General Family Medicine 12/01/21 Israel Santacruz PA-C [address] [place] [address] Referring Orthopedics 12/01/21 Miguel Laguna MD [address] [place], [place] [address] Home Care Provider Orthopedics 12/01/21 Kt Mortensen MD [address] [address] Physician Nephrology 12/09/22 Sand Caster Relationship Specialty Start Date End Date Jossy Natarajan APRN.CERAMIC COATER MACHINE [address] [place], [place] [id number] PCP - General Family Medicine 12/01/21 Ceciilo Jackson, [facility] [address] [place] [address] Specialty Production Supply Equipment Tender Orthopedics 11/03/21 10/28/23 Israel Santacruz PA-C [address] [place] [address] Referring Orthopedics 12/01/21 Miguel Laguna MD [address] [place] [address] Home Care Provider Orthopedics 12/01/21 Kt Mortensen MD [address] [address] Physician Nephrology 12/09/22 Sand Caster Relationship Specialty Start Date End Date Jossy Natarajan SUPERSONIC ENGINEER.CERAMIC COATER MACHINE [address] [place] [address] PCP - General Family Medicine 12/01/21 Cecilio Jackson, [facility] [address] [place] [address] Specialty Production Supply Equipment Tender Orthopedics 11/03/21 10/28/23 Israel Santacruz PA-C [address] [place] [address] Referring Orthopedics 12/01/21 Miguel Laguna MD [address] [place], [place] [address] Home Care Provider Orthopedics 12/01/21 Kt Mortensen MD [address] [address] Physician Nephrology 12/09/22 Sand Caster Relationship Specialty Start Date End Date Jossy Natarajan APRN.CERAMIC COATER MACHINE [address] [place] [address] PCP - General Family Medicine 12/01/21 Cecilio Jackson, [facility] [address] [place] [address] Specialty Production Supply Equipment Tender Orthopedics 11/03/21 10/28/23 Israel Santacruz PA-C [address] [place] [address] Referring Orthopedics 12/01/21 Miguel Laguna MD [address] [place], [place] [address]71 Home Care Provider Orthopedics 12/01/21 Kt Mortensen MD [address] [address] Physician Nephrology 12/09/22 Sand Caster Relationship Specialty Start Date End Date Jossy Natarajan, SUPERSONIC ENGINEER.CERAMIC COATER MACHINE [address] [place] [address] PCP - General Family Medicine 12/01/21 Cecilio Jackson, [facility] [address] [place] [address] Specialty Production Supply Equipment Tender Orthopedics 11/03/21 10/28/23 Israel Santacruz PA-C [address] [place] [address] Referring Orthopedics 12/01/21 Miguel Laguna MD [address] [place], [place] [address] Home Care Provider Orthopedics 12/01/21 Kt Mortensen MD [address] [address] Physician Nephrology 12/09/22 Sand Caster Relationship Specialty Start Date End Date Jossy Ntaarajan, SUPERSONIC ENGINEER.CERAMIC COATER MACHINE [address] [place] [address] PCP - General Family Medicine 12/01/21 Cecilio Jackson, [facility] [address] [place] [address] Specialty Production Supply Equipment Tender Orthopedics 11/03/21 10/28/23 Israel Santacruz PA-C [address] [place] [address] Referring Orthopedics 12/01/21 Miguel Laguna MD [address] [place], [place] [address] Home Care Provider Orthopedics 12/01/21 Kt Mortensen MD [address] [address] Physician Nephrology 12/09/22 Sand Caster Relationship Specialty Start Date End Date Jossy Natarajan, SUPERSONIC ENGINEER.CERAMIC COATER MACHINE [address] [place] [address] PCP - General Family Medicine 12/01/21 Cecilio Jackson, [facility] [address] [place] [address] Specialty Production Supply Equipment Tender Orthopedics 11/03/21 10/28/23 Israel Santacruz PA-C [address] [place] [address] Referring Orthopedics 12/01/21 Miguel Laguna MD [address] [place] [address] Home Care Provider Orthopedics 12/01/21 Kt Mortensen MD [address] [address] Physician Nephrology 12/09/22 Sand Caster Relationship Specialty Start Date End Date Jossy Natarajan, SUPERSONIC ENGINEER.CERAMIC COATER MACHINE [address] [place] [address] PCP - General Family Medicine 12/01/21 Cecilio Jackson, [facility] [address] [place] [address] Specialty Production Supply Equipment Tender Orthopedics 11/03/21 10/28/23 Israel Santacruz PA-C [address] [place] [address] Referring Orthopedics 12/01/21 Miguel Laguna MD [address] [place] [address] Home Care Provider Orthopedics 12/01/21 Kt Mortensen MD [address] [address] Physician Nephrology 12/09/22 Sand Caster Relationship Specialty Start Date End Date Jossy Natarajan, SUPERSONIC ENGINEER.CERAMIC COATER MACHINE [address] [place] [address] PCP - General Family Medicine 12/01/21 Cecilio Jackson, [facility] [address] [place] [address] Specialty Production Supply Equipment Tender Orthopedics 11/03/21 10/28/23 Israel Santacruz PA-C [address] [place] [address] Referring Orthopedics 12/01/21 Miguel Laguna MD [address] [place] [address] Home Care Provider Orthopedics 12/01/21 Kt Mortensen MD [address] [address] Physician Nephrology 12/09/22 Sand Caster Relationship Specialty Start Date End Date Jossy Natarajan APRN.CERAMIC COATER MACHINE [address] [place] [address] PCP - General Family Medicine 12/01/21 Cecilio Jackson, [facility] [address] [place] [address] Specialty Production Supply Equipment Tender Orthopedics 11/03/21 10/28/23 Israel Santacruz PA-C [address] [place] [address] Referring Orthopedics 12/01/21 Miguel Laguna MD [address] [facility] [place], [place] [address] Home Care Provider Orthopedics 12/01/21 Kt Mortensen MD [address] [address] Physician Nephrology 12/09/22 Sand Caster Relationship Specialty Start Date End Date Jossy Natarajan SUPERSONIC ENGINEER.CERAMIC COATER MACHINE [address] [place], [place] [address] PCP - General Family Medicine 12/01/21 Cecilio Jackson, [facility] [address] [place] [address] Specialty Production Supply Equipment Tender Orthopedics 11/03/21 10/28/23 Israel Santacruz PA-C [address] [place] [address] Referring Orthopedics 12/01/21 Miguel Laguna MD [address] [facility] [place] [address] Home Care Provider Orthopedics 12/01/21 Kt Mortensen MD [address] [address] Physician Nephrology 12/09/22 Sand Caster Relationship Specialty Start Date End Date Jossy Natarajan SUPERSONIC ENGINEER.CERAMIC COATER MACHINE [address] [place] [address] PCP - General Family Medicine 12/01/21 Cecilio Jackson, [facility] [address] [place] [address] Specialty Production Supply Equipment Tender Orthopedics 11/03/21 10/28/23 Israel Santacruz PA-C [address] [place] [address] Referring Orthopedics 12/01/21 Miguel Laguna MD [address] [place], [place] [address]31 Home Care Provider Orthopedics 12/01/21 Kt Mortensen MD [address] [address] Physician Nephrology 12/09/22 Sand Caster Relationship Specialty Start Date End Date Jossy Natarajan, SUPERSONIC ENGINEER.CERAMIC COATER MACHINE [address] [place] [address] PCP - General Family Medicine 12/01/21 Cecilio Jackson, [facility] [address] [place] [address] Specialty Production Supply Equipment Tender Orthopedics 11/03/21 10/28/23 Israel Santacruz PA-C [address] [place] [address] Referring Orthopedics 12/01/21 Miguel Laguna MD [address] [place], [place] [address] Home Care Provider Orthopedics 12/01/21 Kt Mortensen MD [address] [address] Physician Nephrology 12/09/22 Sand Caster Relationship Specialty Start Date End Date Jossy Natarajan, SUPERSONIC ENGINEER.CERAMIC COATER MACHINE [address] [place] [address] PCP - General Family Medicine 12/01/21 Cecilio Jackson, [facility] [address] [place] [address] Specialty Production Supply Equipment Tender Orthopedics 11/03/21 10/28/23 Israel Santacruz PA-C [address] [place] [address] Referring Orthopedics 12/01/21 Miguel Laguna MD [address] [place] [address] Home Care Provider Orthopedics 12/01/21 Kt Mortensen MD [address] [address] Physician Nephrology 12/09/22 Sand Caster Relationship Specialty Start Date End Date Jossy Natarajan, SUPERSONIC ENGINEER.CERAMIC COATER MACHINE [address] [place] [address] PCP - General Family Medicine 12/01/21 Cecilio Jackson, [facility] [address] [place] [address] Specialty Production Supply Equipment Tender Orthopedics 11/03/21 10/28/23 Israel Santacruz PA-C [address] [place] [address] Referring Orthopedics 12/01/21 Miguel Laguna MD [address] [place] [address] Home Care Provider Orthopedics 12/01/21 Kt Mortensen MD [address] [address] Physician Nephrology 12/09/22 Sand Caster Relationship Specialty Start Date End Date Jossy Natarajan, SUPERSONIC ENGINEER.CERAMIC COATER MACHINE [address] [place] [address] PCP - General Family Medicine 12/01/21 Cecilio Jackson, [facility] [address] [place] [address] Specialty Production Supply Equipment Tender Orthopedics 11/03/21 10/28/23 Kt Mortensen MD [address] [address] Physician Nephrology 12/09/22 Heath Delgado MD [address] [place] [address] Home Care Provider Orthopedics 09/19/23 Noah De Anda, SUPERSONIC ENGINEER.CERAMIC COATER MACHINE [address] [place] [address] Referring Orthopedics 09/19/23 Rosie Phillip, PT [address] [place] [address] Marine Oiler Post Acute Care 09/19/23 Sand Caster Relationship Specialty Start Date End Date Jossy Natarajan, SUPERSONIC ENGINEER.CERAMIC COATER MACHINE [address] [place] [address] PCP - General Family Medicine 12/01/21 Cecilio Jackson, [facility] [address] [place] [address] Specialty Production Supply Equipment Tender Orthopedics 11/03/21 10/28/23 Kt Mortensen MD [address] [address] Physician Nephrology 12/09/22 Heath Delgado MD [address] [place] [address] Home Care Provider Orthopedics 09/19/23 Noah De Anda, SUPERSONIC ENGINEER.CERAMIC COATER MACHINE [address] [place] [address] Referring Orthopedics 09/19/23 Rosie Phillip, PT [address] [place] [address] Marine Oiler Post Acute Care 09/19/23 Sand Caster Relationship Specialty Start Date End Date Jossy Natarajan, SUPERSONIC ENGINEER.CERAMIC COATER MACHINE [address] [place] [address] PCP - General Family Medicine 12/01/21 Cecilio Jackson [facility] [address] [place] [address] Specialty Production Supply Equipment Tender Orthopedics 11/03/21 10/28/23 Kt Mortensen MD [address] [address] Physician Nephrology 12/09/22 Heath Delgado MD [address] [place] [address] Home Care Provider Orthopedics 09/19/23 Noah De Anda, SUPERSONIC ENGINEER.CERAMIC COATER MACHINE [address] [place] [address] Referring Orthopedics 09/19/23 Rosie Phillip, PT [address] [place] [address] Marine Oiler Post Acute Care 09/19/23 Sand Caster Relationship Specialty Start Date End Date Jossy Natarajan, SUPERSONIC ENGINEER.CERAMIC COATER MACHINE [address] [place] [address] PCP - General Family Medicine 12/01/21 Cecilio Jackson, [facility] [address] [place] [address] Specialty Production Supply Equipment Tender Orthopedics 11/03/21 10/28/23 Kt Mortensen MD [address] [address] Physician Nephrology 12/09/22 Heath Delgado MD [address] [place] [address] Home Care Provider Orthopedics 09/19/23 Noah De Anda, SUPERSONIC ENGINEER.CERAMIC COATER MACHINE [address] [place] [address] Referring Orthopedics 09/19/23 Rosie Phillip, PT [address] [facility] [place] [address] Marine Oiler Post Acute Care 09/19/23 Sand Caster Relationship Specialty Start Date End Date Jossy Natarajan, SUPERSONIC ENGINEER.CERAMIC COATER MACHINE [address] [place] [address] PCP - General Family Medicine 12/01/21 Cecilio Jackson, [facility] [address] [place] [address] Specialty Production Supply Equipment Tender Orthopedics 11/03/21 10/28/23 Kt Mortensen MD [address] [address] Physician Nephrology 12/09/22 Heath Delgado MD [address] [place] [address] Home Care Provider Orthopedics 09/19/23 Noah De Anda, SUPERSONIC ENGINEER.CERAMIC COATER MACHINE [address] [place] [address] Referring Orthopedics 09/19/23 Rosie Phillip, PT [address] [place], [place] 3227331 Marine Oiler Post Acute Care 09/19/23 Sand Caster Relationship Specialty Start Date End Date Jossy Natarajan, SUPERSONIC ENGINEER.CERAMIC COATER MACHINE [address] [place] [address] PCP - General Family Medicine 12/01/21 Cecilio Jackson [facility] [address] [place] [address] Specialty Production Supply Equipment Tender Orthopedics 11/03/21 10/28/23 Kt Mortensen MD [address] [address] Physician Nephrology 12/09/22 Heath Delgado MD [address] [place] [address] Home Care Provider Orthopedics 09/19/23 Noah De Anda, SUPERSONIC ENGINEER.CERAMIC COATER MACHINE [address] [place] [address] Referring Orthopedics 09/19/23 Rosie Phillip, PT [address] [place], [place] 85697[address] Marine Oiler Post Acute Care 09/19/23 Sand Caster Relationship Specialty Start Date End Date Jossy Natarajan, SUPERSONIC ENGINEER.CERAMIC COATER MACHINE [address] [place] [address] PCP - General Family Medicine 12/01/21 Cecilio Jackson, [facility] [address] [place] [address] Specialty Production Supply Equipment Tender Orthopedics 11/03/21 10/28/23 Kt Mortensen MD [address] [address] Physician Nephrology 12/09/22 Heath Delgado MD [address] [place] [address] Home Care Provider Orthopedics 09/19/23 Noah De Anda, SUPERSONIC ENGINEER.CERAMIC COATER MACHINE [address] [place] [address] Referring Orthopedics 09/19/23 Rosie Phillip, PT [address] [place] [address] Marine Oiler Post Acute Care 09/19/23 Sand Caster Relationship Specialty Start Date End Date Jossy Natarajan, SUPERSONIC ENGINEER.CERAMIC COATER MACHINE [address] [place] [address] PCP - General Family Medicine 12/01/21 Cecilio Jackson, [facility] [address] [place] [address] Specialty Production Supply Equipment Tender Orthopedics 11/03/21 10/28/23 Kt Mortensen MD [address] [address] Physician Nephrology 12/09/22 Heath Delgado MD [address] [place] [address] Home Care Provider Orthopedics 09/19/23 Noah De Anda APRN.CERAMIC COATER MACHINE [address] [place] [address] Referring Orthopedics 09/19/23 Rosie Phillip, PT [address] [facility] [place] [address] Marine Oiler Post Acute Care 09/19/23 Sand Caster Relationship Specialty Start Date End Date Jossy Natarajan APRN.CERAMIC COATER MACHINE [address] [place] [address] PCP - General Family Medicine 12/01/21 Cecilio Jackson, [facility] [address] [place] [address] Specialty Production Supply Equipment Tender Orthopedics 11/03/21 10/28/23 Kt Mortensen MD [address] [address] Physician Nephrology 12/09/22 Heath Delgado MD [address] [place] [address] Home Care Provider Orthopedics 09/19/23 Noah De Anda, SUPERSONIC ENGINEER.CERAMIC COATER MACHINE [address] [place] [address] Referring Orthopedics 09/19/23 Rosie Phillip, PT [address] [place] [address] Marine Oiler Post Acute Care 09/19/23 Sand Caster Relationship Specialty Start Date End Date Jossy Natarajan SUPERSONIC ENGINEER.CERAMIC COATER MACHINE [address] [place] [address] PCP - General Family Medicine 12/01/21 Cecilio Jackson, [facility] [address] [place] [address] Specialty Production Supply Equipment Tender Orthopedics 11/03/21 10/28/23 Kt Mortensen MD [address] [address] Physician Nephrology 12/09/22 Heath Delgado MD [address] [place] [address] Home Care Provider Orthopedics 09/19/23 Noah De Anda, SUPERSONIC ENGINEER.CERAMIC COATER MACHINE [address] [place] [address] Referring Orthopedics 09/19/23 Rosie Phillip, PT [address] [place] [address] Marine Oiler Post Acute Care 09/19/23 Sand Caster Relationship Specialty Start Date End Date Jossy Natarajan, SUPERSONIC ENGINEER.CERAMIC COATER MACHINE [address] [place] [address] PCP - General Family Medicine 12/01/21 Cecilio Jackson, [facility] [address] [place] [address] Specialty Production Supply Equipment Tender Orthopedics 11/03/21 10/28/23 Kt Mortensen MD [address] [address] Physician Nephrology 12/09/22 Heath Delgado MD [address] [place] [address] Home Care Provider Orthopedics 09/19/23 Noah De Anda APRN.CERAMIC COATER MACHINE [address] [place] [address] Referring Orthopedics 09/19/23 Rosie Phillip, PT [address] [place] [address] Marine Oiler Post Acute Care 09/19/23 Sand Caster Relationship Specialty Start Date End Date Jossy Natarajan SUPERSONIC ENGINEER.CERAMIC COATER MACHINE [address] [place] [address] PCP - General Family Medicine 12/01/21 Cecilio Jackson [facility] [address] [place] [address] Specialty Production Supply Equipment Tender Orthopedics 11/03/21 10/28/23 Kt Mortensen MD [address] [address] Physician Nephrology 12/09/22 Heath Delgado MD [address] [place] [address] Home Care Provider Orthopedics 09/19/23 Noah De Anda, SUPERSONIC ENGINEER.CERAMIC COATER MACHINE [address] [place] [address] Referring Orthopedics 09/19/23 Rosie Phillip, PT [address] [place] [address] Marine Oiler Post Acute Care 09/19/23 Sand Caster Relationship Specialty Start Date End Date Jossy Natarajan SUPERSONIC ENGINEER.CERAMIC COATER MACHINE [address] [place] [address] PCP - General Family Medicine 12/01/21 Kt Mortensen MD [address] [address] Physician Nephrology 12/09/22 Heath Delgado MD [address] [place] [address] Home Care Provider Orthopedics 09/19/23 Noah De Anda, SUPERSONIC ENGINEER.CERAMIC COATER MACHINE [address] [place] [address] Referring Orthopedics 09/19/23 Rosie Phillip, PT [address] [place] [address] Marine Oiler Post Acute Care 09/19/23 Sand Caster Relationship Specialty Start Date End Date Jossy Natarajan, SUPERSONIC ENGINEER.CERAMIC COATER MACHINE [address] [place] [address] PCP - General Family Medicine 12/01/21 Kt Mortensen MD [address] [address] Physician Nephrology 12/09/22 Heath Delgado MD [address] [place] [address]806 Home Care Provider Orthopedics 09/19/23 Noah De Anda, SUPERSONIC ENGINEER.CERAMIC COATER MACHINE [address] [place] [address] Referring Orthopedics 09/19/23 Rosie Phillip, PT [address] [place] [address] Marine Oiler Post Acute Care 09/19/23 Sand Caster Relationship Specialty Start Date End Date Jossy Natarajan SUPERSONIC ENGINEER.CERAMIC COATER MACHINE [address] [place] [address] PCP - General Family Medicine 12/01/21 Kt Mortensen MD [address] [address] Physician Nephrology 12/09/22 Heath Delgado MD [address] [place] [address] 74693 Home Care Provider Orthopedics 09/19/23 Noah De Anda, SUPERSONIC ENGINEER.CERAMIC COATER MACHINE [address] [place] [address] Referring Orthopedics 09/19/23 Rosie Phillip, PT [address] [place] [address] Marine Oiler Post Acute Care 09/19/23 Sand Caster Relationship Specialty Start Date End Date Jossy Natarajan, SUPERSONIC ENGINEER.CERAMIC COATER MACHINE [address] [place] [address] PCP - General Family Medicine 12/01/21 Kt Mortensen MD [address] [address] Physician Nephrology 12/09/22 Heath Delgado MD [address] [place] [address] 30376 Home Care Provider Orthopedics 09/19/23 Noah De Anda, SUPERSONIC ENGINEER.CERAMIC COATER MACHINE [address] [place] [address] Referring Orthopedics 09/19/23 Sand Caster Relationship Specialty Start Date End Date Jossy Natarajan, SUPERSONIC ENGINEER.CERAMIC COATER MACHINE [address] [place] [address] PCP - General Family Medicine 12/01/21 Kt Mortensen MD [address] [address] Physician Nephrology 12/09/22 Heath Delgado MD [address] [place] [address] 88837 Home Care Provider Orthopedics 09/19/23 Noah De Anda, SUPERSONIC ENGINEER.CERAMIC COATER MACHINE [address] [place] [address] Referring Orthopedics 09/19/23 Sand Caster Relationship Specialty Start Date End Date Jossy Natarajan, SUPERSONIC ENGINEER.CERAMIC COATER MACHINE [address] [place] [address]706 PCP - General Family Medicine 12/01/21 Kt Mortensen MD [address] [address] Physician Nephrology 12/09/22 Heath Delgado MD [address] [place] [address] 20757 Home Care Provider Orthopedics 09/19/23 Noah De Anda, SUPERSONIC ENGINEER.CERAMIC COATER MACHINE [address] [address] Referring Orthopedics 09/19/23 Sand Caster Relationship Specialty Start Date End Date Jossy Natarajan, SUPERSONIC ENGINEER.CERAMIC COATER MACHINE [address] [place] [address] PCP - General Family Medicine 12/01/21 Kt Mortensen MD [address] [address] Physician Nephrology 12/09/22 Heath Delgado MD [address] [place] [address] 30675 Home Care Provider Orthopedics 09/19/23 Noah De Anda, SUPERSONIC ENGINEER.CERAMIC COATER MACHINE [address] [place] [address] Referring Orthopedics 09/19/23 Sand Caster Relationship Specialty Start Date End Date Jossy Natarajan, SUPERSONIC ENGINEER.CERAMIC COATER MACHINE [address] [place] [address] PCP - General Family Medicine 12/01/21 Cecilio [facility] [address] [place] [address] Specialty Production Supply Equipment Tender Orthopedics 11/03/21 10/28/23 Kt Mortensen MD [address] [address] Physician Nephrology 12/09/22 Heath Delgado MD [address] [place] [address] 88859 Home Care Provider Orthopedics 09/19/23 Noah De Anda, BRYANNA.CERAMIC COATER MACHINE [address] [place] [address] Referring Orthopedics 09/19/23 Rosie Phillip, PT [address] [place] [phone] Marine Oiler Post Acute Care 09/19/23 11/12/23 Sand Caster Relationship Specialty Start Date End Date Jossy Natarajan, SUPERSONIC ENGINEER.CERAMIC COATER MACHINE [address] [place] [address] PCP - General Family Medicine 12/01/21 Kt Mortensen MD [address] [address] Physician Nephrology 12/09/22 Heath Delgado MD [address] [place] [address] 86279 Home Care Provider Orthopedics 09/19/23 Noah De Anda, SUPERSONIC ENGINEER.CERAMIC COATER MACHINE [address] [place] [address] Referring Orthopedics 09/19/23 Sand Caster Relationship Specialty Start Date End Date Jossy Natarajan SUPERSONIC ENGINEER.CERAMIC COATER MACHINE [address] [place] [address] PCP - General Family Medicine 12/01/21 Kt Mortensen MD [address] [address] Physician Nephrology 12/09/22 Heath Delgado MD [address] [place] [address] 59581 Home Care Provider Orthopedics 09/19/23 Noah De Anda, SUPERSONIC ENGINEER.CERAMIC COATER MACHINE [address] [place] [address] 94802 Referring Orthopedics 09/19/23 Sand Caster Relationship Specialty Start Date End Date Jossy Natarajan, SUPERSONIC ENGINEER.CERAMIC COATER MACHINE [address] [place] [address] PCP - General Family Medicine 12/01/21 Kt Mortensen MD [address] [address] Physician Nephrology 12/09/22 Heath Delgado MD [address] [place] [address] 36113 Home Care Provider Orthopedics 09/19/23 Noah De Anda, SUPERSONIC ENGINEER.CERAMIC COATER MACHINE [address] [place] [address]33 Referring Orthopedics 09/19/23 Sand Caster Relationship Specialty Start Date End Date Jossy Natarajan, SUPERSONIC ENGINEER.CERAMIC COATER MACHINE [address] [place] [address] PCP - General Family Medicine 12/01/21 Kt Mortensen MD [address] [address] Physician Nephrology 12/09/22 Heath Delgado MD [address] [address] Home Care Provider Orthopedics 09/19/23 Noah De Anda APRN.CERAMIC COATER MACHINE [address] [address] Referring Orthopedics 09/19/23 Sand Caster Relationship Specialty Start Date End Date Jossy Natarajan, SUPERSONIC ENGINEER.CERAMIC COATER MACHINE [address] [place] [address] PCP - General Family Medicine 12/01/21 Cecilio Jackson [facility] [address] [place] [address] Specialty Production Supply Equipment Tender Orthopedics 11/03/21 10/28/23 Israel Santacruz PA-C [address] [place] [address] Referring Orthopedics 12/01/21 09/18/23 Miguel Laguna MD [address] [place] [address]23 Home Care Provider Orthopedics 12/01/21 09/18/23 Kt Mortensen MD [address] [place] [address] 22986 Physician Nephrology 12/09/22 Sand Caster Relationship Specialty Start Date End Date Jossy Natarajan SUPERSONIC ENGINEER.CERAMIC COATER MACHINE [address] [place] [address] PCP - General Family Medicine 12/01/21 Kt Mortensen MD [address] [address] Physician Nephrology 12/09/22 Heath Delgado MD [address] [place] [address] 62550 Home Care Provider Orthopedics 09/19/23 Noah De Anda, SUPERSONIC ENGINEER.CERAMIC COATER MACHINE [address] [place] [address] 36113 Referring Orthopedics 09/19/23 Sand Caster Relationship Specialty Start Date End Date Jossy Natarajan, SUPERSONIC ENGINEER.CERAMIC COATER MACHINE [address] [place] [address] 8[address]30 PCP - General Family Medicine 12/01/21 Kt Mortensen MD [address] [address] Physician Nephrology 12/09/22 Heath Delgado MD [address] [place] [address] 31840 Home Care Provider Orthopedics 09/19/23 Noah De Anda, SUPERSONIC ENGINEER.CERAMIC COATER MACHINE [address] [place] [address]83 Referring Orthopedics 09/19/23 Sand Caster Relationship Specialty Start Date End Date Jossy Natarajan SUPERSONIC ENGINEER.CERAMIC COATER MACHINE [address] [place] [address] 86083 PCP - General Family Medicine 12/01/21 Cecilio Jackson, [facility] [address] [place] [address] Specialty Production Supply Equipment Tender Orthopedics 11/03/21 10/28/23 Israel Santacruz PA-C [address] [place] [address] Referring Orthopedics 12/01/21 09/18/23 Miguel Laguna MD [address] [place] [address] Home Care Provider Orthopedics 12/01/21 09/18/23 Rosie Phillip, PT [address] [place] [address] Marine Oiler Post Acute Care 12/02/21 11/06/22 Sand Caster Relationship Specialty Start Date End Date Jossy Natarajan SUPERSONIC ENGINEER.CERAMIC COATER MACHINE [address] [place] [address] 17558 PCP - General Family Medicine 12/01/21 Kt Mortensen MD [address] [address] Physician Nephrology 12/09/22 Heath Delgado MD [address] [place] [address] 94797 Home Care Provider Orthopedics 09/19/23 Noah De Anda APRN.CERAMIC COATER MACHINE [address] [place] [address]06 Referring Orthopedics 09/19/23 Sand Caster Relationship Specialty Start Date End Date Jossy Natarajan SUPERSONIC ENGINEER.CERAMIC COATER MACHINE [address] [place] [address] PCP - General Family Medicine 12/01/21 Kt Mortensen MD [address] [address] Physician Nephrology 12/09/22 Heath Delgado MD [address] [place] [address] 21936 Home Care Provider Orthopedics 09/19/23 Noah De Anda, SUPERSONIC ENGINEER.CERAMIC COATER MACHINE [address] [place] [address]814 Referring Orthopedics 09/19/23 Sand Caster Relationship Specialty Start Date End Date Jossy Natarajan SUPERSONIC ENGINEER.CERAMIC COATER MACHINE [address] [place] [address] 28464 PCP - General Family Medicine 12/01/21 Kt Mortensen MD [address] [address] Physician Nephrology 12/09/22 Heath Delgado MD [address] [place] [address] 69260 Home Care Provider Orthopedics 09/19/23 Noah De Anda, SUPERSONIC ENGINEER.CERAMIC COATER MACHINE [address] [place] [address]170 Referring Orthopedics 09/19/23 Sand Caster Relationship Specialty Start Date End Date Jossy Natarajan SUPERSONIC ENGINEER.CERAMIC COATER MACHINE [address] [place] [address] 62386 PCP - General Family Medicine 12/01/21 Kt Mortensen MD [address] [address] Physician Nephrology 12/09/22 Heath Delgado MD [address] [place] [address] 84701 Home Care Provider Orthopedics 09/19/23 Noah De Anda, SUPERSONIC ENGINEER.CERAMIC COATER MACHINE [address] [place] [address] 73534 Referring Orthopedics 09/19/23 Sand Caster Relationship Specialty Start Date End Date Jossy Natarajan, SUPERSONIC ENGINEER.CERAMIC COATER MACHINE [address] [place] [address] 60368 PCP - General Family Medicine 12/01/21 Kt Mortensen MD [address] [place] [address] [address] Physician Nephrology 12/09/22 Heath Delgado MD [address] [place] [address] 15269 Home Care Provider Orthopedics 09/19/23 Noah De Anda, SUPERSONIC ENGINEER.CERAMIC COATER MACHINE [address] [place] [address]409 Referring Orthopedics 09/19/23 Sand Caster Relationship Specialty Start Date End Date Jossy Natarajan SUPERSONIC ENGINEER.CERAMIC COATER MACHINE [address] [place] [address] 6[address]78 PCP - General Family Medicine 12/01/21 Cecilio Jackson, [facility] [address] [place] [address] Specialty Production Supply Equipment Tender Orthopedics 11/03/21 10/28/23 Israel Santacruz PA-C [address] [place] [address] Referring Orthopedics 12/01/21 Miguel Laguna MD [address] [place] [address] Home Care Provider Orthopedics 12/01/21 Kt Mortensen MD [address] [place] [facility] [address] [place] [address] Physician Nephrology 12/09/22 Team Status: Active Member Role Status Dates Jossy Natarajan HOME CARE SPECIALIST, HOME CARE SPECIALIST-C Primary Care Provider Active Team Status: Inactive Member Role Status Dates Jossy Natarajan HOME CARE SPECIALIST, HOME CARE SPECIALIST-C Primary Care Provider Active Start: June 28, 2024 End: June 28, 2024 Dr. Maxim De León MD Emergency Provider Active Sta rt: June 28, 2024 End: June 28, 2024 Team Status: Inactive Member Role Status Dates Jossy Natarajan NP, HOME CARE SPECIALIST-C Primary Care Provider Active Start: June 28, 2024 End: June 28, 2024 Dr. Maxim De León MD Attending Provider Active Sta rt: June 28, 2024 End: June 28, 2024 Dr. Maxim De León MD Emergency Provider Active Sta rt: June 28, 2024 End: June 28, 2024 Team Status: Inactive Member Role Status Dates Jossy Natarajan HOME CARE SPECIALIST, HOME CARE SPECIALIST-C Primary Care Provider Active Start: September 12, 2024 End: September 12, 2024 Felton Torres MD Referring Provider Active Star t: September 12, 2024 End: September 12, 2024 Felton Torres MD Emergency Provider Active Star t: September 12, 2024 End: September 12, 2024 Inactive Administered Medications - up to 3 most recent administrations Administered Medications (un recognized section and content) Medication Order MAR Action Action Date Dose Rate Site BUPivacaine (PF) 0.5 % (5 mg/mL) 8 mL injection 8 mL, Injection - FOR ORTHO USE ONLY, ONCE, 1 dose, Starting on Mon05/17/23 at 1423, Until Mon05/17/23 at 1423 Given 05/17/2023 2:23 PM EST 8 mL Knee, Left triamcinolone acetonide 80 mg injection (KeNALog 40) 80 mg, Injection - FOR ORTHO USE ONLY, ONCE, 1 dose, Starting on Mon05/17/23 at 1423, Until Mon05/17/23 at 1423 Given 05/17/2023 2:23 PM EST 80 mg Knee, Left FOR RECORDS PERTAINING TO PATIENTS WHO ARE [...] BE BASED ON THE PRIMARY CLINICAL RECORDS. [employer] provides no warranty or guarantee of the accuracy or completeness of information in this document.
--- NOTE | 2025-01-07 19:53 | ECHOD_ITS ---
Reason For Study Reason For Study: Hypertension Procedure This was a 2D Doppler, Color Flow transthoracic echocardiogram. Exam performed portable in patient room. Left Ventricle Normal LV size. Mild concentric left ventricular hypertrophy. The left ventricular ejection fraction is 65 %. Stage 1 diastolic dysfunction. Right Ventricle Normal right ventricle. Atria The left atrium is mildly enlarged. Normal right atrium. Hypermobile atrial septum. Mitral Valve Mild (1+) mitral valve insufficiency. Tricuspid Valve Normal tricuspid valve. Aortic Valve Trisinus/trileaflet aortic valve. Trivial aortic valve insufficiency. Pulmonic Valve The pulmonic valve is not well visualized. Great Vessels Mildly dilated aortic root. Pericardium/Pleural No pericardial effusion. MMode/2D Measurements & Calculations LVIDd: 4.8 cm IVSd: 1.2 cm Ao root diam: 4.0 cm LVIDs: 2.5 cm LVPWd: 1.2 cm LA dimension: 4.3 cm RVDd: 3.6 cm FS: 49.1 % LAV(MOD-bp): 85.3 ml LVAd ap4: 34.7 cm2 LVAd ap2: 28.2 cm2 LAV(MOD-bp) Indexed: 36.5 ml/m2 LVLd ap4: 8.3 cm LVLd ap2: 8.3 cm LAV(MOD-sp2): 86.2 ml EDV(MOD-sp4): 117.9 ml EDV(MOD-sp2): 79.1 ml LAV(MOD-sp4): 73.9 ml EDV(sp4-el): 123.1 ml EDV(sp2-el): 80.7 ml LVAs ap4: 17.7 cm2 LVAs ap2: 14.3 cm2 LVLs ap4: 7.1 cm LVLs ap2: 6.4 cm ESV(MOD-sp4): 38.9 ml ESV(MOD-sp2): 29.2 ml ESV(sp4-el): 37.4 ml ESV(sp2-el): 27.0 ml EF(MOD-sp4): 67.0 % EF(MOD-sp2): 63.1 % EF(sp4-el): 69.7 % SV(MOD-sp4): 79.0 ml SV(MOD-sp2): 49.9 ml SV(sp4-el): 85.8 ml SI(MOD-sp4): 33.8 ml/m2 SI(MOD-sp2): 21.4 ml/m2 LA A4 area: 24.4 cm2 LA dimension(2D): 4.2 cm RA A4 area: 17.5 cm2 TAPSE: 2.5 cm Time Measurements MV dec time: 0.22 sec Doppler Measurements & Calculations MV E max jorge: 93.0 cm/sec Lat Peak E' Jorge: 8.0 cm/sec Med Peak E' Jorge: 8.3 cm/sec MV A max jorge: 103.8 cm/sec E/E' lat: 11.6 E/E' med: 11.3 MV E/A: 0.90 Ao V2 max: 179.1 cm/sec LV V1 max: 143.3 cm/sec MV dec slope: 416.2 cm/sec2 Ao max P.9 mmHg LV V1 max P.2 mmHg Ao V2 mean: 129.4 cm/sec LV V1 mean P.5 mmHg Ao mean P.6 mmHg LV V1 mean: 94.7 cm/sec Ao V2 VTI: 38.2 cm LV V1 VTI: 30.3 cm AV (velocity ratio): 0.79 PA V2 max: 103.9 cm/sec ECHO/Echo Complete Interpretation Summary Mild concentric left ventricular hypertrophy. The left ventricular ejection fraction is 65 %. Stage 1 diastolic dysfunction. The left atrium is mildly enlarged. Hypermobile atrial septum. Mild (1+) mitral valve insufficiency. Mildly dilated aortic root. Ordering Physician: Jihan Laguna Referring Physician: Jossy Natarajan Performed By: Gunter, Tachianna, RDCS
[2025-01-07] MEDS: 0.9% Saline Lock 10 ML Syringe IV ×4 (20:16→23:22)
[2025-01-07] MEDS: Arthritis Pain Compound 60 CLICK TUBE TOPICAL (20:26)
[2025-01-07 21:39] LABS: Troponin T High Sens 4 HR 13 ng/L (<=22)
--- NOTE | 2025-01-07 21:48 | NURSING ---
Blood pressure dropped fairly significantly once PO HS BP meds kicked in. Nipride gtt paused temporarily and then restarted at 0.6 mcg/kg/min per Nerissa LANDSCAPE PAINTER d/t patient feeling sweaty/clammy and looking very pale.
[2025-01-08] VITALS (37 sets, daily range): BP systolic 103–188; BP diastolic 55–141; PULSE 57–74; RESP 11–18; TEMP 36.4–36.7; O2SAT 93–99; BMI 37.5
[2025-01-08] MEDS: 0.9% Saline Lock 10 ML Syringe IV ×4 (01:06→07:08)
[2025-01-08 03:04] LABS: Hematocrit 36.4 % (40-54); Hemoglobin 12.5 g/dL (13.0-16.5); Immature Granulocytes Count 0.040 X10^3/uL (0.0-0.0); Mean Corp Hgb Conc 34.3 g/dL (32-36); Mean Corpuscular Volume 89.2 fL (80-94); Mean Platelet Vol. 10.0 fl (6.2-12.0); NRBC Flagged by Analyzer 0 % (0-5); Platelet Count 257 K/mm3 (150-450); RBC Distribution Width CV 13.3 % (11.6-14.6); RBC Distribution Width SD 43.3 fl (35.1-43.9); Red Blood Count 4.08 M/mm3 (4.6-6.2); White Blood Count 11.4 K/mm3 (4.4-11.0)
[2025-01-08 03:29] LABS: Anion Gap 11 (5-15); BUN 21 mg/dL (4-19); BUN/Creat Ratio 18.8 RATIO (10-20); Calcium,Total 8.7 mg/dL (7.6-11.0); Carbon Dioxide 21.7 mmol/L (21.0-32.0); Chloride 105 mmol/L (98-108); Estimated Creatinine Clearance 93.46 ml/min (50-250); Glucose 119 mg/dL (70-99); Magnesium 2.1 mg/dL (1.5-2.2); Potassium 4.3 mmol/L (3.3-5.1)
--- NOTE | 2025-01-08 07:39 | PN.HOSP_ITS ---
Reason for Visit Chief Complaint: Left knee pain and hypertension Objective Data Objective Data Vital Signs: Vital Signs Temp Pulse Resp BP Pulse Ox O2 Del Method 98.0 F 60 12 188/82 H 99 Room Air 01/08/25 04:00 01/08/25 07:00 01/08/25 07:00 01/08/25 07:00 01/08/25 07:00 01/08/25 07:00 Oxygen Delivery Method Room Air Weight: 261 lb 14.546 oz Body Mass Index (BMI) 37.5 Intake & Output: Intake and Output for Last 24 Hours 01/06/25 01/07/25 01/08/25 23:59 23:59 23:59 Intake Total 559.01 / 559.01 13.15 / 13.15 Output Total 250 / 250 350 / 350 Balance 309.01 / 309.01 -336.85 / -336.85 Lab / Micro Data 01/08/25 03:00 01/08/25 03:00 Labs: Laboratory Results - last 24 hr 01/07/25 14:53: WBC 9.3, RBC 4.67, Hgb 14.1, Hct 41.0, MCV 87.8, MCH 30.2, MCHC 34.4, RDW Std Deviation 42.3, RDW Coeff of Shin 13.2, Plt Count 289, MPV 10.2, Immature Gran % (Auto) 0.600, Neut % (Auto) 60.5, Lymph % (Auto) 24.4, [place] % (Auto) 9.4, Eos % (Auto) 4.0, Baso % (Auto) 1.1 H, Absolute Neuts (auto) 5.6, Absolute Lymphs (auto) 2.26, Nucleated RBC % 0, Sodium 140, Potassium 4.1, Chloride 104, Carbon Dioxide 23.9, Anion Gap 12, BUN 22 H, Creatinine 1.10, Estim Creat Clear Calc 96.16, Est GFR (MDRD) Non-Af 79, BUN/Creatinine Ratio 20.1 H, Glucose 98, Calcium 9.7, Troponin T High Sens 16 01/07/25 18:10: Troponin T Hi Sens 2 Hr 53 H 01/07/25 20:20: Troponin T Hi Sens 4Hr 13 01/08/25 03:00: WBC 11.4 H, RBC 4.08 L, Hgb 12.5 L, Hct 36.4 L, MCV 89.2, MCH 30.6, MCHC 34.3, RDW Std Deviation 43.3, RDW Coeff of Shin 13.3, Plt Count 257, MPV 10.0, Immature Gran % (Auto) 0.400, Neut % (Auto) 67.9, Lymph % (Auto) 20.2, [place] % (Auto) 8.8, Eos % (Auto) 2.0, Baso % (Auto) 0.7, Absolute Neuts (auto) 7.8 H, Absolute Lymphs (auto) 2.31, Nucleated RBC % 0, Sodium 137, Potassium 4.3, Chloride 105, Carbon Dioxide 21.7, Anion Gap 11, BUN 21 H, Creatinine 1.14, Estim Creat Clear Calc 93.46, Est GFR (MDRD) Non-Af 75, BUN/Creatinine Ratio 18.8, Glucose 119 H, Calcium 8.7, Magnesium 2.1, TSH 1.660 Physical Exam Narrative Seen and examined Patient admitted for left knee pain but found to have hypertensive emergency therefore started on IV nitroprusside drip. Patient stated he follows Dr. Denson, nephrology hypertension in [facility] [place] Physical exam General: Alert, Oriented x3, Cooperative HEENT: Atraumatic, PERRLA, EOMI, Normocephalic. Oral: No Gingival or Mucosal Lesions/ Ulcerations Neck: Supple, No JVD, Negative Carotid Bruits Chest wall/Lungs: Air entry equal in bilateral lung bases. No crepitation/rhonchi Cardiovascular: Regular rate and rhythm, Normal S1,S2, No M/G/R Abdomen: Bowel Sounds Present, Soft, Non Tender, Non-Distended : No dysuria. No renal angle tenderness. No suprapubic tenderness. Extremities: No edema, Capillary Refill Less than 3 Seconds Skin: No rashes, No breakdown Musculoskeletal: Bilateral TKR. Left knee pain/RSD. Incisions well-healed. ROM restricted on left knee due to pain. Neurological: Cranial nerves II-XII grossly intact, DTR 2+/4. No acute focal neurological deficit. Psych/Mental Status: Flat affect.. Mild pain Assessment & Plan Assessment/Plan (1) Hypertensive emergency: PLAN: Plan 54-year-old gentleman was admitted with left knee pain for about 1 week with history of RSD. He had TKR in September 2023. Patient was found to have high BP at 218/108. #Hypertensive emergency: Patient currently admitted in ICU. Patient had headache and troponin 16, 53 and 13 as indicator of endorgan impairment in perfusion. Currently on IV nitroprusside drip, 0.03 mcg/kg/min. Patient follows Dr. Denson the metal filer in [place] for his hypertension. On metoprolol 400 mg twice daily and telmisartan 80 mg nightly as home medication. Most recent blood pressure is 135/97, 145/79. Discussed with the transmission engineer Dr. Madhu Barry and agree with the discontinuation of nitroprusside drip. Losartan 100 mg daily first dose now and continue labetalol 400 mg twice daily. Labetalol 20 mg IV as needed ordered for SBP more than 180 mmHg. If blood pressure goes high, SBP more than 200 or DSP more than 120, will start labetalol drip If blood pressure not controlled or still on drip, Dr. Barry wanted to be notified in afternoon to be seen otherwise consult nephrology. TSH 1.66, magnesium 2.1. 2D echo is ordered # Left knee pain, chronic pain syndrome/RSD complicated with recurrent exacerbation since early 1999. As per history, flare goes away after several days at this time) for a week. No acute injury or trauma. - PCP has previously tried to treat flares with prednisone with no improvement so we will avoid steroids - Will schedule Tylenol, as needed medications as well as topical arthritis cream #DVT ppx: Lovenox subcu Total time of the visit including total time spent in counseling or coordination of care, (more than 50% of the total time, spent in obtaining medical information from nurses and other ancillary care providers ,explaining to the patient about labs, imaging, diagnosis and management of active complex medical conditions), discussion with cardiology Dr. Madhu Barry, coordination with the ICU nurse, review of labs and imaging is 35 minutes. Laboratory Results 01/07/25 14:53: WBC 9.3, RBC 4.67, Hgb 14.1, Hct 41.0, MCV 87.8, MCH 30.2, MCHC 34.4, RDW Std Deviation 42.3, RDW Coeff of Shin 13.2, Plt Count 289, MPV 10.2, Immature Gran % (Auto) 0.600, Neut % (Auto) 60.5, Lymph % (Auto) 24.4, [place] % (Auto) 9.4, Eos % (Auto) 4.0, Baso % (Auto) 1.1 H, Absolute Neuts (auto) 5.6, Absolute Lymphs (auto) 2.26, Nucleated RBC % 0, Sodium 140, Potassium 4.1, Chloride 104, Carbon Dioxide 23.9, Anion Gap 12, BUN 22 H, Creatinine 1.10, Estim Creat Clear Calc 96.16, Est GFR (MDRD) Non-Af 79, BUN/Creatinine Ratio 20.1 H, Glucose 98, Calcium 9.7, Troponin T High Sens 16 01/07/25 18:10: Troponin T Hi Sens 2 Hr 53 H 01/07/25 20:20: Troponin T Hi Sens 4Hr 13 01/08/25 03:00: WBC 11.4 H, RBC 4.08 L, Hgb 12.5 L, Hct 36.4 L, MCV 89.2, MCH 30.6, MCHC 34.3, RDW Std Deviation 43.3, RDW Coeff of Shin 13.3, Plt Count 257, MPV 10.0, Immature Gran % (Auto) 0.400, Neut % (Auto) 67.9, Lymph % (Auto) 20.2, [place] % (Auto) 8.8, Eos % (Auto) 2.0, Baso % (Auto) 0.7, Absolute Neuts (auto) 7.8 H, Absolute Lymphs (auto) 2.31, Nucleated RBC % 0, Sodium 137, Potassium 4.3, Chloride 105, Carbon Dioxide 21.7, Anion Gap 11, BUN 21 H, Creatinine 1.14, Estim Creat Clear Calc 93.46, Est GFR (MDRD) Non-Af 75, BUN/Creatinine Ratio 18.8, Glucose 119 H, Calcium 8.7, Magnesium 2.1, TSH 1.660 Charges/Coding Visit Charges Inpatient E&M: 17641 Subs Hosp L3
[2025-01-08] MEDS: Arthritis Pain Compound 60 CLICK TUBE TOPICAL ×2 (09:19→20:16)
--- NOTE | 2025-01-08 09:28 | PCM.CONS.C ---
Assessment & Plan Assessment/Plan (1) Hypertensive emergency: PLAN: Patient presented with blood pressures well over 200 and they have been measured in the 220 range in his home environment. This is temporally correlated with severe pain in his left knee. He has had a history of this remotely in the past. He has been on long-term oral antihypertensive therapies treated through the nephrology department at [facility]. Patient blood pressure came under easy control with IV antihypertensive therapy and is now being transition to his oral agents. His routine blood pressure runs in the 160–170 systolic range in his home environment. Recommend the patient be continued on his home medications. His blood pressure should be maintained in the 150–170 range systolic. He should follow-up with his asp net mvc developer per his previously arranged appointment January 15, 2025. (2) Knee pain, left: QUALIFIERS: Chronicity: unspecified Qualified Code(s): M25.562 - Pain in left knee PLAN: Patient is status post left knee replacement a year and a half ago. He did report he has RSV and this is what started his pain this is the first time he has had it since his knee replacement. I recommend he make certain that this gets followed up if his knee symptoms continue. PLAN: Plan 1. Recommend reinstitute patient's oral antihypertensive therapy. 2. Patient should follow-up with his asp net mvc developer on January 15 per previous arranged appointment. 3. Recommend giving a list of his blood pressures and medications he received here so he can take them with him to the asp net mvc developer office. 4. Please call the [facility] if further assistance is needed. HPI Consult Data Date of Consult: 01/08/25 HPI Narrative Reason for Consultation: Patient with hypertensive emergency treated with IV drip. HPI Narrative: RUDDY NAVARRETE, is a 54 M who presents originally with blood pressure in the 218–220 systolic range. He was placed on IV Nipride and reinstituted on his labetalol 200 mg twice daily. After his oral dose his blood pressures come down in the 130 range with minimal IV medications. The patient denies any chest pain denies any significant shortness of breath denies any PND orthopnea. Denies any syncope or near syncope. He did complain of some headaches in his home environment when his blood pressure was measured in the 220 range. I discussed this in detail with the primary service and recommend that they reinstitute the labetalol and all of his home oral meds. He should continue to follow-up with his nephrology team that cares for his hypertension at the [facility]. We will see the patient on a as needed basis while he is here at [facility]. [facility] Medical History Diverticulitis Hypertension Anxiety and depression Osteoarthritis Nephrolithiasis Home Medications Medication Instructions Recorded Last Taken Type labetalol 200 mg tablet 400 mg PO BID 12/24/22 Unknown History telmisartan 80 mg tablet 80 mg PO QHS 01/07/25 Unknown History Allergy/AdvReac Type Severity Reaction Status Date / Time No Known Allergies Allergy Verified 01/07/25 15:48 Surgical History History of nasal surgery Hx of arthroscopic knee surgery History of repair of ACL Hx of total knee replacement Social History household members: spouse Smoking Status: Heavy Smoker (>10/day) ROS Constitutional Constitutional: Reports as per HPI Eyes Eyes: Reports systems reviewed and no addt'l complaints, except as documented ENT HEENT: Reports systems reviewed and no addt'l complaints, except as documented Cardiovascular Cardiovascular: Reports as per HPI Respiratory/Chest Respiratory/Chest: Reports as per HPI Gastrointestinal Gastrointestinal: Reports systems reviewed and no addt'l complaints, except as documented Genitourinary Genitourinary: Reports as per HPI Musculoskeletal Musculoskeletal: Reports as per HPI Integumentary Integumentary: Reports systems reviewed and no addt'l complaints, except as documented Neurologic Neurologic: Reports systems reviewed and no addt'l complaints, except as documented Psychiatric Psychiatric: Reports systems reviewed and no addt'l complaints, except as documented Endocrine Endocrinology: Reports systems reviewed and no addt'l complaints, except as documented Hematologic/Lymphatic Hematologic/Lymphatic: Reports systems reviewed and no addt'l complaints, except as documented Allergic/Immunologic Allergic/Immunologic: Reports systems reviewed and no addt'l complaints, except as documented Physical Exam Const alert and oriented x3 HEENT normocephalic Eyes EOMs intact bilaterally Neck Neck Narrative: Thick neck Chest Chest Narrative: Increased AP diameter Resp normal respiratory effort and clear to auscultation bilaterally Cardio Rate: regular rate Rhythm: regular rhythm Heart Sounds: S1 normal and S2 normal; Negative for click, gallop or murmur GI GI Narrative: Moderately obese Extremity no pedal edema Extremity Narrative: Noted left knee incisional scar. Neuro Neuro Narrative: Alert and oriented x 3 Psych mental status grossly normal Charges/Coding Visit Charges Inpatient E&M: 84087 Init Hosp L2 Objective Data Vital Signs: Vital Signs Temp Pulse Resp BP Pulse Ox O2 Del Method 98.0 F 60 12 145/79 H 99 Room Air 01/08/25 04:00 01/08/25 07:00 01/08/25 07:00 01/08/25 08:15 01/08/25 07:00 01/08/25 07:00 Oxygen Delivery Method Room Air Weight: 261 lb 14.546 oz Body Mass Index (BMI) 37.5 Intake & Output: Intake and Output for Last 24 Hours 01/06/25 01/07/25 01/08/25 23:59 23:59 23:59 Intake Total 559.01 / 559.01 37.38 / 37.38 Output Total 250 / 250 350 / 350 Balance 309.01 / 309.01 -312.62 / -312.62 Lab / Micro Data Attestation: I reviewed the patient's lab results. 01/08/25 03:00 01/08/25 03:00 Labs: Laboratory Results - last 24 hr 01/07/25 14:53: WBC 9.3, RBC 4.67, Hgb 14.1, Hct 41.0, MCV 87.8, MCH 30.2, MCHC 34.4, RDW Std Deviation 42.3, RDW Coeff of Shin 13.2, Plt Count 289, MPV 10.2, Immature Gran % (Auto) 0.600, Neut % (Auto) 60.5, Lymph % (Auto) 24.4, [place] % (Auto) 9.4, Eos % (Auto) 4.0, Baso % (Auto) 1.1 H, Absolute Neuts (auto) 5.6, Absolute Lymphs (auto) 2.26, Nucleated RBC % 0, Sodium 140, Potassium 4.1, Chloride 104, Carbon Dioxide 23.9, Anion Gap 12, BUN 22 H, Creatinine 1.10, Estim Creat Clear Calc 96.16, Est GFR (MDRD) Non-Af 79, BUN/Creatinine Ratio 20.1 H, Glucose 98, Calcium 9.7, Troponin T High Sens 16 01/07/25 18:10: Troponin T Hi Sens 2 Hr 53 H 01/07/25 20:20: Troponin T Hi Sens 4Hr 13 01/08/25 03:00: WBC 11.4 H, RBC 4.08 L, Hgb 12.5 L, Hct 36.4 L, MCV 89.2, MCH 30.6, MCHC 34.3, RDW Std Deviation 43.3, RDW Coeff of Shin 13.3, Plt Count 257, MPV 10.0, Immature Gran % (Auto) 0.400, Neut % (Auto) 67.9, Lymph % (Auto) 20.2, [place] % (Auto) 8.8, Eos % (Auto) 2.0, Baso % (Auto) 0.7, Absolute Neuts (auto) 7.8 H, Absolute Lymphs (auto) 2.31, Nucleated RBC % 0, Sodium 137, Potassium 4.3, Chloride 105, Carbon Dioxide 21.7, Anion Gap 11, BUN 21 H, Creatinine 1.14, Estim Creat Clear Calc 93.46, Est GFR (MDRD) Non-Af 75, BUN/Creatinine Ratio 18.8, Glucose 119 H, Calcium 8.7, Magnesium 2.1, TSH 1.660 Rhythm Strip Rhythm Strip: Sinus Rhythm Rate: 60 Cardiology Labs/Tests 01/07/25 14:53: WBC 9.3, RBC 4.67, Hgb 14.1, Hct 41.0, MCV 87.8, MCH 30.2, MCHC 34.4, Plt Count 289, MPV 10.2, Immature Gran % (Auto) 0.600, Neut % (Auto) 60.5, Lymph % (Auto) 24.4, [place] % (Auto) 9.4, Eos % (Auto) 4.0, Baso % (Auto) 1.1 H, Absolute Neuts (auto) 5.6, Nucleated RBC % 0, Sodium 140, Potassium 4.1, Chloride 104, Carbon Dioxide 23.9, Anion Gap 12, BUN 22 H, Creatinine 1.10, Est GFR (MDRD) Non-Af 79, BUN/Creatinine Ratio 20.1 H, Glucose 98, Calcium 9.7 01/08/25 03:00: WBC 11.4 H, RBC 4.08 L, Hgb 12.5 L, Hct 36.4 L, MCV 89.2, MCH 30.6, MCHC 34.3, Plt Count 257, MPV 10.0, Immature Gran % (Auto) 0.400, Neut % (Auto) 67.9, Lymph % (Auto) 20.2, [place] % (Auto) 8.8, Eos % (Auto) 2.0, Baso % (Auto) 0.7, Absolute Neuts (auto) 7.8 H, Nucleated RBC % 0, Sodium 137, Potassium 4.3, Chloride 105, Carbon Dioxide 21.7, Anion Gap 11, BUN 21 H, Creatinine 1.14, Est GFR (MDRD) Non-Af 75, BUN/Creatinine Ratio 18.8, Glucose 119 H, Calcium 8.7, Magnesium 2.1 Rhythm: EKG: ECHO: Stress Test: Cardiac Cath: PCI: CT Surgery: Holter monitor: EPS: PPM: CXR: Chest CT Scan: GRICEL Risk Score for UA/STEMI Assesmment (YES = 1) Risk Stratification Applicable: No
--- NOTE | 2025-01-08 11:06 | CASEMGMT ---
CHYNA PETIT Assessment Face to Face with patient for initial transition planning/care coordination assessment. CHYNA PETIT introduced self and role at [facility], pt voices understanding. Pt is A&Ox4 and is resting comfortably in the chair and is calm. Care providers, pharmacy, and demographics verified. Admitting dx: HTN Emergency LACE Strata:1 PCP: Jossy Natarajan Specialists: Dr Denson ([facility]). Pt has a follow up appt scheduled for the with Dr Denson. Pt also has a hx with Dr Delgado ([facility]). [facility] is consulted currently. Preferred Pharmacy: [facility] Insurance: SP. Pt reports that he filled out HCAP form. Sakshi (Pt financial reporting advisor) is seeing the pt today. Prescription Benefit: None, pt states that he uses [facility] LNOK: Hansa (). 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 Pt also states that he has a BP Machine and checks his BP often. HHC/SNF: Denies hx or needs Pt’s goal: Home Plan: Home with pt's support. Follow rx costs. Follow up nephro on the as scheduled. Pt denies any further needs, questions, or concerns at this time. Pt states that his will be able to take great care of him at home. 6-Click score is 22. B Aureliano CLEMENTE CM
--- NOTE | 2025-01-08 14:01 | CASEMGMT ---
Social Work Pt admitted with no health insurance. IGNACIO met with pt to discuss financial concerns. Pt denies any financial concerns at this time. 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 Pt spoke with Sakshi from [facility] and is over income for assistance programs. Pt denies concerns with ability to afford prescriptions and pt often uses [facility]. SW provided pt with written information on prescription assistance programs, [employer], [employer] and [employer]. Pt denies any other needs at this time. DANIELLE Hawk
--- NOTE | 2025-01-08 16:16 | PCM.HOSP.N ---
Hospitalist Note Patient did not require restart of IV labetalol drip. Blood pressure is controlled. Transfer order to PCU.
[2025-01-09] MEDS: 0.9% Saline Lock 10 ML Syringe IV (00:32)
[2025-01-09 02:00] VITALS: BP 124/109; PULSE 51; RESP 13; TEMP 36.6; O2SAT 95
[2025-01-09 06:00] VITALS: BMI 37.5
[2025-01-09 07:30] VITALS: PULSE 59
[2025-01-09 07:32] LABS: Hematocrit 37.9 % (40-54); Hemoglobin 13.0 g/dL (13.0-16.5); Immature Granulocytes Count 0.030 X10^3/uL (0.0-0.0); Mean Corp Hgb Conc 34.3 g/dL (32-36); Mean Corpuscular Volume 90.7 fL (80-94); Mean Platelet Vol. 10.2 fl (6.2-12.0); NRBC Flagged by Analyzer 0 % (0-5); Platelet Count 240 K/mm3 (150-450); RBC Distribution Width CV 13.2 % (11.6-14.6); RBC Distribution Width SD 43.6 fl (35.1-43.9); Red Blood Count 4.18 M/mm3 (4.6-6.2); White Blood Count 8.8 K/mm3 (4.4-11.0)
[2025-01-09 08:00] VITALS: BP 147/87; PULSE 60; RESP 15; TEMP 36.7; O2SAT 98
[2025-01-09 08:35] LABS: Anion Gap 10 (5-15); BUN 23 mg/dL (4-19); BUN/Creat Ratio 16.9 RATIO (10-20); Calcium,Total 9.1 mg/dL (7.6-11.0); Carbon Dioxide 23.2 mmol/L (21.0-32.0); Chloride 104 mmol/L (98-108); Estimated Creatinine Clearance 78.34 ml/min (50-250); Glucose 107 mg/dL (70-99); Potassium 4.5 mmol/L (3.3-5.1)
[2025-01-09] MEDS: Arthritis Pain Compound 60 CLICK TUBE TOPICAL (08:44)
--- NOTE | 2025-01-09 08:55 | PCM.DC ---
Discharge Instructions DC O2, CPAP, BIPAP needs Home O2 Discharge instructions: No Dressing / Incision Discharge Activity: Return to Normal Activity Weight Bearing Status: Weight bearing as tolerated Dressing / Incision Call your doctor if you observe: Fever of 101 or Higher, Coldness, Increased Pain, Numbness or Tingling, Change in Color, Inability to urinate, Inability to have a bowel movement, Shortness of breath, Dizziness, Fainting spells, Swelling in the ankles, Chest pain, Prolonged hiccupping, Increased palpitations (irregular heartbeat) and Calf discomfort Follow Up Care When: IN 2 WEEKS Test Results: Test results from this visit will be discussed in further detail at your follow-up appointment, if applicable. Discharge Plan Admission Admit Date/Time: 01/07/25 18:50 Primary Reason for Your Visit: Hypertensive emergency Attending Provider: Evens Tan Primary Care Provider: Jossy Ntaarajan NP Consulting Providers: Jihan Laguna; Madhu Barry; Luiza Santacruz Instructions Additional Instructions / Restrictions: He has outpatient appointment with cigar head piercer Dr. Denson in [place] on 01/15 Discharge Orders/Prescriptions Prescriptions: New chlorthalidone 12.5 mg tablet 12.5 mg PO DAILY 30 Days Qty: 30 0RF acetaminophen 500 mg Tablet 500 mg PO Q8 Qty: 0 0RF hydrocodone-acetaminophen 5-325 mg tablet 1 tab PO Q8H PRN (Reason: pain) 3 Days Qty: 7 0RF hydralazine 50 mg tablet 50 mg PO BID 30 Days Qty: 60 0RF Continued telmisartan 80 mg tablet 80 mg PO QHS Changed labetalol 200 mg tablet 400 mg PO TID 30 Days Qty: 180 0RF Referrals / Follow Up: Jossy Natarajan NP, [facility] [employer] [facility] [Primary Care Provider, Family Practice] - In 1 Week Disposition Disposition (needs filled in before D/C Order can be placed): Home, Self Care
--- NOTE | 2025-01-09 09:16 | PCM.DC.SUM ---
Providers Date of Admission: 01/07/25 Date of Discharge: 01/09/25 Primary Care Physician: PIOTR Encarnacion Consultations 01/08/25 08:30 Consult: Cardiology Routine Consulting Provider: Madhu Barry Reason for Consult: Hypertensive emergency EMERGENT Consult: No Notified: Yes Date Notified: 01/08/25 Time Notified: 08:30 Method of Notification: Verbal Comments:: if BP on continuous antihypertensive drip 01/08/25 08:40 Consult: Nephrology Routine Consulting Provider: Luiza Santacruz Reason for Consult: Uncontrolled HTN EMERGENT Consult: No Notified: Yes Date Notified: 01/08/25 Time Notified: 08:40 Method of Notification: Text Reason For Visit: HTN EMERGENCY Diagnosis Discharge Diagnosis (1) Hypertensive emergency: Status: Acute Code(s): I16.1 - Hypertensive emergency (2) Knee pain, left: Status: Acute Code(s): M25.562 - Pain in left knee Qualifiers: Chronicity: unspecified Qualified Code(s): M25.562 - Pain in left knee Plan 54-year-old gentleman was admitted with left knee pain for about 1 week with history of RSD. He had TKR in September 2023. Patient was found to have high BP at 218/108. #Hypertensive emergency: Patient currently admitted in ICU. Patient had headache and troponin 16, 53 and 13 as indicator of endorgan impairment in perfusion. Currently on IV nitroprusside drip, 0.03 mcg/kg/min. Patient follows Dr. Denson the student support counselor in [facility] for his hypertension. On metoprolol 400 mg twice daily and telmisartan 80 mg nightly as home medication. Most recent blood pressure is 135/97, 145/79. Discussed with the fashion coordinator Dr. Madhu Barry and agree with the discontinuation of nitroprusside drip. Losartan 100 mg daily first dose now and continue labetalol 400 mg twice daily. Labetalol 20 mg IV as needed ordered for SBP more than 180 mmHg. If blood pressure goes high, SBP more than 200 or DSP more than 120, will start labetalol drip If blood pressure not controlled or still on drip, Dr. Barry wanted to be notified in afternoon to be seen otherwise consult nephrology. TSH 1.66, magnesium 2.1. 01/09: Echo reviewed. Mainly consistent with chronic HFpEF with EF 65%. Blood pressure is controlled. Discharged on chlorthalidone 12.5 g daily, telmisartan, labetalol and hydralazine. He has follow-up with his student support counselor Dr. Denson in [place] on 01/15. BP 147/87, heart rate 60 per med. Patient wants to go home. Mild increase in creatinine from 1.14-1.36 probably due to diuretic. Monitor kidney function. Echocardiogram 01/07/25 19:53 Interpretation Summary Mild concentric left ventricular hypertrophy. The left ventricular ejection fraction is 65 %. Stage 1 diastolic dysfunction. The left atrium is mildly enlarged. Hypermobile atrial septum. Mild (1+) mitral valve insufficiency. Mildly dilated aortic root. # Left knee pain, chronic pain syndrome/RSD complicated with recurrent exacerbation since early 1999. As per history, flare goes away after several days at this time) for a week. No acute injury or trauma. - PCP has previously tried to treat flares with prednisone with no improvement so we will avoid steroids - Will schedule Tylenol, as needed medications as well as topical arthritis cream 01/09: Patient stated that he is not on chronic pain medications or hypertensive emergency in the past as his reflex sympathetic dystrophy was controlled but has come back. He attributes hypotension to his RSD which is not consistent with medical literature. Patient requested for [place]. Patient has been getting Percocet. 7 tablets of [place] given. OARRS reviewed. Overdose risk score 370. #DVT ppx: Lovenox subcu Discharge medication reconciliation done. Discharge follow-up instructions completed. Discharge process discussed with the patient and all questions were answered to patient's satisfaction. Follow with PCP in 1 to 2 weeks Total time spent, exact 35 minutes on discharge meds reconciliation, examination, coordination of care with nurses and ancillary staff, review of imaging and blood test and discussion with the patient on follow-up instructions. Laboratory Results 01/07/25 14:53: WBC 9.3, RBC 4.67, Hgb 14.1, Hct 41.0, MCV 87.8, MCH 30.2, MCHC 34.4, RDW Std Deviation 42.3, RDW Coeff of Shin 13.2, Plt Count 289, MPV 10.2, Immature Gran % (Auto) 0.600, Neut % (Auto) 60.5, Lymph % (Auto) 24.4, Clinch % (Auto) 9.4, Eos % (Auto) 4.0, Baso % (Auto) 1.1 H, Absolute Neuts (auto) 5.6, Absolute Lymphs (auto) 2.26, Nucleated RBC % 0, Sodium 140, Potassium 4.1, Chloride 104, Carbon Dioxide 23.9, Anion Gap 12, BUN 22 H, Creatinine 1.10, Estim Creat Clear Calc 96.16, Est GFR (MDRD) Non-Af 79, BUN/Creatinine Ratio 20.1 H, Glucose 98, Calcium 9.7, Troponin T High Sens 16 01/07/25 18:10: Troponin T Hi Sens 2 Hr 53 H 01/07/25 20:20: Troponin T Hi Sens 4Hr 13 01/08/25 03:00: WBC 11.4 H, RBC 4.08 L, Hgb 12.5 L, Hct 36.4 L, MCV 89.2, MCH 30.6, MCHC 34.3, RDW Std Deviation 43.3, RDW Coeff of Shin 13.3, Plt Count 257, MPV 10.0, Immature Gran % (Auto) 0.400, Neut % (Auto) 67.9, Lymph % (Auto) 20.2, Clinch % (Auto) 8.8, Eos % (Auto) 2.0, Baso % (Auto) 0.7, Absolute Neuts (auto) 7.8 H, Absolute Lymphs (auto) 2.31, Nucleated RBC % 0, Sodium 137, Potassium 4.3, Chloride 105, Carbon Dioxide 21.7, Anion Gap 11, BUN 21 H, Creatinine 1.14, Estim Creat Clear Calc 93.46, Est GFR (MDRD) Non-Af 75, BUN/Creatinine Ratio 18.8, Glucose 119 H, Calcium 8.7, Magnesium 2.1, TSH 1.660 Medications at Discharge Home Medications telmisartan 80 mg tablet 80 mg PO QHS 01/07/25 acetaminophen 500 mg tablet 500 mg PO Q8 #0 tabs 01/09/25 chlorthalidone 12.5 mg tablet 12.5 mg PO DAILY 30 days #30 tabs 01/09/25 hydralazine 50 mg tablet 50 mg PO BID 1 month #60 tabs 10/23/25 hydrocodone-acetaminophen 5-325mg 5mg-325mg 1 tab PO Q8H PRN pain 3 days #7 tabs 01/09/25 labetalol 200 mg tablet 400 mg (2 x 200 mg) PO TID 30 days #180 tabs 01/09/25 Hospital Course Summary of Care Provided Hospital Course: Laboratory Results 01/09/25 07:14: WBC 8.8, RBC 4.18 L, Hgb 13.0, Hct 37.9 L, MCV 90.7, MCH 31.1, MCHC 34.3, RDW Std Deviation 43.6, RDW Coeff of Shin 13.2, Plt Count 240, MPV 10.2, Immature Gran % (Auto) 0.300, Neut % (Auto) 57.7, Lymph % (Auto) 26.0, Clinch % (Auto) 10.3 H, Eos % (Auto) 4.8, Baso % (Auto) 0.9, Absolute Neuts (auto) 5.1, Absolute Lymphs (auto) 2.29, Nucleated RBC % 0, Sodium 137, Potassium 4.5, Chloride 104, Carbon Dioxide 23.2, Anion Gap 10, BUN 23 H, Creatinine 1.36 H, Estim Creat Clear Calc 78.34, Est GFR (MDRD) Non-Af 61, BUN/Creatinine Ratio 16.9, Glucose 107 H, Calcium 9.1 Clinical Impression(s) from Imaging Studies Echocardiogram 01/07/25 19:53 Interpretation Summary Mild concentric left ventricular hypertrophy. The left ventricular ejection fraction is 65 %. Stage 1 diastolic dysfunction. The left atrium is mildly enlarged. Hypermobile atrial septum. Mild (1+) mitral valve insufficiency. Mildly dilated aortic root. Ordering Physician: Jihan Laguna Referring Physician: Jossy Natarajan Performed By: Riddhi Gunter RDCS Physical Exam Narrative Seen and examined Left knee pain is controlled. Blood pressure is controlled. Yesterday did not require labetalol drip. Physical exam General: Alert, Oriented x3, Cooperative HEENT: Atraumatic, PERRLA, EOMI, Normocephalic. Oral: No Gingival or Mucosal Lesions/ Ulcerations Neck: Supple, No JVD, Negative Carotid Bruits Chest wall/Lungs: Air entry equal in bilateral lung bases. No crepitation/rhonchi Cardiovascular: Regular rate and rhythm, Normal S1,S2, No M/G/R Abdomen: Bowel Sounds Present, Soft, Non Tender, Non-Distended : No dysuria. No renal angle tenderness. No suprapubic tenderness. Extremities: No edema, Capillary Refill Less than 3 Seconds Skin: No rashes, No breakdown Musculoskeletal: Bilateral TKR. Left knee pain/RSD. Incisions well-healed. ROM mild restricted on left knee due to pain but has improved Neurological: Cranial nerves II-XII grossly intact, DTR 2+/4. No acute focal neurological deficit. Psych/Mental Status: Flat affect.. Mild pain Weight / BMI Weight Weight: 261 lb 14.546 oz Body Mass Index (BMI) 37.5 ABG / Lab / Microbiology Data 01/09/25 07:14 01/09/25 07:14 Laboratory: Laboratory Results - last 24 hr 01/09/25 07:14: WBC 8.8, RBC 4.18 L, Hgb 13.0, Hct 37.9 L, MCV 90.7, MCH 31.1, MCHC 34.3, RDW Std Deviation 43.6, RDW Coeff of Shin 13.2, Plt Count 240, MPV 10.2, Immature Gran % (Auto) 0.300, Neut % (Auto) 57.7, Lymph % (Auto) 26.0, Clinch % (Auto) 10.3 H, Eos % (Auto) 4.8, Baso % (Auto) 0.9, Absolute Neuts (auto) 5.1, Absolute Lymphs (auto) 2.29, Nucleated RBC % 0, Sodium 137, Potassium 4.5, Chloride 104, Carbon Dioxide 23.2, Anion Gap 10, BUN 23 H, Creatinine 1.36 H, Estim Creat Clear Calc 78.34, Est GFR (MDRD) Non-Af 61, BUN/Creatinine Ratio 16.9, Glucose 107 H, Calcium 9.1 Radiography Diagnostic Testing: Radiology Impression Echocardiogram 01/07/25 19:53 Interpretation Summary Mild concentric left ventricular hypertrophy. The left ventricular ejection fraction is 65 %. Stage 1 diastolic dysfunction. The left atrium is mildly enlarged. Hypermobile atrial septum. Mild (1+) mitral valve insufficiency. Mildly dilated aortic root. Ordering Physician: Jihan Laguna Referring Physician: Jossy Natarajan Performed By: Riddhi Gunter RDCS D/C Instructions Weight Bearing Status: Weight bearing as tolerated Call your doctor if you observe: Fever of 101 or Higher, Coldness, Increased Pain, Numbness or Tingling, Change in Color, Inability to urinate, Inability to have a bowel movement, Shortness of breath, Dizziness, Fainting spells, Swelling in the ankles, Chest pain, Prolonged hiccupping, Increased palpitations (irregular heartbeat) and Calf discomfort DC O2, CPAP, BIPAP Needs Home O2 Discharge instructions: No When: IN 2 WEEKS Meaningful Use Info Meaningful Use Meaningful Use Diagnoses (Choose all that apply): None applicable Discharge Plan Admission Admit Date/Time: 01/07/25 18:50 Primary Reason for Your Visit: Hypertensive emergency Attending Provider: Evens Tan Primary Care Provider: Jossy Natarajan [employer] Consulting Providers: Jihan Laguna; Madhu Barry; Luiza Santacruz Instructions Additional Instructions / Restrictions: He has outpatient appointment with student support counselor Dr. Denson in [place] on 01/15 Discharge Orders/Prescriptions Prescriptions: New chlorthalidone 12.5 mg tablet 12.5 mg PO DAILY 30 Days Qty: 30 0RF acetaminophen 500 mg Tablet 500 mg PO Q8 Qty: 0 0RF hydrocodone-acetaminophen 5-325 mg tablet 1 tab PO Q8H PRN (Reason: pain) 3 Days Qty: 7 0RF hydralazine 50 mg tablet 50 mg PO BID 30 Days Qty: 60 0RF Continued telmisartan 80 mg tablet 80 mg PO QHS Changed labetalol 200 mg tablet 400 mg PO TID 30 Days Qty: 180 0RF Referrals / Follow Up: Jossy Natarajan NP, [employer] [Primary Care Provider, Family Practice] - In 1 Week Disposition Disposition (needs filled in before D/C Order can be placed): Home, Self Care Charges/Coding Visit Charges Inpatient E&M: 06170 Disch Hosp >30min
--- NOTE | 2025-01-09 09:46 | CASEMGMT ---
Social Work SW met with pt during interdisciplinary rounds. Pt states physician has been in and plans to discharge today. 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 Pt states he will call his son for transportation home. Pt declines concerns with cost of medications and that he will be able to fill new prescriptions today. Pt denies any discharge needs at this time. DANIELLE Hawk
== END 2025-01-09 10:40 | disposition home or self-care (01) | DRG 305 ==
LOC: ED 18:27 → ICU 18:59
PROVIDERS: Admitting Provider Internal Medicine; Emergency Provider Emergency Medicine; PCP Nurse Practitioner Family; Visit Provider Internal Medicine
DX: I16.1 Hypertensive emergency (principal); G90.522 Complex regional pain syndrome I of left lower limb; I50.32 Chronic diastolic (congestive) heart failure; I11.0 Hypertensive heart disease with heart failure; F17.200 Nicotine dependence, unspecified, uncomplicated; G89.4 Chronic pain syndrome; Z96.653 Presence of artificial knee joint, bilateral; Z79.899 Other long term (current) drug therapy
CPT/HCPCS: 36415; 80048; 83735; 84443; 84484; 85025; 93005; 93306; 99285; 99406; Q9957; A4216; J2405